=== PATIENT | female | born 2000 | race Two or more races ===

== ENCOUNTER 2025-01-04 09:44 | Outpatient (OUT) | payer BC, OTHER, SELFPAY ==
--- OUTSIDE RECORDS SUMMARY | 2023-12-31 10:00 | XMS_ITS | Continuity of Care Document ---
Author Organization [facility] Address [address] [place] [address] Phone Care Team Providers Care Weather Strip Installer Name Role Phone Edna Rodriguez Unavailable Unavailable [...] TOBACCO NON-USER [facility] [place] Dis Dec Resin Composite 1s; Posterior Prophylaxis Adult Moderate Risk [employer] [facility] [place] Dis Dec Oral Hygiene Instruction PSYTX PT&/FAMILY 60 MINUTES PSYTX PT&/FAMILY 60 MINUTES OFFICE/OUTPATIENT VISIT, EST HG A1C LEVEL < 7.0% TOBACCO NON-USER PSYTX PT&/FAMILY 60 MINUTES OFFICE/OUTPATIENT VISIT, EST MED LIST DOCD IN [facility] RVW MEDS BY RX/DR IN [facility] TOBACCO NON-USER PSYTX PT&/FAMILY 60 MINUTES Intraoral-complete Series (bw) Comp Oral Eval New/estab Patient 2023 Oral Hygiene Instruction PSYTX PT&/FAMILY 60 MINUTES OFFICE/OUTPATIENT VISIT, EST DIAST BP 80-89 MM HG SYST BP < 130 MM HG MED LIST DOCD IN [facility] RVW MEDS BY RX/DR IN [facility] TOBACCO NON-USER PSYTX PT&/FAMILY 60 MINUTES PSYTX PT&/FAMILY 60 MINUTES Advance Directives Directive Yes / No Effective Date File Name No Information Encounters Encounter Description Practice Location Reason(s) For Visit Diagnoses Date Provider Providers Copied on Encounter PSYTX PT&/FAMILY 60 MINUTES [facility], [address] [place] [address], [id number] , [place] [phone] [facility] Psychosis, unspecified psychosis typePTSD (post-traumatic stress disorder)Body mass index [BMI] 27.0-27.9, adultVitamin D deficiency, unspecified 4 Olman Bishop. [address] [place] [address], [id number], [place]. [phone] OFFICE/OUTPA TIENT VISIT, [facility], [address] [place] [address], [id number] , [place] tel:[phone] [facility] Telehealth (chief complaint) Psychosis, unspecified psychosis typePTSD (post-traumatic stress disorder)Body mass index [BMI] 27.0-27.9, adultVitamin D deficiency, unspecified 4 Bellstephen Martinodith. [address] [place], [address], [place]. tel: [phone] [facility], [address] [place] [address], [id number] , [place] tel: [phone] Dental Clinic fill (chief complaint) Encounter for screening for dental disorders 4 Jonh Parr. [address], [place], [id number] , [place]. tel: [phone] [facility], [address] [place] [address], [id number] , [place] tel: [phone] [facility] Dental Clinic [place] (chief complaint) Encounter for screening for dental disorders 4 Jonh Parr. [address], [place], [id number] , [place]. tel: [phone] PSYTX PT&/FAMILY 60 MINUTES [facility], [address] [place] [address], [id number] , [place] tel: [phone] [facility] Psychosis, unspecified psychosis typePTSD (post-traumatic stress disorder)Body mass index [BMI] 27.0-27.9, adultVitamin D deficiency, unspecified 4 Olman JENA Edna. [address] [place], [address], [place]. tel: [phone] PSYTX PT&/FAMILY 60 MINUTES [facility], [address] [place] [address], [id number] , [place] tel: [phone] [facility] Psychosis, unspecified psychosis typePTSD (post-traumatic stress disorder)Body mass index [BMI] 27.0-27.9, adultVitamin D deficiency, unspecified 4 Olman Snydercy. [address] [place] [address], [id number], [place]. tel: [phone] OFFICE/OUTPA TIENT VISIT, EST [facility], [address] [place] [address], [id number] , [place] tel: [phone] [facility] Telehealth (chief complaint) Psychosis, unspecified psychosis typePTSD (post-traumatic stress disorder)Body mass index [BMI] 27.0-27.9, adultVitamin D deficiency, unspecified 4 [facility][Note 2]. [address] [place] [address], [id number], . tel: [phone] PSYTX PT&/FAMILY 60 MINUTES [facility], [address] [place] [address], [id number] , [place] tel: [phone] [facility] Psychosis, unspecified psychosis typePTSD (post-traumatic stress disorder)Body mass index [BMI] 27.0-27.9, adult 4 Olman Bishop. [address] [place] [address], [id number], [place]. tel: [phone] OFFICE/OUTPA TIENT VISIT, [facility], [address] [place] [address], [id number] , [place] tel: [phone] [facility] Telehealth (chief complaint) Psychosis, unspecified psychosis typePTSD (post-traumatic stress disorder)Body mass index [BMI] 27.0-27.9, adult 4 [facility][Note 2]. [address] [place] [address], [id number], [place]. tel: [phone] PSYTX PT&/FAMILY 60 MINUTES [facility], [address] [place] [address], [id number] , [place] tel: [phone] [facility] Psychosis, unspecified psychosis typePTSD (post-traumatic stress disorder)Need for hepatitis C screening testScreening for diabetes mellitusScreening for endocrine disorderScreening for lipid disordersScreening for HIV (human immunodeficiency virus)Body mass index [BMI] 26.0-26.9, adultBody mass index [BMI] 27.0-27.9, adult 4 Olman Bishop. [address] [place] [address], [id number], [place]. tel: [phone] [facility], [address] [place] [address], [id number] , [place] tel: [phone] Dental Clinic DN (chief complaint) Body mass index [BMI] 27.0-27.9, adultEncounter for screening for dental disorders 4 Jonh Baumannal. [address], [place], [id number] , [place]. tel: [phone] [facility], [address] [place] [address], [id number] , [place] tel: [phone] [facility] Encounter for routine general gynecological examination without abnormal findingEncounter for gynecological examination (general) (routine) without abnormal findings 4 Ray Hurley. [address] [place] [address], [id number], [place]. tel: [phone] PSYTX PT&/FAMILY 60 MINUTES [facility], [address] [place] [address], [id number] , [place] tel: [phone] [facility] Psychosis, unspecified psychosis typePTSD (post-traumatic stress disorder)Need for hepatitis C screening testScreening for diabetes mellitusScreening for endocrine disorderScreening for lipid disordersScreening for HIV (human immunodeficiency virus)Body mass index [BMI] 26.0-26.9, adultBody mass index [BMI] 27.0-27.9, adult 4 Olman Bishop. [address] [place] [address], [id number], [place]. tel: [phone] OFFICE/OUTPA TIENT VISIT, EST [facility], [address] [place] [address], [id number] , [place] tel: [phone] [facility] Behavioral health (chief complaint) Need for hepatitis C screening testScreening for diabetes mellitusScreening for endocrine disorderScreening for lipid disordersScreening for HIV (human immunodeficiency virus)Body mass index [BMI] 26.0-26.9, adultPsychosis, unspecified psychosis typePTSD (post-traumatic stress disorder)Body mass index [BMI] 27.0-27.9, adult 4 Ray Hurley. [address] [place] [address], [address], [place]. tel: [phone] PSYTX PT&/FAMILY 60 MINUTES [facility], [address], [place], [id number] , [place] tel: [phone] [facility] Schizophrenia, unspecified 4 Olman Bishop. [address] [place], [address], [place]. tel: [phone] PSYTX PT&/FAMILY 60 MINUTES [facility], [address], [place], [id number] , [place] tel: [phone] [facility] Schizophrenia, unspecified 4 Olman Bishop. [address] [place], [address], [place]. tel: [phone] Family History Family Member Type Diagnosis Age [...] Order HIV 1/0/ 2 Ag/Ab with Reflex ([id number]), Ordered on: Ordered Future Order: Lab Order Hemoglob in A1c ([id number]), Ordered on: Ordered Future Order: Lab Order Lipid Pa jose alejandro ([id number]), Ordered on: Ordered Future Order: Lab Order TSH Rfx on Abnormal to Free T4 ([id number]), Ordered on: Ordered Future Order: Lab Order Vitamin D, 25-Hydroxy ([id number]), Ordered on: Ordered Future Order: Lab Order Vitamin B12 and Folate ([id number]), Ordered on: Ordered Future Order: Lab Order Ammonia, Plasma ([id number]), Ordered on: Ordered Future Order: Lab Order CBC With Differential/Platelet ([id number]), Ordered on: Ordered Future Order: Lab Order Comp. Me tabolic Panel (14) ([id number]), Ordered on: Ordered Future Order: Lab Order Abram gleason Drug Analysis, Ur ([id number]), Ordered on: Ordered Future Order: Lab Order HCV Anti body W/ Reflex To Quantitative Real Time Pcr ([id number]), Ordered on: Ordered History Of Present Illness [...] Edna Thurman. Pt sees Dr. Rodriguez at [facility] for PCP. Pt is UTD on Pap. [facility] in [place]. Pt denies homicidal thoughts. Admits to occasional [...]
--- OUTSIDE RECORDS SUMMARY | 2024-12-24 13:00 | XMS_ITS | Encounter Summary ---
Author Organization [facility] Address [address] [place] [address] Care Team Providers Care Back Tender Pulp Drier Name Role Phone Dru Rodriguez DO Primary Care Provider [phone] Dru Rodriguez DO Unavailable [phone] Encounter Details Date Type Department Care Team (Latest Contact Info) Description 12/24/2024 1:00 PM EDT Ancillary Procedure [facility] [place] [facility] [address] [place] [address] [place] [id number] Missed menses; Positive urine test ([facility]) Social History Tobacco Use Types Packs/Day Years Used Date Smoking Tobacco: Never Smokeless Tobacco: Never Alcohol Use Standard Drinks/Week Comments Not Currently 0 (1 standard drink = 0.6 oz pur e alcohol) Socially Humiliation, Afraid, Rape, and Kick questionnair e Answer Date Recorded Within the last year, have y ou been afraid of your partner or ex-partner? No 03/11/2023 Within the last year, have y ou been humiliated or emotionally abused in other ways by your partner or ex-partner? No Within the last year, have y ou been kicked, hit, slapped, or otherwise physically hurt by your partner or ex-partner? No 03/11/2023 Within the last year, have y ou been raped or forced to have any kind of sexual activity by your partner or ex-partner? No 03/11/2023 Social Connection and Isolat ion Panel [NHANES] Answer Date Recorded In a typical week, how many times do you talk on the phone with family, friends, or neighbors? More than three times a week 03/11/2023 How often do you get togethe r with friends or relatives? Twice a week 03/11/2023 How often do you attend chur or synagogue services? 1 to 4 times per year 03/11/2023 Do you belong to any clubs o r organizations such as scientology groups, unions, fraternal or athletic groups, or school groups? No 03/11/2023 How often do you attend meet ings of the clubs or organizations you belong to? Never 03/11/2023 Are you , , di vorced, , never , or living with a partner? 03/11/2023 AUDIT-C Answer Date Recorded Q1: How often do you have a drink containing alc ohol? Monthly or less 03/11/2023 Q2: How many drinks containi ng alcohol do you have on a typical day when you are drinking? 3 or 4 03/11/2023 Q3: How often do you have si x or more drinks on one occasion? Less than monthly 03/11/2023 Overall Financial Resource Strain (CARDIA) Answe r Date Recorded How hard is it for you to pa y for the very basics like food, housing, medical care, and heating? Somewhat hard 03/11/2023 PHQ-2 Answer Date Recorded Patient Health Questionnaire-2 Score 0 09/17/2024 [facility] - Occupational Stress Questionnaire Answer Date Recorded Do you feel stress - tense, restless, nervous, or anxious, or unable to sleep at night because your mind is troubled all the time - these days? Very much 03/11/2023 Exercise Vital Sign Answer Date Recorde d On average, how many days pe r week do you engage in moderate to strenuous exercise (like a brisk walk)? 4 days 03/11/2023 On average, how many minutes do you engage in exercise at this level? 80 min 03/11/2023 Hunger Vital Sign Answer Date Recorded Within the past 12 months, y ou worried that your food would run out before you got the money to buy more. Sometimes true Within the past 12 months, t he food you bought just didn't last and you didn't have money to get more. Never true 07/2022 PRAPARE - Transportation Answer Date Re corded In the past 12 months, has l ack of transportation kept you from medical appointments or from getting medications? No 07/2022 In the past 12 months, has l ack of transportation kept you from meetings, work, or from getting things needed for daily living? No 03/11/2023 Housing Stability Vital Sign Answer Jerome e Recorded In the last 12 months, was t here a time when you were not able to pay the mortgage or rent on time? No 03/11/2023 In the last 12 months, how many places have you lived? 1 03/11/2023 In the last 12 months, was t here a time when you did not have a steady place to sleep or slept in a jail (including now)? No 03/11/2023 Estimated Date of Delivery Comme nts Yes 08/06/2025 Based on last me nstrual period of 10/30/2024 Sex and Gender Information Value Date Recorded Sex Assigned at Female 11/08/2022 1:10 PM EDT Legal Sex Female 6:51 PM EDT Gender Identity Female 11/08/2022 1:10 PM EDT Sexual Orientation Bisexual 11/08/2022 1: 10 PM EDT documented as of this encounter Plan of Treatment Upcoming Encounters Date Type Department Care Team (Late st Contact Info) Description 01/25/2025 9:20 AM EDT Routine [facility] [address] [place] [id number] Kolton Cao DO [address] [place] [address] documented as of this encounter Procedures Procedure Name Priority Date/Time Associated Diagnosis Comments US OB TRANSVAGINAL Routine 12/24/2024 1: 17 PM EDT Missed menses Positive urine test ([facility]) documented in this encounter Results * US OB transvaginal (12/24/2024 1:17 PM EDT) Anatomical Region Laterality Modality Body Ultrasound 12/24/2024 1:25 PM EDT Impressions 12/24/2024 1:29 PM EDT Findings consistent with a live intrauterine gestation, current sonographic age of 7 weeks and days 3 resulting in an estimated date of delivery of August 09, 2025. TRANSCRIBED BY: ELECTRONICALLY SIGNED BY: Darius Adams MD Narrative 12/24/2024 1:29 PM EDT FINDINGS: A single intrauterine gestational sac is present. No subchorionic hemorrhage. A single pole is present. Normal heart rate at 153 beats per minute. Yolk sac also is seen. Current sonographic age is 7 weeks and 3 days based on the crown-rump length measurement of 1.3 cm. Based on this age, current estimated date of delivery is August 09, 2025. No pelvic fluid or adnexal mass present. Cervix closed 4.5 cm length. Procedure Note Darius Adams MD - 12/24/2024 FINDINGS: A single intrauterine gestational sac is present. No subchorionichemorrhage. A single pole is present. Normal heart rate at153 beats per minute. Yolk sac also is seen. Current sonographic age is7 weeks and 3 days based on the crown-rump length measurement of 1.3 cm.Based on this age, current estimated date of delivery is August 09, 2025.No pelvic fluid or adnexal mass present. Cervix closed 4.5 cm length. IMPRESSION: Findings consistent with a live intrauterine gestation, currentsonographic age of 7 weeks and days 3 resulting in an estimated date ofdelivery of August 09, 2025. TRANSCRIBED BY: ELECTRONICALLY SIGNED BY: Darius Adams MD us Kolton Cao DO IM OB US PROCEDURES Final Resul t documented in this encounter Visit Diagnoses Diagnosis Missed menses Positive urine test ([facility]) documented in this encounter Care Teams Back Tender Pulp Drier Relationship Specialty Start Date End Date Dru Rodriguez DO [address] [place] [address] PCP - General Family Medicine 10/22/22 Dru Rodriguez DO [address] [place] [address] PCP - Medical [place] [employer] 03/10/23 06/09/99 documented as of this encounter
--- OUTSIDE RECORDS SUMMARY | 2024-12-24 13:30 | XMS_ITS | Encounter Summary ---
Author Organization [facility] Address [address] [place] [address] Care Team Providers Care Cook Mess Name Role Phone Dru Rodriguez DO Primary Care Provider [phone] Dru Rodriguez DO Unavailable [phone] Reason for Visit * Reason Comments Amenorrhea Encounter Details Date Type Department Care Team (Late Contact Info) Description 12/24/2024 1:30 PM EDT Initial [facility] [address] [place] [address] [place] [address] [place]: [id number] Social History Tobacco Use Types Packs/Day Years [...] How often do you attend chur or religion services? 1 to 4 times per year 03/11/2023 Do you belong to any clubs o r organizations such as anglican groups, unions, fraternal or athletic groups, or [...] Recorded Patient Health Questionnaire-2 Score 0 09/17/2024 [facility]ational Stress Questionnaire Answer [...] place to sleep or slept in a senior living (including now)? No 03/11/2023 Estimated Date of Delivery Comme nts Yes 08/06/2025 Based on last me nstrual period of 10/30/2024 Sex and Gender Information Value Date Recorded Sex Assigned at Female 11/08/2022 1:10 PM EDT Legal Sex Female 6:51 PM EDT Gender Identity Female 11/08/2022 1:10 PM EDT Sexual Orientation Bisexual 11/08/2022 1: 10 PM EDT documented as of this encounter Last Filed Vital Signs Vital Sign Reading Time Taken Comments Blood Pressure 118/78 12/24/2024 1:59 PM EDT Pulse - - Temperature - - Respiratory Rate - - Oxygen Saturation - - Inhaled Oxygen Concentration - - Weight 63.2 kg (139 lb 4 oz) 12/24/2024 1:59 PM EDT Height - - Body Mass Index 29.1 09/17/2024 3:24 PM EDT documented in this encounter Progress Notes * Nicolasa Bailey MA - 12/24/2024 1:30 PM EDT Reason for Appointment: Patient ID: Dalia Shaw is a 24 y.o. female who presents for Amenorrhea Patient presents today for a Nurse OB Intake appointment. Patient is Unknown with a Estimated Date of Delivery: None noted. OB History Para Term AB Living 1 SAB IAB Ectopic Multiple Live Births # Outcome Date GA Lbr Gold/2nd Weight Sex Type Anes PTL Lv 1 Current Current Medications: has a current medication list which includes the following prescription(s): vit w/[id number], dexcom g6 transmitter, humalog, omnipod 5 [id number] pods gen 5, and lantus solostar. Medical History: Active Ambulatory Problems Diagnosis Date Noted Bulging lumbar disc 11/08/2022 Chronic fatigue 11/08/2022 Lumbago with sciatica, left side 11/08/2022 Sciatica 11/08/2022 Celiac disease in pediatric patient (HCC) 05/23/2016 Generalized anxiety disorder 01/01/2017 Mild intermittent asthma ([facility]) 05/23/2016 Panic disorder without agoraphobia 01/01/2017 Biliary dyskinesia 11/08/2022 Type 1 diabetes mellitus without complication ([facility]) 02/04/2023 Type 1 diabetes mellitus with hypoglycemia and without coma ([facility]) 02/04/2023 PTSD (post-traumatic stress disorder) 09/06/2023 Mixed obsessional thoughts and acts 09/13/2023 Diabetes type 1, controlled ([facility]) 01/25/2011 Resolved Ambulatory Problems Diagnosis Date Noted Blood blister 11/08/2022 Diabetic ketoacidosis associated with type 1 diabetes mellitus ([facility]) 02/22/2017 Hypoglycemia due to type 1 diabetes mellitus ([facility]) 11/08/2022 Other chronic pain 11/08/2022 Type 1 diabetes mellitus with ketoacidosis without coma ([facility]) 08/01/2016 Acute renal insufficiency 02/18/2017 Mechanical breakdown of insulin pump 02/18/2017 Right upper quadrant pain 11/08/2022 Chronic cholecystitis 11/29/2022 Past Medical History: Diagnosis Date Awareness under anesthesia 2015 covid and DKA 05/2021 Exercise-induced asthma (HCC) Lactose intolerance Postoperative wound infection Family History Problem Relation Name Age of Onset Drug abuse Mother Mary Melendez Asthma Father Bryan Melendez Arthritis Father Bryan Melendez Stroke Paternal Grandfather Cancer Other Stroke Other Stroke Maternal Grandmother Jackie Ashley Diabetes Sister Pj Meelndez Social History Tobacco Use Smoking status: Never Smokeless tobacco: Never Vaping Use Vaping status: Never Used Substance Use Topics Alcohol use: Not Currently Comment: Socially Drug use: Yes Frequency: 2.0 times per week Types: Marijuana Comment: Has not used any drugs other than those for medical reasons for the past 12 months Past Surgical History: Procedure Laterality Date CHOLECYSTECTOMY 11/2022 COLONOSCOPY 2015 normal EGD 2013 normal Allergies Allergen Reactions Amoxicillin Mouth irritation Vitals: Estimated body mass index is 29.1 kg/m?? as calculated from the following: Height as of 09/17/24: 4' 10 . Weight as of this encounter: 139 lb 4 oz. BP: 118/78 Patient's last menstrual period was 10/30/2024. Assessment/Plan Diagnoses and all orders for this visit: Missed menses - Type and screen; Future - ABO/Rh; Future - CBC and differential - Hemoglobin A1c - RPR - Rubella antibody, IgG - Hepatitis B surface antigen - Hepatitis C antibody - HIV-1 and HIV-2 antibodies - Urine culture - POCT , urine manually resulted - POCT urinalysis dipstick manually resulted , unspecified gestational age ([facility]HS-HCC) - Type and screen; Future - ABO/Rh; Future - CBC and differential - Hemoglobin A1c - RPR - Rubella antibody, IgG - Hepatitis B surface antigen - Hepatitis C antibody - HIV-1 and HIV-2 antibodies - Rapid drug screen, urine; Future Encounter for supervision of normal first in first trimester ([facility]) - Rapid drug screen, urine; Future OB Intake: Patient presents today for first OB visit. Patients history has been reviewed in great detail including any potential risks. Patient signed consent forms and patient desires testing in both trimesters. Patient currently has no complaints and has been advised to drink 6-8 glasses of water a day, eatno raw or undercooked meat, and stay away from [facility]. Patient has also been advised to not change litter boxes and eat 6 small meals a day. Patient has been consulted regarding the do's and don'ts ofpregnancy. Patient was given labs and all questions and concerns were answered. Follow Up: Patient is to have labs drawn at directed and return to office for initial OB appointment with provider. Patient may call office as needed with any concerns or questions. Nurse Visit Completed by: Nicolasa Bailey MA documented in this encounter Plan of Treatment Upcoming Encounters Date Type Department Care Team (Ariana st Contact Info) Description 01/25/2025 9:20 AM EDT Routine [facility] [address] [facility] [address] Kolton Cao DO [address] [place] [address] [place] [address] Scheduled Orders Name Type Priority Associated Diagnoses Orde r Schedule Type and screen Lab Routine Missed menses , unspecified gestational age ([facility]-HCC) Expected: 12/24/2024 (Approximate), Expires: 12/24/2025 ABO/Rh Lab Routine Missed menses , unspecified gestational age ([facility]HS-HCC) Expected: 12/24/2024 (Approximate), Expires: 12/24/2025 CBC and differential Lab Routine Missed menses , unspecified gestational age ([facility]HS-HCC) Ordered: 12/24/2024 Hemoglobin A1c Lab Routine Missed menses , unspecified gestational age (HHS-HCC) Ordered: 12/24/2024 RPR Lab Routine Missed menses , unspecified gestational age (HHS-HCC) Ordered: 12/24/2024 Rubella antibody, IgG Lab Routine Missed menses , unspecified gestational age (HHS-HCC) Ordered: 12/24/2024 Hepatitis B surface antigen Lab Routine Missed menses , unspecified gestational age (HHS-HCC) Ordered: 12/24/2024 Hepatitis C antibody Lab Routine Missed menses , unspecified gestational age (HHS-HCC) Ordered: 12/24/2024 HIV-1 and HIV-2 antibodies Lab Routine Missed menses , unspecified gestational age (HHS-HCC) Ordered: 12/24/2024 Urine culture Microbiology Routine Missed menses Ordered: 12/24/2024 Rapid drug screen, urine Lab Routine , unspecified gestational age (HHS-HCC) Encounter for supervision of normal first in first trimester ([facility]-HCC) Expected: 12/24/2024 (Approximate), Expires: 12/24/2025 documented as of this encounter Procedures Procedure Name Priority Date/Time Associated Diagnosis Comments POCT , URINE Routine 12/24/2024 2:02 PM EDT Missed menses POCT URINALYSIS DIPSTICK Routine 12/24/2024 2:01 PM EDT Missed menses documented in this encounter Results * (ABNORMAL) POCT , urine manually resulted (12/24/2024 2:02 PM EDT) Preg Test, Ur Positive Negative Urine 12/24/2024 2:02 PM EDT Kolton Kiley DO POINT OF CARE TEST ENTER/EDIT OR DERABLES Final Result * (ABNORMAL) POCT urinalysis dipstick manually resulted (12/24/2024 2:01 PM EDT) Color, UA Yellow Clarity, UA Clear Glucose, UA Negative Negative - 2000(110) ++++ mg/dL Bilirubin, UA Negative Negative - 4(70) +++ mg/dL Ketones, UA Negative Negative - 160(16) ++++ mg/dL Spec Grav, UA 1.010 1 - 1.03 Blood, UA Negative Negative - 50 Guy/mcL pH, UA 7.0 5 - 9 Protein, UA Negative Negative - 2000(20) ++++ mg/dL Urobilinogen, UA 0.2 0.2 - 12 mg/dL Leukocytes, UA Positive Negative - 500+++ Danny/mcL Comment:Small Nitrite, UA Negative Negative - Positive Urine 12/24/2024 2:01 PM EDT [facility] POINT OF CARE TEST ENTER/EDIT OR DERABLES Final Result documented in this encounter Visit Diagnoses Diagnosis Missed menses , unspecified gestational age ([facility]) Encounter for supervision of normal first in first trimester ([facility]) documented in this encounter Care Teams Cook Mess Relationship Specialty Start Date End Date Dru Rodriguez DO [address] [place] [address] PCP - General Family Medicine 10/22/22 Dru Rodriguez DO [address] [facility] [address] [place] [id number] PCP - Medical [employer] 03/10/23 06/09/99 documented as of this encounter
--- OUTSIDE RECORDS SUMMARY | 2025-01-04 09:53 | XMS_ITS | Encounter Summary ---
Author Organization [facility] Address [address] [place] [address] Care Team Providers Care Casting Molder Name Role Phone Dru Rodriguez DO Primary Care Provider [phone] Luisana Rodriguez DO Unavailable [phone] Dru Rodriguez DO Unavailable [phone] Encounter Details Date Type Department Care Team (Late Contact Info) Description 11/19/2022 Abstract [facility] [address] [id number] Jc Dacosta, DO [address] [address] Social History Tobacco Use Types Packs/Day Years Used Date Smoking Tobacco: Never Alcohol Use Standard Drinks/Week Comments Never 0 (1 standard drink = 0.6 oz pure alcohol) Drinks 1-2 cups of caffeine per day Comments Unknown Sex and Gender Information Value Date Recorded Sex Assigned at Female 11/08/2022 1:10 PM EDT Legal Sex Female 6:51 PM EDT Gender Identity Female 11/08/2022 1:10 PM EDT Sexual Orientation Bisexual 11/08/2022 1: 10 PM EDT COVID-19 Exposure Response Date Recorded In the last 10 days, have yo u been in contact with someone who was confirmed or suspected to have Coronavirus/COVID-19? No / Unsure 11/18/2022 11:08 PM EDT documented as of this encounter Plan of Treatment Upcoming Encounters Date Type Department Care Team (Late Contact Info) Description 01/25/2025 9:20 AM EDT Routine [facility] [address] [facility] [place] [id number] Kolton Cao DO [address] [facility] [place] [address] documented as of this encounter Visit Diagnoses Not on filedocumented in this encounter Care Teams Casting Molder Relationship Specialty Start Date End Date Dru Rodriguez DO [address] [place] [address] PCP - General Family Medicine 10/22/22 Luisana Rodriguez DO [address] [place] [address] PCP - [facility] 12/08/22 Dru Rodriguez, DO [address] [place] [address] PCP - Medical [employer] 03/10/23 06/09/99 documented as of this encounter
--- OUTSIDE RECORDS SUMMARY | 2025-01-04 09:54 | XMS_ITS | Encounter Summary ---
Author Organization [facility] Address [id number] [address] [place] [address] Care Team Providers Care Manager Respiratory Name Role Phone Dru Rodriguez Primary Care Provider [phone] Reason for Visit * Reason Comments Med Refill Encounter Details Date Type Department Care Team (Late st Contact Info) Description 05/28/2023 Refill [facility] [address] [place] [id number] Jenelle Lopez, LOGISTICS ANALYTICS MANAGER-[facility] [address] [place] [address] Encounter for initial prescription of contraceptive pills Social History Tobacco Use Types Packs/Day Years Used Date Smoking Tobacco: Never Smokeless Tobacco: Never Alcohol Use Standard Drinks/Week Comments Yes 0 (1 standard drink = 0.6 oz pur e alcohol) social Childcare Answer Date Recorded Childcare Unknown 11/19/2018 Employment Answer Date Recorded Employment Unknown 11/19/2018 Hunger Screening Answer Date Recorded Within the past 12 months we worried whether our food would run out before we got money to buy more. Never True 02/03/2023 Within the past 12 months th e food we bought just didn't last and we didn't have money to get more. Never True 02/03/2023 Purpose - Life Answer Date Recorded Purpose and direction in life Unknown Comments No Sex and Gender Information Value Date Recorded Sex Assigned at Not on file Legal Sex Female 11:58 AM EDT Gender Identity Not on file Sexual Orientation Not on file documented as of this encounter Plan of Treatment Not on file documented as of this encounter Visit Diagnoses Diagnosis Encounter for initial prescription of contraceptive pills documented in this encounter Additional Health Concerns Assessment Noted Time A Body Mass Index follow-up plan has been documented for the patient 04/02/2022 1:00 PM EDT documented as of this encounter Care Teams Manager Respiratory Relationship Specialty Start Date End Date Dru Rodriguez DO [address] [place] [address] PCP - General 01/01/17 documented as of this encounter
--- OUTSIDE RECORDS SUMMARY | 2025-01-04 09:54 | XMS_ITS | Clinical Summary ---
Author Organization [facility] Address [address] [place] [address] Care Team Providers Care Laboratory Coordinator Name Role Phone Dru Rodriguez DO Primary Care Provider [phone] Dru Rodriguez DO Unavailable [phone] Allergies Active Allergy Reactions Criticality Noted Date Comments Amoxicillin Low 05/23/2016 Mouth irritation Medications Continuous Blood Gluc Transmit (Dexcom G6 transmitter) miscIndications:T ype 1 diabetes mellitus without complication (HCC) Inject 1 each under the skin every 3 (three) months. Use as instructed 1 each 3 023 Active insulin glargine (Lantus SoloStar) 100 UNIT/ML penIndications:Ty pe 1 diabetes mellitus without complication (HCC) inject 22 units subcutaneously once daily 3 mL 1 024 Active Additional Information Patient taking differently: inject 22 units subcutaneously once daily- for pump failure, Reported on 09/17/2024 Insulin Disposable Pump (Omnipod 5 [id number] Pods Gen 5) miscIndications:T ype 1 diabetes mellitus without complication (HCC) Inject 1 each under the skin every 3 (three) days CHANGE POD EVERY 3 DAYS DIRECTED 30 each 3 025 Active HumaLOG 100 UNIT/ML solutionIndicatio ns:Type 1 diabetes mellitus without complication (HCC) USE PER INSULIN PUMP INSTRUCTION MAX OF 80 UNITS DAILY 30 mL 025 Active Vit w/Rn-Cdjtsjtns-OD (PNV PO) Take by mouth Active cholecalciferol (Vitamin D-3) 125 MCG (5000 UT) tablet Take 125 mcg by mouth Daily 024 2024 Discontinued ondansetron ODT (Zofran-ODT) 4 MG disintegrating tabletIndications :Nausea Take 1 tablet (4 mg) by mouth every 8 (eight) hours if needed for nausea or vomiting 30 tablet 1 2024 Discontinued clindamycin (Cleocin T) 1 % lotionIndications :Acne vulgaris Apply thin layer to affected areas on the body, once daily, 30 day supply 60 mL 2 024 2024 Discontinued tretinoin (Retin-A) 0.025 % creamIndications: Acne vulgaris Apply 1.5 g to face, once daily at evening/night time, 30 day supply 45 g 2 2024 Discontinued Active Problems Problem Noted Date Diagnosed Date Mixed obsessional thoughts and acts 09/13/2023 PTSD (post-traumatic stress disorder) 09/06/2023 Type 1 diabetes mellitus without complication Assessment & Plan (03/11/2024 7:46 PM EDT): During the appointment today all pertinent labs, imaging, health maintenance, and glucose readings were reviewed. Encouraged to check blood glucose throughout the day with some fasting and some PP readings. They are to bring their glucose meter/cgm in to all appointments. All of the patients questions, treatment options, and current care plan and goals were discussed. A copy of this along with pertinent instructions were given to the patient at the end of the appointment. The patient voices understanding of all of this and is to call in between appointments if they have any problems or questions. Dalia Tobar is doing very well and encouraged on this. , Will stay on current medications. , The patient is wearing their cgm on a daily basis and making decisions in regards to adjusting insulin daily as well for at least the last 60 days , Instructions given today include: Pump instructions and Dietary education Assessment & Plan (08/22/2023 12:07 PM EDT): During the appointment today all pertinent labs, imaging, health maintenance, and glucose readings were reviewed. Encouraged to check blood glucose throughout the day with some fasting and some PP readings. They are to bring their glucose meter/cgm in to all appointments. All of the patients questions, treatment options, and current care plan and goals were discussed. A copy of this along with pertinent instructions were given to the patient at the end of the appointment. The patient voices understanding of all of this and is to call in between appointments if they have any problems or questions. Dalia Tobar control is stable overall. , Will stay on current medications. , The patient is wearing their cgm on a daily basis and making decisions in regards to adjusting insulin daily as well for at least the last 60 days , Discussed dietary changes at length. Encouraged to limit simple carbs and focus more on healthy protein/fat with all meals and snacks. They should also avoid any sugary drinks. She has to avoid sugary drinks and get more protein in her diet. She is to work on bolusing before all meals and snacks. Assessment & Plan (05/19/2023 11:30 AM EST): During the appointment today all pertinent labs, imaging, health maintenance, and glucose readings were reviewed. Encouraged to check blood glucose throughout the day with some fasting and some PP readings. They are to bring their glucose meter/cgm in to all appointments. All of the patients questions, treatment options, and current care plan and goals were discussed. A copy of this along with pertinent instructions were given to the patient at the end of the appointment. The patient voices understanding of all of this and is to call in between appointments if they have any problems or questions. Dalia Shaw is doing very well and encouraged on this. , Will stay on current medications. Assessment & Plan (02/04/2023 11:29 AM EDT): During the appointment today all pertinent labs, imaging, health maintenance, and glucose readings were reviewed. Encouraged to check blood glucose throughout the day with some fasting and some PP readings. They are to bring their glucose meter/cgm in to all appointments. All of the patients questions, treatment options, and current care plan and goals were discussed. A copy of this along with pertinent instructions were given to the patient at the end of the appointment. The patient voices understanding of all of this and is to call in between appointments if they have any problems or questions. Dalia Elizabeth Liliannatalie is doing very well and encouraged on this. , Instructions given today include: Pump instructions and Dietary education. She is to keep working on counting carbs/portion sizes and will stay with current pump settings. Type 1 diabetes mellitus with hypoglycemia and w ithout coma 02/04/2023 Bulging lumbar disc 11/08/2022 Chronic fatigue 11/08/2022 Lumbago with sciatica, left side 11/08/2022 Sciatica 11/08/2022 Biliary dyskinesia 11/08/2022 Generalized anxiety disorder 01/01/2017 Panic disorder without agoraphobia 01/01/2017 Celiac disease in pediatric patient 05/23/2016 Mild intermittent asthma 05/23/2016 Diabetes type 1, controlled 01/25/2011 Estimated Date of Delivery Comme nts Yes 08/06/2025 Based on last me nstrual period of 10/30/2024 Resolved Problems Problem Noted Date Diagnosed Date Resolved Date Chronic cholecystitis 11/29/20222023 Blood blister 11/08/2022 08/05/2023 Hypoglycemia due to type 1 diabetes mellitus 3 02/04/2023 Other chronic pain 11/08/2022 Right upper quadrant pain 11/08/2022 Diabetic ketoacidosis associ ated with type 1 diabetes mellitus 02/22/2017 02/04/2023 Acute renal insufficiency 02/18/2017 Mechanical breakdown of insulin pump 02/18/2017 08/05/2023 Type 1 diabetes mellitus wit h ketoacidosis without coma 08/01/2016 02/04/2023 Encounters Date Type Department Care Team Description 12/24/2024 1:30 PM EDT Initial [facility] [address] [place] [phone] [place]: 7w6d 12/24/2024 1:00 PM EDT Ancillary Procedure [facility] [address] [facility] [place] [phone] Missed menses; Positive urine test ([facility]) 12/17/2024 Travel 12/16/2024 Abstract [facility] [address] [place] [address] Dru Rodriguez, DO 11/03/2024 Abstract [facility] [address] [place] [address] Dru Rodriguez, DO 11/03/2024 Orders Only [facility] [address] [place] [address] Dru Rodriguez, DO 11/03/2024 Abstract [facility] [address] [place] [address] Dru Rodriguez, DO 11/03/2024 Abstract [facility] [address] [place] [address] Dru Rodriguez, DO 11/03/2024 Abstract [facility] [address] [place] [address] Dru Rodriguez, DO 11/03/2024 Abstract [facility] [address] [place] [address] Dru Rodriguez, DO 11/03/2024 Abstract [facility] [address] [place] [address] Dru Rodriguez, DO 10/15/2024 Telephone [facility] [address] [place] [address] Rocío Lombardo LPN no show fee 10/08/2024 Refill [facility] [address] [place] [address] Luisana Rodriguez, Type 1 diabetes mellitus without complication (HCC) from Last 3 Months Immunizations Immunization Administration Dates Next Due DTP 03/18/2008 DTaP 03/02/2004 DTaP, Unspecified 12/20/2005, 3,2001,08/05 HPV, Quadrivalent 08/27/2013, 4,04/06/2013,03/02 Hep B, Adolescent or Pediatric 11/24/2002,2001,2001 HiB, unspecified 11/24/2002,2001, 2 Hib (PRP-T) 03/02/2004 IPV 03/18/2008,12/20/2005,2001 Influenza, injectable, quadrivalent 07/05/2020 Influenza, injectable, quadr ivalent, preservative free 06/12/2023,05/11/2022 MMR 03/18/2008,12/20/2005,11/24/2002 Meningococcal MCV4P 01/22/2018,03/02/2013 PPD Test 06/12/2023, 3,05/18/2022,05/11 Pneumococcal Conjugate PCV 7 2001 Polio, Unspecified 11/24/2002,2001 Tdap 05/30/2023,03/02/2013 Varicella 05/30/2023, 3,03/18/2008,12/20 Family History Medical History Relation Name Comments Arthritis Father rByan Melendez Asthma Father Bryan Melendez Stroke Maternal Grandmother Jackie Ramirez Drug abuse Mother Mary Melendez Cancer Other Stroke Other Stroke Paternal Grandfather Diabetes Sister 2 Malkavernon Melendez Relation Name Status Comments Brother x3 Father Bryan Melendez Alive Maternal Grandmother Jackie Ramirez Mother Mary Melendez Other Half Brother Paternal Grandfather Sister 1 x2 Sister 2 Sharonaldair Al Social History Tobacco Use Types Packs/Day Years Used Date Smoking Tobacco: Never Smokeless Tobacco: Never Tobacco Cessation:Counseling Given: No Alcohol Use Standard Drinks/Week Comments Not Currently [...] How often do you attend chur or congregational services? 1 to 4 times per year 03/11/2023 Do you belong to any clubs o r organizations such as anabaptist groups, unions, fraternal or athletic groups, or [...] Recorded Patient Health Questionnaire-2 Score 0 09/17/2024 [facility] [place] [facility] Occupat [facility] - Occupational Stress [...] place to sleep or slept in a snf (including now)? No 03/11/2023 Estimated Date of Delivery Comme nts Yes 08/06/2025 Based on last me nstrual period of 10/30/2024 Sex and Gender Information Value Date Recorded Sex Assigned at Female 11/08/2022 1:10 PM EDT Legal Sex Female 6:51 PM EDT Gender Identity Female 11/08/2022 1:10 PM EDT Sexual Orientation Bisexual 11/08/2022 1: 10 PM EDT Last Filed Vital Signs Vital Sign Reading Time Taken Comments Blood Pressure 118/78 12/24/2024 1:59 PM EDT Pulse 90 09/17/2024 3:24 PM EDT Temperature 36.7 C (98 F) 09/17/2024 3:24 PM EDT Respiratory Rate - - Oxygen Saturation 97% 09/17/2024 3:24 PM EDT Inhaled Oxygen Concentration - - Weight 63.2 kg (139 lb 4 oz) 12/24/2024 1:59 PM EDT Height 147.3 cm (4' 10 ) 09/17/2024 3:24 PM EDT Body Mass Index 29.1 09/17/2024 3:24 PM EDT Plan of Treatment Upcoming Encounters Date Type Department Care Team (Late st Contact Info) Description 01/25/2025 9:20 AM EDT Routine [facility] [address] [facility] [place] [address] Kolton Cao, [address] [place] [address] Health Maintenance Due Date Last Done Comments Diabetes: Retinopathy Screening 06/30/2021 0 Diabetes: Urine Protein Screening 11/10/2024 11/11/2023, 11/11/2023, 11/11/2023, Additional history exists Diabetes: Hemoglobin A1C 01/28/2025 025, 03/10/2024, 11/11/2023, Additional history exists Influenza Vaccine (#1) 2025 4, 06/12/2023, 05/11/2022, Additional history exists Goals Goal Patient Goal Type Associated Problems Recent Progress Patient-Stated? Author Reminders Care Plan OB Reminders No Open Scheduling, Background Procedures Procedure Name Priority Date/Time Associated Diagnosis Comments POCT , URINE Routine 12/24/2024 2:02 PM EDT Missed menses POCT URINALYSIS DIPSTICK Routine 12/24/2024 2:01 PM EDT Missed menses US OB TRANSVAGINAL Routine 12/24/2024 1: 17 PM EDT Missed menses Positive urine test [facility]) HEMOGLOBIN A1C Routine 10/28/2024 1:01 PM EDT MICROALBUMIN / CREATININE URINE RATIO Routine 11/11/2023 2:01 PM EDT COLOR FUNDUS PHOTOGRAPHY - OU - BOTH EYES Routine 06/30/2019 12:00 PM EST from Last 3 Months or Most Recently Relevant to Health Maintenance Results * (ABNORMAL) POCT , urine manually resulted (12/24/2024 2:02 PM EDT) Preg Test, Ur Positive Negative Urine 12/24/2024 2:02 PM EDT [facility] DO POINT OF CARE TEST ENTER/EDIT [...] - Positive Urine 12/24/2024 2:01 PM EDT [facility] POINT OF CARE TEST ENTER/EDIT OR DERABLES Final Result * US OB transvaginal (12/24/2024 1:17 PM [...] BY: ELECTRONICALLY SIGNED BY: Darius Adams MD Kolton Cao DO IMG OB US PROCEDURES Final Resul t * Hemoglobin A1c (10/28/2024 1:01 PM EDT) Blood Venous blood specimen / Unknown us Dru Rodriguez DO LAB BLOOD ORDERABLES Final Result * Microalbumin / creatinine urine ratio (11/11/2023 2:01 PM EDT) MICROALBUMIN, URINE 1.0 0.0 - 1.9 mg/dL [facility] URINE CREAT 183.98 mg/dL [facility] ALB/CREAT RATIO 5.4 0.0 - 30.0 mg/g creat [facility] Comment:PERFORMED AT [facility] [address],[place] [address] 11/11/2023 2:01 PM EDT 11/11/2023 2:03 PM EDT us Luisana Rodriguez DO LAB URINE ORDERABLES Final Result [facility] * Color Fundus Photography - OU - Both Eyes (06/30/2019 12:00 PM EST) Anatomical Region Laterality Modality Head Fundus Photograp hy 06/30/2019 12:0 0 PM EST Narrative 07/01/2019 12:00 PM EST PERFORMED AT [facility] LOCATION:[id number] Procedure Note CONVERSION, GENERIC - 10/24/2022 PERFORMED AT [facility] LOCATION:[id number] us Dru Rodriguez DO OPHTH PHOTOGRAPHY Final Re sult from Last 3 Months or Most Recently Relevant to Health Maintenance Additional Health Concerns Active Problems Noted Date Diagnosed Date OB Reminders 12/31/2024 Insurance [facility] Care Teams Laboratory Coordinator Relationship Specialty Start Date End Date Dru Rodriguez DO [address] [place] [address] PCP - General Family Medicine 10/22/22 Dru Rodriguez DO [address] [place] [address] PCP - Medical [place] [employer] 03/10/23 06/09/99
--- OUTSIDE RECORDS SUMMARY | 2025-01-04 09:54 | XMS_ITS | Encounter Summary ---
Author Organization [facility] Address [address] [place] [address] Care Team Providers Care Equipment Hire Manager Name Role Phone Dru Rodriguez DO Primary Care Provider [phone] Dru Rodriguez DO Unavailable [phone] Encounter Details Date Type Department Care Team (Late st Contact Info) Description 11/03/2024 [facility] [address] [facility] [address] [place] [phone] Dru Rodriguez, DO [address] [facility] [address] [place] [address] Social History Tobacco Use Types Packs/Day Years [...] 03/11/2023 How often do you attend chur ch or restorationism services? 1 to 4 times per year 03/11/2023 Do you belong to any clubs o r organizations such as jehovah's witness groups, unions, fraternal or athletic groups, or [...] Recorded Patient Health Questionnaire-2 Score 0 09/17/2024 [facility] - Occupational Stress Questionnaire Answer Date Recorded [...] place to sleep or slept in a halfway (including now)? No 03/11/2023 Comments Unknown Sex and Gender Information Value [...] 01/25/2025 9:20 AM EDT Routine [facility] [address] [facility] [address] Kolton Cao DO [address] [facility] [address] [place], [place] [address] documented as of this encounter Visit Diagnoses Not on filedocumented in this encounter Care Teams Equipment Hire Manager Relationship Specialty Start Date End Date Dru Rodriguez DO [address] [place] [address] PCP - General Family Medicine 10/22/22 Dru Rodriguez DO [address] [place] [address] PCP - Medical [place] [employer] 03/10/23 06/09/99 documented as of this encounter
--- OUTSIDE RECORDS SUMMARY | 2025-01-04 09:54 | XMS_ITS | Encounter Summary ---
Author Organization [facility] Address [address] [place] [address] Care Team Providers Care Solutions Executive Cloud Sales Name Role Phone Dru Rodriguez DO Primary Care Provider + [phone] Luisana Rodriguez DO Unavailable [phone] Dru Rodriguez DO Unavailable [phone] Encounter Details Date Type Department Care Team (Late st Contact Info) Description 09/25/2022 Abstract [facility] [address] [id number] Jc Dacosta DO [address] [address] Social History Tobacco Use Types Packs/Day Years Used Date Smoking Tobacco: Never Assessed Comments Unknown Sex and Gender Information Value [...] AM EDT Routine [facility] [address] [facility] [place] [phone] Kolton Cao DO [address] [facility] [address] [place], [place] [address] documented as of this encounter Visit Diagnoses Not on filedocumented in this encounter Care Teams Solutions Executive Cloud Sales Relationship Specialty Start Date End Date Dru Rodriguez DO [address] [place] [address] PCP - General Family Medicine 10/22/22 Luisana Rodriguez DO [address] [place] [address] PCP - [facility] 12/08/22 Dru Rodriguez DO [address] [place] [address] PCP - Medical [facility] 03/10/23 06/09/99 documented as of this encounter
--- OUTSIDE RECORDS SUMMARY | 2025-01-04 09:54 | XMS_ITS | Encounter Summary ---
Author Organization [facility] Address [address] [place] [address] Care Team Providers Care Metal Sander Name Role Phone Dru Rodriguez DO Primary Care Provider [phone] Dru Rodriguez DO Unavailable [phone] Encounter Details Date Type Department Care Team (Late st Contact Info) Description 11/03/2024 [facility] [address] [facility] [address] [place] [address] Dru Rodriguez, DO [address] [facility] [address] [place] [address] Social History Tobacco Use Types Packs/Day Years [...] often do you attend chur ch or adventist services? 1 to 4 times per year 03/11/2023 Do you belong to any clubs o r organizations such as hindu groups, unions, fraternal or athletic groups, or [...] Recorded Patient Health Questionnaire-2 Score 0 09/17/2024 [facility] - Occupational Stress Questionnaire Answer Date Recorded [...] place to sleep or slept in a custodial (including now)? No 03/11/2023 Comments Unknown Sex [...] AM EDT Routine [facility] [address] [facility] [address] Kolton Cao DO [address] [facility] [address] [place] [place], [place] [address] documented as of this encounter Visit Diagnoses Not on filedocumented in this encounter Care Teams Metal Sander Relationship Specialty Start Date End Date Dru Rodriguez DO [address] [place] [address] PCP - General Family Medicine 10/22/22 Dru Rodriguez DO [address] [place] [address] PCP - Medical [place] [employer] 03/10/23 06/09/99 documented as of this encounter
--- OUTSIDE RECORDS SUMMARY | 2025-01-04 09:54 | XMS_ITS | Encounter Summary ---
Author Organization [facility] Address [address] [place] [address] Care Team Providers Care Senior Research Project Manager Name Role Phone Dru Rodriguez DO Primary Care Provider [phone] Dru Rodriguez DO Unavailable [phone] Encounter Details Date Type Department Care Team (Late st Contact Info) Description 11/03/2024 [facility] [address] [facility] [address] [place] [address] Dru Rodriguez, DO [address] [facility] [address] [place] [address] Social History Tobacco Use Types Packs/Day Years [...] often do you attend chur ch or gnosticist services? 1 to 4 times per year 03/11/2023 Do you belong to any clubs o r organizations such as pentecostalism groups, unions, fraternal or athletic groups, or [...] Recorded Patient Health Questionnaire-2 Score 0 09/17/2024 [facility] - Occupational Stress Questionnaire Answer Date [...] place to sleep or slept in a half-way (including now)? No 03/11/2023 Comments Unknown Sex [...] AM EDT Routine [facility] [address] [facility] [place] [address] Kolton Cao DO [address] [facility] [address] [place] [place], [place] [address] documented as of this encounter Visit Diagnoses Not on filedocumented in this encounter Care Teams Senior Research Project Manager Relationship Specialty Start Date End Date Dru Rodriguez DO [address] [place] [address] PCP - General Family Medicine 10/22/22 Dru Rodriguez DO [address] [place] [address] PCP - Medical [place] [employer] 03/10/23 06/09/99 documented as of this encounter
--- OUTSIDE RECORDS SUMMARY | 2025-01-04 09:54 | XMS_ITS | Encounter Summary ---
Author Organization [facility] Address [address] [place] [address] Care Team Providers Care Workers Compensation Claims Assistant Name Role Phone Dru Rodriguez DO Primary Care Provider [phone] Dru Rodriguez DO Unavailable [phone] Encounter Details Date Type Department Care Team (Late st Contact Info) Description 12/16/2024 [facility] [address] [facility] [address] [place] [address] Dru Rodriguez, DO [address] [facility] [address] [place] [address] Social History Tobacco Use Types Packs/Day Years [...] often do you attend chur ch or mu-ism services? 1 to 4 times per year 03/11/2023 Do you belong to any clubs o r organizations such as faith groups, unions, fraternal or athletic groups, or [...] Recorded Patient Health Questionnaire-2 Score 0 09/17/2024 [facility] - Occupational Stress Questionnaire Answer Date [...] AM EDT Routine [facility] [address] [facility] [place] [address] Kolton Cao DO [address] [facility] [address] [place], [place] [address] documented as of this encounter Visit Diagnoses Not on filedocumented in this encounter Care Teams Workers Compensation Claims Assistant Relationship Specialty Start Date End Date Dru Rodriguez DO [address] [place] [address] PCP - General Family Medicine 10/22/22 Dru Rodriguez DO [address] [place] [address] PCP - Medical [place] [employer] 03/10/23 06/09/99 documented as of this encounter
--- OUTSIDE RECORDS SUMMARY | 2025-01-04 09:54 | XMS_ITS | Encounter Summary ---
Author Organization [facility] Address [address] [place] [address] Care Team Providers Care Attendant Arcade Name Role Phone Dru Rodriguez DO Primary Care Provider + [phone] Luisana Rodriguez DO Unavailable +[phone] Dru Rodriguez DO Unavailable [phone] Encounter Details Date Type Department Care Team (Late st Contact Info) Description 04/30/2023 [facility] [address] [facility] [address] [place] [address] Dru Rodriguez, DO [address] [facility] 230 [place] [address] Social History Tobacco Use Types Packs/Day Years [...] often do you attend chur ch or yarsanism services? 1 to 4 times per year 03/11/2023 Do you belong to any clubs o r organizations such as moravian groups, unions, fraternal or athletic groups, or [...] Date Recorded Patient Health Questionnaire-2 Score 0 03/11/2023 [facility]ational [facility] Questionnaire Answer Date [...] place to sleep or slept in a residential (including now)? No 03/11/2023 Comments Unknown Sex [...] AM EDT Routine [facility] [address] [facility] [place] [address] Kolton Cao DO [address] [facility] [place] [address] documented as of this encounter Visit Diagnoses Not on filedocumented in this encounter Care Teams Attendant Arcade Relationship Specialty Start Date End Date Dru Rodriguez DO [address] [place] [address] PCP - General Family Medicine 10/22/22 Luisana Rodriguez DO [address] [place] [address] PCP - [facility] 12/08/22 Dru Rodriguez DO [address] [place] [address] PCP - Medical [place] [employer] 03/10/23 06/09/99 documented as of this encounter
--- OUTSIDE RECORDS SUMMARY | 2025-01-04 09:54 | XMS_ITS | Encounter Summary ---
Author Organization [facility] Address [address] [place] [address] Care Team Providers Care Blast Furnace Auxiliaries Supervisor Name Role Phone Dru Rodriguez DO Primary Care Provider + [phone] Luisana Rodriguez DO Unavailable [phone] Dru Rodriguez DO Unavailable [phone] Encounter Details Date Type Department Care Team (Late st Contact Info) Description 03/11/2023 Abstract [facility] [address] [facility] [address] [place] [address] Dru Rodriguez, DO [address] [facility] 230 [place] [address] Social History Tobacco Use Types Packs/Day Years [...] often do you attend chur ch or hinduism services? 1 to 4 times per year 03/11/2023 Do you belong to any clubs o r organizations such as advent groups, unions, fraternal or athletic groups, or [...] Recorded Patient Health Questionnaire-2 Score 0 03/11/2023 [facility] Questionnaire Answer Date [...] suspected to have Coronavirus/COVID-19? No / Unsure 03/11/2023 12:57 AM EDT documented as of this encounter Functional Status * Audit-C Score Answer Date of Assessment Author 3 03/11/2023 12:56 AM EDT Virgilio, Generic * Q1: How often do you have a drink containing alcohol? Answer Date of Assessment Author Monthly or less 03/11/2023 12:56 AM EDT Virgilio Generic * Q2: How many drinks containing alcohol do you have on a typical day when you are drinking? Answer Date of Assessment Author 3 or 4 03/11/2023 12:56 AM EDT Virgilio, Generic * Q3: How often do you have six or more drinks on one occasion? Answer Date of Assessment Author Less than monthly 03/11/2023 12:56 AM EDT Mychar t, Generic * Over the past 2 weeks, how often have you been bothered by any of the following problems? Question Answer Date of Assessment Author Little interest or pleasure in doing things Not at all 03/11/2023 10:23 AM EDT Lesa Boss LPN Feeling down, depressed, or hopeless Not at all 03/11/2023 10:23 AM EDT Susana Boss LPN Patient Health Questionnaire-2 Score 0 03/11/2023 10:23 AM EDT Olya Boss LPN documented as of this encounter Plan of Treatment Upcoming Encounters Date Type Department Care Team (Late st Contact Info) Description 01/25/2025 9:20 AM EDT Routine [facility] [address] [facility] [place] [address] Kolton Cao DO [address] [facility] [address] [place], [place] [id number] documented as of this encounter Visit Diagnoses Not on filedocumented in this encounter Care Teams Blast Furnace Auxiliaries Supervisor Relationship Specialty Start Date End Date Dru Rodriguez DO [address] [place] [address] PCP - General Family Medicine 10/22/22 Luisana Rodriguez DO [address] [place] [address] PCP - [facility] 12/08/22 Dru Rodriguez DO [address] [place] [address] PCP - Medical [place] [employer] 03/10/23 06/09/99 documented as of this encounter
--- OUTSIDE RECORDS SUMMARY | 2025-01-04 09:54 | XMS_ITS | Encounter Summary ---
Author Organization [facility] Address [address] [place] [address] Care Team Providers Care Handy Worker Name Role Phone Dru Rodriguez DO Primary Care Provider +1- [phone] Dru Rodriguez DO Unavailable [phone] Encounter Details Date Type Department Care Team (Late st Contact Info) Description 11/03/2024 [facility] [address] [facility] [address] [place] [address] Dru Rodriguez, DO [address] [facility] [address] [place] [address] Social History Tobacco Use Types Packs/Day Years [...] often do you attend chur ch or gnosticism services? 1 to 4 times per year [...] Recorded Patient Health Questionnaire-2 Score 0 09/17/2024 [facility] - Occupational Stress Questionnaire Answer Date [...] a senior living (including now)? No 03/11/2023 Comments Unknown Sex [...] AM EDT Routine [facility] [address] [facility] [address] Kolton Cao DO [address] [facility] [address] [place], [place] [address] documented as of this encounter Visit Diagnoses Not on filedocumented in this encounter Care Teams Handy Worker Relationship Specialty Start Date End Date Dru Rodriguez DO [address] [place] [address] PCP - General Family Medicine 10/22/22 Dru Rodriguez DO [address] [place] [address] PCP - Medical [place] [employer] 03/10/23 06/09/99 documented as of this encounter
--- OUTSIDE RECORDS SUMMARY | 2025-01-04 09:54 | XMS_ITS | Encounter Summary ---
Author Organization [facility] Address [address] [place] [address] Care Team Providers Care Motor Mechanic Name Role Phone Dru Rodriguez DO Primary Care Provider +1- [phone] Dru Rodriguez DO Unavailable [phone] Encounter Details Date Type Department Care Team (Late st Contact Info) Description 11/03/2024 Abstract [facility] [address] [facility] [address] [place] [address] Dru Rodriguez, DO [address] [facility] [address] [place] [address] Social History Tobacco Use Types Packs/Day Years [...] often do you attend chur ch or jehovah's witness services? 1 to 4 times per year 03/11/2023 Do you belong to any clubs o r organizations such as presybeterian groups, unions, fraternal or athletic groups, or [...] Questionnaire-2 Score 0 09/17/2024 [facility] - Occupational Stress Questionnaire Answer Date Recorded [...] AM EDT Routine [facility] [address] [facility] [place] [address] Kolton Cao DO [address] [facility] [address] [place], [place] [address] documented as of this encounter Visit Diagnoses Not on filedocumented in this encounter Care Teams Motor Mechanic Relationship Specialty Start Date End Date Dru Rodriguez DO [address] [place] [address] PCP - General Family Medicine 10/22/22 Dru Rodriguez DO [address] [place] [address] PCP - Medical [place] [employer] 03/10/23 06/09/99 documented as of this encounter
--- OUTSIDE RECORDS SUMMARY | 2025-01-04 09:54 | XMS_ITS | Encounter Summary ---
Author Organization [facility] Address [address] [place] [address] Care Team Providers Care Voice Network Administrator Name Role Phone Dru Rodriguez DO Primary Care Provider + [phone] Luisana Rodriguez DO Unavailable [phone] Dru Rodriguez DO Unavailable [phone] Encounter Details Date Type Department Care Team (Late st Contact Info) Description 04/30/2023 Abstract [facility] [address] [facility] [address] [place] [address] Dru Rodriguez, DO [address] [facility] 230 [place] [address] Social History Tobacco Use Types Packs/Day Years [...] often do you attend chur ch or oriental orthodox services? 1 to 4 times per year 03/11/2023 Do you belong to any clubs o r organizations such as mormonism groups, unions, fraternal or athletic groups, or [...] Recorded Patient Health Questionnaire-2 Score 0 03/11/2023 [facility]ational [facility] Questionnaire Answer Date [...] place to sleep or slept in a nursing home (including now)? No 03/11/2023 Comments Unknown Sex [...] AM EDT Routine [facility] [address] [facility] [place] [address] Kolton Cao DO [address] [facility] [place] [address] documented as of this encounter Visit Diagnoses Not on filedocumented in this encounter Care Teams Voice Network Administrator Relationship Specialty Start Date End Date Dru Rodriguez DO [address] [place] [address] PCP - General Family Medicine 10/22/22 Luisana Rodriguez DO [address] [place] [address] PCP - [facility] 12/08/22 Dru Rodriguez DO [address] [place] [address] PCP - Medical [place] [employer] 03/10/23 06/09/99 documented as of this encounter
--- OUTSIDE RECORDS SUMMARY | 2025-01-04 09:54 | XMS_ITS | Encounter Summary ---
Author Organization [facility] Address [address] [place] [address] Care Team Providers Care Spindle Tester Name Role Phone Dru Rodriguez DO Primary Care Provider + [phone] Luisana Rodriguez DO Unavailable [phone] Dru Rodriguez DO Unavailable [phone] Encounter Details Date Type Department Care Team (Late st Contact Info) Description 02/04/2023 Abstract [facility] [address] [facility] 230 [place] [address] Luisana Rodriguez, DO [address] [facility] 230 [place] [address] Social History Tobacco Use Types Packs/Day Years Used Date Smoking Tobacco: Never Smokeless Tobacco: Never Alcohol Use Standard Drinks/Week Comments Yes 0 (1 standard drink = 0.6 oz pur e alcohol) Socially AUDIT-C Answer Date Recorded Q1: How often do you have a drink containing alcohol? Never 02/04/2023 Q2: How many drinks containi ng alcohol do you have on a typical day when you are drinking? Patient does not drink Q3: How often do you have si x or more drinks on one occasion? Never 02/04/2023 PHQ-2 Answer Date Recorded Patient Health Questionnaire-2 Score 0 02/04/2023 Comments Unknown Sex and Gender Information Value Date Recorded Sex Assigned at Female 11/08/2022 1:10 PM EDT Legal Sex Female 6:51 PM EDT Gender Identity Female 11/08/2022 1:10 PM EDT Sexual Orientation Bisexual 11/08/2022 1: 10 PM EDT documented as of this encounter Functional Status * Audit-C Score Answer Date of Assessment Author 0 02/04/2023 9:56 AM Albert Yin LPN * Question Answer Date of Assessment Author Q1: How often do you have a drink containing alcohol? Never 02/04/2023 9:56 AM Rocío Yin LPN Q2: How many drinks containing alcohol do you have on a typical day when you are drinking? Patient does not drink 02/04/2023 9:56 AM Rocío Yin LPN Q3: How often do you have six or more drinks on one occasion? Never 02/04/2023 9:56 AM Rocío Yin LPN * Over the past 2 weeks, how often have you been bothered by any of the following problems? Question Answer Date of Assessment Author Little interest or pleasure in doing things Not at all 02/04/2023 9:56 AM Rocío Yin LPN Feeling down, depressed, or hopeless Not at all 02/04/2023 9:56 AM Rocío Yin LPN Patient Health Questionnaire-2 Score 0 02/04/2023 9:56 AM Malik Yin LPN documented as of this encounter Plan of Treatment Upcoming Encounters Date Type Department Care Team (Late st Contact Info) Description 01/25/2025 9:20 AM EDT Routine [facility] [address] [facility] [place] [address] Kolton Cao DO [address] [place] [address] documented as of this encounter Visit Diagnoses Not on filedocumented in this encounter Care Teams Spindle Tester Relationship Specialty Start Date End Date Dru Rodriguez DO [address] [place] [address] PCP - General Family Medicine 10/22/22 Luisana Rodriguez DO [address] [place] [address] [facility] 12/08/22 Dru Rodriguez DO [address] [place] [address] PCP - Medical [place] [employer] 03/10/23 06/09/99 documented as of this encounter
--- OUTSIDE RECORDS SUMMARY | 2025-01-04 09:54 | XMS_ITS | Encounter Summary ---
Author Organization [facility] Address [address] [place] [address] Care Team Providers Care Physics Faculty Member Name Role Phone Dru Rodriguez DO Primary Care Provider + [phone] Luisana Rodriguez DO Unavailable [phone] Dru Rodriguez DO Unavailable [phone] Encounter Details Date Type Department Care Team (Late Contact Info) Description 11/02/2022 Abstract [facility] [address] [address] Jc Dacosta, DO [address] [address] Social History Tobacco Use Types Packs/Day Years Used Date Smoking Tobacco: Never Tobacco Cessation:Counseling Given: Not Answered Alcohol Use Standard Drinks/Week Comments Not Asked 0 (1 standard drink = 0.6 oz pure alcohol) Drinks 1-2 cups of caffeine per day. Hasn't drank alcohol in the past 12 months Comments Unknown Sex and Gender Information Value [...] AM EDT Routine [facility] [address] [place] [address] Kolton Cao DO [address] [place] [address] [place] [address] documented as of this encounter Visit Diagnoses Not on filedocumented in this encounter Care Teams Physics Faculty Member Relationship Specialty Start Date End Date Dru Rodriguez DO [address] [place] [address] PCP - General Family Medicine 10/22/22 Luisana Rodriguez DO [address] [place] [address] PCP - [facility] 12/08/22 Dru Rodriguez DO [address] [place] [address] PCP - Medical [place] [employer] 03/10/23 06/09/99 documented as of this encounter
--- OUTSIDE RECORDS SUMMARY | 2025-01-04 09:54 | XMS_ITS | Encounter Summary ---
Author Organization [employer] Address [id number] [address] [place] [address] Care Team Providers Care Restaurant Crew Member Name Role Phone Dru Rodriguez Primary Care Provider +1- [phone] Encounter Details Date Type Department Care Team (Late st Contact Info) Description 05/29/2023 Telephone [facility] [address] [place] [address] Nadja Lindsay Social History Tobacco Use Types Packs/Day Years [...] on file documented as of this encounter Miscellaneous Notes * Telephone Encounter - Nadja Lindsay - 05/29/2023 4:28 PM EST Debby received a refill request from the patient's pharmacy. Debby sent in 1 month supply but the patient needs to schedule her annual exam. Called & spoke to the patient. She stopped taking her control pills a few months ago. Patient scheduled her annual exam. documented in this encounter Plan of Treatment Not on file documented as of this encounter Visit Diagnoses Not on filedocumented in this encounter Additional Health Concerns Assessment Noted Time A Body Mass Index follow-up plan has been documented for the patient 04/02/2022 1:00 PM EDT documented as of this encounter Care Teams Restaurant Crew Member Relationship Specialty Start Date End Date Dru Rodriguez DO [address] [place] [address] PCP - General 01/01/17 documented as of this encounter
--- OUTSIDE RECORDS SUMMARY | 2025-01-04 09:54 | XMS_ITS | Encounter Summary ---
Author Organization [facility] Address [address] [place] [address] Care Team Providers Care Plating Inspector Name Role Phone Dru Rodriguez DO Primary Care Provider +1- [phone] Dru Rodriguez DO Unavailable [phone] Encounter Details Date Type Department Care Team (Late st Contact Info) Description 11/03/2024 Abstract [facility] [address] [facility] [address] [place] [address] Dru Rodriguez, DO [address] [facility] [address] [place] [address] Social History Tobacco Use Types Packs/Day Years [...] any clubs o r organizations such as yazidi groups, unions, fraternal or athletic groups, or [...] Recorded Patient Health Questionnaire-2 Score 0 09/17/2024 [facility] - Occupational Stress Questionnaire Answer [...] place to sleep or slept in a fpc (including now)? No 03/11/2023 Comments Unknown Sex [...] AM EDT Routine [facility] [address] [facility] [place] [address] Kolton Cao DO [address] [facility] [address] [place], [place] [address] documented as of this encounter Visit Diagnoses Not on filedocumented in this encounter Care Teams Plating Inspector Relationship Specialty Start Date End Date Dru Rodriguez DO [address] [place] [address] PCP - General Family Medicine 10/22/22 Dru Rodriguez DO [address] [place] [address] PCP - Medical [place] [employer] 03/10/23 06/09/99 documented as of this encounter
--- OUTSIDE RECORDS SUMMARY | 2025-01-04 09:54 | XMS_ITS | Encounter Summary ---
Author Organization [facility] Address [address] [place] [address] Care Team Providers Care Evening Sitter Name Role Phone Dru Rodriguez DO Primary Care Provider +1- [phone] Dru Rodriguez DO Unavailable [phone] Encounter Details Date Type Department Care Team (Late st Contact Info) Description 09/28/2024 Abstract [facility] [address] [facility] [address] [place] [address] Dru Rodriguez, DO [address] [facility] [address] [place] [address] Social History Tobacco Use Types Packs/Day Years [...] often do you attend chur ch or church services? 1 to 4 times per year 03/11/2023 Do you belong to any clubs o r organizations such as mandaeism groups, unions, fraternal or athletic groups, or [...] Recorded Patient Health Questionnaire-2 Score 0 09/17/2024 [facility] - Occupational Stress Questionnaire Answer [...] place to sleep or slept in a fci (including now)? No 03/11/2023 Comments Unknown Sex [...] AM EDT Routine [facility] [address] [facility] [place] [address] Kolton Cao DO [address] [facility] [address] [place], [place] [address] documented as of this encounter Visit Diagnoses Not on filedocumented in this encounter Care Teams Evening Sitter Relationship Specialty Start Date End Date Dru Rodriguez DO [address] [place] [address] PCP - General Family Medicine 10/22/22 Dru Rodriguez DO [address] [place] [address] PCP - Medical [place] [employer] 03/10/23 06/09/99 documented as of this encounter
--- OUTSIDE RECORDS SUMMARY | 2025-01-04 09:54 | XMS_ITS | Encounter Summary ---
Author Organization [facility] Address [address] [place] [address] Care Team Providers Care Chemical Research Worker Name Role Phone Dru Rodriguez DO Primary Care Provider +1- [phone] Dru Rodriguez DO Unavailable [phone] Encounter Details Date Type Department Care Team (Late st Contact Info) Description 11/03/2024 Orders Only [facility] [address] [facility] [address] [place] [address] Dru Rodriguez, DO [address] [place] [address] Social History Tobacco Use Types Packs/Day Years [...] any clubs o r organizations such as holiness groups, unions, fraternal or athletic groups, or [...] Recorded Patient Health Questionnaire-2 Score 0 09/17/2024 [facility] Occupational Stress Questionnaire Answer Date [...] place to sleep or slept in a longterm (including now)? No 03/11/2023 Comments Unknown Sex [...] AM EDT Routine [facility] [address] [facility] [place] [address] Kolton Cao DO [address] [facility] [place] [address] documented as of this encounter Procedures Procedure Name Priority Date/Time Associated Diagnosis Comments HEMOGLOBIN A1C Routine 10/28/2024 1:01 PM EDT documented in this encounter Results * Hemoglobin A1c (10/28/2024 1:01 PM EDT) Blood Venous blood specimen / Unknown Dru Rodriguez DO LAB BLOOD ORDERABLES Final Result documented in this encounter Visit Diagnoses Not on filedocumented in this encounter Care Teams Chemical Research Worker Relationship Specialty Start Date End Date Dru Rodriguez DO [address] [place] [address] PCP - General Family Medicine 10/22/22 Dru Rodriguez DO [address] [place] [address] PCP - Medical [place] [employer] 03/10/23 06/09/99 documented as of this encounter
--- OUTSIDE RECORDS SUMMARY | 2025-01-04 09:54 | XMS_ITS | Encounter Summary ---
Author Organization [facility] Address [address] [place] [address] Care Team Providers Care Bead Builder Name Role Phone Dru Rodriguez DO Primary Care Provider + [phone] Luisana Rodriguez DO Unavailable [phone] Dru Rodriguez DO Unavailable [phone] Encounter Details Date Type Department Care Team (Late Contact Info) Description 11/19/2022 Abstract [facility] [address] [phone] Jc Dacosta, DO [address] [address] Social History Tobacco Use Types Packs/Day Years [...] AM EDT Routine [facility] [address] [facility] [place] [address] Kolton Cao DO [address] [facility] [place] [address] documented as of this encounter Visit Diagnoses Not on filedocumented in this encounter Care Teams Bead Builder Relationship Specialty Start Date End Date Dru Rodriguez DO [address] [place] [address] PCP - General Family Medicine 10/22/22 Luisana Rodriguez DO [address] [place] [address] PCP - [facility] 12/08/22 Dru Rodriguez, DO [address] [place] [address] PCP - Medical [place] [employer] 03/10/23 06/09/99 documented as of this encounter
--- OUTSIDE RECORDS SUMMARY | 2025-01-04 09:54 | XMS_ITS | Clinical Summary ---
Author Organization [facility] Address [id number] [place] [address] Care Team Providers Care Oracle Security Consultant Name Role Phone Dru Rodriguez April MUNGUIA Primary Care Provider [phone] Allergies Active Allergy Reactions Criticality Noted Date Comments Amoxicillin 05/23/2016 Has since taken without reaction Medications * This document contains information received from the source organization and may not represent a complete record from that organization. insulin lispro SUBCUTANEOUS PUMP (HumaLOG) 100 unit/mL patient supplied pump Resume home settings 1 mL 0 7 Active albuterol (PROVENTIL HFA;VENTOLIN HFA) 90 mcg/actuation inhalerIndications: COVID Inhale 2 puffs every 4 (four) hours as needed for wheezing. 18 g 1 Active multivitamin-minera ls-lutein (MULTIVITAMIN 50 PLUS) tablet 1 tablet Active Lactobac no.41/Bifidobact no.7 (PROBIOTIC-10 ORAL) Take by mouth. Active lidocaine (LIDODERM) 5 % Place 1 patch on the skin daily. Remove & Discard patch within 12 hours or as directed by MD Hebert patch 2 Active ondansetron ODT (ZOFRAN ODT) 4 mg disintegrating tablet Dissolve 1 tablet (4 mg total) on tongue every 8 (eight) hours as needed for nausea for up to 10 doses. 10 tablet 2 Active OMNIPOD DASH PODS, GEN 4, cartridge 2 Active ibuprofen (MOTRIN) 600 mg tablet Take 1 tablet (600 mg total) by mouth every 6 (six) hours as needed for pain. 30 tablet 3 Active acetaminophen (TylenoL) 325 mg tablet Take 2 tablets (650 mg total) by mouth every 6 (six) hours as needed for pain. 30 tablet 3 Active Active Problems Problem Noted Date Diagnosed Date DKA, type 1, not at goal 01/06/2018 Diabetic ketoacidosis associ ated with type 1 diabetes mellitus 02/22/2017 Acute renal insufficiency 02/18/2017 Mechanical breakdown of insulin pump 02/18/2017 Generalized anxiety disorder 01/01/2017 Panic disorder without agoraphobia 01/01/2017 DKA, type 1 08/01/2016 Mild intermittent asthma 05/23/2016 Celiac disease in pediatric patient 05/23/2016 Immunizations Immunization Administration Dates Next Due COVID-19, mRNA, LNP-S, PF, 30mcg/0.3mL Dose 03/10,02/28/2021 Family History Medical History Relation Name Comments Asthma Father Diabetes Maternal Grandmother Drug abuse Mother Colon cancer Paternal Grandfather Diabetes Sister Heart murmur Sister Breast cancer Neg Hx Cancer Neg Hx Hypertension Neg Hx Ovarian cancer Neg Hx Pancreatic cancer Neg Hx Prostate cancer Neg Hx Stroke Neg Hx Uterine cancer Neg Hx Relation Name Status Comments Father Alive Maternal Grandmother Mother Paternal Grandfather Sister Social History Tobacco Use Types Packs/Day Years Used Date Smoking Tobacco: Never Smokeless Tobacco: Never Alcohol Use Standard Drinks/Week Comments Yes 0 (1 standard drink = 0.6 oz pur e alcohol) social AUDIT-C Answer Date Recorded Q1: How often do you have a drink containing alc ohol? Monthly or less 06/12/2023 Q2: How many drinks containi ng alcohol do you have on a typical day when you are drinking? 3 or 4 06/12/2023 Q3: How often do you have si x or more drinks on one occasion? Never 06/12/2023 PHQ-2 Answer Date Recorded Total Score 4 06/12/2023 Childcare Answer Date Recorded Childcare Unknown 11/19/2018 Employment Answer Date Recorded Employment Unknown 11/19/2018 Hunger Screening Answer Date Recorded Within the past 12 months we worried whether our food would run out before we got money to buy more. Never True 06/12/2023 Within the past 12 months th e food we bought just didn't last and we didn't have money to get more. Never True 06/12/2023 Purpose - Life Answer Date Recorded Purpose and direction in life Unknown Comments No Sex and Gender Information Value Date Recorded Sex Assigned at Not on file Legal Sex Female 11:58 AM EDT Gender Identity Not on file Sexual Orientation Not on file Last Filed Vital Signs Vital Sign Reading Time Taken Comments Blood Pressure 100/66 06/12/2023 8:37 AM EST Pulse 81 02/03/2023 3:15 PM EDT Temperature 36.9 C (98.4 F) 02/03/2023 12:04 PM EDT Respiratory Rate 16 02/03/2023 3:15 PM EDT Oxygen Saturation 98% 02/03/2023 3:15 PM EDT Inhaled Oxygen Concentration - - Weight 64.5 kg (142 lb 3.2 oz) 06/12/2023 8:37 A M EST Height 147.3 cm (4' 10 ) 02/03/2023 12:02 PM EDT Body Mass Index 29.72 02/03/2023 12:02 PM EDT Plan of Treatment Health Maintenance Due Date Last Done Comments Diabetic Ophthalmology Exam 2001 Diabetic Foot Exam 2019 Chlamydia Screening 04/02/2023 04/02/2022, COVID-19 Vaccine (2023-2 5 season) 2024 12/13/2021, 03/21/2021, 02/28/2021 Adult BMI Screening 06/12/2024 06/12/2023 Depression Screening 06/12/2024 06/12/2023 Tobacco Screening 06/12/2024 06/12/2023 Influenza Vaccine 02/08/2025 06/12/2023, , 07/05/2020, Additional history exists Pap Smear 04/02/2025 04/02/2022 DTaP,Tdap and Td Vaccines (8 - Td or Tdap) 05/30/2033 05/30/2023, 03/02/2013, 03/18/2008, Additional history exists Medical Devices Implanted Type Area Inkjet Operator Device Identifier Shelf Expiration Date Model / Serial / Lot Nexplanon Description: control im plant in right upper arm Procedures Procedure Name Priority Date/Time Associated Diagnosis Comments PAP SMEAR Routine 04/02/2022 10:35 AM EDT Cervical smear, as part of routine gynecological examination CHLAMYDIA/GC BY PCR OMAIRA SWAB Routine 03/20/2022 6:33 PM EDT Menorrhagia with irregular cycle Metrorrhagia DUB (dysfunctional uterine bleeding) from Last 3 Months or Most Recently Relevant to Health Maintenance Results * Pap Smear (04/02/2022 10:35 AM EDT) 04/02/2022 10:3 5 AM EDT 04/02/2022 10:37 AM EDT Narrative COPATH - 04/12/2022 12:17 PM EDT [facility] [address] [place] [address] Gynecologic Cytology Consultation Patient Name:KAELYN SHAW:2000 (Age: 22)Gender:FTaken:04/02/2022eported:04/12/2022hysician(s):PHILLIP Pink ([phone])Copy To: Rec. #:[id number]: #[id number] Final Cytologic Interpretation ThinPrep Pap Test (Cervical): Satisfactory for evaluation. A transformation zone component is present. NEGATIVE FOR INTRAEPITHELIAL LESION OR MALIGNANCY. j/04/12/2022 Interpretation performed at [facility], [address] [place] [address], License number: [id number]. Electronically Signed Out By JORGE Olson(ASCP) Date of Last Menstrual Period: 02/28/22 Other Clinical Conditions: Z01.419 Rn Operating Room exam wo/abn findings Source of Specimen ThinPrep Pap Test (Cervical) Thin Prep Pap (AIRCRAFT ORDNANCE SYSTEMS MECHANIC) Fee Code(s): G0145 us Cayla M Krotzer EXECUTIVE CYBER LEADER-INTERVENTIONAL RADIOLOGY RN PATHOLOGY/CYTOLOGY ORDER ALLAN Final Result COPATH * Chlamydia/GC by PCR Omaira Swab (03/20/2022 6:33 PM EDT) Specimen source CERVIX 9:54 PM EDT [facility] Comment:Corrected on 03/20 A T 2154: Previously reported as SWAB Chlamydia DNA PCR Negative Negative^N egative 03/21/2022 12:54 PM EDT [facility] Comment: Chlamydia trachomatis not detected by nucleic acid amplification. This does not exclude the possibility of infection because results are dependent on adequate specimen collection. Gonorrhea DNA PCR Negative Negative^N egative 03/21/2022 12:54 PM EDT [facility] Comment: Neisseria gonorrhoeae not detected by nucleic acid amplification. This does not exclude the possibility of infection because results are dependent on adequate specimen collection. GENS 03/20/2022 6:33 PM EDT 03/20/2022 9:50 PM EDT Flores Seaman MD MICROBIOLOGY - GENERAL ORDERAB LES Edited Result - Final SUNQUEST [facility] [address] [place] [address] from Last 3 Months or Most Recently Relevant to Health Maintenance Insurance [employer] Advance Directives * Full Code (Latest Code Status on File) Date Activated Date Inactivated Comments 06/05/2021 4:55 PM 06/08/2021 4:33 PM * Full Code Date Activated Date Inactivated Comments 01/07/2018 6:44 AM 01/07/2018 2:17 PM * Full Code Date Activated Date Inactivated Comments 10/23/2016 11:27 AM 10/24/2016 12:42 PM * Full Code Date Activated Date Inactivated Comments 08/01/2016 12:52 AM 08/01/2016 4:47 PM * Full Code Date Activated Date Inactivated Comments 05/23/2016 1:13 PM 05/24/2016 9:45 PM Care Teams Oracle Security Consultant Relationship Specialty Start Date End Date Dru Rodriguez DO [address] [facility] [place] [address] PCP - General 01/01/17
[2025-01-04 10:35] LABS: Hematocrit 35.7 % (36.0-48.0); Hemoglobin 12.3 g/dL (12.0-16.0); Immature Granulocytes Abs Auto 0.06 10^3/uL (0.00-0.03); Immature Granulocytes Pct Auto 0.5 % (0.0-0.5); Lymphocytes Absolute Auto 2.6 10^3/uL (1.2-3.8); Mean Corpuscular HGB Conc 34.5 g/dL (29.9-35.2); Mean Corpuscular Hemoglobin 30.1 pg (26.7-34.0); Mean Corpuscular Volume 87.3 fL (81.0-99.0); Platelet Count 280 10^3/uL (150-450); Red Blood Count 4.09 10^6/uL (4.20-5.40); White Blood Count 12.7 10^3/uL (4.0-11.0)
[2025-01-04 10:50] LABS: Cannabinoid Screen Urine NEGATIVE (NEGATIVE)
[2025-01-04 10:51] LABS: Methamphetamines Screen Urine NEGATIVE (NEGATIVE); Tricyclic Antidepressant Urine NEGATIVE (NEGATIVE)
[2025-01-05 04:11] LABS: Rubella Antibodies, IgG 1.29 index (Immune >0.99)
[2025-01-05 12:08] LABS: Rapid Plasma Reagin, Quant Non Reactive titer (NonRea<1:1)
== END 2025-01-04 09:45 | disposition home or self-care (01) ==
PROVIDERS: PCP Obstetrics & Gynecology; Visit Provider Obstetrics & Gynecology
DX: Z34.01 Encounter for supervision of normal first pregnancy, first trimester (principal); N92.6 Irregular menstruation, unspecified
CPT/HCPCS: 36415; 80307; 83036; 85025; 86592; 86762; 86803; 86850; 86900; 86901; 87086; 87340; 87389

== ENCOUNTER 2025-02-16 19:36 | Outpatient (REF) | payer OTHER, BC, SELFPAY ==
[2025-02-19 13:08] LABS: Age Gdln ACOG Testing Note (.); IGP, rfx Aptima HPV ASCU Note (.)
== END 2025-02-16 19:37 | disposition home or self-care (01) ==
LOC: LAB 19:36
PROVIDERS: PCP Obstetrics & Gynecology; Visit Provider Physician Assistant
DX: Z01.419 Encounter for gynecological examination (general) (routine) without abnormal findings (principal)
CPT/HCPCS: 88175

== ENCOUNTER 2025-03-20 06:49 | Observation (INO) | payer OTHER, BC, SELFPAY ==
[2025-03-20 07:13] VITALS: BP 113/59; PULSE 87; TEMP 36.9
[2025-03-20 07:41] LABS: Glucose Urine UA NEGATIVE (NEGATIVE)
[2025-03-20 07:54] LABS: Cast Seen? NONE SEEN #/LPF (NONE SEEN); Crystals Seen? None Seen #/HPF (None Seen)
[2025-03-20 07:55] LABS: Urine Culture Indicated YES-LC
[2025-03-20] MEDS: FLUCONAZOLE 150 MG TABLET PO (09:13)
== END 2025-03-20 09:25 | disposition home or self-care (01) ==
LOC: FBC 06:51
PROVIDERS: Admitting Provider Obstetrics & Gynecology; PCP Obstetrics & Gynecology; Visit Provider Obstetrics & Gynecology
DX: O26.892 Other specified pregnancy related conditions, second trimester (principal); R10.9 Unspecified abdominal pain; Z3A.20 20 weeks gestation of pregnancy
CPT/HCPCS: 59025; 81001; 84112; 87086; G0378; G0379

== ENCOUNTER 2025-04-06 07:37 | Emergency (ER) | payer OTHER, BC, SELFPAY ==
--- OUTSIDE RECORDS SUMMARY | 2023-12-31 10:00 | XMS_ITS | Continuity of Care Document ---
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 Name Role Phone Edna Rodriguez Unavailable Unavailable [...] TOBACCO NON-USER [employer] [place] Dis Dec Resin Composite 1s; Posterior Prophylaxis Adult Moderate Risk [employer] [facility] [employer] [facility] [place] Dis Dec Oral Hygiene Instruction PSYTX PT&/FAMILY 60 MINUTES PSYTX PT&/FAMILY 60 MINUTES OFFICE/OUTPATIENT VISIT, EST HG A1C LEVEL < 7.0% TOBACCO NON-USER PSYTX PT&/FAMILY 60 MINUTES OFFICE/OUTPATIENT VISIT, EST MED LIST DOCD IN [facility] RVW MEDS BY RX/DR IN [facility] TOBACCO NON-USER PSYTX PT&/FAMILY 60 MINUTES Intraoral-complete Series (bw) Comp Oral Eval New/estab Patient 2023 Oral Hygiene Instruction PSYTX PT&/FAMILY 60 MINUTES OFFICE/OUTPATIENT VISIT, EST DIAST BP 80-89 MM HG SYST BP < 130 MM HG MED LIST DOCD IN [facility] RVW MEDS BY RX/DR IN [facility] TOBACCO NON-USER PSYTX PT&/FAMILY 60 MINUTES PSYTX PT&/FAMILY 60 MINUTES Advance Directives Directive Yes / No Effective Date File Name No Information Encounters Encounter Description Practice Location Reason(s) For Visit Diagnoses Date Provider Providers Copied on Encounter PSYTX PT&/FAMILY 60 MINUTES [facility], [address] [place] [address], [id number] , [place] [phone] [facility] Psychosis, unspecified psychosis typePTSD (post-traumatic stress disorder)Body mass index [BMI] 27.0-27.9, adultVitamin D deficiency, unspecified 4 Olman Bishop. [address] [place] [address], [address], [place]. [phone] OFFICE/OUTPA TIENT VISIT, [facility], [address] [place] [address], [id number] , [place] tel:[phone] [facility] Telehealth (chief complaint) Psychosis, unspecified psychosis typePTSD (post-traumatic stress disorder)Body mass index [BMI] 27.0-27.9, adultVitamin D deficiency, unspecified 4 Bellstephen Martinodith. [address] [place], [address], [place]. tel: [phone] [facility], [address] [place] [address], [id number] , [place] tel: [phone] Dental Clinic fill (chief complaint) Encounter for screening for dental disorders 4 Jonh Parr. [address] [place], [place], [id number] , [place]. tel: [phone] [facility], [address] [place] [address], [id number] , [place] tel: [phone] [facility] [place] (chief complaint) Encounter for screening for dental disorders 4 Jonh Parr. [address] [place], [place], [id number] , [place]. tel: [phone] PSYTX PT&/FAMILY 60 MINUTES [facility], [address] [place] [address], [id number] , [place] tel: [phone] [facility] Psychosis, unspecified psychosis typePTSD (post-traumatic stress disorder)Body mass index [BMI] 27.0-27.9, adultVitamin D deficiency, unspecified 4 Olman JENA Edna. [address] [place], [address], [place]. tel: [phone] PSYTX PT&/FAMILY 60 MINUTES [facility], [address] [place] [address], [id number] , [place] tel: [phone] [facility] Psychosis, unspecified psychosis typePTSD (post-traumatic stress disorder)Body mass index [BMI] 27.0-27.9, adultVitamin D deficiency, unspecified 4 Olman Snydercy. [address] [place] [address], [address], [place]. tel: [phone] OFFICE/OUTPA TIENT VISIT, EST [facility], [address] [place] [address], [id number] , [place] tel: [phone] [facility] (chief complaint) Psychosis, unspecified psychosis typePTSD (post-traumatic stress disorder)Body mass index [BMI] 27.0-27.9, adultVitamin D deficiency, unspecified 4 [facility]. [address] [place] [address], [address], . tel: [phone] PSYTX PT&/FAMILY 60 MINUTES [facility], [address] [place] [address], [id number] , [place] tel: [phone] [facility] Psychosis, unspecified psychosis typePTSD (post-traumatic stress disorder)Body mass index [BMI] 27.0-27.9, adult 4 Olman Bishop. [address] [place] [address], [address], [place]. tel: [phone] OFFICE/OUTPA TIENT VISIT, [facility], [address] [place] [address], [id number] , [place] tel: [phone] [facility] Telehealth (chief complaint) Psychosis, unspecified psychosis typePTSD (post-traumatic stress disorder)Body mass index [BMI] 27.0-27.9, adult 4 [facility]. [address] [place] [address], [address], [place]. tel: [phone] PSYTX PT&/FAMILY 60 MINUTES [facility], [address] [place] [address], [id number] , [place] tel: [phone] [facility] Psychosis, unspecified psychosis typePTSD (post-traumatic stress disorder)Need for hepatitis C screening testScreening for diabetes mellitusScreening for endocrine disorderScreening for lipid disordersScreening for HIV (human immunodeficiency virus)Body mass index [BMI] 26.0-26.9, adultBody mass index [BMI] 27.0-27.9, adult 4 Olman Bishop. [address] [place] [address], [address], [place]. tel: [phone] [facility], [address] [place] [address], [id number] , [place] tel: [phone] Dental Clinic [facility] (chief complaint) Body mass index [BMI] 27.0-27.9, adultEncounter for screening for dental disorders 4 Jonh Baumannal. [address] [place], [place], [id number] , [place]. tel: [phone] [facility], [address] [place] [address], [id number] , [place] tel: [phone] [facility] Encounter for routine general gynecological examination without abnormal findingEncounter for gynecological examination (general) (routine) without abnormal findings 4 Ray Hurley. [address] [place] [address], [address], [place]. tel: [phone] PSYTX PT&/FAMILY 60 MINUTES [facility], [address] [place] [address], [id number] , [place] tel: [phone] [facility] Psychosis, unspecified psychosis typePTSD (post-traumatic stress disorder)Need for hepatitis C screening testScreening for diabetes mellitusScreening for endocrine disorderScreening for lipid disordersScreening for HIV (human immunodeficiency virus)Body mass index [BMI] 26.0-26.9, adultBody mass index [BMI] 27.0-27.9, adult 4 Olman Bishop. [address] [place] [address], [address], [place]. tel: [phone] OFFICE/OUTPA TIENT VISIT, EST [facility], [address] [place] [address], [id number] , [place] tel: [phone] [facility] Behavioral health (chief complaint) Need for hepatitis C screening testScreening for diabetes mellitusScreening for endocrine disorderScreening for lipid disordersScreening for HIV (human immunodeficiency virus)Body mass index [BMI] 26.0-26.9, adultPsychosis, unspecified psychosis typePTSD (post-traumatic stress disorder)Body mass index [BMI] 27.0-27.9, adult 4 Ray Hurley. [address] [place] [address], [address], [place]. tel: [phone] PSYTX PT&/FAMILY 60 MINUTES [facility], [address], [place], [id number] , [place] tel: [phone] [facility] Schizophrenia, unspecified 4 Olman Bishop. [address] [place], [address], [place]. tel: [phone] PSYTX PT&/FAMILY 60 MINUTES [facility], [address], [place], [id number] , [place] tel: [phone] [facility] Schizophrenia, unspecified 4 Olman Bishop. [address] [place], [address], [place]. tel: [phone] Family History Family Member Type Diagnosis Age [...] Of Treatment Date Type Action Status Goal PRAPARE ASSESSMENT. Due on due Goal [...] counseling completed Goal Hep A. Due on e Goal Influenza vaccine. Due on due [...] du e Goal Lipid panel. Due on 041 due [...] due Goal PAP. Due on due Goal Dietary manageme nt [...] Goal PRAPARE ASSESSMENT. Due on due Goal Dietary manageme nt [...] Order HIV 1/0/ 2 Ag/Ab with Reflex ([id number]), Ordered on: Ordered Future Order: Lab Order Hemoglob in A1c ([id number]), Ordered on: Ordered Future Order: Lab Order Lipid Pa jose alejandro ([id number]), Ordered on: Ordered Future Order: Lab Order TSH Rfx on Abnormal to Free T4 ([id number]), Ordered on: Ordered Future Order: Lab Order Vitamin D, 25-Hydroxy ([id number]), Ordered on: Ordered Future Order: Lab Order Vitamin B12 and Folate ([id number]), Ordered on: Ordered Future Order: Lab Order Ammonia, Plasma ([id number]), Ordered on: Ordered Future Order: Lab Order CBC With Differential/Platelet ([id number]), Ordered on: Ordered Future Order: Lab Order Comp. Me tabolic Panel (14) ([id number]), Ordered on: Ordered Future Order: Lab Order Abram gleason Drug Analysis, Ur ([id number]), Ordered on: Ordered Future Order: Lab Order HCV Anti body W/ Reflex To Quantitative Real Time Pcr ([id number]), Ordered on: Ordered History Of Present Illness [...] Thurman. Pt sees Dr. Rodriguez at [facility] for PCP. Pt is UTD on Pap. [facility] in [place]. Pt denies homicidal thoughts. Admits to occasional [...]
--- OUTSIDE RECORDS SUMMARY | 2025-03-23 08:50 | XMS_ITS | Encounter Summary ---
Author Organization [facility] Address [address] [place] [address] Care Team Providers Care Surgical Supervisor Name Role Phone Dru Rodriguez DO Primary Care Provider [phone] Dru Rodriguez DO Unavailable [phone] Reason for Visit * ReasonCommentsRoutine Visit Encounter Details DateTypeDepartmentCare Team (Latest Contact Info)Ldqwocaafsk62/14/2025 8:50 AM EDTRoutine [facility] [address] [address] Kolton Cao DO [address] Shayne Davenport, [facility]11 Second trimester ([facility]); 20 weeks gestation of ([facility]); Type 1 diabetes mellitus during , antepartum ([facility]) Social History Tobacco UseTypesPacks/DayYears UsedDateSmoking Tobacco: NeverSmokeless [...] relatives?Twice a week03/11/2023How often do you attend gnosticist or religion services?1 to 4 times per year03/11/2023o you belong to any clubs or organizations such as gnosticist groups, unions, Infectious or athletic laura ups, or school groups?No03/11/2023How often do you attend meetings of the clubs or organizations you belong to?Never03/11/2023re you , , , , never , or living with a partner?Mxwzuit4603/11/2023 AUDIT-CAnswerDate RecordedQ1: How often do you have a drink containing alcohol? Monthly or less03/11/2023Q2: How many drinks containing alcohol do you have on a typical day when you are drinking?3 or Q3: How often do you have six or more drinks on one occasion?Less than ccncswt9403/11/2023Overall Financial Resource Strain (CARDIA)AnswerDate RecordedHow hard is it for you to pay for the very basics like food, housing, medical care, and heating?Somewhat hard 03/11/2023HQ-2AnswerDate RecordedPatient Health Questionnaire-2 Score0 09/17/2024[facility] [place] of Occupational Health - Occupational Stress QuestionnaireAnswerDate [...] steady place to sleep or slept in [facility] (including now)?No03/11/2023Estimated Date of IoglnnvmIsyivohuHuf89/27/2026ased on last menstrual period of 10/30/2024Sex and Gender InformationValueDate RecordedSex Assigned at RmibyVijxsd07/01/2023 1:10 PM EDTLegal LxoNpccgv35/15/2023 6:51 PM EDTGender NortdbarBeugug99/01/2023 1:10 PM EDTSexual RkkalopwvolMdkdsacv42/01/2023 1:10 PM EDTdocumented as of this encounter Last Filed Vital Signs Vital SignReadingTime TakenCommentsBlood Zhpchird772/6203/23/2025 8:56 AM EDT Pulse--Temperature--Respiratory Rate--Oxygen Saturation--Inhaled Oxygen Concentration--Rzwymp33.3 kg (152 lb 12.8 oz)03/23/2025 8:56 AM EDTHeight--Body Mass Index31.9404 3:24 PM EDTdocumented in this encounter Progress Notes * Angela Meyer [...] UNITS DAILY Insulin Disposable Pump (Omnipod 5 [id number] Pods Gen 5) misc 1 each, Subcutaneous, Every 3 days, CHANGE POD EVERY 3 DAYS DIRECTED insulin glargine (Lantus SoloStar) 100 UNIT/ML pen inject 22 units subcutaneously once daily Vit w/Fh-Zvpjszeay-LY (PNV PO) Take by mouth ALLERGIES Allergies[1] PROBLEMS Active Ambulatory Problems Diagnosis Date Noted Bulging lumbar disc 11/08/2022 Chronic fatigue 11/08/2022 Lumbago with sciatica, left side 11/08/2022 Sciatica 11/08/2022 Celiac disease in pediatric patient (HCC) 05/23/2016 Generalized anxiety disorder 01/01/2017 Mild intermittent asthma (HCC) 05/23/2016 Panic disorder without agoraphobia 01/01/2017 Biliary dyskinesia 11/08/2022 Type 1 diabetes mellitus without complications (HCC) 02/04/2023 Type 1 diabetes mellitus with hypoglycemia and without coma (HCC) 02/04/2023 PTSD (post-traumatic stress disorder) 09/06/2023 Mixed obsessional thoughts and acts 09/13/2023 Diabetes type 1, controlled (HCC) 01/25/2011 Hypoglycemia associated with diabetes (HCC) 03/09/2025 Resolved Ambulatory Problems Diagnosis Date Noted Blood blister 11/08/2022 Diabetic ketoacidosis associated with type 1 diabetes mellitus (HCC) 02/22/2017 Hypoglycemia due to type 1 diabetes mellitus (HCC) 11/08/2022 Other chronic pain 11/08/2022 Type 1 diabetes mellitus with ketoacidosis without coma ([facility]) 08/01/2016 Acute renal insufficiency 02/18/2017 Mechanical breakdown [...] nursing note reviewed. Exam conducted with a slope runner present. Vitals: Estimated body mass index is 31.94 kg/m?? as calculated from the following: Height as of 09/17/24: 4' 10 . Weight as of this encounter: 152 lb 12.8 oz. BP: 118/62 Patient's last menstrual period was 10/30/2024. ASSESSMENT & PLAN ICD-10-CM 1. Second trimester ([facility]) Z34.92 2. 20 weeks gestation of ([facility]) Z3A.20 POCT urinalysis dipstick manually resulted 3. Type 1 diabetes mellitus during , antepartum ([facility]) O24.019 Patient presents today for [...] 11/2022 COLONOSCOPY 2015 normal EGD 2013 normal documented in this encounter Plan of Treatment DateTypeDepartmentCare Team (Latest Contact Info)Gqwnycdtesg13/28/2025 11:20 AM EDTRoutine [facility] [address] [phone] Katharine Cummins PA [address] [place] [address] documented as of this encounter Goals GoalPatient Goal TypeAssociated ProblemsRecent ProgressPatient-Stated?Author Reminders Care PlanOB RemindersNoOpen Scheduling, Backgrounddocumented as of this encounter Procedures Procedure NamePriorityDate/TimeAssociated DiagnosisCommentsPOCT URINALYSIS AKHETNLGKsgkvqz04/14/2025 9:03 AM EDT 20 weeks gestation of ([facility]) documented in this encounter Results * (ABNORMAL) POCT urinalysis dipstick manually resulted (03/23/2025 9:03 AM EDT) ComponentValueRef RangeTest MethodAnalysis TimePerformed AtPathologist SignatureColor, UAYellowClarity, UAClearGlucose, UANegativeNegative - 1999(110) ++++ mg/dLBilirubin, UANegativeNegative - 4(70) +++ mg/dLKetones, UA NegativeNegative - 160(16) ++++ mg/dLSpec Grav, UA1.0151 - 1.03Blood, UA NegativeNegative - 50 Guy/mcLpH, UA7.05 - 9Protein, UANegativeNegative - 2000(20) ++++ mg/dLUrobilinogen, UA2.00.2 - 12 mg/dLLeukocytes, UA3+Negative - 500+++ Danny/mcLNitrite, UANegativeNegative - PositiveSpecimen (Source) Anatomical Location / LateralityCollection Method / VolumeCollection Time Received CkptYgaxv93/14/2025 9:03 AM EDT Narrative Authorizing ProviderResult TypeResult StatusCorey Kiley DOPOINT OF CARE TEST ENTER/EDIT ORDERABLESFinal Result documented in this encounter Visit Diagnoses Diagnosis Second trimester ([facility]) state, incidental 20 weeks gestation of ([facility]) Type 1 diabetes mellitus during , antepartum ([facility]) documented in this encounter Additional Health Concerns Active ProblemsNoted DateDiagnosed DateOB Wkftbfsxd25/24/2025 documented as of this encounter Care Teams Team MemberRelationshipSpecialtyStart DateEnd Date Dru Rodriguez DO [address] [place] [address] PCP - GeneralFamily Medicine10/22/22 Dru Rodriguez DO [address] [place] [address] PCP - Medical [place] Demlbsdjvs23/1/2312documented as of this encounter
--- OUTSIDE RECORDS SUMMARY | 2025-03-25 08:45 | XMS_ITS | Encounter Summary ---
Author Organization [facility] Address [address] [place] [address] Care Team Providers Care Cloth Designer Name Role Phone Joaquín Rodriguez DO Primary Care Provider [phone] Joaquín Rodriguez DO Unavailable [phone] Reason for Visit * ReasonCommentsFMLA Encounter Details DateTypeDepartmentCare Team (Latest Contact Info)Rxmkdyxrkqp05/16/2025 8:45 AM EDTOffice Visit [facility] [address] [facility] [address] [place] [id number] Joaquín Rodriguez, DO [address] [facility] [address] [place] [address] Routine general medical examination at a health care facility (Primary Dx); Generalized anxiety disorder; Celiac disease in pediatric patient (HCC); Mild intermittent asthma, unspecified whether complicated ([facility]) Social History Tobacco UseTypesPacks/DayYears UsedDateSmoking Tobacco: NeverSmokeless [...] relatives?Twice a week03/11/2023How often do you attend rastafari or gnosticism services?1 to 4 times per year03/11/2023o you belong to any clubs or organizations such as rastafari groups, unions, [employer] or athletic laura ups, or school groups?No03/11/2023How often do you attend meetings of the clubs or organizations you belong to?Never03/11/2023re you , , , , never , or living with a partner?Vivqbbp3603/11/2023 AUDIT-CAnswerDate RecordedQ1: How often do you have a drink containing alcohol? Monthly or less03/11/2023Q2: How many drinks containing alcohol do you have on a typical day when you are drinking?3 or Q3: How often do you have six or more drinks on one occasion?Less than cafjeof5103/11/2023Overall Financial Resource Strain (CARDIA)AnswerDate RecordedHow hard is it for you to pay for the very basics like food, housing, medical care, and heating?Somewhat hard 03/11/2023HQ-2AnswerDate RecordedPatient Health Questionnaire-2 Score0 03/25/2025[facility] healthcare [place] [facility] - Occupational Stress QuestionnaireAnswerDate [...] steady place to sleep or slept in [facility] (including now)?No03/11/2023Estimated Date of HxgtjhodZtttjevvIjz91/27/2026ased on last menstrual period of 10/30/2024Sex and Gender InformationValueDate RecordedSex Assigned at PqtodMwwlrp33/01/2023 1:10 PM EDTLegal RntEyowst67/15/2023 6:51 PM EDTGender ZghxwmiyPwgoiz78/01/2023 1:10 PM EDTSexual CtpyvfioqfvApaqvjrv74/01/2023 1:10 PM EDTdocumented as of this encounter Last Filed Vital Signs Vital SignReadingTime TakenCommentsBlood Tklylirc342/7203/25/2025 8:46 AM EDT Swedo708703/25/2025 8:46 AM ESFOspjdelmhar63 ??C (96.8 ??F)03/25/2025 8:46 AM EDT Respiratory Rate--Oxygen Niwipiqmyj75%03/25/2025 8:46 AM EDTInhaled Oxygen Concentration--Rqgvga59.3 kg (155 lb)03/25/2025 8:46 AM AIWQxnadk227.3 cm (4' 10 )03/25/2025 8:46 AM EDTBody Mass Index32.410 8:46 AM EDTdocumented in this encounter Functional Status * Over the past 2 weeks, how often have you been bothered by any of the following problems?QuestionAnswerDate of AssessmentAuthorLittle interest or pleasure in doing thingsNot at all03/25/2025 8:57 AM Lesa Emanuel LPNFeeling down, depressed, or hopelessNot at all03/25/2025 8:57 AM EDT Lesa Boss LPNPatient Health Questionnaire-2 Cwfnt672 8:57 AM Lesa Emanuel LPN documented as of this encounter Progress Notes * Joaquín Chen Jennifer, DO - 03/25/2025 8:45 AM EDT Images from the original note were not included. Dalia Shaw is a 25 y.o. female presents with chief complaint of Chief Complaint Patient presents with FMLA ?Quick Links Last Note in Specialty Snapshot Edit RFV/CC Edit Screenings Current Meds ?Quick Links Full Problem List Allergy Asthma Back Pain Diabetes GI ?Quick Links Add Vitals Timeline (Adult) Labs Imaging Results Review Trend Vitals ?? Avoid pulling in long tables of results. Comment on relevant results to support your medical decision making. Diagnoses and all orders for this visit: Routine general medical examination at a health care facility Generalized anxiety disorder Celiac disease in pediatric patient (HCC) Mild intermittent asthma, unspecified whether complicated (HCC) At today's health maintanence appointment I reviewed the patients past medical history along with any laboratory and diagnostic testing preformed prior to the visit. During the visit, health care maintanence was reviewed and recommendations made specifically for the patient based on their risk factors. Finally the patient was instructed to call the office if any health issues arise until the nextwell check/appointment. At the conclusion of the visit all questions were answered which were brought forth. Assessment & Plan 1. Insulin-dependent diabetes mellitus: Her A1c level was recently recorded at 7.8. She reports experiencing both hypoglycemic and hyperglycemic episodes, with a recent hospitalization to prevent diabetic ketoacidosis (DKA). She is advisedto continue monitoring her blood sugar levels closely and to maintain regular follow-ups with her maternal medicine doctor and diabetic nurse practitioner. A FMLA form was completed on her behalf. 2. : She is currently and reports that her blood sugars have been running lower. She is experiencing significant lower back and hip pain, which worsens at night. She is advised to switch to a daytime work position to better manage her blood sugar levels and overall health during . She is using a heating pad and a pillow for relief. Follow-up: The patient will follow up as needed. JOAQUÍN RODRIGUEZ D.O. This note was entered using [employer]. Grammatical and dictation errors maybe present in translation *I have reviewed and reconciled the history and medication list with the patient today* HPI History of Present Illness The patient is a 25-year-old insulin-dependent diabetic who presents for a yearly physical. She is currently with a male fetus, which is smaller than expected. Her blood glucose levels have been relatively low. The first trimester was challenging, but her condition has improved. She has experienced frequent hypoglycemic episodes and a few hyperglycemic episodes. Her maternal medicine doctor considered admitting her due to the risk of diabetic ketoacidosis (DKA), but she managed to lower her blood sugar levels. She was hospitalized for five days, during which her ketoneswere flushed out with fluids over a period of three hours. Significant back pain, particularly at night, is attributed to her . The pain is less severe during the day when she is active. She has been using a heating pad and a pillow for relief. She is unable to take any medication or receive another steroid injection due to her . Currently, she is working two days a week due to her , down from her usual three days. Shehas requested intermittent FMLA leave in case of hospitalization or severe blood sugar fluctuations. She has also completed forms for her maternal medicine doctor due to her concurrent and diabetes. She plans to switch to a daytime work schedule to better manage her blood sugar levels. She had a consultation with a diabetic nurse practitioner in early March 2025. Occupation: Works at [employer] Sleep: Reports difficulty sleeping due to back pain Here for annual exam Due for labs Colonoscopy 02/20/2016 Pt is 20 weeks (Dr. Cao). Would like to discuss FMLA (intermittent leave for Diabetes)- No longer seeing Dr. Lieberman. 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 No other questions or concerns. Depression: Not at risk (03/25/2025) PHQ-2 PHQ-2 Score: 0 Discontinued Medications PSYLLIUM (METAMUCIL) 400 MG CAPSULE Daily SUBJECTIVE: Current Medications/Allergies: ROS Current Medications[1] Allergies[2] Review of Systems Constitutional: Negative for fatigue. HENT: Negative for rhinorrhea. Respiratory: Negative for cough and shortness of breath. Cardiovascular: Negative for chest pain. Gastrointestinal: Negative for abdominal distention. Musculoskeletal: Positive for arthralgias and back pain. Skin: Negative for rash. Neurological: Negative for dizziness. All other systems reviewed and are negative. Past Medical/Sx History: Social/FHx Medical History[3] Surgical History[4] Social History[5] Family History[6] OBJECTIVE: 03/25/2025 8:46 AM 03/23/2025 8:56 AM 02/16/2025 2:12 PM 01/25/2025 9:27 AM 12/24/2024 1:59 PM 09/17/2024 3:24 PM 03/10/2024 3:18 PM Vitals BMI 32.4 kg/m2 31.94 kg/m2 29.47 kg/m2 29.26 kg/m2 29.1 kg/m2 29.05 kg/m2 28.59 kg/m2 BSA (m2) 1.7 m2 1.68 m2 1.62 m2 1.61 m2 1.61 m2 1.61 m2 1.59 m2 Systolic 118 118 120 100 118 108 102 Diastolic 72 62 80 60 78 66 68 Heart Rate 99 90 76 SpO2 98 % 97 % 98 % Temp 96.8 ??F 98 ??F 97.5 ??F Height (in) 4' 10 4' 10 4' 10 Weight (lb) 155 152.8 141 140 139.25 139 136.8 Visit Report Report Report Report Physical Exam General Appearance: Alert and oriented. Pleasant affect. No acute distress. Well nourished. Head: Atraumatic normal cephalic. No masses or swelling. Eyes: EOMI, sclera white, conjunctiva clear, no injection. Pupils relatively equal size. Ears: External ears normal. No signs or trauma or infection. Nose: Nasal mucosal pink and moist, No discharge or congestion. Normal appearance of the soft tissue of the nose. Throat: Lips moist, Teeth and gums in good condition. Neck: Supple, no obvious range of motion deficits, no swelling or pain. Respiratory: Clear to auscultation bilaterally, no wheezes, rhonchi, crackles. Cardiovascular: Regular rate and rhythm, no murmurs. Normal S1, S2. Musculoskeletal/Extremities: No gross deformities or malalignment, normal ambulation, no swelling, no deformities. Skin: Warm and dry, no rashes. Neurological: Cranial nerves II-VII grossly intact, no gross neurologic abnormalities or focal defects. Psychiatric: Cooperative, pleasant, no signs of major mood disorder. [1] Current Outpatient Medications Medication Sig Dispense Refill Acetone, Urine, Test (Ketone Test) strip check urine FOR ketones with blood glucose greater THAN 250 mg/dL aspirin 81 MG EC tablet Take 81 mg by mouth in the morning. Baqsimi One Pack 3 MG/DOSE nasal powder Use to treat unresponsive hypoglycemia cholecalciferol (Vitamin D-3) 1.25 MG (06906 UT) capsule every week Continuous Blood Gluc Transmit (Dexcom G6 transmitter) misc Inject 1 each under the skin every 3 (three) months. Use as instructed 1 each 3 Continuous Glucose Sensor (Dexcom G7 Sensor) misc USE WITH OMNIPOD 5 TO MANAGE BLOOD SUGARS AND CHANGE EVERY 10 DAYS doxylamine (Unisom) 25 MG tablet Take 25 mg by mouth 4 (four) times a day as needed HumaLOG 100 UNIT/ML solution USE PER INSULIN PUMP INSTRUCTION MAX OF 80 UNITS DAILY 30 mL 0 Insulin Disposable Pump (Omnipod 5 ZkuD3W3 Pods Gen 5) misc Inject 1 each under the skin every 3 (three) days CHANGE POD EVERY 3 DAYS DIRECTED 30 each 3 insulin glargine (Lantus SoloStar) 100 UNIT/ML pen inject 22 units subcutaneously once daily 3 mL 1 ondansetron ODT (Zofran-ODT) 4 MG disintegrating tablet DISSOLVE 1 TABLET UNDER THE TONGUE EVERY 8 HOURS NEEDED FOR NAUSEA for up to 10 doses OneTouch Ultra Test test strip USE 1 STRIP TO CHECK GLUCOSE 4 TIMES DAILY Vit w/Zv-Xfbyutwsi-CN (PNV PO) Take by mouth promethazine (Phenergan) 25 MG tablet Take 25 mg by mouth every 6 (six) hours if needed pyridoxine (Vitamin B-6) 100 MG tablet Take 100 mg by mouth in the morning. No current facility-administered medications for this visit. [2] Allergies Allergen Reactions Amoxicillin Anaphylaxis Mouth irritation [3] Past Medical History: Diagnosis Date Awareness under anesthesia 2014 Woke up after administration on way to procedure Chronic cholecystitis 11/29/2022 covid and DKA 05/2021 Diabetic ketoacidosis associated with type 1 diabetes mellitus (HCC) 02/22/2017 Exercise-induced asthma (HCC) Lactose intolerance Postoperative wound infection Type 1 diabetes mellitus without complication (HCC) [4] Past Surgical History: Procedure Laterality Date CHOLECYSTECTOMY 11/2022 COLONOSCOPY 2015 normal EGD 2013 normal [5] Social History Tobacco Use Smoking status: Never Smokeless tobacco: Never Vaping Use Vaping status: Never Used Substance Use Topics Alcohol use: Not Currently Comment: Socially Drug use: Yes Frequency: 2.0 times per week Types: Marijuana Comment: Has not used any drugs other than those for medical reasons for the past 12 months [6] Family History Problem Relation Name Age of Onset Drug abuse Mother Mary Melendez Asthma Father Bryan Melendez Arthritis Father Bryan Melendez Stroke Paternal Grandfather Cancer Other Stroke Other Stroke Maternal Grandmother Jackie Ramirez Diabetes Sister Pj Melendez documented in this encounter Plan of Treatment DateTypeDepartmentCare Team (Latest Contact Info)Puauqstkdfm71/28/2025 11:20 AM EDTRoutine [facility] PORT[facility] [address] [place] [phone] Katharine Cummins PA [address] [place] [address] documented as of this encounter Goals GoalPatient Goal TypeAssociated ProblemsRecent ProgressPatient-Stated?Author Reminders Care PlanOB RemindersNoOpen Scheduling, Backgrounddocumented as of this encounter Visit Diagnoses Diagnosis Routine general medical examination at a health care facility- Primary Generalized anxiety disorder Celiac disease in pediatric patient (HCC) Mild intermittent asthma, unspecified whether complicated (HCC) documented in this encounter Additional Health Concerns Active ProblemsNoted DateDiagnosed DateOB Nabqbdscq39/24/2025 documented as of this encounter Care Teams Team MemberRelationshipSpecialtyStart DateEnd Date Joaquín Rodriguez DO [address] [place] [address] [facility] - [facility] Joaquín Rodriguez DO [address] [place] [address] PCP - Medical [place] Qxzyxfxmrr52/1/2312documented as of this encounter
--- OUTSIDE RECORDS SUMMARY | 2025-03-29 10:30 | XMS_ITS | Encounter Summary ---
Author Organization [facility] tem Address [id number] [address] 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) Social History Tobacco UseTypesPacks/DayYears UsedDateSmoking Tobacco: NeverSmokeless Tobacco: NeverAlcohol UseStandard Drinks/WeekCommentsYes0 (1 standard drink = 0.6 oz pure alcohol)socialHIGHLAND [facility] UtilitiesAnswerDate RecordedIn the past 12 months has the [employer], gas, oil, or water [employer] threatened to shut off services in your home?No02/17/2025UDIT-CAnswerDate RecordedQ1: How often do you have a drink containing alcohol?Never02/17/2025Q2: How many drinks containing alcohol do you have on a typical day when you are drinking?Patient does not drink02/17/2025Q3: How often do you have six or more drinks on one occasion?Never02/17/2025Overall Financial Resource Strain (CARDIA)AnswerDate RecordedHow hard is it for you to pay for the very basics like food, housing, medical care, and heating?Not hard at all02/17/2025PHQ-2AnswerDate RecordedTotal Ugodg449Finintermountain medical center [place] of Occupational Health - Occupational Stress QuestionnaireAnswerDate RecordedDo you feel stress - tense, restless, nervous, or anxious, or unable to sleep at night because yourmind is troubled all the time - these days?Not at all 02/17/2025PRAPARE - TransportationAnswerDate RecordedIn the past 12 months, has lack of transportation kept you from medical appointments or from getting medications?No02/17/2025In the past 12 months, has lack of transportation kept you from meetings, work, or from getting things needed for daily living?No 02/17/2025Housing InstabilityAnswerDate RecordedAre you worried or concerned that in the next two months you may not have stable housing that you own, rent or stay in as a part of a household?No02/17/2025hildcareAnswerDate RecordedDo problems getting child development teacher make it difficult for you to work or study?No 02/17/2025EmploymentAnswerDate RecordedDo you need help finding a local career center and/or a training program?No02/17/2025Hunger ScreeningAnswerDate Recorded Within the past 12 months we worried whether our food would run out before we got money to buy more.Never True02/17/2025Within the past 12 months the food we bought just didn't last and we didn't have money to get more.Never True 02/17/2025Purpose - LifeAnswerDate RecordedI have a purpose and direction in my life.Agree02/17/2025Estimated Date of XxrphknbAyhtbdzuCva54/27/2026Based on last menstrual period of 10/30/2024Sex and Gender InformationValueDate RecordedSex Assigned at CtncjCalfdh58/22/2025 1:51 AM EDTLegal SexFemale 01/13/2015 11:58 AM EDTGender PpzzzjmxWyfmvv21/22/2025 1:51 AM EDTSexual OrientationNot on filedocumented as of this encounter Progress Notes * Rosy Arredondo PA-C - 03/29/2025 10:30 AM EDT Maternal- Medicine Consultation VIRTUAL HISTORY OF PRESENT ILLNESS: Dalia Shaw is a 25 y.o. female at 21w3d due on Estimated Date of Delivery: 08/06/25 complicated by type 1 diabetes, BHAVNA. Does not have celiac 's Patient is feeling well today aside from increased back/hip pain. She denies contractions, vaginal bleeding, leaking fluid. She appreciates movement. Has been going high most often in early AM hrs and some mid day. On days she works, having a hard time eating at regular intervals. For when got high this morning, had fruit, veggies, pickles, and goldfish, no protein. On 03/25 when went very high, unsure of what she ate, or if there were issues with her pump. She has checked her urine for ketones and times she is high, and they have always been negative. She denies any abdominal pain, N/V, breathing changes, or overall feeling unwell. Works as [employer] WORK[employer], 3rd shift, 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, however has been trying to get moved to day shift. 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 Diagnosed with type 1 when she was 10 years old. Has been on omnipod pump for about 5 years, pump overall since 2014 Last had DKA in 2016 (uncontrolled) and again in 2020 (had covid) Exercise induced asthma- uses during only vigours exercse Denies cHTN, heart disease, or any other chronic medical problems. LMP 10/30/2024 PAST OBSTETRICAL HISTORY: OB History 1 Para 0 Term 0 0 AB 0 Living 0 SAB 0 IAB 0 Ectopic 0 Multiple 0 Live Births 0 Past Medical History: Diagnosis Date Diabetes mellitus type I ([facility] SURGICAL HISTORY: Past Surgical History: Procedure Laterality Date CHOLECYSTECTOMY 11/2022 COLONOSCOPY 2014 UPPER GASTROINTESTINAL ENDOSCOPY 2014 ALLERGIES: Allergies Allergen Reactions Amoxicillin Has since taken without reaction CURRENT MEDICATIONS: Current Outpatient Medications: acetaminophen (TylenoL) 325 mg tablet, Take 2 tablets (650 mg total) by mouth every 6 (six) hours as needed for pain., Disp: 30 tablet, Rfl: 0 acetone, urine, test (KETONE URINE TEST) strip, Check urine for ketones with blood glucose greater than 250mg/dl (Patient not taking: Reported on 02/17/2025), Disp: 100 strip, Rfl: 2 albuterol (PROVENTIL HFA;VENTOLIN HFA) 90 mcg/actuation inhaler, Inhale 2 puffs every 4 (four) hours as needed for wheezing., Disp: 18 g, Rfl: 0 aspirin 81 mg, Take 1 tablet (81 mg total) by mouth in the morning., Disp: 90 tablet, Rfl: 4 doxylamine (UNISOM) 25 mg tablet, Take 1 tablet (25 mg total) by mouth 4 (four) times a day as needed for nausea., Disp: 30 tablet, Rfl: 0 glucagon (BAQSIMI) 3 mg/actuation spray,non-aerosol, Use to treat unresponsive hypoglycemia (Patient not taking: Reported on 02/17/2025), Disp: 2 each, Rfl: 1 insulin lispro SUBCUTANEOUS PUMP (HumaLOG) 100 unit/mL patient supplied pump, Patient to self-manage pump according to the following the above parameters, Disp: , Rfl: insulin pump cart,auto,BT,G6/7 (OMNIPOD 5 G6-G7 PODS, GEN 5, SUBQ), Inject under the skin., Disp: ,Rfl: Lactobac no.41/Bifidobact no.7 (PROBIOTIC-10 ORAL), Take by mouth. (Patient not taking: Reported on02/17/2025), Disp: , Rfl: lidocaine (LIDODERM) 5 %, Place 1 patch on the skin daily. Remove & Discard patch within 12 hours or as directed by MD (Patient not taking: Reported on 02/17/2025), Disp: 30 patch, Rfl: 0 OMNIPOD DASH PODS, GEN 4, cartridge, , Disp: , Rfl: ondansetron ODT (ZOFRAN ODT) 4 mg disintegrating tablet, Dissolve 1 tablet (4 mg total) on tongue every 8 (eight) hours as needed for nausea for up to 10 doses., Disp: 10 tablet, Rfl: 0 promethazine (PHENERGAN) 25 mg tablet, Take 1 tablet (25 mg total) by mouth every 6 (six) hours as needed for nausea or vomiting., Disp: 15 tablet, Rfl: 0 pyridoxine, vitamin B6, (B-6) 100 mg tablet, Take 1 tablet (100 mg total) by mouth in the morning.,Disp: 30 tablet, Rfl: 0 LABS: Lab Results Component Value Date TSH 0.74 11/11/2023 No components found for: UPRC Lab Results Component Value Date CREATININE 0.63 02/17/2025 BUN 13 02/17/2025 K 3.5 02/17/2025 CL 103 02/17/2025 CO2 25 02/17/2025 Lab Results Component Value Date ALT 12 02/17/2025 AST 14 02/17/2025 ALKPHOS 52 02/17/2025 Lab Results Component Value Date HGBA1C 7.1 (A) 01/04/2025 HGBA1C 6.7 (H) 11/11/2023 HGBA1C 8.3 (H) 06/05/2021 No components found for: POCA1C REVIEW OF SYSTEMS: Head and Neck: Negative for any dizziness and headaches. Cardiovascular and Respiratory System: Denies any chest pain, shortness of breath, and coughing. Abdominal and System: Denies any abdominal pain, nausea, vomiting, vaginal bleeding, and vaginaldischarge PHYSICAL EXAMINATION: Gen: NAD DISCUSSION We previously reviewed the implications and risks of diabetes in . Diabetes in is associated with poorer outcomes if blood glucose levels are not well controlled. Potential effectsof uncontrolled diabetes , or hyperglycemia, include: macrosomia, hypoglycemia, shoulder dystocia, delivery by section, polyhydramnios, and demise. In addition, women with diabetes in are at increased risk of developing hypertension diseases in ,such as gestational hypertension, or preeclampsia. Patient was explained that the high risk of shoulder dystocia in fetuses with EFW 4500 gm or higher. Long-term risk to offspring from poor maternal glycemic control include: obesity, cardiovascular disease, impaired glucose tolerance and Type 2 diabetes. Hyperglycemia early in , at the time of conception, is associated with an increased risk of congenital anomalies. The most common anomalies seen are heart defects and neural tube defects. Increased risk for congenital anomalies increases with increasing A1c. Goal A1c is less than 6.0. Glucose goals in : Fasting 60 - 95: Mean fasting glucose values are important in managing diabetes in women because they provide overall glycemic estimate, and are predictive of increased fat mass in the women???s offspring. Increased fat mass has been shown to be associated with the development of childhood obesity, and diabetes. One hour postprandial 90 - 140: Postprandial measurements are important in management of diabetes in because they are associated with incidence of large for gestational age infants, and lower rates of delivery for cephalopelvic disproportion when well controlled. Discussed monitoring for hypogylcemia, signs/symptoms of hypoglycemia, and examples of treatment ofhypoglycemia ( rule). Discussed her current diet and her awareness of grams of carbohydrate per meal. Reviewed recommendations - 30g carbohydrate for breakfast, 45-60g carbohydrate for lunch and dinner, 15g carbohydrate for snacks, incorporating sufficient protein with each meal and ideally having half of plate be fruits and vegetables (with awareness of which fruits typically spike blood glucose). Encouraged her to be aware of carbohydrate intake and note which foods causing values above goal. Encouraged her on diet modifications. PLAN Diagnosis of type 1 diabetes: 2009 Endo outside of : [facility] ([facility]) - Current blood glucose control: suboptimal - Medication: - Omnipod 5 insulin pump Still having difficult control- going high most often in senior label specialist hours and mid day. Will adjust basal rates for these times Stressed she have protein with every meal and snack Stressed importance she not go more than 3hrs without having snack, encouraged healthy carb/proteinfor snack. May need to consider admission again if control does not improve Insulin Instructions Pump Settings- insulin lispro SUBCUTANEOUS PUMP 100 unit/mL patient supplied pump (HumaLOG) Last edited by Rosy Arredondo PA-C on 03/29/2025 at 10:48 AM Automode OFF as of 01/18. Active insulin time 3hrs Basal Rate Total Basal Dose: 25.75 units/day Time units/hr 12:00 AM 0.95 3:00 AM 0.9 6:00 AM 1.05 9:00 AM 1.15 1:00 PM 1.25 8:00 PM 0.9 10:00 PM 0.95 Blood Glucose Target Time mg/dL 12:00 AM 110 - 110 Sensitivity Factor Time mg/dL/unit 12:00 AM 40 Carb Ratio Time g/unit 12:00 AM 4 3:00 AM 4 6:00 AM 5 9:00 AM 5 4:00 PM 5 8:00 PM 5 10:00 PM 5 - Dexcom G7 CGM - continue use of - Continue aspirin 81mg once daily - Labs - A1c: 7.1 on 01/04/25 --> repeat ordered, plans to have done with other labs early Oct - Baseline preeclampsia labs: Plts nl, Cr, LFTs, 24hr urine protein normal. BNP not yet drawn - genetic screening low risk per patient - negative carrier screen per patient - Detailed anatomy survey and echocardiogram with MFM at 19-20 weeks - incomplete views - growth ultrasounds every 4 weeks after 28 weeks, which can be with primary OB - Recommend the following for testing, which can be done with primary OB: - Start NST and DVP once week at 28 weeks, then increase to NST twice weekly and DVP once weekly at32 weeks - Ophthalmology - due for eye exam, last 2018, plans to get referral through her endo - Delivery recommendations : - Timing of delivery most likely to be 37-38 weeks due to poorly controlled diabetes, however will need to continue to address at later gestation - Discuss delivery if estimated weight is >4500g - Upon arrival to hospital for delivery, change to temporary basal of 30% - Monitor patient's BG every 4hrs during latent labor, every 1 hr during active labor with goal BG to be less than 140mg/dl. Can use insulin sliding scale prn hyperglycemia. Once delivered, checked blood glucose fasting and 1hr post prandial, with goal of 100-130mg/dl for fasting and <180mg/dl for random or post prandial blood glucose levels - Assure patient has follow up with her PCP or director of housing within 2 weeks after delivery - MFM/Endocrinology referral placed for Dr Cerrato, however due to patient's insurance, she can only get her medication refilled through her current director of housing which is in network for her. Her plan does not allow her to see two endocrinologists, so she is unable to see Dr Cerrato at this time - patient has been trying to switch to day shift - I recommend this as well due to patient's difficult to control diabetes. Varying work hours can add additional significant challenges to managing her diabetes - EKG done - still needs echo to be performed Follow up in 1-2 weeks with Maternal- Medicine I request she keep sending values to us weekly by e-mail to: [email or web address] or by fax to: [phone] Rosy Arredondo PA-C Maternal- Medicine Office phone: [phone] Rosy Arredondo PA-C 03/29/25 1057 documented in this encounter Plan of Treatment DateTypeDepartmentCare Team (Latest Contact Info)Rmbxphasjpr05/04/2025 8:00 AM ESTTelemedicine Maternal- Medicine at [facility] [address] [place] [address] Poncho Jeffrey MD [address] [facility] [address] [place] [address] 04/14/2025 8:00 AM ESTAppointment [facility] [address] [place] [phone] NameTypePriorityAssociated DiagnosesOrder ScheduleB-type natriuretic peptideLab Routine Type 1 diabetes mellitus during in second trimester 1 Occurrences starting 03/29/2025 until 03/29/2026documented as of this encounter Visit Diagnoses Diagnosis Type 1 diabetes mellitus during in second trimester- Primary documented in this encounter Additional Health Concerns AssessmentNoted TimePHQ-9 Depression Total Score: 8:31 AM ESTA Body Mass Index follow-up plan has been documented for the lhkrmxu6106/12/2023 4:35 PM ESTdocumented as of this encounter Care Teams Team MemberRelationshipSpecialtyStart DateEnd Date Dru Rodriguez DO [address] [place] [address] PCP - General01/01/17documented as of this encounter
[2025-04-06 07:41] VITALS: BP 112/80; PULSE 92; O2SAT 97; BMI 30.3
--- OUTSIDE RECORDS SUMMARY | 2025-04-06 07:43 | XMS_ITS ---
Author Organization [facility] Source Produ ction (ClinicalSummary Clone) Address Unknown Care Team Providers Care Sustainability Executive Director Name Role Phone Unavailable Primary Care Physician Unavailab le Results * [UNITY] ANEUPLOIDY NIPT Performed by: eCircle Component Value Range Date Fraction 11.9% 01/12/2025 05:49 am UTCRh(D) NIPTRhD GFQQQSDM29/05/2025 05:49 am UTCSex Chromosome AneuploidyNOT YWBSBMSC63/05/2025 05:49 am UTCMonosomy XLOW RISK <1 in , 05:49 am UTCTrisomy 13LOW RISK <1 in , 05:49 am UTCTrisomy 18LOW RISK <1 in , 05:49 am UTCTrisomy 21LOW RISK <1 in , 05:49 am UTCFetal EwuAOYA4201/12/2025 05:49 am UTCPregnancy YbgycmhgzLDUAOEILH78/05/2025 05:49 am UTCFor detailed report, see PDFSee PDF 01/12/2025 05:49 am UTC01/12/2025 05:49 am UTC Social History Observation Value Start Date End Date
--- OUTSIDE RECORDS SUMMARY | 2025-04-06 07:43 | XMS_ITS | Encounter Summary ---
Author Organization [facility] Address [address] [place] [address] Care Team Providers Care Health And Safety Consultant Name Role Phone Dru Rodriguez DO Primary Care Provider [phone] Dru Rodriguez DO Unavailable [phone] Encounter Details DateTypeDepartmentCare Team (Latest Contact Info)Ertikdzvocl84/16/2025Travel Social History Tobacco UseTypesPacks/DayYears UsedDateSmoking Tobacco: NeverSmokeless [...] relatives?Twice a week03/11/2023How often do you attend latter day or oriental orthodox services?1 to 4 times per year03/11/2023o you belong to any clubs or organizations such as latter day groups, unions, fraternal or athletic laura ups, or school groups?No03/11/2023How often do you attend meetings of the clubs or organizations you belong to?Never03/11/2023re you , , , , never , or living with a partner?Xvhqjcq2703/11/2023 AUDIT-CAnswerDate RecordedQ1: How often do you have a drink containing alcohol? Monthly or less03/11/2023Q2: How many drinks containing alcohol do you have on a typical day when you are drinking?3 or Q3: How often do you have six or more drinks on one occasion?Less than njgjtbu5003/11/2023Overall Financial Resource Strain (CARDIA)AnswerDate RecordedHow hard is it for you to pay for the very basics like food, housing, medical care, and heating?Somewhat hard 03/11/2023HQ-2AnswerDate RecordedPatient Health Questionnaire-2 Score0 03/25/2025[facility] [place] of Occupational Health - Occupational Stress QuestionnaireAnswerDate [...] steady place to sleep or slept in ashelter (including now)?No3Estimated Date of ShyhwuxwCwkvgzcxEam57/27/2026Based on last menstrual period of 10/30/2024Sex and Gender InformationValueDate RecordedSex Assigned at YfxmjFzxgcx17/01/2023 1:10 PM EDTLegal GwdPdmvoi25/15/2023 6:51 PM EDTGender XacxhfvvEzmdsg47/01/2023 1:10 PM EDTSexual ZpyxnnagmocNfhcixmc34/01/2023 1:10 PM EDTdocumented as of this encounter Functional Status * Over the past 2 weeks, how often have you been bothered by any of the following problems?QuestionAnswerDate of AssessmentAuthorLittle interest or pleasure in doing thingsNot at all03/25/2025 8:57 AM Lesa Emanuel LPNFeeling down, depressed, or hopelessNot at all03/25/2025 8:57 AM Lesa Trevino LPNPatient Health Questionnaire-2 Rxhvo803 8:57 AM Lesa Emanuel LPN documented as of this encounter Plan of Treatment DateTypeDepartmentCare Team (Latest Contact Info)Xmmwxbevquc51/28/2025 11:20 AM EDTRoutine [facility] PORTILLO [address] [place] [phone] Katharine Cummins PA [address] [place], [place] [id number] documented as of this encounter Goals GoalPatient Goal TypeAssociated ProblemsRecent ProgressPatient-Stated?Author Reminders Care PlanOB RemindersNoOpen Scheduling, Backgrounddocumented as of this encounter Visit Diagnoses Not on filedocumented in this encounter Additional Health Concerns Active ProblemsNoted DateDiagnosed DateOB Iiryytxty02/24/2025 documented as of this encounter Care Teams Team MemberRelationshipSpecialtyStart DateEnd Date Dru Rodriguez DO [address] [place] [address] PCP - GeneralFamily Medicine10/22/22 Dru Rodriguez DO [address] [place] [address] PCP - Medical [place] Uqzefywbhm01/1/2312documented as of this encounter
--- OUTSIDE RECORDS SUMMARY | 2025-04-06 07:43 | XMS_ITS | Encounter Summary ---
Author Organization [facility] Address [address] [place] [address] Care Team Providers Care Windows Security Analyst Name Role Phone Dru Rodriguez DO Primary Care Provider [phone] Dru Rodriguez DO Unavailable [phone] Encounter Details DateTypeDepartmentCare Team (Latest Contact Info)Kitbsxhnjzi28/16/2025amboo flowsheet [facility] [address] [place] [phone] Dru Rodriguez, DO [address] [place] [address] Social History Tobacco UseTypesPacks/DayYears UsedDateSmoking Tobacco: NeverSmokeless [...] relatives?Twice a week03/11/2023How often do you attend religion or baptist services?1 to 4 times per year03/11/2023o you belong to any clubs or organizations such as religion groups, unions, fraternal or athletic laura ups, or school groups?No03/11/2023How often do you attend meetings of the clubs or organizations you belong to?Never03/11/2023re you , , , , never , or living with a partner?Lxktsfo3903/11/2023 AUDIT-CAnswerDate RecordedQ1: How often do you have a drink containing alcohol? Monthly or less03/11/2023Q2: How many drinks containing alcohol do you have on a typical day when you are drinking?3 or Q3: How often do you have six or more drinks on one occasion?Less than pgkzqgq8203/11/2023Overall Financial Resource Strain (CARDIA)AnswerDate RecordedHow hard is it for you to pay for the very basics like food, housing, medical care, and heating?Somewhat hard 03/11/2023HQ-2AnswerDate RecordedPatient Health Questionnaire-2 Score0 03/25/2025[facility] [place] of Occupational Health - Occupational Stress QuestionnaireAnswerDate [...] to sleep or slept in ashelter (including now)?No03/11/2023Estimated Date of EhxpwjkfMhlermqkHhs56/27/2026ased on last menstrual period of 10/30/2024Sex and Gender InformationValueDate RecordedSex Assigned at IxyedPsyxzo28/01/2023 1:10 PM EDTLegal IdjXgfrcy73/15/2023 6:51 PM EDTGender JbnqtxjjDhtwns20/01/2023 1:10 PM EDTSexual PcdopbodvxbDipmntrp95/01/2023 1:10 PM EDTdocumented as of this encounter Plan of Treatment DateTypeDepartmentCare Team (Latest Contact Info)Xqfqtwmuvvk91/28/2025 11:20 AM EDTRoutine [facility] Issac PORTILLO [address] [place] [phone] Katharine Cummins PA [address] [place] [address] documented as of this encounter Goals GoalPatient Goal TypeAssociated ProblemsRecent ProgressPatient-Stated?Author Reminders Care PlanOB RemindersNoOpen Scheduling, Backgrounddocumented as of this encounter Visit Diagnoses Not on filedocumented in this encounter Additional Health Concerns Active ProblemsNoted DateDiagnosed DateOB Drpgyrdyw83/24/2025 documented as of this encounter Care Teams Team MemberRelationshipSpecialtyStart DateEnd Date Dru Rodriguez DO [address] [place] [address] [facility] - [facility]10/22/22 Dru Rodriguez DO [address] [place] [address] PCP - Medical [facility]03/10/2312documented as of this encounter
--- OUTSIDE RECORDS SUMMARY | 2025-04-06 07:43 | XMS_ITS | Encounter Summary ---
Author Organization [facility] tem Address [id number] [place] [address] Care Team Providers Care Engineer Station Mainline Name Role Phone Dru Rodriguez Primary Care Provider [phone]- [phone] Encounter Details DateTypeDepartmentCare Team (Latest Contact Info)Obbhkxsvrvn84/20/2025Orders Only Maternal- Medicine at [facility] [address] [facility] [place] [phone] Lula Fernandez RN Social History Tobacco UseTypesPacks/DayYears UsedDateSmoking Tobacco: NeverSmokeless Tobacco: NeverAlcohol UseStandard Drinks/WeekCommentsYes0 (1 standard drink = 0.6 oz pure alcohol)[facility] UtilitiesAnswerDate RecordedIn the past 12 months has the mGenerator, gas, oil, or water [employer] threatened to shut off services in your [...] care, and heating?Not hard at all02/17/2025PHQ-2AnswerDate RecordedTotal Dqhnj28906/12/2023Finmount[facility] Occupational Health - Occupational Stress QuestionnaireAnswerDate [...] part of a household?No02/17/2025hildcareAnswerDate RecordedDo problems getting childcare administrator make it difficult for you to work [...] and direction in my life.Agree02/17/2025Estimated Date of ThcmwbqbGisgwbdyTmu00/27/2026Based on last menstrual period of 10/30/2024Sex and Gender InformationValueDate RecordedSex Assigned at SmjwmLlszwf56/22/2025 1:51 AM EDTLegal SexFemale 01/13/2015 11:58 AM EDTGender OeiximvzWzwvsq48/22/2025 1:51 AM EDTSexual OrientationNot on filedocumented as of this encounter Plan of Treatment DateTypeDepartmentCare Team (Latest Contact Info)Ejjjuwwrjdf26/04/2025 8:00 AM ESTTelemedicine Maternal- Medicine at [facility] [address] [facility] [place] [phone] Poncho Jeffrey MD [address] [place] [address] 04/14/2025 8:00 AM ESTAppointment [facility] [address] [facility] [place] [phone] documented as of this encounter Visit Diagnoses Not on filedocumented in this encounter Additional Health Concerns AssessmentNoted TimePHQ-9 Depression Total Score: 8:31 AM ESTA Body Mass Index follow-up plan has been documented for the xqfkyvy1306/12/2023 4:35 PM ESTdocumented as of this encounter Care Teams Team MemberRelationshipSpecialtyStart DateEnd Date Dru Rodriguez DO [address] [place] [address] PCP - General01/01/17documented as of this encounter
--- OUTSIDE RECORDS SUMMARY | 2025-04-06 07:43 | XMS_ITS | Clinical Summary ---
Author Organization [employer] [facility] tem Address [id number] [address] [place] [address] Care Team Providers Care Boat Fueler Name Role Phone Dru Rodriguez April DO Primary Care Provider [phone] Allergies Active AllergyReactionsCriticalityNoted CscoIyfllpdsOzpmjtqjyvu40/14/2016 Has since taken without reaction Medications * This document contains information received from the source organization and may not represent a complete record from that organization. MedicationSigDispense QuantityRefillsLast FilledStart DateEnd DateStatus albuterol (PROVENTIL HFA;VENTOLIN HFA) 90 mcg/actuation inhaler Indications:COVIDInhale 2 puffs every 4 (four) hours as needed for wheezing. 18 g 06/08/2021ctive Lactobac no.41/Bifidobact no.7 (PROBIOTIC-10 ORAL) Take by mouth.Active lidocaine (LIDODERM) 5 % Place 1 patch on the skin daily. Remove & Discard patch within 12 hours or as directed by 30 patch 04/15/2022ctive Additional Information Patient not taking.Reported on 02/17/2025 OMNIPOD DASH PODS, GEN 4, cartridge 04/12/2022ctive acetaminophen (TylenoL) 325 mg tablet Take 2 tablets (650 mg total) by mouth every 6 (six) hours as needed for pain. 30 tablet 09/12/2022ctive ondansetron ODT (ZOFRAN ODT) 4 mg disintegrating tablet Dissolve 1 tablet (4 mg total) on tongue every 8 (eight) hours as needed for nausea for up to 10 doses. 10 tablet 5Active promethazine (PHENERGAN) 25 mg tablet Take 1 tablet (25 mg total) by mouth every 6 (six) hours as needed for nausea or vomiting. 15 tablet 5Active pyridoxine, vitamin B6, (B-6) 100 mg tablet Take 1 tablet (100 mg total) by mouth in the morning. 30 tablet 5Active doxylamine (UNISOM) 25 mg tablet Take 1 tablet (25 mg total) by mouth 4 (four) times a day as needed for nausea. 30 tablet 5Active insulin pump cart,auto,BT,G6/7 (OMNIPOD 5 G6-G7 PODS, GEN 5, SUBQ) Inject under the skin.Active acetone, urine, test (KETONE URINE TEST) strip Indications:Type 1 diabetes mellitus during in first trimesterCheck urine for ketones with blood glucose greater than 250mg/dl 100 strip 5Active Additional Information Patient not taking.Reported on 02/17/2025 aspirin 81 mg Indications:Type 1 diabetes mellitus during in first trimesterTake 1 tablet (81 mg total) by mouth in the morning. 90 tablet 5Active glucagon (BAQSIMI) 3 mg/actuation spray,non-aerosol Use to treat unresponsive hypoglycemia 2 each 5Active Additional Information Patient not taking.Reported on 02/17/2025 insulin lispro SUBCUTANEOUS PUMP (HumaLOG) 100 unit/mL patient supplied pump Patient to self-manage pump according to the following the above parameters 5Active Active Problems ProblemNoted DateDiagnosed DateUncontrolled type 1 diabetes mellitus with hyperglycemia, with long-term current use of wetnbfd4902/17/2025Type 1 diabetes mellitus during in second nyzyqgonn37/11/2025DKA, type 1, not at goal 01/06/2018Diabetic ketoacidosis associated with type 1 diabetes mellitus 02/22/2017Acute renal kjwqgquxftdwd30/11/2017Mechanical breakdown of insulin pump02/18/2017Generalized anxiety yvfmluys37/25/2017Panic disorder without mejvqsmehfo68/25/2017DKA, type Mild intermittent ntgvco7105/23/2016 Estimated Date of UrtshxgyOarpyrkiFxa22/27/2026ased on last menstrual period of 10/30/2024 Resolved Problems ProblemNoted DateDiagnosed DateResolved DateCeliac disease in pediatric patient Encounters DateTypeDepartmentCare ImriFnskyjfnixf87/27/2025Orders Only Maternal- Medicine at [facility] [address] [facility] [place] [address] Clarita Mchugh CMA 03/29/2025 10:30 AM EDTTelemedicine Maternal- Medicine at [facility] [address] [place] [address] Rosy Arredondo, ANDRE Type 1 diabetes mellitus during in second trimester (Primary Dx) 03/29/20251578Hrhjlw83/20/2025Orders Only Maternal- Medicine at [facility] [address] [place] [address] Lula Fernandez, RN 03/29/2025Orders Only Maternal- Medicine at [facility] [address] [place] [address] Debby Garcia, RN 03/24/2025Telephone Maternal- Medicine at [facility] [address] [place] [address] Maritza Milian 03/17/2025Telephone Maternal- Medicine at [facility] [address] [place] [address] Maritza Milian 03/16/2025 7:57 AM EDT - 03/16/2025 11:59 PM EDTHospital Encounter [facility] - Ultrasound [address] [place] [address] Type 1 diabetes mellitus during in first trimester Discharge Disposition: Home03/15/2025 3:30 PM EDTTelemedicine Maternal- Medicine at [facility] [address] [place] [facility] [place] [address] Rosy Arredondo, ANDRE Type 1 diabetes mellitus during in second trimester (Primary Dx) 03/15/2025Telephone Maternal- Medicine at [facility] [address] [place] [address] Debby Garcia, BRANDT 03/15/20257142Hrqfmb58/06/2025Orders Only Maternal- Medicine at [facility] [address] [place] [address] Debby Garcia, BRANDT 03/09/2025Orders Only Maternal- Medicine at [facility] [address] [place] [address] Yahaira Miller MD 03/09/2025Orders Only Maternal- Medicine at [facility] [address] [place] [address] Yue Bullock RN 03/09/2025Remote Patient Monitoring Maternal- Medicine at [facility] [address] [place] [address] Yahaira Miller MD Pre-existing type 1 diabetes mellitus with hyperglycemia during in second trimester ([facility]) (Primary Dx)03/08/2025Orders Only Maternal- Medicine at [facility] [address] [place] [address] Clarita Mchugh, YARIEL 03/03/2025 10:30 AM EDTTelemedicine Maternal- Medicine at [facility] [address] [place] [facility] [place] [address] Carin Mathur, CLINICAL AUDITOR-COLLECTIONS OFFICER Uncontrolled type 1 diabetes mellitus with hyperglycemia, with long-term current use of insulin ([facility]) (Primary Dx)03/03/2025Telephone Maternal- Medicine at [facility] [address] [place] [address] Lula Fernandez, RN 03/03/20251060Fhdaek60/24/2025Orders Only Maternal- Medicine at [facility] [address] [place] [address] Lula Fernandez, RN 02/24/2025[facility] [address] [place] [address] Radha Bruno, BRANDT Outgoing Call02/22/2025Orders Only Maternal- Medicine at [facility] [address] [place] [address] Rosy Arredondo PA-C 02/22/2025Orders Only Maternal- Medicine at [facility] [address] [place] [address] Clarita Mchugh, [facility] 02/19/2025Orders Only Maternal- Medicine at [facility] [address] [place] [address] Clarita Mchugh, DIRECTOR EDUCATIONAL RADIO 02/17/2025 6:11 PM EDT - 02/22/2025 3:30 PM EDTHospital Encounter [facility] - GEN 3 Antepartum [address] [facility] [place] [address] Annamarie Dave MD Uncontrolled type 1 diabetes mellitus with hyperglycemia, with long-term current use of insulin ([facility]) Discharge Disposition: Home02/17/2025 2:30 PM EDTOffice Visit Maternal- Medicine at [facility] [address] [facility] [place] [address] Yahaira Miller MD Pre-existing type 1 diabetes mellitus with hyperglycemia during in second trimester ([facility]) (Primary Dx); Uncontrolled type 1 diabetes mellitus with hyperglycemia, with long-term current use of insulin ([facility]); 15 weeks gestation of ; History of diabetic spspmrdgptvi45/10/9680Scydej55/10/2025Telephone [facility] [address] [place] [address] Sharon Goins CMA 02/12/2025Telephone Maternal- Medicine at [facility] [address] [place] [address] Odilia Dumas, BRANDT 02/12/2025Orders Only Maternal- Medicine at [facility] [address] [place] [address] Odilia Dumas, RN 2025Telephone [facility] [address] [place] [address] Lara Sams RN 2025Orders Only Maternal- Medicine at [facility] [address] [place] [address] Carin Mathur, CLINICAL AUDITOR-COLLECTIONS OFFICER 2025Orders Only Maternal- Medicine at [facility] [address] [place] [address] Odilia Dumas, RN 02/03/2025Documentation Maternal- Medicine at [facility] [address] [place] [address] Yue Bullock, RN 02/02/2025Telephone Maternal- Medicine at [facility] [address] [place] [address] Yue Bullock, RN 02/01/2025Orders Only Maternal- Medicine at [facility] [address] [place] [address] Bhumi Duval MD 02/01/2025Orders Only Maternal- Medicine at [facility] [address] [facility] [place] [address] Kimberly Romero RN Type 1 diabetes mellitus during in first trimester (Primary Dx) 02/01/20257667Tktbhz65/21/2025Telephone Maternal- Medicine at [facility] [address] [place] [address] EduardoteriMaritza 01/26/2025Telephone Maternal- Medicine at [facility] [address] [place] [address] Maritza Milian 01/25/2025 3:30 PM EDTTelemedicine Maternal- Medicine at [facility] [address] [place] [address] Rosy Arredondo, LUIS ALFREDOC Type 1 diabetes mellitus during in first trimester (Primary Dx) 01/25/20251363Hqsxgt81/11/2025 1:00 PM EDTOffice Visit Maternal- Medicine at [facility] [address] [place] [address] Rosy Arredondo, ANDRE Type 1 diabetes mellitus during in first trimester (Primary Dx) 01/18/2025 11:30 AM EDTSupport Visit Maternal- Medicine at [facility] [address] [facility] [place] [address] Pre-existing type 1 diabetes mellitus in in first /11/2025 10:30 AM EDTSupport Visit Maternal- Medicine at [facility] [address] [place] [address] Katie Orozco LD Pre-existing type 1 diabetes mellitus in in first jhitghzkr22/11/2025 Drcayq0401/08/2025 1:47 PM EDT - 01/08/2025 3:55 PM EDTEmergency [facility] - Emergency [address] [place] [address] Bello Caal MD Nausea and vomiting during (Primary Dx) Discharge Disposition: Home01/08/20251634Onzpol27/31/2025Orders Only Maternal- Medicine at [facility] [address] [place] [address] Ref Prov, Not In System 01/07/2025bstract Maternal- Medicine at [facility] [address] [place] [address] Rosy Arredondo PA-C from Last 3 Months Immunizations ImmunizationAdministration DatesNext DueCOVID-19, mRNA, LNP-S, PF, 30mcg/0.3mL Dose03/21/2021,02/28/2021 Family History Medical HistoryRelationNameCommentsAsthmaFatherDiabetesMaternal GrandmotherDrug abuseMotherColon cancerPaternal GrandfatherDiabetesSisterHeart murmurSister Breast cancerNeg HxCancerNeg HxHypertensionNeg HxOvarian cancerNeg HxPancreatic cancerNeg HxProstate cancerNeg HxStrokeNeg HxUterine cancerNeg HxRelationName StatusCommentsFatherAliveMaternal GrandmotherMotherDeceasedPaternal Grandfather DeceasedSister Social History Tobacco UseTypesPacks/DayYears UsedDateSmoking Tobacco: NeverSmokeless Tobacco: Never Tobacco Cessation:Counseling Given: Not Answered Alcohol UseStandard Drinks/WeekCommentsYes0 (1 standard drink = 0.6 oz pure alcohol)nGAP UtilitiesAnswerDate RecordedIn the past 12 months has the [facility], [employer], or water [employer] threatened to shut off services in your [...] care, and heating?Not hard at all02/17/2025PHQ-2AnswerDate RecordedTotal Tegfz44206/12/2023[facility] Occup[facility] - Occupational Stress QuestionnaireAnswerDate [...] part of a household?No02/17/2025hildcareAnswerDate RecordedDo problems getting early childhood teacher make it difficult for you to [...] and direction in my life.Agree02/17/2025Estimated Date of KoypipwpUfiqejspOrb37/27/2026Based on last menstrual period of 10/30/2024Sex and Gender InformationValueDate RecordedSex Assigned at WlmpcRcsemz57/22/2025 1:51 AM EDTLegal SexFemale 01/13/2015 11:58 AM EDTGender BedpyfgiQpctqc58/22/2025 1:51 AM EDTSexual OrientationNot on file Last Filed Vital Signs Vital SignReadingTime TakenCommentsBlood Gvprkljq126/61002/22/2025 8:23 AM EDT Vrnnd249202/22/2025 8:23 AM MKETawbwrtnwyg49.8 ??C (98.2 ??F)02/22/2025 8:23 AM EDTRespiratory Dwtw973802/22/2025 8:23 AM EDTOxygen Tmflijziec039%01/08/2025 3:26 PM EDTInhaled Oxygen Concentration--Ggjdot05.1 kg (143 lb 9.6 oz)02/17/2025 6:00 PM QTZXlljni697.3 cm (4' 9.99 )02/17/2025 6:00 PM EDTBody Mass Index30.02 02/17/2025 6:00 PM EDT Plan of Treatment DateTypeDepartmentCare Team (Latest Contact Info)Ttenbahxreh01/04/2025 8:00 AM ESTTelemedicine Maternal- Medicine at [facility] [address] [place] [address] Poncho Jeffrey MD [address] [facility] [address] [place] [address] 04/14/2025 8:00 AM ESTAppointment [facility] Imaging [address] [place] [address] Health MaintenanceDue DateLast DoneCommentsDiabetic Ophthalmology Exam2001 Diabetic Foot Exam2019Chlamydia Eaihtbdwa55/dult BMI Follow Up Plan501/epression Atajsemcf32/OVID- 19 Vaccine ( season)/11/2021, 03/21/2021, 1Adult BMI Lxldrjntt44/03/2025Tobacco Vteesyxjz06/03/2025Pap Smear /02/2025, 10/24/2022DTaP,Tdap and Td Vaccines (8 - Td or Tdap) 3107/31/2022, 03/02/2013, 03/18/2008, Additional history existsInfluenza UhmmqumZndvvtdlw77/08/2025, 03/18/2024, 06/12/2023, Additional history exists Medical Devices ImplantedTypeAreaManufacturerDevice IdentifierShelf Expiration DateModel / Serial / LotNexplanonDescription: control implant in right upper arm Procedures Procedure NamePriorityDate/TimeAssociated DiagnosisCommentsUS [facility] COMPREHENSIVE ANATOMIC CYYGQUCxhoaki38/07/2025 9:52 AM EDT Type 1 diabetes mellitus during in first trimester BEDSIDE GODQGBOWhndgog98/15/2025 1:59 PM EDT BEDSIDE LYPUBMUGyajtzg88/15/2025 12:57 PM EDT BEDSIDE AZMHTEZMtdwvzb29/15/2025 11:44 AM EDT BEDSIDE UCZYPIGIonkuws61/15/2025 11:19 AM EDT BEDSIDE RLTHKSEYnfvjnd87/15/2025 10:59 AM EDT BEDSIDE MDAWBHWYdtifzr08/15/2025 9:11 AM EDT BEDSIDE XFXDNMKKgtlljq15/15/2025 5:47 AM EDT BEDSIDE DFWPHYHPnxdkrb73/15/2025 3:08 AM EDT BEDSIDE TUGJMRAHnblqsu79/15/2025 12:37 AM EDT BEDSIDE HVAVUTLUwekvhs37/15/2025 12:16 AM EDT BEDSIDE XKBZRTSRqyslkq02/14/2025 9:46 PM EDT BEDSIDE BIGSGSIImndozk61/14/2025 9:25 PM EDT BEDSIDE GNCHGKXXhvepkw71/14/2025 7:21 PM EDT BEDSIDE OMZGLTLYetlopk20/14/2025 6:15 PM EDT BEDSIDE FCXQSUJAwodpvk07/14/2025 5:42 PM EDT BEDSIDE CUICAWBDxkvflw94/14/2025 5:24 PM EDT BEDSIDE CPJDWVCJyajfvp21/14/2025 5:08 PM EDT BEDSIDE SCMJWFVQurslfr85/14/2025 3:19 PM EDT BEDSIDE ISTSECICblouvc44/14/2025 2:49 PM EDT BEDSIDE YLYAVTWKzgapuv33/14/2025 1:40 PM EDT BEDSIDE AWKMIQZWlsxldz20/14/2025 10:19 AM EDT BEDSIDE YXFHKTSWjedgek69/14/2025 9:08 AM EDT BEDSIDE TDIKXSBRsimdpg07/14/2025 6:15 AM EDT BEDSIDE IYJRXHQAqrjgfm59/14/2025 3:17 AM EDT BEDSIDE PWMEVAMCkzpxtv11/14/2025 12:03 AM EDT BEDSIDE EJYEIRLPbpirco53/13/2025 9:10 PM EDT BEDSIDE HLFWHMILlcajvg62/13/2025 7:46 PM EDT BEDSIDE EQMPFATMjobvdd73/13/2025 7:27 PM EDT BEDSIDE HYTUGMIMhldtvw30/13/2025 6:17 PM EDT BEDSIDE UCOPSTYIgltbkf77/13/2025 5:11 PM EDT BEDSIDE LATVTUCBgcpcqb54/13/2025 2:22 PM EDT BEDSIDE UWMSWBGTymfbqa20/13/2025 1:21 PM EDT BEDSIDE KEHEGXILrarlyz61/13/2025 10:24 AM EDT BEDSIDE VZOZXAOJyfkfzt03/13/2025 9:12 AM EDT BEDSIDE CPAFUAJDrmbjzj89/13/2025 8:22 AM EDT BEDSIDE TRQTDTIPfsoozv25/13/2025 7:40 AM EDT BEDSIDE JIIAMXQWzmmfdv53/13/2025 6:01 AM EDT BEDSIDE UVCYYMSVihjgvk71/13/2025 2:57 AM EDT BEDSIDE ZLKZKYHUqyhjro87/12/2025 11:57 PM EDT BEDSIDE JUKBGKHAcnlhpn96/12/2025 9:25 PM EDT BEDSIDE AKOQTFDLhoqezc37/12/2025 8:58 PM EDT BEDSIDE ZRLJEYTQlwghin19/12/2025 6:52 PM EDT BEDSIDE IBRPFICTjoaptd48/12/2025 5:51 PM EDT BEDSIDE CISVHVZGplziun17/12/2025 2:42 PM EDT BEDSIDE REAXIOAQsuloug10/12/2025 1:38 PM EDT BEDSIDE IXVFLOFVveyuzb48/12/2025 1:16 PM EDT BEDSIDE YVSGTDODhcfvkr60/12/2025 12:55 PM EDT BEDSIDE GZZESRGIakejou98/12/2025 12:34 PM EDT BEDSIDE RNLVZQIWgupgsr98/12/2025 9:55 AM EDT BEDSIDE WERPOGEKshdgzc64/12/2025 8:53 AM EDT PROTEIN, URINE, 24 ZUAZQrzemev53/12/2025 6:57 AM EDT BEDSIDE GPDYYSAIltlysh28/12/2025 5:27 AM EDT BEDSIDE VKDOIFZMgmqkdi39/12/2025 4:51 AM EDT BEDSIDE OVWEHFTErvkgew17/12/2025 3:14 AM EDT BEDSIDE AMZEXYIItktyzm48/12/2025 12:01 AM EDT BEDSIDE STJBOFCUkjkyzf79/11/2025 9:04 PM EDT BEDSIDE KNWVNYCEivgqmm99/11/2025 7:02 PM EDT BEDSIDE RGWVZCXDzdbbih22/11/2025 5:53 PM EDT BEDSIDE SUHYMXGUgyddoi34/11/2025 2:42 PM EDT ECG 12-CWCHDbghipr59/11/2025 10:54 AM EDT BEDSIDE HEETPZHMlxyylx79/11/2025 10:37 AM EDT BEDSIDE AMYDMTEBakbtne31/11/2025 10:11 AM EDT BEDSIDE YZTRRMLPlpdhas88/11/2025 9:34 AM EDT EXTRA TUBES LAVENDER USAUfpxpxl89/11/2025 8:20 AM EDT EXTRA MBRVDDkakhid08/11/2025 8:20 AM EDT URIC ACIDAdd-On02/18/2025 8:20 AM EDT LDHAdd-On02/18/2025 8:20 AM EDT BEDSIDE WUSMOFFVuntdzb77/11/2025 6:03 AM EDT BEDSIDE AEXGXTFRoliimu32/11/2025 2:47 AM EDT BEDSIDE BGBFTBMInbddre87/11/2025 2:26 AM EDT BEDSIDE JQQMAOEYeezpmt47/11/2025 2:06 AM EDT BEDSIDE OYUYSLNMwwbuzw15/10/2025 9:45 PM EDT NWHVBFSGEMBKKS78/10/2025 7:25 PM EDT URINE PVHZOLBTJWV85/10/2025 7:25 PM EDT EXTRA TUBES SST MCSOenzrny50/10/2025 7:17 PM EDT EXTRA YABCPXqflsdp76/10/2025 7:17 PM EDT CBC WITH AUTO NURJCKWPENOBBHSH74/10/2025 7:17 PM EDT ACETONE,(BETAHYDROXYBUTYRATE, KETONE) QUANTITATIVE EFYQYNgncmfi27/10/2025 7:16 PM EDT COMPREHENSIVE METABOLIC TLKQYGJOS42/10/2025 7:16 PM EDT BEDSIDE ZLAKOKLWaizkaq98/10/2025 7:15 PM EDT BLOOD GAS, PRLVSDAGJT73/01/2025 2:50 PM EDT MAGNESIUMSTAT Add-on01/08/2025 2:14 PM EDT ACETONE,(BETAHYDROXYBUTYRATE, KETONE) QUANTITATIVE SWZBEDBLG34/01/2025 2:14 PM EDT BASIC METABOLIC UIZJHROUF66/01/2025 2:14 PM EDT CBC WITH AUTO RARQBAUKLIPUWAUY24/01/2025 2:14 PM EDT EXTRA TUBES SST ZCYXnjaufa22/01/2025 2:13 PM EDT EXTRA TUBES BLUE QJKStilzul50/01/2025 2:13 PM EDT EXTRA MILZZXigdvoq15/01/2025 2:13 PM EDT US PREG LMTD 1 OR MORE XFGBJYiuytyh27/31/2025 9:22 AM EDTTYPE AND SCREENRoutine 01/04/2025 HIV 1&2 AB/AG SCREEN (P24 AG)Ispdmuy5301/04/2025 HEMOGLOBIN K6WWdgaxke26/28/2025 BASIC METABOLIC UPXFVYqfrphe60/28/2025 DRUG SCREEN, JRSOAPqzsikc43/28/2025 CBC (NO DIFF)Fozfhjj7901/04/2025 PAP KUMMPBlbwbqn51/24/2022 10:35 AM EDT Cervical smear, as part of routine gynecological examination CHLAMYDIA/GC BY PCR OMAIRA HTTWBrrxkvf32/11/2022 6:33 PM EDT Menorrhagia with irregular cycle Metrorrhagia DUB (dysfunctional uterine bleeding) from Last 3 Months or Most Recently Relevant to Health Maintenance Results * [facility] COMPREHENSIVE ANATOMIC SURVEY (03/16/2025 9:52 AM EDT)Anatomical RegionLateralityModalityOB-GYNUltrasoundSpecimen (Source)Anatomical Location / LateralityCollection Method / VolumeCollection TimeReceived Time03/16/2025 8:09 AM EDT Narrative 03/16/2025 2:47 PM EDT NAME: ??DARREN ART : 2000 SEX: F Accession Number: [id number] ORDERING PHYSICIAN: ROSY ARREDONDO REFERRING PHYSICIAN: BRYANT PULLIAM Coding Procedures ? 35109: Ultrasound, uterus, real time with image documentation, and maternal evaluation ? plus detailed anatomic examination, transabdominal approach;single or first gestation ? 96988: Ultrasound, uterus, real time with image documentation, transvaginal ? 77131: 3D rendering with interpretation and reporting of computed tomography, magnetic resonance imaging, ? ultrasound, or other tomographic modality with image postprocessing under concurrent supervision; not ? requiring image postprocessing on an independent workstation Indication Screening for Anatomic Survey, Screening for cervical length, Pre-existing Type 1 diabetes in , Screening for congenital cardiac abnormality. History OB History ? 1 Current Cell free DNA ?low risk analysis Maternal Assessment Physical Exam ??Height 147 cm, 4 ft 10 in. Initial weight 56 kg, 123 lb. Initial BMI 25.71 kg/m?? Method Transabdominal and transvaginal ultrasound examination. View: Suboptimal view: limited by position. Medical Saturation Diver Saturation Diver declined [place] . Number of fetuses: 1 Dating LMP on: ?10/30/2024 GA by LMP ?19 w + 4 d MANDO by LMP: ?08/06/2025 Previous Ultrasound on: ?12/24/2024 Type of prior assessment: ?GA GA at prior assessment date ?7 w + 3 d GA by previous U/S ? 19 w + 1 d MANDO by previous Ultrasound: ?08/09/2025 Ultrasound examination on: ? 03/16/2025 GA by U/S based upon: ??AC, BPD, Femur, HC GA by U/S ?19 w + 3 d MANDO by U/S: ?08/07/2025 Assigned: ?based on the LMP, selected on 03/16/2025 Assigned GA (weeks days) ? 19 w + 4 d Assigned MANDO: ??08/06/2025 General Evaluation Cardiac activity Present. FHR 132 bpm. Presentation: cephalic Placenta: Placental site: posterior, away from cervical os Umbilical cord: Cord vessels: 3 vessel cord. Insertion site: normal insertion Amniotic fluid: Amount of AF: normal amount. MVP 2.9 cm Biometry Standard BPD ?45.6 mm 19w 5d 60% Hadlock OFD ?58.9 mm 20w 3d 80% Randolph HC ? 168.8 mm ?19w 4d 40% Hadlock Cerebellum tr ??19.5 mm 18w 6d 35% Hill Nuchal fold ?3.3 mm AC ? 140.5 mm ?19w 3d 40% Hadlock Femur ??29.3 mm 19w 0d 24% Hadlock Humerus ?29.4 mm 19w 4d 54% Randolph HC / AC ?1.20 ? 71% Hadlock EFW ?284 g ?29% Hadlock EFW (lb) ? 0 lb EFW (oz) ? 10 oz EFW by: ?Hadlock (CFA-MT-PS-FL) Extended Tibia ??25.1 mm 18w 6d 33% Randolph Marker Maker ? 6.5 mm CM ? 3.4 mm ?? 9% Nicolaides Head / Face / Neck Cephalic index 0.77 ? 34% Nicolaides Nasal bone: ?not examined Extremities / Bony Struc FL / BPD ? 0.64 ? 12% Hadlock FL / HC ?0.17 ? 8% Hadlock FL / AC ?0.21 ? 30% Hadlock Other Structures FHR ?132 bpm Anatomy The following structures appear normal: Head/Neck: Cranium. Lateral ventricles. Choroid plexus. Midline falx. Cavum septi pellucidi. Cerebellum. Cisterna ? magna. Parenchyma. Vermis. ? Neck. Nuchal fold. Face: Lips. Nose. Heart/Thorax: Right lung. Left lung. Abdomen: Abdom. wall. Cord insertion. Stomach. Kidneys. Bladder. Small bowel. Large bowel. Right renal artery. ? Left renal artery. Genitals. Spine: Cervical spine. Thoracic spine. Lumbar spine. Sacral spine. Extremities/Skeleton: Right upper arm. Right forearm. Right hand. Left upper arm. Left forearm. Left hand. Right upper leg. ? Right lower leg. Right foot. Left upper leg. Left lower leg. Left foot. The following structures could not be adequately visualized: Heart / Thorax 4-chamber view. 1-ixhcnc-ylozlqo view. ? Diaphragm. The following structures could not be examined: Face ?? Profile. Nasal bone. Maxilla. Mandible. Orbits. Heart / Thorax RVOT view. LVOT view. 3-vessel view. Great vessels. Echocardiogram Situs ?situs solitus (normal) Cardiac position ? normal Cardiac axis ?? normal Cardiac size ?? normal (approx. 1/3 of thoracic area) Cardiac rhythm regular (normal) 4-chamber view suboptimal LVOT view ?not examined RVOT view ?not examined 3-vessel view ??not examined 0-spsqrb-ntbmyrd view ??suboptimal Aortic arch view ? not examined Ductal arch view ? not examined Bicaval view ?? normal Interventricular septum ?not examined Venous-atrial connections ?normal AV connections not examined VA connections not examined Pulmonary veins ?normal Right atrium ?? suboptimal Left atrium ? suboptimal Atrial septum ??suboptimal Foramen ovale ??suboptimal Right ventricle ?suboptimal Left ventricle suboptimal Ventricular septum ? suboptimal Cross-over gr. arteries ?not examined Main PA ?not examined Pulmonary arteries ? not examined Linear insertion of AV valves ??no Pericardial effusion ?? no Maternal Structures Uterus Visualized Cervix Visualized ? Cervical length 3.29 cm Right Ovary ?Visualized ? Size 2.8 cm x 2.1 cm x 1.0 cm. Vol 3.0 cm?? Left Ovary ? Visualized ? Size 3.1 cm x 3.1 cm x 2.1 cm. Vol 10.5 cm?? Cul de Sac ? Visualized Impression Single live intrauterine consistent with 19w 4d with an MANDO of 08/06/2025. Normal growth. EFW measures at the 29%, AC measures at the 40%. Transvaginal cervical length measures 3.29 cm. Amniotic fluid MVP measures 2.9 cm. Recommendations The patient is scheduled in four to weeks to complete anatomic survey and echocardiogram. Subsequent follow up or other follow up as clinically determined by primary OB provider unless otherwise specified by M. Results forwarded to ordering provider so they can follow up with the patient as necessary. Procedure Note Yahaira Miller MD - 03/16/2025 NAME: DARREN ART : 2000 SEX: F Accession Number: [id number] ORDERING PHYSICIAN: ROSY ARREDONDO REFERRING PHYSICIAN: BRYANT PULLIAM Coding Procedures 49424: Ultrasound, uterus, real time with image documentation, and maternal evaluation plus detailed anatomic examination, transabdominalapproach;single or first gestation 73747: Ultrasound, uterus, real time with imagedocumentation, transvaginal 44010: 3D rendering with interpretation and reporting of computedtomography, magnetic resonance imaging, ultrasound, or other tomographic modality with image postprocessingunder concurrent supervision; not requiring image postprocessing on an independent workstation Indication Screening for Anatomic Survey, Screening for cervical length, Pre-existingType 1 diabetes in , Screening for congenital cardiac abnormality. History OB History 1 Current Cell free DNA low risk analysis Maternal Assessment Physical Exam Height 147 cm, 4 ft 10 in. Initial weight 56 kg, 123 lb.Initial BMI 25.71 kg/m?? Method Transabdominal and transvaginal ultrasound examination. View: Suboptimalview: limited by position. Medical Saturation Diver Saturation Diver declined [place] . Number of fetuses: 1 Dating LMP on: 10/30/2024 GA by LMP 19 w + 4 d MANDO by LMP: 08/06/2025 Previous Ultrasound on: 12/24/2024 Type of prior assessment: GA GA at prior assessment date 7 w + 3 d GA by previous U/S 19 w + 1 d MANDO by previous Ultrasound: 08/09/2025 Ultrasound examination on: 03/16/2025 GA by U/S based upon: AC, BPD, Femur, HC GA by U/S 19 w + 3 d MANDO by U/S: 08/07/2025 Assigned: based on the LMP, selected on 03/16/2025 Assigned GA (weeks days) 19 w + 4 d Assigned MANDO: 08/06/2025 General Evaluation Cardiac activity Present. FHR 132 bpm. Presentation: cephalic Placenta: Placental site: posterior, away from cervical os Umbilical cord: Cord vessels: 3 vessel cord. Insertion site: normalinsertion Amniotic fluid: Amount of AF: normal amount. MVP 2.9 cm Biometry Standard BPD 45.6 mm 19w 5d 60% Hadlock OFD 58.9 mm 20w 3d 80% Randolph HC 168.8 mm 19w 4d 40% Hadlock Cerebellum tr 19.5 mm 18w 6d 35% Hill Nuchal fold 3.3 mm AC 140.5 mm 19w 3d 40% Hadlock Femur 29.3 mm 19w 0d 24% Hadlock Humerus 29.4 mm 19w 4d 54% Randolph HC / AC 1.20 71% Hadlock EFW 284 g 29% Hadlock EFW (lb) 0 lb EFW (oz) 10 oz EFW by: Hadlock ([facility]-TS-FL) Extended Tibia 25.1 mm 18w 6d 33% Randolph Marker Maker 6.5 mm CM 3.4 mm 9% Nicolaides Head / Face / Neck Cephalic index 0.77 34% Nicolaides Nasal bone: not examined Extremities / Bony Struc FL / BPD 0.64 12% Hadlock FL / HC 0.17 8% Hadlock FL / AC 0.21 30% Hadlock Other Structures FHR 132 bpm Anatomy The following structures appear normal: Head/Neck: Cranium. Lateral ventricles. Choroid plexus. Midline falx.Cavum septi pellucidi. Cerebellum. Cisterna magna. Parenchyma. Vermis. Neck. Nuchal fold. Face: Lips. Nose. Heart/Thorax: Right lung. Left lung. Abdomen: Abdom. wall. Cord insertion. Stomach. Kidneys. Bladder. Smallbowel. Large bowel. Right renal artery. Left renal artery. Genitals. Spine: Cervical spine. Thoracic spine. Lumbar spine. Sacral spine. Extremities/Skeleton: Right upper arm. Right forearm. Right hand. Leftupper arm. Left forearm. Left hand. Right upper leg. Right lower leg. Right foot. Left upper leg. Left lower leg. Leftfoot. The following structures could not be adequately visualized: Heart / Thorax 4-chamber view. 3-mtbhjx-fulszxr view. Diaphragm. The following structures could not be examined: Face Profile. Nasal bone. Maxilla. Mandible. Orbits. Heart / Thorax RVOT view. LVOT view. 3-vessel view. Great vessels. Echocardiogram Situs situs solitus (normal) Cardiac position normal Cardiac axis normal Cardiac size normal (approx. 1/3 of thoracic area) Cardiac rhythm regular (normal) 4-chamber view suboptimal LVOT view not examined RVOT view not examined 3-vessel view not examined 8-jwivgd-mnecppl view suboptimal Aortic arch view not examined Ductal arch view not examined Bicaval view normal Interventricular septum not examined Venous-atrial connections normal AV connections not examined VA connections not examined Pulmonary veins normal Right atrium suboptimal Left atrium suboptimal Atrial septum suboptimal Foramen ovale suboptimal Right ventricle suboptimal Left ventricle suboptimal Ventricular septum suboptimal Cross-over gr. arteries not examined Main PA not examined Pulmonary arteries not examined Linear insertion of AV valves no Pericardial effusion no Maternal Structures Uterus Visualized Cervix Visualized Cervical length 3.29 cm Right Ovary Visualized Size 2.8 cm x 2.1 cm x 1.0 cm. Vol 3.0 cm?? Left Ovary Visualized Size 3.1 cm x 3.1 cm x 2.1 cm. Vol 10.5 cm?? Cul de Sac Visualized Impression Single live intrauterine consistent with 19w 4d with an MANDO of 08/06/2025. Normal growth. EFW measures at the 29%, AC measures at the 40%. Transvaginal cervical length measures 3.29 cm. Amniotic fluid MVP measures 2.9 cm. Recommendations The patient is scheduled in four to weeks to complete anatomic survey andfetal echocardiogram. Subsequent follow up or other follow up as clinically determined byprimary OB provider unless otherwise specified by [facility]. Results forwarded to ordering provider so they can follow up with thepatient as necessary. Authorizing ProviderResult TypeResult StatusRosy COOK ORDERABLESFinal Result * Bedside Glucose *Place/Obtain serum glucose if >500 per glucometer. (02/22/2025 1:59 PM EDT) Only the most recent of67 resultswithin the time period is included. ComponentValueRef RangeTest MethodAnalysis TimePerformed AtPathologist Signature Bedside Glucose (POC)9265 - 99 mg/dL02/22/2025 2:04 PM [facility] LABORATORYSpecimen (Source)Anatomical Location / LateralityCollection Method / VolumeCollection TimeReceived Timearterial/lhmcjaahe11/15/2025 1:59 PM EDT 02/22/2025 2:04 PM EDT Narrative Authorizing ProviderResult TypeResult StatusAnnamarie Dave MDPOINT OF CARE TEST ORDERABLESFinal ResultPerforming OrganizationAddressCity/State/ZIP CodePhone Number [facility] [address] [place] [address], [place] * (ABNORMAL) Protein, urine, 24 hour (02/19/2025 6:57 AM EDT)ComponentValueRef RangeTest MethodAnalysis TimePerformed AtPathologist SignatureURINE TOTAL QHTYWVG418(H)0 - 150 mg/24h02/19/2025 8:29 AM [facility] LABORATORYLAB TOT VOLUME - 24H URINE2,8513202/19/2025 8:29 AM [facility] LABORATORYSpecimen (Source)Anatomical Location / LateralityCollection Method / VolumeCollection TimeReceived TqerYacao88/12/2025 6:57 AM EDT 02/19/2025 7:44 AM EDT Narrative Authorizing ProviderResult TypeResult StatusLaura Deshpande DOURINE ORDERABLES Final ResultPerforming OrganizationAddressCity/State/ZIP CodePhone Number [facility] [address] [place] [address], * ECG 12 lead (02/18/2025 10:54 AM EDT)Specimen (Source)Anatomical Location / LateralityCollection Method / VolumeCollection TimeReceived Time02/18/2025 10:54 AM EDT Narrative [facility] - 02/18/2025 11:28 AM EDT Authorizing ProviderResult TypeResult StatusLaura Deshpande DOECG ORDERABLES Final ResultPerforming OrganizationAddressty/State/ZIP CodePhone Number [facility] * Lavender Top (02/18/2025 8:20 AM EDT)ComponentValueRef RangeTest Method Analysis TimePerformed AtPathologist SignatureExtra TubeAuto Resulted 02/18/2025 10:01 AM [facility] LABORATORYSpecimen (Source) Anatomical Location / LateralityCollection Method / VolumeCollection Time Received TimeBloodVenous blood / Ijjyqbc0302/18/2025 8:20 AM EDT02/18/2025 8:32 AM EDT Narrative Authorizing ProviderResult TypeResult StatusAnnamarie Dave MDLAB BLOOD ORDERABLES Final ResultPerforming OrganizationAddressCity/State/ZIP CodePhone Number [facility] [address] [place] [address], [place] [phone] * LDH (02/18/2025 8:20 AM EDT)ComponentValueRef RangeTest MethodAnalysis Time Performed AtPathologist GktrjlwsoGZL529877 - 235 U/L02/18/2025 9:04 AM EDT [facility] LABORATORYSpecimen (Source)Anatomical Location / LateralityCollection Method / VolumeCollection TimeReceived TimeBloodVenous blood / UnknownVenipuncture / Gqojglc3602/18/2025 8:20 AM EDT02/18/2025 8:31 AM EDT Narrative Authorizing ProviderResult TypeResult StatusLaura Deshpande DOLAB BLOOD ORDERABLESFinal ResultPerforming OrganizationAddressCity/State/ZIP CodePhone Number [facility] [address] [place] [address], [place] [phone] * Uric acid (02/18/2025 8:20 AM EDT)ComponentValueRef RangeTest MethodAnalysis TimePerformed AtPathologist SignatureURIC ACID3.12.6 - 7.2 mg/dL02/18/2025 9:04 AM [facility] LABORATORYSpecimen (Source)Anatomical Location / LateralityCollection Method / VolumeCollection TimeReceived Time BloodVenous blood / UnknownVenipuncture / Riibpcu4302/18/2025 8:20 AM EDT 02/18/2025 8:31 AM EDT Narrative Authorizing ProviderResult TypeResult StatusLaura Deshpande DOLAB BLOOD ORDERABLESFinal ResultPerforming OrganizationAddressCity/State/ZIP CodePhone Number [facility] [address] [place] [address], [place] [phone] * (ABNORMAL) Urinalysis (02/17/2025 7:25 PM EDT)ComponentValueRef RangeTest MethodAnalysis TimePerformed AtPathologist SignatureCOLORYellowYellow 02/17/2025 8:09 PM [facility] LABORATORYTURBIDITYHazy(A)Clear 02/17/2025 8:09 PM [facility] LABORATORYSPECIFIC GRAVITY1.025 1.003 - 1.7066602/17/2025 8:09 PM [facility] LABORATORYNITRITE IsbpbsixUmbiozku06/10/2025 8:09 PM [facility] PH,URINE6.05.0 - 8. 8:09 PM [facility] LEUKOCYTE ESTERASELarge(A)Fqlbhxxa19/10/2025 8:09 PM [facility] FVFQWTXAVEZQLYTYQAkgkwhyvBchzuaev53/10/2025 8:09 PM [facility] LABORATORYKETONES (URINE)60 mg/dL(A)Hthryjrn27/10/2025 8:09 PM EDT [facility] LABORATORYUROBILINOGEN<1.1 eu/dL<1.1 eu/dL02/17/2025 8:09 PM [facility] LABORATORYBILIRUBIN (URINE)Negative Yzvfuyjx48/10/2025 8:09 PM [facility] LABORATORYBLOOD/HGB LyetcmnxRaqkcupm98/10/2025 8:09 PM [facility] MUCOUSPresent(A)None02/17/2025 8:09 PM [facility] R.B.CELLS00 - 8:09 PM [facility] SQUAMOUS CGFSAFWUWT51(H)0 - 8:09 PM [facility] LABORATORYW.B.CELLS57(H)0 - 8:09 PM [facility] LABORATORYGLUCOSE (URINE)XfwcojrzOexokwbs44/10/2025 8:09 PM [facility] LABORATORYSpecimen (Source)Anatomical Location / LateralityCollection Method / VolumeCollection TimeReceived TimeUrineUrine specimen collection, clean catch / Umyqedt1202/17/2025 7:25 PM EDT02/17/2025 7:54 PM EDT Narrative Authorizing ProviderResult TypeResult StatusJessnatalee [facility] ORDERABLESFinal ResultPerforming OrganizationAddressCity/State/ZIP CodePhone Number [facility] [address] [place] [address], * Urine Culture Urine, Clean Catch Midstream (02/17/2025 7:25 PM EDT)Component ValueRef RangeTest MethodAnalysis TimePerformed AtPathologist SignatureCULTURE LZDUXUN79-82,000 ORGANISMS/mL NORMAL UROGENITAL FLORA02/18/2025 4:53 PM EDT [facility] LABORATORYSpecimen (Source)Anatomical Location / LateralityCollection Method / VolumeCollection TimeReceived TimeUrineUrine specimen collection, clean catch / Jcxfrde9202/17/2025 7:25 PM EDT02/17/2025 7:54 PM EDT Narrative [facility] - 02/18/2025 4:53 PM EDT Urine received without preservative - delays in transport may affect results. Interpret with caution and clinical correlation is recommended. Authorizing ProviderResult TypeResult StatusCriselda Zaidi MDMICROBIOLOGY - GENERAL ORDERABLESFinal ResultPerforming OrganizationAddressCity/State/ZIP CodePhone Number [facility] [address] [place] [address], * SST TOP (02/17/2025 7:17 PM EDT) Only the most recent of2 resultswithin the time period is included. ComponentValueRef RangeTest MethodAnalysis TimePerformed AtPathologist Signature Extra TubeAuto Jswkkftc74/10/2025 9:01 PM [facility] Specimen (Source)Anatomical Location / LateralityCollection Method / Volume Collection TimeReceived TimeBloodVenous blood / Dnvucgr2202/17/2025 7:17 PM EDT 02/17/2025 7:28 PM EDT Narrative Authorizing ProviderResult TypeResult StatusAnnamarie Dave NMLAB BLOOD ORDERABLES Final ResultPerforming OrganizationAddressCity/State/ZIP CodePhone Number [facility] [address] [place] [address], * (ABNORMAL) CBC auto differential (02/17/2025 7:17 PM EDT) Only the most recent of2 resultswithin the time period is included. ComponentValueRef RangeTest MethodAnalysis TimePerformed AtPathologist Signature WBC14.0(H)4 - 11 x10E9/L02/17/2025 7:37 PM [facility] LABORATORYRBC Count4.303.8 - 5.2 X10E12/L02/17/2025 7:37 PM [facility] EEGHVJAVBLEshasvdoyf16.811.7 - 15.5 g/dL02/17/2025 7:37 PM [facility] DBZYPXFSUEBdkvhvrhwu21.535 - 47 %02/17/2025 7:37 PM [facility] ACCWIVXVQCCJN4653 - 100 fL02/17/2025 7:37 PM [facility] WHBFKIBJLTPGJ48.727 - 34 pg02/17/2025 7:37 PM [facility] IJMPAXIMOBSTGQ33.032 - 36 g/dL02/17/2025 7:37 PM [facility] RDICYRIGHWLYZ59.411.5 - 15 %02/17/2025 7:37 PM [facility] LABORATORYPlatelet Fegqx260966 - 450 X10E9/L02/17/2025 7:37 PM [facility] LABORATORYMPV8.37 - 12 fL02/17/2025 7:37 PM [facility] LABORATORYNeutrophils %74.7%02/17/2025 7:37 PM [facility] LABORATORYLymphocytes %19.9%02/17/2025 7:37 PM [facility] LABORATORYMonocytes %4.6%02/17/2025 7:37 PM [facility] LABORATORYEosinophils %0.6%02/17/2025 7:37 PM [facility] LABORATORYBasophils %0.2%02/17/2025 7:37 PM [facility] LABORATORYNeutrophils Absolute (A)10.5(H)1.5 - 6.6 10*3/uL02/17/2025 7:37 PM [facility] LABORATORYLymphocytes Absolute2.81.0 - 3.5 10*3/uL02/17/2025 7:37 PM [facility] LABORATORYMonocytes Absolute0.60.0 - 0.9 10*3/uL02/17/2025 7:37 PM [facility] LABORATORYEosinophils Absolute0.10.0 - 0.4 10*3/uL02/17/2025 7:37 PM [facility] LABORATORYBasophils Absolute0.00.0 - 0.2 10*3/uL02/17/2025 7:37 PM [facility] LABORATORYDifferential TypeAUTOMATED YJRGHNKRVQEV41/10/2025 7:37 PM [facility] LABORATORYSpecimen (Source)Anatomical Location / LateralityCollection Method / VolumeCollection TimeReceived TimeBloodVenous blood / UnknownVenipuncture / Zfpqjaf2202/17/2025 7:17 PM EDT02/17/2025 7:27 PM EDT Narrative Authorizing ProviderResult TypeResult StatusCriselda Zaidi [facility] BLOOD ORDERABLESFinal ResultPerforming OrganizationAddressCity/State/ZIP CodePhone Number [facility] [address] [place] [address], * Acetone, (BetaHydroxybutyrate, Ketone) quantitative, serum (02/17/2025 7:16 PM EDT) Only the most recent of2 resultswithin the time period is included. ComponentValueRef RangeTest MethodAnalysis TimePerformed AtPathologist Signature BETAHYDROXYBUTYRATE0.160.02 - 0.27 mmol/L02/17/2025 8:05 PM [facility] LABORATORYSpecimen (Source)Anatomical Location / LateralityCollection Method / VolumeCollection TimeReceived TimeBloodVenous blood / Unknown Venipuncture / Qlojtlx8702/17/2025 7:16 PM EDT02/17/2025 7:27 PM EDT Narrative Authorizing ProviderResult TypeResult StatusCriselda Zaidi [facility]DC[facility] BLOOD ORDERABLESFinal ResultPerforming OrganizationAddressCity/State/ZIP CodePhone Number [facility] [address] [place] [address], [place] [phone] * (ABNORMAL) Comprehensive metabolic panel (02/17/2025 7:16 PM EDT)Component ValueRef RangeTest MethodAnalysis TimePerformed AtPathologist SignatureSODIUM 538624 - 146 mmol/L02/17/2025 8:05 PM [facility] POTASSIUM3.53.5 - 5.0 mmol/L02/17/2025 8:05 PM [facility] CHOKVGMSPCKSCCAAEN48033 - 109 mmol/L02/17/2025 8:05 PM [facility] LABORATORYCARBON EOVLLSE7180 - 32 mmol/L02/17/2025 8:05 PM [facility] LABORATORYANION GAP85 - 15 mmol/L02/17/2025 8:05 PM [facility] LABORATORYBLOOD UREA EPIKELPW704 - 23 mg/dL02/17/2025 8:05 PM [facility] LABORATORYCREATININE0.630.40 - 1.00 mg/dL 02/17/2025 8:05 PM [facility] LABORATORYComment:METHOD TRACEABLE TO IDKS DWGFOQCHBZUKOIB129(H)65 - 99 mg/dL02/17/2025 8:05 PM [facility] LABORATORYCALCIUM8.58.5 - 10.5 mg/dL02/17/2025 8:05 [facility] LABORATORYTOTAL PROTEIN7.16.0 - 8.0 g/dL 02/17/2025 8:05 [facility] LABORATORYALBUMIN3.83.2 - 5.3 g/dL02/17/2025 8:05 PM [facility] LABORATORYALKALINE SAQEXYTBNLG5426 - 130 U/L02/17/2025 8:05 PM [facility] NQAOYCMLILXFA68<=41 U/L02/17/2025 8:05 PM [facility] CESVDRGSLPOAY88<=31 U/L02/17/2025 8:05 PM [facility] LABORATORYBILIRUBIN,TOTAL0.2(L)0.3 - 1.2 mg/dL02/17/2025 8:05 PM [facility] LABORATORYEGFR Non-Race Dependent>90>=60 ml/min/1.73sq.m 02/17/2025 8:05 PM [facility] LABORATORYComment: Reported eGFR is based on the CKD-EPI 2020 equation that does not use a race coefficient. Specimen (Source)Anatomical Location / LateralityCollection Method / Volume Collection TimeReceived TimeBloodVenous blood / UnknownVenipuncture / Unknown 02/17/2025 7:16 PM EDT02/17/2025 7:27 PM EDT Narrative Authorizing ProviderResult TypeResult StatusJessnatalee PAIGE BLOOD ORDERABLESFinal ResultPerforming OrganizationAddressCity/State/ZIP CodePhone Number [facility] [address] [place] [address], [place] [phone] * (ABNORMAL) Blood gas, venous (01/08/2025 2:50 PM EDT)ComponentValueRef Range Test MethodAnalysis TimePerformed AtPathologist SignatureSample typeVENOUS 01/08/2025 2:53 PM [facility]pH, Venous7.3867.320 - 7.2592101/08/2025 2:53 PM [facility]ITALpCO2, Venous 40.335.0 - 50.0 mmHg01/08/2025 2:53 PM [facility] pO2, Wtdjot6581 - 50 mmHg01/08/2025 2:53 PM [facility]ITALBase, Deficit-1.0(L)0.0 - 2.0 mmol/L01/08/2025 2:53 PM [facility]PITALHCO3, Mnvyjf28.2(H)20.0 - 24.0 mmol/L01/08/2025 2:53 PM [facility]%O2 Saturation, Isbshz26.0%01/08/2025 2:53 PM [facility]PITALAllen's testN/A001/08/2025 2:53 PM EDTPMEMORIAL HEALTH SYSTEM SELBY GENERAL HOSPITALample siteN/A001/08/2025 2:53 PM EDT [facility]ENTERource Of OxygenRoom Air01/08/2025 2:53 PM EDTPMEMORIAL HEALTH SYSTEM SELBY GENERAL HOSPITALpecimen (Source)Anatomical Location / LateralityCollection Method / VolumeCollection TimeReceived TimevenousVenous blood / Iclhzxs9501/08/2025 2:50 PM EDT01/08/2025 2:53 PM EDT Narrative Authorizing ProviderResult TypeResult StatusPatricwilliams Caal MDLAB BLOOD ORDERABLESFinal ResultPerforming OrganizationAddressCity/State/ZIP CodePhone Number [address] [place] [address], [place] * Magnesium (01/08/2025 2:14 PM EDT)ComponentValueRef RangeTest MethodAnalysis TimePerformed AtPathologist SignatureMAGNESIUM1.91.8 - 2.6 mg/dL01/08/2025 3:21 PM EDTPMEMORIAL HEALTH SYSTEM SELBY GENERAL HOSPITALpecimen (Source)Anatomical Location / LateralityCollection Method / VolumeCollection TimeReceived Time BloodVenous blood / UnknownVenipuncture / Lkmiqoq9001/08/2025 2:14 PM EDT 01/08/2025 2:17 PM EDT Narrative Authorizing ProviderResult TypeResult StatusBello Caal [facility]DCEN[facility] BLOOD ORDERABLESFinal ResultPerforming OrganizationAddressCity/State/ZIP CodePhone Number [address] [place] [address], [place] * (ABNORMAL) Basic Metabolic Panel (01/08/2025 2:14 PM EDT) Only the most recent of2 resultswithin the time period is included. ComponentValueRef RangeTest MethodAnalysis TimePerformed AtPathologist Signature VBVMKM868767 - 146 mmol/L01/08/2025 2:33 PM EDTPPREMIER HEALTHPOTASSIUM3.53.5 - 5.0 mmol/L01/08/2025 2:33 PM EDTPPREMIER HEALTHCHLORIDE10298 - 109 mmol/L01/08/2025 2:33 PM EDTPPREMIER HEALTHCARBON EBVSHVR2325 - 32 mmol/L01/08/2025 2:33 PM EDT [facility] HOSPITALANION GAP95 - 15 mmol/L01/08/2025 2:33 PM EDT [facility] HOSPITALBLOOD UREA TZTDSYRQ326 - 23 mg/dL01/08/2025 2:33 PM [facility]PITALCREATININE0.880.40 - 1.00 mg/dL 01/08/2025 2:33 PM [facility]PITALComment:METHOD TRACEABLE TO IDMS LQOLPBDLFAZDJZC474(H)65 - 99 mg/dL01/08/2025 2:33 PM EDT [facility] HOSPITALCALCIUM9.28.5 - 10.5 mg/dL01/08/2025 2:33 PM [facility] HOSPITALEGFR Non-Race Dependent>90>=60 ml/min/1.73sq.m001/08/2025 2:33 PM [facility]PITALComment: eGFR not reported due to non-numeric value for Creatinine. Reported eGFR is based on the CKD-EPI 2020 equation that does not use a race coefficient. Specimen (Source)Anatomical Location / LateralityCollection Method / Volume Collection TimeReceived TimeBloodVenous blood / UnknownVenipuncture / Unknown 01/08/2025 2:14 PM EDT01/08/2025 2:17 PM EDT Narrative Authorizing ProviderResult TypeResult StatusPatricwilliams PAIGE BLOOD ORDERABLESFinal ResultPerforming OrganizationAddressCity/State/ZIP CodePhone Number [address] [address], [place] * Light Blue Top (01/08/2025 2:13 PM EDT)ComponentValueRef RangeTest Method Analysis TimePerformed AtPathologist SignatureExtra TubeAuto Resulted 01/08/2025 4:01 PM [facility]pecimen (Source) Anatomical Location / LateralityCollection Method / VolumeCollection Time Received TimeBloodVenous blood / Vwyoihy4401/08/2025 2:13 PM EDT01/08/2025 2:17 PM EDT Narrative Authorizing ProviderResult TypeResult StatusPatricwilliams PAIGE BLOOD ORDERABLESFinal ResultPerforming OrganizationAddressCity/State/ZIP CodePhone Number [address] [address], [place] * Ultrasound limited 1 or more fetus (01/07/2025 9:22 AM EDT) Anatomical RegionLateralityModalityOB-GYNUltrasound Narrative Authorizing ProviderResult TypeResult StatusNot In System Ref ProvIMG US ORDERABLESFinal Result * HIV 1&2 AB/AG Screen (P24 AG) (01/04/2025)ComponentValueRef RangeTest Method Analysis TimePerformed AtPathologist SignatureHIV 1&2 AB/AGnon reactive MANUALLY TRANSCRIBED RESULTSSpecimen (Source)Anatomical Location / Laterality Collection Method / VolumeCollection TimeReceived TimeBloodVenous blood / Unknown Narrative Authorizing ProviderResult TypeResult StatusNot In System Ref ProvLAB BLOOD ORDERABLESFinal ResultPerforming OrganizationAddressCity/State/ZIP CodePhone Number MANUALLY TRANSCRIBED RESULTS * Drug Screen, Urine (01/04/2025)ComponentValueRef RangeTest MethodAnalysis Time Performed AtPathologist SignatureMethadonenegativeMANUALLY TRANSCRIBED RESULTS OpiatesnegativeMANUALLY TRANSCRIBED RESULTSAmphetamine/Methamphetaminenegative MANUALLY TRANSCRIBED RESULTSCocaine MetabolitenegativeMANUALLY TRANSCRIBED RESULTSPhencyclidinenegativeMANUALLY TRANSCRIBED RESULTSThc Marijuana, Urine negativeMANUALLY TRANSCRIBED RESULTSOxycodonenegativeMANUALLY TRANSCRIBED RESULTSBarbituratesnegativeMANUALLY TRANSCRIBED RESULTSBenzodiazepinesnegative MANUALLY TRANSCRIBED RESULTSSpecimen (Source)Anatomical Location / Laterality Collection Method / VolumeCollection TimeReceived TimeUrine Narrative Authorizing ProviderResult TypeResult StatusNot In System Ref ProvURINE ORDERABLESFinal ResultPerforming OrganizationAddressCity/State/ZIP CodePhone Number MANUALLY TRANSCRIBED RESULTS * CBC without diff (01/04/2025)ComponentValueRef RangeTest MethodAnalysis Time Performed AtPathologist SkrgfjcrpNrafxdmjxh13.36MANUALLY TRANSCRIBED RESULTS Vvlirjmtwl63.7MANUALLY TRANSCRIBED RESULTSRbc Mcv (Fl) By Automated Count87.3 MANUALLY TRANSCRIBED OXCGZKYRildztslm981NTAHEGYZ TRANSCRIBED RESULTSSpecimen (Source)Anatomical Location / LateralityCollection Method / VolumeCollection TimeReceived TimeBloodVenous blood / Unknown Narrative Authorizing ProviderResult TypeResult StatusNot In System Ref ProvLAB BLOOD ORDERABLESFinal ResultPerforming OrganizationAddressCity/State/ZIP CodePhone Number MANUALLY TRANSCRIBED RESULTS * Type and screen (01/04/2025)ComponentValueRef RangeTest MethodAnalysis Time Performed AtPathologist SignatureAbo/Rh(D)O NegativeMANUALLY TRANSCRIBED RESULTSAntibody ScreennegativeMANUALLY TRANSCRIBED RESULTSSpecimen (Source) Anatomical Location / LateralityCollection Method / VolumeCollection Time Received TimeBloodVenous blood / Unknown Narrative Authorizing ProviderResult TypeResult StatusNot In System Ref ProvBLOOD BANK TEST ORDERABLESFinal ResultPerforming OrganizationAddressty/State/ZIP Code Phone Number MANUALLY TRANSCRIBED RESULTS * (ABNORMAL) Hemoglobin A1c (01/04/2025)ComponentValueRef RangeTest Method Analysis TimePerformed AtPathologist SignatureHemoglobin A1C7.1(A)4.0 - 6.0 % MANUALLY TRANSCRIBED RESULTSSpecimen (Source)Anatomical Location / Laterality Collection Method / VolumeCollection TimeReceived TimeBloodVenous blood / Unknown Narrative Authorizing ProviderResult TypeResult StatusCorey R Kiley DOLAB BLOOD ORDERABLES Final ResultPerforming OrganizationAddressty/State/ZIP CodePhone Number MANUALLY TRANSCRIBED RESULTS * Pap Smear (04/02/2022 10:35 AM EDT)Specimen (Source)Anatomical Location / LateralityCollection Method / VolumeCollection TimeReceived Time04/02/2022 10:35 AM EDT1 10:37 AM EDT Narrative COPATH - 04/12/2022 12:17 PM EDT [facility] ? [facility] ? [address] [place] [address] ? [place] [address] ? Gynecologic Cytology Consultation ? Patient Name:DALIA BANKS:2000 (Age: 22)Gender:FTaken:04/02/2022eported:04/12/2022hysician(s):PHILLIP Pink ([phone])Copy To: Rec. #:[id number]: #[id number] Final Cytologic Interpretation ThinPrep Pap Test (Cervical): Satisfactory for evaluation. A transformation zone component is present. NEGATIVE FOR INTRAEPITHELIAL LESION OR MALIGNANCY. ?? jja/04/12/2022 Interpretation performed at [facility], [address] [place] [address], License number: [id number]. Electronically Signed Out By ?JORGE Olson(ASCP) Date of Last Menstrual Period: ? 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 Thin Prep Pap (CONCESSION MANAGER) Fee Code(s): ?? G0145 Authorizing ProviderResult TypeResult StatusCayla Olivas CLINICAL AUDITOR-COLLECTIONS OFFICER PATHOLOGY/CYTOLOGY ORDERABLESFinal ResultPerforming OrganizationAddress City/State/ZIP CodePhone Number COPATH * Chlamydia/GC by PCR Omaira Swab (03/20/2022 6:33 PM EDT)ComponentValueRef Range Test MethodAnalysis TimePerformed AtPathologist SignatureSpecimen sourceCERVIX 03/20/2022 9:54 PM [facility]:Corrected on 03/20 AT 2154: Previously reported as SWABChlamydia DNA PCRNegativeNegative^Negative 03/21/2022 12:54 PM [facility]Comment: ? Chlamydia trachomatis not detected by nucleic acid amplification. This does not exclude the possibility of infection because results are dependent on adequate specimen collection. ? Gonorrhea DNA PCRNegativeNegative^Qsokipbr10/12/2022 12:54 PM [facility]Comment: ? Neisseria gonorrhoeae not detected by nucleic acid amplification. This does not exclude the possibility of infection because results are dependent on adequate specimen collection. ? Specimen (Source)Anatomical Location / LateralityCollection Method / Volume Collection TimeReceived HsyaXCLA25/11/2022 6:33 PM EDT1 9:50 PM EDT Narrative Authorizing ProviderResult TypeResult StatusComelissa Seaman MDMICROBIOLOGY - GENERAL ORDERABLESEdited Result - FinalPerforming OrganizationAddress City/State/ZIP CodePhone Number [facility] [address], [address] [place] [address] from Last 3 Months or Most Recently Relevant to Health Maintenance Insurance Advance Directives * Full Code (Latest Code Status on File) Date ActivatedDate InactivatedComments02/17/2025 6:35 PM02/22/2025 6:48 PM * Full Code Date ActivatedDate XaekhqmagicDanfaavf38/27/2021 4:55 PM06/08/2021 4:33 PM * Full Code Date ActivatedDate InactivatedComments01/07/2018 6:44 AM01/07/2018 2:17 PM * Full Code Date ActivatedDate InactivatedComments10/23/2016 11:27 AM10/24/2016 12:42 PM * Full Code Date ActivatedDate InactivatedComments08/01/2016 12:52 AM08/01/2016 4:47 PM Care Teams Team MemberRelationshipSpecialtyStart DateEnd Date Dru Rodriguez DO [address] [place] [id number] [facility] - General01/01/17
--- OUTSIDE RECORDS SUMMARY | 2025-04-06 07:43 | XMS_ITS | Encounter Summary ---
Author Organization [facility] Address [address] [place] [address] Care Team Providers Care Retention Specialist Name Role Phone Dru Rodriguez DO Primary Care Provider [phone] Dru Rodriguez DO Unavailable [phone] Encounter Details DateTypeDepartmentCare Team (Latest Contact Info)Kvjxvmbspil73/16/2025Telephone [facility] [address] [place] [address] Lesa Boss LPN [address] [place] [address] Social History Tobacco UseTypesPacks/DayYears UsedDateSmoking Tobacco: NeverSmokeless [...] relatives?Twice a week03/11/2023How often do you attend taoism or nondenominational services?1 to 4 times per year03/11/2023o you belong to any clubs or organizations such as taoism groups, unions, fraternal or athletic laura ups, or school groups?No03/11/2023How often do you attend meetings of the clubs or organizations you belong to?Never03/11/2023re you , , , , never , or living with a partner?Wmiyaou3103/11/2023 AUDIT-CAnswerDate RecordedQ1: How often do you have a drink containing alcohol? Monthly or less03/11/2023Q2: How many drinks containing alcohol do you have on a typical day when you are drinking?3 or Q3: How often do you have six or more drinks on one occasion?Less than qbjazvl2703/11/2023Overall Financial Resource Strain (CARDIA)AnswerDate RecordedHow hard is it for you to pay for the very basics like food, housing, medical care, and heating?Somewhat hard 03/11/2023HQ-2AnswerDate RecordedPatient Health Questionnaire-2 Score0 03/25/2025Fin[facility] [place] of Occupational Health - Occupational Stress QuestionnaireAnswerDate [...] slept in ashelter (including now)?No03/11/2023Estimated Date of KdekcbbrDnasbxszZck07/27/2026ased on last menstrual period of 10/30/2024Sex and Gender InformationValueDate RecordedSex Assigned at QpdveBmoknp61/01/2023 1:10 PM EDTLegal EoiAxznra59/15/2023 6:51 PM EDTGender WrhzampvXqrocd95/01/2023 1:10 PM EDTSexual MrlaeytkxfqSosfssbr49/01/2023 1:10 PM EDTdocumented as of this encounter Functional Status * Over the past 2 weeks, how often have you been bothered by any of the following problems?QuestionAnswerDate of AssessmentAuthorLittle interest or pleasure in doing thingsNot at all03/25/2025 8:57 AM Lesa Emanuel LPNFeeling down, depressed, or hopelessNot at all03/25/2025 8:57 AM JETT Lesa Boss LPNPatient Health Questionnaire-2 Yurtt798 8:57 AM Lesa Emanuel LPN documented as of this encounter Miscellaneous Notes * Telephone Encounter - Marlee Enriquez MA - 03/25/2025 11:00 AM EDT The results have been enter in for the days that were given. * Telephone Encounter - Lesa Boss LPN - 03/25/2025 9:18 AM EDT Pt has A1c and Microalb/creat scanned into media (12/16/24). -Can you please add her A1c and Microalb to her chart? A1c: 7.8% (12/15/24) Microalb 10.2 mg/g (10/27/24) documented in this encounter Plan of Treatment DateTypeDepartmentCare Team (Latest Contact Info)Ywczhwlofir93/28/2025 11:20 AM EDTRoutine [facility] [address] [place] [address] Katharine Cummins PA [address] [place] [address] documented as of this encounter Goals GoalPatient Goal TypeAssociated ProblemsRecent ProgressPatient-Stated?Author Reminders Care PlanOB RemindersNoOpen Scheduling, Backgrounddocumented as of this encounter Procedures Procedure NamePriorityDate/TimeAssociated DiagnosisCommentsHEMOGLOBIN I5TUnhmqmf 12/15/2024 MICROALBUMIN / CREATININE URINE OKLFJVklarzh70/20/2025 documented in this encounter Results * (ABNORMAL) Hemoglobin A1c (12/15/2024)ComponentValueRef RangeTest Method Analysis TimePerformed AtPathologist SignatureHEMOGLOBIN A1C7.8Specimen (Source)Anatomical Location / LateralityCollection Method / VolumeCollection TimeReceived TimeBloodVenous blood specimen / Kvhmjva9512/15/2024 Narrative Authorizing ProviderResult TypeResult StatusFirelands Physician GroupLAB BLOOD ORDERABLESFinal Result * Microalbumin / creatinine urine ratio (10/27/2024)ComponentValueRef RangeTest MethodAnalysis TimePerformed AtPathologist SignatureMICROALBUMIN, URINE10.2 Specimen (Source)Anatomical Location / LateralityCollection Method / Volume Collection TimeReceived TimeUrineUrine specimen obtained by clean catch procedure / Znwyzak2310/27/2024 Narrative Authorizing ProviderResult TypeResult StatusFirelands Physician GroupLAB URINE ORDERABLESFinal Result documented in this encounter Visit Diagnoses Not on filedocumented in this encounter Additional Health Concerns Active ProblemsNoted DateDiagnosed DateOB Nglrgijbs81/24/2025 documented as of this encounter Care Teams Team MemberRelationshipSpecialtyStart DateEnd Date Dru Rodriguez, DO [address] [place] [address] PCP - GeneralFamily Medicine10/22/22 Dru Rodriguez DO [address] [place] [address] PCP - Medical [place] Wzkiahpclv00/1/2312documented as of this encounter
--- OUTSIDE RECORDS SUMMARY | 2025-04-06 07:43 | XMS_ITS | Encounter Summary ---
Author Organization [facility] Address [address] [place] [address] Care Team Providers Care Travel Coordinator Name Role Phone Dru Rodriguez DO Primary Care Provider [phone] Dru Rodriguez DO Unavailable [phone] Encounter Details DateTypeDepartmentCare Team (Latest Contact Info)Ctbugqhgtni41/14/2025amboo flowsheet LALITA [facility] [address] [place] [phone] Kotlon Cao DO [address] [place] [id number] Social History Tobacco UseTypesPacks/DayYears UsedDateSmoking Tobacco: NeverSmokeless [...] relatives?Twice a week03/11/2023How often do you attend yarsani or cheondoism services?1 to 4 times per year03/11/2023o you belong to any clubs or organizations such as yarsani groups, unions, fraternal or athletic laura ups, or school groups?No03/11/2023How often do you attend meetings of the clubs or organizations you belong to?Never03/11/2023re you , , , , never , or living with a partner?Deegpwr6603/11/2023 AUDIT-CAnswerDate RecordedQ1: How often do you have a drink containing alcohol? Monthly or less03/11/2023Q2: How many drinks containing alcohol do you have on a typical day when you are drinking?3 or Q3: How often do you have six or more drinks on one occasion?Less than uynsrkd5403/11/2023Overall Financial Resource Strain (CARDIA)AnswerDate RecordedHow hard is it for you to pay for the very basics like food, housing, medical care, and heating?Somewhat hard 03/11/2023HQ-2AnswerDate RecordedPatient Health Questionnaire-2 Score0 09/17/2024Fin[facility] [place] of Occupational Health - Occupational Stress QuestionnaireAnswerDate [...] slept in ashelter (including now)?No03/11/2023Estimated Date of VsgberwwLhueqalhBeu82/27/2026ased on last menstrual period of 10/30/2024Sex and Gender InformationValueDate RecordedSex Assigned at GtdmqTtkmel71/01/2023 1:10 PM EDTLegal VfaUjfznh48/15/2023 6:51 PM EDTGender ZjmcdttbQwtycy22/01/2023 1:10 PM EDTSexual AxqrsfdvapgUpzevfmh49/01/2023 1:10 PM EDTdocumented as of this encounter Plan of Treatment DateTypeDepartmentCare Team (Latest Contact Info)Gaqacrpkiub43/28/2025 11:20 AM EDTRoutine [facility] [address] [place] [address] Katharine Cummins PA [address] [place], [place] [phone] documented as of this encounter Goals GoalPatient Goal TypeAssociated ProblemsRecent ProgressPatient-Stated?Author Reminders Care PlanOB RemindersNoOpen Scheduling, Backgrounddocumented as of this encounter Visit Diagnoses Not on filedocumented in this encounter Additional Health Concerns Active ProblemsNoted DateDiagnosed DateOB Srnujfenz94/24/2025 documented as of this encounter Care Teams Team MemberRelationshipSpecialtyStart DateEnd Date Dru Rodriguez DO [address] [place] [address] [facility] - [facility]/22 Dru Rodriguez DO [address] [facility] [address] [place] [address] PCP - Medical [facility]03/10/2312documented as of this encounter
--- OUTSIDE RECORDS SUMMARY | 2025-04-06 07:43 | XMS_ITS | Encounter Summary ---
Author Organization [facility] Address [address] [place] [address] Care Team Providers Care Cream Tester Name Role Phone Dru Rodriguez DO Primary Care Provider [phone] Dru Rodriguez DO Unavailable Encounter Details DateTypeDepartmentCare Team (Latest Contact Info)Dxsaezzprzw53/14/2025bstract [facility] [address] [phone] Kolton Cao DO [address] [facility] [address] [place] [id number] Social History Tobacco UseTypesPacks/DayYears UsedDateSmoking Tobacco: NeverSmokeless [...] relatives?Twice a week03/11/2023How often do you attend advent or nondenominational services?1 to 4 times per year03/11/2023o you belong to any clubs or organizations such as advent groups, unions, fraternal or athletic laura ups, or school groups?No03/11/2023How often do you attend meetings of the clubs or organizations you belong to?Never03/11/2023re you , , , , never , or living with a partner?Knuvusf9203/11/2023 AUDIT-CAnswerDate RecordedQ1: How often do you have a drink containing alcohol? Monthly or less03/11/2023Q2: How many drinks containing alcohol do you have on a typical day when you are drinking?3 or Q3: How often do you have six or more drinks on one occasion?Less than eirrlzv8703/11/2023Overall Financial Resource Strain (CARDIA)AnswerDate RecordedHow hard is it for you to pay for the very basics like food, housing, medical care, and heating?Somewhat hard 03/11/2023HQ-2AnswerDate RecordedPatient Health Questionnaire-2 Score0 03/25/2025Fin[facility] [place] of Occupational Health - Occupational Stress QuestionnaireAnswerDate [...] slept in ashelter (including now)?No03/11/2023Estimated Date of NgnjweccOffbcxbxJfk60/27/2026ased on last menstrual period of 10/30/2024Sex and Gender InformationValueDate RecordedSex Assigned at DstviEcapla62/01/2023 1:10 PM EDTLegal JuySsuaac07/15/2023 6:51 PM EDTGender DexzsaunQeflji13/01/2023 1:10 PM EDTSexual ObdddhuyxinOibenkpx77/01/2023 1:10 PM EDTdocumented as of this encounter Functional Status * Over the past 2 weeks, how often have you been bothered by any of the following problems?QuestionAnswerDate of AssessmentAuthorLittle interest or pleasure in doing thingsNot at all03/25/2025 8:57 AM Lesa Emanuel LPNFeeling down, depressed, or hopelessNot at all03/25/2025 8:57 AM Lesa Trevino LPNPatient Health Questionnaire-2 Egyyu625 8:57 AM Lesa Emanuel LPN documented as of this encounter Plan of Treatment DateTypeDepartmentCare Team (Latest Contact Info)Jrenexourha97/28/2025 11:20 AM EDTRoutine [facility] [address] [place] [phone] Katharine Cummins PA [address] [facility] [address] [place] [address] documented as of this encounter Goals GoalPatient Goal TypeAssociated ProblemsRecent ProgressPatient-Stated?Author Reminders Care PlanOB RemindersNoOpen Scheduling, Backgrounddocumented as of this encounter Visit Diagnoses Not on filedocumented in this encounter Additional Health Concerns Active ProblemsNoted DateDiagnosed DateOB Zjbmcsxuo57/24/2025 documented as of this encounter Care Teams Team MemberRelationshipSpecialtyStart DateEnd Date Dru Rodriguez DO [address] [address] PCP - GeneralFamily Medicine10/22/22 Dru Rodriguez DO [address] [address] PCP - Medical [place] Qimrqbpxzy54/1/2312documented as of this encounter
--- OUTSIDE RECORDS SUMMARY | 2025-04-06 07:44 | XMS_ITS | Encounter Summary ---
Author Organization [facility] Address [address] [place] [address] Care Team Providers Care Manager Pulmonary Name Role Phone Dur Rodriguez DO Primary Care Provider [phone] Dru Rodriguez DO Unavailable [phone] Encounter Details DateTypeDepartmentCare Team (Latest Contact Info)Gtrobohotnm02/16/2025Orders Only [facility] [address] [place] [phone] Dru Rodriguez, DO [address] [place] [address] Social History Tobacco UseTypesPacks/DayYears UsedDateSmoking Tobacco: NeverSmokeless [...] relatives?Twice a week03/11/2023How often do you attend christian or gnosticist services?1 to 4 times per year03/11/2023o you belong to any clubs or organizations such as christian groups, unions, fraternal or athletic laura ups, or school groups?No03/11/2023How often do you attend meetings of the clubs or organizations you belong to?Never03/11/2023re you , , , , never , or living with a partner?Emgqucb1603/11/2023 AUDIT-CAnswerDate RecordedQ1: How often do you have a drink containing alcohol? Monthly or less03/11/2023Q2: How many drinks containing alcohol do you have on a typical day when you are drinking?3 or Q3: How often do you have six or more drinks on one occasion?Less than lujvsza2103/11/2023Overall Financial Resource Strain (CARDIA)AnswerDate RecordedHow hard is it for you to pay for the very basics like food, housing, medical care, and heating?Somewhat hard 03/11/2023HQ-2AnswerDate RecordedPatient Health Questionnaire-2 Score0 03/25/2025Finhigh[facility] [place] of Occupational Health - Occupational Stress QuestionnaireAnswerDate [...] slept in ashelter (including now)?No03/11/2023Estimated Date of BdplkuovJhgbjyocUmf24/27/2026ased on last menstrual period of 10/30/2024Sex and Gender InformationValueDate RecordedSex Assigned at ForvqQxzozr21/01/2023 1:10 PM EDTLegal ZvrLqntje50/15/2023 6:51 PM EDTGender RqnatynsXvdirl71/01/2023 1:10 PM EDTSexual BjyugkdmtceNbxnuqja17/01/2023 1:10 PM EDTdocumented as of this encounter Functional Status * Over the past 2 weeks, how often have you been bothered by any of the following problems?QuestionAnswerDate of AssessmentAuthorLittle interest or pleasure in doing thingsNot at all03/25/2025 8:57 AM Lesa Emanuel LPNFeeling down, depressed, or hopelessNot at all03/25/2025 8:57 AM Lesa Trevino LPNPatient Health Questionnaire-2 Rrald969 8:57 AM Lesa Emanuel LPN documented as of this encounter Plan of Treatment DateTypeDepartmentCare Team (Latest Contact Info)Fbegmlffiqb86/28/2025 11:20 AM EDTRoutine NOMS [place] [address] Katharine Cummins PA [address] [place] [address] documented as of this encounter Goals GoalPatient Goal TypeAssociated ProblemsRecent ProgressPatient-Stated?Author Reminders Care PlanOB RemindersNoOpen Scheduling, Backgrounddocumented as of this encounter Procedures Procedure NamePriorityDate/TimeAssociated DiagnosisCommentsHEMOGLOBIN A3PNkzsbkh 12/15/2024 10:24 AM EDTdocumented in this encounter Results * (ABNORMAL) Hemoglobin A1c (12/15/2024 10:24 AM EDT)Specimen (Source)Anatomical Location / LateralityCollection Method / VolumeCollection TimeReceived Time BloodVenous blood specimen / Unknown Narrative Authorizing ProviderResult TypeResult StatusMattheagnes Rodriguez DOLAB BLOOD ORDERABLESFinal Result documented in this encounter Visit Diagnoses Not on filedocumented in this encounter Additional Health Concerns Active ProblemsNoted DateDiagnosed DateOB Rheogcdgx16/24/2025 documented as of this encounter Care Teams Team MemberRelationshipSpecialtyStart DateEnd Date Dru Rodriguez DO [address] [facility] [address] [place] [address] PCP - GeneralFamily Medicine10/22/22 Dru Rodriguez DO [address] [place] [address] PCP - Medical [place] Lmdnvwiqhd46/1/2312documented as of this encounter
--- OUTSIDE RECORDS SUMMARY | 2025-04-06 07:44 | XMS_ITS | Encounter Summary ---
Author Organization [facility] Address [address] [place] [address] Care Team Providers Care Time Buyer Name Role Phone Dru Rodriguez DO Primary Care Provider [phone] Dru Rodriguez DO Unavailable [phone] Encounter Details DateTypeDepartmentCare Team (Latest Contact Info)Ttjhrgducci56/21/2025[facility]ders Only [facility] [address] [place] [address] Kristopher Calvo W, OD [address] [place] [address] Social History Tobacco UseTypesPacks/DayYears UsedDateSmoking Tobacco: NeverSmokeless [...] relatives?Twice a week03/11/2023How often do you attend amish or judaism services?1 to 4 times per year03/11/2023o you belong to any clubs or organizations such as amish groups, unions, fraternal or athletic laura ups, or school groups?No03/11/2023How often do you attend meetings of the clubs or organizations you belong to?Never03/11/2023re you , , , , never , or living with a partner?Jinhsfp1803/11/2023 AUDIT-CAnswerDate RecordedQ1: How often do you have a drink containing alcohol? Monthly or less03/11/2023Q2: How many drinks containing alcohol do you have on a typical day when you are drinking?3 or Q3: How often do you have six or more drinks on one occasion?Less than euubipk5303/11/2023Overall Financial Resource Strain (CARDIA)AnswerDate RecordedHow hard is it for you to pay for the very basics like food, housing, medical care, and heating?Somewhat hard 03/11/2023HQ-2AnswerDate RecordedPatient Health Questionnaire-2 Score0 03/25/2025[facility] [place] [facility] - Occupational Stress QuestionnaireAnswerDate [...] slept in ashelter (including now)?No03/11/2023Estimated Date of LtxhfcxfGfygxwbyJqb24/27/2026ased on last menstrual period of 10/30/2024Sex and Gender InformationValueDate RecordedSex Assigned at ChdgvWqkgtd41/01/2023 1:10 PM EDTLegal OtwGsbysx42/15/2023 6:51 PM EDTGender GiuoxyrpKvjfwg69/01/2023 1:10 PM EDTSexual JosfhyyzhnmGmnbewov35/01/2023 1:10 PM EDTdocumented as of this encounter Plan of Treatment DateTypeDepartmentCare Team (Latest Contact Info)Fkqngqpdmig80/28/2025 11:20 AM EDTRoutine [facility] PORTILLO [address] [place] [address] Katharine Cummins PA [address] [place] [address] documented as of this encounter Goals GoalPatient Goal TypeAssociated ProblemsRecent ProgressPatient-Stated?Author Reminders Care PlanOB RemindersNoOpen Scheduling, Backgrounddocumented as of this encounter Procedures Procedure NamePriorityDate/TimeAssociated DiagnosisCommentsDIABETIC RETINOPATHY SCREENING - OU - BOTH AEEZSpzjkps81/21/2025 12:15 PM EDTdocumented in this encounter Results * (ABNORMAL) Diabetic Retinopathy Screening - OU - Both Eyes (03/30/2025 12:15 PM EDT)Anatomical RegionLateralityModalityHeadOther Narrative Authorizing ProviderResult TypeResult StatusThomas W Umesh ODOPHTH PHOTOGRAPHY Final Result documented in this encounter Visit Diagnoses Not on filedocumented in this encounter Additional Health Concerns Active ProblemsNoted DateDiagnosed DateOB Dkddammzu74/24/2025 documented as of this encounter Care Teams Team MemberRelationshipSpecialtyStart DateEnd Date Dru Rodriguez, DO [address] [place] [address] PCP - GeneralFamily Medicine10/22/22 Dru Rodriguez, DO [address] [place] [address] PCP - Medical [place] Otpjqrnixj85/1/2312documented as of this encounter
--- OUTSIDE RECORDS SUMMARY | 2025-04-06 07:44 | XMS_ITS | Clinical Summary ---
Author Organization [facility] Address [address] [place] [address] Care Team Providers Care Culinary Director Name Role Phone Dru Rodriguez DO Primary Care Provider [phone] Dru Rodriguez DO Unavailable [phone] Allergies Active AllergyReactionsCriticalityNoted DateCommentsAmoxicillinAnaphylaxisHigh 05/23/2016 Mouth irritation Medications MedicationSigDispense QuantityRefillsLast FilledStart DateEnd DateStatus Continuous Blood Gluc Transmit (Dexcom G6 transmitter) misc Indications:Type 1 diabetes mellitus without complication (HCC)Inject 1 each under the skin every 3 (three) months. Use as instructed 1 each 3Active insulin glargine (Lantus SoloStar) 100 UNIT/ML pen Indications:Type 1 diabetes mellitus without complication (HCC)inject 22 units subcutaneously once daily 3 mL 4Active Insulin Disposable Pump (Omnipod 5 UbkG4K9 Pods Gen 5) misc Indications:Type 1 diabetes mellitus without complication (HCC)Inject 1 each under the skin every 3 (three) days CHANGE POD EVERY 3 DAYS DIRECTED 30 each 5Active HumaLOG 100 UNIT/ML solution Indications:Type 1 diabetes mellitus without complication (HCC)USE PER INSULIN PUMP INSTRUCTION MAX OF 80 UNITS DAILY 30 mL 5Active Vit w/Tv-Tdurarocv-KY (PNV PO) Take by mouthActive Acetone, Urine, Test (Ketone Test) strip check urine FOR ketones with blood glucose greater THAN 250 mg/dLActive aspirin 81 MG EC tablet Take 81 mg by mouth in the morning.5Active cholecalciferol (Vitamin D-3) 1.25 MG (11134 UT) capsule every week5Active Continuous Glucose Sensor (Dexcom G7 Sensor) misc USE WITH OMNIPOD 5 TO MANAGE BLOOD SUGARS AND CHANGE EVERY 10 DAYS01/21/2025 Active doxylamine (Unisom) 25 MG tablet Take 25 mg by mouth 4 (four) times a day as lmugje8301/08/2025tive Baqsimi One Pack 3 MG/DOSE nasal powder Use to treat unresponsive acklwpbbavnu93/11/2025Active OneTouch Ultra Test test strip USE 1 STRIP TO CHECK GLUCOSE 4 TIMES DAILY5Active ondansetron ODT (Zofran-ODT) 4 MG disintegrating tablet DISSOLVE 1 TABLET UNDER THE TONGUE EVERY 8 HOURS NEEDED FOR NAUSEA for up to 10 doses01/08/2025tive promethazine (Phenergan) 25 MG tablet Take 25 mg by mouth every 6 (six) hours if vcrnap7801/08/2025tive pyridoxine (Vitamin B-6) 100 MG tablet Take 100 mg by mouth in the morning.Active psyllium (Metamucil) 400 MG capsule DailyDiscontinued Active Problems ProblemNoted DateDiagnosed DateHypoglycemia associated with wfhkieqm45/30/2025 Mixed obsessional thoughts and acts4PTSD (post-traumatic stress disorder)09/06/2023Type 1 diabetes mellitus without nqkexxfdbooud56/28/2023 Assessment & Plan (03/11/2024 7:46 PM EDT): During the appointment today all pertinent labs, imaging, health maintenance, and glucose readings were reviewed. Encouraged to check blood glucose throughout the day with some fasting and some PP readings. They are to bring their glucose meter/cgm in to all appointments. All of the patients questions, treatment options, and current care plan and goals were discussed. Acopy of this along with pertinent instructions were [...] current care plan and goals were discussed. Acopy of this along with pertinent instructions were given to the patient at the end of the appointment. The patient voices understanding of all of this and is to call in between appointments if they have any problems or questions. Dalia Johnson Amadou control is stable overall. , Will stay [...] current care plan and goals were discussed. Acopy of this along with pertinent instructions were given to the patient at the end of the appointment. The patient voices understanding of all of this and is to call in between appointments if they have any problems or questions. Dalia Johnson Colin is doing very well and encouraged on [...] current care plan and goals were discussed. Acopy of this along with pertinent instructions were [...] is to keep working on counting carbs/portion sizesand will stay with current pump settings. Type 1 diabetes mellitus with hypoglycemia and without coma02/04/2023ulging lumbar disc11/08/2022hronic cbnwfne9111/08/2022Lumbago with sciatica, left side 11/08/20224503Hrwfsuxv00/01/2023iliary kkwlterusd47/01/2023eneralized anxiety evssmocd93/25/2017Panic disorder without bfelphlkotn59/25/2017Celiac disease in pediatric wtddmbn5305/23/2016Mild intermittent dneiyl0205/23/2016Diabetes type 1, vsqvikampi49/18/2011Estimated Date of InvoeypoGfcycrckJzp82/27/2026ased on last menstrual period of 10/30/2024 Resolved Problems ProblemNoted DateDiagnosed DateResolved DateChronic izxjodfcuyouh93/22/2023 08/05/2023lood riugexi24Hypoglycemia due to type 1 diabetes cvruayxg81Other chronic painRight upper quadrant painiabetic ketoacidosis associated with type 1 diabetes ssxkafap34cute renal lugeexdifunuv32/11/2017 08/05/2023Mechanical breakdown of insulin pumpType 1 diabetes mellitus with ketoacidosis without coma Encounters DateTypeDepartmentCare DkbaCeusejpqgtw72/21/2025Orders Only [facility] [address] [place] [address] Kristopher Calvo, OD 03/25/2025 8:45 AM EDTOffice Visit [facility] [address] [place] [phone] Dru Rodriguez, DO Routine general medical examination at a health care facility (Primary Dx); Generalized anxiety disorder; Celiac disease in pediatric patient (HCC); Mild intermittent asthma, unspecified whether complicated ([facility])03/25/2025Orders Only [facility] [address] [place] [phone] Dru Rodriguez, DO 03/25/2025Telephone [facility] [address] [place] [phone] Lesa Boss LPN 03/25/2025amboo flowsheet [facility] [address] [place] [address] Dru Rodriguez, DO 03/25/20251176Dlyzck09/14/2025 8:50 AM EDTRoutine [facility] [address] Kolton Cao, DO Second trimester ([facility]); 20 weeks gestation of ([facility]); Type 1 diabetes mellitus during , antepartum ([facility])03/23/2025 Abstract [facility] [place] [address] Kolton Cao, DO 03/23/2025amboo flowsheet [facility] [address] Kolton Cao, DO 03/20/2025linisync Result Encounter [facility] External Department Unsolicited Kolton Cao, DO 03/08/2025Patient Outreach [facility] [address] [place] [address] Aline Dudley RN 02/24/2025Patient Outreach [facility] [address] [place] [address] Patria Woods, BIBI 02/23/2025Telephone [facility] [address] [facility] [phone] Stella Webb MA 02/23/2025Telephone [facility] [address] [facility] [phone] [phone] Stella Webb MA Error (VOID this visit)02/23/2025Orders Only [facility] [address] [facility] [address] Aline Fernández REPORTER ANCHOR 02/17/2025Telephone [facility] [address] [facility] [address] Katja Swanson, REPORTER ANCHOR 02/16/2025 2:00 PM EDTRoutine [facility] [address] [place] [address] Katharine Cummins PA 15 weeks gestation of ([facility]); Second trimester ([facility]); Screening, , for anatomic survey ([facility]); Exposure to STD; Vaginal discharge; Well woman exam with routine gynecological exam02/16/2025linisync Result Encounter [facility] External Department Unsolicited Katharine Cummins PA 02/16/2025External Result Encounter [facility] External Department Unsolicited Katharine Cummins PA 02/16/2025amboo flowsheet [facility] [address] [facility] [address] Katharine Cummins PA 01/25/2025 9:20 AM EDTRoutine [facility] [address] [facility] [address] Kolton Cao, DO 12 weeks gestation of ([facility]); First trimester ([facility])5Bamboo flowsheet [facility] [address] [facility] [address] Kolton Cao, DO 01/18/2025bstract [facility] [address] [facility] [phone] Kolton Cao, DO 01/18/2025bstract [facility] [address] [facility] [address] Kolton Cao, DO 01/14/2025Telephone [facility] [address] [facility] [address] Nicolasa Bailey SD 01/14/2025bstract [facility] [address] [facility] [address] Nicolasa Bailey SD 01/12/2025Patient Outreach [facility] [address] [place] [address] Kanika Parish LSW 01/06/2025Telephone [facility] [address] [facility] [address] Kolton Cao, DO 01/05/2025bstract [facility] [address] [facility] [address] Kolton Cao, DO 01/04/2025bstract [facility] [address] [facility] [address] Kolton Cao, DO 5Clinisync Result Encounter [facility] External Department Unsolicited Kolton Cao DO from Last 3 Months Immunizations ImmunizationAdministration DatesNext PpfOJF698173LXoF57/23/2004DTaP, Blqtvjkopbr66/13/2006,11/24/2002,2001,2001HPV, Quadrivalent 08/27/2013,08/21/2013,04/06/2013,03/02/2013Hep B, Adolescent or Pediatric 11/24/2002,2001,2001HiB, omxhwtklrli79/17/2003,2001,2001 Hib (PRP-T)03/02/2004IPV1,12/20/2005,2001Influenza, injectable, ihuynpvzaflf03/26/2021Influenza, injectable, quadrivalent, preservative free 06/12/2023,05/11/2022Influenza, seasonal, injectable, preservative free 03/17/2025,03/18/2024MMR1,12/20/2005,11/24/2002Meningococcal MCV4P 01/22/2018,03/02/2013PPD Test06/12/2023,06/05/2023,05/18/2022,05/11/2022 Pneumococcal Conjugate PCV 7008/05/2001Polio, Ukzyiatgvgw97/17/2003,2001 Tdap107/31/2022,03/02/20137997Xifikujhh28/21/2023,03/02/2013,03/18/2008,12/20/2005 Family History Medical HistoryRelationNameCommentsArthritisFatherJohn SeamonAsthmaFatherJohn SeamonStrokeMaternal GrandmotherCynthia HicksDrug abuseMotherKristy SeamonCancer OtherStrokeOtherStrokePaternal GrandfatherDiabetesSister 2Jozlindsey MelendezRelation KwnoCgqezzBkqarqdfFqapytuh8WwcncqNxke SeamonAliveMaternal GrandmotherCynthia HicksMotherKristy SeamonDeceasedOtherHalf BrotherPaternal GrandfatherSister 1x2 Sister 2Jozlytimur Melendez Social History Tobacco UseTypesPacks/DayYears UsedDateSmoking Tobacco: NeverSmokeless Tobacco: Never Tobacco Cessation:Counseling Given: No Alcohol UseStandard Drinks/WeekCommentsNot Currently0 (1 standard drink = 0.6 oz pure alcohol)SociallyHumiliation, Afraid, Rape, and Kick questionnaireAnswerDate RecordedWithin the last year, have you been [...] relatives?Twice a week03/11/2023How often do you attend holiness or latter-day services?1 to 4 times per year03/11/2023o you belong to any clubs or organizations such as holiness groups, unions, fraternal or athletic laura ups, or school groups?No03/11/2023How often do you attend meetings of the clubs or organizations you belong to?Never03/11/2023re you , , , , never , or living with a partner?Idmkbex5503/11/2023 AUDIT-CAnswerDate RecordedQ1: How often do you have a drink containing alcohol? Monthly or less03/11/2023Q2: How many drinks containing alcohol do you have on a typical day when you are drinking?3 or Q3: How often do you have six or more drinks on one occasion?Less than tgllppe6303/11/2023Overall Financial Resource Strain (CARDIA)AnswerDate RecordedHow hard is it for you to pay for the very basics like food, housing, medical care, and heating?Somewhat hard 03/11/2023HQ-2AnswerDate RecordedPatient Health Questionnaire-2 Score0 03/25/2025[facility] [place] [facility] - Occupational Stress QuestionnaireAnswerDate [...] place to sleep or slept in [facility] (including now)?No03/11/2023Estimated Date of TivmhqysWulclcleTzv50/27/2026ased on last menstrual period of 10/30/2024Sex and Gender InformationValueDate RecordedSex Assigned at ZmxuaRqgxfs65/01/2023 1:10 PM EDTLegal SdfOisyzw43/15/2023 6:51 PM EDTGender NcecvwqfVimltc21/01/2023 1:10 PM EDTSexual EbupfitratyHusjeakz56/01/2023 1:10 PM EDT Last Filed Vital Signs Vital SignReadingTime TakenCommentsBlood Edvkvgws494/7203/25/2025 8:46 AM EDT Slyqv214203/25/2025 8:46 AM IPBKgveynkvssh05 ??C (96.8 ??F)03/25/2025 8:46 AM EDT Respiratory Rate--Oxygen Notyhypova42%03/25/2025 8:46 AM EDTInhaled Oxygen Concentration--Anyewz78.3 kg (155 lb)03/25/2025 8:46 AM DMVPhunmc251.3 cm (4' 10 )03/25/2025 8:46 AM EDTBody Mass Index32.410 8:46 AM EDT Plan of Treatment DateTypeDepartmentCare Team (Latest Contact Info)Htdfockicfn98/28/2025 11:20 AM EDTRoutine [facility] [address] [facility] [phone] Katharine Cummins PA [address] [place] [address] Health MaintenanceDue DateLast DoneCommentsDiabetes: Hemoglobin A1C03/17/2025 12/15/2024, 12/15/2024, 12/15/2024, Additional history existsDiabetes: Urine Protein Ezoqzstoz68/20/47227210/27/2024, 11/11/2023, 11/11/2023, Additional history existsDiabetes: Retinopathy Exkziiggo11/21/279728, 06/30/2019 Influenza YbkyzzwVwadbcysf71/08/2025, 03/18/2024, 06/12/2023, Additional history exists Goals GoalPatient Goal TypeAssociated ProblemsRecent ProgressPatient-Stated?Author Reminders Care PlanOB RemindersNoOpen Scheduling, Background Procedures Procedure NamePriorityDate/TimeAssociated DiagnosisCommentsDIABETIC RETINOPATHY SCREENING - OU - BOTH ZTXUVyicuis25/21/2025 12:15 PM EDTCULTURE, URINE, ROUTINE Jsuolqs6203/24/2025 8:04 AM EDT Missed menses POCT URINALYSIS SPZSVESIVnqqisy37/14/2025 9:03 AM EDT 20 weeks gestation of ([facility]) [facility] URINE MICROSCOPIC IWWMHtmtida72/11/2025 7:28 AM EDT KSTXHBETUuvzmsw13/11/2025 7:28 AM EDT TBH UA (CLEAN/CATCH) SAMPLE SHOE INSPECTOR AND REWORKER/MICRO IF IND.Fndpglk2303/20/2025 7:28 AM EDT RECURRENT VAGINITIS (HTRX)Cghyotx8802/16/2025 3:21 PM EDT POCT URINALYSIS VIJBKEORXxtnvjo28/09/2025 2:17 PM EDT 15 weeks gestation of ([facility]) Second trimester ([facility]) IGP,APTIMA HPV,AGE XUZQGgunvvl98/09/2025 2:01 PM EDT PAP ZTAEKCmoptrg62/09/2025 12:00 AM EDTPOCT URINALYSIS CYPUFDYACmjnnhk70/18/2025 9:33 AM EDT 12 weeks gestation of ([facility]) First trimester ([facility]) HBSAG CTFJEBYaetmgt56/28/2025 10:18 AM EDT RAPID PLASMA REAGIN, MYOOWAycrwqh15/28/2025 10:18 AM EDT HIV AB/P24 AG WITH GBBLHABunalmr43/28/2025 10:18 AM EDT HCV ANTIBODY RFX TO QUANT XQIVhikcnc52/28/2025 10:18 AM EDT ALL RUBELLA IGG UOPiyydij37/28/2025 10:18 AM EDT ALL TYPE AND SZQBCSMsktlgx39/ 10:18 AM EDT MLR HEMOGLOBIN O0DYcfkevh85/28/2025 10:18 AM EDT ALL CBC WITH AUTO GNDPOuofaeu28/28/2025 10:18 AM EDT BOX AIKZFmiizco48/28/2025 10:18 AM EDT TBH DRUG SCREEN RAPID (URINE)Vwmyvgp2501/04/2025 10:03 AM EDT HEMOGLOBIN U7RDzfmytr05/08/2025 10:24 AM EDTMICROALBUMIN / CREATININE URINE BXTNLRnnuehx60/20/2025 from Last 3 Months or Most Recently Relevant to Health Maintenance Results * (ABNORMAL) Diabetic Retinopathy Screening - OU - Both Eyes (03/30/2025 12:15 PM EDT)Anatomical RegionLateralityModalityHeadOther Narrative Authorizing ProviderResult TypeResult StatusThomas W Suwannee ODOPHTH PHOTOGRAPHY Final Result * Urine culture (03/24/2025 8:04 AM EDT)Specimen (Source)Anatomical Location / LateralityCollection Method / VolumeCollection TimeReceived TimeUrineUrine specimen obtained by clean catch procedure / Unknown Narrative Authorizing ProviderResult TypeResult StatusCorey Kiley SHIELDS MICROBIOLOGY - GENERAL ORDERABLESFinal ResultPerforming OrganizationAddressCity/State/ZIP Code Phone Number EXTERNAL LAB * (ABNORMAL) POCT urinalysis dipstick manually resulted (03/23/2025 9:03 AM EDT) Only the most recent of3 resultswithin the time period is included. ComponentValueRef RangeTest MethodAnalysis TimePerformed AtPathologist Signature Color, UAYellowClarity, UAClearGlucose, UANegativeNegative - 2000(110) ++++ mg/dLBilirubin, UANegativeNegative - 4(70) +++ mg/dLKetones, UANegativeNegative - 160(16) ++++ mg/dLSpec Grav, UA1.0151 - 1.03Blood, UANegativeNegative - 50 Gyu/mcLpH, UA7.05 - 9Protein, UANegativeNegative - 2000(20) ++++ mg/dL Urobilinogen, UA2.00.2 - 12 mg/dLLeukocytes, UA3+Negative - 500+++ Danny/mcL Nitrite, UANegativeNegative - PositiveSpecimen (Source)Anatomical Location / LateralityCollection Method / VolumeCollection TimeReceived FkmrIgkfu73/14/2025 9:03 AM EDT Narrative Authorizing ProviderResult TypeResult StatusCorey Kiley DOPOINT OF CARE TEST ENTER/EDIT ORDERABLESFinal Result * AMNISURE (03/20/2025 7:28 AM EDT)ComponentValueRef RangeTest MethodAnalysis TimePerformed AtPathologist SignatureTB AMNISURENEGATIVENEGATIVETBHSpecimen (Source)Anatomical Location / LateralityCollection Method / VolumeCollection TimeReceived Time03/20/2025 7:28 AM EDT1 7:35 AM EDT Narrative [facility] - 03/20/2025 7:48 AM EDT Authorizing ProviderResult TypeResult StatusCorey Kiley DOLAB BLOOD ORDERABLES Final ResultPerforming OrganizationAddressCity/State/ZIP CodePhone Number [facility] * (ABNORMAL) [facility] URINE MICROSCOPIC ONLY (03/20/2025 7:28 AM EDT)ComponentValue Ref RangeTest MethodAnalysis TimePerformed AtPathologist SignatureTBH WBC5-10 (A)NONE SEEN #/HPFTBHTBH RBC0-20 - 2 #/HPFTBHBACTERIA URINETRACE(A)NONE SEEN #/HPFTBHMUCUS URINENONE SEENNONE SEENTBHSQUAMOUS EPITHELIAL CELL URINEFEW(A) NONE/RARE #/LPFTBHCRYSTALS SEEN?None SeenNone Seen #/HPFTBHCAST SEEN?NONE SEEN NONE SEEN #/LPFTBHURINE CULTURE INDICATEDYES-LCTBHSpecimen (Source)Anatomical Location / LateralityCollection Method / VolumeCollection TimeReceived Time 03/20/2025 7:28 AM EDT1 7:35 AM EDT Narrative [facility] - 03/20/2025 7:55 AM EDT Authorizing ProviderResult TypeResult StatusCorey Kiley DOCLINISYNCFinal Result Performing OrganizationAddressCity/State/ZIP CodePhone Number [facility] * (ABNORMAL) TBH UA (CLEAN/CATCH) SAMPLE SHOE INSPECTOR AND REWORKER/MICRO IF IND. (03/20/2025 7:28 AM EDT) ComponentValueRef RangeTest MethodAnalysis TimePerformed AtPathologist SignatureCOLOR URINELT. YELLOWYELLOWTBHCLARITY URINECLEARCLEARTBHSPECIFIC GRAVITY URINE1.0251.005 - 1.025TBHPH URINE6.05.0 - 9.0TBHPROTEIN URINENEGATIVE NEG/TRACE mg/dLTBHGLUCOSE URINE UANEGATIVENEGATIVE mg/dLTBHBILIRUBIN URINE NEGATIVENEGATIVETBHKETONES URINENEGATIVENEGATIVE mg/dLTBHBLOOD URINENEGATIVE NEGATIVETBHNITRITE URINENEGATIVENEGATIVETBHUROBILINOGEN URINE1.00.2 - 1.0 EU/dLTBHLEUKOCYTE ESTERASE URINELARGE(A)NEGATIVETBHURINE MICROSCOPIC INDICATED YESTBHSpecimen (Source)Anatomical Location / LateralityCollection Method / VolumeCollection TimeReceived Time03/20/2025 7:28 AM EDT1 7:35 AM EDT [facility] - 03/20/2025 7:55 AM EDT Authorizing ProviderResult TypeResult StatusCorey Kiley DOCLINISYNCFinal Result Performing OrganizationAddressCity/State/ZIP CodePhone Number [facility] * (ABNORMAL) RECURRENT VAGINITIS (HTRX) (02/16/2025 3:21 PM EDT)ComponentValue Ref RangeTest MethodAnalysis TimePerformed AtPathologist SignatureATOPOBIUM YBEADFL70.792(A)19.961 - 24.689 ppm02/17/2025 6:29 AM EDTHealthTrackRx at LabPortATOPOBIUM VAGINAEDetected(A)19.961 - 24.689 ppm02/17/2025 6:29 AM EDT [facility] at LabPortBVAB 2,3 (BACTERIAL VAGINOSIS ASSOCIATED BACTERIA 2, 3); MOBILUNCUS SPP13.669(A)19.961 - 24.689 ppm02/17/2025 6:29 AM EDT [facility] at LabPortBVAB 2,3 (BACTERIAL VAGINOSIS ASSOCIATED BACTERIA 2, 3); MOBILUNCUS SPPDetected(A)19.961 - 24.689 ppm02/17/2025 6:29 AM EDT [facility] at LabPortCANDIDA ALBICANS, PARAPSILOSIS, YJEQAALTTO55.36(A) 23.000 - 30.347 ppm02/17/2025 6:29 AM EDTHealthTrackRx at LabPortCANDIDA ALBICANS, PARAPSILOSIS, TROPICALISDetected(A)23.000 - 30.347 ppm02/17/2025 6:29 AM EDTHealthTrackRx at LabPortCANDIDA OLVEETNV069.000 - 31.618 ppm 02/17/2025 6:29 AM EDTHealthTrackRx at LabPortCANDIDA GLABRATANot Detected 23.000 - 31.618 ppm02/17/2025 6:29 AM EDTHealthTrackRx at LabPortCANDIDA OUFFUR706.000 - 30.873 ppm02/17/2025 6:29 AM EDTHealthTrackRx at LabPort ESTEFANÍA KRUSEINot Ftmgipkw52.000 - 30.873 ppm02/17/2025 6:29 AM EDT [facility] at LabPortCHLAMYDIA QZBNNWWBNQV301.000 - 31.586 ppm02/17/2025 6:29 AM EDTHealthTrackRx at LabPortCHLAMYDIA TRACHOMATISNot Uuuggdld74.000 - 31.586 ppm02/17/2025 6:29 AM EDTHealthTrackRx at [facility] CenterPortGARDNERELLA VAGINALIS 29.985(A)19.961 - 24.689 ppm02/17/2025 6:29 AM EDTHealthTrackRx at LabPort GARDNERELLA VAGINALISDetected(A)19.961 - 24.689 ppm09 6:29 AM EDT [facility] CenterPortMEGASPHAERA (TYPES 1, 2)14.74(A)19.961 - 24.689 ppm 02/17/2025 6:29 AM EDTHealthTrackRx at LabSt. Vincent Pediatric Rehabilitation CenterMEGASPHAERA (TYPES 1, 2)Detected (A)19.961 - 24.689 ppm02/17/2025 6:[address] [facility] CenterNEISSERIA IYTNGYRTOXV751.000 - 32.587 ppm02/17/2025 6:[address] [facility] NEISSERIA GONORRHOEAENot Yrmxqfxl10.000 - 32.587 ppm02/17/2025 6:29 AM EDT [facility] CenterTRICHOMONAS THMMTKRWX022.000 - 31.995 ppm02/17/2025 6:[address] [facility] CenterTRICHOMONAS VAGINALISNot Ynqjscig17.000 - 31.995 ppm02/17/2025 6:[address] [facility] Medical CenterMYCOPLASMA GENITALIUM0 19.961 - 24.689 ppm02/17/2025 6:[address] [facility] Medical CenterMYCOPLASMA GENITALIUMNot Jvfmzzhu34.961 - 24.689 ppm02/17/2025 6:29 AM EDTHealthTrackRx at [facility], C; MEFA20.721(A)23.000 - 27.500 ppm02/17/2025 6:29 AM EDT [facility], C; MEFADetected(A)23.000 - 27.500 ppm02/17/2025 6:[address] [facility] CenterTET B, TET M18.259(A)23.000 - 27.500 ppm 02/17/2025 6:[address] [facility] CenterTET B, TET MDetected(A)23.000 - 27.500 ppm02/17/2025 6:[address] [facility] Medical CenterSpecimen (Source) Anatomical Location / LateralityCollection Method / VolumeCollection Time Received UboqEqwown74/09/2025 3:21 PM EDT02/17/2025 1:43 AM EDT Narrative Authorizing ProviderResult TypeResult StatusAmy Maria G JERNIGAN BLOOD ORDERABLES Final ResultPerforming OrganizationAddressCity/State/ZIP CodePhone Number [facility] [address] [address] * IGP,APTIMA HPV,AGE GDLN (02/16/2025 2:01 PM EDT)ComponentValueRef RangeTest MethodAnalysis TimePerformed AtPathologist SignatureAGE GDLN ACOG TESTINGNote. TBHComment: ?? TESTS ? RESULT ??FLAG ??UNITS ?REF RANGE ??LAB ?? Clinician Provided Cytology Information ?? Source.............Endocervix ?? No. of containers..01 ThinPrep Vial Age Algo ACOG Marita... ??21-29 ? 01 ?FLAG LEGEND: ?L-Low Normal,H-High Normal,LL-Alert Low,HH-Alert High <-Panic Low,>-Panic High,A-Abnormal,AA-Critical Abnormal Performed at: 01 =G ?[facility] ?? [address] [place] ??[id number] ?? Maryjane Up MD, IGP, RFX APTIMA HPV ASCUNote.TBHComment: ?? TESTS ? RESULT ??FLAG ??UNITS ?REF RANGE ??LAB DIAGNOSIS: ?02 ?? NEGATIVE FOR INTRAEPITHELIAL LESION OR MALIGNANCY. Specimen adequacy: ?02 ?? Satisfactory for evaluation. No endocervical component is identified. Performed by: ? 02 ?? Clarita Somers, Balance Staff Inspector ([facility]) . ? 02 Note: ? Note ?02 ?? The Pap smear is a screening test designed to aid in the ?? detection of premalignant and malignant conditions of the ?? uterine cervix. ??It is not a diagnostic procedure and ?? should not be used as the sole means of detecting cervical ?? cancer. ??Both false-positive and false-negative reports do ?? occur. Test Methodology: ? Note ?02 ?? This liquid based ThinPrep(R) pap test was screened with ?? the use of an image guided system. . ? 02 ?? The HPV DNA reflex criteria were not met with this specimen ?? result therefore, no HPV testing was performed. ?FLAG LEGEND: ?L-Low Normal,H-High Normal,LL-Alert Low,HH-Alert High <-Panic Low,>-Panic High,A-Abnormal,AA-Critical Abnormal Performed at: 02 WB ?[facility] ?? [address], [place] ??[phone] ?? Maryjane Up MD, Performed at: ??=G - [facility] [address], [place] ??[id number] Bread Supervisor: Maryjane Up MD, Phone: ??[phone] Performed at: ??WB - [facility] [address] ??[id number] Bread Supervisor: Maryjane Up MD, Phone: ??[phone] Specimen (Source)Anatomical Location / LateralityCollection Method / Volume Collection TimeReceived Time02/16/2025 2:01 PM EDT02/16/2025 7:54 PM EDT Narrative [facility] - 02/19/2025 1:08 PM EDT SPATULA-[facility]ONE [facility]OCERVIX Authorizing ProviderResult TypeResult StatusAmy Maria G PALAB BLOOD ORDERABLES Final ResultPerforming OrganizationAddSt. Christopher's Hospital for Childrenty/State/ZIP CodePhone Number [facility] * Pap Smear (02/16/2025 12:00 AM EDT)Specimen (Source)Anatomical Location / LateralityCollection Method / VolumeCollection TimeReceived TimeSwabCervical swab / Unknown Narrative Authorizing ProviderResult TypeResult StatusFazio Nurse Noms Bcp ObLAB CYTOLOGY ORDERABLESFinal ResultPerforming OrganizationAddressCity/State/ZIP CodePhone Number EXTERNAL LAB * BOX TEST (01/04/2025 10:18 AM EDT)ComponentValueRef RangeTest MethodAnalysis TimePerformed AtPathologist SignatureBOX TEST SENT EPUSSZLHGWFSHI4MUSLHAVLXLE3 01/04/2025TBHSpecimen (Source)Anatomical Location / LateralityCollection Method / VolumeCollection TimeReceived Time01/04/2025 10:18 AM EDT01/04/2025 10:24 AM EDT Narrative [facility] - 01/04/2025 10:32 AM EDT Authorizing ProviderResult TypeResult StatusCorey Kiley DOLAB BLOOD ORDERABLES Final ResultPerforming OrganizationAddSt. Christopher's Hospital for Childrenty/State/ZIP CodePhone Number [facility] * HBSAG SCREEN (01/04/2025 10:18 AM EDT)ComponentValueRef RangeTest Method Analysis TimePerformed AtPathologist SignatureHBSAG SCREENNegativeNegativeTBH Comment: Performed at: ??CB - [facility] [address] ??[id number] Bread Supervisor: Chaka Almanzar PhD, Phone: ??[phone] Specimen (Source)Anatomical Location / LateralityCollection Method / Volume Collection TimeReceived Time01/04/2025 10:18 AM EDT01/04/2025 10:24 AM EDT Narrative [facility] - 01/05/2025 12:08 PM EDT Authorizing ProviderResult TypeResult StatusCorey Kiley DOLAB BLOOD ORDERABLES Final ResultPerforming OrganizationAddressty/State/ZIP CodePhone Number [facility] * RAPID PLASMA REAGIN, QUANT (01/04/2025 10:18 AM EDT)ComponentValueRef Range Test MethodAnalysis TimePerformed AtPathologist SignatureRAPID PLASMA REAGIN, QUANTNon ReactiveNonRea<1:1 titerTBHComment: Please Note: This test does not meet current guidelines for screening and diagnosis of syphilis. This test is intended for following treatment response in patients being treated for syphilis infection. To screen for syphilis infection, a reflex cascade that includes both RPR and a treponema-specific assay should be utilized, such as Treponema pallidum (Syphilis) Screening [place]bs (085600) or Rapid Plasma Reagin (RPR) Test With Reflex to Quantitative RPR and Confirmatory Treponema pallidum Antibodies (073972). Performed at: ??[address] ??[id number] Bread Supervisor: Chaka Almanzar PhD, Phone: ??[phone] Specimen (Source)Anatomical Location / LateralityCollection Method / Volume Collection TimeReceived Time01/04/2025 10:18 AM EDT01/04/2025 10:24 AM EDT Narrative [facility] - 01/05/2025 12:08 PM EDT Authorizing ProviderResult TypeResult StatusCorey KileyEncino Hospital Medical [facility] BLOOD ORDERABLES Final ResultPerforming OrganizationAddressCity/State/ZIP CodePhone Number [facility] * HIV AB/P24 AG WITH REFLEX (01/04/2025 10:18 AM EDT)ComponentValueRef RangeTest MethodAnalysis TimePerformed AtPathologist SignatureHIV AB/P24 AG SCREENNon ReactiveNon ReactiveTBHComment: HIV-1/HIV-2 antibodies and HIV-1 p24 antigen were NOT detected. There is no laboratory evidence of HIV infection. HIV Negative Performed at: ??[facility] ??[id number] Bread Supervisor: Chaka Almanzar PhD, Phone: ??[phone] Specimen (Source)Anatomical Location / LateralityCollection Method / Volume Collection TimeReceived Time01/04/2025 10:18 AM EDT01/04/2025 10:24 AM EDT Narrative [facility] - 01/05/2025 5:11 AM EDT Authorizing ProviderResult TypeResult StatusCorey Kiley DOLAB BLOOD ORDERABLES Final ResultPerforming OrganizationAddressty/State/ZIP CodePhone Number [facility] * HCV ANTIBODY RFX TO QUANT PCR (01/04/2025 10:18 AM EDT)ComponentValueRef Range Test MethodAnalysis TimePerformed AtPathologist SignatureHCV ABNon ReactiveNon ReactiveTBHINTERPRETATION:Comment.TBHComment: Not infected with HCV unless early or acute infection is suspected (which may be delayed in an immunocompromised individual), or other evidence exists to indicate HCV infection. Performed at: ?? - [facility] [address] ??[id number] Bread Supervisor: Chaka Almanzar PhD, Phone: ??[phone] Specimen (Source)Anatomical Location / LateralityCollection Method / Volume Collection TimeReceived Time01/04/2025 10:18 AM EDT01/04/2025 10:24 AM EDT Narrative [facility] - 01/05/2025 5:11 AM EDT Authorizing ProviderResult TypeResult StatusCorey Kiley DOLAB BLOOD ORDERABLES Final ResultPerforming OrganizationAddressCity/State/ZIP CodePhone Number [facility] * (ABNORMAL) MLR HEMOGLOBIN A1C (01/04/2025 10:18 AM EDT)ComponentValueRef Range Test MethodAnalysis TimePerformed AtPathologist SignatureGLYCOHEMOGLOBIN A1C 7.1(H)4.5 - 6.2 %TBHComment: ADA RECOMMENDED LIMIT 4.0 - 6.0 ADA THERAPEUTIC TARGET < 7.0 ACTION SUGGESTED > 7.0 ESTIMATED AVERAGE UUZSBCI956kn/dLTBHSpecimen (Source)Anatomical Location / LateralityCollection Method / VolumeCollection TimeReceived Time01/04/2025 10:18 AM EDT01/04/2025 10:24 AM EDT Narrative [facility] - 01/04/2025 11:30 AM EDT Authorizing ProviderResult TypeResult StatusCorey Kiley DOCLINISYNCFinal Result Performing OrganizationAddressCity/State/ZIP CodePhone Number [facility] * ALL TYPE AND SCREEN (01/04/2025 10:18 AM EDT)ComponentValueRef RangeTest MethodAnalysis TimePerformed AtPathologist SignatureBLOOD TYPEO NegativeTBH ANTIBODY SCREENNEGATIVETBHSpecimen (Source)Anatomical Location / Laterality Collection Method / VolumeCollection TimeReceived Time01/04/2025 10:18 AM EDT 01/04/2025 10:24 AM EDT Narrative [facility] - 01/04/2025 1:11 PM EDT [facility] , ?? Authorizing ProviderResult TypeResult StatusCorey Kiley DOCLINISYNCFinal Result Performing OrganizationAddressCity/State/ZIP CodePhone Number [facility] * ALL RUBELLA IGG AB (01/04/2025 10:18 AM EDT)ComponentValueRef RangeTest Method Analysis TimePerformed AtPathologist SignatureRUBELLA ANTIBODIES, IGG1.29 Immune >0.99 indexTBHComment: Non-immune <0.90 ?Equivocal ??0.90 - 0.99 Immune >0.99 Performed at: ??CB - [facility] [address] ??[id number] Bread Supervisor: Chaka Almanzar PhD, Phone: ??[phone] Specimen (Source)Anatomical Location / LateralityCollection Method / Volume Collection TimeReceived Time01/04/2025 10:18 AM EDT01/04/2025 10:24 AM EDT Narrative [facility] - 01/05/2025 5:11 AM EDT Authorizing ProviderResult TypeResult StatusCorey Kiley DOCLINISYNCFinal Result Performing OrganizationAddressCity/State/ZIP CodePhone Number [facility] * (ABNORMAL) ALL CBC WITH AUTO DIFF (01/04/2025 10:18 AM EDT)ComponentValueRef RangeTest MethodAnalysis TimePerformed AtPathologist SignatureTBH WBC12.7(H) 4.0 - 11.0 10 3/uLTBHTBH RBC4.09(L)4.20 - 5.40 10 6/uLTBHTBH HGB12.312.0 - 16.0 g/dLTBHTBH HCT35.7(L)36.0 - 48.0 %TBHTBH MCV87.381.0 - 99.0 fLTBHTBH MCH 30.126.7 - 34.0 pgTBHTBH MCHC34.529.9 - 35.2 g/dLTBHTBH RDW12.711.0 - 15.0 % TBHTBH LPM115014 - 450 10 3/uLTBHTBH MPV10.59.5 - 13.5 fLTBHNEUTROPHILS PERCENT AUTO72.543.0 - 75.0 %TBHLYMPHOCYTES PERCENT AUTO20.4(L)20.5 - 60.0 % TBHMONOCYTES PERCENT AUTO5.51.7 - 12.0 %TBHTBH EO %0.8(L)0.9 - 7.0 %TBH BASOPHILS PERCENT AUTO0.30.2 - 2.0 %TBHIMMATURE GRANULOCYTES PCT AUTO0.50.0 - 0.5 %TBHNEUTROPHILS ABSOLUTE AUTO9.2(H)1.4 - 6.5 10 3/uLTBHLYMPHOCYTES ABSOLUTE AUTO2.61.2 - 3.8 10 3/uLTBHMONOCYTES ABSOLUTE AUTO0.70.3 - 0.8 10 3/uLTBHTBH EO #0.10.0 - 0.7 10 3/uLTBHBASOPHILS ABSOLUTE AUTO0.00.0 - 0.1 10 3/uLTBHIMMATURE GRANULOCYTES ABS AUTO0.06(H)0.00 - 0.03 10 3/uLTBHSpecimen (Source)Anatomical Location / LateralityCollection Method / VolumeCollection TimeReceived Time01/04/2025 10:18 AM EDT01/04/2025 10:24 AM EDT Narrative [facility] - 01/04/2025 10:42 AM EDT Authorizing ProviderResult TypeResult StatusCorey Kiley DOCLINISYNCFinal Result Performing OrganizationAddressCity/State/ZIP CodePhone Number [facility] * [facility] DRUG SCREEN RAPID (URINE) (01/04/2025 10:03 AM EDT)ComponentValueRef Range Test MethodAnalysis TimePerformed AtPathologist SignatureCANNABINOID SCREEN URINENEGATIVENEGATIVETBHPHENCYCLIDINE SCREEN URINENEGATIVENEGATIVETBHCOCAINE SCREEN URINENEGATIVENEGATIVETBHMETHAMPHETAMINES SCREEN URINENEGATIVENEGATIVE TBHOPIATE SCREEN URINENEGATIVENEGATIVETBHAMPHETAMINE SCREEN URINENEGATIVE NEGATIVETBHBENZODIAZEPINES SCREEN URINENEGATIVENEGATIVETBHTRICYCLIC ANTIDEPRESSANT URINENEGATIVENEGATIVETBHMETHADONE SCREEN URINENEGATIVENEGATIVE TBHBARBITURATES SCREEN URINENEGATIVENEGATIVETBHOXYCODONE SCREEN URINENEGATIVE NEGATIVETBHBUPRENORPHINE SCREEN URINENEGATIVENEGATIVETBHComment: DRUG CLASS TEST SYSTEM CUT-OFF CONCENTRATIONS ARE FOLLOWS: AMP (Amphetamine): 500 ng/mL BAR (Barbiturates): 200 ng/mL BZO (Benzodiazepines): 150 ng/mL BUP (Buprenorphine): 10 ng/mL GRECIA (Cocaine): 150 ng/mL mAMP (Methamphetamine): 500 ng/mL MTD (Methadone): 200 ng/mL OPI (Opiates): 100 ng/mL OXY (Oxycodone): 100 ng/mL PCP (Phencyclidine): 25 ng/mL THC (Cannabinoids): 50 ng/mL TCA (Trycyclic Antidepressants): 300 ng/mL Specimen (Source)Anatomical Location / LateralityCollection Method / Volume Collection TimeReceived Time01/04/2025 10:03 AM EDT01/04/2025 10:25 AM EDT Narrative [facility] - 01/04/2025 10:51 AM EDT Authorizing ProviderResult TypeResult StatusCorey Kiley DOCLINISYNCFinal Result Performing OrganizationAddressCity/State/ZIP CodePhone Number [facility] * (ABNORMAL) Hemoglobin A1c (12/15/2024 10:24 AM EDT)Specimen (Source)Anatomical Location / LateralityCollection Method / VolumeCollection TimeReceived Time BloodVenous blood specimen / Unknown Narrative Authorizing ProviderResult TypeResult StatusMattallan Rodriguez DOLAB BLOOD ORDERABLESFinal Result * Microalbumin / creatinine urine ratio (10/27/2024)ComponentValueRef RangeTest MethodAnalysis TimePerformed AtPathologist SignatureMICROALBUMIN, URINE10.2 Specimen (Source)Anatomical Location / LateralityCollection Method / Volume Collection TimeReceived TimeUrineUrine specimen obtained by clean catch procedure / Zekrfut5510/27/2024 Narrative Authorizing ProviderResult TypeResult StatusFirelands Physician GroupLAB URINE ORDERABLESFinal Result from Last 3 Months or Most Recently Relevant to Health Maintenance Additional Health Concerns Active ProblemsNoted DateDiagnosed DateOB Wdqejzfym25/24/2025 Insurance Care Teams Team MemberRelationshipSpecialtyStart DateEnd Date Dru Rodriguez DO [address] [place] [address] [facility] - [facility]22 Dru Rodriguez DO [address] [place] [address] PCP - Medical [place] Vqliouikcv27/1/
--- OUTSIDE RECORDS SUMMARY | 2025-04-06 07:44 | XMS_ITS | Encounter Summary ---
Author Organization [facility] tem Address [facility]-[id number] [address] [place] [address] Care Team Providers Care Independent Living Instructor Name Role Phone JenniferDru April MUNGUIA Primary Care Provider +1- [phone] Encounter Details DateTypeDepartmentCare Team (Latest Contact Info)Bhahntzmywc62/15/2025Telephone Maternal- Medicine at [facility] [address] [facility] [place] [phone] Maritza Milian Social History Tobacco UseTypesPacks/DayYears UsedDateSmoking Tobacco: NeverSmokeless Tobacco: NeverAlcohol UseStandard Drinks/WeekCommentsYes0 (1 standard drink = 0.6 oz pure alcohol)[facility] UtilitiesAnswerDate RecordedIn the past 12 months has the [employer], gas, oil, or water [employer] threatened to shut off services in your [...] care, and heating?Not hard at all02/17/2025PHQ-2AnswerDate RecordedTotal Jtaha047Finbeaver valley hospital [place] of Occupational Health - Occupational Stress QuestionnaireAnswerDate [...] part of a household?No02/17/2025hildcareAnswerDate RecordedDo problems getting children's entertainer make it 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 I was unable to schedule her in [place]. Though her apts w/ providers are mychart video visits,thank you documented in this encounter Plan of Treatment DateTypeDepartmentCare Team (Latest Contact Info)Tfqrcdotjlq11/04/2025 8:00 AM ESTTelemedicine Maternal- Medicine at [facility] [address] [place] [phone] Poncho Jeffrey MD [address] [facility] [address], [address] [place] [address] 04/14/2025 8:00 AM ESTAppointment [facility] US Imaging [address] [place] [phone] documented as of this encounter Visit Diagnoses Diagnosis Uncontrolled type 1 diabetes mellitus with hyperglycemia, with long-term current use of insulin ([facility]) documented in this encounter Additional Health Concerns AssessmentNoted TimePHQ-9 Depression Total Score: 8:31 AM ESTA Body Mass Index follow-up plan has been documented for the vvjvnxy8206/12/2023 4:35 PM ESTdocumented as of this encounter Care Teams Team MemberRelationshipSpecialtyStart DateEnd Date Dru Rodriguez DO [address] [place] [address] PCP - General01/01/17documented as of this encounter
--- OUTSIDE RECORDS SUMMARY | 2025-04-06 07:44 | XMS_ITS | Encounter Summary ---
Author Organization [facility] tem Address [facility][id number] [address] [place] [address] Care Team Providers Care Track Patrol Name Role Phone Dru Rodriguez April MUNGUIA Primary Care Provider +1- [phone] Encounter Details DateTypeDepartmentCare Team (Latest Contact Info)Sjoeuuhgwdl19/20/2025Orders Only Maternal- Medicine at [facility] [address] [facility] [place] [phone] Debby Garcia RN Social History Tobacco UseTypesPacks/DayYears UsedDateSmoking Tobacco: NeverSmokeless Tobacco: NeverAlcohol UseStandard Drinks/WeekCommentsYes0 (1 standard drink = 0.6 oz pure alcohol)[facility] UtilitiesAnswerDate RecordedIn the past 12 months has the [employer], oil, or water [employer] threatened to shut off services in your [...] care, and heating?Not hard at all02/17/2025PHQ-2AnswerDate RecordedTotal Lboon21306/12/2023Finmckay-[facility] hospital center [place] of Occupational Health - Occupational Stress QuestionnaireAnswerDate [...] part of a household?No02/17/2025hildcareAnswerDate RecordedDo problems getting home child care provider make it difficult for you to work [...] and direction in my life.Agree02/17/2025Estimated Date of KqatirriLwlpadaqZha14/27/2026Based on last menstrual period of 10/30/2024Sex and Gender InformationValueDate RecordedSex Assigned at TthglSpyfae57/22/2025 1:51 AM EDTLegal SexFemale 01/13/2015 11:58 AM EDTGender OnfyreihGnmuwn56/22/2025 1:51 AM EDTSexual OrientationNot on filedocumented as of this encounter Plan of Treatment DateTypeDepartmentCare Team (Latest Contact Info)Ydoxtjcmusb00/04/2025 8:00 AM ESTTelemedicine Maternal- Medicine at [facility] [address] [facility] [place] [phone] Poncho Jeffrey MD [address], [address] [place] [address] 04/14/2025 8:00 AM ESTAppointment [facility] US Imaging [address] [facility] [place] [phone] documented as of this encounter Visit Diagnoses Not on filedocumented in this encounter Additional Health Concerns AssessmentNoted TimePHQ-9 Depression Total Score: 8:31 AM ESTA Body Mass Index follow-up plan has been documented for the glkezzb3106/12/2023 4:35 PM ESTdocumented as of this encounter Care Teams Team MemberRelationshipSpecialtyStart DateEnd Date Dru Rodriguez DO [address] [place] [address] PCP - General01/01/17documented as of this encounter
--- OUTSIDE RECORDS SUMMARY | 2025-04-06 07:44 | XMS_ITS ---
Author Organization [facility] Source Produ ction (ClinicalSummary Clone) Address Unknown Care Team Providers Care Coating Technician Name Role Phone Unavailable Primary Care Physician Unavailab le Results * [UNITY] CARRIER SCREEN Performed by: Vahna Component Value Range Date Sickle Cell Disease/Beta-Thalassemia/Hemoglobino pathies carrier screen NEGATIVE 01/16/2025 06:21 am UTCAlpha-Thalassemia carrier iikflnPWFKFHSO11/09/2025 06:21 am UTCCystic Fibrosis carrier mjpmtnYARDKYKU20/09/2025 06:21 am UTCSpinal Muscular Atrophy carrier screenNEGATIVE 2 SMN1 copies, SNP not shzgpzb9001/16/2025 06:21 am UTCFor detailed report, see PDFSee PDF01/16/2025 06:21 am UTC 01/16/2025 06:21 am UTC Social History Observation Value Start Date End Date
--- OUTSIDE RECORDS SUMMARY | 2025-04-06 07:44 | XMS_ITS | Encounter Summary ---
Author Organization [facility] tem Address [facility][id number] [address] [place] [address] Care Team Providers Care Arrow Point Attacher Name Role Phone Dru Rodriguez Primary Care Provider +1- [phone] Encounter Details DateTypeDepartmentCare Team (Latest Contact Info)Qtnydfkofsh28/27/2025Orders Only Maternal- Medicine at [facility] [address] [facility] [place] [phone] Clarita Mchugh, [facility] Social History Tobacco UseTypesPacks/DayYears UsedDateSmoking Tobacco: NeverSmokeless Tobacco: NeverAlcohol UseStandard Drinks/WeekCommentsYes0 (1 standard drink = 0.6 oz pure alcohol)[facility] UtilitiesAnswerDate RecordedIn the past 12 months has the [employer], gas, oil, or water [employer] threatened to shut off services in your [...] care, and heating?Not hard at all02/17/2025PHQ-2AnswerDate RecordedTotal Lssus07506/12/2023Fin[facility] [place] of Occupational Health - Occupational Stress QuestionnaireAnswerDate [...] of a household?No02/17/2025hildcareAnswerDate RecordedDo problems getting child care associate teacher make it difficult for you to [...] and direction in my life.Agree02/17/2025Estimated Date of KtbwmcxrCauucwnxSta50/27/2026Based on last menstrual period of 10/30/2024Sex and Gender InformationValueDate RecordedSex Assigned at FsslyWizjkr44/22/2025 1:51 AM EDTLegal SexFemale 01/13/2015 11:58 AM EDTGender UlbgzzobAshdzz26/22/2025 1:51 AM EDTSexual OrientationNot on filedocumented as of this encounter Plan of Treatment DateTypeDepartmentCare Team (Latest Contact Info)Xxeyuwmchoo14/04/2025 8:00 AM ESTTelemedicine Maternal- Medicine at [facility] [address] [facility] [place] [phone] Poncho Jeffrey MD [address], [address] [place] [address] 04/14/2025 8:00 AM ESTAppointment [facility] Imaging [address] [facility] [place] [phone] documented as of this encounter Visit Diagnoses Not on filedocumented in this encounter Additional Health Concerns AssessmentNoted TimePHQ-9 Depression Total Score: 8:31 AM ESTA Body Mass Index follow-up plan has been documented for the uokkxif3406/12/2023 4:35 PM ESTdocumented as of this encounter Care Teams Team MemberRelationshipSpecialtyStart DateEnd Date Dru Rodriguez DO [address] [place] [address] PCP - General01/01/17documented as of this encounter
--- OUTSIDE RECORDS SUMMARY | 2025-04-06 07:44 | XMS_ITS | Encounter Summary ---
Author Organization [facility] tem Address [facility]-[id number] [address] [place] [address] Care Team Providers Care Calender Operator Name Role Phone JenniferDru April MUNGUIA Primary Care Provider +1- [phone] Encounter Details DateTypeDepartmentCare Team (Latest Contact Info)Quylwttgqzq73/20/2025Travel Social History Tobacco UseTypesPacks/DayYears UsedDateSmoking Tobacco: NeverSmokeless Tobacco: NeverAlcohol UseStandard Drinks/WeekCommentsYes0 (1 standard drink = 0.6 oz pure alcohol)socialMAN[facility]FIELD [facility] UtilitiesAnswerDate RecordedIn the past 12 months has the electric, gas, oil, or water company threatened to shut off services in your [...] care, and heating?Not hard at all02/17/2025PHQ-2AnswerDate RecordedTotal Myflb197Finst. mark's hospital [place] of Occupational Health - Occupational Stress QuestionnaireAnswerDate [...] part of a household?No02/17/2025hildcareAnswerDate RecordedDo problems getting children librarian make it difficult for you to work [...] and direction in my life.Agree02/17/2025Estimated Date of KntxyiubDyulprdjScw47/27/2026Based on last menstrual period of 10/30/2024Sex and Gender InformationValueDate RecordedSex Assigned at HjkaiYvszra96/22/2025 1:51 AM EDTLegal SexFemale 01/13/2015 11:58 AM EDTGender RqrvqhmgNbtgnn16/22/2025 1:51 AM EDTSexual OrientationNot on filedocumented as of this encounter Plan of Treatment DateTypeDepartmentCare Team (Latest Contact Info)Kolqjmffnyu01/04/2025 8:00 AM ESTTelemedicine Maternal- Medicine at [facility] [address] [place] [address] Poncho Jeffrey MD [address], [address] [place] [address] 04/14/2025 8:00 AM ESTAppointment [facility] US Imaging [address] [place] [phone] documented as of this encounter Visit Diagnoses Not on filedocumented in this encounter Additional Health Concerns AssessmentNoted TimePHQ-9 Depression Total Score: 8:31 AM ESTA Body Mass Index follow-up plan has been documented for the vilvcsk6406/12/2023 4:35 PM ESTdocumented as of this encounter Care Teams Team MemberRelationshipSpecialtyStart DateEnd Date Dru Rodriguez DO [address] [place] [address] PCP - General01/01/17documented as of this encounter
--- NOTE | 2025-04-06 07:50 | ECG_ITS ---
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
[2025-04-06 08:26] LABS: Hematocrit 32.5 % (36.0-48.0); Hemoglobin 11.3 g/dL (12.0-16.0); Immature Granulocytes Abs Auto 0.15 10^3/uL (0.00-0.03); Immature Granulocytes Pct Auto 1.2 % (0.0-0.5); Lymphocytes Absolute Auto 2.4 10^3/uL (1.2-3.8); Mean Corpuscular HGB Conc 34.8 g/dL (29.9-35.2); Mean Corpuscular Hemoglobin 31.0 pg (26.7-34.0); Mean Corpuscular Volume 89.0 fL (81.0-99.0); Platelet Count 262 10^3/uL (150-450); Red Blood Count 3.65 10^6/uL (4.20-5.40); White Blood Count 13.0 10^3/uL (4.0-11.0)
--- NOTE | 2025-04-06 08:33 | ED.GENADUL1 ---
HPI HPI - General Adult General Chief complaint: Recheck/Abnormal Lab/Rx Stated complaint: HIGH BLOOD SUGAR 22 WEEKS Time Seen by Provider: 04/06/25 07:46 Source: patient Mode of arrival: walk-in Limitations: no limitations History of Present Illness HPI narrative: And have history of type 1 diabetes on insulin pump is coming to the ER after she had been having blood sugar [id number] for the last few days she mentioned that yesterday she had reading of high multiple time including at 3 AM when she provided herself from 3 AM to 8 AM with 20 units of subcu lispro insulin The patient does not have the pump automated she will control it herself with the insulin sliding scale and counting her carbohydrates The patient does not have any significant pain she mentioned that she is feeling tired sometimes and she is feeling hungry a lot of the time but she is not sure if that because of her which is her first or because of the diabetes the patient 22 weeks and she was told by her OB doctor to come to the ER Related Data Home Medications ?Medication ?Instructions ?Recorded ?Confirmed aspirin 81 mg tablet,delayed mg 04/06/25 release insulin lispro 100 unit/mL 04/06/25 subcutaneous solution ondansetron 4 mg disintegrating mg 04/06/25 tablet Allergies Allergy/AdvReac Type Severity Reaction Status Date / Time amoxicillin Allergy Severe edema Verified 04/06/25 07:46 Opioid HPI Opioid Management Most Recent Opioid Data: Ur Phencyclidine Scrn, (NEGATIVE) Negative 01/04/25, 10:03 Review of Systems ROS Status of ROS 10 or more systems reviewed and unremarkable except as noted in history and below PFSH PFS Medical History (Updated 04/06/25 @ 14:18 by Estephania Manjarrez MD) Type 1 diabetes mellitus with complication, with custodial current use of insulin pump ?E10.8 - Type 1 diabetes mellitus with unspecified complications (ICD-10) ?Z96.41 - Presence of insulin pump (external) (internal) (ICD-10) Social History Little interest or pleasure in doing things: not at all Feeling down, depressed, or hopeless: not at all Exam Narrative Exam Narrative: Nurses notes and vital signs reviewed and patient is not hypoxic. General: Well-appearing and in no apparent distress. Skin: Warm, dry, no pallor noted. No rash. Head: Normocephalic, atraumatic. Neck: Supple, non-tender. Eye: Pupils are equal, round and EOMI. No scleral icterus. Ears, Nose, Mouth, and Throat: TM are clear, no nasal mucosal hypertrophy. Oral mucosa is moist, no posterior oropharynx erythema, uvula is mid-line Cardiovascular: Regular Rate and Rhythm without murmur, gallop or rub. Respiratory: No accessory muscle use or respiratory distress. Lungs are clear to auscultation, no wheezing, rales or rhonchi Chest Wall: no tenderness Back: No midline thoracic or lumbar vertebral tenderness. No CVA tenderness Musculoskeletal: normal ROM, no calf or popliteal tenderness, no lower extremity edema/swelling GI: Abdomen is soft, non-distended. Normal bowel sounds. No masses appreciated. No tenderness to palpation. No rebound, guarding, or rigidity noted. Neurological: A&O x4. No cranial nerve dysfunction observed. No truncal ataxia. Moves all extremities. Sensation intact. Psychiatric: Cooperative and interactive. Normal mood and affect. Constitutional Vital Signs, click to edit/add: Last Vital Signs Pulse 78 04/06/25 14:33 Resp 15 04/06/25 14:33 BP 112/75 04/06/25 14:33 Pulse Ox 97 04/06/25 14:33 O2 Del Method Room Air 04/06/25 14:33 Course Vital Signs Vital signs: Vital Signs Pulse Rate 92 H 04/06/25 07:41 Respiratory Rate 16 04/06/25 07:41 Blood Pressure 112/80 04/06/25 07:41 Pulse Oximetry 97 04/06/25 07:41 Oxygen Delivery Method Room Air 04/06/25 07:41 Pulse Rate 78 04/06/25 14:33 Respiratory Rate 15 04/06/25 14:33 Blood Pressure 112/75 04/06/25 14:33 Pulse Oximetry 97 04/06/25 14:33 Oxygen Delivery Method Room Air 04/06/25 14:33 Medical Decision Making MDM Narrative Medical decision making narrative: The patient EKG showing sinus rhythm with a heart rate of [address] elevation or depression Blood workup showed no DKA picture there was no anion gap and the patient blood sugar was 215 initially and is responded to the insulin that she already took at home to 160 2:05 hours Right now initially I did speak with the OB doctor Dr. Soni and he wanted the patient initially to be admitted but I did speak with the hospitalist the patient right now have no indication to be admitted as she just need outpatient management of her diabetes I did speak with from [facility] neck and as long as the patient right now is not showing any signs of DKA the patient can follow-up with them tomorrow morning They will make sure they contact her for further evaluation and right now the patient to continue hydration and calculating her carbohydrates and using her insulin sliding scale The patient also has some low magnesium on the blood workup with 1.6 magnesium provide with magnesium in the ER she is to increase her magnesium intake at home Lab Data Labs: Lab Results 04/06/25 04/06/25 04/06/25 Range/Units 07:49 08:15 10:07 WBC 13.0 H (4.0-11.0) 10^3/uL RBC 3.65 L (4.20-5.40) 10^6/uL Hgb 11.3 L (12.0-16.0) g/dL Hct 32.5 L (36.0-48.0) % MCV 89.0 (81.0-99.0) fL MCH 31.0 (26.7-34.0) pg MCHC 34.8 (29.9-35.2) g/dL RDW 12.8 (11.0-15.0) % Plt Count 262 (150-450) 10^3/uL MPV 10.5 (9.5-13.5) fL Neut % (Auto) 72.8 (43.0-75.0) % Lymph % (Auto) 18.3 L (20.5-60.0) % [place] % (Auto) 6.8 (1.7-12.0) % Eos % (Auto) 0.6 L (0.9-7.0) % Baso % (Auto) 0.3 (0.2-2.0) % Neut # (Auto) 9.4 H (1.4-6.5) 10^3/uL Lymph # (Auto) 2.4 (1.2-3.8) 10^3/uL [place] # (Auto) 0.9 H (0.3-0.8) 10^3/uL Eos # (Auto) 0.1 (0.0-0.7) 10^3/uL Baso # (Auto) 0.0 (0.0-0.1) 10^3/uL Abs Immat Gran (auto) 0.15 H (0.00-0.03) 10^3/uL Imm/Tot Granulo (auto) 1.2 H (0.0-0.5) % Sodium 137 (136-145) mmol/L Potassium 3.7 (3.5-5.1) mmol/L Chloride 104 (98-107) mmol/L Carbon Dioxide 25.7 (21.0-32.0) mmol/L Anion Gap 11.0 BUN 11.0 (7.0-18.0) mg/dL Creatinine 0.45 L (0.55-1.02) mg/dL Est GFR ( Amer) >60 (>=60 mL/min/1.73m^2) Est GFR (Non-Af Amer) >60 (>=60 mL/min/1.73m^2) BUN/Creatinine Ratio 24.4 Glucose 211 H (74-106) mg/dL Calcium 8.5 (8.5-10.1) mg/dL Phosphorus 3.5 (2.6-4.7) mg/dL Magnesium 1.6 L (1.8-2.4) mg/dL Total Bilirubin 0.1 L (0.2-1.0) mg/dL AST 20 (15-37) U/L ALT 34 (14-59) U/L Alkaline Phosphatase 73 (46-116) U/L Total Protein 6.3 L (6.4-8.2) g/dL Albumin 2.4 L (3.4-5.0) g/dL Globulin 3.9 g/dL Albumin/Globulin Ratio 0.6 POC Glucose 215 H 165 H (74-106) mg/dL 04/06/25 Range/Units 13:43 WBC (4.0-11.0) 10^3/uL RBC (4.20-5.40) 10^6/uL Hgb (12.0-16.0) g/dL Hct (36.0-48.0) % MCV (81.0-99.0) fL MCH (26.7-34.0) pg MCHC (29.9-35.2) g/dL RDW (11.0-15.0) % Plt Count (150-450) 10^3/uL MPV (9.5-13.5) fL Neut % (Auto) (43.0-75.0) % Lymph % (Auto) (20.5-60.0) % [place] % (Auto) (1.7-12.0) % Eos % (Auto) (0.9-7.0) % Baso % (Auto) (0.2-2.0) % Neut # (Auto) (1.4-6.5) 10^3/uL Lymph # (Auto) (1.2-3.8) 10^3/uL [place] # (Auto) (0.3-0.8) 10^3/uL Eos # (Auto) (0.0-0.7) 10^3/uL Baso # (Auto) (0.0-0.1) 10^3/uL Abs Immat Gran (auto) (0.00-0.03) 10^3/uL Imm/Tot Granulo (auto) (0.0-0.5) % Sodium (136-145) mmol/L Potassium (3.5-5.1) mmol/L Chloride (98-107) mmol/L Carbon Dioxide (21.0-32.0) mmol/L Anion Gap BUN (7.0-18.0) mg/dL Creatinine (0.55-1.02) mg/dL Est GFR ( Amer) (>=60 mL/min/1.73m^2) Est GFR (Non-Af Amer) (>=60 mL/min/1.73m^2) BUN/Creatinine Ratio Glucose (74-106) mg/dL Calcium (8.5-10.1) mg/dL Phosphorus (2.6-4.7) mg/dL Magnesium (1.8-2.4) mg/dL Total Bilirubin (0.2-1.0) mg/dL AST (15-37) U/L ALT (14-59) U/L Alkaline Phosphatase (46-116) U/L Total Protein (6.4-8.2) g/dL Albumin (3.4-5.0) g/dL Globulin g/dL Albumin/Globulin Ratio POC Glucose 206 H (74-106) mg/dL Discharge Plan Discharge Chief Complaint: Recheck/Abnormal Lab/Rx Clinical Impression: Hyperglycemia, Hypomagnesemia Patient Disposition: Home, Self-Care Time of Disposition Decision: 14:18 Condition: Good Prescriptions / Home Meds: No Action aspirin 81 mg tablet,delayed release (DR/EC) insulin lispro 100 unit/mL solution ondansetron 4 mg tablet,disintegrating Print Language: Setswana Instructions: Diabetic Hyperglycemia (ED) Referrals: JOAQUÍN DILLON [Primary Care Provider, Unknown] - 1 week Discharge Date/Time: 04/06/25 14:37
[2025-04-06 08:45] LABS: Alanine Aminotransferase 34 U/L (14-59); Albumin Globulin Ratio 0.6; Albumin Level 2.4 g/dL (3.4-5.0); Alkaline Phosphatase 73 U/L (46-116); Anion Gap 11.0; Aspartate Amino Transferase 20 U/L (15-37); Blood Urea Nitrogen 11.0 mg/dL (7.0-18.0); Calcium 8.5 mg/dL (8.5-10.1); Carbon Dioxide 25.7 mmol/L (21.0-32.0); Chloride 104 mmol/L (98-107); Estimated GFR (African America >60 (>=60 mL/min/1.73m^2); Estimated GFR (Non-African Ame >60 (>=60 mL/min/1.73m^2); Globulin 3.9 g/dL; Glucose 211 mg/dL (74-106); Magnesium 1.6 mg/dL (1.8-2.4); Potassium 3.7 mmol/L (3.5-5.1); Sodium 137 mmol/L (136-145); Total Protein 6.3 g/dL (6.4-8.2)
[2025-04-06 10:11] VITALS: BP 112/67; PULSE 86; O2SAT 97
[2025-04-06 13:25] VITALS: BP 101/63; PULSE 80; O2SAT 97
[2025-04-06] MEDS: MAGNESIUM OXIDE 400 MG TABLET PO (14:21)
[2025-04-06 14:33] VITALS: BP 112/75; PULSE 78; O2SAT 97
== END 2025-04-06 14:37 | disposition home or self-care (01) ==
PROVIDERS: Emergency Provider Emergency Medicine; PCP Family Medicine
DX: O99.282 Endocrine, nutritional and metabolic diseases complicating pregnancy, second trimester (principal); O24.012 Pre-existing type 1 diabetes mellitus, in pregnancy, second trimester; E10.65 Type 1 diabetes mellitus with hyperglycemia; Z3A.22 22 weeks gestation of pregnancy; Z96.41 Presence of insulin pump (external) (internal); Z79.4 Long term (current) use of insulin; E83.42 Hypomagnesemia
CPT/HCPCS: 36415; 80053; 82948; 83525; 83735; 84100; 85025; 93005; 99284

== ENCOUNTER 2025-04-13 18:25 | Observation (INO) | payer OTHER, BC, SELFPAY ==
--- OUTSIDE RECORDS SUMMARY | 2023-12-31 09:00 | XMS_ITS | Continuity of Care Document ---
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 Role Phone Edna Rodriguez Unavailable Unavailable [...] TOBACCO NON-USER [employer] [facility] [employer] [facility] [place] Dis Dec Resin Composite 1s; Posterior Prophylaxis Adult Moderate Risk [employer] [facility] [employer] [facility] [place] Dis Dec Oral Hygiene Instruction PSYTX PT&/FAMILY 60 MINUTES PSYTX PT&/FAMILY 60 MINUTES OFFICE/OUTPATIENT VISIT, EST HG A1C LEVEL < 7.0% TOBACCO NON-USER PSYTX PT&/FAMILY 60 MINUTES OFFICE/OUTPATIENT VISIT, EST MED LIST DOCD IN [facility] RVW MEDS BY RX/DR IN [facility] TOBACCO NON-USER PSYTX PT&/FAMILY 60 MINUTES Intraoral-complete Series (bw) Comp Oral Eval New/estab Patient 2023 Oral Hygiene Instruction PSYTX PT&/FAMILY 60 MINUTES OFFICE/OUTPATIENT VISIT, EST DIAST BP 80-89 MM HG SYST BP < 130 MM HG MED LIST DOCD IN [facility] RVW MEDS BY RX/DR IN [facility] TOBACCO NON-USER PSYTX PT&/FAMILY 60 MINUTES PSYTX PT&/FAMILY 60 MINUTES Advance Directives Directive Yes / No Effective Date File Name No Information Encounters Encounter Description Practice Location Reason(s) For Visit Diagnoses Date Provider Providers Copied on Encounter PSYTX PT&/FAMILY 60 MINUTES [facility], [address] [place] [address], [id number] , [place] [phone] [facility] Psychosis, unspecified psychosis typePTSD (post-traumatic stress disorder)Body mass index [BMI] 27.0-27.9, adultVitamin D deficiency, unspecified 4 Olman Bishop. [address] [place] [address], [address], [place]. [phone] OFFICE/OUTPA TIENT VISIT, [facility], [address] [place] [address], [id number] , [place] tel:[phone] [facility] Telehealth (chief complaint) Psychosis, unspecified psychosis typePTSD (post-traumatic stress disorder)Body mass index [BMI] 27.0-27.9, adultVitamin D deficiency, unspecified 4 Bellstephen Martinodith. [address] [place], [address], [place]. tel: [phone] [facility], [address] [place] [address], [id number] , [place] tel: [phone] Dental Clinic fill (chief complaint) Encounter for screening for dental disorders 4 Jonh Parr. [address] [place], [place], [id number] , [place]. tel: [phone] [facility], [address] [place] [address], [id number] , [place] tel: [phone] [facility] [place] (chief complaint) Encounter for screening for dental disorders 4 Jonh Parr. [address] [place], [place], [id number] , [place]. tel: [phone] PSYTX PT&/FAMILY 60 MINUTES [facility], [address] [place] [address], [id number] , [place] tel: [phone] [facility] Psychosis, unspecified psychosis typePTSD (post-traumatic stress disorder)Body mass index [BMI] 27.0-27.9, adultVitamin D deficiency, unspecified 4 Olman JENA Edna. [address] [place], [address], [place]. tel: [phone] PSYTX PT&/FAMILY 60 MINUTES [facility], [address] [place] [address], [id number] , [place] tel: [phone] [facility] Psychosis, unspecified psychosis typePTSD (post-traumatic stress disorder)Body mass index [BMI] 27.0-27.9, adultVitamin D deficiency, unspecified 4 Olman Snydercy. [address] [place] [address], [address], [place]. tel: [phone] OFFICE/OUTPA TIENT VISIT, EST [facility], [address] [place] [address], [id number] , [place] tel: [phone] [facility] (chief complaint) Psychosis, unspecified psychosis typePTSD (post-traumatic stress disorder)Body mass index [BMI] 27.0-27.9, adultVitamin D deficiency, unspecified 4 [facility]. [address] [place] [address], [address], . tel: [phone] PSYTX PT&/FAMILY 60 MINUTES [facility], [address] [place] [address], [id number] , [place] tel: [phone] [facility] Psychosis, unspecified psychosis typePTSD (post-traumatic stress disorder)Body mass index [BMI] 27.0-27.9, adult 4 Olman Bishop. [address] [place] [address], [address], [place]. tel: [phone] OFFICE/OUTPA TIENT VISIT, [facility], [address] [place] [address], [id number] , [place] tel: [phone] [facility] Telehealth (chief complaint) Psychosis, unspecified psychosis typePTSD (post-traumatic stress disorder)Body mass index [BMI] 27.0-27.9, adult 4 [facility]. [address] [place] [address], [address], [place]. tel: [phone] PSYTX PT&/FAMILY 60 MINUTES [facility], [address] [place] [address], [id number] , [place] tel: [phone] [facility] Psychosis, unspecified psychosis typePTSD (post-traumatic stress disorder)Need for hepatitis C screening testScreening for diabetes mellitusScreening for endocrine disorderScreening for lipid disordersScreening for HIV (human immunodeficiency virus)Body mass index [BMI] 26.0-26.9, adultBody mass index [BMI] 27.0-27.9, adult 4 Olman Bishop. [address] [place] [address], [address], [place]. tel: [phone] [facility], [address] [place] [address], [id number] , [place] tel: [phone] Dental Clinic DN (chief complaint) Body mass index [BMI] 27.0-27.9, adultEncounter for screening for dental disorders 4 Jonh Baumannal. [address] [place], [place], [id number] , [place]. tel: [phone] [facility], [address] [place] [address], [id number] , [place] tel: [phone] [facility] Encounter for routine general gynecological examination without abnormal findingEncounter for gynecological examination (general) (routine) without abnormal findings 4 Ray Hurley. [address] [place] [address], [address], [place]. tel: [phone] PSYTX PT&/FAMILY 60 MINUTES [facility], [address] [place] [address], [id number] , [place] tel: [phone] [facility] Psychosis, unspecified psychosis typePTSD (post-traumatic stress disorder)Need for hepatitis C screening testScreening for diabetes mellitusScreening for endocrine disorderScreening for lipid disordersScreening for HIV (human immunodeficiency virus)Body mass index [BMI] 26.0-26.9, adultBody mass index [BMI] 27.0-27.9, adult 4 Olman Bishop. [address] [place] [address], [address], [place]. tel: [phone] OFFICE/OUTPA TIENT VISIT, EST [facility], [address] [place] [address], [id number] , [place] tel: [phone] [facility] Behavioral health (chief complaint) Need for hepatitis C screening testScreening for diabetes mellitusScreening for endocrine disorderScreening for lipid disordersScreening for HIV (human immunodeficiency virus)Body mass index [BMI] 26.0-26.9, adultPsychosis, unspecified psychosis typePTSD (post-traumatic stress disorder)Body mass index [BMI] 27.0-27.9, adult 4 Ray Hurley. [address] [place] [address], [id number], [place]. tel: [phone] PSYTX PT&/FAMILY 60 MINUTES [facility], [address] [place], [place], [id number] , [place] tel: [phone] [facility] Schizophrenia, unspecified 4 Olman Bishop. [address] [place], [address], [place]. tel: [phone] PSYTX PT&/FAMILY 60 MINUTES [facility], [address] [place], [place], [id number] , [place] tel: [phone] [facility] Schizophrenia, unspecified 4 Olman Bishop. [address] [place], [address], [place]. tel: [phone] Family History Family Member Type Diagnosis Age [...] Of Treatment Date Type Action Status Goal Tdap Vaccine. Due on 2023 due [...] Goal Lipid panel. Due on due Goal Hepatitis C scre [...] due Goal RLP. Due on due Goal Lipid panel. Due [...] Goal Influenza vaccine. Due on due Goal Hep A. Due [...] Depression scree seth. Due on due Goal Depression scree seth. [...] Lifestyle education regardin g diet completed Goal Hepatitis C scre ening. Due [...] due Goal PRAPARE ASSESSMENT. Due on due Future Order: Lab Order HIV 1/0/ 2 Ag/Ab with Reflex ([id number]), Ordered on: Ordered Future Order: Lab Order Hemoglob in A1c ([id number]), Ordered on: Ordered Future Order: Lab Order Lipid Pa jose alejandro ([id number]), Ordered on: Ordered Future Order: Lab Order TSH Rfx on Abnormal to Free T4 ([id number]), Ordered on: Ordered Future Order: Lab Order Vitamin D, 25-Hydroxy ([id number]), Ordered on: Ordered Future Order: Lab Order Vitamin B12 and Folate ([id number]), Ordered on: Ordered Future Order: Lab Order Ammonia, Plasma ([id number]), Ordered on: Ordered Future Order: Lab Order CBC With Differential/Platelet ([id number]), Ordered on: Ordered Future Order: Lab Order Comp. Me tabolic Panel (14) ([id number]), Ordered on: Ordered Future Order: Lab Order Abram gleason Drug Analysis, Ur ([id number]), Ordered on: Ordered Future Order: Lab Order HCV Anti body W/ Reflex To Quantitative Real Time Pcr ([id number]), Ordered on: Ordered History Of Present Illness [...] on Pap. [facility] in [place]. Pt denies homicidal thoughts. Admits to occasional suicidal thoughts but denies a plan. Pt has not taken any medications in the past for mental health. BRANDT Agrawal Functional Status Date Functional Assessmen t No Information Instructions Date Instruction Additional Infor wili Dietary management e ducation, guidance, and counseling [...]
--- OUTSIDE RECORDS SUMMARY | 2025-03-23 07:50 | XMS_ITS | Encounter Summary ---
Author Organization [facility] Address [address] [place] [address] Care Team Providers Care Windows Server Support Technician Name Role Phone Dru Rodriguez DO Primary Care Provider [phone] Dru Rodriguez DO Unavailable [phone] Reason for Visit * ReasonCommentsRoutine Visit Encounter Details DateTypeDepartmentCare Team (Latest Contact Info)Qvuiaudswcy57/14/2025 8:50 AM EDTRoutine [facility] [address] [place] [address] Kolotn Cao DO [address] [facility] Shayne [place], [facility] Second trimester ([facility]); 20 weeks gestation of ([facility]); Type 1 diabetes mellitus during , antepartum ([facility]) Social History Tobacco UseTypesPacks/DayYears UsedDateSmoking Tobacco: NeverSmokeless Tobacco: NeverAlcohol UseStandard Drinks/WeekCommentsNot Currently0 (1 standard drink = 0.6 oz pure alcohol)SociallyHumiliation, Afraid, Rape, and Kick questionnaire AnswerDate RecordedWithin the last year, have you been afraid of your partner or ex-partner?No03/11/2023Within the last year, have you been humiliated or emotionally abused in other ways by your partner or ex-partner?No03/11/2023 Within the last year, have you been kicked, hit, slapped, or otherwise physically hurt by your partner or ex-partner?No03/11/2023Within the last year, have you been raped or forced to have any kind of sexual activity by your part ner or ex-partner?No03/11/2023Social Connection and Isolation PanelAnswerDate RecordedIn a typical week, how many times do you talk on the phone with family, friends, or neighbors?More than three times a week03/11/2023How often do you get together with friends or relatives?Twice a week03/11/2023How often do you attend methodist or jainism services?1 to 4 times per year03/11/2023o you belong to any clubs or organizations such as methodist groups, unions, [employer] or athletic laura ups, or school groups?No03/11/2023How often do you attend meetings of the clubs or organizations you belong to?Never03/11/2023re you , , , , never , or living with a partner?Hbyngap1103/11/2023 AUDIT-CAnswerDate RecordedQ1: How often do you have a drink containing alcohol? Monthly or less03/11/2023Q2: How many drinks containing alcohol do you have on a typical day when you are drinking?3 or Q3: How often do you have six or more drinks on one occasion?Less than bwdqgnr7403/11/2023Overall Financial Resource Strain (CARDIA)AnswerDate RecordedHow hard is it for you to pay for the very basics like food, housing, medical care, and heating?Somewhat hard 03/11/2023HQ-2AnswerDate RecordedPatient Health Questionnaire-2 Score0 03/25/2025[facility] [place] [facility] Occup[facility] Health - Occupational Stress QuestionnaireAnswerDate RecordedDo you feel stress - tense, restless, nervous, or anxious, or unable to sleep at night because yourmind is troubled all the time - these days?Very much03/11/2023Exercise Vital SignAnswerDate RecordedOn average, how many days per week do you engage in moderate to strenuous exercise (like a brisk walk)?4 days03/11/2023On average, how many minutes do you engage in exercise at this level?80 min03/11/2023Hunger Vital SignAnswerDate Recorded Within the past 12 months, you worried that your food would run out before you got the money to buymore.Sometimes true03/11/2023Within the past 12 months, the food you bought just didn't last and you didn't have money to get more.Never true03/11/2023RAPARE - TransportationAnswerDate RecordedIn the past 12 months, has lack of transportation kept you from medical appointments or from getting medications?No03/11/2023In the past 12 months, has lack of transportation kept you from meetings, work, or from getting things needed for daily living?No 03/11/2023Housing Stability Vital SignAnswerDate RecordedIn the last 12 months, was there a time when you were not able to pay the mortgage or rent on time?No 03/11/2023In the last 12 months, how many places have you lived?In the last 12 months, was there a time when you did not have a steady place to sleep or slept in [facility] (including now)?No03/11/2023Estimated Date of WmwswagcKoavlhxmWmx59/27/2026ased on last menstrual period of 10/30/2024Sex and Gender InformationValueDate RecordedSex Assigned at JngajUvoztn09/01/2023 1:10 PM EDTLegal GtiKxhbwa60/15/2023 6:51 PM EDTGender TynzepwoTomkcs49/01/2023 1:10 PM EDTSexual TesfvbmgrrgPofzefzm36/01/2023 1:10 PM EDTdocumented as of this encounter Last Filed Vital Signs Vital SignReadingTime TakenCommentsBlood Lmysuigt244/6203/23/2025 8:56 AM EDT Pulse--Temperature--Respiratory Rate--Oxygen Saturation--Inhaled Oxygen Concentration--Rzhllu41.3 kg (152 lb 12.8 oz)03/23/2025 8:56 AM EDTHeight--Body Mass Index31.9404 3:24 PM EDTdocumented in this encounter Functional Status * Over the past 2 weeks, how often have you been bothered by any of the following problems?QuestionAnswerDate of AssessmentAuthorLittle interest or pleasure in doing thingsNot at all03/25/2025 8:57 AM Lesa Emanuel LPNFeeling down, depressed, or hopelessNot at all03/25/2025 8:57 AM Lesa Trevino LPNPatient Health Questionnaire-2 Oxtgw973 8:57 AM Lesa Emanuel LPN documented as of this encounter Progress Notes * Angela Meyer LPN - 03/23/2025 8:50 AM EDT Reason for Appointment: Patient ID: Barron Shaw is a 25 y.o. female who presents for Routine Visit Patient presents today for Return OB appointment. MEDICATIONS Current Outpatient Medications Medication Instructions Continuous Blood Gluc Transmit (Dexcom G6 transmitter) misc 1 each, Subcutaneous, Every 3 months, Use as instructed HumaLOG 100 UNIT/ML solution USE PER INSULIN PUMP INSTRUCTION MAX OF 80 UNITS DAILY Insulin Disposable Pump (Omnipod 5 [id number] Pods Gen 5) misc 1 each, Subcutaneous, Every 3 days, CHANGE POD EVERY 3 DAYS DIRECTED insulin glargine (Lantus SoloStar) 100 UNIT/ML pen inject 22 units subcutaneously once daily Vit w/Ov-Aadouujoi-GF (PNV PO) Take by mouth ALLERGIES Allergies[1] PROBLEMS Active Ambulatory Problems Diagnosis Date Noted Bulging lumbar disc 11/08/2022 Chronic fatigue 11/08/2022 Lumbago with sciatica, left side 11/08/2022 Sciatica 11/08/2022 Celiac disease in pediatric patient (HCC) 05/23/2016 Generalized anxiety disorder 01/01/2017 Mild intermittent asthma ([facility]) 05/23/2016 Panic disorder without agoraphobia 01/01/2017 Biliary dyskinesia 11/08/2022 Type 1 diabetes mellitus without complications ([facility]) 02/04/2023 Type 1 diabetes mellitus with hypoglycemia and without coma ([facility]) 02/04/2023 PTSD (post-traumatic stress disorder) 09/06/2023 Mixed obsessional thoughts and acts 09/13/2023 Diabetes type 1, controlled ([facility]) 01/25/2011 Hypoglycemia associated with diabetes (HCC) 03/09/2025 Resolved Ambulatory Problems Diagnosis Date Noted Blood blister 11/08/2022 Diabetic ketoacidosis associated with type 1 diabetes mellitus (HCC) 02/22/2017 Hypoglycemia due to type 1 diabetes mellitus (HCC) 11/08/2022 Other chronic pain 11/08/2022 Type 1 diabetes mellitus with ketoacidosis without coma (HCC) 08/01/2016 Acute renal insufficiency 02/18/2017 Mechanical breakdown of insulin pump 02/18/2017 Right upper quadrant pain 11/08/2022 Chronic cholecystitis 11/29/2022 Past Medical History: Diagnosis Date Awareness under anesthesia 2014 covid and DKA 05/2021 Exercise-induced asthma (HCC) Lactose intolerance Postoperative wound infection Type 1 diabetes mellitus without complication (HCC) HISTORY PAST MEDICAL HISTORY SOCIAL HISTORY Medical History[2] Social History Tobacco Use Smoking status: Never Smokeless tobacco: Never Vaping Use Vaping status: Never Used Substance Use Topics Alcohol use: Not Currently Comment: Socially Drug use: Yes Frequency: 2.0 times per week Types: Marijuana Comment: Has not used any drugs other than those for medical reasons for the past 12 months FAMILY HISTORY Family History[3] SURGICAL HISTORY Surgical History[4] REVIEW OF SYSTEMS Review of Systems: Review of Systems Constitutional: Negative. HENT: Negative. Eyes: Negative. Respiratory: Negative. Cardiovascular: Negative. Gastrointestinal: Negative. Genitourinary: Negative. Musculoskeletal: Negative. Skin: Negative. Neurological: Negative. All other systems reviewed and are negative. Hematological: Negative. Endocrine: Negative. Allergic/Immunologic: Negative. OBJECTIVE Objective: Physical Exam Constitutional: Appearance: Normal appearance. She is well-developed. Cardiovascular: Rate and Rhythm: Normal rate and regular rhythm. Pulmonary: Effort: Pulmonary effort is normal. Breath sounds: Normal breath sounds. Abdominal: General: Bowel sounds are normal. There is no distension. Palpations: Abdomen is soft. Tenderness: There is no abdominal tenderness. There is no guarding or rebound. Musculoskeletal: General: No swelling. Normal range of motion. Right lower leg: No edema. Left lower leg: No edema. Neurological: Mental Status: She is alert and oriented to person, place, and time. Skin: General: Skin is warm and dry. Psychiatric: Mood and Affect: Mood normal. Behavior: Behavior normal. Vitals and nursing note reviewed. Exam conducted with a property specialist present. Vitals: Estimated body mass index is 31.94 kg/m?? as calculated from the following: Height as of 09/17/24: 4' 10 . Weight as of this encounter: 152 lb 12.8 oz. BP: 118/62 Patient's last menstrual period was 10/30/2024. ASSESSMENT & PLAN ICD-10-CM 1. Second trimester ([facility]) Z34.92 2. 20 weeks gestation of ([facility]) Z3A.20 POCT urinalysis dipstick manually resulted 3. Type 1 diabetes mellitus during , antepartum ([facility]) O24.019 Patient presents today for a routine obstetrics appointment. Patient is currently 20w4d with a Estimated Date of Delivery: 08/06/25. Discussed type I diabetes with pt in . Given dental note. Pt to return in 2 weeks for scheduled OB appt. Documented by Angela Meyer LPN on behalf of: Kolton Cao DO [1] Allergies Allergen Reactions Amoxicillin Anaphylaxis Mouth irritation [2] Past Medical History: Diagnosis Date Awareness under anesthesia 2014 Woke up after administration on way to procedure Chronic cholecystitis 11/29/2022 covid and DKA 05/2021 Diabetic ketoacidosis associated with type 1 diabetes mellitus (HCC) 02/22/2017 Exercise-induced asthma (HCC) Lactose intolerance Postoperative wound infection Type 1 diabetes mellitus without complication (HCC) [3] Family History Problem Relation Name Age of Onset Drug abuse Mother Mary Melendez Asthma Father Bryan Melendez Arthritis Father Bryan Melendez Stroke Paternal Grandfather Cancer Other Stroke Other Stroke Maternal Grandmother Jackie Ramirez Diabetes Sister Pj Melendez [4] Past Surgical History: Procedure Laterality Date CHOLECYSTECTOMY 11/2022 COLONOSCOPY 2016 normal EGD 2013 normal documented in this encounter Plan of Treatment DateTypeDepartmentCare Team (Latest Contact Info)Ahxcihftkku03/12/2025 10:50 AM ESTRoutine [facility] [address] [place] [address] Katharine Cummins PA [address] [address] documented as of this encounter Goals GoalPatient Goal TypeAssociated ProblemsRecent ProgressPatient-Stated?Author Reminders Care PlanOB RemindersNoOpen Scheduling, Backgrounddocumented as of this encounter Procedures Procedure NamePriorityDate/TimeAssociated DiagnosisCommentsPOCT URINALYSIS SYHFYUMHWeiztmv41/14/2025 9:03 AM EDT 20 weeks gestation of ([facility]) documented in this encounter Results * (ABNORMAL) POCT urinalysis dipstick manually resulted (03/23/2025 9:03 AM EDT) ComponentValueRef RangeTest MethodAnalysis TimePerformed AtPathologist SignatureColor, UAYellowClarity, UAClearGlucose, UANegativeNegative - 2000(110) ++++ mg/dLBilirubin, UANegativeNegative - 4(70) +++ mg/dLKetones, UA NegativeNegative - 160(16) ++++ mg/dLSpec Grav, UA1.0151 - 1.03Blood, UA NegativeNegative - 50 Guy/mcLpH, UA7.05 - 9Protein, UANegativeNegative - 2000(20) ++++ mg/dLUrobilinogen, UA2.00.2 - 12 mg/dLLeukocytes, UA3+Negative - 500+++ Danny/mcLNitrite, UANegativeNegative - PositiveSpecimen (Source) Anatomical Location / LateralityCollection Method / VolumeCollection Time Received PaohYxnrq19/14/2025 9:03 AM EDT Narrative Authorizing ProviderResult TypeResult StatusCorey Kiley DOPOINT OF CARE TEST ENTER/EDIT ORDERABLESFinal Result documented in this encounter Visit Diagnoses Diagnosis Second trimester ([facility]) state, incidental 20 weeks gestation of ([facility]) Type 1 diabetes mellitus during , antepartum ([facility]) documented in this encounter Additional Health Concerns Active ProblemsNoted DateDiagnosed DateOB Sdosmzxok26/24/2025 documented as of this encounter Care Teams Team MemberRelationshipSpecialtyStart DateEnd Date Dru Rodriguez DO [address] [place] [address] PCP - GeneralFandly Medicine10/22/22 Dru Rodriguez DO [address] [facility] [address] [address] PCP - [facility]03/10/2312documented as of this encounter
--- OUTSIDE RECORDS SUMMARY | 2025-04-08 07:22 | XMS_ITS | Continuity of Care Document ---
Author Organization [facility] Address [address] [place] [address] Phone Care Team Providers Care Slp Teacher Name Role Phone Dru Rodriguez DO Primary Care Provider Carissa Queen APRN Attending Provider Care Teams Patient Care Team Team Status: Active Member Role/Relationship Status Dates Dru Rodriguez DO Primary Care Provider Active Visit Care Team Team Status: Inactive Member Role/Relationship Status Dates Dru Rodriguez DO Primary Care Provider Active Start: March 09, 2025 End: March 09, 2025Sofi Oneill ProviderActiveStart: March 09, 2025 End: March 09, 2025 Chief Complaint and Reason for Visit Chief Complaint Admit Date 12 week March 09, 2025 8:08am Reason for Visit Admit Date Dietary counseling and surveillance Sept emb2024 8:08am Hyperlipidemia, unspecified March 092024 8:08am Insulin pump in place March 09 8:08am USP (current) use of insulin Sept2024 8:08am March 09, 2025 8:08am Type 1 diabetes mellitus with hyperglyce kenna March 09, 2025 8:08am Vitamin D deficiency, unspecified Septem 2024 8:08am Allergies, Adverse Reactions, Alerts Allergen Type Severity Reaction Last Updated Verified Status amoxicillin Allergy Unknown Anaphylaxis, swelling of the mouth March 09, 2025 7:17am Yes Active Social History Smoking Status Status Start Date End Date Date of Observa tion Never smoked tobacco (finding) March 06, 2025 9:19pm Observation Status Observation Response Date of Response Legal Sex Female (finding) Sex Assigned At BirthFemaleSeptember 1999Pregnancy StatusYSeptember 2024 Family History Relationship Condition Age at Onset Recorded Date/T lion father Asthma Unknown sisterDiabetes mellitusUnknownpaternal grandfatherMalignant neoplasmUnknown Problems Active Problems Problem Diagnosis/Recorded Date Onset Date Status 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 December 16, 2024 11:03am Unknown Active Insulin pump in placeJuly 2024 11:03amUnknownActiveType 1 diabetes mellitus with hyperglycemiaApril 2024 1:34pmUnknownActiveDietary counseling and surveillanceApril 2024 2:31pmUnknownActiveHyperlipidemia, unspecifiedApril 2024 11:55amUnknownActivePregnancyJuly 2024 11:02amUnknownActive Vitamin D deficiency, unspecifiedApril 2024 11:55amUnknownActiveInsulin pump mechanical complicationJuly 2024 3:31pmUnknownActiveInactive/Resolved Problems Problem Diagnosis/Recorded Date Onset Date Status C omments UTI (urinary tract infection) September 23, 2021 11:23pm Unknown Resolved Problem List clean-up per request of Phys. EHR Cmte DKA (diabetic ketoacidosis) September 23, 2021 11:23pm Unknown Resolved Problem List clean-up per request of Phys. EHR Cmte Acute hyperglycemia June 11, 2021 12:08am Unknown R esolved Problem List clean-up per request of Phys. EHR Cmte Cholecystitis November 19, 2022 8:15am Unknown Resolved Problem List clean-up per request of Phys. EHR Cmte Nausea and vomiting September 23, 2021 11:23pm Unknown Re solved Problem List clean-up per request of Phys. EHR Cmte Hypoglycemia associated with diabetes March 06, 2025 10:04pm Unknown Resolved Medications Medication Status Dose Units Route Directions Qty Days Refills S tart Date Stop Date End Date Reason(s) Instructions Adherence Cholecalciferol (Vitamin D3) 1,250 mcg (50,000 unit) capsule Discontinued 1250 MCG PO every week 8 56 0 October 27, 2024 11:00pm March 09, 2025 7:18amVitamin D deficiency Vitamin D deficiency, unspecifiedFollow with heyf-enp-dmfxyvb dosing 2000 units once dailyBlood-Glucose Sensor (Dexcom G6 Sensor) deviceActive0.Jagqb89Nuv2024 11:00pmType 1 diabetes mellitus with hyperglycemia Type 1 diabetes mellitus with hyperglycemiaAs directed Change every 10 days Blood-Glucose Transmitter (Dexcom G6 Transmitter) deviceActive0.Pdqaq38Imh2024 11:00pmType 1 diabetes mellitus with hyperglycemia Type 1 diabetes mellitus with hyperglycemiaAs directed Change every 90 days Insulin Lispro 100 unit/mL vwnvbtkuDbdxtyiixyjg1RFKGEWNnj as Ynlryftw305Zpzi 2024 7:44amSeptember 2024 8:06amType 1 diabetes mellitus with hyperglycemia Type 1 diabetes mellitus with hyperglycemiasubcutaneously use as directed; INJECT INSULIN SUBCUTANEOUSLY PER PUMP (MAX DAILY DOSE 80 UNITS)Insulin Pump Cart,Auto,Bt,G6/7 (Omnipod 5 G6-G7 Pods (Gen 5)) cartridgeDiscontinued0.Ikplu326 January 21, 2025 3:31pmSeptember 2024 8:06amType 1 diabetes mellitus with hyperglycemia Type 1 diabetes mellitus with hyperglycemiaUse to deliver insulin change every 3 daysBlood-Glucose Sensor (Dexcom G7 Sensor) deviceActive0.Ybmoi78Xhqeqg 2024 3:31pmType 1 diabetes mellitus with hyperglycemia Type 1 diabetes mellitus with hyperglycemiaUse with Omnipod 5 to manage BG change every 10 daysPromethazine 25 mg XxxykpPskwyazrjgki31SZNCQ9C as needed for Htjkzt091Fwdoolx 2021 12:00amApril 2021 8:03pmInsulin Lispro 100 unit/mL solutionDiscontinuedApril 2021 11:00pmApril 2024 1:33pm adjusted via pumpMultivitamin OjxbfjuOgmnaqjdkpcn5LNMFTEgpkhVrvfa 2021 11:00pmSeptember 2024 7:19amZinc Tablet,KzfxfyxpZuhzxyeutdiw3XKXXRDnwrb September 23, 2021 11:00pmApril 2024 1:33pmMecobalamin (Vitamin B12) (B12 Active) 1,000 mcg Tablet,ChewableDiscontinuedMCGPODailyApril 2021 11:00pm August 15, 2022 10:34amLevofloxacin 750 mg mxeiyzWqqncbipxpij006OWNRRxjqh87Fcvwt 2021 11:00pmMarch 2022 10:35amInsulin Lispro 100 unit/mL solution Jkttsdddpyzc1rojfkvj scale doseCNTSUBQINFUse as DirectedApr2024 1:32pm October 14, 2024 9:59amadjusted via pumpGabapentin 100 mg jkuzyvcBpbtufvegini978YB PODaily at 0730, 1530, 2330[facility] 2022 12:00amJune 2022 10:37amFerrous Sulfate (Ferosul) 325 mg (65 mg iron) sgfirzBgqsnogixtad712TWCZVldqoRbziy 8th, 2023 12:00amApril 2024 1:31pmTramadol 50 mg jdevgdPmtgpipxxzsv57MSMSZ3F as needed for tnet6500Vmye 2022 11:00pmJune 2022 10:38amCholecystitis Cholecystitis, unspecifiedTramadol 50 mg hnuoouZxsturunhfao37FLIRQ6A as needed for hdyt4247Adjr 2022 11:00pmApril 2024 1:33pmCholecystitis Cholecystitis, unspecifiedBlood-Glucose Meter (True Metrix Air Glucose Meter) miscDiscontinued0.RouteSeptember 15, 2024 11:00pmApril 2024 2:03pmAs directed Blood Sugar Diagnostic (True Metrix Glucose Test Strip) stripDiscontinued0.Route September 15, 2024 11:00pmApril 2024 2:03pmAs directedLancets miscDiscontinued 0.RouteApr2024 11:00pmApril 2024 2:03pmAs directedBlood Sugar Diagnostic (True Metrix Glucose Test Strip) stripDiscontinued0.Cncvr5569Aqmbh 2024 1:58pmMay 2024 9:59amDx E10.9 defer to insurance preferredAs directed test blood sugar four times dailyBlood-Glucose Meter (True Metrix Air Glucose Meter) miscActive0.Iqhth16Dmfaq 2024 2:00pmDx E10.9 defer to insurance preferredAs directed test blood sugar four times dailyLancets misc Active0.Zjuei2105Lwspk 2024 2:00pmDx E10.9 defer to insurance preferredAs directed test blood sugar four times dailyBlood Sugar Diagnostic (True Metrix Glucose Test Strip) stripActive0.Bjumy8525Cyw2024 9:53amType 1 diabetes mellitus with hyperglycemia Type 1 diabetes mellitus with hyperglycemia Dx E10.9 defer to insurance preferredAs directed test blood sugar four times dailyInsulin Lispro 100 unit/mL ovhxskwoJsikhiikphge2WRSRRYXHQRUie as Directed October 14, 2024 9:56amSeptember 2024 7:18amType 1 diabetes mellitus with hyperglycemia Type 1 diabetes mellitus with hyperglycemiavia continuous subcutaneous infusion use as directed; adjusted via pumpInsulin Lispro 100 unit/mL solution Peyxidsqndst4EJRZKEZcd as Gmzsvfkn179Ped2024 11:00pmJune 2024 7:44am Type 1 diabetes mellitus with hyperglycemia Type 1 diabetes mellitus with hyperglycemiasubcutaneously use as directed; INJECT INSULIN SUBCUTANEOUSLY PER PUMP (MAX DAILY DOSE 80 UNITS)Blood-Glucose Sensor (Dexcom G7 Sensor) deviceDiscontinued0.Jpeii19Ytc2024 11:00pm January 21, 2025 3:31pmType 1 diabetes mellitus with hyperglycemia Type 1 diabetes mellitus with hyperglycemiaUse with Omnipod 5 to manage BG change every 10 daysInsulin Pump Cart,Auto,Bt,G6/7 (Omnipod 5 G6-G7 Pods (Gen 5)) cartridgeDiscontinued0.Svwst112Cqg2024 11:00pmAugust 2024 3:31pmType 1 diabetes mellitus with hyperglycemia Type 1 diabetes mellitus with hyperglycemiaUse to deliver insulin change every 3 daysPrenatal 69-Rzvx-Aythps 9-Dha 31 mg iron- 1 mg-200 mg czwbthpFrdxdw7TAQJO DailyJuly 2024 11:00pmComplies with drug therapyPsyllium Husk (Fiber (Psyllium Husk)) 0.4 gram capsuleActive0.4GMPODailyJuly 2024 11:00pm Complies with drug therapyBlood-Glucose Sensor (Dexcom G7 Sensor) deviceActive0 .ROUTESept2024 11:00pmAs directedInsulin Lispro 100 unit/mL solution Iluyvphtqpkk5KYLKEKEmh as Wdnioijf455Oogrsegun2024 8:03amSept2024 8:07amType 1 diabetes mellitus with hyperglycemia Type 1 diabetes mellitus with hyperglycemiasubcutaneously use as directed; INJECT INSULIN SUBCUTANEOUSLY PER PUMP (MAX DAILY DOSE 100 UNITS)Insulin Pump Cart,Auto,Bt,G6/7 (Omnipod 5 G6-G7 Pods (Gen 5)) cartridgeActive0.Onuyt328 March 09, 2025 8:06amType 1 diabetes mellitus with hyperglycemia Type 1 diabetes mellitus with hyperglycemiaUse to deliver insulin change every 3 daysInsulin Lispro 100 unit/mL dzjiittjIrbkji4DGQCGIPpa as Snwlqqnm530Xpnkxrlhx2024 8:06amType 1 diabetes mellitus with hyperglycemia Type 1 diabetes mellitus with hyperglycemiasubcutaneously use as directed; INJECT INSULIN SUBCUTANEOUSLY PER PUMP (MAX DAILY DOSE 100 UNITS)Complies with drug therapy Relevant Diagnostic Tests and/or Laboratory Data Laboratory Results Test Collection Date/Time Result Date/Time Result Interpretation Reference Range Result Comment Performing Site Bedside Glucose March 09, 2025 7:16am February 7:48am 163 Vital Signs Vital Reading Result Reference Range Collection Date/Time Height 59 [in_i] March 09, 2025 7:93wkLoppna19.40 kgSept2024 7:13amHeart Rate95 /czf55-570Qyulzrvaf 30th, 2025 7:13amRespiratory rate18 /zaq89-93Peabbdwid 30th, 2025 7:13amOxygen saturation by Pulse pecndzpl45 %95-100Sept2024 7:13amBP Aknzefee219 mm[Hg]100-140Sept2024 7:13amBP Dgoegqfcb43 mm[Hg]60-100Sept2024 7:13amBMI (Body Mass Index)29.9 kg/t4Ksvaybwqe 2024 7:13am Advance Directives Advance Directive Response Recorded Date/ Time Advance Directives No August 28 025 8:42am Insurance Providers Guarantor Elizabeth Parker Address [address] [facility] [address]Ybvthpk Info.Home Phone: Coverage Status Update:2025 Payer Group Member ID Coverage Type Subscriber Relationship to Subscriber Effective Date Expiration Date [facility] Employees [id number] Druckenmiller , P M Id: [id number] [address] [facility] [address] Home Phone: Email: [email or web address], InclLouis FRANCA/HARI Id: [id number] Seamon , P Id: [id number] [address] [facility] [address] Home Phone: Email: none Encounters Encounter Location(s) Arrival/Admit Date Discharge/Departure Date Discharge/Departure Disposition Provider(s) Departed Physician/ Provider Office Visit -[facility] March 09, 2025 8:08am March 09, 2025 8:49am Discharged to home care or self care (routine discharge) Carissa Queen APRN Recent Diagnosis Onset Date Admit Date Dietary counseling and surveillance Unknown March 09, 2025 8:08am Hyperlipidemia, unspecified Unknown Feb 8:08am Insulin pump in place Unknown March 09, 2025 8:08am USP (current) use of insulin Unknown March 09, 2025 8:08am Unknown March 09, 2025 8:08am Type 1 diabetes mellitus with hyperglycemia Unkn own March 09, 2025 8:08am Vitamin D deficiency, unspecified Unknown March 09, 2025 8:08am Assessments Diagnosis Onset Date Resolution Status Admit Date Dietary counseling and surveillance acuteSept2024 8:08amHyperlipidemia, unspecifiedacuteSept2024 8:08amInsulin pump in placeacuteSept2024 8:08amLong term (current) use of insulinacuteSept2024 8:08amPregnancyacuteSept2024 8:08amType 1 diabetes mellitus with hyperglycemiaacuteSept2024 8:08amVitamin D deficiency, unspecifiedacuteSept2024 8:08am Plan of Treatment Author Carissa Queen [facility]ored[facility]ofl [facility] 20[facility] 3:47pm Now being managed by maternal- medicine. OmniPod reviewed as onsite and for overt safety. She has appointment with them tomorrow. Report 24 February through 09 March 2025 OmniPod active with CGM 94.3%, GMI 6.4%, average glucose 129. Ranges: Greater than 253%, 141- 250 34%, 60-140 is 56%, 54-59 3% and below 54 is 4%. Tight control based on maternal- medicine goals. She is being titrated almost every other week. She has not had any severe lows requiring assistance. Total insulin per day is 49.3 units, 42% of this is basal and 53% is bolus. 5.6 boluses per day. Approximately 115.3 carbs per day. OmniPod 5 pump report 02 December through 15 December 2024 she is wearing Dexcom G7. CGM active 94.4%, GMI 8.0%, average glucose 197. Ranges: Greater than 250 is 24%, 181-250 is 28%, 70- 180 is 47%, 54-69 is 1%. Total daily insulin is 36.1 unit, currently 59% or 21.2 units and basal per day and 41% or 14.9 units bolus per day. She has approximately 4 boluses per day. She is in manual mode through December 08 due to PDM not working and phone amy beginning December 08. She does average 122.7 carbs per day manual entries is 2.3 entries per day. Hx Meter: No meter or glucometer, has been off Dexcom G6 for months. Uses OmniPod Dash, no CGM or glucometer at this time. Uses [employer]'s glucometer or checks blood glucose at work. She uses Humalog and her OmniPod Dash. Pump report 03 September through 16 September 2024 see scanned infrequent blood glucose checks report reflects 8.3 units/day bolus average of 93.8 carbohydrates per day, 1.7 entries. Basal rate unit noted 21.4 units/day, 3 intervals input 12 AM to 3 is 1 unit/h, 3 AM to 4 PM 0.8 units/h 4 PM to midnight 1 unit/h. Sensitivity factor is 1 unit for every 75 mg/dL above goal and correction factor is 1 unit for every 12 carbohydrates. Target mg/dL threshold correction 125 mg/dL. 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 Notes reviewed Any recent hospitalizations: [facility] for 5 days early February, managed and seen post hospitalization by maternal- medicine Prescriptions needed: Passed through prescriptions due to employee diabetes program ASSESSMENT: 1. Controlled , a Type 1 diabetes with A1c of 7.8%,6.9%,7.4%, GMI today 6.4 % with lows, being managed by maternal- medicine. Current diabetes regime: Humalog and OmniPod 5 now with phone all titrations by maternal- medicine Hx no CGM, infrequent blood glucose checks or correction, unclear low blood sugars. [facility], new to diabetes program. Previously seen by[]. Rip Rodriguez PCP, sister is also type I diabetic. History of hyperammonemia, mistaken as psych historically. History of cholecystectomy 2. Blood glucose levels tightened controlled by maternal- medicine continue Omnipod 5 with Dexcom G7 titrations all by maternal- medicine for all glycemia, will take over she is due around 3rd-4th week of July.. Will maintain engagement for RXs insulin and supplies d/t employee diabetes program at [facility]. wear CGM at all times. Lipids UMIC up to date. BP reasonable control today, weight currently stable Prescription requests: none return to clinic PUMP SETTINGS: Date: 03/09/2025-- Previous settings/ Changes in Bold-- none Actual TDI: 49.3 units actual TDBasal: 22.55 Basal Setting: see scan Bolus Setting: mn-mn: see scan ISS: see scan Target BG 110 3. Patient is alert, oriented and receptive to making changes or counseling. Notes: Seen for an assessment of current glucose pattern, changes in treatment plan, counseling and coordination of care related to diabetes, risks, and benefits of treatment, medications, side effects. Given handouts to reinforce concepts reviewed during counseling, see scanned notes. TOPICS REVIEWED: 1. Time was spent reviewing: a. Basic concepts of diabetes, progressive beta cell , concepts of basal/bolus/corrective insulin requirements. Basal: The goal is fasting blood glucose of 90-130mg. IF fasting blood glucose starts to run under 100mg 3x's/ week, decrease dose by 10%. Bolus: The goal is to hold the blood glucose level steady meal to meal. If pt. is going to have increased physical activity after a meal, decrease the schedule meal dose prior to the activity by 30-50%. If pt. skips a meal do not take this dose. Correction: The goal is to correct an elevated glucose back into the 100-150mg range b. Nutrition: Concepts of healthy diet, encouraged to decrease saturated fat in diet and increase non-starchy vegetables and fruits in diet. BMI: Pt. needs to select one small change to decrease caloric intake or increase physical activity to help decrease weight. c. Correct treatment of hypoglycemia, carry a glucose source at all times on your person, in vehicles, and at bedside. Can use glucose tablets/4, four ounces of pop or juice equal to 15 G of carbohydrate. Blood glucose should be 100 mg/dl or higher when driving. d. ADA glucose goals for age and medical complexity reviewed e. Patient questions addressed 2. Activity/exercise: Encouraged to start any form of physical activity. Start low level and increase slowly to a minimal goal of 150 minutes/week. Limit activity to what is allowed by other issues such as cardiac, pulmonary or orthopedic restrictions. 3. Standards of care: Reminded to have an annual dilated eye exam, A1C every 3 months, urine testing for microalbumin once/year, check feet daily and report any cuts or sores that do not appear to be healing. 4. Meter: Plan to check blood glucose: Please check blood glucose levels 4 times/day. Back to back meals reveal effectiveness of bolus dosing. The blood glucose data is used to determine insulin doses and confirm symptoms for hypoglycemia and hyperglycemia. 5. [facility]. Contact office if any issues or concerns with patterns of hypoglycemia, hyperglycemia, or diabetes medication issues. Future Tests Future scheduled test information is unavailable Pending Tests Pending diagnostic test information is unavailable Future Visits Future appointment information is unavailable Future Procedures Future procedure information is unavailable Future Medications Future medication information is unavailable Patient Instructions Instruction Admit Date Checking your blood sugar at home Low blood sugar in adults - ED discharge instructionsSept2024 7:50pm
--- OUTSIDE RECORDS SUMMARY | 2025-04-08 12:00 | XMS_ITS | Encounter Summary ---
Author Organization [facility] tem Address [id number] [address] [place] [address] Care Team Providers Care Warp Dresser Name Role Phone Dru Rodriguez DO Primary Care Provider [phone] Reason for Referral * Cardiology (Routine) - AuthorizedSpecialtyDiagnoses / ProceduresReferred By ContactReferred To Contact Diagnoses Type 1 diabetes mellitus complicating in second trimester, antepartum Procedures Echo complete W/O contrast Georgiana Esteban MD [address] [place] [address] Phone: tel: fax: Referral IDStatusReasonStart DateExpiration DateVisits RequestedVisits [id number]/[id number]/30/[id number] Encounter Details DateTypeDepartmentCare Team (Latest Contact Info)Ugqcpxmsndd11/30/2025 1:00 PM EDTTelemedicine Maternal- Medicine at [facility] [address] [place] [id number] Georgiana Esteban MD [address], [place] [id number] 22 weeks gestation of (Primary Dx); Type 1 diabetes mellitus complicating in second trimester, antepartum; Asthma complicating in second trimester Social History Tobacco UseTypesPacks/DayYears UsedDateSmoking Tobacco: NeverSmokeless Tobacco: NeverAlcohol UseStandard Drinks/WeekCommentsYes0 (1 standard drink = 0.6 oz pure alcohol)socialK[facility]N [facility] UtilitiesAnswerDate RecordedIn the past 12 months has the [employer], [employer], oil, or water [employer] threatened to shut off services in your [...] care, and heating?Not hard at all02/17/2025PHQ-2AnswerDate RecordedTotal Uajuz75406/12/2023[facility] [place] [facility] - Occupational Stress QuestionnaireAnswerDate [...] a household?No02/17/2025hildcareAnswerDate RecordedDo problems getting 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 * Preeclampsia (Spanish) documented in this encounter Progress Notes * Georgiana Esteban MD - 04/08/2025 1:00 PM EDT Video Visit via Real-time Synchronous Audiovisual Provider Location: [facility] AT [address] [id number] Patient Location: Patient's home Patient Location Commissions Manager: None Video Visit Consent Statement: I discussed risks, benefits, and alternatives of a real-time synchronous audiovisual consultation with the patient (and any accompanying persons) including the risks that the patient's personal health details and medical records will be discussed over real-time, synchronous, interactive video/audio/telecommunication technology, the visit will not be recorded withoutthe express consent of both the provider and the patient, and that there are some limitations compared to [id number] evaluations. We elected to proceed. [facility] Maternal- Medicine Follow up Note Reason For Consult: Follow-up secondary to type 1 diabetes, suboptimally controlled, on insulin pump. I received phone call earlier this week from [facility] where patient was evaluated and noted to have poorly controlled diabetes while . She was not in DKA and was sent home. I set up her close follow-up with MFM team to review her blood sugars and up titrate as needed. HPI: Dalia Shaw is a 25 y.o. at 22w6d with Estimated Date of Delivery: 08/06/25 based on LMP=US at 7w3d who presented for consultation from Bryant Kelley DO regarding type 1 diabetes I have reviewed the pertinent available patient records including but not limited to notes, labs and images She reports that she is doing well. She reports normal movements and she denies leakage of fluid, contractions or vaginal bleeding. She denies fever, chills, nausea, vomiting, shortness of breath, chest pain, headache, blurry vision, right upper quadrant pain or edema. Additionally patient reported that she has been seen by ophthalmology who diagnosed mild retinopathy. She also has been seen by dentist who diagnosed her with gingivitis - will require additional deep cleaning later after delivery Patient already has a scheduled appointment for follow-up anatomy ultrasound and echo with MFM next Saturday04/14/2025. She also has follow-up appointment with M provider Rosy on 04/13/2025. complicated by: 1. Type 1 diabetes, on insulin pump, suboptimally controlled at this time. Need close followups 2. Asthma, controlled 3. Obesity with BMI 30 Complications: Problem List Items Addressed This Visit None Visit Diagnoses 22 weeks gestation of - Primary Type 1 diabetes mellitus complicating in second trimester, antepartum Asthma complicating in second trimester Denies family history of: learning difficulties, congenital anomalies, DVT/VTE, early-onset cancer,early-onset cardiac disease or other inherited conditions Denies tobacco or marijuana smoking, alcohol or other substance use in Denies exposure to cat litter, farming animals, toxic exposure to chemical at work/environment Recent hospitalization (past 30 days): denies Review of systems: Review of systems was noncontributory OB Hx: OB History Para Term AB Living 1 0 0 0 0 0 SAB IAB Ectopic Multiple Live Births 0 0 0 0 0 # Outcome Date GA Lbr Gold/2nd Weight Sex Type Anes PTL Lv 1 Current PREECLAMPSIA SCREEN ([place] Preventive Services Task Force) Patient is at high risk if 1 or more factors present. Incidence of preeclampsia is >= 8%: []Prior preeclampsia []Multiple gestation []Chronic hypertension [x]Type 1 or 2 diabetes []Renal disease []Autoimmune disease (Lupus, APLS) Patient is at moderate risk is several risk factors are present: [x]Nulliparity [x]Obesity (BMI >= 30) []Family history of preeclampsia (mother, sister) []Sociodemographic characteristics (AA, low socioeconomic status) []Age >= 35 []Personal history factor (Previous SGA, adverse outcome, > 10 years from last ) PMH: Past Medical History: Diagnosis Date Diabetes mellitus type I ([facility] PSHIST: Past Surgical History: Procedure Laterality Date CHOLECYSTECTOMY 11/2022 COLONOSCOPY 2014 UPPER GASTROINTESTINAL ENDOSCOPY 2014 Allergies: Allergies Allergen Reactions Amoxicillin Has since taken without reaction Meds: Current Outpatient Medications: acetaminophen (TylenoL) 325 mg [...] in the morning.,Disp: 30 tablet, Rfl: 0 SH: Social History Socioeconomic History Marital status: Single Spouse name: Not on file Number of children: Not on file Years of education: Not on file Highest education level: Not on file Occupational History Not on file Tobacco Use Smoking status: Never Smokeless tobacco: Never Vaping Use Vaping status: Never Used Substance and Sexual Activity Alcohol use: Yes Comment: social Drug use: No Sexual activity: Yes Partners: Male control/protection: Condom Other Topics Concern Not on file Social History Narrative Not on file Social Drivers of Health Financial Resource Strain: Low Risk (02/17/2025) Overall Financial Resource Strain (CARDIA) Difficulty of Paying Living Expenses: Not hard at all Food Insecurity: No Food Insecurity (02/17/2025) Hunger Screening Food Insecurity - Worry: Never True Food Insecurity - Inability: Never True Transportation Needs: No Transportation Needs (02/17/2025) PRAPARE - Transportation Lack of Transportation (Medical): No Lack of Transportation (Non-Medical): No Physical Activity: Sufficiently Active (03/11/2023) Received from [facility] Exercise Vital Sign On average, how many days per week do you engage in moderate to strenuous exercise (like a brisk walk)?: 4 days On average, how many minutes do you engage in exercise at this level?: 80 min Stress: No Stress Concern Present (02/17/2025) [place] [employer] - Occupational Stress Questionnaire Feeling of Stress : Not at all Social Connections: Unknown (10/22/2023) Received from [facility] Short Social Needs Screening - Social Connection Would you like help with any of the following needs: food, medicine/medical supplies, transportation, loneliness, housing or utilities?: Not on file Interpersonal Safety: Not At Risk (02/17/2025) Humiliation, Afraid, Rape, and Kick questionnaire Fear of Current or Ex-Partner: No Emotionally Abused: No Physically Abused: No Sexually Abused: No Housing Instability: Low Risk (02/17/2025) Housing Instability Housing Instability: No Physical Exam: Vital Signs - not obtained due to nature of encounter - telemedicine visit There were no vitals filed for this visit. Physical Exam: Not performed due to nature of encounter telemedicine visit Patient appears not in acute distress, alert and oriented. Recent notes, laboratory evaluation and images reviewed labs reviewed: Recent Results (from the past 40 weeks) Type and screen Collection Time: 01/04/25 12:00 AM Result Value Ref Range Abo/Rh(D) O Negative Antibody Screen negative CBC without diff Collection Time: 01/04/25 12:00 AM Result Value Ref Range Hemoglobin 12.36 Hematocrit 35.7 Rbc Mcv (Fl) By Automated Count 87.3 Platelets 280 Drug Screen, Urine Collection Time: 01/04/25 12:00 AM Specimen: Urine Result Value Ref Range Methadone negative Opiates negative Amphetamine/Methamphetamine negative Cocaine Metabolite negative Phencyclidine negative Thc Marijuana, Urine negative Oxycodone negative Barbiturates negative Benzodiazepines negative Basic Metabolic Panel Collection Time: 01/04/25 12:00 AM Result Value Ref Range Glucose 157 mg/dL Hemoglobin A1c Collection Time: 01/04/25 12:00 AM Result Value Ref Range Hemoglobin A1C 7.1 (A) 4.0 - 6.0 % HIV 1&2 AB/AG Screen (P24 AG) Collection Time: 01/04/25 12:00 AM Result Value Ref Range HIV 1&2 AB/AG non reactive Light Blue Top Collection Time: 01/08/25 2:13 PM Result Value Ref Range Extra Tube Auto Resulted SST TOP Collection Time: 01/08/25 2:13 PM Result Value Ref Range Extra Tube Auto Resulted CBC auto differential Collection Time: 01/08/25 2:14 PM Result Value Ref Range WBC 11.0 4 - 11 x10E9/L RBC Count 4.55 3.8 - 5.2 X10E12/L Hemoglobin 13.4 11.7 - 15.5 g/dL Hematocrit 39.1 35 - 47 % MCV 86 80 - 100 fL MCH 29.5 27 - 34 pg MCHC 34.3 32 - 36 g/dL RDW 13.7 11.5 - 15 % Platelet Count 323 150 - 450 X10E9/L MPV 8.5 7 - 12 fL Neutrophils % 71.5 % Lymphocytes % 21.6 % Monocytes % 5.8 % Eosinophils % 0.8 % Basophils % 0.3 % Neutrophils Absolute (A) 7.8 (H) 1.5 - 6.6 10*3/uL Lymphocytes Absolute 2.4 1.0 - 3.5 10*3/uL Monocytes Absolute 0.6 0.0 - 0.9 10*3/uL Eosinophils Absolute 0.1 0.0 - 0.4 10*3/uL Basophils Absolute 0.0 0.0 - 0.2 10*3/uL Differential Type AUTOMATED DIFFERENTIAL Basic Metabolic Panel Collection Time: 01/08/25 2:14 PM Result Value Ref Range SODIUM 134 134 - 146 mmol/L POTASSIUM 3.5 3.5 - 5.0 mmol/L CHLORIDE 102 98 - 109 mmol/L CARBON DIOXIDE 23 22 - 32 mmol/L ANION GAP 9 5 - 15 mmol/L BLOOD UREA NITROGEN 12 5 - 23 mg/dL CREATININE 0.88 0.40 - 1.00 mg/dL GLUCOSE 130 (H) 65 - 99 mg/dL CALCIUM 9.2 8.5 - 10.5 mg/dL EGFR Non-Race Dependent >90 >=60 ml/min/1.73sq.m Acetone, (BetaHydroxybutyrate, Ketone) quantitative, serum Collection Time: 01/08/25 2:14 PM Result Value Ref Range BETAHYDROXYBUTYRATE 0.19 0.02 - 0.27 mmol/L Magnesium Collection Time: 01/08/25 2:14 PM Result Value Ref Range MAGNESIUM 1.9 1.8 - 2.6 mg/dL Blood gas, venous Collection Time: 01/08/25 2:50 PM Result Value Ref Range Sample type VENOUS pH, Venous 7.386 7.320 - 7.420 pCO2, Venous 40.3 35.0 - 50.0 mmHg pO2, Venous 40 30 - 50 mmHg Base, Deficit -1.0 (L) 0.0 - 2.0 mmol/L HCO3, Venous 24.2 (H) 20.0 - 24.0 mmol/L %O2 Saturation, Venous 75.0 % Jelani's test N/A Sample site N/A Source Of Oxygen Room Air Bedside Glucose *Place/Obtain serum glucose if >500 per glucometer. Collection Time: 02/17/25 7:15 PM Result Value Ref Range Bedside Glucose (POC) 146 (H) 65 - 99 mg/dL Comprehensive metabolic panel Collection Time: 02/17/25 7:16 PM Result Value Ref Range SODIUM 136 134 - 146 mmol/L POTASSIUM 3.5 3.5 - 5.0 mmol/L CHLORIDE 103 98 - 109 mmol/L CARBON DIOXIDE 25 22 - 32 mmol/L ANION GAP 8 5 - 15 mmol/L BLOOD UREA NITROGEN 13 5 - 23 mg/dL CREATININE 0.63 0.40 - 1.00 mg/dL GLUCOSE 123 (H) 65 - 99 mg/dL CALCIUM 8.5 8.5 - 10.5 mg/dL TOTAL PROTEIN 7.1 6.0 - 8.0 g/dL ALBUMIN 3.8 3.2 - 5.3 g/dL ALKALINE PHOSPHATASE 52 39 - 130 U/L AST 14 <=41 U/L ALT 12 <=31 U/L BILIRUBIN,TOTAL 0.2 (L) 0.3 - 1.2 mg/dL EGFR Non-Race Dependent >90 >=60 ml/min/1.73sq.m Acetone, (BetaHydroxybutyrate, Ketone) quantitative, serum Collection Time: 02/17/25 7:16 PM Result Value Ref Range BETAHYDROXYBUTYRATE 0.16 0.02 - 0.27 mmol/L CBC auto differential Collection Time: 02/17/25 7:17 PM Result Value Ref Range WBC 14.0 (H) 4 - 11 x10E9/L RBC Count 4.30 3.8 - 5.2 X10E12/L Hemoglobin 12.8 11.7 - 15.5 g/dL Hematocrit 37.5 35 - 47 % MCV 87 80 - 100 fL MCH 29.7 27 - 34 pg MCHC 34.0 32 - 36 g/dL RDW 13.4 11.5 - 15 % Platelet Count 269 150 - 450 X10E9/L MPV 8.3 7 - 12 fL Neutrophils % 74.7 % Lymphocytes % 19.9 % Monocytes % 4.6 % Eosinophils % 0.6 % Basophils % 0.2 % Neutrophils Absolute (A) 10.5 (H) 1.5 - 6.6 10*3/uL Lymphocytes Absolute 2.8 1.0 - 3.5 10*3/uL Monocytes Absolute 0.6 0.0 - 0.9 10*3/uL Eosinophils Absolute 0.1 0.0 - 0.4 10*3/uL Basophils Absolute 0.0 0.0 - 0.2 10*3/uL Differential Type AUTOMATED DIFFERENTIAL SST TOP Collection Time: 02/17/25 7:17 PM Result Value Ref Range Extra Tube Auto Resulted Urinalysis Collection Time: 02/17/25 7:25 PM Specimen: Urine, Clean Catch Midstream Result Value Ref Range COLOR Yellow Yellow TURBIDITY Hazy (A) Clear SPECIFIC GRAVITY 1.025 1.003 - 1.035 NITRITE Negative Negative PH,URINE 6.0 5.0 - 8.5 LEUKOCYTE ESTERASE Large (A) Negative PROTEIN Negative Negative KETONES (URINE) 60 mg/dL (A) Negative UROBILINOGEN <1.1 eu/dL <1.1 eu/dL BILIRUBIN (URINE) Negative Negative BLOOD/HGB Negative Negative MUCOUS Present (A) None R.B.CELLS 0 0 - 5 SQUAMOUS EPITHELIUM 11 (H) 0 - 5 W.B.CELLS 57 (H) 0 - 5 GLUCOSE (URINE) Negative Negative Urine Culture Urine, Clean Catch Midstream Collection Time: 02/17/25 7:25 PM Specimen: Urine, Clean Catch Midstream Result Value Ref Range CULTURE RESULTS 10-50,000 ORGANISMS/mL NORMAL UROGENITAL SERJIO Bedside Glucose *Place/Obtain serum glucose if >500 per glucometer. Collection Time: 02/17/25 9:45 PM Result Value Ref Range Bedside Glucose (POC) 94 65 - 99 mg/dL Bedside Glucose *Place/Obtain serum glucose if >500 per glucometer. Collection Time: 02/18/25 2:06 AM Result Value Ref Range Bedside Glucose (POC) 46 (LL) 65 - 99 mg/dL Bedside Glucose *Place/Obtain serum glucose if >500 per glucometer. Collection Time: 02/18/25 2:26 AM Result Value Ref Range Bedside Glucose (POC) 44 (LL) 65 - 99 mg/dL Bedside Glucose *Place/Obtain serum glucose if >500 per glucometer. Collection Time: 02/18/25 2:47 AM Result Value Ref Range Bedside Glucose (POC) 83 65 - 99 mg/dL Bedside Glucose *Place/Obtain serum glucose if >500 per glucometer. Collection Time: 02/18/25 6:03 AM Result Value Ref Range Bedside Glucose (POC) 158 (H) 65 - 99 mg/dL LDH Collection Time: 02/18/25 8:20 AM Result Value Ref Range LDH 176 100 - 235 U/L Uric acid Collection Time: 02/18/25 8:20 AM Result Value Ref Range URIC ACID 3.1 2.6 - 7.2 mg/dL Lavender Top Collection Time: 02/18/25 8:20 AM Result Value Ref Range Extra Tube Auto Resulted Bedside Glucose *Place/Obtain serum glucose if >500 per glucometer. Collection Time: 02/18/25 9:34 AM Result Value Ref Range Bedside Glucose (POC) 53 (LL) 65 - 99 mg/dL Bedside Glucose *Place/Obtain serum glucose if >500 per glucometer. Collection Time: 02/18/25 10:11 AM Result Value Ref Range Bedside Glucose (POC) 88 65 - 99 mg/dL Bedside Glucose *Place/Obtain serum glucose if >500 per glucometer. Collection Time: 02/18/25 10:37 AM Result Value Ref Range Bedside Glucose (POC) 115 (H) 65 - 99 mg/dL Bedside Glucose *Place/Obtain serum glucose if >500 per glucometer. Collection Time: 02/18/25 2:42 PM Result Value Ref Range Bedside Glucose (POC) 225 (H) 65 - 99 mg/dL Bedside Glucose *Place/Obtain serum glucose if >500 per glucometer. Collection Time: 02/18/25 5:53 PM Result Value Ref Range Bedside Glucose (POC) 194 (H) 65 - 99 mg/dL Bedside Glucose *Place/Obtain serum glucose if >500 per glucometer. Collection Time: 02/18/25 7:02 PM Result Value Ref Range Bedside Glucose (POC) 197 (H) 65 - 99 mg/dL Bedside Glucose *Place/Obtain serum glucose if >500 per glucometer. Collection Time: 02/18/25 9:04 PM Result Value Ref Range Bedside Glucose (POC) 78 65 - 99 mg/dL Bedside Glucose *Place/Obtain serum glucose if >500 per glucometer. Collection Time: 02/19/25 12:01 AM Result Value Ref Range Bedside Glucose (POC) 109 (H) 65 - 99 mg/dL Bedside Glucose *Place/Obtain serum glucose if >500 per glucometer. Collection Time: 02/19/25 3:14 AM Result Value Ref Range Bedside Glucose (POC) 75 65 - 99 mg/dL Bedside Glucose *Place/Obtain serum glucose if >500 per glucometer. Collection Time: 02/19/25 4:51 AM Result Value Ref Range Bedside Glucose (POC) 67 65 - 99 mg/dL Bedside Glucose *Place/Obtain serum glucose if >500 per glucometer. Collection Time: 02/19/25 5:27 AM Result Value Ref Range Bedside Glucose (POC) 142 (H) 65 - 99 mg/dL Protein, urine, 24 hour Collection Time: 02/19/25 6:57 AM Specimen: Urine Result Value Ref Range URINE TOTAL PROTEIN 168 (H) 0 - 150 mg/24h LAB TOT VOLUME - 24H URINE 2,400 Bedside Glucose *Place/Obtain serum glucose if >500 per glucometer. Collection Time: 02/19/25 8:53 AM Result Value Ref Range Bedside Glucose (POC) 126 (H) 65 - 99 mg/dL Bedside Glucose *Place/Obtain serum glucose if >500 per glucometer. Collection Time: 02/19/25 9:55 AM Result Value Ref Range Bedside Glucose (POC) 169 (H) 65 - 99 mg/dL Bedside Glucose *Place/Obtain serum glucose if >500 per glucometer. Collection Time: 02/19/25 12:34 PM Result Value Ref Range Bedside Glucose (POC) 47 (LL) 65 - 99 mg/dL Bedside Glucose *Place/Obtain serum glucose if >500 per glucometer. Collection Time: 02/19/25 12:55 PM Result Value Ref Range Bedside Glucose (POC) 48 (LL) 65 - 99 mg/dL Bedside Glucose *Place/Obtain serum glucose if >500 per glucometer. Collection Time: 02/19/25 1:16 PM Result Value Ref Range Bedside Glucose (POC) 52 (LL) 65 - 99 mg/dL Bedside Glucose *Place/Obtain serum glucose if >500 per glucometer. Collection Time: 02/19/25 1:38 PM Result Value Ref Range Bedside Glucose (POC) 95 65 - 99 mg/dL Bedside Glucose *Place/Obtain serum glucose if >500 per glucometer. Collection Time: 02/19/25 2:42 PM Result Value Ref Range Bedside Glucose (POC) 169 (H) 65 - 99 mg/dL Bedside Glucose *Place/Obtain serum glucose if >500 per glucometer. Collection Time: 02/19/25 5:51 PM Result Value Ref Range Bedside Glucose (POC) 106 (H) 65 - 99 mg/dL Bedside Glucose *Place/Obtain serum glucose if >500 per glucometer. Collection Time: 02/19/25 6:52 PM Result Value Ref Range Bedside Glucose (POC) 147 (H) 65 - 99 mg/dL Bedside Glucose *Place/Obtain serum glucose if >500 per glucometer. Collection Time: 02/19/25 8:58 PM Result Value Ref Range Bedside Glucose (POC) 45 (LL) 65 - 99 mg/dL Bedside Glucose *Place/Obtain serum glucose if >500 per glucometer. Collection Time: 02/19/25 9:25 PM Result Value Ref Range Bedside Glucose (POC) 104 (H) 65 - 99 mg/dL Bedside Glucose *Place/Obtain serum glucose if >500 per glucometer. Collection Time: 02/19/25 11:57 PM Result Value Ref Range Bedside Glucose (POC) 199 (H) 65 - 99 mg/dL Bedside Glucose *Place/Obtain serum glucose if >500 per glucometer. Collection Time: 02/20/25 2:57 AM Result Value Ref Range Bedside Glucose (POC) 237 (H) 65 - 99 mg/dL Bedside Glucose *Place/Obtain serum glucose if >500 per glucometer. Collection Time: 02/20/25 6:01 AM Result Value Ref Range Bedside Glucose (POC) 86 65 - 99 mg/dL Bedside Glucose *Place/Obtain serum glucose if >500 per glucometer. Collection Time: 02/20/25 7:40 AM Result Value Ref Range Bedside Glucose (POC) 63 (L) 65 - 99 mg/dL Bedside Glucose *Place/Obtain serum glucose if >500 per glucometer. Collection Time: 02/20/25 8:22 AM Result Value Ref Range Bedside Glucose (POC) 165 (H) 65 - 99 mg/dL Bedside Glucose *Place/Obtain serum glucose if >500 per glucometer. Collection Time: 02/20/25 9:12 AM Result Value Ref Range Bedside Glucose (POC) 167 (H) 65 - 99 mg/dL Bedside Glucose *Place/Obtain serum glucose if >500 per glucometer. Collection Time: 02/20/25 10:24 AM Result Value Ref Range Bedside Glucose (POC) 179 (H) 65 - 99 mg/dL Bedside Glucose *Place/Obtain serum glucose if >500 per glucometer. Collection Time: 02/20/25 1:21 PM Result Value Ref Range Bedside Glucose (POC) 88 65 - 99 mg/dL Bedside Glucose *Place/Obtain serum glucose if >500 per glucometer. Collection Time: 02/20/25 2:22 PM Result Value Ref Range Bedside Glucose (POC) 153 (H) 65 - 99 mg/dL Bedside Glucose *Place/Obtain serum glucose if >500 per glucometer. Collection Time: 02/20/25 5:11 PM Result Value Ref Range Bedside Glucose (POC) 88 65 - 99 mg/dL Bedside Glucose *Place/Obtain serum glucose if >500 per glucometer. Collection Time: 02/20/25 6:17 PM Result Value Ref Range Bedside Glucose (POC) 118 (H) 65 - 99 mg/dL Bedside Glucose *Place/Obtain serum glucose if >500 per glucometer. Collection Time: 02/20/25 7:27 PM Result Value Ref Range Bedside Glucose (POC) 53 (LL) 65 - 99 mg/dL Bedside Glucose *Place/Obtain serum glucose if >500 per glucometer. Collection Time: 02/20/25 7:46 PM Result Value Ref Range Bedside Glucose (POC) 76 65 - 99 mg/dL Bedside Glucose *Place/Obtain serum glucose if >500 per glucometer. Collection Time: 02/20/25 9:10 PM Result Value Ref Range Bedside Glucose (POC) 81 65 - 99 mg/dL Bedside Glucose *Place/Obtain serum glucose if >500 per glucometer. Collection Time: 02/21/25 12:03 AM Result Value Ref Range Bedside Glucose (POC) 85 65 - 99 mg/dL Bedside Glucose *Place/Obtain serum glucose if >500 per glucometer. Collection Time: 02/21/25 3:17 AM Result Value Ref Range Bedside Glucose (POC) 84 65 - 99 mg/dL Bedside Glucose *Place/Obtain serum glucose if >500 per glucometer. Collection Time: 02/21/25 6:15 AM Result Value Ref Range Bedside Glucose (POC) 90 65 - 99 mg/dL Bedside Glucose *Place/Obtain serum glucose if >500 per glucometer. Collection Time: 02/21/25 9:08 AM Result Value Ref Range Bedside Glucose (POC) 72 65 - 99 mg/dL Bedside Glucose *Place/Obtain serum glucose if >500 per glucometer. Collection Time: 02/21/25 10:19 AM Result Value Ref Range Bedside Glucose (POC) 165 (H) 65 - 99 mg/dL Bedside Glucose *Place/Obtain serum glucose if >500 per glucometer. Collection Time: 02/21/25 1:40 PM Result Value Ref Range Bedside Glucose (POC) 147 (H) 65 - 99 mg/dL Bedside Glucose *Place/Obtain serum glucose if >500 per glucometer. Collection Time: 02/21/25 2:49 PM Result Value Ref Range Bedside Glucose (POC) 252 (H) 65 - 99 mg/dL Bedside Glucose *Place/Obtain serum glucose if >500 per glucometer. Collection Time: 02/21/25 3:19 PM Result Value Ref Range Bedside Glucose (POC) 132 (H) 65 - 99 mg/dL Bedside Glucose *Place/Obtain serum glucose if >500 per glucometer. Collection Time: 02/21/25 5:08 PM Result Value Ref Range Bedside Glucose (POC) 86 65 - 99 mg/dL Bedside Glucose *Place/Obtain serum glucose if >500 per glucometer. Collection Time: 02/21/25 5:24 PM Result Value Ref Range Bedside Glucose (POC) 68 65 - 99 mg/dL Bedside Glucose *Place/Obtain serum glucose if >500 per glucometer. Collection Time: 02/21/25 5:42 PM Result Value Ref Range Bedside Glucose (POC) 73 65 - 99 mg/dL Bedside Glucose *Place/Obtain serum glucose if >500 per glucometer. Collection Time: 02/21/25 6:15 PM Result Value Ref Range Bedside Glucose (POC) 88 65 - 99 mg/dL Bedside Glucose *Place/Obtain serum glucose if >500 per glucometer. Collection Time: 02/21/25 7:21 PM Result Value Ref Range Bedside Glucose (POC) 126 (H) 65 - 99 mg/dL Bedside Glucose *Place/Obtain serum glucose if >500 per glucometer. Collection Time: 02/21/25 9:25 PM Result Value Ref Range Bedside Glucose (POC) 35 (LL) 65 - 99 mg/dL Bedside Glucose *Place/Obtain serum glucose if >500 per glucometer. Collection Time: 02/21/25 9:46 PM Result Value Ref Range Bedside Glucose (POC) 77 65 - 99 mg/dL Bedside Glucose *Place/Obtain serum glucose if >500 per glucometer. Collection Time: 02/22/25 12:16 AM Result Value Ref Range Bedside Glucose (POC) 66 65 - 99 mg/dL Bedside Glucose *Place/Obtain serum glucose if >500 per glucometer. Collection Time: 02/22/25 12:37 AM Result Value Ref Range Bedside Glucose (POC) 87 65 - 99 mg/dL Bedside Glucose *Place/Obtain serum glucose if >500 per glucometer. Collection Time: 02/22/25 3:08 AM Result Value Ref Range Bedside Glucose (POC) 85 65 - 99 mg/dL Bedside Glucose *Place/Obtain serum glucose if >500 per glucometer. Collection Time: 02/22/25 5:47 AM Result Value Ref Range Bedside Glucose (POC) 80 65 - 99 mg/dL Bedside Glucose *Place/Obtain serum glucose if >500 per glucometer. Collection Time: 02/22/25 9:11 AM Result Value Ref Range Bedside Glucose (POC) 80 65 - 99 mg/dL Bedside Glucose *Place/Obtain serum glucose if >500 per glucometer. Collection Time: 02/22/25 10:59 AM Result Value Ref Range Bedside Glucose (POC) 61 (L) 65 - 99 mg/dL Bedside Glucose *Place/Obtain serum glucose if >500 per glucometer. Collection Time: 02/22/25 11:19 AM Result Value Ref Range Bedside Glucose (POC) 68 65 - 99 mg/dL Bedside Glucose *Place/Obtain serum glucose if >500 per glucometer. Collection Time: 02/22/25 11:44 AM Result Value Ref Range Bedside Glucose (POC) 81 65 - 99 mg/dL Bedside Glucose *Place/Obtain serum glucose if >500 per glucometer. Collection Time: 02/22/25 12:57 PM Result Value Ref Range Bedside Glucose (POC) 109 (H) 65 - 99 mg/dL Bedside Glucose *Place/Obtain serum glucose if >500 per glucometer. Collection Time: 02/22/25 1:59 PM Result Value Ref Range Bedside Glucose (POC) 92 65 - 99 mg/dL Previous Ultrasound findings US MFM with or without consult Result Date: 03/16/2025 Narrative: NAME: DARREN ART : 2000 SEX: F Accession Number: [id number] ORDERING PHYSICIAN: ROSY ARREDONDO REFERRING PHYSICIAN: BRYANT PULLIAM Coding Procedures 05288: Ultrasound, uterus, real time with image documentation, and maternal evaluation plus detailed anatomic examination, transabdominal approach;single or first gestation 17232: Ultrasound, uterus, real time with image documentation, transvaginal 04269: 3D rendering with interpretation and reporting of computed tomography, magnetic resonance imaging, ultrasound, or other tomographic modality with image postprocessing under concurrent supervision; not requiring image postprocessing on an independent workstation I ndication Screening for Anatomic Survey, Screening for cervical length, Pre-existing Type 1 diabetes in , Screening for congenital cardiac abnormality. History OB History 1 Current -- Cell free DNA low risk analysis Maternal Assessment Physical Exam Height 147 cm, 4 ft 10 in. Initial weight 56 kg, 123 lb. Initial BMI 25.71 kg/m?? Method Transabdominal and transvaginal ultrasound examination.View: Suboptimal view: limited by position. Medical Surveillance Agent Surveillance Agent declined -------- ------ De La Rosa . Number of fetuses: 1 Dating LMP on: 10/30/2024 GA by LMP 19 w + 4 d MANDO by LMP: 08/06/2025 Previous Ultrasound on: 12/24/2024 Type of prior assessment: GA GA at prior assessment date 7 w + 3 d GA by previous U/S 19 w + 1 d MANDO by previous Ultrasound: 08/09/2025 Ultrasound examination on: 03/16/2025 Quiana U/S based upon: AC, BPD, Femur, HC GA by U/S 19 w + 3 d MANDO by U/S: 08/07/2025 Assigned: based onthe LMP, selected on 03/16/2025 Assigned GA (weeks [...] 40% Hadlock Cerebellum tr 19.5 mm 18w 6d35% Hill Nuchal fold 3.3 mm AC 140.5 mm 19w 3d 40% Hadlock Femur 29.3 mm 19w 0d 24% Hadlock Phstslf74.4 mm 19w 4d 54% Randolph HC / AC 1.20 71% Hadlock EFW 284 g 29% Hadlock EFW (lb) 0 lb EFW (oz) 10 oz EFW by: Hadlock (DFD-XZ-EL-FL) Extended Tibia 25.1 mm 18w 6d 33% Randolph Pipeline Systems Operator 6.5 mm CM 3.4 mm 9% Nicolaides [...] Midline falx. Cavum septi pellucidi. Cerebellum. Cisterna magna. Parenchyma. Vermis. Neck. Nuchal fold. Face: Lips. Nose. Heart/Thorax: Right lung. Left lung. Abdomen: Abdom. wall. Cord insertion. Stomach. Kidneys. Bladder. Small bowel. Large bowel. Right renal artery. Left renal artery. Genitals. Spine: Cervical spine. Thoracic spine. Lumbar spine. Sacral spine. Extremities/Skeleton: Right upper arm. Right forearm. Right hand. Left upper arm. Left forearm. Left hand. Rightupper leg. Right lower leg. Right foot. Left upper leg. Left lower leg. Left foot. The following structures could not be adequately visualized: Heart / Thorax 4- chamber view. 3-irubbm-dnwdkvi view. Diaphragm. The following structures could not be examined: Face Profile. Nasal bone. Maxilla. Mandible. Orbits. Heart / Thorax RVOT view. LVOT view. 3-vessel view. Great vessels. Echocardiogram -- Situs situs solitus (normal) Cardiac position normal Cardiac axis normal Cardiac size normal (approx. 1/3 of thoracic area) Cardiac rhythm regular (normal) 4-chamber view suboptimal LVOT view not examined RVOT view not examined 3-vessel view not examined 5-clrhco-jtfvrjm view suboptimal Aortic arch view not examined [...] examined Pulmonary arteries not examined Linear insertion ofAV valves no Pericardial effusion no Maternal Structures [...] of 08/06/2025. Normal growth. EFW measures at the29%, AC measures at the 40%. Transvaginal cervical length measures 3.29 cm. Amniotic fluid MVP measures 2.9 cm. Recommendations The patient is scheduled in four to weeks to complete anatomic survey and echocardiogram. Subsequent follow up or other follow up as clinically determined by primary OB provider unless otherwise specified by [facility]. Results forwarded to ordering provider so they can followup with the patient as necessary. SSMENT and PLAN 25 y.o. @ at 22w6d with Estimated Date of Delivery: 08/06/25 here for consultation regardin. Type 1 diabetes mellitus complicating in second trimester, antepartum Previously patient was extensively consult regarding type 1 diabetes in - please see prior consult note documentation. Maternal Medicine managed patient's insulin titration. Patient is not able to set up her appointment with Dr. Cerrato due to insurance coverage. She has her primary lay ups assembler Mily Queen ([facility]) and we will follow up with her post delivery however she desired to be manage with MFM during . Patient has longstanding history of type 1 diabetes - 10-year-old diagnosed. She has been on Omnipod pump for about 5 years now. She had twice been in DKA in 2017 diabetes, and 2020 due to COVID. Per patient report recently had ophthalmology evaluation with mild retinopathy Dental evaluation: gingivitis I did recommend patient to obtain maternal echo. Last echo was in 2020. Component Latest Ref Rng 06/05/2021 11/11/2023 01/04/2025 04/08/2025 Hemoglobin A1C Confirmation 4.4 - 5.6 % 8.3 (H) 6.7 (H) 7.1 ! (E) 5.1 Average glucose mg/dL 192 146 100 I review her CGM reading: She was only 37% in target range from 60-140, she was outside of target range with elevated blood sugars 59% of the time, Los only 1%. We discussed goal with type 1 diabetes being at target range at least 70% of the time She has baseline elevated glycemia and postprandial hyperglycemia in morning and dinnertime. We discussed to go up on insulin across the board. We reviewed her insulin pump setting. We adjusted her pump setting as documented below. Insulin Instructions Pump Settings- insulin lispro SUBCUTANEOUS PUMP 100 unit/mL patient supplied pump (HumaLOG) Last edited by Rosy Arredondo PA-C on 03/29/2025 at 10:48 AM Automode OFF as of 01/18. Active insulin time 3hrs Basal Rate Total Basal Dose: 25.75 units/day Time units/hr 12:00 AM 0.95>1.1 3:00 AM 0.9 >1.1 6:00 AM 1.05>1.2 9:00 AM 1.15> 1.35 1:00 PM 1.25> 1.45 8:00 PM 0.9 >1.1 10:00 PM 0.95> 1.0 Blood Glucose Target Time mg/dL 12:00 AM 60 - 140 Sensitivity Factor Time mg/dL/unit 12:00 AM 40 Carb Ratio Time g/unit 12:00 AM 4 3:00 AM 4 6:00 AM 5 9:00 AM 5 4:00 PM 5 8:00 PM 5 10:00 PM 5 Patient agreed with the plan. To continue aggressively titrate her insulin due to advanced gestation. RECOMMENDATIONS [x] continue low dose aspirin 81 mg q.day for preeclampsia prevention [x] Detailed anatomic evaluation with cervical length at 20-22 weeks. [facility] [x] Has follow-up visit with [facility] provider on 04/13/2025. Patient is preferably to see ANDRE Gallgeos. [x] Serial growth assessments Q 3-4 weeks after the anatomy scan [x] testing to be initiated weekly at 28 weeks with NST / DVP and twice weekly at 32 with NST and weekly DVP [x] Mode of delivery [x] Anticipated spontaneous vaginal delivery [x] TBD - depending on glycemic control and associated complications of . Delivery time itcould be as early as 36 weeks with complications of diabetes or poorly controlled diabetes with impairment. This has to be review each time closer to the time of delivery. [x] I would recommend this patient to be seen on 1-2 weekly basis due to suboptimally controlled diabetes at this time as she will require more aggressive titration in her 2nd and 3rd trimester. Plan reviewed with patient. She vocalized understanding all questions answered. The patient is to continue with routine care in your office Thank you for allowing me to participate in her care. Please contact me if you have any concerns. Georgiana Esteban MD, PhD, FACOG (she/hers) Maternal- Medicine [facility] [address]st [place] [address] This document was created with [employer] technology. Though I make every effort to review the dictation as it is transcribed, on occasion the spoken word can be misinterpreted by the technology leading to inappropriate words, phrases, or sentences. This note is addressed to the requesting provider as a consultation for clinical guidance. Specificmedical abbreviations are occasionally used and those are generally approved by the [place]?Board of?Obstetrics and?Gynecology?as well as?[place]???s abbreviations. The above plan of care was based solely on the diagnoses for which a consultation was requested. ?More frequent testing may be indicated based on her other medical/obstetrical conditions. The management of other or medical conditions is beyond the scope of requested consultation and will c guillermo to be followed by the primary osteologist or primary care provider. Note to patient: The Century Cures Act makes medical notes like these available to patients inthe interest of transparency. However, be advised this is a medical document. It is intended as peer to peer communication. It is written in medical language and may contain abbreviations or verbiagethat are unfamiliar. It may appear blunt or direct. Medical documents are intended to carry relevant information, facts as evident, and the clinical opinion of the practitioner. documented in this encounter Plan of Treatment DateTypeDepartmentCare Team (Latest Contact Info)Asgcgffpcbs88/05/2025 8:00 AM ESTAppointment [facility] - [facility] US Imaging [address] [place] [address] 04/16/2025 2:00 PM ESTAppointment [facility] - Cardiovascular [address] [place] [address] 04/20/2025 10:30 AM ESTTelemedicine Maternal- Medicine at [facility] [address] [place] [address] Rosy Arredondo PA-C [address] [address] NameTypePriorityAssociated DiagnosesOrder ScheduleEcho complete W/O contrast EchocardiographyRoutine Type 1 diabetes mellitus complicating in second trimester, antepartum 1 Occurrences starting 04/08/2025 until 04/08/2026documented as of this encounter Visit Diagnoses Diagnosis 22 weeks gestation of - Primary Type 1 diabetes mellitus complicating in second trimester, antepartum Asthma complicating in second trimester documented in this encounter Additional Health Concerns AssessmentNoted TimePHQ-9 Depression Total Score: 8:31 AM ESTA Body Mass Index follow-up plan has been documented for the ntygprj9006/12/2023 4:35 PM ESTdocumented as of this encounter Care Teams Team MemberRelationshipSpecialtyStart DateEnd Date Petznick, Dru C, DO [address] [place] [phone] [facility]01/01/17documented as of this encounter
--- OUTSIDE RECORDS SUMMARY | 2025-04-08 12:50 | XMS_ITS | Encounter Summary ---
Author Organization [facility] Address [address] [place] [address] Care Team Providers Care Hog Cutter Name Role Phone Jennifer Dru Chen DO Primary Care Provider [phone] Dru Rodriguez DO Unavailable [phone] Reason for Visit * ReasonCommentsRoutine Visit Encounter Details DateTypeDepartmentCare Team (Latest Contact Info)Nhotzwngulq11/30/2025 1:50 PM EDTRoutine [facility] OBGYLarisa [address] [place] [phone] Katharine Cummins PA [address] [place], [facility] Second trimester ([facility]); 22 weeks gestation of ([facility]); Yeast infection Social History Tobacco UseTypesPacks/DayYears UsedDateSmoking Tobacco: NeverSmokeless [...] relatives?Twice a week03/11/2023How often do you attend anabaptist or confucianist services?1 to 4 times per year03/11/2023o you belong to any clubs or organizations such as anabaptist groups, unions, fraVentureBeat or athletic laura ups, or school groups?No03/11/2023How often do you attend meetings of the clubs or organizations you belong to?Never03/11/2023re you , , , , never , or living with a partner?Nsryfpo7503/11/2023 AUDIT-CAnswerDate RecordedQ1: How often do you have a drink containing alcohol? Monthly or less03/11/2023Q2: How many drinks containing alcohol do you have on a typical day when you are drinking?3 or Q3: How often do you have six or more drinks on one occasion?Less than nbccsun5903/11/2023Overall Financial Resource Strain (CARDIA)AnswerDate RecordedHow hard is it for you to pay for the very basics like food, housing, medical care, and heating?Somewhat hard 03/11/2023HQ-2AnswerDate RecordedPatient Health Questionnaire-2 Score0 03/25/2025[facility] [place] of Occupational Health - Occupational Stress QuestionnaireAnswerDate [...] steady place to sleep or slept in [facility] (including now)?No03/11/2023Estimated Date of WwipqjfgWscqnkcmFvf78/27/2026ased on last menstrual period of 10/30/2024Sex and Gender InformationValueDate RecordedSex Assigned at GdvlmFeqjvv06/01/2023 1:10 PM EDTLegal HfvUmbsvu41/15/2023 6:51 PM EDTGender QjxsylyiGfycuf15/01/2023 1:10 PM EDTSexual YadurtnzkvlGrzrinlv03/01/2023 1:10 PM EDTdocumented as of this encounter Last Filed Vital Signs Vital SignReadingTime TakenCommentsBlood Hgzqsfkp336/7204/08/2025 1:59 PM EDT Pulse--Temperature--Respiratory Rate--Oxygen Saturation--Inhaled Oxygen Concentration--Nltkei97.5 kg (159 lb 12 oz)04/08/2025 1:59 PM EDTHeight--Body Mass Index33.391 8:46 AM EDTdocumented in this encounter Progress Notes * Dixie Gan NP - 04/08/2025 1:50 PM EDT Reason for Appointment: Patient ID: Dalia Shaw is a 25 y.o. female who presents for Routine Visit Patient presents today for Return OB appointment. MEDICATIONS Current Outpatient Medications Medication Instructions Acetone, Urine, Test (Ketone Test) strip check urine FOR ketones with blood glucose greater THAN 250 mg/dL aspirin 81 mg, Daily RT Baqsimi One Pack 3 MG/DOSE nasal powder Use to treat unresponsive hypoglycemia cholecalciferol (Vitamin D-3) 1.25 MG (05463 UT) capsule every week Continuous Blood Gluc Transmit (Dexcom G6 transmitter) misc 1 each, Subcutaneous, Every 3 months, Use as instructed Continuous Glucose Sensor (Dexcom G7 Sensor) misc USE WITH OMNIPOD 5 TO MANAGE BLOOD SUGARS AND CHANGE EVERY 10 DAYS doxylamine (UNISOM) 25 mg, 4 times daily PRN fluconazole (DIFLUCAN) 150 mg, Oral, Once, This is a 1 time dose, take single tablet by mouth. HumaLOG 100 UNIT/ML solution USE PER INSULIN PUMP INSTRUCTION MAX OF 80 UNITS DAILY Insulin Disposable Pump (Omnipod 5 [id number] Pods Gen 5) misc 1 each, Subcutaneous, Every 3 days, CHANGE POD EVERY 3 DAYS DIRECTED insulin glargine (Lantus SoloStar) 100 UNIT/ML pen inject 22 units subcutaneously once daily ondansetron ODT (Zofran-ODT) 4 MG disintegrating tablet DISSOLVE 1 TABLET UNDER THE TONGUE EVERY 8 HOURS NEEDED FOR NAUSEA for up to 10 doses OneTouch Ultra Test test strip USE 1 STRIP TO CHECK GLUCOSE 4 TIMES DAILY Vit w/Lc-Avfrkmzue-EM (PNV PO) Take by mouth promethazine (PHENERGAN) 25 mg, Every 6 hours PRN pyridoxine (VITAMIN B-6) 100 mg, Every morning ALLERGIES Allergies Allergen Reactions Amoxicillin Anaphylaxis Mouth irritation PROBLEMS Active Ambulatory Problems Diagnosis Date Noted Bulging lumbar disc 11/08/2022 Chronic fatigue 11/08/2022 Lumbago with sciatica, left side 11/08/2022 Sciatica 11/08/2022 Celiac disease in pediatric patient ([facility]) 05/23/2016 Generalized anxiety disorder 01/01/2017 Mild intermittent asthma ([facility]) 05/23/2016 Panic disorder without agoraphobia 01/01/2017 Biliary dyskinesia 11/08/2022 Type 1 diabetes mellitus without complications ([facility]) 02/04/2023 Type 1 diabetes mellitus with hypoglycemia [...] (HCC) HISTORY PAST MEDICAL HISTORY SOCIAL HISTORY Past Medical History: Diagnosis Date Awareness under anesthesia 2014 Woke up after administration on way to procedure Chronic cholecystitis 11/29/2022 covid and DKA 05/2021 Diabetic ketoacidosis associated with type 1 diabetes mellitus (HCC) 02/22/2017 Exercise-induced asthma (HCC) Lactose intolerance Postoperative wound infection Type 1 diabetes mellitus without complication (HCC) Social History Tobacco Use Smoking status: Never Smokeless tobacco: Never Vaping Use Vaping status: Never Used Substance Use Topics Alcohol use: Not Currently Comment: Socially Drug use: Yes Frequency: 2.0 times per week Types: Marijuana Comment: Has not used any drugs other than those for medical reasons for the past 12 months FAMILY HISTORY Family History Problem Relation Name Age of Onset Drug abuse Mother Mary Melendez Asthma Father Bryan Melendez Arthritis Father Bryan Melendez Stroke Paternal Grandfather Cancer Other Stroke Other Stroke Maternal Grandmother Jackie Ashley Diabetes Sister Pj Melendez SURGICAL HISTORY Past Surgical History: Procedure Laterality Date CHOLECYSTECTOMY 11/2022 COLONOSCOPY 2016 normal EGD 2013 normal REVIEW OF SYSTEMS Review of Systems: Review [...] nursing note reviewed. Exam conducted with a entry rep present. Vitals: Estimated body mass index is 33.39 kg/m?? as calculated from the following: Height as of 03/25/25: 4' 10 . Weight as of this encounter: 159 lb 12 oz. BP: 126/72 Patient's last menstrual period was 10/30/2024. Assessment/Plan ICD-10-CM 1. Second trimester ([facility]) Z34.92 POCT urinalysis dipstick manually resulted 2. 22 weeks gestation of ([facility]) Z3A.22 3. Yeast infection B37.9 fluconazole (Diflucan) 150 MG tablet Return OB: Patient presents today for a routine obstetrics appointment. Patient is currently 22w6d . Patient states she is doing well but has complaints of being tired due to current . Patient has verbalizes frequent movement. labor precautions was discussed/given and patient was instructed to perform kick counts three times a day. Patient continues to follow closely with MFM and continues to monitor glucose per Dexacom. Orders Placed This Encounter Procedures CBC and differential POCT urinalysis dipstick manually resulted Follow Up: Patient is to return to office in 2 week for routine OB appointment. Documented by Dixie Gan NP on behalf of: Dixie Gan NP documented in this encounter Plan of Treatment DateTypeDepartmentCare Team (Latest Contact Info)Yceysfctniu12/12/2025 10:50 AM ESTRoutine [facility] [address] [place] [address] Katharine Cummins PA [address] [place] [address] NameTypePriorityAssociated DiagnosesOrder ScheduleCBC and differentialLabRoutine Second trimester ([facility]) 22 weeks gestation of ([facility]) Ordered: 04/08/2025documented as of this encounter Goals GoalPatient Goal TypeAssociated ProblemsRecent ProgressPatient-Stated?Author Reminders Care PlanOB RemindersNoOpen Scheduling, Backgrounddocumented as of this encounter Procedures Procedure NamePriorityDate/TimeAssociated DiagnosisCommentsPOCT URINALYSIS XMFHMOUPNzeeggv79/30/2025 2:07 PM EDT Second trimester ([facility]) documented in this encounter Results * (ABNORMAL) POCT urinalysis dipstick manually resulted (04/08/2025 2:07 PM EDT) ComponentValueRef RangeTest MethodAnalysis TimePerformed AtPathologist SignatureColor, UAYellowClarity, UAClearGlucose, UANegativeNegative - 2000(110) ++++ mg/dLBilirubin, UANegativeNegative - 4(70) +++ mg/dLKetones, UA NegativeNegative - 160(16) ++++ mg/dLSpec Grav, UA1.0201 - 1.03Blood, UA NegativeNegative - 50 Guy/mcLpH, UA6.05 - 9Protein, UAPositiveNegative - 2000(20) ++++ mg/dLComment:1+Urobilinogen, UA0.20.2 - 12 mg/dLLeukocytes, UA PositiveNegative - 500+++ Danny/mcLComment:3+Nitrite, UANegativeNegative - PositiveSpecimen (Source)Anatomical Location / LateralityCollection Method / VolumeCollection TimeReceived DdrpPearv92/30/2025 2:07 PM EDT Narrative Authorizing ProviderResult TypeResult StatusDixie Gan NPPOINT OF CARE TEST ENTER/EDIT ORDERABLESFinal Result documented in this encounter Visit Diagnoses Diagnosis Second trimester ([facility]) state, incidental 22 weeks gestation of ([facility]) Yeast infection documented in this encounter Additional Health Concerns Active ProblemsNoted DateDiagnosed DateOB Khxmbnwan74/24/2025 documented as of this encounter Care Teams Team MemberRelationshipSpecialtyStart DateEnd Date Dru Rodriguez DO [address] [place] [address] PCP - GeneralFamily Medicine10/22/22 Dru Rodriguez DO [address] [place] [address] PCP - Medical [place] Ryumxajete68/1/2312documented as of this encounter
--- OUTSIDE RECORDS SUMMARY | 2025-04-12 10:00 | XMS_ITS | Encounter Summary ---
Author Organization [facility] tem Address [facility] [place] [address] [place] [address] Care Team Providers Care Strategic Planning Consultant Name Role Phone JenniferDru April MUNGUIA Primary Care Provider [phone] Encounter Details DateTypeDepartmentCare Team (Latest Contact Info)Pwwlsuwldpt99/03/2025 10:00 AM ESTTelemedicine Maternal- Medicine at [facility] [address] [place] [phone] Poncho Peña MD [address] [facility], [address] [place] [address] Type 1 diabetes mellitus during in second trimester (Primary Dx); Type 1 diabetes mellitus during in first trimester Social History Tobacco UseTypesPacks/DayYears UsedDateSmoking Tobacco: NeverSmokeless Tobacco: NeverAlcohol UseStandard Drinks/WeekCommentsYes0 (1 standard drink = 0.6 oz pure alcohol)socialAH UtilitiesAnswerDate RecordedIn the past 12 months has the electric, gas, oil, or water [employer] threatened to shut off services in your [...] care, and heating?Not hard at all02/17/2025PHQ-2AnswerDate RecordedTotal Tshoc84406/12/2023[facility] [place] of Occupational Health - Occupational Stress QuestionnaireAnswerDate [...] household?No02/17/2025hildcareAnswerDate RecordedDo problems getting child care associate make it difficult for you to work [...] and direction in my life.Agree02/17/2025Estimated Date of NmnntzbcPgzjhzkwNwz91/27/2026Based on last menstrual period of 10/30/2024Sex and Gender InformationValueDate RecordedSex Assigned at AuwtsMrecwj87/22/2025 1:51 AM EDTLegal SexFemale 01/13/2015 11:58 AM EDTGender QfbdfndcYjxcdx95/22/2025 1:51 AM EDTSexual OrientationNot on filedocumented as of this encounter Progress Notes * Poncho Peña MD - 04/12/2025 10:00 AM EST REASON FOR TELEMEDICINE VIDEO OFFICE VISIT: Pre gestational type 1 diabetes on insulin pump. HISTORY OF PRESENT ILLNESS: Dalia Shaw is a pleasant 25 y.o. G 1 P0 at 23w3d due on Estimated Date of Delivery: 08/06/25 . has been complicated with Pre gestational type 1 diabetes on insulin pump. Patient uses omnipod pump for about 5 years and iscomfortable using the insulin pump. 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 Patient had multiple DKA in her life. Most recent hemoglobin A1c of 5.7 which has improved form 7.1. Patient had a recent admission to the hospital due to poor glycemic control. Insulin pump settings were changed. Most recent blood glucose within normal limits. Occasional hypoglycemic episodes. No change in insulin made today. Patient currently on low-dose aspirin therapy. Currently the patient has no complaints. The patient denies nausea, vomiting, abdominal pain, vaginal bleeding, SOB or chest pain. Patient Active Problem List Diagnosis Mild intermittent asthma DKA, type 1 ([facility]) Generalized anxiety disorder Panic disorder without agoraphobia Acute renal insufficiency Mechanical breakdown of insulin pump DKA, type 1, not at goal ([facility]) Diabetic ketoacidosis associated with type 1 diabetes mellitus ([facility]) Type 1 diabetes mellitus during in second trimester Uncontrolled type 1 diabetes mellitus with hyperglycemia, with long-term current use of insulin ([facility]) ALLERGIES: Allergies Allergen Reactions Amoxicillin Has since [...] in the morning.,Disp: 30 tablet, Rfl: 0 Past Medical History: Diagnosis Date Diabetes mellitus type I ([facility]) REVIEW OF SYSTEMS: Head and Neck: Negative for any dizziness and headaches. Cardiovascular and Respiratory System: Denies any chest pain, shortness of breath, and coughing. Abdominal and System: Denies any abdominal pain, nausea, vomiting, vaginal bleeding, and vaginal discharge RECOMMENDATION: 1. Patient with good glycemic control. 2. No change in insulin pump today. 3. Normal targeted anatomy along with echocardiography. 4. Normal maternal echocardiography. 5. Follow-up in 1 week telemedicine visit 6. Will continue follow patient. Thank you for allowing me to participate in [facility]. If there are any questions, please do not hesitate to call me. Sincerely, PONCHO PEÑA MD Video Visit via Real-time Synchronous Audiovisual Provider Location: [facility] MATERNAL- MEDICINE AT [address] [address] Patient Location: Patient's home Patient Location Auto Crane Driver: None Video Visit Consent Statement: I discussed [...] that there are some limitations compared to eykc-lc-svnw evaluations. We elected to proceed. documented in this encounter Plan of Treatment DateTypeDepartmentCare Team (Latest Contact Info)Jjqltouxvej57/05/2025 8:00 AM ESTAppointment [facility] - [facility] Imaging [address] [place] [address] 04/16/2025 2:00 PM ESTAppointment [facility] - [facility] [address] [place] [address] 04/20/2025 10:30 AM ESTTelemedicine Maternal- Medicine at [place] [address] [place] [address] Rosy Arredondo, PA-C [address] [address] documented as of this encounter Visit Diagnoses Diagnosis Type 1 diabetes mellitus during in second trimester- Primary Type 1 diabetes mellitus during in first trimester documented in this encounter Additional Health Concerns AssessmentNoted TimePHQ-9 Depression Total Score: 8:31 AM ESTA Body Mass Index follow-up plan has been documented for the ojwoefw0906/12/2023 4:35 PM ESTdocumented as of this encounter Care Teams Team MemberRelationshipSpecialtyStart DateEnd Date Dru Rodriguez DO [address] [place] [address] PCP - General01/01/17documented as of this encounter
--- OUTSIDE RECORDS SUMMARY | 2025-04-13 18:30 | XMS_ITS | Clinical Summary ---
Author Organization [facility] tem Address [facility] [address] [place] [address] Care Team Providers Care B2B Sales Manager Name Role Phone Dru Rodriguez April DO Primary Care Provider [phone] Allergies Active AllergyReactionsCriticalityNoted PymmIsigffivFmrlobejmes32/14/2016 Has since taken without reaction Medications * [...] with hyperglycemia, with long-term current use of ttypptz1602/17/2025Type 1 diabetes mellitus during in second /11/2025DKA, type 1, not at goal 01/06/2018Diabetic ketoacidosis associated with type 1 diabetes mellitus 02/22/2017Acute renal chruuqzoijxur65/11/2017Mechanical breakdown of insulin pump02/18/2017Generalized anxiety klnledrx39/25/2017Panic disorder without osfkkmglezv43/25/2017DKA, type Mild intermittent ztkshd1005/23/2016 Estimated Date of KjlzkcbrVjhpwxtjHis02/27/2026ased on last menstrual period of 10/30/2024 Resolved Problems ProblemNoted DateDiagnosed DateResolved DateCeliac disease in pediatric patient Encounters DateTypeDepartmentCare YrytDusemgozzcw03/03/2025 10:00 AM ESTTelemedicine Maternal- Medicine at [facility] [address] [place] [address] Poncho Jeffrey MD Type 1 diabetes mellitus during in second trimester (Primary Dx); Type 1 diabetes mellitus during in first tratwjhfd00/03/2025Travel 04/08/2025 1:00 PM EDTTelemedicine Maternal- Medicine at [facility] [address] [place] [address] Georgiana Esteban MD 22 weeks gestation of (Primary Dx); Type 1 diabetes mellitus complicating in second trimester, antepartum; Asthma complicating in second dwcpopfkx12/30/1125Axycao48/29/2025 Telephone Maternal- Medicine at [facility] [address] [place] [address] Carolann Urbina RN 04/06/2025Telephone Maternal- Medicine at [facility] [address] [place] [address] Carolann Urbina, BRANDT 04/05/2025Orders Only Maternal- Medicine at [facility] [address] [place] [address] Clarita Mchugh CMA 03/29/2025 10:30 AM EDTTelemedicine Maternal- Medicine at [facility] [address] [place] [address] Rosy Arredondo, LUIS ALFREDOC Type 1 diabetes mellitus during in second trimester (Primary Dx) 03/29/20254824Imxhtg66/20/2025Orders Only Maternal- Medicine at [facility] [address] [place] [address] Lula Fernandez, BRANDT 03/29/2025Orders Only Maternal- Medicine at [facility] [address] [facility] [address] Debby Garcia, BRANDT 03/24/2025Telephone Maternal- Medicine at [facility] [address] [place] [address] Maritza Milian 03/17/2025Telephone Maternal- Medicine at [facility] [address] [place] [address] Maritza Milian 03/16/2025 7:57 AM EDT - 03/16/2025 11:59 PM EDTHospital Encounter [facility] [address] [place] [address] Type 1 diabetes mellitus during in first trimester Discharge Disposition: Home03/15/2025 3:30 PM EDTTelemedicine Maternal- Medicine at [facility] [address] [facility] [place] [address] Rosy Arredondo, PASocoC Type 1 diabetes mellitus during in second trimester (Primary Dx) 03/15/2025Telephone Maternal- Medicine at [facility] [address] [facility] [place] [address] Debby Garcia, BRANDT 03/15/20255270Pgvrcb24/06/2025Orders Only Maternal- Medicine at [place] [address] [facility] [place] [address] Debby Garcia, BRANDT 03/09/2025Orders Only Maternal- Medicine at [place] [address] [place] [address] Yahaira Miller MD 03/09/2025Orders Only Maternal- Medicine at [facility] [address] [facility] [place] [address] Yue Bullock RN 03/09/2025Remote Patient Monitoring Maternal- Medicine at [facility] [address] [facility] [place] [address] Yahaira Miller MD Pre-existing type 1 diabetes mellitus with hyperglycemia during in second trimester ([facility] (Primary Dx)03/08/2025Orders Only Maternal- Medicine at [facility] [address] [place] [address] Clarita Mchugh CMA 03/03/2025 10:30 AM EDTTelemedicine Maternal- Medicine at [facility] [address] [facility] [place] [address] Carin Mathur, REGISTERED HEALTH NURSE-BRYN Uncontrolled type 1 diabetes mellitus with hyperglycemia, with long-term current use of insulin ([facility]) (Primary Dx)03/03/2025Telephone Maternal- Medicine at [facility] [address] [place] [address] Lula Fernandez, BRANDT 03/03/20251868Gopejk60/24/2025Orders Only Maternal- Medicine at [facility] [address] [place] [address] Lula Fernandez, BRANDT 02/24/2025Telephone [facility] [address] [place] [address] Radha Bruno, BRANDT Outgoing Call02/22/2025Orders Only Maternal- Medicine at [facility] [address] [facility] [place] [address] Rosy Arredondo PA-C 02/22/2025Orders Only Maternal- Medicine at [facility] [address] [place] [address] Clarita Mchugh, [facility] 02/19/2025Orders Only Maternal- Medicine at [place] [address] [place] [address] Clarita Mchugh, [facility] 02/17/2025 6:11 PM EDT - 02/22/2025 3:30 PM EDTHospital Encounter [facility] - GEN 3 Antepartum [address] [place] [address] Annamarie Dave MD Uncontrolled type 1 diabetes mellitus with hyperglycemia, with long-term current use of insulin ([facility]) Discharge Disposition: Home02/17/2025 2:30 PM EDTOffice Visit Maternal- Medicine at [place] [address] [place] [address] Yahaira Miller MD Pre-existing type 1 diabetes mellitus with hyperglycemia during in second trimester ([facility]) (Primary Dx); Uncontrolled type 1 diabetes mellitus with hyperglycemia, with long-term current use of insulin ([facility]); 15 weeks gestation of ; History of diabetic fclluofwjgmr58/10/7965Uhqlzs90/10/2025Telephone [facility] [address] [place] [address] Sharon Goins, [facility] 02/12/2025Telephone Maternal- Medicine at [place] [address] [place] [address] Odilia Dumas, RN 02/12/2025Orders Only Maternal- Medicine at [address] [address] Odilia Dumas, RN 2025Telephone [facility] [address] [place] [address] Lara Sams, BRANDT 2025Orders Only Maternal- Medicine at [facility] [address] [place] [address] Carin Mathur, REGISTERED HEALTH NURSE-LOCAL DRIVER 2025Orders Only Maternal- Medicine at [facility] [address] [place] [address] Odilia Dumas RN 02/03/2025Documentation Maternal- Medicine at [facility] [address] [place] [address] Yue Bullock, BRANDT 02/02/2025Telephone Maternal- Medicine at [facility] [address] [facility] [address] Yue Bullock, BRANDT 02/01/2025Orders Only Maternal- Medicine at [facility] [address] [place] [address] Bhumi Duval MD 02/01/2025Orders Only Maternal- Medicine at [facility] [address] [place] [address] Kimberly Romero RN Type 1 diabetes mellitus during in first trimester (Primary Dx) 02/01/20255058Nxqisd64/21/2025Telephone Maternal- Medicine at [facility] [address] [facility] [place] [address] Maritza Milian 01/26/2025Telephone Maternal- Medicine at [facility] [address] [facility] [place] [address] Maritza Milian 01/25/2025 3:30 PM EDTTelemedicine Maternal- Medicine at [facility] [address] [facility] [address] Rosy Arredondo PA-C Type 1 diabetes mellitus during in first trimester (Primary Dx) 01/25/20251676Ulkvwp37/11/2025 1:00 PM EDTOffice Visit Maternal- Medicine at [address] [address] Rosy Arredondo PA-C Type 1 diabetes mellitus during in first trimester (Primary Dx) 01/18/2025 11:30 AM EDTSupport Visit Maternal- Medicine at [address] [address] Pre-existing type 1 diabetes mellitus in in first /11/2025 10:30 AM EDTSupport Visit Maternal- Medicine at [address] [address] Katie Orozco LD Pre-existing type 1 diabetes mellitus in in first rjeuotpqr76/11/2025 Travelfrom Last 3 Months Immunizations ImmunizationAdministration DatesNext DueCOVID-19, mRNA, LNP-S, PF, 30mcg/0.3mL Dose03/21/2021,02/28/2021 Family History Medical HistoryRelationNameCommentsAsthmaFatherDiabetesMaternal GrandmotherDrug abuseMotherColon cancerPaternal GrandfatherDiabetesSisterHeart murmurSister Breast cancerNeg HxCancerNeg HxHypertensionNeg HxOvarian cancerNeg HxPancreatic cancerNeg HxProstate cancerNeg HxStrokeNeg HxUterine cancerNeg HxRelationName StatusCommentsFatherAliveMaternal GrandmotherMotherDeceasedPaternal Grandfather DeceasedSister Social History Tobacco UseTypesPacks/DayYears UsedDateSmoking Tobacco: NeverSmokeless Tobacco: Never Tobacco Cessation:Counseling Given: Not Answered Alcohol UseStandard Drinks/WeekCommentsYes0 (1 standard drink = 0.6 oz pure alcohol)socialUNIVERSITY H[facility]ITALS [facility] UtilitiesAnswerDate RecordedIn the past 12 months has the [employer], gas, oil, or water riskmethods threatened to shut off services in your [...] care, and heating?Not hard at all02/17/2025PHQ-2AnswerDate RecordedTotal Zqkmo684Finintermountain healthcare [place] of Occupational Health - Occupational Stress QuestionnaireAnswerDate [...] and direction in my life.Agree02/17/2025Estimated Date of BhwkbgtxLshnukroQvf17/27/2026Based on last menstrual period of 10/30/2024Sex and Gender InformationValueDate RecordedSex Assigned at JwyfiLblwht49/22/2025 1:51 AM EDTLegal SexFemale 01/13/2015 11:58 AM EDTGender PeaimbkeYsegif36/22/2025 1:51 AM EDTSexual OrientationNot on file Last Filed Vital Signs Vital SignReadingTime TakenCommentsBlood Jhautrmu713/61002/22/2025 8:23 AM EDT Tzjft368202/22/2025 8:23 AM HNPEjbybolmnak44.8 ??C (98.2 ??F)02/22/2025 8:23 AM EDTRespiratory Eabq087702/22/2025 8:23 AM EDTOxygen Qjnychjusm523%01/08/2025 3:26 PM EDTInhaled Oxygen Concentration--Zkwgen97.1 kg (143 lb 9.6 oz)02/17/2025 6:00 PM HECQvtpky139.3 cm (4' 9.99 )02/17/2025 6:00 PM EDTBody Mass Index30.02 02/17/2025 6:00 PM EDT Plan of Treatment DateTypeDepartmentCare Team (Latest Contact Info)Tjjzcmxljjp69/05/2025 8:00 AM ESTAppointment [facility] [address] [place] [address] 04/16/2025 2:00 PM ESTAppointment [facility] [address] [place] [address] 04/20/2025 10:30 AM ESTTelemedicine Maternal- Medicine at [facility] [address] [place] [address] Rosy Arredondo, PASocoC [address] [address] Health MaintenanceDue DateLast DoneCommentsDiabetic Ophthalmology Exam2001 Diabetic Foot Exam2019Chlamydia Twtxglztw682Adult BMI Follow Up Plan501/epression Lugdxtcbl464COVID- 19 Vaccine ( season)/11/2021, 03/21/2021, 02/28/2021SV ( or age 60+ yrs) (1 - Risk 1-dose series)6Adult BMI Eiyljpotr56/03/2025Tobacco Siecnlswe92Pap Smear /02/2025, 04/02/2022TaP,Tdap and Td Vaccines (8 - Td or Tdap) , 03/02/2013, 03/18/2008, Additional history existsInfluenza BqqodnnAauumguxo68/08/2025, 03/18/2024, 06/12/2023, Additional history exists Medical Devices ImplantedTypeAreaManufacturerDevice IdentifierShelf Expiration DateModel / Serial / LotNexplanonDescription: control implant in right upper arm Procedures Procedure NamePriorityDate/TimeAssociated DiagnosisCommentsALPHA FETOPROTEIN Hbpszeh7704/08/2025 10:01 AM EDT Encounter for supervision of normal , unspecified, second trimester B-TYPE NATRIURETIC LHAIAZBRxkiylw45/30/2025 10:01 AM EDT Type 1 diabetes mellitus during in second trimester EXTRA TUBES LAVENDER FZKJemtbns07/30/2025 9:56 AM EDT Encounter for supervision of normal , unspecified, second trimester Uncontrolled type 1 diabetes mellitus with hyperglycemia, with long-term current use of insulin ([facility]) Type 1 diabetes mellitus during in second trimester EXTRA LEMAJXhiqlyc69/30/2025 9:56 AM EDT Encounter for supervision of normal , unspecified, second trimester Uncontrolled type 1 diabetes mellitus with hyperglycemia, with long-term current use of insulin ([facility]) Type 1 diabetes mellitus during in second trimester HEMOGLOBIN E2DLxklrwt22/30/2025 9:56 AM EDT Uncontrolled type 1 diabetes mellitus with hyperglycemia, with long-term current use of insulin ([facility]) [facility] COMPREHENSIVE ANATOMIC WXAOVVScylbkv75/07/2025 9:52 AM EDT Type 1 diabetes mellitus during in first trimester BEDSIDE BLAUYSTIdosnff92/15/2025 1:59 PM EDT BEDSIDE HGAJNXVIzouilo16/15/2025 12:57 PM EDT BEDSIDE ZJSHAIIXananvr01/15/2025 11:44 AM EDT BEDSIDE QBWUNTEOdvjojh93/15/2025 11:19 AM EDT BEDSIDE KOJKHMUPwdckyj95/15/2025 10:59 AM EDT BEDSIDE PPQNDOMCyoxjav66/15/2025 9:11 AM EDT BEDSIDE XRHLIBSRsohypg59/15/2025 5:47 AM EDT BEDSIDE FTRYPDJZmerigx30/15/2025 3:08 AM EDT BEDSIDE ZHXDDHJYagoadm56/15/2025 12:37 AM EDT BEDSIDE PJKSACNUvvbcrz25/15/2025 12:16 AM EDT BEDSIDE JSLQYNIAowjzop16/14/2025 9:46 PM EDT BEDSIDE YTLGQWEWnmaeet01/14/2025 9:25 PM EDT BEDSIDE BFORWIBHyrhhby21/14/2025 7:21 PM EDT BEDSIDE OYREAWGGlbpkct83/14/2025 6:15 PM EDT BEDSIDE GOEEMFZIkjuhsh26/14/2025 5:42 PM EDT BEDSIDE YMAUMSDUjrarpo04/14/2025 5:24 PM EDT BEDSIDE ZNZSHKNZvguqga06/14/2025 5:08 PM EDT BEDSIDE NGXUDCJEsgobxn22/14/2025 3:19 PM EDT BEDSIDE FHWSUAZYuooxcl00/14/2025 2:49 PM EDT BEDSIDE VMRLRSIYuzqsua57/14/2025 1:40 PM EDT BEDSIDE YJCBNXKOaolngs90/14/2025 10:19 AM EDT BEDSIDE LDQAZGFBegicwp87/14/2025 9:08 AM EDT BEDSIDE PKPVDCLMklwhmt69/14/2025 6:15 AM EDT BEDSIDE IEGWRMEPkigccr54/14/2025 3:17 AM EDT BEDSIDE TLVWSXDFblevst53/14/2025 12:03 AM EDT BEDSIDE PNKFKXSArtoqtr19/13/2025 9:10 PM EDT BEDSIDE OHJULZXRlwasma81/13/2025 7:46 PM EDT BEDSIDE VKCUAZPVnjvhgy38/13/2025 7:27 PM EDT BEDSIDE RBKPYBVTyybqmy56/13/2025 6:17 PM EDT BEDSIDE ILINOFJCaodacl33/13/2025 5:11 PM EDT BEDSIDE MKWCYNDBrdbztp89/13/2025 2:22 PM EDT BEDSIDE LLJAFMOUrbfgsf22/13/2025 1:21 PM EDT BEDSIDE NIBTDHUEnzffhk24/13/2025 10:24 AM EDT BEDSIDE SMIRCRQHahhidh58/13/2025 9:12 AM EDT BEDSIDE GCMHLEPExxeydt04/13/2025 8:22 AM EDT BEDSIDE SYKAOHZMttusnx89/13/2025 7:40 AM EDT BEDSIDE KGEBVCHGarqtlj92/13/2025 6:01 AM EDT BEDSIDE EAOGPDIImietbt79/13/2025 2:57 AM EDT BEDSIDE FWZHYMRGmfyldl65/12/2025 11:57 PM EDT BEDSIDE NMABUAASqoctxa85/12/2025 9:25 PM EDT BEDSIDE IKROSKEXxzojtk80/12/2025 8:58 PM EDT BEDSIDE JGPYUPSGcknlhi87/12/2025 6:52 PM EDT BEDSIDE CTOKUMWFosqegu52/12/2025 5:51 PM EDT BEDSIDE NECDKTWIuhdyhp83/12/2025 2:42 PM EDT BEDSIDE RGIQOIZVdrykzu72/12/2025 1:38 PM EDT BEDSIDE WMOCNRPFdtlyxg48/12/2025 1:16 PM EDT BEDSIDE IAXCTTJCtiqwlq96/12/2025 12:55 PM EDT BEDSIDE CQXCQKHPrvhsdl93/12/2025 12:34 PM EDT BEDSIDE RAAQZJKKotneci39/12/2025 9:55 AM EDT BEDSIDE JKOMZSTJkpnlvf23/12/2025 8:53 AM EDT PROTEIN, URINE, 24 VDXAKjxcvrk40/12/2025 6:57 AM EDT BEDSIDE DGUTWELSoirxyr92/12/2025 5:27 AM EDT BEDSIDE IRBJEJTNpfkynx30/12/2025 4:51 AM EDT BEDSIDE BTKMDKNQcdxykk68/12/2025 3:14 AM EDT BEDSIDE CJRTIPSFgdymse31/12/2025 12:01 AM EDT BEDSIDE JNMMPBVLbymveb27/11/2025 9:04 PM EDT BEDSIDE ESKZAWTPbbwgzc77/11/2025 7:02 PM EDT BEDSIDE GJGKJYOWwxdnqi98/11/2025 5:53 PM EDT BEDSIDE MXZHZUSLhwtese59/11/2025 2:42 PM EDT ECG 12-AKTLXjlmslm64/11/2025 10:54 AM EDT BEDSIDE VXRDYNGQbfxmud46/11/2025 10:37 AM EDT BEDSIDE JNAGZLDJhbyeqh81/11/2025 10:11 AM EDT BEDSIDE TOHXNZTHfbndtb35/11/2025 9:34 AM EDT EXTRA TUBES LAVENDER WELVcllcwu96/11/2025 8:20 AM EDT EXTRA EBLWBCfwhsjf69/11/2025 8:20 AM EDT URIC ACIDAdd-On02/18/2025 8:20 AM EDT LDHAdd-On02/18/2025 8:20 AM EDT BEDSIDE YRFNEBBJvxtwgf09/11/2025 6:03 AM EDT BEDSIDE ZIMONQMHutkiwn52/11/2025 2:47 AM EDT BEDSIDE RHPABRCLgclwae62/11/2025 2:26 AM EDT BEDSIDE ZNNEBYOWzdkvwp42/11/2025 2:06 AM EDT BEDSIDE THEFOIQLxmlrxr41/10/2025 9:45 PM EDT JJVFIGZRXAXCIX80/10/2025 7:25 PM EDT URINE HYLQIYAZVAI50/10/2025 7:25 PM EDT EXTRA TUBES SST DXVHywsuty30/10/2025 7:17 PM EDT EXTRA MKIZJLsospfu27/10/2025 7:17 PM EDT CBC WITH AUTO AQCCRREDUZIKTXSG65/10/2025 7:17 PM EDT ACETONE,(BETAHYDROXYBUTYRATE, KETONE) QUANTITATIVE HTHTGTtazcwj91/10/2025 7:16 PM EDT COMPREHENSIVE METABOLIC NMAGABARZ47/10/2025 7:16 PM EDT BEDSIDE SYDBPOGXwyjthg66/10/2025 7:15 PM EDT PAP GBCLVEkusuyf54/24/2022 10:35 AM EDT Cervical smear, as part of routine gynecological examination CHLAMYDIA/GC BY PCR OMAIRA XRTSWjzzhpa51/11/2022 6:33 PM EDT Menorrhagia with irregular cycle Metrorrhagia DUB (dysfunctional uterine bleeding) from Last 3 Months or Most Recently Relevant to Health Maintenance Results * (ABNORMAL) Alpha fetoprotein (04/08/2025 10:01 AM EDT)ComponentValueRef Range Test MethodAnalysis TimePerformed AtPathologist SignatureALPHA OGHJYBTQFYP41.3 (H)<=9.9 ng/mL04/08/2025 1:25 PM [facility] Specimen (Source)Anatomical Location / LateralityCollection Method / Volume Collection TimeReceived TimeBloodVenous blood / UnknownVenipuncture / Unknown 04/08/2025 10:01 AM EDT1 10:01 AM EDT Narrative Authorizing ProviderResult TypeResult StatusAmy L Maria G PALAB BLOOD ORDERABLES Final ResultPerforming OrganizationAddressCity/State/ZIP CodePhone Number [facility] [address] [place] [address], * B-type natriuretic peptide (04/08/2025 10:01 AM EDT)ComponentValueRef Range Test MethodAnalysis TimePerformed AtPathologist KbtbphtjbHYD02<=100 pg/mL 04/08/2025 11:24 AM [facility] Anatomical Location / LateralityCollection Method / VolumeCollection Time Received TimeBloodVenous blood / UnknownVenipuncture / Xmkstod6904/08/2025 10:01 AM EDT1 10:01 AM EDT Narrative Authorizing ProviderResult TypeResult StatusColleen E Lavoy PA-CLAB BLOOD ORDERABLESFinal ResultPerforming OrganizationAddressty/State/ZIP CodePhone Number [facility] [address] [place] [address], * Lavender Top (04/08/2025 9:56 AM EDT) Only the most recent of2 resultswithin the time period is included. ComponentValueRef RangeTest MethodAnalysis TimePerformed AtPathologist Signature Extra TubeAuto Ugtzmvzo27/30/2025 11:01 AM [facility] (Source)Anatomical Location / LateralityCollection Method / VolumeCollection TimeReceived TimeBloodVenous blood / Gwyxppj4104/08/2025 9:56 AM EDT1 10:14 AM EDT Narrative Authorizing ProviderResult TypeResult StatusColleen E Lavoy PA-NICHOLAS BLOOD ORDERABLESFinal ResultPerforming OrganizationAddressCity/State/ZIP CodePhone Number [facility] [address] [place] [address], [place] * Hemoglobin A1c (04/08/2025 9:56 AM EDT)ComponentValueRef RangeTest Method Analysis TimePerformed AtPathologist SignatureHEMOGLOBIN A1C5.14.4 - 5.6 % 04/08/2025 1:25 PM [facility] LABORATORYComment: ?ADA Guidelines ?Result ?HgbA1c ? Normal : ? less than 5.7 % ? Prediabetes : ?5.7 % ??to 6.4 % Diabetes : > 6.4 % ?Use with caution in patients with abnormal hemoglobin variants as ??the half-life of red blood cells and in vivo glycation rates are ??affected. EST. AVERAGE PUQNWNB861fc/dL04/08/2025 1:25 PM [facility]ATORYSpecimen (Source)Anatomical Location / LateralityCollection Method / VolumeCollection TimeReceived TimeBloodVenous blood / Nvifdba1704/08/2025 9:56 AM EDT1 10:14 AM EDT Narrative Authorizing ProviderResult TypeResult StatusCarin Mathur APRN-CNPLAB BLOOD ORDERABLESFinal ResultPerforming OrganizationAddressCity/State/ZIP CodePhone Number [facility] [address] [place] [address], [place] [phone] * [facility] COMPREHENSIVE ANATOMIC SURVEY (03/16/2025 9:52 AM EDT)Anatomical RegionLateralityModalityOB-GYNUltrasoundSpecimen (Source)Anatomical Location / LateralityCollection Method / VolumeCollection TimeReceived Time03/16/2025 8:09 AM EDT Narrative 03/16/2025 2:47 PM EDT NAME: ??DARREN ART : 2000 SEX: F Accession Number: [id number] ORDERING PHYSICIAN: ROSY ARREDONDO REFERRING PHYSICIAN: BRYANT PULLIAM Coding Procedures ? 03685: Ultrasound, uterus, real time with image documentation, and maternal evaluation ? plus detailed anatomic examination, transabdominal approach;single or first gestation ? 91736: Ultrasound, uterus, real time with image documentation, transvaginal ? 97362: 3D rendering with interpretation and reporting of [...] View: Suboptimal view: limited by position. Medical Railroad Track Repair Supervisor Railroad Track Repair Supervisor declined De [place] . Number of [...] (oz) ? 10 oz EFW by: ?Hadlock (JUI-JL-TF-FL) Extended Tibia ??25.1 mm 18w 6d 33% Randolph Pipe Line Walker ? 6.5 mm CM ? 3.4 mm [...] adequately visualized: Heart / Thorax 4-chamber view. 5-qvdirl-zfhfmtx view. ? Diaphragm. The following structures could [...] view ?not examined 3-vessel view ??not examined 5-zsptxk-sigplwb view ??suboptimal Aortic arch view ? not [...] primary OB provider unless otherwise specified by [facility]. Results forwarded to ordering provider so they can follow up with the patient as necessary. Procedure Note Yahaira Miller MD - 03/16/2025 NAME: DARREN ART : 2000 SEX: F Accession Number: [id number] ORDERING PHYSICIAN: ROSY ARREDONDO REFERRING PHYSICIAN: BRYANT PULLIAM Coding Procedures 94989: Ultrasound, uterus, real time with image documentation, and maternal evaluation plus detailed anatomic examination, transabdominalapproach;single or first gestation 91465: Ultrasound, uterus, real time with imagedocumentation, transvaginal 63545: 3D rendering with interpretation and reporting of [...] examination. View: Suboptimalview: limited by position. Medical Railroad Track Repair Supervisor Railroad Track Repair Supervisor declined De La Rosa . Number of [...] EFW (oz) 10 oz EFW by: Hadlock (KKH-YS-PU-FL) Extended Tibia 25.1 mm 18w 6d 33% Randolph Pipe Line Walker 6.5 mm CM 3.4 mm 9% Nicolaides [...] adequately visualized: Heart / Thorax 4-chamber view. 5-vzstqt-jjoyhzs view. Diaphragm. The following structures could not [...] view not examined 3-vessel view not examined 4-hsuleq-hyogwpt view suboptimal Aortic arch view not examined [...] byprimary OB provider unless otherwise specified by M. [...] Glucose (POC)9265 - 99 mg/dL02/22/2025 2:04 PM [facility] LABORATORYSpecimen (Source)Anatomical Location / LateralityCollection Method / VolumeCollection TimeReceived Timearterial/alkfmettg01/15/2025 1:59 PM EDT 02/22/2025 2:04 PM EDT Narrative Authorizing ProviderResult TypeResult Jennifer Dave MDPOINT OF CARE TEST ORDERABLESFinal ResultPerforming OrganizationAddressCity/State/ZIP CodePhone Number [facility] [address] [place] [address], [place] * (ABNORMAL) Protein, urine, 24 hour (02/19/2025 6:57 AM EDT)ComponentValueRef RangeTest MethodAnalysis TimePerformed AtPathologist SignatureURINE TOTAL [id number](H)0 - 150 mg/24h02/19/2025 8:29 AM [facility] TOT VOLUME - 24H URINE2,2976602/19/2025 8:29 AM [facility] LABORATORYSpecimen (Source)Anatomical Location / LateralityCollection Method / VolumeCollection TimeReceived GotfCwknv43/12/2025 6:57 AM EDT 02/19/2025 7:44 AM EDT Narrative Authorizing ProviderResult TypeResult StatusLaura Deshpande DOURINE ORDERABLES Final ResultPerforming OrganizationAddressCity/State/ZIP CodePhone Number [facility] [address] [place] [address], [place] [phone] * ECG 12 lead (02/18/2025 10:54 AM EDT)Specimen (Source)Anatomical Location / LateralityCollection Method / VolumeCollection TimeReceived Time02/18/2025 10:54 AM EDT Narrative TRACEMASTERVUE - 02/18/2025 11:28 AM EDT Authorizing ProviderResult TypeResult StatusLaura Deshpande DOECG ORDERABLES Final ResultPerforming OrganizationAddressty/State/ZIP CodePhone Number TRACEMASTERVUE * LDH (02/18/2025 8:20 AM EDT)ComponentValueRef RangeTest MethodAnalysis Time Performed AtPathologist IzqlgppkuWMC577461 - 235 U/L02/18/2025 9:04 AM EDT [facility]ATORYSpecimen (Source)Anatomical Location / LateralityCollection Method / VolumeCollection TimeReceived TimeBloodVenous blood / UnknownVenipuncture / Orfkjnh7902/18/2025 8:20 AM EDT02/18/2025 8:31 AM EDT Narrative Authorizing ProviderResult TypeResult StatusLaura Deshpande DOLAB BLOOD ORDERABLESFinal ResultPerforming OrganizationAddressCity/State/ZIP CodePhone Number [facility] [address] [place] [id number], * Uric acid (02/18/2025 8:20 AM EDT)ComponentValueRef RangeTest MethodAnalysis TimePerformed AtPathologist SignatureURIC ACID3.12.6 - 7.2 mg/dL02/18/2025 9:04 AM [facility] LABORATORYSpecimen (Source)Anatomical Location / LateralityCollection Method / VolumeCollection TimeReceived Time BloodVenous blood / UnknownVenipuncture / Hlnaimd2202/18/2025 8:20 AM EDT 02/18/2025 8:31 AM EDT Narrative Authorizing ProviderResult TypeResult StatusLaura Deshpande DOLAB BLOOD ORDERABLESFinal ResultPerforming OrganizationAddressty/State/ZIP CodePhone Number [facility] [address] [place] [address], * (ABNORMAL) Urinalysis (02/17/2025 7:25 PM EDT)ComponentValueRef RangeTest MethodAnalysis TimePerformed AtPathologist SignatureCOLORYellowYellow 02/17/2025 8:09 PM [facility] LABORATORYTURBIDITYHazy(A)Clear 02/17/2025 8:09 PM [facility] LABORATORYSPECIFIC GRAVITY1.025 1.003 - 1.2003502/17/2025 8:09 PM [facility] LABORATORYNITRITE XgujludfHlsmlxxi12/10/2025 8:09 PM [facility] PH,URINE6.05.0 - 8.509 8:09 PM [facility] LEUKOCYTE ESTERASELarge(A)Fqrivtca07/10/2025 8:09 PM [facility] KEYQCOBVVMYMILBWRTwmzseihLgsrdqno50/10/2025 8:09 PM [facility] LABORATORYKETONES (URINE)60 mg/dL(A)Rmzxkovf86/10/2025 8:09 PM EDT [facility] LABORATORYUROBILINOGEN<1.1 eu/dL<1.1 eu/dL02/17/2025 8:09 PM [facility] LABORATORYBILIRUBIN (URINE)Negative Eydmdtxn92/10/2025 8:09 PM [facility] LABORATORYBLOOD/HGB UovjrgdwJhshudyf57/10/2025 8:09 PM [facility] MUCOUSPresent(A)None02/17/2025 8:09 PM [facility] R.B.CELLS00 - 8:09 PM [facility] SQUAMOUS NJBNUXVQZM03(H)0 - 8:09 PM [facility] LABORATORYW.B.CELLS57(H)0 - 8:09 PM [facility] LABORATORYGLUCOSE (URINE)VjdzztqrFkexqhoy49/10/2025 8:09 PM [facility] LABORATORYSpecimen (Source)Anatomical Location / Laterality Collection Method / VolumeCollection TimeReceived TimeUrineUrine specimen collection, clean catch / Fhhtkfi8902/17/2025 7:25 PM EDT02/17/2025 7:54 PM EDT Narrative Authorizing ProviderResult TypeResult StatusJessnatalee CALLAWAY ORDERABLESFinal ResultPerforming OrganizationAddressCity/State/ZIP CodePhone Number [facility] [address] [place] [address], * Urine Culture Urine, Clean Catch Midstream (02/17/2025 7:25 PM EDT)Component ValueRef RangeTest MethodAnalysis TimePerformed AtPathologist SignatureCULTURE GZLUPDF68-08,000 ORGANISMS/mL NORMAL UROGENITAL FLORA02/18/2025 4:53 PM EDT [facility] LABORATORYSpecimen (Source)Anatomical Location / LateralityCollection Method / VolumeCollection TimeReceived TimeUrineUrine specimen collection, clean catch / Ygabczl6902/17/2025 7:25 PM EDT02/17/2025 7:54 PM EDT Narrative [facility] - 02/18/2025 4:53 PM EDT Urine received without preservative - delays in transport may affect results. Interpret with caution and clinical correlation is recommended. Authorizing ProviderResult TypeResult StatusJejac Zaidi MDMICROBIOLOGY - GENERAL ORDERABLESFinal ResultPerforming OrganizationAddressCity/State/ZIP CodePhone Number [facility] [address] [place] [address], [place] [phone] * SST TOP (02/17/2025 7:17 PM EDT)ComponentValueRef RangeTest MethodAnalysis TimePerformed AtPathologist SignatureExtra TubeAuto Bpjritzf99/10/2025 9:01 PM [facility] LABORATORYSpecimen (Source)Anatomical Location / LateralityCollection Method / VolumeCollection TimeReceived TimeBloodVenous blood / Cosnixv4202/17/2025 7:17 PM EDT02/17/2025 7:28 PM EDT Narrative Authorizing ProviderResult TypeResult StatusAnnamarie Dave MDLAB BLOOD ORDERABLES Final ResultPerforming OrganizationAddressCity/State/ZIP CodePhone Number [facility] [address] [place] [address], * (ABNORMAL) CBC auto differential (02/17/2025 7:17 PM EDT)ComponentValueRef RangeTest MethodAnalysis TimePerformed AtPathologist TeqbudmtrEZN41.0(H)4 - 11 x10E9/L02/17/2025 7:37 PM [facility] LABORATORYRBC Count4.30 3.8 - 5.2 X10E12/L02/17/2025 7:37 PM [facility] Mfudaknxwz21.811.7 - 15.5 g/dL02/17/2025 7:37 PM [facility] NVRXYGXLUKGhfyxxvxov25.535 - 47 %02/17/2025 7:37 PM [facility] JGUPESGQPKILV3023 - 100 fL02/17/2025 7:37 PM [facility] YEOLBGFKWMRQU98.727 - 34 pg02/17/2025 7:37 PM [facility] PZRDVGJTIHASUW36.032 - 36 g/dL02/17/2025 7:37 PM [facility] WLYMEXRTQNQNB92.411.5 - 15 %02/17/2025 7:37 PM [facility] LABORATORYPlatelet Jikxd321818 - 450 X10E9/L02/17/2025 7:37 PM [facility] LABORATORYMPV8.37 - 12 fL02/17/2025 7:37 PM [facility] LABORATORYNeutrophils %74.7%02/17/2025 7:37 PM [facility] LABORATORYLymphocytes %19.9%02/17/2025 7:37 PM [facility] LABORATORYMonocytes %4.6%02/17/2025 7:37 PM [facility] LABORATORYEosinophils %0.6%02/17/2025 7:37 PM [facility] LABORATORYBasophils %0.2%02/17/2025 7:37 PM [facility] LABORATORYNeutrophils Absolute (A)10.5(H)1.5 - 6.6 10*3/uL 02/17/2025 7:37 PM [facility] LABORATORYLymphocytes Absolute 2.81.0 - 3.5 10*3/uL02/17/2025 7:37 PM [facility] Monocytes Absolute0.60.0 - 0.9 10*3/uL02/17/2025 7:37 PM [facility] LABORATORYEosinophils Absolute0.10.0 - 0.4 10*3/uL02/17/2025 7:37 PM [facility] LABORATORYBasophils Absolute0.00.0 - 0.2 10*3/uL 02/17/2025 7:37 PM [facility] LABORATORYDifferential Type AUTOMATED DACYDLIWXMVH78/10/2025 7:37 PM [facility] LABORATORYSpecimen (Source)Anatomical Location / LateralityCollection Method / VolumeCollection TimeReceived TimeBloodVenous blood / UnknownVenipuncture / Bgnwmvp6202/17/2025 7:17 PM EDT09/03/2025 7:27 PM EDT Narrative Authorizing ProviderResult TypeResult StatusCriselda Zaidi [facility] BLOOD ORDERABLESFinal ResultPerforming OrganizationAddressCity/State/ZIP CodePhone Number [facility] [address] [place] [address], * Acetone, (BetaHydroxybutyrate, Ketone) quantitative, serum (02/17/2025 7:16 PM EDT)ComponentValueRef RangeTest MethodAnalysis TimePerformed AtPathologist SignatureBETAHYDROXYBUTYRATE0.160.02 - 0.27 mmol/L02/17/2025 8:05 PM [facility] LABORATORYSpecimen (Source)Anatomical Location / Laterality Collection Method / VolumeCollection TimeReceived TimeBloodVenous blood / UnknownVenipuncture / Lbtmdfo4602/17/2025 7:16 PM EDT02/17/2025 7:27 PM EDT Narrative Authorizing ProviderResult TypeResult StatusCriselda Zaidi [facility] BLOOD ORDERABLESFinal ResultPerforming OrganizationAddressCity/State/ZIP CodePhone Number [facility] [address] [place] [address], * (ABNORMAL) Comprehensive metabolic panel (02/17/2025 7:16 PM EDT)Component ValueRef RangeTest MethodAnalysis TimePerformed AtPathologist SignatureSODIUM 839370 - 146 mmol/L02/17/2025 8:05 PM [facility] POTASSIUM3.53.5 - 5.0 mmol/L02/17/2025 8:05 PM [facility] QZVLRXUXRSEKFHNPHF43776 - 109 mmol/L02/17/2025 8:05 PM [facility] LABORATORYCARBON RVSNJAW4621 - 32 mmol/L02/17/2025 8:05 PM [facility] LABORATORYANION GAP85 - 15 mmol/L02/17/2025 8:05 PM EDT [facility] LABORATORYBLOOD UREA GIZCFHHK452 - 23 mg/dL02/17/2025 8:05 PM [facility] LABORATORYCREATININE0.630.40 - 1.00 mg/dL 02/17/2025 8:05 PM [facility] LABORATORYComment:METHOD TRACEABLE TO IDMS NXSZBPMKUPQTVHG626(H)65 - 99 mg/dL02/17/2025 8:05 PM EDT [facility] LABORATORYCALCIUM8.58.5 - 10.5 mg/dL02/17/2025 8:05 PM [facility] LABORATORYTOTAL PROTEIN7.16.0 - 8.0 g/dL 02/17/2025 8:05 PM [facility] LABORATORYALBUMIN3.83.2 - 5.3 g/dL02/17/2025 8:05 PM [facility] LABORATORYALKALINE OEBWUVNRCSC9796 - 130 U/L02/17/2025 8:05 PM [facility] DTRIJKCAGJPAZ96<=41 U/L02/17/2025 8:05 PM [facility] LDKUUTBSDSLPV64<=31 U/L02/17/2025 8:05 PM [facility] LABORATORYBILIRUBIN,TOTAL0.2(L)0.3 - 1.2 mg/dL02/17/2025 8:05 PM [facility] LABORATORYEGFR Non-Race Dependent>90>=60 ml/min/1.73sq.m 02/17/2025 8:05 PM [facility] LABORATORYComment: Reported eGFR is based on the CKD-EPI 2020 equation that does not use a race coefficient. Specimen (Source)Anatomical Location / LateralityCollection Method / Volume Collection TimeReceived TimeBloodVenous blood / UnknownVenipuncture / Unknown 02/17/2025 7:16 PM EDT02/17/2025 7:27 PM EDT Narrative Authorizing ProviderResult TypeResult StatusJessnatalee Zaidi MDLAB BLOOD ORDERABLESFinal ResultPerforming OrganizationAddressCity/State/ZIP CodePhone Number [facility] [address] [place] [address], * Pap Smear (04/02/2022 10:35 AM EDT)Specimen (Source)Anatomical Location / LateralityCollection Method / VolumeCollection TimeReceived Time10/ 10:35 AM EDT1 10:37 AM EDT Narrative COPATH - 04/12/2022 12:17 PM EDT [facility] ? [address] [place] [address] ? [place] [address] ? Gynecologic Cytology Consultation ? Patient Name:KAELYN BANKS:2000 (Age: 22)Gender:FTaken:04/02/2022eported:04/12/2022hysician(s):PHILLIP Pink ([phone])Copy To: Rec. #:[id number]: #[id number] Final Cytologic Interpretation ThinPrep Pap Test (Cervical): Satisfactory for evaluation. A transformation zone component is present. NEGATIVE FOR INTRAEPITHELIAL LESION OR MALIGNANCY. ?? jja/04/12/2022 Interpretation performed at [facility], [address] [place] [address], License number: [id number]. Electronically Signed Out By ?JORGE Olson(ASCP) Date of Last Menstrual Period: ? 02/28/22 Other Clinical Conditions: Z01.419 Investor Relations Coordinator exam wo/abn findings Source of Specimen ??ThinPrep Pap Test (Cervical) ? Thin Prep Pap ([employer]) Fee Code(s): ?? G0145 Authorizing ProviderResult TypeResult Elsa CASTELLANOLOCAL DRIVER PATHOLOGY/CYTOLOGY ORDERABLESFinal ResultPerforming OrganizationAddress City/State/ZIP CodePhone Number [facility] * Chlamydia/GC by PCR Omaira Swab (03/20/2022 6:33 PM EDT)ComponentValueRef Range Test MethodAnalysis TimePerformed AtPathologist SignatureSpecimen sourceCERVIX 03/20/2022 9:54 PM [facility] LABComment:Corrected on 03/20 AT 2154: Previously reported as SWABChlamydia DNA PCRNegativeNegative^Negative 03/21/2022 12:54 PM [facility] LABComment: ? Chlamydia trachomatis not detected by nucleic acid amplification. This does not exclude the possibility of infection because results are dependent on adequate specimen collection. ? Gonorrhea DNA PCRNegativeNegative^Gvyhivgl03/12/2022 12:54 PM [facility] LABComment: ? Neisseria gonorrhoeae not detected by nucleic acid amplification. This does not exclude the possibility of infection because results are dependent on adequate specimen collection. ? Specimen (Source)Anatomical Location / LateralityCollection Method / Volume Collection TimeReceived JflaMSFT57/11/2022 6:33 PM EDT1 9:50 PM EDT Narrative Authorizing ProviderResult TypeResult StatusCorie Travis Seaman MDMICROBIOLOGY - GENERAL ORDERABLESEdited Result - FinalPerforming OrganizationAddress City/State/ZIP CodePhone Number [facility] [address] [place] [address] from Last 3 Months or Most Recently Relevant to Health Maintenance Insurance MemberSubscriberPlan / Payer (Effective 2024-Present)Name:Kaelyn Banks Relation to Subscriber:SelfName:Kaelyn Banks Payer ID:Not on file Type:Not on file Address: [facility] [address] [place] [id number] Advance Directives * Full Code (Latest Code Status on File) Date ActivatedDate InactivatedComments02/17/2025 6:35 PM02/22/2025 6:48 PM * Full Code Date ActivatedDate NrlikgyfuwjGttczjoj47/27/2021 4:55 PM06/08/2021 4:33 PM * Full Code Date ActivatedDate InactivatedComments01/07/2018 6:44 AM01/07/2018 2:17 PM * Full Code Date ActivatedDate InactivatedComments10/23/2016 11:27 AM10/24/2016 12:42 PM * Full Code Date ActivatedDate InactivatedComments08/01/2016 12:52 AM08/01/2016 4:47 PM Care Teams Team MemberRelationshipSpecialtyStart DateEnd Date Dru Rodriguez DO [address] [place] [address] [facility]01/01/17
--- OUTSIDE RECORDS SUMMARY | 2025-04-13 18:31 | XMS_ITS ---
Author Organization [facility] Address [address] [place] [address] Care Team Providers Care Vacuum Pan Operator Name Role Phone Dru Rodriguez DO Primary Care Provider [phone] Dru Rodriguez DO Unavailable [phone] Emergency Department Transitional Care Management (TCM) Status:Closed (Closed) Start date:04/06/2025 Enrollment date:04/08/2025 Enrollment reason:Identified using hospital discharge data End date:04/08/2025 Close reason:Assistance not needed Overview Discharged from [facility] ER on 04/06. Please contact within 2 days of discharge for ERTOC and schedule a follow-up appointment if needed. <April 08, 2025, 11:00 - Aline Dudley RN> er monty done, assistance not needed Continued Care and Services Coordination
--- OUTSIDE RECORDS SUMMARY | 2025-04-13 18:31 | XMS_ITS | Clinical Summary ---
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 Use as instructed 1 each 3Active insulin glargine (Lantus SoloStar) 100 UNIT/ML pen Indications:Type 1 diabetes mellitus without complication (HCC)inject 22 units subcutaneously once daily 3 mL 4Active Insulin Disposable Pump (Omnipod 5 GgsZ7E8 Pods Gen 5) misc Indications:Type 1 diabetes mellitus without complication (HCC)Inject 1 each under the skin every 3 (three) days CHANGE POD EVERY 3 DAYS DIRECTED 30 each 5Active HumaLOG 100 UNIT/ML solution Indications:Type 1 diabetes mellitus without complication (HCC)USE PER INSULIN PUMP INSTRUCTION MAX OF 80 UNITS DAILY 30 mL 5Active Vit w/Br-Krbsrtosl-AC (PNV PO) Take by mouthActive Acetone, Urine, Test (Ketone Test) strip check urine FOR ketones with blood glucose greater THAN 250 mg/dLActive aspirin 81 MG EC tablet Take 81 mg by mouth in the morning.5Active cholecalciferol (Vitamin D-3) 1.25 MG (54326 UT) capsule every week5Active Continuous Glucose Sensor (Dexcom G7 Sensor) misc USE WITH OMNIPOD 5 TO MANAGE BLOOD SUGARS AND CHANGE EVERY 10 DAYS01/21/2025 Active doxylamine (Unisom) 25 MG tablet Take 25 mg by mouth 4 (four) times a day as htsptt9701/08/2025tive Baqsimi One Pack 3 MG/DOSE nasal powder Use to treat unresponsive kjjvhsmdemyh61/11/2025tive OneTouch Ultra Test test strip USE 1 STRIP TO CHECK GLUCOSE 4 TIMES DAILY10/14/2024tive ondansetron ODT (Zofran-ODT) 4 MG disintegrating tablet DISSOLVE 1 TABLET UNDER THE TONGUE EVERY 8 HOURS NEEDED FOR NAUSEA for up to 10 doses01/08/2025tive promethazine (Phenergan) 25 MG tablet Take 25 mg by mouth every 6 (six) hours if dsrjly9301/08/2025tive pyridoxine (Vitamin B-6) 100 MG tablet Take 100 mg by mouth in the morning.Active psyllium (Metamucil) 400 MG capsule DailyDiscontinued fluconazole (Diflucan) 150 MG tablet Indications:Yeast infectionTake 1 tablet (150 mg) by mouth 1 (one) time for 1 dose This is a 1 time dose, take single tablet by mouth. 1 tablet Expired Active Problems ProblemNoted DateDiagnosed DateHypoglycemia associated with rinvvnfc52/30/2025 Mixed obsessional thoughts and acts4PTSD (post-traumatic stress disorder)09/06/2023Type 1 diabetes mellitus without htcpyfkwifked30/28/2023 Assessment & Plan (03/11/2024 7:46 PM EDT): [...] with hypoglycemia and without coma02/04/2023ulging lumbar disc11/08/2022hronic vhmpwyd5111/08/2022Lumbago with sciatica, left side 11/08/20228491Wkvoxjed41/01/2023iliary jphsbcokln98/01/2023eneralized anxiety kxnspfly22/25/2017Panic disorder without jezznnedzhw04/25/2017Celiac disease in pediatric yyqducp8405/23/2016Mild intermittent rniuzh7405/23/2016Diabetes type 1, yldhrffwem13/18/2011Estimated Date of UuqxmvftBizzrexoYie77/27/2026ased on last menstrual period of 10/30/2024 Resolved Problems ProblemNoted DateDiagnosed DateResolved DateChronic wdyqcithxhyvw43/22/2023 08/05/2023lood adflede97Hypoglycemia due to type 1 diabetes gzyqxhvx50Other chronic painRight upper quadrant painiabetic ketoacidosis associated with type 1 diabetes kpdhavhs62cute renal admwajtjtglzb96/11/2017 08/05/2023Mechanical breakdown of insulin pumpType 1 diabetes mellitus with ketoacidosis without coma Encounters DateTypeDepartmentCare RqtlLwqsbkxgypd04/30/2025 1:50 PM EDTRoutine [facility] [address] [place] [address] Katharine Cummins PA Second trimester ([facility]); 22 weeks gestation of ([facility]); Yeast apsykjzux01/30/2025[facility] [address] [place] [address] Aline Dudley RN 03/30/2025Orders Only [facility] [address] [place] [address] Kristopher Calvo, OD 03/25/2025 8:45 AM EDTOffice Visit [facility] [address] [place] [address] Dru Rodriguez, Routine general medical examination at a health care facility (Primary Dx); Generalized anxiety disorder; Celiac disease in pediatric patient ([facility]); Mild intermittent asthma, unspecified whether complicated ([facility])03/25/2025Orders Only [facility] [address] [place] [address] Dru Rodriguez, DO 03/25/2025Telephone [facility] [address] [place] [address] Lesa Boss LPN 03/25/2025amboo flowsheet [facility] [address] [place] [address] Dru Rodriguez, DO 03/25/20257084Laacol90/14/2025 8:50 AM EDTRoutine [facility] [address] [facility] [place] [address] Kolton Cao, DO Second trimester ([facility]); 20 weeks gestation of ([facility]); Type 1 diabetes mellitus during , antepartum ([facility])03/23/2025 Abstract [facility] [address] [facility] [place] [phone] Kolton Cao, DO 5Bamboo flowsheet [facility] [address] [facility] [place] [phone] Kolton Cao, DO 03/20/2025linisync Result Encounter [facility] External Department Unsolicited Kolton Cao, DO 03/08/2025Patient Outreach [facility] [address] [place] [address] Aline Dudley RN 02/24/2025Patient Outreach [facility] [address] [place] [address] Patria Woods, BIBI 02/23/2025Telephone [facility] [address] [facility] [place] [address] Stella Webb MA 02/23/2025Telephone [facility] [address] [facility] [address] [place] [phone] Stella Webb MA Error (VOID this visit)02/23/2025Orders Only [facility] [address] [place] [address] Aline Fernández LPN 02/17/2025Telephone [facility] [address] [facility] [place] [phone] Katja Swanson, TUBER MACHINE CUTTER 02/16/2025 2:00 PM EDTRoutine [facility] [address] [facility] [address] [place] [phone] Katharine Cummins PA 15 weeks gestation of ([facility]); Second trimester ([facility]); Screening, , for anatomic survey ([facility]); Exposure to STD; Vaginal discharge; Well woman exam with routine gynecological exam02/16/2025linisync Result Encounter [facility] External Department Unsolicited Katharine Cummins PA 02/16/2025External Result Encounter [facility] External Department Unsolicited Katharine Cummins PA 02/16/2025amboo flowsheet [facility] [address] [facility] [place] [address] Katharine Cummins PA 01/25/2025 9:20 AM EDTRoutine [facility] [address] [facility] [address] [place] [address] Kolton Cao, 12 weeks gestation of ([facility]); First trimester ([facility])01/25/2025amboo flowsheet [facility] [address] [place] [address] [place] [address] Kolton Cao, DO 01/18/2025bstract [facility] [address] [place] [address] [place] [address] Kolton Cao, DO 01/18/2025bstract [facility] [address] [place] [address] [place] [address] Kolton Cao, 01/14/2025Telephone [facility] [address] [place] [address] [place] [address] Nicolasa Bailey MA 01/14/2025bstract [facility] [address] [place] [address] [place] [address] Nicolasa Bailey MA 01/12/2025Patient Outreach [facility] [address] [place], [place] [address] [phone] Kanika Parish, MILKA from Last 3 Months Immunizations ImmunizationAdministration DatesNext OqyASA906988KPnF83/23/2004DTaP, Rnvfokoufwd78/13/2006,11/24/2002,2001,2001HPV, Quadrivalent 08/27/2013,08/21/2013,04/06/2013,03/02/2013Hep B, Adolescent or Pediatric 11/24/2002,2001,2001HiB, cajvjeigovo92/17/2003,2001,2001 Hib (PRP-T)03/02/2004IPV1,12/20/2005,2001Influenza, injectable, xjvfnfwsmloa13/26/2021Influenza, injectable, quadrivalent, preservative free 06/12/2023,05/11/2022Influenza, seasonal, injectable, preservative free 03/17/2025,03/18/2024MMR1,12/20/2005,11/24/2002Meningococcal MCV4P 01/22/2018,03/02/2013PPD Test06/12/2023,06/05/2023,05/18/2022,05/11/2022 Pneumococcal Conjugate PCV 7008/05/2001Polio, Pdzdjccowen37/17/2003,2001 Tdap107/31/2022,03/02/20133585Bqxalwltv51/21/2023,03/02/2013,03/18/2008,12/20/2005 Family History Medical HistoryRelationNameCommentsArthritisFatherJohn SeamonAsthmaFatherJohn SeamonStrokeMaternal GrandmotherCynthia HicksDrug abuseMotherKristy SeamonCancer OtherStrokeOtherStrokePaternal GrandfatherDiabetesSister 2Jkarina MelendezRelation DcovIzwtmbMimciwvvGqpaowrx6RrmcloGbcq SeamonAliveMaternal GrandmotherCynthia HicksMotherKristy SeamonDeceasedOtherHalf BrotherPaternal GrandfatherSister 1x2 Sister 2Jozlindsey Melendez Social History Tobacco UseTypesPacks/DayYears UsedDateSmoking Tobacco: [...] relatives?Twice a week03/11/2023How often do you attend jewish or adventism services?1 to 4 times per year03/11/2023o you belong to any clubs or organizations such as jewish groups, unions, fraternal or athletic laura ups, or school groups?No03/11/2023How often do you attend meetings of the clubs or organizations you belong to?Never03/11/2023re you , , , , never , or living with a partner?Ycgrzsy2703/11/2023 AUDIT-CAnswerDate RecordedQ1: How often do you have a drink containing alcohol? Monthly or less03/11/2023Q2: How many drinks containing alcohol do you have on a typical day when you are drinking?3 or Q3: How often do you have six or more drinks on one occasion?Less than xzlbsag3703/11/2023Overall Financial Resource Strain (CARDIA)AnswerDate RecordedHow hard is it for you to pay for the very basics like food, housing, medical care, and heating?Somewhat hard 03/11/2023HQ-2AnswerDate RecordedPatient Health Questionnaire-2 Score0 03/25/2025[facility] [place] [facility] Occup[facility] Health - Occupational Stress QuestionnaireAnswerDate [...] steady place to sleep or slept in [place] (including now)?No03/11/2023Estimated Date of XoefzxtoGpellkavJgz06/27/2026Based on last menstrual period of 10/30/2024Sex and Gender InformationValueDate RecordedSex Assigned at YeubeQuthjx38/01/2023 1:10 PM EDTLegal NxgAmzstj34/15/2023 6:51 PM EDTGender ZprhxtryAkjqgr20/01/2023 1:10 PM EDTSexual TzirneekswzZduphntv16/01/2023 1:10 PM EDT Last Filed Vital Signs Vital SignReadingTime TakenCommentsBlood Okbaestx470/7204/08/2025 1:59 PM EDT Wwgvb426003/25/2025 8:46 AM VBXUxzwnstwqsk41 ??C (96.8 ??F)03/25/2025 8:46 AM EDT Respiratory Rate--Oxygen Gjqxcdbkxn32%03/25/2025 8:46 AM EDTInhaled Oxygen Concentration--Yxxrfn26.5 kg (159 lb 12 oz)04/08/2025 1:59 PM JLARipafn174.3 cm (4' 10 )03/25/2025 8:46 AM EDTBody Mass Index33.391 8:46 AM EDT Plan of Treatment DateTypeDepartmentCare Team (Latest Contact Info)Vmpuaqvrdli75/12/2025 10:50 AM ESTRoutine [facility] OBCHANTELL [address] [place] [address] Katharine Cummins PA [address] [place] [address] Health MaintenanceDue DateLast DoneCommentsPneumococcal Vaccine: Pediatrics (0 to 5 Years) and At-Risk Patients (6 to 64 Years) (1 of 2 - PCV)02/12/2020 2001COVID-19 Vaccine ( season), 03/21/2021, 1Diabetes: Hemoglobin A1C61, 12/15/2024, 12/15/2024, Additional history existsDiabetes: Urine Protein Psvfndiib00/20/73898010/27/2024, 11/11/2023, 11/11/2023, Additional history existsDiabetes: Retinopathy Screening 710, 06/30/2019Influenza VejicmiPwqlvxfvt94/08/2025, 03/18/2024, 06/12/2023, Additional history exists Goals GoalPatient Goal TypeAssociated ProblemsRecent ProgressPatient-Stated?Author Reminders Care PlanOB RemindersNoOpen Scheduling, Background Procedures Procedure NamePriorityDate/TimeAssociated DiagnosisCommentsPOCT URINALYSIS HGNGISJNIjcnswp82/30/2025 2:07 PM EDT Second trimester ([facility]) ALPHA FETOPROTEIN, TUMOR PWYKCSSpspqfa57/30/2025 10:01 AM EDT DIABETIC RETINOPATHY SCREENING - OU - BOTH PDAYFkcjzrz57/21/2025 12:15 PM EDT CULTURE, URINE, YNUNWENNdodmbb74/15/2025 8:04 AM EDT Missed menses POCT URINALYSIS VTMZWHXSQvelvij54/14/2025 9:03 AM EDT 20 weeks gestation of ([facility]) TBH URINE MICROSCOPIC CICRMyybyjw91/11/2025 7:28 AM EDT ECJFNBOHQmivkuc24/11/2025 7:28 AM EDT TBH UA (CLEAN/CATCH) GRAVEL ROOFER/MICRO IF IND.Fvgbtwv9403/20/2025 7:28 AM EDT RECURRENT VAGINITIS (HTRX)Gzxwint7402/16/2025 3:21 PM EDT POCT URINALYSIS LOWGNXWMTqjuswt14/09/2025 2:17 PM EDT 15 weeks gestation of ([facility]) Second trimester ([facility]) IGP,APTIMA HPV,AGE LAOQUdgyrfx21/09/2025 2:01 PM EDT PAP AEYSSPajpwil33/09/2025 12:00 AM EDTPOCT URINALYSIS UCGAYWLBEyqepyz51/18/2025 9:33 AM EDT 12 weeks gestation of ([facility]) First trimester ([facility]) HEMOGLOBIN W6XXhmwffv27/08/2025 10:24 AM EDTMICROALBUMIN / CREATININE URINE LDZZYQeyxnya23/20/2025 from Last 3 Months or Most Recently Relevant to Health Maintenance Results * (ABNORMAL) POCT urinalysis dipstick manually resulted (04/08/2025 2:07 PM EDT) Only the most recent of4 resultswithin the time period is included. ComponentValueRef RangeTest MethodAnalysis TimePerformed AtPathologist Signature Color, UAYellowClarity, UAClearGlucose, UANegativeNegative - 2000(110) ++++ mg/dLBilirubin, UANegativeNegative - 4(70) +++ mg/dLKetones, UANegativeNegative - 160(16) ++++ mg/dLSpec Grav, UA1.0201 - 1.03Blood, UANegativeNegative - 50 Guy/mcLpH, UA6.05 - 9Protein, UAPositiveNegative - 2000(20) ++++ mg/dLComment:1+ Urobilinogen, UA0.20.2 - 12 mg/dLLeukocytes, UAPositiveNegative - 500+++ Danny/mcL Comment:3+Nitrite, UANegativeNegative - PositiveSpecimen (Source)Anatomical Location / LateralityCollection Method / VolumeCollection TimeReceived TimeUrine 04/08/2025 2:07 PM EDT Narrative Authorizing ProviderResult TypeResult StatusDixie Gan NPPOINT OF CARE TEST ENTER/EDIT ORDERABLESFinal Result * (ABNORMAL) AFP tumor marker (04/08/2025 10:01 AM EDT)ComponentValueRef Range Test MethodAnalysis TimePerformed AtPathologist SignatureALPHA XJWMWSWYAJV91.3 (H)<=9.9 ng/mLPROMEDICAComment: ?? PERFORMED AT [facility] [address],[place] [address] Specimen (Source)Anatomical Location / LateralityCollection Method / Volume Collection TimeReceived Time04/08/2025 10:01 AM EDT1 12:35 PM EDT Narrative Authorizing ProviderResult TypeResult StatusAmy Maria G PALAB BLOOD ORDERABLES Final ResultPerforming OrganizationAddressCity/State/ZIP CodePhone Number [place] * (ABNORMAL) Diabetic Retinopathy Screening - OU - Both Eyes (03/30/2025 12:15 PM EDT)Anatomical RegionLateralityModalityHeadOther Narrative Authorizing ProviderResult TypeResult StatusThomas W Ochiltree ODOPHTH PHOTOGRAPHY Final Result * Urine culture (03/24/2025 8:04 AM EDT)Specimen (Source)Anatomical Location / LateralityCollection Method / VolumeCollection TimeReceived TimeUrineUrine specimen obtained by clean catch procedure / Unknown Narrative Authorizing ProviderResult TypeResult StatusCorey Kiley DOLAB MICROBIOLOGY - GENERAL ORDERABLESFinal ResultPerforming OrganizationAddressCity/State/ZIP Code Phone Number EXTERNAL LAB * AMNISURE (03/20/2025 7:28 AM EDT)ComponentValueRef RangeTest MethodAnalysis TimePerformed AtPathologist SignatureTBH AMNISURENEGATIVENEGATIVETBHSpecimen (Source)Anatomical Location / LateralityCollection Method / [...] 7:28 AM EDT1 7:35 AM EDT Narrative [facility] - 03/20/2025 7:55 AM EDT Authorizing ProviderResult TypeResult StatusCorey Kiley DOCLINISYNCFinal Result Performing OrganizationAddressCity/State/ZIP CodePhone Number [facility] * (ABNORMAL) TBH UA (CLEAN/CATCH) GRAVEL ROOFER/MICRO IF IND. (03/20/2025 7:28 AM EDT) ComponentValueRef RangeTest MethodAnalysis TimePerformed AtPathologist SignatureCOLOR URINELT. YELLOWYELLOWTBHCLARITY URINECLEARCLEARTBHSPECIFIC GRAVITY URINE1.0251.005 - 1.025TBHPH URINE6.05.0 - 9.0TBHPROTEIN URINENEGATIVE NEG/TRACE mg/dLTBHGLUCOSE URINE UANEGATIVENEGATIVE mg/dLTBHBILIRUBIN URINE NEGATIVENEGATIVETBHKETONES URINENEGATIVENEGATIVE mg/dLTBHBLOOD URINENEGATIVE NEGATIVETBHNITRITE URINENEGATIVENEGATIVETBHUROBILINOGEN URINE1.00.2 - 1.0 EU/dLTBHLEUKOCYTE ESTERASE URINELARGE(A)NEGATIVETBHURINE MICROSCOPIC INDICATED YESTBHSpecimen (Source)Anatomical Location / LateralityCollection Method / VolumeCollection TimeReceived Time03/20/2025 7:28 AM EDT1 7:35 AM EDT Narrative [facility] - 03/20/2025 7:55 AM EDT Authorizing ProviderResult TypeResult StatusCorey Kiley DOCLINISYNCFinal Result Performing OrganizationAddressCity/State/ZIP CodePhone Number [facility] * (ABNORMAL) RECURRENT VAGINITIS (HTRX) (02/16/2025 3:21 PM EDT)ComponentValue Ref RangeTest MethodAnalysis TimePerformed AtPathologist SignatureATOPOBIUM QZANGHO72.792(A)19.961 - 24.689 ppm02/17/2025 6:29 AM EDTHealthTrackRx at LabPortATOPOBIUM VAGINAEDetected(A)19.961 - 24.689 ppm02/17/2025 6:29 AM EDT [facility] at LabPortBVAB 2,3 (BACTERIAL VAGINOSIS ASSOCIATED BACTERIA 2, 3); MOBILUNCUS SPP13.669(A)19.961 - 24.689 ppm02/17/2025 6:29 AM EDT [facility] at LabPortBVAB 2,3 (BACTERIAL VAGINOSIS ASSOCIATED BACTERIA 2, 3); MOBILUNCUS SPPDetected(A)19.961 - 24.689 ppm02/17/2025 6:29 AM EDT [facility] at LabPortCANDIDA ALBICANS, PARAPSILOSIS, NEVJHMSZMP43.36(A) 23.000 - 30.347 ppm02/17/2025 6:29 AM EDTHealthTrackRx at LabPortCANDIDA ALBICANS, PARAPSILOSIS, TROPICALISDetected(A)23.000 - 30.347 ppm02/17/2025 6:29 AM EDTHealthTrackRx at LabPortCANDIDA SQLLGZNE029.000 - 31.618 ppm 02/17/2025 6:29 AM EDTHealthTrackRx at LabPortCANDIDA GLABRATANot Detected 23.000 - 31.618 ppm02/17/2025 6:29 AM EDTHealthTrackRx at LabPortCANDIDA OSGAEL828.000 - 30.873 ppm02/17/2025 6:29 AM EDTHealthTrackRx at LabPort ESTEFANÍA KRUSEINot Noehqgdu68.000 - 30.873 ppm02/17/2025 6:29 AM EDT [facility] at LabPortCHLAMYDIA KCEFKVULQHW112.000 - 31.586 ppm02/17/2025 6:29 AM EDTHealthTrackRx at LabPortCHLAMYDIA TRACHOMATISNot Hsvygtyc69.000 - 31.586 ppm02/17/2025 6:29 AM EDTHealthTrackRx at LabPortGARDNERELLA VAGINALIS 29.985(A)19.961 - 24.689 ppm02/17/2025 6:29 AM EDTHealthTrackRx at [facility] GARDNERELLA VAGINALISDetected(A)19.961 - 24.689 ppm02/17/2025 6:29 AM EDT [facility] CenterMENYSPBARROW NEUROLOGICAL INSTITUTERA (TYPES 1, 2)14.74(A)19.961 - 24.689 ppm 02/17/2025 6:29 AM EDTHealthTrackRx at [facility]RA (TYPES 1, 2)Detected (A)19.961 - 24.689 ppm02/17/2025 6:29 AM EDTHealthTrackRx at [facility] Medical CenterNEISSERIA FEKJSBBVZYA071.000 - 32.587 ppm02/17/2025 6:29 AM EDTHealthTrackRx at [facility] NEISSERIA GONORRHOEAENot Ieighggb33.000 - 32.587 ppm02/17/2025 6:29 AM EDT [facility] CenterTRICHOMONAS YZISANBUG675.000 - 31.995 ppm02/17/2025 6:29 AM EDTHealthTrackRx at [facility] Medical CenterTRICHOMONAS VAGINALISNot Stkkbvmx57.000 - 31.995 ppm02/17/2025 6:29 AM EDTHealthTrackRx at [facility] CenterMYCOPLASMA GENITALIUM0 19.961 - 24.689 ppm02/17/2025 6:29 AM EDTHealthTrackRx at [facility] Medical CenterMYCOPLASMA GENITALIUMNot Pepnkbun92.961 - 24.689 ppm02/17/2025 6:29 AM EDTHealthTrackRx at [facility]University [facility], C; MEFA20.721(A)23.000 - 27.500 ppm02/17/2025 6:29 AM EDT [facility], C; MEFADetected(A)23.000 - 27.500 ppm02/17/2025 6:29 AM EDTHealthTrackRx at [facility] Medical CenterTET B, TET M18.259(A)23.000 - 27.500 ppm 02/17/2025 6:29 AM EDTHealthTrackRx at [facility] Medical CenterTET B, TET MDetected(A)23.000 - 27.500 ppm02/17/2025 6:29 AM EDTHealthTrackRx at [facility] Medical CenterSpecfrye regional medical centern (Source) Anatomical Location / LateralityCollection Method / VolumeCollection Time Received MxkqQuyepp40/09/2025 3:21 PM EDT02/17/2025 1:43 AM EDT Narrative Authorizing ProviderResult TypeResult StatusAmy Maria G JERNIGAN BLOOD ORDERABLES Final ResultPerforming OrganizationAddressCity/State/ZIP CodePhone Number [facility] [address] [address] * IGP,APTIMA HPV,AGE GDLN (02/16/2025 2:01 PM [...] at: 01 =G ?[facility] [address] ?? [address], [place] ??[phone] ?? Maryjane Up MD, IGP, RFX APTIMA HPV ASCUNote.TBHComment: ?? TESTS ? RESULT ??FLAG ??UNITS ?REF RANGE ??LAB DIAGNOSIS: ?02 ?? NEGATIVE FOR INTRAEPITHELIAL LESION OR MALIGNANCY. Specimen adequacy: ?02 ?? Satisfactory for evaluation. No endocervical component is identified. Performed by: ? 02 ?? Clarita Somers Custody Assistant (ASCP) . ? 02 Note: ? Note ?02 [...] High,A-Abnormal,AA-Critical Abnormal Performed at: 02 WB ?[facility] ?? [address] [place], [place] ??[phone] ?? Maryjane Up MD, Performed at: ??=G - [facility] [address], [place] ??[phone] Retrieval Specialist: Maryjane Up MD, Phone: ??[phone] Performed at: ??WB - [facility] [address], [place] ??[phone] Retrieval Specialist: Maryjane Up MD, Phone: ??[phone] Specimen (Source)Anatomical Location / LateralityCollection Method / Volume Collection TimeReceived Time02/16/2025 2:01 PM EDT02/16/2025 7:54 PM EDT Narrative [facility] - 02/19/2025 1:08 PM EDT SPATULA-ALONE ENDOCERVIX Authorizing ProviderResult TypeResult StatusAmy Maria G PALAB BLOOD ORDERABLES Final ResultPerforming OrganizationAddressCity/State/ZIP CodePhone Number [facility] * Pap Smear (02/16/2025 12:00 AM EDT)Specimen (Source)Anatomical Location / LateralityCollection Method / VolumeCollection TimeReceived TimeSwabCervical swab / Unknown Narrative Authorizing ProviderResult TypeResult StatusFazio Nurse [facility] Bcp ObLAB CYTOLOGY ORDERABLESFinal ResultPerforming OrganizationAddressCity/State/ZIP CodePhone Number EXTERNAL LAB * Microalbumin / creatinine urine ratio (10/27/2024)ComponentValueRef RangeTest MethodAnalysis TimePerformed AtPathologist SignatureMICROALBUMIN, URINE10.2 Specimen (Source)Anatomical Location / LateralityCollection Method / Volume Collection TimeReceived TimeUrineUrine specimen obtained by clean catch procedure / Izbvbrw4010/27/2024 Narrative Authorizing ProviderResult TypeResult StatusFirelands Physician GroupLAB URINE ORDERABLESFinal Result from Last 3 Months or Most Recently Relevant to Health Maintenance Additional Health Concerns Active ProblemsNoted DateDiagnosed DateOB Taxzoepik68/24/2025 Insurance Care Teams Team MemberRelationshipSpecialtyStart DateEnd Date Dru Rodriguez DO [address] [facility] [address] [place] [address] [facility] - [facility]22 Dru Rodriguez DO [address] [facility] [address] [place] [address] PCP - Medical [place] Oqrktselkt81/1/
--- OUTSIDE RECORDS SUMMARY | 2025-04-13 18:31 | XMS_ITS | Encounter Summary ---
Author Organization [facility] Address [address] [place] [address] Care Team Providers Care Meat Press Operator Name Role Phone JenniferSimongregorio Chen DO Primary Care Provider [phone]- [phone] Dru Rodriguez DO Unavailable [phone] Encounter Details DateTypeDepartmentCare Team (Latest Contact Info)Ldhrchvxmnr76/30/2025Patient Outreach [facility] [address] [place] [phone] Aline Dudley, BRANDT [address] [place] [address] Social History Tobacco UseTypesPacks/DayYears UsedDateSmoking Tobacco: NeverSmokeless [...] week03/11/2023How often do you attend taoism or scientology services?1 to 4 times per year03/11/2023o you belong to any clubs or organizations such as taoism groups, unions, fraternal or athletic laura ups, or school groups?No03/11/2023How often do you attend meetings of the clubs or organizations you belong to?Never03/11/2023re you , , , , never , or living with a partner?Ferckzy7603/11/2023 AUDIT-CAnswerDate RecordedQ1: How often do you have a drink containing alcohol? Monthly or less03/11/2023Q2: How many drinks containing alcohol do you have on a typical day when you are drinking?3 or Q3: How often do you have six or more drinks on one occasion?Less than dzugsui5003/11/2023Overall Financial Resource Strain (CARDIA)AnswerDate RecordedHow hard is it for you to pay for the very basics like food, housing, medical care, and heating?Somewhat hard 03/11/2023HQ-2AnswerDate RecordedPatient Health Questionnaire-2 Score0 03/25/2025[facility] [place] of Occupational Health - Occupational Stress QuestionnaireAnswerDate [...] slept in ashelter (including now)?No03/11/2023Estimated Date of MmclqifcAvxatxayNwl01/27/2026ased on last menstrual period of 10/30/2024Sex and Gender InformationValueDate RecordedSex Assigned at CpmrgJksqqn40/01/2023 1:10 PM EDTLegal KbdYmpiil01/15/2023 6:51 PM EDTGender LpbwufoxXmpjwf51/01/2023 1:10 PM EDTSexual QdcjoxuelcnMmbgeauf73/01/2023 1:10 PM EDTdocumented as of this encounter Progress Notes * Aline Dudley RN - 04/08/2025 10:51 AM EDT Images from the original note were not included. Flowsheet Row Patient Outreach from 04/08/2025 in [facility] with Aline Dudley RN Hospital Information ED, Hospital or Fci Facility Discharge? ED Patient has been contacted within 2 days of being seen in the ED Yes Diagnosis Hyperglycemia, Hypomagnesemia Discharge Date 04/06/25 Discharged To: Home Setting Discharge Hospital [facility] Engagement Call Start Time 1051 Admission Date 04/06/25 Medications Discharge medications reviewed and reconciled from hospital? Not applicable Does the patient have all medications ordered at discharge? Not applicable Is the patient taking all medications as directed (includes completed medication regime)? Yes Appointments Does the patient have a primary care provider? Yes Nursing Interventions Patient declined follow up appointment w/ PCP Does the patient have any upcoming specialty appointments? Yes [following up with [facility] HEALTH CARE MANAGER] Nursing Interventions Advised patient to keep appointment Self Management Does patient have home health? no Patient Teaching Does the patient have access to their discharge instructions? Yes Nursing Interventions Reviewed instructions with patient What is the patient's perception of their health status since discharge? Improving Is the patient/caregiver able to teach back the hierarchy of who to call/visit for symptoms/problems? PCP, Specialist, Home Health nurse, Urgent Care, ED, 911 Yes Wrap Up Wrap Up Additional Comments Pt presented to ER due to a few days of high blood sugars. Tests: labs,EKG. Pt had no signs of DKA, pt has appt to follow up with [facility] .net developer. Pt's first (22 weeks). Call End Time 1058 documented in this encounter Plan of Treatment DateTypeDepartmentCare Team (Latest Contact Info)Vpafipsxvmp55/12/2025 10:50 AM ESTRoutine [facility] [address] [place] [address] Katharine Cummins PA [address] [address] documented as of this encounter Goals GoalPatient Goal TypeAssociated ProblemsRecent ProgressPatient-Stated?Author Reminders Care PlanOB RemindersNoOpen Scheduling, Backgrounddocumented as of this encounter Visit Diagnoses Diagnosis Hyperglycemia- Primary Other abnormal glucose Hypomagnesemia Disorders of magnesium metabolism Type 1 diabetes mellitus without complications (HCC) documented in this encounter Additional Health Concerns Active ProblemsNoted DateDiagnosed DateOB Tfddlgjzf91/24/2025 documented as of this encounter Care Teams Team MemberRelationshipSpecialtyStart DateEnd Date Dru Rodriguez DO [address] [place] [address] PCP - GeneralFamily Medicine10/22/22 Dru Rodriguez DO [address] [place] [address] PCP - Medical Evart Cougnyisop73/1/2312documented as of this encounter
--- OUTSIDE RECORDS SUMMARY | 2025-04-13 18:31 | XMS_ITS | Encounter Summary ---
Author Organization [employer] tem Address [id number] [address] [place] [address] Care Team Providers Care Support Service Tech Name Role Phone JenniferDru April MUNGUIA Primary Care Provider [phone] Encounter Details DateTypeDepartmentCare Team (Latest Contact Info)Uurcystpvqg97/30/2025Travel Social History Tobacco UseTypesPacks/DayYears UsedDateSmoking Tobacco: NeverSmokeless Tobacco: NeverAlcohol UseStandard Drinks/WeekCommentsYes0 (1 standard drink = 0.6 oz pure alcohol)socialBARBERTON CITIZENS [facility] UtilitiesAnswerDate RecordedIn the past 12 months [...] care, and heating?Not hard at all02/17/2025PHQ-2AnswerDate RecordedTotal Mcocq647Finprimary children's hospital [place] of Occupational Health - Occupational Stress QuestionnaireAnswerDate [...] of a household?No02/17/2025hildcareAnswerDate RecordedDo problems getting child welfare consultant make it difficult for you to work [...] and direction in my life.Agree02/17/2025Estimated Date of QyqbxtgqFrphlzbhYii39/27/2026Based on last menstrual period of 10/30/2024Sex and Gender InformationValueDate RecordedSex Assigned at ZehhhKrbylx37/22/2025 1:51 AM EDTLegal SexFemale 01/13/2015 11:58 AM EDTGender ZkigzufeMqlnas94/22/2025 1:51 AM EDTSexual OrientationNot on filedocumented as of this encounter Plan of Treatment DateTypeDepartmentCare Team (Latest Contact Info)Tfcgwjbaiim13/05/2025 8:00 AM ESTAppointment [facility] US Imaging [address] [place] [address] 04/16/2025 2:00 PM ESTAppointment [facility] - Cardiovascular [address] [place] [address] 04/20/2025 10:30 AM ESTTelemedicine Maternal- Medicine at [facility] [address] [place] [address] Rosy Arredondo, PASocoC [address] [address] documented as of this encounter Visit Diagnoses Not on filedocumented in this encounter Additional Health Concerns AssessmentNoted TimePHQ-9 Depression Total Score: 8:31 AM ESTA Body Mass Index follow-up plan has been documented for the ayerbjw6606/12/2023 4:35 PM ESTdocumented as of this encounter Care Teams Team MemberRelationshipSpecialtyStart DateEnd Date Dru Rodriguez DO [address] [place] [address] PCP - General01/01/17documented as of this encounter
--- OUTSIDE RECORDS SUMMARY | 2025-04-13 18:31 | XMS_ITS | Encounter Summary ---
Author Organization [facility] tem Address [id number] [address] [place] [address] Care Team Providers Care Supervisor Data Processing Name Role Phone Dru Rodriguez Primary Care Provider [phone]- [phone] Encounter Details DateTypeDepartmentCare Team (Latest Contact Info)Deluhzltfxu85/27/2025Orders Only Maternal- Medicine at [facility] [address] [facility] [place] [address] Clarita Mchugh, [facility] Social History Tobacco UseTypesPacks/DayYears UsedDateSmoking Tobacco: NeverSmokeless Tobacco: NeverAlcohol UseStandard Drinks/WeekCommentsYes0 (1 standard drink = 0.6 oz pure alcohol)[facility] UtilitiesAnswerDate RecordedIn the past 12 months has the [employer], gas, oil, or water [employer] threatened to shut off services in your [...] care, and heating?Not hard at all02/17/2025PHQ-2AnswerDate RecordedTotal Nbnor01706/12/2023[place] [facility] [place] of Occupational Health - Occupational Stress QuestionnaireAnswerDate [...] a household?No02/17/2025hildcareAnswerDate RecordedDo problems getting child care giver make it difficult for you to work [...] and direction in my life.Agree02/17/2025Estimated Date of LtgcienwRwbbtbexJdn77/27/2026Based on last menstrual period of 10/30/2024Sex and Gender InformationValueDate RecordedSex Assigned at VnwqcQmkdtx12/22/2025 1:51 AM EDTLegal SexFemale 01/13/2015 11:58 AM EDTGender MuicztnvTqdzjo08/22/2025 1:51 AM EDTSexual OrientationNot on filedocumented as of this encounter Plan of Treatment DateTypeDepartmentCare Team (Latest Contact Info)Aoeqgcvtvep50/05/2025 8:00 AM ESTAppointment [facility] - MF US Imaging [address] [facility] [place] [address] 04/16/2025 2:00 PM ESTAppointment [facility] - Cardiovascular [address] [place] [address] 04/20/2025 10:30 AM ESTTelemedicine Maternal- Medicine at [facility] [address] [facility] [place] [address] Rosy Arredondo, PASocoC [address] [address] documented as of this encounter Visit Diagnoses Not on filedocumented in this encounter Additional Health Concerns AssessmentNoted TimePHQ-9 Depression Total Score: 8:31 AM ESTA Body Mass Index follow-up plan has been documented for the sbmmprt7206/12/2023 4:35 PM ESTdocumented as of this encounter Care Teams Team MemberRelationshipSpecialtyStart DateEnd Date Dru Rodriguez DO [address] [place] [address] PCP - General01/01/17documented as of this encounter
--- OUTSIDE RECORDS SUMMARY | 2025-04-13 18:31 | XMS_ITS | Encounter Summary ---
Author Organization [facility] tem Address [id number] [address] [place] [address] Care Team Providers Care Protection Mgr Name Role Phone JenniferDru April MUNGUIA Primary Care Provider +1- [phone] Encounter Details DateTypeDepartmentCare Team (Latest Contact Info)Gfriumcfulu34/28/2025Telephone Maternal- Medicine at [facility] [address] [facility] [place] [phone] Carolann Urbina RN Social History Tobacco UseTypesPacks/DayYears UsedDateSmoking Tobacco: NeverSmokeless Tobacco: NeverAlcohol UseStandard Drinks/WeekCommentsYes0 (1 standard drink = 0.6 oz pure alcohol)[facility] UtilitiesAnswerDate RecordedIn the past [address] [employer], gas, oil, or water [employer] threatened to shut off services in your [...] care, and heating?Not hard at all02/17/2025PHQ-2AnswerDate RecordedTotal Bkmpv12306/12/2023[facility] [place] of Occupational Health - Occupational Stress QuestionnaireAnswerDate [...] of a household?No02/17/2025hildcareAnswerDate RecordedDo problems getting child abuse worker make it difficult for you to work [...] and direction in my life.Agree02/17/2025Estimated Date of CovrlodsJpnmtfziTac44/27/2026Based on last menstrual period of 10/30/2024Sex and Gender InformationValueDate RecordedSex Assigned at UhoenCcyuay39/22/2025 1:51 AM EDTLegal SexFemale 01/13/2015 11:58 AM EDTGender WwueszepNtipbx05/22/2025 1:51 AM EDTSexual OrientationNot on filedocumented as of this encounter Miscellaneous Notes * Telephone Encounter - Carolann Urbina RN - 04/06/2025 3:36 PM EDT LMOM requesting return call to schedule video visit this week per Dr Esteban. (T1DM) documented in this encounter Plan of Treatment DateTypeDepartmentCare Team (Latest Contact Info)Dbfcagzknti27/05/2025 8:00 AM ESTAppointment [facility] - MF US Imaging [address] [place] [address] 04/16/2025 2:00 PM ESTAppointment [facility] - Cardiovascular [address] [place] [address] 04/20/2025 10:30 AM ESTTelemedicine Maternal- Medicine at [facility] [address] [place] [address] Rosy Arredondo, PA-C [address] [address] documented as of this encounter Visit Diagnoses Diagnosis Uncontrolled type 1 diabetes mellitus with hyperglycemia, with long-term current use of insulin ([facility]) documented in this encounter Additional Health Concerns AssessmentNoted TimePHQ-9 Depression Total Score: 8:31 AM ESTA Body Mass Index follow-up plan has been documented for the yhaviev9506/12/2023 4:35 PM ESTdocumented as of this encounter Care Teams Team MemberRelationshipSpecialtyStart DateEnd Date Dru Rodriguez DO [address] [place] [address] PCP - General01/01/17documented as of this encounter
--- OUTSIDE RECORDS SUMMARY | 2025-04-13 18:31 | XMS_ITS | Encounter Summary ---
Author Organization [facility] tem Address [id number] [address] [place] [address] Care Team Providers Care Low Pressure Firer Name Role Phone JenniferDru April MUNGUIA Primary Care Provider [phone]- [phone] Encounter Details DateTypeDepartmentCare Team (Latest Contact Info)Eklojysomsy04/29/2025Telephone Maternal- Medicine at [facility] [address] [facility] [place] [address] Carolann Urbina RN Social History Tobacco UseTypesPacks/DayYears UsedDateSmoking Tobacco: NeverSmokeless Tobacco: NeverAlcohol UseStandard Drinks/WeekCommentsYes0 (1 standard drink = 0.6 oz pure alcohol)[facility] UtilitiesAnswerDate RecordedIn the past 12 months has the [employer], gas, oil, or water [employer] threatened to shut off services in your [...] care, and heating?Not hard at all02/17/2025PHQ-2AnswerDate RecordedTotal Lsvba94306/12/2023Finmountain view hospital [place] of Occupational Health - Occupational Stress QuestionnaireAnswerDate [...] a household?No02/17/2025hildcareAnswerDate RecordedDo problems getting child care specialist make it difficult for you to work [...] and direction in my life.Agree02/17/2025Estimated Date of UwpevefyEfzmxhmgDin86/27/2026Based on last menstrual period of 10/30/2024Sex and Gender InformationValueDate RecordedSex Assigned at XgnjtOwtyni91/22/2025 1:51 AM EDTLegal SexFemale 01/13/2015 11:58 AM EDTGender UmbmzwqsGdngpe73/22/2025 1:51 AM EDTSexual OrientationNot on filedocumented as of this encounter Miscellaneous Notes * Telephone Encounter - Carolann Urbina RN - 04/07/2025 10:36 AM EDT LMOM x2 requesting return call to schedule video visit this week per Dr Esteban. (T1DM) documented in this encounter Plan of Treatment DateTypeDepartmentCare Team (Latest Contact Info)Nxuoivyawoq78/05/2025 8:00 AM ESTAppointment [facility] - MF US Imaging [address] [place] [address] 04/16/2025 2:00 PM ESTAppointment [facility] - Cardiovascular [address] [place] [address] 04/20/2025 10:30 AM ESTTelemedicine Maternal- Medicine at [facility] [address] [place] [address] Rosy Arredondo, PA-C [address] [address] documented as of this encounter Visit Diagnoses Diagnosis Uncontrolled type 1 diabetes mellitus with hyperglycemia, with long-term current use of insulin ([facility]) documented in this encounter Additional Health Concerns AssessmentNoted TimePHQ-9 Depression Total Score: 8:31 AM ESTA Body Mass Index follow-up plan has been documented for the qisoxph8806/12/2023 4:35 PM ESTdocumented as of this encounter Care Teams Team MemberRelationshipSpecialtyStart DateEnd Date Dru Rodriguez DO [address] [place] [address] PCP - General01/01/17documented as of this encounter
--- OUTSIDE RECORDS SUMMARY | 2025-04-13 18:31 | XMS_ITS | Encounter Summary ---
Author Organization [employer] tem Address [id number] [address] [place] [address] Care Team Providers Care Network Security Consultant Name Role Phone JenniferDru April MUNGUIA Primary Care Provider [phone]- [phone] Encounter Details DateTypeDepartmentCare Team (Latest Contact Info)Whfjzggyfbc79/03/2025Travel Social History Tobacco UseTypesPacks/DayYears UsedDateSmoking Tobacco: NeverSmokeless Tobacco: NeverAlcohol UseStandard Drinks/WeekCommentsYes0 (1 standard drink = 0.6 oz pure alcohol)socialPREMIER HEALTH [facility] UtilitiesAnswerDate RecordedIn the past 12 months has [...] care, and heating?Not hard at all02/17/2025PHQ-2AnswerDate RecordedTotal Mxrjz21006/12/2023[facility] [place] of Occupational Health - Occupational Stress QuestionnaireAnswerDate [...] of a household?No02/17/2025hildcareAnswerDate RecordedDo problems getting children's librarian make it difficult for you to [...] and direction in my life.Agree02/17/2025Estimated Date of AresndalOfmzxcsxFkw89/27/2026Based on last menstrual period of 10/30/2024Sex and Gender InformationValueDate RecordedSex Assigned at WzhooGulrhm46/22/2025 1:51 AM EDTLegal SexFemale 01/13/2015 11:58 AM EDTGender CcyujrksQvlctp23/22/2025 1:51 AM EDTSexual OrientationNot on filedocumented as of this encounter Plan of Treatment DateTypeDepartmentCare Team (Latest Contact Info)Aogadmudafk09/05/2025 8:00 AM ESTAppointment [facility] US Imaging [address] [place] [address] 04/16/2025 2:00 PM ESTAppointment [facility] - Cardiovascular [address] [place] [address] 04/20/2025 10:30 AM ESTTelemedicine Maternal- Medicine at [facility] [address] [place] [address] Rosy Arredondo, PASocoC [address] [address] documented as of this encounter Visit Diagnoses Not on filedocumented in this encounter Additional Health Concerns AssessmentNoted TimePHQ-9 Depression Total Score: 8:31 AM ESTA Body Mass Index follow-up plan has been documented for the rxmuozh3006/12/2023 4:35 PM ESTdocumented as of this encounter Care Teams Team MemberRelationshipSpecialtyStart DateEnd Date Dru Rodriguez DO [address] [place] [address] PCP - General01/01/17documented as of this encounter
--- OUTSIDE RECORDS SUMMARY | 2025-04-13 18:31 | XMS_ITS | Encounter Summary ---
Author Organization [facility] Address [address] [place] [address] Care Team Providers Care Assistant Auditor Name Role Phone Dru Rodriguez DO Primary Care Provider [phone]- [phone] Dru Rodriguez DO Unavailable [phone] Encounter Details DateTypeDepartmentCare Team (Latest Contact Info)Azbkfjhhmrj47/21/2025[facility] [address] [place] [address] Kristopher Calvo W, OD [address] [place] [address] Social History Tobacco UseTypesPacks/DayYears UsedDateSmoking Tobacco: NeverSmokeless [...] relatives?Twice a week03/11/2023How often do you attend tenriism or yazdanism services?1 to 4 times per year03/11/2023o you belong to any clubs or organizations such as tenriism groups, unions, fraternal or athletic laura ups, or school groups?No03/11/2023How often do you attend meetings of the clubs or organizations you belong to?Never03/11/2023re you , , , , never , or living with a partner?Cdgbgae6903/11/2023 AUDIT-CAnswerDate RecordedQ1: How often do you have a drink containing alcohol? Monthly or less03/11/2023Q2: How many drinks containing alcohol do you have on a typical day when you are drinking?3 or Q3: How often do you have six or more drinks on one occasion?Less than yztnwur0303/11/2023Overall Financial Resource Strain (CARDIA)AnswerDate RecordedHow hard is it for you to pay for the very basics like food, housing, medical care, and heating?Somewhat hard 03/11/2023HQ-2AnswerDate RecordedPatient Health Questionnaire-2 Score0 03/25/2025[facility] [place] of Occupational Health - Occupational Stress QuestionnaireAnswerDate [...] slept in ashelter (including now)?No03/11/2023Estimated Date of BhlnafjfHtuadcbpTvr89/27/2026ased on last menstrual period of 10/30/2024Sex and Gender InformationValueDate RecordedSex Assigned at SsaltZqyxlz71/01/2023 1:10 PM EDTLegal BebUttvzc11/15/2023 6:51 PM EDTGender VpporwduZtrmwl21/01/2023 1:10 PM EDTSexual NmvtayrpnglNtkmvfxi30/01/2023 1:10 PM EDTdocumented as of this encounter Plan of Treatment DateTypeDepartmentCare Team (Latest Contact Info)Xepvwbxascv79/12/2025 10:50 AM ESTRoutine [facility] OBCHANTELL [address] [place] [address] Katharine Cummins PA [address] [place] [address] documented as of this encounter Goals GoalPatient Goal TypeAssociated ProblemsRecent ProgressPatient-Stated?Author Reminders Care PlanOB RemindersNoOpen Scheduling, Backgrounddocumented as of this encounter Procedures Procedure NamePriorityDate/TimeAssociated DiagnosisCommentsDIABETIC RETINOPATHY SCREENING - OU - BOTH IOHHTjnpvra34/ 12:15 PM EDTdocumented in this encounter Results * (ABNORMAL) Diabetic Retinopathy Screening - OU - Both Eyes (03/30/2025 12:15 PM EDT)Anatomical RegionLateralityModalityHeadOther Narrative Authorizing ProviderResult TypeResult StatusThomas W Umesh ODOPHTH PHOTOGRAPHY Final Result documented in this encounter Visit Diagnoses Not on filedocumented in this encounter Additional Health Concerns Active ProblemsNoted DateDiagnosed DateOB Islregevh51/24/2025 documented as of this encounter Care Teams Team MemberRelationshipSpecialtyStart DateEnd Date Dru Rodriguez, DO [address] [place] [address] PCP - GeneralFamily Medicine10/22/22 Dru Rodriguez DO [address] [place] [address] PCP - Medical [place] Pnjdlwlqgd01/1/2312documented as of this encounter
[2025-04-13 18:41] VITALS: BP 105/63; PULSE 98
== END 2025-04-13 19:02 | disposition home or self-care (01) ==
PROVIDERS: Admitting Provider Obstetrics & Gynecology; PCP Family Medicine; Visit Provider Obstetrics & Gynecology
DX: O36.8120 Decreased fetal movements, second trimester, not applicable or unspecified (principal); Z3A.23 23 weeks gestation of pregnancy
CPT/HCPCS: 59025; G0378; G0379

== ENCOUNTER 2025-04-14 12:22 | Observation (INO) | payer OTHER, BC, SELFPAY ==
--- OUTSIDE RECORDS SUMMARY | 2023-12-31 09:00 | XMS_ITS | Continuity of Care Document ---
Author Organization [facility] Address [address] [place] [address] Phone Care Team Providers Care Lion Tamer Name Role Phone Edna Rodriguez Unavailable Unavailable [...] TOBACCO NON-USER [employer] [facility] [place] Dis Dec Resin Composite 1s; Posterior Prophylaxis Adult Moderate Risk [employer] [place] Dis Dec Oral Hygiene Instruction PSYTX PT&/FAMILY 60 MINUTES PSYTX PT&/FAMILY 60 MINUTES OFFICE/OUTPATIENT VISIT, EST HG A1C LEVEL < 7.0% TOBACCO NON-USER PSYTX PT&/FAMILY 60 MINUTES OFFICE/OUTPATIENT VISIT, EST MED LIST DOCD IN [facility] RVW MEDS BY RX/DR IN [facility] TOBACCO NON-USER PSYTX PT&/FAMILY 60 MINUTES Intraoral-complete Series (bw) Comp Oral Eval New/estab Patient 2023 Oral Hygiene Instruction PSYTX PT&/FAMILY 60 MINUTES OFFICE/OUTPATIENT VISIT, EST DIAST BP 80-89 MM HG SYST BP < 130 MM HG MED LIST DOCD IN [facility] RVW MEDS BY RX/DR IN [facility] TOBACCO NON-USER PSYTX PT&/FAMILY 60 MINUTES PSYTX PT&/FAMILY 60 MINUTES Advance Directives Directive Yes / No Effective Date File Name No Information Encounters Encounter Description Practice Location Reason(s) For Visit Diagnoses Date Provider Providers Copied on Encounter PSYTX PT&/FAMILY 60 MINUTES [facility], [address] [place] [address], [id number] , [place] [phone] [facility] Psychosis, unspecified psychosis typePTSD (post-traumatic stress disorder)Body mass index [BMI] 27.0-27.9, adultVitamin D deficiency, unspecified 4 Olman Bishop. [address] [place] [address], [id number], [place]. [phone] OFFICE/OUTPA TIENT VISIT, [facility], [address] [place] [address], [id number] , [place] tel:[phone] [facility] Telehealth (chief complaint) Psychosis, unspecified psychosis typePTSD (post-traumatic stress disorder)Body mass index [BMI] 27.0-27.9, adultVitamin D deficiency, unspecified 4 Bellstephen Martinodith. [address] [place], [address], [place]. tel: [phone] [facility], [address] [place] [address], [id number] , [place] tel: [phone] Dental Clinic fill (chief complaint) Encounter for screening for dental disorders 4 Jonh Parr. [address] [place], [place], [id number] , [place]. tel: [phone] [facility], [address] [place] [address], [id number] , [place] tel: [phone] [facility] Dental [facility] [place] (chief complaint) Encounter for screening for dental disorders 4 Jonh Parr. [address] [place], [place], [id number] , [place]. tel: [phone] PSYTX PT&/FAMILY 60 MINUTES [facility], [address] [place] [address], [id number] , [place] tel: [phone] [facility] Psychosis, unspecified psychosis typePTSD (post-traumatic stress disorder)Body mass index [BMI] 27.0-27.9, adultVitamin D deficiency, unspecified 4 Olman JENA Edna. [address] [place], [address], [place]. tel: [phone] PSYTX PT&/FAMILY 60 MINUTES [facility], [address] [place] [address], [id number] , [place] tel: [phone] [facility] Psychosis, unspecified psychosis typePTSD (post-traumatic stress disorder)Body mass index [BMI] 27.0-27.9, adultVitamin D deficiency, unspecified 4 Olman Snydercy. [address] [place] [address], [address], [place]. tel: [phone] OFFICE/OUTPA TIENT VISIT, EST [facility], [address] [place] [address], [id number] , [place] tel: [phone] [facility] (chief complaint) Psychosis, unspecified psychosis typePTSD (post-traumatic stress disorder)Body mass index [BMI] 27.0-27.9, adultVitamin D deficiency, unspecified 4 [facility]. [address] [place] [address], [address], . tel: [phone] PSYTX PT&/FAMILY 60 MINUTES [facility], [address] [place] [address], [id number] , [place] tel: [phone] [facility] Psychosis, unspecified psychosis typePTSD (post-traumatic stress disorder)Body mass index [BMI] 27.0-27.9, adult 4 Olman Bishop. [address] [place] [address], [address], [place]. tel: [phone] OFFICE/OUTPA TIENT VISIT, [facility], [address] [place] [address], [id number] , [place] tel: [phone] [facility] Telehealth (chief complaint) Psychosis, unspecified psychosis typePTSD (post-traumatic stress disorder)Body mass index [BMI] 27.0-27.9, adult 4 [facility]. [address] [place] [address], [address], [place]. tel: [phone] PSYTX PT&/FAMILY 60 MINUTES [facility], [address] [place] [address], [id number] , [place] tel: [phone] [facility] Psychosis, unspecified psychosis typePTSD (post-traumatic stress disorder)Need for hepatitis C screening testScreening for diabetes mellitusScreening for endocrine disorderScreening for lipid disordersScreening for HIV (human immunodeficiency virus)Body mass index [BMI] 26.0-26.9, adultBody mass index [BMI] 27.0-27.9, adult 4 Olman Bishop. [address] [place] [address], [address], [place]. tel: [phone] [facility], [address] [place] [address], [id number] , [place] tel: [phone] Dental Clinic DN (chief complaint) Body mass index [BMI] 27.0-27.9, adultEncounter for screening for dental disorders 4 Jonh Baumannal. [address] [place], [place], [id number] , [place]. tel: [phone] [facility], [address] [place] [address], [id number] , [place] tel: [phone] [facility] Encounter for routine general gynecological examination without abnormal findingEncounter for gynecological examination (general) (routine) without abnormal findings 4 Ray Hurley. [address] [place] [address], [address], [place]. tel: [phone] PSYTX PT&/FAMILY 60 MINUTES [facility], [address] [place] [address], [id number] , [place] tel: [phone] [facility] Psychosis, unspecified psychosis typePTSD (post-traumatic stress disorder)Need for hepatitis C screening testScreening for diabetes mellitusScreening for endocrine disorderScreening for lipid disordersScreening for HIV (human immunodeficiency virus)Body mass index [BMI] 26.0-26.9, adultBody mass index [BMI] 27.0-27.9, adult 4 Olman Bishop. [address] [place] [address], [address], [place]. tel: [phone] OFFICE/OUTPA TIENT VISIT, EST [facility], [address] [place] [address], [id number] , [place] tel: [phone] [facility] Behavioral health (chief complaint) Need for hepatitis C screening testScreening for diabetes mellitusScreening for endocrine disorderScreening for lipid disordersScreening for HIV (human immunodeficiency virus)Body mass index [BMI] 26.0-26.9, adultPsychosis, unspecified psychosis typePTSD (post-traumatic stress disorder)Body mass index [BMI] 27.0-27.9, adult 4 Ray Hurley. [address] [place] [address], [address], [place]. tel: [phone] PSYTX PT&/FAMILY 60 MINUTES [facility], [address] [place], [place], [id number] , [place] tel: [phone] [facility] Schizophrenia, unspecified 4 Olman Bishop. [address] [place], [address], [place]. tel: [phone] PSYTX PT&/FAMILY 60 MINUTES [facility], [address] [place], [place], [id number] , [place] tel: [phone] [facility] Schizophrenia, unspecified 4 Olman Bishop. [address] [place], [address], [place]. tel: [phone] Family History Family Member Type Diagnosis Age At Onset No Information Payers Payer name Insurance type Covered alliance party ID Authoriza tion(s) No Information Social History [...] Order HIV 1/0/ 2 Ag/Ab with Reflex ([id number]), Ordered on: Ordered Future Order: Lab Order Hemoglob in A1c ([id number]), Ordered on: Ordered Future Order: Lab Order Lipid Pa jose alejandro ([id number]), Ordered on: Ordered Future Order: Lab Order TSH Rfx on Abnormal to Free T4 ([id number]), Ordered on: Ordered Future Order: Lab Order Vitamin D, 25-Hydroxy ([id number]), Ordered on: Ordered Future Order: Lab Order Vitamin B12 and Folate ([id number]), Ordered on: Ordered Future Order: Lab Order Ammonia, Plasma ([id number]), Ordered on: Ordered Future Order: Lab Order CBC With Differential/Platelet ([id number]), Ordered on: Ordered Future Order: Lab Order Comp. Me tabolic Panel (14) ([id number]), Ordered on: Ordered Future Order: Lab Order Abram gleason Drug Analysis, Ur ([id number]), Ordered on: Ordered Future Order: Lab Order HCV Anti body W/ Reflex To Quantitative Real Time Pcr ([id number]), Ordered on: Ordered History Of Present Illness [...] Edna Thurman. Pt sees Dr. Rodriguez at [facility] for PCP. Pt is UTD on Pap. [facility] [place]. Pt denies homicidal thoughts. Admits to occasional [...]
--- OUTSIDE RECORDS SUMMARY | 2025-03-23 07:50 | XMS_ITS | Encounter Summary ---
Author Organization [facility] Address [address] [place] [address] Care Team Providers Care Counselor Camp Name Role Phone Dru Rodriguez DO Primary Care Provider [phone] Dru Rodriguez DO Unavailable Reason for Visit * ReasonCommentsRoutine Visit Encounter Details DateTypeDepartmentCare Team (Latest Contact Info)Wrgqfudtvmf76/14/2025 8:50 AM EDTRoutine [facility] [address] [place] [address] Kolton Cao DO [address] Shayne Davenport, [facility]11 Second trimester ([facility]); 20 weeks gestation of ([facility]); Type 1 diabetes mellitus during , antepartum ([facility]) Social History Tobacco UseTypesPacks/DayYears UsedDateSmoking [...] relatives?Twice a week03/11/2023How often do you attend mosque or sikh services?1 to 4 times per year03/11/2023o you belong to any clubs or organizations such as mosque groups, unions, Leikr or athletic laura ups, or school groups?No03/11/2023How often do you attend meetings of the clubs or organizations you belong to?Never03/11/2023re you , , , , never , or living with a partner?Qwgjbpq5803/11/2023 AUDIT-CAnswerDate RecordedQ1: How often do you have a drink containing alcohol? Monthly or less03/11/2023Q2: How many drinks containing alcohol do you have on a typical day when you are drinking?3 or Q3: How often do you have six or more drinks on one occasion?Less than uqwbwmg5103/11/2023Overall Financial Resource Strain (CARDIA)AnswerDate RecordedHow hard is it for you to pay for the very basics like food, housing, medical care, and heating?Somewhat hard 03/11/2023HQ-2AnswerDate RecordedPatient Health Questionnaire-2 Score0 03/25/2025[facility] [place] [facility] - Occupational Stress QuestionnaireAnswerDate [...] steady place to sleep or slept in [facility] (including now)?No03/11/2023Estimated Date of WgdoipwqFgmwleteGwv07/27/2026ased on last menstrual period of 10/30/2024Sex and Gender InformationValueDate RecordedSex Assigned at JjcgnFubadq66/01/2023 1:10 PM EDTLegal WryLxjtyt97/15/2023 6:51 PM EDTGender DdivrdubYfpdud09/01/2023 1:10 PM EDTSexual EnrjkmvnkkwVcvexbil79/01/2023 1:10 PM EDTdocumented as of this encounter Last Filed Vital Signs Vital SignReadingTime TakenCommentsBlood Jiocchcy578/6203/23/2025 8:56 AM EDT Pulse--Temperature--Respiratory Rate--Oxygen Saturation--Inhaled Oxygen Concentration--Mvsdlo55.3 kg (152 lb 12.8 oz)03/23/2025 8:56 AM [...] 8:57 AM Lesa Trevino LPNPatient Health Questionnaire-2 Lishd333 8:57 AM Lesa Emanuel LPN documented as [...] UNITS DAILY Insulin Disposable Pump (Omnipod 5 [id number] Pods Gen 5) misc 1 each, Subcutaneous, Every 3 days, CHANGE POD EVERY 3 DAYS DIRECTED insulin glargine (Lantus SoloStar) 100 UNIT/ML pen inject 22 units subcutaneously once daily Vit w/Dj-Tmitpuajw-OR (PNV PO) Take by mouth ALLERGIES Allergies[1] PROBLEMS Active Ambulatory Problems Diagnosis Date Noted Bulging lumbar disc 11/08/2022 Chronic fatigue 11/08/2022 Lumbago with sciatica, left side 11/08/2022 Sciatica 11/08/2022 Celiac disease in pediatric patient (HCC) 05/23/2016 Generalized anxiety disorder 01/01/2017 Mild intermittent asthma ([facility]) 05/23/2016 Panic disorder without agoraphobia 01/01/2017 Biliary dyskinesia 11/08/2022 Type 1 diabetes mellitus without complications ([facility]) 02/04/2023 Type 1 diabetes mellitus with hypoglycemia and without coma ([facility]) 02/04/2023 PTSD (post-traumatic stress disorder) 09/06/2023 Mixed obsessional thoughts and acts 09/13/2023 Diabetes type 1, controlled ([facility]) 01/25/2011 Hypoglycemia associated with diabetes (HCC) 03/09/2025 [...] nursing note reviewed. Exam conducted with a mental health aides teacher present. Vitals: Estimated body mass index is 31.94 kg/m?? as calculated from the following: Height as of 09/17/24: 4' 10 . Weight as of this encounter: 152 lb 12.8 oz. BP: 118/62 Patient's last menstrual period was 10/30/2024. ASSESSMENT & PLAN ICD-10-CM 1. Second trimester ([facility]) Z34.92 2. 20 weeks gestation of ([facility]) Z3A.20 POCT urinalysis dipstick manually resulted 3. Type 1 diabetes mellitus during , antepartum ([facility]) O24.019 Patient presents today for a routine [...] Plan of Treatment DateTypeDepartmentCare Team (Latest Contact Info)Afisqqtwskj99/12/2025 10:50 AM ESTRoutine [facility]YLarisa [address] [place] [phone] Katharine Cummins PA [address] [place] [address] documented as of this encounter Goals GoalPatient Goal TypeAssociated ProblemsRecent ProgressPatient-Stated?Author Reminders Care PlanOB RemindersNoOpen Scheduling, Backgrounddocumented as of this encounter Procedures Procedure NamePriorityDate/TimeAssociated DiagnosisCommentsPOCT URINALYSIS HCFVXJZHDsvapba29/14/2025 9:03 AM EDT 20 weeks gestation of ([facility]) documented in this encounter Results * (ABNORMAL) [...] / LateralityCollection Method / VolumeCollection Time Received IcutBunhj66/14/2025 9:03 AM EDT Narrative Authorizing ProviderResult TypeResult StatusCorey Kiley DOPOINT OF CARE TEST ENTER/EDIT ORDERABLESFinal Result documented in this encounter Visit Diagnoses Diagnosis Second trimester ([facility]) state, incidental 20 weeks gestation of ([facility]) Type 1 diabetes mellitus during , antepartum ([facility]) documented in this encounter Additional Health Concerns Active ProblemsNoted DateDiagnosed DateOB Anjdiawvv80/24/2025 documented as of this encounter Care Teams Team MemberRelationshipSpecialtyStart DateEnd Date Dru Rodriguez DO [address] [place] [address] PCP - GeneralFaohly Medicine10/22/22 Dru Rodriguez DO [address] [facility] [address] [address] PCP - Medical [facility]03/10/2312documented as of this encounter
--- OUTSIDE RECORDS SUMMARY | 2025-04-08 12:00 | XMS_ITS | Encounter Summary ---
Author Organization [facility] [employer] [facility] tem Address [id number] [address] [place] [address] Care Team Providers Care Tie Hacker Name Role Phone Dru Rodriguez DO Primary Care Provider [phone] Reason for Referral * Cardiology (Routine) - AuthorizedSpecialtyDiagnoses / ProceduresReferred By ContactReferred To Contact Diagnoses Type 1 diabetes mellitus complicating in second trimester, antepartum Procedures Echo complete W/O contrast Georgiana Esteban MD [address] [place] [address] Phone: tel: fax: Referral IDStatusReasonStart DateExpiration DateVisits RequestedVisits [id number]/30/202510/30/202611 Encounter Details DateTypeDepartmentCare Team (Latest Contact Info)Qlxltskiamm09/30/2025 1:00 PM EDTTelemedicine Maternal- Medicine at [facility] [address] [place] [phone] Georgiana Esteban MD [address] [place], [place] [id number] 22 weeks gestation of (Primary Dx); Type 1 diabetes mellitus complicating in second trimester, antepartum; Asthma complicating in second trimester Social History Tobacco UseTypesPacks/DayYears UsedDateSmoking Tobacco: NeverSmokeless Tobacco: NeverAlcohol UseStandard Drinks/WeekCommentsYes0 (1 standard drink = 0.6 oz pure alcohol)socialPI[facility] UtilitiesAnswerDate RecordedIn the past 12 months has the [employer], [employer], oil, or water [employer] threatened to shut off services in your [...] care, and heating?Not hard at all02/17/2025PHQ-2AnswerDate RecordedTotal Fhrad16206/12/2023[facility] [place] of Occupational Health - Occupational Stress QuestionnaireAnswerDate [...] part of a household?No02/17/2025hildcareAnswerDate RecordedDo problems getting attendant children's institution make it difficult for you to work [...] and direction in my life.Agree02/17/2025Estimated Date of MluxpibnSrnpheaiJee08/27/2026ased on last menstrual period of 10/30/2024Sex and Gender InformationValueDate RecordedSex Assigned at VpkwcSypzdj11/22/2025 1:51 AM EDTLegal SexFemale 01/13/2015 11:58 AM EDTGender SfbdampxBulprd35/22/2025 1:51 AM EDTSexual OrientationNot on filedocumented as of this encounter Patient Instructions * Attachments The following attachments cannot be sent through Care Everywhere. * Preeclampsia (Citizen Of [place]) documented in this encounter Progress Notes * Georgiana Esteban MD - 04/08/2025 1:00 PM EDT Video Visit via Real-time Synchronous Audiovisual Provider Location: [facility]- MEDICINE AT [address] [phone] Patient Location: Patient's home Patient Location Tour Production Supervisor: None Video Visit Consent Statement: I discussed [...] that there are some limitations compared to iipl-su-sdfh evaluations. We elected to proceed. [facility] Maternal- Medicine Follow up Note Reason For Consult: Follow-up secondary to type 1 diabetes, suboptimally controlled, on insulin pump. I received phone call earlier this week from [facility] where patient was evaluated and noted [...] History: Diagnosis Date Diabetes mellitus type I ([facility] PSHIST: Past Surgical History: Procedure Laterality [...] Physical Activity: Sufficiently Active (03/11/2023) Received from [facility] Exercise Vital Sign On average, how many days per week do you engage in moderate to strenuous exercise (like a brisk walk)?: 4 days On average, how many minutes do you engage in exercise at this level?: 80 min Stress: No Stress Concern Present (02/17/2025) [place] of Occupational Health - Occupational Stress Questionnaire Feeling of Stress : Not at all Social Connections: Unknown (10/22/2023) Received from [facility] Short Social Needs Screening - Social Connection [...] ART : 2000 SEX: F Accession Number: [id number] ORDERING PHYSICIAN: ROSY ARREDONDO REFERRING PHYSICIAN: BRYANT PULLIAM Coding Procedures 21724: Ultrasound, uterus, real time with image documentation, and maternal evaluation plus detailed anatomic examination, transabdominal approach;single or first gestation 10224: Ultrasound, uterus, real time with image documentation, transvaginal 71275: 3D rendering with interpretation and reporting of [...] examination.View: Suboptimal view: limited by position. Medical Medical Laboratory Assistant Medical Laboratory Assistant declined -------- ------ De La Rosa . [...] Femur 29.3 mm 19w 0d 24% Hadlock Heeofye45.4 mm 19w 4d 54% Randolph HC / AC 1.20 71% Hadlock EFW 284 g 29% Hadlock EFW (lb) 0 lb EFW (oz) 10 oz EFW by: Hadlock ([facility]-KO-LS-FL) Extended Tibia 25.1 mm 18w 6d 33% Randolph Driller Hand 6.5 mm CM 3.4 mm 9% Nicolaides [...] visualized: Heart / Thorax 4- chamber view. 7-fjryil-vhydxrd view. Diaphragm. The following structures could not [...] view not examined 3-vessel view not examined 3-vrhull-oknsstv view suboptimal Aortic arch view not examined [...] primary OB provider unless otherwise specified by [facility]. Results forwarded to ordering provider so [...] to insurance coverage. She has her primary rn perinatal Mily Queen ([facility]) and we will follow up with her [...] length at 20-22 weeks. [facility] [x] Has follow-up visit with [facility] provider on 04/13/2025. Patient is preferably to see ANDRE Gallegos. [x] Serial growth assessments Q 3-4 weeks [...] Esteban MD, PhD, FACOG (she/hers) Maternal- Medicine [facility] [address] [facility] [facility] [address]st [place] [address] This document was created with [employer] technology. Though I make every effort to review the dictation as it is transcribed, on occasion the spoken word can be misinterpreted by the technology leading to inappropriate words, phrases, or sentences. This note is addressed to the requesting provider as a consultation for clinical guidance. Specificmedical abbreviations are occasionally used and those are generally approved by the [place]?Board of?Obstetrics and?Gynecology?as well as?[place]???s abbreviations. The above plan of care was based solely on the diagnoses for which a consultation was requested. ?More frequent testing may be indicated based on her other medical/obstetrical conditions. The management of other or medical conditions is beyond the scope of requested consultation and will c guillermo to be followed by the primary community development technician or primary care provider. Note to patient: [...] Plan of Treatment DateTypeDepartmentCare Team (Latest Contact Info)Vmezrlausuc85/07/2025 2:00 PM ESTAppointment [facility] - Cardiovascular [address] [place] [address] 04/20/2025 10:30 AM ESTTelemedicine Maternal- Medicine at [facility] [address] [place] [phone] Rosy Arredondo PA-C [address] [address] 05/13/2025 8:45 AM ESTAppointment [facility] - [facility] US Imaging [address] [place] [phone] NameTypePriorityAssociated DiagnosesOrder ScheduleEcho complete W/O contrast EchocardiographyRoutine [...] follow-up plan has been documented for the fhbyqnv2706/12/2023 4:35 PM ESTdocumented as of this encounter Care Teams Team MemberRelationshipSpecialtyStart DateEnd Date Petznick, Dru C, DO [address] [place] [phone] [facility] - [facility]01/01/17documented as of this encounter
--- OUTSIDE RECORDS SUMMARY | 2025-04-08 12:50 | XMS_ITS | Encounter Summary ---
Author Organization [facility] Address [address] [place] [address] Care Team Providers Care Welder Manufacture Name Role Phone JenniferDru April DO Primary Care Provider [phone] Dru Rodriguez DO Unavailable [phone] Reason for Visit * ReasonCommentsRoutine Visit Encounter Details DateTypeDepartmentCare Team (Latest Contact Info)Awrbtxlbjpd23/30/2025 1:50 PM EDTRoutine [facility] Iss[facility] OBGYLarisa [address] [place] [phone] Katharine Cummins PA [address] [place], [facility] Second trimester ([facility] 22 weeks [facility]); Yeast infection Social History Tobacco UseTypesPacks/DayYears UsedDateSmoking [...] relatives?Twice a week03/11/2023How often do you attend alevism or alevism services?1 to 4 times per year03/11/2023o you belong to any clubs or organizations such as alevism groups, unions, fraEndoLumix Technology or athletic laura ups, or school groups?No03/11/2023How often do you attend meetings of the clubs or organizations you belong to?Never03/11/2023re you , , , , never , or living with a partner?Rmnupum2003/11/2023 AUDIT-CAnswerDate RecordedQ1: How often do you have a drink containing alcohol? Monthly or less03/11/2023Q2: How many drinks containing alcohol do you have on a typical day when you are drinking?3 or Q3: How often do you have six or more drinks on one occasion?Less than dfydivo9503/11/2023Overall Financial Resource Strain (CARDIA)AnswerDate RecordedHow hard is it for you to pay for the very basics like food, housing, medical care, and heating?Somewhat hard 03/11/2023HQ-2AnswerDate RecordedPatient Health Questionnaire-2 Score0 03/25/2025[facility] [place] of Occupational Health - Occupational Stress QuestionnaireAnswerDate [...] steady place to sleep or slept in [facility] (including now)?No03/11/2023Estimated Date of LaxopaorOprsubviCcf20/27/2026ased on last menstrual period of 10/30/2024Sex and Gender InformationValueDate RecordedSex Assigned at GpzurWhssns77/01/2023 1:10 PM EDTLegal UigPushhh61/15/2023 6:51 PM EDTGender RtmgwauqDezehq12/01/2023 1:10 PM EDTSexual ChtncwfvoehMgvzktdv28/01/2023 1:10 PM EDTdocumented as of this encounter Last Filed Vital Signs Vital SignReadingTime TakenCommentsBlood Tlhteiwq485/7204/08/2025 1:59 PM EDT Pulse--Temperature--Respiratory Rate--Oxygen Saturation--Inhaled Oxygen Concentration--Nppxtg77.5 kg (159 lb 12 oz)04/08/2025 1:59 PM [...] unresponsive hypoglycemia cholecalciferol (Vitamin D-3) 1.25 MG (73243 UT) capsule every week Continuous Blood Gluc [...] UNITS DAILY Insulin Disposable Pump (Omnipod 5 PtnE1V4 Pods Gen 5) misc 1 each, Subcutaneous, [...] TO CHECK GLUCOSE 4 TIMES DAILY Vit w/Rz-Pxmfdkcie-AH (PNV PO) Take by mouth promethazine (PHENERGAN) 25 mg, Every 6 hours PRN pyridoxine (VITAMIN B-6) 100 mg, Every morning ALLERGIES Allergies Allergen Reactions Amoxicillin Anaphylaxis Mouth irritation PROBLEMS Active Ambulatory Problems Diagnosis Date Noted Bulging lumbar disc 11/08/2022 Chronic fatigue 11/08/2022 Lumbago with sciatica, left side 11/08/2022 Sciatica 11/08/2022 Celiac disease in pediatric patient ([facility]) 05/23/2016 Generalized anxiety disorder 01/01/2017 Mild intermittent asthma ([facility]) 05/23/2016 Panic disorder without agoraphobia 01/01/2017 Biliary dyskinesia 11/08/2022 Type 1 diabetes mellitus without complications ([facility]) 02/04/2023 Type 1 diabetes mellitus with [...] nursing note reviewed. Exam conducted with a tare weigher present. Vitals: Estimated body mass index is 33.39 kg/m?? as calculated from the following: Height as of 03/25/25: 4' 10 . Weight as of this encounter: 159 lb 12 oz. BP: 126/72 Patient's last menstrual period was 10/30/2024. Assessment/Plan ICD-10-CM 1. Second trimester ([facility]) Z34.92 POCT urinalysis dipstick manually resulted 2. 22 weeks gestation of ([facility]) Z3A.22 3. Yeast infection B37.9 fluconazole (Diflucan) [...] Plan of Treatment DateTypeDepartmentCare Team (Latest Contact Info)Bnfgljwejli15/12/2025 10:50 AM ESTRoutine [facility] [address] [place] [address] Katharine Cummins PA [address] [place] [address] NameTypePriorityAssociated DiagnosesOrder ScheduleCBC and differentialLabRoutine Second trimester ([facility]) 22 weeks gestation of ([facility]) Ordered: 04/08/2025documented as of this encounter Goals GoalPatient Goal TypeAssociated ProblemsRecent ProgressPatient-Stated?Author Reminders Care PlanOB RemindersNoOpen Scheduling, Backgrounddocumented as of this encounter Procedures Procedure NamePriorityDate/TimeAssociated DiagnosisCommentsPOCT URINALYSIS QYPNNZQFYkslhdh59/30/2025 2:07 PM EDT Second trimester ([facility]) documented in this encounter Results * [...] Location / LateralityCollection Method / VolumeCollection TimeReceived MvryFmgkj31/30/2025 2:07 PM EDT Narrative Authorizing ProviderResult TypeResult StatusDixie Gan NPPOINT OF CARE TEST ENTER/EDIT ORDERABLESFinal Result documented in this encounter Visit Diagnoses Diagnosis Second trimester ([facility]) state, incidental 22 weeks gestation of ([facility]) Yeast infection documented in this encounter Additional Health Concerns Active ProblemsNoted DateDiagnosed DateOB Rnpwbmxyo25/24/2025 documented as of this encounter Care Teams Team MemberRelationshipSpecialtyStart DateEnd Date Dru Rodriguez DO [address] [place] [address] PCP - GeneralFamily Medicine10/22/22 Dru Rodriguez DO [address] [place] [address] PCP - Medical [place] Ikcjvosoab00/1/2312documented as of this encounter
--- OUTSIDE RECORDS SUMMARY | 2025-04-12 10:00 | XMS_ITS | Encounter Summary ---
Author Organization [facility] tem Address [id number] [address] [place] [address] Care Team Providers Care Copying Machine Mechanic Name Role Phone JenniferDru April MUNGUIA Primary Care Provider [phone] Encounter Details DateTypeDepartmentCare Team (Latest Contact Info)Zipalgormdl49/03/2025 10:00 AM ESTTelemedicine Maternal- [facility] at [facility] [address] [place] [phone] Poncho Peña MD [address] [facility] [place] [address] Type 1 diabetes mellitus during in second trimester (Primary Dx); Type 1 diabetes mellitus during in first trimester Social History Tobacco UseTypesPacks/DayYears UsedDateSmoking Tobacco: NeverSmokeless Tobacco: NeverAlcohol UseStandard Drinks/WeekCommentsYes0 (1 standard drink = 0.6 oz pure alcohol)socialAH UtilitiesAnswerDate RecordedIn the past 12 months has the electric, gas, oil, or water [employer] threatened to shut off services in your [...] care, and heating?Not hard at all02/17/2025PHQ-2AnswerDate RecordedTotal Icavz49506/12/2023[facility] [place] [facility] - Occupational Stress QuestionnaireAnswerDate [...] a household?No02/17/2025hildcareAnswerDate RecordedDo problems getting child development director make it difficult for you to work [...] and direction in my life.Agree02/17/2025Estimated Date of PfneweczGjhwhqthBkj82/27/2026Based on last menstrual period of 10/30/2024Sex and Gender InformationValueDate RecordedSex Assigned at CrxlkQvwqvl50/22/2025 1:51 AM EDTLegal SexFemale 01/13/2015 11:58 AM EDTGender PqjkmzybYgozdf75/22/2025 1:51 AM EDTSexual OrientationNot on filedocumented as [...] Diagnosis Mild intermittent asthma DKA, type 1 ([facility] Generalized anxiety disorder Panic disorder without agoraphobia Acute renal insufficiency Mechanical breakdown of insulin pump DKA, type 1, not at goal ([facility]) Diabetic ketoacidosis associated with type 1 diabetes mellitus ([facility]) Type 1 diabetes mellitus during in second trimester Uncontrolled type 1 diabetes mellitus with hyperglycemia, with long-term current use of insulin ([facility]) ALLERGIES: Allergies Allergen Reactions Amoxicillin Has since [...] History: Diagnosis Date Diabetes mellitus type I ([facility] REVIEW OF SYSTEMS: Head and Neck: Negative [...] you for allowing me to participate in [facility]. If there are any questions, please do not hesitate to call me. Sincerely, PONCHO PEÑA MD Video Visit via Real-time Synchronous Audiovisual Provider Location: [facility]ER[facility]- MEDICINE AT [facility] [address] [facility] [phone] Patient Location: Patient's home Patient Location Secretarial Stenographer: None Video Visit Consent Statement: I discussed [...] that there are some limitations compared to mrek-ez-bqkb evaluations. We elected to proceed. documented in this encounter Plan of Treatment DateTypeDepartmentCare Team (Latest Contact Info)Dslklffdznj73/07/2025 2:00 PM ESTAppointment [facility] [address] [place] [address] 04/20/2025 10:30 AM ESTTelemedicine Maternal- Medicine at [facility] [address] [place] [phone] Rosy Arredondo, PA-C [address] [address] 05/13/2025 8:45 AM ESTAppointment [facility] [address] [place] [address] documented as of this encounter Visit Diagnoses Diagnosis Type 1 diabetes mellitus during in second trimester- Primary Type 1 diabetes mellitus during in first trimester documented in this encounter Additional Health Concerns AssessmentNoted TimePHQ-9 Depression Total Score: 8:31 AM ESTA Body Mass Index follow-up plan has been documented for the daudehv3606/12/2023 4:35 PM ESTdocumented as of this encounter Care Teams Team MemberRelationshipSpecialtyStart DateEnd Date Dru Rodriguez DO [address] [place] [address] PCP - General01/01/17documented as of this encounter
--- OUTSIDE RECORDS SUMMARY | 2025-04-14 08:00 | XMS_ITS | Encounter Summary ---
Author Organization [facility] tem Address [id number] [address] [place] [address] Care Team Providers Care Employment Specialist Name Role Phone Dru Rodriguez DO Primary Care Provider [phone]- [phone] Reason for Referral * Diagnostic Imaging (Routine) - Pending ReviewSpecialtyDiagnoses / Procedures Referred By ContactReferred To ContactMaternal and Medicine Diagnoses Encounter for other screening follow-up Procedures US [facility] with or without consult Franci Miller MD [address] [place] [address] Phone: tel: fax: Maternal- Medicine at [facility] [address] [place] [address] Phone: tel: fax: Referral IDStatusReasonStart DateExpiration DateVisits RequestedVisits [id number] Reason for Visit * Diagnostic Imaging (Routine) - Pending ReviewSpecialtyDiagnoses / Procedures Referred By ContactReferred To ContactMaternal and Medicine Diagnoses Encounter for other screening follow-up Procedures US [facility] with or without consult Franci Miller MD [address] [place] [address] Phone: tel: fax: Maternal- Medicine at [facility] [address] [place] [address] Phone: tel: fax: Referral IDStatusReasonStart DateExpiration DateVisits RequestedVisits [id number] Encounter Details DateTypeDepartmentCare Team (Latest Contact Info)Hsqcwxxifdq31/05/2025 8:00 AM ESTHospital Encounter [facility] - [facility] US Imaging [address] [facility] [place] [address] Encounter for other screening follow-up Social History Tobacco UseTypesPacks/DayYears UsedDateSmoking Tobacco: NeverSmokeless Tobacco: NeverAlcohol UseStandard Drinks/WeekCommentsYes0 (1 standard drink = 0.6 oz pure alcohol)[facility] UtilitiesAnswerDate RecordedIn the past 12 months [...] care, and heating?Not hard at all02/17/2025PHQ-2AnswerDate RecordedTotal Bdlgf40506/12/2023Finmountain west medical center Reform of Occupational Health - Occupational Stress QuestionnaireAnswerDate [...] a household?No02/17/2025hildcareAnswerDate RecordedDo problems getting child development associate teacher make it difficult for you [...] and direction in my life.Agree02/17/2025Estimated Date of KyabcxgiVyksoirpKxf18/27/2026ased on last menstrual period of 10/30/2024Sex and Gender InformationValueDate RecordedSex Assigned at AvwzwBhjkcj67/22/2025 1:51 AM EDTLegal SexFemale 01/13/2015 11:58 AM EDTGender MqijbgqnXlbnxf18/22/2025 1:51 AM EDTSexual OrientationNot on filedocumented as of this encounter Plan of Treatment DateTypeDepartmentCare Team (Latest Contact Info)Qevqraycqou96/07/2025 2:00 PM ESTAppointment [facility] [address] [place] [phone] 04/20/2025 10:30 AM ESTTelemedicine Maternal- Medicine at [facility] [address] [place] [address] Rosy Arredondo PA-C [address] [place] [address] [place] [id number] 05/13/2025 8:45 AM ESTAppointment [facility] - [facility] US Imaging [address] [place] [address] documented as of this encounter Procedures Procedure NamePriorityDate/TimeAssociated DiagnosisCommentsUS [facility] OB FOLLOW-UP, 1 AMOYEOtbjiqr82/05/2025 9:34 AM EST Encounter for other screening follow-up documented in this encounter Results * US [facility] OB FOLLOW-UP, 1 FETUS (04/14/2025 9:34 AM EST)Anatomical Region LateralityModalityOB-GYNUltrasoundSpecimen (Source)Anatomical Location / LateralityCollection Method / VolumeCollection TimeReceived Time04/14/2025 8:12 AM EST Narrative 04/14/2025 10:18 AM EST NAME: ??DARREN ART : 2000 SEX: F Accession Number: [id number] ORDERING PHYSICIAN: FRANCI MILLER REFERRING PHYSICIAN: BRYANT PULLIAM Coding Procedures ? 38520: Ultrasound, uterus, real time with image documentation, follow up,transabdominal ? approach per fetus ? 22935: Echocardiography, , cardiovascular system, real time with image documentation (2D), with or ? without M-mode recording Indication Screening for follow-up survey, Pre-existing Type 1 diabetes in , Screening for congenitalcardiac abnormality. History OB History ? 1 Current Cell free DNA ?low risk analysis Maternal Assessment Physical Exam ??Height 147 cm, 4 ft 10 in. Weight 65 kg, 143 lb. Initial weight 56 kg, 123 lb. BMI 29.89 kg/m??. Initial ? BMI 25.71 kg/m??. Weight gain 9 kg, 20 lb Method Transabdominal ultrasound examination. De La Rosa . Number of fetuses: 1 Dating LMP on: ?10/30/2024 GA by LMP ?23 w + 5 d MANDO by LMP: ?08/06/2025 Previous Ultrasound on: ?12/24/2024 Type of prior assessment: ?GA GA at prior assessment date ?7 w + 3 d GA by previous U/S ? 23 w + 2 d MANDO by previous Ultrasound: ?08/09/2025 Ultrasound examination on: ? 04/14/2025 GA by U/S based upon: ??AC, BPD, Femur, HC GA by U/S ?23 w + 4 d MANDO by U/S: ?08/07/2025 Assigned: ?based on the LMP, selected on 03/16/2025 Assigned GA (weeks days) ? 23 w + 5 d Assigned MANDO: ??08/06/2025 General Evaluation Cardiac activity Present. FHR 141 bpm. Presentation: sonido breech Placenta: Placental site: posterior, previously documented away from cervical os Umbilical cord: Cord vessels: 3 vessel cord. Insertion site: documented previously Amniotic fluid: Amount of AF: normal amount. MVP 5.9 cm Biometry Standard BPD ?57.0 mm 23w 3d 33% Hadlock OFD ?79.4 mm 25w 6d 97% Randolph HC ? 219.4 mm ?24w 0d 43% Hadlock AC ? 196.6 mm ?24w 2d 62% Hadlock Femur ??39.4 mm 22w 5d 11% Hadlock Humerus ?37.7 mm 23w 2d 25% Randolph HC / AC ?1.12 EFW ?614 g ?38% Hadlock EFW (lb) ? 1 lb EFW (oz) ? 6 oz EFW by: ?Hadlock (DAN-EC-AN-FL) Extended Tibia ??36.2 mm 23w 4d 46% Randolph Freight Caller ? 6.2 mm Inner IOD ?13.8 mm Outer IOD ?35.1 mm Head / Face / Neck Cephalic index 0.72 ? 2% Nicolaides Nasal bone: ?present Extremities / Bony Struc FL / BPD ? 0.69 FL / HC ?0.18 FL / AC ?0.20 Other Structures FHR ?141 bpm Anatomy The following structures appear normal: Head/Neck: Cranium. Lateral ventricles. Cavum septi pellucidi. Parenchyma. ? Neck. Face: Profile. Nasal bone. Maxilla. Mandible. Orbits. Heart/Thorax: 4-chamber view. RVOT view. LVOT view. 3-vessel view. 4-kkylzu-uvokccc view. Great vessels. ? Diaphragm. Abdomen: Stomach. Kidneys. Bladder. Small bowel. Large bowel. The following structures were documented previously: Head / Neck ?Choroid plexus. Midline falx. Cerebellum. Cisterna magna. Vermis. ? Nuchal fold. Face ?? Lips. Nose. Heart / Thorax Right lung. Left lung. Abdomen ?Abdom. wall. Cord insertion. Right renal artery. Left renal artery. Genitals. Spine: Cervical spine. Thoracic spine. Lumbar spine. Sacral spine. Extremities/Skeleton: Right upper arm. Right forearm. Right hand. Left upper arm. Left forearm. Left hand. Right upper leg. ? Right lower leg. Right foot. Left upper leg. Left lower leg. Left foot. Echocardiogram Situs ?documented previously Cardiac position ? normal Cardiac axis ?? normal Cardiac size ?? normal (approx. 1/3 of thoracic area) Cardiac rhythm regular (normal) 4-chamber view normal LVOT view ?normal RVOT view ?normal 3-vessel view ??normal 5-vzrmsg-rxzipkd view ??normal Aortic arch view ? normal Ductal arch view ? normal Bicaval view ?? documented previously Interventricular septum ?normal Venous-atrial connections ?documented previously AV connections normal VA connections normal Pulmonary veins ?documented previously Right atrium ?? normal Left atrium ? normal Atrial septum ??normal Foramen ovale ??normal Right ventricle ?normal Left ventricle normal Ventricular septum ? normal Cross-over gr. arteries ?anterior great artery (confirmed to be the pulmonary artery by its branching) which ? crosses the course of the proximal aorta, indicative of normal relationship ofthe ? great arteries Main PA ?the main pulmonary artery can be seen bifurcating into the ductus arteriosus and the ? right pulmonary artery Pulmonary arteries ? normal Linear insertion of AV valves ??no Pericardial effusion ?? no Maternal Structures Uterus Visualized Cervix Suboptimal ? Approach - Transabdominal Right Ovary ?Not visualized Left Ovary ? Not visualized Cul de Sac ? Suboptimal Impression Single live intrauterine consistent with 23w 5d with an MANDO of 08/06/2025. Normal growth. EFW measures at the 38%, AC measures at the 62%. anatomic survey and echocardiogram did not reveal sonographic evidence of any gross structural abnormalities. Amniotic fluid MVP measures 5.9 cm. Recommendations Please see [facility] recommendations from prior clinical and/or ultrasound report documentation. The patient is scheduled in four weeks for follow up growth ultrasound. Subsequent follow up or other follow up as clinically determined by primary OB provider unless otherwise specified by [facility]. Results forwarded to ordering provider so they can follow up with the patient as necessary. Procedure Note Bhumi Duval MD - 04/14/2025 NAME: DARREN ART : 2000 SEX: F Accession Number: [id number] ORDERING PHYSICIAN: FRANCI MILLER REFERRING PHYSICIAN: BRYANT PULLIAM Coding Procedures 75000: Ultrasound, uterus, real time with image documentation, follow up, transabdominal approach per fetus 36663: Echocardiography, , cardiovascular system, real timewith image documentation (2D), with or without M-mode recording Indication Screening for follow-up survey, Pre-existing Type 1 diabetes in , Screening for congenital cardiac abnormality. History OB History 1 Current Cell free DNA low risk analysis Maternal Assessment Physical Exam Height 147 cm, 4 ft 10 in. Weight 65 kg, 143 lb. Initialweight 56 kg, 123 lb. BMI 29.89 kg/m??. Initial BMI 25.71 kg/m??. Weight gain 9 kg, 20 lb Method Transabdominal ultrasound examination. De La Rosa . Number of fetuses: 1 Dating LMP on: 10/30/2024 GA by LMP 23 w + 5 d MANDO by LMP: 08/06/2025 Previous Ultrasound on: 12/24/2024 Type of prior assessment: GA GA at prior assessment date 7 w + 3 d GA by previous U/S 23 w + 2 d MANDO by previous Ultrasound: 08/09/2025 Ultrasound examination on: 04/14/2025 GA by U/S based upon: AC, BPD, Femur, HC GA by U/S 23 w + 4 d MANDO by U/S: 08/07/2025 Assigned: based on the LMP, selected on 03/16/2025 Assigned GA (weeks days) 23 w + 5 d Assigned MANDO: 08/06/2025 General Evaluation Cardiac activity Present. FHR 141 bpm. Presentation: sonido breech Placenta: Placental site: posterior, previously documented away fromcervical os Umbilical cord: Cord vessels: 3 vessel cord. Insertion site: documented previously Amniotic fluid: Amount of AF: normal amount. MVP 5.9 cm Biometry Standard BPD 57.0 mm 23w 3d 33% Hadlock OFD 79.4 mm 25w 6d 97% Randolph HC 219.4 mm 24w 0d 43% Hadlock AC 196.6 mm 24w 2d 62% Hadlock Femur 39.4 mm 22w 5d 11% Hadlock Humerus 37.7 mm 23w 2d 25% Randolph HC / AC 1.12 EFW 614 g 38% Hadlock EFW (lb) 1 lb EFW (oz) 6 oz EFW by: Hadlock (EML-NN-BB-FL) Extended Tibia 36.2 mm 23w 4d 46% Randolph Freight Caller 6.2 mm Inner IOD 13.8 mm Outer IOD 35.1 mm Head / Face / Neck Cephalic index 0.72 2% Nicolaides Nasal bone: present Extremities / Bony Struc FL / BPD 0.69 FL / HC 0.18 FL / AC 0.20 Other Structures FHR 141 bpm Anatomy The following structures appear normal: Head/Neck: Cranium. Lateral ventricles. Cavum septi pellucidi.Parenchyma. Neck. Face: Profile. Nasal bone. Maxilla. Mandible. Orbits. Heart/Thorax: 4-chamber view. RVOT view. LVOT view. 3-vessel view. 5-bygamv-vjnqmfk view. Great vessels. Diaphragm. Abdomen: Stomach. Kidneys. Bladder. Small bowel. Large bowel. The following structures were documented previously: Head / Neck Choroid plexus. Midline falx. Cerebellum. Cisterna magna.Vermis. Nuchal fold. Face Lips. Nose. Heart / Thorax Right lung. Left lung. Abdomen Abdom. wall. Cord insertion. Right renal artery. Left renalartery. Genitals. Spine: Cervical spine. Thoracic spine. Lumbar spine. Sacral spine. Extremities/Skeleton: Right upper arm. Right forearm. Right hand. Leftupper arm. Left forearm. Left hand. Right upper leg. Right lower leg. Right foot. Left upper leg. Left lower leg. Leftfoot. Echocardiogram Situs documented previously Cardiac position normal Cardiac axis normal Cardiac size normal (approx. 1/3 of thoracic area) Cardiac rhythm regular (normal) 4-chamber view normal LVOT view normal RVOT view normal 3-vessel view normal 9-agtziz-qzbqqsd view normal Aortic arch view normal Ductal arch view normal Bicaval view documented previously Interventricular septum normal Venous-atrial connections documented previously AV connections normal VA connections normal Pulmonary veins documented previously Right atrium normal Left atrium normal Atrial septum normal Foramen ovale normal Right ventricle normal Left ventricle normal Ventricular septum normal Cross-over gr. arteries anterior great artery (confirmed to be thepulmonary artery by its branching) which crosses the course of the proximal aorta, indicative ofnormal relationship of the great arteries Main PA the main pulmonary artery can be seen bifurcatinginto the ductus arteriosus and the right pulmonary artery Pulmonary arteries normal Linear insertion of AV valves no Pericardial effusion no Maternal Structures Uterus Visualized Cervix Suboptimal Approach - Transabdominal Right Ovary Not visualized Left Ovary Not visualized Cul de Sac Suboptimal Impression Single live intrauterine consistent with 23w 5d with an MANDO of 08/06/2025. Normal growth. EFW measures at the 38%, AC measures at the 62%. anatomic survey and echocardiogram did not reveal sonographic evidence of any gross structural abnormalities. Amniotic fluid MVP measures 5.9 cm. Recommendations Please see M recommendations from prior clinical and/or ultrasoundreport documentation. The patient is scheduled in four weeks for follow up growth ultrasound. Subsequent follow up or other follow up as clinically determined byprimary OB provider unless otherwise specified by M. Results forwarded to ordering provider so they can follow up with thepatient as necessary. Authorizing ProviderResult TypeResult StatusFranci AMES US ORDERABLES Final Result documented in this encounter Visit Diagnoses Diagnosis Encounter for other screening follow-up documented in this encounter Additional Health Concerns AssessmentNoted TimePHQ-9 Depression Total Score: 8:31 AM ESTA Body Mass Index follow-up plan has been documented for the oyiateb6106/12/2023 4:35 PM ESTdocumented as of this encounter Care Teams Team MemberRelationshipSpecialtyStart DateEnd Date Dru Rodriguez DO [address] [place] [address] PCP - General01/01/17documented as of this encounter
--- OUTSIDE RECORDS SUMMARY | 2025-04-14 12:26 | XMS_ITS | Encounter Summary ---
Author Organization [facility] Address [address] [place] [address] Care Team Providers Care Substation Operator Conversion Name Role Phone JenniferDru April DO Primary Care Provider [phone]- [phone] Dru Rodriguez DO Unavailable [phone] Encounter Details DateTypeDepartmentCare Team (Latest Contact Info)Yfulbzkwpky21/30/2025Patient Outreach [facility] [address] [place] [id number] Aline Dudley, BRANDT [address] [place] [address] Social History Tobacco UseTypesPacks/DayYears UsedDateSmoking Tobacco: NeverSmokeless [...] relatives?Twice a week03/11/2023How often do you attend spiritism or pentecostal services?1 to 4 times per year03/11/2023o you belong to any clubs or organizations such as spiritism groups, unions, fraternal or athletic laura ups, or school groups?No03/11/2023How often do you attend meetings of the clubs or organizations you belong to?Never03/11/2023re you , , , , never , or living with a partner?Mmpopkg0903/11/2023 AUDIT-CAnswerDate RecordedQ1: How often do you have a drink containing alcohol? Monthly or less03/11/2023Q2: How many drinks containing alcohol do you have on a typical day when you are drinking?3 or Q3: How often do you have six or more drinks on one occasion?Less than dlvnutm9103/11/2023Overall Financial Resource Strain (CARDIA)AnswerDate RecordedHow hard is it for you to pay for the very basics like food, housing, medical care, and heating?Somewhat hard 03/11/2023HQ-2AnswerDate RecordedPatient Health Questionnaire-2 Score0 03/25/2025[facility] [place] of Occupational Health - Occupational Stress QuestionnaireAnswerDate [...] slept in ashelter (including now)?No03/11/2023Estimated Date of QvwfzpdzBtrmqhetQjl53/27/2026ased on last menstrual period of 10/30/2024Sex and Gender InformationValueDate RecordedSex Assigned at FwuegXmqcaj93/01/2023 1:10 PM EDTLegal YoaYjfggc13/15/2023 6:51 PM EDTGender DnwxiscpYdkonq94/01/2023 1:10 PM EDTSexual TtuthqrpqwkPlzqpnph94/01/2023 1:10 PM EDTdocumented as of this encounter Progress Notes * Aline Dudley RN - 04/08/2025 10:51 AM EDT Images from the original note were not included. Flowsheet Row Patient Outreach from 04/08/2025 in [facility] with Aline Dudley RN Hospital Information ED, Hospital or Long Term Facility Discharge? ED Patient has been contacted within 2 days of being seen in the ED Yes Diagnosis Hyperglycemia, Hypomagnesemia Discharge Date 04/06/25 Discharged To: Home Setting Discharge Hospital [facility] Engagement Call Start Time 1051 [...] upcoming specialty appointments? Yes [following up with [facility] CABLE [facility]ER] Nursing Interventions Advised patient to keep appointment [...] pt has appt to follow up with [facility] apprenticeship consultant. Pt's first (22 weeks). Call End Time 1058 documented in this encounter Plan of Treatment DateTypeDepartmentCare Team (Latest Contact Info)Ebidkcvhwlg72/12/2025 10:50 AM ESTRoutine [facility] [address] [address] Katharine Cummins PA [address] [place] [address] documented as of this encounter Goals GoalPatient Goal TypeAssociated ProblemsRecent ProgressPatient-Stated?Author Reminders Care PlanOB RemindersNoOpen Scheduling, Backgrounddocumented as of this encounter Visit Diagnoses Diagnosis Hyperglycemia- Primary Other abnormal glucose Hypomagnesemia Disorders of magnesium metabolism Type 1 diabetes mellitus without complications (HCC) documented in this encounter Additional Health Concerns Active ProblemsNoted DateDiagnosed DateOB Zhxswxcyk48/24/2025 documented as of this encounter Care Teams Team MemberRelationshipSpecialtyStart DateEnd Date Dru Rodriguez DO [address] [place] [address] PCP - GeneralFamily Medicine10/22/22 Dru Rodriguez DO [address] [place] [address] PCP - Medical [place] Kwfwzeotdt66/1/2312documented as of this encounter
--- OUTSIDE RECORDS SUMMARY | 2025-04-14 12:26 | XMS_ITS | Encounter Summary ---
Author Organization [facility] tem Address [id number] [address] [place] [address] Care Team Providers Care Senior Investigator Name Role Phone Dru Rodriguez Primary Care Provider [phone]- [phone] Encounter Details DateTypeDepartmentCare Team (Latest Contact Info)Rynizmlijyz57/27/2025Orders Only Maternal- Medicine at [facility] [address] [facility] [place] [phone] Clarita Mchugh, [facility] Social History Tobacco UseTypesPacks/DayYears UsedDateSmoking Tobacco: NeverSmokeless Tobacco: NeverAlcohol UseStandard Drinks/WeekCommentsYes0 (1 standard drink = 0.6 oz pure alcohol)[facility] UtilitiesAnswerDate RecordedIn the past 12 months has the [employer], gas, oil, or water [address] threatened to shut off services in your [...] care, and heating?Not hard at all02/17/2025PHQ-2AnswerDate RecordedTotal Wiwxp41106/12/2023[facility] [place] of Occupational Health - Occupational Stress QuestionnaireAnswerDate [...] of a household?No02/17/2025hildcareAnswerDate RecordedDo problems getting child monitor make it difficult for you to work [...] and direction in my life.Agree02/17/2025Estimated Date of CgtlbaogWnmxitduFlv76/27/2026Based on last menstrual period of 10/30/2024Sex and Gender InformationValueDate RecordedSex Assigned at SxcgcWlfrkl48/22/2025 1:51 AM EDTLegal SexFemale 01/13/2015 11:58 AM EDTGender AtvltlaiGzscga07/22/2025 1:51 AM EDTSexual OrientationNot on filedocumented as of this encounter Plan of Treatment DateTypeDepartmentCare Team (Latest Contact Info)Ctkgthizisz05/07/2025 2:00 PM ESTAppointment [facility] [address] [place] [address] 04/20/2025 10:30 AM ESTTelemedicine Maternal- Medicine at [facility] [address] [place] [phone] Rosy Arredondo, PASocoC [address] [address] 05/13/2025 8:45 AM ESTAppointment [facility] - MF US Imaging [address] [place] [phone] documented as of this encounter Visit Diagnoses Not on filedocumented in this encounter Additional Health Concerns AssessmentNoted TimePHQ-9 Depression Total Score: 8:31 AM ESTA Body Mass Index follow-up plan has been documented for the ydftzwh1606/12/2023 4:35 PM ESTdocumented as of this encounter Care Teams Team MemberRelationshipSpecialtyStart DateEnd Date Dru Rodriguez DO [address] [place] [address] PCP - General01/01/17documented as of this encounter
--- OUTSIDE RECORDS SUMMARY | 2025-04-14 12:26 | XMS_ITS | Encounter Summary ---
Author Organization [place] [facility] [employer] Address [id number] [address] [place] [address] Care Team Providers Care Rotor Casting Machine Operator Name Role Phone JenniferDru April MUNGUIA Primary Care Provider [phone]- [phone] Encounter Details DateTypeDepartmentCare Team (Latest Contact Info)Tfdaxwrgsna79/30/2025Travel Social History Tobacco UseTypesPacks/DayYears UsedDateSmoking Tobacco: NeverSmokeless Tobacco: NeverAlcohol UseStandard Drinks/WeekCommentsYes0 (1 standard drink = 0.6 oz pure alcohol)socialTHE [facility]GICAL [facility] UtilitiesAnswerDate RecordedIn the past 12 months has [...] care, and heating?Not hard at all02/17/2025PHQ-2AnswerDate RecordedTotal [id number] mountain hospital [place] of Occupational Health - Occupational Stress QuestionnaireAnswerDate [...] a household?No02/17/2025hildcareAnswerDate RecordedDo problems getting early childhood coordinator make it difficult for you to work [...] and direction in my life.Agree02/17/2025Estimated Date of KrzeqngwJjyeoiabWzh74/27/2026Based on last menstrual period of 10/30/2024Sex and Gender InformationValueDate RecordedSex Assigned at HdofxEixzvj12/22/2025 1:51 AM EDTLegal SexFemale 01/13/2015 11:58 AM EDTGender QvnolntbXbqcyl31/22/2025 1:51 AM EDTSexual OrientationNot on filedocumented as of this encounter Plan of Treatment DateTypeDepartmentCare Team (Latest Contact Info)Ntfkbjqhhbd51/07/2025 2:00 PM ESTAppointment [facility] [address] [place] [phone] 04/20/2025 10:30 AM ESTTelemedicine Maternal- Medicine at [facility] [address] [place] [phone] Rosy Arredondo PA-C [address] [address] 05/13/2025 8:45 AM ESTAppointment [facility] Imaging [address] [place] [phone] documented as of this encounter Visit Diagnoses Not on filedocumented in this encounter Additional Health Concerns AssessmentNoted TimePHQ-9 Depression Total Score: 8:31 AM ESTA Body Mass Index follow-up plan has been documented for the pmyjotw0706/12/2023 4:35 PM ESTdocumented as of this encounter Care Teams Team MemberRelationshipSpecialtyStart DateEnd Date Dru Rodriguez DO [address] [place] [address] PCP - General01/01/17documented as of this encounter
--- OUTSIDE RECORDS SUMMARY | 2025-04-14 12:26 | XMS_ITS | Encounter Summary ---
Author Organization [place] [facility] [employer] Address [id number] [address] [place] [address] Care Team Providers Care Polysomnography Tech Name Role Phone JenniferDru April MUNGUIA Primary Care Provider [phone]- [phone] Encounter Details DateTypeDepartmentCare Team (Latest Contact Info)Nblwewrajms24/03/2025Travel Social History Tobacco UseTypesPacks/DayYears UsedDateSmoking Tobacco: NeverSmokeless Tobacco: NeverAlcohol UseStandard Drinks/WeekCommentsYes0 (1 standard drink = 0.6 oz pure alcohol)socialAC[facility] UtilitiesAnswerDate RecordedIn the past 12 months has [...] care, and heating?Not hard at all02/17/2025PHQ-2AnswerDate RecordedTotal Ukhve86706/12/2023Finuintah basin medical center [place] of Occupational Health - Occupational Stress QuestionnaireAnswerDate [...] of a household?No02/17/2025hildcareAnswerDate RecordedDo problems getting 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 work [...] and direction in my life.Agree02/17/2025Estimated Date of FaktlgsmDmetetaqRuh95/27/2026Based on last menstrual period of 10/30/2024Sex and Gender InformationValueDate RecordedSex Assigned at GswlsZjirqr63/22/2025 1:51 AM EDTLegal SexFemale 01/13/2015 11:58 AM EDTGender AoxghnvzMcouhz31/22/2025 1:51 AM EDTSexual OrientationNot on filedocumented as of this encounter Plan of Treatment DateTypeDepartmentCare Team (Latest Contact Info)Nprdmdiufvl68/07/2025 2:00 PM ESTAppointment [facility] - [facility] [address] [place] [phone] 04/20/2025 10:30 AM ESTTelemedicine Maternal- Medicine at [facility] [address] [place] [phone] Rosy Arredondo PA-C [address] [address] 05/13/2025 8:45 AM ESTAppointment [facility] Imaging [address] [place] [phone] documented as of this encounter Visit Diagnoses Not on filedocumented in this encounter Additional Health Concerns AssessmentNoted TimePHQ-9 Depression Total Score: 8:31 AM ESTA Body Mass Index follow-up plan has been documented for the veougbz8806/12/2023 4:35 PM ESTdocumented as of this encounter Care Teams Team MemberRelationshipSpecialtyStart DateEnd Date Dru Rodriguez DO [address] [place] [address] PCP - General01/01/17documented as of this encounter
--- OUTSIDE RECORDS SUMMARY | 2025-04-14 12:26 | XMS_ITS | Clinical Summary ---
Author Organization [place] [facility] tem Address [id number] [address] [place] [address] Care Team Providers Care Hop Worker Name Role Phone Dru Rodriguez April DO Primary Care Provider [phone] Allergies Active AllergyReactionsCriticalityNoted YuhgAksnylcdRereiqcekom58/14/2016 Has since taken without reaction Medications * [...] with hyperglycemia, with long-term current use of ducwgyh4102/17/2025Type 1 diabetes mellitus during in second gxawwaixg76/11/2025DKA, type 1, not at goal 01/06/2018Diabetic ketoacidosis associated with type 1 diabetes mellitus 02/22/2017Acute renal wfcsjdeiycttv80/11/2017Mechanical breakdown of insulin pump02/18/2017Generalized anxiety /25/2017Panic disorder without pzundzrxirp35/25/2017DKA, type Mild intermittent thmzzq8805/23/2016 Estimated Date of KshiiruvPcqruhigFnu56/27/2026ased on last menstrual period of 10/30/2024 Resolved Problems ProblemNoted DateDiagnosed DateResolved DateCeliac disease in pediatric patient Encounters DateTypeDepartmentCare QpupUozspgalizs32/05/2025 8:00 AM ESTHospital Encounter [facility] - [facility] US Imaging [address] [place] [address] Encounter for other screening follow-up04/12/2025 10:00 AM EST Telemedicine Maternal- Medicine at [facility] [address] [place] [address] Poncho Jeffrey MD Type 1 diabetes mellitus during in second trimester (Primary Dx); Type 1 diabetes mellitus during in first cjiqmxuhv57/03/2025Travel 04/08/2025 1:00 PM EDTTelemedicine Maternal- Medicine at [facility] [address] [place] [address] Georgiana Esteban MD 22 weeks gestation of (Primary Dx); Type 1 diabetes mellitus complicating in second trimester, antepartum; Asthma complicating in second uopxhrrxb70/30/5559Swyngu79/29/2025 Telephone Maternal- Medicine at [facility] [address] [place] [address] Carolann Urbina, BRANDT 04/06/2025Telephone Maternal- Medicine at [facility] [address] [place] [address] Carolann Urbina, BRANDT 04/05/2025Orders Only Maternal- Medicine at [facility] [address] [place] [address] Clarita Mchugh CMA 03/29/2025 10:30 AM EDTTelemedicine Maternal- Medicine at [facility] [address] [place] [address] Rosy Arredondo PA-C Type 1 diabetes mellitus during in second trimester (Primary Dx) 03/29/20257484Oxiniv84/20/2025Orders Only Maternal- Medicine at [facility] [address] [place] [address] Lula Fernandez RN 03/29/2025Orders Only Maternal- Medicine at [facility] [address] [place] [address] Debby Garcia, BRANDT 03/24/2025Telephone Maternal- Medicine at [facility] [address] [place] [address] Maritza Milian 03/17/2025Telephone Maternal- Medicine at [facility] [address] [place] [address] Maritza Milian 03/16/2025 7:57 AM EDT - 03/16/2025 11:59 PM EDTHospital Encounter [facility] - Ultrasound [address] [place] [address] Type 1 diabetes mellitus during in first trimester Discharge Disposition: Home03/15/2025 3:30 PM EDTTelemedicine Maternal- Medicine at [facility] [address] [place] [address] Rosy Arredondo PA-C Type 1 diabetes mellitus during in second trimester (Primary Dx) 03/15/2025Telephone Maternal- Medicine at [facility] [address] [place] [address] Debby Garcia, BRANDT 03/15/20259501Fabdif74/06/2025Orders Only Maternal- Medicine at [facility] [address] [place] [address] Debby Garcia RN 03/09/2025Orders Only Maternal- Medicine at [facility] [address] [place] [address] Franci Matson MD 03/09/2025Orders Only Maternal- Medicine at [facility] [address] [place] [address] Yue Bullock RN 03/09/2025Remote Patient Monitoring Maternal- Medicine at [facility] [address] [place] [address] Franci Matson MD Pre-existing type 1 diabetes mellitus with hyperglycemia during in second trimester ([facility]) (Primary Dx)03/08/2025Orders Only Maternal- Medicine at [facility] [address] [place] [address] Clarita Mchugh, [facility] 03/03/2025 10:30 AM EDTTelemedicine Maternal- Medicine at [facility] [address] [place] [address] Carin Mathur APRN-FNP Uncontrolled type 1 diabetes mellitus with hyperglycemia, with long-term current use of insulin ([facility] (Primary Dx)03/03/2025Telephone Maternal- Medicine at [facility] [address] [facility] [place] [address] Lula Fernandez, BRANDT 03/03/20256890Pqecuv34/24/2025Orders Only Maternal- Medicine at [facility] [address] [place] [address] Lula Fernandez, BRANDT 02/24/2025Telephone [facility] - Women's Services [address] [place] [address] Radha Bruno, BRANDT Outgoing Call02/22/2025Orders Only Maternal- Medicine at [facility] [address] [place] [address] Rosy Arredondo PA-C 02/22/2025Orders Only Maternal- Medicine at [facility] [address] [place] [address] Clarita Mchugh, [facility] 02/19/2025Orders Only Maternal- Medicine at [facility] [address] [place] [address] Clarita Mchugh, [facility] 02/17/2025 6:11 PM EDT - 02/22/2025 3:30 PM EDTHospital Encounter [facility] - GEN 3 Antepartum [address] [place] [address] Annamarie Dave MD Uncontrolled type 1 diabetes mellitus with hyperglycemia, with long-term current use of insulin ([facility] Discharge Disposition: Home02/17/2025 2:30 PM EDTOffice Visit Maternal- Medicine at [facility] [address] [place] [address] Franci Matson MD Pre-existing type 1 diabetes mellitus with hyperglycemia during in second trimester ([facility] (Primary Dx); Uncontrolled type 1 diabetes mellitus with hyperglycemia, with long-term current use of insulin ([facility] 15 weeks gestation of ; History of diabetic mqqqdfpeyhol49/10/0373Moaruq67/10/2025Telephone [facility] [place] [facility] [address] [place] [address] Sharon Goins, [facility] 02/12/2025Telephone Maternal- Medicine at [facility] [address] [place] [address] Odilia Dumas RN 02/12/2025Orders Only Maternal- Medicine at [facility] [address] [place] [address] Odilia Dumas, RN 2025Telephone [facility] [place] [facility] [address] [place] [address] Lara Sams RN 2025Orders Only Maternal- Medicine at [facility] [address] [facility] [place] [address] Carin Mathur, WALLPAPERER-FNP 2025Orders Only Maternal- Medicine at [facility] [address] [facility] [place] [address] Odilia Dumas RN 02/03/2025Documentation Maternal- Medicine at [facility] [address] [place] [address] Yue Bullock, BRANDT 02/02/2025Telephone Maternal- Medicine at [place] [address] [facility] [place] [address] Yue Bullock, BRANDT 02/01/2025Orders Only Maternal- Medicine at [facility] [address] [place] [address] Bhumi Duval MD 02/01/2025Orders Only Maternal- Medicine at [facility] [address] [place] [address] Kimberly Romero RN Type 1 diabetes mellitus during in first trimester (Primary Dx) 02/01/20250385Uhsxci42/21/2025Telephone Maternal- Medicine at [facility] [address] [place] [facility] [place] [address] Maritza Milian 01/26/2025Telephone Maternal- Medicine at [facility] [address] [facility] [address] Maritza Milian 01/25/2025 3:30 PM EDTTelemedicine Maternal- Medicine at [place] [address] [place] [address] Rosy Arredondo PA-C Type 1 diabetes mellitus during in first trimester (Primary Dx) 01/25/20252206Bohivr62/11/2025 1:00 PM EDTOffice Visit Maternal- Medicine at [address] [address] Rosy Arredondo PA-C Type 1 diabetes mellitus during in first trimester (Primary Dx) 01/18/2025 11:30 AM EDTSupport Visit Maternal- Medicine at [address] [address] Pre-existing type 1 diabetes mellitus in in first jpfgeyyrd37/11/2025 10:30 AM EDTSupport Visit Maternal- Medicine at [address] [address] Katie Orozco LD Pre-existing type 1 diabetes mellitus in in first kqwmamhwk13/11/2025 Travelfrom Last 3 Months Immunizations ImmunizationAdministration DatesNext [...] (1 standard drink = 0.6 oz pure alcohol)[facility] UtilitiesAnswerDate RecordedIn the past 12 months [...] care, and heating?Not hard at all02/17/2025PHQ-2AnswerDate RecordedTotal Wftle613Finshriners [facility] [place] of Occupational Health - Occupational Stress QuestionnaireAnswerDate [...] a household?No02/17/2025hildcareAnswerDate RecordedDo problems getting child care worker make it difficult for you to [...] and direction in my life.Agree02/17/2025Estimated Date of SxuatlygAangibyaIfr90/27/2026ased on last menstrual period of 10/30/2024Sex and Gender InformationValueDate RecordedSex Assigned at IntqpMoikce77/22/2025 1:51 AM EDTLegal SexFemale 01/13/2015 11:58 AM EDTGender KujoydfeIkugtb36/22/2025 1:51 AM EDTSexual OrientationNot on file Last Filed Vital Signs Vital SignReadingTime TakenCommentsBlood Hehcqitr524/6109 8:23 AM EDT Jolue930802/22/2025 8:23 AM HRHBscxhxrsoho24.8 ??C (98.2 ??F)02/22/2025 8:23 AM EDTRespiratory Vkmb129602/22/2025 8:23 AM EDTOxygen Uibpzwlslc820%01/08/2025 3:26 PM EDTInhaled Oxygen Concentration--Tmapwq28.1 kg (143 lb 9.6 oz)02/17/2025 6:00 PM TEZRrppck956.3 cm (4' 9.99 )02/17/2025 6:00 PM EDTBody Mass Index30.02 02/17/2025 6:00 PM EDT Plan of Treatment DateTypeDepartmentCare Team (Latest Contact Info)Yvbvqzylctd54/07/2025 2:00 PM ESTAppointment [facility] - [facility]ovascular [address] [place] [address] 04/20/2025 10:30 AM ESTTelemedicine Maternal- Medicine at [facility] [address] [place] [address] Rosy Arredondo PA-C [address] [address] 05/13/2025 8:45 AM ESTAppointment [facility] US Imaging [address] [place] [address] Health MaintenanceDue DateLast DoneCommentsDiabetic Ophthalmology Exam2001 Diabetic Foot Exam2019Chlamydia Xijwlskcg432Adult BMI Follow Up Plan/4Depression Yexdmwbqj994COVID- 19 Vaccine ( season)/11/2021, 03/21/2021, 1RSV ( or age 60+ yrs) (1 - Risk 1-dose series)06/11/2025dult BMI Tctnmufmz98/03/2025Tobacco Rtpyzhspx56Pap Smear /02/2025, 2DTaP,Tdap and Td Vaccines (8 - Td or Tdap) , 03/02/2013, 03/18/2008, Additional history existsInfluenza WfeirlfRxltvaqan63/08/2025, 03/18/2024, 06/12/2023, Additional history exists Medical Devices ImplantedTypeAreaManufacturerDevice IdentifierShelf Expiration DateModel / Serial / LotNexplanonDescription: control implant in right upper arm Procedures Procedure NamePriorityDate/TimeAssociated DiagnosisCommentsUS [facility] OB FOLLOW-UP, 1 FCPPVIbptfzk45/05/2025 9:34 AM EST Encounter for other screening follow-up ALPHA VFIOTINIBZRIaozquc70/30/2025 10:01 AM EDT Encounter for supervision of normal , unspecified, second trimester B-TYPE NATRIURETIC DYXAQTZVtoydlo43/30/2025 10:01 AM EDT Type 1 diabetes mellitus during in second trimester EXTRA TUBES LAVENDER CAWActlnyz33/30/2025 9:56 AM EDT Encounter for supervision of normal , unspecified, second trimester Uncontrolled type 1 diabetes mellitus with hyperglycemia, with long-term current use of insulin ([facility] Type 1 diabetes mellitus during in second trimester EXTRA FFYJEAmmdiqm23/30/2025 9:56 AM EDT Encounter for supervision of normal , unspecified, second trimester Uncontrolled type 1 diabetes mellitus with hyperglycemia, with long-term current use of insulin ([facility] Type 1 diabetes mellitus during in second trimester HEMOGLOBIN V0VHkkegha44/30/2025 9:56 AM EDT Uncontrolled type 1 diabetes mellitus with hyperglycemia, with long-term current use of insulin ([facility] [facility] COMPREHENSIVE ANATOMIC NPFWJTRmhwism53/07/2025 9:52 AM EDT Type 1 diabetes mellitus during in first trimester BEDSIDE LRQPKBJEsnslkf91/15/2025 1:59 PM EDT BEDSIDE OXRJWTJSlxklsj90/15/2025 12:57 PM EDT BEDSIDE GBFPNTTBrudvrb33/15/2025 11:44 AM EDT BEDSIDE HUQWHPHVdbtqlv76/15/2025 11:19 AM EDT BEDSIDE MAIWOOQTaibnxz01/15/2025 10:59 AM EDT BEDSIDE YXZKICXOoxrmqy97/15/2025 9:11 AM EDT BEDSIDE BBILTKKZedbrdu96/15/2025 5:47 AM EDT BEDSIDE XQSIGTQHhhtfyf74/15/2025 3:08 AM EDT BEDSIDE SXQGLAIAztiujl94/15/2025 12:37 AM EDT BEDSIDE CAFFBZJPhrrusx81/15/2025 12:16 AM EDT BEDSIDE EPKITGACxmautz51/14/2025 9:46 PM EDT BEDSIDE NBIPSMKBdhgpcs46/14/2025 9:25 PM EDT BEDSIDE TTQAMQZRxlxxek08/14/2025 7:21 PM EDT BEDSIDE OLGTGQMPniqyxp10/14/2025 6:15 PM EDT BEDSIDE ACXFMTTYublizz17/14/2025 5:42 PM EDT BEDSIDE HUVAHKOInjaonx43/14/2025 5:24 PM EDT BEDSIDE MVFEIRLFrdxued01/14/2025 5:08 PM EDT BEDSIDE WTINNIWNqlxwsl50/14/2025 3:19 PM EDT BEDSIDE QTJVAXTItseepq72/14/2025 2:49 PM EDT BEDSIDE JYRGFLKZigunil93/14/2025 1:40 PM EDT BEDSIDE YTKSIJYJgtfelk98/14/2025 10:19 AM EDT BEDSIDE PMCQXHNUgqfynn37/14/2025 9:08 AM EDT BEDSIDE HRDONRHNqpzlox33/14/2025 6:15 AM EDT BEDSIDE BOBFCCBOlyelva68/14/2025 3:17 AM EDT BEDSIDE YZMSPDIBmdqgjr18/14/2025 12:03 AM EDT BEDSIDE OXBBMLWVhchfhc81/13/2025 9:10 PM EDT BEDSIDE PXQDWKVCtuonts33/13/2025 7:46 PM EDT BEDSIDE YSPFSRIMpiepco36/13/2025 7:27 PM EDT BEDSIDE IUGEUZUPwugssm13/13/2025 6:17 PM EDT BEDSIDE FONCHHMIodgvgn68/13/2025 5:11 PM EDT BEDSIDE GWQTRZXRreuave43/13/2025 2:22 PM EDT BEDSIDE CTDMILPHbowlcl37/13/2025 1:21 PM EDT BEDSIDE LBAMDMHUcucwfc69/13/2025 10:24 AM EDT BEDSIDE EEEWRQQBboxzkx03/13/2025 9:12 AM EDT BEDSIDE AOOBCTSEmsuzzq87/13/2025 8:22 AM EDT BEDSIDE WDHNCALXiwxexi54/13/2025 7:40 AM EDT BEDSIDE ILPLIMEPzfnwfi12/13/2025 6:01 AM EDT BEDSIDE OOBUPQKSnprhft06/13/2025 2:57 AM EDT BEDSIDE ZVODLGFJxmcmzv33/12/2025 11:57 PM EDT BEDSIDE HKDBZNXEqugiur84/12/2025 9:25 PM EDT BEDSIDE XKULQIDXrhlcay41/12/2025 8:58 PM EDT BEDSIDE BESSWTTVsenhdw91/12/2025 6:52 PM EDT BEDSIDE NOPAYJEIilwtzc40/12/2025 5:51 PM EDT BEDSIDE NCHQEPNHjmlndz23/12/2025 2:42 PM EDT BEDSIDE LSNMOLNKdnmkfb31/12/2025 1:38 PM EDT BEDSIDE EWTYXGELzocxvj30/12/2025 1:16 PM EDT BEDSIDE RGEMTSQUoicwnp70/12/2025 12:55 PM EDT BEDSIDE XGFLPOQGomdmvv27/12/2025 12:34 PM EDT BEDSIDE CYVRAXPFzxmfgk58/12/2025 9:55 AM EDT BEDSIDE YRYFCSJPexbnyv01/12/2025 8:53 AM EDT PROTEIN, URINE, 24 TUOFAyjcgie58/12/2025 6:57 AM EDT BEDSIDE RQVYGFMNovhmdj58/12/2025 5:27 AM EDT BEDSIDE PFCAZLHSabrdtt15/12/2025 4:51 AM EDT BEDSIDE HHDNWRCCzjdnsy12/12/2025 3:14 AM EDT BEDSIDE ARFUHCNYnuscls35/12/2025 12:01 AM EDT BEDSIDE COPXGUDXykgdtz26/11/2025 9:04 PM EDT BEDSIDE FUNSLONCjmjtfp57/11/2025 7:02 PM EDT BEDSIDE MMQYKJNKrfnqgx55/11/2025 5:53 PM EDT BEDSIDE GFAYGNQOisqykf87/11/2025 2:42 PM EDT ECG 12-CZLYKjrmpqz04/11/2025 10:54 AM EDT BEDSIDE RTXOGVUIofkdzn17/11/2025 10:37 AM EDT BEDSIDE BQLAUMNFyjbaeo75/11/2025 10:11 AM EDT BEDSIDE LEAMGEFDppatif17/11/2025 9:34 AM EDT EXTRA TUBES LAVENDER TJCXtntncu24/11/2025 8:20 AM EDT EXTRA BBWVLJgjcvmi28/11/2025 8:20 AM EDT URIC ACIDAdd-On02/18/2025 8:20 AM EDT LDHAdd-On02/18/2025 8:20 AM EDT BEDSIDE WZHBSFZWbbgmkt54/11/2025 6:03 AM EDT BEDSIDE RJBGIGOFzwyauz93/11/2025 2:47 AM EDT BEDSIDE VNUQHNJLxxgdtw04/11/2025 2:26 AM EDT BEDSIDE MFPPGZIZtmudyn94/11/2025 2:06 AM EDT BEDSIDE WEXALBRZeqjenk13/10/2025 9:45 PM EDT CPLARIDGXZKKUH29/10/2025 7:25 PM EDT URINE MPTOPEMRYGL95/10/2025 7:25 PM EDT EXTRA TUBES SST JIGYhfzzfr77/10/2025 7:17 PM EDT EXTRA JZKIVIkcckix34/10/2025 7:17 PM EDT CBC WITH AUTO UPMZHJZYJCWEFJCS64/10/2025 7:17 PM EDT ACETONE,(BETAHYDROXYBUTYRATE, KETONE) QUANTITATIVE CSZOIQyhgfgq48/10/2025 7:16 PM EDT COMPREHENSIVE METABOLIC DDKJHLWCP84/10/2025 7:16 PM EDT BEDSIDE YTMGHKMMwkgcvk95/10/2025 7:15 PM EDT PAP FUBLMQvjluhn90/24/2022 10:35 AM EDT Cervical smear, as part of routine gynecological examination CHLAMYDIA/GC BY PCR OMAIRA MRKNVwqbxde54/11/2022 6:33 PM EDT Menorrhagia with irregular cycle Metrorrhagia DUB (dysfunctional uterine bleeding) from Last 3 Months or Most Recently Relevant to Health Maintenance Results * US MFM OB FOLLOW-UP, 1 FETUS (04/14/2025 9:34 AM EST) Only the most recent of2 resultswithin the time period is included. Anatomical RegionLateralityModalityOB-GYNUltrasoundSpecimen (Source)Anatomical Location / LateralityCollection Method / VolumeCollection TimeReceived Time 04/14/2025 8:12 AM EST Narrative 04/14/2025 10:18 AM EST NAME: ??DARREN ART : 2000 SEX: F Accession Number: [id number] ORDERING PHYSICIAN: FRANCI MATSON REFERRING PHYSICIAN: BRYANT PULLIAM Coding Procedures ? 54849: Ultrasound, uterus, real time with image documentation, follow up,transabdominal ? approach per fetus ? 34547: Echocardiography, , cardiovascular system, real time with [...] (oz) ? 6 oz EFW by: ?Hadlock (KTJ-AF-RE-FL) Extended Tibia ??36.2 mm 23w 4d 46% Randolph User Experience Developer ? 6.2 mm Inner IOD ?13.8 mm [...] view. RVOT view. LVOT view. 3-vessel view. 8-yundxo-hmjyyiv view. Great vessels. ? Diaphragm. Abdomen: Stomach. [...] ?normal RVOT view ?normal 3-vessel view ??normal 2-ixflpw-cioiawg view ??normal Aortic arch view ? normal [...] MVP measures 5.9 cm. Recommendations Please see [facility] recommendations from prior clinical and/or ultrasound report documentation. The patient is scheduled in four weeks for follow up growth ultrasound. Subsequent follow up or other follow up as clinically determined by primary OB provider unless otherwise specified by MFM. Results forwarded to ordering provider so they can follow up with the patient as necessary. Procedure Note Bhumi Duval MD - 04/14/2025 NAME: DARREN ART : 2000 SEX: F Accession Number: [id number] ORDERING PHYSICIAN: FRANCI MATSON REFERRING PHYSICIAN: BRYANT PULLIAM Coding Procedures 27218: Ultrasound, uterus, real time with image documentation, follow up, transabdominal approach per fetus 43875: Echocardiography, , cardiovascular system, real timewith image [...] EFW (oz) 6 oz EFW by: Hadlock (QHT-DH-PQ-FL) Extended Tibia 36.2 mm 23w 4d 46% Randolph User Experience Developer 6.2 mm Inner IOD 13.8 mm Outer [...] view. RVOT view. LVOT view. 3-vessel view. 1-movkgw-hgclrmj view. Great vessels. Diaphragm. Abdomen: Stomach. Kidneys. [...] normal RVOT view normal 3-vessel view normal 5-cpyhle-edmbbcf view normal Aortic arch view normal Ductal [...] MVP measures 5.9 cm. Recommendations Please see MFM recommendations from prior clinical and/or ultrasoundreport documentation. The patient is scheduled in four weeks for follow up growth ultrasound. Subsequent follow up or other follow up as clinically determined byprimary OB provider unless otherwise specified by MFM. Results forwarded to ordering provider so they can follow up with thepatient as necessary. Authorizing ProviderResult TypeResult StatusFranci AMES US ORDERABLES Final Result * (ABNORMAL) Alpha fetoprotein (04/08/2025 10:01 AM EDT)ComponentValueRef Range Test MethodAnalysis TimePerformed AtPathologist SignatureALPHA PNOXBGBNXAK80.3 (H)<=9.9 ng/mL04/08/2025 1:25 PM [facility] Specimen (Source)Anatomical Location / LateralityCollection Method / Volume Collection TimeReceived TimeBloodVenous blood / UnknownVenipuncture / Unknown 04/08/2025 10:01 AM EDT1 10:01 AM EDT Narrative Authorizing ProviderResult TypeResult StatusAmy Travis Maria G PAL BLOOD ORDERABLES Final ResultPerforming OrganizationAddressCity/State/ZIP CodePhone Number [facility] [address] [place] [address], [place] [phone] * B-type natriuretic peptide (04/08/2025 10:01 AM EDT)ComponentValueRef Range Test MethodAnalysis TimePerformed AtPathologist ZnfqqpvvcMDZ11<=100 pg/mL 04/08/2025 11:[address] [facility]ITALpecimen (Source) Anatomical Location / LateralityCollection Method / VolumeCollection Time Received TimeBloodVenous blood / UnknownVenipuncture / Wckmoet6304/08/2025 10:01 AM EDT1 10:01 AM EDT Narrative Authorizing ProviderResult TypeResult StatusColleen E Fidenciooy PA-CLAB BLOOD ORDERABLESFinal ResultPerforming OrganizationAddressCity/State/ZIP CodePhone Number [facility] [address] [place] [address], * Sherly Top (04/08/2025 9:56 AM EDT) Only the most recent of2 resultswithin the time period is included. ComponentValueRef RangeTest MethodAnalysis TimePerformed AtPathologist Signature Extra TubeAuto Tpnimppz02/30/2025 11:01 AM EDTPROMEDICA [facility]PITALpecimen (Source)Anatomical Location / LateralityCollection Method / VolumeCollection TimeReceived TimeBloodVenous blood / Znvbabf8304/08/2025 9:56 AM EDT1 10:14 AM EDT Narrative Authorizing ProviderResult TypeResult StatusColleen E Arnulfo PA-CLAB BLOOD ORDERABLESFinal ResultPerforming OrganizationAddressCity/State/ZIP CodePhone Number [facility] [address] [facility] [place] [address], * Hemoglobin A1c (04/08/2025 9:56 AM EDT)ComponentValueRef RangeTest Method Analysis TimePerformed AtPathologist SignatureHEMOGLOBIN A1C5.14.4 - 5.6 % 04/08/2025 1:25 PM [facility] LAB[facility]ATORYComment: ?ADA Guidelines ?Result ?HgbA1c ? Normal : ? less than 5.7 % ? Prediabetes : ?5.7 % ??to 6.4 % Diabetes : > 6.4 % ?Use with caution in patients with abnormal hemoglobin variants as ??the half-life of red blood cells and in vivo glycation rates are ??affected. EST. AVERAGE ZGMAHPS596qa/dL04/08/2025 1:25 PM [facility] LAB[facility]ATORYSpecimen (Source)Anatomical Location / LateralityCollection Method / VolumeCollection TimeReceived TimeBloodVenous blood / Ngquyvr3904/08/2025 9:56 AM EDT1 10:14 AM EDT Narrative Authorizing ProviderResult TypeResult StatusCarin Mathur WALLPAPERER-CNPLAB BLOOD ORDERABLESFinal ResultPerforming OrganizationAddressCity/State/ZIP CodePhone Number [facility] [address] [place] [address], [place] [phone] * Bedside Glucose *Place/Obtain serum glucose if >500 per glucometer. (02/22/2025 1:59 PM EDT) Only the most recent of67 resultswithin the time period is included. ComponentValueRef RangeTest MethodAnalysis TimePerformed AtPathologist Signature Bedside Glucose (POC)9265 - 99 mg/dL02/22/2025 2:04 PM [facility] LABORATORYSpecimen (Source)Anatomical Location / LateralityCollection Method / VolumeCollection TimeReceived Timearterial/giebtrfoq70/15/2025 1:59 PM EDT 02/22/2025 2:04 PM EDT Narrative Authorizing ProviderResult TypeResult StatusAnnamarie Dave MDPOINT OF CARE TEST ORDERABLESFinal ResultPerforming OrganizationAddressCity/State/ZIP CodePhone Number [facility] [address] [place] [address], [place] * (ABNORMAL) Protein, urine, 24 hour (02/19/2025 6:57 AM EDT)ComponentValueRef RangeTest MethodAnalysis TimePerformed AtPathologist SignatureURINE TOTAL ONELSTP216(H)0 - 150 mg/24h02/19/2025 8:29 AM [facility] TOT VOLUME - 24H URINE2,5481402/19/2025 8:29 AM [facility] LABORATORYSpecimen (Source)Anatomical Location / LateralityCollection Method / VolumeCollection TimeReceived SetmFnaty85/12/2025 6:57 AM EDT 02/19/2025 7:44 AM EDT Narrative Authorizing ProviderResult TypeResult StatusLaura Deshpande DOURINE ORDERABLES Final ResultPerforming OrganizationAddressCity/State/ZIP CodePhone Number [facility] [address] [place] [address], * ECG 12 lead (02/18/2025 10:54 AM EDT)Specimen (Source)Anatomical Location / LateralityCollection Method / VolumeCollection TimeReceived Time02/18/2025 10:54 AM EDT Narrative TRACEMASTERVUE - 02/18/2025 11:28 AM EDT Authorizing ProviderResult TypeResult StatusLaura Deshpande DOECG ORDERABLES Final ResultPerforming OrganizationAddressCity/State/ZIP CodePhone Number [facility] * L[facility] (02/18/2025 8:20 AM EDT)ComponentValueRef RangeTest MethodAnalysis Time Performed AtPathologist HwfdzzuxcXCX343881 - 235 U/L02/18/2025 9:[address] [facility] LABORATORYSpecimen (Source)Anatomical Location / LateralityCollection Method / VolumeCollection TimeReceived TimeBloodVenous blood / UnknownVenipuncture / Ltlnafk8102/18/2025 8:20 AM EDT02/18/2025 8:31 AM EDT Narrative Authorizing ProviderResult TypeResult StatusLaura Deshpande DOLAB BLOOD ORDERABLESFinal ResultPerforming OrganizationAddressCity/State/ZIP CodePhone Number [facility] [address] [place] [address], * Uric acid (02/18/2025 8:20 AM EDT)ComponentValueRef RangeTest MethodAnalysis TimePerformed AtPathologist SignatureURIC ACID3.12.6 - 7.2 mg/dL02/18/2025 9:[address] [facility]YSpecimen (Source)Anatomical Location / LateralityCollection Method / VolumeCollection TimeReceived Time BloodVenous blood / UnknownVenipuncture / Yiljgfx8702/18/2025 8:20 AM EDT 02/18/2025 8:31 AM EDT Narrative Authorizing ProviderResult TypeResult StatusLaura Deshpande DOLAB BLOOD ORDERABLESFinal ResultPerforming OrganizationAddressCity/State/ZIP CodePhone Number [facility] [address] [place] [id number], * (ABNORMAL) Urinalysis (02/17/2025 7:25 PM EDT)ComponentValueRef RangeTest MethodAnalysis TimePerformed AtPathologist SignatureCOLORYellowYellow 02/17/2025 8:09 PM [facility]ORATORYTURBIDITYHazy(A)Clear 02/17/2025 8:09 PM [facility] LABORATORYSPECIFIC GRAVITY1.025 1.003 - 1.8927802/17/2025 8:09 PM [facility] LABORATORYNITRITE ZpchkjlyCzxbixew81/10/2025 8:09 PM [facility] PH,URINE6.05.0 - 8. 8:09 PM [facility] LEUKOCYTE ESTERASELarge(A)Mlexebfv98/10/2025 8:09 PM [facility] TMBFTTOCQMXBHHTGWMyksofxuUkubellb53/10/2025 8:09 PM [facility] LABORATORYKETONES (URINE)60 mg/dL(A)Piyxrrer38/10/2025 8:[address] LABORATORYUROBILINOGEN<1.1 eu/dL<1.1 eu/dL02/17/2025 8:09 PM [facility] LABORATORYBILIRUBIN (URINE)Negative Sbrptvuy31/10/2025 8:09 PM [facility] LABORATORYBLOOD/HGB SvrgeckkHpczgxnw14/10/2025 8:09 PM [facility] MUCOUSPresent(A)None02/17/2025 8:09 PM [facility] R.B.CELLS00 - 8:09 PM [facility] SQUAMOUS IJELNQJBDI18(H)0 - 8:09 PM [facility] LABORATORYW.B.CELLS57(H)0 - 8:09 PM [facility] LABORATORYGLUCOSE (URINE)NwmnjtqbRogqxcsd89/10/2025 8:09 [facility] LAB[facility]ATORYSpecimen (Source)Anatomical Location / LateralityCollection Method / VolumeCollection TimeReceived TimeUrineUrine specimen collection, clean catch / Mwhkfqq5902/17/2025 7:25 PM EDT02/17/2025 7:54 PM EDT Narrative Authorizing ProviderResult TypeResult StatusCriselda Zaidi MDURINE ORDERABLESFinal ResultPerforming OrganizationAddressCity/State/ZIP CodePhone Number [facility] [address] [place] [address], * Urine Culture Urine, Clean Catch Midstream (02/17/2025 7:25 PM EDT)Component ValueRef RangeTest MethodAnalysis TimePerformed AtPathologist SignatureCULTURE LCOYOOT12-98,000 ORGANISMS/mL NORMAL UROGENITAL FLORA02/18/2025 4:[address] [facility] LABORATORYSpecimen (Source)Anatomical Location / LateralityCollection Method / VolumeCollection TimeReceived TimeUrineUrine specimen collection, clean catch / Rjpfmdh1602/17/2025 7:25 PM EDT02/17/2025 7:[address] [facility] - 02/18/2025 4:53 PM EDT Urine received without preservative - delays in transport may affect results. Interpret with caution and clinical correlation is recommended. Authorizing ProviderResult TypeResult StatusCriselda Zaidi MDMICROBIOLOGY - GENERAL ORDERABLESFinal ResultPerforming OrganizationAddressCity/State/ZIP CodePhone Number [facility] [address] [place] [address], * SST TOP (02/17/2025 7:17 PM EDT)ComponentValueRef RangeTest MethodAnalysis TimePerformed AtPathologist SignatureExtra TubeAuto Qasqmkfl45/10/2025 9:01 PM [facility] LABORATORYSpecimen (Source)Anatomical Location / LateralityCollection Method / VolumeCollection TimeReceived TimeBloodVenous blood / Ldrpalx3802/17/2025 7:17 PM EDT02/17/2025 7:28 PM EDT Narrative Authorizing ProviderResult TypeResult StatusAnnamarie PAIGE BLOOD ORDERABLES Final ResultPerforming OrganizationAddressCity/State/ZIP CodePhone Number [facility] [address] [place] [id number], * (ABNORMAL) CBC auto differential (02/17/2025 7:17 PM EDT)ComponentValueRef RangeTest MethodAnalysis TimePerformed AtPathologist RbptpbzghAJM59.0(H)4 - 11 x10E9/L02/17/2025 7:37 PM [facility] LABORATORYRBC Count4.30 3.8 - 5.2 X10E12/L02/17/2025 7:37 PM [facility] Lbjxamliqp29.811.7 - 15.5 g/dL02/17/2025 7:37 PM [facility] GNGZOYYHPGVqckaftets80.535 - 47 %02/17/2025 7:37 PM [facility] LSNDJGEBUZAKK6765 - 100 fL02/17/2025 7:37 PM [facility] TYMDEQMFAHYEL87.727 - 34 pg02/17/2025 7:37 PM [facility] MAQBHMJWZUYOJP25.032 - 36 g/dL02/17/2025 7:37 PM [facility] HREZPRYTFRDKA20.411.5 - 15 %02/17/2025 7:37 PM [facility] LABORATORYPlatelet Wkovf977793 - 450 X10E9/L02/17/2025 7:[address] [facility] LABORATORYMPV8.37 - 12 fL02/17/2025 7:37 PM [facility] LABORATORYNeutrophils %74.7%02/17/2025 7:37 PM [facility] LABORATORYLymphocytes %19.9%02/17/2025 7:37 PM [facility] LABORATORYMonocytes %4.6%02/17/2025 7:37 PM [facility] LABORATORYEosinophils %0.6%02/17/2025 7:37 PM [facility] LABORATORYBasophils %0.2%02/17/2025 7:37 PM [facility] LABORATORYNeutrophils Absolute (A)10.5(H)1.5 - 6.6 10*3/uL 02/17/2025 7:37 PM [facility] LABORATORYLymphocytes Absolute 2.81.0 - 3.5 10*3/uL02/17/2025 7:37 PM [facility] Monocytes Absolute0.60.0 - 0.9 10*3/uL02/17/2025 7:37 PM [facility] LABORATORYEosinophils Absolute0.10.0 - 0.4 10*3/uL02/17/2025 7:37 PM [facility] LABORATORYBasophils Absolute0.00.0 - 0.2 10*3/uL 02/17/2025 7:37 PM [facility] LABORATORYDifferential Type AUTOMATED NXJHQQQTIDXA84/10/2025 7:37 PM [facility] LABORATORYSpecimen (Source)Anatomical Location / LateralityCollection Method / VolumeCollection TimeReceived TimeBloodVenous blood / UnknownVenipuncture / Vdjdhnl3602/17/2025 7:17 PM EDT02/17/2025 7:27 PM EDT Narrative Authorizing ProviderResult TypeResult StatusJessnatalee Zaidi [facility] BLOOD ORDERABLESFinal ResultPerforming OrganizationAddressCity/State/ZIP CodePhone Number [facility] [address] [place] [address], * Acetone, (BetaHydroxybutyrate, Ketone) quantitative, serum (02/17/2025 7:16 PM EDT)ComponentValueRef RangeTest MethodAnalysis TimePerformed AtPathologist SignatureBETAHYDROXYBUTYRATE0.160.02 - 0.27 mmol/L02/17/2025 8:05 PM [facility] LABORATORYSpecimen (Source)Anatomical Location / Laterality Collection Method / VolumeCollection TimeReceived TimeBloodVenous blood / UnknownVenipuncture / Vknokcd9602/17/2025 7:16 PM EDT02/17/2025 7:27 PM EDT Narrative Authorizing ProviderResult TypeResult StatusJessnatalee Terence PAIGE BLOOD ORDERABLESFinal ResultPerforming OrganizationAddressCity/State/ZIP CodePhone Number [facility] [address] [place] [address], * (ABNORMAL) Comprehensive metabolic panel (02/17/2025 7:16 PM EDT)Component ValueRef RangeTest MethodAnalysis TimePerformed AtPathologist SignatureSODIUM 398886 - 146 mmol/L02/17/2025 8:05 PM [facility] POTASSIUM3.53.5 - 5.0 mmol/L02/17/2025 8:05 PM [facility] DNWSFSCIGCKQXNKDTS31991 - 109 mmol/L02/17/2025 8:05 PM [facility] LABORATORYCARBON HSRTRVT9619 - 32 mmol/L02/17/2025 8:05 PM [facility] LABORATORYANION GAP85 - 15 mmol/L02/17/2025 8:[address] LABORATORYBLOOD UREA QEHRBKJT959 - 23 mg/dL02/17/2025 8:05 PM [facility] LABORATORYCREATININE0.630.40 - 1.00 mg/dL 02/17/2025 8:05 PM [facility] LABORATORYComment:METHOD TRACEABLE TO IDMS IMROMDWVBWIHEAB922(H)65 - 99 mg/dL02/17/2025 8:[address] LABORATORYCALCIUM8.58.5 - 10.5 mg/dL02/17/2025 8:05 PM [facility] LABORATORYTOTAL PROTEIN7.16.0 - 8.0 g/dL 02/17/2025 8:05 PM [facility] LABORATORYALBUMIN3.83.2 - 5.3 g/dL02/17/2025 8:05 PM [facility] LABORATORYALKALINE BDONSAXUFYS3869 - 130 U/L02/17/2025 8:05 PM [facility] WEQTUPVTJYVOM73<=41 U/L02/17/2025 8:05 PM [facility] AJAKIHOPEZIBK20<=31 U/L02/17/2025 8:05 PM [facility] LABORATORYBILIRUBIN,TOTAL0.2(L)0.3 - 1.2 mg/dL02/17/2025 8:05 PM [facility] LABORATORYEGFR Non-Race Dependent>90>=60 ml/min/1.73sq.m 02/17/2025 8:05 PM [facility] LABORATORYComment: Reported eGFR is based on the CKD-EPI 2020 equation that does not use a race coefficient. Specimen (Source)Anatomical Location / LateralityCollection Method / Volume Collection TimeReceived TimeBloodVenous blood / UnknownVenipuncture / Unknown 02/17/2025 7:16 PM EDT02/17/2025 7:27 PM EDT Narrative Authorizing ProviderResult TypeResult StatusJessnatalee PAIGE BLOOD ORDERABLESFinal ResultPerforming OrganizationAddressCity/State/ZIP CodePhone Number [facility] [address] [place] [id number], * Pap Smear (04/02/2022 10:35 AM EDT)Specimen (Source)Anatomical Location / LateralityCollection Method / VolumeCollection TimeReceived Time04/02/2022 10:35 AM EDT1 10:37 AM EDT Narrative [facility] - 04/12/2022 12:17 PM EDT [facility] ? [address] ? [place] [address] ? Gynecologic Cytology Consultation ? Patient Name:KAELYN BANKS:2000 (Age: 22)Gender:FTaken:2Reported:2Physician(s):PHILLIP Pink ([phone])Copy To: Rec. #:[id number]: #[id number] Final Cytologic Interpretation ThinPrep Pap Test (Cervical): Satisfactory for evaluation. A transformation zone component is present. NEGATIVE FOR INTRAEPITHELIAL LESION OR MALIGNANCY. ?? j/04/12/2022 Interpretation performed at [facility], [address] [place] [id number], License number: [id number]. Electronically Signed Out By ?JORGE Olson(ASCP) Date of Last Menstrual Period: ? 02/28/22 Other Clinical Conditions: Z01.419 Storage Wharfage Clerk exam wo/abn findings Source of Specimen ??ThinPrep Pap Test (Cervical) ? Thin Prep Pap (ONLINE MARKETING STRATEGIST) Fee Code(s): ?? G0145 Authorizing ProviderResult TypeResult StatusCayla Olivas WALLPAPERER-FNP PATHOLOGY/CYTOLOGY ORDERABLESFinal ResultPerforming OrganizationAddress City/State/ZIP CodePhone Number [facility] * Chlamydia/GC by PCR Omaira Swab (03/20/2022 6:33 PM EDT)ComponentValueRef Range Test MethodAnalysis TimePerformed AtPathologist SignatureSpecimen sourceCERVIX 03/20/2022 9:54 PM [facility] LABComment:Corrected on 03/20 AT 2154: Previously reported as SWABChlamydia DNA PCRNegativeNegative^Negative 03/21/2022 12:54 PM [facility] LABComment: ? Chlamydia trachomatis not detected by nucleic acid amplification. This does not exclude the possibility of infection because results are dependent on adequate specimen collection. ? Gonorrhea DNA PCRNegativeNegative^Cpcvuwys76/12/2022 12:54 PM [facility] LABComment: ? Neisseria gonorrhoeae not detected by nucleic acid amplification. This does not exclude the possibility of infection because results are dependent on adequate specimen collection. ? Specimen (Source)Anatomical Location / LateralityCollection Method / Volume Collection TimeReceived EqvbBKOO28/11/2022 6:33 PM EDT1 9:50 PM EDT Narrative Authorizing ProviderResult TypeResult StatusComelissa Seaman MDMICROBIOLOGY - GENERAL ORDERABLESEdited Result - FinalPerforming OrganizationAddress City/State/ZIP CodePhone Number [facility] [address] [place] [address] from Last 3 Months or Most Recently Relevant to Health Maintenance Insurance Advance Directives * Full Code (Latest Code Status on File) Date ActivatedDate InactivatedComments02/17/2025 6:35 PM02/22/2025 6:48 PM * Full Code Date ActivatedDate HdzmvxmtlumUfibdtcj92/27/2021 4:55 PM06/08/2021 4:33 PM * Full Code Date ActivatedDate InactivatedComments01/07/2018 6:44 AM01/07/2018 2:17 PM * Full Code Date ActivatedDate InactivatedComments10/23/2016 11:27 AM10/24/2016 12:42 PM * Full Code Date ActivatedDate InactivatedComments08/01/2016 12:52 AM08/01/2016 4:47 PM Care Teams Team MemberRelationshipSpecialtyStart DateEnd Date Dru Rodriguez DO [address] [place] [address] [facility]01/01/17
--- OUTSIDE RECORDS SUMMARY | 2025-04-14 12:26 | XMS_ITS ---
Author Organization [facility] Address [address] [place] [address] Care Team Providers Care Pastry Assistant Name Role Phone Dru Rodriguez DO Primary Care Provider [phone] Dru Rodriguez DO Unavailable [phone] Emergency Department Transitional Care Management (TCM) Status:Closed (Closed) Start date:04/06/2025 Enrollment date:04/08/2025 Enrollment reason:Identified using hospital discharge data End date:04/08/2025 Close reason:Assistance not needed Overview Discharged from [facility] ER on 04/06. Please contact within 2 days of discharge for ERTOC and schedule a follow-up appointment if needed. <April 08, 2025, 11:00 - Aline Dudley RN> er monty done, assistance not needed Continued Care and Services Coordination
--- OUTSIDE RECORDS SUMMARY | 2025-04-14 12:26 | XMS_ITS | Clinical Summary ---
Author Organization [facility] Address [address] [place] [address] Care Team Providers Care Boat Outfitter Name Role Phone Dru Rodriguez DO Primary Care Provider [phone] Dru Rodriguez DO Unavailable [phone] Allergies Active AllergyReactionsCriticalityNoted DateCommentsAmoxicillinAnaphylaxisHigh 05/23/2016 Mouth irritation Medications MedicationSigDispense QuantityRefillsLast FilledStart DateEnd DateStatus Continuous Blood Gluc Transmit (Dexcom G6 transmitter) [facility] Indications:Type 1 diabetes mellitus without complication (HCC)Inject 1 each under the skin every 3 (three) months. Use as instructed 1 each 3Active insulin glargine (Lantus SoloStar) 100 UNIT/ML pen Indications:Type 1 diabetes mellitus without complication (HCC)inject 22 units subcutaneously once daily 3 mL 4Active Insulin Disposable Pump (Omnipod 5 JytU9Z9 Pods Gen 5) misc Indications:Type 1 diabetes mellitus without complication (HCC)Inject 1 each under the skin every 3 (three) days CHANGE POD EVERY 3 DAYS DIRECTED 30 each 5Active HumaLOG 100 UNIT/ML solution Indications:Type 1 diabetes mellitus without complication (HCC)USE PER INSULIN PUMP INSTRUCTION MAX OF 80 UNITS DAILY 30 mL 5Active Vit w/Hg-Njinbtggk-GZ (PNV PO) Take by mouthActive Acetone, Urine, Test (Ketone Test) strip check urine FOR ketones with blood glucose greater THAN 250 mg/dLActive aspirin 81 MG EC tablet Take 81 mg by mouth in the morning.5Active cholecalciferol (Vitamin D-3) 1.25 MG (92946 UT) capsule every week5Active Continuous Glucose Sensor (Dexcom G7 Sensor) misc USE WITH OMNIPOD 5 TO MANAGE BLOOD SUGARS AND CHANGE EVERY 10 DAYS01/21/2025 Active doxylamine (Unisom) 25 MG tablet Take 25 mg by mouth 4 (four) times a day as wcuojc5001/08/2025tive Baqsimi One Pack 3 MG/DOSE nasal powder Use to treat unresponsive wqbsnxdklaei94/11/2025tive OneTouch Ultra Test test strip USE 1 STRIP TO CHECK GLUCOSE 4 TIMES DAILY10/14/2024tive ondansetron ODT (Zofran-ODT) 4 MG disintegrating tablet DISSOLVE 1 TABLET UNDER THE TONGUE EVERY 8 HOURS NEEDED FOR NAUSEA for up to 10 doses01/08/2025tive promethazine (Phenergan) 25 MG tablet Take 25 mg by mouth every 6 (six) hours if eomqfr7401/08/2025tive pyridoxine (Vitamin B-6) 100 MG tablet Take 100 mg by mouth in the morning.Active psyllium (Metamucil) 400 MG capsule DailyDiscontinued fluconazole (Diflucan) 150 MG tablet Indications:Yeast infectionTake 1 tablet (150 mg) by mouth 1 (one) time for 1 dose This is a 1 time dose, take single tablet by mouth. 1 tablet Expired Active Problems ProblemNoted DateDiagnosed DateHypoglycemia associated with byxowqqp86/30/2025 Mixed obsessional thoughts and acts4PTSD (post-traumatic stress disorder)09/06/2023Type 1 diabetes mellitus without owkkhxjlvdknf39/28/2023 Assessment & Plan (03/11/2024 7:46 PM EDT): [...] with hypoglycemia and without coma02/04/2023ulging lumbar disc11/08/2022hronic urajqgl9511/08/2022Lumbago with sciatica, left side 11/08/20229047Pynhdvrd43/01/2023iliary xipnkjivic52/01/2023eneralized anxiety jqljizic29/25/2017Panic disorder without ectycamwuog99/25/2017Celiac disease in pediatric tyrewrq9505/23/2016Mild intermittent srloug0705/23/2016Diabetes type 1, jhgzkonuje65/18/2011Estimated Date of SzvywmypGjfgferjNlp92/27/2026ased on last menstrual period of 10/30/2024 Resolved Problems ProblemNoted DateDiagnosed DateResolved DateChronic tucyfunckouza28/22/2023 08/05/2023lood hcvevdo18Hypoglycemia due to type 1 diabetes adfydgdb33Other chronic painRight upper quadrant painiabetic ketoacidosis associated with type 1 diabetes ksfjdboo02cute renal rugvsoioyzoxs22/11/2017 08/05/2023Mechanical breakdown of insulin pumpType 1 diabetes mellitus with ketoacidosis without coma Encounters DateTypeDepartmentCare BbwzVcrcuoxidjs00/05/2025bstract [facility] [address] [place] [address] Kolton Cao DO 04/08/2025 1:50 PM EDTRoutine [facility] [address] [phone] Katharine Cummins PA Second trimester ([facility]); 22 weeks gestation of ([facility]); Yeast qjeyieegy08/30/2025Patient Outreach [facility] [address] [place] [address] Aline Dudley, BRANDT 03/30/2025Orders Only [facility] [address] [place] [address] Kristopher Calvo, OD 03/25/2025 8:45 AM EDTOffice Visit [facility] [address] [place] [address] Dru Rodriguez, Routine general medical examination at a health care facility (Primary Dx); Generalized anxiety disorder; Celiac disease in pediatric patient ([facility]); Mild intermittent asthma, unspecified whether complicated ([facility])03/25/2025Orders Only [facility] [address] [place] [address] Dru Rodriguez DO 03/25/2025Telephone [facility] [address] [place] [address] Lesa Boss LPN 03/25/2025amboo flowsheet [facility] [address] [place] [address] Dru Rodriguez, DO 03/25/20257341Rruxsy70/14/2025 8:50 AM EDTRoutine [facility] [address] [place] [address] Kolton Cao, DO Second trimester ([facility]); 20 weeks gestation of ([facility]); Type 1 diabetes mellitus during , antepartum ([facility])03/23/2025 Abstract [facility] [address] [address] Kolton Cao, DO 5Bamboo flowsheet [facility] [address] [address] Kolton Cao, DO 5Clinisync Result Encounter [facility] External Department Unsolicited Kolton Cao, DO 03/08/2025Patient Outreach [facility] [address] [place] [address] Aline Dudley RN 02/24/2025Patient Outreach [facility] [address] [place] [address] Patria Woods LPN 02/23/2025Telephone [facility] [address] [address] Stella Webb MA 02/23/2025Telephone [facility] [address] [address] Stella Webb MA Error (VOID this visit)02/23/2025Orders Only [facility] [address] [address] Aline Fernández LPN 02/17/2025Telephone [facility] [address] [address] Katja Swanson PARTS ADVISOR 02/16/2025 2:00 PM EDTRoutine [facility] [address] [address] Katharine Cummins PA 15 weeks gestation of ([facility]); Second trimester ([facility]); Screening, , for anatomic survey ([facility]); Exposure to STD; Vaginal discharge; Well woman exam with routine gynecological exam02/16/2025linisync Result Encounter [facility] External Department Unsolicited Katharine Cummins PA 02/16/2025External Result Encounter [facility] External Department Unsolicited Katharine Cummins PA 02/16/2025amboo flowsheet [facility] [address] [address] Katharine Cummins PA 01/25/2025 9:20 AM EDTRoutine [facility] [address] [address] Kolton Cao, 12 weeks gestation of ([facility]); First trimester ([facility])01/25/2025amboo flowsheet [facility] [address] [address] Kolton Cao, 01/18/2025bstract [facility] [address] [address] Kolton Cao, 01/18/2025bstract [facility] [address] [address] Kolton Cao, 01/14/2025Telephone [facility] [address] [phone] Nicolasa Bailey MA 01/14/2025bstract [facility] [address] [place] [address] Nicolasa Bailey MA 01/12/2025Patient Outreach [facility] [address] [place] [address] Kanika Parish, MILKA from Last 3 Months Immunizations ImmunizationAdministration DatesNext SepZQE153089GSrV12/23/2004DTaP, Jrkknddvkwa20/13/2006,11/24/2002,2001,2001HPV, Quadrivalent 08/27/2013,08/21/2013,04/06/2013,03/02/2013Hep B, Adolescent or Pediatric 11/24/2002,2001,2001HiB, ulthcnhsnty91/17/2003,2001,2001 Hib (PRP-T)03/02/2004IPV1,12/20/2005,2001Influenza, injectable, bcftemrmbhiu22/26/2021Influenza, injectable, quadrivalent, preservative free 06/12/2023,05/11/2022Influenza, seasonal, injectable, preservative free 03/17/2025,03/18/2024MMR1,12/20/2005,11/24/2002Meningococcal MCV4P 01/22/2018,03/02/2013PPD Test06/12/2023,06/05/2023,05/18/2022,05/11/2022 Pneumococcal Conjugate PCV 7008/05/2001Polio, Brlncadreci62/17/2003,2001 Tdap107/31/2022,03/02/20136109Bhdahpgpe89/21/2023,03/02/2013,03/18/2008,12/20/2005 Family History Medical HistoryRelationNameCommentsArthritisFatherJohn SeamonAsthmaFatherJohn SeamonStrokeMaternal GrandmotherCynthia HicksDrug abuseMotherKristy SeamonCancer OtherStrokeOtherStrokePaternal GrandfatherDiabetesSister 2Jozlynn SeamonRelation UbqfPezzseNoymltonOpwfwayx2UsafpePjtb SeamonAliveMaternal GrandmotherCynthia HicksMotherKristy SeamonDeceasedOtherHalf BrotherPaternal GrandfatherSister 1x2 [...] relatives?Twice a week03/11/2023How often do you attend orthodoxy or yarsani services?1 to 4 times per year03/11/2023o you belong to any clubs or organizations such as orthodoxy groups, unions, fraternal or athletic laura ups, or school groups?No03/11/2023How often do you attend meetings of the clubs or organizations you belong to?Never03/11/2023re you , , , , never , or living with a partner?Czdryjr8903/11/2023 AUDIT-CAnswerDate RecordedQ1: How often do you have a drink containing alcohol? Monthly or less03/11/2023Q2: How many drinks containing alcohol do you have on a typical day when you are drinking?3 or Q3: How often do you have six or more drinks on one occasion?Less than fkblxmr1003/11/2023Overall Financial Resource Strain (CARDIA)AnswerDate RecordedHow hard is it for you to pay for the very basics like food, housing, medical care, and heating?Somewhat hard 03/11/2023HQ-2AnswerDate RecordedPatient Health Questionnaire-2 Score0 03/25/2025[facility] [place] of Occupational Health - Occupational Stress QuestionnaireAnswerDate [...] slept in ashelter (including now)?No03/11/2023Estimated Date of DixkokwjEusbmxpeZzd57/27/2026ased on last menstrual period of 10/30/2024Sex and Gender InformationValueDate RecordedSex Assigned at ZcxadTudjfi64/01/2023 1:10 PM EDTLegal LdpKoabjl44/15/2023 6:51 PM EDTGender OdarxbvlOluytl19/01/2023 1:10 PM EDTSexual XhvsnxxhnmnRdczzkvz58/01/2023 1:10 PM EDT Last Filed Vital Signs Vital SignReadingTime TakenCommentsBlood Rmufkezm424/7204/08/2025 1:59 PM EDT Mwfxn620203/25/2025 8:46 AM JHNZtzvrjvmviz19 ??C (96.8 ??F)03/25/2025 8:46 AM EDT Respiratory Rate--Oxygen Ptvfswatll21%03/25/2025 8:46 AM EDTInhaled Oxygen Concentration--Pznexw29.5 kg (159 lb 12 oz)04/08/2025 1:59 PM UYFKrifav385.3 cm (4' 10 )03/25/2025 8:46 AM EDTBody Mass Index33.391 8:46 AM EDT Plan of Treatment DateTypeDepartmentCare Team (Latest Contact Info)Jnthydrprqk20/12/2025 10:50 AM ESTRoutine [facility] [address] [address] Katharine Cummins PA [address] [place], [place] [phone] Health MaintenanceDue DateLast DoneCommentsPneumococcal Vaccine: Pediatrics (0 to 5 Years) and At-Risk Patients (6 to 64 Years) (1 of 2 - PCV)02/12/2020 2001COVID-19 Vaccine ( season)/11/2021, 03/21/2021, 1Diabetes: Hemoglobin A1C, 12/15/2024, 12/15/2024, Additional history existsDiabetes: Urine Protein Fdyspzogx85, 11/11/2023, 11/11/2023, Additional history existsDiabetes: Retinopathy Screening 71, 06/30/2019Influenza MskkavkFvdvcfgia57/08/2025, 03/18/2024, 06/12/2023, Additional history exists Goals GoalPatient Goal TypeAssociated ProblemsRecent ProgressPatient-Stated?Author Reminders Care PlanOB RemindersNoOpen Scheduling, Background Procedures Procedure NamePriorityDate/TimeAssociated DiagnosisCommentsPOCT URINALYSIS WWDFHIUSLtoewvt98/30/2025 2:07 PM EDT Second trimester ([facility]) ALPHA FETOPROTEIN, TUMOR AVNSZATojcsfc11/30/2025 10:01 AM EDT DIABETIC RETINOPATHY SCREENING - OU - BOTH IJOTEqdngev33/21/2025 12:15 PM EDT CULTURE, URINE, HBHAMYYFpdjscv58/15/2025 8:04 AM EDT Missed menses POCT URINALYSIS RLUDIBFPSpnlfvj36/14/2025 9:03 AM EDT 20 weeks gestation of ([facility]) [facility] URINE MICROSCOPIC FSYBDuwllez72/11/2025 7:28 AM EDT EMAPWZIDAkwpcyd80/11/2025 7:28 AM EDT TB[facility] UA (CLEAN/CATCH) PIPE CAULKER/MICRO IF IND.Hmbidji3303/20/2025 7:28 AM EDT RECURRENT VAGINITIS (HTRX)Txoftgv4102/16/2025 3:21 PM EDT POCT URINALYSIS HRQRIYXHNomlrte34/09/2025 2:17 PM EDT 15 weeks gestation of ([facility]) Second trimester ([facility]) IGP,APTIMA HPV,AGE MAZSFgvyiwe51/09/2025 2:01 PM EDT PAP MLETCIrsdyti53/09/2025 12:00 AM EDTPOCT URINALYSIS RPZRGWUEPatqlnj87/18/2025 9:33 AM EDT 12 weeks gestation of ([facility]) First trimester ([facility]) HEMOGLOBIN F6BYdqfamh72/08/2025 10:24 AM EDTMICROALBUMIN / CREATININE URINE JZPAMGqgycxa94/20/2025 from Last 3 Months or Most Recently [...] EDT)ComponentValueRef Range Test MethodAnalysis TimePerformed AtPathologist SignatureALPHA BHONOHPYKJS21.3 (H)<=9.9 ng/mLPROMEDICAComment: ?? PERFORMED AT [facility] [address],[place] [address] Specimen (Source)Anatomical Location / LateralityCollection Method / Volume Collection TimeReceived Time04/08/2025 10:01 AM EDT1 12:35 PM EDT Narrative Authorizing ProviderResult TypeResult StatusAmy Maria G PALAB BLOOD ORDERABLES Final ResultPerforming OrganizationAddressCity/State/ZIP CodePhone Number [place] * (ABNORMAL) Diabetic Retinopathy Screening - OU - Both Eyes (03/30/2025 12:15 PM EDT)Anatomical RegionLateralityModalityHeadOther Narrative Authorizing ProviderResult TypeResult StatusThomas W Umesh ODOPHTH PHOTOGRAPHY Final Result * Urine culture [...] 7:28 AM EDT1 7:35 AM EDT Narrative [facility] - 03/20/2025 7:55 AM EDT Authorizing ProviderResult TypeResult StatusCorey Kiley DOCLINISYNCFinal Result Performing OrganizationAddressCity/State/ZIP CodePhone Number [facility] * (ABNORMAL) [facility] UA (CLEAN/CATCH) PIPE CAULKER/MICRO IF IND. (03/20/2025 7:28 AM EDT) ComponentValueRef RangeTest MethodAnalysis TimePerformed AtPathologist SignatureCOLOR URINELT. YELLOWYELLOWTBHCLARITY URINECLEARCLEARTBHSPECIFIC GRAVITY URINE1.0251.005 - 1.025TBHPH URINE6.05.0 - 9.0TBHPROTEIN URINENEGATIVE NEG/TRACE mg/dLTBHGLUCOSE URINE UANEGATIVENEGATIVE mg/dLTBHBILIRUBIN URINE NEGATIVENEGATIVETBHKETONES URINENEGATIVENEGATIVE mg/dLTBHBLOOD URINENEGATIVE NEGATIVETBHNITRITE URINENEGATIVENEGATIVETBHUROBILINOGEN URINE1.00.2 - 1.0 EU/dLTBHLEUKOCYTE ESTERASE URINELARGE(A)NEGATIVETBHURINE MICROSCOPIC INDICATED YESTBHSpecimen (Source)Anatomical Location / LateralityCollection Method / VolumeCollection TimeReceived Time03/20/2025 7:28 AM EDT1 7:35 AM EDT Narrative [facility] - 03/20/2025 7:55 AM EDT Authorizing ProviderResult TypeResult StatusCorey Kiley DOCLINISYNCFinal Result Performing OrganizationAddressCity/State/ZIP CodePhone Number [facility] * (ABNORMAL) RECURRENT VAGINITIS (HTRX) (02/16/2025 3:21 PM EDT)ComponentValue Ref RangeTest MethodAnalysis TimePerformed AtPathologist SignatureATOPOBIUM RTLDLJL33.792(A)19.961 - 24.689 ppm02/17/2025 6:29 AM EDTHealthTrackRx at LabPortATOPOBIUM VAGINAEDetected(A)19.961 - 24.689 ppm02/17/2025 6:29 AM EDT [facility] at LabPortBVAB 2,3 (BACTERIAL VAGINOSIS ASSOCIATED BACTERIA 2, 3); MOBILUNCUS SPP13.669(A)19.961 - 24.689 ppm02/17/2025 6:29 AM EDT [facility] at LabPortBVAB 2,3 (BACTERIAL VAGINOSIS ASSOCIATED BACTERIA 2, 3); MOBILUNCUS SPPDetected(A)19.961 - 24.689 ppm02/17/2025 6:29 AM EDT [facility] at LabPortCANDIDA ALBICANS, PARAPSILOSIS, XWNWDVGTZH15.36(A) 23.000 - 30.347 ppm02/17/2025 6:29 AM EDTHealthTrackRx at LabPortCANDIDA ALBICANS, PARAPSILOSIS, TROPICALISDetected(A)23.000 - 30.347 ppm02/17/2025 6:29 AM EDTHealthTrackRx at LabPortCANDIDA XDKUAENE472.000 - 31.618 ppm 02/17/2025 6:29 AM EDTHealthTrackRx at LabPortCANDIDA GLABRATANot Detected 23.000 - 31.618 ppm02/17/2025 6:29 AM EDTHealthTrackRx at LabPortCANDIDA BFYRSN319.000 - 30.873 ppm02/17/2025 6:29 AM EDTHealthTrackRx at LabPort ESTEFANÍA KRUSEINot Tjujmtxb92.000 - 30.873 ppm02/17/2025 6:29 AM EDT [facility] at LabPortCHLAMYDIA NYRHECAIZXZ894.000 - 31.586 ppm02/17/2025 6:29 AM EDTHealthTrackRx at LabPortCHLAMYDIA TRACHOMATISNot Avpircwn06.000 - 31.586 ppm02/17/2025 6:29 AM EDTHealthTrackRx at LabPortGARDNERELLA VAGINALIS 29.985(A)19.961 - 24.689 ppm/03/2025 6:[address] [facility] GARDNERELLA VAGINALISDetected(A)19.961 - 24.689 ppm02/17/2025 6:29 AM EDT [facility] HospitalMEIASPHONORHEALTH SCOTTSDALE SHEA MEDICAL CENTERRA (TYPES 1, 2)14.74(A)19.961 - 24.689 ppm 02/17/2025 6:[address] [facility]RA (TYPES 1, 2)Detected (A)19.961 - 24.689 ppm02/17/2025 6:[address] [facility] HospitalNEISSERIA JJEZIIQBPQB526.000 - 32.587 ppm02/17/2025 6:[address] [facility] NEISSERIA GONORRHOEAENot Vshruulh67.000 - 32.587 ppm02/17/2025 6:29 AM EDT [facility] HospitalTRICHOMONAS EIZCBNOHE040.000 - 31.995 ppm02/17/2025 6:[address] Clare HospitalTRICHOMONAS VAGINALISNot Tlmriini78.000 - 31.995 ppm02/17/2025 6:[address] [facility] HospitalMYCOPLASMA GENITALIUM0 19.961 - 24.689 ppm02/17/2025 6:[address] [facility] HospitalMYCOPLASMA GENITALIUMNot Egtjonhh05.961 - 24.689 ppm02/17/2025 6:29 AM EDTHealthTrackRx at [facility], C; MEFA20.721(A)23.000 - 27.500 ppm/03/2025 6:29 AM EDT [facility], C; MEFADetected(A)23.000 - 27.500 ppm02/17/2025 6:[address] [facility] HospitalTET B, TET M18.259(A)23.000 - 27.500 ppm 02/17/2025 6:[address] [facility] HospitalTET B, TET MDetected(A)23.000 - 27.500 ppm02/17/2025 6:[address] Clare HospitalSpecimen (Source) Anatomical Location / LateralityCollection Method / VolumeCollection Time Received LunnButgvh96/09/2025 3:21 PM EDT02/17/2025 1:43 AM EDT Narrative Authorizing ProviderResult TypeResult StatusAmy Rolla DELON BLOOD ORDERABLES Final ResultPerforming OrganizationAddressCity/State/ZIP CodePhone Number [facility] [address] [address] * IGP,APTIMA HPV,AGE GDLN (02/16/2025 2:01 PM [...] at: 01 =G ?[facility] [place] ?? [address] [place] ??[phone] ?? Maryjane Up MD, IGP, RFX APTIMA HPV ASCUNote.TBHComment: ?? TESTS ? RESULT ??FLAG ??UNITS ?REF RANGE ??LAB DIAGNOSIS: ?02 ?? NEGATIVE FOR INTRAEPITHELIAL LESION OR MALIGNANCY. Specimen adequacy: ?02 ?? Satisfactory for evaluation. No endocervical component is identified. Performed by: ? 02 ?? Clarita Somers [employer] Ship (ASCP) . ? 02 Note: ? Note [...] High,A-Abnormal,AA-Critical Abnormal Performed at: 02 WB ?[facility] [place] ?? [address] [place] ??[phone] ?? Maryjane Up MD, Performed at: ??=G - [facility] [place] [address] [place], [place] ??[phone] [employer] Consultant: Maryjane Up MD, Phone: ??[phone] Performed at: ??WB - [facility] [place], [place] ??[phone] [employer] Consultant: Maryjane Up MD, Phone: ??[phone] Specimen (Source)Anatomical Location / LateralityCollection Method / [...] specimen obtained by clean catch procedure / Cmxqcmi7310/27/2024 Narrative Authorizing ProviderResult TypeResult StatusFirelands Physician GroupLAB URINE ORDERABLESFinal Result from Last 3 Months or Most Recently Relevant to Health Maintenance Additional Health Concerns Active ProblemsNoted DateDiagnosed DateOB Obrhtjjur12/24/2025 Insurance Care Teams Team MemberRelationshipSpecialtyStart DateEnd Dru Rodriguez DO [address] [place] [address] [facility] - [facility]22/22 Dru Rodriguez DO [address] [place] [address] PCP - Medical [facility]03/10/2312
--- OUTSIDE RECORDS SUMMARY | 2025-04-14 12:26 | XMS_ITS | Encounter Summary ---
Author Organization [facility] tem Address [id number] [address] [place] [address] Care Team Providers Care Gas Desulfurizer Name Role Phone JenniferDru April MUNGUIA Primary Care Provider [phone] Encounter Details DateTypeDepartmentCare Team (Latest Contact Info)Kvkxxqkpkcj90/29/2025Telephone Maternal- Medicine at [facility] [address] [facility] [place] [phone] Carolann Urbina RN Social History Tobacco UseTypesPacks/DayYears UsedDateSmoking Tobacco: NeverSmokeless Tobacco: NeverAlcohol UseStandard Drinks/WeekCommentsYes0 (1 standard drink = 0.6 oz pure alcohol)[facility] UtilitiesAnswerDate RecordedIn the past 12 months has the [employer], gas, oil, or water [employer] threatened to shut off services in your [...] care, and heating?Not hard at all02/17/2025PHQ-2AnswerDate RecordedTotal Bnhsi23806/12/2023Fin[facility] [place] of Occupational Health - Occupational Stress QuestionnaireAnswerDate [...] a household?No02/17/2025hildcareAnswerDate RecordedDo problems getting child development consultant make it difficult for you to [...] and direction in my life.Agree02/17/2025Estimated Date of EjqxogbpAamosihuDuc03/27/2026Based on last menstrual period of 10/30/2024Sex and Gender InformationValueDate RecordedSex Assigned at CjebsHqqqgf22/22/2025 1:51 AM EDTLegal SexFemale 01/13/2015 11:58 AM EDTGender VbdjcanqRdfvda23/22/2025 1:51 AM EDTSexual OrientationNot on filedocumented as of this encounter Miscellaneous Notes * Telephone Encounter - Carolann Urbina RN - 04/07/2025 10:36 AM EDT LMOM x2 requesting return call to schedule video visit this week per Dr Esteban. (T1DM) documented in this encounter Plan of Treatment DateTypeDepartmentCare Team (Latest Contact Info)Kyxtvzhitar43/07/2025 2:00 PM ESTAppointment [facility] [address] [place] [address] 04/20/2025 10:30 AM ESTTelemedicine Maternal- Medicine at [facility] [address] [place] [phone] Rosy rAredondo PA-C [address] [id number] 05/13/2025 8:45 AM ESTAppointment [facility] [address] [place] [phone] documented as of this encounter Visit Diagnoses Diagnosis Uncontrolled type 1 diabetes mellitus with hyperglycemia, with long-term current use of insulin ([facility]) documented in this encounter Additional Health Concerns AssessmentNoted TimePHQ-9 Depression Total Score: 8:31 AM ESTA Body Mass Index follow-up plan has been documented for the dhplmus0106/12/2023 4:35 PM ESTdocumented as of this encounter Care Teams Team MemberRelationshipSpecialtyStart DateEnd Date Dru Rodriguez DO [address] [place] [address] PCP - General01/01/17documented as of this encounter
--- OUTSIDE RECORDS SUMMARY | 2025-04-14 12:26 | XMS_ITS | Encounter Summary ---
Author Organization [facility] tem Address [id number] [address] [place] [address] Care Team Providers Care Lockstitch Lining Setter Name Role Phone JenniferDru April MUNGUIA Primary Care Provider [phone] Encounter Details DateTypeDepartmentCare Team (Latest Contact Info)Uzxgyidlefh28/28/2025Telephone Maternal- Medicine at [facility] [address] [facility] [place] [place] [phone] Carolann Urbina RN Social History Tobacco UseTypesPacks/DayYears UsedDateSmoking Tobacco: NeverSmokeless Tobacco: NeverAlcohol UseStandard Drinks/WeekCommentsYes0 (1 standard drink = 0.6 oz pure alcohol)[facility] UtilitiesAnswerDate RecordedIn the past 12 months has the [employer], gas, oil, or water [employer] threatened to shut off services in [...] care, and heating?Not hard at all02/17/2025PHQ-2AnswerDate RecordedTotal Coxbn63806/12/2023[facility] [place] of Occupational Health - Occupational Stress QuestionnaireAnswerDate [...] and direction in my life.Agree02/17/2025Estimated Date of PsuteoefAfftnbwaGsh05/27/2026Based on last menstrual period of 10/30/2024Sex and Gender InformationValueDate RecordedSex Assigned at LgjagLfccdr14/22/2025 1:51 AM EDTLegal SexFemale 01/13/2015 11:58 AM EDTGender AjovxctaIrokbp94/22/2025 1:51 AM EDTSexual OrientationNot on filedocumented as of this encounter Miscellaneous Notes * Telephone Encounter - Carolann Urbina RN - 04/06/2025 3:36 PM EDT LMOM requesting return call to schedule video visit this week per Dr Esteban. (T1DM) documented in this encounter Plan of Treatment DateTypeDepartmentCare Team (Latest Contact Info)Tbnxtcqsqag15/07/2025 2:00 PM ESTAppointment [facility] [address] [place] [address] 04/20/2025 10:30 AM ESTTelemedicine Maternal- Medicine at [facility] [address] [place] [phone] Rosy Arredondo PA-C [address] [id number] 05/13/2025 8:45 AM ESTAppointment [facility] US Imaging [address] [place] [phone] documented as of this encounter Visit Diagnoses Diagnosis Uncontrolled type 1 diabetes mellitus with hyperglycemia, with long-term current use of insulin ([facility]) documented in this encounter Additional Health Concerns AssessmentNoted TimePHQ-9 Depression Total Score: 8:31 AM ESTA Body Mass Index follow-up plan has been documented for the sgetoha6306/12/2023 4:35 PM ESTdocumented as of this encounter Care Teams Team MemberRelationshipSpecialtyStart DateEnd Date Dru Rodriguez DO [address] [place] [address] PCP - General01/01/17documented as of this encounter
--- OUTSIDE RECORDS SUMMARY | 2025-04-14 12:26 | XMS_ITS | Encounter Summary ---
Author Organization [facility] Address [address] [place] [address] Care Team Providers Care Print Finisher Name Role Phone Dru Rordiguez DO Primary Care Provider [phone]- [phone] Dru Rodriguez DO Unavailable [phone] Encounter Details DateTypeDepartmentCare Team (Latest Contact Info)Vpvwltdpwhd09/05/2025Abstract LALITA [facility] [address] [place] [phone] Kolton Cao DO [address] [place] [id number] Social History Tobacco UseTypesPacks/DayYears UsedDateSmoking Tobacco: NeverSmokeless [...] relatives?Twice a week03/11/2023How often do you attend muslim or evangelical services?1 to 4 times per year03/11/2023o you belong to any clubs or organizations such as muslim groups, unions, fraternal or athletic laura ups, or school groups?No03/11/2023How often do you attend meetings of the clubs or organizations you belong to?Never03/11/2023re you , , , , never , or living with a partner?Qutljgk2403/11/2023 AUDIT-CAnswerDate RecordedQ1: How often do you have a drink containing alcohol? Monthly or less03/11/2023Q2: How many drinks containing alcohol do you have on a typical day when you are drinking?3 or Q3: How often do you have six or more drinks on one occasion?Less than apspbia8803/11/2023Overall Financial Resource Strain (CARDIA)AnswerDate RecordedHow hard is it for you to pay for the very basics like food, housing, medical care, and heating?Somewhat hard 03/11/2023HQ-2AnswerDate RecordedPatient Health Questionnaire-2 Score0 03/25/2025[facility] [place] of Occupational Health - Occupational Stress QuestionnaireAnswerDate [...] slept in ashelter (including now)?No03/11/2023Estimated Date of GmhegdglIzmkeojvSdp22/27/2026ased on last menstrual period of 10/30/2024Sex and Gender InformationValueDate RecordedSex Assigned at WtbbnMbuyvf11/01/2023 1:10 PM EDTLegal HtgExwttp73/15/2023 6:51 PM EDTGender SjreuzydAcngyc07/01/2023 1:10 PM EDTSexual KybbfspyjkfSchwgzcn15/01/2023 1:10 PM EDTdocumented as of this encounter Plan of Treatment DateTypeDepartmentCare Team (Latest Contact Info)Vfhqlmhwopd63/12/2025 10:50 AM ESTRoutine [facility]ac PORTILLO [address] [place] [phone] Katharine Cummins PA [address] [place] [address] documented as of this encounter Goals GoalPatient Goal TypeAssociated ProblemsRecent ProgressPatient-Stated?Author Reminders Care PlanOB RemindersNoOpen Scheduling, Backgrounddocumented as of this encounter Visit Diagnoses Not on filedocumented in this encounter Additional Health Concerns Active ProblemsNoted DateDiagnosed DateOB Cdrnixzki01/24/2025 documented as of this encounter Care Teams Team MemberRelationshipSpecialtyStart DateEnd Date Dru Rodriguez DO [address] [place] [address] [facility] - [facility]10/22/22 rDu Rodriguez DO [address] [place] [address] PCP - Medical [facility]03/10/2312documented as of this encounter
[2025-04-14 12:33] VITALS: BP 114/71; PULSE 86
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
== END 2025-04-14 14:15 | disposition home or self-care (01) ==
LOC: FBC 12:24
PROVIDERS: Admitting Provider Obstetrics & Gynecology; PCP Family Medicine; Visit Provider Obstetrics & Gynecology
DX: O99.891 Other specified diseases and conditions complicating pregnancy (principal); Z3A.23 23 weeks gestation of pregnancy; M54.9 Dorsalgia, unspecified
CPT/HCPCS: 59025; 76815; G0378; G0379

== ENCOUNTER 2025-05-14 18:39 | Outpatient (OUT) | payer OTHER, BC, SELFPAY ==
--- OUTSIDE RECORDS SUMMARY | 2023-12-31 09:00 | XMS_ITS | Continuity of Care Document ---
Author Organization [facility] Address [address] [place] [address] Phone Care Team Providers Care Maintenance Tech Name Role Phone Edna Rodriguez Unavailable Unavailable [...] TOBACCO NON-USER [employer] [facility] [place] Dis Dec Resin Composite 1s; Posterior Prophylaxis Adult Moderate Risk [employer] [facility] [place] Dis Dec Oral Hygiene Instruction PSYTX PT&/FAMILY 60 MINUTES PSYTX PT&/FAMILY 60 MINUTES OFFICE/OUTPATIENT VISIT, EST HG A1C LEVEL < 7.0% TOBACCO NON-USER PSYTX PT&/FAMILY 60 MINUTES OFFICE/OUTPATIENT VISIT, EST MED LIST DOCD IN [facility] RVW MEDS BY RX/DR IN [facility] TOBACCO NON-USER PSYTX PT&/FAMILY 60 MINUTES Intraoral-complete Series (bw) Comp Oral Eval New/estab Patient 2023 Oral Hygiene Instruction PSYTX PT&/FAMILY 60 MINUTES OFFICE/OUTPATIENT VISIT, EST DIAST BP 80-89 MM HG SYST BP < 130 MM HG MED LIST DOCD IN [facility] RVW MEDS BY RX/DR IN [facility] TOBACCO NON-USER PSYTX PT&/FAMILY 60 MINUTES PSYTX PT&/FAMILY 60 MINUTES Advance Directives Directive Yes / No Effective Date File Name No Information Encounters Encounter Description Practice Location Reason(s) For Visit Diagnoses Date Provider Providers Copied on Encounter PSYTX PT&/FAMILY 60 MINUTES [facility], [address] [place] [address], [id number] , [place] [phone] [facility] Psychosis, unspecified psychosis typePTSD (post-traumatic stress disorder)Body mass index [BMI] 27.0-27.9, adultVitamin D deficiency, unspecified 4 Olman Bishop. [address] [place] [address], [id number], [place]. [phone] OFFICE/OUTPA TIENT VISIT, [facility], [address] [place] [address], [id number] , [place] tel:[phone] [facility] Telehealth (chief complaint) Psychosis, unspecified psychosis typePTSD (post-traumatic stress disorder)Body mass index [BMI] 27.0-27.9, adultVitamin D deficiency, unspecified 4 Bellstephen Martinodith. [address] [place], [address], [place]. tel: [phone] [facility], [address] [place] [address], [id number] , [place] tel: [phone] Dental Clinic fill (chief complaint) Encounter for screening for dental disorders 4 Jonh Parr. [address] [place], [place], [id number] , [place]. tel: [phone] [facility], [address] [place] [address], [id number] , [place] tel: [phone] [facility] Dental Clinic [place] (chief complaint) Encounter for screening for dental disorders 4 Jonh Parr. [address] [place], [place], [id number] , [place]. tel: [phone] PSYTX PT&/FAMILY 60 MINUTES [facility], [address] [place] [address], [id number] , [place] tel: [phone] [facility] Psychosis, unspecified psychosis typePTSD (post-traumatic stress disorder)Body mass index [BMI] 27.0-27.9, adultVitamin D deficiency, unspecified 4 Olman JENA Edna. [address] [place], [address], [place]. tel: [phone] PSYTX PT&/FAMILY 60 MINUTES [facility], [address] [place] [address], [id number] , [place] tel: [phone] [facility] Psychosis, unspecified psychosis typePTSD (post-traumatic stress disorder)Body mass index [BMI] 27.0-27.9, adultVitamin D deficiency, unspecified 4 Olman Snydercy. [address] [place] [address], [id number], [place]. tel: [phone] OFFICE/OUTPA TIENT VISIT, EST [facility], [address] [place] [address], [id number] , [place] tel: [phone] [facility] Tele[facility] (chief complaint) Psychosis, unspecified psychosis typePTSD (post-traumatic stress disorder)Body mass index [BMI] 27.0-27.9, adultVitamin D deficiency, unspecified 4 [facility]. [address] [place] [address], [id number], . tel: [phone] PSYTX PT&/FAMILY 60 MINUTES [facility], [address] [place] [address], [id number] , [place] tel: [phone] [facility] Psychosis, unspecified psychosis typePTSD (post-traumatic stress disorder)Body mass index [BMI] 27.0-27.9, adult 4 Olman Bishop. [address] [place] [address], [id number], [place]. tel: [phone] OFFICE/OUTPA TIENT VISIT, [facility], [address] [place] [address], [id number] , [place] tel: [phone] [facility] Telehealth (chief complaint) Psychosis, unspecified psychosis typePTSD (post-traumatic stress disorder)Body mass index [BMI] 27.0-27.9, adult 4 [facility]. [address] [place] [address], [address], [place]. tel: [phone] PSYTX PT&/FAMILY 60 MINUTES [facility], [address] [place] [address], [id number] , [place] tel: [phone] [facility] Psychosis, unspecified psychosis typePTSD (post-traumatic stress disorder)Need for hepatitis C screening testScreening for diabetes mellitusScreening for endocrine disorderScreening for lipid disordersScreening for HIV (human immunodeficiency virus)Body mass index [BMI] 26.0-26.9, adultBody mass index [BMI] 27.0-27.9, adult 4 Olman Bishop. [address] [place] [address], [address], [place]. tel: [phone] [facility], [address] [place] [address], [id number] , [place] tel: [phone] Dental Clinic [place] (chief complaint) Body mass index [BMI] 27.0-27.9, adultEncounter for screening for dental disorders 4 Jonh Baumannal. [address] [place], [place], [id number] , [place]. tel: [phone] [facility], [address] [place] [address], [id number] , [place] tel: [phone] [facility] Encounter for routine general gynecological examination without abnormal findingEncounter for gynecological examination (general) (routine) without abnormal findings 4 Ray Hurley. [address] [place] [address], [id number], [place]. tel: [phone] PSYTX PT&/FAMILY 60 MINUTES [facility], [address] [place] [address], [id number] , [place] tel: [phone] [facility] Psychosis, unspecified psychosis typePTSD (post-traumatic stress disorder)Need for hepatitis C screening testScreening for diabetes mellitusScreening for endocrine disorderScreening for lipid disordersScreening for HIV (human immunodeficiency virus)Body mass index [BMI] 26.0-26.9, adultBody mass index [BMI] 27.0-27.9, adult 4 Olman Bishop. [address] [place] [address], [address], [place]. tel: [phone] OFFICE/OUTPA TIENT VISIT, EST [facility], [address] [place] [address], [id number] , [place] tel: [phone] [facility] Behavioral health (chief complaint) Need for hepatitis C screening testScreening for diabetes mellitusScreening for endocrine disorderScreening for lipid disordersScreening for HIV (human immunodeficiency virus)Body mass index [BMI] 26.0-26.9, adultPsychosis, unspecified psychosis typePTSD (post-traumatic stress disorder)Body mass index [BMI] 27.0-27.9, adult 4 Ray Hurley. [address] [place] [address], [address], [place]. tel: [phone] PSYTX PT&/FAMILY 60 MINUTES [facility], [address], [place], [id number] , [place] tel: [phone] [facility] Schizophrenia, unspecified 4 Olman Bishop. [address] [place], [address], [place]. tel: [phone] PSYTX PT&/FAMILY 60 MINUTES [facility], [address], [place], [id number] , [place] tel: [phone] [facility] Schizophrenia, unspecified 4 Olman Bishop. [address] [place], [address], [place]. tel: [phone] Family History Family Member Type Diagnosis Age At Onset No Information Payers Payer name Insurance type Covered republican ID Authoriza tion(s) No Information Social History [...] Of Treatment Date Type Action Status Goal Hepatitis C scre ening. Due on due Goal Hep A. Due on du e Goal PRAPARE ASSESSMENT. Due on due Goal Influenza vaccine. Due on due Goal Depression scree seth. Due on due Goal Lipid panel. Due on 041 due Goal Tdap. Due on due Goal PAP. Due on due Goal Unhealthy drug u se screening. Due on due Goal Tdap Vaccine. Due on 2023 due Goal RLP. Due on due Goal Tdap Vaccine. Due on 2023 due Goal Hep A. Due on du e Goal Tdap. Due on due Goal PRAPARE ASSESSMENT. Due on due Goal PAP. Due on due Goal Unhealthy drug u se screening. Due on due Goal Influenza vaccine. Due on due Goal Hepatitis C scre ening. Due on due Goal Lipid panel. Due on due Goal RLP. Due on due Goal Depression scree seth. Due on due Goal Dietary manageme nt education, guidance, and counseling completed Goal Hep A. Due on du e Goal Influenza vaccine. Due on due Goal Lipid panel. Due on due Goal Tdap Vaccine. Due on 2023 due Goal PRAPARE ASSESSMENT. Due on due Goal Unhealthy drug u [...] u se screening. Due on due Goal Hep A. Due [...] Depression scree seth. Due on due Goal Dietary manageme nt education, guidance, and counseling completed Goal RLP. Due on due Goal PAP. [...] C scre ening. Due on due Goal Dietary manageme nt [...] Hep A. Due on du e Goal Unhealthy drug u se screening. Due on due Goal Depression scree seth. Due on due Goal Influenza vaccine. Due on due Goal PRAPARE ASSESSMENT. Due on due Goal RLP. Due on due Goal Hepatitis C scre ening. Due on due Goal PAP. Due on due Goal Tdap Vaccine. Due on 2023 due Goal Tdap. Due on due Goal [...] Order HIV 1/0/ 2 Ag/Ab with Reflex ([id number]), Ordered on: Ordered Future Order: Lab Order Hemoglob in A1c ([id number]), Ordered on: Ordered Future Order: Lab Order Lipid Pa jose alejandro ([id number]), Ordered on: Ordered Future Order: Lab Order TSH Rfx on Abnormal to Free T4 ([id number]), Ordered on: Ordered Future Order: Lab Order Vitamin D, 25-Hydroxy ([id number]), Ordered on: Ordered Future Order: Lab Order Vitamin B12 and Folate ([id number]), Ordered on: Ordered Future Order: Lab Order Ammonia, Plasma ([id number]), Ordered on: Ordered Future Order: Lab Order CBC With Differential/Platelet ([id number]), Ordered on: Ordered Future Order: Lab Order Comp. Me tabolic Panel (14) ([id number]), Ordered on: Ordered Future Order: Lab Order Abram gleason Drug Analysis, Ur ([id number]), Ordered on: Ordered Future Order: Lab Order HCV Anti body W/ Reflex To Quantitative Real Time Pcr ([id number]), Ordered on: Ordered History Of Present Illness [...] Edna Thurman. Pt sees Dr. Rodriguez at [facility] for PCP. Pt is UTD on Pap. [facility] in [place]. Pt denies homicidal thoughts. Admits to occasional [...]
--- OUTSIDE RECORDS SUMMARY | 2025-05-13 08:33 | XMS_ITS | Encounter Summary ---
Author Organization [employer] [facility] tem Address [id number] [address] [place] [address] Care Team Providers Care Factory Worker Name Role Phone Dru Rodriguez DO Primary Care Provider +1- [phone] Reason for Referral * Diagnostic Imaging (Routine) - Pending ReviewSpecialtyDiagnoses / Procedures Referred By ContactReferred To ContactMaternal and Medicine Diagnoses Type 1 diabetes mellitus during in second trimester Procedures US [facility] with or without consult Ivory Quinones MD [address] [address] Phone: tel: fax: Maternal- Medicine at [address] [address] Phone: tel: fax: Referral IDStatusReasonStart DateExpiration DateVisits RequestedVisits [id number] Reason for Visit * Diagnostic Imaging (Routine) - Pending ReviewSpecialtyDiagnoses / Procedures Referred By ContactReferred To ContactMaternal and Medicine Diagnoses Type 1 diabetes mellitus during in second trimester Procedures US MFM with or without consult Ivory Quinones MD [address] [facility], [facility] [place] [address] Phone: tel: fax: Maternal- Medicine at [facility] [address] [place] [address] Phone: tel: fax: Referral IDStatusReasonStart DateExpiration DateVisits RequestedVisits [id number] Eorfin71/6/[id number]/ Encounter Details DateTypeDepartmentCare Team (Latest Contact Info)Gybftdvvkzu51/04/2025 8:33 AM EST - 05/13/2025 11:59 PM ESTHospital Encounter [facility] - MFM US Imaging [address] [place] [address] Type 1 diabetes mellitus during in second trimester Discharge Disposition: Home Social History Tobacco UseTypesPacks/DayYears UsedDateSmoking Tobacco: NeverSmokeless Tobacco: NeverAlcohol UseStandard Drinks/WeekCommentsYes0 (1 standard drink = 0.6 oz pure alcohol)socialCLEVELAND CLINIC [facility] UtilitiesAnswerDate RecordedIn the past 12 months [...] care, and heating?Not hard at all02/17/2025PHQ-2AnswerDate RecordedTotal Qphyg46706/12/2023Finbrigham city community hospital [place] of Occupational Health - Occupational Stress QuestionnaireAnswerDate [...] of a household?No02/17/2025hildcareAnswerDate RecordedDo problems getting child support case officer make it difficult for you to work [...] and direction in my life.Agree02/17/2025Estimated Date of XbphcytmSkellensDmr62/27/2026ased on last menstrual period of 10/30/2024Sex and Gender InformationValueDate RecordedSex Assigned at JzbfnPcvapk07/22/2025 1:51 AM EDTLegal SexFemale 01/13/2015 11:58 AM EDTGender KotnmlnsDnskms73/22/2025 1:51 AM EDTSexual OrientationNot on filedocumented as [...] Plan of Treatment DateTypeDepartmentCare Team (Latest Contact Info)Dgyqkbggxzn12/08/2025 1:00 PM ESTTelemedicine Maternal- Medicine at [facility] [address] [place] [id number] Rosy Arredondo PA-C [address] [address] 06/11/2025 3:30 PM ESTAppointment [facility] - [facility] US Imaging [address] [place] [phone] documented as of this encounter Procedures Procedure NamePriorityDate/TimeAssociated DiagnosisCommentsUS MF OB FOLLOW-UP, 1 YKKJRIzgiikx60/04/2025 9:12 AM EST Type 1 diabetes mellitus during in second trimester documented in this encounter Results * US [facility] OB FOLLOW-UP, 1 FETUS (05/13/2025 9:12 AM EST)Anatomical Region LateralityModalityOB-GYNUltrasoundSpecimen (Source)Anatomical Location / LateralityCollection Method / VolumeCollection TimeReceived Time05/13/2025 8:44 AM EST Narrative 05/13/2025 10:52 AM EST NAME: ??COLIN ART : 2000 SEX: F Accession Number: [id number] ORDERING PHYSICIAN: IVORY QUINONES REFERRING PHYSICIAN: BRYANT PULLIAM Coding Procedures ? 94854: Ultrasound, uterus, real time with image documentation, [...] by U/S ?29 w + 3 d MANOD by U/S: ?08/02/2025 Assigned: ?based on the [...] (oz) ? 10 oz EFW by: ?Hadlock (TWY-BJ-ZA-FL) Extended Tibia ??45.1 mm 27w 4d 40% [facility] [employer] Social Worker ? 2.4 mm CM ? 6.4 mm [...] MVP measures 4.6 cm. Recommendations Please see [facility] recommendations from prior clinical and/or ultrasound report documentation. The patient is scheduled in four weeks for follow up growth ultrasound. Subsequent follow up or other follow up as clinically determined by primary OB provider unless otherwise specified by M. Results forwarded to ordering provider so they can follow up with the patient as necessary. Procedure Note Yahaira Miller MD - 05/13/2025 NAME: COLIN ART : 2000 SEX: F Accession Number: [id number] ORDERING PHYSICIAN: IVORY QUINONES REFERRING PHYSICIAN: BRYANT PULLIAM Coding Procedures 75537: Ultrasound, uterus, real time with image documentation, [...] Hadlock Humerus 45.7 mm 27w 0d 20% Arndolph HC / AC 1.08 EFW 1,185 g 49% Hadlock EFW (lb) 2 lb EFW (oz) 10 oz EFW by: Hadlock (LXR-AB-TJ-FL) Extended Tibia 45.1 mm 27w 4d 40% [facility] [employer] Social Worker 2.4 mm CM 6.4 mm 42% Nicolaides [...] MVP measures 4.6 cm. Recommendations Please see [facility] recommendations from prior clinical and/or ultrasoundreport [...] follow-up plan has been documented for the lupkmda5606/12/2023 4:35 PM ESTdocumented as of this encounter Care Teams Team MemberRelationshipSpecialtyStart DateEnd Date Dru Rodriguez DO [address] [place] [address] PCP - General01/01/17documented as of this encounter
--- OUTSIDE RECORDS SUMMARY | 2025-05-14 18:43 | XMS_ITS | Clinical Summary ---
Author Organization [employer] [facility] tem Address [id number] [address] [place] [address] Care Team Providers Care Matlab Developer Name Role Phone JenniferDru April MUNGUIA Primary Care Provider [phone] Allergies Active AllergyReactionsCriticalityNoted TybgKuoakoifRrmsdofiljb16/14/2016 Has since taken without reaction Medications * This document contains information received from the source organization and may not represent a complete record from that organization. MedicationSigDispense QuantityRefillsLast FilledStart DateEnd DateStatus albuterol (PROVENTIL HFA;VENTOLIN HFA) 90 mcg/actuation inhaler Indications:COVIDInhale 2 puffs every 4 (four) hours as needed for wheezing. 18 g 06/08/2021ctive Additional Information Patient not taking.Reported on 04/20/2025 lidocaine (LIDODERM) 5 % Place 1 patch on the skin daily. Remove & Discard patch within 12 hours or as directed by MD 30 patch 04/15/2022ctive Additional Information Patient not taking.Reported on 02/17/2025 OMNIPOD DASH PODS, GEN 4, cartridge 04/12/2022ctive acetaminophen (TylenoL) 325 mg tablet Take 2 tablets (650 mg total) by mouth every 6 (six) hours as needed for pain. 30 tablet 09/12/2022ctive insulin pump cart,auto,BT,G6/7 (OMNIPOD 5 G6-G7 PODS, GEN 5, SUBQ) Inject under the skin.Active acetone, urine, test (KETONE URINE TEST) strip Indications:Type 1 diabetes mellitus during in first trimesterCheck urine for ketones with blood glucose greater than 250mg/dl 100 strip tive Additional Information Patient not taking.Reported on 02/17/2025 aspirin 81 mg Indications:Type 1 diabetes mellitus during in first trimesterTake 1 tablet (81 mg total) by mouth in the morning. 90 tablet 5Active insulin lispro SUBCUTANEOUS PUMP (HumaLOG) 100 unit/mL patient supplied pump Patient to self-manage pump according to the following the above parameters 02/22/2025tive Lactobac no.41/Bifidobact no.7 (PROBIOTIC-10 ORAL) Take by mouth.04/22/2025Discontinued(Stop Taking at Discharge) ondansetron ODT (ZOFRAN ODT) 4 mg disintegrating tablet Dissolve 1 tablet (4 mg total) on tongue every 8 (eight) hours as needed for nausea for up to 10 doses. 10 tablet Discontinued(Stop Taking at Discharge) promethazine (PHENERGAN) 25 mg tablet Take 1 tablet (25 mg total) by mouth every 6 (six) hours as needed for nausea or vomiting. 15 tablet Discontinued(Stop Taking at Discharge) pyridoxine, vitamin B6, (B-6) 100 mg tablet Take 1 tablet (100 mg total) by mouth in the morning. 30 tablet Discontinued(Stop Taking at Discharge) doxylamine (UNISOM) 25 mg tablet Take 1 tablet (25 mg total) by mouth 4 (four) times a day as needed for nausea. 30 tablet Discontinued(Stop Taking at Discharge) glucagon (BAQSIMI) 3 mg/actuation spray,non-aerosol Use to treat unresponsive hypoglycemia 2 each Discontinued(Stop Taking at Discharge) Active Problems Patient Care Coordination No te Formatting of this note is d ifferent from the original. Insulin Instructions Pump Settings- insulin lispro SUBCUTANEOUS PUMP 100 unit/mL patient supplied pump (HumaLOG) Last edited by Ivory Quinones MD on 04/26/2025 at 1:31 PM Automode OFF as of 01/18 --> THEN AUTO MODE BACK ON on 04/20/25. Active insulin time 3hrs Basal Rate Total Basal Dose: 31.95 units/day Time units/hr 12:00 AM 1.4 3:00 AM 1.2 6:00 AM 1.2 9:00 AM 1.45 1:00 PM 1.45 8:00 PM 1.1 10:00 PM 1.2 Blood Glucose Target Time mg/dL 12:00 AM 110 - 110 Sensitivity Factor Time mg/dL/unit 12:00 AM 40 Carb Ratio Time g/unit 12:00 AM 4 3:00 AM 3 6:00 AM 3 9:00 AM 3 4:00 PM 3 8:00 PM 3 10:00 PM 3.5 ProblemNoted DateDiagnosed DateUncontrolled type 1 diabetes mellitus with hyperglycemia, with long-term current use of lhrgamy7702/17/2025Type 1 diabetes mellitus during in second zwbugtmlh09/11/2025DKA, type 1, not at goal 01/06/2018Diabetic ketoacidosis associated with type 1 diabetes mellitus 02/22/2017Acute renal awqseicyaawuu43/11/2017Mechanical breakdown of insulin pump02/18/2017Generalized anxiety fpdxjdsa90/25/2017Panic disorder without yobnptvnrqc60/25/2017DKA, type Mild intermittent wofoog1005/23/2016 Estimated Date of UdrtbxmiNkfhegeiEzu61/27/2026ased on last menstrual period of 10/30/2024 Resolved Problems ProblemNoted DateDiagnosed DateResolved DateCeliac disease in pediatric patient Encounters DateTypeDepartmentCare MdkhTnsrfisooxd11/05/2025Telephone Maternal- Medicine at [facility] [address] [place] [address] Katie Orozco LD 05/13/2025 8:33 AM EST - 05/13/2025 11:59 PM ESTHospital Encounter [facility] US Imaging [address] [place] [address] Type 1 diabetes mellitus during in second trimester Discharge Disposition: Home05/13/2025Orders Only Maternal- Medicine at [facility] [address] [place] [address] Becca Natarajan, BRANDT Type 1 diabetes mellitus during in second trimester (Primary Dx) 05/13/20257166Pkcqhc61/02/2025Orders Only Maternal- Medicine at [facility] [address] [place] [address] Ivory Quinones MD 05/10/2025Orders Only Maternal- Medicine at [facility] [address] [place] [address] Clarita Mchugh, [facility] 05/07/2025Telephone Maternal- Medicine at [facility] [address] [place] [address] Clarita Mchugh, [facility] 05/05/2025Telephone Maternal- Medicine at [facility] [address] [place] [address] Yue Bullock RN 05/04/2025Telephone Maternal- Medicine at [facility] [address] [place] [address] Daniel Walker 05/04/2025Orders Only Maternal- Medicine at [facility] [address] [place] [address] Rosy Arredondo PA-C 05/04/2025Orders Only [facility] - Labor [address] [place] [address] Rosy Arredondo PA-C 05/03/2025Orders Only Maternal- Medicine at [facility] [address] [place] [address] Debby Garcia RN 04/27/2025Documentation Maternal- Medicine at [facility] [address] [place] [address] Yue Bullock, BRANDT 04/26/2025Telephone Maternal- Medicine at [facility] [address] [place] [address] Yue Bullock RN 04/26/2025Remote Patient Monitoring Maternal- Medicine at [address] [place] [address] Ivory Quinones MD Type 1 diabetes mellitus during in second trimester [O24.012] (Primary Dx)04/20/2025 12:29 PM EST - 04/22/2025 2:20 PM ESTHospital Encounter [facility] - GEN 3 Antepartum [address] [place] [address] rCiselda Green, Uncontrolled type 1 diabetes mellitus with hyperglycemia, with long-term current use of insulin ([facility]) Discharge Disposition: Left Against Medical Advice or Discontinued Care 04/20/2025 10:30 AM ESTTelemedicine Maternal- Medicine at [address] [place] [address] Rosy Arredondo, PA-C Type 1 diabetes mellitus during in second trimester (Primary Dx) 04/20/2025Orders Only Maternal- Medicine at [address] [place] [address] Clarita Mchugh CMA 04/20/20253128Rnynlz39/07/2025 1:53 PM EST - 04/16/2025 11:59 PM ESTHospital Encounter [facility] - Cardiovascular [address] [place] [address] Type 1 diabetes mellitus complicating in second trimester, antepartum Discharge Disposition: Home04/16/2025Results Follow-Up Maternal- Medicine at [facility] [address] [place] [address] Georgiana Esteban MD Echo complete W/O ppwiryoz90/06/1273Gmivfb71/06/2025Orders Only Maternal- Medicine at [facility] [address] [place] [address] Katharine Howard, ROD HANGER Type 1 diabetes mellitus during in second trimester (Primary Dx) 04/14/2025 8:00 AM EST - 04/14/2025 11:59 PM ESTHospital Encounter [facility] US Imaging [address] [place] [address] Encounter for other screening follow-up Discharge Disposition: Home04/12/2025 10:00 AM ESTTelemedicine Maternal- Medicine at [facility] [address] [place] [address] Poncho Jeffrey MD Type 1 diabetes mellitus during in second trimester (Primary Dx); Type 1 diabetes mellitus during in first ajwngpujs40/03/2025Travel 04/08/2025 1:00 PM EDTTelemedicine Maternal- Medicine at [facility] [address] [place] [address] Georgiana Esteban MD 22 weeks gestation of (Primary Dx); Type 1 diabetes mellitus complicating in second trimester, antepartum; Asthma complicating in second pqdicxdyr08/30/7977Qddble54/29/2025 Telephone Maternal- Medicine at [facility] [address] [place] [address] Carolann Urbina RN 04/06/2025Telephone Maternal- Medicine at [facility] [address] [place] [address] Carolann Urbina RN 04/05/2025Orders Only Maternal- Medicine at [facility] [address] [place] [address] Clarita Mchugh CMA 03/29/2025 10:30 AM EDTTelemedicine Maternal- Medicine at [facility] [address] [place] [address] Rosy Arredondo PA-C Type 1 diabetes mellitus during in second trimester (Primary Dx) 03/29/20259746Gbezar67/20/2025Orders Only Maternal- Medicine at [facility] [address] [facility] [place] [place] [address] Lula Fernandez, RN 03/29/2025Orders Only Maternal- Medicine at [facility] [address] [place] [address] Debby Garcia, BRANDT 03/24/2025Telephone Maternal- Medicine at [address] [place] [address] Maritza Milian 03/17/2025Telephone Maternal- Medicine at [facility] [address] [place] [address] Maritza Milian 03/16/2025 7:57 AM EDT - 03/16/2025 11:59 PM EDTHospital Encounter [facility] - Ultrasound [address] [place] [address] Type 1 diabetes mellitus during in first trimester Discharge Disposition: Home03/15/2025 3:30 PM EDTTelemedicine Maternal- Medicine at [facility] [address] [place] [address] Rosy Arredondo, TOYA-C Type 1 diabetes mellitus during in second trimester (Primary Dx) 03/15/2025Telephone Maternal- Medicine at [facility] [address] [place] [address] Debby Garcia, BRANDT 03/15/20256444Rbikre91/06/2025Orders Only Maternal- Medicine at [facility] [address] [place] [place] [address] Debby Garcia, BRANDT 03/09/2025Orders Only Maternal- Medicine at [facility] [address] [facility] [place] [place] [address] Yahaira Miller MD 03/09/2025Orders Only Maternal- Medicine at [facility] [address] [facility] [place] [address] Yue Bullock RN 03/09/2025Remote Patient Monitoring Maternal- Medicine at [facility] [address] [facility] [place] [address] Yahaira Miller MD Pre-existing type 1 diabetes mellitus with hyperglycemia during in second trimester ([facility]) (Primary Dx)03/08/2025Orders Only Maternal- Medicine at [facility] [address] [facility] [place] [address] Clarita Mchugh CMA 03/03/2025 10:30 AM EDTTelemedicine Maternal- Medicine at [facility] [address] [facility] [place] [place] [address] Carin Mathur, NUTRITION SERVICES MANAGER-OCEAN EXPORT AGENT Uncontrolled type 1 diabetes mellitus with hyperglycemia, with long-term current use of insulin ([facility]) (Primary Dx)03/03/2025Telephone Maternal- Medicine at [facility] [address] [facility] [place] [address] Lula Fernandez RN 03/03/20257085Ctpoyf12/24/2025Orders Only Maternal- Medicine at [facility] [address] [facility] [place] [address] Lula Fernandez RN 02/24/2025Telephone [facility] - Women's Services [address] [place] [address] Radha Bruno RN Outgoing Call02/22/2025Orders Only Maternal- Medicine at [facility] [address] [place] [address] Rosy Arredondo PA-C 02/22/2025Orders Only Maternal- Medicine at [facility] [address] [place] [address] Clarita Mchugh, [facility] 02/19/2025Orders Only Maternal- Medicine at [address] [place] [address] Clarita Mchugh, [facility] 02/17/2025 6:11 PM EDT - 02/22/2025 3:30 PM EDTHospital Encounter [facility] - GEN 3 Antepartum [address] [place] [address] Annamarie Dave MD Uncontrolled type 1 diabetes mellitus with hyperglycemia, with long-term current use of insulin ([facility]) Discharge Disposition: Home02/17/2025 2:30 PM EDTOffice Visit Maternal- Medicine at [facility] [address] [place] [address] Yahaira Miller MD Pre-existing type 1 diabetes mellitus with hyperglycemia during in second trimester ([facility]) (Primary Dx); Uncontrolled type 1 diabetes mellitus with hyperglycemia, with long-term current use of insulin ([facility]); 15 weeks gestation of ; History of diabetic kyarhsaogjqm94/10/7486Iabgep80/10/2025Telephone [facility] [address] [place] [address] Sharon Goins, YARIEL 02/12/2025Telephone Maternal- Medicine at [address] [place] [address] Odilia Dumas, RN 02/12/2025Orders Only Maternal- Medicine at [facility] [address] [place] [address] Odilia Dumas, RN from Last 3 Months Immunizations ImmunizationAdministration DatesNext [...] drink = 0.6 oz pure alcohol)[facility] UtilitiesAnswerDate RecordedIn the past 12 months has the [employer], gas, oil, or water [employer] threatened to shut off services in your [...] care, and heating?Not hard at all02/17/2025PHQ-2AnswerDate RecordedTotal Fwars63106/12/2023Fin[facility] [place] of Occupational Health - Occupational Stress QuestionnaireAnswerDate [...] a household?No02/17/2025hildcareAnswerDate RecordedDo problems getting child adolescent care make it difficult for you to work [...] and direction in my life.Agree02/17/2025Estimated Date of FfzfgqrxKvpezglkVil41/27/2026ased on last menstrual period of 10/30/2024Sex and Gender InformationValueDate RecordedSex Assigned at QkfsjFaoipm88/22/2025 1:51 AM EDTLegal SexFemale 01/13/2015 11:58 AM EDTGender CqhwuphpXqfbhn24/22/2025 1:51 AM EDTSexual OrientationNot on file Last Filed Vital Signs Vital SignReadingTime TakenCommentsBlood Swzghblo025/6004/22/2025 8:44 AM EST Jpovl958704/22/2025 8:44 AM ENDPajfvfgvksy85.7 ??C (98.1 ??F)04/22/2025 8:44 AM ESTRespiratory Fjaf656606/22/2024 8:44 AM ESTOxygen Anwwcpolmj71%04/21/2025 7:24 PM ESTInhaled Oxygen Concentration--Hjzfvt30.1 kg (161 lb 2.5 oz)04/20/2025 12:30 PM YQJHsrbda717.3 cm (4' 9.99 )02/17/2025 6:00 PM EDTBody Mass Index33.69 02/17/2025 6:00 PM EDT Plan of Treatment DateTypeDepartmentCare Team (Latest Contact Info)Keexlytlcnn51/08/2025 1:00 PM ESTTelemedicine Maternal- Medicine at [facility] [address] [place] [address] Rosy Arredondo, ANDRE [address] [address] 06/11/2025 3:30 PM ESTAppointment [facility] US Imaging [address] [place] [address] Health MaintenanceDue DateLast DoneCommentsDiabetic Ophthalmology Exam2001 Diabetic Foot Exam2019Chlamydia Jpfxqjxoi472Adult BMI Follow Up Plan/4Depression Orwbioruq774COVID- 19 Vaccine ( season)/11/2021, 03/21/2021, 02/28/2021SV ( or age 60+ yrs) (1 - Risk 1-dose series)6Adult BMI Mcmuimqlu66Tobacco Xdwryujym29/Pap Smear /02/2025, 2DTaP,Tdap and Td Vaccines (8 - Td or Tdap) /, 03/02/2013, 03/18/2008, Additional history existsInfluenza VlxfdakXakecmrvs56/08/2025, 03/18/2024, 06/12/2023, Additional history exists Medical Devices ImplantedTypeAreaManufacturerDevice IdentifierShelf Expiration DateModel / Serial / LotNexplanonDescription: control implant in right upper arm Procedures Procedure NamePriorityDate/TimeAssociated DiagnosisCommentsUS MFM OB FOLLOW-UP, 1 MAUIXHkrzfor40/04/2025 9:12 AM EST Type 1 diabetes mellitus during in second trimester EXTRA TUBES SST DMQGyscxkf97/13/2025 9:13 AM EST EXTRA TUBES LAVENDER NRUInqhdzn44/13/2025 9:13 AM EST EXTRA TUBES PST YIDXqpcbzr51/13/2025 9:13 AM EST EXTRA SVEDUEfoovos16/13/2025 9:13 AM EST BEDSIDE QJRUXMEGagdnqj32/12/2025 7:17 PM EST BEDSIDE ZDYAPSEIgudwlc67/12/2025 3:56 PM EST BEDSIDE YKBCQEIOhdgtcn45/12/2025 3:41 PM EST BEDSIDE NAKILSREbkjbff97/12/2025 6:13 AM EST BEDSIDE UWWWYVMPzyziyf50/11/2025 7:37 PM EST BEDSIDE FNMDRSHHnwnltk54/11/2025 7:18 PM EST REPEATED IJXPXLpfufil94/11/2025 1:14 PM EST T4, FREEAdd-On04/20/2025 1:14 PM EST TSHAdd-On04/20/2025 1:14 PM EST ACETONE,(BETAHYDROXYBUTYRATE, KETONE) QUANTITATIVE EJCVPCtxgvbx60/11/2025 1:14 PM EST CBC WITH AUTO UFNWZFMWNKBXDboqyfz66/11/2025 1:14 PM EST COMPREHENSIVE METABOLIC RKHQNOaxqmzp53/11/2025 1:14 PM EST ECHO COMPLETE WO CCWNZNRQDulayvb47/07/2025 2:29 PM EST Type 1 diabetes mellitus complicating in second trimester, antepartum [facility] OB FOLLOW-UP, 1 EGBWCGgymevt21/05/2025 9:34 AM EST Encounter for other screening follow-up ALPHA OGTJKEAEMVZLxuzkxo56/30/2025 10:01 AM EDT Encounter for supervision of normal , unspecified, second trimester B-TYPE NATRIURETIC VZEJQOYWtbpdgz53/30/2025 10:01 AM EDT Type 1 diabetes mellitus during in second trimester EXTRA TUBES LAVENDER XMILmktbgf60/30/2025 9:56 AM EDT Encounter for supervision of normal , unspecified, second trimester Uncontrolled type 1 diabetes mellitus with hyperglycemia, with long-term current use of insulin ([facility]) Type 1 diabetes mellitus during in second trimester EXTRA UEZOTGngvsyp44/30/2025 9:56 AM EDT Encounter for supervision of normal , unspecified, second trimester Uncontrolled type 1 diabetes mellitus with hyperglycemia, with long-term current use of insulin ([facility]) Type 1 diabetes mellitus during in second trimester HEMOGLOBIN R7RNaselxr74/30/2025 9:56 AM EDT Uncontrolled type 1 diabetes mellitus with hyperglycemia, with long-term current use of insulin ([facility]) [facility] COMPREHENSIVE ANATOMIC MGKFKFZccljqi91/07/2025 9:52 AM EDT Type 1 diabetes mellitus during in first trimester BEDSIDE RQCNGPYPvbgqtz76/15/2025 1:59 PM EDT BEDSIDE SUKTUFQSzurmuc80/15/2025 12:57 PM EDT BEDSIDE BFZSJZFJmbhmzt74/15/2025 11:44 AM EDT BEDSIDE XHGEXXCWdtoaup14/15/2025 11:19 AM EDT BEDSIDE ZUHTYFONvanqaa38/15/2025 10:59 AM EDT BEDSIDE VDNNCZBLhcfczn24/15/2025 9:11 AM EDT BEDSIDE GXWWOWHOnmbavm48/15/2025 5:47 AM EDT BEDSIDE IYACBWKFopcywe13/15/2025 3:08 AM EDT BEDSIDE FIYJMJOWfvruxj33/15/2025 12:37 AM EDT BEDSIDE TQAQWQYHkxuhyn75/15/2025 12:16 AM EDT BEDSIDE DVNUWFUGzihpyi64/14/2025 9:46 PM EDT BEDSIDE SJVASJBCeszxwk12/14/2025 9:25 PM EDT BEDSIDE PQSEEBLPfjgeso59/14/2025 7:21 PM EDT BEDSIDE JPDWILLJdgirba46/14/2025 6:15 PM EDT BEDSIDE ZLNYIIALslyqkx00/14/2025 5:42 PM EDT BEDSIDE KKUIKTKNwcmond62/14/2025 5:24 PM EDT BEDSIDE BMJZHVFMgtfrsc09/14/2025 5:08 PM EDT BEDSIDE YGELHBTBdmpsid19/14/2025 3:19 PM EDT BEDSIDE EVSHTXAGabpoqo57/ 2:49 PM EDT BEDSIDE ISRCDAKSxmdzxc11/14/2025 1:40 PM EDT BEDSIDE BCHBFVMWuqsswt88/14/2025 10:19 AM EDT BEDSIDE UXDJEBQLrxdcqv35/14/2025 9:08 AM EDT BEDSIDE HOZDTZHHchtbgg00/14/2025 6:15 AM EDT BEDSIDE ORKKLXEQgvvnle21/14/2025 3:17 AM EDT BEDSIDE LVOCHZQGosplcn82/14/2025 12:03 AM EDT BEDSIDE PXWMVQFLdbqidr02/13/2025 9:10 PM EDT BEDSIDE HFYHBJMIddypdk26/13/2025 7:46 PM EDT BEDSIDE SHZOFKCKqremxv59/13/2025 7:27 PM EDT BEDSIDE YAXWECHSacletk35/13/2025 6:17 PM EDT BEDSIDE XGARSKYNkmflls40/13/2025 5:11 PM EDT BEDSIDE ZCCLNMBZiunins63/13/2025 2:22 PM EDT BEDSIDE AMZMYIQVttymmq56/13/2025 1:21 PM EDT BEDSIDE NVIZNOUJbkqzwc93/13/2025 10:24 AM EDT BEDSIDE CIGDEPGIxgijim66/13/2025 9:12 AM EDT BEDSIDE EBMSOMORiigbcn47/13/2025 8:22 AM EDT BEDSIDE QZRURSTHwtykdm45/13/2025 7:40 AM EDT BEDSIDE LUYGPWOQkmeysb01/13/2025 6:01 AM EDT BEDSIDE IWGVHVVMgsvmmq78/13/2025 2:57 AM EDT BEDSIDE YDQOCWUSpuowma72/12/2025 11:57 PM EDT BEDSIDE WOOKHFQMwkjybq39/12/2025 9:25 PM EDT BEDSIDE EXYZFNXNinhjgc13/12/2025 8:58 PM EDT BEDSIDE ASBPLGZQiclzlq60/12/2025 6:52 PM EDT BEDSIDE CZEXLSMQslybww28/12/2025 5:51 PM EDT BEDSIDE KOQVMUUDkvnrje66/12/2025 2:42 PM EDT BEDSIDE GYFBMVBWiqgayt65/12/2025 1:38 PM EDT BEDSIDE EBGQMLRCepxpzu47/12/2025 1:16 PM EDT BEDSIDE HIFJGOFOwopacg14/12/2025 12:55 PM EDT BEDSIDE DHNHZGZDcnezvn21/12/2025 12:34 PM EDT BEDSIDE QKZAEZHMadiixh46/12/2025 9:55 AM EDT BEDSIDE DXIQJAMGgfzdqz42/12/2025 8:53 AM EDT PROTEIN, URINE, 24 ZNNRPzipamo62/12/2025 6:57 AM EDT BEDSIDE WXGYEWYZnsjvfx33/12/2025 5:27 AM EDT BEDSIDE JBAMDIOYjialpo50/12/2025 4:51 AM EDT BEDSIDE NOEEKBWLjldsms51/12/2025 3:14 AM EDT BEDSIDE PCCKYWUFudhgps81/12/2025 12:01 AM EDT BEDSIDE MIEEZGUMhpghqe85/11/2025 9:04 PM EDT BEDSIDE JRVTYEHQjmbarj2025 7:02 PM EDT BEDSIDE NZUVHDMYffyoqc2025 5:53 PM EDT BEDSIDE TTJIIJAOsqfijw48/11/2025 2:42 PM EDT ECG 12-ALXNAiavjct66/11/2025 10:54 AM EDT BEDSIDE TOMTOLKLryumnj11/11/2025 10:37 AM EDT BEDSIDE ZWYGGSMHjgirgc07/11/2025 10:11 AM EDT BEDSIDE SMCZXAISbbcnlw94/11/2025 9:34 AM EDT EXTRA TUBES LAVENDER TEFIhmqaqt74/11/2025 8:20 AM EDT EXTRA UEVXVDwmpiqo05/11/2025 8:20 AM EDT URIC ACIDAdd-On02/18/2025 8:20 AM EDT LDHAdd-On02/18/2025 8:20 AM EDT BEDSIDE SZONACQAfkrxil23/11/2025 6:03 AM EDT BEDSIDE YGDCRHBKevmtna05/11/2025 2:47 AM EDT BEDSIDE GFCMADUAfqgtiy80/11/2025 2:26 AM EDT BEDSIDE QDCKFMABzxyfdi00/11/2025 2:06 AM EDT BEDSIDE FHQCHSVJglytte95/10/2025 9:45 PM EDT QMDKWIJVBQVLOK24/10/2025 7:25 PM EDT URINE XCGHSPWRUFE10/10/2025 7:25 PM EDT EXTRA TUBES SST SLXGytonqt83/10/2025 7:17 PM EDT EXTRA IETSTOhaiijk33/10/2025 7:17 PM EDT CBC WITH AUTO GNJKLRAEHSYPTUYS52/10/2025 7:17 PM EDT ACETONE,(BETAHYDROXYBUTYRATE, KETONE) QUANTITATIVE RWKCCSppkkix02/10/2025 7:16 PM EDT COMPREHENSIVE METABOLIC AIABJXQLU46/10/2025 7:16 PM EDT BEDSIDE ZYRNMUDVdwiqxk38/10/2025 7:15 PM EDT PAP VMRTFCjnilyc40/24/2022 10:35 AM EDT Cervical smear, as part of routine gynecological examination CHLAMYDIA/GC BY PCR OMAIRA TMGRSjlgscs97/11/2022 6:33 PM EDT Menorrhagia with irregular cycle Metrorrhagia DUB (dysfunctional uterine bleeding) from Last 3 Months or Most Recently Relevant to Health Maintenance Results * [facility] OB FOLLOW-UP, 1 FETUS (05/13/2025 9:12 AM EST) Only the most recent of3 resultswithin the time period is included. Anatomical RegionLateralityModalityOB-GYNUltrasoundSpecimen (Source)Anatomical Location / LateralityCollection Method / VolumeCollection TimeReceived Time 05/13/2025 8:44 AM EST Narrative 05/13/2025 10:52 AM EST NAME: ??DARREN ART : 2000 SEX: F Accession Number: [id number] ORDERING PHYSICIAN: IVORY QUINONES REFERRING PHYSICIAN: BRYANT PULLIAM Coding Procedures ? 56391: Ultrasound, uterus, real time with image documentation, [...] (oz) ? 10 oz EFW by: ?Hadlock ([id number]) Extended Tibia ??45.1 mm 27w 4d 40% [employer] ? 2.4 mm CM ? 6.4 mm [...] MVP measures 4.6 cm. Recommendations Please see [facility] recommendations from prior clinical and/or ultrasound report documentation. The patient is scheduled in four weeks for follow up growth ultrasound. Subsequent follow up or other follow up as clinically determined by primary OB provider unless otherwise specified by [facility]. Results forwarded to ordering provider so they can follow up with the patient as necessary. Procedure Note Yahaira Miller MD - 05/13/2025 NAME: DARREN ART : 2000 SEX: F Accession Number: [id number] ORDERING PHYSICIAN: IVORY QUINONES REFERRING PHYSICIAN: BRYANT PULLIAM Coding Procedures 99687: Ultrasound, uterus, real time with image documentation, [...] EFW (oz) 10 oz EFW by: Hadlock ([id number]-FL) Extended Tibia 45.1 mm 27w 4d 40% [employer] 2.4 mm CM 6.4 mm 42% Nicolaides [...] MVP measures 4.6 cm. Recommendations Please see [facility] recommendations from prior clinical and/or ultrasoundreport documentation. The patient is scheduled in four weeks for follow up growth ultrasound. Subsequent follow up or other follow up as clinically determined byprimary OB provider unless otherwise specified by [facility]. Results forwarded to ordering provider so they can follow up with thepatient as necessary. Authorizing ProviderResult TypeResult StatusIvory AMES US ORDERABLESFinal Result * SST TOP (04/22/2025 9:13 AM EST) Only the most recent of2 resultswithin the time period is included. ComponentValueRef RangeTest MethodAnalysis TimePerformed AtPathologist Signature Extra TubeAuto Dswvsyxu56/13/2025 11:01 AM [facility] LABORATORYSpecimen (Source)Anatomical Location / LateralityCollection Method / VolumeCollection TimeReceived TimeBloodVenous blood / Zfjkwej3604/22/2025 9:13 AM EST04/22/2025 10:09 AM EST Narrative Authorizing ProviderResult TypeResult StatusCriselda Green [facility] BLOOD ORDERABLESFinal ResultPerforming OrganizationAddressCity/State/ZIP CodePhone Number [facility] [address] [place] [address], [place] [phone] * Lavender Top (04/22/2025 9:13 AM EST) Only the most recent of3 resultswithin the time period is included. ComponentValueRef RangeTest MethodAnalysis TimePerformed AtPathologist Signature Extra TubeAuto Vhitdclc96/13/2025 11:01 AM [facility] LABORATORYSpecimen (Source)Anatomical Location / LateralityCollection Method / VolumeCollection TimeReceived TimeBloodVenous blood / Pudawlx8504/22/2025 9:13 AM EST04/22/2025 10:09 AM EST Narrative Authorizing ProviderResult TypeResult StatusCriselda Green DOLAB BLOOD ORDERABLESFinal ResultPerforming OrganizationAddressCity/State/ZIP CodePhone Number [facility] [address] [place] [address], [place] [phone] * PST TOP (04/22/2025 9:13 AM EST)ComponentValueRef RangeTest MethodAnalysis TimePerformed AtPathologist SignatureExtra TubeAuto Qpqjsken72/13/2025 11:01 AM [facility] LABORATORYSpecimen (Source)Anatomical Location / LateralityCollection Method / VolumeCollection TimeReceived TimeBloodVenous blood / Tvekjkt7304/22/2025 9:13 AM EST04/22/2025 10:09 AM EST Narrative Authorizing ProviderResult TypeResult StatusCriselda Green DOLAB BLOOD ORDERABLESFinal ResultPerforming OrganizationAddressCity/State/ZIP CodePhone Number [facility] [address] [place] [address], [place] [phone] * (ABNORMAL) Bedside Glucose *Place/Obtain serum glucose if >500 per glucometer. (04/21/2025 7:17 PM EST) Only the most recent of73 resultswithin the time period is included. ComponentValueRef RangeTest MethodAnalysis TimePerformed AtPathologist Signature Bedside Glucose (POC)152(H)65 - 99 mg/dL04/21/2025 7:22 PM [facility] LABORATORYSpecimen (Source)Anatomical Location / LateralityCollection Method / VolumeCollection TimeReceived Timearterial/mmraitzvk82/12/2025 7:17 PM EST 04/21/2025 7:22 PM EST Narrative Authorizing ProviderResult TypeResult StatusCriselda Jeison Freddieteena DOPOINT OF CARE TEST ORDERABLESFinal ResultPerforming OrganizationAddressCity/State/ZIP CodePhone Number [facility] [address] [place] [address], [place] * ABO Rh Repeat (04/20/2025 1:14 PM EST)ComponentValueRef RangeTest Method Analysis TimePerformed AtPathologist QyowahthvRCUD57/13/2025 10:32 AM ESTTTH BB - KDQJCWXKCMtvizjqp07/13/2025 10:32 AM ESTTT JENNY - BRESpecimen (Source) Anatomical Location / LateralityCollection Method / VolumeCollection Time Received TimeBloodVenous blood / UnknownVenipuncture / Sgsnrpv3604/20/2025 1:14 PM EST04/20/2025 1:33 PM EST Narrative Authorizing ProviderResult TypeResult StatusIsaac Sapphire GARIBAYBLOOD BANK TEST ORDERABLESFinal ResultPerforming OrganizationAddressCity/State/ZIP CodePhone Number [facility] JENNY DÍAZ [address] [place] [address], * (ABNORMAL) CBC auto differential (04/20/2025 1:14 PM EST) Only the most recent of2 resultswithin the time period is included. ComponentValueRef RangeTest MethodAnalysis TimePerformed AtPathologist Signature WBC12.7(H)4 - 11 X10^9/L106/20/2024 1:50 PM [facility] LABORATORYRBC Count3.72(L)3.8 - 5.2 X10^12/L106/20/2024 1:50 PM [facility] TXDAEANPUIBgvuikupkw16.3(L)11.7 - 15.5 g/dL04/20/2025 1:50 PM [facility] NMDRRPUMACItpvqmrjey76.7(L)35 - 47 %04/20/2025 1:50 PM [facility] VSBWLHYCKQHGF5844 - 100 fL04/20/2025 1:50 PM [facility] FHHEUWVCPGVUW17.327 - 34 pg04/20/2025 1:50 PM [facility] IHXPISWOBRRKAS58.532 - 36 g/dL04/20/2025 1:50 PM [facility] QSRIOKOFZDMCH09.511.5 - 15 %04/20/2025 1:50 PM [facility] LABORATORYPlatelet Fhbzm178186 - 450 X10^9/L106/20/2024 1:50 PM [facility] LABORATORYMPV8.97 - 12 fL04/20/2025 1:50 PM EST [facility] LABORATORYNeutrophils %80.6%04/20/2025 1:50 PM [facility] LABORATORYLymphocytes %12.7%04/20/2025 1:50 PM [facility] LABORATORYMonocytes %5.6%04/20/2025 1:50 PM [facility] LABORATORYEosinophils %0.7%04/20/2025 1:50 PM [facility] LABORATORYBasophils %0.4%04/20/2025 1:50 PM [facility] LABORATORYNeutrophils Absolute (A)10.2(H)1.5 - 6.6 X10^9/L106/20/2024 1:50 PM [facility] LABORATORYLymphocytes Absolute1.61.0 - 3.5 X10^9/L106/20/2024 1:50 PM [facility] LABORATORYMonocytes Absolute0.70.0 - 0.9 X10^9/L106/20/2024 1:50 PM [facility] LABORATORYEosinophils Absolute0.10.0 - 0.4 X10^9/L106/20/2024 1:50 PM [facility] LABORATORYBasophils Absolute0.10.0 - 0.2 X10^9/L106/20/2024 1:50 PM [facility] LABORATORYDifferential TypeAUTOMATED IOOEUFUPADUO33/11/2025 1:50 PM [facility] LABORATORYSpecimen (Source)Anatomical Location / LateralityCollection Method / VolumeCollection TimeReceived TimeBloodVenous blood / UnknownVenipuncture / Ospxtdj5404/20/2025 1:14 PM EST04/20/2025 1:33 PM EST Narrative Authorizing ProviderResult TypeResult StatusIsaac Sapphire PAIGE BLOOD ORDERABLESFinal ResultPerforming OrganizationAddressCity/State/ZIP CodePhone Number [facility] [address] [place] [id number], * Acetone, (BetaHydroxybutyrate, Ketone) quantitative, serum (04/20/2025 1:14 PM EST) Only the most recent of2 resultswithin the time period is included. ComponentValueRef RangeTest MethodAnalysis TimePerformed AtPathologist Signature BETAHYDROXYBUTYRATE0.100.02 - 0.27 mmol/L106/20/2024 2:15 PM [facility] LABORATORYSpecimen (Source)Anatomical Location / LateralityCollection Method / VolumeCollection TimeReceived TimeBloodVenous blood / Unknown Venipuncture / Rtdmdwa6904/20/2025 1:14 PM EST04/20/2025 1:32 PM EST Narrative Authorizing ProviderResult TypeResult StatusCristofer Leary MDLAB BLOOD ORDERABLESFinal ResultPerforming OrganizationAddressCity/State/ZIP CodePhone Number [facility] [address] [place] [address], * TSH (04/20/2025 1:14 PM EST)ComponentValueRef RangeTest MethodAnalysis Time Performed AtPathologist SignatureTSH0.750.49 - 4.67 uIU/mL04/21/2025 9:43 AM [facility] LABORATORYSpecimen (Source)Anatomical Location / LateralityCollection Method / VolumeCollection TimeReceived TimeBloodVenous blood / UnknownVenipuncture / Nhwslwq9704/20/2025 1:14 PM EST04/20/2025 1:32 PM EST Narrative Authorizing ProviderResult TypeResult StatusCristofer Leary MDLAB BLOOD ORDERABLESFinal ResultPerforming OrganizationAddressCity/State/ZIP CodePhone Number [facility] [address] [place] [address], * T4, free (04/20/2025 1:14 PM EST)ComponentValueRef RangeTest MethodAnalysis TimePerformed AtPathologist SignatureFREE T40.640.61 - 1.60 ng/dL04/21/2025 9:48 AM [facility] LABORATORYSpecimen (Source)Anatomical Location / LateralityCollection Method / VolumeCollection TimeReceived Time BloodVenous blood / UnknownVenipuncture / Xbbhymn7104/20/2025 1:14 PM EST 04/20/2025 1:32 PM EST Narrative Authorizing ProviderResult TypeResult StatusCristofer PAIGE BLOOD ORDERABLESFinal ResultPerforming OrganizationAddressCity/State/ZIP CodePhone Number [facility] [address] [place] [address], * (ABNORMAL) Comprehensive metabolic panel (04/20/2025 1:14 PM EST) Only the most recent of2 resultswithin the time period is included. ComponentValueRef RangeTest MethodAnalysis TimePerformed AtPathologist Signature ITQLAS546966 - 146 mmol/L106/20/2024 2:15 PM [facility] LABORATORYPOTASSIUM3.93.5 - 5.0 mmol/L106/20/2024 2:15 PM [facility] USNBYSJGSDGCJWOZPE64028 - 109 mmol/L106/20/2024 2:15 PM [facility] LABORATORYCARBON USESUGW7642 - 32 mmol/L106/20/2024 2:15 PM [facility] LABORATORYANION GAP75 - 15 mmol/L106/20/2024 2:15 PM [facility] LABORATORYBLOOD UREA ZXCMQQWQ04 - 23 mg/dL04/20/2025 2:15 PM [facility] LABORATORYCREATININE0.620.40 - 1.00 mg/dL04/20/2025 2:15 PM [facility] LABORATORYComment:METHOD TRACEABLE TO IDAK ASFMPDIFTCUWTWL124(H)65 - 99 mg/dL04/20/2025 2:15 PM [facility] LABORATORYCALCIUM8.58.5 - 10.5 mg/dL04/20/2025 2:15 PM [facility] LABORATORYTOTAL PROTEIN6.16.0 - 8.0 g/dL04/20/2025 2:15 PM [facility] LABORATORYALBUMIN3.1(L)3.2 - 5.3 g/dL04/20/2025 2:15 PM [facility] LABORATORYALKALINE DRMAIGNZOYX6334 - 130 U/L106/20/2024 2:15 PM [facility] RHJHPEJJYBCZI24<=41 U/L106/20/2024 2:15 PM [facility] DXTCOOJFLDRNH00(H)<=31 U/L106/20/2024 2:15 PM EST [facility] LABORATORYBILIRUBIN,TOTAL0.2(L)0.3 - 1.2 mg/dL 04/20/2025 2:15 PM [facility] LABORATORYEGFR Non-Race Dependent >90>=60 ml/min/1.73sq.m106/20/2024 2:15 PM [facility] Comment: Reported eGFR is based on the CKD-EPI 2020 equation that does not use a race coefficient. Specimen (Source)Anatomical Location / LateralityCollection Method / Volume Collection TimeReceived TimeBloodVenous blood / UnknownVenipuncture / Unknown 04/20/2025 1:14 PM EST04/20/2025 1:32 PM EST Narrative Authorizing ProviderResult TypeResult StatusIsaac Sapphire PAIGE BLOOD ORDERABLESFinal ResultPerforming OrganizationAddressCity/State/ZIP CodePhone Number [facility] [address] [place] [address], * Echo complete W/O contrast (04/16/2025 2:29 PM EST)ComponentValueRef RangeTest MethodAnalysis TimePerformed AtPathologist SignatureLVOT stroke mepcml24.88ml NGIPJYNIY7010 - 44 %XCELERALVIDd4.70pmHBIHHTUFHFOd9.35lcDQXIQUFCLP4.900.6 - 1.1 cmXCELERAPW0.900.6 - 1.1 cmXCELERALVOT diameter1.19bqIPVCNAPQVE45.20cm/s XCELERAMV TDI E' (medial)8.27cm/sXCELERALA Volume Index13.7mL/a6WMXONVJM/A ratio1.32XCELERAE wave deceleration gcju012.00msecXCELERAMV Peak E Cap727.00 cm/sXCELERAMV Peak A Vel78.60cm/sXCELERALA size3.20cmXCELERAAortic root2.50cm XCELERALA enzanw99.76ch2VNHNSMQYL diastolic dimension (basal)27.0mmXCELERARVID d2.7jmVMIUEQZBHZFE4.38cmXCELERAAV peak xgl781.00cm/sXCELERALVOT peak vel1.16 m/sXCELERAAV VTI39.00cmXCELERALVOT peak VTI26.30cmXCELERAAV mean gradient8.00 mmHgXCELERAAV peak xoriaxwt32.75mmHgXCELERAAV valve area1.36XCELERAValve area - Index0.8XCELERAMV pressure 1/2 time53.00msXCELERAMV valve area p 1/2 method 4.11pw1BDSIRHKBS mean gradient3.00mmHgXCELERAPV peak gradient4.84mmHgXCELERALV ESV A2C20.70mLXCELERALV ESV A4C22.20mLXCELERALV RWT 2D45.00XCELERAAV Velocity Ratio0.67XCELERALeft Ventricle Xytr743.759301896038748pXBXXFFS Interventricular Septum Diastolic Thickness by 9J4ddEQTPFBQCcg. RA pressure3 mmHgXCELERARA area9.8be5BIMLRBNNvkzpjnexm RegionLateralityModalityChestN/A UltrasoundSpecimen (Source)Anatomical Location / LateralityCollection Method / VolumeCollection TimeReceived Time Narrative 04/16/2025 3:13 PM EST Left Ventricle: Left ventricle appears normal in size. Systolic function is normal with an ejection fraction of 60-65%. Normal diastolic function is present. ?Right??Ventricle: Right ventricular size appears normal. ??Systolic function is normal. ?There is no significant valvular stenosis or regurgitation. Left Ventricle Left ventricle appears normal in size. Wall thickness is normal. Systolic function is normal with an ejection fraction of 60-65%. Unable to assess wall motion due to poor endocardial definition. Normal diastolic function is present. Lateral E' is 12.20 cm/s. Medial E' is 8.27 cm/s. Right Ventricle Right ventricular size appears normal. The right ventricular basal diameter is 27.0 mm. Systolic function is normal. Normal tricuspid annular plane systolic excursion. Normal systolic excursion velocity by TDI (>9.5 cm/s). Left Atrium Left atrium volume index is normal. The left atrial volume index is 13.7 mL/m2. Right Atrium Right atrium is normal in size. The right atrial area is 9.0 cm2. IVC/SVC The right atrial pressure is estimated at 3 mmHg. There is normal collapse with deep inspiration. Mitral Valve Mitral valve structure is normal. There is trace regurgitation. There is no evidence of mitral valve stenosis. Tricuspid Valve Tricuspid valve appears to be normal. There is trace regurgitation. There is no evidence of tricuspid valve stenosis. Insufficient regurgitant jet to assess right ventricular systolic pressure. RVSP is based on RA pressure of 3 mmHg. RVSP estimated at <30 mmHg. Aortic Valve Probable trileaflet aortic valve. There is no regurgitation or stenosis. Pulmonic Valve The pulmonic valve was not well visualized. Pulmonic valve structure is grossly normal. There is noregurgitation or stenosis. The peak gradient is 4.84 mmHg. The mean gradient is 3.00 mmHg. Ascending Aorta The aortic root is normal in size. Pericardium The pericardium appears normal. Study Details A complete echo was performed using complete 2D, color flow Doppler and spectral Doppler. Overall the study quality was adequate. The study had technical difficulties. Patient is 24 weeks . Unable to use Definity. BP 122/61 Wall Scoring Baseline Score Index: 1.00 The left ventricular wall motion is normal. Authorizing ProviderResult TypeResult StatusGeorgiana Esteban [facility] ECHO ORDERABLESFinal Result * (ABNORMAL) Alpha fetoprotein (04/08/2025 10:01 AM EDT)ComponentValueRef Range Test MethodAnalysis TimePerformed AtPathologist SignatureALPHA XXKXVXGZAVD05.3 (H)<=9.9 ng/mL04/08/2025 1:25 PM [facility] Specimen (Source)Anatomical Location / LateralityCollection Method / Volume Collection TimeReceived TimeBloodVenous blood / UnknownVenipuncture / Unknown 04/08/2025 10:01 AM EDT1 10:01 AM EDT Narrative Authorizing ProviderResult TypeResult StatusKatharine JERNIGAN BLOOD ORDERABLES Final ResultPerforming OrganizationAddressCity/State/ZIP CodePhone Number [facility] [address] [place] [address], * B-type natriuretic peptide (04/08/2025 10:01 AM EDT)ComponentValueRef Range Test MethodAnalysis TimePerformed AtPathologist TogvulqgeDEK69<=100 pg/mL 04/08/2025 11:24 AM EDTPROM[facility]ELASTAR COMM[facility]PITALpecimen (Source) Anatomical Location / LateralityCollection Method / VolumeCollection Time Received TimeBloodVenous blood / UnknownVenipuncture / Hhqjfck8604/08/2025 10:01 AM EDT1 10:01 AM EDT Narrative Authorizing ProviderResult TypeResult StatusColleen E Arnulfo PA-WAYNEB BLOOD ORDERABLESFinal ResultPerforming OrganizationAddressCity/State/ZIP CodePhone Number [facility] [address] [place] [address], * Hemoglobin A1c (04/08/2025 9:56 AM EDT)ComponentValueRef RangeTest Method Analysis TimePerformed AtPathologist SignatureHEMOGLOBIN A1C5.14.4 - 5.6 % 04/08/2025 1:25 PM [facility] LABORATORYComment: ?ADA Guidelines ?Result ?HgbA1c ? Normal : ? less than 5.7 % ? Prediabetes : ?5.7 % ??to 6.4 % Diabetes : > 6.4 % ?Use with caution in patients with abnormal hemoglobin variants as ??the half-life of red blood cells and in vivo glycation rates are ??affected. EST. AVERAGE DDYRDKA510jt/dL04/08/2025 1:25 PM [facility] LABORATORYSpecimen (Source)Anatomical Location / LateralityCollection Method / VolumeCollection TimeReceived TimeBloodVenous blood / Gykeqks4804/08/2025 9:56 AM EDT1 10:14 AM EDT Narrative Authorizing ProviderResult TypeResult StatusCarin Mathur NUTRITION SERVICES MANAGER-CNPLAB BLOOD ORDERABLESFinal ResultPerforming OrganizationAddressCity/State/ZIP CodePhone Number [facility] [address] [place] [address], * (ABNORMAL) Protein, urine, 24 hour (02/19/2025 6:57 AM EDT)ComponentValueRef RangeTest MethodAnalysis TimePerformed AtPathologist SignatureURINE TOTAL LVGRDOF659(H)0 - 150 mg/24h02/19/2025 8:29 AM [facility]ORATORYLAB TOT VOLUME - 24H URINE2, 8:29 AM [facility] LABORATORYSpecimen (Source)Anatomical Location / Laterality Collection Method / VolumeCollection TimeReceived SvrjBigfk24/12/2025 6:57 AM EDT02/19/2025 7:44 AM EDT Narrative Authorizing ProviderResult TypeResult StatusLaura Deshpande DOURINE ORDERABLES Final ResultPerforming OrganizationAddressCity/State/ZIP CodePhone Number [facility] [address] [place] [address], * ECG 12 lead (02/18/2025 10:54 AM EDT)Specimen (Source)Anatomical Location / LateralityCollection Method / VolumeCollection TimeReceived Time02/18/2025 10:54 AM EDT Narrative [facility] - 02/18/2025 11:28 AM EDT Authorizing ProviderResult TypeResult StatusLaura Deshpande DOECG ORDERABLES Final ResultPerforming OrganizationAddressCity/State/ZIP CodePhone Number [facility] * LDH (02/18/2025 8:20 AM EDT)ComponentValueRef RangeTest MethodAnalysis Time Performed AtPathologist FoqtijtwnWBC896986 - 235 U/L02/18/2025 9:04 AM EDT [facility] LABORATORYSpecimen (Source)Anatomical Location / LateralityCollection Method / VolumeCollection TimeReceived TimeBloodVenous blood / UnknownVenipuncture / Bedopmo6902/18/2025 8:20 AM EDT02/18/2025 8:31 AM EDT Narrative Authorizing ProviderResult TypeResult StatusLaura Deshpande DOLAB BLOOD ORDERABLESFinal ResultPerforming OrganizationAddressCity/State/ZIP CodePhone Number [facility] [address] [place] [address], * Uric acid (02/18/2025 8:20 AM EDT)ComponentValueRef RangeTest MethodAnalysis TimePerformed AtPathologist SignatureURIC ACID3.12.6 - 7.2 mg/dL02/18/2025 9:04 AM [facility] LABORATORYSpecimen (Source)Anatomical Location / LateralityCollection Method / VolumeCollection TimeReceived Time BloodVenous blood / UnknownVenipuncture / Kvtlnpw8202/18/2025 8:20 AM EDT 02/18/2025 8:31 AM EDT Narrative Authorizing ProviderResult TypeResult StatusLaura Deshpande DOLAB BLOOD ORDERABLESFinal ResultPerforming OrganizationAddressCity/State/ZIP CodePhone Number [facility] [address] [place] [address], * (ABNORMAL) Urinalysis (02/17/2025 7:25 PM EDT)ComponentValueRef RangeTest MethodAnalysis TimePerformed AtPathologist SignatureCOLORYellowYellow 02/17/2025 8:09 PM [facility] LABORATORYTURBIDITYHazy(A)Clear 02/17/2025 8:09 PM [facility] LABORATORYSPECIFIC GRAVITY1.025 1.003 - 1.7423102/17/2025 8:09 PM [facility] LABORATORYNITRITE LfmmiyllEtukghhc71/10/2025 8:09 PM [facility] PH,URINE6.05.0 - 8. 8:09 PM [facility] LEUKOCYTE ESTERASELarge(A)Pijegzwe01/10/2025 8:09 PM [facility] FSTAXUKDCLHZBMRMXRvwojjdnAkruxdzt70/10/2025 8:09 PM [facility] LABORATORYKETONES (URINE)60 mg/dL(A)Dmiwgtyg94/10/2025 8:09 PM EDT [facility] LABORATORYUROBILINOGEN<1.1 eu/dL<1.1 eu/dL02/17/2025 8:09 PM [facility] LABORATORYBILIRUBIN (URINE)Negative Xfhtovqy60/10/2025 8:09 PM [facility] LABORATORYBLOOD/HGB IipysvdnJwomngyo21/10/2025 8:09 PM [facility] MUCOUSPresent(A)None02/17/2025 8:09 PM [facility] R.B.CELLS00 - 8:09 PM [facility] SQUAMOUS VSMXANLCBB06(H)0 - 8:09 PM [facility] LABORATORYW.B.CELLS57(H)0 - 8:09 PM [facility] LABORATORYGLUCOSE (URINE)WwwiousxVmehyufk13/10/2025 8:09 PM [facility] LABORATORYSpecimen (Source)Anatomical Location / Laterality Collection Method / VolumeCollection TimeReceived TimeUrineUrine specimen collection, clean catch / Xhggxpt9302/17/2025 7:25 PM EDT02/17/2025 7:54 PM EDT Narrative Authorizing ProviderResult TypeResult StatusJessnatalee [facility] ORDERABLESFinal ResultPerforming OrganizationAddressCity/State/ZIP CodePhone Number [facility] [address] [place] [address], * Urine Culture Urine, Clean Catch Midstream (02/17/2025 7:25 PM EDT)Component ValueRef RangeTest MethodAnalysis TimePerformed AtPathologist SignatureCULTURE ONSJRAN68-27,000 ORGANISMS/mL NORMAL UROGENITAL FLORA02/18/2025 4:53 PM EDT [facility] LABORATORYSpecimen (Source)Anatomical Location / LateralityCollection Method / VolumeCollection TimeReceived TimeUrineUrine specimen collection, clean catch / Blsajcx5102/17/2025 7:25 PM EDT02/17/2025 7:54 PM EDT Narrative [facility] - 02/18/2025 4:53 PM EDT Urine received without preservative - delays in transport may affect results. Interpret with caution and clinical correlation is recommended. Authorizing ProviderResult TypeResult StatusJejac Zaidi [facility] CENTERICROBIOLOGY - GENERAL ORDERABLESFinal ResultPerforming OrganizationAddressCity/State/ZIP CodePhone Number [facility] [address] [place] [address], * Pap Smear (04/02/2022 10:35 AM EDT)Specimen (Source)Anatomical Location / LateralityCollection Method / VolumeCollection TimeReceived Time04/02/2022 10:35 AM EDT1 10:37 AM EDT Narrative COPATH - 04/12/2022 12:17 PM EDT [facility] ? [address] [place] [address] ? [place] [address] ? Gynecologic Cytology Consultation ? Patient Name:DALIA BANKS:2000 (Age: 22)Gender:FTaken:04/02/2022eported:04/12/2022hysician(s):PHILLIP Pink ([phone])Copy To: Rec. #:[id number]: #[id number] Final Cytologic Interpretation ThinPrep Pap Test (Cervical): Satisfactory for evaluation. A transformation zone component is present. NEGATIVE FOR INTRAEPITHELIAL LESION OR MALIGNANCY. ?? jja/04/12/2022 Interpretation performed at [facility], [address] [place] [address], License number: [id number]. Electronically Signed Out By ?JORGE Olson(ASCP) Date of Last Menstrual Period: ? 02/28/22 Other Clinical Conditions: Z01.419 Diving Fisher exam wo/abn findings Source of Specimen ??ThinPrep Pap Test (Cervical) ? Thin Prep Pap (RISK CONTROL FIELD REPRESENTATIVE) Fee Code(s): ?? G0145 Authorizing ProviderResult TypeResult StatusCayla Olivas NUTRITION SERVICES MANAGER-[employer] EXPORT AGENT PATHOLOGY/CYTOLOGY ORDERABLESFinal ResultPerforming OrganizationAddress City/State/ZIP CodePhone Number [...] on adequate specimen collection. ? Gonorrhea DNA PCRNegativeNegative^Nehctjft06/12/2022 12:54 PM [facility] LABComment: ? Neisseria gonorrhoeae not detected by nucleic acid amplification. This does not exclude the possibility of infection because results are dependent on adequate specimen collection. ? Specimen (Source)Anatomical Location / LateralityCollection Method / Volume Collection TimeReceived XhlmTETX25/11/2022 6:33 PM EDT1 9:50 PM EDT Narrative Authorizing ProviderResult TypeResult StatusFlores Seaman MDMICROBIOLOGY - GENERAL ORDERABLESEdited Result - FinalPerforming OrganizationAddress City/State/ZIP CodePhone Number [facility] [address], [address] [place] [address] from Last 3 Months or Most Recently Relevant to Health Maintenance Insurance Advance Directives * Full Code (Latest Code Status on File) Date ActivatedDate InactivatedComments02/17/2025 6:35 PM02/22/2025 6:48 PM * Full Code Date ActivatedDate LikakmskxqpEfdkzgdj12/27/2021 4:55 PM06/08/2021 4:33 PM * Full Code Date ActivatedDate InactivatedComments01/07/2018 6:44 AM01/07/2018 2:17 PM * Full Code Date ActivatedDate InactivatedComments10/23/2016 11:27 AM10/24/2016 12:42 PM * Full Code Date ActivatedDate InactivatedComments08/01/2016 12:52 AM08/01/2016 4:47 PM Care Teams Team MemberRelationshipSpecialtyStart DateEnd Date Dru Rodriguez DO [address] [facility] [place] [address] [facility]01/01/17
--- OUTSIDE RECORDS SUMMARY | 2025-05-14 18:43 | XMS_ITS | Encounter Summary ---
Author Organization [facility] Address [address] [place] [address] Care Team Providers Care Stamp Collector Name Role Phone Dru Rodriguez DO Primary Care Provider [phone] Dru Rodriguez DO Unavailable [phone] Encounter Details DateTypeDepartmentCare Team (Latest Contact Info)Haegorqtscz92/03/2025Telephone [facility] [address] [place] [address] [place] [phone] Nicolasa Bailey, [place] Social History Tobacco UseTypesPacks/DayYears UsedDateSmoking Tobacco: NeverSmokeless [...] relatives?Twice a week03/11/2023How often do you attend sabianist or orthodoxy services?1 to 4 times per year03/11/2023o you belong to any clubs or organizations such as sabianist groups, unions, fraternal or athletic laura ups, or school groups?No03/11/2023How often do you attend meetings of the clubs or organizations you belong to?Never03/11/2023re you , , , , never , or living with a partner?Eikbbky8703/11/2023 AUDIT-CAnswerDate RecordedQ1: How often do you have a drink containing alcohol? Monthly or less03/11/2023Q2: How many drinks containing alcohol do you have on a typical day when you are drinking?3 or Q3: How often do you have six or more drinks on one occasion?Less than ljfmexb1103/11/2023Overall Financial Resource Strain (CARDIA)AnswerDate RecordedHow hard is it for you to pay for the very basics like food, housing, medical care, and heating?Somewhat hard 03/11/2023HQ-2AnswerDate RecordedPatient Health Questionnaire-2 Score0 03/25/2025[facility] [place] [facility] - Occupational Stress QuestionnaireAnswerDate [...] slept in ashelter (including now)?No03/11/2023Estimated Date of BjhfqileEnjwftuxQnu20/27/2026ased on last menstrual period of 10/30/2024Sex and Gender InformationValueDate RecordedSex Assigned at KgocfEejdab67/01/2023 1:10 PM EDTLegal HcqCbijci81/15/2023 6:51 PM EDTGender RmifluvbEccqdr59/01/2023 1:10 PM EDTSexual ZtbqcstahlfBrpgorzb21/01/2023 1:10 PM EDTdocumented as of this encounter Miscellaneous Notes * Telephone Encounter - Nicolasa Bailey MA - 05/12/2025 11:12 AM EST Pt called in stating she needs order for her NST/BPP that she is supposed to start at 28 weeks. Pt also stated she has not been called yet to schedule rhogam injection and she's going to be 28 weeks soon. Rhogam ANGELA resent and advised pt to call [facility] and orders faxed over to [facility] for NST and BPP. PVU documented in this encounter Plan of Treatment DateTypeDepartmentCare Team (Latest Contact Info)Rsgfbrvffij49/09/2025 8:50 AM ESTRoutine [facility] [address] [place] [address] [place] [phone] Katharine Cummins PA [address] [place] [address] [place] [address] NameTypePriorityAssociated DiagnosesOrder ScheduleUS biophysical profile w non stress testImagingRoutine Type 1 diabetes mellitus during , antepartum ([facility]) Expected: 05/12/2025 (Approximate), Expires: 11/10/2025documented as of this encounter Goals GoalPatient Goal TypeAssociated ProblemsRecent ProgressPatient-Stated?Author Reminders Care PlanOB RemindersNoOpen Scheduling, Backgrounddocumented as of this encounter Visit Diagnoses Diagnosis Type 1 diabetes mellitus during , antepartum ([facility]) documented in this encounter Additional Health Concerns Active ProblemsNoted DateDiagnosed DateOB Zazmgfbph62/24/2025 documented as of this encounter Care Teams Team MemberRelationshipSpecialtyStart DateEnd Date Dru Rodriguez DO [address] [address] PCP - GeneralFamily Medicine10/22/22 Dru Rodriguez DO [address] [address] PCP - Medical [place] Jsylqfxcxk50/1/2312documented as of this encounter
--- OUTSIDE RECORDS SUMMARY | 2025-05-14 18:43 | XMS_ITS | Clinical Summary ---
Author Organization [facility] Healthcare Address [address] [place] [address] Care Team Providers Care Glove Wrapper Name Role Phone Joaquín Dillon DO Primary Care Provider [phone] Joaquín Dillon DO Unavailable [phone] Allergies Active AllergyReactionsCriticalityNoted DateCommentsAmoxicillinAnaphylaxisHigh 05/23/2016 Mouth irritation UwtipfwfvadSmuiuxcfmjxTswx99/14/2016 Has since taken without reaction Medications MedicationSigDispense QuantityRefillsLast FilledStart DateEnd DateStatus Continuous Blood Gluc Transmit (Dexcom G6 transmitter) [facility] [place] Indications:Type 1 diabetes mellitus without complication (HCC)Inject 1 each under the skin every 3 (three) months. Use as instructed 1 each 3Active insulin glargine (Lantus SoloStar) 100 UNIT/ML pen Indications:Type 1 diabetes mellitus without complication (HCC)inject 22 units subcutaneously once daily 3 mL 4Active Insulin Disposable Pump (Omnipod 5 ZevH6M4 Pods Gen 5) misc Indications:Type 1 diabetes mellitus without complication (HCC)Inject 1 each under the skin every 3 (three) days CHANGE POD EVERY 3 DAYS DIRECTED 30 each 5Active HumaLOG 100 UNIT/ML solution Indications:Type 1 diabetes mellitus without complication (HCC)USE PER INSULIN PUMP INSTRUCTION MAX OF 80 UNITS DAILY 30 mL 5Active Vit w/Eq-Msdspagaj-IX (PNV PO) Take by mouthActive Acetone, Urine, Test (Ketone Test) strip check urine FOR ketones with blood glucose greater THAN 250 mg/dLActive aspirin 81 MG EC tablet Take 81 mg by mouth in the morning.5Active cholecalciferol (Vitamin D-3) 1.25 MG (36383 UT) capsule every week5Active Continuous Glucose Sensor (Dexcom G7 Sensor) misc USE WITH OMNIPOD 5 TO MANAGE BLOOD SUGARS AND CHANGE EVERY 10 DAYS01/21/2025 Active doxylamine (Unisom) 25 MG tablet Take 25 mg by mouth 4 (four) times a day as ixcmum0601/08/2025tive Baqsimi One Pack 3 MG/DOSE nasal powder Use to treat unresponsive mrwbzvcrvpus97/11/2025tive OneTouch Ultra Test test strip USE 1 STRIP TO CHECK GLUCOSE 4 TIMES DAILY10/14/2024tive ondansetron ODT (Zofran-ODT) 4 MG disintegrating tablet DISSOLVE 1 TABLET UNDER THE TONGUE EVERY 8 HOURS NEEDED FOR NAUSEA for up to 10 doses01/08/2025tive promethazine (Phenergan) 25 MG tablet Take 25 mg by mouth every 6 (six) hours if hfuujq1501/08/2025tive pyridoxine (Vitamin B-6) 100 MG tablet Take 100 mg by mouth in the morning.Active Active Problems ProblemNoted DateDiagnosed DateHypoglycemia associated with nbevlxlz34/30/2025 Mixed obsessional thoughts and acts4PTSD (post-traumatic stress disorder)09/06/2023Type 1 diabetes mellitus without pgwgnuzynrbkp12/28/2023 Assessment & Plan (03/11/2024 7:46 PM EDT): [...] if they have any problems or questions. Kaelyn Tobar is doing very well and encouraged [...] if they have any problems or questions. Kaelyn Tobar control is stable overall. , Will [...] if they have any problems or questions. Kaelyn Banks is doing very well and encouraged on [...] if they have any problems or questions. Kaelyn Banks is doing very well and encouraged on this. , Instructions given today include: Pump instructions and Dietary education. She is to keep working on counting carbs/portion sizesand will stay with current pump settings. Type 1 diabetes mellitus with hypoglycemia and without coma02/04/2023ulging lumbar disc11/08/2022hronic wmhxnmo4711/08/2022Lumbago with sciatica, left side 11/08/20221597Lpnstxnk91/01/2023iliary /01/2023eneralized anxiety nqcrvwyk33/25/2017Panic disorder without lvhvzetedut39/25/2017Celiac disease in pediatric pvqknvn2905/23/2016Mild intermittent nrseck4205/23/2016Diabetes type 1, mahxuotyaw26/18/2011Estimated Date of UfqsifegRtitzwejNuh25/27/2026ased on last menstrual period of 10/30/2024 Resolved Problems ProblemNoted DateDiagnosed DateResolved DateChronic ehqjesclkevzy39/22/2023 08/05/2023lood esesnlw42Hypoglycemia due to type 1 diabetes tllfqath27Other chronic painRight upper quadrant painiabetic ketoacidosis associated with type 1 diabetes iukgopvm80cute renal asktalwpxkzum32/11/2017 08/05/2023Mechanical breakdown of insulin pumpType 1 diabetes mellitus with ketoacidosis without coma Encounters DateTypeDepartmentCare TjdaKlnjmriyhlf34/03/2025Telephone [facility] [address] [address] Nicolasa Bailey MA 04/27/2025 9:40 AM ESTRoutine [facility] [address] [address] Bryant Cao, DO Hospital discharge follow-up; Second trimester ([facility]); 25 weeks gestation of ([facility]); UTI graakywr91/18/2025amboo flowsheet [facility] [address] [address] Bryant Cao, 04/26/2025Patient Outreach [facility] [address] [place] [address] Patria Woods LPN 04/26/2025Telephone [facility] [address] [address] Stella Webb MA 04/23/2025Telephone [facility] [address] [address] Cindi Jacinto, [facility] 04/15/2025linisync Result Encounter [facility] External Department Unsolicited Bryant Cao, 04/14/2025bstract [facility] [address] [address] Bryant Cao, 04/08/2025 1:50 PM EDTRoutine [facility] [address] [place] [address] Katharine Cummins PA Second trimester ([facility]); 22 weeks gestation of ([facility]); Yeast dtxhtapvr40/30/2025Patient Outreach [facility] [address] [place] [phone] Aline Dudley, RN 03/30/2025[facility] [address] [place] [phone] Kristopher Calvo, OD 03/25/2025 8:45 AM EDTOffice Visit [facility] [address] [place] [phone] Joaquín Dillon, DO Routine general medical examination at a health care facility (Primary Dx); Generalized anxiety disorder; Celiac disease in pediatric patient ([facility]); Mild intermittent asthma, unspecified whether complicated ([facility])03/25/2025Orders Only [facility] [address] [place] [phone] Joaquín Dillon, DO 03/25/2025Telephone [facility] [address] [place] [phone] Lesa Boss LPN 03/25/2025amboo flowsheet [facility] [address] [place] [address] Joaquín Dillon, DO 03/25/20254997Qfiiak07/14/2025 8:50 AM EDTRoutine [facility] [place] [facility] [place] [address] Bryant Cao, DO Second trimester ([facility]); 20 weeks gestation of ([facility]); Type 1 diabetes mellitus during , antepartum ([facility])03/23/2025 Abstract [facility] [place] [facility] [place] [address] Bryant Cao, DO 03/23/2025ambioana flowsheet [facility] [place] [facility] [facility] [address] [address] Bryant Cao, DO 03/20/2025linisync Result Encounter NOMS External Department Unsolicited Bryant Cao, DO 03/08/2025Patient Outreach [facility] [address] [place] [address] Aline Dudley RN 02/24/2025Patient Outreach [facility] [address] [place] [address] Patria Woods, [employer] 02/23/2025Telephone [facility] [address] [address] Stella Webb MA 02/23/2025Telephone [facility] [address] [address] Stella Webb MA Error (VOID this visit)02/23/2025Orders Only [facility] [address] [address] Aline Fernández, [employer]LE[employer] COACH 02/17/2025Telephone [facility] [address] [address] Katja Swanson, [facility] 02/16/2025 2:00 PM EDTRoutine [facility] [address] [place] [address] Katharine Cummins PA 15 weeks gestation of ([facility]); Second trimester ([facility]); Screening, , for anatomic survey ([facility]); Exposure to STD; Vaginal discharge; Well woman exam with routine gynecological exam02/16/2025linisync Result Encounter NOM[facility] External Department Unsolicited Katharine Cummins PA 02/16/2025External Result Encounter [facility] External Department Unsolicited Katharine Cummins PA 02/16/2025amboo flowsheet [facility] [address] [address] Katharine Cummins PA from Last 3 Months Immunizations ImmunizationAdministration DatesNext RrjQQT191762VNeB37/23/2004DTaP, Sqlyxuaupyt19/13/2006,11/24/2002,2001,2001HPV, Quadrivalent 08/27/2013,08/21/2013,04/06/2013,03/02/2013Hep B, Adolescent or Pediatric 11/24/2002,2001,2001HiB, fjqukonslsc16/17/2003,2001,2001 Hib (PRP-T)03/02/2004IPV1,12/20/2005,2001Influenza, injectable, flzhnuhyqutz98/26/2021Influenza, injectable, quadrivalent, preservative free 06/12/2023,05/11/2022Influenza, seasonal, injectable, preservative free 03/17/2025,03/18/2024MMR1,12/20/2005,11/24/2002Meningococcal MCV4P 01/22/2018,03/02/2013PPD Test06/12/2023,06/05/2023,05/18/2022,05/11/2022 Pneumococcal Conjugate PCV 7008/05/2001Polio, Yahoadlefhd01/17/2003,2001 Tdap107/31/2022,03/02/20135385Ggjsiwgxw83/21/2023,03/02/2013,03/18/2008,12/20/2005 Family History Medical HistoryRelationNameCommentsArthritisFatherJohn SeamonAsthmaFatherJohn SeamonStrokeMaternal GrandmotherCynthia HicksDrug abuseMotherKristy SeamonCancer OtherStrokeOtherStrokePaternal GrandfatherDiabetesSister 2Jozlynn SeamonRelation HnaeHoputmRqrdqmyjGyiruoge3MgsdduAtmr SeamonAliveMaternal GrandmotherCynthia HicksMotherKristy SeamonDeceasedOtherHalf BrotherPaternal GrandfatherSister 1x2 Sister 2Jozlynn Seamon Social History Tobacco UseTypesPacks/DayYears UsedDateSmoking Tobacco: NeverSmokeless [...] relatives?Twice a week03/11/2023How often do you attend latter-day or adventist services?1 to 4 times per year03/11/2023o you belong to any clubs or organizations such as latter-day groups, unions, fraternal or athletic laura ups, or school groups?No03/11/2023How often do you attend meetings of the clubs or organizations you belong to?Never03/11/2023re you , , , , never , or living with a partner?Qlzcehm2903/11/2023 AUDIT-CAnswerDate RecordedQ1: How often do you have a drink containing alcohol? Monthly or less03/11/2023Q2: How many drinks containing alcohol do you have on a typical day when you are drinking?3 or Q3: How often do you have six or more drinks on one occasion?Less than bqlvwab8703/11/2023Overall Financial Resource Strain (CARDIA)AnswerDate RecordedHow hard is it for you to pay for the very basics like food, housing, medical care, and heating?Somewhat hard 03/11/2023HQ-2AnswerDate RecordedPatient Health Questionnaire-2 Score0 03/25/2025[facility] [place] [facility] - Occupational Stress QuestionnaireAnswerDate [...] steady place to sleep or slept in [facility] (including now)?No03/11/2023Estimated Date of YranpuucViwqttvoGkx13/27/2026ased on last menstrual period of 10/30/2024Sex and Gender InformationValueDate RecordedSex Assigned at SjslfFvoktw94/01/2023 1:10 PM EDTLegal JjtXrocuk98/15/2023 6:51 PM EDTGender DivwglbjLmvpdx41/01/2023 1:10 PM EDTSexual EuotidxyxwcAxmybfut80/01/2023 1:10 PM EDT Last Filed Vital Signs Vital SignReadingTime TakenCommentsBlood Qdnholvz289/5811 9:55 AM EST Uneln707303/25/2025 8:46 AM OTVCgvtzbkoznr09 ??C (96.8 ??F)03/25/2025 8:46 AM EDT Respiratory Rate--Oxygen Bxfhekddro55%03/25/2025 8:46 AM EDTInhaled Oxygen Concentration--Euvabq01.5 kg (162 lb)04/27/2025 9:55 AM UWINzbalp785.3 cm (4' 10 )03/25/2025 8:46 AM EDTBody Mass Index33.8603/25/2025 8:46 AM EDT Plan of Treatment DateTypeDepartmentCare Team (Latest Contact Info)Kkwsxwlanmd12/09/2025 8:50 AM ESTRoutine [facility] [address] [address] Katharine Cummins PA [address] [place] [address] Health MaintenanceDue DateLast DoneCommentsPneumococcal Vaccine: Pediatrics (0 to 5 Years) and At-Risk Patients (6 to 64 Years) (1 of 2 - PCV)02/12/2020 2001COVID-19 Vaccine ( season)507/11/2021, 03/21/2021, 1Diabetes: Hemoglobin A1C61, 12/15/2024, 12/15/2024, Additional history existsDiabetes: Urine Protein Dopwdkebp54/20/45730610/27/2024, 11/11/2023, 11/11/2023, Additional history existsDiabetes: Retinopathy Screening 71, 06/30/2019Influenza NnlxalrGvhxoxduj78/08/2025, 03/18/2024, 06/12/2023, Additional history exists Goals GoalPatient Goal TypeAssociated ProblemsRecent ProgressPatient-Stated?Author Reminders Care PlanOB RemindersNoOpen Scheduling, Background Procedures Procedure NamePriorityDate/TimeAssociated DiagnosisCommentsURINARY TRACT INFECTION (HTRX)Ujhqkkd5704/27/2025 12:15 PM EST POCT URINALYSIS PVPVVNEGFkjnphw90/18/2025 9:55 AM EST 25 weeks gestation of ([facility]) US OB EEVGSHPS75/06/2025 8:24 AM EST POCT URINALYSIS MQARUFQZMbdqnum30/30/2025 2:07 PM EDT Second trimester ([facility]) ALPHA FETOPROTEIN, TUMOR RRHZJZUlirrlf71/30/2025 10:01 AM EDT DIABETIC RETINOPATHY SCREENING - OU - BOTH ZDTYQynsyth70/21/2025 12:15 PM EDT CULTURE, URINE, AIXSCYTRqqegbh04/15/2025 8:04 AM EDT Missed menses POCT URINALYSIS NXQSKGWOAyudrpi66/14/2025 9:03 AM EDT 20 weeks gestation of ([facility]) URINE CULTURE, WSEWNVMCgwvmzw74/11/2025 7:28 AM EDT [facility] URINE MICROSCOPIC DWNEBymjkjf35/11/2025 7:28 AM EDT FZYVRKIUNqvbubd91/11/2025 7:28 AM EDT [facility] UA (CLEAN/CATCH) CLERK SPECIALIST/MICRO IF IND.Wpauhum0503/20/2025 7:28 AM EDT RECURRENT VAGINITIS (HTRX)Cnbpprk9702/16/2025 3:21 PM EDT POCT URINALYSIS XFTIMWPQAtbqgzj20/09/2025 2:17 PM EDT 15 weeks gestation of ([facility]) Second trimester ([facility]) IGP,APTIMA HPV,AGE CVVQXglltnk85/09/2025 2:01 PM EDT PAP DJGGMMxqjgjp85/09/2025 12:00 AM EDTHEMOGLOBIN P4XDxuopri53/08/2025 10:24 AM EDTMICROALBUMIN / CREATININE URINE GYQNEFcnonuv51/20/2025 from Last 3 Months or Most Recently Relevant to Health Maintenance Results * URINARY TRACT INFECTION (HTRX) (04/27/2025 12:15 PM EST)ComponentValueRef RangeTest MethodAnalysis TimePerformed AtPathologist SignatureACINETOBACTER BDMUZJXR690.961 - 24.689 ppm04/28/2025 6:33 AM ESTHealthTrackRx at [facility] ACINETOBACTER BAUMANIINot Iwsyuope13.961 - 24.689 ppm04/28/2025 6:33 AM EST [facility] at LabPortCITROBACTER RCRHRRBN547.000 - 32.015 ppm04/28/2025 6:33 AM ESTHealthTrackRx at LabPortCITROBACTER FREUNDIINot Slarscfx42.000 - 32.015 ppm04/28/2025 6:33 AM ESTHealthTrackRx at LabPortENTEROBACTER AEROGENES, SCEEKDJ724.000 - 32.290 ppm04/28/2025 6:33 AM ESTHealthTrackRx at LabPortENTEROBACTER AEROGENES, CLOACAENot Stnmwurs71.000 - 32.290 ppm 04/28/2025 6:33 AM ESTHealthTrackRx at LabPortENTEROCOCCUS FAECALIS, FAECIUM0 26.000 - 33.043 ppm04/28/2025 6:33 AM ESTHealthTrackRx at LabPortENTEROCOCCUS FAECALIS, FAECIUMNot Ybcpcwqr34.000 - 33.043 ppm04/28/2025 6:33 AM EST [facility] at LabPortESCHERICHIA YTUI168.000 - 28.500 ppm04/28/2025 6:33 AM ESTHealthTrackRx at LabPortESCHERICHIA COLINot Vbfhtfea26.000 - 28.500 ppm 04/28/2025 6:33 AM ESTHealthTrackRx at LabPortKLEBSIELLA PNEUMONIAE, OXYTOCA0 23.000 - 31.865 ppm04/28/2025 6:33 AM ESTHealthTrackRx at LabPortKLEBSIELLA PNEUMONIAE, OXYTOCANot Mzhhtkue74.000 - 31.865 ppm04/28/2025 6:33 AM EST [facility] at LabPortMORGANELLA OMAMFHIM823.961 - 24.689 ppm04/28/2025 6:33 AM ESTHealthTrackRx at LabPortMORGANELLA MORGANIINot Ucbxhopa40.961 - 24.689 ppm04/28/2025 6:33 AM ESTHealthTrackRx at LabPortPROTEUS MIRABILIS, VULGARIS0 23.000 - 28.500 ppm04/28/2025 6:33 AM ESTHealthTrackRx at LabPortPROTEUS MIRABILIS, VULGARISNot Zkvnnmne27.000 - 28.500 ppm04/28/2025 6:33 AM EST [facility] at LabPortPSEUDOMONAS CSFVPLSEKB111.000 - 31.801 ppm04/28/2025 6:33 AM ESTHealthTrackRx at LabPortPSEUDOMONAS AERUGINOSANot Xtjfkukt65.000 - 31.801 ppm04/28/2025 6:33 AM ESTHealthTrackRx at LabPortSTAPHYLOCOCCUS AUREUS0 26.000 - 31.595 ppm04/28/2025 6:33 AM ESTHealthTrackRx at [facility] STAPHYLOCOCCUS AUREUSNot Vvsryaik33.000 - 31.595 ppm04/28/2025 6:33 AM EST [facility] at LabPortSTREPTOCOCCUS AGALACTIAE (GROUP B STREP)026.000 - 32.435 ppm04/28/2025 6:33 AM ESTHealthTrackRx at LabPortSTREPTOCOCCUS AGALACTIAE (GROUP B STREP)Not Wnzyfpfs77.000 - 32.435 ppm04/28/2025 6:33 AM ESTHealthTrackRx at LabPortCANDIDA ALBICANS, PARAPSILOSIS, NOKWNFJMDK538.000 - 30.347 ppm04/28/2025 6:33 AM ESTHealthTrackRx at LabPortCANDIDA ALBICANS, PARAPSILOSIS, TROPICALISNot Cvpbdpqh26.000 - 30.347 ppm04/28/2025 6:33 AM EST [facility]PortCANDIDA MRUCCJGR138.000 - 31.618 ppm04/28/2025 6:33 AM ESTHealthTrackRx at LabPortCANDIDA GLABRATANot Axttufml15.000 - 31.618 ppm 04/28/2025 6:33 AM ESTHealthTrackRx at LabPortCANDIDA HNLBQB044.000 - 30.873 ppm04/28/2025 6:33 AM ESTHealthTrackRx at LabPortCANDIDA KRUSEINot Detected 23.000 - 30.873 ppm04/28/2025 6:33 AM ESTHealthTrackRx at LabPortSERRATIA RCAOMRWFGV127.000 - 31.581 ppm04/28/2025 6:33 AM ESTHealth[facility] SERRATIA MARCESCENSNot Iiicefbf02.000 - 31.581 ppm04/28/2025 6:33 AM EST [facility] at LabPortSTREPTOCOCCUS PYOGENES (GROUP A STREP)019.961 - 24.689 ppm04/28/2025 6:33 AM ESTHealthTrackRx at LabPortSTREPTOCOCCUS PYOGENES (GROUP A STREP)Not Ggxdexbn22.961 - 24.689 ppm04/28/2025 6:33 AM ESTHealthTrackRx at LabPortSTAPHYLOCOCCUS EPIDERMIDIS, HAEMOLYTICUS, LUGDUNENSIS, SAPROPHYTICUS (BAUSL370.961 - 24.689 ppm04/28/2025 6:33 AM ESTHealth[facility] STAPHYLOCOCCUS EPIDERMIDIS, HAEMOLYTICUS, LUGDUNENSIS, SAPROPHYTICUS (URINANot Ohphijwe86.961 - 24.689 ppm04/28/2025 6:33 AM ESTHealth[facility] at [facility] STAPHYLOCOCCUS EPIDERMIDIS, HAEMOLYTICUS, LUGDUNENSIS, SAPROPHYTICUS (URINA0 19.961 - 24.689 ppm04/28/2025 6:33 AM EST[facility] STAPHYLOCOCCUS EPIDERMIDIS, HAEMOLYTICUS, LUGDUNENSIS, SAPROPHYTICUS (URINANot Jprtmotn96.961 - 24.689 ppm04/28/2025 6:33 AM ESTHealth[facility]Rx [facility] Specimen (Source)Anatomical Location / LateralityCollection Method / Volume Collection TimeReceived InglIykux63/18/2025 12:15 PM EST04/28/2025 1:31 AM EST Narrative Authorizing ProviderResult TypeResult StatusCoresathish Cao DOLAB BLOOD ORDERABLES Final ResultPerforming OrganizationAddressCity/State/ZIP CodePhone Number [facility] [address] [place] [address] * (ABNORMAL) POCT urinalysis dipstick manually resulted (04/27/2025 9:55 AM EST) Only the most recent of4 resultswithin the time period is included. ComponentValueRef RangeTest MethodAnalysis TimePerformed AtPathologist Signature Color, UAYellowClarity, UAClearGlucose, UA3+Negative - 2000(110) ++++ mg/dL Bilirubin, UANegativeNegative - 4(70) +++ mg/dLKetones, UANegativeNegative - 160(16) ++++ mg/dLSpec Grav, UA1.0101 - 1.03Blood, UAPositiveNegative - 50 Guy/mcLpH, UA6.55 - 9Protein, UATraceNegative - 2000(20) ++++ mg/dLUrobilinogen, UA1.00.2 - 12 mg/dLLeukocytes, UA2+Negative - 500+++ Danny/mcLNitrite, UANegative Negative - PositiveSpecimen (Source)Anatomical Location / LateralityCollection Method / VolumeCollection TimeReceived CzmkVkxqn39/18/2025 9:55 AM EST Narrative Authorizing ProviderResult TypeResult StatusBryant Cao DOPOINT OF CARE TEST ENTER/EDIT ORDERABLESFinal Result * US OB PLACENTA (04/15/2025 8:24 AM EST)Anatomical RegionLateralityModality OtherSpecimen (Source)Anatomical Location / LateralityCollection Method / VolumeCollection TimeReceived Time04/15/2025 8:24 AM EST Narrative 04/15/2025 8:27 AM EST [facility] ?[address] ? [place] [address] ? Ultrasound Report ? Signed ? Patient: DARREN,KIERSTAN P M ?MR#: [id number] ?? : 2000 ?Acct:[id number] ?? Age/Sex: 25 / F ?ADM Date: ?? Loc: [facility] ??250-1 ? Attending Dr: Bryant Cao D.O. ? Ordering Physician: Bryant Cao D.O. ?? Date of Service: 04/14/25 ?? Procedure(s): US OB placenta ?? Accession Number(s): [id number] ? cc: Bryant Cao D.O.; JOAQUÍN DILLON ? [facility] ? [address] ? [place] [address] ? Patient Name: ?? KAELYN Singh DARREN ? MRN: [facility]:[id number] ? date: 2000 ?Sex: F ?? Assigned Patient Location: [facility] ?? Current Patient Location: ? Accession/Order Number: [id number] ?? Exam Date: 04/14/2025 ??13:27 ?Report Date: 04/15/2025 ??08:24 ? At the request of: ?? BRYANT ??KILEY ??DO ? Procedure: ??US OB placenta ? ULTRASOUND OB PLACENTA ? CLINICAL DATA: patient in [facility] ? COMPARISON: None ? There is a single live intrauterine gestation in cephalic presentation. ??The ?? reported gestational age is 23 weeks 5 days. ??There is cardiac and ?? somatic activity with heart rate of 136 bpm. ??Amniotic fluid volume is ?? subjectively normal. ??There is a posterior placenta which is normal in ?? appearance. ??There is no evidence of abruption or previa. ??The placental cord ?? insertion is seen and it is approximately 2.9 cm from the edge of the ?? placenta. ? US/US OB placenta ?? IMPRESSION: ? POSTERIOR PLACENTA WITH NO EVIDENCE OF ABRUPTION. ? Impression dictated by: Angela Lo M.D. ??04/15/2025 8:24 AM ? Dictation Location: RADIO-PC-02 ? Electronically authenticated by: [id number] ??Y ?? Date: 04/15/2025 ??08:24 ? Dictated By: ?Angela Lo M.D. ? Signed By: ?04/15/25 08 ? DD/ 0824 ? TD/TT: ? Vice President Industrial Relations: Procedure Note Radiology, Radiologist, MD - 04/15/[address] [address] Ultrasound Report Signed Patient: KAELYN BANKS MMR#: [id number] : 2000Acct:[id number] Age/Sex: 25 / FADM Date: Loc: [facility] 250-[address]: Bryant Cao D.O. Ordering Physician: Bryant Cao D.O. Date of Service: 04/14/25 Procedure(s): US OB placenta Accession Number(s): [id number] cc: Bryant Cao D.O.; JOAQUÍN DILLON [place] [address] Patient Name: KAELYN BANKS MRN: [id number] date: 2000 Sex: F Assigned Patient Location: [facility] Current Patient Location: Accession/Order Number: [id number] Exam Date: 04/14/2025 13:27 Report Date: 04/15/2025 08:24 At the request of: BRYANT CAO DO Procedure: US OB placenta ULTRASOUND OB PLACENTA CLINICAL DATA: patient in [facility] COMPARISON: None There is a single live intrauterine gestation in cephalic presentation.The reported gestational age is 23 weeks 5 days. There is cardiac and somatic activity with heart rate of 136 bpm. Amniotic fluid volume is subjectively normal. There is a posterior placenta which is normal in appearance. There is no evidence of abruption or previa. The placentalcord insertion is seen and it is approximately 2.9 cm from the edge of the placenta. US/US OB placenta IMPRESSION: POSTERIOR PLACENTA WITH NO EVIDENCE OF ABRUPTION. Impression dictated by: Angela Lo M.D. 04/15/2025 8:24 AM Dictation Location: [place] [address] Electronically authenticated by: [id number] Y Date: 508:24 Dictated By: Angela Lo M.D. Signed By:04/15/25826 DD/ 3 TD/TT: Vice President Industrial Relations: Authorizing ProviderResult TypeResult StatusCorey Kiley DOCLINISYNC IMAGINGFinal Result * (ABNORMAL) AFP tumor marker (04/08/2025 10:01 AM EDT)ComponentValueRef Range Test MethodAnalysis TimePerformed AtPathologist SignatureALPHA [id number] (H)<=9.9 ng/mLPROMEDICAComment: ?? PERFORMED AT [facility] [address],[place] [address] Specimen (Source)Anatomical Location / LateralityCollection Method / Volume Collection TimeReceived Time04/08/2025 10:01 AM EDT1 12:35 PM EDT Narrative Authorizing ProviderResult TypeResult StatusAmy Maria G PALAB BLOOD ORDERABLES Final ResultPerforming OrganizationAddressCity/State/ZIP CodePhone Number [place] * (ABNORMAL) Diabetic Retinopathy Screening - OU - Both Eyes (03/30/2025 12:15 PM EDT)Anatomical RegionLateralityModalityHeadOther Narrative Authorizing ProviderResult TypeResult StatusThomas W Saguache ODOPHTH PHOTOGRAPHY Final Result * Urine culture (03/24/2025 8:04 AM EDT)Specimen (Source)Anatomical Location / LateralityCollection Method / VolumeCollection TimeReceived TimeUrineUrine specimen obtained by clean catch procedure / Unknown Narrative Authorizing ProviderResult TypeResult StatusCorey [facility] MICROBIOLOGY - GENERAL ORDERABLESFinal ResultPerforming OrganizationAddressCity/State/ZIP Code Phone Number EXTERNAL LAB * URINE CULTURE, ROUTINE (03/20/2025 7:28 AM EDT)ComponentValueRef RangeTest MethodAnalysis TimePerformed AtPathologist SignatureURINE CULTURE, ROUTINE ??Urine Culture, Routine TBHURINE CULTURE, ROUTINEMixed urogenital floraTBHURINE CULTURE, ROUTINELess than 10,000 colonies/mLTBHURINE CULTURE, ROUTINEPerformed at: [facility] [place] LabFormerly Oakwood Southshore HospitalTBHURINE CULTURE, [id number] [place], [place] [id number] CULTURE, ROUTINELab Director: Chaka Almanzar PhD, Phone: [phone] Specimen (Source)Anatomical Location / LateralityCollection Method / Volume Collection TimeReceived Time03/20/2025 7:28 AM EDT10/04/2025 7:35 AM EDT Narrative [facility] - 03/22/2025 12:10 AM EDT Authorizing ProviderResult TypeResult StatusCorey Kiley DOLAB BLOOD ORDERABLES Final ResultPerforming OrganizationAddressCity/State/ZIP CodePhone Number [facility] * AMNISURE (03/20/2025 7:28 AM EDT)ComponentValueRef RangeTest MethodAnalysis TimePerformed AtPathologist SignatureTBH AMNISURENEGATIVENEGATIVETBHSpecimen (Source)Anatomical Location / LateralityCollection Method / VolumeCollection TimeReceived Time03/20/2025 7:28 AM EDT1 7:35 AM EDT [facility]ative [facility] 03/20[facility] 7:48 AM EDT Authorizing ProviderResult [...] 7:28 AM EDT1 7:35 AM EDT Narrative [facility] - 03/20/2025 7:55 AM EDT Authorizing ProviderResult TypeResult StatusCorey Kiley DOCLINISYNCFinal Result Performing OrganizationAddressCity/State/ZIP CodePhone Number [facility] * (ABNORMAL) [facility] UA (CLEAN/CATCH) CLERK SPECIALIST/MICRO IF IND. (03/20/2025 7:28 AM EDT) ComponentValueRef RangeTest MethodAnalysis TimePerformed AtPathologist SignatureCOLOR URINELT. YELLOWYELLOWTBHCLARITY URINECLEARCLEARTBHSPECIFIC GRAVITY URINE1.0251.005 - 1.025TBHPH URINE6.05.0 - 9.0TBHPROTEIN URINENEGATIVE NEG/TRACE mg/dLTBHGLUCOSE URINE UANEGATIVENEGATIVE mg/dLTBHBILIRUBIN URINE NEGATIVENEGATIVETBHKETONES URINENEGATIVENEGATIVE mg/dLTBHBLOOD URINENEGATIVE NEGATIVETBHNITRITE URINENEGATIVENEGATIVETBHUROBILINOGEN URINE1.00.2 - 1.0 EU/dLTBHLEUKOCYTE ESTERASE URINELARGE(A)NEGATIVETBHURINE MICROSCOPIC INDICATED YESTBHSpecimen (Source)Anatomical Location / LateralityCollection Method / VolumeCollection TimeReceived Time03/20/2025 7:28 AM EDT1 7:35 AM EDT Narrative [facility] - 03/20/2025 7:55 AM EDT Authorizing ProviderResult TypeResult StatusCorey Kiley DOCLINISYNCFinal Result Performing OrganizationAddressCity/State/ZIP CodePhone Number [facility] * (ABNORMAL) RECURRENT VAGINITIS (HTRX) (02/16/2025 3:21 PM EDT)ComponentValue Ref RangeTest MethodAnalysis TimePerformed AtPathologist SignatureATOPOBIUM HXIFTQC58.792(A).961 - 24.689 ppm02/17/2025 6:29 AM EDTHealthTrackRx at LabPortATOPOBIUM VAGINAEDetected(A)19.961 - 24.689 ppm02/17/2025 6:29 AM EDT [facility] at LabPortBVAB 2,3 (BACTERIAL VAGINOSIS ASSOCIATED BACTERIA 2, 3); MOBILUNCUS SPP13.669(A)19.961 - 24.689 ppm02/17/2025 6:29 AM EDT [facility] at LabPortBVAB 2,3 (BACTERIAL VAGINOSIS ASSOCIATED BACTERIA 2, 3); MOBILUNCUS SPPDetected(A)19.961 - 24.689 ppm02/17/2025 6:29 AM EDT [facility] at LabPortCANDIDA ALBICANS, PARAPSILOSIS, ZDWQIOWCHE17.36(A) 23.000 - 30.347 ppm02/17/2025 6:29 AM EDTHealthTrackRx at LabPortCANDIDA ALBICANS, PARAPSILOSIS, TROPICALISDetected(A)23.000 - 30.347 ppm02/17/2025 6:29 AM EDTHealthTrackRx at LabPortCANDIDA YJGDQBBB621.000 - 31.618 ppm 02/17/2025 6:29 AM EDTHealthTrackRx at LabPortCANDIDA GLABRATANot Detected 23.000 - 31.618 ppm02/17/2025 6:29 AM EDTHealthTrackRx at LabPortCANDIDA PGAYMO167.000 - 30.873 ppm02/17/2025 6:29 AM EDTHealthTrackRx at LabPort ESTEFANÍA KRUSEINot Xukzaoku85.000 - 30.873 ppm02/17/2025 6:29 AM EDT [facility] at LabPortCHLAMYDIA FXOMXRYJRCN360.000 - 31.586 ppm02/17/2025 6:29 AM EDTHealthTrackRx at LabPortCHLAMYDIA TRACHOMATISNot Xxmbojyk28.000 - 31.586 ppm02/17/2025 6:29 AM EDTHealthTrackRx at LabPortGARDNERELLA VAGINALIS 29.985(A)19.961 - 24.689 ppm02/17/2025 6:29 AM EDTHealthTrackRx at LabPort GARDNERELLA VAGINALISDetected(A)19.961 - 24.689 ppm02/17/2025 6:29 AM EDT [facility] at LabPortMEGASPHAERA (TYPES 1, 2)14.74(A)19.961 - 24.689 ppm 02/17/2025 6:29 AM EDTHealthTrackRx at LabPortMEGASPHAERA (TYPES 1, 2)Detected (A)19.961 - 24.689 ppm02/17/2025 6:29 AM EDTHealthTrackRx at [facility] HealthcareNEISSERIA LAXZQAAPSOZ972.000 - 32.587 ppm09/03/2025 6:29 AM EDTHealthTrackRx at [facility] NEISSERIA GONORRHOEAENot Bskdlvtg16.000 - 32.587 ppm02/17/2025 6:29 AM EDT [facility] HealthcareTRICHOMONAS CAQXKRCCT510.000 - 31.995 ppm02/17/2025 6:29 AM EDTHealthTrackRx at [facility] HealthcareTRICHOMONAS VAGINALISNot Letdpjgt16.000 - 31.995 ppm02/17/2025 6:29 AM EDTHealthTrackRx at [facility] HealthcareMYCOPLASMA GENITALIUM0 19.961 - 24.689 ppm02/17/2025 6:29 AM EDTHealthTrackRx at [facility] HealthcareMYCOPLASMA GENITALIUMNot Lypaqlbk20.961 - 24.689 ppm02/17/2025 6:29 AM EDTHealthTrackRx at [facility], ; MEFA20.721(A)23.000 - 27.500 ppm02/17/2025 6:29 AM EDT [facility], C; MEFADetected(A)23.000 - 27.500 ppm02/17/2025 6:29 AM EDTHealthTrackRx at [facility] B, TET M18.259(A)23.000 - 27.500 ppm 02/17/2025 6:29 AM EDTHealthTrackRx at [facility] B, TET MDetected(A)23.000 - 27.500 ppm02/17/2025 6:29 AM EDTHealthTrackRx at [facility] HealthcareSpecunc health appalachiann (Source) Anatomical Location / LateralityCollection Method / VolumeCollection Time Received DjcsGgcytb47/09/2025 3:21 PM EDT02/17/2025 1:43 AM EDT Narrative Authorizing ProviderResult TypeResult StatusAmy Maria G JERNIGAN BLOOD ORDERABLES Final ResultPerforming OrganizationAddressCity/State/ZIP CodePhone Number [facility] at [facility] [address] [address] * IGP,APTIMA HPV,AGE GDLN (02/16/2025 2:01 PM EDT)ComponentValueRef RangeTest MethodAnalysis TimePerformed AtPathologist SignatureAGE GDLN ACOG TESTINGNote. TBHComment: ?? TESTS ? RESULT ??FLAG ??UNITS ?REF RANGE ??LAB ?? Clinician Provided Cytology Information ?? Source.............Endocervix ?? No. of containers..01 ThinPrep Vial Age Algo ACOG Marita... ??- ? 01 ?FLAG LEGEND: ?L-Low Normal,H-High Normal,LL-Alert Low,HH-Alert High <-Panic Low,>-Panic High,A-Abnormal,AA-Critical Abnormal Performed at: 01 =G ?[facility] ?? [address] [place], [place] ??[phone] ?? Maryjane Up MD, IGP, RFX APTIMA HPV ASCUNote.TBHComment: ?? TESTS ? RESULT ??FLAG ??UNITS ?REF RANGE ??LAB DIAGNOSIS: ?02 ?? NEGATIVE FOR INTRAEPITHELIAL LESION OR MALIGNANCY. Specimen adequacy: ?02 ?? Satisfactory for evaluation. No endocervical component is identified. Performed by: ? 02 ?? Clarita Somers, Industrial Maintenance Repairer Helper (ASCP) . ? 02 Note: ? Note [...] High,A-Abnormal,AA-Critical Abnormal Performed at: 02 WB ?[facility] ?? [address] [place], [place] ??[phone] ?? Maryjane Up MD, Performed at: ??=G - [facility] [address], [place] ??[id number] Technical Sales Representative: Maryjane Up MD, Phone: ??[phone] Performed at: ??WB - [facility] [address], [place] ??[id number] Technical Sales Representative: Maryjane Up MD, Phone: ??[phone] Specimen (Source)Anatomical Location / LateralityCollection Method / Volume Collection TimeReceived Time02/16/2025 2:01 PM EDT02/16/2025 7:54 PM EDT Narrative [facility] - 02/19/2025 1:08 PM EDT [facility] Authorizing ProviderResult TypeResult StatusAmy Maria G JERNIGAN BLOOD ORDERABLES Final ResultPerforming OrganizationAddressCity/State/ZIP CodePhone Number CLINFILIBERTO [facility] * Pap Smear (02/16/2025 12:00 AM [...] specimen obtained by clean catch procedure / Wwsexmq2110/27/2024 Narrative Authorizing ProviderResult TypeResult StatusFirelands Physician GroupLAB URINE ORDERABLESFinal Result from Last 3 Months or Most Recently Relevant to Health Maintenance Additional Health Concerns Active ProblemsNoted DateDiagnosed DateOB Jmfbemhyw03/24/2025 Insurance Care Teams Team MemberRelationshipSpecialtyStart DateEnd Date Joaquín Dillon, DO [address] [facility] [address] [place] [address] [facility] - [facility]22/22 Joaquín Dillon DO [address] [facility] [address] [place] [address] PCP - Medical [facility]03/10/2312
--- NOTE | 2025-05-14 18:44 | US_ITS ---
[place] [id number] Patient Name: KAELYN BANKS MRN: [id number] date: 2000 Sex: F Assigned Patient Location: US Current Patient Location: [place] Accession/Order Number: [id number] Exam Date: 05/14/2025 18:49 Report Date: 05/14/2025 19:38 At the request of: BRYANT PULLIAM DO Procedure: US OB BPP w non-stress Ultrasound biophysical profile INDICATION: BPP COMPARISON: None FINDINGS IMPRESSION: SINGLE LIVE INTRAUTERINE IN CEPHALIC POSITION. HEART RATE 145 BPM. AMNIOTIC FLUID INDEX 13.3 CM. BIOPHYSICAL PROFILE SCORE 8/8 Impression dictated by: Kaveh Romeo M.D. 05/14/2025 7:38 PM Dictation Location: [place] [address] Electronically authenticated by: [id number] Y Date: 05/14/2025 19:38
--- OUTSIDE RECORDS SUMMARY | 2025-05-14 18:45 | XMS_ITS | Encounter Summary ---
Author Organization [facility] tem Address [id number] [place] [address] Care Team Providers Care Chief Nursing Executive Name Role Phone Dru Rodriguez April MUNGUIA Primary Care Provider +1- [phone] Encounter Details DateTypeDepartmentCare Team (Latest Contact Info)Eqekkidyjsy96/28/2025Telephone Maternal- Medicine at [facility] [address] [facility] [place] [phone] Clarita Mchugh, [facility] Social History Tobacco UseTypesPacks/DayYears UsedDateSmoking Tobacco: NeverSmokeless Tobacco: NeverAlcohol UseStandard Drinks/WeekCommentsYes0 (1 standard drink = 0.6 oz pure alcohol)[facility] UtilitiesAnswerDate RecordedIn the past 12 months has the [place], gas, oil, or water [employer] threatened to shut off services in your [...] care, and heating?Not hard at all02/17/2025PHQ-2AnswerDate RecordedTotal Nnyfj767Finuniversity of [facility] hospital [place] of Occupational Health - Occupational Stress QuestionnaireAnswerDate [...] a household?No02/17/2025hildcareAnswerDate RecordedDo problems getting early childhood aide classroom make it difficult for you to work [...] and direction in my life.Agree02/17/2025Estimated Date of QdzqcmemIsevgfuiXyw00/27/2026Based on last menstrual period of 10/30/2024Sex and Gender InformationValueDate RecordedSex Assigned at HowduVeouhk77/22/2025 1:51 AM EDTLegal SexFemale 01/13/2015 11:58 AM EDTGender PqqyaeaeGqxtiy14/22/2025 1:51 AM EDTSexual OrientationNot on filedocumented as of this encounter Miscellaneous Notes * Telephone Encounter - Clarita Mchugh CMA - 05/07/2025 9:53 AM EST Beverage Steward attempted to call patient. Needs rescheduled for missed appointment. Can see TARGET WORKER/PA via [employer] Networks[employer] next available. Number left to call and schedule. documented in this encounter Plan of Treatment DateTypeDepartmentCare Team (Latest Contact Info)Jjrdduglcpo58/08/2025 1:00 PM ESTTelemedicine Maternal- Medicine at [facility] [address] [place] [phone] Rosy Arredondo PA-C [address] [phone] 06/11/2025 3:30 PM ESTAppointment [facility] - [facility] US Imaging [address] [place] [phone] documented as of this encounter Visit Diagnoses Diagnosis Uncontrolled type 1 diabetes mellitus with hyperglycemia, with long-term current use of insulin ([facility]) documented in this encounter Additional Health Concerns AssessmentNoted TimePHQ-9 Depression Total Score: 8:31 AM ESTA Body Mass Index follow-up plan has been documented for the irktnwh1106/12/2023 4:35 PM ESTdocumented as of this encounter Care Teams Team MemberRelationshipSpecialtyStart DateEnd Date Dru Rodriguez DO [address] [place] [address] PCP - General01/01/17documented as of this encounter
--- OUTSIDE RECORDS SUMMARY | 2025-05-14 18:45 | XMS_ITS | Encounter Summary ---
Author Organization [facility] tem Address [id number] [address] [place] [address] Care Team Providers Care Road Machinery Inspector Name Role Phone Dru Rodriguez Primary Care Provider +1- [phone] Encounter Details DateTypeDepartmentCare Team (Latest Contact Info)Mvocqdgeyat79/01/2025Orders Only Maternal- Medicine at [facility] [address] [facility] [place] [phone] Clarita Mchugh, [facility] Social History Tobacco UseTypesPacks/DayYears UsedDateSmoking Tobacco: NeverSmokeless Tobacco: NeverAlcohol UseStandard Drinks/WeekCommentsYes0 (1 standard drink = 0.6 oz pure alcohol)[facility] UtilitiesAnswerDate RecordedIn the past 12 months has the [place], gas, oil, or water [employer] threatened to shut off services in your [...] care, and heating?Not hard at all02/17/2025PHQ-2AnswerDate RecordedTotal Imfzk69106/12/2023[facility] [place] of Occupational Health - Occupational Stress QuestionnaireAnswerDate [...] part of a household?No02/17/2025hildcareAnswerDate RecordedDo problems getting residential child care counselor make it difficult for you to work [...] and direction in my life.Agree02/17/2025Estimated Date of DjztazpeXgifwvrwFcn91/27/2026Based on last menstrual period of 10/30/2024Sex and Gender InformationValueDate RecordedSex Assigned at RfdqoFleack19/22/2025 1:51 AM EDTLegal SexFemale 01/13/2015 11:58 AM EDTGender JtdizdniYhdtyk09/22/2025 1:51 AM EDTSexual OrientationNot on filedocumented as of this encounter Plan of Treatment DateTypeDepartmentCare Team (Latest Contact Info)Svohrixbglj65/08/2025 1:00 PM ESTTelemedicine Maternal- Medicine at [facility] [address] [place] [phone] Rosy Arredondo PA-C [address] [address] 06/11/2025 3:30 PM ESTAppointment [facility] - [facility] US Imaging [address] [place] [phone] documented as of this encounter Visit Diagnoses Not on filedocumented in this encounter Additional Health Concerns AssessmentNoted TimePHQ-9 Depression Total Score: 8:31 AM ESTA Body Mass Index follow-up plan has been documented for the qngjlxh5606/12/2023 4:35 PM ESTdocumented as of this encounter Care Teams Team MemberRelationshipSpecialtyStart DateEnd Date Dru Rodriguez DO [address] [facility] [address] [place] [address] PCP - General01/01/17documented as of this encounter
--- OUTSIDE RECORDS SUMMARY | 2025-05-14 18:45 | XMS_ITS | Encounter Summary ---
Author Organization [facility] tem Address [id number] [place] [address] Care Team Providers Care No Experience Name Role Phone JenniferDru April MUNGUIA Primary Care Provider +1- [phone] Encounter Details DateTypeDepartmentCare Team (Latest Contact Info)Zduopoeczhi91/02/2025Orders Only Maternal- Medicine at [facility] [address] [place] [phone] Bhumi Duval MD [address] [facility], [address] [place] [address] Social History Tobacco UseTypesPacks/DayYears UsedDateSmoking Tobacco: NeverSmokeless Tobacco: NeverAlcohol UseStandard Drinks/WeekCommentsYes0 (1 standard drink = 0.6 oz pure alcohol)[facility] UtilitiesAnswerDate RecordedIn the past 12 months has [...] care, and heating?Not hard at all02/17/2025PHQ-2AnswerDate RecordedTotal Qptsu336Finkane county human resource ssd [place] of Occupational Health - Occupational Stress QuestionnaireAnswerDate [...] and direction in my life.Agree02/17/2025Estimated Date of EysgljfhSdczzxwvRch96/27/2026ased on last menstrual period of 10/30/2024Sex and Gender InformationValueDate RecordedSex Assigned at CnnlzPsgnpp20/22/2025 1:51 AM EDTLegal SexFemale 01/13/2015 11:58 AM EDTGender IlqveuhuZtdwwm60/22/2025 1:51 AM EDTSexual OrientationNot on filedocumented as of this encounter Plan of Treatment DateTypeDepartmentCare Team (Latest Contact Info)Zaclttmggqc75/08/2025 1:00 PM ESTTelemedicine Maternal- Medicine at [facility] [address] [place] [phone] Rosy Arredondo PA-C [address] [address] 06/11/2025 3:30 PM ESTAppointment [facility] - [facility] US Imaging [address] [place] [phone] documented as of this encounter Visit Diagnoses Not on filedocumented in this encounter Additional Health Concerns AssessmentNoted TimePHQ-9 Depression Total Score: 8:31 AM ESTA Body Mass Index follow-up plan has been documented for the mkgltzt7306/12/2023 4:35 PM ESTdocumented as of this encounter Care Teams Team MemberRelationshipSpecialtyStart DateEnd Date Dru Rodriguez DO [address] [place] [address] PCP - General01/01/17documented as of this encounter
--- OUTSIDE RECORDS SUMMARY | 2025-05-14 18:45 | XMS_ITS | Encounter Summary ---
Author Organization [facility] tem Address [id number] [address] [place] [address] Care Team Providers Care Insulation Board Back Tender Name Role Phone RonyDru lozada April MUNGUIA Primary Care Provider +1- [phone] Encounter Details DateTypeDepartmentCare Team (Latest Contact Info)Syvuooqbchl40/26/2025Telephone Maternal- Medicine at [facility] [address] [facility] [place] [facility] [place] [phone] Yue Bullock RN Social History Tobacco UseTypesPacks/DayYears UsedDateSmoking Tobacco: NeverSmokeless Tobacco: NeverAlcohol UseStandard Drinks/WeekCommentsYes0 (1 standard drink = 0.6 oz pure alcohol)[facility] UtilitiesAnswerDate RecordedIn the past 12 months has the [employer], gas, oil, or water [employer] threatened to shut off services in your [...] care, and heating?Not hard at all02/17/2025PHQ-2AnswerDate RecordedTotal Ssogp512Finmountain west medical center [place] of Occupational Health - Occupational Stress QuestionnaireAnswerDate [...] a household?No02/17/2025hildcareAnswerDate RecordedDo problems getting child care team lead make it difficult for you to work [...] and direction in my life.Agree02/17/2025Estimated Date of KwqznyjxUqyokqpqPol97/27/2026Based on last menstrual period of 10/30/2024Sex and Gender InformationValueDate RecordedSex Assigned at VjydvByxulo78/22/2025 1:51 AM EDTLegal SexFemale 01/13/2015 11:58 AM EDTGender AjythsscKxcwha95/22/2025 1:51 AM EDTSexual OrientationNot on filedocumented as of this encounter Miscellaneous Notes * Telephone Encounter - Yue Bullock RN - 05/05/2025 4:23 PM EST Called pt to see if she changed her auto to manual mode and if she has received new insulin changesin the last few days. Left her a message yesterday and she has not read it yet so called and received voicemail. Left her a message that Rosy did have changes for her and would like her to go backto auto mode. Read her the changes to her voicemail see her orders for details on her new pump setting changes. Will send her another my chart message as well. We will pull her pump report again nextweek. documented in this encounter Plan of Treatment DateTypeDepartmentCare Team (Latest Contact Info)Aoqxphamkms90/08/2025 1:00 PM ESTTelemedicine Maternal- Medicine at [facility] [address] [place] [phone] Rosy Arredondo, PA-C [address] [address] 06/11/2025 3:30 PM ESTAppointment [facility] - [facility] US Imaging [address] [place] [phone] documented as of this encounter Visit Diagnoses Diagnosis Uncontrolled type 1 diabetes mellitus with hyperglycemia, with long-term current use of insulin ([facility]) documented in this encounter Additional Health Concerns AssessmentNoted TimePHQ-9 Depression Total Score: 8:31 AM ESTA Body Mass Index follow-up plan has been documented for the znujyfz5506/12/2023 4:35 PM ESTdocumented as of this encounter Care Teams Team MemberRelationshipSpecialtyStart DateEnd Date Dru Rodriguez DO [address] [place] [address] PCP - General01/01/17documented as of this encounter
--- OUTSIDE RECORDS SUMMARY | 2025-05-14 18:46 | XMS_ITS | Encounter Summary ---
Author Organization [facility] tem Address [facility]-[id number] [address] [place] [address] Care Team Providers Care French Weaver Name Role Phone Dru Rodriguez DO Primary Care Provider +1- [phone] Reason for Referral * Diagnostic Imaging (Routine) - Pending ReviewSpecialtyDiagnoses / Procedures Referred By ContactReferred To ContactMaternal and Medicine Diagnoses Type 1 diabetes mellitus during in second trimester Procedures US MFM with or without consult Yahaira Miller MD [address] [address] Phone: tel: fax: Maternal- Medicine at [facility] [address] [place] [address] Phone: tel: fax: Referral IDStatusReasonStart DateExpiration DateVisits RequestedVisits [id number] [id number] Encounter Details DateTypeDepartmentCare Team (Latest Contact Info)Dloqqmypked00/04/2025Orders Only Maternal- Medicine at [facility] [address] [place] [address] Becca Natarajan RN Type 1 diabetes mellitus during in second trimester (Primary Dx) Social History Tobacco UseTypesPacks/DayYears UsedDateSmoking Tobacco: NeverSmokeless Tobacco: NeverAlcohol UseStandard Drinks/WeekCommentsYes0 (1 standard drink = 0.6 oz pure alcohol)socialAVITA HEALTH SYSTEM [facility] UtilitiesAnswerDate RecordedIn the past 12 months [...] care, and heating?Not hard at all02/17/2025PHQ-2AnswerDate RecordedTotal Ewivm040Finintermountain medical center Temple of Occupational Health - Occupational Stress QuestionnaireAnswerDate [...] part of a household?No02/17/2025hildcareAnswerDate RecordedDo problems getting maternal child nurse make it difficult for you to work [...] and direction in my life.Agree02/17/2025Estimated Date of RziwjwvjCkhugftqYah94/27/2026ased on last menstrual period of 10/30/2024Sex and Gender InformationValueDate RecordedSex Assigned at OvaweTrxrgr90/22/2025 1:51 AM EDTLegal SexFemale 01/13/2015 11:58 AM EDTGender UjdyxuuzNefwem51/22/2025 1:51 AM EDTSexual OrientationNot on filedocumented as of this encounter Plan of Treatment DateTypeDepartmentCare Team (Latest Contact Info)Aqnlmzikfcs72/08/2025 1:00 PM ESTTelemedicine Maternal- Medicine at [facility] [address] [place] [address] Rosy Arredondo, PAOksana [address] [address] 06/11/2025 3:30 PM ESTAppointment [facility] - [facility] US Imaging [address] [place] [phone] NameTypePriorityAssociated DiagnosesOrder ScheduleUS [facility] with or without consult ImagingRoutine Type 1 diabetes mellitus during in second trimester Expected: 05/13/2026 (Approximate), Expires: 08/11/2026documented as of this encounter Visit Diagnoses Diagnosis Type 1 diabetes mellitus during in second trimester- Primary documented in this encounter Additional Health Concerns AssessmentNoted TimePHQ-9 Depression Total Score: 8:31 AM ESTA Body Mass Index follow-up plan has been documented for the oolpvka9906/12/2023 4:35 PM ESTdocumented as of this encounter Care Teams Team MemberRelationshipSpecialtyStart DateEnd Date Dru Rodriguez DO [address] [place] [address] PCP - General01/01/17documented as of this encounter
--- OUTSIDE RECORDS SUMMARY | 2025-05-14 18:46 | XMS_ITS | Encounter Summary ---
Author Organization [facility] tem Address [facility]-[id number] [address] [place] [address] Care Team Providers Care Packaging Clerk Name Role Phone Dru Rodriguez April MUNGUIA Primary Care Provider +1- [phone] Encounter Details DateTypeDepartmentCare Team (Latest Contact Info)Lwdlrvokpun56/25/2025Orders Only [facility] - Labor [address] [place] [phone] Rosy Arredondo PA-C [address] [address] Social History Tobacco UseTypesPacks/DayYears UsedDateSmoking Tobacco: NeverSmokeless Tobacco: NeverAlcohol UseStandard Drinks/WeekCommentsYes0 (1 standard drink = 0.6 oz pure alcohol)[facility] UtilitiesAnswerDate RecordedIn the past 12 months [...] care, and heating?Not hard at all02/17/2025PHQ-2AnswerDate RecordedTotal Ykurp651Fincastleview hospital [place] of Occupational Health - Occupational Stress QuestionnaireAnswerDate [...] a household?No02/17/2025hildcareAnswerDate RecordedDo problems getting early childhood assistant make it difficult for you to work [...] and direction in my life.Agree02/17/2025Estimated Date of EskowyqlFnybrxasVyg96/27/2026ased on last menstrual period of 10/30/2024Sex and Gender InformationValueDate RecordedSex Assigned at FmwjwBaheyf64/22/2025 1:51 AM EDTLegal SexFemale 01/13/2015 11:58 AM EDTGender BveiczijDbezyl08/22/2025 1:51 AM EDTSexual OrientationNot on filedocumented as of this encounter Plan of Treatment DateTypeDepartmentCare Team (Latest Contact Info)Cylgjoyslgh53/08/2025 1:00 PM ESTTelemedicine Maternal- Medicine at [facility] [address] [place] [phone] Rosy Arredondo PA-C [address] [facility] [address] [place] [address] 06/11/2025 3:30 PM ESTAppointment [facility] US Imaging [address] [place] [address] documented as of this encounter Visit Diagnoses Not on filedocumented in this encounter Additional Health Concerns AssessmentNoted TimePHQ-9 Depression Total Score: 8:31 AM ESTA Body Mass Index follow-up plan has been documented for the qifdwuf7006/12/2023 4:35 PM ESTdocumented as of this encounter Care Teams Team MemberRelationshipSpecialtyStart DateEnd Date Dru Rodriguez DO [address] [place] [address] PCP - General01/01/17documented as of this encounter
--- OUTSIDE RECORDS SUMMARY | 2025-05-14 18:46 | XMS_ITS | Encounter Summary ---
Author Organization [facility] tem Address [facility]-[id number] [address] [place] [address] Care Team Providers Care Manual Training Teacher Name Role Phone Simon Rodriguezew April MUNGUIA Primary Care Provider +1- [phone] Encounter Details DateTypeDepartmentCare Team (Latest Contact Info)Jztrtivhfpp34/05/2025Telephone Maternal- Medicine at [facility] [address] [place] [phone] Katie Orozco, [address] [facility] [address] [place] [address] Social History Tobacco UseTypesPacks/DayYears UsedDateSmoking Tobacco: NeverSmokeless Tobacco: NeverAlcohol UseStandard Drinks/WeekCommentsYes0 (1 standard drink = 0.6 oz pure alcohol)[facility] UtilitiesAnswerDate RecordedIn the past 12 months [...] care, and heating?Not hard at all02/17/2025PHQ-2AnswerDate RecordedTotal Bupfl263Finspanish fork hospital [place] of Occupational Health - Occupational Stress QuestionnaireAnswerDate [...] and direction in my life.Agree02/17/2025Estimated Date of HhdbdvqlZsiqzybzDma91/27/2026ased on last menstrual period of 10/30/2024Sex and Gender InformationValueDate RecordedSex Assigned at BzkybClprlf28/22/2025 1:51 AM EDTLegal SexFemale 01/13/2015 11:58 AM EDTGender ReqfkccmTcjpsx55/22/2025 1:51 AM EDTSexual OrientationNot on filedocumented as of this encounter Miscellaneous Notes * Telephone Encounter - JOSE Henry - 05/14/2025 4:15 PM EST Called patient to confirm that she received the insulin pump changes for this week that Yue sent on MyChart (message shows as not read ). I had to leave a voicemail. Instructed patient to take a look at the MyChart and make the changes. Asked her to send a message or call to confirm that the changes were made. documented in this encounter Plan of Treatment DateTypeDepartmentCare Team (Latest Contact Info)Cxrsekhjvsx77/08/2025 1:00 PM ESTTelemedicine Maternal- Medicine at [facility] [address] [place] [phone] Rosy Arredondo, PASocoC [address] [address] 06/11/2025 3:[address] [facility] US Imaging [address] [place] [phone] documented as of this encounter Visit Diagnoses Diagnosis Uncontrolled type 1 diabetes mellitus with hyperglycemia, with long-term current use of insulin ([facility]) documented in this encounter Additional Health Concerns AssessmentNoted TimePHQ-9 Depression Total Score: 8:31 AM ESTA Body Mass Index follow-up plan has been documented for the duvulpj1506/12/2023 4:35 PM ESTdocumented as of this encounter Care Teams Team MemberRelationshipSpecialtyStart DateEnd Date Dru Rodriguez DO [address] [place] [address] PCP - General01/01/17documented as of this encounter
--- OUTSIDE RECORDS SUMMARY | 2025-05-14 18:46 | XMS_ITS | Encounter Summary ---
Author Organization [facility] tem Address [facility][id number] [address] [place] [address] Care Team Providers Care Black Off Worker Name Role Phone Dru Rodriguez April MUNGUIA Primary Care Provider +1- [phone] Encounter Details DateTypeDepartmentCare Team (Latest Contact Info)Moncvpaogqs61/24/2025Orders Only Maternal- Medicine at [facility] [address] [facility] [place] [phone] Debby Garcia RN Social History Tobacco UseTypesPacks/DayYears UsedDateSmoking Tobacco: NeverSmokeless Tobacco: NeverAlcohol UseStandard Drinks/WeekCommentsYes0 (1 standard drink = 0.6 oz pure alcohol)[facility] UtilitiesAnswerDate RecordedIn the past 12 months has the [employer], oil, or water [employer] threatened to shut off services in your [...] care, and heating?Not hard at all02/17/2025PHQ-2AnswerDate RecordedTotal Aausy78106/12/2023Finuniversity of utah hospital [place] of Occupational Health - Occupational Stress QuestionnaireAnswerDate [...] of a household?No02/17/2025hildcareAnswerDate RecordedDo problems getting child psychometrist make it difficult for you to work [...] and direction in my life.Agree02/17/2025Estimated Date of UmwlbcvhRifjgsnsGzg02/27/2026Based on last menstrual period of 10/30/2024Sex and Gender InformationValueDate RecordedSex Assigned at AklhnRtcpsd01/22/2025 1:51 AM EDTLegal SexFemale 01/13/2015 11:58 AM EDTGender OxgfzgrfCnkaaq10/22/2025 1:51 AM EDTSexual OrientationNot on filedocumented as of this encounter Plan of Treatment DateTypeDepartmentCare Team (Latest Contact Info)Dbwdaozzytt80/08/2025 1:00 PM ESTTelemedicine Maternal- Medicine at [facility] [address] [place] [address] Rosy Arredondo PA-C [address] [address] 06/11/2025 3:30 PM ESTAppointment [facility] US Imaging [address] [place] [address] documented as of this encounter Visit Diagnoses Not on filedocumented in this encounter Additional Health Concerns AssessmentNoted TimePHQ-9 Depression Total Score: 8:31 AM ESTA Body Mass Index follow-up plan has been documented for the uzfrpcg3206/12/2023 4:35 PM ESTdocumented as of this encounter Care Teams Team MemberRelationshipSpecialtyStart DateEnd Date Dru Rodriguez DO [address] [place] [address] PCP - General01/01/17documented as of this encounter
--- OUTSIDE RECORDS SUMMARY | 2025-05-14 18:46 | XMS_ITS | Encounter Summary ---
Author Organization [facility] tem Address [facility]-[id number] [address] [place] [address] Care Team Providers Care Board Handler Name Role Phone JenniferDru April MUNGUIA Primary Care Provider +1- [phone] Encounter Details DateTypeDepartmentCare Team (Latest Contact Info)Tielvnsnkhj18/25/2025Orders Only Maternal- Medicine at [facility] [address] [place] [phone] Rosy Arredondo PA-C [address] [address] Social History Tobacco UseTypesPacks/DayYears UsedDateSmoking Tobacco: NeverSmokeless Tobacco: NeverAlcohol UseStandard Drinks/WeekCommentsYes0 (1 standard drink = 0.6 oz pure alcohol)[facility] UtilitiesAnswerDate RecordedIn the past 12 months has [...] care, and heating?Not hard at all02/17/2025PHQ-2AnswerDate RecordedTotal Mcwqt298Finmountain point medical center [place] of Occupational Health - Occupational Stress QuestionnaireAnswerDate [...] part of a household?No02/17/2025hildcareAnswerDate RecordedDo problems getting assistant child care teacher make it difficult for you to [...] and direction in my life.Agree02/17/2025Estimated Date of OdhnuklxTqzefsubGwb35/27/2026ased on last menstrual period of 10/30/2024Sex and Gender InformationValueDate RecordedSex Assigned at DmwexZdgdzq10/22/2025 1:51 AM EDTLegal SexFemale 01/13/2015 11:58 AM EDTGender NgantscxDfytys34/22/2025 1:51 AM EDTSexual OrientationNot on filedocumented as of this encounter Plan of Treatment DateTypeDepartmentCare Team (Latest Contact Info)Ucpbfeqiaag56/08/2025 1:00 PM ESTTelemedicine Maternal- Medicine at [facility] [address] [place] [phone] Rosy Arredondo PA-C [address] [address] 06/11/2025 3:30 PM ESTAppointment [facility] US Imaging [address] [place] [address] documented as of this encounter Visit Diagnoses Not on filedocumented in this encounter Additional Health Concerns AssessmentNoted TimePHQ-9 Depression Total Score: 8:31 AM ESTA Body Mass Index follow-up plan has been documented for the sdftwqv7806/12/2023 4:35 PM ESTdocumented as of this encounter Care Teams Team MemberRelationshipSpecialtyStart DateEnd Date Dru Rodriguez DO [address] [place] [address] PCP - General01/01/17documented as of this encounter
--- OUTSIDE RECORDS SUMMARY | 2025-05-14 18:46 | XMS_ITS | Encounter Summary ---
Author Organization [facility] tem Address [facility]-[id number] [address] [place] [address] Care Team Providers Care Antique Furniture Reproducer Name Role Phone JenniferDru April MUNGUIA Primary Care Provider +1- [phone] Encounter Details DateTypeDepartmentCare Team (Latest Contact Info)Uvrchckxaah86/25/2025Telephone Maternal- Medicine at [facility] [address] [facility] [place] [address] Daniel Walker Social History Tobacco UseTypesPacks/DayYears UsedDateSmoking Tobacco: NeverSmokeless Tobacco: NeverAlcohol UseStandard Drinks/WeekCommentsYes0 (1 standard drink = 0.6 oz pure alcohol)[facility] UtilitiesAnswerDate RecordedIn the past 12 months has the [employer], [employer], oil, or water [employer] threatened to shut off services in your [...] care, and heating?Not hard at all02/17/2025PHQ-2AnswerDate RecordedTotal Iwwho68206/12/2023Finblue mountain hospital [place] of Occupational Health - Occupational Stress QuestionnaireAnswerDate [...] of a household?No02/17/2025hildcareAnswerDate RecordedDo problems getting childcare teacher make it difficult for you to [...] and direction in my life.Agree02/17/2025Estimated Date of QefzmuwjGqtalctbXvw85/27/2026Based on last menstrual period of 10/30/2024Sex and Gender InformationValueDate RecordedSex Assigned at JzbvlAyhkog40/22/2025 1:51 AM EDTLegal SexFemale 01/13/2015 11:58 AM EDTGender YuzahtiuRcuags13/22/2025 1:51 AM EDTSexual OrientationNot on filedocumented as of this encounter Miscellaneous Notes * Telephone Encounter - Daniel Walker - 05/04/2025 4:01 PM EST Called pt and lmom in regards to missed follow up diabetes appt with cindi. Told pt to call schedulers back when able to do so. jk documented in this encounter Plan of Treatment DateTypeDepartmentCare Team (Latest Contact Info)Axgvzlxlupb13/08/2025 1:00 PM ESTTelemedicine Maternal- Medicine at [facility] [address] [place] [phone] Cindi Arredondo, PA-C [address] [phone] 06/11/2025 3:30 PM ESTAppointment [facility] US Imaging [address] [place] [phone] documented as of this encounter Visit Diagnoses Diagnosis Uncontrolled type 1 diabetes mellitus with hyperglycemia, with long-term current use of insulin ([facility]) documented in this encounter Additional Health Concerns AssessmentNoted TimePHQ-9 Depression Total Score: 8:31 AM ESTA Body Mass Index follow-up plan has been documented for the lthxbwm7006/12/2023 4:35 PM ESTdocumented as of this encounter Care Teams Team MemberRelationshipSpecialtyStart DateEnd Date Dru Rodriguez DO [address] [place] [address] PCP - General01/01/17documented as of this encounter
--- OUTSIDE RECORDS SUMMARY | 2025-05-14 18:46 | XMS_ITS | Encounter Summary ---
Author Organization [employer] tem Address [facility]-[id number] [address] [place] [address] Care Team Providers Care Airport Representative Name Role Phone JenniferDru April MUNGUIA Primary Care Provider +1- [phone] Encounter Details DateTypeDepartmentCare Team (Latest Contact Info)Qobodaymbsw53/04/2025Travel Social History Tobacco UseTypesPacks/DayYears UsedDateSmoking Tobacco: NeverSmokeless Tobacco: NeverAlcohol UseStandard Drinks/WeekCommentsYes0 (1 standard drink = 0.6 oz pure alcohol)socialFLOWER [facility]ITAL UtilitiesAnswerDate RecordedIn the past 12 months [...] care, and heating?Not hard at all02/17/2025PHQ-2AnswerDate RecordedTotal Oveue971Finsteward health care system [place] of Occupational Health - Occupational Stress QuestionnaireAnswerDate [...] a household?No02/17/2025hildcareAnswerDate RecordedDo problems getting child care center assistant director make it difficult for you to [...] and direction in my life.Agree02/17/2025Estimated Date of AjonxwcpDbrkgplwJdc59/27/2026Based on last menstrual period of 10/30/2024Sex and Gender InformationValueDate RecordedSex Assigned at HezikIsjjid08/22/2025 1:51 AM EDTLegal SexFemale 01/13/2015 11:58 AM EDTGender CsfhzlxlVrulnd50/22/2025 1:51 AM EDTSexual OrientationNot on filedocumented as of this encounter Plan of Treatment DateTypeDepartmentCare Team (Latest Contact Info)Etjtkvrqmpe84/08/2025 1:00 PM ESTTelemedicine Maternal- Medicine at [facility] [address] [place] [address] Rosy Arredondo PA-C [address] [facility] [address] [place] [address] 06/11/2025 3:30 PM ESTAppointment [facility] US Imaging [address] [place] [address] documented as of this encounter Visit Diagnoses Not on filedocumented in this encounter Additional Health Concerns AssessmentNoted TimePHQ-9 Depression Total Score: 8:31 AM ESTA Body Mass Index follow-up plan has been documented for the xpgdhpk7806/12/2023 4:35 PM ESTdocumented as of this encounter Care Teams Team MemberRelationshipSpecialtyStart DateEnd Date Dru Rodriguez DO [address] [place] [address] PCP - General01/01/17documented as of this encounter
[2025-05-14 19:12] VITALS: BP 124/76; PULSE 92
== END 2025-05-14 19:40 | disposition home or self-care (01) ==
LOC: US 18:39 → FBC 18:46
PROVIDERS: PCP Family Medicine; Visit Provider Obstetrics & Gynecology
DX: O24.313 Unspecified pre-existing diabetes mellitus in pregnancy, third trimester (principal); O24.019 Pre-existing type 1 diabetes mellitus, in pregnancy, unspecified trimester; Z3A.28 28 weeks gestation of pregnancy
CPT/HCPCS: 76818

== ENCOUNTER 2025-05-18 18:27 | Outpatient (OUT) | payer OTHER, BC, SELFPAY ==
[2025-05-18 18:45] VITALS: BP 117/74; PULSE 90
== END 2025-05-18 19:10 | disposition home or self-care (01) ==
LOC: FBCO 18:28 → FBC 18:33
PROVIDERS: PCP Family Medicine; Visit Provider Obstetrics & Gynecology
DX: O99.283 Endocrine, nutritional and metabolic diseases complicating pregnancy, third trimester (principal); Z3A.28 28 weeks gestation of pregnancy
CPT/HCPCS: 59025

== ENCOUNTER 2025-05-21 18:40 | Outpatient (OUT) | payer OTHER, BC, SELFPAY ==
--- OUTSIDE RECORDS SUMMARY | 2023-12-31 09:00 | XMS_ITS | Continuity of Care Document ---
Author Organization [facility] Address [address] [place] [address] Phone Care Team Providers Care Cartography/Mapping Technician Name Role Phone Edna Rodriguez Unavailable Unavailable [...] TOBACCO NON-USER [employer] [place] Dis Dec Resin Composite 1s; Posterior Prophylaxis Adult Moderate Risk [employer] [place] Dis Dec Oral Hygiene Instruction PSYTX PT&/FAMILY 60 MINUTES PSYTX PT&/FAMILY 60 MINUTES OFFICE/OUTPATIENT VISIT, EST HG A1C LEVEL < 7.0% TOBACCO NON-USER PSYTX PT&/FAMILY 60 MINUTES OFFICE/OUTPATIENT VISIT, EST MED LIST DOCD IN [facility] RVW MEDS BY RX/DR IN [facility] TOBACCO NON-USER PSYTX PT&/FAMILY 60 MINUTES Intraoral-complete Series (bw) Comp Oral Eval New/estab Patient 2023 Oral Hygiene Instruction PSYTX PT&/FAMILY 60 MINUTES OFFICE/OUTPATIENT VISIT, EST DIAST BP 80-89 MM HG SYST BP < 130 MM HG MED LIST DOCD IN [facility] RVW MEDS BY RX/DR IN [facility] TOBACCO NON-USER PSYTX PT&/FAMILY 60 MINUTES PSYTX PT&/FAMILY 60 MINUTES Advance Directives Directive Yes / No Effective Date File Name No Information Encounters Encounter Description Practice Location Reason(s) For Visit Diagnoses Date Provider Providers Copied on Encounter PSYTX PT&/FAMILY 60 MINUTES [facility], [address] [place] [address], [id number] , [place] [phone] [facility] Psychosis, unspecified psychosis typePTSD (post-traumatic stress disorder)Body mass index [BMI] 27.0-27.9, adultVitamin D deficiency, unspecified 4 Olman Bishop. [address] [place] [address], [id number], [place]. [phone] OFFICE/OUTPA TIENT VISIT, [facility], [address] [place] [address], [id number] , [place] tel:[phone] [facility] Telehealth (chief complaint) Psychosis, unspecified psychosis typePTSD (post-traumatic stress disorder)Body mass index [BMI] 27.0-27.9, adultVitamin D deficiency, unspecified 4 Bellstephen Martinodith. [address] [place], [address], [place]. tel: [phone] [facility], [address] [place] [address], [id number] , [place] tel: [phone] Dental Clinic fill (chief complaint) Encounter for screening for dental disorders 4 Jonh Parr. [address] [place], [place], [id number] , [place]. tel: [phone] [facility], [address] [place] [address], [id number] , [place] tel: [phone] [facility] Dental Clinic [place] (chief complaint) Encounter for screening for dental disorders 4 Jonh Parr. [address], [place], [id number] , [place]. tel: [phone] PSYTX PT&/FAMILY 60 MINUTES [facility], [address] [place] [address], [id number] , [place] tel: [phone] [facility] Psychosis, unspecified psychosis typePTSD (post-traumatic stress disorder)Body mass index [BMI] 27.0-27.9, adultVitamin D deficiency, unspecified 4 Olman JENA Edna. [address] [place], [address], [place]. tel: [phone] PSYTX PT&/FAMILY 60 MINUTES [facility], [address] [place] [address], [id number] , [place] tel: [phone] [facility] Psychosis, unspecified psychosis typePTSD (post-traumatic stress disorder)Body mass index [BMI] 27.0-27.9, adultVitamin D deficiency, unspecified 4 Olman Snydercy. [address] [place] [address], [address], [place]. tel: [phone] OFFICE/OUTPA TIENT VISIT, EST [facility], [address] [place] [address], [id number] , [place] tel: [phone] [facility] (chief complaint) Psychosis, unspecified psychosis typePTSD (post-traumatic stress disorder)Body mass index [BMI] 27.0-27.9, adultVitamin D deficiency, unspecified 4 [facility]. [address] [place] [address], [address], . tel: [phone] PSYTX PT&/FAMILY 60 MINUTES [facility], [address] [place] [address], [id number] , [place] tel: [phone] [facility] Psychosis, unspecified psychosis typePTSD (post-traumatic stress disorder)Body mass index [BMI] 27.0-27.9, adult 4 Olman Bishop. [address] [place] [address], [address], [place]. tel: [phone] OFFICE/OUTPA TIENT VISIT, [facility], [address] [place] [address], [id number] , [place] tel: [phone] [facility] Telehealth (chief complaint) Psychosis, unspecified psychosis typePTSD (post-traumatic stress disorder)Body mass index [BMI] 27.0-27.9, adult 4 [facility]. [address] [place] [address], [address], [place]. tel: [phone] PSYTX PT&/FAMILY 60 MINUTES [facility], [address] [place] [address], [id number] , [place] tel: [phone] [facility] Psychosis, unspecified psychosis typePTSD (post-traumatic stress disorder)Need for hepatitis C screening testScreening for diabetes mellitusScreening for endocrine disorderScreening for lipid disordersScreening for HIV (human immunodeficiency virus)Body mass index [BMI] 26.0-26.9, adultBody mass index [BMI] 27.0-27.9, adult 4 Olman Bishop. [address] [place] [address], [address], [place]. tel: [phone] [facility], [address] [place] [address], [id number] , [place] tel: [phone] Dental Clinic DN (chief complaint) Body mass index [BMI] 27.0-27.9, adultEncounter for screening for dental disorders 4 Jonh Baumannal. [address], [place], [id number] , [place]. tel: [phone] [facility], [address] [place] [address], [id number] , [place] tel: [phone] [facility] Encounter for routine general gynecological examination without abnormal findingEncounter for gynecological examination (general) (routine) without abnormal findings 4 Ray Hurley. [address] [place] [address], [address], [place]. tel: [phone] PSYTX PT&/FAMILY 60 MINUTES [facility], [address] [place] [address], [id number] , [place] tel: [phone] [facility] Psychosis, unspecified psychosis typePTSD (post-traumatic stress disorder)Need for hepatitis C screening testScreening for diabetes mellitusScreening for endocrine disorderScreening for lipid disordersScreening for HIV (human immunodeficiency virus)Body mass index [BMI] 26.0-26.9, adultBody mass index [BMI] 27.0-27.9, adult 4 Olman Bishop. [address] [place] [address], [address], [place]. tel: [phone] OFFICE/OUTPA TIENT VISIT, EST [facility], [address] [place] [address], [id number] , [place] tel: [phone] [facility] Behavioral health (chief complaint) Need for hepatitis C screening testScreening for diabetes mellitusScreening for endocrine disorderScreening for lipid disordersScreening for HIV (human immunodeficiency virus)Body mass index [BMI] 26.0-26.9, adultPsychosis, unspecified psychosis typePTSD (post-traumatic stress disorder)Body mass index [BMI] 27.0-27.9, adult 4 Ray Hurley. [address] [place] [address], [address], [place]. tel: [phone] PSYTX PT&/FAMILY 60 MINUTES [facility], [address] [place], [place], [id number] , [place] tel: [phone] [facility] Schizophrenia, unspecified 4 Olman Bishop. [address] [place], [address], [place]. tel: [phone] PSYTX PT&/FAMILY 60 MINUTES [facility], [address] [place], [place], [id number] , [place] tel: [phone] [facility] Schizophrenia, unspecified 4 Olman Bishop. [address] [place], [address], [place]. tel: [phone] Family History Family Member Type Diagnosis Age At Onset No Information Payers Payer name Insurance type Covered green party ID Authoriza tion(s) No Information Social [...] Of Treatment Date Type Action Status Goal Unhealthy drug u se screening. Due [...] due Goal Tdap. Due on due Goal Depression scree seth. Due on due Goal RLP. Due on due Goal Tdap. Due on due Goal PRAPARE ASSESSMENT. Due on due Goal PAP. Due on due Goal Unhealthy drug u se screening. Due on due Goal Influenza vaccine. Due on due Goal Hepatitis C scre ening. Due on due Goal Lipid panel. Due on due Goal Hep A. Due [...] Goal Lipid panel. Due on due Goal Lipid panel. Due [...] Hep A. Due on du e Goal Depression scree seth. Due on due [...] Goal Influenza vaccine. Due on due Goal Unhealthy drug u se screening. Due on due Goal PRAPARE ASSESSMENT. Due on due Goal PAP. Due on due Goal Lipid panel. Due on due Goal Dietary manageme nt education, guidance, and counseling completed Goal Hepatitis C scre ening. Due on due Goal Unhealthy drug u se screening. Due on due Goal Depression scree seth. Due on due Goal Lipid panel. Due on due Goal PAP. Due on due Goal Tdap. Due on due Goal Influenza vaccine. Due on due Goal PRAPARE ASSESSMENT. Due on due Goal Tdap Vaccine. Due on 2023 due Goal RLP. Due on due Goal Tdap Vaccine. Due on 2023 due Goal Hepatitis C scre ening. Due on due Goal PRAPARE ASSESSMENT. Due on due Goal Depression scree seth. Due on due Goal PAP. Due on due Goal Influenza vaccine. Due on due Goal Lipid panel. Due on due Goal Unhealthy drug u se screening. Due on due Goal Tdap. Due on due Goal RLP. Due on due Goal PAP. Due on due Goal Tdap [...] e Goal Tdap. Due on due Goal Dietary manageme nt education, guidance, and counseling completed Goal Unhealthy drug u se screening. Due on due Goal PAP. Due on due Goal Influenza vaccine. Due on due Goal PRAPARE ASSESSMENT. Due on due Goal Hep A. Due on du e Goal RLP. Due on due Goal Hepatitis C scre ening. Due on due Goal Tdap. Due on due Goal Depression scree seth. [...] Lifestyle education regardin g diet completed Goal Influenza vaccine. Due on due Goal PRAPARE ASSESSMENT. Due on due Goal PAP. Due on due Goal Tdap. Due on due Goal Tdap Vaccine. Due on 2023 due Goal Unhealthy drug u se screening. Due on due Goal Depression scree seth. Due on due Goal Hepatitis C scre ening. Due on due Goal RLP. Due on due Goal Tdap Vaccine. Due on 2023 due Goal PRAPARE ASSESSMENT. Due on M due Goal Depression scree seth. Due on due Goal Hepatitis C scre ening. Due on due Goal Influenza vaccine. Due on Ma due Goal Unhealthy drug u se screening. Due on due Goal PAP. Due on due Goal Tdap. Due on due Goal RLP. Due on due Future Order: Lab Order HIV 1/0/ 2 Ag/Ab with Reflex ([id number]), Ordered on: Ordered Future Order: Lab Order Hemoglob in A1c ([id number]), Ordered on: Ordered Future Order: Lab Order Lipid Pa jose alejandro ([id number]), Ordered on: Ordered Future Order: Lab Order TSH Rfx on Abnormal to Free T4 ([id number]), Ordered on: Ordered Future Order: Lab Order Vitamin D, 25-Hydroxy ([id number]), Ordered on: Ordered Future Order: Lab Order Vitamin B12 and Folate ([id number]), Ordered on: Ordered Future Order: Lab Order Ammonia, Plasma ([id number]), Ordered on: Ordered Future Order: Lab Order CBC With Differential/Platelet ([id number]), Ordered on: Ordered Future Order: Lab Order Comp. Me tabolic Panel (14) ([id number]), Ordered on: Ordered Future Order: Lab Order Abram gleason Drug Analysis, Ur ([id number]), Ordered on: Ordered Future Order: Lab Order HCV Anti body W/ Reflex To Quantitative Real Time Pcr ([id number]), Ordered on: Ordered History Of Present Illness [...] Edna Thurman. Pt sees Dr. Rodriguez at [facility] for PCP. Pt is UTD on Pap. [facility] [place]. Pt denies homicidal thoughts. Admits to occasional [...] to Body mass index [BMI] 26.0-26.9, adult Lifestyle education regarding di et Related [...]
--- OUTSIDE RECORDS SUMMARY | 2025-05-13 08:33 | XMS_ITS | Encounter Summary ---
Author Organization [employer] [facility] tem Address [id number] [address] [place] [address] Care Team Providers Care Shellfish Checker Name Role Phone Dru Rodriguez DO Primary Care Provider +1- [phone] Reason for Referral * Diagnostic Imaging (Routine) - Pending ReviewSpecialtyDiagnoses / Procedures Referred By ContactReferred To ContactMaternal and Medicine Diagnoses Type 1 diabetes mellitus during in second trimester Procedures US [facility] with or without consult Ivory Duval MD [address] [address] Phone: tel: fax: Maternal- Medicine at [address] [address] Phone: tel: fax: Referral IDStatusReasonStart DateExpiration DateVisits RequestedVisits [id number] Reason for Visit * Diagnostic Imaging (Routine) - Pending ReviewSpecialtyDiagnoses / Procedures Referred By ContactReferred To ContactMaternal and Medicine Diagnoses Type 1 diabetes mellitus during in second trimester Procedures US MFM with or without consult Ivory Duval MD [address] [facility], [facility] [place] [address] Phone: tel: fax: Maternal- Medicine at [facility] [address] [place] [address] Phone: tel: fax: Referral IDStatusReasonStart DateExpiration DateVisits RequestedVisits [id number] Adukwk88/6/699386/ Encounter Details DateTypeDepartmentCare Team (Latest Contact Info)Aflimtdjajk14/04/2025 8:33 AM EST - 05/13/2025 11:59 PM ESTHospital Encounter [facility] - MFM US Imaging [address] [place] [address] Type 1 diabetes mellitus during in second trimester Discharge Disposition: Home Social History Tobacco UseTypesPacks/DayYears UsedDateSmoking Tobacco: NeverSmokeless Tobacco: NeverAlcohol UseStandard Drinks/WeekCommentsYes0 (1 standard drink = 0.6 oz pure alcohol)socialCLERMONT COUNTY HOSPITAL UtilitiesAnswerDate RecordedIn the past 12 months [...] care, and heating?Not hard at all02/17/2025PHQ-2AnswerDate RecordedTotal Lrfyq61006/12/2023[facility] [place] of Occupational Health - Occupational Stress QuestionnaireAnswerDate [...] of a household?No02/17/2025hildcareAnswerDate RecordedDo problems getting child adolescent psychiatrist make it difficult for you to work [...] and direction in my life.Agree02/17/2025Estimated Date of WjynakwpZublsdihNun18/27/2026ased on last menstrual period of 10/30/2024Sex and Gender InformationValueDate RecordedSex Assigned at LeqxlPtmadb27/22/2025 1:51 AM EDTLegal SexFemale 01/13/2015 11:58 AM EDTGender IicsfcfsLiwvlq56/22/2025 1:51 AM EDTSexual OrientationNot on filedocumented as [...] Plan of Treatment DateTypeDepartmentCare Team (Latest Contact Info)Rpcppowjvpf69/02/2026 3:30 PM ESTAppointment [facility] - [facility] US Imaging [address] [place] [address] documented as of this encounter Procedures Procedure NamePriorityDate/TimeAssociated DiagnosisCommentsUS [facility] OB FOLLOW-UP, 1 SLHLOFkbphqi53/04/2025 9:12 AM EST Type 1 diabetes mellitus during in second trimester documented in this encounter Results * US [facility] OB FOLLOW-UP, 1 FETUS (05/13/2025 9:12 AM EST)Anatomical Region LateralityModalityOB-GYNUltrasoundSpecimen (Source)Anatomical Location / LateralityCollection Method / VolumeCollection TimeReceived Time05/13/2025 8:44 AM EST Narrative 05/13/2025 10:52 AM EST NAME: ??THOMASJYOTI JIMENEZFRANSISCA ARROYO : 2000 SEX: F Accession Number: [id number] ORDERING PHYSICIAN: IVORY DUVAL REFERRING PHYSICIAN: BRYANT PULLIAM Coding Procedures ? 17825: Ultrasound, uterus, real time with image documentation, [...] (oz) ? 10 oz EFW by: ?Hadlock (TYR-XA-YM-FL) Extended Tibia ??45.1 mm 27w 4d 40% Randolph Roving Hauler ? 2.4 mm CM ? 6.4 mm [...] MVP measures 4.6 cm. Recommendations Please see [facility] recommendations from prior clinical and/or ultrasound report documentation. The patient is scheduled in four weeks for follow up growth ultrasound. Subsequent follow up or other follow up as clinically determined by primary OB provider unless otherwise specified by [facility]. Results forwarded to ordering provider so they can follow up with the patient as necessary. Procedure Note Yahaira Miller MD - 05/13/2025 NAME: DARREN ART : 2000 SEX: F Accession Number: [id number] ORDERING PHYSICIAN: IVORY DUVAL REFERRING PHYSICIAN: BRYANT PULLIAM Coding Procedures 60867: Ultrasound, uterus, real time with image documentation, [...] EFW (oz) 10 oz EFW by: Hadlock (TOY-FW-OU-FL) Extended Tibia 45.1 mm 27w 4d 40% Randolph Roving Hauler 2.4 mm CM 6.4 mm 42% Nicolaides [...] MVP measures 4.6 cm. Recommendations Please see [facility] recommendations from prior clinical and/or ultrasoundreport documentation. The patient is scheduled in four weeks for follow up growth ultrasound. Subsequent follow up or other follow up as clinically determined byprimary OB provider unless otherwise specified by [facility]. Results forwarded to ordering provider so they can follow up with thepatient as necessary. Authorizing ProviderResult TypeResult StatusIvory Duval MDIMG ORDERABLESFinal Result documented in this encounter Visit Diagnoses Diagnosis Type 1 diabetes mellitus during in second trimester documented in this encounter Additional Health Concerns AssessmentNoted TimePHQ-9 Depression Total Score: 8:31 AM ESTA Body Mass Index follow-up plan has been documented for the vjnydyd8506/12/2023 4:35 PM ESTdocumented as of this encounter Care Teams Team MemberRelationshipSpecialtyStart DateEnd Date Dru Rodriguez DO [address] [facility] [place] [address] PCP - General01/01/17documented as of this encounter
--- OUTSIDE RECORDS SUMMARY | 2025-05-17 13:00 | XMS_ITS | Encounter Summary ---
Author Organization [facility] tem Address [id number] [address] [place] [address] Care Team Providers Care Continuous Mining Machine Company Miner Name Role Phone JenniferDru pAril MUNGUIA Primary Care Provider +1- [phone] Encounter Details DateTypeDepartmentCare Team (Latest Contact Info)Iiweiqrwpvf41/08/2025 1:00 PM ESTTelemedicine Maternal- Medicine at [facility] [address] [place] [phone] Rosy Arredondo PA-C [address] [address] Type 1 diabetes mellitus during in third trimester (Primary Dx) Social History Tobacco UseTypesPacks/DayYears UsedDateSmoking Tobacco: NeverSmokeless Tobacco: NeverAlcohol UseStandard Drinks/WeekCommentsYes0 (1 standard drink = 0.6 oz pure alcohol)socialPARMA COMMUNITY [facility] UtilitiesAnswerDate RecordedIn the past 12 months has the [employer], gas, oil, or water [employer] threatened to shut off services in your [...] care, and heating?Not hard at all02/17/2025PHQ-2AnswerDate RecordedTotal Cyypv890Finlakeview hospital [place] of Occupational Health - Occupational Stress QuestionnaireAnswerDate [...] a household?No02/17/2025hildcareAnswerDate RecordedDo problems getting child support investigator make it difficult for you to work [...] and direction in my life.Agree02/17/2025Estimated Date of YvdkbwlnJjjgxafbLkq75/27/2026Based on last menstrual period of 10/30/2024Sex and Gender InformationValueDate RecordedSex Assigned at VxjelWwcjvs61/22/2025 1:51 AM EDTLegal SexFemale 01/13/2015 11:58 AM EDTGender WsndjnavOycusy50/22/2025 1:51 AM EDTSexual OrientationNot on filedocumented as [...] has been negative 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, 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, 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, [...] Date Anxiety Depression Diabetes mellitus type I ([facility]) SURGICAL HISTORY: Past Surgical History: Procedure Laterality [...] TSH 0.75 04/20/2025 No components found for: [facility] Lab Results Component Value Date CREATININE [...] 2009 Endo outside of : Mily Queen ([facility]) - Current blood glucose control: poor [...] has follow up with her PCP or journeyman wireman within 2 weeks after delivery - MFM/Endocrinology referral placed for Dr Cerrato, however due to patient's insurance, she can only get her medication refilled through her current journeyman wireman which is in network for her. Her [...] by e-mail to: or by fax to: [phone] Rosy Arredondo PA-C Maternal- Medicine Office phone: [phone] Rosy Arredondo PA-C 05/17/25 1325 documented in this encounter Plan of Treatment DateTypeDepartmentCare Team (Latest Contact Info)Pqsmxzkofjq66/02/2026 3:30 PM ESTAppointment [facility] [address] [place] [phone] documented as of this encounter Visit Diagnoses Diagnosis Type 1 diabetes mellitus during in third trimester- Primary documented in this encounter Additional Health Concerns AssessmentNoted TimePHQ-9 Depression Total Score: 8:31 AM ESTA Body Mass Index follow-up plan has been documented for the rgezygb1706/12/2023 4:35 PM ESTdocumented as of this encounter Care Teams Team MemberRelationshipSpecialtyStart DateEnd Date Dru Rodriguez DO [address] [place] [address] PCP - General01/01/17documented as of this encounter
--- OUTSIDE RECORDS SUMMARY | 2025-05-18 14:40 | XMS_ITS | Encounter Summary ---
Author Organization [facility] Address [address] [place] [address] Care Team Providers Care Manager Data Center Name Role Phone RonyDru lozada April DO Primary Care Provider [phone]- [phone] Dru Rodriguez DO Unavailable Reason for Visit * ReasonCommentsRoutine Visit Encounter Details DateTypeDepartmentCare Team (Latest Contact Info)Ygmjqqidcmd22/09/2025 2:40 PM ESTRoutine [facility] [address] [place] [address] Katharine Cummins PA [address] [place], [facility] 28 weeks gestation of ([facility]); Type 1 diabetes mellitus during , antepartum ([facility]); Third trimester ([facility]) Social History Tobacco UseTypesPacks/DayYears UsedDateSmoking Tobacco: [...] relatives?Twice a week03/11/2023How often do you attend jainism or muslim services?1 to 4 times per year03/11/2023o you belong to any clubs or organizations such as jainism groups, unions, fraThe 517 travel or athletic laura ups, or school groups?No03/11/2023How often do you attend meetings of the clubs or organizations you belong to?Never03/11/2023re you , , , , never , or living with a partner?Mieqxys4203/11/2023 AUDIT-CAnswerDate RecordedQ1: How often do you have a drink containing alcohol? Monthly or less03/11/2023Q2: How many drinks containing alcohol do you have on a typical day when you are drinking?3 or Q3: How often do you have six or more drinks on one occasion?Less than tjgdmrm6803/11/2023Overall Financial Resource Strain (CARDIA)AnswerDate RecordedHow hard is it for you to pay for the very basics like food, housing, medical care, and heating?Somewhat hard 03/11/2023HQ-2AnswerDate RecordedPatient Health Questionnaire-2 Score0 03/25/2025Fin[facility] [place] of Occupational Health - Occupational Stress QuestionnaireAnswerDate [...] steady place to sleep or slept in [facility] (including now)?No03/11/2023Estimated Date of GrgfrwicAypcpuxuAam82/27/2026ased on last menstrual period of 10/30/2024Sex and Gender InformationValueDate RecordedSex Assigned at UibepAwdpwk15/01/2023 1:10 PM EDTLegal LplDlpdpt98/15/2023 6:51 PM EDTGender WabbxvuyPzjhdh36/01/2023 1:10 PM EDTSexual OjgsqnrwzgqIxyfyaxf02/01/2023 1:10 PM EDTdocumented as of this encounter Last Filed Vital Signs Vital SignReadingTime TakenCommentsBlood Jlwescjg080/8012 2:46 PM EST 134/84- recheckPulse--Temperature--Respiratory Rate--Oxygen Saturation--Inhaled Oxygen Concentration--Zliahp75.7 kg (171 lb 6.4 oz)05/18/2025 2:46 PM [...] unresponsive hypoglycemia cholecalciferol (Vitamin D-3) 1.25 MG (98508 UT) capsule every week Continuous Blood Gluc [...] UNITS DAILY Insulin Disposable Pump (Omnipod 5 LrnW5W2 Pods Gen 5) misc 1 each, Subcutaneous, [...] TO CHECK GLUCOSE 4 TIMES DAILY Vit w/Ro-Wbljsxitb-KO (PNV PO) Take by mouth promethazine (PHENERGAN) [...] Celiac disease in pediatric patient ([facility]) 05/23/2016 Generalized anxiety disorder 01/01/2017 Mild intermittent asthma ([facility]) 05/23/2016 Panic disorder without agoraphobia 01/01/2017 Biliary dyskinesia 11/08/2022 Type 1 diabetes mellitus without complications ([facility]) 02/04/2023 Type 1 diabetes mellitus with [...] nursing note reviewed. Exam conducted with a assurance engineer present. Vitals: Estimated body mass index is 35.82 kg/m?? as calculated from the following: Height as of 03/25/25: 4' 10 . Weight as of this encounter: 171 lb 6.4 oz. BP: Patient's last menstrual period was 10/30/2024. Assessment/Plan ICD-10-CM 1. 28 weeks gestation of ([facility]) Z3A.28 POCT urinalysis dipstick manually resulted 2. Type 1 diabetes mellitus during , antepartum ([facility]) O24.019 3. Third trimester ([facility]) Z34.93 POCT urinalysis dipstick manually resulted Assessment/Plan [...] Plan of Treatment DateTypeDepartmentCare Team (Latest Contact Info)Ylubkveuvqt28/22/2025 3:30 PM ESTRoutine [facility] [address] [place] [address] Kolton Cao DO [address] [place] [address] 06/16/2025 4:00 PM ESTRoutine [facility] [address] [place] [address] Dixie Gan, INDUSTRIAL PRODUCTION MANAGER [address] [place] [address] documented as of this encounter Goals GoalPatient Goal TypeAssociated ProblemsRecent ProgressPatient-Stated?Author Reminders Care PlanOB RemindersNoOpen Scheduling, Backgrounddocumented as of this encounter Procedures Procedure NamePriorityDate/TimeAssociated DiagnosisCommentsPOCT URINALYSIS GXMOPCQOXwtfdui79/09/2025 2:51 PM EST 28 weeks gestation of ([facility]) Third trimester ([facility]) documented in this encounter Results * [...] / LateralityCollection Method / VolumeCollection Time Received UiygWusze15/09/2025 2:51 PM EST Narrative Authorizing ProviderResult TypeResult StatusBon [facility] TEST ENTER/EDIT ORDERABLESFinal Result documented in this encounter Visit Diagnoses Diagnosis 28 weeks gestation of ([facility]) Type 1 diabetes mellitus during , antepartum ([facility]) Third trimester ([facility]) state, incidental documented in this encounter Additional Health Concerns Active ProblemsNoted DateDiagnosed DateOB Oxckkzufo55/24/2025 documented as of this encounter Care Teams Team MemberRelationshipSpecialtyStart DateEnd Date Dru Rodriguez DO [address] [place] [address] PCP - GeneralFamily Medicine10/22/22 Dru Rodriguez DO [address] [place] [address] PCP - Medical [place] Spdaselsdr16/1/2312documented as of this encounter
--- NOTE | 2025-05-21 | US_ITS ---
[place] [id number] Patient Name: KAELYN BANKS MRN: [id number] date: 2000 Sex: F Assigned Patient Location: Current Patient Location: Accession/Order Number: [id number] Exam Date: 05/21/2025 19:56 Report Date: 05/21/2025 20:39 At the request of: BRYANT PULLIAM DO Procedure: US OB BPP w non-stress Ultrasound biophysical profile INDICATION: Type 1 diabetes during COMPARISON: 05/14/2025 FINDINGS IMPRESSION: SINGLE LIVE INTRAUTERINE IN CEPHALIC POSITION. HEART RATE 138 BPM. AMNIOTIC FLUID INDEX 12.9 CM. BIOPHYSICAL PROFILE SCORE 8/8 Impression dictated by: Kaveh Romeo M.D. 05/21/2025 8:39 PM Dictation Location: [place] [address] Electronically authenticated by: [id number] Y Date: 05/21/2025 20:39
--- OUTSIDE RECORDS SUMMARY | 2025-05-21 18:43 | XMS_ITS | Encounter Summary ---
Author Organization [facility] Address [address] [place] [address] Care Team Providers Care Farmworker Chicken Farm Name Role Phone Joaquín Rodriguez DO Primary Care Provider [phone] Joaquín Rodriguez DO Unavailable [phone] Encounter Details DateTypeDepartmentCare Team (Latest Contact Info)Zuqumpfvohl70/05/2025Clinisync Result Encounter [facility] External Department Unsolicited Bryant Cao DO [address] [place] [address] Social History Tobacco UseTypesPacks/DayYears UsedDateSmoking Tobacco: NeverSmokeless [...] relatives?Twice a week03/11/2023How often do you attend pentecostalism or faith services?1 to 4 times per year03/11/2023o you belong to any clubs or organizations such as pentecostalism groups, unions, fraternal or athletic laura ups, or school groups?No03/11/2023How often do you attend meetings of the clubs or organizations you belong to?Never03/11/2023re you , , , , never , or living with a partner?Roblqfh1603/11/2023 AUDIT-CAnswerDate RecordedQ1: How often do you have a drink containing alcohol? Monthly or less03/11/2023Q2: How many drinks containing alcohol do you have on a typical day when you are drinking?3 or Q3: How often do you have six or more drinks on one occasion?Less than jjjtjzm2403/11/2023Overall Financial Resource Strain (CARDIA)AnswerDate RecordedHow hard is it for you to pay for the very basics like food, housing, medical care, and heating?Somewhat hard 03/11/2023HQ-2AnswerDate RecordedPatient Health Questionnaire-2 Score0 03/25/2025Fin[facility] [place] of Occupational Health - Occupational Stress QuestionnaireAnswerDate [...] slept in ashelter (including now)?No03/11/2023Estimated Date of ZqeouxdoKzpmzezmKqr53/27/2026ased on last menstrual period of 10/30/2024Sex and Gender InformationValueDate RecordedSex Assigned at AelcnTyfkwf63/01/2023 1:10 PM EDTLegal OdlCmmfzb88/15/2023 6:51 PM EDTGender UgeglqjwCqpmhk33/01/2023 1:10 PM EDTSexual AwlsisesnsoMcuivfja88/01/2023 1:10 PM EDTdocumented as of this encounter Plan of Treatment DateTypeDepartmentCare Team (Latest Contact Info)Xuokremhpfg63/22/2025 3:30 PM ESTRoutine [facility] PORT[facility]O [address] [place] [address] Bryant Cao, [address] [place], [place] [address] 06/16/2025 4:00 PM ESTRoutine NOMAislinn PORTILLO [address] [place] [address] Dixie Gan, RETAIL PRICING COORDINATOR [address] [place] [address] documented as of this encounter Goals GoalPatient Goal TypeAssociated ProblemsRecent ProgressPatient-Stated?Author Reminders Care PlanOB RemindersNoOpen Scheduling, Backgrounddocumented as of this encounter Procedures Procedure NamePriorityDate/TimeAssociated DiagnosisCommentsUS OB BPP W NON-FULSYI0305/14/2025 7:38 PM EST documented in this encounter Results * US OB BPP W NON-STRESS (05/14/2025 7:38 PM EST)Anatomical Region LateralityModalityOtherSpecimen (Source)Anatomical Location / Laterality Collection Method / VolumeCollection TimeReceived Time05/14/2025 7:38 PM EST Narrative 05/14/2025 7:40 PM EST [facility] ?[address] ? [place] [address] ? Ultrasound Report ? Signed ? Patient: KAELYN SHAW ?MR#: [id number] ?? : 2000 ?Acct:[id number] ?? Age/Sex: 25 / F ?ADM Date: 05/14/25 ?? Loc: [facility] ??250-1 ? Attending Dr: Bryant Cao D.O. ? Ordering Physician: Bryant Cao D.O. ?? Date of Service: 05/14/25 ?? Procedure(s): US OB BPP w non-stress ?? Accession Number(s): [id number] ? cc: Bryant Cao D.O.; JOAQUÍN RODRIGUEZ ? [facility] ? [address] ? [place] [address] ? Patient Name: ?? THOMASJYOTI SHAW ? MRN: [facility]:[id number] ? date: 2000 ?Sex: F ?? Assigned Patient Location: ?? Current Patient Location: ?? Accession/Order Number: [id number] ?? Exam Date: 05/14/2025 ??18:49 ?Report Date: 05/14/2025 ??19:38 ? At the request of: ?? BRYANT ??KILEY ??DO ? Procedure: ??US OB BPP w non-stress ? Ultrasound biophysical profile ? INDICATION: BPP ? COMPARISON: None ? FINDINGS IMPRESSION: SINGLE LIVE INTRAUTERINE IN CEPHALIC POSITION. ? HEART RATE 145 BPM. ??AMNIOTIC FLUID INDEX 13.3 CM. ??BIOPHYSICAL PROFILE ?? SCORE 8/8 ? Impression dictated by: Kaveh Romeo M.D. ??05/14/2025 7:38 PM ? Dictation Location: RADIO-PC-29 ? Electronically authenticated by: [id number] ??Y ?? Date: 05/14/2025 ??19:38 ? Dictated By: ?Kaveh Romeo M.D. ? Signed By: ?05/14/25 1940 ? DD/ 1938 ? TD/TT: ? Project Manager [employer]: Procedure Note Radiology, Radiologist, - 05/14/2025 [place] [address] Ultrasound Report Signed Patient: KAELYN SHAW#: [id number] : 2000Acct:[id number] Age/Sex: 25 / FADM Date: 05/14/25 Loc: [facility] 250-[address]: Bryant Cao D.O. Ordering Physician: Bryant Cao D.O. Date of Service: 05/14/25 Procedure(s): US OB BPP w non-stress Accession Number(s): [id number] cc: Bryant Cao D.O.; JOAQUÍN RODRIGUEZ [place] [id number] Patient Name: KAELYN SHAW MRN: [id number] date: 2000 Sex: F Assigned Patient Location: US Current Patient Location: US Accession/Order Number: [id number] Exam Date: 05/14/2025 18:49 Report Date: 05/14/2025 19:38 At the request of: BRYANT CAO DO Procedure: US OB BPP w non-stress Ultrasound biophysical profile INDICATION: BPP COMPARISON: None FINDINGS IMPRESSION: SINGLE LIVE INTRAUTERINE IN CEPHALICPOSITION. HEART RATE 145 BPM. AMNIOTIC FLUID INDEX 13.3 CM. BIOPHYSICALPROFILE SCORE 8/8 Impression dictated by: Kaveh Romeo M.D. 05/14/2025 7:38 PM Dictation Location: [place] [address] Electronically authenticated by: [id number] Y Date: 9:38 Dictated By: Kaveh Romeo M.D. Signed By:05/14/251939 DD/ 37 TD/TT: Project Manager [employer]: Authorizing ProviderResult TypeResult StatusCorey Kiley DOCLINISYNC IMAGINGFinal Result documented in this encounter Visit Diagnoses Not on filedocumented in this encounter Additional Health Concerns Active ProblemsNoted DateDiagnosed DateOB Ihddfyhpv83/24/2025 documented as of this encounter Care Teams Team MemberRelationshipSpecialtyStart DateEnd Date Joaquín Rodriguez DO [address] [place] [address] PCP - GeneralFamily Medicine10/22/22 Joaquín Rodriguez DO [address] [place] [address] PCP - Medical [place]amm[place] Caqmfbbxth13/1/2312documented as of this encounter
--- OUTSIDE RECORDS SUMMARY | 2025-05-21 18:43 | XMS_ITS | Encounter Summary ---
Author Organization [facility] Address [address] [place] [address] Care Team Providers Care Teaching Associate Name Role Phone LizzDru lam DO Primary Care Provider [phone] RonySimon lozadaew April DO Unavailable [phone] Encounter Details DateTypeDepartmentCare Team (Latest Contact Info)Cxiqgzbcict62/09/2025amboo flowsheet LALITA [place] OBGYLarisa [address] [place] [address] Katharine Cummins PA [address] [place], [facility]11 Social History Tobacco UseTypesPacks/DayYears UsedDateSmoking Tobacco: NeverSmokeless [...] week03/11/2023How often do you attend sabianist or holiness services?1 to 4 times per year03/11/2023o you belong to any clubs or organizations such as sabianist groups, unions, fraternal or athletic laura ups, or school groups?No03/11/2023How often do you attend meetings of the clubs or organizations you belong to?Never03/11/2023re you , , , , never , or living with a partner?Leraces6203/11/2023 AUDIT-CAnswerDate RecordedQ1: How often do you have a drink containing alcohol? Monthly or less03/11/2023Q2: How many drinks containing alcohol do you have on a typical day when you are drinking?3 or Q3: How often do you have six or more drinks on one occasion?Less than jgxests2903/11/2023Overall Financial Resource Strain (CARDIA)AnswerDate RecordedHow hard is it for you to pay for the very basics like food, housing, medical care, and heating?Somewhat hard 03/11/2023HQ-2AnswerDate RecordedPatient Health Questionnaire-2 Score0 03/25/2025[facility] [place] of Occupational Health - Occupational Stress QuestionnaireAnswerDate [...] slept in ashelter (including now)?No03/11/2023Estimated Date of UqonafvaUbcvqertAax60/27/2026ased on last menstrual period of 10/30/2024Sex and Gender InformationValueDate RecordedSex Assigned at XjeqpNfnurn25/01/2023 1:10 PM EDTLegal DraJeljjd82/15/2023 6:51 PM EDTGender BjrtsosbNqrrdl26/01/2023 1:10 PM EDTSexual ZddknsfqrsoDtenrjwz82/01/2023 1:10 PM EDTdocumented as of this encounter Plan of Treatment DateTypeDepartmentCare Team (Latest Contact Info)Rjqhsurdnly54/22/2025 3:30 PM ESTRoutine [facility] PORTILLO [address] [place] [address] Kolton Cao DO [address] [place] [address] 06/16/2025 4:00 PM ESTRoutine NOMAislinn PORTILLO [address] [place] [address] Dixie Gan, FRIT COATER [address] [place] [address] documented as of this encounter Goals GoalPatient Goal TypeAssociated ProblemsRecent ProgressPatient-Stated?Author Reminders Care PlanOB RemindersNoOpen Scheduling, Backgrounddocumented as of this encounter Visit Diagnoses Not on filedocumented in this encounter Additional Health Concerns Active ProblemsNoted DateDiagnosed DateOB Pmswqjdbd03/24/2025 documented as of this encounter Care Teams Team MemberRelationshipSpecialtyStart DateEnd Date Dru Rodriguez DO [address] [place] [address] PCP - GeneralFamily Medicine10/22/22 Dru Rodriguez DO [address] [place] [address] PCP - Medical [place] Byjyyijwzq45/1/2312documented as of this encounter
--- OUTSIDE RECORDS SUMMARY | 2025-05-21 18:43 | XMS_ITS | Clinical Summary ---
Author Organization [facility] tem Address [id number] [address] [place] [address] Care Team Providers Care Peg Driver Name Role Phone JenniferDru April MUNGUIA Primary Care Provider [phone] Allergies Active AllergyReactionsCriticalityNoted YdosAuquxtoiFejubhiyfml94/14/2016 Has since taken without reaction Medications * [...] by mouth in the morning. 90 tablet tive insulin lispro SUBCUTANEOUS PUMP (HumaLOG) 100 unit/mL patient supplied pump Patient to self-manage pump according to the following the above parameters 02/22/2025tive pen needle, diabetic (BD ULTRA-FINE AMINA PEN NEEDLE) 32 gauge x 5/32 needle Use to inject insulin 5 times daily 100 each tive insulin lispro (HumaLOG) 100 unit/mL insulin pen Inject prior to meals, as calculated by pump setting doses. Up to 50 units daily 15 mL tive Lactobac no.41/Bifidobact no.7 (PROBIOTIC-10 ORAL) Take by [...] Use to treat unresponsive hypoglycemia 2 each 108/11/20384906/22/2024Discontinued(Stop Taking at Discharge) Active Problems Patient Care [...] with hyperglycemia, with long-term current use of tbeqyrj8402/17/2025Type 1 diabetes mellitus during in third /11/2025DKA, type 1, not at goal 01/06/2018Diabetic ketoacidosis associated with type 1 diabetes mellitus 02/22/2017Acute renal laotsjtsnpjcg99/11/2017Mechanical breakdown of insulin pump02/18/2017Generalized anxiety ejjiasjl76/25/2017Panic disorder without /25/2017DKA, type Mild intermittent nhcrgu6005/23/2016 Estimated Date of JegyuldeHsyqfyhyRsi64/27/2026Based on last menstrual period of 10/30/2024 Resolved Problems ProblemNoted DateDiagnosed DateResolved DateCeliac disease in pediatric patient Encounters DateTypeDepartmentCare XxpxEjmkroiascb37/08/2025 1:00 PM ESTTelemedicine Maternal- Medicine at [facility] [address] [place] [address] Rosy Arredondo, ANDRE Type 1 diabetes mellitus during in third trimester (Primary Dx) 05/17/2025Telephone Maternal- Medicine at [facility] [address] [place] [address] Debby Garcia, BRANDT 05/17/20252957Hlhvjd58/05/2025Telephone Maternal- Medicine at [facility] [address] [place] [address] Katie Orozco LD 05/13/2025 8:33 AM EST - 05/13/2025 11:59 PM ESTHospital Encounter [facility] US Imaging [address] [place] [address] Type 1 diabetes mellitus during in second trimester Discharge Disposition: Home05/13/2025Orders Only Maternal- Medicine at [facility] [address] [place] [address] Becca Natarajan, BRANDT Type 1 diabetes mellitus during in second trimester (Primary Dx) 05/13/20257446Lgpezi22/02/2025Orders Only Maternal- Medicine at [address] [place] [place] [address] Ivory Quinones MD 05/10/2025Orders Only Maternal- Medicine at [facility] [address] [place] [address] Clarita Mchugh, DIGITAL PRODUCER 05/07/2025Telephone Maternal- Medicine at [facility] [address] [place] [address] Clarita Mchugh, DIGITAL PRODUCER 05/05/2025Telephone Maternal- Medicine at [facility] [address] [facility] [place] [address] Yue Bullock, BRANDT 05/04/2025Telephone Maternal- Medicine at [facility] [address] [facility] [place] [address] Daniel Walker 05/04/2025Orders Only Maternal- Medicine at [facility] [address] [facility] [place] [address] Rosy Arredondo PA-C 05/04/2025Orders Only [facility] - Labor [address] [facility] [place] [address] Rosy Arredondo PA-C 05/03/2025Orders Only Maternal- Medicine at [facility] [address] [facility] [place] [address] Debby Garcia RN 04/27/2025Documentation Maternal- Medicine at [facility] [address] [facility] [place] [address] Yue Bullock RN 04/26/2025Telephone Maternal- Medicine at [facility] [address] [facility] [place] [address] Yue Bullock, BRANDT 04/26/2025Remote Patient Monitoring Maternal- Medicine at [facility] [address] [place] [address] Ivory Quinones MD Type 1 diabetes mellitus during in second trimester [O24.012] (Primary Dx)04/20/2025 12:29 PM EST - 04/22/2025 2:20 PM ESTHospital Encounter [facility] - GEN 3 Antepartum [address] [place] [address] Criselda Green DO Uncontrolled type 1 diabetes mellitus with hyperglycemia, with long-term current use of insulin ([facility]) Discharge Disposition: Left Against Medical Advice or Discontinued Care 04/20/2025 10:30 AM ESTTelemedicine Maternal- Medicine at [facility] [address] [place] [address] Rosy Arredondo, ANDRE Type 1 diabetes mellitus during in second trimester (Primary Dx) 04/20/2025Orders Only Maternal- Medicine at [facility] [address] [place] [address] Clarita Mchugh [facility] 04/20/20254941Xtcyoc89/07/2025 1:53 PM EST - 04/16/2025 11:59 PM ESTHospital Encounter [facility] - Cardiovascular [address] [place] [address] Type 1 diabetes mellitus complicating in second trimester, antepartum Discharge Disposition: Home04/16/2025Results Follow-Up Maternal- Medicine at [facility] [address] [place] [address] Georgiana Esteban MD Echo complete W/O cbspmorx61/06/2399Qtvuts52/06/2025Orders Only Maternal- Medicine at [facility] [address] [place] [address] Katharine Howard LPN Type 1 diabetes mellitus during in second trimester (Primary Dx) 04/14/2025 8:00 AM EST - 04/14/2025 11:59 PM ESTHospital Encounter [facility] - MFM US Imaging [address] [place] [address] Encounter for other screening follow-up Discharge Disposition: Home04/12/2025 10:00 AM ESTTelemedicine Maternal- Medicine at [facility] [address] [place] [address] Poncho Jeffrey MD Type 1 diabetes mellitus during in second trimester (Primary Dx); Type 1 diabetes mellitus during in first hqnehfcqd44/03/2025Travel 04/08/2025 1:00 PM EDTTelemedicine Maternal- Medicine at [facility] [address] [facility] [place] [address] Georgiana Esteban MD 22 weeks gestation of (Primary Dx); Type 1 diabetes mellitus complicating in second trimester, antepartum; Asthma complicating in second vvecfgsfn93/30/3419Booszk73/29/2025 Telephone Maternal- Medicine at [facility] [address] [facility] [place] [address] Carolann Urbina, BRANDT 04/06/2025Telephone Maternal- Medicine at [facility] [address] [facility] [place] [address] Carolann Urbina, BRANDT 04/05/2025Orders Only Maternal- Medicine at [facility] [address] [place] [address] Clarita Mchugh CMA 03/29/2025 10:30 AM EDTTelemedicine Maternal- Medicine at [facility] [address] [facility] [place] [address] Rosy Arredondo, ANDRE Type 1 diabetes mellitus during in second trimester (Primary Dx) 03/29/20259961Xofydt35/20/2025Orders Only Maternal- Medicine at [facility] [address] [facility] [place] [address] Lula Fernandez, BRANDT 03/29/2025Orders Only Maternal- Medicine at [facility] [address] [facility] [place] [address] Debby Garcia, BRANDT 03/24/2025Telephone Maternal- Medicine at [facility] [address] [facility] [place] [address] Maritza Milian 03/17/2025Telephone Maternal- Medicine at [facility] [address] [place] [address] EduardoMaritza williamson 03/16/2025 7:57 AM EDT - 03/16/2025 11:59 PM EDTHospital Encounter [facility] - Ultrasound [address] [place] [address] Type 1 diabetes mellitus during in first trimester Discharge Disposition: Home03/15/2025 3:30 PM EDTTelemedicine Maternal- Medicine at [place] [address] [place] [address] Rosy Arredondo PA-C Type 1 diabetes mellitus during in second trimester (Primary Dx) 03/15/2025Telephone Maternal- Medicine at [address] [address] Debby Garcia RN 03/15/20252756Knbcuk91/06/2025Orders Only Maternal- Medicine at [address] [place] [address] Debby Garcia RN 03/09/2025Orders Only Maternal- Medicine at [address] [address] Yahaira Miller MD 03/09/2025Orders Only Maternal- Medicine at [address] [place] [address] Yue Bullock RN 03/09/2025Remote Patient Monitoring Maternal- Medicine at [address] [address] Yahaira Miller MD Pre-existing type 1 diabetes mellitus with hyperglycemia during in second trimester ([facility]) (Primary Dx)03/08/2025Orders Only Maternal- Medicine at [address] [place] [address] Clarita Mchugh, DIGITAL PRODUCER 03/03/2025 10:30 AM EDTTelemedicine Maternal- Medicine at [facility] [address] [facility] [place] [address] Carin Mathur, ANTHONY-SIGNAL ENGINEER Uncontrolled type 1 diabetes mellitus with hyperglycemia, with long-term current use of insulin ([facility] (Primary Dx)03/03/2025Telephone Maternal- Medicine at [facility] [address] [place] [address] Lula Fernandez, RN 03/03/20254313Jicuwz82/24/2025Orders Only Maternal- Medicine at [facility] [address] [place] [address] Lula Fernandez, RN 02/24/2025Telephone [facility] [address] [place] [address] Radha Bruno, BRANDT Outgoing Call02/22/2025Orders Only Maternal- Medicine at [facility] [address] [place] [address] Rosy Arredondo PA-C 02/22/2025Orders Only Maternal- Medicine at [facility] [address] [place] [address] Clarita Mchugh, DIGITAL PRODUCER 02/19/2025Orders Only Maternal- Medicine at [facility] [address] [place] [address] Clarita Mchugh, DIGITAL PRODUCER 02/17/2025 6:11 PM EDT - 02/22/2025 3:30 PM EDTHospital Encounter [facility] - GEN [address] [facility] [place] [address] Annamarie Dave MD Uncontrolled type 1 diabetes mellitus with hyperglycemia, with long-term current use of insulin (CMS-HCC) Discharge Disposition: Homefrom Last 3 Months Immunizations ImmunizationAdministration DatesNext DueCOVID-19, mRNA, LNP-S, PF, 30mcg/0.3mL Dose03/21/2021,02/28/2021 Family History Medical HistoryRelationNameCommentsAsthmaFatherDiabetesMaternal GrandmotherDrug abuseMotherColon cancerPaternal GrandfatherDiabetesSisterHeart murmurSister Breast cancerNeg HxCancerNeg HxHypertensionNeg HxOvarian cancerNeg HxPancreatic cancerNeg HxProstate cancerNeg HxStrokeNeg HxUterine cancerNeg HxRelationName StatusCommentsFatherAliveMaternal GrandmotherMotherDeceasedPaternal Grandfather DeceasedSister Social History Tobacco UseTypesPacks/DayYears UsedDateSmoking Tobacco: NeverSmokeless Tobacco: Never Tobacco Cessation:Counseling Given: Not Answered Alcohol UseStandard Drinks/WeekCommentsYes0 (1 standard drink = 0.6 oz pure alcohol)[facility] UtilitiesAnswerDate RecordedIn the past 12 months has the GMG33, gas, oil, or water Utility [employer] threatened to shut off services in your [...] care, and heating?Not hard at all02/17/2025PHQ-2AnswerDate RecordedTotal Dwvqm27106/12/2023[facility] [place] [facility] Occupational Health - Occupational Stress [...] a household?No02/17/2025hildcareAnswerDate RecordedDo problems getting child care centre director make it difficult for you to [...] and direction in my life.Agree02/17/2025Estimated Date of VbspbbjiXyaxljlhFei23/27/2026ased on last menstrual period of 10/30/2024Sex and Gender InformationValueDate RecordedSex Assigned at BbpruKmbisx16/22/2025 1:51 AM EDTLegal SexFemale 01/13/2015 11:58 AM EDTGender GuwfcsglKratuy05/22/2025 1:51 AM EDTSexual OrientationNot on file Last Filed Vital Signs Vital SignReadingTime TakenCommentsBlood Jbefhxnp880/6004/22/2025 8:44 AM EST Uzklf689804/22/2025 8:44 AM IIVMvnuqentflh73.7 ??C (98.1 ??F)04/22/2025 8:44 AM ESTRespiratory Jgtj664306/22/2024 8:44 AM ESTOxygen Mvbdsutefi91%04/21/2025 7:24 PM ESTInhaled Oxygen Concentration--Znlwor29.1 kg (161 lb 2.5 oz)04/20/2025 12:30 PM FZLEhasbs463.3 cm (4' 9.99 )02/17/2025 6:00 PM EDTBody Mass Index33.69 02/17/2025 6:00 PM EDT Plan of Treatment DateTypeDepartmentCare Team (Latest Contact Info)Pxhrjphkmwp14/02/2026 3:30 PM ESTAppointment [facility] US Imaging [address] [place] [address] Health MaintenanceDue DateLast DoneCommentsDiabetic Ophthalmology Exam2001 Diabetic Foot Exam2019Chlamydia Rlmlondbw562Adult BMI Follow Up Planepression Mpzbgdgtd904COVID- 19 Vaccine ( season)/11/2021, 03/21/2021, 1RSV ( or age 60+ yrs) (1 - Risk 1-dose series)6Adult BMI Nnvwvtpus91/04/2025Tobacco Lhdilqtws86/Pap Smear /02/2025, 2DTaP,Tdap and Td Vaccines (8 - Td or Tdap) , 03/02/2013, 03/18/2008, Additional history existsInfluenza WhnoxdqZzuhirxwg18/08/2025, 03/18/2024, 06/12/2023, Additional history exists Medical Devices ImplantedTypeAreaManufacturerDevice IdentifierShelf Expiration DateModel / Serial / LotNexplanonDescription: control implant in right upper arm Procedures Procedure NamePriorityDate/TimeAssociated DiagnosisCommentsUS [facility] OB FOLLOW-UP, 1 SQDFOSpxspea78/04/2025 9:12 AM EST Type 1 diabetes mellitus during in second trimester EXTRA TUBES SST SLYJlcszsv72/13/2025 9:13 AM EST EXTRA TUBES LAVENDER WVIQdkrtqf11/13/2025 9:13 AM EST EXTRA TUBES PST MMEYpgzxxr73/13/2025 9:13 AM EST EXTRA NBEEPFvwloth14/13/2025 9:13 AM EST BEDSIDE WEGBKFAVsairgc28/12/2025 7:17 PM EST BEDSIDE XQNBTZJOsskonz04/12/2025 3:56 PM EST BEDSIDE GBQPXFSRzchmsf84/12/2025 3:41 PM EST BEDSIDE TVIMBTKTshxhfk42/12/2025 6:13 AM EST BEDSIDE KOKLVCKJshuoqs39/11/2025 7:37 PM EST BEDSIDE KNJGQPEYgvjjkw56/11/2025 7:18 PM EST REPEATED LKZBWVwifpen59/11/2025 1:14 PM EST T4, FREEAdd-On04/20/2025 1:14 PM EST TSHAdd-On04/20/2025 1:14 PM EST ACETONE,(BETAHYDROXYBUTYRATE, KETONE) QUANTITATIVE CXUMZZqmtpmp80/11/2025 1:14 PM EST CBC WITH AUTO DGHMDFWRCQLXKamqemx61/11/2025 1:14 PM EST COMPREHENSIVE METABOLIC RIDSGImghwxk2025 1:14 PM EST ECHO COMPLETE WO AWOEHCKARypsizu57/07/2025 2:29 PM EST Type 1 diabetes mellitus complicating in second trimester, antepartum US MFM OB FOLLOW-UP, 1 ITCFWDqpirno76/05/2025 9:34 AM EST Encounter for other screening follow-up ALPHA YFAXFJEFLJFKjpvgob36/30/2025 10:01 AM EDT Encounter for supervision of normal , unspecified, second trimester B-TYPE NATRIURETIC BMOTRGZLquoweg90/30/2025 10:01 AM EDT Type 1 diabetes mellitus during in second trimester EXTRA TUBES LAVENDER NXGCctgpmz45/30/2025 9:56 AM EDT Encounter for supervision of normal , unspecified, second trimester Uncontrolled type 1 diabetes mellitus with hyperglycemia, with long-term current use of insulin ([facility] Type 1 diabetes mellitus during in second trimester EXTRA BENKDSprdgts54/30/2025 9:56 AM EDT Encounter for supervision of normal , unspecified, second trimester Uncontrolled type 1 diabetes mellitus with hyperglycemia, with long-term current use of insulin ([facility] Type 1 diabetes mellitus during in second trimester HEMOGLOBIN H8HMhlkngx35/30/2025 9:56 AM EDT Uncontrolled type 1 diabetes mellitus with hyperglycemia, with long-term current use of insulin ([facility]) MFM COMPREHENSIVE ANATOMIC CVKHIYXieemci71/07/2025 9:52 AM EDT Type 1 diabetes mellitus during in first trimester BEDSIDE VLJTUUJUjpihmi32/15/2025 1:59 PM EDT BEDSIDE ZDYXUDVSuvqrdn01/15/2025 12:57 PM EDT BEDSIDE BYDOFMNFljivgg06/15/2025 11:44 AM EDT BEDSIDE YLZVLXJLzanpdg08/15/2025 11:19 AM EDT BEDSIDE ESHAPDRInsdvgs18/15/2025 10:59 AM EDT BEDSIDE BHAJHWIGgwhzdz82/15/2025 9:11 AM EDT BEDSIDE CWBZESUVaiquqe74/15/2025 5:47 AM EDT BEDSIDE SZIOMNKKjqxiah73/15/2025 3:08 AM EDT BEDSIDE ZVPVEKQWkxcgcs43/15/2025 12:37 AM EDT BEDSIDE GJOVWCJSjxdday17/15/2025 12:16 AM EDT BEDSIDE JPFKWVBDtnprnd18/14/2025 9:46 PM EDT BEDSIDE UIISQAHUqcpjba05/14/2025 9:25 PM EDT BEDSIDE DEZJVJYJkkgbiu24/14/2025 7:21 PM EDT BEDSIDE JDDPCSLOykwupo91/14/2025 6:15 PM EDT BEDSIDE GISHTCCRjoghnw30/14/2025 5:42 PM EDT BEDSIDE HTGHNLFAhpmrdb93/14/2025 5:24 PM EDT BEDSIDE QBXCYZHClocuwx28/14/2025 5:08 PM EDT BEDSIDE VZMNURARsotwva47/14/2025 3:19 PM EDT BEDSIDE TYBZGJHKajrkvu02/14/2025 2:49 PM EDT BEDSIDE NHHRZJYOfruvtf83/14/2025 1:40 PM EDT BEDSIDE HXEHTMAAcxnkbl85/14/2025 10:19 AM EDT BEDSIDE MVZCTSABgeotvh40/14/2025 9:08 AM EDT BEDSIDE FLSCZLBCisakyi15/14/2025 6:15 AM EDT BEDSIDE NFNRBNLUcyskrv91/14/2025 3:17 AM EDT BEDSIDE FCVCRQTKzxogbs48/14/2025 12:03 AM EDT BEDSIDE IPTWHXZDqvdrii91/13/2025 9:10 PM EDT BEDSIDE DHLRMMQZmfvgak96/13/2025 7:46 PM EDT BEDSIDE CDSRELLUilhanz74/13/2025 7:27 PM EDT BEDSIDE FZDKRLTHwbbqiz10/13/2025 6:17 PM EDT BEDSIDE AVFTXFUGpdbgdr29/13/2025 5:11 PM EDT BEDSIDE VOGTAEZOftfflq02/13/2025 2:22 PM EDT BEDSIDE CJMPZERNqgvgio40/13/2025 1:21 PM EDT BEDSIDE VLZVXGFTtpdzzf94/13/2025 10:24 AM EDT BEDSIDE LKXHVNCPdspets65/13/2025 9:12 AM EDT BEDSIDE PRBXRHDYcnsnkq54/13/2025 8:22 AM EDT BEDSIDE TKNWCWUYbolykf78/13/2025 7:40 AM EDT BEDSIDE IERLPSRDpobwzu85/13/2025 6:01 AM EDT BEDSIDE KHRMNIZCqcyvzx79/13/2025 2:57 AM EDT BEDSIDE WLMOSNGNsywvsa34/12/2025 11:57 PM EDT BEDSIDE VVDNPVWTgxogqe87/12/2025 9:25 PM EDT BEDSIDE DZWTLYZDobtqem31/12/2025 8:58 PM EDT BEDSIDE EHQSRBZEeciggv29/12/2025 6:52 PM EDT BEDSIDE RIKOYSZRvgrdsw37/12/2025 5:51 PM EDT BEDSIDE AEDBSGKSohlcqc28/12/2025 2:42 PM EDT BEDSIDE MSTGJUTScpredm10/12/2025 1:38 PM EDT BEDSIDE HYPYNKIFemuvlo00/12/2025 1:16 PM EDT BEDSIDE ROXBFBVRgalaio03/12/2025 12:55 PM EDT BEDSIDE QMWMAPCDweewst92/12/2025 12:34 PM EDT BEDSIDE FRJNUWEZuemdfj58/12/2025 9:55 AM EDT BEDSIDE XJBRFJAQcmwyox94/12/2025 8:53 AM EDT PROTEIN, URINE, 24 LGFJAfhitpr76/12/2025 6:57 AM EDT BEDSIDE QLGCEFHYoqctmd34/12/2025 5:27 AM EDT BEDSIDE BTNFIHKEsechvc32/12/2025 4:51 AM EDT BEDSIDE HVTRBDHAjnhahu61/12/2025 3:14 AM EDT BEDSIDE LGPEEPIEafrujy02/12/2025 12:01 AM EDT PAP XDBCTOkmdoeq43/24/2022 10:35 AM EDT Cervical smear, as part of routine gynecological examination CHLAMYDIA/GC BY PCR OMAIRA UABBClcdjgb75/11/2022 6:33 PM EDT Menorrhagia with irregular cycle Metrorrhagia DUB (dysfunctional uterine bleeding) from Last 3 Months or Most Recently Relevant to Health Maintenance Results * US MFM OB FOLLOW-UP, 1 FETUS (05/13/2025 9:12 AM EST) Only the most recent of3 resultswithin the time period is included. Anatomical RegionLateralityModalityOB-GYNUltrasoundSpecimen (Source)Anatomical Location / LateralityCollection Method / VolumeCollection TimeReceived Time 05/13/2025 8:44 AM EST Narrative 05/13/2025 10:52 AM EST NAME: ??DARREN ART : 2000 SEX: F Accession Number: [id number] ORDERING PHYSICIAN: IVORY QUINONES REFERRING PHYSICIAN: BRYANT PULLIAM Coding Procedures ? 79835: Ultrasound, uterus, real time with image documentation, [...] (oz) ? 10 oz EFW by: ?Hadlock (FRD-WY-DG-FL) Extended Tibia ??45.1 mm 27w 4d 40% Randolph Dowel Machine Operator ? 2.4 mm CM ? 6.4 mm [...] MVP measures 4.6 cm. Recommendations Please see [facility] recommendations from prior clinical and/or [...] ART : 2000 SEX: F Accession Number: [id number] ORDERING PHYSICIAN: IVORY QUINONES REFERRING PHYSICIAN: BRYANT PULLIAM Coding Procedures 31239: Ultrasound, uterus, real time with image documentation, [...] EFW (oz) 10 oz EFW by: Hadlock (ESG-IE-TV-FL) Extended Tibia 45.1 mm 27w 4d 40% Randolph Dowel Machine Operator 2.4 mm CM 6.4 mm 42% Nicolaides [...] MVP measures 4.6 cm. Recommendations Please see [facility] recommendations from prior clinical and/or ultrasoundreport documentation. The patient is scheduled in four weeks for follow up growth ultrasound. Subsequent follow up or other follow up as clinically determined byprimary OB provider unless otherwise specified by [facility]. Results forwarded to ordering provider so they can follow up with thepatient as necessary. Authorizing ProviderResult TypeResult StatusIvory Quinones MDIMG ORDERABLESFinal Result * SST TOP (04/22/2025 9:13 AM EST)ComponentValueRef RangeTest MethodAnalysis TimePerformed AtPathologist SignatureExtra TubeAuto Epvajhsi99/13/2025 11:01 AM ESTPARKVIEW HEALTH LABORATORYSpecimen (Source)Anatomical Location / LateralityCollection Method / VolumeCollection TimeReceived TimeBloodVenous blood / Onozrdl1304/22/2025 9:13 AM EST04/22/2025 10:09 AM EST Narrative Authorizing ProviderResult TypeResult StatusCriselda SHAH BLOOD ORDERABLESFinal ResultPerforming OrganizationAddressCity/State/ZIP CodePhone Number [facility] [address] [place] [address], [place] [phone] * Lavender Top (04/22/2025 9:13 AM EST) Only the most recent of2 resultswithin the time period is included. ComponentValueRef RangeTest MethodAnalysis TimePerformed AtPathologist Signature Extra TubeAuto Tjjszzru62/13/2025 11:01 AM [facility] LAB[facility]ATORYSpecimen (Source)Anatomical Location / LateralityCollection Method / VolumeCollection TimeReceived TimeBloodVenous blood / Qctfppm8004/22/2025 9:13 AM EST04/22/2025 10:09 AM EST Narrative Authorizing ProviderResult TypeResult StatusJenatalee Mchugh [facility] BLOOD ORDERABLESFinal ResultPerforming OrganizationAddressCity/State/ZIP CodePhone Number [facility] [address] [place] [address], * PST TOP (04/22/2025 9:13 AM EST)ComponentValueRef RangeTest MethodAnalysis TimePerformed AtPathologist SignatureExtra TubeAut Zjnukrpn60/13/2025 11:01 AM [facility] LAB[facility]ATORYSpecimen (Source)Anatomical Location / LateralityCollection Method / VolumeCollection TimeReceived TimeBloodVenous blood / Dnqgddq8504/22/2025 9:13 AM EST04/22/2025 10:09 AM EST Narrative Authorizing ProviderResult TypeResult StatusWest [facility] BLOOD ORDERABLESFinal ResultPerforming OrganizationAddressCity/State/ZIP CodePhone Number [facility] [address] [place] [address], * (ABNORMAL) Bedside Glucose *Place/Obtain serum glucose if >500 per glucometer. (04/21/2025 7:17 PM EST) Only the most recent of60 resultswithin the time period is included. ComponentValueRef RangeTest MethodAnalysis TimePerformed AtPathologist Signature Bedside Glucose (POC)152(H)65 - 99 mg/dL04/21/2025 7:22 PM [facility] LABORATORYSpecimen (Source)Anatomical Location / LateralityCollection Method / VolumeCollection TimeReceived Timearterial/djuptnohf81/12/2025 7:17 PM EST 04/21/2025 7:22 PM EST Narrative Authorizing ProviderResult TypeResult StatusCriselda Green DOPOINT OF CARE TEST ORDERABLESFinal ResultPerforming OrganizationAddressty/State/ZIP CodePhone Number [facility] [address] [place] [address], [place] * ABO Rh Repeat (04/20/2025 1:14 PM EST)ComponentValueRef RangeTest Method Analysis TimePerformed AtPathologist DuhbkedbuPMPZ49/13/2025 10:32 AM ESTTTH BB - WPRQDLNIMHlxiasyb51/13/2025 10:32 AM ESTTTH BB - BRESpecimen (Source) Anatomical Location / LateralityCollection Method / VolumeCollection Time Received TimeBloodVenous blood / UnknownVenipuncture / Cspnazx5104/20/2025 1:14 PM EST04/20/2025 1:33 PM EST Narrative Authorizing ProviderResult TypeResult StatusCristofer Leary MDBLOOD BANK TEST ORDERABLESFinal ResultPerforming OrganizationAddressCity/State/ZIP CodePhone Number [facility] [address] [place] [address], [place] * (ABNORMAL) CBC auto differential (04/20/2025 1:14 PM EST)ComponentValueRef RangeTest MethodAnalysis TimePerformed AtPathologist KpfyjjpvzEWC20.7(H)4 - 11 X10^9/L106/20/2024 1:50 PM [facility] LABORATORYRBC Count3.72 (L)3.8 - 5.2 X10^12/L106/20/2024 1:50 PM [facility] Sjfjwkayyl69.3(L)11.7 - 15.5 g/dL04/20/2025 1:50 PM [facility] JEHEBFTVICHwbececcbr60.7(L)35 - 47 %04/20/2025 1:50 PM [facility] RGEKAKYUZNPKT2686 - 100 fL04/20/2025 1:50 PM [facility] PGTMXZTAJOKZK64.327 - 34 pg04/20/2025 1:50 PM [facility] SSRQOHOQFUOTPS34.532 - 36 g/dL04/20/2025 1:50 PM [facility] BMEMNKTXHGTVV38.511.5 - 15 %04/20/2025 1:50 PM [facility] LABORATORYPlatelet Ollyx590777 - 450 X10^9/L106/20/2024 1:50 PM [facility] LABORATORYMPV8.97 - 12 fL04/20/2025 1:50 PM [facility] LABORATORYNeutrophils %80.6%04/20/2025 1:50 PM [facility] LABORATORYLymphocytes %12.7%04/20/2025 1:50 PM [facility] LABORATORYMonocytes %5.6%04/20/2025 1:50 PM [facility] LABORATORYEosinophils %0.7%04/20/2025 1:50 PM [facility] LABORATORYBasophils %0.4%04/20/2025 1:50 PM [facility] LABORATORYNeutrophils Absolute (A)10.2(H)1.5 - 6.6 X10^9/L 04/20/2025 1:50 PM [facility] LABORATORYLymphocytes Absolute 1.61.0 - 3.5 X10^9/L106/20/2024 1:50 PM [facility] Monocytes Absolute0.70.0 - 0.9 X10^9/L106/20/2024 1:50 PM [facility] LABORATORYEosinophils Absolute0.10.0 - 0.4 X10^9/L106/20/2024 1:50 PM [facility] LABORATORYBasophils Absolute0.10.0 - 0.2 X10^9/L 04/20/2025 1:50 PM [facility] LABORATORYDifferential Type AUTOMATED FUGMWKSYYFHE34/11/2025 1:50 PM [facility] LABORATORYSpecimen (Source)Anatomical Location / LateralityCollection Method / VolumeCollection TimeReceived TimeBloodVenous blood / UnknownVenipuncture / Xvuzjvs8704/20/2025 1:14 PM EST04/20/2025 1:33 PM EST Narrative Authorizing ProviderResult TypeResult StatusCristofer PAIGE BLOOD ORDERABLESFinal ResultPerforming OrganizationAddressCity/State/ZIP CodePhone Number [facility] [address] [place] [address], * Acetone, (BetaHydroxybutyrate, Ketone) quantitative, serum (04/20/2025 1:14 PM EST)ComponentValueRef RangeTest MethodAnalysis TimePerformed AtPathologist SignatureBETAHYDROXYBUTYRATE0.100.02 - 0.27 mmol/L106/20/2024 2:15 PM [facility] LABORATORYSpecimen (Source)Anatomical Location / Laterality Collection Method / VolumeCollection TimeReceived TimeBloodVenous blood / UnknownVenipuncture / Itdtuup2204/20/2025 1:14 PM EST04/20/2025 1:32 PM EST Narrative Authorizing ProviderResult TypeResult StatusCristofer PAIGE BLOOD ORDERABLESFinal ResultPerforming OrganizationAddressCity/State/ZIP CodePhone Number [facility] [address] [place] [address], [place] [phone] * TSH (04/20/2025 1:14 PM EST)ComponentValueRef RangeTest MethodAnalysis Time Performed AtPathologist SignatureTSH0.750.49 - 4.67 uIU/mL04/21/2025 9:43 AM [facility] LABORATORYSpecimen (Source)Anatomical Location / LateralityCollection Method / VolumeCollection TimeReceived TimeBloodVenous blood / UnknownVenipuncture / Utlacih9204/20/2025 1:14 PM EST04/20/2025 1:32 PM EST Narrative Authorizing ProviderResult TypeResult StatusCristofer PAIGE BLOOD ORDERABLESFinal ResultPerforming OrganizationAddressCity/State/ZIP CodePhone Number [facility] [address] [place] [address], [place] [phone] * T4, free (04/20/2025 1:14 PM EST)ComponentValueRef RangeTest MethodAnalysis TimePerformed AtPathologist SignatureFREE T40.640.61 - 1.60 ng/dL04/21/2025 9:48 AM [facility] LABORATORYSpecimen (Source)Anatomical Location / LateralityCollection Method / VolumeCollection TimeReceived Time BloodVenous blood / UnknownVenipuncture / Izkxtll2804/20/2025 1:14 PM EST 04/20/2025 1:32 PM EST Narrative Authorizing ProviderResult TypeResult StatusIsaac Sapphire PAIGE BLOOD ORDERABLESFinal ResultPerforming OrganizationAddressCity/State/ZIP CodePhone Number [facility] [address] [place] [address], * (ABNORMAL) Comprehensive metabolic panel (04/20/2025 1:14 PM EST)Component ValueRef RangeTest MethodAnalysis TimePerformed AtPathologist SignatureSODIUM 518216 - 146 mmol/L106/20/2024 2:15 PM [facility] POTASSIUM3.93.5 - 5.0 mmol/L106/20/2024 2:15 PM [facility] QPSHAJTDJJJMFPFWHT13475 - 109 mmol/L106/20/2024 2:15 PM [facility] LABORATORYCARBON ATKUCQT0983 - 32 mmol/L106/20/2024 2:15 PM [facility] LABORATORYANION GAP75 - 15 mmol/L106/20/2024 2:15 PM [facility] LABORATORYBLOOD UREA GDDSMYYG95 - 23 mg/dL04/20/2025 2:15 PM [facility] LABORATORYCREATININE0.620.40 - 1.00 mg/dL 04/20/2025 2:15 PM [facility] LABORATORYComment:METHOD TRACEABLE TO IDMS ZKFRODKAWIEXUPS779(H)65 - 99 mg/dL04/20/2025 2:15 PM [facility] LABORATORYCALCIUM8.58.5 - 10.5 mg/dL04/20/2025 2:15 PM [facility] LABORATORYTOTAL PROTEIN6.16.0 - 8.0 g/dL 04/20/2025 2:15 PM [facility] LABORATORYALBUMIN3.1(L)3.2 - 5.3 g/dL04/20/2025 2:15 PM [facility] LABORATORYALKALINE LUHASRQNRDV6904 - 130 U/L106/20/2024 2:15 PM [facility] AJWVUSTCDHOOZ82<=41 U/L106/20/2024 2:15 PM [facility] XNEWSNANCZUFC82(H)<=31 U/L106/20/2024 2:15 PM [facility] LABORATORYBILIRUBIN,TOTAL0.2(L)0.3 - 1.2 mg/dL04/20/2025 2:15 PM [facility] LABORATORYEGFR Non-Race Dependent>90>=60 ml/min/1.73sq.m 04/20/2025 2:15 PM [facility] LABORATORYComment: Reported eGFR is based on the CKD-EPI 2020 equation that does not use a race coefficient. Specimen (Source)Anatomical Location / LateralityCollection Method / Volume Collection TimeReceived TimeBloodVenous blood / UnknownVenipuncture / Unknown 04/20/2025 1:14 PM EST04/20/2025 1:32 PM EST Narrative Authorizing ProviderResult TypeResult StatusIsaac Sapphire PAIGE BLOOD ORDERABLESFinal ResultPerforming OrganizationAddressCity/State/ZIP CodePhone Number [facility] [address] [place] [address], * Echo complete W/O contrast (04/16/2025 2:29 PM EST)ComponentValueRef RangeTest MethodAnalysis TimePerformed AtPathologist SignatureLVOT stroke mauapl79.88ml NAWKJEBOD4239 - 44 %XCELERALVIDd4.88fqGYVBFIQTEJRu4.85ifFQNXIWISZS1.900.6 - 1.1 cmXCELERAPW0.900.6 - 1.1 cmXCELERALVOT diameter1.85jfILZXEDKZMI39.20cm/s XCELERAMV TDI E' (medial)8.27cm/sXCELERALA Volume Index13.7mL/y3GKKPQYTC/A ratio1.32XCELERAE wave deceleration fmvq391.00msecXCELERAMV Peak E Luu622.00 cm/sXCELERAMV Peak A Vel78.60cm/sXCELERALA size3.20cmXCELERAAortic root2.50cm XCELERALA emdssj58.98ob2NBLRXVSSG diastolic dimension (basal)27.0mmXCELERARVID d2.9wrRRPCKDJGAKLB7.38cmXCELERAAV peak ibd338.00cm/sXCELERALVOT peak vel1.16 m/sXCELERAAV VTI39.00cmXCELERALVOT peak VTI26.30cmXCELERAAV mean gradient8.00 mmHgXCELERAAV peak marbckzp83.75mmHgXCELERAAV valve area1.36XCELERAValve area - Index0.8XCELERAMV pressure 1/2 time53.00msXCELERAMV valve area p 1/2 method 4.48le8JBVIKQMBK mean gradient3.00mmHgXCELERAPV peak gradient4.84mmHgXCELERALV ESV A2C20.70mLXCELERALV ESV A4C22.20mLXCELERALV RWT 2D45.00XCELERAAV Velocity Ratio0.67XCELERALeft Ventricle Opns237.434675630200324sWFVMICA Interventricular Septum Diastolic Thickness by 8N2eyZJSWLSXAdv. RA pressure3 mmHgXCELERARA area9.4hd8JEUUXUNUwxpnygxoh RegionLateralityModalityChestN/A UltrasoundSpecimen (Source)Anatomical Location / LateralityCollection Method [...] wall motion is normal. Authorizing ProviderResult TypeResult StatusOxanrosanna Esteban [facility] ECHO ORDERABLESFinal Result * (ABNORMAL) Alpha fetoprotein (04/08/2025 10:01 AM EDT)ComponentValueRef Range Test MethodAnalysis TimePerformed AtPathologist SignatureALPHA QZVUOAPLKKN62.3 (H)<=9.9 ng/mL04/08/2025 1:25 PM [facility] Specimen (Source)Anatomical Location / LateralityCollection Method / Volume Collection TimeReceived TimeBloodVenous blood / UnknownVenipuncture / Unknown 04/08/2025 10:01 AM EDT10/ 10:01 AM EDT Narrative Authorizing ProviderResult TypeResult StatusAmy L Maria G PALAB BLOOD ORDERABLES Final ResultPerforming OrganizationAddressCity/State/ZIP CodePhone Number [facility] [address] [place] [address], * B-type natriuretic peptide (04/08/2025 10:01 AM EDT)ComponentValueRef Range Test MethodAnalysis TimePerformed AtPathologist BzodclefoUPB30<=100 pg/mL 04/08/2025 11:24 AM EDTPROMEDMEMORIAL HOSPITAL OF GARDENApecimen (Source) Anatomical Location / LateralityCollection Method / VolumeCollection Time Received TimeBloodVenous blood / UnknownVenipuncture / Efyjowy6204/08/2025 10:01 AM EDT1 10:01 AM EDT Narrative Authorizing ProviderResult TypeResult StatusColleen E Arnulfo PA-CLAB BLOOD ORDERABLESFinal ResultPerforming OrganizationAddressCity/State/ZIP CodePhone Number [facility] [address] [place] [address], * Hemoglobin A1c (04/08/2025 9:56 AM EDT)ComponentValueRef RangeTest Method Analysis TimePerformed AtPathologist SignatureHEMOGLOBIN A1C5.14.4 - 5.6 % 04/08/2025 1:25 PM [facility] LABORATORYComment: ?ADA Guidelines ?Result ?HgbA1c ? Normal : ? less than 5.7 % ? Prediabetes : ?5.7 % ??to 6.4 % Diabetes : > 6.4 % ?Use with caution in patients with abnormal hemoglobin variants as ??the half-life of red blood cells and in vivo glycation rates are ??affected. EST. AVERAGE HBZCYEI176ga/dL04/08/2025 1:25 PM [facility] LABORATORYSpecimen (Source)Anatomical Location / LateralityCollection Method / VolumeCollection TimeReceived TimeBloodVenous blood / Mixrmgk3604/08/2025 9:56 AM EDT1 10:14 AM EDT Narrative Authorizing ProviderResult TypeResult StatusCarin Mathur PERSONAL CAREGIVER-CNPLAB BLOOD ORDERABLESFinal ResultPerforming OrganizationAddressCity/State/ZIP CodePhone Number [facility] [address] [place] [address], * (ABNORMAL) Protein, urine, 24 hour (02/19/2025 6:57 AM EDT)ComponentValueRef RangeTest MethodAnalysis TimePerformed AtPathologist SignatureURINE TOTAL TDZMDDK803(H)0 - 150 mg/24h02/19/2025 8:29 AM [facility] LABORATORYLAB TOT VOLUME - 24H URINE2,8785802/19/2025 8:29 AM [facility] LABORATORYSpecimen (Source)Anatomical Location / Laterality Collection Method / VolumeCollection TimeReceived DbqkDqbpa04/12/2025 6:57 AM EDT02/19/2025 7:44 AM EDT Narrative Authorizing ProviderResult TypeResult StatusLaura Jeramy DOURINE ORDERABLES Final ResultPerforming OrganizationAddressCity/State/ZIP CodePhone Number [facility] [address] [place] [address], * Pap Smear (04/02/2022 10:35 AM EDT)Specimen (Source)Anatomical Location / LateralityCollection Method / VolumeCollection TimeReceived Time04/02/2022 10:35 AM EDT1 10:37 AM EDT Narrative COPATH - 04/12/2022 12:17 PM EDT [facility] ? [address] ? [place], [place] [address] ? Gynecologic Cytology Consultation ? Patient Name:ADLIA BANKS:2000 (Age: 22)Gender:FTaken:2Reported:04/12/2022hysician(s):[facility] ([phone])Copy To: Rec. #:[id number]: #[id number] Final Cytologic Interpretation ThinPrep Pap Test (Cervical): Satisfactory for evaluation. A transformation zone component is present. NEGATIVE FOR INTRAEPITHELIAL LESION OR MALIGNANCY. ?? jja/04/12/2022 Interpretation performed at [facility], [address] [place] [address], License number: [id number]. Electronically Signed Out By ?JORGE Olson(ASCP) Date of Last Menstrual Period: ? 02/28/22 Other Clinical Conditions: Z01.419 Hairpiece Stylist exam wo/abn findings Source of Specimen ??ThinPrep Pap Test (Cervical) ? Thin Prep Pap ([employer]AY [employer]ER) Fee Code(s): ?? G0145 Authorizing ProviderResult TypeResult StatusCayla Olivas [facility] PATHOLOGY/CYTOLOGY ORDERABLESFinal ResultPerforming OrganizationAddress City/State/ZIP CodePhone Number [facility] * Chlamydia/GC by PCR Omaira Swab (03/20/2022 6:33 PM EDT)ComponentValueRef Range Test MethodAnalysis TimePerformed AtPathologist SignatureSpecimen sourceCERVIX 03/20/2022 9:54 PM [facility] LABComment:Corrected on 03/20 AT 2154: Previously reported as SWABChlamydia DNA PCRNegativeNegative^Negative 03/21/2022 12:54 PM [facility] LABComment: ? Chlamydia trachomatis not detected by nucleic acid amplification. This does not exclude the possibility of infection because results are dependent on adequate specimen collection. ? Gonorrhea DNA PCRNegativeNegative^Ulsseqie73/12/2022 12:54 PM [facility] LABComment: ? Neisseria gonorrhoeae not detected by nucleic acid amplification. This does not exclude the possibility of infection because results are dependent on adequate specimen collection. ? Specimen (Source)Anatomical Location / LateralityCollection Method / Volume Collection TimeReceived JvevVFXR23/11/2022 6:33 PM EDT1 9:50 PM EDT Narrative Authorizing ProviderResult TypeResult StatusCorie Travis Seaman MDMICROBIOLOGY - GENERAL ORDERABLESEdited Result - FinalPerforming OrganizationAddress City/State/ZIP CodePhone Number [facility] [address], [address] [place] [address] from Last 3 Months or Most Recently Relevant to Health Maintenance Insurance Advance Directives * Full Code (Latest Code Status on File) Date ActivatedDate InactivatedComments02/17/2025 6:35 PM02/22/2025 6:48 PM * Full Code Date ActivatedDate KjyqfbvooquBhuvlxyo86/27/2021 4:55 PM06/08/2021 4:33 PM * Full Code Date ActivatedDate InactivatedComments01/07/2018 6:44 AM01/07/2018 2:17 PM * Full Code Date ActivatedDate InactivatedComments10/23/2016 11:27 AM10/24/2016 12:42 PM * Full Code Date ActivatedDate InactivatedComments08/01/2016 12:52 AM08/01/2016 4:47 PM Care Teams Team MemberRelationshipSpecialtyStart DateEnd Date Dru Rodriguez DO [address] [place] [address] [facility]01/01/17
--- OUTSIDE RECORDS SUMMARY | 2025-05-21 18:43 | XMS_ITS | Encounter Summary ---
Author Organization [facility] Address [address] [place] [address] Care Team Providers Care Lunch Wagon Operator Name Role Phone Dru Rodriguez DO Primary Care Provider [phone] Dru Rodriguez DO Unavailable [phone] Encounter Details DateTypeDepartmentCare Team (Latest Contact Info)Rlcrmaaewtk60/03/2025Telephone [facility] [address] [place] [address] [place] [phone] Nicolasa BaileyFORT [place], [place] Social History Tobacco UseTypesPacks/DayYears UsedDateSmoking Tobacco: NeverSmokeless [...] relatives?Twice a week03/11/2023How often do you attend congregation or taoist services?1 to 4 times per year03/11/2023o you belong to any clubs or organizations such as congregation groups, unions, fraternal or athletic laura ups, or school groups?No03/11/2023How often do you attend meetings of the clubs or organizations you belong to?Never03/11/2023re you , , , , never , or living with a partner?Caopmii1003/11/2023 AUDIT-CAnswerDate RecordedQ1: How often do you have a drink containing alcohol? Monthly or less03/11/2023Q2: How many drinks containing alcohol do you have on a typical day when you are drinking?3 or Q3: How often do you have six or more drinks on one occasion?Less than sfbszvo5303/11/2023Overall Financial Resource Strain (CARDIA)AnswerDate RecordedHow hard is it for you to pay for the very basics like food, housing, medical care, and heating?Somewhat hard 03/11/2023HQ-2AnswerDate RecordedPatient Health Questionnaire-2 Score0 03/25/2025[facility] [place] of Occupational Health - Occupational Stress QuestionnaireAnswerDate [...] slept in ashelter (including now)?No03/11/2023Estimated Date of RlsjwscwCnsfirzuMlq91/27/2026ased on last menstrual period of 10/30/2024Sex and Gender InformationValueDate RecordedSex Assigned at JtxqzHjqevo45/01/2023 1:10 PM EDTLegal TdgQnipas61/15/2023 6:51 PM EDTGender QahmbhxzSzqjxg09/01/2023 1:10 PM EDTSexual YbmtpqfgtlaBspipkmb86/01/2023 1:10 PM EDTdocumented as of this encounter [...] Plan of Treatment DateTypeDepartmentCare Team (Latest Contact Info)Kfbpmhxspum92/22/2025 3:30 PM ESTRoutine [facility] [address] [place] [address] [place] [address] Kolton Cao, DO [address] [place] [address] 06/16/2025 4:00 PM ESTRoutine [facility] [address] [place] [address] Dixie Gan, HOUSING MANAGEMENT REPRESENTATIVE [address] [place] [address] NameTypePriorityAssociated DiagnosesOrder ScheduleUS biophysical profile w non stress testImagingRoutine Type 1 diabetes mellitus during , antepartum ([facility]) Expected: 05/12/2025 (Approximate), Expires: 11/10/2025documented as of this encounter Goals GoalPatient Goal TypeAssociated ProblemsRecent ProgressPatient-Stated?Author Reminders Care PlanOB RemindersNoOpen Scheduling, Backgrounddocumented as of this encounter Visit Diagnoses Diagnosis Type 1 diabetes mellitus during , antepartum ([facility]) documented in this encounter Additional Health Concerns Active ProblemsNoted DateDiagnosed DateOB Iywnlgbsb89/24/2025 documented as of this encounter Care Teams Team MemberRelationshipSpecialtyStart DateEnd Date Dru Rodriguez DO [address] [place] [address] PCP - GeneralFamily Medicine10/22/22 Dru Rodriguez DO [address] [place] [address] PCP - [place] Lfamcuqabe74/1/2312documented as of this encounter
--- OUTSIDE RECORDS SUMMARY | 2025-05-21 18:43 | XMS_ITS | Encounter Summary ---
Author Organization [facility] tem Address [id number] [address] [place] [address] Care Team Providers Care Alumni Secretary Name Role Phone RonyDru lozada Arpil MUNGUIA Primary Care Provider [phone] Encounter Details DateTypeDepartmentCare Team (Latest Contact Info)Kqtagmvdngr25/08/2025Telephone Maternal- Medicine at [facility] [address] [facility] [facility] [place] [place] [phone] Debby Garcia RN Social History Tobacco UseTypesPacks/DayYears UsedDateSmoking Tobacco: NeverSmokeless Tobacco: NeverAlcohol UseStandard Drinks/WeekCommentsYes0 (1 standard drink = 0.6 oz pure alcohol)[facility] UtilitiesAnswerDate RecordedIn the past 12 months has the [employer], gas, oil, or water [employer] threatened to shut off services in your [...] care, and heating?Not hard at all02/17/2025PHQ-2AnswerDate RecordedTotal Kynxv23906/12/2023[facility] [place] of Occupational Health - Occupational Stress QuestionnaireAnswerDate [...] part of a household?No02/17/2025hildcareAnswerDate RecordedDo problems getting exceptional children teacher make it difficult for you to [...] and direction in my life.Agree02/17/2025Estimated Date of WsluedtvApqgcpjgDmi98/27/2026Based on last menstrual period of 10/30/2024Sex and Gender InformationValueDate RecordedSex Assigned at AgqmbXtlzen85/22/2025 1:51 AM EDTLegal SexFemale 01/13/2015 11:58 AM EDTGender IpdwgzheKuqotp77/22/2025 1:51 AM EDTSexual OrientationNot on filedocumented as of this encounter Miscellaneous Notes * Telephone Encounter - Debby Garcia RN - 05/17/2025 2:41 PM EST Left message for patient to call [facility] to schedule a 1-2 week video visit with Rosy PITTMAN and a [facility] MD visit in person in 4 weeks. Call back number given. documented in this encounter Plan of Treatment DateTypeDepartmentCare Team (Latest Contact Info)Hbfgsovvzwv16/02/2026 3:30 PM ESTAppointment [facility] [address] [place] [address] documented as of this encounter Visit Diagnoses Diagnosis Uncontrolled type 1 diabetes mellitus with hyperglycemia, with long-term current use of insulin ([facility]) documented in this encounter Additional Health Concerns AssessmentNoted TimePHQ-9 Depression Total Score: 8:31 AM ESTA Body Mass Index follow-up plan has been documented for the nggjwrn4406/12/2023 4:35 PM ESTdocumented as of this encounter Care Teams Team MemberRelationshipSpecialtyStart DateEnd Date Dru Rodriguez DO [address] [place] [address] PCP - General01/01/17documented as of this encounter
--- OUTSIDE RECORDS SUMMARY | 2025-05-21 18:43 | XMS_ITS | Clinical Summary ---
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 ORDERABLES Final ResultPerforming OrganizationAddressCity/State/ZIP CodePhone Number [facility]IN[facility] TB * AMNISURE (03/20/2025 7:28 AM EDT)ComponentValueRef RangeTest MethodAnalysis TimePerformed AtPathologist SignatureTBH AMNISURENEGATIVENEGATIVETBHSpecimen (Source)Anatomical Location / LateralityCollection Method / VolumeCollection TimeReceived Time03/20/2025 7:28 AM EDT1 7:35 AM EDT Narrative [facility] 03/20/2025 7:48 AM EDT Authorizing ProviderResult TypeResult StatusCorey Kiley DOLAB BLOOD ORDERABLES Final ResultPerforming OrganizationAddressCity/State/ZIP CodePhone Number ZAYNABNC [facility] * (ABNORMAL) TBH URINE MICROSCOPIC ONLY [...] 7:28 AM EDT1 7:35 AM EDT Narrative [facility] - 03/20/2025 7:55 AM EDT Authorizing ProviderResult TypeResult StatusCorey Kiley DOCLINISYNCFinal Result Performing OrganizationAddressCity/State/ZIP CodePhone Number KENN [facility] * (ABNORMAL) [facility] UA (CLEAN/CATCH) DRAWING IN MACHINE TENDER/MICRO IF IND. (03/20/2025 7:28 AM EDT) ComponentValueRef [...] Performing OrganizationAddressCity/State/ZIP CodePhone Number CLINIS[facility]NC [facility] * Microalbumin / creatinine urine ratio (10/27/2024)ComponentValueRef RangeTest MethodAnalysis TimePerformed AtPathologist SignatureMICROALBUMIN, URINE10.2 Specimen (Source)Anatomical Location / LateralityCollection Method / Volume Collection TimeReceived TimeUrineUrine specimen obtained by clean catch procedure / Kqedtue6010/27/2024 Narrative Authorizing ProviderResult TypeResult StatusFirelands Physician GroupLAB URINE ORDERABLESFinal Result from Last 3 Months or Most Recently Relevant to Health Maintenance Additional Health Concerns Active ProblemsNoted DateDiagnosed DateOB Xycnnavkr50/24/2025 Insurance Care Teams Team MemberRelationshipSpecialtyStart DateEnd Joaquín Dillon DO [address] [facility] [address] [place] [address] PCP - GeneralFamoly Medicine10/22/22 Joaquín Dillon DO [address] [facility] [address] [place] [address] PCP - Medical Hondo Bduvmkelon02/1/
--- OUTSIDE RECORDS SUMMARY | 2025-05-21 18:43 | XMS_ITS | Encounter Summary ---
Author Organization [employer] [facility] tem Address [facility] [place]-[id number] [address] [place] [address] Care Team Providers Care Motor Block Mechanic Name Role Phone JenniferDru April MUNGUIA Primary Care Provider +1- [phone] Encounter Details DateTypeDepartmentCare Team (Latest Contact Info)Kxykljftktv49/08/2025Travel Social History Tobacco UseTypesPacks/DayYears UsedDateSmoking Tobacco: NeverSmokeless Tobacco: NeverAlcohol UseStandard Drinks/WeekCommentsYes0 (1 standard drink = 0.6 oz pure alcohol)socialKINDRED HEALTHCARE UtilitiesAnswerDate RecordedIn the past 12 months has [...] care, and heating?Not hard at all02/17/2025PHQ-2AnswerDate RecordedTotal Tabpo722Finlone peak hospital [place] of Occupational Health - Occupational Stress QuestionnaireAnswerDate [...] of a household?No02/17/2025hildcareAnswerDate RecordedDo problems getting child caregiver make it difficult for you to work [...] and direction in my life.Agree02/17/2025Estimated Date of DssixazkCvzatwapWzr76/27/2026Based on last menstrual period of 10/30/2024Sex and Gender InformationValueDate RecordedSex Assigned at LasujPslsaz69/22/2025 1:51 AM EDTLegal SexFemale 01/13/2015 11:58 AM EDTGender DbnpolcpDkvgwx46/22/2025 1:51 AM EDTSexual OrientationNot on filedocumented as of this encounter Plan of Treatment DateTypeDepartmentCare Team (Latest Contact Info)Acxhlbapwfk96/02/2026 3:30 PM ESTAppointment [facility] US Imaging [address] [place] [address] documented as of this encounter Visit Diagnoses Not on filedocumented in this encounter Additional Health Concerns AssessmentNoted TimePHQ-9 Depression Total Score: 8:31 AM ESTA Body Mass Index follow-up plan has been documented for the xhccvlo9406/12/2023 4:35 PM ESTdocumented as of this encounter Care Teams Team MemberRelationshipSpecialtyStart DateEnd Date Dru Rodriguez DO [address] [facility] [place] [address] PCP - General01/01/17documented as of this encounter
--- OUTSIDE RECORDS SUMMARY | 2025-05-21 18:44 | XMS_ITS | Encounter Summary ---
Author Organization [facility] tem Address [facility] [id number] [address] [place] [address] Care Team Providers Care Stereo Equipment Repairer Name Role Phone Dru Rodriguez Primary Care Provider +1- [phone] Encounter Details DateTypeDepartmentCare Team (Latest Contact Info)Rqpslnpzbne33/01/2025Orders Only Maternal- Medicine at [facility] [address] [facility] [place] [phone] Clarita Mchugh, [facility] Social History Tobacco UseTypesPacks/DayYears UsedDateSmoking Tobacco: NeverSmokeless Tobacco: NeverAlcohol UseStandard Drinks/WeekCommentsYes0 (1 standard drink = 0.6 oz pure alcohol)[facility] UtilitiesAnswerDate RecordedIn the past 12 months has the [employer], gas, oil, or water [employer] threatened to shut off services in your [...] care, and heating?Not hard at all02/17/2025PHQ-2AnswerDate RecordedTotal Ixmaa41706/12/2023Finmoab regional hospital [place] of Occupational Health - Occupational Stress QuestionnaireAnswerDate [...] a household?No02/17/2025hildcareAnswerDate RecordedDo problems getting child welfare manager make it difficult for you to work [...] and direction in my life.Agree02/17/2025Estimated Date of VlhrwhugAcacwlnvTkh58/27/2026Based on last menstrual period of 10/30/2024Sex and Gender InformationValueDate RecordedSex Assigned at XwnsyVuqoce56/22/2025 1:51 AM EDTLegal SexFemale 01/13/2015 11:58 AM EDTGender MnewnbsyFztsuj61/22/2025 1:51 AM EDTSexual OrientationNot on filedocumented as of this encounter Plan of Treatment DateTypeDepartmentCare Team (Latest Contact Info)Nrvtalkaabh14/02/2026 3:30 PM ESTAppointment [facility] Imaging [address] [place] [phone] documented as of this encounter Visit Diagnoses Not on filedocumented in this encounter Additional Health Concerns AssessmentNoted TimePHQ-9 Depression Total Score: 8:31 AM ESTA Body Mass Index follow-up plan has been documented for the uxcmids4706/12/2023 4:35 PM ESTdocumented as of this encounter Care Teams Team MemberRelationshipSpecialtyStart DateEnd Date Dru Rodriguez DO [address] [place] [address] PCP - General01/01/17documented as of this encounter
--- OUTSIDE RECORDS SUMMARY | 2025-05-21 18:44 | XMS_ITS | Encounter Summary ---
Author Organization [facility] tem Address [facility]-[id number] [address] [place] [address] Care Team Providers Care Site Controller Name Role Phone Dru Rodriguez DO Primary Care Provider +1- [phone] Reason for Referral * Diagnostic Imaging (Routine) - Pending ReviewSpecialtyDiagnoses / Procedures Referred By ContactReferred To ContactMaternal and Medicine Diagnoses Type 1 diabetes mellitus during in second trimester Procedures US MFM with or without consult Yahaira Miller MD [address] [address] Phone: tel: fax: Maternal- Medicine at [facility] [address] [place] [address] Phone: tel: fax: Referral IDStatusReasonStart DateExpiration DateVisits RequestedVisits [id number] Encounter Details DateTypeDepartmentCare Team (Latest Contact Info)Igeykzzxsle51/04/2025Orders Only Maternal- Medicine at [facility] [address] [place] [address] Becca Natarajan RN Type 1 diabetes mellitus during in second trimester (Primary Dx) Social History Tobacco UseTypesPacks/DayYears UsedDateSmoking Tobacco: NeverSmokeless Tobacco: NeverAlcohol UseStandard Drinks/WeekCommentsYes0 (1 standard drink = 0.6 oz pure alcohol)socialSCCI HOSPITAL LIMA UtilitiesAnswerDate RecordedIn the past 12 months has [...] care, and heating?Not hard at all02/17/2025PHQ-2AnswerDate RecordedTotal Efmfz535Find[facility] [place] of Occupational Health - Occupational Stress QuestionnaireAnswerDate [...] and direction in my life.Agree02/17/2025Estimated Date of IspcjftdUenzchytPqz71/27/2026ased on last menstrual period of 10/30/2024Sex and Gender InformationValueDate RecordedSex Assigned at EcptqFoiyil39/22/2025 1:51 AM EDTLegal SexFemale 01/13/2015 11:58 AM EDTGender MocppzaiQoehmm50/22/2025 1:51 AM EDTSexual OrientationNot on filedocumented as of this encounter Plan of Treatment DateTypeDepartmentCare Team (Latest Contact Info)Fdcxctbgjkv90/02/2026 3:30 PM ESTAppointment [facility] US Imaging [address] [place] [phone] NameTypePriorityAssociated DiagnosesOrder ScheduleUS [facility] with or without consult ImagingRoutine Type 1 diabetes mellitus during in second trimester Expected: 05/13/2026 (Approximate), Expires: 08/11/2026documented as of this encounter Visit Diagnoses Diagnosis Type 1 diabetes mellitus during in second trimester- Primary documented in this encounter Additional Health Concerns AssessmentNoted TimePHQ-9 Depression Total Score: 401 8:31 AM ESTA Body Mass Index follow-up plan has been documented for the cersktm8906/12/2023 4:35 PM ESTdocumented as of this encounter Care Teams Team MemberRelationshipSpecialtyStart DateEnd Date Dru Rodriguez DO [address] [place] [address] PCP - General01/01/17documented as of this encounter
--- OUTSIDE RECORDS SUMMARY | 2025-05-21 18:44 | XMS_ITS | Encounter Summary ---
Author Organization [facility] tem Address [id number] [address] [place] [address] Care Team Providers Care Wireless Store Manager Name Role Phone JenniferDru April MUNGUIA Primary Care Provider +1- [phone] Encounter Details DateTypeDepartmentCare Team (Latest Contact Info)Lgfeurropbv12/25/2025Orders Only Maternal- Medicine at [facility] [address] [place] [phone] Rosy Arredondo PA-C [address] [address] Social History Tobacco UseTypesPacks/DayYears UsedDateSmoking Tobacco: NeverSmokeless Tobacco: NeverAlcohol UseStandard Drinks/WeekCommentsYes0 (1 standard drink = 0.6 oz pure alcohol)[facility] UtilitiesAnswerDate RecordedIn the past 12 months [...] care, and heating?Not hard at all02/17/2025PHQ-2AnswerDate RecordedTotal Cutuj159Finmckay-dee hospital center [place] of Occupational Health - Occupational Stress QuestionnaireAnswerDate [...] of a household?No02/17/2025hildcareAnswerDate RecordedDo problems getting child life assistant make it difficult for you to [...] and direction in my life.Agree02/17/2025Estimated Date of ItqbbkzpRrmcczgdImj94/27/2026ased on last menstrual period of 10/30/2024Sex and Gender InformationValueDate RecordedSex Assigned at PckcoHoezia12/22/2025 1:51 AM EDTLegal SexFemale 01/13/2015 11:58 AM EDTGender QaaagsriKpkbya62/22/2025 1:51 AM EDTSexual OrientationNot on filedocumented as of this encounter Progress Notes * Rosy Arredondo PA-C - 05/04/2025 2:58 PM EST Patient did not show for video appt on 05/04. In pump download see that pump switched from auto mode to manual mode yesterday. Unsure if setting were adjusted at that time, or why mode changed. Reviewed pump download and put in recommended changes. However will have RN confirm that patient did not make settings changes yesterday, because if she did , would recommend we re evaluate in 1 weekgiven recency of changes. Rosy Arredondo PA-C 05/18/25 1236 documented in this encounter Plan of Treatment DateTypeDepartmentCare Team (Latest Contact Info)Npngtqqlgrh68/02/2026 3:30 PM ESTAppointment [facility] US Imaging [address] [place] [address] documented as of this encounter Visit Diagnoses Not on filedocumented in this encounter Additional Health Concerns AssessmentNoted TimePHQ-9 Depression Total Score: 8:31 AM ESTA Body Mass Index follow-up plan has been documented for the oqcormm3206/12/2023 4:35 PM ESTdocumented as of this encounter Care Teams Team MemberRelationshipSpecialtyStart DateEnd Date Dru Rodriguez DO [address] [place] [address] PCP - General01/01/17documented as of this encounter
--- OUTSIDE RECORDS SUMMARY | 2025-05-21 18:44 | XMS_ITS | Encounter Summary ---
Author Organization [facility] tem Address [id number] [address] [place] [address] Care Team Providers Care Qual Research Manager Name Role Phone JenniferDru April MUNGUIA Primary Care Provider +1- [phone] Encounter Details DateTypeDepartmentCare Team (Latest Contact Info)Lnznmlghrwa85/02/2025Orders Only Maternal- Medicine at [facility] [address] [place] [phone] Bhumi Duval MD [address] [facility], [address] [place] [address] Social History Tobacco UseTypesPacks/DayYears UsedDateSmoking Tobacco: NeverSmokeless Tobacco: NeverAlcohol UseStandard Drinks/WeekCommentsYes0 (1 standard drink = 0.6 oz pure alcohol)[facility] UtilitiesAnswerDate RecordedIn the past 12 months [...] care, and heating?Not hard at all02/17/2025PHQ-2AnswerDate RecordedTotal Oqyob302Finsalt lake behavioral health hospital [place] of Occupational Health - Occupational Stress QuestionnaireAnswerDate [...] of a household?No02/17/2025hildcareAnswerDate RecordedDo problems getting children's ministry director make it difficult for you to [...] and direction in my life.Agree02/17/2025Estimated Date of XiwwalhmWzyjvrywMxb63/27/2026ased on last menstrual period of 10/30/2024Sex and Gender InformationValueDate RecordedSex Assigned at WhatgJycmby31/22/2025 1:51 AM EDTLegal SexFemale 01/13/2015 11:58 AM EDTGender YjpqjgndFpmpuo07/22/2025 1:51 AM EDTSexual OrientationNot on filedocumented as of this encounter Plan of Treatment DateTypeDepartmentCare Team (Latest Contact Info)Jvrkuwrjfio42/02/2026 3:30 PM ESTAppointment [facility] US Imaging [address] [place] [address] documented as of this encounter Visit Diagnoses Not on filedocumented in this encounter Additional Health Concerns AssessmentNoted TimePHQ-9 Depression Total Score: 8:31 AM ESTA Body Mass Index follow-up plan has been documented for the nxtfvyp3406/12/2023 4:35 PM ESTdocumented as of this encounter Care Teams Team MemberRelationshipSpecialtyStart DateEnd Date Dru Rodriguez DO [address] [place] [address] PCP - General01/01/17documented as of this encounter
--- OUTSIDE RECORDS SUMMARY | 2025-05-21 18:44 | XMS_ITS | Encounter Summary ---
Author Organization [address] tem Address [facility]-[id number] [address] [place] [address] Care Team Providers Care Field Operations Farm Manager Name Role Phone JenniferDru April MUNGUIA Primary Care Provider +1- [phone] Encounter Details DateTypeDepartmentCare Team (Latest Contact Info)Cbbtaynqawi89/04/2025Travel Social History Tobacco UseTypesPacks/DayYears UsedDateSmoking Tobacco: NeverSmokeless Tobacco: NeverAlcohol UseStandard Drinks/WeekCommentsYes0 (1 standard drink = 0.6 oz pure alcohol)socialTRINITY HEALTH SYSTEM EAST CAMPUS UtilitiesAnswerDate RecordedIn the past 12 months has [...] care, and heating?Not hard at all02/17/2025PHQ-2AnswerDate RecordedTotal Ahonq873Finintermountain medical center [place] of Occupational Health - Occupational Stress [...] a household?No02/17/2025hildcareAnswerDate RecordedDo problems getting child caregiver private home make it difficult for you to work [...] and direction in my life.Agree02/17/2025Estimated Date of LwpkjacqSlhmwaylJmg10/27/2026Based on last menstrual period of 10/30/2024Sex and Gender InformationValueDate RecordedSex Assigned at DqitcPfnses10/22/2025 1:51 AM EDTLegal SexFemale 01/13/2015 11:58 AM EDTGender QyrysmukBrjcdo61/22/2025 1:51 AM EDTSexual OrientationNot on filedocumented as of this encounter Plan of Treatment DateTypeDepartmentCare Team (Latest Contact Info)Crinktfjwsm50/02/2026 3:30 PM ESTAppointment [facility] US Imaging [address] [place] [address] documented as of this encounter Visit Diagnoses Not on filedocumented in this encounter Additional Health Concerns AssessmentNoted TimePHQ-9 Depression Total Score: 8:31 AM ESTA Body Mass Index follow-up plan has been documented for the fcnmzeu3106/12/2023 4:35 PM ESTdocumented as of this encounter Care Teams Team MemberRelationshipSpecialtyStart DateEnd Date Dru Rodriguez DO [address] [place] [address] PCP - General01/01/17documented as of this encounter
--- OUTSIDE RECORDS SUMMARY | 2025-05-21 18:44 | XMS_ITS | Encounter Summary ---
Author Organization [facility] tem Address [facility]-S62693 [address] [place] [address] Care Team Providers Care Respiratory Therapy Assistant Name Role Phone Dru Rodriguez April MUNGUIA Primary Care Provider +1- [phone] Encounter Details DateTypeDepartmentCare Team (Latest Contact Info)Cqurvagkanz37/28/2025Telephone Maternal- Medicine at [facility] [address] [facility] [place] [phone] Clarita Mchugh, [facility] Social History Tobacco UseTypesPacks/DayYears UsedDateSmoking Tobacco: NeverSmokeless Tobacco: NeverAlcohol UseStandard Drinks/WeekCommentsYes0 (1 standard drink = 0.6 oz pure alcohol)[facility] UtilitiesAnswerDate RecordedIn the past 12 months has the [employer], gas, oil, or water [employer] threatened to shut off services in your [...] care, and heating?Not hard at all02/17/2025PHQ-2AnswerDate RecordedTotal Hvqpa696Fincastleview hospital [place] of Occupational Health - Occupational Stress QuestionnaireAnswerDate [...] a household?No02/17/2025hildcareAnswerDate RecordedDo problems getting child care leader make it difficult for you to work [...] and direction in my life.Agree02/17/2025Estimated Date of AakomouiHmucxmaxOpa11/27/2026Based on last menstrual period of 10/30/2024Sex and Gender InformationValueDate RecordedSex Assigned at XckuwNybcqu45/22/2025 1:51 AM EDTLegal SexFemale 01/13/2015 11:58 AM EDTGender ZnnqgekfLapaeg55/22/2025 1:51 AM EDTSexual OrientationNot on filedocumented as of this encounter Miscellaneous Notes * Telephone Encounter - Clarita Mchugh CMA - 05/07/2025 9:53 AM EST Social Services Coordinator attempted to call patient. Needs rescheduled for missed appointment. Can see SOIL CONSERVATION AIDE/PA via Mambo[employer]hart next available. Number left to call and schedule. documented in this encounter Plan of Treatment DateTypeDepartmentCare Team (Latest Contact Info)Qvfdxyfmtki48/02/2026 3:30 PM ESTAppointment [facility] US Imaging [address] [place] [address] documented as of this encounter Visit Diagnoses Diagnosis Uncontrolled type 1 diabetes mellitus with hyperglycemia, with long-term current use of insulin ([facility]) documented in this encounter Additional Health Concerns AssessmentNoted TimePHQ-9 Depression Total Score: 8:31 AM ESTA Body Mass Index follow-up plan has been documented for the ktapmns7506/12/2023 4:35 PM ESTdocumented as of this encounter Care Teams Team MemberRelationshipSpecialtyStart DateEnd Date Dru Rodriguez DO [address] [place] [address] PCP - General01/01/17documented as of this encounter
--- OUTSIDE RECORDS SUMMARY | 2025-05-21 18:44 | XMS_ITS | Encounter Summary ---
Author Organization [facility] tem Address [facility][id number] [address] [place] [address] Care Team Providers Care Emergency Room Registered Nurse Name Role Phone Simon Rodriguezew April MUNGUIA Primary Care Provider +1- [phone] Encounter Details DateTypeDepartmentCare Team (Latest Contact Info)Spkpfqqiywp23/05/2025Telephone Maternal- Medicine at [facility] [address] [place] [phone] Katie Orozco, [address] [facility] [address] [place] [address] Social History Tobacco UseTypesPacks/DayYears UsedDateSmoking Tobacco: NeverSmokeless Tobacco: NeverAlcohol UseStandard Drinks/WeekCommentsYes0 (1 standard drink = 0.6 oz pure alcohol)[facility] UtilitiesAnswerDate RecordedIn the past 12 months has [...] care, and heating?Not hard at all02/17/2025PHQ-2AnswerDate RecordedTotal Ymfyd807Fincastleview hospital [place] of Occupational Health - Occupational Stress QuestionnaireAnswerDate [...] and direction in my life.Agree02/17/2025Estimated Date of GnxhqscfLlgzcuimNyh05/27/2026ased on last menstrual period of 10/30/2024Sex and Gender InformationValueDate RecordedSex Assigned at LoaduHevnbb68/22/2025 1:51 AM EDTLegal SexFemale 01/13/2015 11:58 AM EDTGender NrinpcxhGsosld41/22/2025 1:51 AM EDTSexual OrientationNot on filedocumented as [...] Plan of Treatment DateTypeDepartmentCare Team (Latest Contact Info)Tbyhikvxdhi39/02/2026 3:30 PM ESTAppointment [facility] US Imaging [address] [place] [address] documented as of this encounter Visit Diagnoses Diagnosis Uncontrolled type 1 diabetes mellitus with hyperglycemia, with long-term current use of insulin ([facility]) documented in this encounter Additional Health Concerns AssessmentNoted TimePHQ-9 Depression Total Score: 8:31 AM ESTA Body Mass Index follow-up plan has been documented for the mfoqrgx5606/12/2023 4:35 PM ESTdocumented as of this encounter Care Teams Team MemberRelationshipSpecialtyStart DateEnd Date Dru Rodriguez DO [address] [place] [address] PCP - General01/01/17documented as of this encounter
[2025-05-21 18:55] VITALS: BP 111/58; PULSE 98
== END 2025-05-21 19:47 | disposition home or self-care (01) ==
LOC: US 18:40 → FBC 18:43
PROVIDERS: PCP Family Medicine; Visit Provider Obstetrics & Gynecology
DX: O24.313 Unspecified pre-existing diabetes mellitus in pregnancy, third trimester (principal)
CPT/HCPCS: 76818

== ENCOUNTER 2025-05-25 18:44 | Outpatient (OUT) | payer OTHER, BC, SELFPAY ==
--- OUTSIDE RECORDS SUMMARY | 2023-12-31 09:00 | XMS_ITS | Continuity of Care Document ---
Author Organization [facility] Address [address] [place] [address] Phone Care Team Providers Care Silo Filler Name Role Phone Edna Rodriguez Unavailable Unavailable [...] TOBACCO NON-USER [employer] [facility] [employer] [facility] [place] Dis Dec Resin Composite 1s; Posterior Prophylaxis Adult Moderate Risk [employer] [facility] [employer] [facility] [place] Dis Dec Oral Hygiene Instruction PSYTX PT&/FAMILY 60 MINUTES PSYTX PT&/FAMILY 60 MINUTES OFFICE/OUTPATIENT VISIT, EST HG A1C LEVEL < 7.0% TOBACCO NON-USER PSYTX PT&/FAMILY 60 MINUTES OFFICE/OUTPATIENT VISIT, EST MED LIST DOCD IN [facility] RVW MEDS BY RX/DR IN [facility] TOBACCO NON-USER PSYTX PT&/FAMILY 60 MINUTES Intraoral-complete Series (bw) Comp Oral Eval New/estab Patient 2023 Oral Hygiene Instruction PSYTX PT&/FAMILY 60 MINUTES OFFICE/OUTPATIENT VISIT, EST DIAST BP 80-89 MM HG SYST BP < 130 MM HG MED LIST DOCD IN [facility] RVW MEDS BY RX/DR IN [facility] TOBACCO NON-USER PSYTX PT&/FAMILY 60 MINUTES PSYTX PT&/FAMILY 60 MINUTES Advance Directives Directive Yes / No Effective Date File Name No Information Encounters Encounter Description Practice Location Reason(s) For Visit Diagnoses Date Provider Providers Copied on Encounter PSYTX PT&/FAMILY 60 MINUTES [facility], [address] [place] [address], [id number] , [place] tel: [phone] [facility] Psychosis, unspecified psychosis typePTSD (post-traumatic stress disorder)Body mass index [BMI] 27.0-27.9, adultVitamin D deficiency, unspecified 4 Olman Bishop. [address] [place] [address], [id number], [place]. tel:[phone] OFFICE/OUTPA TIENT VISIT, [facility], [address] [place] [address], [id number] , [place] tel:+ [phone] [facility] Telehealth (chief complaint) Psychosis, unspecified psychosis typePTSD (post-traumatic stress disorder)Body mass index [BMI] 27.0-27.9, adultVitamin D deficiency, unspecified 4 Ray Hurley. [address] [place], [address], [place]. tel: [phone] [facility], [address] [place] [address], [id number] , [place] tel: [phone] Dental Clinic fill (chief complaint) Encounter for screening for dental disorders 4 Jonh Parr. [address] [place], [place], [id number] , [place]. tel: [phone] [facility], [address] [place] [address], [id number] , [place] tel: [phone] [facility] Dental Clinic [place] (chief complaint) Encounter for screening for dental disorders 4 Jonh Parr. [address] [place], [place], [id number] , [place]. tel: [phone] PSYTX PT&/FAMILY 60 MINUTES [facility], [address] [place] [address], [id number] , [place] tel: [phone] [facility] Psychosis, unspecified psychosis typePTSD (post-traumatic stress disorder)Body mass index [BMI] 27.0-27.9, adultVitamin D deficiency, unspecified 4 Olman Bishop. [address] [place], [address], [place]. tel: [phone] PSYTX PT&/FAMILY 60 MINUTES [facility], [address] [place] [address], [id number] , [place] tel: [phone] [facility] Psychosis, unspecified psychosis typePTSD (post-traumatic stress disorder)Body mass index [BMI] 27.0-27.9, adultVitamin D deficiency, unspecified 4 Olman Bishop. [address] [place] [address], [address], [place]. tel: [phone] OFFICE/OUTPA TIENT VISIT, EST [facility], [address] [place] [address], [id number] , [place] tel: [phone] [facility] Tele[facility] (chief complaint) Psychosis, unspecified psychosis typePTSD (post-traumatic stress disorder)Body mass index [BMI] 27.0-27.9, adultVitamin D deficiency, unspecified 4 [facility]. [address] [place] [address], [id number], . tel: [phone] PSYTX PT&/FAMILY 60 MINUTES [facility], [address] [place] [address], [id number] , [place] tel: [phone] [facility] Psychosis, unspecified psychosis typePTSD (post-traumatic stress disorder)Body mass index [BMI] 27.0-27.9, adult 4 Olman Snydercy. [address] [place] [address], [address], [place]. tel: [phone] OFFICE/OUTPA TIENT VISIT, [facility], [address] [place] [address], [id number] , [place] tel: [phone] [facility] Tele[facility] (chief complaint) Psychosis, unspecified psychosis typePTSD (post-traumatic stress disorder)Body mass index [BMI] 27.0-27.9, adult 4 [facility]. [address] [place] [address], [address], [place]. tel: [phone] PSYTX PT&/FAMILY 60 MINUTES [facility], [address] [place] [address], [id number] , [place] tel: [phone] [facility] Psychosis, unspecified psychosis typePTSD (post-traumatic stress disorder)Need for hepatitis C screening testScreening for diabetes mellitusScreening for endocrine disorderScreening for lipid disordersScreening for HIV (human immunodeficiency virus)Body mass index [BMI] 26.0-26.9, adultBody mass index [BMI] 27.0-27.9, adult 4 Olman Bishop. [address] [place] [address], [address], [place]. tel: [phone] [facility], [address] [place] [address], [id number] , [place] tel: [phone] Dental Clinic DN (chief complaint) Body mass index [BMI] 27.0-27.9, adultEncounter for screening for dental disorders 4 Jonh Baumannal. [address] [place], [place], [id number] , [place]. tel: [phone] [facility], [address] [place] [address], [id number] , [place] tel: [phone] [facility] Encounter for routine general gynecological examination without abnormal findingEncounter for gynecological examination (general) (routine) without abnormal findings 4 Ray Hurley. [address] [place] [address], [address], [place]. tel: [phone] PSYTX PT&/FAMILY 60 MINUTES [facility], [address] [place] [address], [id number] , [place] tel: [phone] [facility] Psychosis, unspecified psychosis typePTSD (post-traumatic stress disorder)Need for hepatitis C screening testScreening for diabetes mellitusScreening for endocrine disorderScreening for lipid disordersScreening for HIV (human immunodeficiency virus)Body mass index [BMI] 26.0-26.9, adultBody mass index [BMI] 27.0-27.9, adult 4 Olman Bishop. [address] [place] [address], [address], [place]. tel: [phone] OFFICE/OUTPA TIENT VISIT, EST [facility], [address] [place] [address], [id number] , [place] tel: [phone] [facility] Behavioral health (chief complaint) Need for hepatitis C screening testScreening for diabetes mellitusScreening for endocrine disorderScreening for lipid disordersScreening for HIV (human immunodeficiency virus)Body mass index [BMI] 26.0-26.9, adultPsychosis, unspecified psychosis typePTSD (post-traumatic stress disorder)Body mass index [BMI] 27.0-27.9, adult 4 Ray Hurley. [address] [place] [address], [address], [place]. tel: [phone] PSYTX PT&/FAMILY 60 MINUTES [facility], [address] [place], [place], [id number] , [place] tel: [phone] [facility] Schizophrenia, unspecified 4 Olman Bishop. [address] [place], [address], [place]. tel: [phone] PSYTX PT&/FAMILY 60 MINUTES [facility], [address] [place], [place], [id number] , [place] tel: [phone] [facility] Schizophrenia, unspecified 4 Olman Bishop. [address] [place], [address], [place]. tel: [phone] Family History Family Member Type Diagnosis Age [...] Of Treatment Date Type Action Status Goal Lipid panel. Due on 041 due [...] Goal Influenza vaccine. Due on due Goal PAP. Due on due Goal Lipid panel. Due on 041 due Goal Unhealthy drug u se screening. Due on due Goal PRAPARE ASSESSMENT. Due on due Goal Hepatitis C scre ening. Due on due Goal RLP. Due on due Goal Tdap. Due on due Goal Tdap Vaccine. Due on 2023 due Goal Depression scree seth. Due on due Goal Dietary manageme nt education, guidance, and counseling completed Goal RLP. Due on due Goal Tdap [...] due Goal PAP. Due on due Goal Hep A. Due on du e Goal Tdap. Due on due Goal Dietary manageme nt education, guidance, and counseling completed Goal RLP. Due on due Goal Hepatitis [...] due Goal Tdap. Due on due Goal Lifestyle education regardin g diet completed Goal Tdap. Due on due Goal Tdap Vaccine. Due on 2023 due Goal Influenza vaccine. Due on [place] due Goal PRAPARE ASSESSMENT. Due on due [...] Order HIV 1/0/ 2 Ag/Ab with Reflex ([id number]), Ordered on: Ordered Future Order: Lab Order Hemoglob in A1c ([id number]), Ordered on: Ordered Future Order: Lab Order Lipid Pa jose alejandro ([id number]), Ordered on: Ordered Future Order: Lab Order TSH Rfx on Abnormal to Free T4 ([id number]), Ordered on: Ordered Future Order: Lab Order Vitamin D, 25-Hydroxy ([id number]), Ordered on: Ordered Future Order: Lab Order Vitamin B12 and Folate ([id number]), Ordered on: Ordered Future Order: Lab Order Ammonia, Plasma ([id number]), Ordered on: Ordered Future Order: Lab Order CBC With Differential/Platelet ([id number]), Ordered on: Ordered Future Order: Lab Order Comp. Me tabolic Panel (14) ([id number]), Ordered on: Ordered Future Order: Lab Order Abram gleason Drug Analysis, Ur ([id number]), Ordered on: Ordered Future Order: Lab Order HCV Anti body W/ Reflex To Quantitative Real Time Pcr ([id number]), Ordered on: Ordered History Of Present Illness [...] Thurman. Pt sees Dr. Rodriguez at [facility] for PCP. Pt is UTD on Pap. [facility]es through [facility] in [place]. Pt denies homicidal thoughts. Admits to occasional [...]
--- OUTSIDE RECORDS SUMMARY | 2025-05-13 08:33 | XMS_ITS | Encounter Summary ---
Author Organization [facility] tem Address [id number] [address] [place] [address] Care Team Providers Care Carburetor Expert Name Role Phone Dru Rodriguez DO Primary Care Provider +1- [phone] Reason for Referral * Diagnostic Imaging (Routine) - Pending ReviewSpecialtyDiagnoses / Procedures Referred By ContactReferred To ContactMaternal and Medicine Diagnoses Type 1 diabetes mellitus during in second trimester Procedures US [facility] with or without consult Ivory Quinones MD [address] [address] Phone: tel: fax: Maternal- Medicine at [address] [address] Phone: tel: fax: Referral IDStatusReasonStart DateExpiration DateVisits RequestedVisits [id number] Reason for Visit * Diagnostic Imaging (Routine) - Pending ReviewSpecialtyDiagnoses / Procedures Referred By ContactReferred To ContactMaternal and Medicine Diagnoses Type 1 diabetes mellitus during in second trimester Procedures US MFM with or without consult Ivory Quinones MD [address] [facility], [facility] [place] [address] Phone: tel: fax: Maternal- Medicine at [facility] [address] [place] [address] Phone: tel: fax: Referral IDStatusReasonStart DateExpiration DateVisits RequestedVisits [id number] Fcaweb39/6/[id number]/ Encounter Details DateTypeDepartmentCare Team (Latest Contact Info)Hwlyhserwmy51/04/2025 8:33 AM EST - 05/13/2025 11:59 PM ESTHospital Encounter [facility] - MFM US Imaging [address] [place] [address] Type 1 diabetes mellitus during in second trimester Discharge Disposition: Home Social History Tobacco UseTypesPacks/DayYears UsedDateSmoking Tobacco: NeverSmokeless Tobacco: NeverAlcohol UseStandard Drinks/WeekCommentsYes0 (1 standard drink = 0.6 oz pure alcohol)socialMER[facility] UtilitiesAnswerDate RecordedIn the past 12 months [...] care, and heating?Not hard at all02/17/2025PHQ-2AnswerDate RecordedTotal Nrhyx50806/12/2023Finlog[facility] [place] of Occupational Health - Occupational Stress QuestionnaireAnswerDate [...] and direction in my life.Agree02/17/2025Estimated Date of OkuaprsyRnrehcfmPpt89/27/2026ased on last menstrual period of 10/30/2024Sex and Gender InformationValueDate RecordedSex Assigned at GnxdkTstmfo73/22/2025 1:51 AM EDTLegal SexFemale 01/13/2015 11:58 AM EDTGender MsidbizrNcbgik12/22/2025 1:51 AM EDTSexual OrientationNot on filedocumented as [...] Plan of Treatment DateTypeDepartmentCare Team (Latest Contact Info)Cexsehwdexo82/02/2026 3:30 PM ESTAppointment [facility] - [facility] US Imaging [address] [place] [address] documented as of this encounter Procedures Procedure NamePriorityDate/TimeAssociated DiagnosisCommentsUS [facility] OB FOLLOW-UP, 1 RKZVRUnrsxur88/04/2025 9:12 AM EST Type 1 diabetes mellitus during in second trimester documented in this encounter Results * US [facility] OB FOLLOW-UP, 1 FETUS (05/13/2025 9:12 AM EST)Anatomical Region LateralityModalityOB-GYNUltrasoundSpecimen (Source)Anatomical Location / LateralityCollection Method / VolumeCollection TimeReceived Time05/13/2025 8:44 AM EST Narrative 05/13/2025 10:52 AM EST NAME: ??THOMASMARILYN JIMENEZFRANSISCA SCHMIDT : 2000 SEX: F Accession Number: [id number] ORDERING PHYSICIAN: IVORY QUINONES REFERRING PHYSICIAN: BRYANT PULLIAM Coding Procedures ? 41000: Ultrasound, uterus, real time with image documentation, [...] (oz) ? 10 oz EFW by: ?Hadlock (JEM-TL-IU-FL) Extended Tibia ??45.1 mm 27w 4d 40% Randolph Terrazzo Layer ? 2.4 mm CM ? 6.4 mm [...] MVP measures 4.6 cm. Recommendations Please see [facility] recommendations from prior clinical and/or ultrasound report documentation. The patient is scheduled in four weeks for follow up growth ultrasound. Subsequent follow up or other follow up as clinically determined by primary OB provider unless otherwise specified by [facility]. Results forwarded to ordering provider so they can follow up with the patient as necessary. Procedure Note Yahaira Miller MD - 05/13/2025 NAME: DARREN ART : 2000 SEX: F Accession Number: [id number] ORDERING PHYSICIAN: IVORY QUINONES REFERRING PHYSICIAN: BRYANT PULLIAM Coding Procedures 33390: Ultrasound, uterus, real time with image documentation, [...] EFW (oz) 10 oz EFW by: Hadlock (YLK-AK-RZ-FL) Extended Tibia 45.1 mm 27w 4d 40% Randolph Terrazzo Layer 2.4 mm CM 6.4 mm 42% Nicolaides [...] MVP measures 4.6 cm. Recommendations Please see [facility] recommendations from prior clinical and/or ultrasoundreport documentation. The patient is scheduled in four weeks for follow up growth ultrasound. Subsequent follow up or other follow up as clinically determined byprimary OB provider unless otherwise specified by [facility]. Results forwarded to ordering provider so they can follow up with thepatient as necessary. Authorizing ProviderResult TypeResult StatusIvory Quinones MDIMG ORDERABLESFinal Result documented in this encounter Visit Diagnoses Diagnosis Type 1 diabetes mellitus during in second trimester documented in this encounter Additional Health Concerns AssessmentNoted TimePHQ-9 Depression Total Score: 8:31 AM ESTA Body Mass Index follow-up plan has been documented for the kvucjqt6006/12/2023 4:35 PM ESTdocumented as of this encounter Care Teams Team MemberRelationshipSpecialtyStart DateEnd Date Dru Rodriguez DO [address] [facility] [place] [address] PCP - General01/01/17documented as of this encounter
--- OUTSIDE RECORDS SUMMARY | 2025-05-17 13:00 | XMS_ITS | Encounter Summary ---
Author Organization [facility] tem Address [id number] [address] 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] part of a household?No02/17/2025hildcareAnswerDate RecordedDo problems getting director of early childhood education make it difficult for you to work [...] and direction in my life.Agree02/17/2025Estimated Date of NupmfnbqJgtcgntaFkv48/27/2026Based on last menstrual period of 10/30/2024Sex and Gender InformationValueDate RecordedSex Assigned at OkhcsOqgcih61/22/2025 1:51 AM EDTLegal SexFemale 01/13/2015 11:58 AM EDTGender AknqtfmdSapikw99/22/2025 1:51 AM EDTSexual OrientationNot on filedocumented as [...] has been negative 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, 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, 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, [...] Date Anxiety Depression Diabetes mellitus type I ([facility]) SURGICAL HISTORY: Past Surgical History: Procedure Laterality [...] TSH 0.75 04/20/2025 No components found for: [facility] Lab Results Component Value Date CREATININE [...] 2009 Endo outside of : Mily Queen ([facility]) - Current blood glucose control: poor [...] has follow up with her PCP or therapy site coordinator within 2 weeks after delivery - MFM/Endocrinology referral placed for Dr Cerrato, however due to patient's insurance, she can only get her medication refilled through her current therapy site coordinator which is in network for her. Her [...] by e-mail to: or by fax to: [phone] Rosy Arredondo PA-C Maternal- Medicine Office phone: [phone] Rosy Arredondo PA-C 05/17/25 1325 documented in this encounter Plan of Treatment DateTypeDepartmentCare Team (Latest Contact Info)Euolirmmxlg93/02/2026 3:30 PM ESTAppointment [facility] [address] [place] [phone] documented as of this encounter Visit Diagnoses Diagnosis Type 1 diabetes mellitus during in third trimester- Primary documented in this encounter Additional Health Concerns AssessmentNoted TimePHQ-9 Depression Total Score: 8:31 AM ESTA Body Mass Index follow-up plan has been documented for the ydgkoxi2506/12/2023 4:35 PM ESTdocumented as of this encounter Care Teams Team MemberRelationshipSpecialtyStart DateEnd Date Dru Rodriguez DO [address] [place] [address] PCP - General01/01/17documented as of this encounter
--- OUTSIDE RECORDS SUMMARY | 2025-05-18 14:40 | XMS_ITS | Encounter Summary ---
Author Organization [facility] Address [address] [place] [address] Care Team Providers Care Sawmill Manager Name Role Phone RonyDru lozada April DO Primary Care Provider [phone]- [phone] Dru Rodriguez DO Unavailable [phone] Reason for Visit * ReasonCommentsRoutine Visit Encounter Details DateTypeDepartmentCare Team (Latest Contact Info)Ymohzdzmaxk43/09/2025 2:40 PM ESTRoutine [facility] [address] [place] [address] Katharine Cummins PA [address] [place], [facility] 28 weeks gestation of ([facility]); Type 1 diabetes mellitus during , antepartum ([facility]); Third trimester ([facility]) Social History Tobacco UseTypesPacks/DayYears UsedDateSmoking Tobacco: [...] relatives?Twice a week03/11/2023How often do you attend jew or uatsdin services?1 to 4 times per year03/11/2023o you belong to any clubs or organizations such as jew groups, unions, fraDomino Street or athletic laura ups, or school groups?No03/11/2023How often do you attend meetings of the clubs or organizations you belong to?Never03/11/2023re you , , , , never , or living with a partner?Xxztpui3203/11/2023 AUDIT-CAnswerDate RecordedQ1: How often do you have a drink containing alcohol? Monthly or less03/11/2023Q2: How many drinks containing alcohol do you have on a typical day when you are drinking?3 or Q3: How often do you have six or more drinks on one occasion?Less than lkihicg5303/11/2023Overall Financial Resource Strain (CARDIA)AnswerDate RecordedHow hard is it for you to pay for the very basics like food, housing, medical care, and heating?Somewhat hard 03/11/2023HQ-2AnswerDate RecordedPatient Health Questionnaire-2 Score0 03/25/2025[facility] [place] of Occupational Health - Occupational [...] steady place to sleep or slept in [facility] (including now)?No03/11/2023Estimated Date of NysvdvijCpvmhtvnKgx93/27/2026ased on last menstrual period of 10/30/2024Sex and Gender InformationValueDate RecordedSex Assigned at GjmlnZejdcf45/01/2023 1:10 PM EDTLegal BjrVyhxig47/15/2023 6:51 PM EDTGender QosnbnyrUuxalk45/01/2023 1:10 PM EDTSexual LenmlavktreGtxtdcjj94/01/2023 1:10 PM EDTdocumented as of this encounter Last Filed Vital Signs Vital SignReadingTime TakenCommentsBlood Fwyrtnsz476/8012 2:46 PM EST 134/84- recheckPulse--Temperature--Respiratory Rate--Oxygen Saturation--Inhaled Oxygen Concentration--Jfkeuu74.7 kg (171 lb 6.4 oz)05/18/2025 2:46 PM [...] unresponsive hypoglycemia cholecalciferol (Vitamin D-3) 1.25 MG (00572 UT) capsule every week Continuous Blood Gluc [...] UNITS DAILY Insulin Disposable Pump (Omnipod 5 AoxW7J9 Pods Gen 5) misc 1 each, Subcutaneous, [...] TO CHECK GLUCOSE 4 TIMES DAILY Vit w/Do-Ecvlcvehx-NE (PNV PO) Take by mouth promethazine (PHENERGAN) 25 mg, Every 6 hours PRN pyridoxine (VITAMIN B-6) 100 mg, Every morning ALLERGIES Allergies Allergen Reactions Amoxicillin Anaphylaxis Mouth irritation Penicillins Anaphylaxis Has since taken without reaction PROBLEMS Active Ambulatory Problems Diagnosis Date Noted Bulging lumbar disc 11/08/2022 Chronic fatigue 11/08/2022 Lumbago with sciatica, left side 11/08/2022 Sciatica 11/08/2022 Celiac disease in pediatric patient ([facility]) 05/23/2016 Generalized anxiety disorder 01/01/2017 Mild intermittent asthma ([facility]) 05/23/2016 Panic disorder without agoraphobia 01/01/2017 Biliary dyskinesia 11/08/2022 Type 1 diabetes mellitus without complications ([facility]) 02/04/2023 Type 1 diabetes mellitus with hypoglycemia [...] nursing note reviewed. Exam conducted with a management development specialist present. Vitals: Estimated body mass index is 35.82 kg/m?? as calculated from the following: Height as of 03/25/25: 4' 10 . Weight as of this encounter: 171 lb 6.4 oz. BP: Patient's last menstrual period was 10/30/2024. Assessment/Plan ICD-10-CM 1. 28 weeks gestation of ([facility]) Z3A.28 POCT urinalysis dipstick manually resulted 2. Type 1 diabetes mellitus during , antepartum ([facility]) O24.019 3. Third trimester ([facility]) Z34.93 POCT urinalysis dipstick manually resulted [...] Plan of Treatment DateTypeDepartmentCare Team (Latest Contact Info)Edplqenaucx02/22/2025 3:30 PM ESTRoutine [facility] [address] [place] [address] Kolton Cao DO [address] [place] [address] 06/16/2025 4:00 PM ESTRoutine [facility] [address] [place] [address] Dixie Gan, CIVIL ESTIMATOR [address] [place] [address] documented as of this encounter Goals GoalPatient Goal TypeAssociated ProblemsRecent ProgressPatient-Stated?Author Reminders Care PlanOB RemindersNoOpen Scheduling, Backgrounddocumented as of this encounter Procedures Procedure NamePriorityDate/TimeAssociated DiagnosisCommentsPOCT URINALYSIS NXKTIBREFwlhgwy21/09/2025 2:51 PM EST 28 weeks gestation of ([facility]) Third trimester ([facility]) documented in this encounter Results * [...] / LateralityCollection Method / VolumeCollection Time Received OfavLdgay01/09/2025 2:51 PM EST Narrative Authorizing ProviderResult TypeResult StatusJohn[facility] TEST ENTER/EDIT ORDERABLESFinal Result documented in this encounter Visit Diagnoses Diagnosis 28 weeks gestation of ([facility]) Type 1 diabetes mellitus during , antepartum ([facility]) Third trimester ([facility]) state, incidental documented in this encounter Additional Health Concerns Active ProblemsNoted DateDiagnosed DateOB Dhngnwxvq04/24/2025 documented as of this encounter Care Teams Team MemberRelationshipSpecialtyStart DateEnd Date Dru Rodriguez DO [address] [place] [address] PCP - GeneralFamily Medicine10/22/22 Dru Rodriguez DO [address] [place] [address] PCP - Medical [place] Inbttmumnb35/1/2312documented as of this encounter
--- OUTSIDE RECORDS SUMMARY | 2025-05-25 18:47 | XMS_ITS | Encounter Summary ---
Author Organization [facility] Address [address] [place] [address] Care Team Providers Care Monitoring Engineer Name Role Phone Joaquín Rodriguez DO Primary Care Provider [phone]- [phone] Joaquín Rodriguez DO Unavailable [phone] Encounter Details DateTypeDepartmentCare Team (Latest Contact Info)Henotiaxnge39/05/2025Clinisync Result Encounter [facility] External Department Unsolicited Bryant Cao DO [address] [place] [address] Social History Tobacco UseTypesPacks/DayYears UsedDateSmoking Tobacco: NeverSmokeless [...] week03/11/2023How often do you attend gnosticism or congregational services?1 to 4 times per year03/11/2023o you belong to any clubs or organizations such as gnosticism groups, unions, fraternal or athletic laura ups, or school groups?No03/11/2023How often do you attend meetings of the clubs or organizations you belong to?Never03/11/2023re you , , , , never , or living with a partner?Jhqveqv8003/11/2023 AUDIT-CAnswerDate RecordedQ1: How often do you have a drink containing alcohol? Monthly or less03/11/2023Q2: How many drinks containing alcohol do you have on a typical day when you are drinking?3 or Q3: How often do you have six or more drinks on one occasion?Less than fwdcgad6903/11/2023Overall Financial Resource Strain (CARDIA)AnswerDate RecordedHow hard is it for you to pay for the very basics like food, housing, medical care, and heating?Somewhat hard 03/11/2023HQ-2AnswerDate RecordedPatient Health Questionnaire-2 Score0 03/25/2025[facility] [place] [facility] - Occupational Stress QuestionnaireAnswerDate [...] slept in ashelter (including now)?No03/11/2023Estimated Date of IubggwhtYmeuudyqWxb50/27/2026ased on last menstrual period of 10/30/2024Sex and Gender InformationValueDate RecordedSex Assigned at CigfnQbzxtq80/01/2023 1:10 PM EDTLegal OspLjsdtn57/15/2023 6:51 PM EDTGender SmicbcffAzjqjg49/01/2023 1:10 PM EDTSexual MkhgjlorwlhWozopiik97/01/2023 1:10 PM EDTdocumented as of this encounter Plan of Treatment DateTypeDepartmentCare Team (Latest Contact Info)Vsuxxtjmjhh77/22/2025 3:30 PM ESTRoutine [facility] Issac PORTILLO [address] [place] [address] Bryant Cao, [address] [place], [place] [id number] 06/16/2025 4:00 PM ESTRoutine NOMAislinn PORTILLO [address] [place] [address] Dixie Gan, [place] [address] [place] [address] documented as of this encounter Goals GoalPatient Goal TypeAssociated ProblemsRecent ProgressPatient-Stated?Author Reminders Care PlanOB RemindersNoOpen Scheduling, Backgrounddocumented as of this encounter Procedures Procedure NamePriorityDate/TimeAssociated DiagnosisCommentsUS OB BPP W NON-QJRPRN4705/14/2025 7:38 PM EST documented in this encounter Results * US OB BPP W NON-STRESS (05/14/2025 7:38 PM EST)Anatomical Region LateralityModalityOtherSpecimen (Source)Anatomical Location / Laterality Collection Method / VolumeCollection TimeReceived Time05/14/2025 7:38 PM EST Narrative 05/14/2025 7:40 PM EST [facility] ?[address] ? [place] [address] ? Ultrasound Report ? Signed ? Patient: KAELYN SHAW ?MR#: [id number] ?? : 2000 ?Acct:[id number] ?? Age/Sex: 25 / F ?ADM Date: 05/14/25 ?? Loc: [facility] ??250-1 ? Attending Dr: Bryant Cao D.O. ? Ordering Physician: Bryant Cao D.O. ?? Date of Service: 05/14/25 ?? Procedure(s): US OB BPP w non-stress ?? Accession Number(s): [id number] ? cc: Bryant Cao D.O.; JOAQUÍN RODRIGUEZ ? [facility] ? [address] ? [place] [address] ? Patient Name: ?? THOMASJYOTI SHAW ? MRN: [facility]:[id number] ? date: 2000 ?Sex: F ?? Assigned Patient Location: ?? Current Patient Location: ?? Accession/Order Number: [id number] ?? Exam Date: 05/14/2025 ??18:49 ?Report Date: [...] Dictation Location: RADIO-PC-29 ? Electronically authenticated by: [id number] ??Y ?? Date: 05/14/2025 ??19:38 ? Dictated By: ?Kaveh Romeo M.D. ? Signed By: ?05/14/25 1940 ? DD/ 1938 ? TD/TT: ? Wood Heel Cementer: Procedure Note Radiology, Radiologist, - 05/14/2025 [place] [address] Ultrasound Report Signed Patient: KAELYN SHAW#: [id number] : 2000Acct:[id number] Age/Sex: 25 / FADM Date: 05/14/25 Loc: [facility] 250-[address]: Bryant Cao D.O. Ordering Physician: Bryant Cao D.O. Date of Service: 05/14/25 Procedure(s): US OB BPP w non-stress Accession Number(s): [id number] cc: Bryant Cao D.O.; JOAQUÍN RODRIGUEZ [place] [id number] Patient Name: KAELYN SHAW MRN: [id number] date: 2000 Sex: F Assigned Patient Location: US Current Patient Location: US Accession/Order Number: [id number] Exam Date: 05/14/2025 18:49 Report Date: 05/14/2025 19:38 At the request of: BRYANT CAO DO Procedure: US OB BPP w non-stress Ultrasound biophysical profile INDICATION: BPP COMPARISON: None FINDINGS IMPRESSION: SINGLE LIVE INTRAUTERINE IN CEPHALICPOSITION. HEART RATE 145 BPM. AMNIOTIC FLUID INDEX 13.3 CM. BIOPHYSICALPROFILE SCORE 8/8 Impression dictated by: Kaveh Romeo M.D. 05/14/2025 7:38 PM Dictation Location: [place] [address] Electronically authenticated by: [id number] Y Date: 9:38 Dictated By: Kaveh Romeo M.D. Signed By:05/14/251939 DD/ 37 TD/TT: Wood Heel Cementer: Authorizing ProviderResult TypeResult StatusCorey Kiley DOCLINISYNC IMAGINGFinal Result documented in this encounter Visit Diagnoses Not on filedocumented in this encounter Additional Health Concerns Active ProblemsNoted DateDiagnosed DateOB Vdlnuefpm40/24/2025 documented as of this encounter Care Teams Team MemberRelationshipSpecialtyStart DateEnd Date Joaquín Rodriguez DO [address] [place] [address] PCP - GeneralFamily Medicine10/22/22 Joaquín Rodriguez DO [address] [place] [address] PCP - Medical [place] Rzkbrqxkci39/1/2312documented as of this encounter
--- OUTSIDE RECORDS SUMMARY | 2025-05-25 18:47 | XMS_ITS | Encounter Summary ---
Author Organization [facility] Address [address] [place] [address] Care Team Providers Care Panel Gluer Name Role Phone LizzDru lam DO Primary Care Provider [phone] RonyDru lozada DO Unavailable [phone] Encounter Details DateTypeDepartmentCare Team (Latest Contact Info)Hbbikegswmf09/09/2025amboo flowsheet LALITA [place] OBGYLarisa [address] [place] [phone] Katharine Cummins PA [address] [place], [facility] Social History Tobacco UseTypesPacks/DayYears UsedDateSmoking Tobacco: NeverSmokeless [...] relatives?Twice a week03/11/2023How often do you attend cheondoism or worship services?1 to 4 times per year03/11/2023o you belong to any clubs or organizations such as cheondoism groups, unions, fraternal or athletic laura ups, or school groups?No03/11/2023How often do you attend meetings of the clubs or organizations you belong to?Never03/11/2023re you , , , , never , or living with a partner?Smnjehb2303/11/2023 AUDIT-CAnswerDate RecordedQ1: How often do you have a drink containing alcohol? Monthly or less03/11/2023Q2: How many drinks containing alcohol do you have on a typical day when you are drinking?3 or Q3: How often do you have six or more drinks on one occasion?Less than pbktbpu4903/11/2023Overall Financial Resource Strain (CARDIA)AnswerDate RecordedHow hard is it for you to pay for the very basics like food, housing, medical care, and heating?Somewhat hard 03/11/2023HQ-2AnswerDate RecordedPatient Health Questionnaire-2 Score0 03/25/2025[facility] [place] of Occupational Health - Occupational Stress QuestionnaireAnswerDate [...] slept in ashelter (including now)?No03/11/2023Estimated Date of MmkxezxgCwvsgaarNjy76/27/2026ased on last menstrual period of 10/30/2024Sex and Gender InformationValueDate RecordedSex Assigned at ZdchwAdacge43/01/2023 1:10 PM EDTLegal WlbDvtffj30/15/2023 6:51 PM EDTGender PbopzijuTaeyxw83/01/2023 1:10 PM EDTSexual KmrbxzgeyizUpdhbpla04/01/2023 1:10 PM EDTdocumented as of this encounter Plan of Treatment DateTypeDepartmentCare Team (Latest Contact Info)Wpfwssirdyu95/22/2025 3:30 PM ESTRoutine [facility] Issac PORTILLO [address] [place] [address] Kolton Cao DO [address] [place] [address] 06/16/2025 4:00 PM ESTRoutine NOMAislinn PORTILLO [address] [place] [address] Dixie Gan, PERSONAL CARE WORKER [address] [place] [address] documented as of this encounter Goals GoalPatient Goal TypeAssociated ProblemsRecent ProgressPatient-Stated?Author Reminders Care PlanOB RemindersNoOpen Scheduling, Backgrounddocumented as of this encounter Visit Diagnoses Not on filedocumented in this encounter Additional Health Concerns Active ProblemsNoted DateDiagnosed DateOB Jydxqasdm94/24/2025 documented as of this encounter Care Teams Team MemberRelationshipSpecialtyStart DateEnd Date Dru Rodriguez DO [address] [place] [address] PCP - GeneralFamily Medicine10/22/22 Dru Rodriguez DO [address] [place] [address] PCP - Medical [place] Mfjsznjvkz34/1/2312documented as of this encounter
--- OUTSIDE RECORDS SUMMARY | 2025-05-25 18:47 | XMS_ITS | Encounter Summary ---
Author Organization [facility] tem Address [facility] [place] [address] [place] [address] Care Team Providers Care Subcontract Manager Name Role Phone RonyDru lozada April MUNGUIA Primary Care Provider [phone] Encounter Details DateTypeDepartmentCare Team (Latest Contact Info)Ayecelgjmgo81/08/2025Telephone Maternal- Medicine at [facility] [address] [facility] [place] [place] [phone] Debby Garcia RN Social History Tobacco UseTypesPacks/DayYears UsedDateSmoking Tobacco: NeverSmokeless Tobacco: NeverAlcohol UseStandard Drinks/WeekCommentsYes0 (1 standard drink = 0.6 oz pure alcohol)[facility] UtilitiesAnswerDate RecordedIn the past 12 months has the [employer], gas, oil, or water [employer] threatened to shut off services in your [...] care, and heating?Not hard at all02/17/2025PHQ-2AnswerDate RecordedTotal Fvews91706/12/2023[facility] [place] of Occupational Health - Occupational Stress QuestionnaireAnswerDate [...] of a household?No02/17/2025hildcareAnswerDate RecordedDo problems getting child nurse make it difficult for you [...] and direction in my life.Agree02/17/2025Estimated Date of QvataamnFarmqbeoXnv18/27/2026Based on last menstrual period of 10/30/2024Sex and Gender InformationValueDate RecordedSex Assigned at TyckzLypxix10/22/2025 1:51 AM EDTLegal SexFemale 01/13/2015 11:58 AM EDTGender UphbqnvvCpvvjm08/22/2025 1:51 AM EDTSexual OrientationNot on filedocumented as of this encounter Miscellaneous Notes * Telephone Encounter - Debby Garcia RN - 05/17/2025 2:41 PM EST Left message for patient to call [facility] to schedule a 1-2 week video visit with Rosy PITTMAN and a [facility] MD visit in person in 4 weeks. Call back number given. documented in this encounter Plan of Treatment DateTypeDepartmentCare Team (Latest Contact Info)Oxocievxnow83/02/2026 3:30 PM ESTAppointment [facility] - [facility] [address] [place] [address] documented as of this encounter Visit Diagnoses Diagnosis Uncontrolled type 1 diabetes mellitus with hyperglycemia, with long-term current use of insulin ([facility]) documented in this encounter Additional Health Concerns AssessmentNoted TimePHQ-9 Depression Total Score: 8:31 AM ESTA Body Mass Index follow-up plan has been documented for the wlvbttp9306/12/2023 4:35 PM ESTdocumented as of this encounter Care Teams Team MemberRelationshipSpecialtyStart DateEnd Date Dru Rodriguez DO [address] [place] [address] PCP - General01/01/17documented as of this encounter
--- OUTSIDE RECORDS SUMMARY | 2025-05-25 18:47 | XMS_ITS | Encounter Summary ---
Author Organization [facility] tem Address [facility] [address] [place] [address] Care Team Providers Care Breaker Mechanic Name Role Phone JenniferDru April MUNGUIA Primary Care Provider [phone]- [phone] Encounter Details DateTypeDepartmentCare Team (Latest Contact Info)Nlcrloqheoj84/08/2025Travel Social History Tobacco UseTypesPacks/DayYears UsedDateSmoking Tobacco: NeverSmokeless Tobacco: NeverAlcohol UseStandard Drinks/WeekCommentsYes0 (1 standard drink = 0.6 oz pure alcohol)socialAD[facility] UtilitiesAnswerDate RecordedIn the past 12 [...] care, and heating?Not hard at all02/17/2025PHQ-2AnswerDate RecordedTotal Xruwh477Finheber valley medical center [place] of Occupational Health - Occupational Stress QuestionnaireAnswerDate [...] a household?No02/17/2025hildcareAnswerDate RecordedDo problems getting early childhood services coordinator make it difficult for you to [...] and direction in my life.Agree02/17/2025Estimated Date of YppxexxgJbwjvzmoHfj66/27/2026Based on last menstrual period of 10/30/2024Sex and Gender InformationValueDate RecordedSex Assigned at PtrbvVveegr29/22/2025 1:51 AM EDTLegal SexFemale 01/13/2015 11:58 AM EDTGender BdrnvsovNjubuu99/22/2025 1:51 AM EDTSexual OrientationNot on filedocumented as of this encounter Plan of Treatment DateTypeDepartmentCare Team (Latest Contact Info)Flkrviczoht63/02/2026 3:30 PM ESTAppointment [facility] [address] [place] [address] documented as of this encounter Visit Diagnoses Not on filedocumented in this encounter Additional Health Concerns AssessmentNoted TimePHQ-9 Depression Total Score: 8:31 AM ESTA Body Mass Index follow-up plan has been documented for the ypvbmdy5306/12/2023 4:35 PM ESTdocumented as of this encounter Care Teams Team MemberRelationshipSpecialtyStart DateEnd Date Dru Rodriguez DO [address] [facility] [place] [address] PCP - General01/01/17documented as of this encounter
--- OUTSIDE RECORDS SUMMARY | 2025-05-25 18:47 | XMS_ITS | Clinical Summary ---
Author Organization [employer] [facility] tem Address [id number] [address] [place] [address] Care Team Providers Care Calender Runner Name Role Phone JenniferDru April MUNGUIA Primary Care Provider [phone] Allergies Active AllergyReactionsCriticalityNoted JgazLtjrhhfuJewgsljrbhy12/14/2016 Has since taken without reaction Medications * [...] Up to 50 units daily 15 mL 5Active Active Problems Patient Care Coordination No te [...] with hyperglycemia, with long-term current use of pxdrbmy4602/17/2025Type 1 diabetes mellitus during in third kydgkhxgk93/11/2025DKA, type 1, not at goal 07/30/2018Diabetic ketoacidosis associated with type 1 diabetes mellitus 02/22/2017Acute renal qluyakkxtogpc87/11/2017Mechanical breakdown of insulin pump02/18/2017Generalized anxiety cthhlrwa69/25/2017Panic disorder without frgvmrtzquf51/25/2017DKA, type Mild intermittent pqwgaf7405/23/2016 Estimated Date of NvfuwsehZqrspussNnq58/27/2026ased on last menstrual period of 10/30/2024 Resolved Problems ProblemNoted DateDiagnosed DateResolved DateCeliac disease in pediatric patient Encounters DateTypeDepartmentCare OitzCwjeyhrhwus15/08/2025 1:00 PM ESTTelemedicine Maternal- Medicine at [facility] [address] [facility] [place] [address] Rosy Arredondo, ANDRE Type 1 diabetes mellitus during in third trimester (Primary Dx) 05/17/2025Telephone Maternal- Medicine at [facility] [address] [place] [address] Debby Garcia RN 05/17/20252764Mviimp45/05/2025Telephone Maternal- Medicine at [facility] [address] [place] [address] Katie Orozco LD 05/13/2025 8:33 AM EST - 05/13/2025 11:59 PM ESTHospital Encounter [facility] - [facility] US Imaging [address] [facility] [place] [address] Type 1 diabetes mellitus during in second trimester Discharge Disposition: Home05/13/2025Orders Only Maternal- Medicine at [facility] [address] [facility] [place] [address] Becca Natarajan, BRANDT Type 1 diabetes mellitus during in second trimester (Primary Dx) 05/13/20251243Eaqqtu02/02/2025Orders Only Maternal- Medicine at [facility] [address] [place] [address] Ivory Quinones MD 05/10/2025Orders Only Maternal- Medicine at [facility] [address] [place] [address] Clarita Mchugh, DYE TUB TENDER 05/07/2025Telephone Maternal- Medicine at [facility] [address] [place] [address] Clarita Mchugh, DYE TUB TENDER 05/05/2025Telephone Maternal- Medicine at [facility] [address] [place] [address] Yue Bullock, BRANDT 05/04/2025Telephone Maternal- Medicine at [facility] [address] [place] [address] Daniel Walker 05/04/2025Orders Only Maternal- Medicine at [facility] [address] [place] [address] Rosy Arredondo PA-C 05/04/2025Orders Only [facility] - Labor [address] [place] [address] Rosy Arredondo PA-C 05/03/2025Orders Only Maternal- Medicine at [facility] [address] [place] [address] Debby Garcia RN 04/27/2025Documentation Maternal- Medicine at [facility] [address] [place] [address] Yue Bullock, BRANDT 04/26/2025Telephone Maternal- Medicine at [facility] [address] [place] [address] Yue Bullock, BRANDT 04/26/2025Remote Patient Monitoring Maternal- Medicine at [facility] [address] [place] [address] Ivory Quinones MD Type 1 diabetes mellitus during in second trimester [O24.012] (Primary Dx)04/20/2025 12:29 PM EST - 04/22/2025 2:20 PM ESTHospital Encounter [facility] - GEN 3 Antepartum [address] [place] [address] Criselda Green DO Uncontrolled type 1 diabetes mellitus with hyperglycemia, with long-term current use of insulin ([facility]) Discharge Disposition: Left Against Medical Advice or Discontinued Care 04/20/2025 10:30 AM ESTTelemedicine Maternal- Medicine at [facility] [address] [place] [address] Rosy Arredondo, PA-C Type 1 diabetes mellitus during in second trimester (Primary Dx) 04/20/2025Orders Only Maternal- Medicine at [facility] [address] [place] [address] Clarita Mchugh [facility] 04/20/20253090Qbbbnv24/07/2025 1:53 PM EST - 04/16/2025 11:59 PM ESTHospital Encounter [facility] - Cardiovascular [address] [place] [address] Type 1 diabetes mellitus complicating in second trimester, antepartum Discharge Disposition: Home04/16/2025Results Follow-Up Maternal- Medicine at [facility] [address] [place] [address] Georgiana Esteban MD Echo complete W/O llccombb44/06/8300Qheccf27/06/2025Orders Only Maternal- Medicine at [facility] [address] [place] [address] Katharine Howard LPN Type 1 diabetes mellitus during in second trimester (Primary Dx) 04/14/2025 8:00 AM EST - 04/14/2025 11:59 PM ESTHospital Encounter [facility] - [facility] US Imaging [address] [place] [address] Encounter for other screening follow-up Discharge Disposition: Home04/12/2025 10:00 AM ESTTelemedicine Maternal- Medicine at [facility] [address] [place] [address] Poncho Jeffrey MD Type 1 diabetes mellitus during in second trimester (Primary Dx); Type 1 diabetes mellitus during in first xigiwmbea54/03/2025Travel 04/08/2025 1:00 PM EDTTelemedicine Maternal- Medicine at [facility] [address] [place] [address] Georgiana Esteban MD 22 weeks gestation of (Primary Dx); Type 1 diabetes mellitus complicating in second trimester, antepartum; Asthma complicating in second rawjtjhca20/30/1252Ylcezz75/29/2025 Telephone Maternal- Medicine at [facility] [address] [place] [address] Carolann Urbnia, BRANDT 04/06/2025Telephone Maternal- Medicine at [facility] [address] [place] [address] Carolann Urbina, BRANDT 04/05/2025Orders Only Maternal- Medicine at [facility] [address] [place] [address] Clarita Mchugh CMA 03/29/2025 10:30 AM EDTTelemedicine Maternal- Medicine at [facility] [address] [place] [address] Rosy Arredondo, LUIS ALFREDOC Type 1 diabetes mellitus during in second trimester (Primary Dx) 03/29/20255526Cbsipq25/20/2025Orders Only Maternal- Medicine at [facility] [address] [facility] [place] [address] Lula Fernandez, BRANDT 03/29/2025Orders Only Maternal- Medicine at [facility] [address] [facility] [place] [address] Debby Garcia, BRANDT 03/24/2025Telephone Maternal- Medicine at [facility] [address] [facility] [place] [address] Maritza Milian 03/17/2025Telephone Maternal- Medicine at [facility] [address] [facility] [place] [address] Maritza Milian 03/16/2025 7:57 AM EDT - 03/16/2025 11:59 PM EDTHospital Encounter [facility] - Ultrasound [address] [place] [address] Type 1 diabetes mellitus during in first trimester Discharge Disposition: Home03/15/2025 3:30 PM EDTTelemedicine Maternal- Medicine at [facility] [address] [facility] [place] [address] Rosy Arredondo, PASocoC Type 1 diabetes mellitus during in second trimester (Primary Dx) 03/15/2025Telephone Maternal- Medicine at [facility] [address] [facility] [place] [address] Debby Garcia, BRANDT 03/15/20255065Yzcyzh63/06/2025Orders Only Maternal- Medicine at [facility] [address] [facility] [place] [address] Debby Garcia, BRANDT 03/09/2025Orders Only Maternal- Medicine at [facility] [address] [facility] [place] [address] Yahaira Miller MD 03/09/2025Orders Only Maternal- Medicine at [facility] [address] [place] [address] Yue Bullock RN 03/09/2025Remote Patient Monitoring Maternal- Medicine at [facility] [address] [place] [address] Yahaira Miller MD Pre-existing type 1 diabetes mellitus with hyperglycemia during in second trimester ([facility]) (Primary Dx)03/08/2025Orders Only Maternal- Medicine at [facility] [address] [place] [address] Clarita Mchugh CMA 03/03/2025 10:30 AM EDTTelemedicine Maternal- Medicine at [facility] [address] [place] [address] Carin Mathur, BEATER WORKER HELPER-STEAK TENDERIZER MACHINE Uncontrolled type 1 diabetes mellitus with hyperglycemia, with long-term current use of insulin ([facility]) (Primary Dx)03/03/2025Telephone Maternal- Medicine at [facility] [address] [place] [address] Lula Fernandez RN 03/03/20258738Hfmmyy06/24/2025Orders Only Maternal- Medicine at [facility] [address] [place] [address] Lula Fernandez RN 02/24/2025Telephone [facility] - Women's Services [address] [place] [address] Radha Bruno, BRANDT Outgoing Callfrom Last 3 Months Immunizations ImmunizationAdministration DatesNext DueCOVID-19, mRNA, LNP-S, PF, 30mcg/0.3mL Dose03/21/2021,02/28/2021 Family History Medical HistoryRelationNameCommentsAsthmaFatherDiabetesMaternal GrandmotherDrug abuseMotherColon cancerPaternal GrandfatherDiabetesSisterHeart murmurSister Breast cancerNeg HxCancerNeg HxHypertensionNeg HxOvarian cancerNeg HxPancreatic cancerNeg HxProstate cancerNeg HxStrokeNeg HxUterine cancerNeg HxRelationName StatusCommentsFatherAliveMaternal GrandmotherMotherDeceasedPaternal Grandfather DeceasedSister Social History Tobacco UseTypesPacks/DayYears UsedDateSmoking Tobacco: NeverSmokeless Tobacco: Never Tobacco Cessation:Counseling Given: Not Answered Alcohol UseStandard Drinks/WeekCommentsYes0 (1 standard drink = 0.6 oz pure alcohol)[facility] UtilitiesAnswerDate RecordedIn the past 12 [...] care, and heating?Not hard at all02/17/2025PHQ-2AnswerDate RecordedTotal Ldoxj604[facility] [place] [facility] - Occupational Stress QuestionnaireAnswerDate [...] of a household?No02/17/2025hildcareAnswerDate RecordedDo problems getting children's nursery assistant make it difficult for you to [...] and direction in my life.Agree02/17/2025Estimated Date of AesmubkqYqcnamsjDgk78/27/2026ased on last menstrual period of 10/30/2024Sex and Gender InformationValueDate RecordedSex Assigned at LojenFxxdug97/22/2025 1:51 AM EDTLegal SexFemale 01/13/2015 11:58 AM EDTGender DfshsmvhGnwbxm00/22/2025 1:51 AM EDTSexual OrientationNot on file Last Filed Vital Signs Vital SignReadingTime TakenCommentsBlood Gzxcwuou427/6004/22/2025 8:44 AM EST Lfkej966704/22/2025 8:44 AM BVYCculrzvpjss02.7 ??C (98.1 ??F)04/22/2025 8:44 AM ESTRespiratory Hyec934906/22/2024 8:44 AM ESTOxygen Wcmwwjcdcg35%04/21/2025 7:24 PM ESTInhaled Oxygen Concentration--Scjxny88.1 kg (161 lb 2.5 oz)04/20/2025 12:30 PM SGTLokqld920.3 cm (4' 9.99 )02/17/2025 6:00 PM EDTBody Mass Index33.69 02/17/2025 6:00 PM EDT Plan of Treatment DateTypeDepartmentCare Team (Latest Contact Info)Yuwwmnfnnws56/02/2026 3:30 PM ESTAppointment [facility] [address] [place] [address] Health MaintenanceDue DateLast DoneCommentsDiabetic Ophthalmology Exam2001 Diabetic Foot Exam2019Chlamydia Kzskptwow92dult BMI Follow Up Plan501/epression Iuzbzkzmb664COVID- 19 Vaccine ( season)/11/2021, 03/21/2021, 02/28/2021SV ( or age 60+ yrs) (1 - Risk 1-dose series)06/11/2025dult BMI Yrbsqlilm06/04/2025Tobacco Jksqnzouy17/Pap Smear /02/2025, 04/02/2022TaP,Tdap and Td Vaccines (8 - Td or Tdap) , 03/02/2013, 03/18/2008, Additional history existsInfluenza AgyydicNofrmmorv54/08/2025, 03/18/2024, 06/12/2023, Additional history exists Medical Devices ImplantedTypeAreaManufacturerDevice IdentifierShelf Expiration DateModel / Serial / LotNexplanonDescription: control implant in right upper arm Procedures Procedure NamePriorityDate/TimeAssociated DiagnosisCommentsUS [facility], 1 CRQZOOvbljtk82/04/2025 9:12 AM EST Type 1 diabetes mellitus during in second trimester EXTRA TUBES SST NOALzwthav92/13/2025 9:13 AM EST EXTRA TUBES LAVENDER NGJKbwmqvp19/13/2025 9:13 AM EST EXTRA TUBES PST OTKGdugkwv34/13/2025 9:13 AM EST EXTRA TTZCHJkpuprb41/13/2025 9:13 AM EST BEDSIDE VRXVWKGAgesctc37/12/2025 7:17 PM EST BEDSIDE GREDUIFRepcjwl82/12/2025 3:56 PM EST BEDSIDE CKKEDGEUhnyhlm53/12/2025 3:41 PM EST BEDSIDE TPXLFVHBekbalc53/12/2025 6:13 AM EST BEDSIDE WQKTICRWejhsdi46/11/2025 7:37 PM EST BEDSIDE WABRUIFNvioojh78/11/2025 7:18 PM EST REPEATED VLRUORmzlafb91/11/2025 1:14 PM EST T4, FREEAdd-On04/20/2025 1:14 PM EST TSHAdd-On04/20/2025 1:14 PM EST ACETONE,(BETAHYDROXYBUTYRATE, KETONE) QUANTITATIVE UFZOIVzpjijv20/11/2025 1:14 PM EST CBC WITH AUTO HTTLVIJNYODMOhtkqzq57/11/2025 1:14 PM EST COMPREHENSIVE METABOLIC ILBTYAnowzbl11/11/2025 1:14 PM EST ECHO COMPLETE WO VOZFVUAEVktbath99/07/2025 2:29 PM EST Type 1 diabetes mellitus complicating in second trimester, antepartum US MFM OB FOLLOW-UP, 1 SAROCPcbhtmy90/05/2025 9:34 AM EST Encounter for other screening follow-up ALPHA QUSVCXZGMADQjrnkdz03/30/2025 10:01 AM EDT Encounter for supervision of normal , unspecified, second trimester B-TYPE NATRIURETIC WTATONPHrpwsus93/30/2025 10:01 AM EDT Type 1 diabetes mellitus during in second trimester EXTRA TUBES LAVENDER ETGAhbjdxv25/30/2025 9:56 AM EDT Encounter for supervision of normal , unspecified, second trimester Uncontrolled type 1 diabetes mellitus with hyperglycemia, with long-term current use of insulin ([facility]) Type 1 diabetes mellitus during in second trimester EXTRA HFMVPXdxwupp79/30/2025 9:56 AM EDT Encounter for supervision of normal , unspecified, second trimester Uncontrolled type 1 diabetes mellitus with hyperglycemia, with long-term current use of insulin ([facility]) Type 1 diabetes mellitus during in second trimester HEMOGLOBIN A2HUleqenq32/30/2025 9:56 AM EDT Uncontrolled type 1 diabetes mellitus with hyperglycemia, with long-term current use of insulin ([facility]) [facility] COMPREHENSIVE ANATOMIC KUYUBGLqnsmpx70/07/2025 9:52 AM EDT Type 1 diabetes mellitus during in first trimester PAP HAKCOMlzppox78/24/2022 10:35 AM EDT Cervical smear, as part of routine gynecological examination CHLAMYDIA/GC BY PCR OMAIRA VZSODpowcrh15/11/2022 6:33 PM EDT Menorrhagia with irregular cycle Metrorrhagia DUB (dysfunctional uterine bleeding) from Last 3 Months or Most Recently Relevant to Health Maintenance Results * [facility] OB FOLLOW-UP, 1 FETUS (05/13/2025 9:12 AM EST) Only the most recent of3 resultswithin the time period is included. Anatomical RegionLateralityModalityOB-GYNUltrasoundSpecimen (Source)Anatomical Location / LateralityCollection Method / VolumeCollection TimeReceived Time 05/13/2025 8:44 AM EST Narrative 05/13/2025 10:52 AM EST NAME: ??DR KAELYNMURRAYLIZBETH ARROYO : 2000 SEX: F Accession Number: [id number] ORDERING PHYSICIAN: IVORY QUINONES REFERRING PHYSICIAN: BRYANT PULLIAM Coding Procedures ? 00983: Ultrasound, uterus, real time with image documentation, [...] (oz) ? 10 oz EFW by: ?Hadlock ([id number]-FL) Extended Tibia ??45.1 mm 27w 4d 40% Randolph Cork Insulator ? 2.4 mm CM ? 6.4 mm [...] measures 4.6 cm. Recommendations Please see [facility] recommendations from prior clinical and/or ultrasound report documentation. The patient is scheduled in four weeks for follow up growth ultrasound. Subsequent follow up or other follow up as clinically determined by primary OB provider unless otherwise specified by [facility]. Results forwarded to ordering provider so they can follow up with the patient as necessary. Procedure Note Yahaira Miller MD - 05/13/2025 NAME: DARREN ART : 2000 SEX: F Accession Number: [id number] ORDERING PHYSICIAN: IVORY QUINONES REFERRING PHYSICIAN: BRYANT PULLIAM Coding Procedures 03620: Ultrasound, uterus, real time with image documentation, [...] EFW (oz) 10 oz EFW by: Hadlock ([id number]-FL) Extended Tibia 45.1 mm 27w 4d 40% Randolph Cork Insulator 2.4 mm CM 6.4 mm 42% Nicolaides [...] MVP measures 4.6 cm. Recommendations Please see M recommendations from [...] EST)ComponentValueRef RangeTest MethodAnalysis TimePerformed AtPathologist SignatureExtra TubeAuto Uguqfjcd59/13/2025 11:01 AM [facility] LABORATORYSpecimen (Source)Anatomical Location / LateralityCollection Method / VolumeCollection TimeReceived TimeBloodVenous blood / Fkeevvn5204/22/2025 9:13 AM EST04/22/2025 10:09 AM EST Narrative Authorizing ProviderResult TypeResult StatusCriselda Green [facility] BLOOD ORDERABLESFinal ResultPerforming OrganizationAddressCity/State/ZIP CodePhone Number [facility] [address] [place] [address], [place] [phone] * Lavender Top (04/22/2025 9:13 AM EST) Only the most recent of2 resultswithin the time period is included. ComponentValueRef RangeTest MethodAnalysis TimePerformed AtPathologist Signature Extra TubeAuto Plfkxxyj62/13/2025 11:01 AM [facility] LABORATORYSpecimen (Source)Anatomical Location / LateralityCollection Method / VolumeCollection TimeReceived TimeBloodVenous blood / Svtjguz2004/22/2025 9:13 AM EST04/22/2025 10:09 AM EST Narrative Authorizing ProviderResult TypeResult StatusCriselda Green DOLAB BLOOD ORDERABLESFinal ResultPerforming OrganizationAddressCity/State/ZIP CodePhone Number [facility] [address] [place] [address], * PST TOP (04/22/2025 9:13 AM EST)ComponentValueRef RangeTest MethodAnalysis TimePerformed AtPathologist SignatureExtra TubeAuto Vhxctawx01/13/2025 11:01 AM [facility] LABORATORYSpecimen (Source)Anatomical Location / LateralityCollection Method / VolumeCollection TimeReceived TimeBloodVenous blood / Jyebiws2604/22/2025 9:13 AM EST04/22/2025 10:09 AM EST Narrative Authorizing ProviderResult TypeResult StatusCriselda Green DOLAB BLOOD ORDERABLESFinal ResultPerforming OrganizationAddressCity/State/ZIP CodePhone Number [facility] [address] [place] [address], * (ABNORMAL) Bedside Glucose *Place/Obtain serum glucose if >500 per glucometer. (04/21/2025 7:17 PM EST) Only the most recent of6 resultswithin the time period is included. ComponentValueRef RangeTest MethodAnalysis TimePerformed AtPathologist Signature Bedside Glucose (POC)152(H)65 - 99 mg/dL04/21/2025 7:22 PM [facility] LABORATORYSpecimen (Source)Anatomical Location / LateralityCollection Method / VolumeCollection TimeReceived Timearterial/rfgtzvfaf00/12/2025 7:17 PM EST 04/21/2025 7:22 PM EST Narrative Authorizing ProviderResult TypeResult StatusCrisleda Green DOPOINT OF CARE TEST ORDERABLESFinal ResultPerforming OrganizationAddressCity/State/ZIP CodePhone Number [facility] [address] [place] [address], [place] * ABO Rh Repeat (04/20/2025 1:14 PM EST)ComponentValueRef RangeTest Method Analysis TimePerformed AtPathologist KvusrgnazNXXV42/13/2025 10:32 AM ESTTTH BB - NXWJIVJENXmauncfv57/13/2025 10:32 AM [facility] BB - BRESpecimen (Source) Anatomical Location / LateralityCollection Method / VolumeCollection Time Received TimeBloodVenous blood / UnknownVenipuncture / Kumrpmv0104/20/2025 1:14 PM EST04/20/2025 1:33 PM EST Narrative Authorizing ProviderResult TypeResult StatusIsaac Sapphire GARIBAYBLOOD BANK TEST ORDERABLESFinal ResultPerforming OrganizationAddressCity/State/ZIP CodePhone Number [facility] JENNY DÍAZ [address] [place] [address], * (ABNORMAL) CBC auto differential (04/20/2025 1:14 PM EST)ComponentValueRef RangeTest MethodAnalysis TimePerformed AtPathologist UtefynumpHHR20.7(H)4 - 11 X10^9/L106/20/2024 1:50 PM [facility] LABORATORYRBC Count3.72 (L)3.8 - 5.2 X10^12/L106/20/2024 1:50 PM [facility] Kjgmwoqwjr98.3(L)11.7 - 15.5 g/dL04/20/2025 1:50 PM [facility] VWQERWARPZMlubuurirw26.7(L)35 - 47 %04/20/2025 1:50 PM [facility] SQXXKNWSBZYYN8977 - 100 fL04/20/2025 1:50 PM [facility] RPIFYIMWWLOYK97.327 - 34 pg04/20/2025 1:50 PM [facility] MOJKKJARMXDETZ23.532 - 36 g/dL04/20/2025 1:50 PM [facility] HIXVFHDYMUFIY02.511.5 - 15 %04/20/2025 1:50 PM [facility] LABORATORYPlatelet Ctaai857546 - 450 X10^9/L106/20/2024 1:50 PM [facility] LABORATORYMPV8.97 - 12 fL04/20/2025 1:50 PM [facility] LABORATORYNeutrophils %80.6%04/20/2025 1:50 PM EST [facility] LABORATORYLymphocytes %12.7%04/20/2025 1:50 PM EST [facility] LABORATORYMonocytes %5.6%04/20/2025 1:50 PM [facility] LABORATORYEosinophils %0.7%04/20/2025 1:50 PM [facility] LABORATORYBasophils %0.4%04/20/2025 1:50 PM [facility] LABORATORYNeutrophils Absolute (A)10.2(H)1.5 - 6.6 X10^9/L 04/20/2025 1:50 PM [facility] LABORATORYLymphocytes Absolute 1.61.0 - 3.5 X10^9/L106/20/2024 1:50 PM [facility] Monocytes Absolute0.70.0 - 0.9 X10^9/L106/20/2024 1:50 PM [facility] LABORATORYEosinophils Absolute0.10.0 - 0.4 X10^9/L106/20/2024 1:50 PM [facility] LABORATORYBasophils Absolute0.10.0 - 0.2 X10^9/L 04/20/2025 1:50 PM [facility] LABORATORYDifferential Type AUTOMATED TEGGDTOBGQSM53/11/2025 1:50 PM [facility] LABORATORYSpecimen (Source)Anatomical Location / LateralityCollection Method / VolumeCollection TimeReceived TimeBloodVenous blood / UnknownVenipuncture / Rigvnew8904/20/2025 1:14 PM EST04/20/2025 1:33 PM EST Narrative Authorizing ProviderResult TypeResult StatusIsaac Sapphire PAIGE BLOOD ORDERABLESFinal ResultPerforming OrganizationAddressCity/State/ZIP CodePhone Number [facility] [address] [place] [address], * Acetone, (BetaHydroxybutyrate, Ketone) quantitative, serum (04/20/2025 1:14 PM EST)ComponentValueRef RangeTest MethodAnalysis TimePerformed AtPathologist SignatureBETAHYDROXYBUTYRATE0.100.02 - 0.27 mmol/L106/20/2024 2:15 PM [facility] LABORATORYSpecimen (Source)Anatomical Location / Laterality Collection Method / VolumeCollection TimeReceived TimeBloodVenous blood / UnknownVenipuncture / Wutcfko5904/20/2025 1:14 PM EST04/20/2025 1:32 PM EST Narrative Authorizing ProviderResult TypeResult StatusCristofer PAIGE BLOOD ORDERABLESFinal ResultPerforming OrganizationAddressCity/State/ZIP CodePhone Number [facility] [place] [address], * TSH (04/20/2025 1:14 PM EST)ComponentValueRef RangeTest MethodAnalysis Time Performed AtPathologist SignatureTSH0.750.49 - 4.67 uIU/mL04/21/2025 9:43 AM [facility] LABORATORYSpecimen (Source)Anatomical Location / LateralityCollection Method / VolumeCollection TimeReceived TimeBloodVenous blood / UnknownVenipuncture / Sskhifh0704/20/2025 1:14 PM EST04/20/2025 1:32 PM EST Narrative Authorizing ProviderResult TypeResult StatusCristofer PAIGE BLOOD ORDERABLESFinal ResultPerforming OrganizationAddressCity/State/ZIP CodePhone Number [facility] [place] [address], * T4, free (04/20/2025 1:14 PM EST)ComponentValueRef RangeTest MethodAnalysis TimePerformed AtPathologist SignatureFREE T40.640.61 - 1.60 ng/dL04/21/2025 9:48 AM [facility] LABORATORYSpecimen (Source)Anatomical Location / LateralityCollection Method / VolumeCollection TimeReceived Time BloodVenous blood / UnknownVenipuncture / Stbkgmp1504/20/2025 1:14 PM EST 04/20/2025 1:32 PM EST Narrative Authorizing ProviderResult TypeResult StatusCristofer PAIGE BLOOD ORDERABLESFinal ResultPerforming OrganizationAddressCity/State/ZIP CodePhone Number [facility] [address] [place] [phone], * (ABNORMAL) Comprehensive metabolic panel (04/20/2025 1:14 PM EST)Component ValueRef RangeTest MethodAnalysis TimePerformed AtPathologist SignatureSODIUM 041699 - 146 mmol/L106/20/2024 2:15 PM [facility] POTASSIUM3.93.5 - 5.0 mmol/L106/20/2024 2:15 PM [facility] DDKKRGAYOHOJWALXLM88200 - 109 mmol/L106/20/2024 2:15 PM [facility] LABORATORYCARBON URNJTAB3715 - 32 mmol/L106/20/2024 2:15 PM [facility] LABORATORYANION GAP75 - 15 mmol/L106/20/2024 2:15 PM EST [facility]ORATORYBLOOD UREA ROAWYLQO02 - 23 mg/dL04/20/2025 2:15 PM [facility] LABORATORYCREATININE0.620.40 - 1.00 mg/dL 04/20/2025 2:15 PM [facility] LABORATORYComment:METHOD TRACEABLE TO IDME OHUDHETWJUCFUFH403(H)65 - 99 mg/dL04/20/2025 2:15 PM EST [facility]ORYCALCIUM8.58.5 - 10.5 mg/dL04/20/2025 2:15 PM [facility] LABORATORYTOTAL PROTEIN6.16.0 - 8.0 g/dL 04/20/2025 2:15 PM [facility] LABORATORYALBUMIN3.1(L)3.2 - 5.3 g/dL04/20/2025 2:15 PM [facility] LABORATORYALKALINE ZYPOCVGZJAJ2418 - 130 U/L106/20/2024 2:15 PM [facility] NIUEJPFBSODRX11<=41 U/L106/20/2024 2:15 PM [facility] RXWHDOTWPTXDK44(H)<=31 U/L106/20/2024 2:15 PM [facility] LABORATORYBILIRUBIN,TOTAL0.2(L)0.3 - 1.2 mg/dL04/20/2025 2:15 PM [facility] LABOR[facility]ORYEGFR Non-Race Dependent>90>=60 ml/min/1.73sq.m 04/20/2025 2:15 PM [facility] LABORATORYComment: Reported eGFR is based on the CKD-EPI 2020 equation that does not use a race coefficient. Specimen (Source)Anatomical Location / LateralityCollection Method / Volume Collection TimeReceived TimeBloodVenous blood / UnknownVenipuncture / Unknown 04/20/2025 1:14 PM EST04/20/2025 1:32 PM EST Narrative Authorizing ProviderResult TypeResult StatusIsaac Sapphire PAIGE BLOOD ORDERABLESFinal ResultPerforming OrganizationAddressCity/State/ZIP CodePhone Number [facility] [address] [place] [address], * Echo complete W/O contrast (04/16/2025 2:29 PM EST)ComponentValueRef RangeTest MethodAnalysis TimePerformed AtPathologist SignatureLVOT stroke .88ml ENCSWROLH7373 - 44 %XCELERALVIDd4.25mfZUOFJCKSGFWh0.25gaJSQPCCZAMH0.900.6 - 1.1 cmXCELERAPW0.900.6 - 1.1 cmXCELERALVOT diameter1.42amRNYALEDKEJ02.20cm/s XCELERAMV TDI E' (medial)8.27cm/sXCELERALA Volume Index13.7mL/q1TXXUPYUY/A ratio1.32XCELERAE wave deceleration ysog787.00msecXCELERAMV Peak E Jhq884.00 cm/sXCELERAMV Peak A Vel78.60cm/sXCELERALA size3.20cmXCELERAAortic root2.50cm XCELERALA swupau29.90go3LZTMLHDBD diastolic dimension (basal)27.0mmXCELERARVID d2.7xbUNONRZEXEPGX3.38cmXCELERAAV peak dzp436.00cm/sXCELERALVOT peak vel1.16 m/sXCELERAAV VTI39.00cmXCELERALVOT peak VTI26.30cmXCELERAAV mean gradient8.00 mmHgXCELERAAV peak eliwztqd83.75mmHgXCELERAAV valve area1.36XCELERAValve area - Index0.8XCELERAMV pressure 1/2 time53.00msXCELERAMV valve area p 1/2 method 4.38xt5QLVPTPEHL mean gradient3.00mmHgXCELERAPV peak gradient4.84mmHgXCELERALV ESV A2C20.70mLXCELERALV ESV A4C22.20mLXCELERALV RWT 2D45.00XCELERAAV Velocity Ratio0.67XCELERALeft Ventricle Wqar259.621040663991959iRONFNYX Interventricular Septum Diastolic Thickness by 9N5eeJSYNIZCZjj. RA pressure3 mmHgXCELERARA area9.9op5IUNVMZZQhkizdswgx RegionLateralityModalityChestN/A UltrasoundSpecimen (Source)Anatomical Location / LateralityCollection Method [...] is normal. Authorizing ProviderResult TypeResult StatusGeorgiana Esteban [facility] ECHO ORDERABLESFinal Result * (ABNORMAL) Alpha fetoprotein (04/08/2025 10:01 AM EDT)ComponentValueRef Range Test MethodAnalysis TimePerformed AtPathologist SignatureALPHA NWSNJHWXVVJ17.3 (H)<=9.9 ng/mL04/08/2025 1:25 PM [facility] Specimen (Source)Anatomical Location / LateralityCollection Method / Volume Collection TimeReceived TimeBloodVenous blood / UnknownVenipuncture / Unknown 04/08/2025 10:01 AM EDT1 10:01 AM EDT Narrative Authorizing ProviderResult TypeResult StatusKatharine JERNIGAN BLOOD ORDERABLES Final ResultPerforming OrganizationAddressCity/State/ZIP CodePhone Number [facility] [address] [place] [address], [place] [phone] * B-type natriuretic peptide (04/08/2025 10:01 AM EDT)ComponentValueRef Range Test MethodAnalysis TimePerformed AtPathologist PvppargjoASD65<=100 pg/mL 04/08/2025 11:24 AM EDTPROMEDICA CANYON RIDGE HOSPITALpecimen (Source) Anatomical Location / LateralityCollection Method / VolumeCollection Time Received TimeBloodVenous blood / UnknownVenipuncture / Cbcnwfj4804/08/2025 10:01 AM EDT1 10:01 AM EDT Narrative Authorizing ProviderResult TypeResult StatusColleen E Arnulfo PA-CLAB BLOOD ORDERABLESFinal ResultPerforming OrganizationAddressCity/State/ZIP CodePhone Number [facility] [address] [place] [address], * Hemoglobin A1c (04/08/2025 9:56 AM EDT)ComponentValueRef RangeTest Method Analysis TimePerformed AtPathologist SignatureHEMOGLOBIN A1C5.14.4 - 5.6 % 04/08/2025 1:25 PM [facility]ORATORYComment: ?ADA Guidelines ?Result ?HgbA1c ? Normal : ? less than 5.7 % ? Prediabetes : ?5.7 % ??to 6.4 % Diabetes : > 6.4 % ?Use with caution in patients with abnormal hemoglobin variants as ??the half-life of red blood cells and in vivo glycation rates are ??affected. EST. AVERAGE LYRFXEX911cz/dL04/08/2025 1:25 PM [facility] LABORATORYSpecimen (Source)Anatomical Location / LateralityCollection Method / VolumeCollection TimeReceived TimeBloodVenous blood / Opuwpif3704/08/2025 9:56 AM EDT1 10:14 AM EDT Narrative Authorizing ProviderResult TypeResult StatusCarin Mathur [facility] BLOOD ORDERABLESFinal ResultPerforming OrganizationAddressCity/State/ZIP CodePhone Number [facility] [address] [place] [address], * Pap Smear (04/02/2022 10:35 AM EDT)Specimen (Source)Anatomical Location / LateralityCollection Method / VolumeCollection TimeReceived Time04/02/2022 10:35 AM EDT1 10:37 AM EDT Narrative COPATH - 04/12/2022 12:17 PM EDT [facility] ? [address] [place] [address] ? [place] [address] ? Gynecologic Cytology Consultation ? Patient Name:KAELYN BANKS:2000 (Age: 22)Gender:FTaken:04/02/2022eported:04/12/2022hysician(s):PHILLIP Pink ([phone])Copy To: Rec. #:[id number]: #[id number] Final Cytologic Interpretation ThinPrep Pap Test (Cervical): Satisfactory for evaluation. A transformation zone component is present. NEGATIVE FOR INTRAEPITHELIAL LESION OR MALIGNANCY. ?? jja/04/12/2022 Interpretation performed at [facility], [address] [place] [address], License number: [id number]. Electronically Signed Out By ?JORGE Olson(ASCP) Date of Last Menstrual Period: ? 02/28/22 Other Clinical Conditions: Z01.419 Pick Up exam wo/abn findings Source of Specimen ??ThinPrep Pap Test (Cervical) ? Thin Prep Pap ([employer]) Fee Code(s): ?? G0145 Authorizing ProviderResult TypeResult StatusCayla Singhotzer BEATER WORKER HELPER-STEAK TENDERIZER MACHINE PATHOLOGY/CYTOLOGY ORDERABLESFinal ResultPerforming OrganizationAddress City/State/ZIP CodePhone Number [facility] * Chlamydia/GC by PCR Omaira Swab (03/20/2022 6:33 PM EDT)ComponentValueRef Range Test MethodAnalysis TimePerformed AtPathologist SignatureSpecimen sourceCERVIX 03/20/2022 9:54 PM [facility]Comment:Corrected on 03/20 AT 2154: Previously reported as SWABChlamydia DNA PCRNegativeNegative^Negative 03/21/2022 12:54 PM [facility] LABComment: ? Chlamydia trachomatis not detected by nucleic acid amplification. This does not exclude the possibility of infection because results are dependent on adequate specimen collection. ? Gonorrhea DNA PCRNegativeNegative^Foiohfan46/12/2022 12:54 PM [facility] LABComment: ? Neisseria gonorrhoeae not detected by nucleic acid amplification. This does not exclude the possibility of infection because results are dependent on adequate specimen collection. ? Specimen (Source)Anatomical Location / LateralityCollection Method / Volume Collection TimeReceived ByqpFNSK92/11/2022 6:33 PM EDT1 9:50 PM EDT Narrative Authorizing ProviderResult TypeResult StatusCorilatoya Seaman MDMICROBIOLOGY - GENERAL ORDERABLESEdited Result - FinalPerforming OrganizationAddress City/State/ZIP CodePhone Number [facility] [address] [place] [address] from Last 3 Months or Most Recently Relevant to Health Maintenance Insurance Advance Directives * Full Code (Latest Code Status on File) Date ActivatedDate InactivatedComments02/17/2025 6:35 PM02/22/2025 6:48 PM * Full Code Date ActivatedDate IdcnonkqzqoEdvrkpma62/27/2021 4:55 PM06/08/2021 4:33 PM * Full Code Date ActivatedDate InactivatedComments01/07/2018 6:44 AM01/07/2018 2:17 PM * Full Code Date ActivatedDate InactivatedComments10/23/2016 11:27 AM10/24/2016 12:42 PM * Full Code Date ActivatedDate InactivatedComments08/01/2016 12:52 AM08/01/2016 4:47 PM Care Teams Team MemberRelationshipSpecialtyStart DateEnd Date Dru Rodriguez DO [address] [place] [phone] [facility] - [facility]01/01/17
--- OUTSIDE RECORDS SUMMARY | 2025-05-25 18:48 | XMS_ITS | Encounter Summary ---
Author Organization [facility] tem Address [facility] [address] [place] [address] Care Team Providers Care Cupola Liner Helper Name Role Phone JenniferDru April MUNGUIA Primary Care Provider [phone] Encounter Details DateTypeDepartmentCare Team (Latest Contact Info)Cunzpopadpc86/25/2025Orders Only Maternal- Medicine at [facility] [address] [place] [phone] Rosy Arredondo PA-C [address] [address] Social History Tobacco UseTypesPacks/DayYears UsedDateSmoking Tobacco: NeverSmokeless Tobacco: NeverAlcohol UseStandard Drinks/WeekCommentsYes0 (1 standard drink = 0.6 oz pure alcohol)[facility] UtilitiesAnswerDate RecordedIn the past 12 [...] care, and heating?Not hard at all02/17/2025PHQ-2AnswerDate RecordedTotal Mqghd264Fincedar city hospital [place] of Occupational Health - Occupational Stress QuestionnaireAnswerDate [...] and direction in my life.Agree02/17/2025Estimated Date of LkdjlrfzDyxkuemhFlg60/27/2026ased on last menstrual period of 10/30/2024Sex and Gender InformationValueDate RecordedSex Assigned at LdpyaZdwlro86/22/2025 1:51 AM EDTLegal SexFemale 01/13/2015 11:58 AM EDTGender LyyulqllCpahoo41/22/2025 1:51 AM EDTSexual OrientationNot on filedocumented as [...] Plan of Treatment DateTypeDepartmentCare Team (Latest Contact Info)Peffjksjqjl02/02/2026 3:30 PM ESTAppointment [facility] Imaging [address] [place] [address] documented as of this encounter Visit Diagnoses Not on filedocumented in this encounter Additional Health Concerns AssessmentNoted TimePHQ-9 Depression Total Score: 8:31 AM ESTA Body Mass Index follow-up plan has been documented for the vrrqtjt4606/12/2023 4:35 PM ESTdocumented as of this encounter Care Teams Team MemberRelationshipSpecialtyStart DateEnd Date Dru Rodriguez DO [address] [place] [address] PCP - General01/01/17documented as of this encounter
--- OUTSIDE RECORDS SUMMARY | 2025-05-25 18:48 | XMS_ITS | Encounter Summary ---
Author Organization [facility] Address [address] [place] [address] Care Team Providers Care Cosmetics Presser Name Role Phone Joaquín Rodriguez DO Primary Care Provider [phone]- [phone] Joaquín Rodriguez DO Unavailable [phone] Encounter Details DateTypeDepartmentCare Team (Latest Contact Info)Hnusmejgexj11/12/2025Clinisync Result Encounter [facility] Department Unsolicited Bryant Cao DO [address] [place] [address] Social History Tobacco UseTypesPacks/DayYears UsedDateSmoking Tobacco: NeverSmokeless [...] relatives?Twice a week03/11/2023How often do you attend buddhism or cheondoism services?1 to 4 times per year03/11/2023o you belong to any clubs or organizations such as buddhism groups, unions, fraternal or athletic laura ups, or school groups?No03/11/2023How often do you attend meetings of the clubs or organizations you belong to?Never03/11/2023re you , , , , never , or living with a partner?Suxwfcm6303/11/2023 AUDIT-CAnswerDate RecordedQ1: How often do you have a drink containing alcohol? Monthly or less03/11/2023Q2: How many drinks containing alcohol do you have on a typical day when you are drinking?3 or Q3: How often do you have six or more drinks on one occasion?Less than ixgghlt0603/11/2023Overall Financial Resource Strain (CARDIA)AnswerDate RecordedHow hard is it for you to pay for the very basics like food, housing, medical care, and heating?Somewhat hard 03/11/2023HQ-2AnswerDate RecordedPatient Health Questionnaire-2 Score0 03/25/2025Finjordan valley medical center [place] of Occupational Health - Occupational Stress QuestionnaireAnswerDate [...] slept in ashelter (including now)?No03/11/2023Estimated Date of FdfyexknXqbmzfmsKqv07/27/2026ased on last menstrual period of 10/30/2024Sex and Gender InformationValueDate RecordedSex Assigned at OkhdpZzvqwc43/01/2023 1:10 PM EDTLegal FjjLylgkj19/15/2023 6:51 PM EDTGender SzzpaefwNrdlgk81/01/2023 1:10 PM EDTSexual NdzvbqcsiooLebfovre61/01/2023 1:10 PM EDTdocumented as of this encounter Plan of Treatment DateTypeDepartmentCare Team (Latest Contact Info)Zucrveadclw20/22/2025 3:30 PM ESTRoutine [facility] Issac PORTILLO [address] [place] [address] Bryant Cao, [address] [place], [place] [address] 06/16/2025 4:00 PM ESTRoutine NOMAislinn PORTILLO [address] [place] [address] Dixie Gan, RN EMERGENCY [address] [place] [address] documented as of this encounter Goals GoalPatient Goal TypeAssociated ProblemsRecent ProgressPatient-Stated?Author Reminders Care PlanOB RemindersNoOpen Scheduling, Backgrounddocumented as of this encounter Procedures Procedure NamePriorityDate/TimeAssociated DiagnosisCommentsUS OB BPP W NON-OFDOTA7405/21/2025 8:39 PM EST documented in this encounter Results * US OB BPP W NON-STRESS (05/21/2025 8:39 PM EST)Anatomical Region LateralityModalityOtherSpecimen (Source)Anatomical Location / Laterality Collection Method / VolumeCollection TimeReceived Time05/21/2025 8:39 PM EST Narrative 05/21/2025 8:43 PM EST [facility] ?[address] ? [place] [address] ? Ultrasound Report ? Signed ? Patient: KAELYN SHAW ?MR#: [id number] ?? : 2000 ?Acct:[id number] ?? Age/Sex: 25 / F ?ADM Date: 05/21/25 ?? Loc: US ? Attending Dr: Bryant Cao D.O. ? Ordering Physician: Bryant Cao D.O. ?? Date of Service: 05/21/25 ?? Procedure(s): US OB BPP w non-stress ?? Accession Number(s): [id number] ? cc: Bryant Cao D.O.; JOAQUÍN RODRIGUEZ ? [facility] ? [facility] [address] ? [place] [address] ? Patient Name: ?? KAELYN SHAW ? [facility]:[id number] ? date: 2000 ?Sex: F ?? Assigned Patient Location: ?? Current Patient Location: ? Accession/Order Number: [id number] ?? Exam Date: 05/21/2025 ??19:56 ?Report Date: 05/21/2025 ??20:39 ? At the request of: ?? BRYANT ??KILEY ??DO ? Procedure: ??US OB BPP w non-stress ? Ultrasound biophysical profile ? INDICATION: Type 1 diabetes during ? COMPARISON: 05/14/2025 ? FINDINGS IMPRESSION: SINGLE LIVE INTRAUTERINE IN CEPHALIC POSITION. ? HEART RATE 138 BPM. ??AMNIOTIC FLUID INDEX 12.9 CM. ??BIOPHYSICAL PROFILE ?? SCORE 8/8 ? Impression dictated by: Kaveh Romeo M.D. ??05/21/2025 8:39 PM ? Dictation Location: RADIO-PC-29 ? Electronically authenticated by: [id number] ??Y ?? Date: 05/21/2025 ??20:39 ? Dictated By: ?Kaveh Romeo M.D. ? Signed By: ?05/21/252042 ? DD/ 38 ? TD/TT: ? Manager Six Sigma: Procedure Note Radiology, Radiologist, MD - 05/21/2025 [place] [address] Ultrasound Report Signed Patient: KAELYN SHAW MMR#: [id number] : 2000Acct:[id number] Age/Sex: 25 / FADM Date: 05/21/25 Loc: US Attending Dr: Bryant Cao D.O. Ordering Physician: Bryant Cao D.O. Date of Service: 05/21/25 Procedure(s): US OB BPP w non-stress Accession Number(s): [id number] cc: Bryant Cao D.O.; JOAQUÍN RODRIGUEZ [place] [id number] Patient Name: KAELYN SHAW MRN: [facility]:[id number] date: 2000 Sex: F Assigned Patient Location: US Current Patient Location: Accession/Order Number: [id number] Exam Date: 05/21/2025 19:56 Report Date: 05/21/2025 20:39 At the request of: BRYANT CAO DO Procedure: US OB BPP w non-stress Ultrasound biophysical profile INDICATION: Type 1 diabetes during COMPARISON: 05/14/2025 FINDINGS IMPRESSION: SINGLE LIVE INTRAUTERINE IN CEPHALICPOSITION. HEART RATE 138 BPM. AMNIOTIC FLUID INDEX 12.9 CM. BIOPHYSICALPROFILE SCORE 8/8 Impression dictated by: Kaveh Romeo M.D. 05/21/2025 8:39 PM Dictation Location: [place] [address] Electronically authenticated by: [id number] Y Date: 520:39 Dictated By: Kaveh Romeo M.D. Signed By:05/21/252042 DD/ 38 TD/TT: Manager Six Sigma: Authorizing ProviderResult TypeResult StatusCorey Kiley DOCLINISYNC IMAGINGFinal Result documented in this encounter Visit Diagnoses Not on filedocumented in this encounter Additional Health Concerns Active ProblemsNoted DateDiagnosed DateOB Qtubndykh11/24/2025 documented as of this encounter Care Teams Team MemberRelationshipSpecialtyStart DateEnd Date Joaquín Rodriguez DO [address] [place] [address] [facility]22 Joaquín Rodriguez DO [address] [place] [address] PCP - Medical Luck Jmtldbinfq37/1/2312documented as of this encounter
--- OUTSIDE RECORDS SUMMARY | 2025-05-25 18:48 | XMS_ITS | Encounter Summary ---
Author Organization [facility] tem Address [facility] [address] [place] [address] Care Team Providers Care Hybrid Car Mechanic Name Role Phone Dru Rodriguez DO Primary Care Provider [phone] Reason for Referral * Diagnostic Imaging (Routine) - Pending ReviewSpecialtyDiagnoses / Procedures Referred By ContactReferred To ContactMaternal and Medicine Diagnoses Type 1 diabetes mellitus during in second trimester Procedures US MFM with or without consult Yahaira Miller MD [address] [address] Phone: tel: fax: Maternal- Medicine at [facility] [address] [place] [address] Phone: tel: fax: Referral IDStatusReasonStart DateExpiration DateVisits RequestedVisits [id number] Encounter Details DateTypeDepartmentCare Team (Latest Contact Info)Drlgycpylcr23/04/2025Orders Only Maternal- Medicine at [facility] [address] [place] [address] Becca Natarajan RN Type 1 diabetes mellitus during in second trimester (Primary Dx) Social History Tobacco UseTypesPacks/DayYears UsedDateSmoking Tobacco: NeverSmokeless Tobacco: NeverAlcohol UseStandard Drinks/WeekCommentsYes0 (1 standard drink = 0.6 oz pure alcohol)socialSELECT MEDICAL [facility] UtilitiesAnswerDate RecordedIn the past 12 months has [...] care, and heating?Not hard at all02/17/2025PHQ-2AnswerDate RecordedTotal Vilmo361Finriverton hospital [place] of Occupational Health - Occupational Stress QuestionnaireAnswerDate [...] a household?No02/17/2025hildcareAnswerDate RecordedDo problems getting early childhood worker make it difficult for you to [...] and direction in my life.Agree02/17/2025Estimated Date of KsqyxvdeZqqmznbaRdb37/27/2026ased on last menstrual period of 10/30/2024Sex and Gender InformationValueDate RecordedSex Assigned at UscjkMmbjjv66/22/2025 1:51 AM EDTLegal SexFemale 01/13/2015 11:58 AM EDTGender IagtquyqXwwjhv79/22/2025 1:51 AM EDTSexual OrientationNot on filedocumented as of this encounter Plan of Treatment DateTypeDepartmentCare Team (Latest Contact Info)Mmchypvnggo63/02/2026 3:30 PM ESTAppointment [facility] US Imaging [address] [place] [id number] NameTypePriorityAssociated DiagnosesOrder ScheduleUS [facility] with or without consult ImagingRoutine Type 1 diabetes mellitus during in second trimester Expected: 05/13/2026 (Approximate), Expires: 08/11/2026documented as of this encounter Visit Diagnoses Diagnosis Type 1 diabetes mellitus during in second trimester- Primary documented in this encounter Additional Health Concerns AssessmentNoted TimePHQ-9 Depression Total Score: 401 8:31 AM ESTA Body Mass Index follow-up plan has been documented for the flqhtcg4006/12/2023 4:35 PM ESTdocumented as of this encounter Care Teams Team MemberRelationshipSpecialtyStart DateEnd Date Dru Rodriguez DO [address] [place] [address] PCP - General01/01/17documented as of this encounter
--- OUTSIDE RECORDS SUMMARY | 2025-05-25 18:48 | XMS_ITS | Clinical Summary ---
Author Organization [facility] Healthcare Address [address] [place] [address] Care Team Providers Care Densitometrist Name Role Phone Joaquín Dillon DO Primary Care Provider [phone] Joaquín Dillon DO Unavailable [phone] Allergies Active AllergyReactionsCriticalityNoted DateCommentsAmoxicillinAnaphylaxisHigh 05/23/2016 Mouth irritation XdocwiaxnniBsxwcxfzambQfcl64/14/2016 Has since taken without reaction Medications MedicationSigDispense QuantityRefillsLast FilledStart DateEnd DateStatus Continuous Blood Gluc Transmit (Dexcom G6 transmitter) [facility] Indications:Type 1 diabetes mellitus without complication (HCC)Inject 1 each under the skin every 3 (three) months. Use as instructed 1 each 3Active insulin glargine (Lantus SoloStar) 100 UNIT/ML pen Indications:Type 1 diabetes mellitus without complication (HCC)inject 22 units subcutaneously once daily 3 mL 4Active Insulin Disposable Pump (Omnipod 5 GfeQ3X7 Pods Gen 5) misc Indications:Type 1 diabetes mellitus without complication (HCC)Inject 1 each under the skin every 3 (three) days CHANGE POD EVERY 3 DAYS DIRECTED 30 each 5Active HumaLOG 100 UNIT/ML solution Indications:Type 1 diabetes mellitus without complication (HCC)USE PER INSULIN PUMP INSTRUCTION MAX OF 80 UNITS DAILY 30 mL 5Active Vit w/Nm-Sungfrvjj-KP (PNV PO) Take by mouthActive Acetone, Urine, Test (Ketone Test) strip check urine FOR ketones with blood glucose greater THAN 250 mg/dLActive aspirin 81 MG EC tablet Take 81 mg by mouth in the morning.5Active cholecalciferol (Vitamin D-3) 1.25 MG (26476 UT) capsule every week5Active Continuous Glucose Sensor (Dexcom G7 Sensor) misc USE WITH OMNIPOD 5 TO MANAGE BLOOD SUGARS AND CHANGE EVERY 10 DAYS01/21/2025 Active doxylamine (Unisom) 25 MG tablet Take 25 mg by mouth 4 (four) times a day as dtskxe7201/08/2025tive Baqsimi One Pack 3 MG/DOSE nasal powder Use to treat unresponsive omahweykdzbq87/11/2025tive OneTouch Ultra Test test strip USE 1 STRIP TO CHECK GLUCOSE 4 TIMES DAILY10/14/2024tive ondansetron ODT (Zofran-ODT) 4 MG disintegrating tablet DISSOLVE 1 TABLET UNDER THE TONGUE EVERY 8 HOURS NEEDED FOR NAUSEA for up to 10 doses01/08/2025tive promethazine (Phenergan) 25 MG tablet Take 25 mg by mouth every 6 (six) hours if eesdnl2901/08/2025tive pyridoxine (Vitamin B-6) 100 MG tablet Take 100 mg by mouth in the morning.Active Active Problems ProblemNoted DateDiagnosed DateHypoglycemia associated with rarczbxy08/30/2025 Mixed obsessional thoughts and acts4PTSD (post-traumatic stress disorder)09/06/2023Type 1 diabetes mellitus without ipjxdmjlczryw40/28/2023 Assessment & Plan (03/11/2024 7:46 PM EDT): [...] with hypoglycemia and without coma02/04/2023ulging lumbar disc11/08/2022hronic qjyuzht9311/08/2022Lumbago with sciatica, left side 11/08/20226707Egwtouim40/01/2023iliary jzsuboqnim07/01/2023eneralized anxiety gambueef71/25/2017Panic disorder without ukxhzuuhwyd89/25/2017Celiac disease in pediatric euhdatm3905/23/2016Mild intermittent ykidhe2105/23/2016Diabetes type 1, puxyxwnmtp50/18/2011Estimated Date of ExdgxwbaBmukpongOhm33/27/2026ased on last menstrual period of 10/30/2024 Resolved Problems ProblemNoted DateDiagnosed DateResolved DateChronic fywsyabyolxji82/22/2023 08/05/2023lood chtwgzu95Hypoglycemia due to type 1 diabetes izqrhrxj55Other chronic painRight upper quadrant painiabetic ketoacidosis associated with type 1 diabetes ihyxswpo43cute renal jklrhwiadjvor76/11/2017 08/05/2023Mechanical breakdown of insulin pumpType 1 diabetes mellitus with ketoacidosis without coma Encounters DateTypeDepartmentCare ShvqUkafwfrusvk70/12/2025linisync Result Encounter [facility] External Department Unsolicited Kiley, Bryant, 05/18/2025 2:40 PM ESTRoutine [facility] [place] [phone] Katharine Cummins PA 28 weeks gestation of ([facility]); Type 1 diabetes mellitus during , antepartum ([facility]); Third trimester ([facility])05/18/2025amboo flowsheet [facility] [place] [facility] [place] [phone] Katharine Cummins PA 05/14/2025linisync Result Encounter NOMS External Department Unsolicited Bryant Cao, DO 05/12/2025Telephone [facility] [place] [facility] [address] [facility] [place] [address] Nicolasa Bailey MA 04/27/2025 9:40 AM ESTRoutine [facility] [place] [phone] Bryant Cao DO Hospital discharge follow-up; Second trimester ([facility]); 25 weeks gestation of ([facility]); UTI vafxjsul76/18/2025amb flowsheet [facility] [place] [facility] [address] [facility] [place] [address] Bryant Cao DO 04/26/2025Patient Outreach [facility] [address] [place] [address] Patria Woods LPN 04/26/2025Telephone [facility] [address] [facility] [place] [address] Stella Webb MA 04/23/2025Telephone [facility] [place] [facility] [address] [facility] [place] [address] Cindi Jacinto LPN 04/15/2025linisync Result Encounter NOM[facility] External Department Unsolicited Bryant Cao, DO 04/14/2025bstract [facility] [address] [place] [address] KileyBryant diaz, DO 04/08/2025 1:50 PM EDTRoutine [facility] [address] [facility] [place] [address] Katharine Cummins PA Second trimester ([facility]); 22 weeks gestation of ([facility]); Yeast fuhobtoqx90/30/2025Patient Outreach N[facility] [address] [place] [phone] Aline Dudley RN 03/30/2025[facility] [address] [place] [address] Kristopher Calvo, OD 03/25/2025 8:45 AM EDTOffice Visit [facility] [address] [place] [address] Joaquín Dillon, DO Routine general medical examination at a health care facility (Primary Dx); Generalized anxiety disorder; Celiac disease in pediatric patient (HCC); Mild intermittent asthma, unspecified whether complicated ([facility])03/25/2025Orders Only [facility] [address] [place] [address] Joaquín Dillon, DO 03/25/2025Telephone [facility] [address] [place] [address] Lesa Boss LPN 03/25/2025amboo flowsheet [facility] [address] [place] [address] Joaquín Dillon, DO 03/25/20256038Eqpfjp67/14/2025 8:50 AM EDTRoutine [facility] [address] [facility] [place] [address] Bryant Cao, DO Second trimester ([facility]); 20 weeks gestation of ([facility]); Type 1 diabetes mellitus during , antepartum ([facility])03/23/2025 Abstract [facility] [address] [facility] [place] [address] Bryant Cao, DO 5Bamboo flowsheet [facility] [place] [facility] [address] [facility] [place] [address] Bryant Cao, 5Clinisync Result Encounter NOMS External Department Unsolicited Bryant Cao, DO 03/08/2025Patient Outreach [facility] [address] [place] [place] [address] Aline Dudley RN 02/24/2025Patient Outreach [facility] [address] [place] [place] [address] Patria Woods LPN 02/23/2025Telephone [facility] [place] [facility] [address] [facility] [place] [address] Stella Webb MA 02/23/2025Telephone [facility] [place] [facility] [address] [facility] [place] [address] Stella Webb MA Error (VOID this visit)02/23/2025Orders Only [facility] [place] [facility] [address] [facility] [place] [address] Aline Fernández LPN from Last 3 Months Immunizations ImmunizationAdministration DatesNext CppFDU348199SBcI88/23/2004DTaP, Wqlyslfhlfw45/13/2006,11/24/2002,2001,2001HPV, Quadrivalent 08/27/2013,08/21/2013,04/06/2013,03/02/2013Hep B, Adolescent or Pediatric 11/24/2002,2001,2001HiB, /17/2003,2001,2001 Hib (PRP-T)03/02/2004IPV1,12/20/2005,2001Influenza, injectable, nqlwkvckjxza79/26/2021Influenza, injectable, quadrivalent, preservative free 06/12/2023,05/11/2022Influenza, seasonal, injectable, preservative free 03/17/2025,03/18/2024MMR1,12/20/2005,11/24/2002Meningococcal MCV4P 01/22/2018,03/02/2013PPD Test06/12/2023,06/05/2023,05/18/2022,05/11/2022 Pneumococcal Conjugate PCV 7008/05/2001Polio, Eiqlgkyduae16/17/2003,2001 Tdap107/31/2022,03/02/20133220Xsuvrskho46/21/2023,03/02/2013,03/18/2008,12/20/2005 Family History Medical HistoryRelationNameCommentsArthritisFatherJohn SeamonAsthmaFatherJohn SeamonStrokeMaternal GrandmotherCynthia HicksDrug abuseMotherKristy SeamonCancer OtherStrokeOtherStrokePaternal GrandfatherDiabetesSister 2Jkarina MelendezRelation TfosGlrywxHkevqzabSugkldfv9XtkornIikb SeamonAliveMaternal GrandmotherCynthia HicksMotherKristy SeamonDeceasedOtherHalf BrotherPaternal GrandfatherSister 1x2 [...] week03/11/2023How often do you attend methodist or anabaptism services?1 to 4 times per year03/11/2023o you belong to any clubs or organizations such as methodist groups, unions, fraIdea Village or athletic laura ups, or school groups?No03/11/2023How often do you attend meetings of the clubs or organizations you belong to?Never03/11/2023re you , , , , never , or living with a partner?Tjfydct4103/11/2023 AUDIT-CAnswerDate RecordedQ1: How often do you have a drink containing alcohol? Monthly or less03/11/2023Q2: How many drinks containing alcohol do you have on a typical day when you are drinking?3 or Q3: How often do you have six or more drinks on one occasion?Less than gkkrbrv5803/11/2023Overall Financial Resource Strain (CARDIA)AnswerDate RecordedHow hard is it for you to pay for the very basics like food, housing, medical care, and heating?Somewhat hard 03/11/2023HQ-2AnswerDate RecordedPatient Health Questionnaire-2 Score0 03/25/2025Final[facility] [place] [facility] Occup[facility] Health - Occupational Stress QuestionnaireAnswerDate [...] place to sleep or slept in [facility] (including now)?No03/11/2023Estimated Date of XjoecpfvOtzxhoyqLng72/27/2026ased on last menstrual period of 10/30/2024Sex and Gender InformationValueDate RecordedSex Assigned at JwlttBjemui12/01/2023 1:10 PM EDTLegal WyhQnfxjf13/15/2023 6:51 PM EDTGender LzwybvclQjrhrc20/01/2023 1:10 PM EDTSexual FpajaqxokvgLencpjkp89/01/2023 1:10 PM EDT Last Filed Vital Signs Vital SignReadingTime TakenCommentsBlood Wfdexjns997/8012 2:46 PM EST 134/84- juawqnkChytz2847/16/2025 8:46 AM GKSAhepcmagzmx95 ??C (96.8 ??F) 03/25/2025 8:46 AM EDTRespiratory Rate--Oxygen Efbwuvbetz63%03/25/2025 8:46 AM EDTInhaled Oxygen Concentration--Viwrgm04.7 kg (171 lb 6.4 oz)05/18/2025 2:46 PM QHXTniltp278.3 cm (4' 10 )03/25/2025 8:46 AM EDTBody Mass Index35.8203/25/2025 8:46 AM EDT Plan of Treatment DateTypeDepartmentCare Team (Latest Contact Info)Ngpsczwawnn58/22/2025 3:30 PM ESTRoutine [facility] [address] [facility] [place] [address] Bryant Cao DO [address] [facility] [address] [place], [place] [address] 06/16/2025 4:00 PM ESTRoutine NOMAislinn [facility] [address] [facility] [place] [address] Dixie Gan, SCRAP BALLER [address] [facility] [address] [place] [address] Health MaintenanceDue DateLast DoneCommentsPneumococcal Vaccine: Pediatrics (0 to 5 Years) and At-Risk Patients (6 to 64 Years) (1 of 2 - PCV)02/12/2020 2001COVID-19 Vaccine ( season)/11/2021, 03/21/2021, 1Diabetes: Hemoglobin A1C61, 12/15/2024, 12/15/2024, Additional history existsDiabetes: Urine Protein Znzqvsahx03/20/91349510/27/2024, 11/11/2023, 11/11/2023, Additional history existsDiabetes: Retinopathy Screening 71, 06/30/2019Influenza EzqxkpjVsipspwdd22/08/2025, 03/18/2024, 06/12/2023, Additional history exists Goals GoalPatient Goal TypeAssociated ProblemsRecent ProgressPatient-Stated?Author Reminders Care PlanOB RemindersNoOpen Scheduling, Background Procedures Procedure NamePriorityDate/TimeAssociated DiagnosisCommentsUS OB BPP W NON-TTSSAR7705/21/2025 8:39 PM EST POCT URINALYSIS ZJIRXHMOWvachoa68/09/2025 2:51 PM EST 28 weeks gestation of ([facility]) Third trimester ([facility]) US OB BPP W NON-LQIAAS0205/14/2025 7:38 PM EST URINARY TRACT INFECTION (HTRX)Feonkjy0704/27/2025 12:15 PM EST POCT URINALYSIS UBCYLFOBPggbgnk00/18/2025 9:55 AM EST 25 weeks gestation of ([facility]) US OB PIJOFITU72/06/2025 8:24 AM EST POCT URINALYSIS NVBBXFCPYcamuvc92/30/2025 2:07 PM EDT Second trimester ([facility]) ALPHA FETOPROTEIN, TUMOR NNXWLPMlengeg60/30/2025 10:01 AM EDT DIABETIC RETINOPATHY SCREENING - OU - BOTH RCUOWkznhgk88/21/2025 12:15 PM EDT CULTURE, URINE, ODMFNJWFsygscd88/15/2025 8:04 AM EDT Missed menses POCT URINALYSIS FHQLXYYEYwfhabu13/14/2025 9:03 AM EDT 20 weeks gestation of ([facility]) URINE CULTURE, GDYAWPMUzzxixx42/11/2025 7:28 AM EDT [facility] URINE MICROSCOPIC DSWCPliltnm58/11/2025 7:28 AM EDT NEKEMBOBKmyslcb79/11/2025 7:28 AM EDT [facility] UA (CLEAN/CATCH) JEWELRY MANAGER/MICRO IF IND.Qnopvgx9503/20/2025 7:28 AM EDT HEMOGLOBIN D7OOhizlxr87/08/2025 10:24 AM EDTMICROALBUMIN / CREATININE URINE CBVYSEdebsxr33/20/2025 from Last 3 Months or Most Recently Relevant to Health Maintenance Results * US OB BPP W NON-STRESS (05/21/2025 8:39 PM EST) Only the most recent of2 resultswithin the time period is included. Anatomical RegionLateralityModalityOtherSpecimen (Source)Anatomical Location / LateralityCollection Method / VolumeCollection TimeReceived Time05/21/2025 8:39 PM EST Narrative 05/21/2025 8:43 PM EST [facility] ?[address] ? [place] [address] ? Ultrasound Report ? Signed ? Patient: KAELYN BANKS ?MR#: [id number] ?? : 2000 ?Acct:[id number] ?? Age/Sex: 25 / F ?ADM Date: 05/21/25 ?? Loc: US ? Attending Dr: Braynt Cao D.O. ? Ordering Physician: Bryant Cao D.O. ?? Date of Service: 05/21/25 ?? Procedure(s): US OB BPP w non-stress ?? Accession Number(s): [id number] ? cc: Bryant Cao D.O.; JOAQUÍN DILLON ? [facility] ? [address] ? [place] [address] ? Patient Name: ?? KAELYN BANKS ? MRN: TBH:[id number] ? date: 2000 ?Sex: F ?? Assigned Patient Location: ?? Current Patient Location: ? Accession/Order Number: [id number] ?? Exam Date: 05/21/2025 ??19:56 ?Report Date: [...] Dictation Location: RADIO-PC-29 ? Electronically authenticated by: [id number] ??Y ?? Date: 05/21/2025 ??20:39 ? Dictated By: ?Kaveh Romeo M.D. ? Signed By: ?05/21/252042 ? DD/ 38 ? TD/TT: ? Site Worker: Procedure Note Radiology, Radiologist, MD - 05/21/2025 [place] [address] Ultrasound Report Signed Patient: KAELYN BANKS#: [id number] : 2000Acct:[id number] Age/Sex: 25 / FADM Date: 05/21/25 Loc: US Attending Dr: Bryant Cao D.O. Ordering Physician: Bryant Cao D.O. Date of Service: 05/21/25 Procedure(s): US OB BPP w non-stress Accession Number(s): [id number] cc: Bryant Cao D.O.; JOAQUÍN DILLON [place] [id number] Patient Name: KAELYN BANKS MRN: [id number] date: 2000 Sex: F Assigned Patient Location: US Current Patient Location: Accession/Order Number: [id number] Exam Date: 05/21/2025 19:56 Report Date: 05/21/2025 20:39 At the request of: BRYANT CAO DO Procedure: US OB BPP w non-stress Ultrasound biophysical profile INDICATION: Type 1 diabetes during COMPARISON: 05/14/2025 FINDINGS IMPRESSION: SINGLE LIVE INTRAUTERINE IN CEPHALICPOSITION. HEART RATE 138 BPM. AMNIOTIC FLUID INDEX 12.9 CM. BIOPHYSICALPROFILE SCORE 8/8 Impression dictated by: Kaveh Romeo M.D. 05/21/2025 8:39 PM Dictation Location: [place] [address] Electronically authenticated by: [id number] Y Date: 0:39 Dictated By: Kaveh Romeo M.D. Signed By:05/21/252042 DD/ 38 TD/TT: Site Worker: Authorizing ProviderResult TypeResult StatusCorey Kiley DOCLINISYNC IMAGINGFinal Result * (ABNORMAL) POCT urinalysis dipstick manually [...] Location / LateralityCollection Method / VolumeCollection TimeReceived UszxDvsgv79/09/2025 2:51 PM EST Narrative Authorizing ProviderResult TypeResult StatusAmy South County HospitalOINT OF CARE TEST ENTER/EDIT ORDERABLESFinal Result * URINARY TRACT INFECTION (HTRX) (04/27/2025 12:15 PM EST)ComponentValueRef RangeTest MethodAnalysis TimePerformed AtPathologist SignatureACINETOBACTER EDXLBAVY691.961 - 24.689 ppm04/28/2025 6:33 AM ESTHealthTrackRx at [facility] ACINETOBACTER BAUMANIINot Hfxyzqhn62.961 - 24.689 ppm04/28/2025 6:33 AM EST [facility] at LabPortCITROBACTER CGVGPNYB025.000 - 32.015 ppm04/28/2025 6:33 AM ESTHealthTrackRx at LabPortCITROBACTER FREUNDIINot Nlfbkrbw98.000 - 32.015 ppm04/28/2025 6:33 AM ESTHealthTrackRx at LabPortENTEROBACTER AEROGENES, PAQSRQP797.000 - 32.290 ppm04/28/2025 6:33 AM ESTHealthTrackRx at LabPortENTEROBACTER AEROGENES, CLOACAENot Pijerkgj30.000 - 32.290 ppm 04/28/2025 6:33 AM ESTHealthTrackRx at LabPortENTEROCOCCUS FAECALIS, FAECIUM0 26.000 - 33.043 ppm04/28/2025 6:33 AM ESTHealthTrackRx at LabPortENTEROCOCCUS FAECALIS, FAECIUMNot Thmufmdv01.000 - 33.043 ppm04/28/2025 6:33 AM EST [facility] at LabPortESCHERICHIA PMEA190.000 - 28.500 ppm04/28/2025 6:33 AM ESTHealthTrackRx at LabPortESCHERICHIA COLINot Bgnhpees27.000 - 28.500 ppm 04/28/2025 6:33 AM ESTHealthTrackRx at LabPortKLEBSIELLA PNEUMONIAE, OXYTOCA0 23.000 - 31.865 ppm04/28/2025 6:33 AM ESTHealthTrackRx at LabPortKLEBSIELLA PNEUMONIAE, OXYTOCANot Iejhwdfu92.000 - 31.865 ppm04/28/2025 6:33 AM EST [facility] at LabPortMORGANELLA XANWMMQK928.961 - 24.689 ppm04/28/2025 6:33 AM ESTHealthTrackRx at LabPortMORGANELLA MORGANIINot Wlwpuvdt26.961 - 24.689 ppm04/28/2025 6:33 AM ESTHealthTrackRx at LabPortPROTEUS MIRABILIS, VULGARIS0 23.000 - 28.500 ppm04/28/2025 6:33 AM ESTHealthTrackRx at LabPortPROTEUS MIRABILIS, VULGARISNot Suzbqvox83.000 - 28.500 ppm11 6:33 AM EST [facility] at LabPortPSEUDOMONAS FMWMYVMDOE903.000 - 31.801 ppm04/28/2025 6:33 AM ESTHealthTrackRx at LabPortPSEUDOMONAS AERUGINOSANot Khxnthfi48.000 - 31.801 ppm04/28/2025 6:33 AM ESTHealthTrackRx at LabPortSTAPHYLOCOCCUS AUREUS0 26.000 - 31.595 ppm04/28/2025 6:33 AM ESTHealthTrackRx at [facility] STAPHYLOCOCCUS AUREUSNot Gtrqaenl96.000 - 31.595 ppm04/28/2025 6:33 AM EST [facility] at LabPortSTREPTOCOCCUS AGALACTIAE (GROUP B STREP)026.000 - 32.435 ppm04/28/2025 6:33 AM ESTHealthTrackRx at LabPortSTREPTOCOCCUS AGALACTIAE (GROUP B STREP)Not Fwgdvwur73.000 - 32.435 ppm04/28/2025 6:33 AM ESTHealthTrackRx at LabPortCANDIDA ALBICANS, PARAPSILOSIS, TEJQCCGFWT595.000 - 30.347 ppm04/28/2025 6:33 AM ESTHealthTrackRx at LabPortCANDIDA ALBICANS, PARAPSILOSIS, TROPICALISNot Flmzpwzh29.000 - 30.347 ppm04/28/2025 6:33 AM EST [facility] LabPortCANDIDA ZJJVSWWH487.000 - 31.618 ppm04/28/2025 6:33 AM ESTHealthTrackRx at LabPortCANDIDA GLABRATANot Amhhefll52.000 - 31.618 ppm 04/28/2025 6:33 AM ESTHealthTrackRx at LabPortCANDIDA QAOXLO602.000 - 30.873 ppm04/28/2025 6:33 AM ESTHealthTrackRx at LabPortCANDIDA KRUSEINot Detected 23.000 - 30.873 ppm04/28/2025 6:33 AM ESTHealthTrackRx at LabPortSERRATIA SMIWPPJPGD487.000 - 31.581 ppm04/28/2025 6:33 AM ESTHealth[facility]Rx [facility] SERRATIA MARCESCENSNot Dvxwbtya88.000 - 31.581 ppm11/ 6:33 AM EST [facility] at LabPortSTREPTOCOCCUS PYOGENES (GROUP A STREP)019.961 - 24.689 ppm04/28/2025 6:33 AM ESTHealthTrackRx at LabPortSTREPTOCOCCUS PYOGENES (GROUP A STREP)Not Oyoujjal71.961 - 24.689 ppm04/28/2025 6:33 AM ESTHealthTrackRx at LabMajor HospitalSTAPHYLOCOCCUS EPIDERMIDIS, HAEMOLYTICUS, LUGDUNENSIS, SAPROPHYTICUS (FSBDW897.961 - 24.689 ppm04/28/2025 6:33 AM ESTHealth[facility] STAPHYLOCOCCUS EPIDERMIDIS, HAEMOLYTICUS, LUGDUNENSIS, SAPROPHYTICUS (URINANot Pbxiqbgt30.961 - 24.689 ppm04/28/2025 6:33 AM ESTHealth[facility] STAPHYLOCOCCUS EPIDERMIDIS, HAEMOLYTICUS, LUGDUNENSIS, SAPROPHYTICUS (URINA0 19.961 - 24.689 ppm04/28/2025 6:33 AM EST[facility] STAPHYLOCOCCUS EPIDERMIDIS, HAEMOLYTICUS, LUGDUNENSIS, SAPROPHYTICUS (URINANot Zkqovkxd06.961 - 24.689 ppm04/28/2025 6:33 AM ESTHealth[facility] Specimen (Source)Anatomical Location / LateralityCollection Method / Volume Collection TimeReceived OmmnSdmtx60/18/2025 12:15 PM EST04/28/2025 1:31 AM EST Narrative Authorizing ProviderResult TypeResult StatusCorey Kiley DOLAB BLOOD ORDERABLES Final ResultPerforming OrganizationAddressCity/State/ZIP CodePhone Number [facility] [address] [facility] [address] [place] [address] * US OB PLACENTA (04/15/2025 8:24 AM EST)Anatomical RegionLateralityModality OtherSpecimen (Source)Anatomical Location / LateralityCollection Method / VolumeCollection TimeReceived Time04/15/2025 8:24 AM EST Narrative 04/15/2025 8:27 AM EST [facility] ?[address] ? [place] [address] ? Ultrasound Report ? Signed ? Patient: DARREN,KIERSTAN P M ?MR#: [id number] ?? : 2000 ?Acct:[id number] ?? Age/Sex: 25 / F ?ADM Date: ?? Loc: [facility] ??250-1 ? Attending Dr: Bryant Cao D.O. ? Ordering Physician: Bryant Cao D.O. ?? Date of Service: 04/14/25 ?? Procedure(s): US OB placenta ?? Accession Number(s): [id number] ? cc: Bryant Cao D.O.; JOAQUÍN DILLON ? [facility] ? [address] ? [place] [address] ? Patient Name: ?? KAELYN BANKS ? MRN: [facility]:[id number] ? date: 2000 ?Sex: F ?? Assigned Patient Location: [facility] ?? Current Patient Location: ? Accession/Order Number: [id number] ?? Exam Date: 04/14/2025 ??13:27 ?Report Date: 04/15/2025 ??08:24 ? At the request of: ?? BRYANT ??KILEY ??DO ? Procedure: ??US OB placenta ? ULTRASOUND OB PLACENTA ? CLINICAL DATA: patient in [facility] ? COMPARISON: None ? There is a [...] M.D. ??04/15/2025 8:24 AM ? Dictation Location: [facility]02 ? Electronically authenticated by: [id number] ??Y ?? Date: 04/15/2025 ??08:24 ? Dictated By: ?Angela Lo M.D. ? Signed By: ?04/15/25 0827 ? DD/ 0824 ? TD/TT: ? Site Worker: Procedure Note Radiology, Radiologist, MD - 04/15/2025 [place] [address] Ultrasound Report Signed Patient: KAELYN BANKS MMR#: [id number] : 2000Acct:[id number] Age/Sex: 25 / FADM Date: Loc: [facility] 250-[address]: Bryant Cao D.O. Ordering Physician: Bryant Cao D.O. Date of Service: 04/14/25 Procedure(s): US OB placenta Accession Number(s): [id number] cc: Bryant Cao D.O.; JOAQUÍN DILLON [place] [address] Patient Name: KAELYN BANKS MRN: [facility]:[id number] date: 2000 Sex: F Assigned Patient Location: [facility] Current Patient Location: Accession/Order Number: [id number] Exam Date: 04/14/2025 13:27 Report Date: 04/15/2025 [...] Lo M.D. 04/15/2025 8:24 AM Dictation Location: [place] [address] Electronically authenticated by: [id number] Y Date: 508:24 Dictated By: Angela Lo M.D. Signed By:04/15/25826 DD/ 0824 TD/TT: Site Worker: Authorizing ProviderResult TypeResult StatusCorey Kiley DOCLINISYNC IMAGINGFinal Result * (ABNORMAL) AFP tumor marker (04/08/2025 10:01 AM EDT)ComponentValueRef Range Test MethodAnalysis TimePerformed AtPathologist SignatureALPHA [id number] (H)<=9.9 ng/mLPROMEDICAComment: ?? PERFORMED AT [facility] [address],[place] [address] Specimen (Source)Anatomical Location / LateralityCollection Method / Volume Collection TimeReceived Time04/08/2025 10:01 AM EDT1 12:35 PM EDT Narrative Authorizing ProviderResult TypeResult StatusAmy Bangor PALAB BLOOD ORDERABLES Final ResultPerforming OrganizationAddressCity/State/ZIP CodePhone Number [place] * (ABNORMAL) Diabetic Retinopathy Screening - OU - Both Eyes (03/30/2025 12:15 PM EDT)Anatomical RegionLateralityModalityHeadOther Narrative Authorizing ProviderResult TypeResult StatusThomas W [place] ODOPHTH PHOTOGRAPHY Final Result * Urine culture (03/24/2025 8:04 AM EDT)Specimen (Source)Anatomical Location / LateralityCollection Method / VolumeCollection TimeReceived TimeUrineUrine specimen obtained by clean catch procedure / Unknown Narrative Authorizing ProviderResult TypeResult StatusCoresathish SHIELDS MICROBIOLOGY - GENERAL ORDERABLESFinal ResultPerforming OrganizationAddressCity/State/ZIP Code Phone Number EXTERNAL LAB * URINE CULTURE, ROUTINE (03/20/2025 7:28 AM EDT)ComponentValueRef RangeTest MethodAnalysis TimePerformed AtPathologist SignatureURINE CULTURE, ROUTINE ??Urine Culture, Routine TBHURINE CULTURE, ROUTINEMixed urogenital floraTBHURINE CULTURE, ROUTINELess than 10,000 colonies/mLTBHURINE CULTURE, ROUTINEPerformed at: [facility] LabcoVirtua BerlinTBHURINE CULTURE, [id number] [place], [place] [id number] CULTURE, ROUTINELab Director: Chaka Almanzar PhD, Phone: [phone] Specimen (Source)Anatomical Location / LateralityCollection Method / Volume Collection TimeReceived Time03/20/2025 7:28 AM EDT1 7:35 AM EDT Narrative [facility] - 03/22/2025 12:10 AM EDT Authorizing ProviderResult TypeResult StatusCorey Kiley DOLAB BLOOD ORDERABLES Final ResultPerforming OrganizationAddressCity/State/ZIP CodePhone Number [facility] * AMNISURE (03/20/2025 7:28 AM EDT)ComponentValueRef RangeTest MethodAnalysis TimePerformed AtPathologist SignatureTBH AMNISURENEGATIVENEGATIVETBHSpecimen (Source)Anatomical Location / LateralityCollection Method / VolumeCollection TimeReceived Time03/20/2025 7:28 AM EDT1 7:35 AM EDT Narrative [facility] - 03/20/2025 7:48 AM EDT Authorizing ProviderResult [...] 7:28 AM EDT1 7:35 AM EDT Narrative [facility] - 03/20/2025 7:55 AM EDT Authorizing ProviderResult TypeResult StatusCorey Kiley DOCLINISYNCFinal Result Performing OrganizationAddressCity/State/ZIP CodePhone Number [facility] * (ABNORMAL) [facility] UA (CLEAN/CATCH) JEWELRY MANAGER/MICRO IF IND. (03/20/2025 7:28 AM EDT) ComponentValueRef [...] DOCLINISYNCFinal Result Performing OrganizationAddressCity/State/ZIP CodePhone Number [facility] * Microalbumin / creatinine urine ratio (10/27/2024)ComponentValueRef RangeTest MethodAnalysis TimePerformed AtPathologist SignatureMICROALBUMIN, URINE10.2 Specimen (Source)Anatomical Location / LateralityCollection Method / Volume Collection TimeReceived TimeUrineUrine specimen obtained by clean catch procedure / Bslmlfy6810/27/2024 Narrative Authorizing ProviderResult TypeResult StatusFirelands Physician GroupLAB URINE ORDERABLESFinal Result from Last 3 Months or Most Recently Relevant to Health Maintenance Additional Health Concerns Active ProblemsNoted DateDiagnosed DateOB Uokgczwud43/24/2025 Insurance MemberSubscriberPlan / Payer (Effective 2024-Present)Name:Rechandabraydenjudie Kaelyn Johnson Relation to Subscriber:SelfName:florianmirtha Kaelyn Johnson Payer ID:Not on file Type:Not on file Address: [place] [id number] Care Teams Team MemberRelationshipSpecialtyStart DateEnd Date Joaquín Dillon DO [address] [place] [address] [facility] - [facility]10/22/22 Joaquín Dillon DO [address] [place] [address] PCP - Medical [facility]03/10/2312
--- OUTSIDE RECORDS SUMMARY | 2025-05-25 18:48 | XMS_ITS | Encounter Summary ---
Author Organization [facility] tem Address [id number] [address] [place] [address] Care Team Providers Care Db2 Dba Name Role Phone JenniferDru April MUNGUIA Primary Care Provider [phone]- [phone] Encounter Details DateTypeDepartmentCare Team (Latest Contact Info)Wulrbmnxdaz16/02/2025Orders Only Maternal- Medicine at [facility] [address] [place] [phone] Bhumi Duval MD [address] [facility], [address] [place] [address] Social History Tobacco UseTypesPacks/DayYears UsedDateSmoking Tobacco: NeverSmokeless Tobacco: NeverAlcohol UseStandard Drinks/WeekCommentsYes0 (1 standard drink = 0.6 oz pure alcohol)[facility] UtilitiesAnswerDate RecordedIn the past [...] care, and heating?Not hard at all02/17/2025PHQ-2AnswerDate RecordedTotal Widag229Finst. [facility] [place] of Occupational Health - Occupational Stress QuestionnaireAnswerDate [...] of a household?No02/17/2025hildcareAnswerDate RecordedDo problems getting child and family services specialist make it difficult for you to [...] and direction in my life.Agree02/17/2025Estimated Date of KelwqgwgBtywpgnjDwj68/27/2026ased on last menstrual period of 10/30/2024Sex and Gender InformationValueDate RecordedSex Assigned at CsbykTyhrhr74/22/2025 1:51 AM EDTLegal SexFemale 01/13/2015 11:58 AM EDTGender MkrtfleuOyxlcd53/22/2025 1:51 AM EDTSexual OrientationNot on filedocumented as of this encounter Plan of Treatment DateTypeDepartmentCare Team (Latest Contact Info)Sqjobycunwr30/02/2026 3:30 PM ESTAppointment [facility] [address] [place] [phone] documented as of this encounter Visit Diagnoses Not on filedocumented in this encounter Additional Health Concerns AssessmentNoted TimePHQ-9 Depression Total Score: 8:31 AM ESTA Body Mass Index follow-up plan has been documented for the yrcsbul6806/12/2023 4:35 PM ESTdocumented as of this encounter Care Teams Team MemberRelationshipSpecialtyStart DateEnd Date Dru Rodriguez DO [address] [place] [address] PCP - General01/01/17documented as of this encounter
--- OUTSIDE RECORDS SUMMARY | 2025-05-25 18:48 | XMS_ITS | Encounter Summary ---
Author Organization [facility] Address [address] [place] [address] Care Team Providers Care Junk Dealer Name Role Phone Dru Rodriguez DO Primary Care Provider [phone]- [phone] Dru Rodriguez DO Unavailable [phone] Encounter Details DateTypeDepartmentCare Team (Latest Contact Info)Mbpcnotywfj70/03/2025Telephone [facility] [address] [place] [address] [place] [phone] [place] Social History Tobacco UseTypesPacks/DayYears UsedDateSmoking Tobacco: [...] week03/11/2023How often do you attend amish or methodist services?1 to 4 times per year03/11/2023o you belong to any clubs or organizations such as amish groups, unions, fraternal or athletic laura ups, or school groups?No03/11/2023How often do you attend meetings of the clubs or organizations you belong to?Never03/11/2023re you , , , , never , or living with a partner?Fjefdgh1103/11/2023 AUDIT-CAnswerDate RecordedQ1: How often do you have a drink containing alcohol? Monthly or less03/11/2023Q2: How many drinks containing alcohol do you have on a typical day when you are drinking?3 or Q3: How often do you have six or more drinks on one occasion?Less than zimtblu0103/11/2023Overall Financial Resource Strain (CARDIA)AnswerDate RecordedHow hard is it for you to pay for the very basics like food, housing, medical care, and heating?Somewhat hard 03/11/2023HQ-2AnswerDate RecordedPatient Health Questionnaire-2 Score0 03/25/2025Finshriners hospitals for [facility] [place] of Occupational Health - Occupational Stress QuestionnaireAnswerDate [...] slept in ashelter (including now)?No03/11/2023Estimated Date of WvlnpzlrKwtvkjcdUvr13/27/2026ased on last menstrual period of 10/30/2024Sex and Gender InformationValueDate RecordedSex Assigned at XblmbZjbbmb02/01/2023 1:10 PM EDTLegal RizRrinfa47/15/2023 6:51 PM EDTGender DxlgbktlVodrby13/01/2023 1:10 PM EDTSexual EknqsjoahjpBvxbstkg58/01/2023 1:10 PM EDTdocumented as of this encounter [...] Plan of Treatment DateTypeDepartmentCare Team (Latest Contact Info)Guoecjajpre46/22/2025 3:30 PM ESTRoutine [facility] [address] [place] [address] [place] [address] Kolton Cao, DO [address] [place] [address] 06/16/2025 4:00 PM ESTRoutine [facility] [address] [facility] [address] [place] [address] Dixie Gan, TUBE REBUILDER [address] [place] [address] NameTypePriorityAssociated DiagnosesOrder ScheduleUS biophysical profile w non stress testImagingRoutine Type 1 diabetes mellitus during , antepartum ([facility]) Expected: 05/12/2025 (Approximate), Expires: 11/10/2025documented as of this encounter Goals GoalPatient Goal TypeAssociated ProblemsRecent ProgressPatient-Stated?Author Reminders Care PlanOB RemindersNoOpen Scheduling, Backgrounddocumented as of this encounter Visit Diagnoses Diagnosis Type 1 diabetes mellitus during , antepartum ([facility]) documented in this encounter Additional Health Concerns Active ProblemsNoted DateDiagnosed DateOB Vrthljrwl53/24/2025 documented as of this encounter Care Teams Team MemberRelationshipSpecialtyStart DateEnd Date Dru Rodriguez DO [address] [place] [address] PCP - GeneralFamily Medicine10/22/22 Dru Rodriguez DO [address] [place] [address] PCP - Medical [place] Orxpegvuuf93/1/2312documented as of this encounter
--- OUTSIDE RECORDS SUMMARY | 2025-05-25 18:48 | XMS_ITS | Encounter Summary ---
Author Organization [facility] tem Address [id number] [address] [place] [address] Care Team Providers Care Rate Clerk Name Role Phone JenniferDru April MUNGUIA Primary Care Provider [phone]- [phone] Encounter Details DateTypeDepartmentCare Team (Latest Contact Info)Ukxrkmiyadm62/04/2025Travel Social History Tobacco UseTypesPacks/DayYears UsedDateSmoking Tobacco: NeverSmokeless Tobacco: NeverAlcohol UseStandard Drinks/WeekCommentsYes0 (1 standard drink = 0.6 oz pure alcohol)socialMERCY HEALTH ST[facility] UtilitiesAnswerDate RecordedIn the past 12 months [...] care, and heating?Not hard at all02/17/2025PHQ-2AnswerDate RecordedTotal Nbduu678Finmoab regional hospital [place] of Occupational Health - Occupational Stress QuestionnaireAnswerDate [...] of a household?No02/17/2025hildcareAnswerDate RecordedDo problems getting childcare worker make it difficult for you to [...] and direction in my life.Agree02/17/2025Estimated Date of LbbothahNdaisjmjRjs86/27/2026Based on last menstrual period of 10/30/2024Sex and Gender InformationValueDate RecordedSex Assigned at RkhwmFajlqi96/22/2025 1:51 AM EDTLegal SexFemale 01/13/2015 11:58 AM EDTGender UfagnynbWyjjjc96/22/2025 1:51 AM EDTSexual OrientationNot on filedocumented as of this encounter Plan of Treatment DateTypeDepartmentCare Team (Latest Contact Info)Almgcodyxvc40/02/2026 3:30 PM ESTAppointment [facility] [address] [place] [address] documented as of this encounter Visit Diagnoses Not on filedocumented in this encounter Additional Health Concerns AssessmentNoted TimePHQ-9 Depression Total Score: 8:31 AM ESTA Body Mass Index follow-up plan has been documented for the ufbxtig1806/12/2023 4:35 PM ESTdocumented as of this encounter Care Teams Team MemberRelationshipSpecialtyStart DateEnd Date Dru Rodriguez DO [address] [facility] [place] [address] PCP - General01/01/17documented as of this encounter
--- OUTSIDE RECORDS SUMMARY | 2025-05-25 18:48 | XMS_ITS | Encounter Summary ---
Author Organization [facility] tem Address [id number] [address] [place] [address] Care Team Providers Care Telephone Sex Worker Name Role Phone Simon Rodriguezew April MUNGUIA Primary Care Provider [phone]- [phone] Encounter Details DateTypeDepartmentCare Team (Latest Contact Info)Wgnewzdsfyc73/05/2025Telephone Maternal- Medicine at [facility] [address] [place] [phone] Katie Orozco, [address] [facility] [address] [place] [address] Social History Tobacco UseTypesPacks/DayYears UsedDateSmoking Tobacco: NeverSmokeless Tobacco: NeverAlcohol UseStandard Drinks/WeekCommentsYes0 (1 standard drink = 0.6 oz pure alcohol)[facility] UtilitiesAnswerDate RecordedIn the past 12 months [...] care, and heating?Not hard at all02/17/2025PHQ-2AnswerDate RecordedTotal Wvpki970Fingunnison valley hospital [place] of Occupational Health - Occupational Stress QuestionnaireAnswerDate [...] part of a household?No02/17/2025hildcareAnswerDate RecordedDo problems getting teacher early childhood development make it difficult for you to work [...] and direction in my life.Agree02/17/2025Estimated Date of JxriawyyEjspcvdmDxs71/27/2026ased on last menstrual period of 10/30/2024Sex and Gender InformationValueDate RecordedSex Assigned at NmdjrLibapp98/22/2025 1:51 AM EDTLegal SexFemale 01/13/2015 11:58 AM EDTGender DzrnsagjEietxa30/22/2025 1:51 AM EDTSexual OrientationNot on filedocumented as [...] Plan of Treatment DateTypeDepartmentCare Team (Latest Contact Info)Pitciwcecmt95/02/2026 3:30 PM ESTAppointment [facility] [address] [place] [address] documented as of this encounter Visit Diagnoses Diagnosis Uncontrolled type 1 diabetes mellitus with hyperglycemia, with long-term current use of insulin ([facility]) documented in this encounter Additional Health Concerns AssessmentNoted TimePHQ-9 Depression Total Score: 8:31 AM ESTA Body Mass Index follow-up plan has been documented for the evkxtew9206/12/2023 4:35 PM ESTdocumented as of this encounter Care Teams Team MemberRelationshipSpecialtyStart DateEnd Date Dru Rodriguez DO [address] [place] [address] PCP - General01/01/17documented as of this encounter
[2025-05-25 18:49] VITALS: BP 118/80; PULSE 94
== END 2025-05-25 19:17 | disposition home or self-care (01) ==
LOC: FBCO 18:44 → FBC 18:46
PROVIDERS: PCP Family Medicine; Visit Provider Obstetrics & Gynecology
DX: O99.283 Endocrine, nutritional and metabolic diseases complicating pregnancy, third trimester (principal)
CPT/HCPCS: 59025

== ENCOUNTER 2025-05-28 12:42 | Outpatient (RCR) | payer OTHER, BC, SELFPAY ==
[2025-05-28 14:18] VITALS: BP 152/92; PULSE 99; TEMP 37.1; O2SAT 98
[2025-05-28] MEDS: RHO(D) IMMUNE GLOBULIN 1,500 UNIT SYRINGE 1500 UNIT IM (14:21)
--- NOTE | 2025-05-28 14:28 | PC.NURSE ---
1421: Pt. medicated with Rhogam IM as directed. Trace bleeding to site. Pt. tolerated with min. c/o discomfort. Remains in dept. for brief observation. Education provided on purpose of Rhogam administration. Pt. denies questions or concerns.
== END 2025-06-09 23:59 | disposition home or self-care (01) ==
LOC: INF 12:42
PROVIDERS: PCP Family Medicine; Visit Provider Obstetrics & Gynecology
DX: O26.893 Other specified pregnancy related conditions, third trimester (principal); Z67.91 Unspecified blood type, Rh negative; Z3A.00 Weeks of gestation of pregnancy not specified
CPT/HCPCS: 36415; 86850; 86900; 86901; 87086; 96372; J2791

== ENCOUNTER 2025-05-28 14:38 | Outpatient (OUT) | payer OTHER, BC, SELFPAY ==
--- OUTSIDE RECORDS SUMMARY | 2025-05-13 08:33 | XMS_ITS | Encounter Summary ---
Author Organization [facility] tem Address [id number] [address] [place] [address] Care Team Providers Care Floor Sanding Machine Operator Name Role Phone Dru Rodriguez DO Primary Care Provider [phone] Reason for Referral * Diagnostic Imaging (Routine) - Pending ReviewSpecialtyDiagnoses / Procedures Referred By ContactReferred To ContactMaternal and Medicine Diagnoses Type 1 diabetes mellitus during in second trimester Procedures US [facility] with or without consult Ivory Quinones MD [address] [address] Phone: tel: fax: Maternal- Medicine at [address] [address] Phone: tel: fax: Referral IDStatusReasonStart DateExpiration DateVisits RequestedVisits [id number] Reason for Visit * Diagnostic Imaging (Routine) - Pending ReviewSpecialtyDiagnoses / Procedures Referred By ContactReferred To ContactMaternal and Medicine Diagnoses Type 1 diabetes mellitus during in second trimester Procedures US MFM with or without consult Ivory Quinones MD [address] [facility] [place] [address] Phone: tel: fax: Maternal- Medicine at [facility] [address] [place] [address] Phone: tel: fax: Referral IDStatusReasonStart DateExpiration DateVisits RequestedVisits [id number] [id number]/6/980286/ Encounter Details DateTypeDepartmentCare Team (Latest Contact Info)Rkrdfjknjwh50/04/2025 8:33 AM EST - 05/13/2025 11:59 PM ESTHospital Encounter [facility] - MFM US Imaging [address] [place] [address] Type 1 diabetes mellitus during in second trimester Discharge Disposition: Home Social History Tobacco UseTypesPacks/DayYears UsedDateSmoking Tobacco: NeverSmokeless Tobacco: NeverAlcohol UseStandard Drinks/WeekCommentsYes0 (1 standard drink = 0.6 oz pure alcohol)socialSUM[facility] UtilitiesAnswerDate RecordedIn the past 12 [...] care, and heating?Not hard at all02/17/2025PHQ-2AnswerDate RecordedTotal Dzzyt20806/12/2023[facility] [place] of Occupational Health - Occupational Stress QuestionnaireAnswerDate [...] part of a household?No02/17/2025hildcareAnswerDate RecordedDo problems getting childbirth educator make it difficult for you to work [...] and direction in my life.Agree02/17/2025Estimated Date of KstiubloNwbwleceTyn70/27/2026ased on last menstrual period of 10/30/2024Sex and Gender InformationValueDate RecordedSex Assigned at UhldmPmamsf71/22/2025 1:51 AM EDTLegal SexFemale 01/13/2015 11:58 AM EDTGender WsxmbfyfCjgyel12/22/2025 1:51 AM EDTSexual OrientationNot on filedocumented as of this encounter Medications at Time of Discharge MedicationSigDispense QuantityRefillsLast FilledStart DateEnd Date acetaminophen (TylenoL) 325 mg tablet Take 2 tablets (650 mg total) by mouth every 6 (six) hours as needed for pain. 30 tablet 09/12/2022 acetone, urine, test (KETONE URINE TEST) strip Indications:Type 1 diabetes mellitus during in first trimesterCheck urine for ketones with blood glucose greater than 250mg/dl 100 strip albuterol (PROVENTIL HFA;VENTOLIN HFA) 90 mcg/actuation inhaler Indications:COVIDInhale 2 puffs every 4 (four) hours as needed for wheezing. 18 g 06/08/2021 aspirin 81 mg Indications:Type 1 diabetes mellitus during in first trimesterTake 1 tablet (81 mg total) by mouth in the morning. 90 tablet insulin lispro SUBCUTANEOUS PUMP (HumaLOG) 100 unit/mL patient supplied pump Patient to self-manage pump according to the following the above parameters 02/22/2025 insulin pump cart,auto,BT,G6/7 (OMNIPOD 5 G6-G7 PODS, GEN 5, SUBQ) Inject under the skin. lidocaine (LIDODERM) 5 % Place 1 patch on the skin daily. Remove & Discard patch within 12 hours or as directed by 30 patch 04/15/2022 OMNIPOD DASH PODS, GEN 4, cartridge 2documented as of this encounter Plan of Treatment DateTypeDepartmentCare Team (Latest Contact Info)Sueweqxvlzy98/02/2026 3:30 PM ESTAppointment [facility] US Imaging [address] [place] [address] documented as of this encounter Procedures Procedure NamePriorityDate/TimeAssociated DiagnosisCommentsUS [facility] OB FOLLOW-UP, 1 SVWDPWmlwzzy55/04/2025 9:12 AM EST Type 1 diabetes mellitus during in second trimester documented in this encounter Results * US [facility] OB FOLLOW-UP, 1 FETUS (05/13/2025 9:12 AM EST)Anatomical Region LateralityModalityOB-GYNUltrasoundSpecimen (Source)Anatomical Location / LateralityCollection Method / VolumeCollection TimeReceived Time05/13/2025 8:44 AM EST Narrative 05/13/2025 10:52 AM EST NAME: ??THOMASMARILYN JIMENEZFRANSISCA SCHMIDT : 2000 SEX: F Accession Number: [id number] ORDERING PHYSICIAN: IVORY QUINONES REFERRING PHYSICIAN: BRYANT PULLIAM Coding Procedures ? 39711: Ultrasound, uterus, real time with image documentation, follow up,transabdominal ? approach per fetus Indication Pre-existing Type 1 diabetes in , Obesity in . History OB History ? 1 Current Cell free DNA ?low risk analysis Maternal Assessment Physical Exam ??Height 147 cm, 4 ft 10 in. Weight 73 kg, 161 lb. Initial weight 56 kg, 123 lb. BMI 33.65 kg/m??. Initial ? BMI 25.71 kg/m??. Weight gain 17 kg, 38 lb Method Transabdominal ultrasound examination. De La Rosa . Number of fetuses: 1 Dating LMP on: ?10/30/2024 GA by LMP ?27 w + 6 d MANDO by LMP: ?08/06/2025 Previous Ultrasound on: ?12/24/2024 Type of prior assessment: ?GA GA at prior assessment date ?7 w + 3 d GA by previous U/S ? 27 w + 3 d MANDO by previous Ultrasound: ?08/09/2025 Ultrasound examination on: ? 05/13/2025 GA by U/S based upon: ??AC, BPD, Femur, HC GA by U/S ?28 w + 3 d MANDO by U/S: ?08/02/2025 Assigned: ?based on the LMP, selected on 03/16/2025 Assigned GA (weeks days) ? 27 w + 6 d Assigned MANDO: ??08/06/2025 General Evaluation Cardiac activity Present. FHR 148 bpm. Presentation: cephalic Placenta: Placental site: posterior, previously documented away from cervical os Umbilical cord: Cord vessels: 3 vessel cord. Insertion site: documented previously Amniotic fluid: Amount of AF: normal amount. MVP 4.6 cm Biometry Standard BPD ?72.9 mm 29w 2d 81% Hadlock OFD ?92.9 mm 30w 0d 94% Randolph HC ? 265.2 mm ?28w 6d 52% Hadlock Cerebellum tr ??32.6 mm 27w 5d 51% Hill AC ? 245.7 mm ?28w 6d 72% Hadlock Femur ??49.7 mm 26w 5d 10% Hadlock Humerus ?45.7 mm 27w 0d 20% Randolph HC / AC ?1.08 EFW ?1,185 g ??49% Hadlock EFW (lb) ? 2 lb EFW (oz) ? 10 oz EFW by: ?Hadlock ([id number]-FL) Extended Tibia ??45.1 mm 27w 4d 40% Randolph Double Bass Player ? 2.4 mm CM ? 6.4 mm ?? 42% Nicolaides Head / Face / Neck Cephalic index 0.78 ? 46% Nicolaides Extremities / Bony Struc FL / BPD ? 0.68 FL / HC ?0.19 FL / AC ?0.20 Other Structures FHR ?148 bpm Anatomy The following structures appear normal: Head/Neck: Cranium. Lateral ventricles. Cavum septi pellucidi. Cerebellum. Cisterna magna. Heart/Thorax: 4-chamber view. Cardiac position. Cardiac axis. Cardiac size. Cardiac rhythm. ? Diaphragm. Abdomen: Stomach. Kidneys. Bladder. Maternal Structures Uterus Visualized Cervix Suboptimal ? Approach - Transabdominal Right Ovary ?Not visualized Left Ovary ? Not visualized Cul de Sac ? Suboptimal Impression Single live intrauterine consistent with 27w 6d with an MANDO of 08/06/2025. Normal growth. EFW measures at the 49%, AC measures at the 72%. Amniotic fluid MVP measures 4.6 cm. Recommendations Please see [facility] recommendations from prior clinical and/or ultrasound report documentation. The patient is scheduled in four weeks for follow up growth ultrasound. Subsequent follow up or other follow up as clinically determined by primary OB provider unless otherwise specified by [facility]. Results forwarded to ordering provider so they can follow up with the patient as necessary. Procedure Note Yahaira Miller MD - 05/13/2025 NAME: DARREN ART : 2000 SEX: F Accession Number: [id number] ORDERING PHYSICIAN: IVORY QUINONES REFERRING PHYSICIAN: BRYANT PULLIAM Coding Procedures 35573: Ultrasound, uterus, real time with image documentation, follow up, transabdominal approach per fetus Indication Pre-existing Type 1 diabetes in , Obesity in . History OB History 1 Current Cell free DNA low risk analysis Maternal Assessment Physical Exam Height 147 cm, 4 ft 10 in. Weight 73 kg, 161 lb. Initialweight 56 kg, 123 lb. BMI 33.65 kg/m??. Initial BMI 25.71 kg/m??. Weight gain 17 kg, 38 lb Method Transabdominal ultrasound examination. De La Rosa . Number of fetuses: 1 Dating LMP on: 10/30/2024 GA by LMP 27 w + 6 d MANDO by LMP: 08/06/2025 Previous Ultrasound on: 12/24/2024 Type of prior assessment: GA GA at prior assessment date 7 w + 3 d GA by previous U/S 27 w + 3 d MANDO by previous Ultrasound: 08/09/2025 Ultrasound examination on: 05/13/2025 GA by U/S based upon: AC, BPD, Femur, HC GA by U/S 28 w + 3 d MANDO by U/S: 08/02/2025 Assigned: based on the LMP, selected on 03/16/2025 Assigned GA (weeks days) 27 w + 6 d Assigned MANDO: 08/06/2025 General Evaluation Cardiac activity Present. FHR 148 bpm. Presentation: cephalic Placenta: Placental site: posterior, previously documented away fromcervical os Umbilical cord: Cord vessels: 3 vessel cord. Insertion site: documented previously Amniotic fluid: Amount of AF: normal amount. MVP 4.6 cm Biometry Standard BPD 72.9 mm 29w 2d 81% Hadlock OFD 92.9 mm 30w 0d 94% Randolph HC 265.2 mm 28w 6d 52% Hadlock Cerebellum tr 32.6 mm 27w 5d 51% Hill AC 245.7 mm 28w 6d 72% Hadlock Femur 49.7 mm 26w 5d 10% Hadlock Humerus 45.7 mm 27w 0d 20% Randolph HC / AC 1.08 EFW 1,185 g 49% Hadlock EFW (lb) 2 lb EFW (oz) 10 oz EFW by: Hadlock (QLI-QG-JD-FL) Extended Tibia 45.1 mm 27w 4d 40% Randolph Double Bass Player 2.4 mm CM 6.4 mm 42% Nicolaides Head / Face / Neck Cephalic index 0.78 46% Nicolaides Extremities / Bony Struc FL / BPD 0.68 FL / HC 0.19 FL / AC 0.20 Other Structures FHR 148 bpm Anatomy The following structures appear normal: Head/Neck: Cranium. Lateral ventricles. Cavum septi pellucidi. Cerebellum. Cisterna magna. Heart/Thorax: 4-chamber view. Cardiac position. Cardiac axis. Cardiacsize. Cardiac rhythm. Diaphragm. Abdomen: Stomach. Kidneys. Bladder. Maternal Structures Uterus Visualized Cervix Suboptimal Approach - Transabdominal Right Ovary Not visualized Left Ovary Not visualized Cul de Sac Suboptimal Impression Single live intrauterine consistent with 27w 6d with an MANDO of 08/06/2025. Normal growth. EFW measures at the 49%, AC measures at the 72%. Amniotic fluid MVP measures 4.6 cm. Recommendations Please see [facility] recommendations from prior clinical and/or ultrasoundreport documentation. The patient is scheduled in four weeks for follow up growth ultrasound. Subsequent follow up or other follow up as clinically determined byprimary OB provider unless otherwise specified by [facility]. Results forwarded to ordering provider so they can follow up with thepatient as necessary. Authorizing ProviderResult TypeResult StatusIvory Quinones MDIMG ORDERABLESFinal Result documented in this encounter Visit Diagnoses Diagnosis Type 1 diabetes mellitus during in second trimester documented in this encounter Additional Health Concerns AssessmentNoted TimePHQ-9 Depression Total Score: 8:31 AM ESTA Body Mass Index follow-up plan has been documented for the zfdxdsf3506/12/2023 4:35 PM ESTdocumented as of this encounter Care Teams Team MemberRelationshipSpecialtyStart DateEnd Date Dru Rodriguez DO [address] [place] [address] PCP - General01/01/17documented as of this encounter
--- OUTSIDE RECORDS SUMMARY | 2025-05-17 13:00 | XMS_ITS | Encounter Summary ---
Author Organization [facility] tem Address [facility] [place] [place]-[id number] [address] [place] [address] Care Team Providers Care Senior Stock Plan Administrator Name Role Phone JenniferDru April MUNGUIA Primary Care Provider +1- [phone] Encounter Details DateTypeDepartmentCare Team (Latest Contact Info)Jxmajxkqeta40/08/2025 1:00 PM ESTTelemedicine Maternal- Medicine at [facility] [address] [place] [phone] Rosy Arredondo PA-C [address] [address] Type 1 diabetes mellitus during in third trimester (Primary Dx) Social History Tobacco UseTypesPacks/DayYears UsedDateSmoking Tobacco: NeverSmokeless Tobacco: NeverAlcohol UseStandard Drinks/WeekCommentsYes0 (1 standard drink = 0.6 oz pure alcohol)socialKETTERING [facility] UtilitiesAnswerDate RecordedIn the past 12 months has the [employer], gas, oil, or water [employer] threatened to shut off services in your [...] care, and heating?Not hard at all02/17/2025PHQ-2AnswerDate RecordedTotal Ofskv484Fincache valley hospital [place] of Occupational Health - Occupational Stress QuestionnaireAnswerDate [...] a household?No02/17/2025hildcareAnswerDate RecordedDo problems getting child care aide make it difficult for you to [...] and direction in my life.Agree02/17/2025Estimated Date of MrzhqgmwGuupwljlMah37/27/2026Based on last menstrual period of 10/30/2024Sex and Gender InformationValueDate RecordedSex Assigned at NptayAsjkpb73/22/2025 1:51 AM EDTLegal SexFemale 01/13/2015 11:58 AM EDTGender LddjigitIebbzn08/22/2025 1:51 AM EDTSexual OrientationNot on filedocumented as of this encounter Progress Notes * Rosy Arredondo PA-C - 05/17/2025 1:00 PM EST Maternal- Medicine Consultation VIRTUAL HISTORY OF PRESENT ILLNESS: Dalia Shaw is a 25 y.o. female at 28w3d due on Estimated Date of Delivery: 08/06/25 complicated by type 1 diabetes, BHAVNA. Does not have celiac 's Patient is feeling well today aside from continued back/hip pain. She denies contractions, vaginal bleeding, leaking fluid. She appreciates movement. Pump download for the past week, which does not include changes made as week as she just made the recommended changes around 10am this morning Fastings vary. Having high post prandial spikes Starting to go through omnipods more quickly, so feels she may need to start doing injections for boluses and she will not have coverage for more frequent omnipods. She denies feeling sick, having UTI or URI symptoms. Denies SOB, abdominal pain, urination or thirst changes. 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 Is planning to start day shift soon. 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 Diagnosed with type 1 when she was 10 years old. Has been on omnipod pump for about 5 years, pump overall since 2014 Last had DKA in 2017 (uncontrolled) and again in 2020 (had covid) Exercise induced asthma- uses during only vigours exercse Denies cHTN, heart disease, or any other chronic medical problems. LMP 10/30/2024 PAST OBSTETRICAL HISTORY: OB History 1 Para 0 Term 0 0 AB 0 Living 0 SAB 0 IAB 0 Ectopic 0 Multiple 0 Live Births 0 Past Medical History: Diagnosis Date Anxiety Depression Diabetes mellitus type I ([facility]) SURGICAL HISTORY: Past Surgical History: Procedure Laterality [...] 4 (four) hours as needed for wheezing. (Patient not taking: Reported on 04/20/2025), Disp: 18 g, Rfl: 0 aspirin 81 mg, Take 1 tablet (81 mg total) by mouth in the morning., Disp: 90 tablet, Rfl: 4 insulin lispro (HumaLOG) 100 unit/mL insulin pen, Inject prior to meals, as calculated by pump setting doses. Up to 50 units daily, Disp: 15 mL, Rfl: 3 insulin lispro SUBCUTANEOUS PUMP (HumaLOG) 100 unit/mL patient supplied pump, Patient to self-manage pump according to the following the above parameters, Disp: , Rfl: insulin pump cart,auto,BT,G6/7 (OMNIPOD 5 G6-G7 PODS, GEN 5, SUBQ), Inject under the skin., Disp: ,Rfl: lidocaine (LIDODERM) 5 %, Place 1 patch on the skin daily. Remove & Discard patch within 12 hours or as directed by MD (Patient not taking: Reported on 02/17/2025), Disp: 30 patch, Rfl: 0 OMNIPOD DASH PODS, GEN 4, cartridge, , Disp: , Rfl: pen needle, diabetic (BD ULTRA-FINE AMINA PEN NEEDLE) 32 gauge x 5/32 needle, Use to inject insulin5 times daily, Disp: 100 each, Rfl: 2 LABS: Lab Results Component Value Date TSH 0.75 04/20/2025 No components found for: [facility] Lab Results Component Value Date CREATININE 0.62 04/20/2025 BUN 9 04/20/2025 K 3.9 04/20/2025 CL 106 04/20/2025 CO2 24 04/20/2025 Lab Results Component Value Date ALT 32 (H) 04/20/2025 AST 23 04/20/2025 ALKPHOS 76 04/20/2025 Lab Results Component Value Date HGBA1C 5.1 04/08/2025 HGBA1C 7.1 (A) 01/04/2025 HGBA1C 6.7 (H) 11/11/2023 No components found for: POCA1C REVIEW OF [...] diabetes: 2009 Endo outside of : Mily Quene ([facility]) - Current blood glucose control: poor control - Medication: - Omnipod 5 insulin pump Changes just implemented this morning that provider made last week. I made an additional few changes Given start of difficulty for coverage of omnipods due to increasing bolus doses, will start using injections for bolus doses. Use pump to calculate dose. Continue use of pump for basal insulin Insulin Instructions Pump Settings- insulin lispro SUBCUTANEOUS PUMP 100 unit/mL patient supplied pump (HumaLOG) Last edited by Rosy Arredondo PA-C on 05/17/2025 at 1:24 PM Automode OFF as of 01/18 --> THEN AUTO MODE BACK ON on 04/20/25. Active insulin time 3hrs Basal Rate Total Basal Dose: 30.85 units/day Time units/hr 12:00 AM 1.3 3:00 AM 1.25 6:00 AM 1.1 9:00 AM 1.45 1:00 PM 1.4 8:00 PM 1.1 10:00 PM 1.05 Blood Glucose Target Time mg/dL 12:00 AM 110 - 110 Sensitivity Factor Time mg/dL/unit 12:00 AM 35 Carb Ratio Time g/unit 12:00 AM 3.5 3:00 AM 2.5 6:00 AM 2.5 9:00 AM 2.5 4:00 PM 3 8:00 PM 3 10:00 PM 3.5 - Dexcom G7 CGM - continue use of - Continue aspirin 81mg once daily - Labs - A1c: 7.1 on 01/04/25 --> 5.1 on 04/08/25 - Baseline preeclampsia labs: Plts nl, Cr, LFTs, 24hr urine protein normal. BNP normal - genetic screening low risk per patient - negative carrier screen per patient - Detailed anatomy survey and echocardiogram with MFM at 19-20 weeks - incomplete views - growth ultrasounds every 4 weeks after 28 weeks, which can be with primary OB - 12/4: EFW measures at the 49%, AC measures at the 72%. Amniotic fluid MVP measures 4.6 cm - Recommend the following for testing, which [...] continue to address at later gestation - will schedule with ELISE GARIBAY at 32-34w to discuss timing recommendations - Discuss delivery if estimated weight is >4500g - Upon arrival to hospital for delivery, change to temporary basal of 30% - Monitor patient's BG every 4hrs during latent labor, every 1 hr during active labor with goal BG to be less than 140mg/dl. Can use insulin sliding scale prn hyperglycemia. If difficult to keep BG between 60 and 140 during labor, may need to transition to insulin drip. Once delivered, checked blood glucose fasting and 1hr post prandial, with goal of 100-130mg/dl for fasting and <180mg/dl for random or post prandial blood glucose levels - Assure patient has follow up with her PCP or ambulatory technologist within 2 weeks after delivery - MFM/Endocrinology referral placed for Dr Cerrato, however due to patient's insurance, she can only get her medication refilled through her current ambulatory technologist which is in network for her. Her [...] managing her diabetes - EKG done - Maternal echo done Follow up in 1-2 weeks with Maternal- Medicine outpatient, in 4-5 weeks with ELISE GARIBAY I request she keep sending values to us weekly by e-mail to: or by fax to: [phone] Rosy Arredondo PA-C Maternal- Medicine Office phone: [phone] Rosy Arredondo PA-C 05/17/25 1325 documented in this encounter Plan of Treatment DateTypeDepartmentCare Team (Latest Contact Info)Escqzlnrwjf31/02/2026 3:30 PM ESTAppointment [facility] [address] [place] [phone] documented as of this encounter Visit Diagnoses Diagnosis Type 1 diabetes mellitus during in third trimester- Primary documented in this encounter Additional Health Concerns AssessmentNoted TimePHQ-9 Depression Total Score: 8:31 AM ESTA Body Mass Index follow-up plan has been documented for the xgcwiyg6906/12/2023 4:35 PM ESTdocumented as of this encounter Care Teams Team MemberRelationshipSpecialtyStart DateEnd Date Dru Rodriguez DO [address] [place] [address] PCP - General01/01/17documented as of this encounter
--- OUTSIDE RECORDS SUMMARY | 2025-05-18 14:40 | XMS_ITS | Encounter Summary ---
Author Organization [facility] Address [address] [place] [address] Care Team Providers Care Warehouse Driver Name Role Phone RonyDru lozada April DO Primary Care Provider [phone]- [phone] Dru Rodriguez DO Unavailable [phone] Reason for Visit * ReasonCommentsRoutine Visit Encounter Details DateTypeDepartmentCare Team (Latest Contact Info)Vrjomchvvrk86/09/2025 2:40 PM ESTRoutine [facility] [address] [address] Katharine Cummins PA [address] [place], [facility] 28 weeks gestation of ([facility]); Type 1 diabetes mellitus during , antepartum ([facility]); Third trimester ([facility]) Social History Tobacco UseTypesPacks/DayYears UsedDateSmoking Tobacco: NeverSmokeless [...] relatives?Twice a week03/11/2023How often do you attend gnosticism or anabaptist services?1 to 4 times per year03/11/2023o you belong to any clubs or organizations such as gnosticism groups, unions, fraPer[employer] Corp or athletic laura ups, or school groups?No03/11/2023How often do you attend meetings of the clubs or organizations you belong to?Never03/11/2023re you , , , , never , or living with a partner?Dvfbtax9703/11/2023 AUDIT-CAnswerDate RecordedQ1: How often do you have a drink containing alcohol? Monthly or less03/11/2023Q2: How many drinks containing alcohol do you have on a typical day when you are drinking?3 or Q3: How often do you have six or more drinks on one occasion?Less than yktamed2103/11/2023Overall Financial Resource Strain (CARDIA)AnswerDate RecordedHow hard is it for you to pay for the very basics like food, housing, medical care, and heating?Somewhat hard 03/11/2023HQ-2AnswerDate RecordedPatient Health Questionnaire-2 Score0 03/25/2025[facility] [place] of Occupational Health - Occupational Stress QuestionnaireAnswerDate [...] steady place to sleep [facility])?No03/11/2023Estimated Date of HihtolqrDfhwqpejAti38/27/2026ased on last menstrual period of 10/30/2024Sex and Gender InformationValueDate RecordedSex Assigned at MfcppPxnkww71/01/2023 1:10 PM EDTLegal XizFdsvib62/15/2023 6:51 PM EDTGender EzaggyenDjzwqs83/01/2023 1:10 PM EDTSexual IakmikyzbxbNtrwhbro50/01/2023 1:10 PM EDTdocumented as of this encounter Last Filed Vital Signs Vital SignReadingTime TakenCommentsBlood Hwtzucxq929/8012 2:46 PM EST 134/84- recheckPulse--Temperature--Respiratory Rate--Oxygen Saturation--Inhaled Oxygen Concentration--Hismvo15.7 kg (171 lb 6.4 oz)05/18/2025 2:46 PM [...] unresponsive hypoglycemia cholecalciferol (Vitamin D-3) 1.25 MG (99809 UT) capsule every week Continuous Blood Gluc [...] UNITS DAILY Insulin Disposable Pump (Omnipod 5 KyyH0U3 Pods Gen 5) misc 1 each, Subcutaneous, [...] TO CHECK GLUCOSE 4 TIMES DAILY Vit w/Hc-Whegbanwj-OB (PNV PO) Take by mouth promethazine (PHENERGAN) 25 mg, Every 6 hours PRN pyridoxine (VITAMIN B-6) 100 mg, Every morning ALLERGIES Allergies Allergen Reactions Amoxicillin Anaphylaxis Mouth irritation Penicillins Anaphylaxis Has since taken without reaction PROBLEMS Active Ambulatory Problems Diagnosis Date Noted Bulging lumbar disc 11/08/2022 Chronic fatigue 11/08/2022 Lumbago with sciatica, left side 11/08/2022 Sciatica 11/08/2022 Celiac disease in pediatric patient ([facility]) 05/23/2016 Generalized anxiety disorder 01/01/2017 Mild intermittent asthma ([facility]) 05/23/2016 Panic disorder without agoraphobia 01/01/2017 Biliary dyskinesia 11/08/2022 Type 1 diabetes mellitus without complications ([facility]) 02/04/2023 Type 1 diabetes mellitus with hypoglycemia [...] nursing note reviewed. Exam conducted with a wildlife removal specialist present. Vitals: Estimated body mass index is 35.82 kg/m?? as calculated from the following: Height as of 03/25/25: 4' 10 . Weight as of this encounter: 171 lb 6.4 oz. BP: Patient's last menstrual period was 10/30/2024. Assessment/Plan ICD-10-CM 1. 28 weeks gestation of ([facility]) Z3A.28 POCT urinalysis dipstick manually resulted 2. Type 1 diabetes mellitus during , antepartum ([facility]) O24.019 3. Third trimester ([facility]) Z34.93 POCT urinalysis dipstick manually resulted Assessment/Plan [...] Plan of Treatment DateTypeDepartmentCare Team (Latest Contact Info)Rwwrilmjkan85/22/2025 3:30 PM ESTRoutine [facility] [address] [place] [address] Kolton Cao DO [address] [place] [address] 06/16/2025 4:00 PM ESTRoutine [facility] [address] [place] [address] Dixie Gan, SUPERINTENDENT SYSTEM OPERATION [address] [place] [address] documented as of this encounter Goals GoalPatient Goal TypeAssociated ProblemsRecent ProgressPatient-Stated?Author Reminders Care PlanOB RemindersNoOpen Scheduling, Backgrounddocumented as of this encounter Procedures Procedure NamePriorityDate/TimeAssociated DiagnosisCommentsPOCT URINALYSIS QHVRYANIGrmtkce09/09/2025 2:51 PM EST 28 weeks gestation of ([facility]) Third trimester ([facility]) documented in this encounter Results * (ABNORMAL) [...] / LateralityCollection Method / VolumeCollection Time Received LfwhYrvha55/09/2025 2:51 PM EST Narrative Authorizing ProviderResult TypeResult StatusBon [facility] St[facility] TEST ENTER/EDIT ORDERABLESFinal Result documented in this encounter Visit Diagnoses Diagnosis 28 weeks gestation of ([facility]) Type 1 diabetes mellitus during , antepartum ([facility]) Third trimester ([facility]) state, incidental documented in this encounter Additional Health Concerns Active ProblemsNoted DateDiagnosed DateOB Umypiiyly96/24/2025 documented as of this encounter Care Teams Team MemberRelationshipSpecialtyStart DateEnd Date Dru Rodriguez DO [address] [place] [address] PCP - GeneralFamily Medicine10/22/22 Dru Rodriguez DO [address] [place] [address] PCP - Medical [place] Mghbfwmytl09/1/2312documented as of this encounter
--- OUTSIDE RECORDS SUMMARY | 2025-05-28 14:40 | XMS_ITS | Continuity of Care Document ---
Author Organization [facility] Address [address] [place] [address] Phone Care Team Providers Care Community Engagement Coordinator Name Role Phone Dru Rodriguez DO Primary Care Provider [phone] Greg White MD Emergency Provider Carissa Queen APRN Attending Provider Care Teams Patient Care Team Team Status: Active Member Role/Relationship Status Dates Dru Rodriguez DO Primary Care Provider Active Visit Care Team Team Status: Inactive Member Role/Relationship Status Dates Dru Rodriguez DO Primary Care Provider Active Start: March 06, 2025 End: March 06, 2025De Bean ProviderActiveStart: March 06, 2025 End: March 06, 2025 Visit Care Team Team Status: Inactive Member Role/Relationship Status Dates Dru Rodriguez DO Primary Care Provider Active Start: March 09, 2025 End: March 09, 2025Sofi Oneill ProviderActiveStart: March 09, 2025 End: March 09, 2025 Chief Complaint and Reason for Visit Chief Complaint Admit Date 18wks iup blood sugar issues February 092024 7:50pm 12 week March 09, 2025 8:08am Reason for Visit Admit Date Dietary counseling and surveillance Feb 8:08am Hyperlipidemia, unspecified March 092024 8:08am Insulin pump in place March 09 8:08am FDC (current) use of insulin 2024 8:08am March 09, 2025 8:08am Type 1 diabetes mellitus with hyperglyce kenna March 09, 2025 8:08am Vitamin D deficiency, unspecified Septem rafiq 2024 8:08am Allergies, Adverse Reactions, Alerts Allergen Type Severity Reaction Last Updated Verified Status amoxicillin Allergy Unknown Anaphylaxis, swelling of the mouth March 09, 2025 7:17am Yes Active Social History Smoking Status Status Start Date End Date Date of Observa tion Never smoked tobacco (finding) March 06, 2025 10:19pm Observation Status Observation Response Date of Response Legal Sex Female (finding) Sex Assigned At BirthFemaleSept2000Pregnancy StatusYSeptember 2024 Family History Relationship Condition Age at Onset Recorded Date/T lion father Asthma Unknown sisterDiabetes mellitusUnknownpaternal grandfatherMalignant neoplasmUnknown Problems Active Problems Problem Diagnosis/Recorded Date Onset Date Status 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 16, 2024 [...] D deficiency Vitamin D deficiency, unspecifiedFollow with utnq-zhl-nnbbeyw dosing 2000 units once dailyBlood-Glucose Sensor (Dexcom G6 Sensor) deviceActive0.Tqltt55QojOctober 29, 2024 11:00pmType 1 diabetes mellitus with hyperglycemia Type 1 diabetes mellitus with hyperglycemiaAs directed Change every 10 days Blood-Glucose Transmitter (Dexcom G6 Transmitter) deviceActive0.Fgqqr33Xly2024 11:00pmType 1 diabetes mellitus with hyperglycemia Type 1 diabetes mellitus with hyperglycemiaAs directed Change every 90 days Insulin Lispro 100 unit/mL syulxvtpGovgminnlwks5ENWUUOUtt as Xgcnbcqg039Axgj 2024 7:44amSeptember 2024 8:06amType 1 diabetes mellitus with hyperglycemia Type 1 diabetes mellitus with hyperglycemiasubcutaneously use as directed; INJECT INSULIN SUBCUTANEOUSLY PER PUMP (MAX DAILY DOSE 80 UNITS)Insulin Pump Cart,Auto,Bt,G6/7 (Omnipod 5 G6-G7 Pods (Gen 5)) cartridgeDiscontinued0.Evuam584 January 21, 2025 3:31pmSeptember 2024 8:06amType 1 diabetes mellitus with hyperglycemia Type 1 diabetes mellitus with hyperglycemiaUse to deliver insulin change every 3 daysBlood-Glucose Sensor (Dexcom G7 Sensor) deviceActive0.Xirxt37Czxnxe 2024 3:31pmType 1 diabetes mellitus with hyperglycemia Type 1 diabetes mellitus with hyperglycemiaUse with Omnipod 5 to manage BG change every 10 daysPromethazine 25 mg CeruiwAzrliyrodrhd40ACRGC5V as needed for Vvmhwo225Xrpnuvl 2nd, 2022 12:00amApril 2021 8:03pmInsulin Lispro 100 unit/mL solutionDiscontinuedApril 2021 11:00pmApril 2024 1:33pm adjusted via pumpMultivitamin OtyxzdqVxgfzmbpieve0LGJIXGzcyaAbygi 2021 11:00pmSeptember 2024 7:19amZinc Tablet,LgmkegkbJbtshwfyykop6LPNEKSuyya September 23, 2021 11:00pmApril 2024 1:33pmMecobalamin (Vitamin B12) (B12 Active) 1,000 mcg Tablet,ChewableDiscontinuedMCGPODailyApril 2021 11:00pm August 15, 2022 10:34amLevofloxacin 750 mg ppknpyVhnjadmrxzqc345YMJIDgxrv83Jabte 2021 11:00pmG[facility] 2022 10:35amInsulin Lispro 100 unit/mL solution Uchdvibnoyfh2ivpmqwx scale doseCNTSUBQINFUse as DirectedApril 2024 1:32pm October 14, 2024 9:59amadjusted via pumpGabapentin 100 mg khgqtdaUjlsgllbrcaf716IQ PODaily at 0730, 1530, 2330[facility] 2022 12:00amJune 2022 10:37amFerrous Sulfate (Ferosul) 325 mg (65 mg iron) vgufqcWmegbmkzmubc141TOPLIpdtsXdehq 2022 12:00amApril 2024 1:31pmTramadol 50 mg igzmwnPmmyiiompbrr11ZFXQA9G as needed for gcfz2609Nngr 2022 11:00pmJune 2022 10:38amCholecystitis Cholecystitis, unspecifiedTramadol 50 mg phrmlaSxzvtiiujkpc82HGAJB2S as needed for ueza4925Aejv 2022 11:00pmApril 2024 1:33pmCholecystitis Cholecystitis, unspecifiedBlood-Glucose Meter (True Metrix Air Glucose Meter) miscDiscontinued0.RouteApr2024 11:00pmApril 2024 2:03pmAs directed Blood Sugar Diagnostic (True Metrix Glucose Test Strip) stripDiscontinued0.Route September 15, 2024 11:00pmApril 2024 2:03pmAs directedLancets miscDiscontinued 0.RouteApr2024 11:00pmApril 2024 2:03pmAs directedBlood Sugar Diagnostic (True Metrix Glucose Test Strip) stripDiscontinued0.Qwogi1368Prayq 9th, 2025 1:58pmMay 2024 9:59amDx E10.9 defer to insurance preferredAs directed test blood sugar four times dailyBlood-Glucose Meter (True Metrix Air Glucose Meter) miscActive0.Pmfxq74Oipce 9th, 2025 2:00pmDx E10.9 defer to insurance preferredAs directed test blood sugar four times dailyLancets misc Active0.Chted6797Dnzhw 9th, 2025 2:00pmDx E10.9 defer to insurance preferredAs directed test blood sugar four times dailyBlood Sugar Diagnostic (True Metrix Glucose Test Strip) stripActive0.Jbkxi2515Rmw2024 9:53amType 1 diabetes mellitus with hyperglycemia Type 1 diabetes mellitus with hyperglycemia Dx E10.9 defer to insurance preferredAs directed test blood sugar four times dailyInsulin Lispro 100 unit/mL kolbjbtdElkmveisyrry3ZKMLLIPLMFEro as Directed October 14, 2024 9:56amSeptember 2024 7:18amType 1 diabetes mellitus with hyperglycemia Type 1 diabetes mellitus with hyperglycemiavia continuous subcutaneous infusion use as directed; adjusted via pumpInsulin Lispro 100 unit/mL solution Kuopcihzndhs2BECVSCQvr as Ehbokrca035Too 6th, 2025 11:00pmJune 2024 7:44am Type 1 diabetes mellitus with hyperglycemia Type 1 diabetes mellitus with hyperglycemiasubcutaneously use as directed; INJECT INSULIN SUBCUTANEOUSLY PER PUMP (MAX DAILY DOSE 80 UNITS)Blood-Glucose Sensor (Dexcom G7 Sensor) deviceDiscontinued0.Abyzq71DogOctober 27, 2024 11:00pm January 21, 2025 3:31pmType 1 diabetes mellitus with hyperglycemia Type 1 diabetes mellitus with hyperglycemiaUse with Omnipod 5 to manage BG change every 10 daysInsulin Pump Cart,Auto,Bt,G6/7 (Omnipod 5 G6-G7 Pods (Gen 5)) cartridgeDiscontinued0.Aemtk046Kpw 2024 11:00pmAugust 2024 3:31pmType 1 diabetes mellitus with hyperglycemia Type 1 diabetes mellitus with hyperglycemiaUse to deliver insulin change every 3 daysPrenatal 21-Ufii-Hmuyaa 9-Dha 31 mg iron- 1 mg-200 mg wyhgxfhJyhqsh1QCPOX DailyJuly 2024 11:00pmComplies with drug therapyPsyllium Husk (Fiber (Psyllium Husk)) 0.4 gram capsuleActive0.4GMPODailyJuly 2024 11:00pm Complies with drug therapyBlood-Glucose Sensor (Dexcom G7 Sensor) deviceActive0 .ROUTESept2024 11:00pmAs directedInsulin Lispro 100 unit/mL solution Lyydiluqheka3WPCTBSNay as Upzmlbzt482Ayguhgbli 30th, 2025 8:03amSept2024 8:07amType 1 diabetes mellitus with hyperglycemia Type 1 diabetes mellitus with hyperglycemiasubcutaneously use as directed; INJECT INSULIN SUBCUTANEOUSLY PER PUMP (MAX DAILY DOSE 100 UNITS)Insulin Pump Cart,Auto,Bt,G6/7 (Omnipod 5 G6-G7 Pods (Gen 5)) cartridgeActive0.Xpedj711 March 09, 2025 8:06amType 1 diabetes mellitus with hyperglycemia Type 1 diabetes mellitus with hyperglycemiaUse to deliver insulin change every 3 daysInsulin Lispro 100 unit/mL hfjpktwgLucics6NJHUSGKhq as Ukkiflvg795Bgbdmfwww 30th, 2025 8:06amType 1 diabetes mellitus with hyperglycemia Type 1 diabetes mellitus with hyperglycemiasubcutaneously use as directed; INJECT INSULIN SUBCUTANEOUSLY PER PUMP (MAX DAILY DOSE 100 UNITS)Complies with drug therapy Procedures Procedure Date Performed Status Urine Culture March 06, 2025 completed Relevant Diagnostic Tests and/or Laboratory Data Laboratory Results Test Collection Date/Time Result Date/Time Result Interpretation Reference Range Result Comment Performing Site Bedside Glucose March 09, 2025 7:16am February 7:48am 163 Corrected White Blood CountSeptember 2024 8:54pmSeptember 2024 9:12pm11.4 10*3/uL3.8-11.6[facility] [id number] [address] [facility] [address]Ficouzyoxrr WBC CountSeptember 2024 8:54pmSeptember 2024 9:12pm11.4 10*3/uL3.8-11.6FA[facility] [id number] [address] [facility] [address]Ffz Blood CountSeptember 2024 8:54pmSeptember 2024 9:12pm4.36 10*6/uL3.60-5.00[facility] [id number] [address] [facility] [address]ZemslwyecuFcxjvmxuh 2024 8:54pmSeptember 2024 9:12pm13.1 g/dL11.8-15.4FA[facility] [id number] [address] [facility] [address]CdlcsumnlzQqsondmbv 2024 8:54pmSeptember 2024 9:12pm38.5 %34.0-46.4FA[facility] [id number] [address] [facility] 734[address]Klvi Corpuscular VolumeSeptember 2024 8:54pmSeptember 2024 9:12pm88.3 xZ71-226RukgwihnrThe [facility] [id number] [address] [facility] [address]Jmqu Corpuscular HemoglobinSeptember 2024 8:54pmSeptember 2024 9:12pm30.1 pg24.7-34.3FA[facility] [id number] [address] [facility] 95476Zndw Corpuscular Hemoglobin ConcentSeptember 2024 8:54pm Lacy 2024 9:12pm34.0 g/dL32.0-35.0[facility] [id number] [address] [facility] 844[address]Rxt Cell Distribution WidthSeptember 2024 8:54pmSeptember 2024 9:12pm13.5 %11.9-15.3FA[facility] [id number] [address] [facility] [address]Pkeydmgl CountSeptember 2024 8:54pmSeptember 2024 9:87qt379 10*3/mU386-903FuorrigtfThe [facility] [id number] [address] [facility] 218[address]Tbwu Platelet VolumeSeptember 2024 8:54pmSept2024 9:12pm8.6 fL6.3-10.7FA[facility] [id number] [address] [facility] 733[address]Onkuvjfx Distribution WidthSeptember 2024 8:54pmSept2024 9:12pm16.87 %0.00-20.00[facility] [id number] [address] [facility] [address]Gydlprretsc (%) (Auto)March 06, 2025 8:54pmSept2024 9:12pm80.3 %.[facility] [id number] [address] [facility] 196[address]Pifodlgvynw (%) (Auto)March 06, 2025 8:54pmSept2024 9:12pm13.2 %.[facility] [id number] [address] [facility] 384[address]Gdhxikvbh (%) (Auto)March 06, 2025 8:54pmSept2024 9:12pm5.4 %.[facility] [id number] [address] [facility] [address]Sypkzikpdwv (%) (Auto)March 06, 2025 8:54pmSept2024 9:12pm0.5 %.[facility] [id number] [address] [facility] 05293Wzxvntpyr (%) (Auto)March 06, 2025 8:54pmSept2024 9:12pm0.6 %.[facility] [id number] [address] [facility] 72528Udvgnmbkb RBC Relative Count (auto)March 06, 2025 8:54pm March 06, 2025 9:12pm0.1 /100{WBC}0-0.5FA[facility] [id number] [address] [facility] 49896Zfpgooqnuxj # (Auto)March 06, 2025 8:54pmSeptember 2024 9:12pm9.2 10*3/uLAbove high normal1.8-7.7FA[facility] [id number] [address] [facility] [address]24[address]Csjfbepplce # (Auto)March 06, 2025 8:54pmSeptember 2024 9:12pm1.5 10*3/uL1.00-4.8[facility] [id number] [address] [facility] 571[address]Ddmegbcsh # (Auto)March 06, 2025 8:54pmSeptember 2024 9:12pm0.6 10*3/uL0.0-0.8[facility] [id number] [address] [facility] 34328Pczggktnmlx # (Auto)March 06, 2025 8:54pmSeptember 2024 9:12pm0.1 10*3/uL0.0-0.45[facility] [id number] [address] [facility] 495[address]Ipnojdrjt # (Auto)March 06, 2025 8:54pmSeptember 2024 9:12pm0.1 10*3/uL0.0-0.2FA[facility] [id number] [address] [facility] [address]Yidnt ColorSeptember 2024 9:04pmSeptember 2024 9:12pmLight-yellowYellowThe [facility] [id number] [address] [facility] [address]Vydjo AppearanceSeptember 2024 9:04pmSeptember 2024 9:12pmCloudyAbnormal (applies to non-numeric results)ClearThe [facility] [id number] [address] [facility] [address]Onglf Specific GravitySept2024 9:04pmSeptember 2024 9:12pm1.0071.001-1.030[facility] [id number] [address] [facility] 17772Uzsbu pHSeptember 2024 9:04pmSeptember 2024 9:12pm 7.05.0-9.0[facility] [id number] [address] [facility] 06974Yabdf Leukocyte EsteraseSeptember 2024 9:04pmSeptember 2024 9:12pm4+Above high normalNegativeThe [facility] [id number] [address] [facility] 96646Enpsn NitriteSeptember 2024 9:04pmSeptember 2024 9:12pmNegativeNegativeThe [facility] [id number] [address] [facility] 13841Kdoez ProteinSeptember 2024 9:04pmSeptember 2024 9:12pmNegative mg/dLNegativeThe [facility] [id number] [address] [facility] 25338Bxzjr Glucose (UA)March 06, 2025 9:04pmSeptember 2024 9:12pmNormal mg/dLNormalThe [facility] [id number] [address] [facility] 060[address]Clbtn KetonesSeptember 2024 9:04pmSeptember 2024 9:12pmNegativeNegativeThe [facility] [id number] [address] [facility] 61739Ioxvf UrobilinogenSeptember 2024 9:04pmSeptember 2024 9:12pmNormal mg/dLNormalThe [facility] [id number] [address] [facility] 97534Wahxj BilirubinSeptember 2024 9:04pmSeptember 2024 9:12pmNegativeNegativeThe [facility] [id number] [address] [facility] 415[address]Mwfof Occult BloodSeptember 2024 9:04pmSeptember 2024 9:12pmNegativeNegativeThe [facility] [id number] [address] [facility] 30262Ngzwa RBCSeptember 2024 9:04pmSeptember 2024 9:18pm 10-19 [HPF]Above high normal0-4FA[facility] [id number] [address] [facility] 01261Utbyi WBCSeptember 2024 9:04pmSeptember 2024 9:18pm 20-49 [HPF]Above high normal0-4FA[facility] [id number] [address] [facility] 79124Eryhn WBC ClumpsSeptember 2024 9:04pmSeptember 2024 9:18pmFew [LPF]Above [facility] normalNone [facility] [id number] [address] [facility] 82018Aalkb Squamous Epithelial CellsSeptember 2024 9:04pm March 06, 2025 9:23cw93-053 [HPF]Above high normal0-2FA[facility] [id number] [address] [facility] 18837Zvhvd Calcium Oxalate CrystalsSeptember 2024 9:04pm March 06, 2025 9:18pm1+ [HPF][facility] [id number] [address] [facility] 43290Ttelz BacteriaSeptember 2024 9:04pmSeptember 2024 9:18pm2+ [HPF]Above high normalNone [facility] [id number] [address] [facility] 46794Bjaii Hyaline CastsSeptember 2024 9:04pmSeptember 2024 9:20aa7-3 [LPF]0-8[facility] [id number] [address] [facility] 927[address]Oqrqi MucusSeptember 2024 9:04pmSeptember 2024 9:18pmRare [LPF][facility] [id number] [address] [facility] 26338Mkjug Yeast (Budding)March 06, 2025 9:04pmSeptember 2024 9:18pm2+ [HPF]Above high normalNone SeenThe [facility] [id number] [address] [facility] 40842Tkcgdpm LevelSeptember 2024 8:54pmSeptember 2024 9:31pm84 mg/vY27-728MJO recommended reference rangeRandom Glucose Reference Range is dependent on time and content of last meal. Glucose of more than 200 mg/dL in a nonstressed, ambulatory subject supports the diagnosisof Diabetes Mellitus.[facility] [id number] [address] [facility] 6[address]Nasuo Urea NitrogenSeptember 2024 8:54pmSeptember 2024 9:31pm8 mg/dL7-25[facility] [id number] [address] [facility] 88309CppcofaxzsCnqbauost 2024 8:54pmSeptember 2024 9:31pm0.54 mg/dLBelow low normal0.60-1.20[facility] [id number] [address] [facility] 39167Azjczfdwz GFR (CKD-EPI)March 06, 2025 8:54pmSeptember 2024 9:31pm> 60.0 mL/MinThe [facility] [id number] [address] [place] [address]Sodium LevelSeptember 2024 8:54pmSeptember 2024 9:71eg677 mmol/J176-166NdvbxjcjoThe [facility] [id number] [address] [facility] 33595Fdhsynciu LevelSeptember 2024 8:54pmSeptember 2024 9:31pm4.1 mmol/L3.5-5.1FA[facility] [id number] [address] [facility] 98135Cigfmcss LevelSeptember 2024 8:54pmSeptember 2024 9:06ra659 mmol/Q56-555AnqnzvdgiThe [facility] [id number] [address] [place] [address]70Carbon Dioxide LevelSeptember 2024 8:54pmSeptember 2024 9:31pm28.0 mmol/L21.0-31.0[facility] [id number] [address] [facility] 91280Qptvv GapSeptember 2024 8:54pmSeptember 2024 9:31pm 8.1 mEq/L6.0-15.0[facility] [id number] [address] [facility] 189[address]Ifzoaxz LevelSeptember 2024 8:54pmSeptember 2024 9:31pm9.3 mg/dL8.6-10.3FA[facility] [id number] [address] [facility] 81758Pifxw ProteinSeptember 2024 8:54pmSeptember 2024 9:31pm7.3 g/dL6.4-8.9[facility] [id number] [address] [facility] 93870PgpbljfFvovwpalm 2024 8:54pmSeptember 2024 9:31pm 3.9 g/dL3.5-5.7FA[facility] [id number] [address] [facility] 506[address]OhcqhazsSrdgefdfk 2024 8:54pmSeptember 2024 9:31pm 3.4 g/dLThe [facility] [id number] [address] [facility] 42198Feydyov/Globulin RatioSeptember 2024 8:54pmSeptember 2024 9:31pm1.1FA[facility] [id number] [address] [facility] 92176Uypzn BilirubinSeptember 2024 8:54pmSeptember 2024 9:31pm0.3 mg/dL0.3-1.0[facility] [id number] [address] [facility] 55356Ndczfagsn Amino Transf (AST/SGOT)March 06, 2025 8:54pm March 06, 2025 9:31pm48 U/LAbove high fliuov45-89UkhzzenesThe Jewish Hospital Ctr [id number] [address] [facility] 94961Xukvgyy Aminotransferase (ALT/SGPT)March 06, 2025 8:54pm March 06, 2025 9:31pm74 U/LAbove high normal7-52[facility] [id number] [address] [facility] 25134Eeyfixoo PhosphataseSeptember 2024 8:54pmSeptember 2024 9:31pm58 U/O50-771IydaoqqymThe [facility] [id number] [address] [facility] 745[address]Gtrml Creatine KinaseSeptember 2024 8:54pmSeptember 2024 9:31pm35 U/M11-014VumvdqijzThe [facility] [id number] [address] [facility] 89869Hqouxtqe I High SensitivitySeptember 2024 8:54pmSeptember 2024 9:39pm5 ng/L0-15The Troponin units of report have been changed to meet the Chest Pain Accreditation requirement, element EC5.M1l2. Troponin units are changed from pg/ml to ng/L. Also, the decimal is removed and results are in whole numbers.[facility] [id number] [address] [facility] 78359Muaxvfzj Creatinine Clearance (ChemSeptember 2024 8:54pm March 06, 2025 9:79wu176.33[facility] [id number] [address] [facility] [address]Gjksimx GlucoseSeptember 2024 10:41pmSeptember 2024 10:42pm62 mg/dLRandom Glucose Reference Range is dependent on time and content of last meal. Glucose of more than 200 mg/dL in a nonstressed, ambulatory subject supports the diagnosis of Diabetes Mellitus.Point of Care testingBedside Glucose CommentSeptember 2024 7:07pmSeptember 2024 7:05xdNzk3: cleaned meterPoint of Care testing Microbiology Results Procedure Source Result Collection Date/Time Result Date/Time Result Comment Performing Site Urine Culture Urine, Clean-Voided Midstream Strep agalactiae - (group b) March 06, 2025 10:04pm March 09, 2025 7:19am [facility] [id number] [address] [place] [address] Vital Signs Vital Reading Result Reference Range Collection Date/Time Height 59 [in_i] March 06, 2025 7:39tbPyhafh63.13 kgSeptember 2024 7:08pmBody Gwklswntirc84.1 [degF]97.6-99.0September 2024 7:08pmHeart Rate87 /min 60-100Sept2024 9:47pmRespiratory rate18 /lfw21-03Qamxertgk 27th, 2025 9:45pmOxygen saturation by Pulse zfrasulk83 %95-100Sept2024 9:47pmBP Wijycvwe630 mm[Hg]100-140Sept2024 9:45pmBP Phnyurpff19 mm[Hg]60-100September 2024 9:16cqCukagw08 [in_i]March 09, 2025 7:07nqImosyf40.40 kgSept2024 7:13amHeart Rate95 /jyn95-581Mkpyygigs 30th, 2025 7:13amRespiratory rate18 /xzt56-81Yncnqlqfg 30th, 2025 7:13amOxygen saturation by Pulse rxooribz63 %95-100Sept2024 7:13amBP Wijmayji889 mm[Hg]100-140Sept2024 7:13amBP Vdtabhvwb61 mm[Hg]60-100September 2024 7:13amBMI (Body Mass Index)29.9 kg/b1Ufhzcsubg2024 7:13am Advance Directives Advance Directive Response Recorded Date/ Time Advance Directives No August 28 8:42am Insurance Providers Guarantor Elizabeth Parker Address [address] [place] [id number] Info.Home Phone: Coverage Status Update:2025 Payer Group Member ID Coverage Type Subscriber Relationship to Subscriber Effective Date Expiration Date [facility] [place] [id number] Druckenmiller , P M Id: [id number] [address] [place] [id number] Home Phone: Email: [email or web address] Id: [id number] Seamon , P Id: [id number] [address] [facility] [address] Home Phone: Email: none Encounters Encounter Location(s) Arrival/Admit Date Discharge/Departure Date Discharge/Departure Disposition Provider(s) Departed Emergency -Emergency Room March 06, 2025 7:50pm March 06, 2025 11:50pm Discharged to home care or self care (routine discharge) Departed Physician/Provider Office Visit[facility]20[facility] 8:08am March 09, 2025 8:49amDischarged to home care or self care (routine discharge)Carissa Queen , DIAL MOUNTER Recent Diagnosis Onset Date Admit Date Dietary counseling and surveillance Unknown March 09, 2025 8:08am Hyperlipidemia, unspecified Unknown Feb 8:08am Insulin pump in place Unknown March 09, 2025 8:08am 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 Unknown March 09, 2025 8:08am Unknown March 09, 2025 8:08am Type 1 diabetes mellitus with hyperglycemia Unkn own March 09, 2025 8:08am Vitamin D deficiency, unspecified Unknown March 09, 2025 8:08am Assessments Diagnosis Onset Date Resolution Status Admit Date Dietary counseling and surveillance acuteSeptember 2024 8:08amHyperlipidemia, unspecifiedacuteSeptember 2024 8:08amInsulin pump in placeacuteSept2024 8:08amLong term (current) use of insulinacuteSept2024 8:08amPregnancyacuteSept2024 8:08amType 1 diabetes mellitus with hyperglycemiaacuteSept2024 8:08amVitamin D deficiency, unspecifiedacuteSept2024 8:08am Plan of Treatment [facility] 3:47pm Now being managed by maternal- [...] CGM or glucometer at this time. Uses [employer] glucometer or checks blood glucose at work. [...] 1 unit for every 12 carbohydrates. Target eydyr312 mg/dL threshold correction 125 mg/dL. 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 New to [facility], new to diabetes program. Previously seen by[]. [...] and supplies d/t employee diabetes program at [facility]. wear CGM at all times. Lipids UMIC [...]
--- OUTSIDE RECORDS SUMMARY | 2025-05-28 14:40 | XMS_ITS | Encounter Summary ---
Author Organization [facility] Address [address] [place] [address] Care Team Providers Care Hose Tubing Backer Name Role Phone Joaquín Rodriguez DO Primary Care Provider [phone]- [phone] Joaquín Rodriguez DO Unavailable [phone] Encounter Details DateTypeDepartmentCare Team (Latest Contact Info)Eeksuhbteiu97/05/2025Clinisync Result Encounter [facility] External Department Unsolicited Bryant Cao DO [address] [place] [address] Social History Tobacco UseTypesPacks/DayYears UsedDateSmoking Tobacco: NeverSmokeless [...] relatives?Twice a week03/11/2023How often do you attend yazidi or yazidi services?1 to 4 times per year03/11/2023o you belong to any clubs or organizations such as yazidi groups, unions, fraternal or athletic laura ups, or school groups?No03/11/2023How often do you attend meetings of the clubs or organizations you belong to?Never03/11/2023re you , , , , never , or living with a partner?Epsbfgh3003/11/2023 AUDIT-CAnswerDate RecordedQ1: How often do you have a drink containing alcohol? Monthly or less03/11/2023Q2: How many drinks containing alcohol do you have on a typical day when you are drinking?3 or Q3: How often do you have six or more drinks on one occasion?Less than qnoibhd6703/11/2023Overall Financial Resource Strain (CARDIA)AnswerDate RecordedHow hard is it for you to pay for the very basics like food, housing, medical care, and heating?Somewhat hard 03/11/2023HQ-2AnswerDate RecordedPatient Health Questionnaire-2 Score0 03/25/2025[facility] [place] of Occupational Health - Occupational Stress QuestionnaireAnswerDate [...] slept in ashelter (including now)?No03/11/2023Estimated Date of IhzyfcynXtgvavncYup86/27/2026ased on last menstrual period of 10/30/2024Sex and Gender InformationValueDate RecordedSex Assigned at HschkHbjrub24/01/2023 1:10 PM EDTLegal CgcZtexgb22/15/2023 6:51 PM EDTGender IjabnbhzNoctnh18/01/2023 1:10 PM EDTSexual HidehmlqgsyYrzienks66/01/2023 1:10 PM EDTdocumented as of this encounter Plan of Treatment DateTypeDepartmentCare Team (Latest Contact Info)Mawcewuwwja60/22/2025 3:30 PM ESTRoutine [facility] Issac PORTILLO [address] [place] [address] Bryant Cao, [address] [place], [place] [address] 06/16/2025 4:00 PM ESTRoutine NOMAislinn PORTILLO [address] [place] [address] Dixie Gan, AUTOMOTIVE SALES MANAGER [address] [place] [address] documented as of this encounter Goals GoalPatient Goal TypeAssociated ProblemsRecent ProgressPatient-Stated?Author Reminders Care PlanOB RemindersNoOpen Scheduling, Backgrounddocumented as of this encounter Procedures Procedure NamePriorityDate/TimeAssociated DiagnosisCommentsUS OB BPP W NON-UIFRLR3005/14/2025 7:38 PM EST documented in this encounter Results * US OB BPP W NON-STRESS (05/14/2025 7:38 PM EST)Anatomical Region LateralityModalityOtherSpecimen (Source)Anatomical Location / Laterality Collection Method / VolumeCollection TimeReceived Time05/14/2025 7:38 PM EST Narrative 05/14/2025 7:[address] [facility] ?[address] ? [place] [address] ? Ultrasound Report ? Signed ? Patient: KAELYN SHAW ?MR#: [id number] ?? : 2000 ?Acct:[id number] ?? Age/Sex: 25 / F ?ADM Date: 05/14/25 ?? Loc: [facility] ??250-1 ? Attending Dr: Bryant Cao D.O. ? Ordering Physician: Bryant Cao D.O. ?? Date of Service: 05/14/25 ?? Procedure(s): US OB BPP w non-stress ?? Accession Number(s): [id number] ? cc: Bryant Cao D.O.; JOAQUÍN RODRIGUEZ ? [facility] ? [address] ? [place] [address] ? Patient Name: ?? THOMASJYOTI SHAW ? MRN: [facility]:[id number] ? date: 2000 ?Sex: F ?? Assigned Patient Location: ?? Current Patient Location: ?? Accession/Order Number: [id number] ?? Exam Date: 05/14/2025 ??18:49 ?Report Date: [...] Dictation Location: RADIO-PC-29 ? Electronically authenticated by: [id number] ??Y ?? Date: 05/14/2025 ??19:38 ? Dictated By: ?Kaveh Romeo M.D. ? Signed By: ?05/14/25 1940 ? DD/ 1938 ? TD/TT: ? Supervisor Denture Department: Procedure Note Radiology, Radiologist, - 05/14/2025 [place] [address] Ultrasound Report Signed Patient: KAELYN SHAW#: [id number] : 2000Acct:[id number] Age/Sex: 25 / FADM Date: 05/14/25 Loc: [facility] 250-[address]: Bryant Cao D.O. Ordering Physician: Bryant Cao D.O. Date of Service: 05/14/25 Procedure(s): US OB BPP w non-stress Accession Number(s): [id number] cc: Bryant Cao D.O.; JOAQUÍN RODRIGUEZ [place] [id number] Patient Name: KAELYN SHAW MRN: [id number] date: 2000 Sex: F Assigned Patient Location: US Current Patient Location: US Accession/Order Number: [id number] Exam Date: 05/14/2025 18:49 Report Date: 05/14/2025 19:38 At the request of: BRYANT CAO DO Procedure: US OB BPP w non-stress Ultrasound biophysical profile INDICATION: BPP COMPARISON: None FINDINGS IMPRESSION: SINGLE LIVE INTRAUTERINE IN CEPHALICPOSITION. HEART RATE 145 BPM. AMNIOTIC FLUID INDEX 13.3 CM. BIOPHYSICALPROFILE SCORE 8/8 Impression dictated by: Kaveh Romeo M.D. 05/14/2025 7:38 PM Dictation Location: [place] [address] Electronically authenticated by: [id number] Y Date: 9:38 Dictated By: Kaveh Romeo M.D. Signed By:05/14/251939 DD/ 37 TD/TT: Supervisor Denture Department: Authorizing ProviderResult TypeResult StatusCorey Kiley DOCLINISYNC IMAGINGFinal Result documented in this encounter Visit Diagnoses Not on filedocumented in this encounter Additional Health Concerns Active ProblemsNoted DateDiagnosed DateOB Kcgghcxzy98/24/2025 documented as of this encounter Care Teams Team MemberRelationshipSpecialtyStart DateEnd Date Joaquín Rodriguez DO [address] [place] [address] PCP - GeneralFamily Medicine10/22/22 Joaquín Rodriguez DO [address] [place] [address] PCP - Medical Cassel Spwhrclrpf68/1/2312documented as of this encounter
--- OUTSIDE RECORDS SUMMARY | 2025-05-28 14:41 | XMS_ITS | Encounter Summary ---
Author Organization [facility] tem Address [id number] [address] [place] [address] Care Team Providers Care Associate Veterinarian Name Role Phone JenniferDru April MUNGUIA Primary Care Provider [phone]- [phone] Encounter Details DateTypeDepartmentCare Team (Latest Contact Info)Efektnicirs76/25/2025Orders Only Maternal- Medicine at [facility] [address] [place] [phone] Rosy Arredondo PA-C [address] [address] Social History Tobacco UseTypesPacks/DayYears UsedDateSmoking Tobacco: NeverSmokeless [...] care, and heating?Not hard at all02/17/2025PHQ-2AnswerDate RecordedTotal Shsxn514[facility] [place] of Occupational Health - Occupational Stress QuestionnaireAnswerDate [...] of a household?No02/17/2025hildcareAnswerDate RecordedDo problems getting child advocate make it difficult for you to work [...] and direction in my life.Agree02/17/2025Estimated Date of WmnjucxmWoovhjthOmy68/27/2026ased on last menstrual period of 10/30/2024Sex and Gender InformationValueDate RecordedSex Assigned at OizleRuxamr15/22/2025 1:51 AM EDTLegal SexFemale 01/13/2015 11:58 AM EDTGender ScpizgbuQzwlyb10/22/2025 1:51 AM EDTSexual OrientationNot on filedocumented as [...] Plan of Treatment DateTypeDepartmentCare Team (Latest Contact Info)Rchqiatsucj88/02/2026 3:30 PM ESTAppointment [facility] [address] [place] [address] documented as of this encounter Visit Diagnoses Not on filedocumented in this encounter Additional Health Concerns AssessmentNoted TimePHQ-9 Depression Total Score: 8:31 AM ESTA Body Mass Index follow-up plan has been documented for the gdykmrf2206/12/2023 4:35 PM ESTdocumented as of this encounter Care Teams Team MemberRelationshipSpecialtyStart DateEnd Date Dru Rodriguez DO [address] [place] [address] PCP - General01/01/17documented as of this encounter
--- OUTSIDE RECORDS SUMMARY | 2025-05-28 14:41 | XMS_ITS | Encounter Summary ---
Author Organization [facility] tem Address [id number] [address] [place] [address] Care Team Providers Care Manager Intern Name Role Phone JenniferDru April MUNGUIA Primary Care Provider [phone]- [phone] Encounter Details DateTypeDepartmentCare Team (Latest Contact Info)Vgxlprrztim96/19/2025Orders Only Maternal- Medicine at [facility] [address] [place] [address] Odilia Dumas RN [address] [address] Social History Tobacco UseTypesPacks/DayYears UsedDateSmoking Tobacco: NeverSmokeless [...] care, and heating?Not hard at all02/17/2025PHQ-2AnswerDate RecordedTotal Eeqsl59206/12/2023[facility] [place] of Occupational Health - Occupational Stress QuestionnaireAnswerDate [...] part of a household?No02/17/2025hildcareAnswerDate RecordedDo problems getting childrens club attendant make it difficult for you to work [...] and direction in my life.Agree02/17/2025Estimated Date of DodgooedEffoohgrRyd59/27/2026Based on last menstrual period of 10/30/2024Sex and Gender InformationValueDate RecordedSex Assigned at UohlwKaevgn70/22/2025 1:51 AM EDTLegal SexFemale 01/13/2015 11:58 AM EDTGender VtjjrqhnGpnnao81/22/2025 1:51 AM EDTSexual OrientationNot on filedocumented as of this encounter Plan of Treatment DateTypeDepartmentCare Team (Latest Contact Info)Xadzidjkvhb28/02/2026 3:30 PM ESTAppointment [facility] [address] [place] [address] documented as of this encounter Visit Diagnoses Not on filedocumented in this encounter Additional Health Concerns AssessmentNoted TimePHQ-9 Depression Total Score: 8:31 AM ESTA Body Mass Index follow-up plan has been documented for the tgmazvb8206/12/2023 4:35 PM ESTdocumented as of this encounter Care Teams Team MemberRelationshipSpecialtyStart DateEnd Date Dru Rodriguez DO [address] [place] [address] PCP - General01/01/17documented as of this encounter
--- OUTSIDE RECORDS SUMMARY | 2025-05-28 14:41 | XMS_ITS | Encounter Summary ---
Author Organization [facility] tem Address [id number] [address] [place] [address] Care Team Providers Care Advertising Display Rotator Name Role Phone Simon Rodriguezew April MUNGUIA Primary Care Provider [phone]- [phone] Encounter Details DateTypeDepartmentCare Team (Latest Contact Info)Ziseisebeln40/05/2025Telephone Maternal- Medicine at [facility] [address] [place] [phone] Katie Orozco, [address] [facility] [address] [place] [address] Social History Tobacco UseTypesPacks/DayYears UsedDateSmoking Tobacco: NeverSmokeless Tobacco: NeverAlcohol UseStandard Drinks/WeekCommentsYes0 (1 standard drink = 0.6 oz pure alcohol)[facility] UtilitiesAnswerDate RecordedIn the past 12 months [...] care, and heating?Not hard at all02/17/2025PHQ-2AnswerDate RecordedTotal Smkrt592Finspanish fork hospital [place] of Occupational Health - Occupational Stress QuestionnaireAnswerDate [...] and direction in my life.Agree02/17/2025Estimated Date of HceirhkpNlmmfnmyCml25/27/2026ased on last menstrual period of 10/30/2024Sex and Gender InformationValueDate RecordedSex Assigned at WjrlmUknbfa49/22/2025 1:51 AM EDTLegal SexFemale 01/13/2015 11:58 AM EDTGender TmccuxgrWkpghe06/22/2025 1:51 AM EDTSexual OrientationNot on filedocumented as [...] Plan of Treatment DateTypeDepartmentCare Team (Latest Contact Info)Vkndccmmzmw65/02/2026 3:30 PM ESTAppointment [facility] [address] [place] [address] documented as of this encounter Visit Diagnoses Diagnosis Uncontrolled type 1 diabetes mellitus with hyperglycemia, with long-term current use of insulin ([facility]) documented in this encounter Additional Health Concerns AssessmentNoted TimePHQ-9 Depression Total Score: 8:31 AM ESTA Body Mass Index follow-up plan has been documented for the avgvhum9506/12/2023 4:35 PM ESTdocumented as of this encounter Care Teams Team MemberRelationshipSpecialtyStart DateEnd Date Dru Rodriguez DO [address] [place] [address] PCP - General01/01/17documented as of this encounter
--- OUTSIDE RECORDS SUMMARY | 2025-05-28 14:41 | XMS_ITS | Encounter Summary ---
Author Organization [facility] Address [address] [place] [address] Care Team Providers Care Review Rn Name Role Phone Dru Rodriguez DO Primary Care Provider [phone]- [phone] Dru Rodriguez DO Unavailable [phone] Encounter Details DateTypeDepartmentCare Team (Latest Contact Info)Ubenuyghcrh44/19/2025Telephone [facility] [place] [facility] [address] [phone] Kolton Cao DO [address] [place] [phone] Social History Tobacco UseTypesPacks/DayYears UsedDateSmoking Tobacco: NeverSmokeless [...] relatives?Twice a week03/11/2023How often do you attend evangelical or anabaptism services?1 to 4 times per year03/11/2023o you belong to any clubs or organizations such as evangelical groups, unions, fraternal or athletic laura ups, or school groups?No03/11/2023How often do you attend meetings of the clubs or organizations you belong to?Never03/11/2023re you , , , , never , or living with a partner?Egkgrpt6003/11/2023 AUDIT-CAnswerDate RecordedQ1: How often do you have a drink containing alcohol? Monthly or less03/11/2023Q2: How many drinks containing alcohol do you have on a typical day when you are drinking?3 or Q3: How often do you have six or more drinks on one occasion?Less than hwjozrk5203/11/2023Overall Financial Resource Strain (CARDIA)AnswerDate RecordedHow hard is it for you to pay for the very basics like food, housing, medical care, and heating?Somewhat hard 03/11/2023HQ-2AnswerDate RecordedPatient Health Questionnaire-2 Score0 03/25/2025Finlifepoint hospitals [place] of Occupational Health - Occupational Stress [...] slept in ashelter (including now)?No03/11/2023Estimated Date of EkjnnwohWvuznrzbDnl32/27/2026ased on last menstrual period of 10/30/2024Sex and Gender InformationValueDate RecordedSex Assigned at DvnsoJfhscc35/01/2023 1:10 PM EDTLegal OajQhkmie75/15/2023 6:51 PM EDTGender DfobyucjVujmix15/01/2023 1:10 PM EDTSexual FumgxxagxrbChepnmkk58/01/2023 1:10 PM EDTdocumented as of this encounter Miscellaneous Notes * Telephone Encounter - Aline Fernández LPN - 05/28/2025 9:23 AM EST The reason I am calling is because I am getting my Rhogam shot today over at the [facility] and have to get blood work done before then. And I just wanted to see if Dr. Cao wanted to do any other blood work. I am 30 weeks now and my kidneys have been hurting. I know that is kind of normal at this point just because of how big I am and kind of where the baby sits. But I was also like having dark urine. My blood sugars have been fine. I have been drinking enough water. So I just did not know if he would want to order any other tests for that. So I just wanted to call and see before I went and got that done, I am going around 100 p m today. You can either give me a call back or if he decides to put orders in, you can send me a Message through my portal and I will see it. You can call me back at [phone]. Thank you. Patient call was returned and advised we will send orders over for Urine Culture for her to have completed. PVU orders sent at this time. documented in this encounter Plan of Treatment DateTypeDepartmentCare Team (Latest Contact Info)Ssusqprogkc50/22/2025 3:30 PM ESTRoutine [facility] Issac PORTILLO [address] [place] [address] [place] [phone] Kolton Cao DO [address] [place] [place], [place] [address] 06/16/2025 4:00 PM ESTRoutine NOMAislinn PORTILLO [address] [place] [phone] Dixie Gan, CAR BODY INSPECTOR [address] [place] [phone] NameTypePriorityAssociated DiagnosesOrder ScheduleUrine cultureMicrobiology Routine Kidney pain Expected: 05/28/2025 (Approximate), Expires: 05/28/2026documented as of this encounter Goals GoalPatient Goal TypeAssociated ProblemsRecent ProgressPatient-Stated?Author Reminders Care PlanOB RemindersNoOpen Scheduling, Backgrounddocumented as of this encounter Visit Diagnoses Diagnosis Kidney pain Renal colic documented in this encounter Additional Health Concerns Active ProblemsNoted DateDiagnosed DateOB Vrnjenqsv88/24/2025 documented as of this encounter Care Teams Team MemberRelationshipSpecialtyStart DateEnd Date Dru Rodriguez DO [address] [place] [address] PCP - GeneralFamily Medicine10/22/22 Dru Rodriguez DO [address] [facility] [place] [address] PCP - Medical [facility]03/10/2312documented as of this encounter
--- OUTSIDE RECORDS SUMMARY | 2025-05-28 14:41 | XMS_ITS | Encounter Summary ---
Author Organization [facility] tem Address [id number] [address] [place] [address] Care Team Providers Care Irrigation System Operator Name Role Phone JenniferDru April MUNGUIA Primary Care Provider [phone] Encounter Details DateTypeDepartmentCare Team (Latest Contact Info)Iygwjotjniy77/19/2025Telephone Maternal- Medicine at [facility] [address] [place] [phone] Odilia Dumas RN [address] [address] Social History Tobacco UseTypesPacks/DayYears UsedDateSmoking Tobacco: NeverSmokeless Tobacco: NeverAlcohol UseStandard Drinks/WeekCommentsYes0 (1 standard drink = 0.6 oz pure alcohol)[facility] UtilitiesAnswerDate RecordedIn the past 12 [...] care, and heating?Not hard at all02/17/2025PHQ-2AnswerDate RecordedTotal Wvrek668Finlifepoint hospitals [place] of Occupational Health - Occupational Stress QuestionnaireAnswerDate [...] and direction in my life.Agree02/17/2025Estimated Date of QljemmbfElcjcecyGdh93/27/2026ased on last menstrual period of 10/30/2024Sex and Gender InformationValueDate RecordedSex Assigned at TqcneVerirm47/22/2025 1:51 AM EDTLegal SexFemale 01/13/2015 11:58 AM EDTGender WrnpfmclNcwtmg64/22/2025 1:51 AM EDTSexual OrientationNot on filedocumented as of this encounter Miscellaneous Notes * Telephone Encounter - Odilia Dumas RN - 05/28/2025 10:34 AM ESTSummary: [facility] [facility] [employer] Reports Called. No answer. Message left that Dr. Jeffrey reviewed insulin pump and CGM reports and made nochanges; however, was wondering if knows why experiencing lows. Questioned whether missing snacks. Noted automated mode remains on with insulin pump. Requested return call or message with thoughts onwhy blood sugar/glucose dropping low. MyChart Message sent. documented in this encounter Plan of Treatment DateTypeDepartmentCare Team (Latest Contact Info)Xkuvpksjwxk96/02/2026 3:30 PM ESTAppointment [facility] Imaging [address] [place] [phone] documented as of this encounter Visit Diagnoses Diagnosis Uncontrolled type 1 diabetes mellitus with hyperglycemia, with long-term current use of insulin ([facility]) documented in this encounter Additional Health Concerns AssessmentNoted TimePHQ-9 Depression Total Score: 8:31 AM ESTA Body Mass Index follow-up plan has been documented for the sbhscjz9606/12/2023 4:35 PM ESTdocumented as of this encounter Care Teams Team MemberRelationshipSpecialtyStart DateEnd Date Dru Rodriguez DO [address] [place] [address] PCP - General01/01/17documented as of this encounter
--- OUTSIDE RECORDS SUMMARY | 2025-05-28 14:41 | XMS_ITS | Clinical Summary ---
Author Organization [facility] tem Address [id number] [address] [place] [address] Care Team Providers Care Process Development Chemist Name Role Phone JenniferDru April MUNGUIA Primary Care Provider [phone] Allergies Active AllergyReactionsCriticalityNoted PximWpezosfcLahrpisnjdl85/14/2016 Has since taken without reaction Medications * [...] with hyperglycemia, with long-term current use of jgqhxxu8502/17/2025Type 1 diabetes mellitus during in third wdiidarpr69/11/2025DKA, type 1, not at goal 07/30/2018Diabetic ketoacidosis associated with type 1 diabetes mellitus 02/22/2017Acute renal dybvgwkxmavhw19/11/2017Mechanical breakdown of insulin pump02/18/2017Generalized anxiety jrzotgli59/25/2017Panic disorder without zogdhggrphx02/25/2017DKA, type Mild intermittent jzivvg9605/23/2016 Estimated Date of DierxrhdFspymtxcUpu35/27/2026ased on last menstrual period of 10/30/2024 Resolved Problems ProblemNoted DateDiagnosed DateResolved DateCeliac disease in pediatric patient Encounters DateTypeDepartmentCare AehhNuluagzddaa55/19/2025Telephone Maternal- Medicine at [facility] [address] [facility] [place] [address] Odilia Dumas RN 05/28/2025Orders Only Maternal- Medicine at [facility] [address] [facility] [place] [place] [address] Odilia Dumas RN 05/26/2025Telephone Maternal- Medicine at [facility] [address] [facility] [place] [address] Yue Bullock, BRANDT 05/17/2025 1:00 PM ESTTelemedicine Maternal- Medicine at [facility] [address] [place] [address] Rosy Arredondo, PAOksana Type 1 diabetes mellitus during in third trimester (Primary Dx) 05/17/2025Telephone Maternal- Medicine at [facility] [address] [facility] [place] [address] Debby Garcia, BRADNT 05/17/20251979Ainbem31/05/2025Telephone Maternal- Medicine at [facility] [address] [place] [address] Katie Orozco LD 05/13/2025 8:33 AM EST - 05/13/2025 11:59 PM ESTHospital Encounter [facility] US Imaging [address] [place] [address] Type 1 diabetes mellitus during in second trimester Discharge Disposition: Home05/13/2025Orders Only Maternal- Medicine at [facility] [address] [place] [address] Becca Natarajan, BRANDT Type 1 diabetes mellitus during in second trimester (Primary Dx) 05/13/20252763Pxkmcm38/02/2025Orders Only Maternal- Medicine at [facility] [address] [facility] [place] [address] Ivory Quinones MD 05/10/2025Orders Only Maternal- Medicine at [facility] [address] [place] [address] Clarita Mchugh, DIDACTIC PROGRAM IN DIETETICS DIRECTOR 05/07/2025Telephone Maternal- Medicine at [facility] [address] [facility] [place] [address] Clarita Mchugh, DIDACTIC PROGRAM IN DIETETICS DIRECTOR 05/05/2025Telephone Maternal- Medicine at [facility] [address] [place] [address] Yue Bullock RN 05/04/2025Telephone Maternal- Medicine at [facility] [address] [facility] [place] [address] Daniel Walker 05/04/2025Orders Only Maternal- Medicine at [facility] [address] [facility] [place] [address] Rosy Arredondo PA-C 05/04/2025Orders Only [facility] - Labor [address] [place] [address] Rosy Arredondo PA-C 05/03/2025Orders Only Maternal- Medicine at [facility] [address] [place] [address] Debby Garcia, BRANDT 04/27/2025Documentation Maternal- Medicine at [facility] [address] [place] [address] Yue Bullock, BRANDT 04/26/2025Telephone Maternal- Medicine at [facility] [address] [place] [address] Yue Bullock, BRANDT 04/26/2025Remote Patient Monitoring Maternal- Medicine at [facility] [address] [place] [address] Ivory Quinones MD Type 1 diabetes mellitus during in second trimester [O24.012] (Primary Dx)04/20/2025 12:29 PM EST - 04/22/2025 2:20 PM ESTHospital Encounter [facility] - GEN 3 Antepartum [address] [place] [address] Criselda Green, Uncontrolled type 1 diabetes mellitus with hyperglycemia, with long-term current use of insulin [place] Discharge Disposition: Left Against Medical Advice or Discontinued Care 04/20/2025 10:30 AM ESTTelemedicine Maternal- Medicine at [facility] [address] [place] [address] Rosy Arredondo, PASocoC Type 1 diabetes mellitus during in second trimester (Primary Dx) 04/20/2025Orders Only Maternal- Medicine at [facility] [address] [place] [address] Clarita Mchugh CMA 04/20/20259174Abpftf27/07/2025 1:53 PM EST - 04/16/2025 11:59 PM ESTHospital Encounter [facility] - Cardiovascular [address] [place] [address] Type 1 diabetes mellitus complicating in second trimester, antepartum Discharge Disposition: Home04/16/2025Results Follow-Up Maternal- Medicine at [facility] [address] [place] [address] Georgiana Esteban MD Echo complete W/O /06/3563Efdmcl55/06/2025Orders Only Maternal- Medicine at [facility] [address] [place] [address] Katharine Howard, RESEARCH ADMINISTRATOR Type 1 diabetes mellitus during in second trimester (Primary Dx) 04/14/2025 8:00 AM EST - 04/14/2025 11:59 PM ESTHospital Encounter [facility] US Imaging [address] [place] [address] Encounter for other screening follow-up Discharge Disposition: Home04/12/2025 10:00 AM ESTTelemedicine Maternal- Medicine at [facility] [address] [place] [address] Poncho Jeffrey MD Type 1 diabetes mellitus during in second trimester (Primary Dx); Type 1 diabetes mellitus during in first agnbqclbg75/03/2025Travel 04/08/2025 1:00 PM EDTTelemedicine Maternal- Medicine at [facility] [address] [place] [address] Georgiana Esteban MD 22 weeks gestation of (Primary Dx); Type 1 diabetes mellitus complicating in second trimester, antepartum; Asthma complicating in second /30/3364Mjnzsk56/29/2025 Telephone Maternal- Medicine at [facility] [address] [place] [address] Carolann Urbina RN 04/06/2025Telephone Maternal- Medicine at [facility] [address] [place] [address] Carolann Urbina, RN 04/05/2025Orders Only Maternal- Medicine at [facility] [address] [place] [address] Clarita Mchugh CMA 03/29/2025 10:30 AM EDTTelemedicine Maternal- Medicine at [facility] [address] [place] [address] Rosy Arredondo PA-C Type 1 diabetes mellitus during in second trimester (Primary Dx) 03/29/20251576Ipbasx46/20/2025Orders Only Maternal- Medicine at [facility] [address] [facility] [place] [address] Lula Fernandez, RN 03/29/2025Orders Only Maternal- Medicine at [facility] [address] [facility] [place] [address] Debby Garcia, BRANDT 03/24/2025Telephone Maternal- Medicine at [facility] [address] [facility] [place] [address] Maritza Milian 03/17/2025Telephone Maternal- Medicine at [facility] [address] [place] [address] Maritza Milian 03/16/2025 7:57 AM EDT - 03/16/2025 11:59 PM EDTHospital Encounter [facility] - Ultrasound [address] [place] [address] Type 1 diabetes mellitus during in first trimester Discharge Disposition: Home03/15/2025 3:30 PM EDTTelemedicine Maternal- Medicine at [facility] [address] [place] [address] Rosy Arerdondo PA-C Type 1 diabetes mellitus during in second trimester (Primary Dx) 03/15/2025Telephone Maternal- Medicine at [facility] [address] [facility] [place] [address] Debby Garcia, BRANDT 03/15/20253386Wszrtz34/06/2025Orders Only Maternal- Medicine at [facility] [address] [facility] [place] [address] Debby Garcia, BRANDT 03/09/2025Orders Only Maternal- Medicine at [facility] [address] [facility] [place] [address] Yahaira Miller MD 03/09/2025Orders Only Maternal- Medicine at [facility] [address] [facility] [place] [address] Yue Bullock RN 03/09/2025Remote Patient Monitoring Maternal- Medicine at [facility] [address] [place] [address] Yahaira Miller MD Pre-existing type 1 diabetes mellitus with hyperglycemia during in second trimester ([facility] (Primary Dx)03/08/2025Orders Only Maternal- Medicine at [facility] [address] [facility] [address] Clarita Mchugh, YARIEL 03/03/2025 10:30 AM EDTTelemedicine Maternal- Medicine at [facility] [address] [facility] [place] [address] Carin Mathur, GLASS POLISHER-METALLURGICAL ENGINEER Uncontrolled type 1 diabetes mellitus with hyperglycemia, with long-term current use of insulin ([facility]) (Primary Dx)03/03/2025Telephone Maternal- Medicine at [facility] [address] [facility] [place] [address] Lula Fernandez RN 03/03/20251000Iksiia00/24/2025Orders Only Maternal- Medicine at [facility] [address] [place] [address] Lula Fernandez RN from Last 3 Months Immunizations ImmunizationAdministration [...] (1 standard drink = 0.6 oz pure alcohol)Giraffe FriendGamerDNA UtilitiesAnswerDate RecordedIn the past 12 months has the General Specific, gas, oil, or water [employer] threatened to shut off services in your [...] care, and heating?Not hard at all02/17/2025PHQ-2AnswerDate RecordedTotal Chbim59506/12/2023[facility] [place] [facility] - Occupational Stress QuestionnaireAnswerDate [...] and direction in my life.Agree02/17/2025Estimated Date of DjtmmuesEneupwquTnv34/27/2026ased on last menstrual period of 10/30/2024Sex and Gender InformationValueDate RecordedSex Assigned at RgtfzKtzbcu66/22/2025 1:51 AM EDTLegal SexFemale 01/13/2015 11:58 AM EDTGender ZsebjhdoWdkumm75/22/2025 1:51 AM EDTSexual OrientationNot on file Last Filed Vital Signs Vital SignReadingTime TakenCommentsBlood Yyafkocf457/6004/22/2025 8:44 AM EST Mbcss505104/22/2025 8:44 AM KDOCbdsvhyxdcm70.7 ??C (98.1 ??F)04/22/2025 8:44 AM ESTRespiratory Zikm128506/22/2024 8:44 AM ESTOxygen Iveuteoorf71%04/21/2025 7:24 PM ESTInhaled Oxygen Concentration--Gutbmz16.1 kg (161 lb 2.5 oz)04/20/2025 12:30 PM WAAHapavk604.3 cm (4' 9.99 )02/17/2025 6:00 PM EDTBody Mass Index33.69 02/17/2025 6:00 PM EDT Plan of Treatment DateTypeDepartmentCare Team (Latest Contact Info)Oytjyalxxhu21/02/2026 3:30 PM ESTAppointment [facility] US Imaging [address] [place] [address] Health MaintenanceDue DateLast DoneCommentsDiabetic Ophthalmology Exam2001 Diabetic Foot Exam2019Chlamydia Cpifvrpeh892Adult BMI Follow Up Plan/epression Jhctximco53/4COVID- 19 Vaccine ( season)/11/2021, 03/21/2021, 1RSV ( or age 60+ yrs) (1 - Risk 1-dose series)6Adult BMI Blwdjvdph08/04/2025Tobacco Cusronkts49/Pap Smear 809/02/2025, 2DTaP,Tdap and Td Vaccines (8 - Td or Tdap) /, 03/02/2013, 03/18/2008, Additional history existsInfluenza KlnffqhAngfxsfuk69/08/2025, 03/18/2024, 06/12/2023, Additional history exists Medical Devices ImplantedTypeAreaManufacturerDevice IdentifierShelf Expiration DateModel / Serial / LotNexplanonDescription: control implant in right upper arm Procedures Procedure NamePriorityDate/TimeAssociated DiagnosisCommentsUS [facility] OB FOLLOW-UP, 1 VBKBAAsnumuo35/04/2025 9:12 AM EST Type 1 diabetes mellitus during in second trimester EXTRA TUBES SST HVRQhlopud13/13/2025 9:13 AM EST EXTRA TUBES LAVENDER SYFIpktmbe42/13/2025 9:13 AM EST EXTRA TUBES PST ONPBelhxqg52/13/2025 9:13 AM EST EXTRA OKFUTNsqqtjf28/13/2025 9:13 AM EST BEDSIDE HVRQUOOLywzrgp58/12/2025 7:17 PM EST BEDSIDE XKLDLJTGaudgrh83/12/2025 3:56 PM EST BEDSIDE QVCCIMZZqriirm99/12/2025 3:41 PM EST BEDSIDE ALGXNEQIehfmol90/12/2025 6:13 AM EST BEDSIDE BAENHIMLadtwxn26/11/2025 7:37 PM EST BEDSIDE EZQASVEGcuhwum70/11/2025 7:18 PM EST REPEATED LEPJTDovxtul40/11/2025 1:14 PM EST T4, FREEAdd-On04/20/2025 1:14 PM EST TSHAdd-On04/20/2025 1:14 PM EST ACETONE,(BETAHYDROXYBUTYRATE, KETONE) QUANTITATIVE BFYGPCmoohvm70/11/2025 1:14 PM EST CBC WITH AUTO KKZWESLCLKHFZeifubd03/11/2025 1:14 PM EST COMPREHENSIVE METABOLIC RNKYTDcpkzve33/11/2025 1:14 PM EST ECHO COMPLETE WO IUEZKEPXPqbvofk73/07/2025 2:29 PM EST Type 1 diabetes mellitus complicating in second trimester, antepartum US [facility] OB FOLLOW-UP, 1 DUPDTZejsjdf94/05/2025 9:34 AM EST Encounter for other screening follow-up ALPHA BNRVKOXTALWYhfrgee94/30/2025 10:01 AM EDT Encounter for supervision of normal , unspecified, second trimester B-TYPE NATRIURETIC VNSKDUKRihuclq71/30/2025 10:01 AM EDT Type 1 diabetes mellitus during in second trimester EXTRA TUBES LAVENDER IFKPqlvqii65/30/2025 9:56 AM EDT Encounter for supervision of normal , unspecified, second trimester Uncontrolled type 1 diabetes mellitus with hyperglycemia, with long-term current use of insulin [place] Type 1 diabetes mellitus during in second trimester EXTRA TIISTAjsgmyb18/30/2025 9:56 AM EDT Encounter for supervision of normal , unspecified, second trimester Uncontrolled type 1 diabetes mellitus with hyperglycemia, with long-term current use of insulin ([facility] Type 1 diabetes mellitus during in second trimester HEMOGLOBIN M6AZqadsum25/30/2025 9:56 AM EDT Uncontrolled type 1 diabetes mellitus with hyperglycemia, with long-term current use of insulin ([facility] [facility] COMPREHENSIVE ANATOMIC XDFIUBMfmvegt17/07/2025 9:52 AM EDT Type 1 diabetes mellitus during in first trimester PAP BRAFLJvvotsz26/24/2022 10:35 AM EDT Cervical smear, as part of routine gynecological examination CHLAMYDIA/GC BY PCR OMAIRA LYXBVqapqgi23/11/2022 6:33 PM EDT Menorrhagia with irregular cycle Metrorrhagia DUB (dysfunctional uterine bleeding) from Last 3 Months or Most Recently Relevant to Health Maintenance Results * [facility] OB FOLLOW-UP, 1 FETUS (05/13/2025 9:12 AM EST) Only the most recent of3 resultswithin the time period is included. Anatomical RegionLateralityModalityOB-GYNUltrasoundSpecimen (Source)Anatomical Location / LateralityCollection Method / VolumeCollection TimeReceived Time 05/13/2025 8:44 AM EST Narrative 05/13/2025 10:52 AM EST NAME: ??DARREN ART : 2000 SEX: F Accession Number: [id number] ORDERING PHYSICIAN: IVORY QUINONES REFERRING PHYSICIAN: BRYANT PULLIAM Coding Procedures ? 37648: Ultrasound, uterus, real time with image documentation, [...] (oz) ? 10 oz EFW by: ?Hadlock (HPH-TM-RY-FL) Extended Tibia ??45.1 mm 27w 4d 40% Randolph Cleaner Wall ? 2.4 mm CM ? 6.4 mm [...] MVP measures 4.6 cm. Recommendations Please see [facility] recommendations from prior clinical and/or ultrasound [...] ART : 2000 SEX: F Accession Number: [id number] ORDERING PHYSICIAN: IVORY QUINONES REFERRING PHYSICIAN: BRYANT PULLIAM Coding Procedures 99113: Ultrasound, uterus, real time with image documentation, [...] EFW (oz) 10 oz EFW by: Hadlock (NMN-KM-KH-FL) Extended Tibia 45.1 mm 27w 4d 40% Randolph Cleaner Wall 2.4 mm CM 6.4 mm 42% Nicolaides [...] MVP measures 4.6 cm. Recommendations Please see [facility] recommendations from prior clinical and/or ultrasoundreport documentation. The patient is scheduled in four weeks for follow up growth ultrasound. Subsequent follow up or other follow up as clinically determined byprimary OB provider unless otherwise specified by M. Results forwarded to ordering provider so they can follow up with thepatient as necessary. Authorizing ProviderResult TypeResult StatusIvory AMES ORDERABLESFinal Result * SST TOP (04/22/2025 9:13 AM EST)ComponentValueRef RangeTest MethodAnalysis TimePerformed AtPathologist SignatureExtra TubeAuto Uvyyecnw23/13/2025 11:01 AM [facility] LABORATORYSpecimen (Source)Anatomical Location / LateralityCollection Method / VolumeCollection TimeReceived TimeBloodVenous blood / Mtdvlnk8004/22/2025 9:13 AM EST04/22/2025 10:09 AM EST Narrative Authorizing ProviderResult TypeResult StatusCriselda SHAH BLOOD ORDERABLESFinal ResultPerforming OrganizationAddressCity/State/ZIP CodePhone Number [facility] [address] [place] [address], [place] [phone] * Lavender Top (04/22/2025 9:13 AM EST) Only the most recent of2 resultswithin the time period is included. ComponentValueRef RangeTest MethodAnalysis TimePerformed AtPathologist Signature Extra TubeAuto Kopkjfoh65/13/2025 11:01 AM [facility] LABORATORYSpecimen (Source)Anatomical Location / LateralityCollection Method / VolumeCollection TimeReceived TimeBloodVenous blood / Jmioroa6504/22/2025 9:13 AM EST04/22/2025 10:09 AM EST Narrative Authorizing ProviderResult TypeResult StatusCriselda Green [facility] BLOOD ORDERABLESFinal ResultPerforming OrganizationAddressCity/State/ZIP CodePhone Number [facility] [address] [place] [address], * [facility] TOP (04/22/2025 9:13 AM EST)ComponentValueRef RangeTest MethodAnalysis TimePerformed AtPathologist SignatureExtra TubeAut Wcvaozyz74/13/2025 11:01 AM [facility] LABORATORYSpecimen (Source)Anatomical Location / LateralityCollection Method / VolumeCollection TimeReceived TimeBloodVenous blood / Xhhgqyk6704/22/2025 9:13 AM EST04/22/2025 10:09 AM EST Narrative Authorizing ProviderResult TypeResult StatusCriselda Green [facility] BLOOD ORDERABLESFinal ResultPerforming OrganizationAddressCity/State/ZIP CodePhone Number [facility] [address] [place] [address], * (ABNORMAL) Bedside Glucose *Place/Obtain serum glucose if >500 per glucometer. (04/21/2025 7:17 PM EST) Only the most recent of6 resultswithin the time period is included. ComponentValueRef RangeTest MethodAnalysis TimePerformed AtPathologist Signature Bedside Glucose (POC)152(H)65 - 99 mg/dL04/21/2025 7:22 PM [facility] LABORATORYSpecimen (Source)Anatomical Location / LateralityCollection Method / VolumeCollection TimeReceived Timearterial/qqbirwoay46/12/2025 7:17 PM EST 04/21/2025 7:22 PM EST Narrative Authorizing ProviderResult TypeResult StatusJessica Jeison Lafyatis DOPOINT OF CARE TEST ORDERABLESFinal ResultPerforming OrganizationAddressCity/State/ZIP CodePhone Number [facility] [address] [place] [address], * ABO Rh Repeat (04/20/2025 1:14 PM EST)ComponentValueRef RangeTest Method Analysis TimePerformed AtPathologist GhrkqiydsEFQW31/13/2025 10:32 AM ESTTTH BB - DSFICVUGYSjuscbkb97/13/2025 10:32 AM ESTTTH BB - GOPALCHARLOTTESpecimen (Source) Anatomical Location / LateralityCollection Method / VolumeCollection Time Received TimeBloodVenous blood / UnknownVenipuncture / Pekglag7804/20/2025 1:14 PM EST04/20/2025 1:33 PM EST Narrative Authorizing ProviderResult TypeResult StatusIsajulian Leary MDBLOOD BANK TEST ORDERABLESFinal ResultPerforming OrganizationAddressCity/State/ZIP CodePhone Number [facility] [address] [place] [address], [place] * (ABNORMAL) CBC auto differential (04/20/2025 1:14 PM EST)ComponentValueRef RangeTest MethodAnalysis TimePerformed AtPathologist MieboymrqHBR45.7(H)4 - 11 X10^9/L106/20/2024 1:50 PM [facility] LABORATORYRBC Count3.72 (L)3.8 - 5.2 X10^12/L106/20/2024 1:50 PM [facility] Kculvelapi08.3(L)11.7 - 15.5 g/dL04/20/2025 1:50 PM [facility] CGIRADXKSODsvesdxwtt92.7(L)35 - 47 %04/20/2025 1:50 PM [facility] IIAHUHJDCRCBX2768 - 100 fL04/20/2025 1:50 PM [facility] HPCOGTFPUKJGL29.327 - 34 pg04/20/2025 1:50 PM [facility] CNYQRPIDPDXPYG06.532 - 36 g/dL04/20/2025 1:50 PM [facility] WDOGKXIUQBPXU39.511.5 - 15 %04/20/2025 1:50 PM [facility] LABORATORYPlatelet Dfynm620073 - 450 X10^9/L106/20/2024 1:50 PM [facility] LABORATORYMPV8.97 - 12 fL04/20/2025 1:50 PM [facility] LABORATORYNeutrophils %80.6%04/20/2025 1:50 PM [facility] LABORATORYLymphocytes %12.7%04/20/2025 1:50 PM [facility] LABORATORYMonocytes %5.6%04/20/2025 1:50 PM [facility] LABORATORYEosinophils %0.7%04/20/2025 1:50 PM [facility] LABORATORYBasophils %0.4%04/20/2025 1:50 PM [facility] LABORATORYNeutrophils Absolute (A)10.2(H)1.5 - 6.6 X10^9/L 04/20/2025 1:50 PM [facility] LABORATORYLymphocytes Absolute 1.61.0 - 3.5 X10^9/L106/20/2024 1:50 PM [facility] Monocytes Absolute0.70.0 - 0.9 X10^9/L106/20/2024 1:50 PM [facility] LABORATORYEosinophils Absolute0.10.0 - 0.4 X10^9/L106/20/2024 1:50 PM [facility] LABORATORYBasophils Absolute0.10.0 - 0.2 X10^9/L 04/20/2025 1:50 PM [facility] LABORATORYDifferential Type AUTOMATED LIYJYARYUUCQ71/11/2025 1:50 PM [facility] LABORATORYSpecimen (Source)Anatomical Location / LateralityCollection Method / VolumeCollection TimeReceived TimeBloodVenous blood / UnknownVenipuncture / Ohnauef3404/20/2025 1:14 PM EST04/20/2025 1:33 PM EST Narrative Authorizing ProviderResult TypeResult StatusCristofer Leary MDLAB BLOOD ORDERABLESFinal ResultPerforming OrganizationAddressCity/State/ZIP CodePhone Number [facility] [address] [place] [address], * Acetone, (BetaHydroxybutyrate, Ketone) quantitative, serum (04/20/2025 1:14 PM EST)ComponentValueRef RangeTest MethodAnalysis TimePerformed AtPathologist SignatureBETAHYDROXYBUTYRATE0.100.02 - 0.27 mmol/L106/20/2024 2:15 PM [facility] LABORATORYSpecimen (Source)Anatomical Location / Laterality Collection Method / VolumeCollection TimeReceived TimeBloodVenous blood / UnknownVenipuncture / Vpsccld6004/20/2025 1:14 PM EST04/20/2025 1:32 PM EST Narrative Authorizing ProviderResult TypeResult StatusCristofer Leary MDLAB BLOOD ORDERABLESFinal ResultPerforming OrganizationAddressCity/State/ZIP CodePhone Number [facility] [address] [place] [address], * TSH (04/20/2025 1:14 PM EST)ComponentValueRef RangeTest MethodAnalysis Time Performed AtPathologist SignatureTSH0.750.49 - 4.67 uIU/mL04/21/2025 9:43 AM [facility] LABORATORYSpecimen (Source)Anatomical Location / LateralityCollection Method / VolumeCollection TimeReceived TimeBloodVenous blood / UnknownVenipuncture / Vjevgmw3804/20/2025 1:14 PM EST04/20/2025 1:32 PM EST Narrative Authorizing ProviderResult TypeResult StatusCristofer Leary MDLAB BLOOD ORDERABLESFinal ResultPerforming OrganizationAddressCity/State/ZIP CodePhone Number [facility] [address] [place] [address], * T4, free (04/20/2025 1:14 PM EST)ComponentValueRef RangeTest MethodAnalysis TimePerformed AtPathologist SignatureFREE T40.640.61 - 1.60 ng/dL04/21/2025 9:48 AM [facility] LABORATORYSpecimen (Source)Anatomical Location / LateralityCollection Method / VolumeCollection TimeReceived Time BloodVenous blood / UnknownVenipuncture / Vbyhwer3404/20/2025 1:14 PM EST 04/20/2025 1:32 PM EST Narrative Authorizing ProviderResult TypeResult StatusIsaac Sapphire PAIGE BLOOD ORDERABLESFinal ResultPerforming OrganizationAddressCity/State/ZIP CodePhone Number [facility] [address] [place] [address], * (ABNORMAL) Comprehensive metabolic panel (04/20/2025 1:14 PM EST)Component ValueRef RangeTest MethodAnalysis TimePerformed AtPathologist SignatureSODIUM 675733 - 146 mmol/L106/20/2024 2:15 PM [facility] POTASSIUM3.93.5 - 5.0 mmol/L106/20/2024 2:15 PM [facility] JQZWKUQREFRBRKRHBB42286 - 109 mmol/L106/20/2024 2:15 PM [facility] LABORATORYCARBON QKHCDFO1426 - 32 mmol/L106/20/2024 2:15 PM [facility] LABORATORYANION GAP75 - 15 mmol/L106/20/2024 2:15 PM [facility] LABORATORYBLOOD UREA MBGVYMOE35 - 23 mg/dL04/20/2025 2:15 PM [facility] LABORATORYCREATININE0.620.40 - 1.00 mg/dL 04/20/2025 2:15 PM [facility] LABORATORYComment:METHOD TRACEABLE TO IDMS IENVAEAYQEZQGLG366(H)65 - 99 mg/dL04/20/2025 2:15 PM EST [facility] LABORATORYCALCIUM8.58.5 - 10.5 mg/dL04/20/2025 2:15 PM [facility] LABORATORYTOTAL PROTEIN6.16.0 - 8.0 g/dL 04/20/2025 2:15 PM [facility] LABORATORYALBUMIN3.1(L)3.2 - 5.3 g/dL04/20/2025 2:15 PM [facility] LABORATORYALKALINE ZAOUFHMHLXG5936 - 130 U/L106/20/2024 2:15 PM [facility] KJKNZHCIJJTDS87<=41 U/L106/20/2024 2:15 PM [facility] FMVKJXOUZPQSE47(H)<=31 U/L106/20/2024 2:15 PM [facility] LABORATORYBILIRUBIN,TOTAL0.2(L)0.3 - 1.2 mg/dL04/20/2025 2:15 PM [facility] LABORATORYEGFR Non-Race Dependent>90>=60 ml/min/1.73sq.m 04/20/2025 2:15 PM [facility] LABORATORYComment: Reported eGFR is based on the CKD-EPI 2020 equation that does not use a race coefficient. Specimen (Source)Anatomical Location / LateralityCollection Method / Volume Collection TimeReceived TimeBloodVenous blood / UnknownVenipuncture / Unknown 04/20/2025 1:14 PM EST04/20/2025 1:32 PM EST Narrative Authorizing ProviderResult TypeResult StatusIsaac Sapphire PAIGE BLOOD ORDERABLESFinal ResultPerforming OrganizationAddressCity/State/ZIP CodePhone Number [facility] [address] [place] [address], * Echo complete W/O contrast (04/16/2025 2:29 PM EST)ComponentValueRef RangeTest MethodAnalysis TimePerformed AtPathologist SignatureLVOT stroke sywsqa48.88ml CEGHSFYPN9048 - 44 %XCELERALVIDd4.91obNZBKSNKHJLIw5.58wjWPUQYYWEGU9.900.6 - 1.1 cmXCELERAPW0.900.6 - 1.1 cmXCELERALVOT diameter1.83puZSPMHIGRBF74.20cm/s XCELERAMV TDI E' (medial)8.27cm/sXCELERALA Volume Index13.7mL/s2QJBSFPHF/A ratio1.32XCELERAE wave deceleration lohd226.00msecXCELERAMV Peak E Vss280.00 cm/sXCELERAMV Peak A Vel78.60cm/sXCELERALA size3.20cmXCELERAAortic root2.50cm XCELERALA hjaxyp61.13ho1FHJZJEDGQ diastolic dimension (basal)27.0mmXCELERARVID d2.1wsICTHLZWHAOQK3.38cmXCELERAAV peak awd208.00cm/sXCELERALVOT peak vel1.16 m/sXCELERAAV VTI39.00cmXCELERALVOT peak VTI26.30cmXCELERAAV mean gradient8.00 mmHgXCELERAAV peak qkwxgoxv31.75mmHgXCELERAAV valve area1.36XCELERAValve area - Index0.8XCELERAMV pressure 1/2 time53.00msXCELERAMV valve area p 1/2 method 4.77gx4XORNBLPKX mean gradient3.00mmHgXCELERAPV peak gradient4.84mmHgXCELERALV ESV A2C20.70mLXCELERALV ESV A4C22.20mLXCELERALV RWT 2D45.00XCELERAAV Velocity Ratio0.67XCELERALeft Ventricle Oeuo062.948068710807165aSZLQWMK Interventricular Septum Diastolic Thickness by 3M4ldRYOJLCVHlj. RA pressure3 mmHgXCELERARA area9.4nz3SXLMOQUDbjbftqmgl RegionLateralityModalityChestN/A UltrasoundSpecimen (Source)Anatomical Location / LateralityCollection Method [...] is normal. Authorizing ProviderResult TypeResult StatusGeorgiana Esteban [facility] [place]CHO ORDERABLESFinal Result * (ABNORMAL) Alpha fetoprotein (04/08/2025 10:01 AM EDT)ComponentValueRef Range Test MethodAnalysis TimePerformed AtPathologist SignatureALPHA DSATPXTTNEA32.3 (H)<=9.9 ng/mL04/08/2025 1:25 PM [facility] Specimen (Source)Anatomical Location / LateralityCollection Method / Volume Collection TimeReceived TimeBloodVenous blood / UnknownVenipuncture / Unknown 04/08/2025 10:01 AM EDT1 10:01 AM EDT Narrative Authorizing ProviderResult TypeResult StatusAmy L Maria G PAL[place] BLOOD ORDERABLES Final ResultPerforming OrganizationAddressCity/State/ZIP CodePhone Number [facility] [address] [place] [address], * B-type natriuretic peptide (04/08/2025 10:01 AM EDT)ComponentValueRef Range Test MethodAnalysis TimePerformed AtPathologist PujusraxlQSC99<=100 pg/mL 04/08/2025 11:24 AM EDTPROMEDUNIVERSITY HOSPITALpecimen (Source) Anatomical Location / LateralityCollection Method / VolumeCollection Time Received TimeBloodVenous blood / UnknownVenipuncture / Jfcnyse3004/08/2025 10:01 AM EDT1 10:01 AM EDT Narrative Authorizing ProviderResult TypeResult StatusColleen E Fidenciogretchen PA-CLAB BLOOD ORDERABLESFinal ResultPerforming OrganizationAddressCity/State/ZIP CodePhone Number [facility] [address] [place] [address], * Hemoglobin A1c (04/08/2025 9:56 AM EDT)ComponentValueRef RangeTest Method Analysis TimePerformed AtPathologist SignatureHEMOGLOBIN A1C5.14.4 - 5.6 % 04/08/2025 1:25 PM [facility] LABORATORYComment: ?ADA Guidelines ?Result ?HgbA1c ? Normal : ? less than 5.7 % ? Prediabetes : ?5.7 % ??to 6.4 % Diabetes : > 6.4 % ?Use with caution in patients with abnormal hemoglobin variants as ??the half-life of red blood cells and in vivo glycation rates are ??affected. EST. AVERAGE DMQUZEM499rt/dL04/08/2025 1:25 PM [facility] LABORATORYSpecimen (Source)Anatomical Location / LateralityCollection Method / VolumeCollection TimeReceived TimeBloodVenous blood / Hkwgmyz4404/08/2025 9:56 AM EDT1 10:14 AM EDT Narrative Authorizing ProviderResult TypeResult StatusCarin Mathur [facility] BLOOD ORDERABLESFinal ResultPerforming OrganizationAddressCity/State/ZIP CodePhone Number [facility] [address] [place] [address], * Pap Smear (04/02/2022 10:35 AM EDT)Specimen (Source)Anatomical Location / LateralityCollection Method / VolumeCollection TimeReceived Time04/02/2022 10:35 AM EDT1 10:37 AM EDT Narrative COPATH - 04/12/2022 12:17 PM EDT [facility] ? [address] [place] [address] ? [place] [address] ? Gynecologic Cytology Consultation ? Patient Name:DALIA BANKS:2000 (Age: 22)Gender:FTaken:04/02/2022eported:04/12/2022hysician(s):PHILLIP Pink ([phone])Copy To: Rec. #:[id number]: #[id number] Final Cytologic Interpretation ThinPrep Pap Test (Cervical): Satisfactory for evaluation. A transformation zone component is present. NEGATIVE FOR INTRAEPITHELIAL LESION OR MALIGNANCY. ?? jja/04/12/2022 Interpretation performed at [facility], [address] [place] [address] Ave, [place] [address], License number: [id number]. Electronically Signed Out By ?JORGE Olson(ASCP) Date of Last Menstrual Period: ? 02/28/22 Other Clinical Conditions: Z01.419 Carrot Buncher exam wo/abn findings Source of Specimen ??ThinPrep Pap Test (Cervical) ? Thin Prep Pap (TRANSLITERATOR) Fee Code(s): ?? G0145 Authorizing ProviderResult TypeResult StatusCayla Olivas GLASS POLISHER-METALLURGICAL ENGINEER PATHOLOGY/CYTOLOGY ORDERABLESFinal ResultPerforming OrganizationAddress City/State/ZIP CodePhone Number [facility] * Chlamydia/GC by PCR Omaira Swab (03/20/2022 6:33 PM EDT)ComponentValueRef Range Test MethodAnalysis TimePerformed AtPathologist SignatureSpecimen sourceCERVIX 03/20/2022 9:54 PM [facility] LABComment:Corrected on 03/20 AT 2154: Previously reported as SWABChlamydia DNA PCRNegativeNegative^Negative 03/21/2022 12:54 PM [facility] LABComment: ? Chlamydia trachomatis not detected by nucleic acid amplification. This does not exclude the possibility of infection because results are dependent on adequate specimen collection. ? Gonorrhea DNA PCRNegativeNegative^Vjzvmikf26/12/2022 12:54 PM [facility] LABComment: ? Neisseria gonorrhoeae not detected by nucleic acid amplification. This does not exclude the possibility of infection because results are dependent on adequate specimen collection. ? Specimen (Source)Anatomical Location / LateralityCollection Method / Volume Collection TimeReceived BkwrANFY06/11/2022 6:33 PM EDT1 9:50 PM EDT Narrative Authorizing ProviderResult TypeResult StatusComelissa Seaman MDMICROBIOLOGY - GENERAL ORDERABLESEdited Result - FinalPerforming OrganizationAddress City/State/ZIP CodePhone Number [facility] [address], [address] [place] [address] from Last 3 Months or Most Recently Relevant to Health Maintenance Insurance Advance Directives * Full Code (Latest Code Status on File) Date ActivatedDate InactivatedComments02/17/2025 6:35 PM02/22/2025 6:48 PM * Full Code Date ActivatedDate BdajcsezqilGelwidcr68/27/2021 4:55 PM06/08/2021 4:33 PM * Full Code Date ActivatedDate InactivatedComments01/07/2018 6:44 AM01/07/2018 2:17 PM * Full Code Date ActivatedDate InactivatedComments10/23/2016 11:27 AM10/24/2016 12:42 PM * Full Code Date ActivatedDate InactivatedComments08/01/2016 12:52 AM08/01/2016 4:47 PM Care Teams Team MemberRelationshipSpecialtyStart DateEnd Date Dru Rodriguez DO [address] [place] [address] [facility]01/01/17
--- OUTSIDE RECORDS SUMMARY | 2025-05-28 14:41 | XMS_ITS | Clinical Summary ---
Author Organization [facility] Healthcare Address [address] [place] [address] Care Team Providers Care Rate Setter Name Role Phone Joaquín Dillon DO Primary Care Provider [phone] Joaquín Dillon DO Unavailable [phone] Allergies Active AllergyReactionsCriticalityNoted DateCommentsAmoxicillinAnaphylaxisHigh 05/23/2016 Mouth irritation GhewmnhgxeyHjrltdbnfgfStrm90/14/2016 Has since taken without reaction Medications MedicationSigDispense QuantityRefillsLast FilledStart DateEnd DateStatus Continuous Blood Gluc Transmit (Dexcom G6 transmitter) [facility] [place] Indications:Type 1 diabetes mellitus without complication (HCC)Inject 1 each under the skin every 3 (three) months. Use as instructed 1 each 3Active insulin glargine (Lantus SoloStar) 100 UNIT/ML pen Indications:Type 1 diabetes mellitus without complication (HCC)inject 22 units subcutaneously once daily 3 mL 4Active Insulin Disposable Pump (Omnipod 5 OalP8O9 Pods Gen 5) misc Indications:Type 1 diabetes mellitus without complication (HCC)Inject 1 each under the skin every 3 (three) days CHANGE POD EVERY 3 DAYS DIRECTED 30 each 5Active HumaLOG 100 UNIT/ML solution Indications:Type 1 diabetes mellitus without complication (HCC)USE PER INSULIN PUMP INSTRUCTION MAX OF 80 UNITS DAILY 30 mL 5Active Vit w/Qd-Saazytita-NW (PNV PO) Take by mouthActive Acetone, Urine, Test (Ketone Test) strip check urine FOR ketones with blood glucose greater THAN 250 mg/dLActive aspirin 81 MG EC tablet Take 81 mg by mouth in the morning.5Active cholecalciferol (Vitamin D-3) 1.25 MG (05274 UT) capsule every week5Active Continuous Glucose Sensor (Dexcom G7 Sensor) misc USE WITH OMNIPOD 5 TO MANAGE BLOOD SUGARS AND CHANGE EVERY 10 DAYS01/21/2025 Active doxylamine (Unisom) 25 MG tablet Take 25 mg by mouth 4 (four) times a day as egrsue7401/08/2025tive Baqsimi One Pack 3 MG/DOSE nasal powder Use to treat unresponsive wjzencfwwswj10/11/2025tive OneTouch Ultra Test test strip USE 1 STRIP TO CHECK GLUCOSE 4 TIMES DAILY10/14/2024tive ondansetron ODT (Zofran-ODT) 4 MG disintegrating tablet DISSOLVE 1 TABLET UNDER THE TONGUE EVERY 8 HOURS NEEDED FOR NAUSEA for up to 10 doses01/08/2025tive promethazine (Phenergan) 25 MG tablet Take 25 mg by mouth every 6 (six) hours if tbehlt7301/08/2025tive pyridoxine (Vitamin B-6) 100 MG tablet Take 100 mg by mouth in the morning.Active Active Problems ProblemNoted DateDiagnosed DateHypoglycemia associated with ajeylren23/30/2025 Mixed obsessional thoughts and acts4PTSD (post-traumatic stress disorder)09/06/2023Type 1 diabetes mellitus without hizszwhaitlnb82/28/2023 Assessment & Plan (03/11/2024 7:46 PM EDT): [...] they have any problems or questions. Dalia Banks is doing very well and encouraged [...] they have any problems or questions. Dalia Banks is doing very well and encouraged on this. , Instructions given today include: Pump instructions and Dietary education. She is to keep working on counting carbs/portion sizesand will stay with current pump settings. Type 1 diabetes mellitus with hypoglycemia and without coma02/04/2023ulging lumbar disc11/08/2022hronic sqbqtka7411/08/2022Lumbago with sciatica, left side 11/08/20224992Nrhkbjlw18/01/2023iliary ruvakimujl87/01/2023eneralized anxiety /25/2017Panic disorder without eogcqoowqbb22/25/2017Celiac disease in pediatric flijsxp5505/23/2016Mild intermittent pazcpa8905/23/2016Diabetes type 1, xchovamcpm80/18/2011Estimated Date of KdzqssiwXyhofdyuNla00/27/2026ased on last menstrual period of 10/30/2024 Resolved Problems ProblemNoted DateDiagnosed DateResolved DateChronic wkojzulvdniof58/22/2023 08/05/2023lood alohqxt00Hypoglycemia due to type 1 diabetes oarwbffg40Other chronic painRight upper quadrant painiabetic ketoacidosis associated with type 1 diabetes nabkskmp86cute renal egrdxpppgzivp05/11/2017 08/05/2023Mechanical breakdown of insulin pumpType 1 diabetes mellitus with ketoacidosis without coma Encounters DateTypeDepartmentCare NnehGmcgelazquu52/19/2025Telephone [facility] [place] [facility] [address] [place] [address] Bryant Cao, 5Clinisync Result Encounter NOMS External Department Unsolicited Bryant Cao, DO 05/18/2025 2:40 PM ESTRoutine [facility] [place] [phone] Katharine Cummins PA 28 weeks gestation of ([facility]); Type 1 diabetes mellitus during , antepartum ([facility]); Third trimester ([facility])05/18/2025amboo flowsheet [facility] [place] [phone] Katharine Cummins PA 05/14/2025linisync Result Encounter NOMS External Department Unsolicited Bryant Cao, DO 05/12/2025Telephone [facility] [place] [facility] [address] [place] [phone] Nicolasa Bailey MA 04/27/2025 9:40 AM ESTRoutine [facility] [place] [phone] Bryant Cao, Hospital discharge follow-up; Second trimester ([facility]); 25 weeks gestation of ([facility]); UTI breonprc57/18/2025amboo flowsheet [facility] [place] [facility] [address] [place] [phone] Bryant Cao, 04/26/2025Patient Outreach [facility] [place] [address] Patria Woods LPN 04/26/2025Telephone [facility] [place] [facility] [address] [place] [address] Stella Webb MA 04/23/2025Telephone [facility] [place] [facility] [address] [place] [address] Cindi Jacinto LPN 5Clinisync Result Encounter NOMS External Department Unsolicited Bryant Cao, DO 04/14/2025bstract [facility] [place] OBD[facility] [address] [place] [address] Bryant Cao, DO 04/08/2025 1:50 PM EDTRoutine [facility] [place] PORTILLO [address] [place] [address] Katharine Cummins PA Second trimester ([facility]); 22 weeks gestation of ([facility]); Yeast amqxgugfn14/30/2025Patient Outreach [facility] [place] [address] [facility] [place] [address] Aline Dudley, BRANDT 03/30/2025[facility] [address] [place] [phone] Kristopher Calvo, OD 03/25/2025 8:45 AM EDTOffice Visit [facility] [address] [place] [address] Joaquín [place], Routine general medical examination at a health care facility (Primary Dx); Generalized anxiety disorder; Celiac disease in pediatric patient ([facility]); Mild intermittent asthma, unspecified whether complicated ([facility])03/25/2025Orders Only [facility] [address] [place] [phone] Joaquín [place], 03/25/2025Telephone [facility] [address] [place] [address] Lesa Boss LPN 5Bamboo flowsheet [facility] [address] [place] [address] Joaquín [place], DO 03/25/20257321Nupjri34/14/2025 8:50 AM [place]out[place] [address] Bryant Cao, DO Second trimester ([facility]); 20 weeks gestation of ([facility]); Type 1 diabetes mellitus during , antepartum ([facility])03/23/2025 Abstract [facility] [place] [address] Bryant Cao, DO 5Bamboo flowsheet [facility] [place] [address] Bryant Cao, DO 5Clinisync Result Encounter NOMS External Department Unsolicited Bryant Cao, DO 03/08/2025Patient Outreach [facility] [place] [address] [facility] [place] [address] Aline Dudley RN from Last 3 Months Immunizations ImmunizationAdministration DatesNext QdgHWY463978HMyK48/23/2004DTaP, Srieaexwwai65/13/2006,11/24/2002,2001,2001HPV, Quadrivalent 08/27/2013,08/21/2013,04/06/2013,03/02/2013Hep B, Adolescent or Pediatric 11/24/2002,2001,2001HiB, vommsttjqhk46/17/2003,2001,2001 Hib (PRP-T)03/02/2004IPV1,12/20/2005,2001Influenza, injectable, gsxcjkryimaj98/26/2021Influenza, injectable, quadrivalent, preservative free 06/12/2023,05/11/2022Influenza, seasonal, injectable, preservative free 03/17/2025,03/18/2024MMR1,12/20/2005,11/24/2002Meningococcal MCV4P 01/22/2018,03/02/2013PPD Test06/12/2023,06/05/2023,05/18/2022,05/11/2022 Pneumococcal Conjugate PCV 7008/05/2001Polio, Cbhddmcloma46/17/2003,2001 Tdap107/31/2022,03/02/20130353Xtwlwtuap15/21/2023,03/02/2013,03/18/2008,12/20/2005 Family History Medical HistoryRelationNameCommentsArthritisFatherJohn SeamonAsthmaFatherJohn SeamonStrokeMaternal GrandmotherCynthia HicksDrug abuseMotherKristy SeamonCancer OtherStrokeOtherStrokePaternal GrandfatherDiabetesSister 2Jozlynn SeamonRelation JygiQzquznOabtyzsnHgftxzul2QnmxjkEkef SeamonAliveMaternal GrandmotherCynthia HicksMotherKristy SeamonDeceasedOtherHalf BrotherPaternal GrandfatherSister 1x2 [...] week03/11/2023How often do you attend jew or caodaism services?1 to 4 times per year03/11/2023o you belong to any clubs or organizations such as jew groups, unions, fraternal or athletic laura ups, or school groups?No03/11/2023How often do you attend meetings of the clubs or organizations you belong to?Never03/11/2023re you , , , , never , or living with a partner?Wwkozet8203/11/2023 AUDIT-CAnswerDate RecordedQ1: How often do you have a drink containing alcohol? Monthly or less03/11/2023Q2: How many drinks containing alcohol do you have on a typical day when you are drinking?3 or Q3: How often do you have six or more drinks on one occasion?Less than wtuiloq2503/11/2023Overall Financial Resource Strain (CARDIA)AnswerDate RecordedHow hard is it for you to pay for the very basics like food, housing, medical care, and heating?Somewhat hard 03/11/2023HQ-2AnswerDate RecordedPatient Health Questionnaire-2 Score0 03/25/2025[facility] [place] [facility] Occupational Health - Occupational Stress QuestionnaireAnswerDate [...] steady place to sleep or slept in [place] (including now)?No03/11/2023Estimated Date of YufchfspLeopjztlYlh60/27/2026ased on last menstrual period of 10/30/2024Sex and Gender InformationValueDate RecordedSex Assigned at YsplgUjlqvg04/01/2023 1:10 PM EDTLegal ClaRtoztv86/15/2023 6:51 PM EDTGender QflnsersKdhodg37/01/2023 1:10 PM EDTSexual BzqsiuzimdqLmouctpz44/01/2023 1:10 PM EDT Last Filed Vital Signs Vital SignReadingTime TakenCommentsBlood Nhzmxpqf222/80107/19/2024 2:46 PM EST 134/84- blbijxqNprwz7865/16/2025 8:46 AM OBHEmljdyqqceh12 ??C (96.8 ??F) 03/25/2025 8:46 AM EDTRespiratory Rate--Oxygen Dynwpybsfp01%03/25/2025 8:46 AM EDTInhaled Oxygen Concentration--Wustmh57.7 kg (171 lb 6.4 oz)05/18/2025 2:46 PM ZSUOfiwpi831.3 cm (4' 10 )03/25/2025 8:46 AM EDTBody Mass Index35.8203/25/2025 8:46 AM EDT Plan of Treatment DateTypeDepartmentCare Team (Latest Contact Info)Vvlxtotutpp24/22/2025 3:30 PM ESTRoutine [facility] [address] [place] [address] [place] [phone] Bryant Cao DO [address] [facility] [address] [place], [place] [phone] 06/16/2025 4:00 PM ESTRoutine [facility] [address] [place] [address] Dixie Gan, JEWELRY INSPECTOR [address] [place] [phone] Health MaintenanceDue DateLast DoneCommentsPneumococcal Vaccine: Pediatrics (0 to 5 Years) and At-Risk Patients (6 to 64 Years) (1 of 2 - PCV)02/12/2020 2001COVID-19 Vaccine ( season)/11/2021, 03/21/2021, 1Diabetes: Hemoglobin A1C61, 12/15/2024, 12/15/2024, Additional history existsDiabetes: Urine Protein Nolkzbqxb13/20/23355610/27/2024, 11/11/2023, 11/11/2023, Additional history existsDiabetes: Retinopathy Screening 71, 06/30/2019Influenza ZlsmdxmMzzodvmma23/08/2025, 03/18/2024, 06/12/2023, Additional history exists Goals GoalPatient Goal TypeAssociated ProblemsRecent ProgressPatient-Stated?Author Reminders Care PlanOB RemindersNoOpen Scheduling, Background Procedures Procedure NamePriorityDate/TimeAssociated DiagnosisCommentsUS OB BPP W NON-QATNOI5205/21/2025 8:39 PM EST POCT URINALYSIS IJNRBZHAJgmbeku14/09/2025 2:51 PM EST 28 weeks gestation of ([facility]) Third trimester ([facility]) US OB BPP W NON-MHCAJN4505/14/2025 7:38 PM EST URINARY TRACT INFECTION (HTRX)Urkmcxd6804/27/2025 12:15 PM EST POCT URINALYSIS INKROAVSWmeirwn80/18/2025 9:55 AM EST 25 weeks gestation of ([facility]) US OB LOCOAEIU90/06/2025 8:24 AM EST POCT URINALYSIS CAVMLPXAHudluai66/30/2025 2:07 PM EDT Second trimester ([facility]) ALPHA FETOPROTEIN, TUMOR PLRPYENtwnfsn55/30/2025 10:01 AM EDT DIABETIC RETINOPATHY SCREENING - OU - BOTH YSPASlrufvp26/21/2025 12:15 PM EDT CULTURE, URINE, PREEPYSJiscxjz21/15/2025 8:04 AM EDT Missed menses POCT URINALYSIS RNTIAODGZrnrvay47/14/2025 9:03 AM EDT 20 weeks gestation of ([facility]) URINE CULTURE, JKCJMEDOflofcm94/11/2025 7:28 AM EDT [facility] URINE MICROSCOPIC EKUAGgphcmk85/11/2025 7:28 AM EDT UNCETGZGVuwabbe96/11/2025 7:28 AM EDT [facility] UA (CLEAN/CATCH) SOIL SCIENTIST/MICRO IF IND.Xvegeao9003/20/2025 7:28 AM EDT HEMOGLOBIN P2JCdduoqr40/08/2025 10:24 AM EDTMICROALBUMIN / CREATININE URINE WKVANXurzweb29/20/2025 from Last 3 Months or Most Recently Relevant to Health Maintenance Results * US OB BPP W NON-STRESS (05/21/2025 8:39 PM EST) Only the most recent of2 resultswithin the time period is included. Anatomical RegionLateralityModalityOtherSpecimen (Source)Anatomical Location / LateralityCollection Method / VolumeCollection TimeReceived Time05/21/2025 8:39 PM EST Narrative 05/21/2025 8:43 PM EST [facility] ?[address] ? [place], [facility] ? Ultrasound Report ? Signed ? Patient: DALIA BANKS P M ?MR#: [id number] ?? : 2000 ?Acct:[id number] ?? Age/Sex: 25 / F ?ADM Date: 05/21/25 ?? Loc: US ? Attending Dr: Bryant Cao D.O. ? Ordering Physician: Bryant Cao D.O. ?? Date of Service: 05/21/25 ?? Procedure(s): US OB BPP w non-stress ?? Accession Number(s): [id number] ? cc: Bryant Cao D.O.; JOAQUÍN DILLON ? [facility] ? [address] ? [place] [address] ? Patient Name: ?? DALIA Singh DRRAYLUCIAMILADISFRANSISCA ? MRN: [facility]:[id number] ? date: 2000 ?Sex: F ?? Assigned Patient Location: ?? Current Patient Location: ? Accession/Order Number: [id number] ?? Exam Date: 05/21/2025 ??19:56 ?Report Date: [...] Dictation Location: RADIO-PC-29 ? Electronically authenticated by: [id number] ??Y ?? Date: 05/21/2025 ??20:39 ? Dictated By: ?Kaveh Romeo M.D. ? Signed By: ?12/12/3 ? DD/ 38 ? TD/TT: ? Motorcycle Builder: Procedure Note Radiology, Radiologist, MD - 05/21/2025 [place] [address] Ultrasound Report Signed Patient: DALIA BANKS#: [id number] : 2000Acct:[id number] Age/Sex: 25 / FADM Date: 05/21/25 Loc: US Attending Dr: Bryant Cao D.O. Ordering Physician: Bryant Cao D.O. Date of Service: 05/21/25 Procedure(s): US OB BPP w non-stress Accession Number(s): [id number] cc: Bryant Cao D.O.; JOAQUÍN DILLON The [place] [address] Patient Name: DALIA BANKS MRN: [facility]:[id number] date: 2000 Sex: F Assigned Patient Location: US Current Patient Location: Accession/Order Number: [id number] Exam Date: 05/21/2025 19:56 Report Date: 05/21/2025 20:39 At the request of: BRYANT CAO DO Procedure: US OB BPP w non-stress Ultrasound biophysical profile INDICATION: Type 1 diabetes during COMPARISON: 05/14/2025 FINDINGS IMPRESSION: SINGLE LIVE INTRAUTERINE IN CEPHALICPOSITION. HEART RATE 138 BPM. AMNIOTIC FLUID INDEX 12.9 CM. BIOPHYSICALPROFILE SCORE 8/8 Impression dictated by: Kaveh Romeo M.D. 05/21/2025 8:39 PM Dictation Location: [place] [address] Electronically authenticated by: [id number] Y Date: 0:39 Dictated By: Kaveh Romeo M.D. Signed By:05/21/252042 DD/ 38 TD/TT: Motorcycle Builder: Authorizing ProviderResult TypeResult StatusCorey Kiley DOCLINISYNC IMAGINGFinal [...] Location / LateralityCollection Method / VolumeCollection TimeReceived IdaiOswyb66/09/2025 2:51 PM EST Narrative Authorizing ProviderResult TypeResult StatusAugusta Health TEST ENTER/EDIT ORDERABLESFinal Result * URINARY TRACT INFECTION (HTRX) (04/27/2025 12:15 PM EST)ComponentValueRef RangeTest MethodAnalysis TimePerformed AtPathologist SignatureACINETOBACTER VJMIJRWC883.961 - 24.689 ppm04/28/2025 6:33 AM ESTHealthTrackRx at [facility] ACINETOBACTER BAUMANIINot Dzuklkpl31.961 - 24.689 ppm04/28/2025 6:33 AM EST [facility] at LabPortCITROBACTER IYQGMDLL555.000 - 32.015 ppm04/28/2025 6:33 AM ESTHealthTrackRx at LabPortCITROBACTER FREUNDIINot Lcfayaul20.000 - 32.015 ppm04/28/2025 6:33 AM ESTHealthTrackRx at LabPortENTEROBACTER AEROGENES, YFQEJQO399.000 - 32.290 ppm04/28/2025 6:33 AM ESTHealthTrackRx at LabPortENTEROBACTER AEROGENES, CLOACAENot Cblehycq09.000 - 32.290 ppm 04/28/2025 6:33 AM ESTHealthTrackRx at LabPortENTEROCOCCUS FAECALIS, FAECIUM0 26.000 - 33.043 ppm04/28/2025 6:33 AM ESTHealthTrackRx at LabPortENTEROCOCCUS FAECALIS, FAECIUMNot Rwythvwd10.000 - 33.043 ppm04/28/2025 6:33 AM EST [facility] at LabPortESCHERICHIA LQKA803.000 - 28.500 ppm04/28/2025 6:33 AM ESTHealthTrackRx at LabPortESCHERICHIA COLINot Wgkbzesj45.000 - 28.500 ppm 04/28/2025 6:33 AM ESTHealthTrackRx at LabPortKLEBSIELLA PNEUMONIAE, OXYTOCA0 23.000 - 31.865 ppm04/28/2025 6:33 AM ESTHealthTrackRx at LabPortKLEBSIELLA PNEUMONIAE, OXYTOCANot Jhaicrgo25.000 - 31.865 ppm04/28/2025 6:33 AM EST [facility] at LabPortMORGANELLA IVNDBMFH267.961 - 24.689 ppm04/28/2025 6:33 AM ESTHealthTrackRx at LabPortMORGANELLA MORGANIINot Ytkovqha68.961 - 24.689 ppm04/28/2025 6:33 AM ESTHealthTrackRx at LabPortPROTEUS MIRABILIS, VULGARIS0 23.000 - 28.500 ppm04/28/2025 6:33 AM ESTHealthTrackRx at LabPortPROTEUS MIRABILIS, VULGARISNot Ffsljlwx44.000 - 28.500 ppm04/28/2025 6:33 AM EST [facility] at LabPortPSEUDOMONAS YHSQLOIIMK653.000 - 31.801 ppm04/28/2025 6:33 AM ESTHealthTrackRx at LabPortPSEUDOMONAS AERUGINOSANot Jszxjxqu45.000 - 31.801 ppm04/28/2025 6:33 AM ESTHealthTrackRx at LabPortSTAPHYLOCOCCUS AUREUS0 26.000 - 31.595 ppm04/28/2025 6:33 AM ESTHealthTrackRx at [facility] STAPHYLOCOCCUS AUREUSNot Hqjijzmp38.000 - 31.595 ppm04/28/2025 6:33 AM EST [facility] at LabPortSTREPTOCOCCUS AGALACTIAE (GROUP B STREP)026.000 - 32.435 ppm04/28/2025 6:33 AM ESTHealthTrackRx at LabPortSTREPTOCOCCUS AGALACTIAE (GROUP B STREP)Not Byasozek00.000 - 32.435 ppm04/28/2025 6:33 AM ESTHealthTrackRx at LabPortCANDIDA ALBICANS, PARAPSILOSIS, ADOQNHFWDY020.000 - 30.347 ppm04/28/2025 6:33 AM ESTHealthTrackRx at LabPortCANDIDA ALBICANS, PARAPSILOSIS, TROPICALISNot Ydkgwpkv81.000 - 30.347 ppm04/28/2025 6:33 AM EST [facility] LabPortCANDIDA MDJTRXYU457.000 - 31.618 ppm04/28/2025 6:33 AM ESTHealthTrackRx at LabPortCANDIDA GLABRATANot Qqykuyss81.000 - 31.618 ppm 04/28/2025 6:33 AM ESTHealthTrackRx at LabPortCANDIDA GTZUWE659.000 - 30.873 ppm04/28/2025 6:33 AM ESTHealthTrackRx at LabPortCANDIDA KRUSEINot Detected 23.000 - 30.873 ppm04/28/2025 6:33 AM ESTHealthTrackRx at LabPortSERRATIA FLICICOTAO393.000 - 31.581 ppm04/28/2025 6:33 AM ESTHealth[facility]Rx at [facility] SERRATIA MARCESCENSNot Tmyvaasv63.000 - 31.581 ppm04/28/2025 6:33 AM EST [facility] at LabPortSTREPTOCOCCUS PYOGENES (GROUP A STREP)019.961 - 24.689 ppm04/28/2025 6:33 AM ESTHealthTrackRx at LabPortSTREPTOCOCCUS PYOGENES (GROUP A STREP)Not Ggnjhvzu72.961 - 24.689 ppm04/28/2025 6:33 AM ESTHealthTrackRx at LabPortSTAPHYLOCOCCUS EPIDERMIDIS, HAEMOLYTICUS, LUGDUNENSIS, SAPROPHYTICUS (RYMYG925.961 - 24.689 ppm04/28/2025 6:33 AM ESTHealthTrackRx at [facility] STAPHYLOCOCCUS EPIDERMIDIS, HAEMOLYTICUS, LUGDUNENSIS, SAPROPHYTICUS (URINANot Xydyxffa26.961 - 24.689 ppm04/28/2025 6:33 AM ESTHealthTrackRx at [facility] STAPHYLOCOCCUS EPIDERMIDIS, HAEMOLYTICUS, LUGDUNENSIS, SAPROPHYTICUS (URINA0 19.961 - 24.689 ppm04/28/2025 6:33 AM ESTHealth[facility]Rx at [facility] STAPHYLOCOCCUS EPIDERMIDIS, HAEMOLYTICUS, LUGDUNENSIS, SAPROPHYTICUS (URINANot Iyvlznio74.961 - 24.689 ppm04/28/2025 6:33 AM ESTHealthTrackRx at [facility] Specimen (Source)Anatomical Location / LateralityCollection Method / Volume Collection TimeReceived MbkpQkxxe68/18/2025 12:15 PM EST04/28/2025 1:31 AM EST Narrative Authorizing ProviderResult TypeResult StatusCorey Kiley DOLAB BLOOD ORDERABLES Final ResultPerforming OrganizationAddressCity/State/ZIP CodePhone Number [facility] [address] [place] [address] * US OB PLACENTA (04/15/2025 8:24 AM EST)Anatomical RegionLateralityModality OtherSpecimen (Source)Anatomical Location / LateralityCollection Method / VolumeCollection TimeReceived Time04/15/2025 8:24 AM EST Narrative 04/15/2025 8:27 AM EST [facility] ?[address] ? [place] [address] ? Ultrasound Report ? Signed ? Patient: DALIA BANKS P M ?MR#: [id number] ?? : 2000 ?Acct:[id number] ?? Age/Sex: 25 / F ?ADM Date: ?? Loc: [facility] ??250-1 ? Attending Dr: Bryant Cao D.O. ? Ordering Physician: Bryant Cao D.O. ?? Date of Service: 04/14/25 ?? Procedure(s): US OB placenta ?? Accession Number(s): [id number] ? cc: Bryant Cao D.O.; JOAQUÍN DILLON ? [facility] ? [address] ? [place] [address] ? Patient Name: ?? DALIA BANKS ? MRN: [facility]:[id number] ? date: 2000 ?Sex: F ?? Assigned Patient Location: [facility] ?? Current Patient Location: ? Accession/Order Number: [id number] ?? Exam Date: 04/14/2025 ??13:27 ?Report Date: 04/15/2025 ??08:24 ? At the request of: ?? BRYANT ??KILEY ??DO ? Procedure: ??US OB placenta ? ULTRASOUND OB PLACENTA ? CLINICAL DATA: patient in [facility] ? COMPARISON: None ? There is a [...] M.D. ??04/15/2025 8:24 AM ? Dictation Location: [place] [address] ? Electronically authenticated by: [id number] ??Y ?? Date: 04/15/2025 ??08:24 ? Dictated By: ?Angela Lo M.D. ? Signed By: ?04/15/25 0827 ? DD/ 0824 ? TD/TT: ? Motorcycle Builder: Procedure Note Radiology, Radiologist, MD - 04/15/2025 [place] [address] Ultrasound Report Signed Patient: DALIA BANKS [facility]#: [id number] : 2000Acct:[id number] Age/Sex: Date: Loc: [facility] 250-[address]: Bryant Cao D.O. Ordering Physician: Bryant Cao D.O. Date of Service: 04/14/25 Procedure(s): US OB placenta Accession Number(s): [id number] cc: Bryant Cao D.O.; JOAQUÍN DILLON [place] [address] Patient Name: DALIA BANKS MRN: [facility]:[id number] date: 2000 Sex: F Assigned Patient Location: [facility] Current Patient Location: Accession/Order Number: [id number] Exam Date: 04/14/2025 13:27 Report Date: 04/15/2025 [...] Lo M.D. 04/15/2025 8:24 AM Dictation Location: [place] [address] Electronically authenticated by: [id number] Y Date: 508:24 Dictated By: Angela Lo M.D. Signed By:04/15/25826 DD/ 3 TD/TT: Motorcycle Builder: Authorizing ProviderResult TypeResult StatusCorey Kiley DOCLINISYNC IMAGINGFinal Result * (ABNORMAL) AFP tumor marker (04/08/2025 10:01 AM EDT)ComponentValueRef Range Test MethodAnalysis TimePerformed AtPathologist SignatureALPHA [id number] (H)<=9.9 ng/mLPROMEDICAComment: ?? PERFORMED AT [facility] [address],[place] [address] Specimen (Source)Anatomical Location / LateralityCollection Method / Volume Collection TimeReceived Time04/08/2025 10:01 AM EDT1 12:35 PM EDT Narrative Authorizing ProviderResult TypeResult StatusAmy [place] PALAB BLOOD ORDERABLES Final ResultPerforming OrganizationAddressCity/State/ZIP CodePhone Number [place] * (ABNORMAL) Diabetic Retinopathy Screening - OU - Both Eyes (03/30/2025 12:15 PM EDT)Anatomical RegionLateralityModalityHeadOther Narrative Authorizing ProviderResult TypeResult StatusThomas W Sanford ODOPHTH PHOTOGRAPHY Final Result * Urine culture [...] ROUTINELess than 10,000 colonies/mLTBHURINE CULTURE, ROUTINEPerformed at: [facility] LabSouthwest Regional Rehabilitation CenterTBHURINE CULTURE, SOPUAKD[address] [place], [place] [id number] CULTURE, ROUTINELab Director: Chaka Almanzar PhD, Phone: [phone] Specimen (Source)Anatomical Location / LateralityCollection Method / [...] AM EDT1 7:35 AM EDT Narrative [facility] - 03/20/2025 7:48 AM EDT Authorizing ProviderResult [...] AM EDT1 7:35 AM EDT Narrative [facility] - 03/20/2025 7:55 AM EDT Authorizing ProviderResult TypeResult StatusCorey Kiley DOCLINISYNCFinal Result Performing OrganizationAddressCity/State/ZIP CodePhone Number CLINISYNC [facility] * (ABNORMAL) [facility] UA (CLEAN/CATCH) SOIL SCIENTIST/MICRO IF IND. (03/20/2025 7:28 AM EDT) ComponentValueRef [...] DOCLINISYNCFinal Result Performing OrganizationAddressCity/State/ZIP CodePhone Number CLINISYNC TB * Microalbumin / creatinine urine ratio (10/27/2024)ComponentValueRef RangeTest MethodAnalysis TimePerformed AtPathologist SignatureMICROALBUMIN, URINE10.2 Specimen (Source)Anatomical Location / LateralityCollection Method / Volume Collection TimeReceived TimeUrineUrine specimen obtained by clean catch procedure / Dezdxqa3510/27/2024 Narrative Authorizing ProviderResult TypeResult StatusFirelands Physician GroupLAB URINE ORDERABLESFinal Result from Last 3 Months or Most Recently Relevant to Health Maintenance Additional Health Concerns Active ProblemsNoted DateDiagnosed DateOB Zwqmemrbh03/24/2025 Insurance Care Teams Team MemberRelationshipSpecialtyStart DateEnd Date Joaquín Dillon DO [address] [place] [address] [facility] - [facility]22 Joaquín Dillon DO [address] [place] [address] PCP - Medical [place] Dgvasnrhjn27/1/
--- OUTSIDE RECORDS SUMMARY | 2025-05-28 14:41 | XMS_ITS | Encounter Summary ---
Author Organization [email or web address] s tem Address [facility]-[facility] [place] [address] Care Team Providers Care Drop Wire Builder Name Role Phone JenniferDru April MUNGUIA Primary Care Provider +1- [phone] Encounter Details DateTypeDepartmentCare Team (Latest Contact Info)Iadlrdrkoxe10/08/2025Travel Social History Tobacco UseTypesPacks/DayYears UsedDateSmoking Tobacco: NeverSmokeless Tobacco: NeverAlcohol UseStandard Drinks/WeekCommentsYes0 (1 standard drink = 0.6 oz pure alcohol)socialOH[facility] UtilitiesAnswerDate RecordedIn the past 12 months [...] care, and heating?Not hard at all02/17/2025PHQ-2AnswerDate RecordedTotal Snhug235F[facility] [place] of Occupational Health - Occupational Stress QuestionnaireAnswerDate [...] a household?No02/17/2025hildcareAnswerDate RecordedDo problems getting child support agent make it difficult for you to work [...] and direction in my life.Agree02/17/2025Estimated Date of UjnxlggoIarrguomYno50/27/2026Based on last menstrual period of 10/30/2024Sex and Gender InformationValueDate RecordedSex Assigned at SaarqZemeam00/22/2025 1:51 AM EDTLegal SexFemale 01/13/2015 11:58 AM EDTGender UflzxmsvCpbjpr38/22/2025 1:51 AM EDTSexual OrientationNot on filedocumented as of this encounter Plan of Treatment DateTypeDepartmentCare Team (Latest Contact Info)Uqvokssucuh08/02/2026 3:30 PM ESTAppointment [facility] US Imaging [address] [place] [address] documented as of this encounter Visit Diagnoses Not on filedocumented in this encounter Additional Health Concerns AssessmentNoted TimePHQ-9 Depression Total Score: 8:31 AM ESTA Body Mass Index follow-up plan has been documented for the hqxlvui5806/12/2023 4:35 PM ESTdocumented as of this encounter Care Teams Team MemberRelationshipSpecialtyStart DateEnd Date Dru Rodriguez DO [address] [place] [address] PCP - General01/01/17documented as of this encounter
--- OUTSIDE RECORDS SUMMARY | 2025-05-28 14:41 | XMS_ITS | Encounter Summary ---
Author Organization [facility] tem Address [id number] [place] [address] Care Team Providers Care Motor Vehicle Light Assembler Name Role Phone RonyDru lozada April MUNGUIA Primary Care Provider [phone]- [phone] Encounter Details DateTypeDepartmentCare Team (Latest Contact Info)Jubxbhurhug09/08/2025Telephone Maternal- Medicine at [facility] [address] [facility] [place] [phone] Debby Garcia RN Social History Tobacco UseTypesPacks/DayYears UsedDateSmoking Tobacco: NeverSmokeless Tobacco: NeverAlcohol UseStandard Drinks/WeekCommentsYes0 (1 standard drink = 0.6 oz pure alcohol)[facility] UtilitiesAnswerDate RecordedIn the past 12 months has the [employer], gas, oil, or water [employer] threatened to shut off services in your [...] care, and heating?Not hard at all02/17/2025PHQ-2AnswerDate RecordedTotal Jkjua00306/12/2023Finlogan regional hospital [place] of Occupational Health - Occupational Stress QuestionnaireAnswerDate [...] of a household?No02/17/2025hildcareAnswerDate RecordedDo problems getting child guidance counselor make it difficult for you to [...] and direction in my life.Agree02/17/2025Estimated Date of QnacvqsnEewbosdrVre36/27/2026Based on last menstrual period of 10/30/2024Sex and Gender InformationValueDate RecordedSex Assigned at GxduiZanyiq43/22/2025 1:51 AM EDTLegal SexFemale 01/13/2015 11:58 AM EDTGender UhvtgnypAxywis18/22/2025 1:51 AM EDTSexual OrientationNot on filedocumented as of this encounter Miscellaneous Notes * Telephone Encounter - Debby Garcia RN - 05/17/2025 2:41 PM EST Left message for patient to call [facility] to schedule a 1-2 week video visit with Rosy PITTMAN and a [facility] MD visit in person in 4 weeks. Call back number given. documented in this encounter Plan of Treatment DateTypeDepartmentCare Team (Latest Contact Info)Gchecyubefh03/02/2026 3:30 PM ESTAppointment [facility] US Imaging [address] [place] [address] documented as of this encounter Visit Diagnoses Diagnosis Uncontrolled type 1 diabetes mellitus with hyperglycemia, with long-term current use of insulin ([facility] documented in this encounter Additional Health Concerns AssessmentNoted TimePHQ-9 Depression Total Score: 8:31 AM ESTA Body Mass Index follow-up plan has been documented for the gpydgew8706/12/2023 4:35 PM ESTdocumented as of this encounter Care Teams Team MemberRelationshipSpecialtyStart DateEnd Date Dru Rodriguez DO [address] [place] [address] PCP - General01/01/17documented as of this encounter
--- OUTSIDE RECORDS SUMMARY | 2025-05-28 14:41 | XMS_ITS | Encounter Summary ---
Author Organization [facility] tem Address [facility] [address] [place] [address] Care Team Providers Care Poker Supervisor Name Role Phone JenniferDru April MUNGUIA Primary Care Provider [phone]- [phone] Encounter Details DateTypeDepartmentCare Team (Latest Contact Info)Sbrjwjsrqve25/17/2025Telephone Maternal- Medicine at [facility] [address] [facility] [place] [phone] Yue Bullock RN Social History Tobacco UseTypesPacks/DayYears UsedDateSmoking Tobacco: NeverSmokeless Tobacco: NeverAlcohol UseStandard Drinks/WeekCommentsYes0 (1 standard drink = 0.6 oz pure alcohol)[facility] UtilitiesAnswerDate RecordedIn the past 12 months has the [employer], gas, oil, or water [employer] threatened to shut off services in your [...] care, and heating?Not hard at all02/17/2025PHQ-2AnswerDate RecordedTotal Jqtzm934Finsteward health care system [place] of Occupational Health - Occupational Stress QuestionnaireAnswerDate [...] and direction in my life.Agree02/17/2025Estimated Date of OsajewisKazhurhqSnc71/27/2026Based on last menstrual period of 10/30/2024Sex and Gender InformationValueDate RecordedSex Assigned at HdzalFxasoc55/22/2025 1:51 AM EDTLegal SexFemale 01/13/2015 11:58 AM EDTGender DxgjgzmaHoytow41/22/2025 1:51 AM EDTSexual OrientationNot on filedocumented as of this encounter Miscellaneous Notes * Telephone Encounter - Yue Bullock RN - 05/26/2025 5:18 PM EST Called pt to let her know that Dr Jeffrey reviewed her pump download and did not want to make any change fort his week. She appears to be having lows at times but not sure if related to no snack or what the relationship is. So encouraged her to call back if she feels she needs to be adjusted do tolows from medication and we will get her adjusted. But if lows due to missing snacks then she needsto do her snacks in between her meals. Will send her a my chart as well. documented in this encounter Plan of Treatment DateTypeDepartmentCare Team (Latest Contact Info)Uqlfutcnjrd78/02/2026 3:30 PM ESTAppointment [facility] US Imaging [address] [place] [address] documented as of this encounter Visit Diagnoses Diagnosis Uncontrolled type 1 diabetes mellitus with hyperglycemia, with long-term current use of insulin ([facility] documented in this encounter Additional Health Concerns AssessmentNoted TimePHQ-9 Depression Total Score: 8:31 AM ESTA Body Mass Index follow-up plan has been documented for the ktatwhz6906/12/2023 4:35 PM ESTdocumented as of this encounter Care Teams Team MemberRelationshipSpecialtyStart DateEnd Date Dru Rodriguez DO [address] [place] [address] PCP - General01/01/17documented as of this encounter
--- OUTSIDE RECORDS SUMMARY | 2025-05-28 14:41 | XMS_ITS | Encounter Summary ---
Author Organization [facility] Address [address] [place] [address] Care Team Providers Care Shellfish Weigher Name Role Phone Joaquín Rodriguez DO Primary Care Provider [phone]- [phone] Joaquín Rodriguez DO Unavailable [phone] Encounter Details DateTypeDepartmentCare Team (Latest Contact Info)Nwqxkprpynw66/12/2025Clinisync Result Encounter [facility] External Department Unsolicited Bryant Cao DO [address] [place] [address] Social History Tobacco UseTypesPacks/DayYears UsedDateSmoking Tobacco: NeverSmokeless [...] relatives?Twice a week03/11/2023How often do you attend sabianism or scientology services?1 to 4 times per year03/11/2023o you belong to any clubs or organizations such as sabianism groups, unions, fraternal or athletic laura ups, or school groups?No03/11/2023How often do you attend meetings of the clubs or organizations you belong to?Never03/11/2023re you , , , , never , or living with a partner?Qekkrcy4703/11/2023 AUDIT-CAnswerDate RecordedQ1: How often do you have a drink containing alcohol? Monthly or less03/11/2023Q2: How many drinks containing alcohol do you have on a typical day when you are drinking?3 or Q3: How often do you have six or more drinks on one occasion?Less than hlxzlhz9103/11/2023Overall Financial Resource Strain (CARDIA)AnswerDate RecordedHow hard is it for you to pay for the very basics like food, housing, medical care, and heating?Somewhat hard 03/11/2023HQ-2AnswerDate RecordedPatient Health Questionnaire-2 Score0 03/25/2025Finhighland ridge hospital [place] of Occupational Health - Occupational Stress QuestionnaireAnswerDate [...] slept in ashelter (including now)?No03/11/2023Estimated Date of IcnlasyeIiuwjlhrDqj99/27/2026ased on last menstrual period of 10/30/2024Sex and Gender InformationValueDate RecordedSex Assigned at NajttDchauy66/01/2023 1:10 PM EDTLegal UzpTmjdos19/15/2023 6:51 PM EDTGender UnswqwzhIeeunr26/01/2023 1:10 PM EDTSexual BaouoarfaagIphgnrjc73/01/2023 1:10 PM EDTdocumented as of this encounter Plan of Treatment DateTypeDepartmentCare Team (Latest Contact Info)Breghnejrra59/22/2025 3:30 PM ESTRoutine [facility] Issac [address] [place] [address] Bryant Cao, [address] [place], [place] [id number] 06/16/2025 4:00 PM ESTRoutine NOMAislinn [address]ILL[address] [place] [address] Dixie Gan, IT SERVICE TECHNICIAN [address] [place] [address] documented as of this encounter Goals GoalPatient Goal TypeAssociated ProblemsRecent ProgressPatient-Stated?Author Reminders Care PlanOB RemindersNoOpen Scheduling, Backgrounddocumented as of this encounter Procedures Procedure NamePriorityDate/TimeAssociated DiagnosisCommentsUS OB BPP W NON-PPDXKZ7205/21/2025 8:39 PM EST documented in this encounter Results * US OB BPP W NON-STRESS (05/21/2025 8:39 PM EST)Anatomical Region LateralityModalityOtherSpecimen (Source)Anatomical Location / Laterality Collection Method / VolumeCollection TimeReceived Time05/21/2025 8:39 PM EST Narrative 05/21/2025 8:43 PM EST [facility] ?[address] ? [place] [address] ? Ultrasound Report ? Signed ? Patient: KAELYN SHAW ?MR#: [id number] ?? : 2000 ?Acct:[id number] ?? Age/Sex: 25 / F ?ADM Date: 05/21/25 ?? Loc: US ? Attending Dr: Bryant Cao D.O. ? Ordering Physician: Bryant Coa D.O. ?? Date of Service: 05/21/25 ?? Procedure(s): US OB BPP w non-stress ?? Accession Number(s): [id number] ? cc: Bryant Cao D.O.; JOAQUÍN RODRIGUEZ ? [facility] ? [facility] [address] ? [place] [address] ? Patient Name: ?? KAELYN SHAW ? MRN: [facility]:[id number] ? date: 2000 ?Sex: F ?? Assigned Patient Location: ?? Current Patient Location: ? Accession/Order Number: [id number] ?? Exam Date: 05/21/2025 ??19:56 ?Report Date: [...] Dictation Location: RADIO-PC-29 ? Electronically authenticated by: [id number] ??Y ?? Date: 05/21/2025 ??20:39 ? Dictated By: ?Kaveh Romeo M.D. ? Signed By: ?05/21/252042 ? DD/ 38 ? TD/TT: ? Flame Cutting Machine Operator: Procedure Note Radiology, Radiologist, MD - 05/21/2025 [place] [address] Ultrasound Report Signed Patient: KAELYN SHAW MMR#: [id number] : 2000Acct:[id number] Age/Sex: 25 / FADM Date: 05/21/25 Loc: US Attending Dr: Bryant Cao D.O. Ordering Physician: Bryant Cao D.O. Date of Service: 05/21/25 Procedure(s): US OB BPP w non-stress Accession Number(s): [id number] cc: Bryant Cao D.O.; JOAQUÍN RODRIGUEZ The [place] [id number] Patient Name: KAELYN SHAW MRN: [id number] date: 2000 Sex: F Assigned Patient Location: US Current Patient Location: Accession/Order Number: [id number] Exam Date: 05/21/2025 19:56 Report Date: 05/21/2025 20:39 At the request of: BRYANT CAO DO Procedure: US OB BPP w non-stress Ultrasound biophysical profile INDICATION: Type 1 diabetes during COMPARISON: 05/14/2025 FINDINGS IMPRESSION: SINGLE LIVE INTRAUTERINE IN CEPHALICPOSITION. HEART RATE 138 BPM. AMNIOTIC FLUID INDEX 12.9 CM. BIOPHYSICALPROFILE SCORE 8/8 Impression dictated by: Kaveh Romeo M.D. 05/21/2025 8:39 PM Dictation Location: [place] [address] Electronically authenticated by: [id number] Y Date: 520:39 Dictated By: Kaveh Romeo M.D. Signed By:05/21/252042 DD/ 38 TD/TT: Flame Cutting Machine Operator: Authorizing ProviderResult TypeResult StatusCorey Kiley DOCLINISYNC IMAGINGFinal Result documented in this encounter Visit Diagnoses Not on filedocumented in this encounter Additional Health Concerns Active ProblemsNoted DateDiagnosed DateOB Aatlowoht97/24/2025 documented as of this encounter Care Teams Team MemberRelationshipSpecialtyStart DateEnd Date Joaquín Rodriguez DO [address] [place] [address] [facility] - [facility]10/22/22 Joaquín Rodriguez DO [address] [place] [address] PCP - Medical [place] Uqojncatfz19/1/2312documented as of this encounter
--- OUTSIDE RECORDS SUMMARY | 2025-05-28 14:41 | XMS_ITS | Encounter Summary ---
Author Organization [facility] Address [address] [place] [address] Care Team Providers Care Concrete Bucket Unloader Name Role Phone LizzDru lam DO Primary Care Provider [phone]- [phone] RonySimon lozadaew April DO Unavailable [phone] Encounter Details DateTypeDepartmentCare Team (Latest Contact Info)Ljvfzdmjuzu56/09/2025amboo flowsheet LALITA [place] OBGYLarisa [address] [place] [phone] Katharine Cummins PA [address] [place], [facility] Social History Tobacco UseTypesPacks/DayYears UsedDateSmoking Tobacco: NeverSmokeless [...] relatives?Twice a week03/11/2023How often do you attend yazidism or yazidi services?1 to 4 times per year03/11/2023o you belong to any clubs or organizations such as yazidism groups, unions, fraternal or athletic laura ups, or school groups?No03/11/2023How often do you attend meetings of the clubs or organizations you belong to?Never03/11/2023re you , , , , never , or living with a partner?Zhvfpty0203/11/2023 AUDIT-CAnswerDate RecordedQ1: How often do you have a drink containing alcohol? Monthly or less03/11/2023Q2: How many drinks containing alcohol do you have on a typical day when you are drinking?3 or Q3: How often do you have six or more drinks on one occasion?Less than qrtswuh3803/11/2023Overall Financial Resource Strain (CARDIA)AnswerDate RecordedHow hard is it for you to pay for the very basics like food, housing, medical care, and heating?Somewhat hard 03/11/2023HQ-2AnswerDate RecordedPatient Health Questionnaire-2 Score0 03/25/2025[facility] [place] of Occupational Health - Occupational Stress QuestionnaireAnswerDate [...] slept in ashelter (including now)?No03/11/2023Estimated Date of UuhiooszYigqkzmwPos73/27/2026ased on last menstrual period of 10/30/2024Sex and Gender InformationValueDate RecordedSex Assigned at XdjrrVbsmuc57/01/2023 1:10 PM EDTLegal VraEndgvd73/15/2023 6:51 PM EDTGender NoquuzisZvhrau39/01/2023 1:10 PM EDTSexual HkbpkikireyLqvboxwb85/01/2023 1:10 PM EDTdocumented as of this encounter Plan of Treatment DateTypeDepartmentCare Team (Latest Contact Info)Socultvesgy45/22/2025 3:30 PM ESTRoutine [facility] Issac PORTILLO [address] [place] [address] Kolton Cao DO [address] [place] [address] 06/16/2025 4:00 PM ESTRoutine NOMAislinn PORTILLO [address] [place] [address] Dixie Gan, STUDENT ADMISSIONS CLERK [address] [place] [address] documented as of this encounter Goals GoalPatient Goal TypeAssociated ProblemsRecent ProgressPatient-Stated?Author Reminders Care PlanOB RemindersNoOpen Scheduling, Backgrounddocumented as of this encounter Visit Diagnoses Not on filedocumented in this encounter Additional Health Concerns Active ProblemsNoted DateDiagnosed DateOB Sixtdytjp86/24/2025 documented as of this encounter Care Teams Team MemberRelationshipSpecialtyStart DateEnd Date Dru Rodriguez DO [address] [place] [address] PCP - GeneralFamily Medicine10/22/22 Dru Rodriguez DO [address] [place] [address] PCP - Medical [place] Tdlnryzmlw26/1/2312documented as of this encounter
[2025-05-28 14:47] VITALS: BP 115/74; PULSE 98
--- NOTE | 2025-05-28 16:16 | US_ITS ---
[place] [address] Patient Name: KAELYN BANKS MRN: [id number] date: 2000 Sex: F Assigned Patient Location: US Current Patient Location: US Accession/Order Number: [id number] Exam Date: 05/28/2025 16:19 Report Date: 05/28/2025 23:24 At the request of: BRYANT PULLIAM DO Procedure: US OB BPP w non-stress US OB BPP w non-stress 05/28/2025 5:31 PM SIGNS AND SYMPTOMS: ^08/06/2025 ^TYPE 1 DIABETES MELLITUS O24.019 PROTOCOL: Transabdominal sonographic imaging of the gravid uterus COMPARISON: None FINDINGS: Estimated gestational age: 30 weeks 0 days heart rate: 144 bpm Amniotic fluid index: 17.93 cm. The deepest vertical pocket measures 6.08 cm. Biophysical profile: breathing movements: 2/2 Gross body movements: 2/2 tone: 2/2 Amniotic fluid volume: 2/2 US/US OB BPP w non-stress IMPRESSION: Biophysical profile score: 8/8 Impression dictated by: Prashanth Orta M.D. 05/28/2025 11:24 PM Dictation Location: [facility] VALLEYTranscarga.pe Electronically authenticated by: [id number] Y Date: 05/28/2025 23:24
== END 2025-05-28 16:33 | disposition home or self-care (01) ==
LOC: US 14:38 → FBC 14:40
PROVIDERS: PCP Family Medicine; Visit Provider Obstetrics & Gynecology
DX: O24.313 Unspecified pre-existing diabetes mellitus in pregnancy, third trimester (principal); O26.899 Other specified pregnancy related conditions, unspecified trimester; Z67.91 Unspecified blood type, Rh negative
CPT/HCPCS: 36415; 76818; 86850; 86900; 86901; 87086; J2791

== ENCOUNTER 2025-05-30 22:17 | Outpatient (OUT) | payer OTHER, BC, SELFPAY ==
--- OUTSIDE RECORDS SUMMARY | 2025-05-17 13:00 | XMS_ITS | Encounter Summary ---
Author Organization [facility] tem Address [id number] [address] [place] [address] Care Team Providers Care Administrative Tech Name Role Phone JenniferDru April MUNGUIA Primary Care Provider +1- [phone] Encounter Details DateTypeDepartmentCare Team (Latest Contact Info)Phqcazfecwb86/08/2025 1:00 PM ESTTelemedicine Maternal- [facility] at [facility] [address] [place] [phone] Rosy Arredondo PA-C [address] [address] Type 1 diabetes mellitus during in third trimester (Primary Dx) Social History Tobacco UseTypesPacks/DayYears UsedDateSmoking Tobacco: NeverSmokeless Tobacco: NeverAlcohol UseStandard Drinks/WeekCommentsYes0 (1 standard drink = 0.6 oz pure alcohol)socialMERCY HEALTH ST[facility] UtilitiesAnswerDate RecordedIn the past 12 months has the [employer], gas, oil, or water [employer] threatened to shut off services in your [...] care, and heating?Not hard at all02/17/2025PHQ-2AnswerDate RecordedTotal Lzfmx590Finblue mountain hospital, inc. 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, 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, 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, [...] Date Anxiety Depression Diabetes mellitus type I ([facility]) SURGICAL HISTORY: Past Surgical History: Procedure Laterality [...] TSH 0.75 04/20/2025 No components found for: [facility] Lab Results Component Value Date CREATININE 0.62 [...] 2009 Endo outside of : Mily Queen ([facility]) - Current blood glucose control: [...] has follow up with her PCP or powerhouse operator within 2 weeks after delivery - MFM/Endocrinology referral placed for Dr Cerrato, however due to patient's insurance, she can only get her medication refilled through her current powerhouse operator which is in network for her. Her [...] by e-mail to: or by fax to: [phone] Rosy Arredondo PA-C Maternal- Medicine Office phone: [phone] Rosy Arredondo PA-C 05/17/25 1325 documented in this encounter Plan of Treatment DateTypeDepartmentCare Team (Latest Contact Info)Saflgjcxamq53/02/2026 3:30 PM ESTAppointment [facility] [address] [place] [phone] documented as of this encounter Visit Diagnoses Diagnosis Type 1 diabetes mellitus during in third trimester- Primary documented in this encounter Additional Health Concerns AssessmentNoted TimePHQ-9 Depression Total Score: 8:31 AM ESTA Body Mass Index follow-up plan has been documented for the bembkkr6406/12/2023 4:35 PM ESTdocumented as of this encounter Care Teams Team MemberRelationshipSpecialtyStart DateEnd Date Dru Rodriguez DO [address] [place] [address] PCP - General01/01/17documented as of this encounter
--- OUTSIDE RECORDS SUMMARY | 2025-05-18 14:40 | XMS_ITS | Encounter Summary ---
Author Organization [facility] Address [address] [place] [address] Care Team Providers Care Capacitor Pack Press Operator Name Role Phone RonyDru lozada April DO Primary Care Provider [phone]- [phone] Dru Rodriguez DO Unavailable [phone] Reason for Visit * ReasonCommentsRoutine Visit Encounter Details DateTypeDepartmentCare Team (Latest Contact Info)Iysdzwxgxft93/09/2025 2:40 PM ESTRoutine [facility] [address] [place] [address] Katharine Cummins PA [address] [place], [facility]11 28 weeks gestation of ([facility]); Type 1 diabetes mellitus during , antepartum ([facility]); Third trimester ([facility]) Social History Tobacco UseTypesPacks/DayYears UsedDateSmoking Tobacco: [...] week03/11/2023How often do you attend holiness or faith services?1 to 4 times per year03/11/2023o you belong to any clubs or organizations such as holiness groups, unions, fraDaily Aisle or athletic laura ups, or school groups?No03/11/2023How often do you attend meetings of the clubs or organizations you belong to?Never03/11/2023re you , , , , never , or living with a partner?Rduubna2703/11/2023 AUDIT-CAnswerDate RecordedQ1: How often do you have a drink containing alcohol? Monthly or less03/11/2023Q2: How many drinks containing alcohol do you have on a typical day when you are drinking?3 or Q3: How often do you have six or more drinks on one occasion?Less than pmabclb6903/11/2023Overall Financial Resource Strain (CARDIA)AnswerDate RecordedHow hard is it for you to pay for the very basics like food, housing, medical care, and heating?Somewhat hard 03/11/2023HQ-2AnswerDate RecordedPatient Health Questionnaire-2 Score0 03/25/2025[facility] [place] of Occupational Health - Occupational Stress QuestionnaireAnswerDate [...] to sleep or slept in [facility] (including now)?No03/11/2023Estimated Date of SnuayujgEjjbktwbRlo97/27/2026ased on last menstrual period of 10/30/2024Sex and Gender InformationValueDate RecordedSex Assigned at XtanyBtopxi73/01/2023 1:10 PM EDTLegal NqfUfzszt04/15/2023 6:51 PM EDTGender XgnummytEfsewi92/01/2023 1:10 PM EDTSexual OohdkqlumyuBubeaceg81/01/2023 1:10 PM EDTdocumented as of this encounter Last Filed Vital Signs Vital SignReadingTime TakenCommentsBlood Qjmysgld949/8012 2:46 PM EST 134/84- recheckPulse--Temperature--Respiratory Rate--Oxygen Saturation--Inhaled Oxygen Concentration--Jdwjjv60.7 kg (171 lb 6.4 oz)05/18/2025 2:46 PM [...] unresponsive hypoglycemia cholecalciferol (Vitamin D-3) 1.25 MG (60943 UT) capsule every week Continuous Blood Gluc [...] UNITS DAILY Insulin Disposable Pump (Omnipod 5 DmqL5U5 Pods Gen 5) misc 1 each, Subcutaneous, [...] TO CHECK GLUCOSE 4 TIMES DAILY Vit w/Xg-Spsfurxwd-WC (PNV PO) Take by mouth promethazine (PHENERGAN) 25 mg, Every 6 hours PRN pyridoxine (VITAMIN B-6) 100 mg, Every morning ALLERGIES Allergies Allergen Reactions Amoxicillin Anaphylaxis Mouth irritation Penicillins Anaphylaxis Has since taken without reaction PROBLEMS Active Ambulatory Problems Diagnosis Date Noted Bulging lumbar disc 11/08/2022 Chronic fatigue 11/08/2022 Lumbago with sciatica, left side 11/08/2022 Sciatica 11/08/2022 Celiac disease in pediatric patient ([facility]) 05/23/2016 Generalized anxiety disorder 01/01/2017 Mild intermittent asthma ([facility]) 05/23/2016 Panic disorder without agoraphobia 01/01/2017 Biliary dyskinesia 11/08/2022 Type 1 diabetes mellitus without complications ([facility]) 02/04/2023 Type 1 diabetes mellitus with [...] nursing note reviewed. Exam conducted with a etiologist present. Vitals: Estimated body mass index is 35.82 kg/m?? as calculated from the following: Height as of 03/25/25: 4' 10 . Weight as of this encounter: 171 lb 6.4 oz. BP: Patient's last menstrual period was 10/30/2024. Assessment/Plan ICD-10-CM 1. 28 weeks gestation of ([facility]) Z3A.28 POCT urinalysis dipstick manually resulted 2. Type 1 diabetes mellitus during , antepartum ([facility]) O24.019 3. Third trimester ([facility]) Z34.93 POCT urinalysis dipstick manually resulted [...] Plan of Treatment DateTypeDepartmentCare Team (Latest Contact Info)Ywtuquxhcua22/22/2025 3:30 PM ESTRoutine [facility] [address] [place] [address] Kolton Cao DO [address] [place] [address] 06/16/2025 4:00 PM ESTRoutine [facility] [address] [place] [address] Dixie Gan, RESTAURANT OPERATIONS MANAGER [address] [place] [address] documented as of this encounter Goals GoalPatient Goal TypeAssociated ProblemsRecent ProgressPatient-Stated?Author Reminders Care PlanOB RemindersNoOpen Scheduling, Backgrounddocumented as of this encounter Procedures Procedure NamePriorityDate/TimeAssociated DiagnosisCommentsPOCT URINALYSIS RMIAFJVONvlhulw14/09/2025 2:51 PM EST 28 weeks gestation of ([facility]) Third trimester ([facility]) documented in this encounter Results * [...] / LateralityCollection Method / VolumeCollection Time Received YbziDsbju98/09/2025 2:51 PM EST Narrative Authorizing ProviderResult TypeResult StatusWell[facility] TEST ENTER/EDIT ORDERABLESFinal Result documented in this encounter Visit Diagnoses Diagnosis 28 weeks gestation of ([facility]) Type 1 diabetes mellitus during , antepartum ([facility]) Third trimester ([facility]) state, incidental documented in this encounter Additional Health Concerns Active ProblemsNoted DateDiagnosed DateOB Fzaafroaz13/24/2025 documented as of this encounter Care Teams Team MemberRelationshipSpecialtyStart DateEnd Date Dru Rodriguez DO [address] [place] [address] PCP - GeneralFamily Medicine10/22/22 Dru Rodriguez DO [address] [place] [address] PCP - Medical Cashiers Ciouegjtbu08/1/2312documented as of this encounter
--- OUTSIDE RECORDS SUMMARY | 2025-05-28 19:25 | XMS_ITS | Continuity of Care Document ---
Author Organization [facility] Address [address] [place] [address] Phone Care Team Providers Care Mosaic Technician Name Role Phone Dru Rodriguez DO Primary Care Provider Greg White MD Emergency Provider [phone] Carissa Queen APRN Attending Provider Kolton Cao DO Attending Provider [phone] Care Teams Patient Care Team Team Status: [...] March 09, 2025 End: March 09, 2025 Visit Care Team Team Status: Inactive Member Role/Relationship Status Dates Kolton Cao DO Attending Provider Active Start : May 28, 2025 End: May 28, 2025 Chief Complaint and Reason for Visit Chief Complaint Admit Date 18wks iup blood sugar issues February 092024 7:50pm 12 week March 09, 2025 8:08am Reason for Visit Admit Date Dietary counseling and surveillance Sept emb2024 8:08am Hyperlipidemia, unspecified March 092024 8:08am Insulin pump in place March 09 8:08am 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 Sept mb2024 8:08am March 09, 2025 8:08am Type 1 [...] Diagnosis/Recorded Date Onset Date Status C omments 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 December 16, 2024 [...] D deficiency Vitamin D deficiency, unspecifiedFollow with wqke-dyc-hrtyndy dosing 2000 units once dailyBlood-Glucose Sensor (Dexcom G6 Sensor) deviceActive0.Ydxru26JrlOctober 29, 2024 11:00pmType 1 diabetes mellitus with hyperglycemia Type 1 diabetes mellitus with hyperglycemiaAs directed Change every 10 days Blood-Glucose Transmitter (Dexcom G6 Transmitter) deviceActive0.Yomxk25Dhg2024 11:00pmType 1 diabetes mellitus with hyperglycemia Type 1 diabetes mellitus with hyperglycemiaAs directed Change every 90 days Insulin Lispro 100 unit/mL ogpgsfviSrmwuhokflmb7YITPMATph as Oreghuba814Lpsj 2024 7:44amSeptember 2024 8:06amType 1 diabetes mellitus with hyperglycemia Type 1 diabetes mellitus with hyperglycemiasubcutaneously use as directed; INJECT INSULIN SUBCUTANEOUSLY PER PUMP (MAX DAILY DOSE 80 UNITS)Insulin Pump Cart,Auto,Bt,G6/7 (Omnipod 5 G6-G7 Pods (Gen 5)) cartridgeDiscontinued0.Kpjrv734 January 21, 2025 3:31pmSeptember 2024 8:06amType 1 diabetes mellitus with hyperglycemia Type 1 diabetes mellitus with hyperglycemiaUse to deliver insulin change every 3 daysBlood-Glucose Sensor (Dexcom G7 Sensor) deviceActive0.Wfubo64Oqhilw 2024 3:31pmType 1 diabetes mellitus with hyperglycemia Type 1 diabetes mellitus with hyperglycemiaUse with Omnipod 5 to manage BG change every 10 daysBlood-Glucose Sensor (Dexcom G7 Sensor) deviceActive0.Route9 3November 2024 8:50amType 1 diabetes mellitus with hyperglycemia Type 1 diabetes mellitus with hyperglycemiaAs directed change every 10 daysBlood Sugar Diagnostic (True Metrix Glucose Test Strip) stripActive0.Rpogo8476Rdlhigzf 2024 8:49amType 1 diabetes mellitus with hyperglycemia Type 1 diabetes mellitus with hyperglycemia Dx E10.9 defer to insurance preferredAs directed test blood sugar four times dailyInsulin Pump Cart,Auto,Bt,G6/7 (Omnipod 5 G6-G7 Pods (Gen 5)) cartridge Active0.Eblme839Ixhnmjpy 2024 8:40amType 1 diabetes mellitus with hyperglycemia Type 1 diabetes mellitus with hyperglycemiaUse to deliver insulin change every 1.5 daysInsulin Lispro 100 unit/mL wkapjpccJeropx9XONJMSOpl as Fhrvhskv3894 May 25, 2025 8:41amType 1 diabetes mellitus with hyperglycemia Type 1 diabetes mellitus with hyperglycemiasubcutaneously use as directed; INJECT INSULIN SUBCUTANEOUSLY PER PUMP (MAX DAILY DOSE 125 UNITS)Unknown Promethazine 25 mg DwktnzXmeshauwbgpx92RQXQU7E as needed for Spaokz321Mlkqspd 2021 12:00amApril 2021 8:03pmInsulin Lispro 100 unit/mL solution DiscontinuedApril 2021 11:00pmApril 2024 1:33pmadjusted via pump Multivitamin ZepzvtsLfehgitedekc7SPFICYvdgyXuald 2021 11:00pmSeptember 2024 7:19amZinc Tablet,DsjvzeyaPwpfmkkldgqk1LZGISBlwbjPdqez 2021 11:00pmApril 2024 1:33pmMecobalamin (Vitamin B12) (B12 Active) 1,000 mcg Tablet,ChewableDiscontinuedMCGPODailyApril 2021 11:00pmMarch 2022 10:34amLevofloxacin 750 mg psclegYdmfkrtejvyk707ANJOLngcz61Shvpi 2021 11:00pmMarch 2022 10:35amInsulin Lispro 100 unit/mL solutionDiscontinued1 sliding scale doseCNTSUBQINFUse as DirectedApril 2024 1:32pmMay 2024 9:59amadjusted via pumpGabapentin 100 mg qgbjcxkPamxcsmnxazn327ICPTMcome at 0730, 1530, 2330March 2022 12:00amJune 2022 10:37amFerrous Sulfate (Ferosul) 325 mg (65 mg iron) avnvmzVngyjmcdustb853BCEOZfzhkLqhyc 2022 12:00amApril 2024 1:31pmTramadol 50 mg xkifdvDqbfxziqgylj16LGYTF2O as needed for kglq8622Orhr 2022 11:00pmJune 2022 10:38amCholecystitis Cholecystitis, unspecifiedTramadol 50 mg pyplaeQxkjwxkcajzz61VJQWU6A as needed for vybd9222Fulp 2022 11:00pmApril 2024 1:33pmCholecystitis Cholecystitis, unspecifiedBlood-Glucose Meter (True Metrix Air Glucose Meter) miscDiscontinued0.RouteApr2024 11:00pmApril 2024 2:03pmAs directed Blood Sugar Diagnostic (True Metrix Glucose Test Strip) stripDiscontinued0.Route September 15, 2024 11:00pmApril 2024 2:03pmAs directedLancets miscDiscontinued 0.RouteSeptember 15, 2024 11:00pmApril 2024 2:03pmAs directedBlood Sugar Diagnostic (True Metrix Glucose Test Strip) stripDiscontinued0.Jgwja3089Cbmmz 2024 1:58pmMay 2024 9:59amDx E10.9 defer to insurance preferredAs directed test blood sugar four times dailyBlood-Glucose Meter (True Metrix Air Glucose Meter) miscActive0.Uzvyt35Pmhvw 2024 2:00pmDx E10.9 defer to insurance preferredAs directed test blood sugar four times dailyLancets misc Active0.Eebvs3463Dcaml 2024 2:00pmDx E10.9 defer to insurance preferredAs directed test blood sugar four times dailyBlood Sugar Diagnostic (True Metrix Glucose Test Strip) stripDiscontinued0.Sfhhd7507Cah 7th, 2025 9:53amDecember 2024 8:50amType 1 diabetes mellitus with hyperglycemia Type 1 diabetes mellitus with hyperglycemia Dx E10.9 defer to insurance preferredAs directed test blood sugar four times dailyInsulin Lispro 100 unit/mL ewvmhcouXlgfqfnebcsu2CZSPBPBVIQHey as Directed October 14, 2024 9:56amSeptember 2024 7:18amType 1 diabetes mellitus with hyperglycemia Type 1 diabetes mellitus with hyperglycemiavia continuous subcutaneous infusion use as directed; adjusted via pumpInsulin Lispro 100 unit/mL solution Lnzxhhmrkkgn5BWXUQFSki as Sbyedlgn406Nmj 2024 11:00pmJune 2024 7:44am Type 1 diabetes mellitus with hyperglycemia Type 1 diabetes mellitus with hyperglycemiasubcutaneously use as directed; INJECT INSULIN SUBCUTANEOUSLY PER PUMP (MAX DAILY DOSE 80 UNITS)Blood-Glucose Sensor (Dexcom G7 Sensor) deviceDiscontinued0.Yifjr82HzlOctober 27, 2024 11:00pm January 21, 2025 3:31pmType 1 diabetes mellitus with hyperglycemia Type 1 diabetes mellitus with hyperglycemiaUse with Omnipod 5 to manage BG change every 10 daysInsulin Pump Cart,Auto,Bt,G6/7 (Omnipod 5 G6-G7 Pods (Gen 5)) cartridgeDiscontinued0.Izjsw375PlqOctober 27, 2024 11:00pmAugust 2024 3:31pmType 1 diabetes mellitus with hyperglycemia Type 1 diabetes mellitus with hyperglycemiaUse to deliver insulin change every 3 daysPrenatal 22-Vaqn-Dvfuku 9-Dha 31 mg iron- 1 mg-200 mg bfwkshoZmdayn1OTBEG DailyJuly 2024 11:00pmUnknownPsyllium Husk (Fiber (Psyllium Husk)) 0.4 gram capsuleActive0.4GMPODailyJuly 2024 11:00pmUnknownBlood-Glucose Sensor (Dexcom G7 Sensor) deviceDiscontinued0.RouteSeptember 2025 11:00pmNovember 2024 8:50amAs directedInsulin Lispro 100 unit/mL solutionDiscontinued0 SUBCUTUse as Uotoccsc504Qnqaaxqqr 30th, 2025 8:03amSeptember 2024 8:07am Type 1 diabetes mellitus with hyperglycemia Type 1 diabetes mellitus with hyperglycemiasubcutaneously use as directed; INJECT INSULIN SUBCUTANEOUSLY PER PUMP (MAX DAILY DOSE 100 UNITS)Insulin Pump Cart,Auto,Bt,G6/7 (Omnipod 5 G6-G7 Pods (Gen 5)) cartridgeDiscontinued0.Hdiga659 March 09, 2025 8:06amDecember 2024 8:42amType 1 diabetes mellitus with hyperglycemia Type 1 diabetes mellitus with hyperglycemiaUse to deliver insulin change every 3 daysInsulin Lispro 100 unit/mL fydiewzyIvmripbtlpsb4DFIVDYIrx as Jiwqaqih361 March 09, 2025 8:06amDecember 2024 8:42amType 1 diabetes mellitus with hyperglycemia Type 1 diabetes mellitus with hyperglycemiasubcutaneously use as directed; INJECT INSULIN SUBCUTANEOUSLY PER PUMP (MAX DAILY DOSE 100 UNITS) Procedures Procedure Date Performed Status Urine Culture May 28, 2025 active Urine Culture March 06, 2025 completed Relevant Diagnostic Tests and/or Laboratory Data Laboratory Results Test Collection Date/Time Result Date/Time Result Interpretation Reference Range Result Comment Performing Site Bedside Glucose March 09, 2025 7:16am February 7:48am 163 Corrected White Blood CountSeptember 2024 8:54pmSeptember 2024 9:12pm11.4 10*3/uL3.8-11.6FMercy [facility] [id number] [address] [facility] [address]Bldnkpbcdkr WBC CountSeptember 2024 8:54pmSeptember 2024 9:12pm11.4 10*3/uL3.8-11.6FMercy Health [facility] [id number] [address] [facility] [address]Kew Blood CountSeptember 2024 8:54pmSeptember 2024 9:12pm4.36 10*6/uL3.60-5.00[facility] [id number] [address] [facility] 485[address]KbctrjdnwrCttsilgdy 2024 8:54pmSeptember 2024 9:12pm13.1 g/dL11.8-15.4FMercy Health St[facility] [id number] [address] [place] [address] 53077WrlfbkipcxKnlmvbzjm 2024 8:54pmSeptember 2024 9:12pm38.5 %34.0-46.4FMercy Health [facility] [id number] [address] [facility] 79854Pkbe Corpuscular VolumeSeptember 2024 8:54pmSeptember 2024 9:12pm88.3 mN66-836FpoctxqucSt. [facility] [id number] [address] [facility] 529[address]Fjau Corpuscular HemoglobinSeptember 2024 8:54pmSeptember 2024 9:12pm30.1 pg24.7-34.3FMercy [facility] [address] [id number] [address] [place] [address] 23280Bcsf Corpuscular Hemoglobin ConcentSeptember 2024 8:54pm March 06, 2025 9:12pm34.0 g/dL32.0-35.0[facility] [id number] [address] [place] [address]69[address]Ead Cell Distribution WidthSeptember 2024 8:54pmSeptember 2024 9:12pm13.5 %11.9-15.3FMercy Health St[facility] [id number] [address] [place] [address] 290[address]Ckeshkhi CountSeptember 2024 8:54pmSeptember 2024 9:23iz579 10*3/uY479-717AuovsagfjSt. [facility] [id number] [address] [place] [address] 94604Slju Platelet VolumeSeptember 2024 8:54pmSeptember 2024 9:12pm8.6 fL6.3-10.7FMercy Health [address] [id number] [address] [place] [address] 77628Kecqkokq Distribution WidthSeptember 27th, 2025 8:54pmSept2024 9:12pm16.87 %0.00-20.00[facility] [id number] [address] [facility] [address]Xzicydjdhtd (%) (Auto)March 06, 2025 8:54pmSept2024 9:12pm80.3 %.[facility] [id number] [address] [facility] 233[address]Cjtffxfspvp (%) (Auto)March 06, 2025 8:54pmSept2024 9:12pm13.2 %.[facility] [id number] [address] [facility] 20593Bpxnslufq (%) (Auto)March 06, 2025 8:54pmSept2024 9:12pm5.4 %.[facility] [id number] [address] [facility] 85772Avehxsebepd (%) (Auto)March 06, 2025 8:54pmSept2024 9:12pm0.5 %.[facility] [id number] [address] [facility] 99727Kuksooqgi (%) (Auto)March 06, 2025 8:54pmSept2024 9:12pm0.6 %.[facility] [id number] [address] [facility] 59039Htyrvmivo RBC Relative Count (auto)March 06, 2025 8:54pm March 06, 2025 9:12pm0.1 /100{WBC}0-0.5FMercy Health St[facility] [id number] [address] [facility] 40[address]Copbpojkdkw # (Auto)March 06, 2025 8:54pmSept2024 9:12pm9.2 10*3/uLAbove high normal1.8-7.7FMercy Health St[facility] [id number] [address] [facility] 516[address]Jyldpzxfnee # (Auto)March 06, 2025 8:54pmSept2024 9:12pm1.5 10*3/uL1.00-4.8[facility] [id number] [address] [facility] 069[address]Pcqljrruf # (Auto)March 06, 2025 8:54pmSeptember 2024 9:12pm0.6 10*3/uL0.0-0.8[facility] [id number] [address] [facility] 80971Fdvkwuqbhbe # (Auto)March 06, 2025 8:54pmSeptember 2024 9:12pm0.1 10*3/uL0.0-0.45[facility] [id number] [address] [facility] 40305Vljkfvrrg # (Auto)March 06, 2025 8:54pmSeptember 2024 9:12pm0.1 10*3/uL0.0-0.2FMercy Health St[facility] [id number] [address] [facility] 30980Tmmtu ColorSeptember 2024 9:04pmSeptember 2024 9:12pmLight-yellowYellowSt. Vincent Hospital [facility]tr [id number] [address] [facility] [address]96[address]Netiz AppearanceSeptember 2024 9:04pmSeptember 2024 9:12pmCloudyAbnormal (applies to non-numeric results)ClearSt. Vincent Hospital Ctr [id number] [address] [facility] 05526Xcdbj Specific GravitySeptember 2024 9:04pmSeptember 2024 9:12pm1.0071.001-1.030[facility] [id number] [address] [facility] 66659Avpqc pHSeptember 2024 9:04pmSeptember 2024 9:12pm 7.05.0-9.0[facility] [id number] [address] [facility] 48631Lyizq Leukocyte EsteraseSeptember 2024 9:04pmSeptember 2024 9:12pm4+Above high normalNegativeSt. [facility] Hospital [facility] [id number] [address] [facility] 48880Qliks NitriteSeptember 2024 9:04pmSeptember 2024 9:12pmNegativeNegativeSt. [facility] Hospital [facility] [id number] [address] [facility] 328[address]Tkexx ProteinSeptember 2024 9:04pmSeptember 2024 9:12pmNegative mg/dLNegativeSt. Vincent Hospital [facility]tr [id number] [address] [facility] 489[address]Osino Glucose (UA)March 06, 2025 9:04pmSeptember 2024 9:12pmNormal mg/dLNormalSt. Vincent Hospital [facility]tr [id number] [address] [facility] 29384Yngao KetonesSeptember 2024 9:04pmSeptember 2024 9:12pmNegativeNegativeSt. [facility] Hospital [facility] [id number] [address] [facility] 565[address]Nvael UrobilinogenSeptember 2024 9:04pmSeptember 2024 9:12pmNormal mg/dLNormalSt. Vincent Hospital [facility]tr [id number] [address] [facility] 61078Vuhmk BilirubinSeptember 2024 9:04pmSeptember 2024 9:12pmNegativeNegativeSt. [facility] Hospital [facility] [id number] [address] [facility] 15594Fnlkr Occult BloodSeptember 2024 9:04pmSeptember 2024 9:12pmNegativeNegativeSt. [facility] Hospital [facility] [id number] [address] [facility] 28159Tpafg RBCSeptember 2024 9:04pmSeptember 2024 9:18pm 10-19 [HPF]Above high normal0-4FMercy Health St. [facility] [id number] [address] [facility] 71117Rmakj WBCSeptember 2024 9:04pmSeptember 2024 9:18pm 20-49 [HPF]Above high normal0-4FMercy Health St. [facility] [id number] [address] [facility] 28362Rilff WBC ClumpsSeptember 2024 9:04pmSeptember 2024 9:18pmFew [LPF]Above high normalNone [facility] [id number] [address] [facility] 93144Tiwtl Squamous Epithelial CellsSeptember 2024 9:04pm March 06, 2025 9:64ev78-868 [HPF]Above high normal0-2FMercy Health St. [facility] [id number] [address] [facility] 40153Ugifc Calcium Oxalate CrystalsSeptember 2024 9:04pm March 06, 2025 9:18pm1+ [HPF][facility] [id number] [address] [facility] 08635Qrpgg BacteriaSeptember 2024 9:04pmSeptember 2024 9:18pm2+ [HPF]Above high normalNone [facility] [id number] [address] [facility] 35128Geovg Hyaline CastsSeptember 2024 9:04pmSeptember 2024 9:90el6-6 [LPF]0-8[facility] [id number] [address] [facility] 61265Jamho MucusSeptember 2024 9:04pmSeptember 2024 9:18pmRare [LPF][facility] [id number] [address] [facility] 75742Umwug Yeast (Budding)March 06, 2025 9:04pmSeptember 2024 9:18pm2+ [HPF]Above high normalNone [facility] [id number] [address] [facility] 51404Wwynsyu LevelSeptember 2024 8:54pmSeptember 2024 9:31pm84 mg/cR77-991PXT recommended reference rangeRandom Glucose Reference Range is dependent on time and content of last meal. Glucose of more than 200 mg/dL in a nonstressed, ambulatory subject supports the diagnosisof Diabetes Mellitus.[facility] [id number] [address] [facility] 68976Zatcz Urea NitrogenSeptember 2024 8:54pmSeptember 2024 9:31pm8 mg/dL7-25[facility] [id number] [address] [facility] 97667RzvqrcsttlRzrlwxxfr 2024 8:54pmSeptember 2024 9:31pm0.54 mg/dLBelow low normal0.60-1.20[facility] [id number] [address] [facility] 14731Owlsohetw GFR (CKD-EPI)March 06, 2025 8:54pmSeptember 2024 9:31pm> 60.0 mL/MinSt. Vincent Hospital Ctr [id number] [address] [facility] 09796Zyoqrq LevelSeptember 2024 8:54pmSeptember 2024 9:59lk845 mmol/N673-793RahweaooaSt. Vincent Hospital [facility]tr [id number] [address] [facility] 483[address]Ybbqyhwdn LevelSeptember 2024 8:54pmSeptember 2024 9:31pm4.1 mmol/L3.5-5.1FMercy Health St. [facility] [id number] [address] [facility] 12033Bkewmwmp LevelSeptember 2024 8:54pmSeptember 2024 9:70qo434 mmol/B70-347TkauxpowqSt. [facility] Hospital [facility] [id number] [address] [facility] 47602Mlzequ Dioxide LevelSeptember 2024 8:54pmSeptember 2024 9:31pm28.0 mmol/L21.0-31.0[facility] [id number] [address] [facility] 23258Qsnno GapSeptember 2024 8:54pmSeptember 2024 9:31pm 8.1 mEq/L6.0-15.0[facility] [id number] [address] [facility] 01854Ghngina LevelSeptember 2024 8:54pmSeptember 2024 9:31pm9.3 mg/dL8.6-10.3FMercy Health St. [facility] [id number] [address] [facility] 39171Wamlu ProteinSeptember 2024 8:54pmSeptember 2024 9:31pm7.3 g/dL6.4-8.9[facility] [id number] [address] [facility] 13630QkglvvyLdjfyjxns 2024 8:54pmSeptember 2024 9:31pm 3.9 g/dL3.5-5.7FMercy Health St. [facility] [id number] [address] [facility] 23502PurvigltJiefuoejx 2024 8:54pmSeptember 2024 9:31pm 3.4 g/dLSt. Vincent Hospital [facility] [id number] [address] [facility] 61340Nqfsxmi/Globulin RatioSeptember 2024 8:54pmSeptember 2024 9:31pm1.1FMercy Health [address] [id number] [address] [facility] 56141Oomcb BilirubinSeptember 2024 8:54pmSeptember 2024 9:31pm0.3 mg/dL0.3-1.0[facility] [id number] [address] [facility] 66457Begvucqam Amino Transf (AST/SGOT)March 06, 2025 8:54pm March 06, 2025 9:31pm48 U/LAbove high fytcmi14-66OnqauebuzSt. Vincent Hospital Ctr [id number] [address] [facility] 72890Zllotny Aminotransferase (ALT/SGPT)March 06, 2025 8:54pm March 06, 2025 9:31pm74 U/LAbove high normal7-52[facility] [id number] [address] [facility] 27704Kgrhnumk PhosphataseSeptember 2024 8:54pmSeptember 2024 9:31pm58 U/I42-839FjkztdjkeSt. Vincent Hospital [facility] [id number] [address] [facility] 33043Shtdz Creatine KinaseSeptember 2024 8:54pmSeptember 2024 9:31pm35 U/E06-451CtumaxbqzSt. [facility] Hospital [facility] [id number] [address] [facility] 23584Cosjxkjx I High SensitivitySeptember 2024 8:54pmSept2024 9:39pm5 ng/L0-15The Troponin units of report have been changed to meet the Chest Pain Accreditation requirement, element EC5.M1l2. Troponin units are changed from pg/ml to ng/L. Also, the decimal is removed and results are in whole numbers.[facility] [id number] [address] [facility] 73820Yjvyceeb Creatinine Clearance (ChemSeptember 2024 8:54pm March 06, 2025 9:52iw449.33[facility] [id number] [address] [facility] 84802Fccqotx GlucoseSeptember 2024 10:41pmSept2024 10:42pm62 mg/dLRandom Glucose Reference Range is dependent on time and content of last meal. Glucose of more than 200 mg/dL in a nonstressed, ambulatory subject supports the diagnosis of Diabetes Mellitus.Point of Care testingBedside Glucose CommentSeptember 2024 7:07pmSept2024 7:23gyGta0: cleaned meterPoint of Care testing Microbiology Results Procedure Source Result Collection Date/Time Result Date/Time Result Comment Performing Site Urine Culture Urine, Clean-Voided Midstream Strep agalactiae - (group b) March 06, 2025 10:04pm March 09, 2025 7:19am [facility] [id number] [address] [facility] [address] Vital Signs Vital Reading Result Reference Range Collection Date/Time Height 59 [in_i] March 06, 2025 7:25vdKrvbme95.13 kgSept2024 7:08pmBody Frbdtfjqyqh73.1 [degF]97.6-99.0Sept2024 7:08pmHeart Rate87 /min 60-100Sept2024 9:47pmRespiratory rate18 /ttj21-79Amewaiwkf 27th, 2025 9:45pmOxygen saturation by Pulse ddufxbrn94 %95-100pt2024 9:47pmBP Zmghqzdu558 mm[Hg]100-140September 2024 9:45pmBP Xblenkxkr63 mm[Hg]60-100September 2024 9:02hqFpiutq56 [in_i]March 09, 2025 7:03fyEgqpsf45.40 kgSept2024 7:13amHeart Rate95 /zcr56-406Obqamvkey 30th, 2025 7:13amRespiratory rate18 /obp47-23Lliengayn 30th, 2025 7:13amOxygen saturation by Pulse ybmsdimy14 %95-100Sept2024 7:13amBP Wezaqujh819 mm[Hg]100-140Sept2024 7:13amBP Ghlunnnak29 mm[Hg]60-100Sept2024 7:13amBMI (Body Mass Index)29.9 kg/a4Zjcfkcxts2024 7:13am Advance Directives Advance Directive Response Recorded Date/ Time Advance Directives No August 28 8:42am Insurance Providers Guarantor Elizabeth Parker Address [address] [place] [phone] Info.Home Phone: Coverage Status Update:2025 Payer Group Member ID Coverage Type Subscriber Relationship to Subscriber Effective Date Expiration Date [facility] Employees [id number] Druckenmiller , P M Id: [id number] [address] [place] [phone] Home Phone: Email: [email or web address] FRANCA/HARI Id: [id number] Seamon , P Id: [id number] [address] [place] [phone] Home Phone: Email: none Encounters Encounter Location(s) Arrival/Admit Date Discharge/Departure Date Discharge/Departure Disposition Provider(s) Departed Emergency -Emergency Room March 06, 2025 7:50pm March 06, 2025 11:50pm Discharged to home care or self care (routine discharge) Departed Physician/Provider Office Visit-FCCCSept2024 8:08am March 09, 2025 8:49amDischarged to home care or self care (routine discharge)Carissa Queen , APRNDeparted Referred-[facility] May 28, 2025 12:44pmDecember 2024 12:45pmDischarged to home care or self care (routine discharge)Kolton Cao Recent Diagnosis Onset Date Admit Date Dietary counseling and surveillance Unknown March 09, 2025 8:08am Hyperlipidemia, unspecified Unknown Feb 8:08am Insulin pump in place Unknown March 09, 2025 8:08am 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 Uses [employer]'s glucometer or checks blood glucose at work. [...] 1 unit for every 12 carbohydrates. Target tgynt120 mg/dL threshold correction 125 mg/dL. 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 New to [facility], new to diabetes program. Previously [...] and supplies d/t employee diabetes program at [facility] [place]. wear CGM at all times. Lipids UMIC [...] scheduled test information is unavailable Pending Tests Test Name Ordered Date Scheduled Date Urine Culture May 28, 2025 12:44pm Future Visits Future appointment information is unavailable Future Procedures Procedure Name Ordered Date Scheduled Date Urine Culture May 28, 2025 1:03pm Decem rafiq 2024 12:44pm Future Medications Future medication information is unavailable Patient Instructions Instruction Admit Date Checking your blood sugar at home Low blood sugar in adults - ED discharge instructionsSeptember 2024 7:50pm
--- OUTSIDE RECORDS SUMMARY | 2025-05-30 22:21 | XMS_ITS | Encounter Summary ---
Author Organization [facility] s tem Address [id number] [address] [place] [address] Care Team Providers Care Intake Counselor Name Role Phone JenniferDru April MUNGUIA Primary Care Provider [phone] Encounter Details DateTypeDepartmentCare Team (Latest Contact Info)Eutnmtjhtgx25/08/2025Travel Social History Tobacco UseTypesPacks/DayYears UsedDateSmoking Tobacco: NeverSmokeless Tobacco: NeverAlcohol UseStandard Drinks/WeekCommentsYes0 (1 standard drink = 0.6 oz pure alcohol)socialOHIOHEALTH [facility] UtilitiesAnswerDate RecordedIn the past 12 months [...] care, and heating?Not hard at all02/17/2025PHQ-2AnswerDate RecordedTotal Esuko500[facility]inen[facility] [place] of Occupational Health - Occupational Stress QuestionnaireAnswerDate [...] and direction in my life.Agree02/17/2025Estimated Date of HyqsxkxmMfhklsksIzq96/27/2026Based on last menstrual period of 10/30/2024Sex and Gender InformationValueDate RecordedSex Assigned at FcchtSejcqu00/22/2025 1:51 AM EDTLegal SexFemale 01/13/2015 11:58 AM EDTGender IiducqghVfxonr31/22/2025 1:51 AM EDTSexual OrientationNot on filedocumented as of this encounter Plan of Treatment DateTypeDepartmentCare Team (Latest Contact Info)Wljhzdnhbpc65/02/2026 3:30 PM ESTAppointment [facility] [address] [place] [address] documented as of this encounter Visit Diagnoses Not on filedocumented in this encounter Additional Health Concerns AssessmentNoted TimePHQ-9 Depression Total Score: 8:31 AM ESTA Body Mass Index follow-up plan has been documented for the ncwgveh4506/12/2023 4:35 PM ESTdocumented as of this encounter Care Teams Team MemberRelationshipSpecialtyStart DateEnd Date Dru Rodriguez DO [address] [place] [address] PCP - General01/01/17documented as of this encounter
--- OUTSIDE RECORDS SUMMARY | 2025-05-30 22:21 | XMS_ITS | Encounter Summary ---
Author Organization [facility] Address [address] [place] [address] Care Team Providers Care Machine Filler Name Role Phone Dru Rodriguez DO Primary Care Provider [phone] Dru Rodriguez DO Unavailable [phone] Encounter Details DateTypeDepartmentCare Team (Latest Contact Info)Tffumjflorn49/19/2025External Result Encounter [facility] External Department Unsolicited Kolton Cao DO [address] [place] [address] Social History Tobacco UseTypesPacks/DayYears UsedDateSmoking Tobacco: NeverSmokeless [...] week03/11/2023How often do you attend sabianism or spiritism services?1 to 4 times per year03/11/2023o you belong to any clubs or organizations such as sabianism groups, unions, fraternal or athletic laura ups, or school groups?No03/11/2023How often do you attend meetings of the clubs or organizations you belong to?Never03/11/2023re you , , , , never , or living with a partner?Ygczhaw6203/11/2023 AUDIT-CAnswerDate RecordedQ1: How often do you have a drink containing alcohol? Monthly or less03/11/2023Q2: How many drinks containing alcohol do you have on a typical day when you are drinking?3 or Q3: How often do you have six or more drinks on one occasion?Less than qyprjus8103/11/2023Overall Financial Resource Strain (CARDIA)AnswerDate RecordedHow hard is it for you to pay for the very basics like food, housing, medical care, and heating?Somewhat hard 03/11/2023HQ-2AnswerDate RecordedPatient Health Questionnaire-2 Score0 03/25/2025[facility] [place] of Occupational Health - Occupational Stress QuestionnaireAnswerDate [...] slept in ashelter (including now)?No03/11/2023Estimated Date of GyesffmcMkuqxsvyRuy04/27/2026ased on last menstrual period of 10/30/2024Sex and Gender InformationValueDate RecordedSex Assigned at ExycfXtfzkt89/01/2023 1:10 PM EDTLegal WxzYesxme12/15/2023 6:51 PM EDTGender EibstqalHmwouz20/01/2023 1:10 PM EDTSexual UlrdaihflcxIwrmtyiv96/01/2023 1:10 PM EDTdocumented as of this encounter Plan of Treatment DateTypeDepartmentCare Team (Latest Contact Info)Ysdxwipglsh96/22/2025 3:30 PM ESTRoutine [facility] Issac PORTILLO [address] [place] [address] Kolton Cao, [address] [place] [address] 06/16/2025 4:00 PM ESTRoutine [facility] PORTILLO [address] [place] [address] Dixie Gan, FLIGHT ENGINEER INSTRUCTOR [address] [place] [address] NameTypePriorityAssociated DiagnosesDate/TimeUrine cultureMicrobiologyRoutine 05/28/2025 12:44 PM ESTdocumented as of this encounter Goals GoalPatient Goal TypeAssociated ProblemsRecent ProgressPatient-Stated?Author Reminders Care PlanOB RemindersNoOpen Scheduling, Backgrounddocumented as of this encounter Procedures Procedure NamePriorityDate/TimeAssociated DiagnosisCommentsCULTURE, URINE, URDUDOWZbfxqpb27/19/2025 12:44 PM ESTdocumented in this encounter Visit Diagnoses Not on filedocumented in this encounter Additional Health Concerns Active ProblemsNoted DateDiagnosed DateOB Vxdmurhty47/24/2025 documented as of this encounter Care Teams Team MemberRelationshipSpecialtyStart DateEnd Date Dru Rodriguez DO [address] [place] [address] PCP - GeneralFamily Medicine10/22/22 Dru Rodriguez DO [address] [place] [address] PCP - Medical [place] Qwrjlncwzm59/1/2312documented as of this encounter
--- OUTSIDE RECORDS SUMMARY | 2025-05-30 22:21 | XMS_ITS | Encounter Summary ---
Author Organization [facility] Address [address] [place] [address] Care Team Providers Care [employer] English Teacher Name Role Phone Joaquín Rodriguez DO Primary Care Provider [phone]- [phone] Joaquín Rodriguez DO Unavailable [phone] Encounter Details DateTypeDepartmentCare Team (Latest Contact Info)Dtwiunzzbgk31/12/2025Clinisync Result Encounter [facility] External Department Unsolicited Bryant Cao DO [address] [place] [address] Social History Tobacco UseTypesPacks/DayYears UsedDateSmoking Tobacco: NeverSmokeless [...] week03/11/2023How often do you attend gnosticist or yarsani services?1 to 4 times per year03/11/2023o you belong to any clubs or organizations such as gnosticist groups, unions, fraternal or athletic laura ups, or school groups?No03/11/2023How often do you attend meetings of the clubs or organizations you belong to?Never03/11/2023re you , , , , never , or living with a partner?Hdxtqgu5803/11/2023 AUDIT-CAnswerDate RecordedQ1: How often do you have a drink containing alcohol? Monthly or less03/11/2023Q2: How many drinks containing alcohol do you have on a typical day when you are drinking?3 or Q3: How often do you have six or more drinks on one occasion?Less than wputvpl4103/11/2023Overall Financial Resource Strain (CARDIA)AnswerDate RecordedHow hard is it for you to pay for the very basics like food, housing, medical care, and heating?Somewhat hard 03/11/2023HQ-2AnswerDate RecordedPatient Health Questionnaire-2 Score0 03/25/2025[facility] [place] of Occupational Health - Occupational Stress QuestionnaireAnswerDate [...] slept in ashelter (including now)?No03/11/2023Estimated Date of TtsvepsiDcwpsxvbUna82/27/2026ased on last menstrual period of 10/30/2024Sex and Gender InformationValueDate RecordedSex Assigned at OlqpdQwjalo04/01/2023 1:10 PM EDTLegal ViyTghzim72/15/2023 6:51 PM EDTGender YoolghlcNeqlnl90/01/2023 1:10 PM EDTSexual PwmsfvniuzkUqfbtbvm35/01/2023 1:10 PM EDTdocumented as of this encounter Plan of Treatment DateTypeDepartmentCare Team (Latest Contact Info)Sajtleyxdxw53/22/2025 3:30 PM ESTRoutine [facility] Issac PORTILLO [address] [place] [address] Bryant Cao, [address] [place], [place] [address] 06/16/2025 4:00 PM ESTRoutine NOMAislinn PORTILLO [address] [place] [address] Dixie Gan, LIBRARY ASSOCIATE [address] [place] [address] documented as of this encounter Goals GoalPatient Goal TypeAssociated ProblemsRecent ProgressPatient-Stated?Author Reminders Care PlanOB RemindersNoOpen Scheduling, Backgrounddocumented as of this encounter Procedures Procedure NamePriorityDate/TimeAssociated DiagnosisCommentsUS OB BPP W NON-JWWRMV9805/21/2025 8:39 PM EST documented in this encounter Results * US OB BPP W NON-STRESS (05/21/2025 8:39 PM EST)Anatomical Region LateralityModalityOtherSpecimen (Source)Anatomical Location / Laterality Collection Method / VolumeCollection TimeReceived Time05/21/2025 8:39 PM EST Narrative 05/21/2025 8:43 PM EST [facility] ?[address] ? [place] [address] ? Ultrasound Report ? Signed ? Patient: KAELYN SAHW ?MR#: [id number] ?? : 2000 ?Acct:[id number] ?? Age/Sex: 25 / F ?ADM Date: 05/21/25 ?? Loc: US ? Attending Dr: Bryant Cao D.O. ? Ordering Physician: Bryant Cao D.O. ?? Date of Service: 05/21/25 ?? Procedure(s): US OB BPP w non-stress ?? Accession Number(s): [id number] ? cc: Bryant Cao D.O.; JOAQUÍN RODRIGUEZ ? [facility] ? [facility] [address] ? [place] [address] ? Patient Name: ?? KAELYN SHAW ? MRN: [facility]:[id number] ? date: 2000 ?Sex: F ?? Assigned Patient Location: ?? Current Patient Location: ? Accession/Order Number: [id number] ?? Exam Date: 05/21/2025 ??19:56 ?Report Date: [...] Dictation Location: RADIO-PC-29 ? Electronically authenticated by: [id number] ??Y ?? Date: 05/21/2025 ??20:39 ? Dictated By: ?Kaveh Romeo M.D. ? Signed By: ?05/21/252042 ? DD/ 38 ? TD/TT: ? Inbound Call Center Agent: Procedure Note Radiology, Radiologist, MD - 05/21/2025 [place] [address] Ultrasound Report Signed Patient: KAELYN SHAW MMR#: [id number] : 2000Acct:[id number] Age/Sex: 25 / FADM Date: 05/21/25 Loc: US Attending Dr: Bryant Cao D.O. Ordering Physician: Bryant Cao D.O. Date of Service: 05/21/25 Procedure(s): US OB BPP w non-stress Accession Number(s): [id number] cc: Bryant Cao D.O.; JOAQUÍN RODRIGUEZ The [place] [id number] Patient Name: KAELYN SHAW MRN: [id number] date: 2000 Sex: F Assigned Patient Location: US Current Patient Location: Accession/Order Number: [id number] Exam Date: 05/21/2025 19:56 Report Date: 05/21/2025 20:39 At the request of: BRYANT CAO DO Procedure: US OB BPP w non-stress Ultrasound biophysical profile INDICATION: Type 1 diabetes during COMPARISON: 05/14/2025 FINDINGS IMPRESSION: SINGLE LIVE INTRAUTERINE IN CEPHALICPOSITION. HEART RATE 138 BPM. AMNIOTIC FLUID INDEX 12.9 CM. BIOPHYSICALPROFILE SCORE 8/8 Impression dictated by: Kaveh Romeo M.D. 05/21/2025 8:39 PM Dictation Location: [place] [address] Electronically authenticated by: [id number] Y Date: 520:39 Dictated By: Kaveh Romeo M.D. Signed By:05/21/252042 DD/ 38 TD/TT: Inbound Call Center Agent: Authorizing ProviderResult TypeResult StatusCorey Kiley DOCLINISYNC IMAGINGFinal Result documented in this encounter Visit Diagnoses Not on filedocumented in this encounter Additional Health Concerns Active ProblemsNoted DateDiagnosed DateOB Almrirfyi04/24/2025 documented as of this encounter Care Teams Team MemberRelationshipSpecialtyStart DateEnd Date Joaquín Rodriguez DO [address] [place] [address] [facility]/22 Joaquín Rodriguez DO [address] [place] [address] PCP - Medical [place] Mfsmsbexpu30/1/2312documented as of this encounter
--- OUTSIDE RECORDS SUMMARY | 2025-05-30 22:21 | XMS_ITS | Clinical Summary ---
Author Organization [facility] Healthcare Address [address] [place] [address] Care Team Providers Care Claims Technician Name Role Phone Joaquín Dillon DO Primary Care Provider [phone] Joaquín Dillon DO Unavailable [phone] Allergies Active AllergyReactionsCriticalityNoted DateCommentsAmoxicillinAnaphylaxisHigh 05/23/2016 Mouth irritation CompcqebussYrehszmmmmoQzuz50/14/2016 Has since taken without reaction Medications MedicationSigDispense QuantityRefillsLast FilledStart DateEnd DateStatus Continuous Blood Gluc Transmit (Dexcom G6 transmitter) [facility] [place]ications:Type 1 diabetes mellitus without complication (HCC)Inject 1 each under the skin every 3 (three) months. Use as instructed 1 each 3Active insulin glargine (Lantus SoloStar) 100 UNIT/ML pen Indications:Type 1 diabetes mellitus without complication (HCC)inject 22 units subcutaneously once daily 3 mL 4Active Insulin Disposable Pump (Omnipod 5 QmwJ3W8 Pods Gen 5) misc Indications:Type 1 diabetes mellitus without complication (HCC)Inject 1 each under the skin every 3 (three) days CHANGE POD EVERY 3 DAYS DIRECTED 30 each 5Active HumaLOG 100 UNIT/ML solution Indications:Type 1 diabetes mellitus without complication (HCC)USE PER INSULIN PUMP INSTRUCTION MAX OF 80 UNITS DAILY 30 mL 5Active Vit w/Pu-Igsqmyale-MQ (PNV PO) Take by mouthActive Acetone, Urine, Test (Ketone Test) strip check urine FOR ketones with blood glucose greater THAN 250 mg/dLActive aspirin 81 MG EC tablet Take 81 mg by mouth in the morning.5Active cholecalciferol (Vitamin D-3) 1.25 MG (54287 UT) capsule every week5Active Continuous Glucose Sensor (Dexcom G7 Sensor) misc USE WITH OMNIPOD 5 TO MANAGE BLOOD SUGARS AND CHANGE EVERY 10 DAYS01/21/2025 Active doxylamine (Unisom) 25 MG tablet Take 25 mg by mouth 4 (four) times a day as iepgri9301/08/2025tive Baqsimi One Pack 3 MG/DOSE nasal powder Use to treat unresponsive smkqbmqlpvko50/11/2025tive OneTouch Ultra Test test strip USE 1 STRIP TO CHECK GLUCOSE 4 TIMES DAILY10/14/2024tive ondansetron ODT (Zofran-ODT) 4 MG disintegrating tablet DISSOLVE 1 TABLET UNDER THE TONGUE EVERY 8 HOURS NEEDED FOR NAUSEA for up to 10 doses01/08/2025tive promethazine (Phenergan) 25 MG tablet Take 25 mg by mouth every 6 (six) hours if ulspjd8601/08/2025tive pyridoxine (Vitamin B-6) 100 MG tablet Take 100 mg by mouth in the morning.Active Active Problems ProblemNoted DateDiagnosed DateHypoglycemia associated with firmxexx67/30/2025 Mixed obsessional thoughts and acts4PTSD (post-traumatic stress disorder)09/06/2023Type 1 diabetes mellitus without yokshvgcmmtnj99/28/2023 Assessment & Plan (03/11/2024 7:46 PM EDT): [...] with hypoglycemia and without coma02/04/2023ulging lumbar disc11/08/2022hronic iwdlayd9911/08/2022Lumbago with sciatica, left side 11/08/20221301Wkdepucs99/01/2023iliary /01/2023eneralized anxiety mnhtdxab37/25/2017Panic disorder without hvyddanhlsh43/25/2017Celiac disease in pediatric ojgezls5405/23/2016Mild intermittent wkoboh6805/23/2016Diabetes type 1, wgkojoqlit89/18/2011Estimated Date of XxcceevrIxyzawgkXvg87/27/2026ased on last menstrual period of 10/30/2024 Resolved Problems ProblemNoted DateDiagnosed DateResolved DateChronic bamgykcrzubbc31/22/2023 08/05/2023lood wjtlpfy06Hypoglycemia due to type 1 diabetes kpsvoejl57Other chronic painRight upper quadrant painiabetic ketoacidosis associated with type 1 diabetes eizzgqkw39cute renal zjyfsdjhwzpmm99/11/2017 08/05/2023Mechanical breakdown of insulin pumpType 1 diabetes mellitus with ketoacidosis without coma Encounters DateTypeDepartmentCare NtneYtjriznqtwk00/19/2025External Result Encounter [facility] External Department Unsolicited Kiley, Bryant, DO 05/28/2025linisync Result Encounter NOMS External Department Unsolicited Bryant aCo, DO 05/28/2025Telephone [facility] [place] [address] Bryant Cao, DO 05/21/2025linisync Result Encounter NOMS External Department Unsolicited Bryant Cao, DO 05/18/2025 2:40 PM ESTRoutine [facility] [place] [address] Katharine Cummins PA 28 weeks gestation of ([facility]); Type 1 diabetes mellitus during , antepartum ([facility]); Third trimester ([facility])05/18/2025amboo [place] [address] Katharine Cummins PA 05/14/2025linisync Result Encounter NOMS External Department Unsolicited Bryant Cao, DO 05/12/2025Telephone [facility] [place] [address] Nicolasa Bailey MA 04/27/2025 9:40 AM [place]out[place] [address] Bryant Cao, DO Hospital discharge follow-up; Second trimester ([facility]); 25 weeks gestation of ([facility]); UTI drvasamw53/18/2025amboo [place] [address] Bryant Coa, DO 04/26/2025Patient Outreach [facility] [address] [place] [phone] Patria Woods LPN 04/26/2025Telephone [facility] [place] [facility] [address] [place] [address] Stella Webb MA 04/23/2025Telephone [facility] [place] [facility] [address] [place] [address] Cindi Jacinto LPN 5Clinisync Result Encounter NOMS External Department Unsolicited Bryant Cao, DO 04/14/2025bstract [facility] [address] [place] [address] Bryant Cao, DO 04/08/2025 1:50 PM EDTRoutine NOMS [facility]BDIAN [address] [place] [address] Katharine Cummins PA Second trimester ([facility]); 22 weeks gestation of ([facility]); Yeast /30/2025Patient Outreach [facility] [address] [place] [address] Aline Dudley, BRANDT 03/30/2025Orders Only [facility] [address] [place] [phone] Kristopher Calvo, OD 03/25/2025 8:45 AM EDTOffice Visit [facility] [address] [place] [address] Joaquín Dillon, Routine general medical examination at a health care facility (Primary Dx); Generalized anxiety disorder; Celiac disease in pediatric patient (HCC); Mild intermittent asthma, unspecified whether complicated (HCC)03/25/2025Orders Only [facility] [address] [place] [address] Joaquín Dillon, 03/25/2025[facility] [address] [place] [address] TeresaLesa linaresBIBI 5Bamboo flowsheet [facility] [place] [facility] [address] [place] [address] RonyJoaquín lozada April, DO 03/25/20255872Zxxsuu88/14/2025 8:50 AM EDTRoutine NOMS [facility] [address] [place] [address] Bryant Cao, Second trimester ([facility]); 20 weeks gestation of ([facility]); Type 1 diabetes mellitus during , antepartum ([facility])03/23/2025 Abstract [facility] [address] [place] [address] Bryant Cao, 5Bamboo flowsheet [facility] [address] [place] [address] [place] [phone] Bryant Cao, 03/20/2025linisync Result Encounter NOMS External Department Unsolicited Bryant Cao, 03/08/2025Patient Outreach [facility] [address] [place] [address] Aline Dudley RN from Last 3 Months Immunizations ImmunizationAdministration DatesNext SraFBR572774RRrE07/23/2004DTaP, Ckivcyinsnr02/13/2006,11/24/2002,2001,2001HPV, Quadrivalent 08/27/2013,08/21/2013,04/06/2013,03/02/2013Hep B, Adolescent or Pediatric 11/24/2002,2001,2001HiB, jtyuwermafl44/17/2003,2001,2001 Hib (PRP-T)03/02/2004IPV1,12/20/2005,2001Influenza, injectable, upoaexyrowgh77/26/2021Influenza, injectable, quadrivalent, preservative free 06/12/2023,05/11/2022Influenza, seasonal, injectable, preservative free 03/17/2025,03/18/2024MMR1,12/20/2005,11/24/2002Meningococcal MCV4P 01/22/2018,03/02/2013PPD Test06/12/2023,06/05/2023,05/18/2022,05/11/2022 Pneumococcal Conjugate PCV 7008/05/2001Polio, Yeshzmzoous63/17/2003,2001 Tdap107/31/2022,03/02/20130613Tgcetbzbf17/21/2023,03/02/2013,03/18/2008,12/20/2005 Family History Medical HistoryRelationNameCommentsArthritisFatherJohn SeamonAsthmaFatherJohn SeamonStrokeMaternal GrandmotherCynthia HicksDrug abuseMotherKristy SeamonCancer OtherStrokeOtherStrokePaternal GrandfatherDiabetesSister 2Jozlynn SeamonRelation HeyfFowafoMtrkkqmtAmrycjgm9CrdcliTjky SeamonAliveMaternal GrandmotherCynthia HicksMotherKristy SeamonDeceasedOtherHalf BrotherPaternal GrandfatherSister 1x2 [...] week03/11/2023How often do you attend jew or scientology services?1 to 4 times per year03/11/2023o you belong to any clubs or organizations such as jew groups, unions, fraOnset Technology or athletic laura ups, or school groups?No03/11/2023How often do you attend meetings of the clubs or organizations you belong to?Never03/11/2023re you , , , , never , or living with a partner?Nkopubs6503/11/2023 AUDIT-CAnswerDate RecordedQ1: How often do you have a drink containing alcohol? Monthly or less03/11/2023Q2: How many drinks containing alcohol do you have on a typical day when you are drinking?3 or Q3: How often do you have six or more drinks on one occasion?Less than detqnlr7603/11/2023Overall Financial Resource Strain (CARDIA)AnswerDate RecordedHow hard is it for you to pay for the very basics like food, housing, medical care, and heating?Somewhat hard 03/11/2023HQ-2AnswerDate RecordedPatient Health Questionnaire-2 Score0 03/25/2025Finblue mountain hospital, inc. [place] of Occupational Health - Occupational Stress [...] steady place to sleep or slept in [facility] (including now)?No03/11/2023Estimated Date of WtnzgaqrPaiwgughRua90/27/2026ased on last menstrual period of 10/30/2024Sex and Gender InformationValueDate RecordedSex Assigned at JrzwgBflqda90/01/2023 1:10 PM EDTLegal LfqDpgicf18/15/2023 6:51 PM EDTGender ZawxilfgOkfjxi53/01/2023 1:10 PM EDTSexual SuvgqoxfxbfFsjxlpkd97/01/2023 1:10 PM EDT Last Filed Vital Signs Vital SignReadingTime TakenCommentsBlood Fbbhofay651/80107/19/2024 2:46 PM EST 134/84- dxydnlpDfoxd0808/16/2025 8:46 AM LYXIxbywhqxnvy65 ??C (96.8 ??F) 03/25/2025 8:46 AM EDTRespiratory Rate--Oxygen Aorsykzlnu76%03/25/2025 8:46 AM EDTInhaled Oxygen Concentration--Cujcwu10.7 kg (171 lb 6.4 oz)05/18/2025 2:46 PM HAISxwlsh063.3 cm (4' 10 )03/25/2025 8:46 AM EDTBody Mass Index35.8203/25/2025 8:46 AM EDT Plan of Treatment DateTypeDepartmentCare Team (Latest Contact Info)Emcyyfwaxmj68/22/2025 3:30 PM ESTRoutine [facility] [address] [place] [address] Bryant Cao DO [address] [place] [address] 06/16/2025 4:00 PM ESTRoutine [facility] [address] [place] [address] Dixie Gan, EVICTION SPECIALIST [address] [place] [address] Health MaintenanceDue DateLast DoneCommentsPneumococcal Vaccine: Pediatrics (0 to 5 Years) and At-Risk Patients (6 to 64 Years) (1 of 2 - PCV)02/12/2020 2001COVID-19 Vaccine ( season)2021, 03/21/2021, 1Diabetes: Hemoglobin A1C61, 12/15/2024, 12/15/2024, Additional history existsDiabetes: Urine Protein Zcyxkkyiq25/20/08366010/27/2024, 11/11/2023, 11/11/2023, Additional history existsDiabetes: Retinopathy Screening 71, 06/30/2019Influenza RjdyqzmImcengjsx48/08/2025, 03/18/2024, 06/12/2023, Additional history exists Goals GoalPatient Goal TypeAssociated ProblemsRecent ProgressPatient-Stated?Author Reminders Care PlanOB RemindersNoOpen Scheduling, Background Procedures Procedure NamePriorityDate/TimeAssociated DiagnosisCommentsUS OB BPP W NON-VYKILF9805/28/2025 11:24 PM EST CULTURE, URINE, WNBEVCRXmqenkt79/19/2025 12:44 PM ESTUS OB BPP W NON-DYNKCT4705/21/2025 8:39 PM EST POCT URINALYSIS PGDDKGPNSzqener79/09/2025 2:51 PM EST 28 weeks gestation of ([facility]) Third trimester ([facility]) US OB BPP W NON-CISZRX5305/14/2025 7:38 PM EST URINARY TRACT INFECTION (HTRX)Xbirjkt0304/27/2025 12:15 PM EST POCT URINALYSIS OBKNRHZUCgrfvmp08/18/2025 9:55 AM EST 25 weeks gestation of ([facility]) US OB XYFLYWHW25/06/2025 8:24 AM EST POCT URINALYSIS FWMVVKQXNdrcffh21/30/2025 2:07 PM EDT Second trimester ([facility]) ALPHA FETOPROTEIN, TUMOR QKRCHWWytdmud77/30/2025 10:01 AM EDT DIABETIC RETINOPATHY SCREENING - OU - BOTH CBUNBxnnuwl27/21/2025 12:15 PM EDT CULTURE, URINE, LDVCUDKScixkot69/15/2025 8:04 AM EDT Missed menses POCT URINALYSIS UZERZCILMqkiers32/14/2025 9:03 AM EDT 20 weeks gestation of ([facility]) URINE CULTURE, UYQOPXIVrvocso01/11/2025 7:28 AM EDT [facility] URINE MICROSCOPIC VRDIOaofmud53/11/2025 7:28 AM EDT ESLVSCMEJryzosq90/11/2025 7:28 AM EDT [facility] UA (CLEAN/CATCH) FOREIGN FOOD COOK SPECIALTY/MICRO IF IND.Trgtetw51/04/2025 7:28 AM EDT HEMOGLOBIN T1NMukgjdq50/08/2025 10:24 AM EDTMICROALBUMIN / CREATININE URINE NDVPJExzqrbm43/20/2025 from Last 3 Months or Most Recently Relevant to Health Maintenance Results * US OB BPP W NON-STRESS (05/28/2025 11:24 PM EST) Only the most recent of3 resultswithin the time period is included. Anatomical RegionLateralityModalityOtherSpecimen (Source)Anatomical Location / LateralityCollection Method / VolumeCollection TimeReceived Time05/28/2025 11:24 PM EST Narrative 05/28/2025 11:27 PM EST [facility] ?[address] ? [place] [id number] ? Ultrasound Report ? Signed ? Patient: KAELYN BANKS ?MR#: [id number] ?? : 2000 ?Acct:[id number] ?? Age/Sex: 25 / F ?ADM Date: 05/28/25 ?? Loc: US ? Attending Dr: Bryant Cao D.O. ? Ordering Physician: Bryant Cao D.O. ?? Date of Service: 05/28/25 ?? Procedure(s): US OB BPP w non-stress ?? Accession Number(s): [id number] ? cc: Bryant Cao D.O.; JOAQUÍN DILLON ? [facility] ? [address] ? [place] [address] ? Patient Name: ?? KAELYN Elizabeth Francisco DARREN ? MRN: [facility]:[id number] ? date: 2000 ?Sex: F ?? Assigned Patient Location: US ?? Current Patient Location: US ?? Accession/Order Number: [id number] ?? Exam Date: 05/28/2025 ??16:19 ?Report Date: 05/28/2025 ??23:24 ? At the request of: ?? BRYANT ??KILEY ??DO ? Procedure: ??US OB BPP w non-stress ? US OB BPP w non-stress ??05/28/2025 5:31 PM ? SIGNS AND SYMPTOMS: ?? 08/06/2025 ?? TYPE 1 DIABETES MELLITUS O24.019 ? PROTOCOL: Transabdominal sonographic imaging of the gravid uterus ? COMPARISON: None ? FINDINGS: ? Estimated gestational age: 30 weeks 0 days ? heart rate: 144 bpm ? Amniotic fluid index: 17.93 cm. ??The deepest vertical pocket measures 6.08 cm. ? Biophysical profile: ? breathing movements: 2/2 ? Gross body movements: 2/2 ? tone: 2/2 ? Amniotic fluid volume: 2/2 ? US/US OB BPP w non-stress ?? IMPRESSION: ? Biophysical profile score: 8/8 ? Impression dictated by: Prashanth Orta M.D. ??05/28/2025 11:24 PM ? Dictation Location: RADIO-PC-17 ? Electronically authenticated by: [id number] ??Y ?? Date: 05/28/2025 ??23:24 ? Dictated By: ?Prashanth Orta M.D. ? Signed By: ?05/28/252326 ? DD/ 2324 ? TD/TT: ? Direct Sales Professional: Procedure Note Radiology, Radiologist, - 05/28/2025 [place] [address] Ultrasound Report Signed Patient: KAELYN BANKS#: [id number] : 2000Acct:[id number] Age/Sex: 25 / FADM Date: 05/28/25 Loc: US Attending Dr: Bryant Cao D.O. Ordering Physician: Bryant Cao D.O. Date of Service: 05/28/25 Procedure(s): US OB BPP w non-stress Accession Number(s): [id number] cc: Bryant Cao D.O.; JOAQUÍN DILLON The [address] [address] Patient Name: KAELYN BANKS MRN: [facility]:[id number] date: 2000 Sex: F Assigned Patient Location: US Current Patient Location: US Accession/Order Number: [id number] Exam Date: 05/28/2025 16:19 Report Date: 05/28/2025 23:24 At the request of: BRYANT CAO DO Procedure: US OB BPP w non-stress US OB BPP w non-stress 05/28/2025 5:31 PM SIGNS AND SYMPTOMS: 08/06/2025 TYPE 1 DIABETES MELLITUS O24.019 PROTOCOL: Transabdominal sonographic imaging of the gravid uterus COMPARISON: None FINDINGS: Estimated gestational age: 30 weeks 0 days heart rate: 144 bpm Amniotic fluid index: 17.93 cm. The deepest vertical pocket measures 6.08cm. Biophysical profile: breathing movements: 2/2 Gross body movements: 2/2 tone: 2/2 Amniotic fluid volume: 2/2 US/US OB BPP w non-stress IMPRESSION: Biophysical profile score: 8/8 Impression dictated by: Prashanth Orta M.D. 05/28/2025 11:24 PM Dictation Location: [place] [address] Electronically authenticated by: [id number] Y Date: 3:24 Dictated By: Prashanth Orta M.D. Signed By:05/28/252326 DD/ 23 TD/TT: Direct Sales Professional: Authorizing ProviderResult TypeResult StatusCorey Kiley DOCLINISYNC IMAGINGFinal [...] Location / LateralityCollection Method / VolumeCollection TimeReceived XmzoAlqdq42/09/2025 2:51 PM EST Narrative Authorizing ProviderResult TypeResult StatusWarren Memorial Hospital TEST ENTER/EDIT ORDERABLESFinal Result * URINARY TRACT INFECTION (HTRX) (04/27/2025 12:15 PM EST)ComponentValueRef RangeTest MethodAnalysis TimePerformed AtPathologist SignatureACINETOBACTER UHBHNOGO972.961 - 24.689 ppm04/28/2025 6:33 AM ESTHealthTrackRx at [facility] ACINETOBACTER BAUMANIINot Zngqlngx01.961 - 24.689 ppm04/28/2025 6:33 AM EST [facility] at LabPortCITROBACTER DEHSTNQE886.000 - 32.015 ppm04/28/2025 6:33 AM ESTHealthTrackRx at LabPortCITROBACTER FREUNDIINot Ecufxbnz02.000 - 32.015 ppm04/28/2025 6:33 AM ESTHealthTrackRx at LabPortENTEROBACTER AEROGENES, DRUJJWY997.000 - 32.290 ppm04/28/2025 6:33 AM ESTHealthTrackRx at LabPortENTEROBACTER AEROGENES, CLOACAENot Jezbasat26.000 - 32.290 ppm 04/28/2025 6:33 AM ESTHealthTrackRx at LabPortENTEROCOCCUS FAECALIS, FAECIUM0 26.000 - 33.043 ppm04/28/2025 6:33 AM ESTHealthTrackRx at LabPortENTEROCOCCUS FAECALIS, FAECIUMNot Pjtmtfuc15.000 - 33.043 ppm04/28/2025 6:33 AM EST [facility] at LabPortESCHERICHIA KXXY813.000 - 28.500 ppm04/28/2025 6:33 AM ESTHealthTrackRx at LabPortESCHERICHIA COLINot Yzmscwge63.000 - 28.500 ppm 04/28/2025 6:33 AM ESTHealthTrackRx at LabPortKLEBSIELLA PNEUMONIAE, OXYTOCA0 23.000 - 31.865 ppm04/28/2025 6:33 AM ESTHealthTrackRx at LabPortKLEBSIELLA PNEUMONIAE, OXYTOCANot Girmzmsj00.000 - 31.865 ppm04/28/2025 6:33 AM EST [facility] at LabPortMORGANELLA NCISLHSH866.961 - 24.689 ppm04/28/2025 6:33 AM ESTHealthTrackRx at LabPortMORGANELLA MORGANIINot Bxopquyn73.961 - 24.689 ppm04/28/2025 6:33 AM ESTHealthTrackRx at LabPortPROTEUS MIRABILIS, VULGARIS0 23.000 - 28.500 ppm04/28/2025 6:33 AM ESTHealthTrackRx at LabPortPROTEUS MIRABILIS, VULGARISNot Ypzispby24.000 - 28.500 ppm04/28/2025 6:33 AM EST [facility] at LabPortPSEUDOMONAS HLLDCNPDYN806.000 - 31.801 ppm04/28/2025 6:33 AM ESTHealthTrackRx at LabPortPSEUDOMONAS AERUGINOSANot Hfpdmacv94.000 - 31.801 ppm04/28/2025 6:33 AM ESTHealthTrackRx at LabPortSTAPHYLOCOCCUS AUREUS0 26.000 - 31.595 ppm04/28/2025 6:33 AM ESTHealthTrackRx at [facility] STAPHYLOCOCCUS AUREUSNot Hgifybpq23.000 - 31.595 ppm04/28/2025 6:33 AM EST [facility] at LabPortSTREPTOCOCCUS AGALACTIAE (GROUP B STREP)026.000 - 32.435 ppm04/28/2025 6:33 AM ESTHealthTrackRx at LabPortSTREPTOCOCCUS AGALACTIAE (GROUP B STREP)Not Ycmavfgo59.000 - 32.435 ppm04/28/2025 6:33 AM ESTHealthTrackRx at LabPortCANDIDA ALBICANS, PARAPSILOSIS, OBOKTCANBG978.000 - 30.347 ppm04/28/2025 6:33 AM ESTHealthTrackRx at LabPortCANDIDA ALBICANS, PARAPSILOSIS, TROPICALISNot Jcpqwejl02.000 - 30.347 ppm04/28/2025 6:33 AM EST [facility] at LabPortCANDIDA AGOASJTU863.000 - 31.618 ppm04/28/2025 6:33 AM ESTHealthTrackRx at LabPortCANDIDA GLABRATANot Mqwlioxx56.000 - 31.618 ppm 04/28/2025 6:33 AM ESTHealthTrackRx at LabPortCANDIDA DLOWDX036.000 - 30.873 ppm04/28/2025 6:33 AM ESTHealthTrackRx at LabPortCANDIDA KRUSEINot Detected 23.000 - 30.873 ppm04/28/2025 6:33 AM ESTHealthTrackRx at LabPortSERRATIA HUSIHIWYIU397.000 - 31.581 ppm04/28/2025 6:33 AM ESTHealth[facility] SERRATIA MARCESCENSNot Vshbouwy08.000 - 31.581 ppm04/28/2025 6:33 AM EST [facility] at LabPortSTREPTOCOCCUS PYOGENES (GROUP A STREP)019.961 - 24.689 ppm04/28/2025 6:33 AM ESTHealthTrackRx at LabPortSTREPTOCOCCUS PYOGENES (GROUP A STREP)Not Ohjaubzu00.961 - 24.689 ppm04/28/2025 6:33 AM ESTHealthTrackRx at LabPortSTAPHYLOCOCCUS EPIDERMIDIS, HAEMOLYTICUS, LUGDUNENSIS, SAPROPHYTICUS (OPEFP428.961 - 24.689 ppm04/28/2025 6:33 AM ESTHealth[facility] STAPHYLOCOCCUS EPIDERMIDIS, HAEMOLYTICUS, LUGDUNENSIS, SAPROPHYTICUS (URINANot Wgkbeftk59.961 - 24.689 ppm04/28/2025 6:33 AM ESTHealth[facility] STAPHYLOCOCCUS EPIDERMIDIS, HAEMOLYTICUS, LUGDUNENSIS, SAPROPHYTICUS (URINA0 19.961 - 24.689 ppm04/28/2025 6:33 AM EST[facility] STAPHYLOCOCCUS EPIDERMIDIS, HAEMOLYTICUS, LUGDUNENSIS, SAPROPHYTICUS (URINANot Jhhofalr58.961 - 24.689 ppm04/28/2025 6:33 AM ESTHealth[facility]Rx [facility] Specimen (Source)Anatomical Location / LateralityCollection Method / Volume Collection TimeReceived StvxJokfp42/18/2025 12:15 PM EST04/28/2025 1:31 AM EST Narrative Authorizing ProviderResult TypeResult StatusCorey Kiley DOLAB BLOOD ORDERABLES Final ResultPerforming OrganizationAddressCity/State/ZIP CodePhone Number [facility] [address] [place] [address] * US OB PLACENTA (04/15/2025 8:24 AM EST)Anatomical RegionLateralityModality OtherSpecimen (Source)Anatomical Location / LateralityCollection Method / VolumeCollection TimeReceived Time04/15/2025 8:24 AM EST Narrative 04/15/2025 8:27 AM EST [facility] ?[address] ? [place], [facility] ? Ultrasound Report ? Signed ? Patient: KAELYN BANKS ?MR#: [id number] ?? : 2000 ?Acct:[id number] ?? Age/Sex: 25 / F ?ADM Date: ?? Loc: [facility] ??250-1 ? Attending Dr: Bryant Cao D.O. ? Ordering Physician: Bryant Cao D.O. ?? Date of Service: 04/14/25 ?? Procedure(s): US OB placenta ?? Accession Number(s): [id number] ? cc: Bryant Cao D.O.; JOAQUÍN DILLON ? [facility] ? [facility] ? [place] [address] ? Patient Name: ?? THOMASJYOTI BANKS ? MRN: [facility]:[id number] ? date: 2000 ?Sex: F ?? Assigned Patient Location: [facility] ?? Current Patient Location: ? Accession/Order Number: [id number] ?? Exam Date: 04/14/2025 ??13:27 ?Report Date: 04/15/2025 ??08:24 ? At the request of: ?? BRYANT ??KILEY ??DO ? Procedure: ??US OB placenta ? ULTRASOUND OB PLACENTA ? CLINICAL DATA: patient in [facility] ? COMPARISON: None ? There is [...] M.D. ??04/15/2025 8:24 AM ? Dictation Location: [place] [address] ? Electronically authenticated by: [id number] ??Y ?? Date: 04/15/2025 ??08:24 ? Dictated By: ?Angela Lo M.D. ? Signed By: ?04/15/25826 ? DD/ 0824 ? TD/TT: ? Direct Sales Professional: Procedure Note Radiology, Radiologist, - 04/15/2025 [place] [address] Ultrasound Report Signed Patient: KAELYN BANKS MMR#: [id number] : 2000Acct:[id number] Age/Sex: Date: Loc: [facility] 250-[address]: Bryant Cao D.O. Ordering Physician: Bryant Cao D.O. Date of Service: 04/14/25 Procedure(s): US OB placenta Accession Number(s): [id number] cc: Bryant Cao D.O.; JOAQUÍN DILLON [place] [id number] Patient Name: KAELYN BANKS MRN: [id number] date: 2000 Sex: F Assigned Patient Location: [facility] Current Patient Location: Accession/Order Number: [id number] Exam Date: 04/14/2025 13:27 Report Date: 04/15/2025 [...] Lo M.D. 04/15/2025 8:24 AM Dictation Location: [place] [address] Electronically authenticated by: [id number] Y Date: 508:24 Dictated By: Angela Lo M.D. Signed By:04/15/25826 DD/ 3 TD/TT: Direct Sales Professional: Authorizing ProviderResult TypeResult StatusCorey Kiley DOCLINISYNC IMAGINGFinal Result * (ABNORMAL) AFP tumor marker (04/08/2025 10:01 AM EDT)ComponentValueRef Range Test MethodAnalysis TimePerformed AtPathologist SignatureALPHA ECSOEIDCZAD25.3 (H)<=9.9 ng/mLPROMEDICAComment: ?? [facility]FOR[facility] AT [facility] [facility] [address],[place] [address] Specimen (Source)Anatomical Location / LateralityCollection Method / Volume Collection TimeReceived Time04/08/2025 10:01 AM EDT1 12:35 PM EDT Narrative Authorizing ProviderResult TypeResult StatusAmy Rehabilitation Hospital [facility] Rhode IslandAB BLOOD ORDERABLES Final ResultPerforming OrganizationAddressCity/State/ZIP CodePhone Number [place] * (ABNORMAL) Diabetic Retinopathy Screening - OU - Both Eyes (03/30/2025 12:15 PM EDT)Anatomical RegionLateralityModalityHeadOther Narrative Authorizing ProviderResult TypeResult StatusThomas W Milford ODOPHTH PHOTOGRAPHY Final Result * Urine culture [...] than 10,000 colonies/mLTBHURINE CULTURE, ROUTINEPerformed at: - [facility] at MonmouthTBHURINE CULTURE, EUDSCUL[address] [place], [place] [id number] CULTURE, ROUTINELab Director: Chaka Almanzar PhD, Phone: [phone] Specimen (Source)Anatomical Location / LateralityCollection Method / Volume Collection TimeReceived Time03/20/2025 7:28 AM EDT1 7:35 AM EDT Narrative [facility] - 03/22/2025 12:10 AM EDT Authorizing ProviderResult TypeResult StatusCorey Kiley DOLAB BLOOD ORDERABLES Final ResultPerforming OrganizationAddressCity/State/ZIP CodePhone Number [facility] * AMNISURE (03/20/2025 7:28 AM EDT)ComponentValueRef RangeTest MethodAnalysis TimePerformed AtPathologist SignatureTBH AMNISURENEGATIVENEGATIVETBHSpecimen (Source)Anatomical Location / LateralityCollection Method / VolumeCollection TimeReceived Time03/20/2025 7:28 AM EDT1 7:35 AM EDT Narrative [facility] - 03/20/2025 7:48 AM EDT Authorizing ProviderResult [...] 7:28 AM EDT1 7:35 AM EDT Narrative [facility] - 03/20/2025 7:55 AM EDT Authorizing ProviderResult TypeResult StatusCorey Kiley DOCLINISYNCFinal Result Performing OrganizationAddressCity/State/ZIP CodePhone Number [facility] * (ABNORMAL) [facility] UA (CLEAN/CATCH) FOREIGN FOOD COOK SPECIALTY/MICRO IF IND. (03/20/2025 7:28 AM EDT) ComponentValueRef RangeTest MethodAnalysis TimePerformed AtPathologist SignatureCOLOR URINELT. YELLOWYELLOWTBHCLARITY URINECLEARCLEARTBHSPECIFIC GRAVITY URINE1.0251.005 - 1.025TBHPH URINE6.05.0 - 9.0TBHPROTEIN URINENEGATIVE NEG/TRACE mg/dLTBHGLUCOSE URINE UANEGATIVENEGATIVE mg/dLTBHBILIRUBIN URINE NEGATIVENEGATIVETBHKETONES URINENEGATIVENEGATIVE mg/dLTBHBLOOD URINENEGATIVE NEGATIVETBHNITRITE URINENEGATIVENEGATIVETBHUROBILINOGEN URINE1.00.2 - 1.0 EU/dLTBHLEUKOCYTE ESTERASE URINELARGE(A)NEGATIVETBHURINE MICROSCOPIC INDICATED YESTBHSpecimen (Source)Anatomical Location / LateralityCollection Method / VolumeCollection TimeReceived Time03/20/2025 7:28 AM EDT1 7:35 AM EDT Narrative [facility] - 03/20/2025 7:55 AM EDT Authorizing ProviderResult TypeResult StatusCorey Kiley DOCLINISYNCFinal Result Performing OrganizationAddressCity/State/ZIP CodePhone Number [facility] * Microalbumin / creatinine urine ratio (10/27/2024)ComponentValueRef RangeTest MethodAnalysis TimePerformed AtPathologist SignatureMICROALBUMIN, URINE10.2 Specimen (Source)Anatomical Location / LateralityCollection Method / Volume Collection TimeReceived TimeUrineUrine specimen obtained by clean catch procedure / Ltgqufn6610/27/2024 Narrative Authorizing ProviderResult TypeResult StatusFirelands Physician GroupLAB URINE ORDERABLESFinal Result from Last 3 Months or Most Recently Relevant to Health Maintenance Additional Health Concerns Active ProblemsNoted DateDiagnosed DateOB Bcltkwfww02/24/2025 Insurance Care Teams Team MemberRelationshipSpecialtyStart DateEnd Date Joaquín Dillon DO [address] [place] [address] PCP - GeneralFamily Medicine10/22/22 Joaquín Dillon DO [address] [place] [address] PCP - Medical [facility]03/10/2312
--- OUTSIDE RECORDS SUMMARY | 2025-05-30 22:21 | XMS_ITS | Encounter Summary ---
Author Organization [facility] Address [address] [place] [address] Care Team Providers Care Wet Pan Operator Name Role Phone Dru Rodriguez DO Primary Care Provider [phone] Dru Rodriguez DO Unavailable [phone] Encounter Details DateTypeDepartmentCare Team (Latest Contact Info)Hdndrcqcphs21/19/2025Telephone [facility] [place] [facility] [address] [place] [address] Kolton Cao DO [address] [place] [id number] Social History Tobacco UseTypesPacks/DayYears UsedDateSmoking Tobacco: NeverSmokeless [...] relatives?Twice a week03/11/2023How often do you attend mormon or uatsdin services?1 to 4 times per year03/11/2023o you belong to any clubs or organizations such as mormon groups, unions, fraternal or athletic laura ups, or school groups?No03/11/2023How often do you attend meetings of the clubs or organizations you belong to?Never03/11/2023re you , , , , never , or living with a partner?Vhkhezg1003/11/2023 AUDIT-CAnswerDate RecordedQ1: How often do you have a drink containing alcohol? Monthly or less03/11/2023Q2: How many drinks containing alcohol do you have on a typical day when you are drinking?3 or Q3: How often do you have six or more drinks on one occasion?Less than eolnkky9403/11/2023Overall Financial Resource Strain (CARDIA)AnswerDate RecordedHow hard is it for you to pay for the very basics like food, housing, medical care, and heating?Somewhat hard 03/11/2023HQ-2AnswerDate RecordedPatient Health Questionnaire-2 Score0 03/25/2025[facility] [place] of Occupational Health - Occupational Stress QuestionnaireAnswerDate [...] slept in ashelter (including now)?No03/11/2023Estimated Date of OsfnkvuhWkclhvwxHvv33/27/2026ased on last menstrual period of 10/30/2024Sex and Gender InformationValueDate RecordedSex Assigned at VvgocXrhlvg84/01/2023 1:10 PM EDTLegal IfiAkalik81/15/2023 6:51 PM EDTGender FnhtuuyyUwiaww72/01/2023 1:10 PM EDTSexual NqhfrlhvkylUcokjstb71/01/2023 1:10 PM EDTdocumented as of this encounter Miscellaneous Notes * Telephone Encounter - Aline Fernández LPN - 05/28/2025 9:23 AM EST The reason I am calling is because I am getting my Rhogam shot today over at the [facility] and have to get blood [...] it. You can call me back at [phone]. Thank you. Patient call was returned and advised we will send orders over for Urine Culture for her to have completed. PVU orders sent at this time. documented in this encounter Plan of Treatment DateTypeDepartmentCare Team (Latest Contact Info)Uvhmynajxyw91/22/2025 3:30 PM ESTRoutine [facility] Issac PORTILLO [address] [place] [address] [place] [phone] Kolton Cao DO [address] [place], [place] [address] 06/16/2025 4:00 PM ESTRoutine NOMAislinn PORTILOL [address] [place] [place] [phone] Dixie Gan, TEST AUTOMATION ARCHITECT [address] [place] [phone] NameTypePriorityAssociated DiagnosesOrder ScheduleUrine cultureMicrobiology Routine Kidney pain Expected: 05/28/2025 (Approximate), Expires: 05/28/2026documented as of this encounter Goals GoalPatient Goal TypeAssociated ProblemsRecent ProgressPatient-Stated?Author Reminders Care PlanOB RemindersNoOpen Scheduling, Backgrounddocumented as of this encounter Visit Diagnoses Diagnosis Kidney pain Renal colic documented in this encounter Additional Health Concerns Active ProblemsNoted DateDiagnosed DateOB Wtpkvybue62/24/2025 documented as of this encounter Care Teams Team MemberRelationshipSpecialtyStart DateEnd Date Dru Rodriguez DO [address] [place] [address] PCP - GeneralFamily Medicine10/22/22 Dru Rodriguez DO [address] [place] [address] PCP - Medical [facility]03/10/2312documented as of this encounter
--- OUTSIDE RECORDS SUMMARY | 2025-05-30 22:21 | XMS_ITS | Encounter Summary ---
Author Organization [facility] Address [address] [place] [address] Care Team Providers Care Atmospheric Physicist Name Role Phone Joaquín Rodriguez DO Primary Care Provider [phone]- [phone] Joaquín Rodriguez DO Unavailable [phone] Encounter Details DateTypeDepartmentCare Team (Latest Contact Info)Ewqizfchvya64/19/2025Clinisync Result Encounter [facility] External Department Unsolicited Bryant Cao DO [address] [place] [address] Social History Tobacco UseTypesPacks/DayYears UsedDateSmoking Tobacco: NeverSmokeless [...] week03/11/2023How often do you attend latter-day or amish services?1 to 4 times per year03/11/2023o you belong to any clubs or organizations such as latter-day groups, unions, fraternal or athletic luara ups, or school groups?No03/11/2023How often do you attend meetings of the clubs or organizations you belong to?Never03/11/2023re you , , , , never , or living with a partner?Fofqqsd5003/11/2023 AUDIT-CAnswerDate RecordedQ1: How often do you have a drink containing alcohol? Monthly or less03/11/2023Q2: How many drinks containing alcohol do you have on a typical day when you are drinking?3 or Q3: How often do you have six or more drinks on one occasion?Less than ksyjnpr5103/11/2023Overall Financial Resource Strain (CARDIA)AnswerDate RecordedHow hard is it for you to pay for the very basics like food, housing, medical care, and heating?Somewhat hard 03/11/2023HQ-2AnswerDate RecordedPatient Health Questionnaire-2 Score0 03/25/2025[facility] [place] of Occupational Health - Occupational Stress QuestionnaireAnswerDate [...] slept in ashelter (including now)?No03/11/2023Estimated Date of AcxmceglExvoqewhDja57/27/2026ased on last menstrual period of 10/30/2024Sex and Gender InformationValueDate RecordedSex Assigned at ZgvodTilyhy13/01/2023 1:10 PM EDTLegal RrjPkyczw96/15/2023 6:51 PM EDTGender PcvklsrgIwbyiy08/01/2023 1:10 PM EDTSexual WodmshnsufsWgrzzpoi50/01/2023 1:10 PM EDTdocumented as of this encounter Plan of Treatment DateTypeDepartmentCare Team (Latest Contact Info)Exnjfpzidkr55/22/2025 3:30 PM ESTRoutine [facility] Issac PORTILLO [address] [place] [address] Bryant Cao, [address] [place], [place] [address] 06/16/2025 4:00 PM ESTRoutine NOMAislinn PORTILLO [address] [place] [address] Dixie Gan, MIDDLE SCHOOL COACH [address] [place] [address] documented as of this encounter Goals GoalPatient Goal TypeAssociated ProblemsRecent ProgressPatient-Stated?Author Reminders Care PlanOB RemindersNoOpen Scheduling, Backgrounddocumented as of this encounter Procedures Procedure NamePriorityDate/TimeAssociated DiagnosisCommentsUS OB BPP W NON-CGFUFI1705/28/2025 11:24 PM EST documented in this encounter Results * US OB BPP W NON-STRESS (05/28/2025 11:24 PM EST)Anatomical Region LateralityModalityOtherSpecimen (Source)Anatomical Location / Laterality Collection Method / VolumeCollection TimeReceived Time05/28/2025 11:24 PM EST Narrative 05/28/2025 11:27 PM EST [facility] ?[address] ? [place] [address] ? Ultrasound Report ? Signed ? Patient: KAELYN SHAW ?MR#: [id number] ?? : 2000 ?Acct:[id number] ?? Age/Sex: 25 / F ?ADM Date: 05/28/25 ?? Loc: US ? Attending Dr: Bryant Cao D.O. ? Ordering Physician: Bryant Cao D.O. ?? Date of Service: 05/28/25 ?? Procedure(s): US OB BPP w non-stress ?? Accession Number(s): [id number] ? cc: Bryant Cao D.O.; JOAQUÍN RODRIGUEZ ? [facility] ? [facility] [address] ? [place] [address] ? Patient Name: ?? KAELYN SHAW ? MRN: [facility]:[id number] ? date: 2000 ?Sex: F ?? Assigned Patient Location: ?? Current Patient Location: US ?? Accession/Order Number: [id number] ?? Exam Date: 05/28/2025 ??16:19 ?Report Date: [...] Dictation Location: RADIO-PC-17 ? Electronically authenticated by: [id number] ??Y ?? Date: 05/28/2025 ??23:24 ? Dictated By: ?Prashanth Orta M.D. ? Signed By: ?05/28/252326 ? DD/ 2324 ? TD/TT: ? Spiritual Advisor: Procedure Note Radiology, Radiologist, - 05/28/2025 [place] [address] Ultrasound Report Signed Patient: KAELYN SHAW MMR#: [id number] : 2000Acct:[id number] Age/Sex: 25 / FADM Date: 05/28/25 Loc: US Attending Dr: Bryant Cao D.O. Ordering Physician: Bryant Cao D.O. Date of Service: 05/28/25 Procedure(s): US OB BPP w non-stress Accession Number(s): [id number] cc: Bryant Cao D.O.; JOAQUÍN RODRIGUEZ The [address] [address] Patient Name: KAELYN SHAW MRN: [id number] date: 2000 Sex: F Assigned Patient Location: US Current Patient Location: US Accession/Order Number: [id number] Exam Date: 05/28/2025 16:19 Report Date: 05/28/2025 [...] Orta M.D. 05/28/2025 11:24 PM Dictation Location: [place] [address] Electronically authenticated by: [id number] Y Date: 3:24 Dictated By: Prashanth Orta M.D. Signed By:05/28/252326 DD/ 23 TD/TT: Spiritual Advisor: Authorizing ProviderResult TypeResult StatusCorey Kiley DOCLINISYNC IMAGINGFinal Result documented in this encounter Visit Diagnoses Not on filedocumented in this encounter Additional Health Concerns Active ProblemsNoted DateDiagnosed DateOB Lryehobkt05/24/2025 documented as of this encounter Care Teams Team MemberRelationshipSpecialtyStart DateEnd Date Joaquín Rodriguez DO [address] [place] [address] PCP - GeneralFamily Medicine10/22/22 Joaquín Rodriguez DO [address] [place] [address] PCP - Medical [place] Lftvjigpqy91/1/2312documented as of this encounter
--- OUTSIDE RECORDS SUMMARY | 2025-05-30 22:21 | XMS_ITS | Encounter Summary ---
Author Organization [facility] tem Address [facility] [address] [place] [address] Care Team Providers Care Wire Lather Name Role Phone JenniferDru April MUNGUIA Primary Care Provider [phone]- [phone] Encounter Details DateTypeDepartmentCare Team (Latest Contact Info)Nezmbjgrhid88/17/2025Telephone Maternal- Medicine at [facility] [address] [facility] [place] [phone] Yue Bullock RN Social History Tobacco UseTypesPacks/DayYears UsedDateSmoking Tobacco: NeverSmokeless Tobacco: NeverAlcohol UseStandard Drinks/WeekCommentsYes0 (1 standard drink = 0.6 oz pure alcohol)[facility] UtilitiesAnswerDate RecordedIn the past 12 months has the [place], gas, oil, or water [employer] threatened to shut off services in [...] care, and heating?Not hard at all02/17/2025PHQ-2AnswerDate RecordedTotal Yjxtq509Fintimpanogos [facility] hospital [place] of Occupational Health - Occupational Stress QuestionnaireAnswerDate [...] household?No02/17/2025hildcareAnswerDate RecordedDo problems getting child care center administrator make it difficult for you to [...] and direction in my life.Agree02/17/2025Estimated Date of QudnvlyoGhljqlouFxw16/27/2026Based on last menstrual period of 10/30/2024Sex and Gender InformationValueDate RecordedSex Assigned at RwkldScjkpk20/22/2025 1:51 AM EDTLegal SexFemale 01/13/2015 11:58 AM EDTGender SpmkcczrMkksdw82/22/2025 1:51 AM EDTSexual OrientationNot on filedocumented as [...] Plan of Treatment DateTypeDepartmentCare Team (Latest Contact Info)Nofvmaguggv71/02/2026 3:30 PM ESTAppointment [facility] [address] [place] [address] documented as of this encounter Visit Diagnoses Diagnosis Uncontrolled type 1 diabetes mellitus with hyperglycemia, with long-term current use of insulin ([facility] documented in this encounter Additional Health Concerns AssessmentNoted TimePHQ-9 Depression Total Score: 8:31 AM ESTA Body Mass Index follow-up plan has been documented for the unlboer1406/12/2023 4:35 PM ESTdocumented as of this encounter Care Teams Team MemberRelationshipSpecialtyStart DateEnd Date Dru Rodriguez DO [address] [place] [address] PCP - General01/01/17documented as of this encounter
--- OUTSIDE RECORDS SUMMARY | 2025-05-30 22:21 | XMS_ITS | Encounter Summary ---
Author Organization [facility] tem Address [id number] [address] [place] [address] Care Team Providers Care Customer Experience Strategist Name Role Phone JenniferDru April MUNGUIA Primary Care Provider [phone]- [phone] Encounter Details DateTypeDepartmentCare Team (Latest Contact Info)Zfznxtdyuxy36/19/2025Orders Only Maternal- Medicine at [facility] [address] [place] [address] Odilia Dumas RN [address] [address] Social History Tobacco UseTypesPacks/DayYears UsedDateSmoking Tobacco: NeverSmokeless [...] care, and heating?Not hard at all02/17/2025PHQ-2AnswerDate RecordedTotal Uxsru74606/12/2023Finhuntsman mental [facility] institute [place] of Occupational Health - Occupational Stress QuestionnaireAnswerDate [...] and direction in my life.Agree02/17/2025Estimated Date of HpxwlxjfGrzavlivTzz35/27/2026Based on last menstrual period of 10/30/2024Sex and Gender InformationValueDate RecordedSex Assigned at DbohcFqnawk19/22/2025 1:51 AM EDTLegal SexFemale 01/13/2015 11:58 AM EDTGender CledhrigGqgsxq08/22/2025 1:51 AM EDTSexual OrientationNot on filedocumented as of this encounter Plan of Treatment DateTypeDepartmentCare Team (Latest Contact Info)Obuibfytvmr49/02/2026 3:30 PM ESTAppointment [facility] [address] [place] [address] documented as of this encounter Visit Diagnoses Not on filedocumented in this encounter Additional Health Concerns AssessmentNoted TimePHQ-9 Depression Total Score: 8:31 AM ESTA Body Mass Index follow-up plan has been documented for the kqxcpnr9906/12/2023 4:35 PM ESTdocumented as of this encounter Care Teams Team MemberRelationshipSpecialtyStart DateEnd Date Dru Rodriguez DO [address] [place] [address] PCP - General01/01/17documented as of this encounter
--- OUTSIDE RECORDS SUMMARY | 2025-05-30 22:21 | XMS_ITS | Encounter Summary ---
Author Organization [facility] Address [address] [place] [address] Care Team Providers Care Hardwood Floor Installation Helper Name Role Phone LizzDru lam DO Primary Care Provider [phone]- [phone] RonySimon lozadaew April DO Unavailable [phone] Encounter Details DateTypeDepartmentCare Team (Latest Contact Info)Xiwinmmftvj10/09/2025amboo flowsheet LALITA [place] OBGYLarisa [address] [place] [phone] Katharine Cummins PA [address] [place], [facility] Social History Tobacco UseTypesPacks/DayYears UsedDateSmoking Tobacco: NeverSmokeless [...] relatives?Twice a week03/11/2023How often do you attend mandaeism or caodaism services?1 to 4 times per year03/11/2023o you belong to any clubs or organizations such as mandaeism groups, unions, fraternal or athletic laura ups, or school groups?No03/11/2023How often do you attend meetings of the clubs or organizations you belong to?Never03/11/2023re you , , , , never , or living with a partner?Pbnnipu0703/11/2023 AUDIT-CAnswerDate RecordedQ1: How often do you have a drink containing alcohol? Monthly or less03/11/2023Q2: How many drinks containing alcohol do you have on a typical day when you are drinking?3 or Q3: How often do you have six or more drinks on one occasion?Less than sxbixfg8203/11/2023Overall Financial Resource Strain (CARDIA)AnswerDate RecordedHow hard is it for you to pay for the very basics like food, housing, medical care, and heating?Somewhat hard 03/11/2023HQ-2AnswerDate RecordedPatient Health Questionnaire-2 Score0 03/25/2025Finintermountain medical center [place] of Occupational Health - Occupational Stress QuestionnaireAnswerDate [...] slept in ashelter (including now)?No03/11/2023Estimated Date of DcxhbskqIvugvcqkTnw20/27/2026ased on last menstrual period of 10/30/2024Sex and Gender InformationValueDate RecordedSex Assigned at BhtdxDrvcua93/01/2023 1:10 PM EDTLegal CmyLvtvwn99/15/2023 6:51 PM EDTGender VdnqryliQhfgjg45/01/2023 1:10 PM EDTSexual BkepjcramaqGpjsccih56/01/2023 1:10 PM EDTdocumented as of this encounter Plan of Treatment DateTypeDepartmentCare Team (Latest Contact Info)Wfaxwbmaqyy91/22/2025 3:30 PM ESTRoutine [facility] Issac PORTILLO [address] [place] [address] Kolton Cao DO [address] [place] [address] 06/16/2025 4:00 PM ESTRoutine NOMAislinn PORTILLO [address] [place] [address] Dixie Gan, TRANSITIONS MANAGER RN [address] [place] [address] documented as of this encounter Goals GoalPatient Goal TypeAssociated ProblemsRecent ProgressPatient-Stated?Author Reminders Care PlanOB RemindersNoOpen Scheduling, Backgrounddocumented as of this encounter Visit Diagnoses Not on filedocumented in this encounter Additional Health Concerns Active ProblemsNoted DateDiagnosed DateOB Klddjzmsr22/24/2025 documented as of this encounter Care Teams Team MemberRelationshipSpecialtyStart DateEnd Date Dru Rodriguez DO [address] [place] [address] PCP - GeneralFamily Medicine10/22/22 Dru Rodriguez DO [address] [place] [address] PCP - Medical [place] Iqydkzluwu08/1/2312documented as of this encounter
--- OUTSIDE RECORDS SUMMARY | 2025-05-30 22:21 | XMS_ITS | Encounter Summary ---
Author Organization [facility] tem Address [id number] [address] [place] [address] Care Team Providers Care Filter Pulp Washer Name Role Phone JenniferDru April MUNGUIA Primary Care Provider [phone] Encounter Details DateTypeDepartmentCare Team (Latest Contact Info)Lpmvhojwwxc26/25/2025Orders Only Maternal- Medicine at [facility] [address] [place] [phone] Rosy Arredondo PA-C [address] [address] Social History Tobacco UseTypesPacks/DayYears UsedDateSmoking Tobacco: NeverSmokeless Tobacco: NeverAlcohol UseStandard Drinks/WeekCommentsYes0 (1 standard drink = 0.6 oz pure alcohol)[facility] UtilitiesAnswerDate RecordedIn the past 12 months [...] care, and heating?Not hard at all02/17/2025PHQ-2AnswerDate RecordedTotal Olyum619Finsteward health care system [place] of Occupational Health - Occupational Stress QuestionnaireAnswerDate [...] of a household?No02/17/2025hildcareAnswerDate RecordedDo problems getting child health associate make it difficult for you to [...] and direction in my life.Agree02/17/2025Estimated Date of YyicfwykHvzfwogcEre97/27/2026ased on last menstrual period of 10/30/2024Sex and Gender InformationValueDate RecordedSex Assigned at DfotlYwslue07/22/2025 1:51 AM EDTLegal SexFemale 01/13/2015 11:58 AM EDTGender RqibgdzpAdxzbl63/22/2025 1:51 AM EDTSexual OrientationNot on filedocumented as [...] Plan of Treatment DateTypeDepartmentCare Team (Latest Contact Info)Givrjgfcsag91/02/2026 3:30 PM ESTAppointment [facility] [address] [place] [address] documented as of this encounter Visit Diagnoses Not on filedocumented in this encounter Additional Health Concerns AssessmentNoted TimePHQ-9 Depression Total Score: 8:31 AM ESTA Body Mass Index follow-up plan has been documented for the mhemykc8906/12/2023 4:35 PM ESTdocumented as of this encounter Care Teams Team MemberRelationshipSpecialtyStart DateEnd Date Dru Rodriguez DO [address] [place] [address] PCP - General01/01/17documented as of this encounter
--- OUTSIDE RECORDS SUMMARY | 2025-05-30 22:21 | XMS_ITS | Encounter Summary ---
Author Organization [facility] tem Address [id number] [place] [address] Care Team Providers Care Sponge Diver Name Role Phone RonyDru lozada April MUNGUIA Primary Care Provider [phone]- [phone] Encounter Details DateTypeDepartmentCare Team (Latest Contact Info)Peuqzmffwfh83/08/2025Telephone Maternal- Medicine at [facility] [address] [facility] [place] [phone] Debby Garcia RN Social History Tobacco UseTypesPacks/DayYears UsedDateSmoking Tobacco: NeverSmokeless Tobacco: NeverAlcohol UseStandard Drinks/WeekCommentsYes0 (1 standard drink = 0.6 oz pure alcohol)[facility] UtilitiesAnswerDate RecordedIn the past 12 months has the [employer], gas, oil, or water [employer] threatened to shut off services in your [...] care, and heating?Not hard at all02/17/2025PHQ-2AnswerDate RecordedTotal Ewmoz87406/12/2023[facility] [place] [facility] - Occupational Stress QuestionnaireAnswerDate [...] and direction in my life.Agree02/17/2025Estimated Date of GytyzfmfLvgkqxqyLfb92/27/2026Based on last menstrual period of 10/30/2024Sex and Gender InformationValueDate RecordedSex Assigned at LlmimPbcmmc31/22/2025 1:51 AM EDTLegal SexFemale 01/13/2015 11:58 AM EDTGender YqcewphjRrsflx37/22/2025 1:51 AM EDTSexual OrientationNot on filedocumented as of this encounter Miscellaneous Notes * Telephone Encounter - Debby Garcia RN - 05/17/2025 2:41 PM EST Left message for patient to call [facility] to schedule a 1-2 week video visit with Rosy PITTMAN and a [facility] MD visit in person in 4 weeks. Call back number given. documented in this encounter Plan of Treatment DateTypeDepartmentCare Team (Latest Contact Info)Eqynlzgmels44/02/2026 3:30 PM ESTAppointment [facility] [address] [place] [id number] documented as of this encounter Visit Diagnoses Diagnosis Uncontrolled type 1 diabetes mellitus with hyperglycemia, with long-term current use of insulin ([facility]) documented in this encounter Additional Health Concerns AssessmentNoted TimePHQ-9 Depression Total Score: 8:31 AM ESTA Body Mass Index follow-up plan has been documented for the yzdalyf2206/12/2023 4:35 PM ESTdocumented as of this encounter Care Teams Team MemberRelationshipSpecialtyStart DateEnd Date Dru Rodriguez DO [address] [place] [address] PCP - General01/01/17documented as of this encounter
--- OUTSIDE RECORDS SUMMARY | 2025-05-30 22:21 | XMS_ITS | Clinical Summary ---
Author Organization [facility] tem Address [id number] [address] [place] [address] Care Team Providers Care Skate Hop Name Role Phone JenniferDru April MUNGUIA Primary Care Provider [phone] Allergies Active AllergyReactionsCriticalityNoted BbcuOgnfirzvRtayskibcwe78/14/2016 Has since taken without reaction Medications * [...] with hyperglycemia, with long-term current use of occqryd0502/17/2025Type 1 diabetes mellitus during in third ohjtwbczf76/11/2025DKA, type 1, not at goal 07/30/2018Diabetic ketoacidosis associated with type 1 diabetes mellitus 02/22/2017Acute renal /11/2017Mechanical breakdown of insulin pump02/18/2017Generalized anxiety vbpesoow78/25/2017Panic disorder without xrltoukfxvc71/25/2017DKA, type Mild intermittent nzybem9805/23/2016 Estimated Date of DstsanyqCuzcbzalOht50/27/2026ased on last menstrual period of 10/30/2024 Resolved Problems ProblemNoted DateDiagnosed DateResolved DateCeliac disease in pediatric patient Encounters DateTypeDepartmentCare BgkdPrsumqfgvco37/19/2025Telephone Maternal- Medicine at [facility] [address] [facility] [place] [address] Odilia Dumas RN 05/28/2025Orders Only Maternal- Medicine at [facility] [address] [facility] [place] [address] Odilia Dumas RN 05/26/2025Telephone Maternal- Medicine at [facility] [address] [facility] [place] [address] Yue Bullock, BRANDT 05/17/2025 1:00 PM ESTTelemedicine Maternal- Medicine at [facility] [address] [place] [address] Rosy Arredondo, PAOksana Type 1 diabetes mellitus during in third trimester (Primary Dx) 05/17/2025Telephone Maternal- Medicine at [facility] [address] [facility] [place] [address] Debby Garcia, BRANDT 05/17/20255568Shbmnq14/05/2025Telephone Maternal- Medicine at [facility] [address] [place] [address] Katie Orozco LD 05/13/2025 8:33 AM EST - 05/13/2025 11:59 PM ESTHospital Encounter [facility] US Imaging [address] [place] [address] Type 1 diabetes mellitus during in second trimester Discharge Disposition: Home05/13/2025Orders Only Maternal- Medicine at [facility] [address] [place] [address] Becca Natarajan, BRANDT Type 1 diabetes mellitus during in second trimester (Primary Dx) 05/13/20259174Ggzezq52/02/2025Orders Only Maternal- Medicine at [facility] [address] [facility] [place] [address] Ivory Quinones MD 05/10/2025Orders Only Maternal- Medicine at [facility] [address] [place] [address] Clarita Mchugh, KNOCKOUT MAN 05/07/2025Telephone Maternal- Medicine at [facility] [address] [facility] [place] [address] Clarita Mchugh, KNOCKOUT MAN 05/05/2025Telephone Maternal- Medicine at [facility] [address] [place] [address] Yue Bullock RN 05/04/2025Telephone Maternal- Medicine at [facility] [address] [facility] [place] [address] Daniel Walker 05/04/2025Orders Only Maternal- Medicine at [facility] [address] [place] [address] Rosy Arredondo PA-C 05/04/2025Orders Only [facility] - Labor [address] [place] [address] Rosy Arredondo PA-C 05/03/2025Orders Only Maternal- Medicine at [facility] [address] [place] [address] Debby Garcia, BRANDT 04/27/2025Documentation Maternal- Medicine at [facility] [address] [place] [address] Yue Bullock, BRANDT 04/26/2025Telephone Maternal- Medicine at [facility] [address] [place] [address] Yue Bullock, BRANDT 04/26/2025Remote Patient Monitoring Maternal- Medicine at [facility] [address] [place] [address] Ivory Quinones MD Type 1 diabetes mellitus during in second trimester [O24.012] (Primary Dx)04/20/2025 12:29 PM EST - 04/22/2025 2:20 PM ESTHospital Encounter [facility] - GEN 3 Antepartum [address] [place] [address] Criselda Green, Uncontrolled type 1 diabetes mellitus with hyperglycemia, with long-term current use of insulin ([facility]) Discharge Disposition: Left Against Medical Advice or Discontinued Care 04/20/2025 10:30 AM ESTTelemedicine Maternal- Medicine at [facility] [address] [place] [address] Rosy Arredondo, PASocoC Type 1 diabetes mellitus during in second trimester (Primary Dx) 04/20/2025Orders Only Maternal- Medicine at [facility] [address] [place] [address] Clarita Mchugh CMA 04/20/20259582Wpngnv56/07/2025 1:53 PM EST - 04/16/2025 11:59 PM ESTHospital Encounter [facility] - Cardiovascular [address] [place] [address] Type 1 diabetes mellitus complicating in second trimester, antepartum Discharge Disposition: Home04/16/2025Results Follow-Up Maternal- Medicine at [facility] [address] [place] [address] Georgiana Esteban MD Echo complete W/O ybirksda44/06/9367Aqidgp82/06/2025Orders Only Maternal- Medicine at [facility] [address] [place] [address] Katharine Howard, MIDDLE STITCHER Type 1 diabetes mellitus during in second trimester (Primary Dx) 04/14/2025 8:00 AM EST - 04/14/2025 11:59 PM ESTHospital Encounter [facility] US Imaging [address] [place] [address] Encounter for other screening follow-up Discharge Disposition: Home04/12/2025 10:00 AM ESTTelemedicine Maternal- Medicine at [facility] [address] [place] [address] Poncho Jeffrey MD Type 1 diabetes mellitus during in second trimester (Primary Dx); Type 1 diabetes mellitus during in first jagtpfrae98/03/2025Travel 04/08/2025 1:00 PM EDTTelemedicine Maternal- Medicine at [facility] [address] [place] [address] Georgiana Esteban MD 22 weeks gestation of (Primary Dx); Type 1 diabetes mellitus complicating in second trimester, antepartum; Asthma complicating in second hbdusmrtx09/30/1867Hrymzu41/29/2025 Telephone Maternal- Medicine at [facility] [address] [place] [address] Carolann Urbina RN 04/06/2025Telephone Maternal- Medicine at [facility] [address] [place] [address] Carolann Urbina, RN 04/05/2025Orders Only Maternal- Medicine at [facility] [address] [place] [address] Clarita Mchugh CMA 03/29/2025 10:30 AM EDTTelemedicine Maternal- Medicine at [facility] [address] [place] [address] Rosy Arredondo PA-C Type 1 diabetes mellitus during in second trimester (Primary Dx) 03/29/20256225Iqnhjj40/20/2025Orders Only Maternal- Medicine at [facility] [address] [facility] [place] [address] Lula Fernandez, RN 03/29/2025Orders Only Maternal- Medicine at [facility] [address] [facility] [place] [address] Debby Garcia, BRANDT 03/24/2025Telephone Maternal- Medicine at [facility] [address] [facility] [place] [address] Maritza Milian 03/17/2025Telephone Maternal- Medicine at [facility] [address] [place] [address] Maritza Milian 03/16/2025 7:57 AM EDT - 03/16/2025 11:59 PM EDTHospital Encounter [facility] - Ultrasound [address] [place] [address] Type 1 diabetes mellitus during in first trimester Discharge Disposition: Home03/15/2025 3:30 PM EDTTelemedicine Maternal- Medicine at [facility] [address] [place] [address] Rosy Arredondo PA-C Type 1 diabetes mellitus during in second trimester (Primary Dx) 03/15/2025Telephone Maternal- Medicine at [facility] [address] [facility] [place] [address] Debby Garcia, BRANDT 03/15/20257286Xdfnvo69/06/2025Orders Only Maternal- Medicine at [facility] [address] [place] [address] Debby Garcia, BRANDT 03/09/2025Orders Only Maternal- Medicine at [facility] [address] [facility] [place] [address] Yahaira Miller MD 03/09/2025Orders Only Maternal- Medicine at [facility] [address] [facility] [place] [address] Yue Bullock RN 03/09/2025Remote Patient Monitoring Maternal- Medicine at [facility] [address] [place] [address] Yahaira Miller MD Pre-existing type 1 diabetes mellitus with hyperglycemia during in second trimester ([facility]) (Primary Dx)03/08/2025Orders Only Maternal- Medicine at [facility] [address] [facility] [place] [address] Clarita Mchugh, YARIEL 03/03/2025 10:30 AM EDTTelemedicine Maternal- Medicine at [facility] [address] [facility] [place] [address] Carin Mathur, FUNERAL DIRECTOR/EMBALMER/OWNER-SOLUTION ANALYST Uncontrolled type 1 diabetes mellitus with hyperglycemia, with long-term current use of insulin ([facility]) (Primary Dx)03/03/2025Telephone Maternal- Medicine at [facility] [address] [facility] [place] [address] Lula Fernandez RN 03/03/20258100Fzhtjb53/24/2025Orders Only Maternal- Medicine at [facility] [address] [place] [address] Lula Fernandez RN from Last [...] (1 standard drink = 0.6 oz pure alcohol)DataRosem-Care Technology UtilitiesAnswerDate RecordedIn the past 12 months has the [employer], gas, oil, or water [employer] threatened to shut off services in your [...] care, and heating?Not hard at all02/17/2025PHQ-2AnswerDate RecordedTotal Puieu54806/12/2023Finuniversity of [facility] [place] [facility] Occup[facility] - Occupational Stress QuestionnaireAnswerDate [...] and direction in my life.Agree02/17/2025Estimated Date of VgvqtrkaXrovmfktZeg09/27/2026ased on last menstrual period of 10/30/2024Sex and Gender InformationValueDate RecordedSex Assigned at AldogOfgcfn02/22/2025 1:51 AM EDTLegal SexFemale 01/13/2015 11:58 AM EDTGender DydktbugVfauek89/22/2025 1:51 AM EDTSexual OrientationNot on file Last Filed Vital Signs Vital SignReadingTime TakenCommentsBlood Tgwfdtiq024/6004/22/2025 8:44 AM EST Lmrti289504/22/2025 8:44 AM KGTUtjhistckvr62.7 ??C (98.1 ??F)04/22/2025 8:44 AM ESTRespiratory Hbrz326906/22/2024 8:44 AM ESTOxygen Zoywvktdim79%04/21/2025 7:24 PM ESTInhaled Oxygen Concentration--Kpnuej93.1 kg (161 lb 2.5 oz)04/20/2025 12:30 PM YRWDwuskh073.3 cm (4' 9.99 )02/17/2025 6:00 PM EDTBody Mass Index33.69 02/17/2025 6:00 PM EDT Plan of Treatment DateTypeDepartmentCare Team (Latest Contact Info)Hkuqvpplsri73/02/2026 3:30 PM ESTAppointment [facility] US Imaging [address] [place] [address] Health MaintenanceDue DateLast DoneCommentsDiabetic Ophthalmology Exam2001 Diabetic Foot Exam2019Chlamydia Njfxxgexq022Adult BMI Follow Up Plan/epression Crooakgvt26/4COVID- 19 Vaccine ( season)/11/2021, 03/21/2021, 1RSV ( or age 60+ yrs) (1 - Risk 1-dose series)6Adult BMI Iewwtqyom98/04/2025Tobacco Beqpvbshz27/Pap Smear 809/02/2025, 2DTaP,Tdap and Td Vaccines (8 - Td or Tdap) /, 03/02/2013, 03/18/2008, Additional history existsInfluenza BdspdwuJgtoyxblg23/08/2025, 03/18/2024, 06/12/2023, Additional history exists Medical Devices ImplantedTypeAreaManufacturerDevice IdentifierShelf Expiration DateModel / Serial / LotNexplanonDescription: control implant in right upper arm Procedures Procedure NamePriorityDate/TimeAssociated DiagnosisCommentsUS [facility] OB FOLLOW-[facility], 1 CKMJGSttxtnb60/04/2025 9:12 AM EST Type 1 diabetes mellitus during in second trimester EXTRA TUBES SST HFSLvoatod74/13/2025 9:13 AM EST EXTRA TUBES LAVENDER RCMOhwvyhp19/13/2025 9:13 AM EST EXTRA TUBES PST UGFEbtjkkq14/13/2025 9:13 AM EST EXTRA FADFXQreyccp18/13/2025 9:13 AM EST BEDSIDE NHTDLULRsxfvit70/12/2025 7:17 PM EST BEDSIDE FTLVSEUOlvuoqu53/12/2025 3:56 PM EST BEDSIDE PWPTFTMFqvawqo87/12/2025 3:41 PM EST BEDSIDE ENUFAEXDkouzwn64/12/2025 6:13 AM EST BEDSIDE VTNENDRWhxxkaz07/11/2025 7:37 PM EST BEDSIDE NVBIGJLWavigyr90/11/2025 7:18 PM EST REPEATED JTFELBsnpdmm60/11/2025 1:14 PM EST T4, FREEAdd-On04/20/2025 1:14 PM EST TSHAdd-On04/20/2025 1:14 PM EST ACETONE,(BETAHYDROXYBUTYRATE, KETONE) QUANTITATIVE YPCSGOewtipb32/11/2025 1:14 PM EST CBC WITH AUTO PVFYBWPDFAPRUlxtode63/11/2025 1:14 PM EST COMPREHENSIVE METABOLIC ATXMVFhxwkeh89/11/2025 1:14 PM EST ECHO COMPLETE WO HFIVRRUAAnbhlrz12/07/2025 2:29 PM EST Type 1 diabetes mellitus complicating in second trimester, antepartum US MFM OB FOLLOW-UP, 1 QTNLTYwkiwpi54/05/2025 9:34 AM EST Encounter for other screening follow-up ALPHA OHNICFOHVRRUajgbqu96/30/2025 10:01 AM EDT Encounter for supervision of normal , unspecified, second trimester B-TYPE NATRIURETIC POBAJGKXgvjnut68/30/2025 10:01 AM EDT Type 1 diabetes mellitus during in second trimester EXTRA TUBES LAVENDER DYFDqsewjz94/30/2025 9:56 AM EDT Encounter for supervision of normal , unspecified, second trimester Uncontrolled type 1 diabetes mellitus with hyperglycemia, with long-term current use of insulin ([facility]) Type 1 diabetes mellitus during in second trimester EXTRA VBKCKJkcanku29/30/2025 9:56 AM EDT Encounter for supervision of normal , unspecified, second trimester Uncontrolled type 1 diabetes mellitus with hyperglycemia, with long-term current use of insulin ([facility]) Type 1 diabetes mellitus during in second trimester HEMOGLOBIN S1HQzffwrp08/30/2025 9:56 AM EDT Uncontrolled type 1 diabetes mellitus with hyperglycemia, with long-term current use of insulin ([facility]) US [facility] COMPREHENSIVE ANATOMIC IAWOQNVmppllo65/07/2025 9:52 AM EDT Type 1 diabetes mellitus during in first trimester PAP VXAOFWvniqht81/24/2022 10:35 AM EDT Cervical smear, as part of routine gynecological examination CHLAMYDIA/GC BY PCR OMAIRA KSJDDpveicq19/11/2022 6:33 PM EDT Menorrhagia with irregular cycle Metrorrhagia DUB (dysfunctional uterine bleeding) from Last 3 Months or Most Recently Relevant to Health Maintenance Results * US [facility] OB FOLLOW-UP, 1 FETUS (05/13/2025 9:12 AM EST) Only the most recent of3 resultswithin the time period is included. Anatomical RegionLateralityModalityOB-GYNUltrasoundSpecimen (Source)Anatomical Location / LateralityCollection Method / VolumeCollection TimeReceived Time 05/13/2025 8:44 AM EST Narrative 05/13/2025 10:52 AM EST NAME: ??DARREN ART : 2000 SEX: F Accession Number: [id number] ORDERING PHYSICIAN: IVORY QUINONES REFERRING PHYSICIAN: BRYANT PULLIAM Coding Procedures ? 97097: Ultrasound, uterus, real time with image documentation, [...] (oz) ? 10 oz EFW by: ?Hadlock (DPQ-KG-XS-FL) Extended Tibia ??45.1 mm 27w 4d 40% Randolph Putty Worker ? 2.4 mm CM ? 6.4 [...] MVP measures 4.6 cm. Recommendations Please see [facility] recommendations from prior clinical and/or [...] ART : 2000 SEX: F Accession Number: [id number] ORDERING PHYSICIAN: IVORY QUINONES REFERRING PHYSICIAN: BRYANT PULLIAM Coding Procedures 60926: Ultrasound, uterus, real time with image documentation, [...] EFW (oz) 10 oz EFW by: Hadlock (KRT-GV-WV-FL) Extended Tibia 45.1 mm 27w 4d 40% Randolph Putty Worker 2.4 mm CM 6.4 mm 42% [...] MVP measures 4.6 cm. Recommendations Please see [facility] recommendations from prior clinical and/or [...] EST)ComponentValueRef RangeTest MethodAnalysis TimePerformed AtPathologist SignatureExtra TubeAuto Hquefuai59/13/2025 11:01 AM [facility] LABORATORYSpecimen (Source)Anatomical Location / LateralityCollection Method / VolumeCollection TimeReceived TimeBloodVenous blood / Slzlaml6904/22/2025 9:13 AM EST04/22/2025 10:09 AM EST Narrative Authorizing ProviderResult TypeResult StatusCriselda SHAH BLOOD ORDERABLESFinal ResultPerforming OrganizationAddressCity/State/ZIP CodePhone Number [facility] [address] [place] [address], [place] [phone] * Lavender Top (04/22/2025 9:13 AM EST) Only the most recent of2 resultswithin the time period is included. ComponentValueRef RangeTest MethodAnalysis TimePerformed AtPathologist Signature Extra TubeAuto Vflsbypb66/13/2025 11:01 AM [facility] LABORATORYSpecimen (Source)Anatomical Location / LateralityCollection Method / VolumeCollection TimeReceived TimeBloodVenous blood / Qgrauvo9204/22/2025 9:13 AM EST04/22/2025 10:09 AM EST Narrative Authorizing ProviderResult TypeResult StatusCriselda Green [facility] BLOOD ORDERABLESFinal ResultPerforming OrganizationAddressCity/State/ZIP CodePhone Number [facility] [address] [place] [address], * [facility] TOP (04/22/2025 9:13 AM EST)ComponentValueRef RangeTest MethodAnalysis TimePerformed AtPathologist SignatureExtra TubeAut Hywwdosf78/13/2025 11:01 AM [facility] LABORATORYSpecimen (Source)Anatomical Location / LateralityCollection Method / VolumeCollection TimeReceived TimeBloodVenous blood / Zprexew1504/22/2025 9:13 AM EST04/22/2025 10:09 AM EST Narrative Authorizing ProviderResult TypeResult StatusCriselda Green [facility] BLOOD ORDERABLESFinal ResultPerforming OrganizationAddressCity/State/ZIP CodePhone Number [facility] [address] [place] [address], * (ABNORMAL) Bedside Glucose *Place/Obtain serum glucose if >500 per glucometer. (04/21/2025 7:17 PM EST) Only the most recent of6 resultswithin the time period is included. ComponentValueRef RangeTest MethodAnalysis TimePerformed AtPathologist Signature Bedside Glucose (POC)152(H)65 - 99 mg/dL04/21/2025 7:22 PM [facility] LABORATORYSpecimen (Source)Anatomical Location / LateralityCollection Method / VolumeCollection TimeReceived Timearterial/occfvxdjh38/12/2025 7:17 PM EST 04/21/2025 7:22 PM EST Narrative Authorizing ProviderResult TypeResult StatusJessica Jeison Lafyatis DOPOINT OF CARE TEST ORDERABLESFinal ResultPerforming OrganizationAddressCity/State/ZIP CodePhone Number [facility] [address] [place] [address], * ABO Rh Repeat (04/20/2025 1:14 PM EST)ComponentValueRef RangeTest Method Analysis TimePerformed AtPathologist PrmvdrhwgCKHZ80/13/2025 10:32 AM ESTTTH BB - YNIUNEVFJCejmukzo04/13/2025 10:32 AM ESTTTH BB - GOPALCHARLOTTESpecimen (Source) Anatomical Location / LateralityCollection Method / VolumeCollection Time Received TimeBloodVenous blood / UnknownVenipuncture / Mqgsdof8004/20/2025 1:14 PM EST04/20/2025 1:33 PM EST Narrative Authorizing ProviderResult TypeResult StatusIsajulian Leary MDBLOOD BANK TEST ORDERABLESFinal ResultPerforming OrganizationAddressCity/State/ZIP CodePhone Number [facility] [address] [place] [address], [place] * (ABNORMAL) CBC auto differential (04/20/2025 1:14 PM EST)ComponentValueRef RangeTest MethodAnalysis TimePerformed AtPathologist QcjjqeidaZON12.7(H)4 - 11 X10^9/L106/20/2024 1:50 PM [facility] LABORATORYRBC Count3.72 (L)3.8 - 5.2 X10^12/L106/20/2024 1:50 PM [facility] Durjorhqiy39.3(L)11.7 - 15.5 g/dL04/20/2025 1:50 PM [facility] TWQREZTJNMVlpcjnyxpf65.7(L)35 - 47 %04/20/2025 1:50 PM [facility] SNKWYSPZZNPVG2449 - 100 fL04/20/2025 1:50 PM [facility] CFVQXORNNPHTF10.327 - 34 pg04/20/2025 1:50 PM [facility] ZAYRIGYPBMPOFI44.532 - 36 g/dL04/20/2025 1:50 PM [facility] IKYCHMOPSMCMR13.511.5 - 15 %04/20/2025 1:50 PM [facility] LABORATORYPlatelet Ovigu200809 - 450 X10^9/L106/20/2024 1:50 PM [facility] LABORATORYMPV8.97 - 12 fL04/20/2025 1:50 PM [facility] LABORATORYNeutrophils %80.6%04/20/2025 1:50 PM [facility] LABORATORYLymphocytes %12.7%04/20/2025 1:50 PM [facility] LABORATORYMonocytes %5.6%04/20/2025 1:50 PM [facility] LABORATORYEosinophils %0.7%04/20/2025 1:50 PM [facility] LABORATORYBasophils %0.4%04/20/2025 1:50 PM [facility] LABORATORYNeutrophils Absolute (A)10.2(H)1.5 - 6.6 X10^9/L 04/20/2025 1:50 PM [facility] LABORATORYLymphocytes Absolute 1.61.0 - 3.5 X10^9/L106/20/2024 1:50 PM [facility] Monocytes Absolute0.70.0 - 0.9 X10^9/L106/20/2024 1:50 PM [facility] LABORATORYEosinophils Absolute0.10.0 - 0.4 X10^9/L106/20/2024 1:50 PM [facility] LABORATORYBasophils Absolute0.10.0 - 0.2 X10^9/L 04/20/2025 1:50 PM [facility] LABORATORYDifferential Type AUTOMATED JOOQMTRFUKAV98/11/2025 1:50 PM [facility] LABORATORYSpecimen (Source)Anatomical Location / LateralityCollection Method / VolumeCollection TimeReceived TimeBloodVenous blood / UnknownVenipuncture / Wmpqwyu4004/20/2025 1:14 PM EST04/20/2025 1:33 PM EST Narrative Authorizing ProviderResult TypeResult StatusCristofer Leary MDLAB BLOOD ORDERABLESFinal ResultPerforming OrganizationAddressCity/State/ZIP CodePhone Number [facility] [address] [place] [address], * Acetone, (BetaHydroxybutyrate, Ketone) quantitative, serum (04/20/2025 1:14 PM EST)ComponentValueRef RangeTest MethodAnalysis TimePerformed AtPathologist SignatureBETAHYDROXYBUTYRATE0.100.02 - 0.27 mmol/L106/20/2024 2:15 PM [facility] LABORATORYSpecimen (Source)Anatomical Location / Laterality Collection Method / VolumeCollection TimeReceived TimeBloodVenous blood / UnknownVenipuncture / Vygbqbi6004/20/2025 1:14 PM EST04/20/2025 1:32 PM EST Narrative Authorizing ProviderResult TypeResult StatusCristofer Leary MDLAB BLOOD ORDERABLESFinal ResultPerforming OrganizationAddressCity/State/ZIP CodePhone Number [facility] [address] [place] [address], * TSH (04/20/2025 1:14 PM EST)ComponentValueRef RangeTest MethodAnalysis Time Performed AtPathologist SignatureTSH0.750.49 - 4.67 uIU/mL04/21/2025 9:43 AM [facility] LABORATORYSpecimen (Source)Anatomical Location / LateralityCollection Method / VolumeCollection TimeReceived TimeBloodVenous blood / UnknownVenipuncture / Gfdwsfl2204/20/2025 1:14 PM EST04/20/2025 1:32 PM EST Narrative Authorizing ProviderResult TypeResult StatusCristofer Leary MDLAB BLOOD ORDERABLESFinal ResultPerforming OrganizationAddressCity/State/ZIP CodePhone Number [facility] [address] [place] [address], * T4, free (04/20/2025 1:14 PM EST)ComponentValueRef RangeTest MethodAnalysis TimePerformed AtPathologist SignatureFREE T40.640.61 - 1.60 ng/dL04/21/2025 9:48 AM [facility] LABORATORYSpecimen (Source)Anatomical Location / LateralityCollection Method / VolumeCollection TimeReceived Time BloodVenous blood / UnknownVenipuncture / Ssjbeqo8104/20/2025 1:14 PM EST 04/20/2025 1:32 PM EST Narrative Authorizing ProviderResult TypeResult StatusIsaac Sapphire PAIGE BLOOD ORDERABLESFinal ResultPerforming OrganizationAddressCity/State/ZIP CodePhone Number [facility] [address] [place] [address], * (ABNORMAL) Comprehensive metabolic panel (04/20/2025 1:14 PM EST)Component ValueRef RangeTest MethodAnalysis TimePerformed AtPathologist SignatureSODIUM 720022 - 146 mmol/L106/20/2024 2:15 PM [facility] POTASSIUM3.93.5 - 5.0 mmol/L106/20/2024 2:15 PM [facility] VGTDVHXUDANVVEKECI78942 - 109 mmol/L106/20/2024 2:15 PM [facility] LABORATORYCARBON SCGBPDT3330 - 32 mmol/L106/20/2024 2:15 PM [facility] LABORATORYANION GAP75 - 15 mmol/L106/20/2024 2:15 PM [facility] LABORATORYBLOOD UREA WLIHLOTT87 - 23 mg/dL04/20/2025 2:15 PM [facility] LABORATORYCREATININE0.620.40 - 1.00 mg/dL 04/20/2025 2:15 PM [facility] LABORATORYComment:METHOD TRACEABLE TO IDMS PKYJNPNLJOUCRKX445(H)65 - 99 mg/dL04/20/2025 2:15 PM EST [facility] LABORATORYCALCIUM8.58.5 - 10.5 mg/dL04/20/2025 2:15 PM GENERAL [facility] LABORATORYTOTAL PROTEIN6.16.0 - 8.0 g/dL 04/20/2025 2:15 PM [facility] LABORATORYALBUMIN3.1(L)3.2 - 5.3 g/dL04/20/2025 2:15 PM [facility] LABORATORYALKALINE OHTXLDAPBIP6920 - 130 U/L106/20/2024 2:15 PM [facility] RMXHCZUIPRRDN24<=41 U/L106/20/2024 2:15 PM [facility] OUOAICPHMRQPL52(H)<=31 U/L106/20/2024 2:15 PM [facility] LABORATORYBILIRUBIN,TOTAL0.2(L)0.3 - 1.2 mg/dL04/20/2025 2:15 PM [facility] LABORATORYEGFR Non-Race Dependent>90>=60 ml/min/1.73sq.m 04/20/2025 2:15 PM [facility] LABORATORYComment: Reported eGFR is based on the CKD-EPI 2020 equation that does not use a race coefficient. Specimen (Source)Anatomical Location / LateralityCollection Method / Volume Collection TimeReceived TimeBloodVenous blood / UnknownVenipuncture / Unknown 04/20/2025 1:14 PM EST04/20/2025 1:32 PM EST Narrative Authorizing ProviderResult TypeResult StatusIsaac Sapphire PAIGE BLOOD ORDERABLESFinal ResultPerforming OrganizationAddressCity/State/ZIP CodePhone Number [facility] [address] [place] [address], * Echo complete W/O contrast (04/16/2025 2:29 PM EST)ComponentValueRef RangeTest MethodAnalysis TimePerformed AtPathologist SignatureLVOT stroke .88ml TLKOORYKH7937 - 44 %XCELERALVIDd4.72hxFAJCLCVLROGx0.39fsVRUJRSOGUZ0.900.6 - 1.1 cmXCELERAPW0.900.6 - 1.1 cmXCELERALVOT diameter1.53rxUKWHDWCMTD97.20cm/s XCELERAMV TDI E' (medial)8.27cm/sXCELERALA Volume Index13.7mL/x6YWEOZPPN/A ratio1.32XCELERAE wave deceleration jfll751.00msecXCELERAMV Peak E Txb075.00 cm/sXCELERAMV Peak A Vel78.60cm/sXCELERALA size3.20cmXCELERAAortic root2.50cm XCELERALA aprgkl62.39xi5QSPYUQOMM diastolic dimension (basal)27.0mmXCELERARVID d2.0zfBFWUUBLYYHYE7.38cmXCELERAAV peak fhf088.00cm/sXCELERALVOT peak vel1.16 m/sXCELERAAV VTI39.00cmXCELERALVOT peak VTI26.30cmXCELERAAV mean gradient8.00 mmHgXCELERAAV peak qruxfjfm35.75mmHgXCELERAAV valve area1.36XCELERAValve area - Index0.8XCELERAMV pressure 1/2 time53.00msXCELERAMV valve area p 1/2 method 4.79qm7SSFIIIHVZ mean gradient3.00mmHgXCELERAPV peak gradient4.84mmHgXCELERALV ESV A2C20.70mLXCELERALV ESV A4C22.20mLXCELERALV RWT 2D45.00XCELERAAV Velocity Ratio0.67XCELERALeft Ventricle Pxof409.153510585242595gEULEOJF Interventricular Septum Diastolic Thickness by 7V0rfIULORUZZvi. RA pressure3 mmHgXCELERARA area9.4dq6CXPJPCNDjpqltllmu RegionLateralityModalityChestN/A UltrasoundSpecimen (Source)Anatomical Location / LateralityCollection Method [...] EDT)ComponentValueRef Range Test MethodAnalysis TimePerformed AtPathologist SignatureALPHA YLLNJCUUKQH55.3 (H)<=9.9 ng/mL04/08/2025 1:[address] [facility] Specimen (Source)Anatomical Location / LateralityCollection Method / Volume Collection TimeReceived TimeBloodVenous blood / UnknownVenipuncture / Unknown 04/08/2025 10:01 AM EDT1 10:01 AM EDT Narrative Authorizing ProviderResult TypeResult StatusAmy L Maria G PALAB BLOOD ORDERABLES Final ResultPerforming OrganizationAddressCity/State/ZIP CodePhone Number [facility] [address] [place] [address], * B-type natriuretic peptide (04/08/2025 10:01 AM EDT)ComponentValueRef Range Test MethodAnalysis TimePerformed AtPathologist OqjvmijjeJZL41<=100 pg/mL 04/08/2025 11:24 AM EDTPROMEDST. MARY REGIONAL MEDICAL CENTERpecimen (Source) Anatomical Location / LateralityCollection Method / VolumeCollection Time Received TimeBloodVenous blood / UnknownVenipuncture / Icoqiyq0104/08/2025 10:01 AM EDT1 10:01 AM EDT Narrative Authorizing ProviderResult TypeResult StatusColleen E Fidenciogretchen PA-CLAB BLOOD ORDERABLESFinal ResultPerforming OrganizationAddressCity/State/ZIP CodePhone Number [facility] [address] [place] [address], * Hemoglobin A1c (04/08/2025 9:56 AM EDT)ComponentValueRef RangeTest Method Analysis TimePerformed AtPathologist SignatureHEMOGLOBIN A1C5.14.4 - 5.6 % 04/08/2025 1:[address]ATORYComment: ?ADA Guidelines ?Result ?HgbA1c ? Normal : ? less than 5.7 % ? Prediabetes : ?5.7 % ??to 6.4 % Diabetes : > 6.4 % ?Use with caution in patients with abnormal hemoglobin variants as ??the half-life of red blood cells and in vivo glycation rates are ??affected. EST. AVERAGE EOOJOWS874qd/dL04/08/2025 1:25 PM EDOHIOHE[facility] LABORATORYSpecimen (Source)Anatomical Location / LateralityCollection Method / VolumeCollection TimeReceived TimeBloodVenous blood / Zmvgmyd4704/08/2025 9:56 AM EDT1 10:14 AM EDT Narrative Authorizing ProviderResult TypeResult StatusCarin Mathur [facility] BLOOD ORDERABLESFinal ResultPerforming OrganizationAddressCity/State/ZIP CodePhone Number [facility] [address] [place] [address], * Pap Smear (04/02/2022 10:35 AM EDT)Specimen (Source)Anatomical Location / LateralityCollection Method / VolumeCollection TimeReceived Time04/02/2022 10:35 AM EDT1 10:37 AM EDT Narrative COPATH - 04/12/2022 12:17 PM EDT [email or web address] ? [address] [place] [address] ? [place] [address] ? Gynecologic Cytology Consultation ? Patient Name:DALIA BANKS:2000 (Age: 22)Gender:FTaken:04/02/2022eported:04/12/2022hysician(s):PHILLIP Pink ([phone])Copy To: Rec. #:[id number]: #[id number] Final Cytologic Interpretation ThinPrep Pap Test (Cervical): Satisfactory for evaluation. A transformation zone component is present. NEGATIVE FOR INTRAEPITHELIAL LESION OR MALIGNANCY. ?? jja/04/12/2022 Interpretation performed at [email or web address], [address] [place] [address] Ave, [place] [address], License number: [id number]. Electronically Signed Out By ?JORGE Olson(ASCP) Date of Last Menstrual Period: ? 02/28/22 Other Clinical Conditions: Z01.419 Curator Herbarium exam wo/abn findings Source of Specimen ??ThinPrep Pap Test (Cervical) ? Thin Prep Pap (ROOM CLEANER) Fee Code(s): ?? G0145 Authorizing ProviderResult TypeResult StatusCayla Olivas FUNERAL DIRECTOR/EMBALMER/OWNER-SOLUTION ANALYST PATHOLOGY/CYTOLOGY ORDERABLESFinal ResultPerforming OrganizationAddress City/State/ZIP CodePhone Number [facility] * Chlamydia/GC by PCR Omaira Swab (03/20/2022 6:33 PM EDT)ComponentValueRef Range Test MethodAnalysis TimePerformed AtPathologist SignatureSpecimen sourceCERVIX 03/20/2022 9:[address] [facility]:Corrected on 03/20 AT 2154: Previously reported as SWABChlamydia DNA PCRNegativeNegative^Negative 03/21/2022 12:[address] [facility]: ? Chlamydia trachomatis not detected by nucleic acid amplification. This does not exclude the possibility of infection because results are dependent on adequate specimen collection. ? Gonorrhea DNA PCRNegativeNegative^Zwkaeiko21/12/2022 12:[address] [facility]: ? Neisseria gonorrhoeae not detected by nucleic acid amplification. This does not exclude the possibility of infection because results are dependent on adequate specimen collection. ? Specimen (Source)Anatomical Location / LateralityCollection Method / Volume Collection TimeReceived IavxSHQD68/11/2022 6:33 PM EDT1 9:50 PM EDT Narrative Authorizing ProviderResult TypeResult StatusComelissa Seaman MDMICROBIOLOGY - GENERAL ORDERABLESEdited Result - FinalPerforming OrganizationAddress City/State/ZIP CodePhone Number [facility] [address] [place] [address] from Last 3 Months or Most Recently Relevant to Health Maintenance Insurance Advance Directives * Full Code (Latest Code Status on File) Date ActivatedDate InactivatedComments02/17/2025 6:35 PM02/22/2025 6:48 PM * Full Code Date ActivatedDate JkrihsigkwfNcvksxuo41/27/2021 4:55 PM06/08/2021 4:33 PM * Full Code Date ActivatedDate InactivatedComments01/07/2018 6:44 AM01/07/2018 2:17 PM * Full Code Date ActivatedDate InactivatedComments10/23/2016 11:27 AM10/24/2016 12:42 PM * Full Code Date ActivatedDate InactivatedComments08/01/2016 12:52 AM08/01/2016 4:47 PM Care Teams Team MemberRelationshipSpecialtyStart DateEnd Date Dru Rodriguez DO [address] [place] [address] [facility]01/01/17
--- OUTSIDE RECORDS SUMMARY | 2025-05-30 22:21 | XMS_ITS | Encounter Summary ---
Author Organization [facility] tem Address [facility] [place]-[id number] [address] [place] [address] Care Team Providers Care Change Control Coordinator Name Role Phone JenniferDru April MUNGUIA Primary Care Provider [phone] Encounter Details DateTypeDepartmentCare Team (Latest Contact Info)Zxtfmpfzsve84/19/2025Telephone Maternal- Medicine at [facility] [address] [place] [phone] Odilia Dumas RN [address] [address] Social History Tobacco UseTypesPacks/DayYears UsedDateSmoking Tobacco: NeverSmokeless Tobacco: NeverAlcohol UseStandard Drinks/WeekCommentsYes0 (1 standard drink = 0.6 oz pure alcohol)[facility] UtilitiesAnswerDate RecordedIn the past 12 months has [...] care, and heating?Not hard at all02/17/2025PHQ-2AnswerDate RecordedTotal Ibsof912Finuniversity of [facility] [place] of Occupational Health - Occupational Stress QuestionnaireAnswerDate [...] part of a household?No02/17/2025hildcareAnswerDate RecordedDo problems getting child's nurse make it difficult for you to [...] and direction in my life.Agree02/17/2025Estimated Date of PsadoikjDidsmjiyNhs93/27/2026ased on last menstrual period of 10/30/2024Sex and Gender InformationValueDate RecordedSex Assigned at FlzakHilbkc30/22/2025 1:51 AM EDTLegal SexFemale 01/13/2015 11:58 AM EDTGender IsnbsmakFslgkh26/22/2025 1:51 AM EDTSexual OrientationNot on filedocumented as of this encounter Miscellaneous Notes * Telephone Encounter - Odilia Dumas RN - 05/28/2025 10:34 AM ESTSummary: [facility] Reports Called. No [...] Plan of Treatment DateTypeDepartmentCare Team (Latest Contact Info)Seovakeqwjz60/02/2026 3:30 PM ESTAppointment [facility] - [facility] [address] [place] [phone] documented as of this encounter Visit Diagnoses Diagnosis Uncontrolled type 1 diabetes mellitus with hyperglycemia, with long-term current use of insulin ([facility]) documented in this encounter Additional Health Concerns AssessmentNoted TimePHQ-9 Depression Total Score: 8:31 AM ESTA Body Mass Index follow-up plan has been documented for the jhzpeec4706/12/2023 4:35 PM ESTdocumented as of this encounter Care Teams Team MemberRelationshipSpecialtyStart DateEnd Date Dru Rodriguez DO [address] [place] [address] PCP - General01/01/17documented as of this encounter
[2025-05-30 22:48] VITALS: BP 125/72; PULSE 88
[2025-05-30 23:12] LABS: Glucose Urine UA 250 mg/dL (NEGATIVE)
[2025-05-30 23:24] LABS: Cast Seen? SEEN #/LPF (NONE SEEN); Crystals Seen? None Seen #/HPF (None Seen); Urine Culture Indicated YES-FRMC
== END 2025-05-30 23:30 | disposition home or self-care (01) ==
LOC: FBCO 22:18 → FBC 22:20
PROVIDERS: PCP Family Medicine; Visit Provider Obstetrics & Gynecology
DX: O26.893 Other specified pregnancy related conditions, third trimester (principal); Z3A.30 30 weeks gestation of pregnancy
CPT/HCPCS: 59025; 81001; 84112; 87086

== ENCOUNTER 2025-06-01 18:54 | Outpatient (OUT) | payer OTHER, BC, SELFPAY ==
--- OUTSIDE RECORDS SUMMARY | 2025-05-18 14:40 | XMS_ITS | Encounter Summary ---
Author Organization [facility] Address [address] [place] [address] Care Team Providers Care Geotechnical Field Technician Name Role Phone RonyDru lozada April DO Primary Care Provider [phone]- [phone] Dru Rodriguez DO Unavailable [phone] Reason for Visit * ReasonCommentsRoutine Visit Encounter Details DateTypeDepartmentCare Team (Latest Contact Info)Teryakbcmzt32/09/2025 2:40 PM ESTRoutine [facility] [address] [place] [address] Katharine Cummins PA [address] [place], [facility] 28 weeks gestation of ([facility]); Type 1 diabetes mellitus during , antepartum ([facility]); Third trimester ([facility]) Social History Tobacco UseTypesPacks/DayYears UsedDateSmoking Tobacco: NeverSmokeless [...] relatives?Twice a week03/11/2023How often do you attend denominational or alevism services?1 to 4 times per year03/11/2023o you belong to any clubs or organizations such as denominational groups, unions, [email or web address] or athletic laura ups, or school groups?No03/11/2023How often do you attend meetings of the clubs or organizations you belong to?Never03/11/2023re you , , , , never , or living with a partner?Iwyowdf7303/11/2023 AUDIT-CAnswerDate RecordedQ1: How often do you have a drink containing alcohol? Monthly or less03/11/2023Q2: How many drinks containing alcohol do you have on a typical day when you are drinking?3 or Q3: How often do you have six or more drinks on one occasion?Less than qkxpmzs5803/11/2023Overall Financial Resource Strain (CARDIA)AnswerDate RecordedHow hard is it for you to pay for the very basics like food, housing, medical care, and heating?Somewhat hard 03/11/2023HQ-2AnswerDate RecordedPatient Health Questionnaire-2 Score0 03/25/2025Fin[facility] [place] of Occupational Health - Occupational Stress QuestionnaireAnswerDate [...] steady place to sleep or slept in [facility] (including now)?No03/11/2023Estimated Date of KycgleskYjghnxfxSpt26/27/2026ased on last menstrual period of 10/30/2024Sex and Gender InformationValueDate RecordedSex Assigned at EcklvEpjmor46/01/2023 1:10 PM EDTLegal YrdIxskdc04/15/2023 6:51 PM EDTGender KoqcrrnuFarglc69/01/2023 1:10 PM EDTSexual IdpyprjyvorUsbslxan61/01/2023 1:10 PM EDTdocumented as of this encounter Last Filed Vital Signs Vital SignReadingTime TakenCommentsBlood Fztvdere023/8012 2:46 PM EST 134/84- recheckPulse--Temperature--Respiratory Rate--Oxygen Saturation--Inhaled Oxygen Concentration--Hqrndh76.7 kg (171 lb 6.4 oz)05/18/2025 2:46 PM ESTHeight- -Body Mass Index35.8203/25/2025 8:46 AM EDTdocumented in this encounter Progress Notes * TOYA Carr - 05/18/2025 2:40 PM EST Reason for Appointment: Patient ID: Dalia Shaw [...] unresponsive hypoglycemia cholecalciferol (Vitamin D-3) 1.25 MG (43230 UT) capsule every week Continuous Blood Gluc Transmit (Dexcom G6 transmitter) misc 1 each, Subcutaneous, Every 3 months, Use as instructed Continuous Glucose Sensor (Dexcom G7 Sensor) misc USE WITH OMNIPOD 5 TO MANAGE BLOOD SUGARS AND CHANGE EVERY 10 DAYS doxylamine (UNISOM) 25 mg, 4 times daily PRN HumaLOG 100 UNIT/ML solution USE PER INSULIN PUMP INSTRUCTION MAX OF 80 UNITS DAILY Insulin Disposable Pump (Omnipod 5 PbdN7K7 Pods Gen 5) misc 1 each, Subcutaneous, [...] TO CHECK GLUCOSE 4 TIMES DAILY Vit w/Oc-Qswqtobrv-UD (PNV PO) Take by mouth promethazine (PHENERGAN) 25 mg, Every 6 hours PRN pyridoxine (VITAMIN B-6) 100 mg, Every morning ALLERGIES Allergies Allergen Reactions Amoxicillin Anaphylaxis Mouth irritation Penicillins Anaphylaxis Has since taken without reaction PROBLEMS Active Ambulatory Problems Diagnosis Date Noted Bulging lumbar disc 11/08/2022 Chronic fatigue 11/08/2022 Lumbago with sciatica, left side 11/08/2022 Sciatica 11/08/2022 Celiac disease in pediatric patient ([facility]) 05/23/2016 Generalized anxiety disorder 01/01/2017 Mild intermittent asthma ([facility]) 05/23/2016 Panic disorder without agoraphobia 01/01/2017 Biliary dyskinesia 11/08/2022 Type 1 diabetes mellitus without complications ([facility]) 02/04/2023 Type 1 diabetes mellitus with hypoglycemia [...] nursing note reviewed. Exam conducted with a owner operator present. Vitals: Estimated body mass index is 35.82 kg/m?? as calculated from the following: Height as of 03/25/25: 4' 10 . Weight as of this encounter: 171 lb 6.4 oz. BP: Patient's last menstrual period was 10/30/2024. Assessment/Plan ICD-10-CM 1. 28 weeks gestation of ([facility]) Z3A.28 POCT urinalysis dipstick manually resulted 2. Type 1 diabetes mellitus during , antepartum ([facility]) O24.019 3. Third trimester ([facility]) Z34.93 POCT urinalysis dipstick manually resulted Assessment/Plan Return OB: Patient presents today for a routine obstetrics appointment. Patient is currently 28w4d . Patient states she is doing well but has complaints of being tired due to current . Patient has verbalizes frequent movement. labor precautions was discussed/given and patient was instructed to perform kick counts three times a day. Orders Placed This Encounter Procedures POCT urinalysis dipstick manually resulted Patient had appointment yesterday with [facility] and they adjusted insulin, she had elevated pressure here today but came down as she was here, she will continue to check at home and work and let us know if any issues arise. She is also doing nst and bpp biweekly and weekly Follow Up: Patient is to return to office in 2 week for routine OB appointment. Documented by Aline Fernández LPN on behalf of: TOYA Carr documented in this encounter Plan of Treatment DateTypeDepartmentCare Team (Latest Contact Info)Ebwpxkqnlce71/07/2026 4:00 PM ESTRoutine [facility] [address] [place] [address] Dixie Gan, COMPRESSOR OPERATOR [address] [place] [phone] 06/30/2025 3:50 PM ESTRoutine [facility] [address] [place] [address] Kolton Cao DO [address] [place] [address] documented as of this encounter Goals GoalPatient Goal TypeAssociated ProblemsRecent ProgressPatient-Stated?Author Reminders Care PlanOB RemindersNoOpen Scheduling, Backgrounddocumented as of this encounter Procedures Procedure NamePriorityDate/TimeAssociated DiagnosisCommentsPOCT URINALYSIS EGRMWNOLDfzvley64/09/2025 2:51 PM EST 28 weeks gestation of ([facility]) Third trimester ([facility]) documented in this encounter Results * (ABNORMAL) POCT urinalysis dipstick manually resulted (05/18/2025 2:51 PM EST) ComponentValueRef RangeTest MethodAnalysis TimePerformed AtPathologist SignatureColor, UAYellowClarity, UAClearGlucose, UANegativeNegative - 2000(110) ++++ mg/dLBilirubin, UANegativeNegative - 4(70) +++ mg/dLKetones, UA NegativeNegative - 160(16) ++++ mg/dLSpec Grav, UA1.0251 - 1.03Blood, UA NegativeNegative - 50 Guy/mcLpH, UA6.05 - 9Protein, UAPositiveNegative - 1999(20) ++++ mg/dLUrobilinogen, UA1.00.2 - 12 mg/dLLeukocytes, UA3+Negative - 500+++ Danny/mcLNitrite, UANegativeNegative - PositiveSpecimen (Source) Anatomical Location / LateralityCollection Method / VolumeCollection Time Received TvlxFfrpw92/09/2025 2:51 PM EST Narrative Authorizing ProviderResult TypeResult StatusBuchanan [facility] TEST ENTER/EDIT ORDERABLESFinal Result documented in this encounter Visit Diagnoses Diagnosis 28 weeks gestation of ([facility]) Type 1 diabetes mellitus during , antepartum ([facility]) Third trimester ([facility]) state, incidental documented in this encounter Additional Health Concerns Active ProblemsNoted DateDiagnosed DateOB Anmfmjhmh87/24/2025 documented as of this encounter Care Teams Team MemberRelationshipSpecialtyStart DateEnd Date Dru Rodriguez DO [address] [place] [address] PCP - GeneralFamily Medicine10/22/22 Dru Rodriguez DO [address] [place] [address] PCP - Medical [place] Fmcjaoprpn37/1/2312documented as of this encounter
--- OUTSIDE RECORDS SUMMARY | 2025-05-31 15:30 | XMS_ITS | Encounter Summary ---
Author Organization [facility] Address [address] [place] [address] Care Team Providers Care Control Officer Manager Name Role Phone Dru Rodriguez DO Primary Care Provider [phone] Dru Rodriguez DO Unavailable [phone] Reason for Visit * ReasonCommentsRoutine Visit Encounter Details DateTypeDepartmentCare Team (Latest Contact Info)Bxbtmqkwojp18/22/2025 3:30 PM ESTRoutine [facility] [address] [place] [phone] Kolton Cao DO [address] [place], [facility] Third trimester ([facility]); 30 weeks gestation of ([facility]) Social History Tobacco UseTypesPacks/DayYears UsedDateSmoking Tobacco: [...] week03/11/2023How often do you attend denominational or synagogue services?1 to 4 times per year03/11/2023o you belong to any clubs or organizations such as denominational groups, unions, fraPulse or athletic laura ups, or school groups?No03/11/2023How often do you attend meetings of the clubs or organizations you belong to?Never03/11/2023re you , , , , never , or living with a partner?Sbplonm6203/11/2023 AUDIT-CAnswerDate RecordedQ1: How often do you have a drink containing alcohol? Monthly or less03/11/2023Q2: How many drinks containing alcohol do you have on a typical day when you are drinking?3 or Q3: How often do you have six or more drinks on one occasion?Less than cjcgoox9103/11/2023Overall Financial Resource Strain (CARDIA)AnswerDate RecordedHow hard is it for you to pay for the very basics like food, housing, medical care, and heating?Somewhat hard 03/11/2023HQ-2AnswerDate RecordedPatient Health Questionnaire-2 Score0 03/25/2025[facility] [place] of Occupational Health - Occupational Stress QuestionnaireAnswerDate [...] steady place to sleep or slept in [facility] (including now)?No03/11/2023Estimated Date of WemdcdxrDnhcrytpTft73/27/2026Based on last menstrual period of 10/30/2024Sex and Gender InformationValueDate RecordedSex Assigned at RflsgNpamiv74/01/2023 1:10 PM EDTLegal YiyKwrstp11/15/2023 6:51 PM EDTGender ZktucvfdZcparx45/01/2023 1:10 PM EDTSexual GnyzmtzwzdzZsanbmvz92/01/2023 1:10 PM EDTdocumented as of this encounter Last Filed Vital Signs Vital SignReadingTime TakenCommentsBlood Eewdjxgy836/7405/31/2025 3:50 PM EST Pulse--Temperature--Respiratory Rate--Oxygen Saturation--Inhaled Oxygen Concentration--Ohylru61.2 kg (172 lb 6.4 oz)05/31/2025 3:50 PM [...] dexcom g7 sensor, doxylamine, humalog, omnipod 5 rjlc8c8 pods gen 5, lantus solostar, ondansetron odt, onetouch ultra test, vit w/yg-rpxndtfoe-hb, promethazine, and pyridoxine. Medical History: Active Ambulatory [...] diabetes mellitus with hypoglycemia and without coma ([facility]) 02/04/2023 PTSD (post-traumatic stress disorder) 09/06/2023 Mixed obsessional thoughts and acts 09/13/2023 Diabetes type 1, controlled ([facility]) 01/25/2011 Hypoglycemia associated with diabetes ([facility]) 03/09/2025 Resolved Ambulatory Problems Diagnosis Date Noted Blood blister 11/08/2022 Diabetic ketoacidosis associated with type 1 diabetes mellitus ([facility]) 02/22/2017 Hypoglycemia due to type 1 diabetes mellitus (HCC) 11/08/2022 Other chronic pain 11/08/2022 Type 1 diabetes mellitus with ketoacidosis without coma ([facility]) 08/01/2016 Acute renal insufficiency 02/18/2017 Mechanical breakdown of insulin pump 02/18/2017 Right upper quadrant pain 11/08/2022 Chronic cholecystitis 11/29/2022 Past Medical History: Diagnosis Date Awareness under anesthesia 2014 covid and DKA 05/2021 Exercise-induced asthma (HCC) Lactose intolerance Postoperative wound infection Type 1 diabetes mellitus without complication ([facility]) Family History[1] Social History Tobacco Use Smoking [...] nursing note reviewed. Exam conducted with a marketing engineer present. Vitals: Estimated body mass index is 36.03 kg/m?? as calculated from the following: Height as of 03/25/25: 4' 10 . Weight as of this encounter: 172 lb 6.4 oz. BP: 124/74 Patient's last menstrual period was 10/30/2024. Assessment/Plan Encounter Diagnosis: ICD-10-CM 1. Third trimester ([facility]) Z34.93 POCT urinalysis dipstick manually resulted 2. 30 weeks gestation of ([facility]) Z3A.30 POCT urinalysis dipstick manually resulted [...] Plan of Treatment DateTypeDepartmentCare Team (Latest Contact Info)Phfqzmapwbr14/07/2026 4:00 PM ESTRoutine [facility] [address] [place] [phone] iDxie Gan, CREDIT COLLECTIONS SPECIALIST [address] [place] [phone] 06/30/2025 3:50 PM ESTRoutine [facility] OBD[facility] [address] [place] [phone] Kolton Cao DO [address] [place], [place] [phone] documented as of this encounter Goals GoalPatient Goal TypeAssociated ProblemsRecent ProgressPatient-Stated?Author Reminders Care PlanOB RemindersNoOpen Scheduling, Backgrounddocumented as of this encounter Procedures Procedure NamePriorityDate/TimeAssociated DiagnosisCommentsPOCT URINALYSIS QKXYVEPLWecmguz73/22/2025 4:00 PM EST Third trimester ([facility]) 30 weeks gestation of ([facility]) documented in this encounter Results * [...] Location / LateralityCollection Method / VolumeCollection TimeReceived MkirZtxpw01/22/2025 4:00 PM EST Narrative Authorizing ProviderResult TypeResult StatusCorey Kiley DOPOINT OF CARE TEST ENTER/EDIT ORDERABLESFinal Result documented in this encounter Visit Diagnoses Diagnosis Third trimester ([facility]) state, incidental 30 weeks gestation of ([facility]) documented in this encounter Additional Health Concerns Active ProblemsNoted DateDiagnosed DateOB Grjkgjfzr08/24/2025 documented as of this encounter Care Teams Team MemberRelationshipSpecialtyStart DateEnd Date Dru Rodriguez DO [address] [place] [address] PCP - GeneralFamily Medicine10/22/22 Dru Rodriguez DO [address] [place] [address] PCP - Medical [place] Zhiyifxyqt21/1/2312documented as of this encounter
--- OUTSIDE RECORDS SUMMARY | 2025-05-31 19:38 | XMS_ITS | Continuity of Care Document ---
Author Organization [facility] Address [address] [place] [address] Phone Care Team Providers Care Speed Runner Name Role Phone Dru Rodriguez DO Primary Care Provider [phone] Greg White MD Emergency Provider Carissa Queen APRN Attending Provider [phone] Kolton Cao DO Attending Provider Care Teams Patient Care Team [...] May 28, 2025 End: May 28, 2025 Visit Care Team Team Status: Inactive Member Role/Relationship Status Dates Kolton Cao DO Attending Provider Active Start : May 30, 2025 End: May 30, 2025 Chief Complaint and Reason for Visit Chief Complaint Admit Date 18wks iup blood sugar issues February 092024 7:50pm 12 week March 09, 2025 8:08am Reason for Visit Admit Date Dietary counseling and surveillance Sept emb2024 8:08am Hyperlipidemia, unspecified March 092024 8:08am Insulin pump in place March 09 8:08am correction (current) use of insulin Septe mb2024 8:08am March 09, 2025 8:08am Type [...] Date Onset Date 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, 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 [...] D deficiency Vitamin D deficiency, unspecifiedFollow with wrrp-vtc-sdypseb dosing 2000 units once dailyBlood-Glucose Sensor (Dexcom G6 Sensor) deviceActive0.Scxqy36MxvOctober 29, 2024 11:00pmType 1 diabetes mellitus with hyperglycemia Type 1 diabetes mellitus with hyperglycemiaAs directed Change every 10 days Blood-Glucose Transmitter (Dexcom G6 Transmitter) deviceActive0.Wvxsp94CgoOctober 29, 2024 11:00pmType 1 diabetes mellitus with hyperglycemia Type 1 diabetes mellitus with hyperglycemiaAs directed Change every 90 days Insulin Lispro 100 unit/mL cimtdjvfHuaptvylbuqt1LMOAGVXie as Heislviy392Bqrc 2024 7:44amSeptember 2024 8:06amType 1 diabetes mellitus with hyperglycemia Type 1 diabetes mellitus with hyperglycemiasubcutaneously use as directed; INJECT INSULIN SUBCUTANEOUSLY PER PUMP (MAX DAILY DOSE 80 UNITS)Insulin Pump Cart,Auto,Bt,G6/7 (Omnipod 5 G6-G7 Pods (Gen 5)) cartridgeDiscontinued0.Uodqn176 January 21, 2025 3:31pmSeptember 2024 8:06amType 1 diabetes mellitus with hyperglycemia Type 1 diabetes mellitus with hyperglycemiaUse to deliver insulin change every 3 daysBlood-Glucose Sensor (Dexcom G7 Sensor) deviceActive0.Kjsao81Zkuhgh 2024 3:31pmType 1 diabetes mellitus with hyperglycemia Type 1 diabetes mellitus with hyperglycemiaUse with Omnipod 5 to manage BG change every 10 daysBlood-Glucose Sensor (Dexcom G7 Sensor) deviceActive0.Route9 Nov2024 8:50amType 1 diabetes mellitus with hyperglycemia Type 1 diabetes mellitus with hyperglycemiaAs directed change every 10 daysBlood Sugar Diagnostic (True Metrix Glucose Test Strip) stripActive0.Rvngn0133Kshttcny 2024 8:49amType 1 diabetes mellitus with hyperglycemia Type 1 diabetes mellitus with hyperglycemia Dx E10.9 defer to insurance preferredAs directed test blood sugar four times dailyInsulin Pump Cart,Auto,Bt,G6/7 (Omnipod 5 G6-G7 Pods (Gen 5)) cartridge Active0.Agseo320Jcjfpmbh 2024 8:40amType 1 diabetes mellitus with hyperglycemia Type 1 diabetes mellitus with hyperglycemiaUse to deliver insulin change every 1.5 daysInsulin Lispro 100 unit/mL wsmmowwjFlreur9FWGREPGpw as Drsftslu6034 May 25, 2025 8:41amType 1 diabetes mellitus with hyperglycemia Type 1 diabetes mellitus with hyperglycemiasubcutaneously use as directed; INJECT INSULIN SUBCUTANEOUSLY PER PUMP (MAX DAILY DOSE 125 UNITS)Unknown Promethazine 25 mg GloypzCcfjjhkiqkeb62TRFFU6T as needed for Sqyyxw004Fqunhan 2021 12:00amApril 2021 8:03pmInsulin Lispro 100 unit/mL solution DiscontinuedApril 2021 11:00pmApril 2024 1:33pmadjusted via pump Multivitamin KjageddUnipzefyrdsc3TNLGKZkpuiKbtdj 2021 11:00pmSeptember 2024 7:19amZinc Tablet,RocttmmeRnllroecdnbd4KVMNIXzmrnRsiol 2021 11:00pmApril 2024 1:33pmMecobalamin (Vitamin B12) (B12 Active) 1,000 mcg Tablet,ChewableDiscontinuedMCGPODailyApril 2021 11:00pmMarch 2022 10:34amLevofloxacin 750 mg hjoiodOemthrfurlqh289OCIHYrymj89Goeir 2021 11:00pmMarch 2022 10:35amInsulin Lispro 100 unit/mL solutionDiscontinued1 sliding scale doseCNTSUBQINFUse as DirectedApr2024 1:32pmMay 2024 9:59amadjusted via pumpGabapentin 100 mg ubjfpgzWapwecjqnqdw919SPHYOiwwu at 0730, 1530, 2330March 2022 12:00amJune 2022 10:37amFerrous Sulfate (Ferosul) 325 mg (65 mg iron) axocnlDtlzmphdurgb257RLZTYmwkpXdjlh 2022 12:00amApril 2024 1:31pmTramadol 50 mg opdnfxRoycfwxdfjiq74ZNTDP1P as needed for vpmp1993Ffir 2022 11:00pmJune 2022 10:38amCholecystitis Cholecystitis, unspecifiedTramadol 50 mg faywxzPzhapbhmvsvh08FXAZY1P as needed for iddu8245Evuf 2022 11:00pmApril 2024 1:33pmCholecystitis Cholecystitis, unspecifiedBlood-Glucose Meter (True Metrix Air Glucose Meter) miscDiscontinued0.RouteSeptember 15, 2024 11:00pmApril 2024 2:03pmAs directed Blood Sugar Diagnostic (True Metrix Glucose Test Strip) stripDiscontinued0.Route September 15, 2024 11:00pmApril 2024 2:03pmAs directedLancets miscDiscontinued 0.RouteSeptember 15, 2024 11:00pmApril 2024 2:03pmAs directedBlood Sugar Diagnostic (True Metrix Glucose Test Strip) stripDiscontinued0.Btgzq0030Crtwk 2024 1:58pmMay 2024 9:59amDx E10.9 defer to insurance preferredAs directed test blood sugar four times dailyBlood-Glucose Meter (True Metrix Air Glucose Meter) miscActive0.Dsvom98Duful 2024 2:00pmDx E10.9 defer to insurance preferredAs directed test blood sugar four times dailyLancets misc Active0.Agiqi8043Nkujj 2024 2:00pmDx E10.9 defer to insurance preferredAs directed test blood sugar four times dailyBlood Sugar Diagnostic (True Metrix Glucose Test Strip) stripDiscontinued0.Zaemu7917YueOctober 14, 2024 9:53amDecember 2024 8:50amType 1 diabetes mellitus with hyperglycemia Type 1 diabetes mellitus with hyperglycemia Dx E10.9 defer to insurance preferredAs directed test blood sugar four times dailyInsulin Lispro 100 unit/mL eotpjitbUoxacdnwvuwy1MGWZGWVRDVAfu as Directed October 14, 2024 9:56amSeptember 2024 7:18amType 1 diabetes mellitus with hyperglycemia Type 1 diabetes mellitus with hyperglycemiavia continuous subcutaneous infusion use as directed; adjusted via pumpInsulin Lispro 100 unit/mL solution Yiiiyxwdfzju4FFPAVXLhd as Pjapsqdd013Qkw 6th, 2025 11:00pmJune 2024 7:44am Type 1 diabetes mellitus with hyperglycemia Type 1 diabetes mellitus with hyperglycemiasubcutaneously use as directed; INJECT INSULIN SUBCUTANEOUSLY PER PUMP (MAX DAILY DOSE 80 UNITS)Blood-Glucose Sensor (Dexcom G7 Sensor) deviceDiscontinued0.Uwoxn79HvzOctober 27, 2024 11:00pm January 21, 2025 3:31pmType 1 diabetes mellitus with hyperglycemia Type 1 diabetes mellitus with hyperglycemiaUse with Omnipod 5 to manage BG change every 10 daysInsulin Pump Cart,Auto,Bt,G6/7 (Omnipod 5 G6-G7 Pods (Gen 5)) cartridgeDiscontinued0.Qddui387Roz2024 11:00pmAugust 2024 3:31pmType 1 diabetes mellitus with hyperglycemia Type 1 diabetes mellitus with hyperglycemiaUse to deliver insulin change every 3 daysPrenatal 81-Qzdk-Guqbcu 9-Dha 31 mg iron- 1 mg-200 mg lnwrhwwYjaqgo8TCAYW DailyJuly 2024 11:00pmUnknownPsyllium Husk (Fiber (Psyllium Husk)) 0.4 gram capsuleActive0.4GMPODailyJuly 2024 11:00pmUnknownBlood-Glucose Sensor (Dexcom G7 Sensor) deviceDiscontinued0.RouteSeptember 2024 11:00pmNovember 2024 8:50amAs directedInsulin Lispro 100 unit/mL solutionDiscontinued0 SUBCUTUse as Nypttsfh719Kkdtkhtho 30th, 2025 8:03amSeptember 2024 8:07am Type 1 diabetes mellitus with hyperglycemia Type 1 diabetes mellitus with hyperglycemiasubcutaneously use as directed; INJECT INSULIN SUBCUTANEOUSLY PER PUMP (MAX DAILY DOSE 100 UNITS)Insulin Pump Cart,Auto,Bt,G6/7 (Omnipod 5 G6-G7 Pods (Gen 5)) cartridgeDiscontinued0.Xpmlg387 March 09, 2025 8:06amDecember 2024 8:42amType 1 diabetes mellitus with hyperglycemia Type 1 diabetes mellitus with hyperglycemiaUse to deliver insulin change every 3 daysInsulin Lispro 100 unit/mL keuywjrpFnrovtcjphxg5XFGRQXEvl as Jpjacich588 March 09, 2025 8:06amDecember 2024 8:42amType 1 diabetes mellitus with hyperglycemia Type 1 diabetes mellitus with hyperglycemiasubcutaneously use as directed; INJECT INSULIN SUBCUTANEOUSLY PER PUMP (MAX DAILY DOSE 100 UNITS) Procedures Procedure Date Performed Status Urine Culture May 28, 2025 completed Urine Culture March 06, 2025 completed Urine Culture May 30, 2025 active Relevant Diagnostic Tests and/or Laboratory Data Laboratory Results Test Collection Date/Time Result Date/Time Result Interpretation Reference Range Result Comment Performing Site Bedside Glucose March 09, 2025 7:16am February 7:48am 163 Corrected White Blood CountSeptember 2024 8:54pmSeptember 2024 9:12pm11.4 10*3/uL3.8-11.6FS[facility] [id number] [address] [facility] 11584Hgszddaxtwq WBC CountSeptember 2024 8:54pmSeptember 2024 9:12pm11.4 10*3/uL3.8-11.6FSalem [facility] [id number] [address] [facility] 38810Sxg Blood CountSeptember 2024 8:54pmSeptember 2024 9:12pm4.36 10*6/uL3.60-5.00[facility] [id number] [address] [facility] 59124EupqdiovyhRmzfxlqaj 2024 8:54pmSeptember 2024 9:12pm13.1 g/dL11.8-15.4F[facility] [id number] [address] [facility] 81279CuvxwyickfNsjhotsye 2024 8:54pmSeptember 2024 9:12pm38.5 %34.0-46.4F[facility] [id number] [address] [place] [address] 89707Zbof Corpuscular VolumeSeptember 2024 8:54pmSeptember 2024 9:12pm88.3 sJ60-138YqfeovcfzCorey Hospital [facility] [id number] [address] [facility] 00058Rsmg Corpuscular HemoglobinSeptember 2024 8:54pmSeptember 2024 9:12pm30.1 pg24.7-34.3FMed[facility] [id number] [address] [place] [address] 88514Lbss Corpuscular Hemoglobin ConcentSeptember 2024 8:54pm March 06, 2025 9:12pm34.0 g/dL32.0-35.0[facility] [id number] [address] [facility] 56960Dkl Cell Distribution WidthSeptember 2024 8:54pmSeptember 2024 9:12pm13.5 %11.9-15.3F[facility] [id number] [address] [facility] 19370Cpoqnqeq CountSeptember 2024 8:54pmSeptember 2024 9:39oa406 10*3/dM441-168YuabtwhijCorey [facility] [id number] [address] [place] [address] 30797Cudz Platelet VolumeSeptember 2024 8:54pmSeptember 2024 9:12pm8.6 fL6.3-10.7F[facility] [id number] [address] [facility] 41894Uvxkwniv Distribution WidthSept2024 8:54pmSept2024 9:12pm16.87 %0.00-20.00[facility] [id number] [address] [facility] 26621Ufwakgmjftd (%) (Auto)March 06, 2025 8:54pmSept2024 9:12pm80.3 %.[facility] [id number] [address] [facility] 44242Kqlnkbddksg (%) (Auto)March 06, 2025 8:54pmSept2024 9:12pm13.2 %.[facility] [id number] [address] [facility] 29703Hydcilzke (%) (Auto)March 06, 2025 8:54pmSept2024 9:12pm5.4 %.[facility] [id number] [address] [facility] 92431Bidwrndwnzx (%) (Auto)March 06, 2025 8:54pmSept2024 9:12pm0.5 %.[facility] [id number] [address] [facility] 80806Qogapfnje (%) (Auto)March 06, 2025 8:54pmSept2024 9:12pm0.6 %.[facility] [id number] [address] [facility] 71132Tzvgmddfu RBC Relative Count (auto)March 06, 2025 8:54pm March 06, 2025 9:12pm0.1 /100{WBC}0-0.5F[facility] [id number] [address] [facility] 77264Qaslvkqtcjc # (Auto)March 06, 2025 8:54pmSept2024 9:12pm9.2 10*3/uLAbove high normal1.8-7.7F[facility] [id number] [address] [facility] 02871Uqhurmxqwah # (Auto)March 06, 2025 8:54pmSeptember 2024 9:12pm1.5 10*3/uL1.00-4.8[facility] [id number] [address] [facility] 97666Zimqykglz # (Auto)March 06, 2025 8:54pmSeptember 2024 9:12pm0.6 10*3/uL0.0-0.8[facility] [id number] [address] [facility] 38169Nwsghbpnvva # (Auto)March 06, 2025 8:54pmSeptember 2024 9:12pm0.1 10*3/uL0.0-0.45[facility] [id number] [address] [facility] 82504Qhzlwmvvd # (Auto)March 06, 2025 8:54pmSeptember 2024 9:12pm0.1 10*3/uL0.0-0.2F[facility] [id number] [address] [facility] 97499Opdbd ColorSeptember 2024 9:04pmSeptember 2024 9:12pmLight-yellowYellowCorey Hospital [facility]tr [id number] [address] [facility] 49981Ebfqg AppearanceSeptember 2024 9:04pmSeptember 2024 9:12pmCloudyAbnormal (applies to non-numeric results)ClearCore[facility] [id number] [address] [facility] 68032Dowca Specific GravitySeptember 2024 9:04pmSeptember 2024 9:12pm1.0071.001-1.030[facility] [id number] [address] [facility] 55799Rjfhg pHSeptember 2024 9:04pmSeptember 2024 9:12pm 7.05.0-9.0[facility] [id number] [address] [facility] 27418Hkhdv Leukocyte EsteraseSeptember 2024 9:04pmSeptember 2024 9:12pm4+Above high normalNegativeCorey Hospital [facility] [id number] [address] [facility] 93133Edofn NitriteSeptember 2024 9:04pmSeptember 2024 9:12pmNegativeNegativeCore[facility] [id number] [address] [facility] 45571Jqovi ProteinSeptember 2024 9:04pmSeptember 2024 9:12pmNegative mg/dLNegativeCore[facility] [id number] [address] [facility] 03459Kgugx Glucose (UA)March 06, 2025 9:04pmSeptember 2024 9:12pmNormal mg/dLNormalCorey Hospital [facility] [id number] [address] [facility] 62664Dppbd KetonesSeptember 2024 9:04pmSeptember 2024 9:12pmNegativeNegativeCore[facility] [id number] [address] [facility] 10482Tzwvy UrobilinogenSeptember 2024 9:04pmSeptember 2024 9:12pmNormal mg/dLNormalCorey Hospital [facility] [id number] [address] [facility] 65272Pcksz BilirubinSeptember 2024 9:04pmSeptember 2024 9:12pmNegativeNegativeCore[facility] [id number] [address] [facility] 98524Cgqlq Occult BloodSeptember 2024 9:04pmSeptember 2024 9:12pmNegativeNegativeCore[facility] [id number] [address] [facility] 06258Lcfpr RBCSeptember 2024 9:04pmSeptember 2024 9:18pm 10-19 [HPF]Above high normal0-4F[facility] [id number] [address] [facility] 34753Knliu WBCSeptember 2024 9:04pmSeptember 2024 9:18pm 20-49 [HPF]Above high normal0-4F[facility] [id number] [address] [facility] 09264Blpyv WBC ClumpsSeptember 2024 9:04pmSeptember 2024 9:18pmFew [LPF]Above high normalNone [facility] [id number] [address] [facility] 38289Tsyem Squamous Epithelial CellsSeptember 2024 9:04pm March 06, 2025 9:37bh04-154 [HPF]Above high normal0-2F[facility] [id number] [address] [facility] 80950Ygxad Calcium Oxalate CrystalsSeptember 2024 9:04pm March 06, 2025 9:18pm1+ [HPF][facility] [id number] [address] [facility] 11828Dhnys BacteriaSeptember 2024 9:04pmSeptember 2024 9:18pm2+ [HPF]Above high normalNone [facility] [id number] [address] [facility] 06383Qvqbh Hyaline CastsSeptember 2024 9:04pmSeptember 2024 9:79nr6-1 [LPF]0-8[facility] [id number] [address] [facility] 82632Zkfov MucusSeptember 2024 9:04pmSeptember 2024 9:18pmRare [LPF][facility] [id number] [address] [facility] 90737Fflvj Yeast (Budding)March 06, 2025 9:04pmSeptember 2024 9:18pm2+ [HPF]Above high normalNone [facility] [id number] [address] [facility] 94058Fiupcid LevelSeptember 2024 8:54pmSeptember 2024 9:31pm84 mg/sF60-008ZEG recommended reference rangeRandom Glucose Reference Range is dependent on time and content of last meal. Glucose of more than 200 mg/dL in a nonstressed, ambulatory subject supports the diagnosisof Diabetes Mellitus.[facility] [id number] [address] [facility] 75684Llgbz Urea NitrogenSeptember 2024 8:54pmSeptember 2024 9:31pm8 mg/dL7-25[facility] [id number] [address] [facility] 85679FcozkbvhbcSnzturgdk 2024 8:54pmSeptember 2024 9:31pm0.54 mg/dLBelow low normal0.60-1.20[facility] [id number] [address] [facility] 30845Svkbkvlbd GFR (CKD-EPI)March 06, 2025 8:54pmSeptember 2024 9:31pm> 60.0 mL/MinCorey Hospital [facility] [id number] [address] [facility] 34941Fxhzsa LevelSeptember 2024 8:54pmSeptember 2024 9:13jr431 mmol/E706-929HduhhusweCorey Hospital Ctr [id number] [address] [place] 0266970Potassium LevelSeptember 2024 8:54pmSeptember 2024 9:31pm4.1 mmol/L3.5-5.1F[facility] [id number] [address] [facility] 24750Rxumydwy LevelSeptember 2024 8:54pmSeptember 2024 9:05gy121 mmol/N42-347OqozlcaxhCorey Hospital Ctr [id number] [address] [facility] 78753Tpfuvs Dioxide LevelSeptember 2024 8:54pmSeptember 2024 9:31pm28.0 mmol/L21.0-31.0[facility] [id number] [address] [facility] 23446Wuyjv GapSeptember 2024 8:54pmSeptember 2024 9:31pm 8.1 mEq/L6.0-15.0[facility] [id number] [address] [place] 0266970Calcium LevelSeptember 2024 8:54pmSeptember 2024 9:31pm9.3 mg/dL8.6-10.3F[facility] [id number] [address] [facility] 72029Oxxzm ProteinSeptember 2024 8:54pmSeptember 2024 9:31pm7.3 g/dL6.4-8.9[facility] [id number] [address] [facility] 27153EobktsmPntcbcoku 2024 8:54pmSeptember 2024 9:31pm 3.9 g/dL3.5-5.7F[facility] [id number] [address] [facility] 23489KqhvrcbkYwxobvryw 2024 8:54pmSeptember 2024 9:31pm 3.4 g/dLCorey Hospital Ctr [id number] [address] [facility] 50286Vtxqoxp/Globulin RatioSeptember 2024 8:54pmSeptember 2024 9:31pm1.1F[facility] [id number] [address] [facility] 16449Pyqbk BilirubinSeptember 2024 8:54pmSeptember 2024 9:31pm0.3 mg/dL0.3-1.0[facility] [id number] [address] [facility] 71614Fwfgwlght Amino Transf (AST/SGOT)March 06, 2025 8:54pm March 06, 2025 9:31pm48 U/LAbove high midljw24-64OkvzpdjwsCorey Hospital Ctr [id number] [address] [facility] 84774Khxhwmt Aminotransferase (ALT/SGPT)March 06, 2025 8:54pm March 06, 2025 9:31pm74 U/LAbove high normal7-52[facility] [id number] [address] [facility] 97755Dgrvzjwi PhosphataseSeptember 2024 8:54pmSeptember 2024 9:31pm58 U/L76-504IoyilokbsCorey Hospital Ctr [id number] [address] [facility] 85303Pbpwa Creatine KinaseSeptember 2024 8:54pmSeptember 2024 9:31pm35 U/V24-564VlzeghbxqCorey Hospital [facility]tr [id number] [address] [facility] 75498Uyekzeda I High SensitivitySeptember 2024 8:54pmSept2024 9:39pm5 ng/L0-15The Troponin units of report have been changed to meet the Chest Pain Accreditation requirement, element EC5.M1l2. Troponin units are changed from pg/ml to ng/L. Also, the decimal is removed and results are in whole numbers.[facility] [id number] [address] [facility] 36086Ykyzssxy Creatinine Clearance (ChemSeptember 2024 8:54pm March 06, 2025 9:27cs832.33[facility] [id number] [address] [facility] 77140Jyvgycj GlucoseSeptember 2024 10:41pmSept2024 10:42pm62 mg/dLRandom Glucose Reference Range is dependent on time and content of last meal. Glucose of more than 200 mg/dL in a nonstressed, ambulatory subject supports the diagnosis of Diabetes Mellitus.Point of Care testingBedside Glucose CommentSeptember 2024 7:07pmSept2024 7:14wuFii0: cleaned meterPoint of Care testing Microbiology Results Procedure Source Result Collection Date/Time Result Date/Time Result Comment Performing Site Urine Culture Urine, Clean-Voided Midstream Strep agalactiae - (group b) March 06, 2025 10:04pm March 09, 2025 7:19am [facility] [id number] [address] [facility] 94962Ivtih CultureClean Void Midstream2 DaysDe2024 12:44pmDecember 2024 11:21am[facility] [id number] [address] [facility] [address] Vital Signs Vital Reading Result Reference Range Collection Date/Time Height 59 [in_i] March 06, 2025 7:91sjZnxehc47.13 kgSept2024 7:08pmBody Huuryoviinw13.1 [degF]97.6-99.0Sept2024 7:08pmHeart Rate87 /min 60-100Sept2024 9:47pmRespiratory rate18 /fff40-16Upaiygnxw 27th, 2025 9:45pmOxygen saturation by Pulse tvunmttt49 %95-100Sept2024 9:47pmBP Poqtrlzf647 mm[Hg]100-140Sept2024 9:45pmBP Jppixaafn14 mm[Hg]60-100September 2024 9:65xuQvlrmk68 [in_i]March 09, 2025 7:43xpLehojm35.40 kgSept2024 7:13amHeart Rate95 /vku39-524VrtrfjwthMarch 09, 2025 7:13amRespiratory rate18 /nut01-30Wfuhinizj 30th, 2025 7:13amOxygen saturation by Pulse %95-100March 09, 2025 7:13amBP Feijymmb374 mm[Hg]100-140Sept2024 7:13amBP Qjuzxfuia06 mm[Hg]60-100Sept2024 7:13amBMI (Body Mass Index)29.9 kg/s2Tfbptmihj2024 7:13am Advance Directives Advance Directive Response Recorded Date/ Time Advance Directives No August 28 025 8:42am Insurance Providers Guarantor Elizabeth Parker Address [address] [place] [id number] Info.Home Phone: Coverage Status Update:2025 Payer Group Member ID Coverage Type Subscriber Relationship to Subscriber Effective Date Expiration Date [facility] Employees [id number] Druckenmiller , P M Id: [id number] [address] [place] [id number] Home Phone: Email: [email or web address] BERUM[employer] Id: [id number] Seamon , P Id: [id number] [address] [facility] [address] Home Phone: Email: none Encounters Encounter Location(s) Arrival/Admit Date Discharge/Departure Date Discharge/Departure Disposition Provider(s) Departed Emergency -Emergency Room March 06, 2025 7:50pm March 06, 2025 11:50pm Discharged to home care or self care (routine discharge) Departed [facility] March 09, 2025 8:49amDischarged to home care or self care (routine discharge)Carissa Queen , APRNDeparted Referred-[facility] May 28, 2025 12:44pmDecember 2024 12:45pmDischarged to home care or self care (routine discharge)Kolton Brewerparted Referred-[facility]Dece2024 10:45pmDece2024 10:46pmDischarged to home care or self care (routine discharge)Kolton Cao Recent Diagnosis Onset Date Admit Date Dietary counseling and surveillance Unknown March 09, 2025 8:08am Hyperlipidemia, unspecified Unknown Feb 8:08am Insulin pump in place Unknown March 09, 2025 8:08am 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 Unknown March 09, 2025 8:08am Unknown March 09, 2025 8:08am Type 1 diabetes mellitus with hyperglycemia Unkn own March 09, 2025 8:08am Vitamin D deficiency, unspecified Unknown March 09, 2025 8:08am Assessments Diagnosis Onset Date Resolution Status Admit Date Dietary counseling and surveillance acuteSept2024 8:08amHyperlipidemia, unspecifiedacuteSept2024 8:08amInsulin pump in placeacuteSept2024 8:08amLong term (current) use of insulinacuteSept2024 8:08amPregnancyacuteSeptember 30th, 2025 8:08amType 1 diabetes mellitus with hyperglycemiaacuteSeptember 2024 8:08amVitamin D deficiency, unspecifiedacuteSeptember 2024 8:08am Plan of Treatment Author [facility]issa Queen [facility]Authored[facility] 2024 3:47pm Now being managed [...] CGM or glucometer at this time. Uses [employer]'s glucometer or checks blood glucose at work. 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 New to [facility], new to diabetes program. Previously [...] and supplies d/t employee diabetes program at [facility] [place]. wear CGM at all times. Lipids UMIC [...] Ordered Date Scheduled Date Urine Culture May 30, 2025 10:45pm Future Visits Future appointment information is unavailable Future Procedures Procedure Name Ordered Date Scheduled Date Urine Culture May 31, 2025 12:59pm Dece mber 2024 10:45pm Future Medications Future medication information is unavailable Patient Instructions Instruction Admit Date Checking your blood sugar at home Low blood sugar in adults - ED ([place])March 06, 2025 7:50pm
--- OUTSIDE RECORDS SUMMARY | 2025-06-01 18:57 | XMS_ITS | Continuity of Care Document ---
Author Organization [facility] Address [address] [place] [address] Phone Care Team Providers Care Finishing Supervisor Name Role Phone Dru Rodriguez DO Primary Care Provider Greg White MD Emergency Provider [phone] Carissa Queen APRN Attending Provider Kolton Cao DO Attending Provider [phone] Care Teams Patient Care Team Team [...] Insulin pump in place March 09 8:08am care home (current) use of insulin Sept mb2024 8:08am March 09, 2025 8:08am Type 1 diabetes mellitus with hyperglyce eknna March 09, 2025 8:08am Vitamin D deficiency, [...] Diagnosis/Recorded Date Onset Date Status C omments care home (current) use of insulin December 16, 2024 [...] D deficiency Vitamin D deficiency, unspecifiedFollow with ktgi-sgr-trtwrot dosing 2000 units once dailyBlood-Glucose Sensor (Dexcom G6 Sensor) deviceActive0.Leije97UurOctober 29, 2024 11:00pmType 1 diabetes mellitus with hyperglycemia Type 1 diabetes mellitus with hyperglycemiaAs directed Change every 10 days Blood-Glucose Transmitter (Dexcom G6 Transmitter) deviceActive0.Cbkpd67Fmg2024 11:00pmType 1 diabetes mellitus with hyperglycemia Type 1 diabetes mellitus with hyperglycemiaAs directed Change every 90 days Insulin Lispro 100 unit/mL psbgkkaeSmbijgdmivbo1JZDHEPAqi as Jwqranrk391Qlsc 2024 7:44amSeptember 2024 8:06amType 1 diabetes mellitus with hyperglycemia Type 1 diabetes mellitus with hyperglycemiasubcutaneously use as directed; INJECT INSULIN SUBCUTANEOUSLY PER PUMP (MAX DAILY DOSE 80 UNITS)Insulin Pump Cart,Auto,Bt,G6/7 (Omnipod 5 G6-G7 Pods (Gen 5)) cartridgeDiscontinued0.Pvhpd916 January 21, 2025 3:31pmSeptember 2024 8:06amType 1 diabetes mellitus with hyperglycemia Type 1 diabetes mellitus with hyperglycemiaUse to deliver insulin change every 3 daysBlood-Glucose Sensor (Dexcom G7 Sensor) deviceActive0.Mdfbf95Elvfzl 2024 3:31pmType 1 diabetes mellitus with hyperglycemia Type 1 diabetes mellitus with hyperglycemiaUse with Omnipod 5 to manage BG change every 10 daysBlood-Glucose Sensor (Dexcom G7 Sensor) deviceActive0.Route9 Nov2024 8:50amType 1 diabetes mellitus with hyperglycemia Type 1 diabetes mellitus with hyperglycemiaAs directed change every 10 daysBlood Sugar Diagnostic (True Metrix Glucose Test Strip) stripActive0.Ujrzo4176Zdstoedq 2024 8:49amType 1 diabetes mellitus with hyperglycemia Type 1 diabetes mellitus with hyperglycemia Dx E10.9 defer to insurance preferredAs directed test blood sugar four times dailyInsulin Pump Cart,Auto,Bt,G6/7 (Omnipod 5 G6-G7 Pods (Gen 5)) cartridge Active0.Asirg652Ixzpgspk 2024 8:40amType 1 diabetes mellitus with hyperglycemia Type 1 diabetes mellitus with hyperglycemiaUse to deliver insulin change every 1.5 daysInsulin Lispro 100 unit/mL sxsxlqbeVqsfpb3RDOUZULtm as Hevxzsgz8224 May 25, 2025 8:41amType 1 diabetes mellitus with hyperglycemia Type 1 diabetes mellitus with hyperglycemiasubcutaneously use as directed; INJECT INSULIN SUBCUTANEOUSLY PER PUMP (MAX DAILY DOSE 125 UNITS)Unknown Promethazine 25 mg AkdomsTvofmrbolrem65PSZHQ3V as needed for Vwextf162Gihobcw 2021 12:00amApril 2021 8:03pmInsulin Lispro 100 unit/mL solution DiscontinuedApril 2021 11:00pmApril 2024 1:33pmadjusted via pump Multivitamin GazsjeePfqbejfnkhxl1KEKUMSbtwgJduct 2021 11:00pmSeptember 2024 7:19amZinc Tablet,TwrpapvaWyyteghcqbgh3JFTGBOqvjfSsvaa 2021 11:00pmApril 2024 1:33pmMecobalamin (Vitamin B12) (B12 Active) 1,000 mcg Tablet,ChewableDiscontinuedMCGPODailyApril 2021 11:00pmMarch 2022 10:34amLevofloxacin 750 mg gvcdhpWqzuxtacpmxq467YHUETcdpb96Zcvgj 2021 11:00pmMarch 2022 10:35amInsulin Lispro 100 unit/mL solutionDiscontinued1 sliding scale doseCNTSUBQINFUse as DirectedApr2024 1:32pmMay 2024 9:59amadjusted via pumpGabapentin 100 mg ompbladXtoxjzsbfcfa617XRMUYmhmg at 0730, 1530, 2330March 2022 12:00amJune 2022 10:37amFerrous Sulfate (Ferosul) 325 mg (65 mg iron) rgxjzzCcuauxbbjuhh806UXYMCiqoiIdfvn 2022 12:00amApril 2024 1:31pmTramadol 50 mg oxbvsnMbcwpedmckfw41ISQNR4Q as needed for cpfo6609Ariw 2022 11:00pmJune 2022 10:38amCholecystitis Cholecystitis, unspecifiedTramadol 50 mg mahjtjJhnmkmdmrqkc87BOTMU7Q as needed for dopg6255Dplu 2022 11:00pmApril 2024 1:33pmCholecystitis Cholecystitis, unspecifiedBlood-Glucose Meter (True Metrix Air Glucose Meter) miscDiscontinued0.RouteSeptember 15, 2024 11:00pmApril 2024 2:03pmAs directed Blood Sugar Diagnostic (True Metrix Glucose Test Strip) stripDiscontinued0.Route September 15, 2024 11:00pmApril 2024 2:03pmAs directedLancets miscDiscontinued 0.RouteSeptember 15, 2024 11:00pmApril 2024 2:03pmAs directedBlood Sugar Diagnostic (True Metrix Glucose Test Strip) stripDiscontinued0.Evkrw8858Ikbop 2024 1:58pmMay 2024 9:59amDx E10.9 defer to insurance preferredAs directed test blood sugar four times dailyBlood-Glucose Meter (True Metrix Air Glucose Meter) miscActive0.Xolun72Ocpwd 2024 2:00pmDx E10.9 defer to insurance preferredAs directed test blood sugar four times dailyLancets misc Active0.Noqsu3688Hjwbx 2024 2:00pmDx E10.9 defer to insurance preferredAs directed test blood sugar four times dailyBlood Sugar Diagnostic (True Metrix Glucose Test Strip) stripDiscontinued0.Dwots2759AdeOctober 14, 2024 9:53amDecember 2024 8:50amType 1 diabetes mellitus with hyperglycemia Type 1 diabetes mellitus with hyperglycemia Dx E10.9 defer to insurance preferredAs directed test blood sugar four times dailyInsulin Lispro 100 unit/mL ophnjusnLxtbhdjkpeat0CQQUXTOTPDTww as Directed October 14, 2024 9:56amSeptember 2024 7:18amType 1 diabetes mellitus with hyperglycemia Type 1 diabetes mellitus with hyperglycemiavia continuous subcutaneous infusion use as directed; adjusted via pumpInsulin Lispro 100 unit/mL solution Ttqmkrswbcqc7BWVQGSTzv as Wdjwljel457Wqs 6th, 2025 11:00pmJune 2024 7:44am Type 1 diabetes mellitus with hyperglycemia Type 1 diabetes mellitus with hyperglycemiasubcutaneously use as directed; INJECT INSULIN SUBCUTANEOUSLY PER PUMP (MAX DAILY DOSE 80 UNITS)Blood-Glucose Sensor (Dexcom G7 Sensor) deviceDiscontinued0.Cxcoa32WzuOctober 27, 2024 11:00pm January 21, 2025 3:31pmType 1 diabetes mellitus with hyperglycemia Type 1 diabetes mellitus with hyperglycemiaUse with Omnipod 5 to manage BG change every 10 daysInsulin Pump Cart,Auto,Bt,G6/7 (Omnipod 5 G6-G7 Pods (Gen 5)) cartridgeDiscontinued0.Mbftg719Fdv2024 11:00pmAugust 2024 3:31pmType 1 diabetes mellitus with hyperglycemia Type 1 diabetes mellitus with hyperglycemiaUse to deliver insulin change every 3 daysPrenatal 04-Bwpr-Qiilqv 9-Dha 31 mg iron- 1 mg-200 mg fqfqbifXefsgl8VSZSE DailyJuly 2024 11:00pmUnknownPsyllium Husk (Fiber (Psyllium Husk)) 0.4 gram capsuleActive0.4GMPODailyJuly 2024 11:00pmUnknownBlood-Glucose Sensor (Dexcom G7 Sensor) deviceDiscontinued0.RouteSeptember 2024 11:00pmNovember 2024 8:50amAs directedInsulin Lispro 100 unit/mL solutionDiscontinued0 SUBCUTUse as Nxqhqlps714Tdqgujjiv 30th, 2025 8:03amSeptember 2024 8:07am Type 1 diabetes mellitus with hyperglycemia Type 1 diabetes mellitus with hyperglycemiasubcutaneously use as directed; INJECT INSULIN SUBCUTANEOUSLY PER PUMP (MAX DAILY DOSE 100 UNITS)Insulin Pump Cart,Auto,Bt,G6/7 (Omnipod 5 G6-G7 Pods (Gen 5)) cartridgeDiscontinued0.Lpvyu050 March 09, 2025 8:06amDecember 2024 8:42amType 1 diabetes mellitus with hyperglycemia Type 1 diabetes mellitus with hyperglycemiaUse to deliver insulin change every 3 daysInsulin Lispro 100 unit/mL nnlgaaqeTuzmagjuvkqe5VCZIRXWqr as Eoealdzv704 March 09, 2025 8:06amDecember 2024 8:42amType 1 [...] White Blood CountSeptember 2024 8:54pmSeptember 2024 9:12pm11.4 10*3/uL3.8-11.6FOhioHealth [facility] [id number] [address] [facility] 77197Xprfwvcduam WBC CountSeptember 2024 8:54pmSeptember 2024 9:12pm11.4 10*3/uL3.8-11.6FOhioHealth Shelby Hospital [id number] [address] [facility] 24945Ytd Blood CountSeptember 2024 8:54pmSeptember 2024 9:12pm4.36 10*6/uL3.60-5.00[facility] [id number] [address] [facility] 32133GwfxjrrzrtSgkzdlpfn 2024 8:54pmSeptember 2024 9:12pm13.1 g/dL11.8-15.4FSt. [facility] [id number] [address] [facility] 41305KsyzqhznglDqroseejg 2024 8:54pmSeptember 2024 9:12pm38.5 %34.0-46.4FSt. [facility] [id number] [address] [facility] 61214Djzq Corpuscular VolumeSeptember 2024 8:54pmSeptember 2024 9:12pm88.3 hL11-503MievswrdkOhiohealth [facility]in [facility] [id number] [address] [facility] 50670Cgsx Corpuscular HemoglobinSeptember 2024 8:54pmSeptember 2024 9:12pm30.1 pg24.7-34.3FSt. [facility] [id number] [address] [place] [address] 88045Igba Corpuscular Hemoglobin ConcentSeptember 2024 8:54pm March 06, 2025 9:12pm34.0 g/dL32.0-35.0[facility] [id number] [address] [facility] 79691Hro Cell Distribution WidthSeptember 2024 8:54pmSeptember 2024 9:12pm13.5 %11.9-15.3FSt. [facility] [id number] [address] [facility] 06238Rakmmjop CountSeptember 2024 8:54pmSeptember 2024 9:99nm115 10*3/sP328-669FslxaoggxOhiohealth Hardin [facility] [id number] [address] [place] [address] 65691Zbmt Platelet VolumeSeptember 2024 8:54pmSeptember 2024 9:12pm8.6 fL6.3-10.7FSt. [facility] [id number] [address] [facility] 98520Ugjtafxp Distribution WidthSept2024 8:54pmSept2024 9:12pm16.87 %0.00-20.00[facility] [id number] [address] [facility] 46918Bwlogeispyl (%) (Auto)March 06, 2025 8:54pmSept2024 9:12pm80.3 %.[facility] [id number] [address] [facility] 90091Lkapkzslamj (%) (Auto)March 06, 2025 8:54pmSept2024 9:12pm13.2 %.[facility] [id number] [address] [facility] 59413Twskmjehm (%) (Auto)March 06, 2025 8:54pmSept2024 9:12pm5.4 %.[facility] [id number] [address] [facility] 98405Gxywdfvihbf (%) (Auto)March 06, 2025 8:54pmSept2024 9:12pm0.5 %.[facility] [id number] [address] [facility] 13244Xmyplddml (%) (Auto)March 06, 2025 8:54pmSept2024 9:12pm0.6 %.[facility] [id number] [address] [facility] 76425Qtlqgbvrz RBC Relative Count (auto)March 06, 2025 8:54pm March 06, 2025 9:12pm0.1 /100{WBC}0-0.5FSt. [facility] [id number] [address] [facility] 78551Ishnkwusuum # (Auto)March 06, 2025 8:54pmSept2024 9:12pm9.2 10*3/uLAbove high normal1.8-7.7FSt. [facility] [id number] [address] [facility] 29211Ujerytrvyec # (Auto)March 06, 2025 8:54pmSeptember 2024 9:12pm1.5 10*3/uL1.00-4.8[facility] [id number] [address] [facility] 84505Zclfveifh # (Auto)March 06, 2025 8:54pmSeptember 2024 9:12pm0.6 10*3/uL0.0-0.8[facility] [id number] [address] [facility] 01194Dxwevttwqga # (Auto)March 06, 2025 8:54pmSeptember 2024 9:12pm0.1 10*3/uL0.0-0.45[facility] [id number] [address] [place] [id number] # (Auto)March 06, 2025 8:54pmSeptember 2024 9:12pm0.1 10*3/uL0.0-0.2FSt. [facility] [id number] [address] [facility] 10549Vtipn ColorSeptember 2024 9:04pmSeptember 2024 9:12pmLight-yellowYellowOhiohealth Hardin Memorial Hospital [facility] [id number] [address] [facility] 23489Fcozx AppearanceSeptember 2024 9:04pmSeptember 2024 9:12pmCloudyAbnormal (applies to non-numeric results)ClearOhiohealth Hardin Memorial Hospital [facility]tr [id number] [address] [facility] 65285Bhhiu Specific GravitySeptember 2024 9:04pmSeptember 2024 9:12pm1.0071.001-1.030[facility] [id number] [address] [facility] 68696Eiwyn pHSeptember 2024 9:04pmSeptember 2024 9:12pm 7.05.0-9.0[facility] [id number] [address] [facility] 79471Scqsd Leukocyte EsteraseSeptember 2024 9:04pmSeptember 2024 9:12pm4+Above high normalNegativeOhiohealth [facility]in [facility] [id number] [address] [facility] 54776Zziov NitriteSeptember 2024 9:04pmSeptember 2024 9:12pmNegativeNegativeOhiohealth [facility]in [facility] [id number] [address] [facility] 62123Jkyjg ProteinSeptember 2024 9:04pmSeptember 2024 9:12pmNegative mg/dLNegativeOhiohealth Hardin [facility] [id number] [address] [facility] 84644Tubta Glucose (UA)March 06, 2025 9:04pmSeptember 2024 9:12pmNormal mg/dLNormalOhiohealth Hardin [facility] [id number] [address] [facility] 16852Kdshl KetonesSeptember 2024 9:04pmSeptember 2024 9:12pmNegativeNegativeOhiohealth [facility]in [facility] [id number] [address] [facility] 41679Cptwd UrobilinogenSeptember 2024 9:04pmSeptember 2024 9:12pmNormal mg/dLNormalOhiohealth [facility]in [facility] [id number] [address] [facility] 10508Avaki BilirubinSeptember 2024 9:04pmSeptember 2024 9:12pmNegativeNegativeOhiohealth [facility]in [facility] [id number] [address] [facility] 72822Bcvkk Occult BloodSeptember 2024 9:04pmSeptember 2024 9:12pmNegativeNegativeOhiohealth Hardin [facility] [id number] [address] [facility] 76818Zptlv RBCSeptember 2024 9:04pmSeptember 2024 9:18pm 10-19 [HPF]Above high normal0-4FSt. [facility] [id number] [address] [facility] 98690Bodro WBCSeptember 2024 9:04pmSeptember 2024 9:18pm 20-49 [HPF]Above high normal0-4FSt. [facility] Hospital [facility] [id number] [address] [facility] 35374Ufrro WBC ClumpsSeptember 2024 9:04pmSeptember 2024 9:18pmFew [LPF]Above high normalNone [facility] [id number] [address] [facility] 43125Ikose Squamous Epithelial CellsSeptember 2024 9:04pm March 06, 2025 9:14as78-127 [HPF]Above high normal0-2FSt. [facility] Hospital [facility] [id number] [address] [facility] 88104Tulna Calcium Oxalate CrystalsSeptember 2024 9:04pm March 06, 2025 9:18pm1+ [HPF][facility] [id number] [address] [facility] 46098Ydect BacteriaSeptember 2024 9:04pmSeptember 2024 9:18pm2+ [HPF]Above high normalNone [facility] [id number] [address] [facility] 13023Hgdje Hyaline CastsSeptember 2024 9:04pmSeptember 2024 9:45gh6-9 [LPF]0-8[facility] [id number] [address] [facility] 26836Huybh MucusSeptember 2024 9:04pmSeptember 2024 9:18pmRare [LPF][facility] [id number] [address] [facility] 38930Gixtu Yeast (Budding)March 06, 2025 9:04pmSeptember 2024 9:18pm2+ [HPF]Above high normalNone [facility] [id number] [address] [facility] 84717Ahvreqf LevelSeptember 2024 8:54pmSeptember 2024 9:31pm84 mg/pC78-581KVD recommended reference rangeRandom Glucose Reference Range is dependent on time and content of last meal. Glucose of more than 200 mg/dL in a nonstressed, ambulatory subject supports the diagnosisof Diabetes Mellitus.[facility] [id number] [address] [facility] 79445Kqdqe Urea NitrogenSeptember 2024 8:54pmSeptember 2024 9:31pm8 mg/dL7-25[facility] [id number] [address] [facility] 51983RkdxbytcyfEpnamzsgz 2024 8:54pmSeptember 2024 9:31pm0.54 mg/dLBelow low normal0.60-1.20[facility] [id number] [address] [facility] 36868Lqciquxfb GFR (CKD-EPI)March 06, 2025 8:54pmSeptember 2024 9:31pm> 60.0 mL/MinOhiohealth Hardin Memorial Hospital [facility]tr [id number] [address] [place] 0604370Sodium LevelSeptember 2024 8:54pmSeptember 2024 9:35ss596 mmol/O094-689DfcvomcuyOhiohealth Hardin Memorial Hospital [facility] [id number] [address] [place] 0604370Potassium LevelSeptember 2024 8:54pmSeptember 2024 9:31pm4.1 mmol/L3.5-5.1FSt. [facility] Hospital [facility] [id number] [address] [facility] 46481Gulflyjl LevelSeptember 2024 8:54pmSeptember 2024 9:14xi529 mmol/V50-503QdwcsnswmOhiohealth Hardin [facility] [id number] [address] [facility] 41109Ocrqvd Dioxide LevelSeptember 2024 8:54pmSeptember 2024 9:31pm28.0 mmol/L21.0-31.0[facility] [id number] [address] [facility] 01725Edjau GapSeptember 2024 8:54pmSeptember 2024 9:31pm 8.1 mEq/L6.0-15.0[facility] [id number] [address] [place] [address]604370Calcium LevelSeptember 2024 8:54pmSeptember 2024 9:31pm9.3 mg/dL8.6-10.3FSt. [facility] Hospital [facility] [id number] [address] [facility] 76885Mhxdt ProteinSeptember 2024 8:54pmSeptember 2024 9:31pm7.3 g/dL6.4-8.9[facility] [id number] [address] [facility] 98369WbvepecPnoryhfxb 2024 8:54pmSeptember 2024 9:31pm 3.9 g/dL3.5-5.7FSt. [facility] Hospital [facility] [id number] [address] [facility] 02447WurdciauWwtegiywl 2024 8:54pmSeptember 2024 9:31pm 3.4 g/dLOhiohealth Hardin [facility] [id number] [address] [facility] 36370Ujnpqma/Globulin RatioSeptember 2024 8:54pmSeptember 2024 9:31pm1.1FSt. [facility] Hospital [facility] [id number] [address] [facility] 36305Jbryg BilirubinSeptember 2024 8:54pmSeptember 2024 9:31pm0.3 mg/dL0.3-1.0[facility] [id number] [address] [facility] 17331Ixamnwzmd Amino Transf (AST/SGOT)March 06, 2025 8:54pm March 06, 2025 9:31pm48 U/LAbove high dqkoss23-03RptfbbakvOhiohealth Hardin Memorial Hospital [facility] [id number] [address] [facility] 14791Jhjnejn Aminotransferase (ALT/SGPT)March 06, 2025 8:54pm March 06, 2025 9:31pm74 U/LAbove high normal7-52[facility] [id number] [address] [facility] 10650Thaylyjn PhosphataseSeptember 2024 8:54pmSeptember 2024 9:31pm58 U/H83-666CuxkkbbvuOhiohealth Hardin Memorial [facility] [id number] [address] [facility] 08878Mnkxa Creatine KinaseSeptember 2024 8:54pmSeptember 2024 9:31pm35 U/L88-448QihqzikqhOhiohealth Hardin Memorial Hospital [facility] [id number] [address] [facility] 73664Oyzuzdkx I High SensitivitySeptember 2024 8:54pmSeptember 2024 9:39pm5 ng/L0-15The Troponin units of report have been changed to meet the Chest Pain Accreditation requirement, element EC5.M1l2. Troponin units are changed from pg/ml to ng/L. Also, the decimal is removed and results are in whole numbers.[facility] [id number] [address] [facility] 69750Ewonynvo Creatinine Clearance (ChemSept2024 8:54pm March 06, 2025 9:17pq355.33[facility] [id number] [address] [facility] 31140Mzkgjxh GlucoseSeptember 2024 10:41pmSept2024 10:42pm62 mg/dLRandom Glucose Reference Range is dependent on time and content of last meal. Glucose of more than 200 mg/dL in a nonstressed, ambulatory subject supports the diagnosis of Diabetes Mellitus.Point of Care testingBedside Glucose CommentSept2024 7:07pmSept2024 7:94caMqz6: cleaned meterPoint of Care testing Microbiology Results Procedure Source Result Collection Date/Time Result Date/Time Result Comment Performing Site Urine Culture Urine, Clean-Voided Midstream Strep agalactiae - (group b) March 06, 2025 10:04pm March 09, 2025 7:19am [facility] [id number] [address] [facility] 77023Kxvxs CultureClean Void Midstream2 DaysDe2024 12:44pmDecember 2024 11:21amOhiohealth [facility]in [facility] [id number] [address] [facility] [address] Vital Signs Vital Reading Result Reference Range Collection Date/Time Height 59 [in_i] March 06, 2025 7:61btZnbqyz42.13 kgSept2024 7:08pmBody Sjwbbkvdohz52.1 [degF]97.6-99.0September 2024 7:08pmHeart Rate87 /min 60-100September 2024 9:47pmRespiratory rate18 /jfe89-80Fbqsuwgqr 2024 9:45pmOxygen saturation by Pulse idgnhpmh73 %95-100September 2024 9:47pmBP Nndciqag634 mm[Hg]100-140September 2024 9:45pmBP Mdbsrqzrl90 mm[Hg]60-100September 2024 9:28giDjtwkv57 [in_i]March 09, 2025 7:03gyZtsmvt74.40 kgSept2024 7:13amHeart Rate95 /xnm67-219Fkmunmhyc 30th, 2025 7:13amRespiratory rate18 /dvb78-06Gclfohshb 30th, 2025 7:13amOxygen saturation by Pulse gjoncehl27 %95-100pt2024 7:13amBP Wuxeavvv205 mm[Hg]100-140September 2024 7:13amBP Rwzgwyrry66 mm[Hg]60-100September 2024 7:13amBMI (Body Mass Index)29.9 kg/a4Cwiyyqwie2024 7:13am Advance Directives Advance Directive Response Recorded Date/ Time Advance Directives No August 28 025 8:42am Insurance Providers Guarantor Elizabeth Parker Address [address] [place] [phone] Info.Home Phone: Coverage Status Update:2025 Payer Group Member ID Coverage Type Subscriber Relationship to Subscriber Effective Date Expiration Date [facility] [id number] Druckenmiller , P M Id: [id number] [address] [place] [phone] Home Phone: Email: [email or web address] BERUMEN Id: [id number] Seamon , P Id: [id number] [address] [facility] [address] Home Phone: Email: none Encounters Encounter Location(s) Arrival/Admit Date Discharge/Departure Date Discharge/Departure Disposition Provider(s) Departed Emergency -Emergency Room March 06, 2025 7:50pm March 06, 2025 11:50pm Discharged to home care or self care (routine discharge) Departed Physician/Provider Office Visit-[facility]2024 8:08am March 09, 2025 8:49amDischarged to home care or self care (routine discharge)Carissa Queen , APRNDeparted Referred-[facility] May 28, 2025 12:44pmDecember 2024 12:45pmDischarged to home care or self care (routine discharge)Kolton Brewerparted Referred-[facility] 10:45pmDehen[facility]2024 10:46pmDischarged to home care or self care (routine discharge)Kolton Cao Recent Diagnosis Onset Date Admit Date Dietary counseling and surveillance Unknown March 09, 2025 8:08am Hyperlipidemia, unspecified Unknown Feb 8:08am Insulin pump in place Unknown March 09, 2025 8:08am 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 Uses [employer] glucometer or checks blood glucose at work. [...] 1 unit for every 12 carbohydrates. Target kjcam205 mg/dL threshold correction 125 mg/dL. 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 [facility] to [facility], new to diabetes program. Previously [...] and supplies d/t employee diabetes program at [facility]. wear CGM at all times. Lipids UMIC [...] Low blood sugar in adults - [place] ([place])March 06, 2025 7:50pm
--- OUTSIDE RECORDS SUMMARY | 2025-06-01 18:58 | XMS_ITS | Encounter Summary ---
Author Organization [facility] Address [address] [place] [address] Care Team Providers Care Sales And Service Officer Name Role Phone Dru Rodriguez DO Primary Care Provider [phone]- [phone] Dru Rodriguez DO Unavailable [phone] Encounter Details DateTypeDepartmentCare Team (Latest Contact Info)Xfmjeevrged42/19/2025Telephone [facility] [place] [facility] [address] [place] [phone] Kolton Cao DO [address] [place] [phone] Social History Tobacco UseTypesPacks/DayYears UsedDateSmoking Tobacco: NeverSmokeless [...] relatives?Twice a week03/11/2023How often do you attend jehovah's witness or christianity services?1 to 4 times per year03/11/2023o you belong to any clubs or organizations such as jehovah's witness groups, unions, fraternal or athletic laura ups, or school groups?No03/11/2023How often do you attend meetings of the clubs or organizations you belong to?Never03/11/2023re you , , , , never , or living with a partner?Ushvnzp1103/11/2023 AUDIT-CAnswerDate RecordedQ1: How often do you have a drink containing alcohol? Monthly or less03/11/2023Q2: How many drinks containing alcohol do you have on a typical day when you are drinking?3 or Q3: How often do you have six or more drinks on one occasion?Less than jtpnsjd3203/11/2023Overall Financial Resource Strain (CARDIA)AnswerDate RecordedHow hard is it for you to pay for the very basics like food, housing, medical care, and heating?Somewhat hard 03/11/2023HQ-2AnswerDate RecordedPatient Health Questionnaire-2 Score0 03/25/2025[facility] [place] of Occupational Health - Occupational Stress QuestionnaireAnswerDate [...] slept in ashelter (including now)?No03/11/2023Estimated Date of EljtnaweFhkpjdvaDkk91/27/2026ased on last menstrual period of 10/30/2024Sex and Gender InformationValueDate RecordedSex Assigned at MwhbeBqwhfr61/01/2023 1:10 PM EDTLegal IrhWiqaxv63/15/2023 6:51 PM EDTGender ImjlppftMyafqt66/01/2023 1:10 PM EDTSexual MzbzvusytgkSgywycht80/01/2023 1:10 PM EDTdocumented as of this encounter Miscellaneous Notes * Telephone Encounter - Aline Fernández LPN - 05/28/2025 9:23 AM EST The reason I am calling is because I am getting my Rhogam shot today over at the [facility] and have to get blood work done [...] it. You can call me back at [phone]. Thank you. Patient call was returned and advised we will send orders over for Urine Culture for her to have completed. PVU orders sent at this time. documented in this encounter Plan of Treatment DateTypeDepartmentCare Team (Latest Contact Info)Ekmitvsriwy84/07/2026 4:00 PM ESTRoutine [facility] PORTILLO [address] [place] [phone] Dixie Gan, SOX ANALYST [address] [place] [phone] 06/30/2025 3:50 PM ESTRoutine [facility] [address] [place] [phone] Kolton Cao, DO [address] [place] [place], [place] [phone] NameTypePriorityAssociated DiagnosesOrder ScheduleUrine cultureMicrobiology Routine Kidney pain Expected: 05/28/2025 (Approximate), Expires: 05/28/2026documented as of this encounter Goals GoalPatient Goal TypeAssociated ProblemsRecent ProgressPatient-Stated?Author Reminders Care PlanOB RemindersNoOpen Scheduling, Backgrounddocumented as of this encounter Visit Diagnoses Diagnosis Kidney pain Renal colic documented in this encounter Additional Health Concerns Active ProblemsNoted DateDiagnosed DateOB Wogowaxgt97/24/2025 documented as of this encounter Care Teams Team MemberRelationshipSpecialtyStart DateEnd Date Dru Rodriguez DO [address] [place] [address] PCP - GeneralFamily Medicine10/22/22 Dru Rodriguez DO [address] [facility] [place] [address] PCP - Medical [facility]03/10/2312documented as of this encounter
--- OUTSIDE RECORDS SUMMARY | 2025-06-01 18:58 | XMS_ITS | Encounter Summary ---
Author Organization [facility] tem Address [id number] [address] [place] [address] Care Team Providers Care Food And Beverage Assistant Name Role Phone JenniferDru April MUNGUIA Primary Care Provider [phone] Encounter Details DateTypeDepartmentCare Team (Latest Contact Info)Texwfvnjbii13/23/2025Telephone Maternal- Medicine at [facility] [address] [place] [phone] Odilia Dumas RN [address] [address] Social History Tobacco UseTypesPacks/DayYears UsedDateSmoking Tobacco: NeverSmokeless Tobacco: NeverAlcohol UseStandard Drinks/WeekCommentsYes0 (1 standard drink = 0.6 oz pure alcohol)[facility] UtilitiesAnswerDate RecordedIn the past 12 [...] care, and heating?Not hard at all02/17/2025PHQ-2AnswerDate RecordedTotal Vbnhs061[facility] [place] of Occupational Health - Occupational Stress [...] of a household?No02/17/2025hildcareAnswerDate RecordedDo problems getting child day care teacher make it difficult for you [...] and direction in my life.Agree02/17/2025Estimated Date of XsblobpzNxckwltzZop97/27/2026ased on last menstrual period of 10/30/2024Sex and Gender InformationValueDate RecordedSex Assigned at WyjlyZuziev22/22/2025 1:51 AM EDTLegal SexFemale 01/13/2015 11:58 AM EDTGender UbiybxtpJqtqzf28/22/2025 1:51 AM EDTSexual OrientationNot on filedocumented as of this encounter Miscellaneous Notes * Telephone Encounter - Odilia Dumas RN - 06/01/2025 2:38 PM ESTSummary: [facility] [employer] Dexcom Reports & Insulin Pump Setting Changes Called. No answer. Message left that Dr. Duval reviewed [employer]ook[employer] Dexcom Reports and made insulin pump changes. Basal Rates (Units/hour) 12 am 1.3 (same) 3 am 1.25 (same) 6 am 1.1 (same) 9 am 1.45 (same) 1 pm 1.4 (same) 8 pm 1.1 (same) 10 pm 1.1 (increased) Insulin:Carb Ratios (grams/Unit) 12 am 3.0 (changed) 3 am 2.5 (same) 6 am 2.5 (same) 9 am 2.5 (same) 4 pm 2.5 (changed) 8 pm 3.0 (same) 10 pm 3.0 (changed) All other pump settings remain the same. Dr. Duval noted glucose numbers were inconsistent at night and would like you to do the same as what you are doing on your good nights. Dr. Duval's questions are: What is that? Do you think Manual Mode would be better? What are you eating/Are you eating on the nights glucose goes to greater than 250? Requested return call or message to verify received t hese insulin pump changes. Requested to call office to schedule an appointment with an [facility] provider. [employer] message also sent. documented in this encounter Plan of Treatment DateTypeDepartmentCare Team (Latest Contact Info)Zcgwhkhvunb82/02/2026 3:30 PM ESTAppointment [facility] [address] [place] [address] documented as of this encounter Visit Diagnoses Diagnosis Uncontrolled type 1 diabetes mellitus with hyperglycemia, with long-term current use of insulin ([facility]) documented in this encounter Additional Health Concerns AssessmentNoted TimePHQ-9 Depression Total Score: 8:31 AM ESTA Body Mass Index follow-up plan has been documented for the snacsfv6806/12/2023 4:35 PM ESTdocumented as of this encounter Care Teams Team MemberRelationshipSpecialtyStart DateEnd Date Dru Rodriguez DO [address] [place] [phone] PCP - General01/01/17documented as of this encounter
--- OUTSIDE RECORDS SUMMARY | 2025-06-01 18:58 | XMS_ITS | Encounter Summary ---
Author Organization [facility] Address [address] [place] [address] Care Team Providers Care Distance Learning Administrator Name Role Phone Joaquín Rodriguez DO Primary Care Provider [phone] Joaquín Rodriguez DO Unavailable [phone] Encounter Details DateTypeDepartmentCare Team (Latest Contact Info)Mriahwrkpgq76/12/2025Clinisync Result Encounter [facility] External Department Unsolicited Bryant Cao DO [address] [place] [address] Social History Tobacco UseTypesPacks/DayYears UsedDateSmoking Tobacco: NeverSmokeless [...] relatives?Twice a week03/11/2023How often do you attend restoration or sikh services?1 to 4 times per year03/11/2023o you belong to any clubs or organizations such as restoration groups, unions, fraternal or athletic laura ups, or school groups?No03/11/2023How often do you attend meetings of the clubs or organizations you belong to?Never03/11/2023re you , , , , never , or living with a partner?Btyyqwj8403/11/2023 AUDIT-CAnswerDate RecordedQ1: How often do you have a drink containing alcohol? Monthly or less03/11/2023Q2: How many drinks containing alcohol do you have on a typical day when you are drinking?3 or Q3: How often do you have six or more drinks on one occasion?Less than omuzbsi2003/11/2023Overall Financial Resource Strain (CARDIA)AnswerDate RecordedHow hard is it for you to pay for the very basics like food, housing, medical care, and heating?Somewhat hard 03/11/2023HQ-2AnswerDate RecordedPatient Health Questionnaire-2 Score0 03/25/2025[facility] [place] of Occupational Health - Occupational Stress QuestionnaireAnswerDate [...] slept in ashelter (including now)?No03/11/2023Estimated Date of ImdjzdiyMzvkreacFzh34/27/2026ased on last menstrual period of 10/30/2024Sex and Gender InformationValueDate RecordedSex Assigned at XflnqHcdwdj56/01/2023 1:10 PM EDTLegal KspCnbdce51/15/2023 6:51 PM EDTGender GsbovuhwXtzwqm74/01/2023 1:10 PM EDTSexual EereeyjfqcpQkxrjydi23/01/2023 1:10 PM EDTdocumented as of this encounter Plan of Treatment DateTypeDepartmentCare Team (Latest Contact Info)Qunvwsceotm54/07/2026 4:00 PM ESTRoutine [facility] PORTILLO [address] [place] [address] Dixie Gan, MACHINE FARMWORKER [address] [place] [address] 06/30/2025 3:50 PM ESTRoutine NOMAislinn PORTILLO [address] [address] Bryant Cao DO [address] [place] [address] documented as of this encounter Goals GoalPatient Goal TypeAssociated ProblemsRecent ProgressPatient-Stated?Author Reminders Care PlanOB RemindersNoOpen Scheduling, Backgrounddocumented as of this encounter Procedures Procedure NamePriorityDate/TimeAssociated DiagnosisCommentsUS OB BPP W NON-MFOZVR0805/21/2025 8:39 PM EST documented in this encounter Results * US OB BPP W NON-STRESS (05/21/2025 8:39 PM EST)Anatomical Region LateralityModalityOtherSpecimen (Source)Anatomical Location / Laterality Collection Method / VolumeCollection TimeReceived Time05/21/2025 8:39 PM EST Narrative 05/21/2025 8:43 PM EST [facility] ?[address] ? [place] [address] ? Ultrasound Report ? Signed ? Patient: KAELYN SHAW ?MR#: [id number] ?? : 2000 ?Acct:[id number] ?? Age/Sex: 25 / F ?ADM Date: 05/21/25 ?? Loc: US ? Attending Dr: Bryant Cao D.O. ? Ordering Physician: Bryant Cao D.O. ?? Date of Service: 05/21/25 ?? Procedure(s): US OB BPP w non-stress ?? Accession Number(s): [id number] ? cc: Bryant Cao D.O.; JOAQUÍN RODRIGUEZ ? [facility] ? [facility] [address] ? [place] [address] ? Patient Name: ?? KAELYN SHAW ? MRN: [facility]:[id number] ? date: 2000 ?Sex: F ?? Assigned Patient Location: ?? Current Patient Location: ? Accession/Order Number: [id number] ?? Exam Date: 05/21/2025 ??19:56 ?Report Date: [...] Dictation Location: RADIO-PC-29 ? Electronically authenticated by: [id number] ??Y ?? Date: 05/21/2025 ??20:39 ? Dictated By: ?Kvaeh Romeo M.D. ? Signed By: ?05/21/252042 ? DD/ 38 ? TD/TT: ? Brand Attendant: Procedure Note Radiology, Radiologist, MD - 05/21/2025 [place] [address] Ultrasound Report Signed Patient: KAELYN SHAW MMR#: [id number] : 2000Acct:[id number] Age/Sex: 25 / FADM Date: 05/21/25 Loc: US Attending Dr: Bryant Coa D.O. Ordering Physician: Bryant Cao D.O. Date of Service: 05/21/25 Procedure(s): US OB BPP w non-stress Accession Number(s): [id number] cc: Bryant Cao D.O.; JOAQUÍN RODRIGUEZ The [place] [id number] Patient Name: KAELYN SHAW MRN: [id number] date: 2000 Sex: F Assigned Patient Location: US Current Patient Location: Accession/Order Number: [id number] Exam Date: 05/21/2025 19:56 Report Date: 05/21/2025 20:39 At the request of: BRYANT CAO DO Procedure: US OB BPP w non-stress Ultrasound biophysical profile INDICATION: Type 1 diabetes during COMPARISON: 05/14/2025 FINDINGS IMPRESSION: SINGLE LIVE INTRAUTERINE IN CEPHALICPOSITION. HEART RATE 138 BPM. AMNIOTIC FLUID INDEX 12.9 CM. BIOPHYSICALPROFILE SCORE 8/8 Impression dictated by: Kaveh Romeo M.D. 05/21/2025 8:39 PM Dictation Location: [place] [address] Electronically authenticated by: [id number] Y Date: 520:39 Dictated By: Kaveh Romeo M.D. Signed By:05/21/252042 DD/ 38 TD/TT: Brand Attendant: Authorizing ProviderResult TypeResult StatusCorey Kiley DOCLINISYNC IMAGINGFinal Result documented in this encounter Visit Diagnoses Not on filedocumented in this encounter Additional Health Concerns Active ProblemsNoted DateDiagnosed DateOB Dlnhqxnof90/24/2025 documented as of this encounter Care Teams Team MemberRelationshipSpecialtyStart DateEnd Date Joaquín Rodriguez DO [address] [place] [address] [facility] - [facility]10/22/22 Joaquín Rodriguez DO [address] [place] [address] PCP - Medical [place] Jnoswcaawu79/1/2312documented as of this encounter
--- OUTSIDE RECORDS SUMMARY | 2025-06-01 18:58 | XMS_ITS | Encounter Summary ---
Author Organization [facility] Address [address] [place] [address] Care Team Providers Care Pipe Out Worker Name Role Phone Dru Rodriguez DO Primary Care Provider [phone] Dru Rodriguez DO Unavailable Encounter Details DateTypeDepartmentCare Team (Latest Contact Info)Nekwlckvbry83/19/2025External Result Encounter [facility] External Department Unsolicited Kolton Cao DO [address] [place] [address] Social History Tobacco UseTypesPacks/DayYears UsedDateSmoking Tobacco: NeverSmokeless [...] relatives?Twice a week03/11/2023How often do you attend lutheran or lutheran services?1 to 4 times per year03/11/2023o you belong to any clubs or organizations such as lutheran groups, unions, fraternal or athletic laura ups, or school groups?No03/11/2023How often do you attend meetings of the clubs or organizations you belong to?Never03/11/2023re you , , , , never , or living with a partner?Mrpttoz6203/11/2023 AUDIT-CAnswerDate RecordedQ1: How often do you have a drink containing alcohol? Monthly or less03/11/2023Q2: How many drinks containing alcohol do you have on a typical day when you are drinking?3 or Q3: How often do you have six or more drinks on one occasion?Less than wowesyo7203/11/2023Overall Financial Resource Strain (CARDIA)AnswerDate RecordedHow hard is it for you to pay for the very basics like food, housing, medical care, and heating?Somewhat hard 03/11/2023HQ-2AnswerDate RecordedPatient Health Questionnaire-2 Score0 03/25/2025[facility] [place] of Occupational Health - Occupational Stress QuestionnaireAnswerDate [...] slept in ashelter (including now)?No03/11/2023Estimated Date of WfhhcsbhNjczurdlQdv45/27/2026ased on last menstrual period of 10/30/2024Sex and Gender InformationValueDate RecordedSex Assigned at TyfnhUyiyge11/01/2023 1:10 PM EDTLegal TvmJtlooi85/15/2023 6:51 PM EDTGender LybmsrvtPwfvbm23/01/2023 1:10 PM EDTSexual MavdnhcufclNpdkkyvk77/01/2023 1:10 PM EDTdocumented as of this encounter Plan of Treatment DateTypeDepartmentCare Team (Latest Contact Info)Ymhkbcdspsq04/07/2026 4:00 PM ESTRoutine [facility] PORTILLO [address] [place] [address] Dixie Gan, GARNETT MECHANIC [address] [place] [address] 06/30/2025 3:50 PM ESTRoutine NOMAislinn PORTILLO [address] [place] [address] Kolton Cao DO [address] [place] [address] documented as of this encounter Goals GoalPatient Goal TypeAssociated ProblemsRecent ProgressPatient-Stated?Author Reminders Care PlanOB RemindersNoOpen Scheduling, Backgrounddocumented as of this encounter Procedures Procedure NamePriorityDate/TimeAssociated DiagnosisCommentsCULTURE, URINE, QABRQERDmhkixb42/19/2025 12:44 PM EST documented in this encounter Results * Urine culture (05/28/2025 12:44 PM EST)ComponentValueRef RangeTest Method Analysis TimePerformed AtPathologist SignatureFRMC NOTE?15,000 colonies/ml mixed ?bacterial skin contaminants ?2 Days 05/31/2025 11:21 AM [facility] CtrSpecimen (Source)Anatomical Location / LateralityCollection Method / VolumeCollection TimeReceived Time Clean-Voided Midstream (Clean Void Midstream)05/28/2025 12:44 PM EST05/28/2025 1:02 PM EST [facility] 05/31/2025 11:21 AM EST Diagnosis: RH NEG Comment: Authorizing ProviderResult TypeResult StatusCorey Kiley DOLAB MICROBIOLOGY - GENERAL ORDERABLESFinal ResultPerforming OrganizationAddressCity/State/ZIP Code Phone Number [facility] [address] [place] [address], [facility] [address] [place] [address] documented in this encounter Visit Diagnoses Not on filedocumented in this encounter Additional Health Concerns Active ProblemsNoted DateDiagnosed DateOB Rlqriidhs00/24/2025 documented as of this encounter Care Teams Team MemberRelationshipSpecialtyStart DateEnd Date Dru Rodriguez DO [address] [place] [address] PCP - GeneralFamily Medicine10/22/22 Dru Rodriguez DO [address] [place] [phone] PCP - Medical [place] Sqvyxftjte94/1/2312documented as of this encounter
--- OUTSIDE RECORDS SUMMARY | 2025-06-01 18:58 | XMS_ITS | Clinical Summary ---
Author Organization [facility] [facility] tem Address [facility] [address] [place] [address] Care Team Providers Care Drip Molder Name Role Phone JenniferDru April MUNGUIA Primary Care Provider [phone]- [phone] Allergies Active AllergyReactionsCriticalityNoted MpauLzjmhuklPucpyipmbwf89/14/2016 Has since taken without reaction Medications * [...] with hyperglycemia, with long-term current use of pztzvaz3002/17/2025Type 1 diabetes mellitus during in third wyhnuncui94/11/2025DKA, type 1, not at goal 07/30/2018Diabetic ketoacidosis associated with type 1 diabetes mellitus 02/22/2017Acute renal mruwwhrgehcmw39/11/2017Mechanical breakdown of insulin pump02/18/2017Generalized anxiety moktxpym54/25/2017Panic disorder without xkwffqeayhq87/25/2017DKA, type Mild intermittent sncfqq9605/23/2016 Estimated Date of WislvkwtDnvxfbfrOhf15/27/2026ased on last menstrual period of 10/30/2024 Resolved Problems ProblemNoted DateDiagnosed DateResolved DateCeliac disease in pediatric patient Encounters DateTypeDepartmentCare IfocZaxjptyjrbo29/23/2025Orders Only Maternal- Medicine at [facility] [address] [place] [address] Odilia Dumas RN 06/01/2025Telephone Maternal- Medicine at [facility] [address] [place] [address] Odilia Dumas RN 06/01/2025Orders Only Maternal- Medicine at [facility] [address] [place] [address] Ivory Quinones MD 05/31/2025Orders Only Maternal- Medicine at [facility] [address] [place] [address] Clarita Mchugh CMA 05/28/2025Telephone Maternal- Medicine at [facility] [address] [place] [address] Odilia Dumas RN 05/28/2025Orders Only Maternal- Medicine at [facility] [address] [place] [address] Odilia Dumas RN 05/26/2025Telephone Maternal- Medicine at [facility] [address] [place] [address] Yue Bullock RN 05/17/2025 1:00 PM ESTTelemedicine Maternal- Medicine at [facility] [address] [place] [address] Rosy Arredondo, ANDRE Type 1 diabetes mellitus during in third trimester (Primary Dx) 05/17/2025Telephone Maternal- Medicine at [facility] [address] [place] [address] Debby Garcia, BRANDT 05/17/20259897Brwgsz47/05/2025Telephone Maternal- Medicine at [facility] [address] [facility] [place] [address] Katie Orozco LD 05/13/2025 8:33 AM EST - 05/13/2025 11:59 PM ESTHospital Encounter [facility] US Imaging [address] [place] [address] Type 1 diabetes mellitus during in second trimester Discharge Disposition: Home05/13/2025Orders Only Maternal- Medicine at [facility] [address] [place] [address] Becca Natarajan, BRANDT Type 1 diabetes mellitus during in second trimester (Primary Dx) 05/13/20255903Wuctid60/02/2025Orders Only Maternal- Medicine at [facility] [address] [place] [address] Ivory Quinones MD 05/10/2025Orders Only Maternal- Medicine at [facility] [address] [facility] [place] [address] Clarita Mchugh, MATERIALS MANAGEMENT SUPERVISOR 05/07/2025Telephone Maternal- Medicine at [facility] [address] [facility] [place] [address] Clarita Mchugh, MATERIALS MANAGEMENT SUPERVISOR 05/05/2025Telephone Maternal- Medicine at [facility] [address] [place] [address] Yue Bullock, BRANDT 05/04/2025Telephone Maternal- Medicine at [facility] [address] [place] [address] Daniel Walker 05/04/2025Orders Only Maternal- Medicine at [facility] [address] [place] [address] Rosy Arredondo PA-C 05/04/2025Orders Only [facility] - Labor [address] [place] [address] Rosy Arredondo PA-C 05/03/2025Orders Only Maternal- Medicine at [facility] [address] [facility] [facility] [place] [address] Debby Garcia RN 04/27/2025Documentation Maternal- Medicine at [facility] [address] [facility] [place] [address] Yue Bullock, BRANDT 04/26/2025Telephone Maternal- Medicine at [facility] [address] [facility] [place] [address] Yue Bullock, BRANDT 04/26/2025Remote Patient Monitoring Maternal- Medicine at [facility] [address] [facility] [place] [address] Ivory Quinones MD Type 1 diabetes mellitus during in second trimester [O24.012] (Primary Dx)04/20/2025 12:29 PM EST - 04/22/2025 2:20 PM ESTHospital Encounter [facility] - GEN 3 Antepartum [address] [facility] [place] [facility] [place] [address] Criselda Green, Uncontrolled type 1 diabetes mellitus with hyperglycemia, with long-term current use of insulin ([facility]) Discharge Disposition: Left Against Medical Advice or Discontinued Care 04/20/2025 10:30 AM ESTTelemedicine Maternal- Medicine at [facility] [address] [place] [address] Rosy Arredondo, PASocoC Type 1 diabetes mellitus during in second trimester (Primary Dx) 04/20/2025Orders Only Maternal- Medicine at [facility] [address] [place] [address] Clarita Mchugh, [facility] 04/20/20259278Tjfgzc06/07/2025 1:53 PM EST - 04/16/2025 11:59 PM ESTHospital Encounter [facility] - Cardiovascular [address] [place] [address] Type 1 diabetes mellitus complicating in second trimester, antepartum Discharge Disposition: Home04/16/2025Results Follow-Up Maternal- Medicine at [facility] [address] [facility] [place] [address] Georgiana Esteban MD Echo complete W/O ubslvfyn84/06/0242Neuyuh94/06/2025Orders Only Maternal- Medicine at [facility] [address] [facility] [place] [address] Katharine Howard LPN Type 1 diabetes mellitus during in second trimester (Primary Dx) 04/14/2025 8:00 AM EST - 04/14/2025 11:59 PM ESTHospital Encounter [facility] - MFM US Imaging [address] [place] [address] Encounter for other screening follow-up Discharge Disposition: Home04/12/2025 10:00 AM ESTTelemedicine Maternal- Medicine at [facility] [address] [place] [address] Poncho Jeffrey MD Type 1 diabetes mellitus during in second trimester (Primary Dx); Type 1 diabetes mellitus during in first yykoitcnn83/03/2025Travel 04/08/2025 1:00 PM EDTTelemedicine Maternal- Medicine at [facility] [address] [place] [address] Georgiana Esteban MD 22 weeks gestation of (Primary Dx); Type 1 diabetes mellitus complicating in second trimester, antepartum; Asthma complicating in second aopeoogpe49/30/1290Wmqddj83/29/2025 Telephone Maternal- Medicine at [facility] [address] [facility] [place] [address] Carolann Urbina, BRANDT 04/06/2025Telephone Maternal- Medicine at [facility] [address] [facility] [place] [address] Carolann Urbina, BRANDT 04/05/2025Orders Only Maternal- Medicine at [facility] [address] [facility] [place] [address] Clarita Mchugh CMA 03/29/2025 10:30 AM EDTTelemedicine Maternal- Medicine at [facility] [address] [place] [address] Rosy Arredondo, PA-C Type 1 diabetes mellitus during in second trimester (Primary Dx) 03/29/20256563Sbxxgq45/20/2025Orders Only Maternal- Medicine at [facility] [address] [facility] [place] [address] Lula Fernandez, RN 03/29/2025Orders Only Maternal- Medicine at [facility] [address] [place] [address] Debby Garcia, BRANDT 03/24/2025Telephone Maternal- Medicine at [facility] [address] [facility] [place] [address] Maritza Milian 03/17/2025Telephone Maternal- Medicine at [place] [address] [place] [address] Maritza Milian 03/16/2025 7:57 AM EDT - 03/16/2025 11:59 PM EDTHospital Encounter [facility] - Ultrasound [address] [place] [address] Type 1 diabetes mellitus during in first trimester Discharge Disposition: Home03/15/2025 3:30 PM EDTTelemedicine Maternal- Medicine at [place] [address] [place] [address] Rosy Arredondo PA-C Type 1 diabetes mellitus during in second trimester (Primary Dx) 03/15/2025Telephone Maternal- Medicine at [address] [address] Debby Garcia RN 03/15/20259149Ynyvey85/06/2025Orders Only Maternal- Medicine at [address] [address] Debby Garcia RN 03/09/2025Orders Only Maternal- Medicine at [address] [address] Yaharia Miller MD 03/09/2025Orders Only Maternal- Medicine at [address] [address] Yue Bullock RN 03/09/2025Remote Patient Monitoring Maternal- Medicine at [address] [address] Yahaira Miller MD Pre-existing type 1 diabetes mellitus with hyperglycemia during in second trimester ([facility]) (Primary Dx)03/08/2025Orders Only Maternal- Medicine at [facility] [address] [place] [address] Clarita Mchugh CMA 03/03/2025 10:30 AM EDTTelemedicine Maternal- Medicine at [facility] [address] [place] [address] Carin Mathur, ANTHONY-ACCOUNT TECHNICIAN Uncontrolled type 1 diabetes mellitus with hyperglycemia, with long-term current use of insulin ([facility]) (Primary Dx)03/03/2025Telephone Maternal- Medicine at [facility] [address] [place] [address] Lula Fernandez, BRANDT 03/03/20256529Ubpyjy72/24/2025Orders Only Maternal- Medicine at [facility] [address] [place] [address] Lula Fernandez, RN from Last 3 Months Immunizations ImmunizationAdministration [...] (1 standard drink = 0.6 oz pure alcohol)socialAHC UtilitiesAnswerDate RecordedIn the past 12 months has the [employer], gas, oil, or water [employer] threatened to shut off services in your home?No09/10/2025AUDIT-CAnswerDate RecordedQ1: How often do you have a [...] care, and heating?Not hard at all02/17/2025PHQ-2AnswerDate RecordedTotal Srvbd62706/12/2023[facility] [place] [facility] Occup[facility] - Occupational Stress QuestionnaireAnswerDate [...] and direction in my life.Agree02/17/2025Estimated Date of ZevvjlawPbctlgxoEcj71/27/2026ased on last menstrual period of 10/30/2024Sex and Gender InformationValueDate RecordedSex Assigned at WiwqmDjtuiy55/22/2025 1:51 AM EDTLegal SexFemale 01/13/2015 11:58 AM EDTGender PktpmcriWniglf00/22/2025 1:51 AM EDTSexual OrientationNot on file Last Filed Vital Signs Vital SignReadingTime TakenCommentsBlood Eletexxp773/6004/22/2025 8:44 AM EST Eoyvt684304/22/2025 8:44 AM GVDVwceuyauoln53.7 ??C (98.1 ??F)04/22/2025 8:44 AM ESTRespiratory Jqgj310106/22/2024 8:44 AM ESTOxygen Hqbfbxlfsn54%04/21/2025 7:24 PM ESTInhaled Oxygen Concentration--Rokbuh05.1 kg (161 lb 2.5 oz)04/20/2025 12:30 PM LNCKwvwse037.3 cm (4' 9.99 )02/17/2025 6:00 PM EDTBody Mass Index33.69 02/17/2025 6:00 PM EDT Plan of Treatment DateTypeDepartmentCare Team (Latest Contact Info)Keopmfgkewm27/02/2026 3:30 PM ESTAppointment [facility] Imaging [address] [place] [address] Health MaintenanceDue DateLast DoneCommentsDiabetic Ophthalmology Exam2001 Diabetic Foot Exam2019Chlamydia Mijkuwqit572Adult BMI Follow Up Plan501/epression Woraxktlb594COVID- 19 Vaccine ( season)/11/2021, 03/21/2021, 1RSV ( or age 60+ yrs) (1 - Risk 1-dose series)6Adult BMI Fqteoxmow95Tobacco Bsccysium03/17/72695606/26/2024Pap Smear 8002/16/2025, 2DTaP,Tdap and Td Vaccines (8 - Td or Tdap) , 03/02/2013, 03/18/2008, Additional history existsInfluenza YqbyvqnZmxuxqwkp81/08/2025, 03/18/2024, 06/12/2023, Additional history exists Medical Devices ImplantedTypeAreaManufacturerDevice IdentifierShelf Expiration DateModel / Serial / LotNexplanonDescription: control implant in right upper arm Procedures Procedure NamePriorityDate/TimeAssociated DiagnosisCommentsUS MFM OB FOLLOW-UP, 1 EENGORyzwvqy69/04/2025 9:12 AM EST Type 1 diabetes mellitus during in second trimester EXTRA TUBES SST NXYUjetyen59/13/2025 9:13 AM EST EXTRA TUBES LAVENDER YHCLzmkhzk40/13/2025 9:13 AM EST EXTRA TUBES PST LECPshqcdj23/13/2025 9:13 AM EST EXTRA KRAKWJozbovp02/13/2025 9:13 AM EST BEDSIDE HDLLZKFCcuvapx10/12/2025 7:17 PM EST BEDSIDE IUGTTDYWvkgwiz41/12/2025 3:56 PM EST BEDSIDE JKYFIYJXhuzleu44/12/2025 3:41 PM EST BEDSIDE OQFWDHYUuagozx01/12/2025 6:13 AM EST BEDSIDE JYVLSYIGixoqet32/11/2025 7:37 PM EST BEDSIDE MZCACOODyrvvac81/11/2025 7:18 PM EST REPEATED WYNQLCdrvpko20/11/2025 1:14 PM EST T4, FREEAdd-On04/20/2025 1:14 PM EST TSHAdd-On04/20/2025 1:14 PM EST ACETONE,(BETAHYDROXYBUTYRATE, KETONE) QUANTITATIVE SFAAMIbehgfg57/11/2025 1:14 PM EST CBC WITH AUTO DGNDTDYJDNDCCjdfipf49/11/2025 1:14 PM EST COMPREHENSIVE METABOLIC DQDJVRzpnxyw97/11/2025 1:14 PM EST ECHO COMPLETE WO ERBKTRWCKhpmyfo50/07/2025 2:29 PM EST Type 1 diabetes mellitus complicating in second trimester, antepartum US M OB FOLLOW-UP, 1 JJBWAUypfwqd54/05/2025 9:34 AM EST Encounter for other screening follow-up ALPHA QXQHIDAFJZRPbwslcm02/30/2025 10:01 AM EDT Encounter for supervision of normal , unspecified, second trimester B-TYPE NATRIURETIC YMIYRKUUqpcheg67/30/2025 10:01 AM EDT Type 1 diabetes mellitus during in second trimester EXTRA TUBES LAVENDER AIHZvepoia35/30/2025 9:56 AM EDT Encounter for supervision of normal , unspecified, second trimester Uncontrolled type 1 diabetes mellitus with hyperglycemia, with long-term current use of insulin ([facility]) Type 1 diabetes mellitus during in second trimester EXTRA SZIOTSkpxvdb03/30/2025 9:56 AM EDT Encounter for supervision of normal , unspecified, second trimester Uncontrolled type 1 diabetes mellitus with hyperglycemia, with long-term current use of insulin ([facility]) Type 1 diabetes mellitus during in second trimester HEMOGLOBIN E9XKbgagwr95/30/2025 9:56 AM EDT Uncontrolled type 1 diabetes mellitus with hyperglycemia, with long-term current use of insulin ([facility]) US MFM COMPREHENSIVE ANATOMIC LBLGVBJunttst10/07/2025 9:52 AM EDT Type 1 diabetes mellitus during in first trimester PAP DTQNINseicie25/24/2022 10:35 AM EDT Cervical smear, as part of routine gynecological examination CHLAMYDIA/GC BY PCR OMAIRA ATFNWkjsinj62/11/2022 6:33 PM EDT Menorrhagia with irregular cycle [...] ART : 2000 SEX: F Accession Number: [id number] ORDERING PHYSICIAN: IVORY QUINONES REFERRING PHYSICIAN: BRYANT PULLIAM Coding Procedures ? 84196: Ultrasound, uterus, real time with image documentation, [...] (oz) ? 10 oz EFW by: ?Hadlock (BZQ-VX-CK-FL) Extended Tibia ??45.1 mm 27w 4d 40% Randolph Program Officer ? 2.4 mm CM ? 6.4 mm [...] MVP measures 4.6 cm. Recommendations Please see [facility] recommendations from prior clinical and/or ultrasound [...] ART : 2000 SEX: F Accession Number: [id number] ORDERING PHYSICIAN: IVORY QUINONES REFERRING PHYSICIAN: BRYANT PULLIAM Coding Procedures 46773: Ultrasound, uterus, real time with image documentation, [...] EFW (oz) 10 oz EFW by: Hadlock (GKA-GC-EI-FL) Extended Tibia 45.1 mm 27w 4d 40% Randolph Program Officer 2.4 mm CM 6.4 mm 42% Nicolaides [...] MVP measures 4.6 cm. Recommendations Please see [facility] recommendations from prior clinical and/or ultrasoundreport documentation. The patient is scheduled in four weeks for follow up growth ultrasound. Subsequent follow up or other follow up as clinically determined byprimary OB provider unless otherwise specified by [facility]. Results forwarded to ordering provider so they can follow up with thepatient as necessary. Authorizing ProviderResult TypeResult StatusNikolina P Docheva MDIMG US ORDERABLESFinal Result * SST TOP (04/22/2025 9:13 AM EST)ComponentValueRef RangeTest MethodAnalysis TimePerformed AtPathologist SignatureExtra TubeAuto Exwlvgro86/13/2025 11:01 AM [facility] LABORATORYSpecimen (Source)Anatomical Location / LateralityCollection Method / VolumeCollection TimeReceived TimeBloodVenous blood / Ulhrgei9204/22/2025 9:13 AM EST04/22/2025 10:09 AM EST Narrative Authorizing ProviderResult TypeResult StatusJejac Green DOLAB BLOOD ORDERABLESFinal ResultPerforming OrganizationAddressCity/State/ZIP CodePhone Number [facility] [address] [place] [address], * Lavender Top (04/22/2025 9:13 AM EST) Only the most recent of2 resultswithin the time period is included. ComponentValueRef RangeTest MethodAnalysis TimePerformed AtPathologist Signature Extra TubeAuto Feydnfuh53/13/2025 11:01 AM [facility] LABORATORYSpecimen (Source)Anatomical Location / LateralityCollection Method / VolumeCollection TimeReceived TimeBloodVenous blood / Qwkqgio9404/22/2025 9:13 AM EST04/22/2025 10:09 AM EST Narrative Authorizing ProviderResult TypeResult StatusCriselda Jeison Noamjay DOLAB BLOOD ORDERABLESFinal ResultPerforming OrganizationAddressCity/State/ZIP CodePhone Number [facility] [address] [place] [address], * PST TOP (04/22/2025 9:13 AM EST)ComponentValueRef RangeTest MethodAnalysis TimePerformed AtPathologist SignatureExtra TubeAuto Pnvbbfdd32/13/2025 11:01 AM [facility] LABORATORYSpecimen (Source)Anatomical Location / LateralityCollection Method / VolumeCollection TimeReceived TimeBloodVenous blood / Hpvtvku1904/22/2025 9:13 AM EST04/22/2025 10:09 AM EST Narrative Authorizing ProviderResult TypeResult StatusJessnatalee Jeison Freddiehailejay DOLAB BLOOD ORDERABLESFinal ResultPerforming OrganizationAddressCity/State/ZIP CodePhone Number [facility] [address] [place] [address], [place] [phone] * (ABNORMAL) Bedside Glucose *Place/Obtain serum glucose if >500 per glucometer. (04/21/2025 7:17 PM EST) Only the most recent of6 resultswithin the time period is included. ComponentValueRef RangeTest MethodAnalysis TimePerformed AtPathologist Signature Bedside Glucose (POC)152(H)65 - 99 mg/dL04/21/2025 7:22 PM [facility] LABORATORYSpecimen (Source)Anatomical Location / LateralityCollection Method / VolumeCollection TimeReceived Timearterial/ptetqsoce44/12/2025 7:17 PM EST 04/21/2025 7:22 PM EST Narrative Authorizing ProviderResult TypeResult StatusTimothyjac Frazierteena DOPOINT OF CARE TEST ORDERABLESFinal ResultPerforming OrganizationAddressCity/State/ZIP CodePhone Number [facility] [address] [place] [address], [place] * ABO Rh Repeat (04/20/2025 1:14 PM EST)ComponentValueRef RangeTest Method Analysis TimePerformed AtPathologist WyibenowmRDNC07/13/2025 10:32 AM ESTTTH BB - DTPZDMJWVTnthsoxt29/13/2025 10:32 AM ESTTTH BB - GOPALKYSpecimen (Source) Anatomical Location / LateralityCollection Method / VolumeCollection Time Received TimeBloodVenous blood / UnknownVenipuncture / Jzyngqi9704/20/2025 1:14 PM EST04/20/2025 1:33 PM EST Narrative Authorizing ProviderResult TypeResult StatusIsaac Sapphire MDBLOOD BANK TEST ORDERABLESFinal ResultPerforming OrganizationAddressty/State/ZIP CodePhone Number [facility] [address] [place] [address], [place] * (ABNORMAL) CBC auto differential (04/20/2025 1:14 PM EST)ComponentValueRef RangeTest MethodAnalysis TimePerformed AtPathologist PfpobqxoxWFH45.7(H)4 - 11 X10^9/L106/20/2024 1:50 PM [facility] LABORATORYRBC Count3.72 (L)3.8 - 5.2 X10^12/L106/20/2024 1:50 PM [facility] Khzgqnntje30.3(L)11.7 - 15.5 g/dL04/20/2025 1:50 PM [facility] ZIBLMLFLEDAvjubkontf11.7(L)35 - 47 %04/20/2025 1:50 PM [facility] FYANDLGRGKSAQ1531 - 100 fL04/20/2025 1:50 PM [facility] RAFNFXCUNBBHS34.327 - 34 pg04/20/2025 1:50 PM [facility] DQCTAFEFVOPKBS06.532 - 36 g/dL04/20/2025 1:50 PM [facility] URKDYWELUNCKJ88.511.5 - 15 %04/20/2025 1:50 PM [facility] LABORATORYPlatelet Delgu385797 - 450 X10^9/L106/20/2024 1:50 PM [facility] LABORATORYMPV8.97 - 12 fL04/20/2025 1:50 PM [facility] LABORATORYNeutrophils %80.6%04/20/2025 1:50 PM [facility] LABORATORYLymphocytes %12.7%04/20/2025 1:50 PM [facility] LABORATORYMonocytes %5.6%04/20/2025 1:50 PM [facility] LABORATORYEosinophils %0.7%04/20/2025 1:50 PM [facility] LABORATORYBasophils %0.4%04/20/2025 1:50 PM [facility] LABORATORYNeutrophils Absolute (A)10.2(H)1.5 - 6.6 X10^9/L 04/20/2025 1:50 PM [facility] LABORATORYLymphocytes Absolute 1.61.0 - 3.5 X10^9/L106/20/2024 1:50 PM [facility] Monocytes Absolute0.70.0 - 0.9 X10^9/L106/20/2024 1:50 PM [facility] LABORATORYEosinophils Absolute0.10.0 - 0.4 X10^9/L106/20/2024 1:50 PM [facility] LABORATORYBasophils Absolute0.10.0 - 0.2 X10^9/L 04/20/2025 1:50 PM [facility] LABORATORYDifferential Type AUTOMATED JOBHUJNCVNPE64/11/2025 1:50 PM [facility] LABORATORYSpecimen (Source)Anatomical Location / LateralityCollection Method / VolumeCollection TimeReceived TimeBloodVenous blood / UnknownVenipuncture / Izdqvfd4904/20/2025 1:14 PM EST04/20/2025 1:33 PM EST Narrative Authorizing ProviderResult TypeResult StatusCristofer PAIGE BLOOD ORDERABLESFinal ResultPerforming OrganizationAddressCity/State/ZIP CodePhone Number [facility] [address] [place] [address], * Acetone, (BetaHydroxybutyrate, Ketone) quantitative, serum (04/20/2025 1:14 PM EST)ComponentValueRef RangeTest MethodAnalysis TimePerformed AtPathologist SignatureBETAHYDROXYBUTYRATE0.100.02 - 0.27 mmol/L106/20/2024 2:15 PM [facility] LABORATORYSpecimen (Source)Anatomical Location / Laterality Collection Method / VolumeCollection TimeReceived TimeBloodVenous blood / UnknownVenipuncture / Elfmcpn3204/20/2025 1:14 PM EST04/20/2025 1:32 PM EST Narrative Authorizing ProviderResult TypeResult StatusCristofer PAIGE BLOOD ORDERABLESFinal ResultPerforming OrganizationAddressCity/State/ZIP CodePhone Number [facility] [address] [place] [address], * TSH (04/20/2025 1:14 PM EST)ComponentValueRef RangeTest MethodAnalysis Time Performed AtPathologist SignatureTSH0.750.49 - 4.67 uIU/mL04/21/2025 9:43 AM [facility] LABORATORYSpecimen (Source)Anatomical Location / LateralityCollection Method / VolumeCollection TimeReceived TimeBloodVenous blood / UnknownVenipuncture / Ujcnwah4604/20/2025 1:14 PM EST04/20/2025 1:32 PM EST Narrative Authorizing ProviderResult TypeResult StatusCristofer PAIGE BLOOD ORDERABLESFinal ResultPerforming OrganizationAddressCity/State/ZIP CodePhone Number [facility] [address] [place] [address], * T4, free (04/20/2025 1:14 PM EST)ComponentValueRef RangeTest MethodAnalysis TimePerformed AtPathologist SignatureFREE T40.640.61 - 1.60 ng/dL04/21/2025 9:48 AM [facility] LABORATORYSpecimen (Source)Anatomical Location / LateralityCollection Method / VolumeCollection TimeReceived Time BloodVenous blood / UnknownVenipuncture / Zlgyocw8104/20/2025 1:14 PM EST 04/20/2025 1:32 PM EST Narrative Authorizing ProviderResult TypeResult Jesus PAIGE BLOOD ORDERABLESFinal ResultPerforming OrganizationAddressCity/State/ZIP CodePhone Number [facility] [address] [place] [address], * (ABNORMAL) Comprehensive metabolic panel (04/20/2025 1:14 PM EST)Component ValueRef RangeTest MethodAnalysis TimePerformed AtPathologist SignatureSODIUM 499839 - 146 mmol/L106/20/2024 2:15 PM [facility] POTASSIUM3.93.5 - 5.0 mmol/L106/20/2024 2:15 PM [facility] JIXINDJVRIETYTSGTA54408 - 109 mmol/L106/20/2024 2:15 PM [facility] LABORATORYCARBON HHOPXTC2209 - 32 mmol/L106/20/2024 2:15 PM [facility] LABORATORYANION GAP75 - 15 mmol/L106/20/2024 2:15 PM [facility] LABORATORYBLOOD UREA CSATUDBW00 - 23 mg/dL04/20/2025 2:15 PM [facility] LABORATORYCREATININE0.620.40 - 1.00 mg/dL 04/20/2025 2:15 PM [facility] LABORATORYComment:METHOD TRACEABLE TO IDND XLBVSDRPURJJAOV450(H)65 - 99 mg/dL04/20/2025 2:15 PM [facility] LABORATORYCALCIUM8.58.5 - 10.5 mg/dL04/20/2025 2:15 PM [facility] LABORATORYTOTAL PROTEIN6.16.0 - 8.0 g/dL 04/20/2025 2:15 PM [facility] LABORATORYALBUMIN3.1(L)3.2 - 5.3 g/dL04/20/2025 2:15 PM [facility] LABORATORYALKALINE RCZOOGQYSPM8173 - 130 U/L106/20/2024 2:15 PM [facility] CHTSCPVDYFADX46<=41 U/L106/20/2024 2:15 PM [facility] UIJAWJNUJGICI08(H)<=31 U/L106/20/2024 2:15 PM [facility] LABORATORYBILIRUBIN,TOTAL0.2(L)0.3 - 1.2 mg/dL04/20/2025 2:15 PM [facility] LABORATORYEGFR Non-Race Dependent>90>=60 ml/min/1.73sq.m 04/20/2025 2:15 PM [facility] LABORATORYComment: Reported eGFR is based on the CKD-EPI 2020 equation that does not use a race coefficient. Specimen (Source)Anatomical Location / LateralityCollection Method / Volume Collection TimeReceived TimeBloodVenous blood / UnknownVenipuncture / Unknown 04/20/2025 1:14 PM EST04/20/2025 1:32 PM EST Narrative Authorizing ProviderResult TypeResult StatusIsaac Sapphire PAIGE BLOOD ORDERABLESFinal ResultPerforming OrganizationAddressCity/State/ZIP CodePhone Number [facility] [address] [place] [address], * Echo complete W/O contrast (04/16/2025 2:29 PM EST)ComponentValueRef RangeTest MethodAnalysis TimePerformed AtPathologist SignatureLVOT stroke oupxej07.88ml EIYCKLLVU9012 - 44 %XCELERALVIDd4.45mmSDKKXRSCNCWs1.82sqJEONPIFTDS7.900.6 - 1.1 cmXCELERAPW0.900.6 - 1.1 cmXCELERALVOT diameter1.53lzIDUINLEMNJ89.20cm/s XCELERAMV TDI E' (medial)8.27cm/sXCELERALA Volume Index13.7mL/g2EKTQITDP/A ratio1.32XCELERAE wave deceleration wtrq823.00msecXCELERAMV Peak E Fmr130.00 cm/sXCELERAMV Peak A Vel78.60cm/sXCELERALA size3.20cmXCELERAAortic root2.50cm XCELERALA gtoolu06.76jk3IFWKNGLIK diastolic dimension (basal)27.0mmXCELERARVID d2.1yaBNKHEKHZHWJU8.38cmXCELERAAV peak cgw361.00cm/sXCELERALVOT peak vel1.16 m/sXCELERAAV VTI39.00cmXCELERALVOT peak VTI26.30cmXCELERAAV mean gradient8.00 mmHgXCELERAAV peak yxfaqprz15.75mmHgXCELERAAV valve area1.36XCELERAValve area - Index0.8XCELERAMV pressure 1/2 time53.00msXCELERAMV valve area p 1/2 method 4.71uq4ANBJJJJVA mean gradient3.00mmHgXCELERAPV peak gradient4.84mmHgXCELERALV ESV A2C20.70mLXCELERALV ESV A4C22.20mLXCELERALV RWT 2D45.00XCELERAAV Velocity Ratio0.67XCELERALeft Ventricle Xgcj084.200117920336446uWXZIOQT Interventricular Septum Diastolic Thickness by 6J5bqBVYYURMEik. RA pressure3 mmHgXCELERARA area9.4lg8ZQMMQIBLyzjutzwgh RegionLateralityModalityChestN/A UltrasoundSpecimen (Source)Anatomical Location / LateralityCollection Method [...] wall motion is normal. Authorizing ProviderResult TypeResult StatusJamrosanna Esteban MDCV ECHO ORDERABLESFinal Result * (ABNORMAL) Alpha fetoprotein (04/08/2025 10:01 AM EDT)ComponentValueRef Range Test MethodAnalysis TimePerformed AtPathologist SignatureALPHA NGRNUHGNCSE75.3 (H)<=9.9 ng/mL04/08/2025 1:25 PM [facility] Specimen (Source)Anatomical Location / LateralityCollection Method / Volume Collection TimeReceived TimeBloodVenous blood / UnknownVenipuncture / Unknown 04/08/2025 10:01 AM EDT1 10:01 AM EDT Narrative Authorizing ProviderResult TypeResult StatusAmy Travis JERNIGAN BLOOD ORDERABLES Final ResultPerforming OrganizationAddressCity/State/ZIP CodePhone Number [facility] [address] [place] [address], [place] [phone] * B-type natriuretic peptide (04/08/2025 10:01 AM EDT)ComponentValueRef Range Test MethodAnalysis TimePerformed AtPathologist HrwisgpklNCV81<=100 pg/mL 04/08/2025 11:[address] JOHN MEDICAL CENTERpecimen (Source) Anatomical Location / LateralityCollection Method / VolumeCollection Time Received TimeBloodVenous blood / UnknownVenipuncture / Ircgwoe2404/08/2025 10:01 AM EDT1 10:01 AM EDT Narrative Authorizing ProviderResult TypeResult StatusColleen E Arnulfo PA-CLAB BLOOD ORDERABLESFinal ResultPerforming OrganizationAddressCity/State/ZIP CodePhone Number [facility] [address] [place] [address], [place] * Hemoglobin A1c (04/08/2025 9:56 AM EDT)ComponentValueRef RangeTest Method Analysis TimePerformed AtPathologist SignatureHEMOGLOBIN A1C5.14.4 - 5.6 % 04/08/2025 1:25 PM [facility] LABORATORYComment: ?ADA Guidelines ?Result ?HgbA1c ? Normal : ? less than 5.7 % ? Prediabetes : ?5.7 % ??to 6.4 % Diabetes : > 6.4 % ?Use with caution in patients with abnormal hemoglobin variants as ??the half-life of red blood cells and in vivo glycation rates are ??affected. EST. AVERAGE GHANPIZ948kv/dL04/08/2025 1:25 PM [facility] LABORATORYSpecimen (Source)Anatomical Location / LateralityCollection Method / VolumeCollection TimeReceived TimeBloodVenous blood / Fovtwwn8804/08/2025 9:56 AM EDT1 10:14 AM EDT Narrative Authorizing ProviderResult TypeResult StatusCarin Mathur KNITTER MECHANIC-CNPLAB BLOOD ORDERABLESFinal ResultPerforming OrganizationAddressCity/State/ZIP CodePhone Number [facility] [address] [place] [address], * Pap Smear (04/02/2022 10:35 AM EDT)Specimen (Source)Anatomical Location / LateralityCollection Method / VolumeCollection TimeReceived Time04/02/2022 10:35 AM EDT1 10:37 AM EDT Narrative COPATH - 04/12/2022 12:17 PM EDT [facility] ? [address] ? [place], [place] [address] ? Gynecologic Cytology Consultation ? Patient Name:DALIA BANKS:2000 (Age: 22)Gender:FTaken:2Reported:04/12/2022hysician(s):Cayla Granados APRNSAINT MARGARET'S H[facility] FOR [facility] ([phone])Copy To: Rec. #:[id number]: #[id number] Final Cytologic Interpretation ThinPrep Pap Test (Cervical): Satisfactory for evaluation. A transformation zone component is present. NEGATIVE FOR INTRAEPITHELIAL LESION OR MALIGNANCY. ?? jja/04/12/2022 Interpretation performed at [email or web address], [address] [place] [address], License number: [id number]. Electronically Signed Out By ?JORGE Olson(ASCP) Date of Last Menstrual Period: ? 02/28/22 Other Clinical Conditions: Z01.419 Principal Developer exam wo/abn findings Source of Specimen ??ThinPrep Pap Test (Cervical) ? Thin Prep Pap (SURVEY DATA TECHNICIAN) Fee Code(s): ?? G0145 Authorizing ProviderResult TypeResult StatusCayla Olivas [facility] PATHOLOGY/CYTOLOGY ORDERABLESFinal ResultPerforming OrganizationAddress City/State/ZIP CodePhone Number [facility] * Chlamydia/GC by PCR Omaira Swab (03/20/2022 6:33 PM EDT)ComponentValueRef Range Test MethodAnalysis TimePerformed AtPathologist SignatureSpecimen sourceCERVIX 03/20/2022 9:54 PM [facility] LABComment:Corrected on 03/20 AT 2154: Previously reported as SWABChlamydia DNA PCRNegativeNegative^Negative 03/21/2022 12:54 PM [facility] LABComment: ? Chlamydia trachomatis not detected by nucleic acid amplification. This does not exclude the possibility of infection because results are dependent on adequate specimen collection. ? Gonorrhea DNA PCRNegativeNegative^Jwojrsbv64/12/2022 12:54 PM [facility] LABComment: ? Neisseria gonorrhoeae not detected by nucleic acid amplification. This does not exclude the possibility of infection because results are dependent on adequate specimen collection. ? Specimen (Source)Anatomical Location / LateralityCollection Method / Volume Collection TimeReceived MpzbKDLW45/11/2022 6:33 PM EDT1 9:50 PM EDT Narrative Authorizing ProviderResult TypeResult StatusCorie Travis Seaman MDMICROBIOLOGY - GENERAL ORDERABLESEdited Result - FinalPerforming OrganizationAddress City/State/ZIP CodePhone Number [facility] [address] [place] [address] from Last 3 Months or Most Recently Relevant to Health Maintenance Insurance Advance Directives * Full Code (Latest Code Status on File) Date ActivatedDate InactivatedComments02/17/2025 6:35 PM02/22/2025 6:48 PM * Full Code Date ActivatedDate NmfyvcqbpvnZzbsyxbb89/27/2021 4:55 PM06/08/2021 4:33 PM * Full Code Date ActivatedDate InactivatedComments01/07/2018 6:44 AM01/07/2018 2:17 PM * Full Code Date ActivatedDate InactivatedComments10/23/2016 11:27 AM10/24/2016 12:42 PM * Full Code Date ActivatedDate InactivatedComments08/01/2016 12:52 AM08/01/2016 4:47 PM Care Teams Team MemberRelationshipSpecialtyStart DateEnd Date Dru Rodriguez DO [address] [place] [address] [facility]01/01/17
--- OUTSIDE RECORDS SUMMARY | 2025-06-01 18:58 | XMS_ITS | Encounter Summary ---
Author Organization [facility] tem Address [id number] [address] [place] [address] Care Team Providers Care Public Address Technician Name Role Phone JenniferDru April MUNGUIA Primary Care Provider [phone]- [phone] Encounter Details DateTypeDepartmentCare Team (Latest Contact Info)Skntxhmhhmh45/23/2025Orders Only Maternal- Medicine at [facility] [address] [place] [phone] Odilia Dumas RN [address] [address] Social History Tobacco UseTypesPacks/DayYears UsedDateSmoking Tobacco: NeverSmokeless Tobacco: NeverAlcohol UseStandard Drinks/WeekCommentsYes0 (1 standard drink = 0.6 oz pure alcohol)Critical access hospital UtilitiesAnswerDate RecordedIn the past 12 months [...] care, and heating?Not hard at all02/17/2025PHQ-2AnswerDate RecordedTotal Kgbec09206/12/2023Fin[facility] [place] of Occupational Health - Occupational Stress QuestionnaireAnswerDate [...] a household?No02/17/2025hildcareAnswerDate RecordedDo problems getting child and youth program assistant make it difficult for you to [...] and direction in my life.Agree02/17/2025Estimated Date of WhxjjavvKaodxamsDoq40/27/2026Based on last menstrual period of 10/30/2024Sex and Gender InformationValueDate RecordedSex Assigned at UcopmZfsrlq19/22/2025 1:51 AM EDTLegal SexFemale 01/13/2015 11:58 AM EDTGender VpbayitcWmgmqu38/22/2025 1:51 AM EDTSexual OrientationNot on filedocumented as of this encounter Plan of Treatment DateTypeDepartmentCare Team (Latest Contact Info)Hazsevjnxbe57/02/2026 3:30 PM ESTAppointment [facility] [address] [place] [phone] documented as of this encounter Visit Diagnoses Not on filedocumented in this encounter Additional Health Concerns AssessmentNoted TimePHQ-9 Depression Total Score: 8:31 AM ESTA Body Mass Index follow-up plan has been documented for the gycqqdn7706/12/2023 4:35 PM ESTdocumented as of this encounter Care Teams Team MemberRelationshipSpecialtyStart DateEnd Date Dru Rodriguez DO [address] [place] [address] PCP - General01/01/17documented as of this encounter
--- OUTSIDE RECORDS SUMMARY | 2025-06-01 18:58 | XMS_ITS | Encounter Summary ---
Author Organization [facility] Address [address] [place] [address] Care Team Providers Care Supervisor Motor Vehicle Assembly Name Role Phone Dru Rodriguez DO Primary Care Provider [phone]- [phone] Dru Rodriguez DO Unavailable [phone] Encounter Details DateTypeDepartmentCare Team (Latest Contact Info)Pufzzwbknks66/21/2025Clinisync Result Encounter [facility] External Department Unsolicited Kolton Cao DO [address] [place] [address] Social History Tobacco UseTypesPacks/DayYears UsedDateSmoking Tobacco: NeverSmokeless [...] relatives?Twice a week03/11/2023How often do you attend baptist or mandaen services?1 to 4 times per year03/11/2023o you belong to any clubs or organizations such as baptist groups, unions, fraternal or athletic laura ups, or school groups?No03/11/2023How often do you attend meetings of the clubs or organizations you belong to?Never03/11/2023re you , , , , never , or living with a partner?Mptgwvd6903/11/2023 AUDIT-CAnswerDate RecordedQ1: How often do you have a drink containing alcohol? Monthly or less03/11/2023Q2: How many drinks containing alcohol do you have on a typical day when you are drinking?3 or Q3: How often do you have six or more drinks on one occasion?Less than oitmvam3003/11/2023Overall Financial Resource Strain (CARDIA)AnswerDate RecordedHow hard is it for you to pay for the very basics like food, housing, medical care, and heating?Somewhat hard 03/11/2023HQ-2AnswerDate RecordedPatient Health Questionnaire-2 Score0 03/25/2025Fin[facility] [place] of Occupational Health - Occupational Stress QuestionnaireAnswerDate [...] slept in ashelter (including now)?No03/11/2023Estimated Date of DtzeupqqIrfiynezMmn97/27/2026ased on last menstrual period of 10/30/2024Sex and Gender InformationValueDate RecordedSex Assigned at AtlmsHfrbrt91/01/2023 1:10 PM EDTLegal TrlVerhpt61/15/2023 6:51 PM EDTGender OnednwvzNkfgle87/01/2023 1:10 PM EDTSexual VjgynfqajedEbcoyjxf17/01/2023 1:10 PM EDTdocumented as of this encounter Plan of Treatment DateTypeDepartmentCare Team (Latest Contact Info)Tgfsmdhjmvy89/07/2026 4:00 PM ESTRoutine [facility] Issac PORTILLO [address] [place] [address] Dixie Gan, [employer] [address] [place] [address] 06/30/2025 3:50 PM ESTRoutine NOMAislinn PORTILLO [address] [place] [address] Kolton Cao DO [address] [place] [address] documented as of this encounter Goals GoalPatient Goal TypeAssociated ProblemsRecent ProgressPatient-Stated?Author Reminders Care PlanOB RemindersNoOpen Scheduling, Backgrounddocumented as of this encounter Procedures Procedure NamePriorityDate/TimeAssociated DiagnosisCommentsAMNISURERoutine 05/30/2025 10:55 PM EST [facility] UA (CLEAN/CATCH) PERSONNEL INTERVIEWER/MICRO IF IND.Eczkeiq9705/30/2025 10:45 PM EST documented in this encounter Results * AMNISURE (05/30/2025 10:55 PM EST)ComponentValueRef RangeTest MethodAnalysis TimePerformed AtPathologist SignatureTBH AMNISURENEGATIVENEGATIVETBHSpecimen (Source)Anatomical Location / LateralityCollection Method / VolumeCollection TimeReceived Time05/30/2025 10:55 PM EST05/30/2025 11:09 PM EST Narrative CLINISYNC - 05/30/2025 11:21 PM EST Authorizing ProviderResult TypeResult StatusCorey Kiley DOLAB BLOOD ORDERABLES Final ResultPerforming OrganizationAddressCity/State/ZIP CodePhone Number CLINISYNC [facility] * (ABNORMAL) [facility] UA (CLEAN/CATCH) PERSONNEL INTERVIEWER/MICRO IF IND. (05/30/2025 10:45 PM EST) ComponentValueRef RangeTest MethodAnalysis TimePerformed AtPathologist SignatureCOLOR URINELT. YELLOWYELLOWTBHCLARITY URINECLEARCLEARTBHSPECIFIC GRAVITY URINE>=1.030(A)1.005 - 1.025TBHPH URINE6.05.0 - 9.0TBHPROTEIN FLJYG174 (A)NEG/TRACE mg/dLTBHGLUCOSE URINE UA250(A)NEGATIVE mg/dLTBHBILIRUBIN URINE NEGATIVENEGATIVETBHKETONES URINETRACE(A)NEGATIVE mg/dLTBHBLOOD URINENEGATIVE NEGATIVETBHNITRITE URINENEGATIVENEGATIVETBHUROBILINOGEN URINE0.20.2 - 1.0 EU/dLTBHLEUKOCYTE ESTERASE URINETRACE(A)NEGATIVETBHURINE MICROSCOPIC INDICATED YESTBHSpecimen (Source)Anatomical Location / LateralityCollection Method / VolumeCollection TimeReceived Time05/30/2025 10:45 PM EST05/30/2025 11:09 PM EST Narrative CLINISYNC - 05/30/2025 11:15 PM EST Authorizing ProviderResult TypeResult StatusCorey Kiley DOCLINISYNCFinal Result Performing OrganizationAddressCity/State/ZIP CodePhone Number CLINFILIBERTO [facility] documented in this encounter Visit Diagnoses Not on filedocumented in this encounter Additional Health Concerns Active ProblemsNoted DateDiagnosed DateOB Eguirtchg55/24/2025 documented as of this encounter Care Teams Team MemberRelationshipSpecialtyStart DateEnd Date Dru Rodriguez, DO [address] [place] [address] PCP - GeneralFamily Medicine10/22/22 Dru Rodriguez DO [address] [place] [address] PCP - Medical [place] Vckdsvjhwi34/1/2312documented as of this encounter
--- OUTSIDE RECORDS SUMMARY | 2025-06-01 18:58 | XMS_ITS | Encounter Summary ---
Author Organization [facility] tem Address [id number] [address] [place] [address] Care Team Providers Care Credit Support Specialist Name Role Phone JenniferDru April MUNGUIA Primary Care Provider [phone]- [phone] Encounter Details DateTypeDepartmentCare Team (Latest Contact Info)Fnrhlqctqmt91/25/2025Orders Only Maternal- Medicine at [facility] [address] [place] [phone] Rosy Arredondo PA-C [address] [address] Social History Tobacco UseTypesPacks/DayYears UsedDateSmoking Tobacco: NeverSmokeless [...] care, and heating?Not hard at all02/17/2025PHQ-2AnswerDate RecordedTotal Cyvqc055Finprimary children's hospital [place] of Occupational Health - Occupational Stress QuestionnaireAnswerDate [...] and direction in my life.Agree02/17/2025Estimated Date of MqvqkwvwTsgogxfpOkk24/27/2026ased on last menstrual period of 10/30/2024Sex and Gender InformationValueDate RecordedSex Assigned at RpoppRymvmg80/22/2025 1:51 AM EDTLegal SexFemale 01/13/2015 11:58 AM EDTGender YapewskbCqlyzz61/22/2025 1:51 AM EDTSexual OrientationNot on filedocumented as [...] Plan of Treatment DateTypeDepartmentCare Team (Latest Contact Info)Xynwfobgemi16/02/2026 3:30 PM ESTAppointment [facility] [address] [place] [address] documented as of this encounter Visit Diagnoses Not on filedocumented in this encounter Additional Health Concerns AssessmentNoted TimePHQ-9 Depression Total Score: 8:31 AM ESTA Body Mass Index follow-up plan has been documented for the fwqrczc2606/12/2023 4:35 PM ESTdocumented as of this encounter Care Teams Team MemberRelationshipSpecialtyStart DateEnd Date Dru Rodriguez DO [address] [place] [address] PCP - General01/01/17documented as of this encounter
--- OUTSIDE RECORDS SUMMARY | 2025-06-01 18:58 | XMS_ITS | Encounter Summary ---
Author Organization [facility] Address [address] [place] [address] Care Team Providers Care Stopper Grinder Name Role Phone Dru Rodriguez DO Primary Care Provider [phone]- [phone] Dru Rodriguez DO Unavailable [phone] Encounter Details DateTypeDepartmentCare Team (Latest Contact Info)Znkjjtxvyuh07/21/2025External Result Encounter [facility] External Department Unsolicited Kolton Cao DO [address] [place] [address] Social History Tobacco UseTypesPacks/DayYears UsedDateSmoking Tobacco: NeverSmokeless [...] relatives?Twice a week03/11/2023How often do you attend jain or restorationist services?1 to 4 times per year03/11/2023o you belong to any clubs or organizations such as jain groups, unions, fraternal or athletic laura ups, or school groups?No03/11/2023How often do you attend meetings of the clubs or organizations you belong to?Never03/11/2023re you , , , , never , or living with a partner?Yrxmdae6203/11/2023 AUDIT-CAnswerDate RecordedQ1: How often do you have a drink containing alcohol? Monthly or less03/11/2023Q2: How many drinks containing alcohol do you have on a typical day when you are drinking?3 or Q3: How often do you have six or more drinks on one occasion?Less than zofxzgy6803/11/2023Overall Financial Resource Strain (CARDIA)AnswerDate RecordedHow hard is it for you to pay for the very basics like food, housing, medical care, and heating?Somewhat hard 03/11/2023HQ-2AnswerDate RecordedPatient Health Questionnaire-2 Score0 03/25/2025[facility] [place] of Occupational Health - Occupational Stress QuestionnaireAnswerDate [...] slept in ashelter (including now)?No03/11/2023Estimated Date of SlayxcfhIxmyqflsTnu61/27/2026ased on last menstrual period of 10/30/2024Sex and Gender InformationValueDate RecordedSex Assigned at FrdkqFnoorf01/01/2023 1:10 PM EDTLegal ZeeJoselm34/15/2023 6:51 PM EDTGender LvszlgwcImkdvi83/01/2023 1:10 PM EDTSexual TambofqumjpJvjpnfrh29/01/2023 1:10 PM EDTdocumented as of this encounter Plan of Treatment DateTypeDepartmentCare Team (Latest Contact Info)Twdpfogstok00/07/2026 4:00 PM ESTRoutine [facility] Issac PORTILLO [address] [place] [address] Dixie Gan, STOPPER GRINDER [address] [place] [address] 06/30/2025 3:50 PM ESTRoutine NOMAislinn PORTILLO [address] [place] [address] Kolton Cao DO [address] [place] [address] NameTypePriorityAssociated DiagnosesDate/TimeUrine cultureMicrobiologyRoutine 05/30/2025 10:45 PM ESTdocumented as of this encounter Goals GoalPatient Goal TypeAssociated ProblemsRecent ProgressPatient-Stated?Author Reminders Care PlanOB RemindersNoOpen Scheduling, Backgrounddocumented as of this encounter Procedures Procedure NamePriorityDate/TimeAssociated DiagnosisCommentsCULTURE, URINE, AKXJJIFJnmutgs15/21/2025 10:45 PM ESTdocumented in this encounter Visit Diagnoses Not on filedocumented in this encounter Additional Health Concerns Active ProblemsNoted DateDiagnosed DateOB Wpuimuqmw47/24/2025 documented as of this encounter Care Teams Team MemberRelationshipSpecialtyStart DateEnd Date Dru Rodriguez DO [address] [place] [address] PCP - GeneralFamily Medicine10/22/22 Dru Rodriguez DO [address] [place] [address] PCP - Medical [place] Nkjqvfceqx28/1/2312documented as of this encounter
--- OUTSIDE RECORDS SUMMARY | 2025-06-01 18:58 | XMS_ITS | Encounter Summary ---
Author Organization [place] tem Address [facility]-[id number] [address] [place] [address] Care Team Providers Care Special Equipment Technician Name Role Phone Dru Rodriguez Primary Care Provider +1- [phone] Encounter Details DateTypeDepartmentCare Team (Latest Contact Info)Tiaajmdbfvs91/22/2025Orders Only Maternal- Medicine at [facility] [address] [facility] [place] [place] [phone] Clarita Mchugh, [facility] Social History Tobacco UseTypesPacks/DayYears UsedDateSmoking Tobacco: NeverSmokeless Tobacco: NeverAlcohol UseStandard Drinks/WeekCommentsYes0 (1 standard drink = 0.6 oz pure alcohol)[facility] UtilitiesAnswerDate RecordedIn the past 12 months has the [employer], gas, oil, or water [employer] [place] threatened to shut off services in your [...] care, and heating?Not hard at all02/17/2025PHQ-2AnswerDate RecordedTotal Xmrxc35506/12/2023[facility] [place] of Occupational Health - Occupational Stress QuestionnaireAnswerDate [...] and direction in my life.Agree02/17/2025Estimated Date of PshtoafgWcgmjcguCdc08/27/2026Based on last menstrual period of 10/30/2024Sex and Gender InformationValueDate RecordedSex Assigned at QartjNpwumu51/22/2025 1:51 AM EDTLegal SexFemale 01/13/2015 11:58 AM EDTGender LfghoeqvMnwycb93/22/2025 1:51 AM EDTSexual OrientationNot on filedocumented as of this encounter Plan of Treatment DateTypeDepartmentCare Team (Latest Contact Info)Gcsepufxybs06/02/2026 3:30 PM ESTAppointment [facility] [address] [place] [address] documented as of this encounter Visit Diagnoses Not on filedocumented in this encounter Additional Health Concerns AssessmentNoted TimePHQ-9 Depression Total Score: 8:31 AM ESTA Body Mass Index follow-up plan has been documented for the auyzzrd8506/12/2023 4:35 PM ESTdocumented as of this encounter Care Teams Team MemberRelationshipSpecialtyStart DateEnd Date Dru Rodriguez DO [address] [place] [address] PCP - General01/01/17documented as of this encounter
--- OUTSIDE RECORDS SUMMARY | 2025-06-01 18:58 | XMS_ITS | Encounter Summary ---
Author Organization [facility] Address [address] [place] [address] Care Team Providers Care Retail Merchandising Manager Name Role Phone Dru Rodriguez DO Primary Care Provider +1- [phone] Dru Rodriguez DO Unavailable Encounter Details DateTypeDepartmentCare Team (Latest Contact Info)Kcxskmkzjpc97/22/2025Abstract [facility] [address] [place] [phone] Dru Rodriguez, DO [address] [place] [address] Social History Tobacco UseTypesPacks/DayYears UsedDateSmoking Tobacco: NeverSmokeless [...] relatives?Twice a week03/11/2023How often do you attend roman catholic or anabaptist services?1 to 4 times per year03/11/2023o you belong to any clubs or organizations such as roman catholic groups, unions, fraternal or athletic laura ups, or school groups?No03/11/2023How often do you attend meetings of the clubs or organizations you belong to?Never03/11/2023re you , , , , never , or living with a partner?Cuhsldv8203/11/2023 AUDIT-CAnswerDate RecordedQ1: How often do you have a drink containing alcohol? Monthly or less03/11/2023Q2: How many drinks containing alcohol do you have on a typical day when you are drinking?3 or Q3: How often do you have six or more drinks on one occasion?Less than wnykjrg8203/11/2023Overall Financial Resource Strain (CARDIA)AnswerDate RecordedHow hard is it for you to pay for the very basics like food, housing, medical care, and heating?Somewhat hard 03/11/2023HQ-2AnswerDate RecordedPatient Health Questionnaire-2 Score0 03/25/2025[facility] [place] of Occupational Health - Occupational Stress [...] before you got the money to buymore.Sometimes true10/02/2023Within the past 12 months, the food you [...] slept in ashelter (including now)?No03/11/2023Estimated Date of HowwwykcEjvlkvsyVzw33/27/2026Based on last menstrual period of 10/30/2024Sex and Gender InformationValueDate RecordedSex Assigned at XbwxtJxqiuk26/01/2023 1:10 PM EDTLegal KamSvvgdx93/15/2023 6:51 PM EDTGender EjavnxuqTtdlqo70/01/2023 1:10 PM EDTSexual EirnwluomkqJcgmbxir20/01/2023 1:10 PM EDTdocumented as of this encounter Plan of Treatment DateTypeDepartmentCare Team (Latest Contact Info)Rbibjznikgu69/07/2026 4:00 PM ESTRoutine [facility] Issac PORTILLO [address] [place] [address] Dixie Gan, SHAWN [address] [place] [address] 06/30/2025 3:50 PM ESTRoutine NOMAislinn PORTILLO [address] [place] [address] Kolton Cao, [address] [place] [address] documented as of this encounter Goals GoalPatient Goal TypeAssociated ProblemsRecent ProgressPatient-Stated?Author Reminders Care PlanOB RemindersNoOpen Scheduling, Backgrounddocumented as of this encounter Visit Diagnoses Not on filedocumented in this encounter Additional Health Concerns Active ProblemsNoted DateDiagnosed DateOB Gvbbydxgr08/24/2025 documented as of this encounter Care Teams Team MemberRelationshipSpecialtyStart DateEnd Date Dru Rodriguez DO [address] [place] [address] PCP - GeneralFamily Medicine10/22/22 Dru Rodriguez DO [address] [place] [address] PCP - Medical [place] Ttblezicfs44/1/2312documented as of this encounter
--- OUTSIDE RECORDS SUMMARY | 2025-06-01 18:58 | XMS_ITS | Encounter Summary ---
Author Organization [facility] tem Address [facility]-[id number] [address] [place] [address] Care Team Providers Care Field Artillery Cannoneer Name Role Phone JenniferDru April MUNGUIA Primary Care Provider +1- [phone] Encounter Details DateTypeDepartmentCare Team (Latest Contact Info)Aihyklpbbxv21/23/2025Orders Only Maternal- Medicine at [facility] [address] [place] [phone] Bhumi Duval MD [address] [facility], [address] [place] [address] Social History Tobacco UseTypesPacks/DayYears UsedDateSmoking Tobacco: NeverSmokeless Tobacco: NeverAlcohol UseStandard Drinks/WeekCommentsYes0 (1 standard drink = 0.6 oz pure alcohol)[facility] UtilitiesAnswerDate RecordedIn the past 12 months [...] care, and heating?Not hard at all02/17/2025PHQ-2AnswerDate RecordedTotal Gyqpq611[facility] [place] of Occupational Health - Occupational Stress QuestionnaireAnswerDate [...] and direction in my life.Agree02/17/2025Estimated Date of QyssddnpEymntpvpDzw37/27/2026ased on last menstrual period of 10/30/2024Sex and Gender InformationValueDate RecordedSex Assigned at FxnqkAotnaf75/22/2025 1:51 AM EDTLegal SexFemale 01/13/2015 11:58 AM EDTGender RrtbalgyPcbqmw05/22/2025 1:51 AM EDTSexual OrientationNot on filedocumented as of this encounter Plan of Treatment DateTypeDepartmentCare Team (Latest Contact Info)Zoxrsmjleeg77/02/2026 3:30 PM ESTAppointment [facility] [address] [place] [address] documented as of this encounter Visit Diagnoses Not on filedocumented in this encounter Additional Health Concerns AssessmentNoted TimePHQ-9 Depression Total Score: 8:31 AM ESTA Body Mass Index follow-up plan has been documented for the tkhuixc9206/12/2023 4:35 PM ESTdocumented as of this encounter Care Teams Team MemberRelationshipSpecialtyStart DateEnd Date Dru Rodriguez DO [address] [place] [address] PCP - General01/01/17documented as of this encounter
--- OUTSIDE RECORDS SUMMARY | 2025-06-01 18:58 | XMS_ITS | Encounter Summary ---
Author Organization [facility] Address [address] [place] [address] Care Team Providers Care Pad Extractor Tender Name Role Phone Joaquín Rodriguez DO Primary Care Provider +1- [phone] Joaquín Rodriguez DO Unavailable [phone] Encounter Details DateTypeDepartmentCare Team (Latest Contact Info)Qpmjrrryumf56/19/2025Clinisync Result Encounter [facility] External Department Unsolicited Bryant Cao DO [address] [place] [address] Social History Tobacco UseTypesPacks/DayYears UsedDateSmoking Tobacco: NeverSmokeless [...] week03/11/2023How often do you attend jewish or quaker services?1 to 4 times per year03/11/2023o you belong to any clubs or organizations such as jewish groups, unions, fraternal or athletic laura ups, or school groups?No03/11/2023How often do you attend meetings of the clubs or organizations you belong to?Never03/11/2023re you , , , , never , or living with a partner?Htbquuh6303/11/2023 AUDIT-CAnswerDate RecordedQ1: How often do you have a drink containing alcohol? Monthly or less03/11/2023Q2: How many drinks containing alcohol do you have on a typical day when you are drinking?3 or Q3: How often do you have six or more drinks on one occasion?Less than xgruwnx7803/11/2023Overall Financial Resource Strain (CARDIA)AnswerDate RecordedHow hard is it for you to pay for the very basics like food, housing, medical care, and heating?Somewhat hard 03/11/2023HQ-2AnswerDate RecordedPatient Health Questionnaire-2 Score0 03/25/2025[facility] [place] of Occupational Health - Occupational Stress QuestionnaireAnswerDate [...] slept in ashelter (including now)?No03/11/2023Estimated Date of NcfqtydqDwudmjclIyk36/27/2026ased on last menstrual period of 10/30/2024Sex and Gender InformationValueDate RecordedSex Assigned at ZfkrzLnqqdh32/01/2023 1:10 PM EDTLegal HoxHhdira88/15/2023 6:51 PM EDTGender EmrgfcsnWzndow15/01/2023 1:10 PM EDTSexual VkjezoxjdllShjakitq19/01/2023 1:10 PM EDTdocumented as of this encounter Plan of Treatment DateTypeDepartmentCare Team (Latest Contact Info)Cdzhvixgxpl82/07/2026 4:00 PM ESTRoutine [facility] Issac PORTILLO [address] [place] [place] [address] Dixie Gan, CARE TRANSITIONS MANAGER [address] [facility] [place] [address] 06/30/2025 3:50 PM ESTRoutine NOMAislinn PORTILLO [address] [address] [place] [address] Bryant Cao DO [address] [facility] [place] [address] documented as of this encounter Goals GoalPatient Goal TypeAssociated ProblemsRecent ProgressPatient-Stated?Author Reminders Care PlanOB RemindersNoOpen Scheduling, Backgrounddocumented as of this encounter Procedures Procedure NamePriorityDate/TimeAssociated DiagnosisCommentsUS OB BPP W NON-PROAQY9105/28/2025 11:24 PM EST URINE CULTURE - GXTXTvhznkp94/19/2025 12:44 PM EST documented in this encounter Results * US OB BPP W NON-STRESS (05/28/2025 11:24 PM EST)Anatomical Region LateralityModalityOtherSpecimen (Source)Anatomical Location / Laterality Collection Method / VolumeCollection TimeReceived Time05/28/2025 11:24 PM EST Narrative 05/28/2025 11:27 PM EST [facility] ?[address] ? [place] [address] ? Ultrasound Report ? Signed ? Patient: KAELYN SHAW ?MR#: [id number] ?? : 2000 ?Acct:[id number] ?? Age/Sex: 25 / F ?ADM Date: 05/28/25 ?? Loc: US ? Attending Dr: Bryant Cao D.O. ? Ordering Physician: Bryant Cao D.O. ?? Date of Service: 05/28/25 ?? Procedure(s): US OB BPP w non-stress ?? Accession Number(s): [id number] ? cc: Bryant Cao D.O.; JOAQUÍN RODRIGUEZ ? [facility] ? [address] ? [place] [address] ? Patient Name: ?? KAELYN SHAW ? MRN: [facility]:[id number] ? date: 2000 ?Sex: F ?? Assigned Patient Location: ?? Current Patient Location: US ?? Accession/Order Number: [id number] ?? Exam Date: 05/28/2025 ??16:19 ?Report Date: [...] Dictation Location: RADIO-PC-17 ? Electronically authenticated by: [id number] ??Y ?? Date: 05/28/2025 ??23:24 ? Dictated By: ?Prashanth Orta M.D. ? Signed By: ?12/19/25 2327 ? DD/ ? TD/TT: ? Solar Photovoltaic Designer: Procedure Note Radiology, Radiologist, - 05/28/2025 [place] [address] Ultrasound Report Signed Patient: KAELYN SHAW MMR#: [id number] : 2000Acct:[id number] Age/Sex: 25 / FADM Date: 05/28/25 Loc: US Attending Dr: Bryant Cao D.O. Ordering Physician: Bryant Cao D.O. Date of Service: 05/28/25 Procedure(s): US OB BPP w non-stress Accession Number(s): [id number] cc: Bryant Cao D.O.; JOAQUÍN RODRIGUEZ The [address] [address] Patient Name: KAELYN SHAW MRN: [id number] date: 2000 Sex: F Assigned Patient Location: Current Patient Location: Accession/Order Number: [id number] Exam Date: 05/28/2025 16:19 Report Date: 05/28/2025 [...] Orta M.D. 05/28/2025 11:24 PM Dictation Location: [place] [address] Electronically authenticated by: [id number] Y Date: 3:24 Dictated By: Prashanth Orta M.D. Signed By:05/28/252326 DD/ 23 TD/TT: Solar Photovoltaic Designer: Authorizing ProviderResult TypeResult StatusCorey Kiley DOCLINISYNC IMAGINGFinal Result * URINE CULTURE - [facility] (05/28/2025 12:44 PM EST)ComponentValueRef RangeTest MethodAnalysis TimePerformed AtPathologist SignatureURINE CULTURE - [facility] ??Urine Culture - [facility] SEE[facility] RESULT^[facility] RESULT TBHURINE CULTURE - FRMCSEEN SEE SCANNED REPORT, NORMAL^SEE SCANNED REPORT, NORMALTBHSpecimen (Source)Anatomical Location / LateralityCollection Method / VolumeCollection TimeReceived Time05/28/2025 12:44 PM EST05/28/2025 12:47 PM EST Narrative CLINISYNC - 05/31/2025 3:31 PM EST Authorizing ProviderResult TypeResult StatusCorey Kiley DOLAB BLOOD ORDERABLES Final ResultPerforming OrganizationAddressCity/State/ZIP CodePhone Number CLINISYNC [facility] documented in this encounter Visit Diagnoses Not on filedocumented in this encounter Additional Health Concerns Active ProblemsNoted DateDiagnosed DateOB Uihjinqgk20/24/2025 documented as of this encounter Care Teams Team MemberRelationshipSpecialtyStart DateEnd Date Joaquín Rodriguez DO [address] [place] [address] PCP - GeneralFamily Medicine10/22/22 Joaquín Rodriguez DO [address] [place] [address] PCP - Medical [place] Pgshygvkmd16/1/2312documented as of this encounter
--- OUTSIDE RECORDS SUMMARY | 2025-06-01 18:58 | XMS_ITS | Encounter Summary ---
Author Organization [facility] tem Address [id number] [address] [place] [address] Care Team Providers Care Processing Operator Name Role Phone JenniferDru April MUNGUIA Primary Care Provider [phone]- [phone] Encounter Details DateTypeDepartmentCare Team (Latest Contact Info)Ycyxqekmqni67/17/2025Telephone Maternal- Medicine at [facility] [address] [facility] [place] [phone] Yue Bullock RN Social History Tobacco UseTypesPacks/DayYears UsedDateSmoking Tobacco: NeverSmokeless Tobacco: NeverAlcohol UseStandard Drinks/WeekCommentsYes0 (1 standard drink = 0.6 oz pure alcohol)[facility] UtilitiesAnswerDate RecordedIn the past 12 months has the [employer], gas, oil, or water [employer] threatened to shut off services in your [...] care, and heating?Not hard at all02/17/2025PHQ-2AnswerDate RecordedTotal Zoqji337Fincache [facility] hospital [place] of Occupational Health - Occupational Stress QuestionnaireAnswerDate [...] and direction in my life.Agree02/17/2025Estimated Date of TtbmfqrjEgptggplQqx26/27/2026Based on last menstrual period of 10/30/2024Sex and Gender InformationValueDate RecordedSex Assigned at MseipTxfxxi92/22/2025 1:51 AM EDTLegal SexFemale 01/13/2015 11:58 AM EDTGender QrcbzbjlUsvmjn08/22/2025 1:51 AM EDTSexual OrientationNot on filedocumented as [...] Plan of Treatment DateTypeDepartmentCare Team (Latest Contact Info)Sndxefbfuws49/02/2026 3:30 PM ESTAppointment [facility] [address] [place] [address] documented as of this encounter Visit Diagnoses Diagnosis Uncontrolled type 1 diabetes mellitus with hyperglycemia, with long-term current use of insulin ([facility]) documented in this encounter Additional Health Concerns AssessmentNoted TimePHQ-9 Depression Total Score: 8:31 AM ESTA Body Mass Index follow-up plan has been documented for the nlhvjtd2806/12/2023 4:35 PM ESTdocumented as of this encounter Care Teams Team MemberRelationshipSpecialtyStart DateEnd Date Dru Rodriguez DO [address] [place] [address] PCP - General01/01/17documented as of this encounter
--- OUTSIDE RECORDS SUMMARY | 2025-06-01 18:58 | XMS_ITS | Encounter Summary ---
Author Organization [facility] tem Address [facility]-[id number] [address] [place] [address] Care Team Providers Care Service Writer Name Role Phone JenniferDru April MUNGUIA Primary Care Provider [phone]- [phone] Encounter Details DateTypeDepartmentCare Team (Latest Contact Info)Csrkvkgvauk18/19/2025Orders Only Maternal- Medicine at [facility] [address] [place] [address] Odilia Dumas RN [address] [address] Social History Tobacco UseTypesPacks/DayYears UsedDateSmoking Tobacco: NeverSmokeless Tobacco: NeverAlcohol UseStandard Drinks/WeekCommentsYes0 (1 standard drink = 0.6 oz pure alcohol)[facility] UtilitiesAnswerDate RecordedIn the past 12 months has [...] care, and heating?Not hard at all02/17/2025PHQ-2AnswerDate RecordedTotal Qepkp27906/12/2023Finuint[facility] [place] of Occupational Health - Occupational Stress QuestionnaireAnswerDate [...] part of a household?No02/17/2025hildcareAnswerDate RecordedDo problems getting salesperson children's shoes make it difficult for you to work [...] and direction in my life.Agree02/17/2025Estimated Date of MxicvfxmUmtuiwlhEhh32/27/2026Based on last menstrual period of 10/30/2024Sex and Gender InformationValueDate RecordedSex Assigned at UdvmjEsgxsp24/22/2025 1:51 AM EDTLegal SexFemale 01/13/2015 11:58 AM EDTGender SdxjnuwoLekiyr56/22/2025 1:51 AM EDTSexual OrientationNot on filedocumented as of this encounter Plan of Treatment DateTypeDepartmentCare Team (Latest Contact Info)Tjoellitlfl83/02/2026 3:30 PM ESTAppointment [facility] Imaging [address] [place] [address] documented as of this encounter Visit Diagnoses Not on filedocumented in this encounter Additional Health Concerns AssessmentNoted TimePHQ-9 Depression Total Score: 8:31 AM ESTA Body Mass Index follow-up plan has been documented for the ufbxafp9206/12/2023 4:35 PM ESTdocumented as of this encounter Care Teams Team MemberRelationshipSpecialtyStart DateEnd Date Dru Rodriguez DO [address] [place] [address] PCP - General01/01/17documented as of this encounter
--- OUTSIDE RECORDS SUMMARY | 2025-06-01 18:58 | XMS_ITS | Encounter Summary ---
Author Organization [facility] Address [address] [place] [address] Care Team Providers Care Manager Nursing Home Name Role Phone LizzDru lam DO Primary Care Provider [phone]- [phone] RonySimon lozadaew April DO Unavailable [phone] Encounter Details DateTypeDepartmentCare Team (Latest Contact Info)Ltxoqdbctbg18/09/2025amboo flowsheet LALITA [place] OBGYLarisa [address] [place] [address] Katharine Cummins PA [address] [place], [facility] Social History Tobacco UseTypesPacks/DayYears UsedDateSmoking Tobacco: [...] relatives?Twice a week03/11/2023How often do you attend hinduism or jew services?1 to 4 times per year03/11/2023o you belong to any clubs or organizations such as hinduism groups, unions, fraternal or athletic laura ups, or school groups?No03/11/2023How often do you attend meetings of the clubs or organizations you belong to?Never03/11/2023re you , , , , never , or living with a partner?Tgaeejv2403/11/2023 AUDIT-CAnswerDate RecordedQ1: How often do you have a drink containing alcohol? Monthly or less03/11/2023Q2: How many drinks containing alcohol do you have on a typical day when you are drinking?3 or Q3: How often do you have six or more drinks on one occasion?Less than dhcezso6503/11/2023Overall Financial Resource Strain (CARDIA)AnswerDate RecordedHow hard is it for you to pay for the very basics like food, housing, medical care, and heating?Somewhat hard 03/11/2023HQ-2AnswerDate RecordedPatient Health Questionnaire-2 Score0 03/25/2025Fincentral [facility] [place] of Occupational Health - [...] slept in ashelter (including now)?No03/11/2023Estimated Date of AcclzppnXdadqhjzPjc17/27/2026ased on last menstrual period of 10/30/2024Sex and Gender InformationValueDate RecordedSex Assigned at MmeuySjtqqq03/01/2023 1:10 PM EDTLegal SftJvrtov62/15/2023 6:51 PM EDTGender CegdiqscDscvuf28/01/2023 1:10 PM EDTSexual PofpovdrfufJavmhkpc88/01/2023 1:10 PM EDTdocumented as of this encounter Plan of Treatment DateTypeDepartmentCare Team (Latest Contact Info)Mqlntodrgae45/07/2026 4:00 PM ESTRoutine [facility] Issac PORTILLO [address] [place] [address] Dixie Gan, SHAWN [address] [place] [address] 06/30/2025 3:50 PM ESTRoutine NOMAislinn PORTILLO [address] [place] [address] Kolton Cao, [address] [place] [address] documented as of this encounter Goals GoalPatient Goal TypeAssociated ProblemsRecent ProgressPatient-Stated?Author Reminders Care PlanOB RemindersNoOpen Scheduling, Backgrounddocumented as of this encounter Visit Diagnoses Not on filedocumented in this encounter Additional Health Concerns Active ProblemsNoted DateDiagnosed DateOB Gewsryicu36/24/2025 documented as of this encounter Care Teams Team MemberRelationshipSpecialtyStart DateEnd Date Dru Rodriguez DO [address] [place] [address] PCP - GeneralFamily Medicine10/22/22 Dru Rodriguez DO [address] [place] [address] PCP - Medical [place] Moaktzqhnh55/1/2312documented as of this encounter
--- OUTSIDE RECORDS SUMMARY | 2025-06-01 18:58 | XMS_ITS | Clinical Summary ---
Author Organization [facility] Healthcare Address [address] [place] [address] Care Team Providers Care Legal Office Administrator Name Role Phone Joaquín Dillon DO Primary Care Provider [phone] Joaquín Dillon DO Unavailable [phone] Allergies Active AllergyReactionsCriticalityNoted DateCommentsAmoxicillinAnaphylaxisHigh 05/23/2016 Mouth irritation JbndmemvzkpEfqtcbizwfpTayb11/14/2016 Has since taken without reaction Medications MedicationSigDispense [...] mL 4Active Insulin Disposable Pump (Omnipod 5 EhbQ3Q6 Pods Gen 5) misc Indications:Type 1 diabetes mellitus without complication (HCC)Inject 1 each under the skin every 3 (three) days CHANGE POD EVERY 3 DAYS DIRECTED 30 each 5Active HumaLOG 100 UNIT/ML solution Indications:Type 1 diabetes mellitus without complication (HCC)USE PER INSULIN PUMP INSTRUCTION MAX OF 80 UNITS DAILY 30 mL 5Active Vit w/Lk-Cjlgbanbv-NH (PNV PO) Take by mouthActive Acetone, Urine, Test (Ketone Test) strip check urine FOR ketones with blood glucose greater THAN 250 mg/dLActive aspirin 81 MG EC tablet Take 81 mg by mouth in the morning.5Active cholecalciferol (Vitamin D-3) 1.25 MG (13660 UT) capsule every week5Active Continuous Glucose Sensor (Dexcom G7 Sensor) misc USE WITH OMNIPOD 5 TO MANAGE BLOOD SUGARS AND CHANGE EVERY 10 DAYS01/21/2025 Active doxylamine (Unisom) 25 MG tablet Take 25 mg by mouth 4 (four) times a day as gmvffh2901/08/2025tive Baqsimi One Pack 3 MG/DOSE nasal powder Use to treat unresponsive buvpqzclfzkn15/11/2025tive OneTouch Ultra Test test strip USE 1 STRIP TO CHECK GLUCOSE 4 TIMES DAILY10/14/2024tive ondansetron ODT (Zofran-ODT) 4 MG disintegrating tablet DISSOLVE 1 TABLET UNDER THE TONGUE EVERY 8 HOURS NEEDED FOR NAUSEA for up to 10 doses01/08/2025tive promethazine (Phenergan) 25 MG tablet Take 25 mg by mouth every 6 (six) hours if vifxkq3601/08/2025tive pyridoxine (Vitamin B-6) 100 MG tablet Take 100 mg by mouth in the morning.Active Active Problems ProblemNoted DateDiagnosed DateHypoglycemia associated with zfunvdar55/30/2025 Mixed obsessional thoughts and acts4PTSD (post-traumatic stress disorder)09/06/2023Type 1 diabetes mellitus without horpzbcshivdl37/28/2023 Assessment & Plan (03/11/2024 7:46 PM EDT): [...] with hypoglycemia and without coma02/04/2023ulging lumbar disc11/08/2022hronic ydekjec1311/08/2022Lumbago with sciatica, left side 11/08/20228480Aeskxpao28/01/2023iliary ijxperqlvg95/01/2023eneralized anxiety rpfnoase27/25/2017Panic disorder without atdfgfqbtnk97/25/2017Celiac disease in pediatric eyfdinx5305/23/2016Mild intermittent wnqaau9905/23/2016Diabetes type 1, wgiktzjgsr03/18/2011Estimated Date of OlbqwfouWafnkmwvXhc21/27/2026ased on last menstrual period of 10/30/2024 Resolved Problems ProblemNoted DateDiagnosed DateResolved DateChronic lleggmmcqeafa28/22/2023 08/05/2023lood vhelqgb64Hypoglycemia due to type 1 diabetes kmzaxsho07Other chronic painRight upper quadrant painiabetic ketoacidosis associated with type 1 diabetes rjvqltqj58cute renal uwxfczhfycyrl42/11/2017 08/05/2023Mechanical breakdown of insulin pumpType 1 diabetes mellitus with ketoacidosis without coma Encounters DateTypeDepartmentCare FevhPulmtuqjqqx98/22/2025 3:30 PM ESTRoutine [facility] [address] [phone] Bryant Cao, DO Third trimester ([facility]); 30 weeks gestation of ([facility])05/31/2025bstract [facility] [address] [place] [address] Joaquín Dillon, DO 05/30/2025External Result Encounter NOMS External Department Unsolicited Kiley, Bryant, DO 5Clinisync Result Encounter NOMS External Department Unsolicited Kiley, Bryant, DO 05/28/2025External Result Encounter NOMS External Department Unsolicited KileyBryant, DO 05/28/2025linisync Result Encounter NOMS External Department Unsolicited KileyJoseyy, DO 05/28/2025Telephone [facility] [address] [phone] Bryant Cao, DO 05/21/2025linisync Result Encounter NOMS External Department Unsolicited KileyBryant, DO 05/18/2025 2:40 PM ESTRoutine [facility] [address] [phone] Katharine Cummins PA 28 weeks gestation of ([facility]); Type 1 diabetes mellitus during , antepartum ([facility]); Third trimester ([facility])05/18/2025amboo flowsheet [facility] [address] [phone] Katharine Cummins PA 05/14/2025linisync Result Encounter NOMS External Department Unsolicited Bryant Cao, DO 05/12/2025Telephone [facility] [address] [place] [phone] Nicolasa Bailey MA 04/27/2025 9:40 AM ESTRoutine [facility] [address] [place] [address] Bryant Cao, DO Hospital discharge follow-up; Second trimester ([facility]); 25 weeks gestation of ([facility]); UTI ziklkmhd87/18/2025amboo flowsheet [facility] [address] [address] Bryant Cao, 04/26/2025Patient Outreach N[facility] [address] [place] [address] Patria Woods LPN 04/26/2025Telephone [facility] [address] [address] Stella Webb MA 04/23/2025Telephone [facility] [address] [place] [address] Cindi Jacinto, [facility] 5Clinisync Result Encounter NOMS External Department Unsolicited Bryant Cao, 5Abstract [facility] [address] [address] Bryant Cao, 04/08/2025 1:50 PM EDTRoutine [facility] [address] [place] [address] Katharine Cummins PA Second trimester ([facility]); 22 weeks gestation of ([facility]); Yeast uvchmesek97/30/2025Patient Outreach N[facility] [address] [place] [address] Aline Dudley, BRANDT 03/30/2025Orders Only [facility] [address] [place] [address] Kristopher Calvo, OD 03/25/2025 8:45 AM EDTOffice Visit [facility] [address] [place] [address] Joaquín Dillon, DO Routine general medical examination at a health care facility (Primary Dx); Generalized anxiety disorder; Celiac disease in pediatric patient (HCC); Mild intermittent asthma, unspecified whether complicated ([facility])03/25/2025Orders [facility] [address] [place] [address] Joaquín Dillon, DO 03/25/2025Telephone [facility] [address] [place] [phone] Lesa Boss LPN 03/25/2025amboo flowsheet [facility] [address] [place] [phone] Joaquín Dillon, DO 03/25/20259564Vpjtbu12/14/2025 8:50 AM EDTRoutine N[facility] [place] [address] Bryant Cao, DO Second trimester ([facility]); 20 weeks gestation of ([facility]); Type 1 diabetes mellitus during , antepartum ([facility])03/23/2025 Abstract [facility] [place] [address] Bryant Cao, DO 5Bamboo flowsheet [facility] [place] [address] Bryant Cao, DO 5Clinisync Result Encounter NOMS External Department Unsolicited Bryant Cao, DO 03/08/2025Patient Outreach NOM[facility] [address] [place] [phone] Aline DudleyBRANDT from Last 3 Months Immunizations ImmunizationAdministration DatesNext TfsADY360159SMqB38/23/2004DTaP, Ddoaxifexgx49/13/2006,11/24/2002,2001,2001HPV, Quadrivalent 08/27/2013,08/21/2013,04/06/2013,03/02/2013Hep B, Adolescent or Pediatric 11/24/2002,2001,2001HiB, yawzhkonjbh19/17/2003,2001,2001 Hib (PRP-T)03/02/2004IPV1,12/20/2005,2001Influenza, injectable, bufjryudjpaf32/26/2021Influenza, injectable, quadrivalent, preservative free 06/12/2023,05/11/2022Influenza, seasonal, injectable, preservative free 03/17/2025,03/18/2024MMR1,12/20/2005,11/24/2002Meningococcal MCV4P 01/22/2018,03/02/2013PPD Test06/12/2023,06/05/2023,05/18/2022,05/11/2022 Pneumococcal Conjugate PCV 7008/05/2001Polio, Qgughhqbbjc39/17/2003,2001 Tdap107/31/2022,03/02/20133534Ctoygcpfq65/21/2023,03/02/2013,03/18/2008,12/20/2005 Family History Medical HistoryRelationNameCommentsArthritisFatherJohn SeamonAsthmaFatherJohn SeamonStrokeMaternal GrandmotherCynthia HicksDrug abuseMotherKristy SeamonCancer OtherStrokeOtherStrokePaternal GrandfatherDiabetesSister 2Jozlytimur MelendezRelation ZipwVesdkeCbeicvagUluiosaw7EtmzgoRaog SeamonAliveMaternal GrandmotherCynthia HicksMotherKristy SeamonDeceasedOtherHalf BrotherPaternal GrandfatherSister 1x2 [...] week03/11/2023How often do you attend advent or mandaeism services?1 to 4 times per year03/11/2023o you belong to any clubs or organizations such as advent groups, unions, fraternal or athletic laura ups, or school groups?No03/11/2023How often do you attend meetings of the clubs or organizations you belong to?Never03/11/2023re you , , , , never , or living with a partner?Tfgpoey1703/11/2023 AUDIT-CAnswerDate RecordedQ1: How often do you have a drink containing alcohol? Monthly or less03/11/2023Q2: How many drinks containing alcohol do you have on a typical day when you are drinking?3 or Q3: How often do you have six or more drinks on one occasion?Less than wpzehrx7903/11/2023Overall Financial Resource Strain (CARDIA)AnswerDate RecordedHow hard is it for you to pay for the very basics like food, housing, medical care, and heating?Somewhat hard 03/11/2023HQ-2AnswerDate RecordedPatient Health Questionnaire-2 Score0 03/25/2025[facility] [place] [facility] Occupational Health - Occupational Stress QuestionnaireAnswerDate [...] steady place to sleep or slept in [place] fall[place] (including now)?No03/11/2023Estimated Date of KnjtpodyDkyoxgqiEnk83/27/2026ased on last menstrual period of 10/30/2024Sex and Gender InformationValueDate RecordedSex Assigned at UfmviIwflhc04/01/2023 1:10 PM EDTLegal FcgHdjcja20/15/2023 6:51 PM EDTGender LnicloipOatrmo54/01/2023 1:10 PM EDTSexual FufqfhhqpbtHspyzxeh23/01/2023 1:10 PM EDT Last Filed Vital Signs Vital SignReadingTime TakenCommentsBlood Uufefoxn742/7405/31/2025 3:50 PM EST Afesj474303/25/2025 8:46 AM HCZNkfgydaxxxz11 ??C (96.8 ??F)03/25/2025 8:46 AM EDT Respiratory Rate--Oxygen Getfmnubcq88%03/25/2025 8:46 AM EDTInhaled Oxygen Concentration--Uaiklj45.2 kg (172 lb 6.4 oz)05/31/2025 3:50 PM TJUQpphcb829.3 cm (4' 10 )03/25/2025 8:46 AM EDTBody Mass Index36.031 8:46 AM EDT Plan of Treatment DateTypeDepartmentCare Team (Latest Contact Info)Eqsqggyqplz84/07/2026 4:00 PM ESTRoutine [facility] [address] [phone] Dixie Gan, MEMBERSHIP ASSISTANT [address] [place] [phone] 06/30/2025 3:50 PM ESTRoutine [facility] [address] [place] [phone] Bryant Cao DO [address] [place], [place] [phone] Health MaintenanceDue DateLast DoneCommentsPneumococcal Vaccine: Pediatrics (0 to 5 Years) and At-Risk Patients (6 to 64 Years) (1 of 2 - PCV)02/12/2020 2001Diabetes: Hemoglobin A1C, 12/15/2024, 12/15/2024, Additional history existsDiabetes: Urine Protein Rzkmbhcwa65, 11/11/2023, 11/11/2023, Additional history existsDiabetes: Retinopathy Screening , 06/30/2019Influenza GmrkkxoCmpscqtsr27/08/2025, 03/18/2024, 06/12/2023, Additional history exists Goals GoalPatient Goal TypeAssociated ProblemsRecent ProgressPatient-Stated?Author Reminders Care PlanOB RemindersNoOpen Scheduling, Background Procedures Procedure NamePriorityDate/TimeAssociated DiagnosisCommentsPOCT URINALYSIS CTFUEUDTAbltkon45/22/2025 4:00 PM EST Third trimester ([facility]) 30 weeks gestation of ([facility]) GQXSWIQLKlahqlr29/21/2025 10:55 PM EST [facility] UA (CLEAN/CATCH) MORTGAGE FIELD INSPECTOR/MICRO IF IND.Zefrmjn1205/30/2025 10:45 PM EST CULTURE, URINE, KPQULZGSxguzwp91/21/2025 10:45 PM ESTUS OB BPP W NON-KRXPTD0205/28/2025 11:24 PM EST URINE CULTURE - FEDHYrasnfe39/19/2025 12:44 PM EST CULTURE, URINE, NOLLTUAWaazomb73/19/2025 12:44 PM EST US OB BPP W NON-JJNNCE8105/21/2025 8:39 PM EST POCT URINALYSIS GNBKDKWFZxbmsgx79/09/2025 2:51 PM EST 28 weeks gestation of ([facility]) Third trimester ([facility]) US OB BPP W NON-HVAXTV0305/14/2025 7:38 PM EST URINARY TRACT INFECTION (HTRX)Vksoasf5504/27/2025 12:15 PM EST POCT URINALYSIS QDDZSYZQOwmwrov17/18/2025 9:55 AM EST 25 weeks gestation of ([facility]) US OB DLPTEZIK92/06/2025 8:24 AM EST POCT URINALYSIS PMFEQOFJWyudtnq72/30/2025 2:07 PM EDT Second trimester ([facility]) ALPHA FETOPROTEIN, TUMOR DGZCJMQdvkoho65/30/2025 10:01 AM EDT DIABETIC RETINOPATHY SCREENING - OU - BOTH WJMUIqsyfzq11/21/2025 12:15 PM EDT CULTURE, URINE, BFGHLSJJdcdqmh30/15/2025 8:04 AM EDT Missed menses POCT URINALYSIS UGCMPGYGDczfylc35/14/2025 9:03 AM EDT 20 weeks gestation of ([facility]) URINE CULTURE, AYZNVFXEnivnua32/11/2025 7:28 AM EDT [facility] URINE MICROSCOPIC NJSSWtbvmph54/11/2025 7:28 AM EDT WXRBOSPKUyytxgs32/11/2025 7:28 AM EDT [facility] UA (CLEAN/CATCH) MORTGAGE FIELD INSPECTOR/MICRO IF IND.Ezqphoa1903/20/2025 7:28 AM EDT HEMOGLOBIN U8FLfrgrdl62/08/2025 10:24 AM EDTMICROALBUMIN / CREATININE URINE SHZQINrdqjby96/20/2025 from Last 3 Months or Most Recently Relevant to Health Maintenance Results * (ABNORMAL) POCT urinalysis dipstick manually resulted (05/31/2025 4:00 PM EST) Only the most recent of5 resultswithin the time period is included. ComponentValueRef RangeTest MethodAnalysis TimePerformed AtPathologist Signature Color, UAYellowClarity, UAClearGlucose, UANegativeNegative - 2000(110) ++++ mg/dLBilirubin, UANegativeNegative - 4(70) +++ mg/dLKetones, UAPositiveNegative - 160(16) ++++ mg/dLSpec Grav, UA1.0251 - 1.03Blood, UAPositiveNegative - 50 Guy/mcLpH, UA6.05 - 9Protein, UAPositiveNegative - 2000(20) ++++ mg/dL Urobilinogen, UA1.00.2 - 12 mg/dLLeukocytes, UAPositiveNegative - 500+++ Danny/mcL Nitrite, UANegativeNegative - PositiveSpecimen (Source)Anatomical Location / LateralityCollection Method / VolumeCollection TimeReceived NstfXuzfk22/22/2025 4:00 PM EST Narrative Authorizing ProviderResult TypeResult StatusCorey Kiley DOPOINT OF CARE TEST ENTER/EDIT ORDERABLESFinal Result * AMNISURE (05/30/2025 10:55 PM EST) Only the most recent of2 resultswithin the time period is included. ComponentValueRef RangeTest MethodAnalysis TimePerformed AtPathologist Signature [facility] AMNISURENEGATIVENEGATIVETBHSpecimen (Source)Anatomical Location / Laterality Collection Method / VolumeCollection TimeReceived Time05/30/2025 10:55 PM EST 05/30/2025 11:09 PM EST Narrative [facility] - 05/30/2025 11:21 PM EST Authorizing ProviderResult TypeResult StatusCorey Kiley DOLAB BLOOD ORDERABLES Final ResultPerforming OrganizationAddressCity/State/ZIP CodePhone Number CLINISYNC [facility] * (ABNORMAL) [facility] UA (CLEAN/CATCH) MORTGAGE FIELD INSPECTOR/MICRO IF IND. (05/30/2025 10:45 PM EST) Only the most recent of2 resultswithin the time period is included. ComponentValueRef RangeTest MethodAnalysis TimePerformed AtPathologist Signature COLOR URINELT. YELLOWYELLOWTBHCLARITY URINECLEARCLEARTBHSPECIFIC GRAVITY URINE >=1.030(A)1.005 - 1.025TBHPH URINE6.05.0 - 9.0TBHPROTEIN KGTAG641(A)NEG/TRACE mg/dLTBHGLUCOSE URINE UA250(A)NEGATIVE mg/dLTBHBILIRUBIN URINENEGATIVENEGATIVE TBHKETONES URINETRACE(A)NEGATIVE mg/dLTBHBLOOD URINENEGATIVENEGATIVETBHNITRITE URINENEGATIVENEGATIVETBHUROBILINOGEN URINE0.20.2 - 1.0 EU/dLTBHLEUKOCYTE ESTERASE URINETRACE(A)NEGATIVETBHURINE MICROSCOPIC INDICATEDYESTBHSpecimen (Source)Anatomical Location / LateralityCollection Method / VolumeCollection TimeReceived Time05/30/2025 10:45 PM EST05/30/2025 11:09 PM EST Narrative [facility] - 05/30/2025 11:15 PM EST Authorizing ProviderResult TypeResult StatusCorey Kiley DOCLINISYNCFinal Result Performing OrganizationAddressCity/State/ZIP CodePhone Number CLINIS[facility]NC [facility] * US OB BPP W NON-STRESS (05/28/2025 11:24 PM EST) Only the most recent of3 resultswithin the time period is included. Anatomical RegionLateralityModalityOtherSpecimen (Source)Anatomical Location / LateralityCollection Method / VolumeCollection TimeReceived Time05/28/2025 11:24 PM EST Narrative 05/28/2025 11:27 PM EST [facility] ?[address] ? [place] [address] ? Ultrasound Report ? Signed ? Patient: KAELYN BANKS M ?MR#: [id number] ?? : 2000 ?Acct:[id number] ?? Age/Sex: 25 / F ?ADM Date: 05/28/25 ?? Loc: US ? Attending Dr: Bryant Cao D.O. ? Ordering Physician: Bryant Cao D.O. ?? Date of Service: 05/28/25 ?? Procedure(s): US OB BPP w non-stress ?? Accession Number(s): [id number] ? cc: Bryant Cao D.O.; JOAQUÍN DILLON ? [facility] ? [address] ? [place] [address] ? Patient Name: ?? KAELYN BANKS ? MRN: [id number] ? date: 2000 ?Sex: F ?? Assigned Patient Location: ?? Current Patient Location: [place] ?? Accession/Order Number: [id number] ?? Exam Date: 05/28/2025 ??16:19 ?Report Date: [...] M.D. ??05/28/2025 11:24 PM ? Dictation Location: [facility] ? Electronically authenticated by: [id number] ??Y ?? Date: 05/28/2025 ??23:24 ? Dictated By: ?Prashanth Orta M.D. ? Signed By: ?05/28/257 ? DD/ ? TD/TT: ? Land Measurer: Procedure Note Radiology, Radiologist, MD - 05/28/2025 [place] [address] Ultrasound Report Signed Patient: KAELYN BANKS MMR#: [id number] : 2000Acct:[id number] Age/Sex: 25 / FADM Date: 05/28/25 Loc: US Attending Dr: Bryant Cao D.O. Ordering Physician: Bryant Cao D.O. Date of Service: 05/28/25 Procedure(s): US OB BPP w non-stress Accession Number(s): [id number] cc: Bryant Cao D.O.; JOAQUÍN DILLON [place] [id number] Patient Name: KAELYN BANKS MRN: [id number] date: 2000 Sex: F Assigned Patient Location: US Current Patient Location: [place] Accession/Order Number: [id number] Exam Date: 05/28/2025 16:19 Report Date: 05/28/2025 [...] Orta M.D. 05/28/2025 11:24 PM Dictation Location: [place] [address] Electronically authenticated by: [id number] Y Date: 3:24 Dictated By: Prashanth Orta M.D. Signed By:05/28/257 DD/ 23 TD/TT: Land Measurer: Authorizing ProviderResult TypeResult StatusCorey Kiley DOCLINISYNC IMAGINGFinal Result * URINE CULTURE - [facility] (05/28/2025 12:44 PM EST)ComponentValueRef RangeTest MethodAnalysis TimePerformed AtPathologist SignatureURINE CULTURE - [facility] ??Urine Culture - [facility] RESULT^[facility] RESULT TBHURINE CULTURE - FRMCSEEN SEE SCANNED REPORT, NORMAL^SEE SCANNED REPORT, NORMALTBHSpecimen (Source)Anatomical Location / LateralityCollection Method / VolumeCollection TimeReceived Time12/ 12:44 PM EST05/28/2025 12:47 PM EST Narrative [place] - 05/31/2025 3:31 PM EST Authorizing ProviderResult TypeResult StatusCorey Kiley DOLAB BLOOD ORDERABLES Final ResultPerforming OrganizationAddressCity/State/ZIP CodePhone Number [facility] * Urine culture (05/28/2025 12:44 PM EST) Only the most recent of2 resultswithin the time period is included. ComponentValueRef RangeTest MethodAnalysis TimePerformed AtPathologist Signature [facility] NOTE?15,000 colonies/ml mixed ?bacterial skin contaminants ?2 Days 05/31/2025 11:21 AM [place] CtrSpecimen (Source)Anatomical Location / LateralityCollection Method / VolumeCollection TimeReceived Time Clean-Voided Midstream (Clean Void Midstream)05/28/2025 12:44 PM EST05/28/2025 1:02 PM EST Narrative [facility] - 05/31/2025 11:21 AM EST Diagnosis: RH NEG Comment: Authorizing ProviderResult TypeResult StatusCorey Kiley DOLAB MICROBIOLOGY - GENERAL ORDERABLESFinal ResultPerforming OrganizationAddressCity/State/ZIP Code Phone Number [facility] [address] [place] [address], [facility] [address] [place] [address] * URINARY TRACT INFECTION (HTRX) (04/27/2025 12:15 PM EST)ComponentValueRef RangeTest MethodAnalysis TimePerformed AtPathologist SignatureACINETOBACTER YYFGEEWA923.961 - 24.689 ppm04/28/2025 6:33 AM ESTHealthTrackRx at [facility] ACINETOBACTER BAUMANIINot Pcpfzohy86.961 - 24.689 ppm04/28/2025 6:33 AM EST [facility] at LabPortCITROBACTER RRQDFLQG113.000 - 32.015 ppm11/ 6:33 AM ESTHealthTrackRx at LabPortCITROBACTER FREUNDIINot Hjiksieg56.000 - 32.015 ppm04/28/2025 6:33 AM ESTHealthTrackRx at LabPortENTEROBACTER AEROGENES, MQFJXCG868.000 - 32.290 ppm04/28/2025 6:33 AM ESTHealthTrackRx at LabPortENTEROBACTER AEROGENES, CLOACAENot Vqofyvbq22.000 - 32.290 ppm 04/28/2025 6:33 AM ESTHealthTrackRx at LabPortENTEROCOCCUS FAECALIS, FAECIUM0 26.000 - 33.043 ppm04/28/2025 6:33 AM ESTHealthTrackRx at LabPortENTEROCOCCUS FAECALIS, FAECIUMNot Gxrwkmos05.000 - 33.043 ppm04/28/2025 6:33 AM EST [facility] at LabPortESCHERICHIA XETZ001.000 - 28.500 ppm04/28/2025 6:33 AM ESTHealthTrackRx at LabPortESCHERICHIA COLINot Hkbnjeqf37.000 - 28.500 ppm 04/28/2025 6:33 AM ESTHealthTrackRx at LabPortKLEBSIELLA PNEUMONIAE, OXYTOCA0 23.000 - 31.865 ppm04/28/2025 6:33 AM ESTHealthTrackRx at LabPortKLEBSIELLA PNEUMONIAE, OXYTOCANot Fzanlxyy94.000 - 31.865 ppm04/28/2025 6:33 AM EST [facility] at LabPortMORGANELLA CAGMJXVS549.961 - 24.689 ppm04/28/2025 6:33 AM ESTHealthTrackRx at LabPortMORGANELLA MORGANIINot Noojgkjj32.961 - 24.689 ppm04/28/2025 6:33 AM ESTHealthTrackRx at LabPortPROTEUS MIRABILIS, VULGARIS0 23.000 - 28.500 ppm04/28/2025 6:33 AM ESTHealthTrackRx at LabPortPROTEUS MIRABILIS, VULGARISNot Ybmrmykv60.000 - 28.500 ppm04/28/2025 6:33 AM EST [facility] at LabPortPSEUDOMONAS PZRQVKRDSQ423.000 - 31.801 ppm04/28/2025 6:33 AM ESTHealthTrackRx at LabPortPSEUDOMONAS AERUGINOSANot Xsrgiyrw08.000 - 31.801 ppm04/28/2025 6:33 AM ESTHealthTrackRx at LabPortSTAPHYLOCOCCUS AUREUS0 26.000 - 31.595 ppm04/28/2025 6:33 AM ESTHealth[facility]Rx at [facility] STAPHYLOCOCCUS AUREUSNot Oehxdqqv07.000 - 31.595 ppm04/28/2025 6:33 AM EST [facility] at LabPortSTREPTOCOCCUS AGALACTIAE (GROUP B STREP)026.000 - 32.435 ppm04/28/2025 6:33 AM ESTHealthTrackRx at LabPortSTREPTOCOCCUS AGALACTIAE (GROUP B STREP)Not Wxdtitvr77.000 - 32.435 ppm04/28/2025 6:33 AM ESTHealthTrackRx at LabPortCANDIDA ALBICANS, PARAPSILOSIS, HKPGKNKDAR454.000 - 30.347 ppm04/28/2025 6:33 AM ESTHealthTrackRx at LabPortCANDIDA ALBICANS, PARAPSILOSIS, TROPICALISNot Tkmuutue95.000 - 30.347 ppm04/28/2025 6:33 AM EST [facility] LabPortCANDIDA DGHCIEQZ762.000 - 31.618 ppm04/28/2025 6:33 AM ESTHealthTrackRx at LabPortCANDIDA GLABRATANot Vcwriujg02.000 - 31.618 ppm 04/28/2025 6:33 AM ESTHealthTrackRx at LabPortCANDIDA ENPGVN865.000 - 30.873 ppm04/28/2025 6:33 AM ESTHealthTrackRx at LabPortCANDIDA KRUSEINot Detected 23.000 - 30.873 ppm04/28/2025 6:33 AM [facility]AT[facility] OKEWUICWPP921.000 - 31.581 ppm04/28/2025 6:33 AM [facility] S[facility]ATIA MARCESCENSNot Gomfdnvr03.000 - 31.581 ppm04/28/2025 6:33 AM EST [facility] LabPortSTREPTOCOCCUS PYOGENES (GROUP A STREP)019.961 - 24.689 ppm04/28/2025 6:33 AM [facility] (GROUP A STREP)Not Cewgwbdn46.961 - 24.689 ppm04/28/2025 6:33 [facility]HYLOCOCCUS EPIDERMIDIS, HAEMOLYTICUS, LUGDUNENSIS, SAPROPHYTICUS (PTMXB156.961 - 24.689 ppm04/28/2025 6:33 AM [facility] STAPHYLOCOCCUS EPIDERMIDIS, HAEMOLYTICUS, LUGDUNENSIS, SAPROPHYTICUS (URINANot Htnhivvy13.961 - 24.689 ppm04/28/2025 6:33 AM [facility] STAPHYLOCOCCUS EPIDERMIDIS, HAEMOLYTICUS, LUGDUNENSIS, SAPROPHYTICUS (URINA0 19.961 - 24.689 ppm04/28/2025 6:33 AM [facility] STAPHYLOCOCCUS EPIDERMIDIS, HAEMOLYTICUS, LUGDUNENSIS, SAPROPHYTICUS (URINANot Kfonmodh80.961 - 24.689 ppm04/28/2025 6:33 AM ESTHealthTrackRx at [facility] Specimen (Source)Anatomical Location / LateralityCollection Method / Volume Collection TimeReceived TgakEanwq03/18/2025 12:15 PM EST04/28/2025 1:31 AM EST Narrative Authorizing ProviderResult TypeResult StatusCorey Kiley DOLAB BLOOD ORDERABLES Final ResultPerforming OrganizationAddressCity/State/ZIP CodePhone Number [facility]ALTHTRACKRX [facility] at [facility] [address] [place] [address] * US OB PLACENTA (04/15/2025 8:24 AM EST)Anatomical RegionLateralityModality OtherSpecimen (Source)Anatomical Location / LateralityCollection Method / VolumeCollection TimeReceived Time04/15/2025 8:24 AM EST Narrative 04/15/2025 8:27 AM EST [facility] ?[address] ? [place] [address] ? Ultrasound Report ? Signed ? Patient: DARREN,MALIKTAN P M ?MR#: [id number] ?? : 2000 ?Acct:[id number] ?? Age/Sex: 25 / F ?ADM Date: ?? Loc: [facility] ??250-1 ? Attending : Bryant Cao D.O. ? Ordering Physician: Bryant Cao D.O. ?? Date of Service: 04/14/25 ?? Procedure(s): US OB placenta ?? Accession Number(s): [id number] ? cc: Bryant Cao D.O.; WILMAJOAQUÍN ? The [facility] ? [address] ? [place] [address] ? Patient Name: ?? KAELYN BANKS ? MRN: [facility]:[id number] ? date: 2000 ?Sex: F ?? Assigned Patient Location: [facility] ?? Current Patient Location: ? Accession/Order Number: [id number] ?? Exam Date: 04/14/2025 ??13:27 ?Report Date: 04/15/2025 ??08:24 ? At the request of: ?? BRYANT ??IKLEY ??DO ? Procedure: ??US OB placenta ? ULTRASOUND OB PLACENTA ? CLINICAL DATA: patient in [facility] ? COMPARISON: None ? There is [...] Dictation Location: RADIO-PC-02 ? Electronically authenticated by: [id number] ??Y ?? Date: 04/15/2025 ??08:24 ? Dictated By: ?Angela Lo M.D. ? Signed By: ?04/15/25 08 ? DD/ 0824 ? TD/TT: ? Land Measurer: Procedure Note Radiology, Radiologist, MD - 04/15/[address] [address] Ultrasound Report Signed Patient: KAELYN BANKS MMR#: [id number] : 2000Acct:[id number] Age/Sex: 25 / FADM Date: Loc: [facility] 250-[address]: Bryant Cao D.O. Ordering Physician: Bryant Cao D.O. Date of Service: 04/14/25 Procedure(s): US OB placenta Accession Number(s): [id number] cc: Bryant Cao D.O.; JOAQUÍN DILLON [place] [address] Patient Name: KAELYN BANKS MRN: [id number] date: 2000 Sex: F Assigned Patient Location: [facility] Current Patient Location: Accession/Order Number: [id number] Exam Date: 04/14/2025 13:27 Report Date: 04/15/2025 [...] Lo M.D. 04/15/2025 8:24 AM Dictation Location: [place] [address] Electronically authenticated by: [id number] Y Date: 508:24 Dictated By: Angela Lo M.D. Signed By:04/15/25826 DD/ 3 TD/TT: Land Measurer: Authorizing ProviderResult TypeResult StatusCorey Kiley DOCLINISYNC IMAGINGFinal Result * (ABNORMAL) AFP tumor marker (04/08/2025 10:01 AM EDT)ComponentValueRef Range Test MethodAnalysis TimePerformed AtPathologist SignatureALPHA NSTCBSJIEGK61.3 (H)<=9.9 ng/mLPROMEDICAComment: ?? PERFORMED AT [facility] [address],[place] [address] Specimen (Source)Anatomical Location / LateralityCollection Method / Volume Collection TimeReceived Time04/08/2025 10:01 AM EDT1 12:35 PM EDT Narrative Authorizing ProviderResult TypeResult StatusAmy Repton PALAB BLOOD ORDERABLES Final ResultPerforming OrganizationAddressCity/State/ZIP CodePhone Number [place] * (ABNORMAL) Diabetic Retinopathy Screening - OU - Both Eyes (03/30/2025 12:15 PM EDT)Anatomical RegionLateralityModalityHeadOther Narrative Authorizing ProviderResult TypeResult StatusThomas W Umesh ODOPHTH PHOTOGRAPHY Final Result * URINE CULTURE, ROUTINE (03/20/2025 7:28 AM EDT)ComponentValueRef RangeTest MethodAnalysis TimePerformed AtPathologist SignatureURINE CULTURE, ROUTINE ??Urine Culture, Routine TBHURINE CULTURE, ROUTINEMixed urogenital floraTBHURINE CULTURE, ROUTINELess than 10,000 colonies/mLTBHURINE CULTURE, ROUTINEPerformed at: [facility] LabCaro CenterTBHURINE CULTURE, [id number] [place], [place] [id number] CULTURE, ROUTINELab Director: Chaka Almanzar PhD, Phone: [phone] Specimen (Source)Anatomical Location / LateralityCollection Method / [...] DOCLINISYNCFinal Result Performing OrganizationAddressCity/State/ZIP CodePhone Number [facility] * Microalbumin / creatinine urine ratio (10/27/2024)ComponentValueRef RangeTest MethodAnalysis TimePerformed AtPathologist SignatureMICROALBUMIN, URINE10.2 Specimen (Source)Anatomical Location / LateralityCollection Method / Volume Collection TimeReceived TimeUrineUrine specimen obtained by clean catch procedure / Cfxymoe4610/27/2024 Narrative Authorizing ProviderResult TypeResult StatusFirelands Physician GroupLAB URINE ORDERABLESFinal Result from Last 3 Months or Most Recently Relevant to Health Maintenance Additional Health Concerns Active ProblemsNoted DateDiagnosed DateOB Gworwpzpg77/24/2025 Insurance Care Teams Team MemberRelationshipSpecialtyStart DateEnd Date Joaquín Dillon DO [address] [place] [address] [facility] - [facility]22 Joaquín Dillon DO [address] [place] [address] PCP - Medical [facility]03/10/2312
--- OUTSIDE RECORDS SUMMARY | 2025-06-01 18:58 | XMS_ITS | Encounter Summary ---
Author Organization [facility] tem Address [id number] [place] [address] Care Team Providers Care Casing Cleaner Name Role Phone JenniferDru April MUNGUIA Primary Care Provider [phone] Encounter Details DateTypeDepartmentCare Team (Latest Contact Info)Qjaeqayfvdx25/19/2025Telephone Maternal- Medicine at [facility] [address] [place] [phone] Odilia Dumas RN [address] [address] Social History Tobacco UseTypesPacks/DayYears UsedDateSmoking Tobacco: NeverSmokeless Tobacco: NeverAlcohol UseStandard Drinks/WeekCommentsYes0 (1 standard drink = 0.6 oz pure alcohol)[facility] UtilitiesAnswerDate RecordedIn the past 12 months [...] care, and heating?Not hard at all02/17/2025PHQ-2AnswerDate RecordedTotal Vzcmg587Findavis [facility] [place] [facility] [employer]ational [facility] - Occupational Stress [...] a household?No02/17/2025hildcareAnswerDate RecordedDo problems getting 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 No answer. [...] Plan of Treatment DateTypeDepartmentCare Team (Latest Contact Info)Henaayblkyx00/02/2026 3:30 PM ESTAppointment [facility] [address] [place] [phone] documented as of this encounter Visit Diagnoses Diagnosis Uncontrolled type 1 diabetes mellitus with hyperglycemia, with long-term current use of insulin ([facility]) documented in this encounter Additional Health Concerns AssessmentNoted TimePHQ-9 Depression Total Score: 8:31 AM ESTA Body Mass Index follow-up plan has been documented for the nrqpghv2206/12/2023 4:35 PM ESTdocumented as of this encounter Care Teams Team MemberRelationshipSpecialtyStart DateEnd Date Dru Rodriguez DO [address] [place] [address] PCP - General01/01/17documented as of this encounter
[2025-06-01 19:08] VITALS: BP 123/78; PULSE 91
== END 2025-06-01 19:35 | disposition home or self-care (01) ==
LOC: FBCO 18:54 → FBC 18:56
PROVIDERS: PCP Family Medicine; Visit Provider Obstetrics & Gynecology
DX: O24.419 Gestational diabetes mellitus in pregnancy, unspecified control (principal); Z3A.30 30 weeks gestation of pregnancy
CPT/HCPCS: 59025

== ENCOUNTER 2025-06-04 18:47 | Outpatient (OUT) | payer OTHER, BC, SELFPAY ==
--- OUTSIDE RECORDS SUMMARY | 2023-12-31 09:00 | XMS_ITS | Continuity of Care Document ---
Author Organization [facility] Address [address] [place] [address] Phone Care Team Providers Care Lens Engraver Name Role Phone Edna Rodriguez Unavailable Unavailable Allergies, Adverse Reactions, Alerts Substance Reaction Status Criticality Penicillins Active No Information Medications Medication Instructions Dosage Effective Dates (start - stop) Status Comments Vraylar 1.5 mg capsule take 1 capsule by oral route every day 1.5 MG - Active sertraline 50 mg tablet take 1.5 tablet by oral route every day 75 MG - Active Vitamin D3 125 mcg (5,000 unit) tablet Take 1 tablet once a day - Active Humalog KwikPen (U-100) Insulin 100 unit/mL subcutaneous inject by subcutaneous route per prescriber's instructions. Insulin dosing requires individualization. 0.00 - Active Procedures Procedure Date PSYTX PT&/FAMILY 60 MINUTES OFFICE/OUTPATIENT VISIT, EST HG A1C LEVEL < 7.0% TOBACCO NON-USER Nutrit Couns For Control Of [place] Dis Dec Resin Composite 1s; Posterior Prophylaxis Adult Moderate Risk Nutrit Couns For Control Of [place] Dis Dec Oral Hygiene Instruction PSYTX PT&/FAMILY 60 MINUTES PSYTX PT&/FAMILY 60 MINUTES OFFICE/OUTPATIENT VISIT, EST HG A1C LEVEL < 7.0% TOBACCO NON-USER PSYTX PT&/FAMILY 60 MINUTES OFFICE/OUTPATIENT VISIT, EST MED LIST [facility] RVW MEDS BY RX/DR [facility] TOBACCO NON-USER PSYTX PT&/FAMILY 60 MINUTES Intraoral-complete Series (bw) Comp Oral Eval New/estab Patient 2023 Oral Hygiene Instruction PSYTX PT&/FAMILY 60 MINUTES OFFICE/OUTPATIENT VISIT, EST DIAST BP 80-89 MM HG SYST BP < 130 MM HG MED LIST [facility] RVW MEDS BY RX/DR [facility] TOBACCO NON-USER PSYTX PT&/FAMILY 60 MINUTES PSYTX PT&/FAMILY 60 MINUTES Advance Directives Directive Yes / No Effective Date File Name No Information Encounters Encounter Description Practice Location Reason(s) For Visit Diagnoses Date Provider Providers Copied on Encounter PSYTX PT&/FAMILY 60 MINUTES [facility], [address] [place] [address], [id number] , [place] tel: [phone] [facility] Psychosis, unspecified psychosis typePTSD (post-traumatic stress disorder)Body mass index [BMI] 27.0-27.9, adultVitamin D deficiency, unspecified 4 Olman Bishop. [address] [place] [address], [id number], [place]. tel:[phone] OFFICE/OUTPA TIENT VISIT, [facility], [address] [place] [address], [id number] , [place] tel:[phone] [facility] Telehealth (chief complaint) Psychosis, unspecified psychosis typePTSD (post-traumatic stress disorder)Body mass index [BMI] 27.0-27.9, adultVitamin D deficiency, unspecified 4 Ray Hurley. [address] [place], [address], [place]. tel: [phone] [facility], [address] [place] [address], [id number] , [place] tel: [phone] Dental Clinic fill (chief complaint) Encounter for screening for dental disorders 4 Jonh aPrr. [address] [place], [place], [id number] , [place]. tel: [phone] [facility], [address] [place] [address], [id number] , [place] tel: [phone] [facility] Dental Clinic [place] (chief complaint) Encounter for screening for dental disorders 4 Jonh Parr. [address] [place], [place], [id number] , [place]. tel: [phone] PSYTX PT&/FAMILY 60 MINUTES [facility], [address] [place] [address], [id number] , [place] tel: [phone] [facility] Psychosis, unspecified psychosis typePTSD (post-traumatic stress disorder)Body mass index [BMI] 27.0-27.9, adultVitamin D deficiency, unspecified 4 Olman Bishop. [address] [place], [address], [place]. tel: [phone] PSYTX PT&/FAMILY 60 MINUTES [facility], [address] [place] [address], [id number] , [place] tel: [phone] [facility] Psychosis, unspecified psychosis typePTSD (post-traumatic stress disorder)Body mass index [BMI] 27.0-27.9, adultVitamin D deficiency, unspecified 4 Olman Bishop. [address] [place] [address], [address], [place]. tel: [phone] OFFICE/OUTPA TIENT VISIT, EST [facility], [address] [place] [address], [id number] , [place] tel: [phone] [facility] Tele[facility] (chief complaint) Psychosis, unspecified psychosis typePTSD (post-traumatic stress disorder)Body mass index [BMI] 27.0-27.9, adultVitamin D deficiency, unspecified 4 [facility]. [address] [place] [address], [id number], . tel: [phone] PSYTX PT&/FAMILY 60 MINUTES [facility], [address] [place] [address], [id number] , [place] tel: [phone] [facility] Psychosis, unspecified psychosis typePTSD (post-traumatic stress disorder)Body mass index [BMI] 27.0-27.9, adult 4 Olman Snydercy. [address] [place] [address], [address], [place]. tel: [phone] OFFICE/OUTPA TIENT VISIT, [facility], [address] [place] [address], [id number] , [place] tel: [phone] [facility] (chief complaint) Psychosis, unspecified psychosis typePTSD (post-traumatic stress disorder)Body mass index [BMI] 27.0-27.9, adult 4 [facility]. [address] [place] [address], [address], [place]. tel: [phone] PSYTX PT&/FAMILY 60 MINUTES [facility], [address] [place] [address], [id number] , [place] tel: [phone] [facility] Psychosis, unspecified psychosis typePTSD (post-traumatic stress disorder)Need for hepatitis C screening testScreening for diabetes mellitusScreening for endocrine disorderScreening for lipid disordersScreening for HIV (human immunodeficiency virus)Body mass index [BMI] 26.0-26.9, adultBody mass index [BMI] 27.0-27.9, adult 4 Olman Bishop. [address] [place] [address], [address], [place]. tel: [phone] [facility], [address] [place] [address], [id number] , [place] tel: [phone] Dental Clinic DN (chief complaint) Body mass index [BMI] 27.0-27.9, adultEncounter for screening for dental disorders 4 Jonh Baumannal. [address] [place], [place], [id number] , [place]. tel: [phone] [facility], [address] [place] [address], [id number] , [place] tel: [phone] [facility] Encounter for routine general gynecological examination without abnormal findingEncounter for gynecological examination (general) (routine) without abnormal findings 4 Ray Hurley. [address] [place] [address], [address], [place]. tel: [phone] PSYTX PT&/FAMILY 60 MINUTES [facility], [address] [place] [address], [id number] , [place] tel: [phone] [facility] Psychosis, unspecified psychosis typePTSD (post-traumatic stress disorder)Need for hepatitis C screening testScreening for diabetes mellitusScreening for endocrine disorderScreening for lipid disordersScreening for HIV (human immunodeficiency virus)Body mass index [BMI] 26.0-26.9, adultBody mass index [BMI] 27.0-27.9, adult 4 Olman Bishop. [address] [place] [address], [address], [place]. tel: [phone] OFFICE/OUTPA TIENT VISIT, EST [facility], [address] [place] [address], [id number] , [place] tel: [phone] [facility] Behavioral health (chief complaint) Need for hepatitis C screening testScreening for diabetes mellitusScreening for endocrine disorderScreening for lipid disordersScreening for HIV (human immunodeficiency virus)Body mass index [BMI] 26.0-26.9, adultPsychosis, unspecified psychosis typePTSD (post-traumatic stress disorder)Body mass index [BMI] 27.0-27.9, adult 4 Ray Hurley. [address] [place] [address], [address], [place]. tel: [phone] PSYTX PT&/FAMILY 60 MINUTES [facility], [address] [place], [place], [id number] , [place] tel: [phone] [facility] Schizophrenia, unspecified 4 Olman Bishop. [address] [place], [address], [place]. tel: [phone] PSYTX PT&/FAMILY 60 MINUTES [facility], [address] [place], [place], [id number] , [place] tel: [phone] [facility] Schizophrenia, unspecified 4 Olman Bishop. [address] [place], [address], [place]. tel: [phone] Family History Family Member Type Diagnosis Age At Onset No Information Payers Payer name Insurance type Covered libertarian ID Authoriza tion(s) No Information Social History Type Description Quantity Date Captured Comments Alcohol Use Details Unknown Caffeine Use Details Unknown Tobacco Use Status No Information Smoking Status No Information Sex Female Sexual Orientation Straight or heterosexual Sep Gender Identity Female Chief Complaint And Reason For Visit No Information Reason For Referral Reason For Referral No Information Plan Of Treatment Date Type Action Status Goal PAP. Due on due Goal Unhealthy drug u se screening. Due on due Goal Tdap Vaccine. Due on 2023 due Goal RLP. Due on due Goal Hepatitis C scre ening. Due on due Goal Hep A. Due on du e Goal PRAPARE ASSESSMENT. Due on due Goal Influenza vaccine. Due on due Goal Depression scree seth. Due on due Goal Lipid panel. Due on due Goal Tdap. Due on due Goal RLP. Due on due Goal Depression scree seth. Due on due Goal Tdap. Due on due Goal PRAPARE ASSESSMENT. Due on due Goal PAP. Due on due Goal Unhealthy drug u se screening. Due on due Goal Influenza vaccine. Due on due Goal Hepatitis C scre ening. Due on due Goal Lipid panel. Due on due Goal Tdap Vaccine. Due on 2023 due Goal Hep A. Due on du e Goal Dietary manageme nt education, guidance, and counseling completed Goal Hep A. Due on du e Goal Hepatitis C scre ening. Due on due Goal Depression scree seth. Due on due Goal RLP. Due on due Goal PAP. Due on due Goal Tdap. Due on due Goal Unhealthy drug u se screening. Due on due Goal PRAPARE ASSESSMENT. Due on due Goal Tdap Vaccine. Due on 2023 due Goal Lipid panel. Due on due Goal Influenza vaccine. Due on due Goal Influenza vaccine. Due on due Goal Tdap Vaccine. Due on 2023 due Goal RLP. Due on due Goal Unhealthy drug u se screening. Due on due Goal Depression scree seth. Due on due Goal PAP. Due on due Goal Hepatitis C scre ening. Due on due Goal PRAPARE ASSESSMENT. Due on due Goal Tdap. Due on due Goal Lipid panel. Due on due Goal Depression scree seth. Due on due Goal Hep A. Due on du e Goal Tdap Vaccine. Due on 2023 due Goal PRAPARE ASSESSMENT. Due on due Goal Tdap. Due on due Goal RLP. Due on due Goal Influenza vaccine. Due on due Goal Hepatitis C scre ening. Due on due Goal PAP. Due on due Goal Lipid panel. Due on due Goal Unhealthy drug u se screening. Due on due Goal RLP. Due on due Goal Hep A. Due on du e Goal Lipid panel. Due on due Goal PAP. Due on due Goal PRAPARE ASSESSMENT. Due on due Goal Hepatitis C scre ening. Due on due Goal Unhealthy drug u se screening. Due on due Goal Depression scree seth. Due on due Goal Tdap Vaccine. Due on 2023 due Goal Influenza vaccine. Due on due Goal Tdap. Due on due Goal Hep A. Due on du e Goal PAP. Due on due Goal Lipid panel. Due on due Goal Unhealthy drug u se screening. Due on due Goal PRAPARE ASSESSMENT. Due on due Goal Hepatitis C scre ening. Due on due Goal RLP. Due on due Goal Tdap. Due on due Goal Tdap Vaccine. Due on 2023 due Goal Depression scree seth. Due on due Goal Influenza vaccine. Due on due Goal Dietary manageme nt education, guidance, and counseling completed Goal Tdap Vaccine. Due on 2023 due Goal PRAPARE ASSESSMENT. Due on due Goal Influenza vaccine. Due on due Goal Tdap. Due on due Goal PAP. Due on due Goal Lipid panel. Due on due Goal Depression scree seth. Due on due Goal Unhealthy drug u se screening. Due on due Goal Hepatitis C scre ening. Due on due Goal RLP. Due on due Goal Unhealthy drug u se screening. Due on due Goal Tdap Vaccine. Due on 2023 due Goal Hepatitis C scre ening. Due on due Goal PRAPARE ASSESSMENT. Due on due Goal Depression scree seth. Due on due Goal PAP. Due on due Goal Influenza vaccine. Due on due Goal Lipid panel. Due on due Goal Tdap. Due on due Goal RLP. Due on due Goal Hep A. Due on du e Goal PAP. Due on due Goal Tdap Vaccine. Due on 2023 due Goal Depression scree seth. Due on due Goal Unhealthy drug u se screening. Due on due Goal Lipid panel. Due on due Goal Influenza vaccine. Due on due Goal PRAPARE ASSESSMENT. Due on due Goal RLP. Due on due Goal Hepatitis C scre ening. Due on due Goal Tdap. Due on due Goal Dietary manageme nt education, guidance, and counseling completed Goal PRAPARE ASSESSMENT. Due on due Goal Hep A. Due on du e Goal RLP. Due on due Goal Hepatitis C scre ening. Due on due Goal Tdap. Due on due Goal Unhealthy drug u se screening. Due on due Goal PAP. Due on due Goal Influenza vaccine. Due on due Goal Depression scree seth. Due on due Goal Tdap Vaccine. Due on 2023 due Goal Dietary manageme nt education, guidance, and counseling completed Goal Hep A. Due on du e Goal Tdap. Due on due Goal Tdap Vaccine. Due on 2023 due Goal PAP. Due on due Goal Hepatitis C scre ening. Due on due Goal RLP. Due on due Goal PRAPARE ASSESSMENT. Due on due Goal Influenza vaccine. Due on due Goal Depression scree seth. Due on due Goal Unhealthy drug u se screening. Due on due Goal Depression scree seth. Due on due Goal PAP. Due on due Goal RLP. Due on due Goal Influenza vaccine. Due on due Goal Tdap. Due on due Goal Unhealthy drug u se screening. Due on due Goal Tdap Vaccine. Due on 2023 due Goal Hepatitis C scre ening. Due on due Goal PRAPARE ASSESSMENT. Due on due Goal Tdap. Due on due Goal PAP. Due on due Goal PRAPARE ASSESSMENT. Due on due Goal Hepatitis C scre ening. Due on due Goal Tdap Vaccine. Due on 2023 due Goal Unhealthy drug u se screening. Due on due Goal Lipid panel. Due on 041 due Goal Influenza vaccine. Due on due Goal RLP. Due on due Goal Depression scree seth. Due on due Goal Lifestyle education regardin g diet completed Goal Tdap. Due on due Goal Tdap Vaccine. Due on 2023 due Goal Influenza vaccine. Due on due Goal PRAPARE ASSESSMENT. Due on due Goal PAP. Due on due Goal Unhealthy drug u se screening. Due on due Goal Depression scree seth. Due on due Goal Hepatitis C scre ening. Due on due Goal RLP. Due on due Goal Depression scree seth. Due on due Goal Tdap Vaccine. Due on 2023 due Goal PRAPARE ASSESSMENT. Due on M ay due Goal Hepatitis C scre ening. Due on due Goal Influenza vaccine. Due on Ma due Goal Unhealthy drug u se screening. Due on due Goal PAP. Due on due Goal Tdap. Due on due Goal RLP. Due on due Future Order: Lab Order HIV 1/0/ 2 Ag/Ab with Reflex ([id number]), Ordered on: Ordered Future Order: Lab Order Hemoglob in A1c ([id number]), Ordered on: Ordered Future Order: Lab Order Lipid Pa jose alejandro ([id number]), Ordered on: Ordered Future Order: Lab Order TSH Rfx on Abnormal to Free T4 ([id number]), Ordered on: Ordered Future Order: Lab Order Vitamin D, 25-Hydroxy ([id number]), Ordered on: Ordered Future Order: Lab Order Vitamin B12 and Folate ([id number]), Ordered on: Ordered Future Order: Lab Order Ammonia, Plasma ([id number]), Ordered on: Ordered Future Order: Lab Order CBC With Differential/Platelet ([id number]), Ordered on: Ordered Future Order: Lab Order Comp. Me tabolic Panel (14) ([id number]), Ordered on: Ordered Future Order: Lab Order Abram gleason Drug Analysis, Ur ([id number]), Ordered on: Ordered Future Order: Lab Order HCV Anti body W/ Reflex To Quantitative Real Time Pcr ([id number]), Ordered on: Ordered History Of Present Illness Encounter Date Complaint History Of Prese nt Illness Telehealth Location of prabha ent: HomeLocation of provider: OfficePatient seen via: [facility] TelehealthReason for televisit: Transportation issuesTotal time spent with patient: 31 minutesPatient gave verbal consent to today's visit: Yes fill [facility] Telehealth Location of prabha ent: HomeLocation of provider: OfficePatient seen via: [facility] TelehealthReason for televisit: Transportation issuesTotal time spent with patient: 19 minutesPatient gave verbal consent to today's visit: Yes Telehealth Location of prabha ent: HomeLocation of provider: OfficePatient seen via: [facility] TelehealthReason for televisit: Transportation issuesTotal time spent with patient: 23 minutesPatient gave verbal consent to today's visit: Yes DN DN Behavioral health Pt is here to establish for behavioral health. Pt referred by Edna Thurman. Pt sees Dr. Rodriguez at [facility] for PCP. Pt is UTD on Pap. Goes through [facility] in [place]. Pt denies homicidal thoughts. Admits to occasional suicidal thoughts but denies a plan. Pt has not taken any medications in the past for mental health. BRANDT Agrawal Functional Status Date Functional Assessmen t No Information Instructions Date Instruction Additional Infor wili Giving encouragement to exercise Related to Body mass index [BMI] 27.0-27.9, adult Dietary management e ducation, guidance, and counseling Related to Body mass index [BMI] 27.0-27.9, adult Giving encouragement to exercise Related to Body mass index [BMI] 27.0-27.9, adult Dietary management e ducation, guidance, and counseling Related to Body mass index [BMI] 27.0-27.9, adult Giving encouragement to exercise Related to Body mass index [BMI] 27.0-27.9, adult Dietary management e ducation, guidance, and counseling Related to Body mass index [BMI] 27.0-27.9, adult Giving encouragement to exercise Related to Body mass index [BMI] 27.0-27.9, adult Dietary management e ducation, guidance, and counseling Related to Body mass index [BMI] 27.0-27.9, adult Lifestyle education regarding di et Related to Body mass index [BMI] 26.0-26.9, adult Giving encouragement to exercise Related to Body mass index [BMI] 26.0-26.9, adult Assessments Type Assessment Date assessment Psychosis, unspecified psychosis type impression Has been on Abilify for over a month. Reports improvement in AH and no longer having VH. She reports increased impulsivity, problems with sleep, and mood changes. This is concerning and is more supportive of bipolar diagnosis. She had side effects on 5 mg dose of Abilify and does not want to increase medication because of this reaction. Discussed options of trialing a different medication such as Vraylar to help with depression and concerns for bipolar disorder. Patient agreeable to this. No safety concerns identified today. Discussed risks/benefits and to call office immediately if she experiences any worsening VH or AH, or if she cannot afford medication. Patient verbalized understanding. assessment PTSD (post-traumatic stress diso rder) impression As evidenced by expo sure to: direct experience, witnessing, or learning of of traumatic event(s); Presence of recurrent, involuntary, intrusive distressing memories of traumatic event(s); recurrent distressing dreams of traumatic event(s); dissociative reactions about traumatic event(s); intense or prolonged psychological distress to cues that resemble traumatic event(s). Persistent avoidance of stimuli associated with traumatic event(s) to avoid distressing memories, thoughts or feelings, or reminders of event. Negative alterations in mood and cognitions including: persistent negative emotional state, feelings of detachment from others, persistent and exaggerated negative beliefs or expectations of oneself, others or the world, persistent inability to experience positive emotions. Patient reports irritable behavior, angry outbursts, exaggerated startle response, problems with concentration, and sleep disturbance. Duration of disturbance has occurred longer than one month assessment Body mass index [BMI] 27.0-27.9, adult assessment Vitamin D deficiency, unspecifie d impression 11/11/23 Vitamin D lev el of 15. Reports taking Vitamin D supplement as prescribed. Will recheck levels in February. Goals Health Concern Goal Type Priority Status Date Anxiety/Depression Patient will incorpo rate self-care/management techniques Patient Goal New Patient Care Teams Name Effective Dates (start - stop) Status Members No Information
--- OUTSIDE RECORDS SUMMARY | 2025-05-31 15:30 | XMS_ITS | Encounter Summary ---
Author Organization [facility] Address [address] [place] [address] Care Team Providers Care Pharmacy Billing Adjudicator Name Role Phone Dru Rodriguez DO Primary Care Provider [phone] Dru Rodriguez DO Unavailable [phone] Reason for Visit * ReasonCommentsRoutine Visit Encounter Details DateTypeDepartmentCare Team (Latest Contact Info)Hiinextnurz47/22/2025 3:30 PM ESTRoutine [facility] [address] [place] [phone] Kolton Cao DO [address] [place], [facility] Third trimester ([facility]); 30 weeks gestation of ([facility]) Social History Tobacco UseTypesPacks/DayYears UsedDateSmoking [...] relatives?Twice a week03/11/2023How often do you attend zoroastrianism or temple services?1 to 4 times per year03/11/2023o you belong to any clubs or organizations such as zoroastrianism groups, unions, fraPrimedic or athletic laura ups, or school groups?No03/11/2023How often do you attend meetings of the clubs or organizations you belong to?Never03/11/2023re you , , , , never , or living with a partner?Sdzavvo4603/11/2023 AUDIT-CAnswerDate RecordedQ1: How often do you have a drink containing alcohol? Monthly or less03/11/2023Q2: How many drinks containing alcohol do you have on a typical day when you are drinking?3 or Q3: How often do you have six or more drinks on one occasion?Less than uufuxro0603/11/2023Overall Financial Resource Strain (CARDIA)AnswerDate RecordedHow hard is it for you to pay for the very basics like food, housing, medical care, and heating?Somewhat hard 03/11/2023HQ-2AnswerDate RecordedPatient Health Questionnaire-2 Score0 03/25/2025[facility] [place] of Occupational Health - Occupational Stress QuestionnaireAnswerDate [...] place to sleep or slept in [facility] (including now)?No03/11/2023Estimated Date of KlfeltavRcypvwajPow87/27/2026Based on last menstrual period of 10/30/2024Sex and Gender InformationValueDate RecordedSex Assigned at BetnhZtpzec03/01/2023 1:10 PM EDTLegal KxuObfweq19/15/2023 6:51 PM EDTGender XsyqpvtzQhcmqg10/01/2023 1:10 PM EDTSexual QzbbzeorlezNwhumnor94/01/2023 1:10 PM EDTdocumented as of this encounter Last Filed Vital Signs Vital SignReadingTime TakenCommentsBlood Ijxmwkpw952/7405/31/2025 3:50 PM EST Pulse--Temperature--Respiratory Rate--Oxygen Saturation--Inhaled Oxygen Concentration--Rzvjnc90.2 kg (172 lb 6.4 oz)05/31/2025 3:50 PM [...] dexcom g7 sensor, doxylamine, humalog, omnipod 5 cfcl4e4 pods gen 5, lantus solostar, ondansetron odt, onetouch ultra test, vit w/gd-qdwvwzite-no, promethazine, and pyridoxine. Medical History: Active Ambulatory [...] [facility]) 01/25/2011 Hypoglycemia associated with diabetes ([facility]) 03/09/2025 Resolved Ambulatory Problems Diagnosis Date Noted Blood blister 11/08/2022 Diabetic ketoacidosis associated with type 1 diabetes mellitus ([facility]) 02/22/2017 Hypoglycemia due to type 1 diabetes mellitus (HCC) 11/08/2022 Other chronic pain 11/08/2022 Type 1 diabetes mellitus with ketoacidosis without coma ([facility]) 08/01/2016 Acute renal insufficiency 02/18/2017 Mechanical breakdown of insulin pump 02/18/2017 Right upper quadrant pain 11/08/2022 Chronic cholecystitis 11/29/2022 Past Medical History: Diagnosis Date Awareness under anesthesia 2014 covid and DKA 05/2021 Exercise-induced asthma (HCC) Lactose intolerance Postoperative wound infection Type 1 diabetes mellitus without complication ([facility]) Family History[1] Social History Tobacco Use Smoking [...] nursing note reviewed. Exam conducted with a mock up builder present. Vitals: Estimated body mass index is 36.03 kg/m?? as calculated from the following: Height as of 03/25/25: 4' 10 . Weight as of this encounter: 172 lb 6.4 oz. BP: 124/74 Patient's last menstrual period was 10/30/2024. Assessment/Plan Encounter Diagnosis: ICD-10-CM 1. Third trimester ([facility]) Z34.93 POCT urinalysis dipstick manually resulted 2. 30 weeks gestation of ([facility]) Z3A.30 POCT urinalysis dipstick manually resulted Return [...] Plan of Treatment DateTypeDepartmentCare Team (Latest Contact Info)Hsjcbxkcifp99/07/2026 4:00 PM ESTRoutine [facility] [address] [place] [phone] Dixie Gan, MINES INSPECTOR [address] [place] [phone] 06/30/2025 3:50 PM ESTRoutine [facility] [address] [place] [phone] Kolton Cao DO [address] [place] [place], [place] [phone] documented as of this encounter Goals GoalPatient Goal TypeAssociated ProblemsRecent ProgressPatient-Stated?Author Reminders Care PlanOB RemindersNoOpen Scheduling, Backgrounddocumented as of this encounter Procedures Procedure NamePriorityDate/TimeAssociated DiagnosisCommentsPOCT URINALYSIS NTMJGUSWUnvrdfy04/22/2025 4:00 PM EST Third trimester ([facility]) 30 weeks gestation of ([facility]) documented in this encounter Results * [...] Location / LateralityCollection Method / VolumeCollection TimeReceived XtxwPtuai03/22/2025 4:00 PM EST Narrative Authorizing ProviderResult TypeResult StatusCorey Kiley DOPOINT OF CARE TEST ENTER/EDIT ORDERABLESFinal Result documented in this encounter Visit Diagnoses Diagnosis Third trimester ([facility]) state, incidental 30 weeks gestation of ([facility]) documented in this encounter Additional Health Concerns Active ProblemsNoted DateDiagnosed DateOB Gofuclzod52/24/2025 documented as of this encounter Care Teams Team MemberRelationshipSpecialtyStart DateEnd Date Dru Rodriguez DO [address] [place] [address] PCP - GeneralFamily Medicine10/22/22 Dru Rodriguez DO [address] [place] [address] PCP - Medical [place] Xzenwzznog79/1/2312documented as of this encounter
--- NOTE | 2025-06-04 | US_ITS ---
[place] [id number] Patient Name: KAELYN BANKS MRN: [id number] date: 2000 Sex: F Assigned Patient Location: [facility] Current Patient Location: Accession/Order Number: [id number] Exam Date: 06/04/2025 19:00 Report Date: 06/04/2025 21:11 At the request of: BRYANT PULLIAM DO Procedure: US OB BPP w non-stress Ultrasound biophysical profile HISTORY: Gestational diabetes Adequate breathing movement, gross body movement, tone and amniotic fluid volume for total score of 8 out of 8. The amniotic fluid index is 13.9cm within normal limits. The heart rate 136 bpm. US/US OB BPP w non-stress IMPRESSION: Adequate ultrasound biophysical profile Impression dictated by: Robert Jesus M.D. 06/04/2025 9:11 PM Dictation Location: [facility] Electronically authenticated by: [id number] Y Date: 06/04/2025 21:11
--- OUTSIDE RECORDS SUMMARY | 2025-06-04 18:51 | XMS_ITS | Clinical Summary ---
Author Organization [employer] [facility] tem Address [facility] [id number] [address] [place] [address] Care Team Providers Care Siebel Administrator Name Role Phone JenniferDru April MUNGUIA Primary Care Provider [phone] Allergies Active AllergyReactionsCriticalityNoted GriqYybgvidzEahfyulslfo56/14/2016 Has since taken without reaction Medications * [...] with hyperglycemia, with long-term current use of ycplvdp5002/17/2025Type 1 diabetes mellitus during in third qvurtwwvz83/11/2025DKA, type 1, not at goal 07/30/2018Diabetic ketoacidosis associated with type 1 diabetes mellitus 02/22/2017Acute renal vyfwejawkjszn70/11/2017Mechanical breakdown of insulin pump02/18/2017Generalized anxiety mufclekk67/25/2017Panic disorder without aryipvzdavu16/25/2017DKA, type Mild intermittent fkzjcg4505/23/2016 Estimated Date of YbyfralxYzhlvqepXkr25/27/2026ased on last menstrual period of 10/30/2024 Resolved Problems ProblemNoted DateDiagnosed DateResolved DateCeliac disease in pediatric patient Encounters DateTypeDepartmentCare OonjVhzgvfiwdin45/23/2025Orders Only Maternal- Medicine at [facility] [address] [place] [address] Odilia Dumas RN 06/01/2025Telephone Maternal- Medicine at [facility] [address] [place] [address] Odilia Dumas RN 06/01/2025Orders Only Maternal- Medicine at [facility] [address] [place] [address] Ivory Quinones MD 05/31/2025Orders Only Maternal- Medicine at [facility] [address] [place] [address] Clarita Mchugh CMA 05/28/2025Telephone Maternal- Medicine at [facility] [address] [place] [address] Odilia Dumas RN 05/28/2025Orders Only Maternal- Medicine at [facility] [address] [place] [address] Odilia Dumas RN 05/26/2025Telephone Maternal- Medicine at [facility] [address] [place] [address] Yue Bullock RN 05/17/2025 1:00 PM ESTTelemedicine Maternal- Medicine at [facility] [address] [place] [address] Rosy Arredondo, ANDRE Type 1 diabetes mellitus during in third trimester (Primary Dx) 05/17/2025Telephone Maternal- Medicine at [facility] [address] [place] [address] Debby Garcia, BRANDT 05/17/20256437Fgvtcx80/05/2025Telephone Maternal- Medicine at [facility] [address] [facility] [place] [address] Katie Orozco LD 05/13/2025 8:33 AM EST - 05/13/2025 11:59 PM ESTHospital Encounter [facility] - [facility] US Imaging [address] [place] [address] Type 1 diabetes mellitus during in second trimester Discharge Disposition: Home05/13/2025Orders Only Maternal- Medicine at [facility] [address] [place] [address] Becca Natarajan, BRANDT Type 1 diabetes mellitus during in second trimester (Primary Dx) 05/13/20257318Moddhc39/02/2025Orders Only Maternal- Medicine at [facility] [address] [place] [address] Ivory Quinones MD 05/10/2025Orders Only Maternal- Medicine at [facility] [address] [facility] [place] [address] Clarita Mchugh, GINGER FARMER 05/07/2025Telephone Maternal- Medicine at [facility] [address] [facility] [place] [address] Clarita Mchugh, GINGER FARMER 05/05/2025Telephone Maternal- Medicine at [facility] [address] [place] [address] Yue Bullock, BRANDT 05/04/2025Telephone Maternal- Medicine at [facility] [address] [place] [address] Daniel Walker 05/04/2025Orders Only Maternal- Medicine at [facility] [address] [place] [address] Rosy Arredondo PA-C 05/04/2025Orders Only [facility] - Labor [address] [place] [address] Rosy Arredondo PA-C 05/03/2025Orders Only Maternal- Medicine at [facility] [address] [facility] [place] [address] Debby Garcia RN 04/27/2025Documentation Maternal- Medicine at [facility] [address] [facility] [place] [address] Yue Bullock, BRANDT 04/26/2025Telephone Maternal- Medicine at [facility] [address] [facility] [place] [address] Yue Bullock, BRANDT 04/26/2025Remote Patient Monitoring Maternal- Medicine at [facility] [address] [facility] [place] [address] Ivory Quinones MD Type 1 diabetes mellitus during in second trimester [O24.012] (Primary Dx)04/20/2025 12:29 PM EST - 04/22/2025 2:20 PM ESTHospital Encounter [facility] - GEN 3 Antepartum [address] [facility] [place] [address] Criselda Green, Uncontrolled type 1 diabetes mellitus with hyperglycemia, with long-term current use of insulin ([facility]) Discharge Disposition: Left Against Medical Advice or Discontinued Care 04/20/2025 10:30 AM ESTTelemedicine Maternal- Medicine at [facility] [address] [place] [address] Rosy Arredondo, PASocoC Type 1 diabetes mellitus during in second trimester (Primary Dx) 04/20/2025Orders Only Maternal- Medicine at [facility] [address] [place] [address] Clarita Mchugh, [facility] 04/20/20255362Bqlpwm62/07/2025 1:53 PM EST - 04/16/2025 11:59 PM ESTHospital Encounter [facility] - Cardiovascular [address] [place] [address] Type 1 diabetes mellitus complicating in second trimester, antepartum Discharge Disposition: Home04/16/2025Results Follow-Up Maternal- Medicine at [facility] [address] [facility] [place] [address] Georgiana Esteban MD Echo complete W/O xadmfles20/06/4659Crpvjw59/06/2025Orders Only Maternal- Medicine at [facility] [address] [facility] [place] [address] Katharine Howard LPN Type 1 diabetes mellitus during in second trimester (Primary Dx) 04/14/2025 8:00 AM EST - 04/14/2025 11:59 PM ESTHospital Encounter [facility] - MFM US Imaging [address] [place] [address] Encounter for other screening follow-up Discharge Disposition: Home04/12/2025 10:00 AM ESTTelemedicine Maternal- Medicine at [facility] [address] [place] [address] Poncho Jeffrey MD Type 1 diabetes mellitus during in second trimester (Primary Dx); Type 1 diabetes mellitus during in first yyxaczuby54/03/2025Travel 04/08/2025 1:00 PM EDTTelemedicine Maternal- Medicine at [facility] [address] [place] [address] Georgiana Esteban MD 22 weeks gestation of (Primary Dx); Type 1 diabetes mellitus complicating in second trimester, antepartum; Asthma complicating in second srpsijixf38/30/0790Qrfynm84/29/2025 Telephone Maternal- Medicine at [facility] [address] [facility] [address] Carolann Urbina, BRANDT 04/06/2025Telephone Maternal- Medicine at [facility] [address] [facility] [place] [address] Carolann Urbina, BRANDT 04/05/2025Orders Only Maternal- Medicine at [facility] [address] [facility] [place] [address] Clarita Mchugh CMA 03/29/2025 10:30 AM EDTTelemedicine Maternal- Medicine at [facility] [address] [place] [address] Rosy Arredondo, PA-C Type 1 diabetes mellitus during in second trimester (Primary Dx) 03/29/20253543Rvrfrs83/20/2025Orders Only Maternal- Medicine at [facility] [address] [facility] [address] Lula Fernandez, RN 03/29/2025Orders Only Maternal- Medicine at [facility] [address] [place] [address] Debby Garcia, BRANDT 03/24/2025Telephone Maternal- Medicine at [facility] [address] [facility] [address] Maritza Milian 03/17/2025Telephone Maternal- Medicine at [place] [address] [place] [address] Maritza Milian 03/16/2025 7:57 AM EDT - 03/16/2025 11:59 PM EDTHospital Encounter [facility] - Ultrasound [address] [place] [address] Type 1 diabetes mellitus during in first trimester Discharge Disposition: Home03/15/2025 3:30 PM EDTTelemedicine Maternal- Medicine at [place] [address] [place] [address] Rosy Arredondo PA-C Type 1 diabetes mellitus during in second trimester (Primary Dx) 03/15/2025Telephone Maternal- Medicine at [address] [address] Debby Garcia RN 03/15/20254867Zwykwe53/06/2025Orders Only Maternal- Medicine at [address] [address] Debby Garcia RN 03/09/2025Orders Only Maternal- Medicine at [address] [address] Yahaira Miller MD 03/09/2025Orders Only Maternal- Medicine at [address] [address] Yue Bullock RN 03/09/2025Remote Patient Monitoring Maternal- Medicine at [address] [address] Yahaira Miller MD Pre-existing type 1 diabetes mellitus with hyperglycemia during in second trimester ([facility]) (Primary Dx)03/08/2025Orders Only Maternal- Medicine at [facility] [address] [place] [address] Clarita Mchugh, GINGER FARMER from Last 3 Months Immunizations ImmunizationAdministration DatesNext [...] (1 standard drink = 0.6 oz pure alcohol)LikeIt.comFestEvo UtilitiesAnswerDate RecordedIn the past 12 months has the [employer], gas, oil, or water [employer] threatened to shut off services in your [...] care, and heating?Not hard at all02/17/2025PHQ-2AnswerDate RecordedTotal Ftwem73206/12/2023[facility] [place] of Occupational Health - Occupational Stress QuestionnaireAnswerDate [...] a household?No02/17/2025hildcareAnswerDate RecordedDo problems getting child welfare specialist make it difficult for you to [...] and direction in my life.Agree02/17/2025Estimated Date of JqukiumsSzkpdotwEwd55/27/2026ased on last menstrual period of 10/30/2024Sex and Gender InformationValueDate RecordedSex Assigned at HzkruOukcrk33/22/2025 1:51 AM EDTLegal SexFemale 01/13/2015 11:58 AM EDTGender LdiljhocLwcrkg36/22/2025 1:51 AM EDTSexual OrientationNot on file Last Filed Vital Signs Vital SignReadingTime TakenCommentsBlood Nmylrfoh055/6004/22/2025 8:44 AM EST Kodfk939704/22/2025 8:44 AM MENUlblmcbyayu12.7 ??C (98.1 ??F)04/22/2025 8:44 AM ESTRespiratory Xmtj387306/22/2024 8:44 AM ESTOxygen Epmlxolefj58%04/21/2025 7:24 PM ESTInhaled Oxygen Concentration--Cvqwyn63.1 kg (161 lb 2.5 oz)04/20/2025 12:30 PM BTWFvtekr640.3 cm (4' 9.99 )02/17/2025 6:00 PM EDTBody Mass Index33.69 02/17/2025 6:00 PM EDT Plan of Treatment DateTypeDepartmentCare Team (Latest Contact Info)Smputnpdfit65/02/2026 3:30 PM ESTAppointment [facility] US Imaging [address] [place] [address] Health MaintenanceDue DateLast DoneCommentsDiabetic Ophthalmology Exam2001 Diabetic Foot Exam2019Chlamydia Obpwjhhol022Adult BMI Follow Up Plan/epression Ekmonomom684COVID- 19 Vaccine ( season)/11/2021, 03/21/2021, 1RSV ( or age 60+ yrs) (1 - Risk 1-dose series)6Adult BMI Vpktaubtq86/04/2025Tobacco Itimcmlwi36/Pap Smear 809/02/2025, 2DTaP,Tdap and Td Vaccines (8 - Td or Tdap) /, 03/02/2013, 03/18/2008, Additional history existsInfluenza EfpwxttRfbqkorab19/08/2025, 03/18/2024, 06/12/2023, Additional history exists Medical Devices ImplantedTypeAreaManufacturerDevice IdentifierShelf Expiration DateModel / Serial / LotNexplanonDescription: control implant in right upper arm Procedures Procedure NamePriorityDate/TimeAssociated DiagnosisCommentsUS [facility] FOLLOW[facility], 1 NHSLKEdconqd98/04/2025 9:12 AM EST Type 1 diabetes mellitus during in second trimester EXTRA TUBES SST HDMQoiovxq15/13/2025 9:13 AM EST EXTRA TUBES LAVENDER BCNKqrfigh29/13/2025 9:13 AM EST EXTRA TUBES PST ESDOziykfv76/13/2025 9:13 AM EST EXTRA PETJZEbkbbrf65/13/2025 9:13 AM EST BEDSIDE NFPOIGYPegphsa53/12/2025 7:17 PM EST BEDSIDE TKGVCXBIiegiym21/12/2025 3:56 PM EST BEDSIDE PXZSCNSJaenbbw11/12/2025 3:41 PM EST BEDSIDE OILQBWAAsopzfq04/12/2025 6:13 AM EST BEDSIDE UZTYOIXQsssznq31/11/2025 7:37 PM EST BEDSIDE VXCUDYPStlxgpr62/11/2025 7:18 PM EST REPEATED CNRQKLowmzmv50/11/2025 1:14 PM EST T4, FREEAdd-On04/20/2025 1:14 PM EST TSHAdd-On04/20/2025 1:14 PM EST ACETONE,(BETAHYDROXYBUTYRATE, KETONE) QUANTITATIVE ANZGJRxnrtfk13/11/2025 1:14 PM EST CBC WITH AUTO BLUQVKXRYSNEToaofpk38/11/2025 1:14 PM EST COMPREHENSIVE METABOLIC IAYZXNaveskg75/11/2025 1:14 PM EST ECHO COMPLETE WO ZUINXDRUGsqlnfm77/07/2025 2:29 PM EST Type 1 diabetes mellitus complicating in second trimester, antepartum [facility] OB FOLLOW-UP, 1 YUTJLNiydcts22/05/2025 9:34 AM EST Encounter for other screening follow-up ALPHA MHJNRIELZNRBjzpdeb38/30/2025 10:01 AM EDT Encounter for supervision of normal , unspecified, second trimester B-TYPE NATRIURETIC FNOAYISNsuwody62/30/2025 10:01 AM EDT Type 1 diabetes mellitus during in second trimester EXTRA TUBES LAVENDER GBUHsjvdlz46/30/2025 9:56 AM EDT Encounter for supervision of normal , unspecified, second trimester Uncontrolled type 1 diabetes mellitus with hyperglycemia, with long-term current use of insulin [place] Type 1 diabetes mellitus during in second trimester EXTRA SFTRDQmninuz42/30/2025 9:56 AM EDT Encounter for supervision of normal , unspecified, second trimester Uncontrolled type 1 diabetes mellitus with hyperglycemia, with long-term current use of insulin [place] Type 1 diabetes mellitus during in second trimester HEMOGLOBIN T6HDzuwfns22/30/2025 9:56 AM EDT Uncontrolled type 1 diabetes mellitus with hyperglycemia, with long-term current use of insulin ([facility] [facility] COMPREHENSIVE ANATOMIC IWLONUAadymlz84/07/2025 9:52 AM EDT Type 1 diabetes mellitus during in first trimester PAP KUKLCNxnqjzb63/24/2022 10:35 AM EDT Cervical smear, as part of routine gynecological examination CHLAMYDIA/GC BY PCR OMAIRA XUGLUpqdtua57/11/2022 6:33 PM EDT Menorrhagia with irregular cycle Metrorrhagia DUB (dysfunctional uterine bleeding) from Last 3 Months or Most Recently Relevant to Health Maintenance Results * US [facility] OB FOLLOW-UP, 1 FETUS (05/13/2025 9:12 AM EST) Only the most recent of3 resultswithin the time period is included. Anatomical RegionLateralityModalityOB-GYNUltrasoundSpecimen (Source)Anatomical Location / LateralityCollection Method / VolumeCollection TimeReceived Time 05/13/2025 8:44 AM EST Narrative 05/13/2025 10:52 AM EST NAME: ??DARREN ART : 2000 SEX: F Accession Number: [id number] ORDERING PHYSICIAN: IVORY QUINONES REFERRING PHYSICIAN: BRYANT PULLIAM Coding Procedures ? 30726: Ultrasound, uterus, real time with image documentation, [...] (oz) ? 10 oz EFW by: ?Hadlock (PUL-XY-JI-FL) Extended Tibia ??45.1 mm 27w 4d 40% Randolph Bus Cleaner ? 2.4 mm CM ? 6.4 mm [...] MVP measures 4.6 cm. Recommendations Please see [facility] recommendations from prior clinical and/or ultrasound [...] ART : 2000 SEX: F Accession Number: [id number] ORDERING PHYSICIAN: IVORY QUINONES REFERRING PHYSICIAN: BRYANT PULLIAM Coding Procedures 26124: Ultrasound, uterus, real time with image documentation, [...] EFW (oz) 10 oz EFW by: Hadlock (BPH-SU-ZR-FL) Extended Tibia 45.1 mm 27w 4d 40% Randolph Bus Cleaner 2.4 mm CM 6.4 mm 42% Nicolaides [...] MVP measures 4.6 cm. Recommendations Please see [facility] recommendations from prior clinical and/or ultrasoundreport documentation. The patient is scheduled in four weeks for follow up growth ultrasound. Subsequent follow up or other follow up as clinically determined byprimary OB provider unless otherwise specified by [facility]. Results forwarded to ordering provider so they can follow up with thepatient as necessary. Authorizing ProviderResult TypeResult StatusIvory AMES ORDERABLESFinal Result * SST TOP (04/22/2025 9:13 AM EST)ComponentValueRef RangeTest MethodAnalysis TimePerformed AtPathologist SignatureExtra TubeAuto Zgefevac19/13/2025 11:01 AM ESTOHIO[facility] LABORATORYSpecimen (Source)Anatomical Location / LateralityCollection Method / VolumeCollection TimeReceived TimeBloodVenous blood / Repzemb3904/22/2025 9:13 AM EST04/22/2025 10:09 AM EST Narrative Authorizing ProviderResult TypeResult StatusCriselda Green DOLAB BLOOD ORDERABLESFinal ResultPerforming OrganizationAddressCity/State/ZIP CodePhone Number [facility] [address] [place] [address], [place] [phone] * Lavender Top (04/22/2025 9:13 AM EST) Only the most recent of2 resultswithin the time period is included. ComponentValueRef RangeTest MethodAnalysis TimePerformed AtPathologist Signature Extra TubeAuto Tbljstza75/13/2025 11:01 AM [facility] LABORATORYSpecimen (Source)Anatomical Location / LateralityCollection Method / VolumeCollection TimeReceived TimeBloodVenous blood / Hsgiphj6504/22/2025 9:13 AM EST04/22/2025 10:09 AM EST Narrative Authorizing ProviderResult TypeResult StatusProv[facility] BLOOD ORDERABLESFinal ResultPerforming OrganizationAddressCity/State/ZIP CodePhone Number [facility] [address] [place] [address], * PST TOP (04/22/2025 9:13 AM EST)ComponentValueRef RangeTest MethodAnalysis TimePerformed AtPathologist SignatureExtra TubeAut Eoalydcb05/13/2025 11:01 AM [facility] LABORATORYSpecimen (Source)Anatomical Location / LateralityCollection Method / VolumeCollection TimeReceived TimeBloodVenous blood / Tgheilx7704/22/2025 9:13 AM EST04/22/2025 10:09 AM EST Narrative Authorizing ProviderResult TypeResult StatusProvidence [facility] BLOOD ORDERABLESFinal ResultPerforming OrganizationAddressCity/State/ZIP CodePhone Number [facility] [address] [place] [address], * (ABNORMAL) Bedside Glucose *Place/Obtain serum glucose if >500 per glucometer. (04/21/2025 7:17 PM EST) Only the most recent of6 resultswithin the time period is included. ComponentValueRef RangeTest MethodAnalysis TimePerformed AtPathologist Signature Bedside Glucose (POC)152(H)65 - 99 mg/dL04/21/2025 7:[address] [facility] LABORATORYSpecimen (Source)Anatomical Location / LateralityCollection Method / VolumeCollection TimeReceived Timearterial/sgygcbvxf43/12/2025 7:17 PM EST 04/21/2025 7:22 PM EST Narrative Authorizing ProviderResult TypeResult StatusCriselda Green DOPOINT OF CARE TEST ORDERABLESFinal ResultPerforming OrganizationAddressty/State/ZIP CodePhone Number [facility] [address] [place] [address], [place] * ABO Rh Repeat (04/20/2025 1:14 PM EST)ComponentValueRef RangeTest Method Analysis TimePerformed AtPathologist LwfbcwtikXDQI55/13/2025 10:32 AM ESTTTH BB - GIBYXWAXYQjtsmywb70/13/2025 10:32 AM ESTTTH BB - WELLSKYSpecimen (Source) Anatomical Location / LateralityCollection Method / VolumeCollection Time Received TimeBloodVenous blood / UnknownVenipuncture / Rvznldp1504/20/2025 1:14 PM EST04/20/2025 1:33 PM EST Narrative Authorizing ProviderResult TypeResult StatusIsajulian Leary MDBLOOD BANK TEST ORDERABLESFinal ResultPerforming OrganizationAddressty/State/[facility] CodePhone Number [facility] [address] [place] [address], [place] * (ABNORMAL) CBC auto differential (04/20/2025 1:14 PM EST)ComponentValueRef RangeTest MethodAnalysis TimePerformed AtPathologist WeewhedfeDJW16.7(H)4 - 11 X10^9/L106/20/2024 1:50 PM [facility] LABORATORYRBC Count3.72 (L)3.8 - 5.2 X10^12/L106/20/2024 1:50 PM [facility] Szhqzcyvko39.3(L)11.7 - 15.5 g/dL04/20/2025 1:50 PM [facility] ATJGPOSYTQQeukmjqijh38.7(L)35 - 47 %04/20/2025 1:50 PM [facility] TFVCOHJZSJAGU0775 - 100 fL04/20/2025 1:50 PM [facility] GKRUONTKPVLHF10.327 - 34 pg04/20/2025 1:50 PM [facility] ZADVKNOYQHWQFS09.532 - 36 g/dL04/20/2025 1:50 PM [facility] MWJWXJBNYZTFP02.511.5 - 15 %04/20/2025 1:50 PM [facility] LABORATORYPlatelet Adcjg687067 - 450 X10^9/L106/20/2024 1:50 PM [facility] LABORATORYMPV8.97 - 12 fL04/20/2025 1:50 PM [facility] LABOR[facility]ORYNeutrophils %80.6%04/20/2025 1:50 PM [facility] LABORATORYLymphocytes %12.7%04/20/2025 1:50 PM [facility] LABOR[facility]ORYMonocytes %5.6%04/20/2025 1:50 PM [facility] LABORATORYEosinophils %0.7%04/20/2025 1:50 PM [facility] LABORATORYBasophils %0.4%04/20/2025 1:50 PM [facility] LABORATORYNeutrophils Absolute (A)10.2(H)1.5 - 6.6 X10^9/L 04/20/2025 1:50 PM [facility] LABORATORYLymphocytes Absolute 1.61.0 - 3.5 X10^9/L106/20/2024 1:50 PM [facility] Monocytes Absolute0.70.0 - 0.9 X10^9/L106/20/2024 1:50 PM [facility] LABORATORYEosinophils Absolute0.10.0 - 0.4 X10^9/L106/20/2024 1:50 PM [facility] LABORATORYBasophils Absolute0.10.0 - 0.2 X10^9/L 04/20/2025 1:50 PM [facility] LABORATORYDifferential Type AUTOMATED ZDGCVPVZUHLV83/11/2025 1:50 PM [facility] LABORATORYSpecimen (Source)Anatomical Location / LateralityCollection Method / VolumeCollection TimeReceived TimeBloodVenous blood / UnknownVenipuncture / Dndupst5104/20/2025 1:14 PM EST04/20/2025 1:33 PM EST Narrative Authorizing ProviderResult TypeResult StatusCristofer PAIGE BLOOD ORDERABLESFinal ResultPerforming OrganizationAddressCity/State/ZIP CodePhone Number [facility] [address] [place] [address], * Acetone, (BetaHydroxybutyrate, Ketone) quantitative, serum (04/20/2025 1:14 PM EST)ComponentValueRef RangeTest MethodAnalysis TimePerformed AtPathologist SignatureBETAHYDROXYBUTYRATE0.100.02 - 0.27 mmol/L106/20/2024 2:15 PM [facility] LABORATORYSpecimen (Source)Anatomical Location / Laterality Collection Method / VolumeCollection TimeReceived TimeBloodVenous blood / UnknownVenipuncture / Dwvolhp6804/20/2025 1:14 PM EST04/20/2025 1:32 PM EST Narrative Authorizing ProviderResult TypeResult StatusCristofer Leary MDLAB BLOOD ORDERABLESFinal ResultPerforming OrganizationAddressCity/State/ZIP CodePhone Number [facility] [address] [place] [address], [place] [phone] * TSH (04/20/2025 1:14 PM EST)ComponentValueRef RangeTest MethodAnalysis Time Performed AtPathologist SignatureTSH0.750.49 - 4.67 uIU/mL04/21/2025 9:43 AM [facility] LABORATORYSpecimen (Source)Anatomical Location / LateralityCollection Method / VolumeCollection TimeReceived TimeBloodVenous blood / UnknownVenipuncture / Raylpmi8004/20/2025 1:14 PM EST04/20/2025 1:32 PM EST Narrative Authorizing ProviderResult TypeResult StatusrCistofer PAIGE BLOOD ORDERABLESFinal ResultPerforming OrganizationAddressCity/State/ZIP CodePhone Number [facility] [address] [place] [address], [place] [phone] * T4, free (04/20/2025 1:14 PM EST)ComponentValueRef RangeTest MethodAnalysis TimePerformed AtPathologist SignatureFREE T40.640.61 - 1.60 ng/dL04/21/2025 9:48 AM [facility] LABORATORYSpecimen (Source)Anatomical Location / LateralityCollection Method / VolumeCollection TimeReceived Time BloodVenous blood / UnknownVenipuncture / Ikwanjk3204/20/2025 1:14 PM EST 04/20/2025 1:32 PM EST Narrative Authorizing ProviderResult TypeResult StatusIsaac Sapphire PAIGE BLOOD ORDERABLESFinal ResultPerforming OrganizationAddressCity/State/ZIP CodePhone Number [facility] [address] [place] [phone], * (ABNORMAL) Comprehensive metabolic panel (04/20/2025 1:14 PM EST)Component ValueRef RangeTest MethodAnalysis TimePerformed AtPathologist SignatureSODIUM 944425 - 146 mmol/L106/20/2024 2:15 PM [facility] POTASSIUM3.93.5 - 5.0 mmol/L106/20/2024 2:15 PM [facility] TBHWRVJSQKBFQOKXSF39542 - 109 mmol/L106/20/2024 2:15 PM [facility] LABORATORYCARBON BAEFVVL8334 - 32 mmol/L106/20/2024 2:15 PM [facility] LABORATORYANION GAP75 - 15 mmol/L106/20/2024 2:15 PM [facility]ORYBLOOD UREA BOKLGZPK28 - 23 mg/dL04/20/2025 2:15 PM [facility] LABORATORYCREATININE0.620.40 - 1.00 mg/dL 04/20/2025 2:15 PM [facility]ORATORYComment:METHOD TRACEABLE TO IDMS NBGCUEPHBNKNWWW215(H)65 - 99 mg/dL04/20/2025 2:15 PM [facility]ATORYCALCIUM8.58.5 - 10.5 mg/dL04/20/2025 2:15 PM [facility]ORATORYTOTAL PROTEIN6.16.0 - 8.0 g/dL 04/20/2025 2:15 PM [facility] LABORATORYALBUMIN3.1(L)3.2 - 5.3 g/dL04/20/2025 2:15 PM [facility] LABORATORYALKALINE NKNUBSUQVTU7779 - 130 U/L106/20/2024 2:15 PM [facility] DFBFJQAKFERCO08<=41 U/L106/20/2024 2:15 PM [facility] XTYQQRNOZIQKV85(H)<=31 U/L106/20/2024 2:15 PM [facility] LABORATORYBILIRUBIN,TOTAL0.2(L)0.3 - 1.2 mg/dL04/20/2025 2:15 PM [facility]ORYEGFR Non-Race Dependent>90>=60 ml/min/1.73sq.m 04/20/2025 2:15 PM [facility]ORATORYComment: Reported eGFR is based on the CKD-EPI 2020 equation that does not use a race coefficient. Specimen (Source)Anatomical Location / LateralityCollection Method / Volume Collection TimeReceived TimeBloodVenous blood / UnknownVenipuncture / Unknown 04/20/2025 1:14 PM EST04/20/2025 1:32 PM EST Narrative Authorizing ProviderResult TypeResult StatusIsaac Sapphire PAIGE BLOOD ORDERABLESFinal ResultPerforming OrganizationAddressCity/State/ZIP CodePhone Number [facility] [address] [place] [address], * Echo complete W/O contrast (04/16/2025 2:29 PM EST)ComponentValueRef RangeTest MethodAnalysis TimePerformed AtPathologist SignatureLVOT stroke hybhpf52.88ml LLYDYJSFQ2198 - 44 %XCELERALVIDd4.64vnGWOZHJJKNNPy7.96moGKTPQVCGFS1.900.6 - 1.1 cmXCELERAPW0.900.6 - 1.1 cmXCELERALVOT diameter1.69efSNNNUEOGQP53.20cm/s XCELERAMV TDI E' (medial)8.27cm/sXCELERALA Volume Index13.7mL/n8QKCSQPBZ/A ratio1.32XCELERAE wave deceleration hvos590.00msecXCELERAMV Peak E Yqb439.00 cm/sXCELERAMV Peak A Vel78.60cm/sXCELERALA size3.20cmXCELERAAortic root2.50cm XCELERALA ambwcr30.78hh7YQKDSKXXV diastolic dimension (basal)27.0mmXCELERARVID d2.4msXLFEEDGULGVQ9.38cmXCELERAAV peak kan337.00cm/sXCELERALVOT peak vel1.16 m/sXCELERAAV VTI39.00cmXCELERALVOT peak VTI26.30cmXCELERAAV mean gradient8.00 mmHgXCELERAAV peak yxjmbwdt95.75mmHgXCELERAAV valve area1.36XCELERAValve area - Index0.8XCELERAMV pressure 1/2 time53.00msXCELERAMV valve area p 1/2 method 4.66ni4RXOSCIVSV mean gradient3.00mmHgXCELERAPV peak gradient4.84mmHgXCELERALV ESV A2C20.70mLXCELERALV ESV A4C22.20mLXCELERALV RWT 2D45.00XCELERAAV Velocity Ratio0.67XCELERALeft Ventricle Efmp498.617357095718309tDQVDQRM Interventricular Septum Diastolic Thickness by 2C7yuXQBWHISNce. RA pressure3 mmHgXCELERARA area9.2vj1UEIZYYLJlqtwgefrj RegionLateralityModalityChestN/A UltrasoundSpecimen (Source)Anatomical Location / LateralityCollection Method [...] normal. Authorizing ProviderResult TypeResult StatusOxanrosanna Esteban [facility] ECHO ORDERABLESFinal Result * (ABNORMAL) Alpha fetoprotein (04/08/2025 10:01 AM EDT)ComponentValueRef Range Test MethodAnalysis TimePerformed AtPathologist SignatureALPHA BSDZIJPPKBC54.3 (H)<=9.9 ng/mL04/08/2025 1:25 PM [facility] Specimen (Source)Anatomical Location / LateralityCollection Method / Volume Collection TimeReceived TimeBloodVenous blood / UnknownVenipuncture / Unknown 04/08/2025 10:01 AM EDT1 10:01 AM EDT Narrative Authorizing ProviderResult TypeResult StatusAmy L Maria G PALAB BLOOD ORDERABLES Final ResultPerforming OrganizationAddressCity/State/ZIP CodePhone Number [facility] [address] [place] [address], * B-type natriuretic peptide (04/08/2025 10:01 AM EDT)ComponentValueRef Range Test MethodAnalysis TimePerformed AtPathologist WdwiyyqgfZYM81<=100 pg/mL 04/08/2025 11:24 AM [facility]TPREG[facility] EASTpecimen (Source) Anatomical Location / LateralityCollection Method / VolumeCollection Time Received TimeBloodVenous blood / UnknownVenipuncture / Eiuymsy1004/08/2025 10:01 AM EDT1 10:01 AM EDT Narrative Authorizing ProviderResult TypeResult StatusColleen E Arnulfo PA-CLAB BLOOD ORDERABLESFinal ResultPerforming OrganizationAddressCity/State/ZIP CodePhone Number [facility] [address] [place] [address], * Hemoglobin A1c (04/08/2025 9:56 AM EDT)ComponentValueRef RangeTest Method Analysis TimePerformed AtPathologist SignatureHEMOGLOBIN A1C5.14.4 - 5.6 % 04/08/2025 1:25 PM [facility]ORATORYComment: ?ADA Guidelines ?Result ?HgbA1c ? Normal : ? less than 5.7 % ? Prediabetes : ?5.7 % ??to 6.4 % Diabetes : > 6.4 % ?Use with caution in patients with abnormal hemoglobin variants as ??the half-life of red blood cells and in vivo glycation rates are ??affected. EST. AVERAGE TAKBBCC517vk/dL04/08/2025 1:25 PM [facility] LABORATORYSpecimen (Source)Anatomical Location / LateralityCollection Method / VolumeCollection TimeReceived TimeBloodVenous blood / Tglqbgc5904/08/2025 9:56 AM EDT1 10:14 AM EDT Narrative Authorizing ProviderResult TypeResult StatusCarin Mathur PHILLIPLAB BLOOD ORDERABLESFinal ResultPerforming OrganizationAddressCity/State/ZIP CodePhone Number [facility] [address] [place] [address], * Pap Smear (04/02/2022 10:35 AM EDT)Specimen (Source)Anatomical Location / LateralityCollection Method / VolumeCollection TimeReceived Time04/02/2022 10:35 AM EDT1 10:37 AM EDT Narrative COPATH - 04/12/2022 12:17 PM EDT [facility] ? [address] [place] [address] ? [place], [place] [address] ? Gynecologic Cytology Consultation ? Patient Name:DALIA BANKS:2000 (Age: 22)Gender:FTaken:04/02/2022eported:04/12/2022hysician(s):PHILLIP Pink ([phone])Copy To: Rec. #:[id number]: #[id number] Final Cytologic Interpretation ThinPrep Pap Test (Cervical): Satisfactory for evaluation. A transformation zone component is present. NEGATIVE FOR INTRAEPITHELIAL LESION OR MALIGNANCY. ?? jja/04/12/2022 Interpretation performed at [email or web address], [address] [place] [address], License number: [id number]. Electronically Signed Out By ?JORGE Olson(ASCP) Date of Last Menstrual Period: ? 02/28/22 Other Clinical Conditions: Z01.419 Senior Oracle Database Developer exam wo/abn findings Source of Specimen ??ThinPrep Pap Test (Cervical) ? Thin Prep Pap ([employer]) Fee Code(s): ?? G0145 Authorizing ProviderResult TypeResult StatusCayla Olivas MEDICAL BILLER CODER-CONFIGURATION MANAGER PATHOLOGY/CYTOLOGY ORDERABLESFinal ResultPerforming OrganizationAddress City/State/ZIP CodePhone Number [facility] * Chlamydia/GC by PCR Omaira Swab (03/20/2022 6:33 PM EDT)ComponentValueRef Range Test MethodAnalysis TimePerformed AtPathologist SignatureSpecimen sourceCERVIX 03/20/2022 9:54 PM [facility] LABComment:Corrected on 03/20 AT 2154: Previously reported as SWABChlamydia DNA PCRNegativeNegative^Negative 03/21/2022 12:54 PM [facility] LABComment: ? Chlamydia trachomatis not detected by nucleic acid amplification. This does not exclude the possibility of infection because results are dependent on adequate specimen collection. ? Gonorrhea DNA PCRNegativeNegative^Dkrftyym56/12/2022 12:54 PM [facility] LABComment: ? Neisseria gonorrhoeae not detected by nucleic acid amplification. This does not exclude the possibility of infection because results are dependent on adequate specimen collection. ? Specimen (Source)Anatomical Location / LateralityCollection Method / Volume Collection TimeReceived OxveCPVY75/11/2022 6:33 PM EDT1 9:50 PM EDT Narrative Authorizing ProviderResult TypeResult StatusComelissa Seaman MDMICROBIOLOGY - GENERAL ORDERABLESEdited Result - FinalPerforming OrganizationAddress City/State/ZIP CodePhone Number [facility] [address] [place] [address] from Last 3 Months or Most Recently Relevant to Health Maintenance Insurance Advance Directives * Full Code (Latest Code Status on File) Date ActivatedDate InactivatedComments02/17/2025 6:35 PM02/22/2025 6:48 PM * Full Code Date ActivatedDate XrgcrakptlmZrhvdpfe07/27/2021 4:55 PM06/08/2021 4:33 PM * Full Code Date ActivatedDate InactivatedComments01/07/2018 6:44 AM01/07/2018 2:17 PM * Full Code Date ActivatedDate InactivatedComments10/23/2016 11:27 AM10/24/2016 12:42 PM * Full Code Date ActivatedDate InactivatedComments08/01/2016 12:52 AM08/01/2016 4:47 PM Care Teams Team MemberRelationshipSpecialtyStart DateEnd Date Dru Rodriguez DO [address] [place] [address] [facility]01/01/17
--- OUTSIDE RECORDS SUMMARY | 2025-06-04 18:51 | XMS_ITS | Encounter Summary ---
Author Organization [facility] tem Address [facility] [address] [place] [address] Care Team Providers Care Service Station Cashier Name Role Phone JenniferDru April MUNGUIA Primary Care Provider [phone]- [phone] Encounter Details DateTypeDepartmentCare Team (Latest Contact Info)Yyreatcnswy32/23/2025Telephone Maternal- Medicine at [facility] [address] [place] [phone] Odilia Dumas RN [address] [address] Social History Tobacco UseTypesPacks/DayYears UsedDateSmoking Tobacco: NeverSmokeless Tobacco: NeverAlcohol UseStandard Drinks/WeekCommentsYes0 (1 standard drink = 0.6 oz pure alcohol)[facility] UtilitiesAnswerDate RecordedIn the past 12 months [...] care, and heating?Not hard at all02/17/2025PHQ-2AnswerDate RecordedTotal Syzza191Finlifepoint hospitals [place] of Occupational Health - Occupational Stress QuestionnaireAnswerDate [...] and direction in my life.Agree02/17/2025Estimated Date of SgsbqxljSfqcinhzCcj90/27/2026ased on last menstrual period of 10/30/2024Sex and Gender InformationValueDate RecordedSex Assigned at FfazpOgyfky37/22/2025 1:51 AM EDTLegal SexFemale 01/13/2015 11:58 AM EDTGender BbartcooSagndz66/22/2025 1:51 AM EDTSexual OrientationNot on filedocumented as of this encounter Miscellaneous Notes * Telephone Encounter - Odilia Dumas RN - 06/01/2025 2:38 PM ESTSummary: [facility] [employer] Reports & [...] office to schedule an appointment with an [facility] provider. [email or web address] message also sent. documented in this encounter Plan of Treatment DateTypeDepartmentCare Team (Latest Contact Info)Vrxlpxghehq13/02/2026 3:30 PM ESTAppointment [facility] US Imaging [address] [place] [address] documented as of this encounter Visit Diagnoses Diagnosis Uncontrolled type 1 diabetes mellitus with hyperglycemia, with long-term current use of insulin ([facility]) documented in this encounter Additional Health Concerns AssessmentNoted TimePHQ-9 Depression Total Score: 8:31 AM ESTA Body Mass Index follow-up plan has been documented for the uzgpdoy5006/12/2023 4:35 PM ESTdocumented as of this encounter Care Teams Team MemberRelationshipSpecialtyStart DateEnd Date Dru Rodriguez DO [address] [place] [phone] PCP - General01/01/17documented as of this encounter
--- OUTSIDE RECORDS SUMMARY | 2025-06-04 18:51 | XMS_ITS | Encounter Summary ---
Author Organization [facility] Address [address] [place] [address] Care Team Providers Care Health Promotion Manager Name Role Phone Dru Rodriguez DO Primary Care Provider [phone]- [phone] Dru Rodriguez DO Unavailable [phone] Encounter Details DateTypeDepartmentCare Team (Latest Contact Info)Civsrukdejc90/22/2025Abstract [facility] [address] [place] [phone] Dru Rodriguez, DO [address] [place] [address] Social History Tobacco UseTypesPacks/DayYears UsedDateSmoking Tobacco: NeverSmokeless [...] relatives?Twice a week03/11/2023How often do you attend druze or sabianist services?1 to 4 times per year03/11/2023o you belong to any clubs or organizations such as druze groups, unions, fraternal or athletic laura ups, or school groups?No03/11/2023How often do you attend meetings of the clubs or organizations you belong to?Never03/11/2023re you , , , , never , or living with a partner?Bmpnuha9803/11/2023 AUDIT-CAnswerDate RecordedQ1: How often do you have a drink containing alcohol? Monthly or less03/11/2023Q2: How many drinks containing alcohol do you have on a typical day when you are drinking?3 or Q3: How often do you have six or more drinks on one occasion?Less than qdjphgo0103/11/2023Overall Financial Resource Strain (CARDIA)AnswerDate RecordedHow hard is it for you to pay for the very basics like food, housing, medical care, and heating?Somewhat hard 03/11/2023HQ-2AnswerDate RecordedPatient Health Questionnaire-2 Score0 03/25/2025Finlifepoint hospitals [place] of Occupational Health - Occupational Stress QuestionnaireAnswerDate [...] slept in ashelter (including now)?No03/11/2023Estimated Date of NwnfqredFvevwgwzYwa04/27/2026Based on last menstrual period of 10/30/2024Sex and Gender InformationValueDate RecordedSex Assigned at UxkujIhurun72/01/2023 1:10 PM EDTLegal UgzXqjjus80/15/2023 6:51 PM EDTGender SozlhhxhNytmug51/01/2023 1:10 PM EDTSexual CyjxjkusofsIlxukbju87/01/2023 1:10 PM EDTdocumented as of this encounter Plan of Treatment DateTypeDepartmentCare Team (Latest Contact Info)Afwkmezyazf64/07/2026 4:00 PM ESTRoutine [facility] Issac PORTILLO [address] [place] [address] Dixie Gan, SHAWN [address] [place] [address] 06/30/2025 3:50 PM ESTRoutine NOMAislinn PORTILLO [address] [place] [address] Kolton Cao, [address] [place] [address] documented as of this encounter Goals GoalPatient Goal TypeAssociated ProblemsRecent ProgressPatient-Stated?Author Reminders Care PlanOB RemindersNoOpen Scheduling, Backgrounddocumented as of this encounter Visit Diagnoses Not on filedocumented in this encounter Additional Health Concerns Active ProblemsNoted DateDiagnosed DateOB Bxguvnnqa81/24/2025 documented as of this encounter Care Teams Team MemberRelationshipSpecialtyStart DateEnd Date Dru Rodriguez DO [address] [place] [address] PCP - GeneralFamily Medicine10/22/22 Dru Rodriguez DO [address] [place] [address] PCP - Medical Mermentau Doyqkdtjre52/1/2312documented as of this encounter
--- OUTSIDE RECORDS SUMMARY | 2025-06-04 18:51 | XMS_ITS | Encounter Summary ---
Author Organization [facility] tem Address [facility] [address] [place] [address] Care Team Providers Care Monogram Machine Operator Name Role Phone JenniferDru April MUNGUIA Primary Care Provider [phone]- [phone] Encounter Details DateTypeDepartmentCare Team (Latest Contact Info)Dzqjihyknrd80/17/2025Telephone Maternal- Medicine at [facility] [address] [facility] [place] [phone] Yue Bullock RN Social History Tobacco UseTypesPacks/DayYears UsedDateSmoking Tobacco: NeverSmokeless Tobacco: NeverAlcohol UseStandard Drinks/WeekCommentsYes0 (1 standard drink = 0.6 oz pure alcohol)[facility] UtilitiesAnswerDate RecordedIn the past 12 months has the [employer], gas, oil, or water [employer] threatened to shut off services in your [...] care, and heating?Not hard at all02/17/2025PHQ-2AnswerDate RecordedTotal Qgmuf431Finlone [facility] [place] of Occupational Health - Occupational Stress [...] and direction in my life.Agree02/17/2025Estimated Date of FmgyvfcuOofjxnigUab03/27/2026Based on last menstrual period of 10/30/2024Sex and Gender InformationValueDate RecordedSex Assigned at HrtszSbaorz68/22/2025 1:51 AM EDTLegal SexFemale 01/13/2015 11:58 AM EDTGender SkrhiuifQujlrf22/22/2025 1:51 AM EDTSexual OrientationNot on filedocumented as [...] Plan of Treatment DateTypeDepartmentCare Team (Latest Contact Info)Iofisshjbys00/02/2026 3:30 PM ESTAppointment [facility] US Imaging [address] [place] [address] documented as of this encounter Visit Diagnoses Diagnosis Uncontrolled type 1 diabetes mellitus with hyperglycemia, with long-term current use of insulin ([facility]) documented in this encounter Additional Health Concerns AssessmentNoted TimePHQ-9 Depression Total Score: 8:31 AM ESTA Body Mass Index follow-up plan has been documented for the fkqlkvp4006/12/2023 4:35 PM ESTdocumented as of this encounter Care Teams Team MemberRelationshipSpecialtyStart DateEnd Date Dru Rodriguez DO [address] [place] [address] PCP - General01/01/17documented as of this encounter
--- OUTSIDE RECORDS SUMMARY | 2025-06-04 18:51 | XMS_ITS | Encounter Summary ---
Author Organization [facility] tem Address [facility] [address] [place] [address] Care Team Providers Care Reception Agent Name Role Phone JenniferDru April MUNGUIA Primary Care Provider [phone]- [phone] Encounter Details DateTypeDepartmentCare Team (Latest Contact Info)Tppgnpdyupg04/19/2025Orders Only Maternal- Medicine at [facility] [address] [place] [phone] Odilia Dumas RN [address] [address] Social History Tobacco UseTypesPacks/DayYears UsedDateSmoking Tobacco: NeverSmokeless [...] care, and heating?Not hard at all02/17/2025PHQ-2AnswerDate RecordedTotal Fdzzh03506/12/2023[facility] [place] of Occupational Health - Occupational Stress QuestionnaireAnswerDate [...] of a household?No02/17/2025hildcareAnswerDate RecordedDo problems getting children's book author make it difficult for you to work [...] and direction in my life.Agree02/17/2025Estimated Date of BmijbqtgXokqwoavIch08/27/2026Based on last menstrual period of 10/30/2024Sex and Gender InformationValueDate RecordedSex Assigned at RiodhUkeqer69/22/2025 1:51 AM EDTLegal SexFemale 01/13/2015 11:58 AM EDTGender YfkmhcsaGufmtj02/22/2025 1:51 AM EDTSexual OrientationNot on filedocumented as of this encounter Plan of Treatment DateTypeDepartmentCare Team (Latest Contact Info)Gyjeqfpffvc36/02/2026 3:30 PM ESTAppointment [facility] US Imaging [address] [place] [address] documented as of this encounter Visit Diagnoses Not on filedocumented in this encounter Additional Health Concerns AssessmentNoted TimePHQ-9 Depression Total Score: 8:31 AM ESTA Body Mass Index follow-up plan has been documented for the ysaeayh0606/12/2023 4:35 PM ESTdocumented as of this encounter Care Teams Team MemberRelationshipSpecialtyStart DateEnd Date Dru Rodriguez DO [address] [place] [address] PCP - General01/01/17documented as of this encounter
--- OUTSIDE RECORDS SUMMARY | 2025-06-04 18:51 | XMS_ITS | Encounter Summary ---
Author Organization [facility] tem Address [facility] [address] [place] [address] Care Team Providers Care Industrial Gas Servicer Name Role Phone JenniferDru April MUNGUIA Primary Care Provider +1- [phone] Encounter Details DateTypeDepartmentCare Team (Latest Contact Info)Zokdxtlbdem12/19/2025Telephone Maternal- Medicine at [facility] [address] [place] [phone] Odilia Dumas RN [address] [address] Social History Tobacco UseTypesPacks/DayYears UsedDateSmoking Tobacco: NeverSmokeless [...] care, and heating?Not hard at all02/17/2025PHQ-2AnswerDate RecordedTotal Vnzdy809Fingarfield memorial hospital [employer] of Occupational Health - Occupational Stress QuestionnaireAnswerDate [...] a household?No02/17/2025hildcareAnswerDate RecordedDo problems getting child care group leader make it difficult for you to [...] and direction in my life.Agree02/17/2025Estimated Date of KdyvnykxWibgabhwVgo79/27/2026ased on last menstrual period of 10/30/2024Sex and Gender InformationValueDate RecordedSex Assigned at EqiyyGunzji09/22/2025 1:51 AM EDTLegal SexFemale 01/13/2015 11:58 AM EDTGender HvnolrhhTyxbnb04/22/2025 1:51 AM EDTSexual OrientationNot on filedocumented as of this encounter Miscellaneous Notes * Telephone Encounter - Odilia Dumas RN - 05/28/2025 10:34 AM ESTSummary: [facility] [employer] Called. No [...] Plan of Treatment DateTypeDepartmentCare Team (Latest Contact Info)Kyekwlyknut40/02/2026 3:30 PM ESTAppointment [facility] US Imaging [address] [place] [phone] documented as of this encounter Visit Diagnoses Diagnosis Uncontrolled type 1 diabetes mellitus with hyperglycemia, with long-term current use of insulin ([facility]) documented in this encounter Additional Health Concerns AssessmentNoted TimePHQ-9 Depression Total Score: 8:31 AM ESTA Body Mass Index follow-up plan has been documented for the wchqbvn9706/12/2023 4:35 PM ESTdocumented as of this encounter Care Teams Team MemberRelationshipSpecialtyStart DateEnd Date Dru Rodriguez DO [address] [place] [address] PCP - General01/01/17documented as of this encounter
--- OUTSIDE RECORDS SUMMARY | 2025-06-04 18:51 | XMS_ITS | Encounter Summary ---
Author Organization [facility] Address [address] [place] [address] Care Team Providers Care Twister Doffer Name Role Phone Dru Rodriguez DO Primary Care Provider [phone] Dru Rodriguez DO Unavailable [phone] Encounter Details DateTypeDepartmentCare Team (Latest Contact Info)Zrvlnnnreyn63/21/2025External Result Encounter [facility] External Department Unsolicited Kolton Cao DO [address] [place] [address] Social History Tobacco UseTypesPacks/DayYears UsedDateSmoking Tobacco: NeverSmokeless [...] week03/11/2023How often do you attend rastafari or latter day services?1 to 4 times per year03/11/2023o you belong to any clubs or organizations such as rastafari groups, unions, fraternal or athletic laura ups, or school groups?No03/11/2023How often do you attend meetings of the clubs or organizations you belong to?Never03/11/2023re you , , , , never , or living with a partner?Rqbqdcr2803/11/2023 AUDIT-CAnswerDate RecordedQ1: How often do you have a drink containing alcohol? Monthly or less03/11/2023Q2: How many drinks containing alcohol do you have on a typical day when you are drinking?3 or Q3: How often do you have six or more drinks on one occasion?Less than ewhdabq9203/11/2023Overall Financial Resource Strain (CARDIA)AnswerDate RecordedHow hard is it for you to pay for the very basics like food, housing, medical care, and heating?Somewhat hard 03/11/2023HQ-2AnswerDate RecordedPatient Health Questionnaire-2 Score0 03/25/2025[place] [facility] [place] of Occupational Health - Occupational Stress QuestionnaireAnswerDate [...] slept in ashelter (including now)?No03/11/2023Estimated Date of IcbpbddsYufkdccbKie61/27/2026ased on last menstrual period of 10/30/2024Sex and Gender InformationValueDate RecordedSex Assigned at CaqrfBqmmol11/01/2023 1:10 PM EDTLegal VnkHhxugo20/15/2023 6:51 PM EDTGender ItvvvplmSpwuyi12/01/2023 1:10 PM EDTSexual IxbtxrgepwnUcoowbnv94/01/2023 1:10 PM EDTdocumented as of this encounter Plan of Treatment DateTypeDepartmentCare Team (Latest Contact Info)Pmoixenjgrz97/07/2026 4:00 PM ESTRoutine [facility] Issac PORTILLO [address] [address] Dixie Gan, INSOLE AND OUTSOLE PREPARER [address] [place] [address] 06/30/2025 3:50 PM ESTRoutine NOMAislinn PORTILLO [address] [place] [address] Kolton Cao DO [address] [place] [address] documented as of this encounter Goals GoalPatient Goal TypeAssociated ProblemsRecent ProgressPatient-Stated?Author Reminders Care PlanOB RemindersNoOpen Scheduling, Backgrounddocumented as of this encounter Procedures Procedure NamePriorityDate/TimeAssociated DiagnosisCommentsCULTURE, URINE, EGTRYWZJguzmto35/21/2025 10:45 PM EST documented in this encounter Results * Urine culture (05/30/2025 10:45 PM EST)ComponentValueRef RangeTest Method Analysis TimePerformed AtPathologist SignatureFRMC NOTE <9,000 colonies/ml mixed ?bacterial skin contaminants ?2 Days 06/02/2025 11:14 AM [facility] CtrSpecimen (Source)Anatomical Location / LateralityCollection Method / VolumeCollection TimeReceived Time Clean-Voided Midstream (Clean Void Midstream)05/30/2025 10:45 PM EST05/31/2025 12:59 PM EST [facility] - 06/02/2025 11:14 AM EST Diagnosis: leaking fluid Comment: Authorizing ProviderResult TypeResult StatusCorey Kiley DOLAB MICROBIOLOGY - GENERAL ORDERABLESFinal ResultPerforming OrganizationAddressCity/State/ZIP Code Phone Number [facility] [address] [place] [address], [facility] [address] [place] [address] documented in this encounter Visit Diagnoses Not on filedocumented in this encounter Additional Health Concerns Active ProblemsNoted DateDiagnosed DateOB Csutvdiei08/24/2025 documented as of this encounter Care Teams Team MemberRelationshipSpecialtyStart DateEnd Date Dru Rodriguez, DO [address] [place] [address] PCP - GeneralFamily Medicine10/22/22 Dru Rodriguez, DO [address] [place] [address] PCP - Medical [place] Iylafghzsj49/1/2312documented as of this encounter
--- OUTSIDE RECORDS SUMMARY | 2025-06-04 18:51 | XMS_ITS | Encounter Summary ---
Author Organization [facility] Address [address] [place] [address] Care Team Providers Care Leasing Agent Name Role Phone Dru Rodriguez DO Primary Care Provider [phone] Dru Rodriguez DO Unavailable [phone] Encounter Details DateTypeDepartmentCare Team (Latest Contact Info)Rphquylnfvd01/21/2025Clinisync Result Encounter [facility] External Department Unsolicited Kolton Cao DO [address] [place] [address] Social History Tobacco UseTypesPacks/DayYears UsedDateSmoking Tobacco: NeverSmokeless [...] week03/11/2023How often do you attend methodist or roman catholic services?1 to 4 times per year03/11/2023o you belong to any clubs or organizations such as methodist groups, unions, fraternal or athletic laura ups, or school groups?No03/11/2023How often do you attend meetings of the clubs or organizations you belong to?Never03/11/2023re you , , , , never , or living with a partner?Tragsus8003/11/2023 AUDIT-CAnswerDate RecordedQ1: How often do you have a drink containing alcohol? Monthly or less03/11/2023Q2: How many drinks containing alcohol do you have on a typical day when you are drinking?3 or Q3: How often do you have six or more drinks on one occasion?Less than smawljq6103/11/2023Overall Financial Resource Strain (CARDIA)AnswerDate RecordedHow hard is it for you to pay for the very basics like food, housing, medical care, and heating?Somewhat hard 03/11/2023HQ-2AnswerDate RecordedPatient Health Questionnaire-2 Score0 03/25/2025[facility] [place] of Occupational Health - Occupational Stress QuestionnaireAnswerDate [...] slept in ashelter (including now)?No03/11/2023Estimated Date of YqpyobzgGerbeyylZnl24/27/2026ased on last menstrual period of 10/30/2024Sex and Gender InformationValueDate RecordedSex Assigned at UqcxuDiblgi41/01/2023 1:10 PM EDTLegal HzrHmmjtd12/15/2023 6:51 PM EDTGender FrzhpgzoXzbnuj66/01/2023 1:10 PM EDTSexual SepilimbomxTohagpaz45/01/2023 1:10 PM EDTdocumented as of this encounter Plan of Treatment DateTypeDepartmentCare Team (Latest Contact Info)Qtttuyzefoz76/07/2026 4:00 PM ESTRoutine [facility] Issac PORTILLO [address] [place] [place] [address] Dixie Gan, ELECTRIC LINEMAN [address] [place] [address] 06/30/2025 3:50 PM ESTRoutine NOMAislinn PORTILLO [address] [place] [place] [address] Kolton Cao DO [address] [facility] [place] [address] documented as of this encounter Goals GoalPatient Goal TypeAssociated ProblemsRecent ProgressPatient-Stated?Author Reminders Care PlanOB RemindersNoOpen Scheduling, Backgrounddocumented as of this encounter Procedures Procedure NamePriorityDate/TimeAssociated DiagnosisCommentsAMNISURERoutine 05/30/2025 10:55 PM EST URINE CULTURE - STLHAhiityr00/21/2025 10:45 PM EST [facility] UA (CLEAN/CATCH) GAS BRAZER/MICRO IF IND.Snilgeu6805/30/2025 10:45 PM EST documented in this encounter Results * AMNISURE (05/30/2025 10:55 PM EST)ComponentValueRef RangeTest MethodAnalysis TimePerformed AtPathologist SignatureTBH AMNISURENEGATIVENEGATIVETBHSpecimen (Source)Anatomical Location / LateralityCollection Method / VolumeCollection TimeReceived Time05/30/2025 10:55 PM EST05/30/2025 11:09 PM EST Narrative [facility] - 05/30/2025 11:21 PM EST Authorizing ProviderResult TypeResult StatusCorey Kiley DOLAB BLOOD ORDERABLES Final ResultPerforming OrganizationAddressCity/State/ZIP CodePhone Number [facility] * URINE CULTURE - [facility] (05/30/2025 10:45 PM EST)ComponentValueRef RangeTest MethodAnalysis TimePerformed AtPathologist SignatureURINE CULTURE - [facility] ??Urine Culture - [facility] SEEFRMC [facility] RESULT^[facility] RESULT TBHURINE CULTURE - FRMCSEEN SEE SCANNED REPORT, NORMAL^SEE SCANNED REPORT, NORMALTBHSpecimen (Source)Anatomical Location / LateralityCollection Method / VolumeCollection TimeReceived Time05/30/2025 10:45 PM EST05/30/2025 11:09 PM EST Narrative [facility] - 06/02/2025 12:29 PM EST Authorizing ProviderResult TypeResult StatusCorey Kiley DOLAB BLOOD ORDERABLES Final ResultPerforming OrganizationAddressCity/State/ZIP CodePhone Number [facility] * (ABNORMAL) [facility] UA (CLEAN/CATCH) GAS BRAZER/MICRO IF IND. (05/30/2025 10:45 PM EST) ComponentValueRef RangeTest MethodAnalysis TimePerformed AtPathologist SignatureCOLOR URINELT. YELLOWYELLOWTBHCLARITY URINECLEARCLEARTBHSPECIFIC GRAVITY URINE>=1.030(A)1.005 - 1.025TBHPH URINE6.05.0 - 9.0TBHPROTEIN PJJXN179 (A)NEG/TRACE mg/dLTBHGLUCOSE URINE UA250(A)NEGATIVE mg/dLTBHBILIRUBIN URINE NEGATIVENEGATIVETBHKETONES URINETRACE(A)NEGATIVE mg/dLTBHBLOOD URINENEGATIVE NEGATIVETBHNITRITE URINENEGATIVENEGATIVETBHUROBILINOGEN URINE0.20.2 - 1.0 EU/dLTBHLEUKOCYTE ESTERASE URINETRACE(A)NEGATIVETBHURINE MICROSCOPIC INDICATED YESTBHSpecimen (Source)Anatomical Location / LateralityCollection Method / VolumeCollection TimeReceived Time05/30/2025 10:45 PM EST05/30/2025 11:09 PM EST Narrative [facility] - 05/30/2025 11:15 PM EST Authorizing ProviderResult TypeResult StatusCorey Kiley DOCLINISYNCFinal Result Performing OrganizationAddressCity/State/ZIP CodePhone Number [facility] documented in this encounter Visit Diagnoses Not on filedocumented in this encounter Additional Health Concerns Active ProblemsNoted DateDiagnosed DateOB Pxpgjvfkv70/24/2025 documented as of this encounter Care Teams Team MemberRelationshipSpecialtyStart DateEnd Date Dru Rodriguez DO [address] [place] [address] PCP - GeneralFamily Medicine10/22/22 Dru Rodriguez DO [address] [place] [address] PCP - Medical [place] Bxxskwjpmv29/1/2312documented as of this encounter
--- OUTSIDE RECORDS SUMMARY | 2025-06-04 18:51 | XMS_ITS | Encounter Summary ---
Author Organization [facility] tem Address [facility] [address] [place] [address] Care Team Providers Care Metal Fabricator Welder Name Role Phone Dru Rodriguez Primary Care Provider [phone] Encounter Details DateTypeDepartmentCare Team (Latest Contact Info)Ueccyedfajq11/22/2025Orders Only Maternal- Medicine at [facility] [address] [facility] [place] [phone] Clarita Mchugh, [facility] Social History Tobacco UseTypesPacks/DayYears UsedDateSmoking Tobacco: NeverSmokeless Tobacco: NeverAlcohol UseStandard Drinks/WeekCommentsYes0 (1 standard drink = 0.6 oz pure alcohol)[facility] UtilitiesAnswerDate RecordedIn the past 12 months has the [employer], gas, oil, or water [employer] threatened to shut off services in your [...] care, and heating?Not hard at all02/17/2025PHQ-2AnswerDate RecordedTotal Nuflo64506/12/2023[facility] [place] of Occupational Health - Occupational Stress QuestionnaireAnswerDate [...] and direction in my life.Agree02/17/2025Estimated Date of UgtbkdiuOxsxmfmfCqm65/27/2026Based on last menstrual period of 10/30/2024Sex and Gender InformationValueDate RecordedSex Assigned at EduacXvdqsw17/22/2025 1:51 AM EDTLegal SexFemale 01/13/2015 11:58 AM EDTGender VlbfvvcbVbhhsz01/22/2025 1:51 AM EDTSexual OrientationNot on filedocumented as of this encounter Plan of Treatment DateTypeDepartmentCare Team (Latest Contact Info)Klelejldkov25/02/2026 3:30 PM ESTAppointment [facility] [address] [place] [phone] documented as of this encounter Visit Diagnoses Not on filedocumented in this encounter Additional Health Concerns AssessmentNoted TimePHQ-9 Depression Total Score: 8:31 AM ESTA Body Mass Index follow-up plan has been documented for the xnxhpqu0306/12/2023 4:35 PM ESTdocumented as of this encounter Care Teams Team MemberRelationshipSpecialtyStart DateEnd Date Dru Rodriguez DO [address] [place] [address] PCP - General01/01/17documented as of this encounter
--- OUTSIDE RECORDS SUMMARY | 2025-06-04 18:51 | XMS_ITS | Encounter Summary ---
Author Organization [facility] Address [address] [place] [address] Care Team Providers Care Mixing And Molding Machine Operator Name Role Phone Joaquín Rodriguez DO Primary Care Provider [phone]- [phone] Joaquín Rodriguez DO Unavailable [phone] Encounter Details DateTypeDepartmentCare Team (Latest Contact Info)Ebghqvwdjaj48/12/2025Clinisync Result Encounter [facility] External Department Unsolicited Bryant Cao DO [address] [place] [address] Social History Tobacco UseTypesPacks/DayYears UsedDateSmoking Tobacco: NeverSmokeless [...] relatives?Twice a week03/11/2023How often do you attend hoahaoism or gnosticist services?1 to 4 times per year03/11/2023o you belong to any clubs or organizations such as hoahaoism groups, unions, fraternal or athletic laura ups, or school groups?No03/11/2023How often do you attend meetings of the clubs or organizations you belong to?Never03/11/2023re you , , , , never , or living with a partner?Bqhpfkg2203/11/2023 AUDIT-CAnswerDate RecordedQ1: How often do you have a drink containing alcohol? Monthly or less03/11/2023Q2: How many drinks containing alcohol do you have on a typical day when you are drinking?3 or Q3: How often do you have six or more drinks on one occasion?Less than jeqopzt1703/11/2023Overall Financial Resource Strain (CARDIA)AnswerDate RecordedHow hard is it for you to pay for the very basics like food, housing, medical care, and heating?Somewhat hard 03/11/2023HQ-2AnswerDate RecordedPatient Health Questionnaire-2 Score0 03/25/2025[facility] [place] of Occupational Health - Occupational Stress QuestionnaireAnswerDate [...] slept in ashelter (including now)?No03/11/2023Estimated Date of TerahiibWlhoqyojRjo99/27/2026ased on last menstrual period of 10/30/2024Sex and Gender InformationValueDate RecordedSex Assigned at LfnmsQpasck40/01/2023 1:10 PM EDTLegal UneMkynbw40/15/2023 6:51 PM EDTGender YbthfeetZqeoql17/01/2023 1:10 PM EDTSexual KfyztvmjuyeTesdkarf66/01/2023 1:10 PM EDTdocumented as of this encounter Plan of Treatment DateTypeDepartmentCare Team (Latest Contact Info)Ahdjzndcdyd30/07/2026 4:00 PM ESTRoutine [facility] Issac PORTILLO [address] [place] [address] Dixie Gan, ROAD FREIGHT CONDUCTOR [address] [place] [address] 06/30/2025 3:50 PM ESTRoutine NOMAislinn PORTILLO [address] [place] [address] Bryant Cao DO [address] [place] [address] documented as of this encounter Goals GoalPatient Goal TypeAssociated ProblemsRecent ProgressPatient-Stated?Author Reminders Care PlanOB RemindersNoOpen Scheduling, Backgrounddocumented as of this encounter Procedures Procedure NamePriorityDate/TimeAssociated DiagnosisCommentsUS OB BPP W NON-SYQGLR7705/21/2025 8:39 PM EST documented in this encounter Results * US OB BPP W NON-STRESS (05/21/2025 8:39 PM EST)Anatomical Region LateralityModalityOtherSpecimen (Source)Anatomical Location / Laterality Collection Method / VolumeCollection TimeReceived Time05/21/2025 8:39 PM EST Narrative 05/21/2025 8:43 PM EST [facility] ?[address] ? [place] [address] ? Ultrasound Report ? Signed ? Patient: KAELYN SHAW ?MR#: [id number] ?? : 2000 ?Acct:[id number] ?? Age/Sex: 25 / F ?ADM Date: 05/21/25 ?? Loc: US ? Attending Dr: Bryant Cao D.O. ? Ordering Physician: Bryant Cao D.O. ?? Date of Service: 05/21/25 ?? Procedure(s): US OB BPP w non-stress ?? Accession Number(s): [id number] ? cc: Bryatn Cao D.O.; JOAQUÍN RODRIGUEZ ? [facility] ? [facility] [address] ? [place] [address] ? Patient Name: ?? KAELYN SHAW ? MRN: [facility]:[id number] ? date: 2000 ?Sex: F ?? Assigned Patient Location: ?? Current Patient Location: ? Accession/Order Number: [id number] ?? Exam Date: 05/21/2025 ??19:56 ?Report Date: [...] Dictation Location: RADIO-PC-29 ? Electronically authenticated by: [id number] ??Y ?? Date: 05/21/2025 ??20:39 ? Dictated By: ?Kaveh Romeo M.D. ? Signed By: ?05/21/252042 ? DD/ 38 ? TD/TT: ? Portal Administrator: Procedure Note Radiology, Radiologist, MD - 05/21/2025 [place] [address] Ultrasound Report Signed Patient: KAELYN SHAW MMR#: [id number] : 2000Acct:[id number] Age/Sex: 25 / FADM Date: 05/21/25 Loc: US Attending Dr: Bryant Cao D.O. Ordering Physician: Bryant Cao D.O. Date of Service: 05/21/25 Procedure(s): US OB BPP w non-stress Accession Number(s): [id number] cc: Bryant Cao D.O.; JOAQUÍN RODRIGUEZ [facility] [place] [id number] Patient Name: KAELYN SHAW MRN: [facility]:[id number] date: 2000 Sex: F Assigned Patient Location: US Current Patient Location: Accession/Order Number: [id number] Exam Date: 05/21/2025 19:56 Report Date: 05/21/2025 20:39 At the request of: BRYANT CAO DO Procedure: US OB BPP w non-stress Ultrasound biophysical profile INDICATION: Type 1 diabetes during COMPARISON: 05/14/2025 FINDINGS IMPRESSION: SINGLE LIVE INTRAUTERINE IN CEPHALICPOSITION. HEART RATE 138 BPM. AMNIOTIC FLUID INDEX 12.9 CM. BIOPHYSICALPROFILE SCORE 8/8 Impression dictated by: Kaveh Romeo M.D. 05/21/2025 8:39 PM Dictation Location: [place] [address] Electronically authenticated by: [id number] Y Date: 520:39 Dictated By: Kaveh Romeo M.D. Signed By:05/21/252042 DD/ 38 TD/TT: Portal Administrator: Authorizing ProviderResult TypeResult StatusCorey Kiley DOCLINISYNC IMAGINGFinal Result documented in this encounter Visit Diagnoses Not on filedocumented in this encounter Additional Health Concerns Active ProblemsNoted DateDiagnosed DateOB Yemgqgkln27/24/2025 documented as of this encounter Care Teams Team MemberRelationshipSpecialtyStart DateEnd Date Joaquín Rodriguez DO [address] [place] [address] [facility] - [facility]/22/22 Joaquín Rodriguez DO [address] [place] [address] PCP - Medical [place] Osjwovajfg52/1/2312documented as of this encounter
--- OUTSIDE RECORDS SUMMARY | 2025-06-04 18:51 | XMS_ITS | Encounter Summary ---
Author Organization [facility] tem Address [id number] [address] [place] [address] Care Team Providers Care Tech Writer Name Role Phone JenniferDru April MUNGUIA Primary Care Provider [phone] Encounter Details DateTypeDepartmentCare Team (Latest Contact Info)Uxlbsehxfhm90/23/2025Orders Only Maternal- Medicine at [facility] [address] [place] [phone] Odilia Dumas RN [address] [address] Social History Tobacco UseTypesPacks/DayYears UsedDateSmoking Tobacco: NeverSmokeless [...] care, and heating?Not hard at all02/17/2025PHQ-2AnswerDate RecordedTotal Gzeyz58906/12/2023[facility] [place] of Occupational Health - Occupational Stress QuestionnaireAnswerDate [...] of a household?No02/17/2025hildcareAnswerDate RecordedDo problems getting child & adolescent psychiatrist make it difficult for you [...] and direction in my life.Agree02/17/2025Estimated Date of WlugbobwIstgwvyaIod49/27/2026Based on last menstrual period of 10/30/2024Sex and Gender InformationValueDate RecordedSex Assigned at RsnprJmugla23/22/2025 1:51 AM EDTLegal SexFemale 01/13/2015 11:58 AM EDTGender OajitzgmOzzjlp94/22/2025 1:51 AM EDTSexual OrientationNot on filedocumented as of this encounter Plan of Treatment DateTypeDepartmentCare Team (Latest Contact Info)Zlqzjsolvsb54/02/2026 3:30 PM ESTAppointment [facility] [address] [place] [address] documented as of this encounter Visit Diagnoses Not on filedocumented in this encounter Additional Health Concerns AssessmentNoted TimePHQ-9 Depression Total Score: 8:31 AM ESTA Body Mass Index follow-up plan has been documented for the fuogyiy5206/12/2023 4:35 PM ESTdocumented as of this encounter Care Teams Team MemberRelationshipSpecialtyStart DateEnd Date Dru Rodriguez DO [address] [place] [address] PCP - General01/01/17documented as of this encounter
--- OUTSIDE RECORDS SUMMARY | 2025-06-04 18:51 | XMS_ITS | Encounter Summary ---
Author Organization [facility] Address [address] [place] [address] Care Team Providers Care Human Resources Associate Name Role Phone Dru Rodriguez DO Primary Care Provider [phone] Dru Rodriguez DO Unavailable [phone] Encounter Details DateTypeDepartmentCare Team (Latest Contact Info)Wcvmquwsfau04/19/2025Telephone [facility] [place] [facility] [address] [place] [phone] Kolton Cao DO [address] [place] [phone] Social History Tobacco UseTypesPacks/DayYears UsedDateSmoking Tobacco: NeverSmokeless [...] week03/11/2023How often do you attend orthodoxy or zoroastrian services?1 to 4 times per year03/11/2023o you belong to any clubs or organizations such as orthodoxy groups, unions, fraternal or athletic laura ups, or school groups?No03/11/2023How often do you attend meetings of the clubs or organizations you belong to?Never03/11/2023re you , , , , never , or living with a partner?Qdjiahy4303/11/2023 AUDIT-CAnswerDate RecordedQ1: How often do you have a drink containing alcohol? Monthly or less03/11/2023Q2: How many drinks containing alcohol do you have on a typical day when you are drinking?3 or Q3: How often do you have six or more drinks on one occasion?Less than qnpwgep3303/11/2023Overall Financial Resource Strain (CARDIA)AnswerDate RecordedHow hard is it for you to pay for the very basics like food, housing, medical care, and heating?Somewhat hard 03/11/2023HQ-2AnswerDate RecordedPatient Health Questionnaire-2 Score0 03/25/2025[facility] [place] of Occupational Health - Occupational Stress QuestionnaireAnswerDate [...] slept in ashelter (including now)?No03/11/2023Estimated Date of MbkqvkzrTltxlnhfMfj20/27/2026ased on last menstrual period of 10/30/2024Sex and Gender InformationValueDate RecordedSex Assigned at LogvjMdsecs50/01/2023 1:10 PM EDTLegal TajKdveyh43/15/2023 6:51 PM EDTGender WyimuvcjTvqbxo28/01/2023 1:10 PM EDTSexual NarfjaozfgeKfalpdkq49/01/2023 1:10 PM EDTdocumented as of this encounter Miscellaneous Notes * Telephone Encounter - Aline Fernández LPN - 05/28/2025 9:23 AM EST The reason I am calling is because I am getting my Rhogam shot today over at the [facility] and have to get blood work done [...] it. You can call me back at [phone]. Thank you. Patient call was returned and advised we will send orders over for Urine Culture for her to have completed. PVU orders sent at this time. documented in this encounter Plan of Treatment DateTypeDepartmentCare Team (Latest Contact Info)Pncskaebrcp18/07/2026 4:00 PM ESTRoutine [facility] Iss[facility] PORTILLO [address] [place] [phone] Dixie Gan, SENIOR RECRUITMENT CONSULTANT [address] [place] [phone] 06/30/2025 3:50 PM ESTRoutine [facility] [address] [facility] [place] [phone] Kolton Cao, DO [address] [place], [place] [phone] NameTypePriorityAssociated DiagnosesOrder ScheduleUrine cultureMicrobiology Routine Kidney pain Expected: 05/28/2025 (Approximate), Expires: 05/28/2026documented as of this encounter Goals GoalPatient Goal TypeAssociated ProblemsRecent ProgressPatient-Stated?Author Reminders Care PlanOB RemindersNoOpen Scheduling, Backgrounddocumented as of this encounter Visit Diagnoses Diagnosis Kidney pain Renal colic documented in this encounter Additional Health Concerns Active ProblemsNoted DateDiagnosed DateOB Ecfkyipke37/24/2025 documented as of this encounter Care Teams Team MemberRelationshipSpecialtyStart DateEnd Date Dru Rodriguez DO [address] [place] [address] PCP - GeneralFamily Medicine10/22/22 Dru Rodriguez DO [address] [place] [address] PCP - Medical [facility]03/10/2312documented as of this encounter
--- OUTSIDE RECORDS SUMMARY | 2025-06-04 18:51 | XMS_ITS | Encounter Summary ---
Author Organization [facility] tem Address [id number] [address] [place] [address] Care Team Providers Care Metal Mold Dresser Name Role Phone JenniferDru April MUNGUIA Primary Care Provider [phone] Encounter Details DateTypeDepartmentCare Team (Latest Contact Info)Nfamathefnc75/23/2025Orders Only Maternal- Medicine at [facility] [address] [place] [phone] Bhumi Duval MD [address] [facility], [address] [place] [address] Social History Tobacco UseTypesPacks/DayYears UsedDateSmoking Tobacco: NeverSmokeless Tobacco: NeverAlcohol UseStandard Drinks/WeekCommentsYes0 (1 standard drink = 0.6 oz pure alcohol)[facility] UtilitiesAnswerDate RecordedIn the past 12 months [...] care, and heating?Not hard at all02/17/2025PHQ-2AnswerDate RecordedTotal Vckdy673Finmck[facility] [place] of Occupational Health - Occupational Stress [...] a household?No02/17/2025hildcareAnswerDate RecordedDo problems getting child care counselor make it difficult for [...] and direction in my life.Agree02/17/2025Estimated Date of GooklhdbRnddqupiNkv14/27/2026ased on last menstrual period of 10/30/2024Sex and Gender InformationValueDate RecordedSex Assigned at ZcdnzSkluep60/22/2025 1:51 AM EDTLegal SexFemale 01/13/2015 11:58 AM EDTGender VziwgfidOdlgox99/22/2025 1:51 AM EDTSexual OrientationNot on filedocumented as of this encounter Plan of Treatment DateTypeDepartmentCare Team (Latest Contact Info)Zzheajdpmbv81/02/2026 3:30 PM ESTAppointment [facility] [address] [place] [phone] documented as of this encounter Visit Diagnoses Not on filedocumented in this encounter Additional Health Concerns AssessmentNoted TimePHQ-9 Depression Total Score: 8:31 AM ESTA Body Mass Index follow-up plan has been documented for the ceuqmle3906/12/2023 4:35 PM ESTdocumented as of this encounter Care Teams Team MemberRelationshipSpecialtyStart DateEnd Date Dru Rodriguez DO [address] [place] [address] PCP - General01/01/17documented as of this encounter
--- OUTSIDE RECORDS SUMMARY | 2025-06-04 18:52 | XMS_ITS | Encounter Summary ---
Author Organization [facility] Address [address] [place] [address] Care Team Providers Care Screen Making Technician Name Role Phone Dru Rodriguez DO Primary Care Provider [phone] Dru Rodriguez DO Unavailable [phone] Encounter Details DateTypeDepartmentCare Team (Latest Contact Info)Mdbzvuqpnlr19/19/2025External Result Encounter [facility] External Department Unsolicited Kolton Cao DO [address] [facility] [address] [place] [address] Social History Tobacco UseTypesPacks/DayYears UsedDateSmoking Tobacco: NeverSmokeless [...] relatives?Twice a week03/11/2023How often do you attend religious or amish services?1 to 4 times per year03/11/2023o you belong to any clubs or organizations such as religious groups, unions, fraternal or athletic laura ups, or school groups?No03/11/2023How often do you attend meetings of the clubs or organizations you belong to?Never03/11/2023re you , , , , never , or living with a partner?Gqkphcu1303/11/2023 AUDIT-CAnswerDate RecordedQ1: How often do you have a drink containing alcohol? Monthly or less03/11/2023Q2: How many drinks containing alcohol do you have on a typical day when you are drinking?3 or Q3: How often do you have six or more drinks on one occasion?Less than ngczszn7703/11/2023Overall Financial Resource Strain (CARDIA)AnswerDate RecordedHow hard is it for you to pay for the very basics like food, housing, medical care, and heating?Somewhat hard 03/11/2023HQ-2AnswerDate RecordedPatient Health Questionnaire-2 Score0 03/25/2025[facility] [place] of Occupational Health - Occupational Stress QuestionnaireAnswerDate [...] slept in ashelter (including now)?No03/11/2023Estimated Date of FuoaoussLoctuggaSjh97/27/2026ased on last menstrual period of 10/30/2024Sex and Gender InformationValueDate RecordedSex Assigned at FettmBmmjlw81/01/2023 1:10 PM EDTLegal XuaBkqwfe68/15/2023 6:51 PM EDTGender JxkjlntnIziyge52/01/2023 1:10 PM EDTSexual ZhxizbwppthWfdacyqp11/01/2023 1:10 PM EDTdocumented as of this encounter Plan of Treatment DateTypeDepartmentCare Team (Latest Contact Info)Ditbzlzidtd26/07/2026 4:00 PM ESTRoutine [facility] PORTILLO [address] [place] [address] Dixie Gan, AGILE COACH [address] [place] [address] 06/30/2025 3:50 PM ESTRoutine NOMAislinn PORTILLO [address] [place] [address] Kolton Cao DO [address] [place] [address] documented as of this encounter Goals GoalPatient Goal TypeAssociated ProblemsRecent ProgressPatient-Stated?Author Reminders Care PlanOB RemindersNoOpen Scheduling, Backgrounddocumented as of this encounter Procedures Procedure NamePriorityDate/TimeAssociated DiagnosisCommentsCULTURE, URINE, LMPBDAUAvcajkn74/19/2025 12:44 PM EST documented in this encounter Results * Urine culture (05/28/2025 12:44 PM EST)ComponentValueRef RangeTest Method Analysis TimePerformed AtPathologist SignatureFRMC NOTE?15,000 colonies/ml mixed ?bacterial skin contaminants ?2 Days 05/31/2025 11:21 AM [facility]tr[facility] (Source)Anatomical Location / LateralityCollection Method / VolumeCollection TimeReceived Time Clean-Voided Midstream (Clean Void Midstream)05/28/2025 12:44 PM EST05/28/2025 1:02 PM EST [facility] 05/31/2025 11:21 AM EST Diagnosis: RH NEG Comment: Authorizing ProviderResult TypeResult StatusCorey Kilye DOLAB MICROBIOLOGY - GENERAL ORDERABLESFinal ResultPerforming OrganizationAddressCity/State/ZIP Code Phone Number [facility] [address] [place] [address], [facility] [address] [place] [address] documented in this encounter Visit Diagnoses Not on filedocumented in this encounter Additional Health Concerns Active ProblemsNoted DateDiagnosed DateOB Leahghrqy93/24/2025 documented as of this encounter Care Teams Team MemberRelationshipSpecialtyStart DateEnd Date Dru Rodriguez DO [address] [place] [address] PCP - GeneralFamily Medicine10/22/22 Dru Rodriguez DO [address] [place] [phone] PCP - Medical [place] Jhsxuptdri77/1/2312documented as of this encounter
--- OUTSIDE RECORDS SUMMARY | 2025-06-04 18:52 | XMS_ITS | Encounter Summary ---
Author Organization [facility] Address [address] [place] [address] Care Team Providers Care Dispersion Mixer Name Role Phone Joaquín Rodriguez DO Primary Care Provider [phone] oJaquín Rodriguez DO Unavailable [phone] Encounter Details DateTypeDepartmentCare Team (Latest Contact Info)Efpeoppincb60/19/2025Clinisync Result Encounter [facility] External Department Unsolicited Bryant Cao DO [address] [address] Social History Tobacco UseTypesPacks/DayYears UsedDateSmoking Tobacco: NeverSmokeless [...] week03/11/2023How often do you attend baptism or congregation services?1 to 4 times per year03/11/2023o you belong to any clubs or organizations such as baptism groups, unions, fraternal or athletic laura ups, or school groups?No03/11/2023How often do you attend meetings of the clubs or organizations you belong to?Never03/11/2023re you , , , , never , or living with a partner?Icwimgf0303/11/2023 AUDIT-CAnswerDate RecordedQ1: How often do you have a drink containing alcohol? Monthly or less03/11/2023Q2: How many drinks containing alcohol do you have on a typical day when you are drinking?3 or Q3: How often do you have six or more drinks on one occasion?Less than smexlgn3803/11/2023Overall Financial Resource Strain (CARDIA)AnswerDate RecordedHow hard is it for you to pay for the very basics like food, housing, medical care, and heating?Somewhat hard 03/11/2023HQ-2AnswerDate RecordedPatient Health Questionnaire-2 Score0 03/25/2025[facility] [place] of Occupational Health - Occupational Stress QuestionnaireAnswerDate [...] slept in ashelter (including now)?No03/11/2023Estimated Date of EknmuagtZixnglieMej41/27/2026ased on last menstrual period of 10/30/2024Sex and Gender InformationValueDate RecordedSex Assigned at DinowVbueeq81/01/2023 1:10 PM EDTLegal XnxZauwbn60/15/2023 6:51 PM EDTGender RllcoejlXmtdqx14/01/2023 1:10 PM EDTSexual HjfzdlmijrhRujxriuo52/01/2023 1:10 PM EDTdocumented as of this encounter Plan of Treatment DateTypeDepartmentCare Team (Latest Contact Info)Sappvsliqgq94/07/2026 4:00 PM ESTRoutine [facility] PORTILLO [address] [place] [address] Dixie Gan, STAPLE CUTTER [address] [facility] [place] [address] 06/30/2025 3:50 PM ESTRoutine NOMAislinn PORTILLO [address] [place] [address] Bryant Cao DO [address] [place] [address] documented as of this encounter Goals GoalPatient Goal TypeAssociated ProblemsRecent ProgressPatient-Stated?Author Reminders Care PlanOB RemindersNoOpen Scheduling, Backgrounddocumented as of this encounter Procedures Procedure NamePriorityDate/TimeAssociated DiagnosisCommentsUS OB BPP W NON-LUIYAX8605/28/2025 11:24 PM EST URINE CULTURE - QATWKdlzrzv16/19/2025 12:44 PM EST documented in this encounter Results * US OB BPP W NON-STRESS (05/28/2025 11:24 PM EST)Anatomical Region LateralityModalityOtherSpecimen (Source)Anatomical Location / Laterality Collection Method / VolumeCollection TimeReceived Time05/28/2025 11:24 PM EST Narrative 05/28/2025 11:27 PM EST [facility] ?[address] ? [place] [address] ? Ultrasound Report ? Signed ? Patient: KAELYN SHAW ?MR#: [id number] ?? : 2000 ?Acct:[id number] ?? Age/Sex: 25 / F ?ADM Date: 05/28/25 ?? Loc: US ? Attending Dr: Bryant Cao D.O. ? Ordering Physician: Bryant Cao D.O. ?? Date of Service: 05/28/25 ?? Procedure(s): US OB BPP w non-stress ?? Accession Number(s): [id number] ? cc: Bryant Cao D.O.; JOAQUÍN RODRIGUEZ ? [facility] ? [address] ? [place] [address] ? Patient Name: ?? KAEYLN SHAW ? MRN: [facility]:[id number] ? date: 2000 ?Sex: F ?? Assigned Patient Location: ?? Current Patient Location: US ?? Accession/Order Number: [id number] ?? Exam Date: 05/28/2025 ??16:19 ?Report Date: [...] Dictation Location: RADIO-PC-17 ? Electronically authenticated by: [id number] ??Y ?? Date: 05/28/2025 ??23:24 ? Dictated By: ?Prashanth Orta M.D. ? Signed By: ?12/19/25 2327 ? DD/ ? TD/TT: ? Pole Inspector: Procedure Note Radiology, Radiologist, - 05/28/2025 [place] [address] Ultrasound Report Signed Patient: KAELYN SHAW MMR#: [id number] : 2000Acct:[id number] Age/Sex: 25 / FADM Date: 05/28/25 Loc: US Attending Dr: Bryant Cao D.O. Ordering Physician: Bryant Cao D.O. Date of Service: 05/28/25 Procedure(s): US OB BPP w non-stress Accession Number(s): [id number] cc: Bryant Cao D.O.; JOAQUÍN RODRIGUEZ The [address] [address] Patient Name: KAELYN SHAW MRN: [id number] date: 2000 Sex: F Assigned Patient Location: Current Patient Location: Accession/Order Number: [id number] Exam Date: 05/28/2025 16:19 Report Date: 05/28/2025 [...] Orta M.D. 05/28/2025 11:24 PM Dictation Location: [place] [address] Electronically authenticated by: [id number] Y Date: 3:24 Dictated By: Prashanth Orta M.D. Signed By:05/28/252326 DD/ 23 TD/TT: Pole Inspector: Authorizing ProviderResult TypeResult StatusCorey Kiley DOCLINISYNC IMAGINGFinal [...] ORDERABLES Final ResultPerforming OrganizationAddressCity/State/ZIP CodePhone Number [facility] documented in this encounter Visit Diagnoses Not on filedocumented in this encounter Additional Health Concerns Active ProblemsNoted DateDiagnosed DateOB Lndjmvluv97/24/2025 documented as of this encounter Care Teams Team MemberRelationshipSpecialtyStart DateEnd Date Joaquín Rodriguez DO [address] [place] [address] PCP - GeneralFamily Medicine10/22/22 Joaquín Rodriguez DO [address] [place] [address] PCP - Medical [place] Vqityizlwy97/1/2312documented as of this encounter
--- OUTSIDE RECORDS SUMMARY | 2025-06-04 18:52 | XMS_ITS | Clinical Summary ---
Author Organization [facility] Address [address] [place] [address] Care Team Providers Care Syruper Name Role Phone Joaquín Dillon DO Primary Care Provider [phone] Joaquín Dillon DO Unavailable [phone] Allergies Active AllergyReactionsCriticalityNoted DateCommentsAmoxicillinAnaphylaxisHigh 05/23/2016 Mouth irritation UzlfdsdcnaqKsubegcjrdnCwbu40/14/2016 Has since taken without reaction Medications MedicationSigDispense QuantityRefillsLast FilledStart DateEnd DateStatus Continuous Blood Gluc Transmit (Dexcom G6 transmitter) [facility] Indications:Type 1 diabetes mellitus without complication (HCC)Inject 1 each under the skin every 3 (three) months. Use as instructed 1 each 3Active insulin glargine (Lantus SoloStar) 100 UNIT/ML pen Indications:Type 1 diabetes mellitus without complication (HCC)inject 22 units subcutaneously once daily 3 mL 4Active Insulin Disposable Pump (Omnipod 5 DysG5W0 Pods Gen 5) misc Indications:Type 1 diabetes mellitus without complication (HCC)Inject 1 each under the skin every 3 (three) days CHANGE POD EVERY 3 DAYS DIRECTED 30 each 5Active HumaLOG 100 UNIT/ML solution Indications:Type 1 diabetes mellitus without complication (HCC)USE PER INSULIN PUMP INSTRUCTION MAX OF 80 UNITS DAILY 30 mL 5Active Vit w/Rl-Lbmyciict-FN (PNV PO) Take by mouthActive Acetone, Urine, Test (Ketone Test) strip check urine FOR ketones with blood glucose greater THAN 250 mg/dLActive aspirin 81 MG EC tablet Take 81 mg by mouth in the morning.5Active cholecalciferol (Vitamin D-3) 1.25 MG (62837 UT) capsule every week5Active Continuous Glucose Sensor (Dexcom G7 Sensor) misc USE WITH OMNIPOD 5 TO MANAGE BLOOD SUGARS AND CHANGE EVERY 10 DAYS01/21/2025 Active doxylamine (Unisom) 25 MG tablet Take 25 mg by mouth 4 (four) times a day as znkrda4401/08/2025tive Baqsimi One Pack 3 MG/DOSE nasal powder Use to treat unresponsive rzduorcuzane65/11/2025tive OneTouch Ultra Test test strip USE 1 STRIP TO CHECK GLUCOSE 4 TIMES DAILY10/14/2024tive ondansetron ODT (Zofran-ODT) 4 MG disintegrating tablet DISSOLVE 1 TABLET UNDER THE TONGUE EVERY 8 HOURS NEEDED FOR NAUSEA for up to 10 doses01/08/2025tive promethazine (Phenergan) 25 MG tablet Take 25 mg by mouth every 6 (six) hours if mpmnhu9601/08/2025tive pyridoxine (Vitamin B-6) 100 MG tablet Take 100 mg by mouth in the morning.Active Active Problems ProblemNoted DateDiagnosed DateHypoglycemia associated with shpaewxe54/30/2025 Mixed obsessional thoughts and acts4PTSD (post-traumatic stress disorder)09/06/2023Type 1 diabetes mellitus without bdbavirbrgovs18/28/2023 Assessment & Plan (03/11/2024 7:46 PM EDT): [...] with hypoglycemia and without coma02/04/2023ulging lumbar disc11/08/2022hronic mbfrjie2311/08/2022Lumbago with sciatica, left side 11/08/20225355Jdiszeac27/01/2023iliary mieihftztc09/01/2023eneralized anxiety yntddhxg62/25/2017Panic disorder without exbogcwukgc69/25/2017Celiac disease in pediatric yzomupy0405/23/2016Mild intermittent slgzzh1105/23/2016Diabetes type 1, /18/2011Estimated Date of FesjtyfyFryxwhebPxz65/27/2026ased on last menstrual period of 10/30/2024 Resolved Problems ProblemNoted DateDiagnosed DateResolved DateChronic jnmpyoiegqclv96/22/2023 08/05/2023lood msmqezz35Hypoglycemia due to type 1 diabetes aqdljdzv57Other chronic painRight upper quadrant painiabetic ketoacidosis associated with type 1 diabetes fdsnmyfh10cute renal sueqsromdjkxf09/11/2017 08/05/2023Mechanical breakdown of insulin pumpType 1 diabetes mellitus with ketoacidosis without coma Encounters DateTypeDepartmentCare ShtiZbcazuqwdim54/22/2025 3:30 PM ESTRoutine [facility] [address] [place] [phone] Bryant Cao, DO Third trimester ([facility]); 30 weeks gestation of ([facility])05/31/2025bstract [facility] [address] [place] [address] Joaquín Dillon, DO 05/30/2025External Result Encounter NOMS External Department Unsolicited Kiley, Bryant, DO 5Clinisync Result Encounter NOMS External Department Unsolicited Kiley, Bryant, DO 05/28/2025External Result Encounter NOMS External Department Unsolicited KileyBryant, DO 05/28/2025linisync Result Encounter NOMS External Department Unsolicited KileyJoseyy, DO 05/28/2025Telephone [facility] [address] [facility] [address] [place] [phone] Bryant Cao, DO 05/21/2025linisync Result Encounter NOMS External Department Unsolicited KileyBryant, DO 05/18/2025 2:40 PM ESTRoutine [facility] [address] [facility] [address] [place] [phone] Katharine Cummins PA 28 weeks gestation of ([facility]); Type 1 diabetes mellitus during , antepartum ([facility]); Third trimester ([facility])05/18/2025amboo flowsheet [facility] [address] [facility] [address] [place] [phone] Katharine Cummins PA 05/14/2025linisync Result Encounter NOMS External Department Unsolicited Bryant Cao, DO 05/12/2025Telephone [facility] [address] [facility] [address] [place] [phone] Nicolasa Bailey MA 04/27/2025 9:40 AM ESTRoutine [facility] [address] [facility] [facility] [place] [address] Bryant Cao, DO Hospital discharge follow-up; Second trimester ([facility]); 25 weeks gestation of ([facility]); UTI xbdqudkw53/18/2025amboo flowsheet [facility] [address] [facility] [address] [place] [address] Bryant Cao, 04/26/2025Patient Outreach [facility] [address] [place] [address] Patria Woods LPN 04/26/2025Telephone [facility] [address] [facility] [address] [place] [address] Stella Webb MA 04/23/2025Telephone [facility] [address] [facility] [address] [place] [address] Cindi Jacinto, [facility] 5Clinisync Result Encounter NOMS External Department Unsolicited Bryant Cao, 5Abstract [facility] [address] [facility] [place] [address] Bryant Cao, 04/08/2025 1:50 PM EDTRoutine [facility] [address] [place] [address] Katharine Cummins PA Second trimester ([facility]); 22 weeks gestation of ([facility]); Yeast /30/2025Patient Outreach [facility] [address] [place] [address] Aline Dudley, BRANDT 03/30/2025Orders Only [facility] [address] [place] [address] Kristopher Calvo, OD 03/25/2025 8:45 AM EDTOffice Visit [facility] [address] [place] [address] Joaquín Dillon, DO Routine general medical examination at a health care facility (Primary Dx); Generalized anxiety disorder; Celiac disease in pediatric patient (HCC); Mild intermittent asthma, unspecified whether complicated ([facility])03/25/2025Orders Only [facility] [address] [place] [address] Joaquín Dillon, DO 03/25/2025Telephone [facility] [address] [place] [phone] Lesa Boss LPN 03/25/2025amboo flowsheet [facility] [address] [place] [phone] Joaquín Dillon, DO 03/25/20251636Kwaqoe02/14/2025 8:50 AM EDTRoutine [facility] [place] [address] Bryant Cao, DO Second trimester ([facility]); 20 weeks gestation of ([facility]); Type 1 diabetes mellitus during , antepartum ([facility])03/23/2025 Abstract [facility] [place] [address] Bryant Cao, DO 5Bamboo flowsheet [facility] [facility] [place] [address] Bryant Cao, DO 5Clinisync Result Encounter NOMS External Department Unsolicited Bryant Cao, DO 03/08/2025Patient Outreach N[facility] [address] [place] [phone] Aline DudleyBRANDT from Last 3 Months Immunizations ImmunizationAdministration DatesNext TztART612229LQtN56/23/2004DTaP, Ofmbphctiqw66/13/2006,11/24/2002,2001,2001HPV, Quadrivalent 08/27/2013,08/21/2013,04/06/2013,03/02/2013Hep B, Adolescent or Pediatric 11/24/2002,2001,2001HiB, mrhflonaovf95/17/2003,2001,2001 Hib (PRP-T)03/02/2004IPV1,12/20/2005,2001Influenza, injectable, isxrxwpjqjqq53/26/2021Influenza, injectable, quadrivalent, preservative free 06/12/2023,05/11/2022Influenza, seasonal, injectable, preservative free 03/17/2025,03/18/2024MMR1,12/20/2005,11/24/2002Meningococcal MCV4P 01/22/2018,03/02/2013PPD Test06/12/2023,06/05/2023,05/18/2022,05/11/2022 Pneumococcal Conjugate PCV 7008/05/2001Polio, Hqvmuomodsu98/17/2003,2001 Tdap107/31/2022,03/02/20132277Pnpocdowk25/21/2023,03/02/2013,03/18/2008,12/20/2005 Family History Medical HistoryRelationNameCommentsArthritisFatherJohn SeamonAsthmaFatherJohn SeamonStrokeMaternal GrandmotherCynthia HicksDrug abuseMotherKristy SeamonCancer OtherStrokeOtherStrokePaternal GrandfatherDiabetesSister 2Jozlytimur MelendezRelation DxtzMpiluuBsajknnwJbpjdrih1AvqrxeCmmy SeamonAliveMaternal GrandmotherCynthia HicksMotherKristy SeamonDeceasedOtherHalf BrotherPaternal GrandfatherSister 1x2 [...] relatives?Twice a week03/11/2023How often do you attend hindu or episcopalian services?1 to 4 times per year03/11/2023o you belong to any clubs or organizations such as hindu groups, unions, fraternal or athletic laura ups, or school groups?No03/11/2023How often do you attend meetings of the clubs or organizations you belong to?Never03/11/2023re you , , , , never , or living with a partner?Xwcznud3603/11/2023 AUDIT-CAnswerDate RecordedQ1: How often do you have a drink containing alcohol? Monthly or less03/11/2023Q2: How many drinks containing alcohol do you have on a typical day when you are drinking?3 or Q3: How often do you have six or more drinks on one occasion?Less than alnttoy8803/11/2023Overall Financial Resource Strain (CARDIA)AnswerDate RecordedHow hard is it for you to pay for the very basics like food, housing, medical care, and heating?Somewhat hard 03/11/2023HQ-2AnswerDate RecordedPatient Health Questionnaire-2 Score0 03/25/2025[facility] - Occupational Stress QuestionnaireAnswerDate [...] steady place to sleep or slept in red riverelter (including now)?No03/11/2023Estimated Date of FtrvolfsGvytscgpAra53/27/2026ased on last menstrual period of 10/30/2024Sex and Gender InformationValueDate RecordedSex Assigned at UliyfLbjupf21/01/2023 1:10 PM EDTLegal PehVnysuw02/15/2023 6:51 PM EDTGender CuwsmccvQsjvwr74/01/2023 1:10 PM EDTSexual LyfdyiocjofInvpfhbw20/01/2023 1:10 PM EDT Last Filed Vital Signs Vital SignReadingTime TakenCommentsBlood Qequfixv200/7405/31/2025 3:50 PM EST Unlnm927503/25/2025 8:46 AM KJIEnxtnvhjhqg72 ??C (96.8 ??F)03/25/2025 8:46 AM EDT Respiratory Rate--Oxygen Wdiuwqhsgf39%03/25/2025 8:46 AM EDTInhaled Oxygen Concentration--Kxdfpo38.2 kg (172 lb 6.4 oz)05/31/2025 3:50 PM TLUJncywg836.3 cm (4' 10 )03/25/2025 8:46 AM EDTBody Mass Index36.031 8:46 AM EDT Plan of Treatment DateTypeDepartmentCare Team (Latest Contact Info)Vwttjvlvrej12/07/2026 4:00 PM ESTRoutine [facility] [address] [facility] [address] [place] [phone] Dixie Gan, [employer] [address] [place] [phone] 06/30/2025 3:50 PM ESTRoutine [facility] [address] [facility] [facility] [place] [phone] Bryant Cao DO [address] [place], [place] [phone] Health MaintenanceDue DateLast DoneCommentsPneumococcal Vaccine: Pediatrics (0 to 5 Years) and At-Risk Patients (6 to 64 Years) (1 of 2 - PCV)02/12/2020 2001Diabetes: Hemoglobin A1C, 12/15/2024, 12/15/2024, Additional history existsDiabetes: Urine Protein Vljtoaxhx78, 11/11/2023, 11/11/2023, Additional history existsDiabetes: Retinopathy Screening , 06/30/2019Influenza OkgngpmEncelupni85/08/2025, 03/18/2024, 06/12/2023, Additional history exists Goals GoalPatient Goal TypeAssociated ProblemsRecent ProgressPatient-Stated?Author Reminders Care PlanOB RemindersNoOpen Scheduling, Background Procedures Procedure NamePriorityDate/TimeAssociated DiagnosisCommentsPOCT URINALYSIS FMYCDYDTZdlszyy15/22/2025 4:00 PM EST Third trimester ([facility]) 30 weeks gestation of ([facility]) MYJOMTHLTayegic63/21/2025 10:55 PM EST URINE CULTURE - RACWOwjvcqy06/21/2025 10:45 PM EST [facility]A (CLEAN/CATCH) [facility]/MICRO IF IND.Sqgifof5305/30/2025 10:45 PM EST CULTURE, URINE, PVTROAPKiabtbx97/21/2025 10:45 PM EST US OB BPP W NON-SUXTND4505/28/2025 11:24 PM EST URINE CULTURE - ZXNGVerbgka72/19/2025 12:44 PM EST CULTURE, URINE, LYZKWUZYfvvrrt14/19/2025 12:44 PM EST US OB BPP W NON-GAPNAF7905/21/2025 8:39 PM EST POCT URINALYSIS DQHMXXRTSbqhdbk38/09/2025 2:51 PM EST 28 weeks gestation of ([facility]) Third trimester ([facility]) US OB BPP W NON-CKJGKF8705/14/2025 7:38 PM EST URINARY TRACT INFECTION (HTRX)Ldbzgte3704/27/2025 12:15 PM EST POCT URINALYSIS CKEMXMBKZeyfnfu61/18/2025 9:55 AM EST 25 weeks gestation of ([facility]) US OB IXTCUQCO79/06/2025 8:24 AM EST POCT URINALYSIS PYPUAGBMIrxnrjq02/30/2025 2:07 PM EDT Second trimester ([facility]) ALPHA FETOPROTEIN, TUMOR TQODMTRqtgmun06/30/2025 10:01 AM EDT DIABETIC RETINOPATHY SCREENING - OU - BOTH HCAKAemwdqe66/21/2025 12:15 PM EDT CULTURE, URINE, LNIAMJGMfidxnu79/15/2025 8:04 AM EDT Missed menses POCT URINALYSIS RBUDRXVHTsulvtr77/14/2025 9:03 AM EDT 20 weeks gestation of ([facility]) URINE CULTURE, AKPZKRWSlruasb47/11/2025 7:28 AM EDT [facility] URINE MICROSCOPIC XJYJPjmtmoy22/11/2025 7:28 AM EDT MXAMUARPHtvzcqt41/11/2025 7:28 AM EDT [facility] UA (CLEAN/CATCH) [facility]/MICRO IF IND.Tvflaop5703/20/2025 7:28 AM EDT HEMOGLOBIN S0IPltqkvh26/08/2025 10:24 AM EDTMICROALBUMIN / CREATININE URINE DLFQVFahlbmo85/20/2025 from Last 3 Months or Most Recently [...] Location / LateralityCollection Method / VolumeCollection TimeReceived NbonTdram53/22/2025 4:00 PM EST Narrative Authorizing ProviderResult TypeResult StatusCorey Kiley DOPOINT OF CARE TEST ENTER/EDIT ORDERABLESFinal Result * AMNISURE (05/30/2025 10:55 PM EST) Only the most recent of2 resultswithin the time period is included. ComponentValueRef RangeTest MethodAnalysis TimePerformed AtPathologist Signature [facility] AMNISURENEGATIVENEGATIVETBHSpecimen (Source)Anatomical Location / Laterality Collection Method / VolumeCollection TimeReceived Time05/30/2025 10:55 PM EST 05/30/2025 11:09 PM EST Narrative [facility] - 05/30/2025 11:21 PM EST Authorizing ProviderResult TypeResult StatusCorey Kiley DOLAB BLOOD ORDERABLES Final ResultPerforming OrganizationAddressCity/State/ZIP CodePhone Number [facility] * URINE CULTURE - [facility] (05/30/2025 10:45 PM EST) Only the most recent of2 resultswithin the time period is included. ComponentValueRef RangeTest MethodAnalysis TimePerformed AtPathologist Signature URINE CULTURE - FR ??Urine Culture - [facility] RESULT^[facility] RESULT TBHURINE CULTURE - FRMCSEEN SEE SCANNED REPORT, NORMAL^SEE SCANNED REPORT, NORMALTBHSpecimen (Source)Anatomical Location / LateralityCollection Method / VolumeCollection TimeReceived Time05/30/2025 10:45 PM EST05/30/2025 11:09 PM EST Narrative [facility] - 06/02/2025 12:29 PM EST Authorizing ProviderResult TypeResult StatusCorey Kiley DOLAB BLOOD ORDERABLES Final ResultPerforming OrganizationAddressCity/State/ZIP CodePhone Number [facility] * (ABNORMAL) [facility] UA (CLEAN/CATCH) [facility]/MICRO IF IND. (05/30/2025 10:45 PM EST) Only the most recent of2 resultswithin the time period is included. ComponentValueRef RangeTest MethodAnalysis TimePerformed AtPathologist Signature COLOR URINELT. YELLOWYELLOWTBHCLARITY URINECLEARCLEARTBHSPECIFIC GRAVITY URINE >=1.030(A)1.005 - 1.025TBHPH URINE6.05.0 - 9.0TBHPROTEIN TAZXC544(A)NEG/TRACE mg/dLTBHGLUCOSE URINE UA250(A)NEGATIVE mg/dLTBHBILIRUBIN URINENEGATIVENEGATIVE TBHKETONES URINETRACE(A)NEGATIVE mg/dLTBHBLOOD URINENEGATIVENEGATIVETBHNITRITE URINENEGATIVENEGATIVETBHUROBILINOGEN URINE0.20.2 - 1.0 EU/dLTBHLEUKOCYTE ESTERASE URINETRACE(A)NEGATIVETBHURINE MICROSCOPIC INDICATEDYESTBHSpecimen (Source)Anatomical Location / LateralityCollection Method / VolumeCollection TimeReceived Time05/30/2025 10:45 PM EST05/30/2025 11:09 PM EST Narrative [facility] - 05/30/2025 11:15 PM EST Authorizing ProviderResult TypeResult StatusCorey Kiley DOCLINISYNCFinal Result Performing OrganizationAddressCity/State/ZIP CodePhone Number [facility] * Urine culture (05/30/2025 10:45 PM EST) Only the most recent of3 resultswithin the time period is included. ComponentValueRef RangeTest MethodAnalysis TimePerformed AtPathologist Signature [facility] NOTE <9,000 colonies/ml mixed ?bacterial skin contaminants ?2 Days 06/02/2025 11:14 AM ESTBucy[facility] CtrSpecimen (Source)Anatomical Location / LateralityCollection Method / VolumeCollection TimeReceived Time Clean-Voided Midstream (Clean Void Midstream)05/30/2025 10:45 PM EST05/31/2025 12:59 PM EST Narrative [facility] - 06/02/2025 11:14 AM EST Diagnosis: leaking fluid Comment: Authorizing ProviderResult TypeResult StatusCorey Kiley DOLAB MICROBIOLOGY - GENERAL ORDERABLESFinal ResultPerforming OrganizationAddressCity/State/ZIP Code Phone Number [facility] [address] [place] [address], [facility] [address] [place] [address] * OB BPP W NON-STRESS (05/28/2025 11:24 PM EST) Only the most recent of3 resultswithin the time period is included. Anatomical RegionLateralityModalityOtherSpecimen (Source)Anatomical Location / LateralityCollection Method / VolumeCollection TimeReceived Time05/28/2025 11:24 PM EST Narrative 05/28/2025 11:27 PM EST [facility] ?[address] ? [place] [address] ? Ultrasound Report ? Signed ? Patient: KAELYN BANKS ?MR#: [id number] ?? : 2000 ?Acct:[id number] ?? Age/Sex: 25 / F ?ADM Date: 05/28/25 ?? Loc: US ? Attending Dr: Bryant Cao D.O. ? Ordering Physician: Bryant Cao D.O. ?? Date of Service: 05/28/25 ?? Procedure(s): US OB BPP w non-stress ?? Accession Number(s): [id number] ? cc: Bryant Cao D.O.; JOAQUÍN DILLON ? [facility] ? [address] ? [place] [address] ? Patient Name: ?? KAELYN BANKS ? MRN: [id number] ? date: 2000 ?Sex: F ?? Assigned Patient Location: ?? Current Patient Location: US ?? Accession/Order Number: [id number] ?? Exam Date: 05/28/2025 ??16:19 ?Report Date: [...] M.D. ??05/28/2025 11:24 PM ? Dictation Location: [facility] ? Electronically authenticated by: [id number] ??Y ?? Date: 05/28/2025 ??23:24 ? Dictated By: ?Prashanth Orta M.D. ? Signed By: ?05/28/25 2327 ? DD/ 2324 ? TD/TT: ? Thread Weaver: Procedure Note Radiology, Radiologist, MD - 05/28/2025 [place] [address] Ultrasound Report Signed Patient: KAELYN BANKS MMR#: [id number] : 2000Acct:[id number] Age/Sex: 25 / FADM Date: 05/28/25 Loc: US Attending Dr: Bryant Cao D.O. Ordering Physician: Bryant Cao D.O. Date of Service: 05/28/25 Procedure(s): US OB BPP w non-stress Accession Number(s): [id number] cc: Bryant Cao D.O.; JOAQUÍN DILLON [place] [address] Patient Name: KAELYN BANKS MRN: [id number] date: 2000 Sex: F Assigned Patient Location: Current Patient Location: [place] Accession/Order Number: [id number] Exam Date: 05/28/2025 16:19 Report Date: 05/28/2025 [...] Orta M.D. 05/28/2025 11:24 PM Dictation Location: [place] [address] Electronically authenticated by: [id number] Y Date: 3:24 Dictated By: Prashanth Orta M.D. Signed By:05/28/252326 DD/ 23 TD/TT: Thread Weaver: Authorizing ProviderResult TypeResult StatusCorey Kiley DOCLINISYNC IMAGINGFinal Result * URINARY TRACT INFECTION (HTRX) (04/27/2025 12:15 PM EST)ComponentValueRef RangeTest MethodAnalysis TimePerformed AtPathologist SignatureACINETOBACTFRANSISCA AGUILAENFIVWFO071.961 - 24.689 ppm04/28/2025 6:33 AM ESTHealthTrackRx at [facility] ACINETOBACTER EDMUNDONot Qfabndrr75.961 - 24.689 ppm04/28/2025 6:33 AM EST [facility] at LabPortCITROBACTER PWSUHHRS014.000 - 32.015 ppm04/28/2025 6:33 AM ESTHealthTrackRx at LabPortCITROBACTER FREUNDIINot Keqbvtoy86.000 - 32.015 ppm04/28/2025 6:33 AM ESTHealthTrackRx at LabPortENTEROBACTER AEROGENES, CCUGFPC747.000 - 32.290 ppm04/28/2025 6:33 AM ESTHealthTrackRx at LabPortENTEROBACTER AEROGENES, CLOACAENot Pgzwxdhr50.000 - 32.290 ppm 04/28/2025 6:33 AM ESTHealthTrackRx at LabPortENTEROCOCCUS FAECALIS, FAECIUM0 26.000 - 33.043 ppm04/28/2025 6:33 AM ESTHealthTrackRx at LabPortENTEROCOCCUS FAECALIS, FAECIUMNot Zqlwcdpa84.000 - 33.043 ppm04/28/2025 6:33 AM EST [facility] at LabPortESCHERICHIA YLJD538.000 - 28.500 ppm04/28/2025 6:33 AM ESTHealthTrackRx at LabPortESCHERICHIA COLINot Hxjbhsog18.000 - 28.500 ppm 04/28/2025 6:33 AM ESTHealthTrackRx at LabPortKLEBSIELLA PNEUMONIAE, OXYTOCA0 23.000 - 31.865 ppm04/28/2025 6:33 AM ESTHealthTrackRx at LabPortKLEBSIELLA PNEUMONIAE, OXYTOCANot Qwcrjdts35.000 - 31.865 ppm04/28/2025 6:33 AM EST [facility] at LabPortMORGANELLA VPPPAIET396.961 - 24.689 ppm04/28/2025 6:33 AM ESTHealthTrackRx at LabPortMORGANELLA MORGANIINot Oboxwkyt79.961 - 24.689 ppm04/28/2025 6:33 AM ESTHealthTrackRx at LabPortPROTEUS MIRABILIS, VULGARIS0 23.000 - 28.500 ppm04/28/2025 6:33 AM ESTHealthTrackRx at LabPortPROTEUS MIRABILIS, VULGARISNot Ukxdxwch16.000 - 28.500 ppm04/28/2025 6:33 AM EST [facility] at LabPortPSEUDOMONAS PTVACZEQDV562.000 - 31.801 ppm04/28/2025 6:33 AM ESTHealthTrackRx at LabPortPSEUDOMONAS AERUGINOSANot Lpzboovb87.000 - 31.801 ppm04/28/2025 6:33 AM ESTHealthTrackRx at LabPortSTAPHYLOCOCCUS AUREUS0 26.000 - 31.595 ppm04/28/2025 6:33 AM ESTHealthTrackRx at [facility] STAPHYLOCOCCUS AUREUSNot Azinnvkd01.000 - 31.595 ppm04/28/2025 6:33 AM EST [facility] at LabPortSTREPTOCOCCUS AGALACTIAE (GROUP B STREP)026.000 - 32.435 ppm04/28/2025 6:33 AM ESTHealthTrackRx at LabPortSTREPTOCOCCUS AGALACTIAE (GROUP B STREP)Not Xuyehrfa15.000 - 32.435 ppm04/28/2025 6:33 AM ESTHealthTrackRx at LabPortCANDIDA ALBICANS, PARAPSILOSIS, SCCBKRJHSD779.000 - 30.347 ppm04/28/2025 6:33 AM ESTHealthTrackRx at LabPortCANDIDA ALBICANS, PARAPSILOSIS, TROPICALISNot Funxnejp96.000 - 30.347 ppm04/28/2025 6:33 AM EST [facility]PortCANDIDA YRHWEFML154.000 - 31.618 ppm04/28/2025 6:33 AM ESTHealthTrackRx at LabPortCANDIDA GLABRATANot Frnretpe03.000 - 31.618 ppm 04/28/2025 6:33 AM ESTHealthTrackRx at LabPortCANDIDA JSEGTS773.000 - 30.873 ppm04/28/2025 6:33 AM ESTHealthTrackRx at LabPortCANDIDA KRUSEINot Detected 23.000 - 30.873 ppm04/28/2025 6:33 AM ESTHealthTrackRx at LabPortSERRATIA BNJAXOTFBM175.000 - 31.581 ppm04/28/2025 6:33 AM ESTHealth[facility]Rx at [facility] SERRATIA MARCESCENSNot Pjokoqkf93.000 - 31.581 ppm04/28/2025 6:33 AM EST [facility] at LabPortSTREPTOCOCCUS PYOGENES (GROUP A STREP)019.961 - 24.689 ppm04/28/2025 6:33 AM ESTHealth[facility]Rx at LabPortSTREPTOCOCCUS PYOGENES (GROUP A STREP)Not Qovuhzev70.961 - 24.689 ppm04/28/2025 6:33 AM [facility]Community [facility] HealthSTAPHYLOCOCCUS EPIDERMIDIS, HAEMOLYTICUS, LUGDUNENSIS, SAPROPHYTICUS (LAFCO509.961 - 24.689 ppm04/28/2025 6:33 AM [facility] STAPHYLOCOCCUS EPIDERMIDIS, HAEMOLYTICUS, LUGDUNENSIS, SAPROPHYTICUS (URINANot Jhajmhvd38.961 - 24.689 ppm04/28/2025 6:33 AM [facility] STAPHYLOCOCCUS EPIDERMIDIS, HAEMOLYTICUS, LUGDUNENSIS, SAPROPHYTICUS (URINA0 19.961 - 24.689 ppm04/28/2025 6:33 AM [facility] STAPHYLOCOCCUS EPIDERMIDIS, HAEMOLYTICUS, LUGDUNENSIS, SAPROPHYTICUS (URINANot Dosdizni69.961 - 24.689 ppm04/28/2025 6:33 AM [facility] Specimen (Source)Anatomical Location / LateralityCollection Method / Volume Collection TimeReceived VaqwZeqav71/18/2025 12:15 PM EST04/28/2025 1:31 AM EST Narrative Authorizing ProviderResult TypeResult StatusCorey Kiley DOLAB BLOOD ORDERABLES Final ResultPerforming OrganizationAddressCity/State/ZIP CodePhone Number [facility] [address] [place] [address] * US OB PLACENTA (04/15/2025 8:24 AM EST)Anatomical RegionLateralityModality OtherSpecimen (Source)Anatomical Location / LateralityCollection Method / VolumeCollection TimeReceived Time04/15/2025 8:24 AM EST Narrative 04/15/2025 8:27 AM EST [facility] ?[address] ? [place] [address] ? Ultrasound Report ? Signed ? Patient: DARREN,KIERSTAN P M ?MR#: [id number] ?? : 2000 ?Acct:[id number] ?? Age/Sex: 25 / F ?ADM Date: ?? Loc: [facility] ??250-1 ? Attending Dr: Bryant Cao D.O. ? Ordering Physician: Bryant Cao D.O. ?? Date of Service: 04/14/25 ?? Procedure(s): US OB placenta ?? Accession Number(s): [id number] ? cc: Bryant Cao D.O.; JOAQUÍN DILLON ? [facility] ? [address] ? [place] [address] ? Patient Name: ?? KAELYN BANKS ? MRN: [facility]:[id number] ? date: 2000 ?Sex: F ?? Assigned Patient Location: [facility] ?? Current Patient Location: ? Accession/Order Number: [id number] ?? Exam Date: 04/14/2025 ??13:27 ?Report Date: 04/15/2025 ??08:24 ? At the request of: ?? BRYANT ??KILEY ??DO ? Procedure: ??US OB placenta ? ULTRASOUND OB PLACENTA ? CLINICAL DATA: patient in [facility] ? COMPARISON: None ? There [...] M.D. ??04/15/2025 8:24 AM ? Dictation Location: [facility]--02 ? Electronically authenticated by: [id number] ??Y ?? Date: 04/15/2025 ??08:24 ? Dictated By: ?Angela Lo M.D. ? Signed By: ?04/15/25 08 ? DD/ 0824 ? TD/TT: ? Thread Weaver: Procedure Note Radiology, Radiologist, MD - 04/15/2025 [place] [address] Ultrasound Report Signed Patient: KAELYN BANKS MMR#: [id number] : 2000Acct:[id number] Age/Sex: 25 / FADM Date: Loc: [facility] 250-[address]: Bryant Cao D.O. Ordering Physician: Bryant Cao D.O. Date of Service: 04/14/25 Procedure(s): US OB placenta Accession Number(s): [id number] cc: Bryant Cao D.O.; JOAQUÍN DILLON The [place] [address] Patient Name: KAELYN BANKS MRN: [id number] date: 2000 Sex: F Assigned Patient Location: [facility] Current Patient Location: Accession/Order Number: [id number] Exam Date: 04/14/2025 13:27 Report Date: 04/15/2025 [...] Lo M.D. 04/15/2025 8:24 AM Dictation Location: [place] [address] Electronically authenticated by: [id number] Y Date: 508:24 Dictated By: Angela Lo M.D. Signed By:04/15/25826 DD/ 3 TD/TT: Thread Weaver: Authorizing ProviderResult TypeResult StatusCorey Kiley DOCLINISYNC IMAGINGFinal Result * (ABNORMAL) AFP tumor marker (04/08/2025 10:01 AM EDT)ComponentValueRef Range Test MethodAnalysis TimePerformed AtPathologist SignatureALPHA JRTNXCNUQHV91.3 (H)<=9.9 ng/mLPROMEDICAComment: ?? PERFORMED AT [facility] [address],[place] [address] Specimen (Source)Anatomical Location / LateralityCollection Method / [...] ROUTINELess than 10,000 colonies/mLTBHURINE CULTURE, ROUTINEPerformed at: [facility]3]TBHURINE CULTURE, [id number] [place], [place] [id number] CULTURE, ROUTINELab Director: Chaka Almanzar PhD, Phone: [phone] Specimen (Source)Anatomical Location / LateralityCollection Method / Volume Collection TimeReceived Time03/20/2025 7:28 AM EDT1 7:35 AM EDT Narrative [facility] - 03/22/2025 12:10 AM EDT Authorizing ProviderResult TypeResult StatusCorey Kiley DOL BLOOD ORDERABLES Final ResultPerforming OrganizationAddressCity/State/ZIP CodePhone Number [...] DOCLINISYNCFinal Result Performing OrganizationAddressCity/State/ZIP CodePhone Number [facility] * Microalbumin / creatinine urine ratio (10/27/2024)ComponentValueRef RangeTest MethodAnalysis TimePerformed AtPathologist SignatureMICROALBUMIN, URINE10.2 Specimen (Source)Anatomical Location / LateralityCollection Method / Volume Collection TimeReceived TimeUrineUrine specimen obtained by clean catch procedure / Vetqasj8510/27/2024 Narrative Authorizing ProviderResult TypeResult StatusFirelands Physician GroupLAB URINE ORDERABLESFinal Result from Last 3 Months or Most Recently Relevant to Health Maintenance Additional Health Concerns Active ProblemsNoted DateDiagnosed DateOB Wsdqrmnai98/24/2025 Insurance Care Teams Team MemberRelationshipSpecialtyStart DateEnd Date Joaquín Dillon DO [address] [address] PCP - GeneralFamily Medicine10/22/22 Joaquín Dillon DO [address] [address] PCP - Medical [place] Egtdlutovp45/1/
== END 2025-06-04 20:03 | disposition home or self-care (01) ==
LOC: US 18:47 → FBC 18:50
PROVIDERS: PCP Family Medicine; Visit Provider Obstetrics & Gynecology
DX: O24.419 Gestational diabetes mellitus in pregnancy, unspecified control (principal); Z3A.31 31 weeks gestation of pregnancy
CPT/HCPCS: 59025; 76818

== ENCOUNTER 2025-06-08 18:43 | Outpatient (OUT) | payer OTHER, BC, SELFPAY ==
--- OUTSIDE RECORDS SUMMARY | 2025-05-31 15:30 | XMS_ITS | Encounter Summary ---
Author Organization [facility] Address [address] [place] [address] Care Team Providers Care Telegraph Repeater Installer Name Role Phone Dru Rodriguez DO Primary Care Provider [phone] Dru Rodriguez DO Unavailable [phone] Reason for Visit * ReasonCommentsRoutine Visit Encounter Details DateTypeDepartmentCare Team (Latest Contact Info)Yfzcuxjggiw59/22/2025 3:30 PM ESTRoutine [facility] [address] [place] [phone] Kolton Cao DO [address] [place], [facility] Third trimester ([facility]); 30 weeks gestation of ([facility]) Social History Tobacco UseTypesPacks/DayYears UsedDateSmoking Tobacco: NeverSmokeless [...] relatives?Twice a week03/11/2023How often do you attend baptism or gnosticism services?1 to 4 times per year03/11/2023o you belong to any clubs or organizations such as baptism groups, unions, fraRenew Fibre or athletic laura ups, or school groups?No03/11/2023How often do you attend meetings of the clubs or organizations you belong to?Never03/11/2023re you , , , , never , or living with a partner?Tyfgnkc8503/11/2023 AUDIT-CAnswerDate RecordedQ1: How often do you have a drink containing alcohol? Monthly or less03/11/2023Q2: How many drinks containing alcohol do you have on a typical day when you are drinking?3 or Q3: How often do you have six or more drinks on one occasion?Less than pcspdcx9003/11/2023Overall Financial Resource Strain (CARDIA)AnswerDate RecordedHow hard is it for you to pay for the very basics like food, housing, medical care, and heating?Somewhat hard 03/11/2023HQ-2AnswerDate RecordedPatient Health Questionnaire-2 Score0 03/25/2025Finriverton hospital [place] of Occupational Health - Occupational Stress QuestionnaireAnswerDate [...] place to sleep or slept in [facility] (including now)?No03/11/2023Estimated Date of AigawhlpAfxkhxeoJok13/27/2026Based on last menstrual period of 10/30/2024Sex and Gender InformationValueDate RecordedSex Assigned at LeisbXcpnbw37/01/2023 1:10 PM EDTLegal HvhUehibk36/15/2023 6:51 PM EDTGender OoejixomSumvro25/01/2023 1:10 PM EDTSexual QgkxjygwnkfBtqmfipg93/01/2023 1:10 PM EDTdocumented as of this encounter Last Filed Vital Signs Vital SignReadingTime TakenCommentsBlood Kebgqxrq342/7405/31/2025 3:50 PM EST Pulse--Temperature--Respiratory Rate--Oxygen Saturation--Inhaled Oxygen Concentration--Mivjyh88.2 kg (172 lb 6.4 oz)05/31/2025 3:50 PM ESTHeight--Body Mass Index36.031 8:46 AM EDTdocumented in this encounter Progress Notes * Kolton Cao DO - 05/31/2025 3:30 PM EST Reason for Appointment: Patient ID: Dalia Shaw is a 25 y.o. female who presents for Routine Visit Patient presents today for Return OB appointment. Current Medications: has a current medication list which includes the following prescription(s): ketone test, aspirin, baqsimi one pack, cholecalciferol, dexcom g6 transmitter, dexcom g7 sensor, doxylamine, humalog, omnipod 5 cduo6j3 pods gen 5, lantus solostar, ondansetron odt, onetouch ultra test, vit w/rn-qyknobpne-kt, promethazine, and pyridoxine. Medical History: Active Ambulatory Problems Diagnosis Date Noted Bulging lumbar disc 11/08/2022 Chronic fatigue 11/08/2022 Lumbago with sciatica, left side 11/08/2022 Sciatica 11/08/2022 Celiac disease in pediatric patient (HCC) 05/23/2016 Generalized anxiety disorder 01/01/2017 Mild intermittent asthma ([facility]) 05/23/2016 Panic disorder without agoraphobia 01/01/2017 Biliary dyskinesia 11/08/2022 Type 1 diabetes mellitus without complications ([facility]) 02/04/2023 Type 1 diabetes mellitus with hypoglycemia and without coma ([facility]) 02/04/2023 PTSD (post-traumatic stress disorder) 09/06/2023 Mixed obsessional thoughts and acts 09/13/2023 Diabetes type 1, controlled ([facility]) 01/25/2011 Hypoglycemia associated with diabetes ([facility]) 03/09/2025 Resolved Ambulatory Problems Diagnosis Date Noted Blood blister 11/08/2022 Diabetic ketoacidosis associated with type 1 diabetes mellitus ([facility]) 02/22/2017 Hypoglycemia due to type 1 diabetes mellitus (HCC) 11/08/2022 Other chronic pain 11/08/2022 Type 1 diabetes mellitus with ketoacidosis without coma ([facility]) 08/01/2016 Acute renal insufficiency 02/18/2017 Mechanical breakdown of insulin pump 02/18/2017 Right upper quadrant pain 11/08/2022 Chronic cholecystitis 11/29/2022 Past Medical History: Diagnosis Date Awareness under anesthesia 2014 covid and DKA 05/2021 Exercise-induced asthma (HCC) Lactose intolerance Postoperative wound infection Type 1 diabetes mellitus without complication ([facility]) Family History[1] Social History Tobacco Use Smoking status: Never Smokeless tobacco: Never Vaping Use Vaping status: Never Used Substance Use Topics Alcohol use: Not Currently Comment: Socially Drug use: Yes Frequency: 2.0 times per week Types: Marijuana Comment: Has not used any drugs other than those for medical reasons for the past 12 months Surgical History[2] Allergies[3] Review of Systems: Review of Systems Constitutional: Negative. HENT: Negative. Eyes: Negative. Respiratory: Negative. Cardiovascular: Negative. Gastrointestinal: Negative. Genitourinary: Negative. Musculoskeletal: Negative. Skin: Negative. Neurological: Negative. All other systems reviewed and are negative. Hematological: Negative. Endocrine: Negative. Allergic/Immunologic: Negative. Objective Physical Exam Constitutional: Appearance: Normal appearance. She [...] nursing note reviewed. Exam conducted with a national sales manager present. Vitals: Estimated body mass index is 36.03 kg/m?? as calculated from the following: Height as of 03/25/25: 4' 10 . Weight as of this encounter: 172 lb 6.4 oz. BP: 124/74 Patient's last menstrual period was 10/30/2024. Assessment/Plan Encounter Diagnosis: ICD-10-CM 1. Third trimester ([facility]) Z34.93 POCT urinalysis dipstick manually resulted 2. 30 weeks gestation of ([facility]) Z3A.30 POCT urinalysis dipstick manually resulted Return OB: Patient presents today for a routine obstetrics appointment. Patient is currently 30w4d . Patient states she is doing well but has complaints of being tired due to current . Patient has verbalizes frequent movement. labor precautions was discussed/given and patient was instructed to perform kick counts three times a day. Orders Placed This Encounter Procedures POCT urinalysis dipstick manually resulted Follow Up: Patient is to return to office in 2 week for routine OB appointment. Documented by Kolton Cao DO on behalf of: Kolton Cao DO [1] Family History Problem Relation Name Age of Onset Drug abuse Mother Mary Melendez Asthma Father Bryan Melendez Arthritis Father Bryan Melendez Stroke Paternal Grandfather Cancer Other Stroke Other Stroke Maternal Grandmother Jackie Ramirez Diabetes Sister Pj Melendez [2] Past Surgical History: Procedure Laterality Date CHOLECYSTECTOMY 11/2022 COLONOSCOPY 2016 normal EGD 2013 normal [3] Allergies Allergen Reactions Amoxicillin Anaphylaxis Mouth irritation Penicillins Anaphylaxis Has since taken without reaction documented in this encounter Plan of Treatment DateTypeDepartmentCare Team (Latest Contact Info)Mneorrrfvxg78/07/2026 4:00 PM ESTRoutine [facility] [address] [place] [phone] Dixie Gan, MOLECULAR BIOLOGIST [address] [place] [phone] 06/30/2025 3:50 PM ESTRoutine [facility] [address] [place] [phone] Kolton Cao DO [address] [place], [place] [phone] documented as of this encounter Goals GoalPatient Goal TypeAssociated ProblemsRecent ProgressPatient-Stated?Author Reminders Care PlanOB RemindersNoOpen Scheduling, Backgrounddocumented as of this encounter Procedures Procedure NamePriorityDate/TimeAssociated DiagnosisCommentsPOCT URINALYSIS NYDRFIIZMtitagk32/22/2025 4:00 PM EST Third trimester ([facility]) 30 weeks gestation of ([facility]) documented in this encounter Results * (ABNORMAL) POCT urinalysis dipstick manually resulted (05/31/2025 4:00 PM EST) ComponentValueRef RangeTest MethodAnalysis TimePerformed AtPathologist SignatureColor, UAYellowClarity, UAClearGlucose, UANegativeNegative - 1999(110) ++++ mg/dLBilirubin, UANegativeNegative - 4(70) +++ mg/dLKetones, UA PositiveNegative - 160(16) ++++ mg/dLSpec Grav, UA1.0251 - 1.03Blood, UA PositiveNegative - 50 Guy/mcLpH, UA6.05 - 9Protein, UAPositiveNegative - 2000(20) ++++ mg/dLUrobilinogen, UA1.00.2 - 12 mg/dLLeukocytes, UAPositive Negative - 500+++ Danny/mcLNitrite, UANegativeNegative - PositiveSpecimen (Source)Anatomical Location / LateralityCollection Method / VolumeCollection TimeReceived VjjrCnfjx45/22/2025 4:00 PM EST Narrative Authorizing ProviderResult TypeResult StatusCorey Kiley DOPOINT OF CARE TEST ENTER/EDIT ORDERABLESFinal Result documented in this encounter Visit Diagnoses Diagnosis Third trimester ([facility]) state, incidental 30 weeks gestation of ([facility]) documented in this encounter Additional Health Concerns Active ProblemsNoted DateDiagnosed DateOB Jcdcdkhft36/24/2025 documented as of this encounter Care Teams Team MemberRelationshipSpecialtyStart DateEnd Date Dru Rodriguez DO [address] [place] [address] PCP - GeneralFamily Medicine10/22/22 Dru Rodriguez DO [address] [place] [address] PCP - Medical [place] Drkogwpgui46/1/2312documented as of this encounter
--- OUTSIDE RECORDS SUMMARY | 2025-06-08 18:46 | XMS_ITS | Clinical Summary ---
Author Organization [facility] Healthcare Address [address] [place] [address] Care Team Providers Care Lab[address] Name Role Phone Joaquín Dillon DO Primary Care Provider [phone] Joaquín Dillon DO Unavailable Allergies Active AllergyReactionsCriticalityNoted DateCommentsAmoxicillinAnaphylaxisHigh 05/23/2016 Mouth irritation UmzdpiwfvcsHfpihonavwpRuqo20/14/2016 Has since taken without reaction Medications MedicationSigDispense QuantityRefillsLast FilledStart DateEnd DateStatus Continuous Blood Gluc Transmit (Dexcom G6 transmitter) [facility] Indications:Type 1 diabetes mellitus without complication (HCC)Inject 1 each under the skin every 3 (three) months. Use as instructed 1 each 3Active insulin glargine (Lantus SoloStar) 100 UNIT/ML pen Indications:Type 1 diabetes mellitus without complication (HCC)inject 22 units subcutaneously once daily 3 mL 4Active Insulin Disposable Pump (Omnipod 5 LezQ3V7 Pods Gen 5) misc Indications:Type 1 diabetes mellitus without complication (HCC)Inject 1 each under the skin every 3 (three) days CHANGE POD EVERY 3 DAYS DIRECTED 30 each 5Active HumaLOG 100 UNIT/ML solution Indications:Type 1 diabetes mellitus without complication (HCC)USE PER INSULIN PUMP INSTRUCTION MAX OF 80 UNITS DAILY 30 mL 5Active Vit w/Xm-Ihoxeznbo-ER (PNV PO) Take by mouthActive Acetone, Urine, Test (Ketone Test) strip check urine FOR ketones with blood glucose greater THAN 250 mg/dLActive aspirin 81 MG EC tablet Take 81 mg by mouth in the morning.5Active cholecalciferol (Vitamin D-3) 1.25 MG (69605 UT) capsule every week5Active Continuous Glucose Sensor (Dexcom G7 Sensor) misc USE WITH OMNIPOD 5 TO MANAGE BLOOD SUGARS AND CHANGE EVERY 10 DAYS01/21/2025 Active doxylamine (Unisom) 25 MG tablet Take 25 mg by mouth 4 (four) times a day as houkty9901/08/2025tive Baqsimi One Pack 3 MG/DOSE nasal powder Use to treat unresponsive qwakchfwnvvo13/11/2025tive OneTouch Ultra Test test strip USE 1 STRIP TO CHECK GLUCOSE 4 TIMES DAILY10/14/2024tive ondansetron ODT (Zofran-ODT) 4 MG disintegrating tablet DISSOLVE 1 TABLET UNDER THE TONGUE EVERY 8 HOURS NEEDED FOR NAUSEA for up to 10 doses01/08/2025tive promethazine (Phenergan) 25 MG tablet Take 25 mg by mouth every 6 (six) hours if ytcbwo7601/08/2025tive pyridoxine (Vitamin B-6) 100 MG tablet Take 100 mg by mouth in the morning.Active Active Problems ProblemNoted DateDiagnosed DateHypoglycemia associated with pbuqbsps11/30/2025 Mixed obsessional thoughts and acts4PTSD (post-traumatic stress disorder)09/06/2023Type 1 diabetes mellitus without lwlwxbiumiuze40/28/2023 Assessment & Plan (03/11/2024 7:46 PM EDT): [...] with hypoglycemia and without coma02/04/2023ulging lumbar disc11/08/2022hronic xzawbwd9911/08/2022Lumbago with sciatica, left side 11/08/20223504Iqshneja77/01/2023iliary herzzidnwq30/01/2023eneralized anxiety dpohpnpm02/25/2017Panic disorder without /25/2017Celiac disease in pediatric nswingn5205/23/2016Mild intermittent tzhabh5205/23/2016Diabetes type 1, bryfhvdbdr64/18/2011Estimated Date of AvnjqyotYemukdekBjc65/27/2026ased on last menstrual period of 10/30/2024 Resolved Problems ProblemNoted DateDiagnosed DateResolved DateChronic lgtygurcmvsos60/22/2023 08/05/2023lood pwjjapv08Hypoglycemia due to type 1 diabetes aucoggub53Other chronic painRight upper quadrant painiabetic ketoacidosis associated with type 1 diabetes piwauhzn54cute renal zcwrzyuoxanmb89/11/2017 08/05/2023Mechanical breakdown of insulin pumpType 1 diabetes mellitus with ketoacidosis without coma Encounters DateTypeDepartmentCare HilsLeumydnqifz95/29/2025Telephone [facility] [address] [place] [address] Katja Swanson LPN 06/07/2025bstract [facility] [address] [place] [address] Bryant Cao, DO 06/06/2025bstract [facility] [address] [place] [phone] Joaquín Dillon, DO 06/04/2025linisync Result Encounter [facility] External Department Unsolicited Bryant Cao, DO 05/31/2025 3:30 PM ESTRoutine [facility] [address] [place] [address] Bryant Cao, DO Third trimester ([facility]); 30 weeks gestation of ([facility])05/31/2025bstract [facility] [address] [place] [phone] Joaquín Dillon, DO 05/30/2025External Result Encounter [facility] External Department Unsolicited Bryant Cao, DO 05/30/2025linisync Result Encounter [facility]OM[facility] External Department Unsolicited Bryant Cao, DO 05/28/2025External Result Encounter [facility] External Department Unsolicited Bryant Cao, DO 5Clinisync Result Encounter [facility]OM[facility] External Department Unsolicited KileyBryant, DO 05/28/2025Telephone [facility] [address] [place] [address] Bryant Cao, DO 05/21/2025linisync Result Encounter [facility] External Department Unsolicited Bryant Cao, DO 05/18/2025 2:40 PM ESTRoutine [facility] [address] [place] [address] Katharine Cummins PA 28 weeks gestation of ([facility]); Type 1 diabetes mellitus during , antepartum ([facility]); Third trimester ([facility])5Bamboo flowsheet [facility] [address] [place] [address] Katharine Cummins PA 05/14/2025linisync Result Encounter [facility] External Department Unsolicited Bryant Cao, DO 05/12/2025Telephone [facility] [address] [place] [address] Nicolasa Bailey MA 04/27/2025 9:40 AM ESTRoutine [facility] [address] [place] [address] Bryant Cao DO Hospital discharge follow-up; Second trimester ([facility]); 25 weeks gestation of ([facility]); UTI uhguwatu67/18/2025amboo flowsheet [facility] [address] [place] [address] Bryant Cao DO 04/26/2025Patient Outreach [facility] [address] [place] [address] Patria Woods LPN 04/26/2025Telephone [facility] [address] [place] [address] Stella Webb MA 04/23/2025Telephone [facility] [address] [place] [address] Cindi Jacinto LPN 04/15/2025linisync Result Encounter NOMS External Department Unsolicited Bryant Cao, DO 04/14/2025bstract [facility] [address] [place] [address] Bryant Cao, 04/08/2025 1:50 PM EDTRoutine [facility] [address] [place] [address] Katharine Cummins PA Second trimester ([facility]); 22 weeks gestation of ([facility]); Yeast riyyzpwzs43/30/2025Patient Outreach [facility] [address] [place] [phone] Aline Dudley, BRANDT 03/30/2025Orders Only [facility] [address] [place] [phone] Kristopher Calvo, OD 03/25/2025 8:45 AM EDTOffice Visit [facility] [address] [place] [address] Joaquín Dillon, DO Routine general medical examination at a health care facility (Primary Dx); Generalized anxiety disorder; Celiac disease in pediatric patient ([facility]); Mild intermittent asthma, unspecified whether complicated ([facility])03/25/2025Orders Only [facility] [address] [place] [address] Joaquín Dillon, DO 03/25/2025Telephone [facility] [address] [place] [address] Lesa Boss LPN 03/25/2025amboo flowsheet [facility] [address] [place] [address] Joaquín Dillon, DO 03/25/20257030Iotnfe26/14/2025 8:50 AM EDTRoutine [facility] [address] [place] [address] Bryant Cao, DO Second trimester ([facility]); 20 weeks gestation of ([facility]); Type 1 diabetes mellitus during , antepartum ([facility])03/23/2025 Abstract [facility] [address] [place] [address] Bryant Cao, 5Bamboo flowsheet [facility] [address] [facility] [place] [address] Bryant Cao, 5Clinisync Result Encounter [facility] External Department Unsolicited Bryant Cao, from Last 3 Months Immunizations ImmunizationAdministration DatesNext UngQAJ790375JJyN85/23/2004DTaP, Txoncnnarbt12/13/2006,11/24/2002,2001,2001HPV, Quadrivalent 08/27/2013,08/21/2013,04/06/2013,03/02/2013Hep B, Adolescent or Pediatric 11/24/2002,2001,2001HiB, gaoaqwoiink26/17/2003,2001,2001 Hib (PRP-T)03/02/2004IPV1,12/20/2005,2001Influenza, injectable, iunrpehzimdk95/26/2021Influenza, injectable, quadrivalent, preservative free 06/12/2023,05/11/2022Influenza, seasonal, injectable, preservative free 03/17/2025,03/18/2024MMR1,12/20/2005,11/24/2002Meningococcal MCV4P 01/22/2018,03/02/2013PPD Test06/12/2023,06/05/2023,05/18/2022,05/11/2022 Pneumococcal Conjugate PCV 7008/05/2001Polio, Luxjxstufdu21/17/2003,2001 Tdap107/31/2022,03/02/20131834Tfxkkhclh05/21/2023,03/02/2013,03/18/2008,12/20/2005 Family History Medical HistoryRelationNameCommentsArthritisFatherJohn SeamonAsthmaFatherJohn SeamonStrokeMaternal GrandmotherCynthia HicksDrug abuseMotherKristy SeamonCancer OtherStrokeOtherStrokePaternal GrandfatherDiabetesSister 2Jozlytimur SeamonRelation AwfrCpjomwKcecyeawMasnhzak5QfwuwjOdnl SeamonAliveMaternal GrandmotherCynthia HicksMotherKristy SeamonDeceasedOtherHalf BrotherPaternal GrandfatherSister 1x2 [...] often do you attend roman catholic or temple services?1 to 4 times per year03/11/2023o you belong to any clubs or organizations such as roman catholic groups, unions, fraternal or athletic laura ups, or school groups?No03/11/2023How often do you attend meetings of the clubs or organizations you belong to?Never03/11/2023re you , , , , never , or living with a partner?Thjhglw0203/11/2023 AUDIT-CAnswerDate RecordedQ1: How often do you have a drink containing alcohol? Monthly or less03/11/2023Q2: How many drinks containing alcohol do you have on a typical day when you are drinking?3 or Q3: How often do you have six or more drinks on one occasion?Less than forezjs9303/11/2023Overall Financial Resource Strain (CARDIA)AnswerDate RecordedHow hard is it for you to pay for the very basics like food, housing, medical care, and heating?Somewhat hard 03/11/2023HQ-2AnswerDate RecordedPatient Health Questionnaire-2 Score0 03/25/2025Finblue mountain hospital, inc. [place] of Occupational [facility] - Occupational Stress QuestionnaireAnswerDate [...] steady place to sleep or slept in [facility] (including now)?No3Estimated Date of TaplhwukXqyjzuxxPjk98/27/2026ased on last menstrual period of 10/30/2024Sex and Gender InformationValueDate RecordedSex Assigned at XynndTijdtx89/01/2023 1:10 PM EDTLegal WryZvfayn02/15/2023 6:51 PM EDTGender FgkvsfflQvwvfu76/01/2023 1:10 PM EDTSexual MqnwiqizzhbWyznhine86/01/2023 1:10 PM EDT Last Filed Vital Signs Vital SignReadingTime TakenCommentsBlood Qlxdkvqy247/7405/31/2025 3:50 PM EST Rplqo933603/25/2025 8:46 AM ZDGCuttrogbasy16 ??C (96.8 ??F)03/25/2025 8:46 AM EDT Respiratory Rate--Oxygen Sjoweyiesq57%03/25/2025 8:46 AM EDTInhaled Oxygen Concentration--Wlnfmv88.2 kg (172 lb 6.4 oz)05/31/2025 3:50 PM NYAHivagt539.3 cm (4' 10 )03/25/2025 8:46 AM EDTBody Mass Index36.031 8:46 AM EDT Plan of Treatment DateTypeDepartmentCare Team (Latest Contact Info)Jsoyjghwozn04/07/2026 4:00 PM ESTRoutine [facility] [address] [place] [address] Dixie Gan, OFFICE SUPPORT ASSISTANT [address] [place] [address] 06/30/2025 3:50 PM ESTRoutine [facility] [address] [place] [address] Bryant Cao DO [address] [place] [address] Health MaintenanceDue DateLast DoneCommentsPneumococcal Vaccine: Pediatrics (0 to 5 Years) and At-Risk Patients (6 to 64 Years) (1 of 2 - PCV)02/12/2020 2001Diabetes: Hemoglobin A1C61, 12/15/2024, 12/15/2024, Additional history existsDiabetes: Urine Protein Fjcckdqhe71, 11/11/2023, 11/11/2023, Additional history existsDiabetes: Retinopathy Screening , 06/30/2019Influenza SeccyltHvwqdbkwy75/08/2025, 03/18/2024, 06/12/2023, Additional history exists Goals GoalPatient Goal TypeAssociated ProblemsRecent ProgressPatient-Stated?Author Reminders Care PlanOB RemindersNoOpen Scheduling, Background Procedures Procedure NamePriorityDate/TimeAssociated DiagnosisCommentsUS OB BPP W NON-FQUGDJ8306/04/2025 9:11 PM EST POCT URINALYSIS FNORQALIBakjpoa69/22/2025 4:00 PM EST Third trimester ([facility]) 30 weeks gestation of ([facility]) DTRDJDGRRauybil67/21/2025 10:55 PM EST URINE CULTURE - CLLPKdorcxv31/21/2025 10:45 PM EST [facility] UA (CLEAN/CATCH) DIRECTOR TECHNICAL/MICRO IF IND.Nqcqyau5305/30/2025 10:45 PM EST CULTURE, URINE, LJXVKICRkoqwpf77/21/2025 10:45 PM EST US OB BPP W NON-WKGEKF4805/28/2025 11:24 PM EST URINE CULTURE - YEWDOvgbngj70/19/2025 12:44 PM EST CULTURE, URINE, ZKYYOLYZywqggd03/19/2025 12:44 PM EST US OB BPP W NON-QXSWKO4805/21/2025 8:39 PM EST POCT URINALYSIS VZURSSFNAhbsfbo93/09/2025 2:51 PM EST 28 weeks gestation of ([facility]) Third trimester ([facility]) US OB BPP W NON-PEBZQM4605/14/2025 7:38 PM EST URINARY TRACT INFECTION (HTRX)Qnrcoak7604/27/2025 12:15 PM EST POCT URINALYSIS JOHNJZLQJlwsfmf24/18/2025 9:55 AM EST 25 weeks gestation of ([facility]) US OB ZMIGCVRE07/06/2025 8:24 AM EST POCT URINALYSIS HEAODKGMUteujab66/30/2025 2:07 PM EDT Second trimester ([facility]) ALPHA FETOPROTEIN, TUMOR WYEKKCVvurlfk90/30/2025 10:01 AM EDT DIABETIC RETINOPATHY SCREENING - OU - BOTH PVEAXpjubgp97/21/2025 12:15 PM EDT CULTURE, URINE, FGTLPHCTezfkbx23/15/2025 8:04 AM EDT Missed menses POCT URINALYSIS ETYKMRKAMocztco03/14/2025 9:03 AM EDT 20 weeks gestation of ([facility]) URINE CULTURE, SASRCBAOdlzdoh76/11/2025 7:28 AM EDT [facility] URINE MICROSCOPIC VYUJFxyfmaq47/11/2025 7:28 AM EDT YPNJJONZQwaavdn21/11/2025 7:28 AM EDT [facility] UA (CLEAN/CATCH) DIRECTOR TECHNICAL/MICRO IF IND.Twgckht1003/20/2025 7:28 AM EDT HEMOGLOBIN C1KIshiaws29/08/2025 10:24 AM EDTMICROALBUMIN / CREATININE URINE HHXJLCeobtpo55/20/2025 from Last 3 Months or Most Recently Relevant to Health Maintenance Results * US OB BPP W NON-STRESS (06/04/2025 9:11 PM EST) Only the most recent of4 resultswithin the time period is included. Anatomical RegionLateralityModalityOtherSpecimen (Source)Anatomical Location / LateralityCollection Method / VolumeCollection TimeReceived Time06/04/2025 9:11 PM EST Narrative 06/04/2025 9:14 PM EST [facility] ?[address] ? [place] [address] ? Ultrasound Report ? Signed ? Patient: KAELYN BANKS ?MR#: [id number] ?? : 2000 ?Acct:[id number] ?? Age/Sex: 25 / F ?ADM Date: 06/04/25 ?? Loc: US ? Attending Dr: Bryant Cao D.O. ? Ordering Physician: Bryant Cao D.O. ?? Date of Service: 06/04/25 ?? Procedure(s): US OB BPP w non-stress ?? Accession Number(s): [id number] ? cc: Bryant Cao D.O.; JOAQUÍN DILLON ? [facility] ? [address] ? [place] [address] ? Patient Name: ?? KAELYN Singh DARREN ? MRN: [facility]:[id number] ? date: 2000 ?Sex: F ?? Assigned Patient Location: [facility] ?? Current Patient Location: ? Accession/Order Number: [id number] ?? Exam Date: 06/04/2025 ??19:00 ?Report Date: 06/04/2025 ??21:11 ? At the request of: ?? BRYANT ??KILEY ??DO ? Procedure: ??US OB BPP w non-stress ? Ultrasound biophysical profile ? HISTORY: Gestational diabetes ? Adequate breathing movement, gross body movement, tone and ?? amniotic fluid volume for total score of 8 out of 8. ??The amniotic fluid index ?? is 13.9cm within normal limits. ??The heart rate 136 bpm. ? US/US OB BPP w non-stress ?? IMPRESSION: Adequate ultrasound biophysical profile ? Impression dictated by: Robert Jesus M.D. ??06/04/2025 9:11 PM ? Dictation Location: RADIO-PC-20 ? Electronically authenticated by: [id number] ??Y ?? Date: 06/04/2025 ??21:11 ? Dictated By: ?Robert Jesus D.O. ? Signed By: ?06/04/4 ? DD/ 2111 ? TD/TT: ? Regulatory Internship: Procedure Note Radiology, Radiologist, MD - 06/04/2025 [place] [address] Ultrasound Report Signed Patient: KAELYN BANKS MMR#: [id number] : 2000Acct:[id number] Age/Sex: 25 / FADM Date: 06/04/25 Loc: US Attending Dr: Bryant Cao D.O. Ordering Physician: Bryant Cao D.O. Date of Service: 06/04/25 Procedure(s): US OB BPP w non-stress Accession Number(s): [id number] cc: Bryant Cao D.O.; JOAQUÍN DILLON The [place] [id number] Patient Name: KAELYN BANKS MRN: [facility]:[id number] date: 2000 Sex: F Assigned Patient Location: [facility] Current Patient Location: Accession/Order Number: [id number] Exam Date: 06/04/2025 19:00 Report Date: 06/04/2025 21:11 At the request of: BRYANT CAO DO Procedure: US OB BPP w non-stress Ultrasound biophysical profile HISTORY: Gestational diabetes Adequate breathing movement, gross body movement, tone and amniotic fluid volume for total score of 8 out of 8. The amniotic fluidindex is 13.9cm within normal limits. The heart rate 136 bpm. US/US OB BPP w non-stress IMPRESSION: Adequate ultrasound biophysical profile Impression dictated by: Robert Jesus M.D. 06/04/2025 9:11 PM Dictation Location: [place] [address] Electronically authenticated by: [id number] Y Date: 1:11 Dictated By: Robert Jesus D.O. Signed By:06/04/252113 DD/ 10 TD/TT: Regulatory Internship: Authorizing ProviderResult TypeResult StatusCorey Kiley DOCLINISYNC IMAGINGFinal [...] Location / LateralityCollection Method / VolumeCollection TimeReceived LtqxSinaj19/22/2025 4:00 PM EST Narrative Authorizing ProviderResult TypeResult [...] ResultPerforming OrganizationAddressCity/State/ZIP CodePhone Number [facility] * URINE CULTURE - [facility] (05/30/2025 10:45 PM EST) Only the most recent of2 resultswithin the time period is included. ComponentValueRef RangeTest MethodAnalysis TimePerformed AtPathologist Signature URINE CULTURE - [facility] ??Urine Culture - [facility] [...] [facility] * (ABNORMAL) [facility] UA (CLEAN/CATCH) DIRECTOR TECHNICAL/MICRO IF IND. (05/30/2025 10:45 PM EST) Only the most recent of2 resultswithin the time period is included. ComponentValueRef RangeTest MethodAnalysis TimePerformed AtPathologist Signature COLOR URINELT. YELLOWYELLOWTBHCLARITY URINECLEARCLEARTBHSPECIFIC GRAVITY URINE >=1.030(A)1.005 - 1.025TBHPH URINE6.05.0 - 9.0TBHPROTEIN KYAEG585(A)NEG/TRACE mg/dLTBHGLUCOSE URINE UA250(A)NEGATIVE mg/dLTBHBILIRUBIN URINENEGATIVENEGATIVE TBHKETONES URINETRACE(A)NEGATIVE mg/dLTBHBLOOD URINENEGATIVENEGATIVETBHNITRITE URINENEGATIVENEGATIVETBHUROBILINOGEN URINE0.20.2 - 1.0 EU/dLTBHLEUKOCYTE ESTERASE URINETRACE(A)NEGATIVETBHURINE MICROSCOPIC INDICATEDYESTBHSpecimen (Source)Anatomical Location / LateralityCollection Method / VolumeCollection TimeReceived Time05/30/2025 10:45 PM EST05/30/2025 11:09 PM EST Narrative [facility] - 05/30/2025 11:15 PM EST Authorizing ProviderResult TypeResult StatusCorey Kiley DOCLINISYNCFinal Result Performing OrganizationAddressCity/State/ZIP CodePhone Number [facility] * Urine culture (05/30/2025 10:45 PM EST) Only the most recent of3 resultswithin the time period is included. ComponentValueRef RangeTest MethodAnalysis TimePerformed AtPathologist Signature [facility] NOTE <9,000 colonies/ml mixed ?bacterial skin contaminants ?2 Days 06/02/2025 11:14 AM [facility]tr[facility] (Source)Anatomical Location / LateralityCollection Method / VolumeCollection TimeReceived Time Clean-Voided Midstream (Clean Void Midstream)05/30/2025 10:45 PM EST05/31/2025 12:59 PM EST Narrative [facility] - 06/02/2025 11:14 AM EST Diagnosis: leaking fluid Comment: Authorizing ProviderResult TypeResult StatusCorey Kiley DOLAB MICROBIOLOGY - GENERAL ORDERABLESFinal ResultPerforming OrganizationAddressty/State/ZIP Code Phone Number [facility] [address] [place] [address], [facility] [address] [place] [address] * URINARY TRACT INFECTION (HTRX) (04/27/2025 12:15 PM EST)ComponentValueRef RangeTest MethodAnalysis TimePerformed AtPathologist SignatureACINETOBACTER UNEPRWES100.961 - 24.689 ppm04/28/2025 6:33 AM ESTHealthTrackRx at [facility]Port ACINETOBACTER BAUMANIINot Huvhhdsw14.961 - 24.689 ppm04/28/2025 6:33 AM EST [facility] at LabPortCITROBACTER ITGFPEOK686.000 - 32.015 ppm04/28/2025 6:33 AM ESTHealthTrackRx at LabPortCITROBACTER FREUNDIINot Xwcdweid57.000 - 32.015 ppm04/28/2025 6:33 AM ESTHealthTrackRx at LabPortENTEROBACTER AEROGENES, EQEKWWP115.000 - 32.290 ppm04/28/2025 6:33 AM ESTHealthTrackRx at LabPortENTEROBACTER AEROGENES, CLOACAENot Rdsjvihg31.000 - 32.290 ppm 04/28/2025 6:33 AM ESTHealthTrackRx at LabPortENTEROCOCCUS FAECALIS, FAECIUM0 26.000 - 33.043 ppm04/28/2025 6:33 AM ESTHealthTrackRx at LabPortENTEROCOCCUS FAECALIS, FAECIUMNot Fvsdzkxv27.000 - 33.043 ppm04/28/2025 6:33 AM EST [facility] at LabPortESCHERICHIA DRLA883.000 - 28.500 ppm04/28/2025 6:33 AM ESTHealthTrackRx at LabPortESCHERICHIA COLINot Iclezcqx99.000 - 28.500 ppm 04/28/2025 6:33 AM ESTHealthTrackRx at LabPortKLEBSIELLA PNEUMONIAE, OXYTOCA0 23.000 - 31.865 ppm04/28/2025 6:33 AM ESTHealthTrackRx at LabPortKLEBSIELLA PNEUMONIAE, OXYTOCANot Oaaxmkvh16.000 - 31.865 ppm04/28/2025 6:33 AM EST [facility] at LabPortMORGANELLA UJLRQEEO519.961 - 24.689 ppm04/28/2025 6:33 AM ESTHealthTrackRx at LabPortMORGANELLA MORGANIINot Maqzetei77.961 - 24.689 ppm04/28/2025 6:33 AM ESTHealthTrackRx at LabPortPROTEUS MIRABILIS, VULGARIS0 23.000 - 28.500 ppm04/28/2025 6:33 AM ESTHealthTrackRx at LabPortPROTEUS MIRABILIS, VULGARISNot Yycezcdj26.000 - 28.500 ppm04/28/2025 6:33 AM EST [facility] at LabPortPSEUDOMONAS ODEKILXSCG654.000 - 31.801 ppm04/28/2025 6:33 AM ESTHealthTrackRx at LabPortPSEUDOMONAS AERUGINOSANot Cdzdhqpk04.000 - 31.801 ppm04/28/2025 6:33 AM ESTHealthTrackRx at LabPortSTAPHYLOCOCCUS AUREUS0 26.000 - 31.595 ppm04/28/2025 6:33 AM ESTHealth[facility]Rx at [facility] STAPHYLOCOCCUS AUREUSNot Dovaxscy12.000 - 31.595 ppm04/28/2025 6:33 AM EST [facility] at LabPortSTREPTOCOCCUS AGALACTIAE (GROUP B STREP)026.000 - 32.435 ppm04/28/2025 6:33 AM ESTHealthTrackRx at LabPortSTREPTOCOCCUS AGALACTIAE (GROUP B STREP)Not Kkdbxfaj72.000 - 32.435 ppm04/28/2025 6:33 AM ESTHealthTrackRx at LabPortCANDIDA ALBICANS, PARAPSILOSIS, JQRZKNZHCW872.000 - 30.347 ppm04/28/2025 6:33 AM ESTHealthTrackRx at LabPortCANDIDA ALBICANS, PARAPSILOSIS, TROPICALISNot Etpugaqb98.000 - 30.347 ppm04/28/2025 6:33 AM EST [facility] LabPortCANDIDA GCRRGUNI144.000 - 31.618 ppm04/28/2025 6:33 AM ESTHealthTrackRx at LabPortCANDIDA GLABRATANot Aqljwdtr99.000 - 31.618 ppm 04/28/2025 6:33 AM ESTHealthTrackRx at LabPortCANDIDA UUPMLV500.000 - 30.873 ppm04/28/2025 6:33 AM ESTHealthTrackRx at LabPortCANDIDA KRUSEINot Detected 23.000 - 30.873 ppm04/28/2025 6:33 AM ESTHealthTrackRx at LabPortSERRATIA EGRXMXQQYF704.000 - 31.581 ppm04/28/2025 6:33 AM EST[facility] SERRATIA MARCESCENSNot Wvgypkjh44.000 - 31.581 ppm04/28/2025 6:33 AM EST [facility] at LabPortSTREPTOCOCCUS PYOGENES (GROUP A STREP)019.961 - 24.689 ppm04/28/2025 6:33 AM [facility]PT[facility]ENES (GROUP A STREP)Not Ejezihtx12.961 - 24.689 ppm04/28/2025 6:33 AM EST[facility] HospitalSTAPHYLOCOCCUS EPIDERMIDIS, HAEMOLYTICUS, LUGDUNENSIS, SAPROPHYTICUS (VEBQR802.961 - 24.689 ppm04/28/2025 6:33 AM [facility] STAPHYLOCOCCUS EPIDERMIDIS, HAEMOLYTICUS, LUGDUNENSIS, SAPROPHYTICUS (URINANot Qjvnzxqu95.961 - 24.689 ppm04/28/2025 6:33 AM [facility] STAPHYLOCOCCUS EPIDERMIDIS, HAEMOLYTICUS, LUGDUNENSIS, SAPROPHYTICUS (URINA0 19.961 - 24.689 ppm04/28/2025 6:33 AM ESTHealthTrackRx at [facility] STAPHYLOCOCCUS EPIDERMIDIS, HAEMOLYTICUS, LUGDUNENSIS, SAPROPHYTICUS (URINANot Hmtwwbgo39.961 - 24.689 ppm04/28/2025 6:33 AM ESTHealthTrackRx at [facility] Specimen (Source)Anatomical Location / LateralityCollection Method / Volume Collection TimeReceived LcshGleip93/18/2025 12:15 PM EST04/28/2025 1:31 AM EST Narrative Authorizing ProviderResult TypeResult StatusCorey Kiley DOLAB BLOOD ORDERABLES Final ResultPerforming OrganizationAddressCity/State/ZIP CodePhone Number [facility]ALTHTRACKRX [facility] [address] [place] [address] * US OB PLACENTA (04/15/2025 8:24 AM EST)Anatomical RegionLateralityModality OtherSpecimen (Source)Anatomical Location / LateralityCollection Method / VolumeCollection TimeReceived Time04/15/2025 8:24 AM EST Narrative 04/15/2025 8:27 AM EST [facility] ?[address] ? [place] [address] ? Ultrasound Report ? Signed ? Patient: DARREN,KAELYN P M ?MR#: [id number] ?? : 2000 ?Acct:[id number] ?? Age/Sex: 25 / F ?ADM Date: ?? Loc: [facility]BC ??250-1 ? Attending Quyen Cao D.O. ? Ordering Physician: Bryant Cao D.O. ?? Date of Service: 04/14/25 ?? Procedure(s): US OB placenta ?? Accession Number(s): [id number] ? cc: Bryant Cao D.O.; JOAQUÍN DILLON ? [facility] ? [address] ? [place] [address] ? Patient Name: ?? KAELYN BANKS ? MRN: [facility]:[id number] ? date: 2000 ?Sex: F ?? Assigned Patient Location: [facility] ?? Current Patient Location: ? Accession/Order Number: [id number] ?? Exam Date: 04/14/2025 ??13:27 ?Report Date: 04/15/2025 ??08:24 ? At the request of: ?? BRYANT ??KILEY ??DO ? Procedure: ??US OB placenta ? ULTRASOUND OB PLACENTA ? CLINICAL DATA: patient in [facility] ? COMPARISON: None ? There is [...] Dictation Location: RADIO-PC-02 ? Electronically authenticated by: [id number] ??Y ?? Date: 04/15/2025 ??08:24 ? Dictated By: ?Angela Lo M.D. ? Signed By: ?04/15/25826 ? DD/ 0824 ? TD/TT: ? Regulatory Internship: Procedure Note Radiology, Radiologist, MD - 04/15/[address] [address] Ultrasound Report Signed Patient: KAELYN BANKS MMR#: [id number] : 2000Acct:[id number] Age/Sex: 25 / FADM Date: Loc: [facility] 250-[address]: Bryant Cao D.O. Ordering Physician: Bryant Cao D.O. Date of Service: 04/14/25 Procedure(s): US OB placenta Accession Number(s): [id number] cc: Bryant Cao D.O.; JOAQUÍN DILLON [place] [address] Patient Name: KAELYN BANKS MRN: [id number] date: 2000 Sex: F Assigned Patient Location: [facility] Current Patient Location: Accession/Order Number: [id number] Exam Date: 04/14/2025 13:27 Report Date: 04/15/2025 [...] Lo M.D. 04/15/2025 8:24 AM Dictation Location: [place] [address] Electronically authenticated by: [id number] Y Date: 508:24 Dictated By: Angela Lo M.D. Signed By:04/15/25826 DD/ 3 TD/TT: Regulatory Internship: Authorizing ProviderResult TypeResult StatusCorey Kiley DOCLINISYNC IMAGINGFinal Result * (ABNORMAL) AFP tumor marker (04/08/2025 10:01 AM EDT)ComponentValueRef Range Test MethodAnalysis TimePerformed AtPathologist SignatureALPHA YDGERNCQUEX30.3 (H)<=9.9 ng/mLPROMEDICAComment: ?? PERFORMED AT [facility] [address],[place] [address] Specimen (Source)Anatomical Location / LateralityCollection Method / Volume Collection TimeReceived Time04/08/2025 10:01 AM EDT1 12:35 PM EDT Narrative Authorizing ProviderResult TypeResult StatusAmy [place] PALAB BLOOD ORDERABLES Final ResultPerforming OrganizationAddressCity/State/ZIP CodePhone Number [place] * (ABNORMAL) Diabetic Retinopathy Screening - OU - Both Eyes (03/30/2025 12:15 PM EDT)Anatomical RegionLateralityModalityHeadOther Narrative Authorizing ProviderResult TypeResult StatusThomas W Kern ODOPHTH PHOTOGRAPHY Final Result * URINE CULTURE, ROUTINE (03/20/2025 7:28 AM EDT)ComponentValueRef RangeTest MethodAnalysis TimePerformed AtPathologist SignatureURINE CULTURE, ROUTINE ??Urine Culture, Routine TBHURINE CULTURE, ROUTINEMixed urogenital floraTBHURINE CULTURE, ROUTINELess than 10,000 colonies/mLTBHURINE CULTURE, ROUTINEPerformed at: [facility] LabBeaumont HospitalTBHURINE CULTURE, [id number] [place], [place] [id number] CULTURE, ROUTINELab Director: Chaka Almanzar PhD, Phone: [phone] Specimen (Source)Anatomical Location / LateralityCollection Method / [...] specimen obtained by clean catch procedure / Pzajewe9810/27/2024 Narrative Authorizing ProviderResult TypeResult StatusFirelands Physician GroupLAB URINE ORDERABLESFinal Result from Last 3 Months or Most Recently Relevant to Health Maintenance Additional Health Concerns Active ProblemsNoted DateDiagnosed DateOB Gxxytshix70/24/2025 Insurance Care Teams Team MemberRelationshipSpecialtyStart DateEnd Date Joaquín Dillon DO [address] [place] [address] [facility] - [facility]10/22/22 Joaquín Dillon DO [address] [place] [address] PCP - Medical [facility]03/10/2312
--- OUTSIDE RECORDS SUMMARY | 2025-06-08 18:46 | XMS_ITS | Encounter Summary ---
Author Organization [facility] Address [address] [place] [address] Care Team Providers Care Maintenance Instructor Name Role Phone Dru Rodriguez DO Primary Care Provider [phone] Dru Rdoriguez DO Unavailable [phone] Encounter Details DateTypeDepartmentCare Team (Latest Contact Info)Fsqvhgerrhr49/21/2025Clinisync Result Encounter [facility] External Department Unsolicited Kolton Cao DO [address] [place] [address] Social History Tobacco UseTypesPacks/DayYears UsedDateSmoking Tobacco: NeverSmokeless [...] relatives?Twice a week03/11/2023How often do you attend faith or hinduism services?1 to 4 times per year03/11/2023o you belong to any clubs or organizations such as faith groups, unions, fraternal or athletic laura ups, or school groups?No03/11/2023How often do you attend meetings of the clubs or organizations you belong to?Never03/11/2023re you , , , , never , or living with a partner?Bzeldku6303/11/2023 AUDIT-CAnswerDate RecordedQ1: How often do you have a drink containing alcohol? Monthly or less03/11/2023Q2: How many drinks containing alcohol do you have on a typical day when you are drinking?3 or Q3: How often do you have six or more drinks on one occasion?Less than nneovnu0803/11/2023Overall Financial Resource Strain (CARDIA)AnswerDate RecordedHow hard is it for you to pay for the very basics like food, housing, medical care, and heating?Somewhat hard 03/11/2023HQ-2AnswerDate RecordedPatient Health Questionnaire-2 Score0 03/25/2025Finmountainstar healthcare [place] of Occupational Health - Occupational Stress QuestionnaireAnswerDate [...] slept in ashelter (including now)?No03/11/2023Estimated Date of CudiovrmDtzqycuhJuh55/27/2026ased on last menstrual period of 10/30/2024Sex and Gender InformationValueDate RecordedSex Assigned at XgzcuWbnegi72/01/2023 1:10 PM EDTLegal JuyOysyoq07/15/2023 6:51 PM EDTGender CjorhnqsPcmnyy86/01/2023 1:10 PM EDTSexual OtzfmzghzdvAqgdtbwk03/01/2023 1:10 PM EDTdocumented as of this encounter Plan of Treatment DateTypeDepartmentCare Team (Latest Contact Info)Mminkhfxdmk22/07/2026 4:00 PM ESTRoutine [facility] Issac PORTILLO [address] [place] [address] Dixie Gan, ANALYTICS ASSOCIATE [address] [place] [address] 06/30/2025 3:50 PM ESTRoutine NOMAislinn PORTILLO [address] [place] [address] Kolton Cao DO [address] [place] [address] documented as of this encounter Goals GoalPatient Goal TypeAssociated ProblemsRecent ProgressPatient-Stated?Author Reminders Care PlanOB RemindersNoOpen Scheduling, Backgrounddocumented as of this encounter Procedures Procedure NamePriorityDate/TimeAssociated DiagnosisCommentsAMNISURERoutine 05/30/2025 10:55 PM EST URINE CULTURE - EDVCXxdmurh38/21/2025 10:45 PM EST [facility] UA (CLEAN/CATCH) SCREEN MAKING TECHNICIAN/MICRO IF IND.Emqrria1105/30/2025 10:45 PM EST documented in this encounter Results * AMNISURE (05/30/2025 10:55 PM EST)ComponentValueRef RangeTest MethodAnalysis TimePerformed AtPathologist SignatureTBH AMNISURENEGATIVENEGATIVETBHSpecimen (Source)Anatomical Location / LateralityCollection Method / VolumeCollection TimeReceived Time05/30/2025 10:55 PM EST05/30/2025 11:09 PM EST Narrative CLINISYNC - 05/30/2025 11:21 PM EST Authorizing ProviderResult TypeResult StatusCorey Kiley DOLAB BLOOD ORDERABLES Final ResultPerforming OrganizationAddressCity/State/ZIP CodePhone Number CLINIS[facility]NC [facility] * URINE CULTURE - [facility] (05/30/2025 10:45 [...] CLINISYNC [facility] * (ABNORMAL) [facility] UA (CLEAN/CATCH) SCREEN MAKING TECHNICIAN/MICRO IF IND. (05/30/2025 10:45 PM EST) ComponentValueRef RangeTest MethodAnalysis TimePerformed AtPathologist SignatureCOLOR URINELT. YELLOWYELLOWTBHCLARITY URINECLEARCLEARTBHSPECIFIC GRAVITY URINE>=1.030(A)1.005 - 1.025TBHPH URINE6.05.0 - 9.0TBHPROTEIN FGVOT877 (A)NEG/TRACE mg/dLTBHGLUCOSE URINE UA250(A)NEGATIVE mg/dLTBHBILIRUBIN URINE NEGATIVENEGATIVETBHKETONES URINETRACE(A)NEGATIVE mg/dLTBHBLOOD URINENEGATIVE NEGATIVETBHNITRITE URINENEGATIVENEGATIVETBHUROBILINOGEN URINE0.20.2 - 1.0 EU/dLTBHLEUKOCYTE ESTERASE URINETRACE(A)NEGATIVETBHURINE MICROSCOPIC INDICATED YESTBHSpecimen (Source)Anatomical Location / LateralityCollection Method / VolumeCollection TimeReceived Time05/30/2025 10:45 PM EST05/30/2025 11:09 PM EST Narrative CLINISYNC - 05/30/2025 11:15 PM EST Authorizing ProviderResult TypeResult StatusCorey Kiley DOCLINISYNCFinal Result Performing OrganizationAddressCity/State/ZIP CodePhone Number [facility] documented in this encounter Visit Diagnoses Not on filedocumented in this encounter Additional Health Concerns Active ProblemsNoted DateDiagnosed DateOB Bwtomdphv51/24/2025 documented as of this encounter Care Teams Team MemberRelationshipSpecialtyStart DateEnd Date Dru Rodriguez DO [address] [place] [address] PCP - GeneralFamily Medicine10/22/22 Dru Rodriguez DO [address] [place] [address] PCP - Medical [place] Elclnfebvr09/1/2312documented as of this encounter
--- OUTSIDE RECORDS SUMMARY | 2025-06-08 18:46 | XMS_ITS | Encounter Summary ---
Author Organization [facility] tem Address [id number] [address] [place] [address] Care Team Providers Care Refrigerator Car Icer Name Role Phone JenniferDru April MUNGUIA Primary Care Provider [phone] Encounter Details DateTypeDepartmentCare Team (Latest Contact Info)Avxvkusxfin09/17/2025Telephone Maternal- Medicine at [facility] [address] [place] [phone] Yue Bullock RN Social History Tobacco UseTypesPacks/DayYears UsedDateSmoking Tobacco: NeverSmokeless Tobacco: NeverAlcohol UseStandard Drinks/WeekCommentsYes0 (1 standard drink = 0.6 oz pure alcohol)[facility] UtilitiesAnswerDate RecordedIn the past 12 months has the Organizer, gas, oil, or water [employer] threatened to shut off services in your [...] care, and heating?Not hard at all02/17/2025PHQ-2AnswerDate RecordedTotal Etcws007Finlayton hospital [place] of Occupational Health - Occupational Stress QuestionnaireAnswerDate [...] and direction in my life.Agree02/17/2025Estimated Date of XhqwqhdbMzvjqrfuMlz26/27/2026Based on last menstrual period of 10/30/2024Sex and Gender InformationValueDate RecordedSex Assigned at TkshnPskyvh55/22/2025 1:51 AM EDTLegal SexFemale 01/13/2015 11:58 AM EDTGender AeubchioPqjlwz35/22/2025 1:51 AM EDTSexual OrientationNot on filedocumented as [...] Plan of Treatment DateTypeDepartmentCare Team (Latest Contact Info)Sbkoitsmujm06/02/2026 3:30 PM ESTHospital Encounter [facility] [address] [place] [address] documented as of this encounter Visit Diagnoses Diagnosis Uncontrolled type 1 diabetes mellitus with hyperglycemia, with long-term current use of insulin ([facility]) documented in this encounter Additional Health Concerns AssessmentNoted TimePHQ-9 Depression Total Score: 8:31 AM ESTA Body Mass Index follow-up plan has been documented for the gosraxb5706/12/2023 4:35 PM ESTdocumented as of this encounter Care Teams Team MemberRelationshipSpecialtyStart DateEnd Date Dru Rodriguez DO [address] [place] [address] PCP - General01/01/17documented as of this encounter
--- OUTSIDE RECORDS SUMMARY | 2025-06-08 18:46 | XMS_ITS | Encounter Summary ---
Author Organization [facility] tem Address [id number] [address] [place] [address] Care Team Providers Care Timber Hewer Name Role Phone JenniferDru April MUNGUIA Primary Care Provider [phone] Encounter Details DateTypeDepartmentCare Team (Latest Contact Info)Bdfrvindglu51/23/2025Orders Only Maternal- Medicine at [facility] [address] [place] [phone] Odilia Dumas RN [address] [address] Social History Tobacco UseTypesPacks/DayYears UsedDateSmoking Tobacco: NeverSmokeless Tobacco: NeverAlcohol UseStandard Drinks/WeekCommentsYes0 (1 standard drink = 0.6 oz pure alcohol)formerly [facility] UtilitiesAnswerDate RecordedIn the past 12 [...] care, and heating?Not hard at all02/17/2025PHQ-2AnswerDate RecordedTotal Ixxve50906/12/2023Finshriners hospitals for children [place] of Occupational Health - Occupational Stress QuestionnaireAnswerDate [...] of a household?No02/17/2025hildcareAnswerDate RecordedDo problems getting child center assistant make it difficult for you to [...] and direction in my life.Agree02/17/2025Estimated Date of YnesiimlYbqambxoYbg86/27/2026Based on last menstrual period of 10/30/2024Sex and Gender InformationValueDate RecordedSex Assigned at HpowiVgutey13/22/2025 1:51 AM EDTLegal SexFemale 01/13/2015 11:58 AM EDTGender NifmkumdRocuej15/22/2025 1:51 AM EDTSexual OrientationNot on filedocumented as of this encounter Plan of Treatment DateTypeDepartmentCare Team (Latest Contact Info)Niwmxyabjwg64/02/[address] [facility] [address] [place] [phone] documented as of this encounter Visit Diagnoses Not on filedocumented in this encounter Additional Health Concerns AssessmentNoted TimePHQ-9 Depression Total Score: 8:31 AM ESTA Body Mass Index follow-up plan has been documented for the hhwubln3406/12/2023 4:35 PM ESTdocumented as of this encounter Care Teams Team MemberRelationshipSpecialtyStart DateEnd Date Dru Rodriguez DO [address] [place] [address] PCP - General01/01/17documented as of this encounter
--- OUTSIDE RECORDS SUMMARY | 2025-06-08 18:46 | XMS_ITS | Encounter Summary ---
Author Organization [facility] Address [address] [place] [address] Care Team Providers Care Strategy Execution Consultant Name Role Phone Dru Rodriguez DO Primary Care Provider [phone]- [phone] Dru Rodriguez DO Unavailable [phone] Encounter Details DateTypeDepartmentCare Team (Latest Contact Info)Hwllbxjuiey18/22/2025Abstract [facility] [address] [place] [address] Dru Rodriguez, DO [address] [place] [address] Social History Tobacco UseTypesPacks/DayYears UsedDateSmoking Tobacco: NeverSmokeless [...] relatives?Twice a week03/11/2023How often do you attend christianity or scientology services?1 to 4 times per year03/11/2023o you belong to any clubs or organizations such as christianity groups, unions, fraternal or athletic laura ups, or school groups?No03/11/2023How often do you attend meetings of the clubs or organizations you belong to?Never03/11/2023re you , , , , never , or living with a partner?Lhfvcwd8703/11/2023 AUDIT-CAnswerDate RecordedQ1: How often do you have a drink containing alcohol? Monthly or less03/11/2023Q2: How many drinks containing alcohol do you have on a typical day when you are drinking?3 or Q3: How often do you have six or more drinks on one occasion?Less than vaeeopa2503/11/2023Overall Financial Resource Strain (CARDIA)AnswerDate RecordedHow hard is it for you to pay for the very basics like food, housing, medical care, and heating?Somewhat hard 03/11/2023HQ-2AnswerDate RecordedPatient Health Questionnaire-2 Score0 03/25/2025Finalta [facility] hospital [place] of Occupational Health - Occupational Stress QuestionnaireAnswerDate [...] slept in ashelter (including now)?No03/11/2023Estimated Date of ItsyypmaUtcsbewgMsb67/27/2026Based on last menstrual period of 10/30/2024Sex and Gender InformationValueDate RecordedSex Assigned at NsskqZjzvml39/01/2023 1:10 PM EDTLegal NwvPykrgo60/15/2023 6:51 PM EDTGender TmfabidaOsxbrs01/01/2023 1:10 PM EDTSexual MldwqzebsaiXhzsidyt18/01/2023 1:10 PM EDTdocumented as of this encounter Plan of Treatment DateTypeDepartmentCare Team (Latest Contact Info)Qvyxcnjyrro82/07/2026 4:00 PM ESTRoutine [facility] Issac PORTILLO [address] [place] [address] Dixie Gan, SHAWN [address] [place] [address] 06/30/2025 3:50 PM ESTRoutine NOMAislinn PORTILLO [address] [place] [address] Kolton Cao, [address] [place] [address] documented as of this encounter Goals GoalPatient Goal TypeAssociated ProblemsRecent ProgressPatient-Stated?Author Reminders Care PlanOB RemindersNoOpen Scheduling, Backgrounddocumented as of this encounter Visit Diagnoses Not on filedocumented in this encounter Additional Health Concerns Active ProblemsNoted DateDiagnosed DateOB Emzabbzmx78/24/2025 documented as of this encounter Care Teams Team MemberRelationshipSpecialtyStart DateEnd Date Dru Rodriguez DO [address] [place] [address] PCP - GeneralFamily Medicine10/22/22 Dru Rodriguez DO [address] [place] [address] PCP - Medical [place] Kmotigsgxd15/1/2312documented as of this encounter
--- OUTSIDE RECORDS SUMMARY | 2025-06-08 18:46 | XMS_ITS | Encounter Summary ---
Author Organization [facility] Address [address] [place] [address] Care Team Providers Care Roll Slicing Machine Tender Name Role Phone Dru Rodriguez DO Primary Care Provider [phone] Dru Rodriguez DO Unavailable Encounter Details DateTypeDepartmentCare Team (Latest Contact Info)Kqhzkhfdlkc36/19/2025Telephone [facility] [place] [facility] [address] [place] [phone] Kolton Cao DO [address] [place] [phone] Social History Tobacco UseTypesPacks/DayYears UsedDateSmoking Tobacco: NeverSmokeless [...] week03/11/2023How often do you attend holiness or yazidi services?1 to 4 times per year03/11/2023o you belong to any clubs or organizations such as holiness groups, unions, fraternal or athletic laura ups, or school groups?No03/11/2023How often do you attend meetings of the clubs or organizations you belong to?Never03/11/2023re you , , , , never , or living with a partner?Pqymrwp5603/11/2023 AUDIT-CAnswerDate RecordedQ1: How often do you have a drink containing alcohol? Monthly or less03/11/2023Q2: How many drinks containing alcohol do you have on a typical day when you are drinking?3 or Q3: How often do you have six or more drinks on one occasion?Less than jqapuxe2703/11/2023Overall Financial Resource Strain (CARDIA)AnswerDate RecordedHow hard is it for you to pay for the very basics like food, housing, medical care, and heating?Somewhat hard 03/11/2023HQ-2AnswerDate RecordedPatient Health Questionnaire-2 Score0 03/25/2025Finjordan valley medical center [place] of Occupational Health - Occupational Stress QuestionnaireAnswerDate [...] slept in ashelter (including now)?No03/11/2023Estimated Date of YgidkssuIdswcusfFko57/27/2026ased on last menstrual period of 10/30/2024Sex and Gender InformationValueDate RecordedSex Assigned at MyrluJfqpys24/01/2023 1:10 PM EDTLegal BvqIwfoto18/15/2023 6:51 PM EDTGender TknscvylInsasb56/01/2023 1:10 PM EDTSexual XrxnekafzacMdekzezz21/01/2023 1:10 PM EDTdocumented as of this encounter Miscellaneous Notes * Telephone Encounter - Aline Fernández LPN - 05/28/2025 9:23 AM EST The reason I am calling is because I am getting my Rhogam shot today over at the [facility] and have to get blood work done [...] it. You can call me back at [phone]. Thank you. Patient call was returned and advised we will send orders over for Urine Culture for her to have completed. PVU orders sent at this time. documented in this encounter Plan of Treatment DateTypeDepartmentCare Team (Latest Contact Info)Sgapcsmymyp52/07/2026 4:00 PM ESTRoutine [facility] Issac PORTILLO [address] [place] [phone] Dixie Gan, AQUACULTURE FARM MANAGER [address] [place] [phone] 06/30/2025 3:50 PM ESTRoutine [facility] Issac OBG[facility] [address] [place] [phone] Kolton Cao, DO [address] [place], [place] [phone] NameTypePriorityAssociated DiagnosesOrder ScheduleUrine cultureMicrobiology Routine Kidney pain Expected: 05/28/2025 (Approximate), Expires: 05/28/2026documented as of this encounter Goals GoalPatient Goal TypeAssociated ProblemsRecent ProgressPatient-Stated?Author Reminders Care PlanOB RemindersNoOpen Scheduling, Backgrounddocumented as of this encounter Visit Diagnoses Diagnosis Kidney pain Renal colic documented in this encounter Additional Health Concerns Active ProblemsNoted DateDiagnosed DateOB Cooivxhsj57/24/2025 documented as of this encounter Care Teams Team MemberRelationshipSpecialtyStart DateEnd Date Dru Rodriguez DO [address] [place] [address] PCP - GeneralFamily Medicine10/22/22 Dru Rodriguez DO [address] [facility] [address] PCP - Medical [facility]03/10/2312documented as of this encounter
--- OUTSIDE RECORDS SUMMARY | 2025-06-08 18:46 | XMS_ITS | Encounter Summary ---
Author Organization [facility] Address [address] [place] [address] Care Team Providers Care Delivery Crew Worker Name Role Phone Dru Rodriguez DO Primary Care Provider [phone] Dru Rodriguez DO Unavailable [phone] Encounter Details DateTypeDepartmentCare Team (Latest Contact Info)Hkshjvvwxjl38/19/2025External Result Encounter [facility] Unsolicited Kolton Cao DO [address] [place] [address] Social History Tobacco UseTypesPacks/DayYears UsedDateSmoking Tobacco: NeverSmokeless [...] relatives?Twice a week03/11/2023How often do you attend orthodox or nondenominational services?1 to 4 times per year03/11/2023o you belong to any clubs or organizations such as orthodox groups, unions, fraternal or athletic laura ups, or school groups?No03/11/2023How often do you attend meetings of the clubs or organizations you belong to?Never03/11/2023re you , , , , never , or living with a partner?Xtdojbq9503/11/2023 AUDIT-CAnswerDate RecordedQ1: How often do you have a drink containing alcohol? Monthly or less03/11/2023Q2: How many drinks containing alcohol do you have on a typical day when you are drinking?3 or Q3: How often do you have six or more drinks on one occasion?Less than quvnvgc0903/11/2023Overall Financial Resource Strain (CARDIA)AnswerDate RecordedHow hard is it for you to pay for the very basics like food, housing, medical care, and heating?Somewhat hard 03/11/2023HQ-2AnswerDate RecordedPatient Health Questionnaire-2 Score0 03/25/2025[facility] [place] [facility] - Occupational Stress QuestionnaireAnswerDate [...] slept in ashelter (including now)?No03/11/2023Estimated Date of RbvwyzhjEfiyitgcChn05/27/2026ased on last menstrual period of 10/30/2024Sex and Gender InformationValueDate RecordedSex Assigned at JyqoxFunbzz62/01/2023 1:10 PM EDTLegal MvvAcaalc53/15/2023 6:51 PM EDTGender AnidzsizDcbvod81/01/2023 1:10 PM EDTSexual WpzxiqyxcfoKwsvhoen70/01/2023 1:10 PM EDTdocumented as of this encounter Plan of Treatment DateTypeDepartmentCare Team (Latest Contact Info)Icqetizpnqf74/07/2026 4:00 PM ESTRoutine [facility]ac PORTILLO [address] [place] [address] Dixie Gan, [place] W[place]ER [address] [place] [address] 06/30/2025 3:50 PM ESTRoutine NOMAislinn PORTILLO [address] [place] [address] Kolton Cao DO [address] [place] [address] documented as of this encounter Goals GoalPatient Goal TypeAssociated ProblemsRecent ProgressPatient-Stated?Author Reminders Care PlanOB RemindersNoOpen Scheduling, Backgrounddocumented as of this encounter Procedures Procedure NamePriorityDate/TimeAssociated DiagnosisCommentsCULTURE, URINE, JRVWQUVWfosajl30/19/2025 12:44 PM EST documented in this encounter Results * Urine culture (05/28/2025 12:44 PM EST)ComponentValueRef RangeTest Method Analysis TimePerformed AtPathologist SignatureFRMC NOTE?15,000 colonies/ml mixed ?bacterial skin contaminants ?2 Days 05/31/2025 11:21 AM [facility]trSpec[facility] (Source)Anatomical Location / LateralityCollection Method / VolumeCollection TimeReceived Time Clean-Voided Midstream (Clean Void Midstream)05/28/2025 12:44 PM EST05/28/2025 1:02 PM EST [facility] 05/31/2025 11:21 AM EST Diagnosis: RH NEG Comment: Authorizing ProviderResult TypeResult StatusCorey Kiley [facility]OL[facility] MICROBIOLOGY - GENERAL ORDERABLESFinal ResultPerforming OrganizationAddressCity/State/ZIP Code Phone Number [facility] [address] [place] [address], [facility] [address] [place] [address] documented in this encounter Visit Diagnoses Not on filedocumented in this encounter Additional Health Concerns Active ProblemsNoted DateDiagnosed DateOB Aotfcbcsm95/24/2025 documented as of this encounter Care Teams Team MemberRelationshipSpecialtyStart DateEnd Date Dru Rodriguez DO [address] [place] [address] PCP - GeneralFamily Medicine10/22/22 Dru Rodriguez DO [address] [place] [id number] PCP - Medical [place] Awxhhotqxf22/1/2312documented as of this encounter
--- OUTSIDE RECORDS SUMMARY | 2025-06-08 18:46 | XMS_ITS | Clinical Summary ---
Author Organization zePASS [facility] tem Address [id number] [address] 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 Name Role Phone JenniferDru April MUNGUIA Primary Care Provider [phone] Allergies Active AllergyReactionsCriticalityNoted FfvyLxjjhhodGbsoevhdbuk35/14/2016 Has since taken without reaction Medications * [...] with hyperglycemia, with long-term current use of pqspptc5002/17/2025Type 1 diabetes mellitus during in third dlryyyfzr97/11/2025DKA, type 1, not at goal 07/30/2018Diabetic ketoacidosis associated with type 1 diabetes mellitus 02/22/2017Acute renal byfoxjqkzkzfr39/11/2017Mechanical breakdown of insulin pump02/18/2017Generalized anxiety /25/2017Panic disorder without wsofipbbuot76/25/2017DKA, type Mild intermittent hlimyz4805/23/2016 Estimated Date of GenibsuiTzrhskhcRkf16/27/2026ased on last menstrual period of 10/30/2024 Resolved Problems ProblemNoted DateDiagnosed DateResolved DateCeliac disease in pediatric patient Encounters DateTypeDepartmentCare UafxPfhyhwyzgjs46/30/2025Orders Only [facility] - Labor [address] [place] [address] Ivory Quinones MD 06/07/2025Orders Only Maternal- Medicine at [facility] [address] [place] [address] Clarita Mchugh, [facility] 06/01/2025Orders Only Maternal- Medicine at [facility] [address] [place] [address] Odilia Dumas RN 06/01/2025Telephone Maternal- Medicine at [facility] [address] [place] [address] Odilia Dumas RN 06/01/2025Orders Only Maternal- Medicine at [facility] [address] [place] [address] Ivory Quinones MD 05/31/2025Orders Only Maternal- Medicine at [facility] [address] [place] [address] Clarita Mchugh, [facility] 05/28/2025Telephone Maternal- Medicine at [facility] [address] [place] [address] Odilia Dumas RN 05/28/2025Orders Only Maternal- Medicine at [facility] [address] [facility] [place] [address] Odilia Dumas, RN 05/26/2025Telephone Maternal- Medicine at [facility] [address] [facility] [place] [address] Yue Bullock RN 05/17/2025 1:00 PM ESTTelemedicine Maternal- Medicine at [facility] [address] [facility] [place] [address] Rosy Arredondo, ANDRE Type 1 diabetes mellitus during in third trimester (Primary Dx) 05/17/2025Telephone Maternal- Medicine at [facility] [address] [facility] [place] [address] Debby Garcia RN 05/17/20259212Pzrqag88/05/2025Telephone Maternal- Medicine at [facility] [address] [facility] [place] [address] Katie Orozco LD 05/13/2025 8:33 AM EST - 05/13/2025 11:59 PM ESTHospital Encounter [facility] US Imaging [address] [facility] [address] Type 1 diabetes mellitus during in second trimester Discharge Disposition: Home05/13/2025Orders Only Maternal- Medicine at [facility] [address] [facility] [place] [address] Becca Natarajan, BRANDT Type 1 diabetes mellitus during in second trimester (Primary Dx) 05/13/20254177Rppybc45/02/2025Orders Only Maternal- Medicine at [facility] [address] [facility] [place] [address] Ivory Quinones MD 05/10/2025Orders Only Maternal- Medicine at [facility] [address] [place] [address] Clarita Mchugh, [employer] 05/07/2025Telephone Maternal- Medicine at [facility] [address] [place] [address] Clarita Mchugh, [employer] DEBRI[employer] 05/05/2025Telephone Maternal- Medicine at [facility] [address] [place] [address] Yue Bullock, BRANDT 05/04/2025Telephone Maternal- Medicine at [facility] [address] [facility] [place] [address] Daniel Walker 05/04/2025Orders Only Maternal- Medicine at [facility] [address] [facility] [place] [address] Rosy Arredondo PA-C 05/04/2025Orders Only [facility] - Labor [address] [facility] [address] Rosy Arredondo PA-C 05/03/2025Orders Only Maternal- Medicine at [facility] [address] [facility] [place] [address] Debby Garcia RN 04/27/2025Documentation Maternal- Medicine at [facility] [address] [place] [address] Yue Bullock, BRANDT 04/26/2025Telephone Maternal- Medicine at [facility] [address] [place] [address] Yue Bullock, BRANDT 04/26/2025Remote Patient Monitoring Maternal- Medicine at [facility] [address] [facility] [place] [address] Ivory Quinones MD Type 1 diabetes mellitus during in second trimester [O24.012] (Primary Dx)04/20/2025 12:29 PM EST - 04/22/2025 2:20 PM ESTHospital Encounter [facility] - GEN 3 Antepartum [address] [place] [address] Criselda Green DO Uncontrolled type 1 diabetes mellitus with hyperglycemia, with long-term current use of insulin ([facility] Discharge Disposition: Left Against Medical Advice or Discontinued Care 04/20/2025 10:30 AM ESTTelemedicine Maternal- Medicine at [facility] [address] [place] [address] Rosy Arredondo, LUIS ALFREDOC Type 1 diabetes mellitus during in second trimester (Primary Dx) 04/20/2025Orders Only Maternal- Medicine at [facility] [address] [place] [address] Clarita Mchugh [facility] 04/20/20253395Ogqdpq03/07/2025 1:53 PM EST - 04/16/2025 11:59 PM ESTHospital Encounter [facility] - Cardiovascular [address] [place] [address] Type 1 diabetes mellitus complicating in second trimester, antepartum Discharge Disposition: Home04/16/2025Results Follow-Up Maternal- Medicine at [facility] [address] [place] [address] Georgiana Esteban MD Echo complete W/O fgkaboci92/06/8023Aaottl49/06/2025Orders Only Maternal- Medicine at [facility] [address] [place] [address] Katharine Howard LPN Type 1 diabetes mellitus during in second trimester (Primary Dx) 04/14/2025 8:00 AM EST - 04/14/2025 11:59 PM ESTHospital Encounter [facility] - MFM US Imaging [address] [place] [address] Encounter for other screening follow-up Discharge Disposition: Home04/12/2025 10:00 AM ESTTelemedicine Maternal- Medicine at [facility] [address] [place] [address] Poncho Jeffrey MD Type 1 diabetes mellitus during in second trimester (Primary Dx); Type 1 diabetes mellitus during in first rqnbyigtt29/03/2025Travel 04/08/2025 1:00 PM EDTTelemedicine Maternal- Medicine at [facility] [address] [place] [address] Georgiana Esteban MD 22 weeks gestation of (Primary Dx); Type 1 diabetes mellitus complicating in second trimester, antepartum; Asthma complicating in second abtrmictv79/30/8022Gvmevc51/29/2025 Telephone Maternal- Medicine at [facility] [address] [facility] [place] [address] Carolann Urbina, BRANDT 04/06/2025Telephone Maternal- Medicine at [facility] [address] [facility] [place] [address] Carolann Urbina, BRANDT 04/05/2025Orders Only Maternal- Medicine at [facility] [address] [facility] [address] Clarita Mchugh CMA 03/29/2025 10:30 AM EDTTelemedicine Maternal- Medicine at [facility] [address] [facility] [place] [address] Rosy Arredondo, ANDRE Type 1 diabetes mellitus during in second trimester (Primary Dx) 03/29/20259812Ucrdcn94/20/2025Orders Only Maternal- Medicine at [facility] [address] [facility] [address] Lula Fernandez, BRANDT 03/29/2025Orders Only Maternal- Medicine at [facility] [address] [place] [address] Debby Garcia, BRANDT 03/24/2025Telephone Maternal- Medicine at [facility] [address] [place] [address] Maritza Milian 03/17/2025Telephone Maternal- Medicine at [facility] [address] [facility] [place] [address] Maritza Milian 03/16/2025 7:57 AM EDT - 03/16/2025 11:59 PM EDTHospital Encounter [facility] - Ultrasound [address] [place] [address] Type 1 diabetes mellitus during in first trimester Discharge Disposition: Home03/15/2025 3:30 PM EDTTelemedicine Maternal- Medicine at [facility] [address] [facility] [place] [address] Rosy Arredondo, ANDRE Type 1 diabetes mellitus during in second trimester (Primary Dx) 03/15/2025Telephone Maternal- Medicine at [facility] [address] [place] [address] Debby Garcia, BRANDT 03/15/20258649Jmgasl10/06/2025Orders Only Maternal- Medicine at [facility] [address] [facility] [place] [address] Debby Garcia, BRANDT 03/09/2025Orders Only Maternal- Medicine at [place] [address] [place] [address] Yahaira Miller MD 03/09/2025Orders Only Maternal- Medicine at [place] [address] [place] [address] Yue Bullock RN 03/09/2025Remote Patient Monitoring Maternal- Medicine at [address] [address] Yahaira Miller MD Pre-existing type 1 diabetes mellitus with hyperglycemia during in second trimester ([facility]) (Primary Dx)from Last 3 Months Immunizations ImmunizationAdministration DatesNext DueCOVID-19, mRNA, LNP-S, PF, 30mcg/0.3mL Dose03/21/2021,02/28/2021 Family History Medical HistoryRelationNameCommentsAsthmaFatherDiabetesMaternal GrandmotherDrug abuseMotherColon cancerPaternal GrandfatherDiabetesSisterHeart murmurSister Breast cancerNeg HxCancerNeg HxHypertensionNeg HxOvarian cancerNeg HxPancreatic cancerNeg HxProstate cancerNeg HxStrokeNeg HxUterine cancerNeg HxRelationName StatusCommentsFatherAliveMaternal GrandmotherMotherDeceasedPaternal Grandfather DeceasedSister Social History Tobacco UseTypesPacks/DayYears UsedDateSmoking Tobacco: NeverSmokeless Tobacco: Never Tobacco Cessation:Counseling Given: Not Answered Alcohol UseStandard Drinks/WeekCommentsYes0 (1 standard drink = 0.6 oz pure alcohol)socialiCracked UtilitiesAnswerDate RecordedIn the past 12 months has the [employer], [employer], oil, or water [employer] threatened to shut off services in your [...] care, and heating?Not hard at all02/17/2025PHQ-2AnswerDate RecordedTotal Ujear143/03/2024[facility] [place] of Occupational Health - Occupational Stress QuestionnaireAnswerDate [...] and direction in my life.Agree02/17/2025Estimated Date of IuajdvzsNfvbloakFct07/27/2026Based on last menstrual period of 10/30/2024Sex and Gender InformationValueDate RecordedSex Assigned at LqejjLllrqu93/22/2025 1:51 AM EDTLegal SexFemale 01/13/2015 11:58 [address]TG[address]sexursPuvvux20/22/2025 1:51 AM EDTSexual OrientationNot on file Last Filed Vital Signs Vital SignReadingTime TakenCommentsBlood Szwamntu685/6011 8:44 AM EST Dedzb1912 8:44 AM ZRVGtmllrmcxxt74.7 ??C (98.1 ??F)04/22/2025 8:44 AM ESTRespiratory Wcph788206/22/2024 8:44 AM ESTOxygen Dpozxoqzju41%04/21/2025 7:24 PM ESTInhaled Oxygen Concentration--Wamgss97.1 kg (161 lb 2.5 oz)04/20/2025 12:30 PM OFAMnqigy317.3 cm (4' 9.99 )02/17/2025 6:00 PM EDTBody Mass Index33.69 02/17/2025 6:00 PM EDT Plan of Treatment DateTypeDepartmentCare Team (Latest Contact Info)Uxsfzjjpedb05/02/2026 3:30 PM ESTHospital Encounter [facility] US Imaging [address] [place] [address] Health MaintenanceDue DateLast DoneCommentsDiabetic Ophthalmology Exam2001 Diabetic Foot Exam2019Chlamydia Fzpiadiel392Adult BMI Follow Up Plan/4Depression Eiaojsslg01/4COVID- 19 Vaccine ( season)/11/2021, 03/21/2021, 1RSV ( or age 60+ yrs) (1 - Risk 1-dose series)6Adult BMI Uprnlwqjz51/04/2025Tobacco Fhpmxugln50/Pap Smear 809/02/2025, 2DTaP,Tdap and Td Vaccines (8 - Td or Tdap) /, 03/02/2013, 03/18/2008, Additional history existsInfluenza WwbsfxsZjkmchgfx32/08/2025, 03/18/2024, 06/12/2023, Additional history exists Medical Devices ImplantedTypeAreaManufacturerDevice IdentifierShelf Expiration DateModel / Serial / LotNexplanonDescription: control implant in right upper arm Procedures Procedure NamePriorityDate/TimeAssociated DiagnosisCommentsUS MFM OB FOLLOW-UP, 1 YNMPLKnejgnd11/04/2025 9:12 AM EST Type 1 diabetes mellitus during in second trimester EXTRA TUBES SST DWZGzggouj47/13/2025 9:13 AM EST EXTRA TUBES LAVENDER VMLWokvskv47/13/2025 9:13 AM EST EXTRA TUBES PST TLKRjktxlf91/13/2025 9:13 AM EST EXTRA UCHILIdfvrqe41/13/2025 9:13 AM EST BEDSIDE KBRVOCIVuigdip97/12/2025 7:17 PM EST BEDSIDE EBZFGSEYnugtkg70/12/2025 3:56 PM EST BEDSIDE OFZLTPDLslakiq28/12/2025 3:41 PM EST BEDSIDE ZCCUDUXHnsijnd19/12/2025 6:13 AM EST BEDSIDE CREUJHCRenxwmk50/11/2025 7:37 PM EST BEDSIDE AUQZBPBNfwsvgn30/11/2025 7:18 PM EST REPEATED ZIGZEOajkgrk89/11/2025 1:14 PM EST T4, FREEAdd-On04/20/2025 1:14 PM EST TSHAdd-On04/20/2025 1:14 PM EST ACETONE,(BETAHYDROXYBUTYRATE, KETONE) QUANTITATIVE ZRCNKZoiifiz90/11/2025 1:14 PM EST CBC WITH AUTO KQFETDJZAAORPrvpukp13/11/2025 1:14 PM EST COMPREHENSIVE METABOLIC QNYEBYvqrnsz90/11/2025 1:14 PM EST ECHO COMPLETE WO XPTGKTWPIgamlnm16/07/2025 2:29 PM EST Type 1 diabetes mellitus complicating in second trimester, antepartum US [facility] OB FOLLOW-UP, 1 PBMVOYtljaqo75/05/2025 9:34 AM EST Encounter for other screening follow-up ALPHA HMDLUMNHKYPDqhyuzh55/30/2025 10:01 AM EDT Encounter for supervision of normal , unspecified, second trimester B-TYPE NATRIURETIC XTAXFNIYjrwifh33/30/2025 10:01 AM EDT Type 1 diabetes mellitus during in second trimester EXTRA TUBES LAVENDER IQBGeyodtu05/30/2025 9:56 AM EDT Encounter for supervision of normal , unspecified, second trimester Uncontrolled type 1 diabetes mellitus with hyperglycemia, with long-term current use of insulin ([facility]) Type 1 diabetes mellitus during in second trimester EXTRA HKIVSRwurwod40/30/2025 9:56 AM EDT Encounter for supervision of normal , unspecified, second trimester Uncontrolled type 1 diabetes mellitus with hyperglycemia, with long-term current use of insulin ([facility]) Type 1 diabetes mellitus during in second trimester HEMOGLOBIN H4RQudkuah52/30/2025 9:56 AM EDT Uncontrolled type 1 diabetes mellitus with hyperglycemia, with long-term current use of insulin ([facility]) US [facility] COMPREHENSIVE ANATOMIC WMLEZMMpailqk66/07/2025 9:52 AM EDT Type 1 diabetes mellitus during in first trimester PAP YSWJXBctfhsp91/24/2022 10:35 AM EDT Cervical smear, as part of routine gynecological examination CHLAMYDIA/GC BY PCR OMAIRA LXZJYhnbikp77/11/2022 6:33 PM EDT Menorrhagia with irregular cycle Metrorrhagia DUB (dysfunctional uterine bleeding) from Last 3 Months or Most Recently Relevant to Health Maintenance Results * [facility] OB FOLLOW-UP, 1 FETUS (05/13/2025 9:12 AM EST) Only the most recent of3 resultswithin the time period is included. Anatomical RegionLateralityModalityOB-GYNUltrasoundSpecimen (Source)Anatomical Location / LateralityCollection Method / VolumeCollection TimeReceived Time 05/13/2025 8:44 AM EST Narrative 05/13/2025 10:52 AM EST NAME: ??DARREN ART : 2000 SEX: F Accession Number: [id number] ORDERING PHYSICIAN: IVORY QUINONES REFERRING PHYSICIAN: BRYANT PULLIAM Coding Procedures ? 69816: Ultrasound, uterus, real time with image documentation, [...] (oz) ? 10 oz EFW by: ?Hadlock (MUH-ZT-ZO-FL) Extended Tibia ??45.1 mm 27w 4d 40% [facility] Transcriptionist ? 2.4 mm CM ? 6.4 mm [...] MVP measures 4.6 cm. Recommendations Please see [facility] recommendations from prior clinical and/or ultrasound report documentation. The patient is scheduled in four weeks for follow up growth ultrasound. Subsequent follow up or other follow up as clinically determined by primary OB provider unless otherwise specified by [facility]. Results forwarded to ordering provider so they can follow up with the patient as necessary. Procedure Note Yahaira Miller MD - 05/13/2025 NAME: DARREN ART : 2000 SEX: F Accession Number: [id number] ORDERING PHYSICIAN: IVORY QUINONES REFERRING PHYSICIAN: BRYANT PULLIAM Coding Procedures 19442: Ultrasound, uterus, real time with image documentation, [...] EFW (oz) 10 oz EFW by: Hadlock (VZE-GI-RT-FL) Extended Tibia 45.1 mm 27w 4d 40% [facility] Transcriptionist 2.4 mm CM 6.4 mm 42% Nicolaides [...] MVP measures 4.6 cm. Recommendations Please see [facility] recommendations from prior clinical and/or ultrasoundreport [...] EST)ComponentValueRef RangeTest MethodAnalysis TimePerformed AtPathologist SignatureExtra TubeAuto Plsvafme56/13/2025 11:01 AM [facility] LABORATORYSpecimen (Source)Anatomical Location / LateralityCollection Method / VolumeCollection TimeReceived TimeBloodVenous blood / Swiitoa6704/22/2025 9:13 AM EST04/22/2025 10:09 AM EST Narrative Authorizing ProviderResult TypeResult StatusCriselda Green [facility] BLOOD ORDERABLESFinal ResultPerforming OrganizationAddressCity/State/ZIP CodePhone Number [facility] [address] [place] [address], * Lavender Top (04/22/2025 9:13 AM EST) Only the most recent of2 resultswithin the time period is included. ComponentValueRef RangeTest MethodAnalysis TimePerformed AtPathologist Signature Extra TubeAuto Fqdjpfku47/13/2025 11:01 AM [facility] LABORATORYSpecimen (Source)Anatomical Location / LateralityCollection Method / VolumeCollection TimeReceived TimeBloodVenous blood / Bpumltl0704/22/2025 9:13 AM EST04/22/2025 10:09 AM EST Narrative Authorizing ProviderResult TypeResult StatusJejac Green DOLAB BLOOD ORDERABLESFinal ResultPerforming OrganizationAddressCity/State/ZIP CodePhone Number [facility] [address] [place] [address], * PST TOP (04/22/2025 9:13 AM EST)ComponentValueRef RangeTest MethodAnalysis TimePerformed AtPathologist SignatureExtra TubeAuto Zsiznzdk87/13/2025 11:01 AM [facility] LABORATORYSpecimen (Source)Anatomical Location / LateralityCollection Method / VolumeCollection TimeReceived TimeBloodVenous blood / Sqdzmny4604/22/2025 9:13 AM EST04/22/2025 10:09 AM EST Narrative Authorizing ProviderResult TypeResult StatusJejac Green DOLAB BLOOD ORDERABLESFinal ResultPerforming OrganizationAddressty/State/ZIP CodePhone Number [facility] [address] [place] [address], * (ABNORMAL) Bedside Glucose *Place/Obtain serum glucose if >500 per glucometer. (04/21/2025 7:17 PM EST) Only the most recent of6 resultswithin the time period is included. ComponentValueRef RangeTest MethodAnalysis TimePerformed AtPathologist Signature Bedside Glucose (POC)152(H)65 - 99 mg/dL04/21/2025 7:22 PM [facility] LABORATORYSpecimen (Source)Anatomical Location / LateralityCollection Method / VolumeCollection TimeReceived Timearterial/tfpezahhy77/12/2025 7:17 PM EST 04/21/2025 7:22 PM EST Narrative Authorizing ProviderResult TypeResult StatusCriselda Green DOPOINT OF CARE TEST ORDERABLESFinal ResultPerforming OrganizationAddressCity/State/ZIP CodePhone Number [facility] [address] [place] [address], [place] * ABO Rh Repeat (04/20/2025 1:14 PM EST)ComponentValueRef RangeTest Method Analysis TimePerformed AtPathologist YbiezsmxlLKDZ54/13/2025 10:32 AM ESTTTH JENNY DÍAZLQINVHXTWGkovlgor07/13/2025 10:32 AM ESTTT JENNY BRESpecimen (Source) Anatomical Location / LateralityCollection Method / VolumeCollection Time Received TimeBloodVenous blood / UnknownVenipuncture / Iwddgzj6204/20/2025 1:14 PM EST04/20/2025 1:33 PM EST Narrative Authorizing ProviderResult TypeResult StatusCristofer Leary MDBLOOD BANK TEST ORDERABLESFinal ResultPerforming OrganizationAddressty/State/ZIP CodePhone Number [facility] JENNY [address] [place] [address], [place] * (ABNORMAL) CBC auto differential (04/20/2025 1:14 PM EST)ComponentValueRef RangeTest MethodAnalysis TimePerformed AtPathologist DcjttcuipUHG68.7(H)4 - 11 X10^9/L106/20/2024 1:50 PM [facility] LABORATORYRBC Count3.72 (L)3.8 - 5.2 X10^12/L106/20/2024 1:50 PM [facility] Bsohbvzqei17.3(L)11.7 - 15.5 g/dL04/20/2025 1:50 PM [facility] WTJDQLLRPCGkngbkzsyw42.7(L)35 - 47 %04/20/2025 1:50 PM [facility] QVQBTTOWSELSD9014 - 100 fL04/20/2025 1:50 PM [facility] QUIFJEPDNRVYT48.327 - 34 pg04/20/2025 1:50 PM [facility] VIWPYXSDQSSHNC96.532 - 36 g/dL04/20/2025 1:50 PM [facility] IAHHYWQGFRFMI80.511.5 - 15 %04/20/2025 1:50 PM [facility] LABORATORYPlatelet Ipxfs147618 - 450 X10^9/L106/20/2024 1:50 PM [facility] LABORATORYMPV8.97 - 12 fL04/20/2025 1:50 PM [facility] LABORATORYNeutrophils %80.6%04/20/2025 1:50 PM [facility] LABORATORYLymphocytes %12.7%04/20/2025 1:50 PM [facility] LABORATORYMonocytes %5.6%04/20/2025 1:50 PM [facility] LABORATORYEosinophils %0.7%04/20/2025 1:50 PM [facility] LABORATORYBasophils %0.4%04/20/2025 1:50 PM [facility] LABORATORYNeutrophils Absolute (A)10.2(H)1.5 - 6.6 X10^9/L 04/20/2025 1:50 PM [facility] LABORATORYLymphocytes Absolute 1.61.0 - 3.5 X10^9/L106/20/2024 1:50 PM [facility] Monocytes Absolute0.70.0 - 0.9 X10^9/L106/20/2024 1:50 PM [facility] LABORATORYEosinophils Absolute0.10.0 - 0.4 X10^9/L106/20/2024 1:50 PM [facility] LABORATORYBasophils Absolute0.10.0 - 0.2 X10^9/L 04/20/2025 1:50 PM [facility] LABORATORYDifferential Type AUTOMATED NPCFFAXNDRDV33/11/2025 1:50 PM [facility] LABORATORYSpecimen (Source)Anatomical Location / LateralityCollection Method / VolumeCollection TimeReceived TimeBloodVenous blood / UnknownVenipuncture / Spvmrvy0804/20/2025 1:14 PM EST04/20/2025 1:33 PM EST Narrative Authorizing ProviderResult TypeResult StatusCristofer PAIGE BLOOD ORDERABLESFinal ResultPerforming OrganizationAddressCity/State/ZIP CodePhone Number [facility] [address] [place] [address], * Acetone, (BetaHydroxybutyrate, Ketone) quantitative, serum (04/20/2025 1:14 PM EST)ComponentValueRef RangeTest MethodAnalysis TimePerformed AtPathologist SignatureBETAHYDROXYBUTYRATE0.100.02 - 0.27 mmol/L106/20/2024 2:15 PM [facility] LABORATORYSpecimen (Source)Anatomical Location / Laterality Collection Method / VolumeCollection TimeReceived TimeBloodVenous blood / UnknownVenipuncture / Qmzlwjp8004/20/2025 1:14 PM EST04/20/2025 1:32 PM EST Narrative Authorizing ProviderResult TypeResult StatusCristofer PAIGE BLOOD ORDERABLESFinal ResultPerforming OrganizationAddressty/State/ZIP CodePhone Number [facility] [address] [place] [address], [place] [phone] * TSH (04/20/2025 1:14 PM EST)ComponentValueRef RangeTest MethodAnalysis Time Performed AtPathologist SignatureTSH0.750.49 - 4.67 uIU/mL04/21/2025 9:43 AM [facility] LABORATORYSpecimen (Source)Anatomical Location / LateralityCollection Method / VolumeCollection TimeReceived TimeBloodVenous blood / UnknownVenipuncture / Oqjrler2304/20/2025 1:14 PM EST04/20/2025 1:32 PM EST Narrative Authorizing ProviderResult TypeResult StatusCristofer PAIGE BLOOD ORDERABLESFinal ResultPerforming OrganizationAddressCity/State/ZIP CodePhone Number [facility] [address] [place] [address], [place] [phone] * T4, free (04/20/2025 1:14 PM EST)ComponentValueRef RangeTest MethodAnalysis TimePerformed AtPathologist SignatureFREE T40.640.61 - 1.60 ng/dL04/21/2025 9:48 AM [facility] LABORATORYSpecimen (Source)Anatomical Location / LateralityCollection Method / VolumeCollection TimeReceived Time BloodVenous blood / UnknownVenipuncture / Qmyvgfy2704/20/2025 1:14 PM EST 04/20/2025 1:32 PM EST Narrative Authorizing ProviderResult TypeResult StatusIsaac Sapphire PAIGE BLOOD ORDERABLESFinal ResultPerforming OrganizationAddressCity/State/ZIP CodePhone Number [facility] [address] [place] [address], * (ABNORMAL) Comprehensive metabolic panel (04/20/2025 1:14 PM EST)Component ValueRef RangeTest MethodAnalysis TimePerformed AtPathologist SignatureSODIUM 600781 - 146 mmol/L106/20/2024 2:15 PM [facility] POTASSIUM3.93.5 - 5.0 mmol/L106/20/2024 2:15 PM [facility] AQKGXYEQCHWCGEHGLC63099 - 109 mmol/L106/20/2024 2:15 PM [facility] LABORATORYCARBON DNECDND0235 - 32 mmol/L106/20/2024 2:15 PM [facility] LABORATORYANION GAP75 - 15 mmol/L106/20/2024 2:15 PM EST [facility]ORATORYBLOOD UREA HBZAHORC96 - 23 mg/dL04/20/2025 2:15 PM [facility] LABORATORYCREATININE0.620.40 - 1.00 mg/dL 04/20/2025 2:15 PM [facility] LABORATORYComment:METHOD TRACEABLE TO IDMS UKDJFFJFOTEGIIY669(H)65 - 99 mg/dL04/20/2025 2:15 PM EST [facility]ORATORYCALCIUM8.58.5 - 10.5 mg/dL04/20/2025 2:15 PM [facility] LABORATORYTOTAL PROTEIN6.16.0 - 8.0 g/dL 04/20/2025 2:15 PM [facility] LABORATORYALBUMIN3.1(L)3.2 - 5.3 g/dL04/20/2025 2:15 PM [facility] LABORATORYALKALINE FHOKAEGFBJY7102 - 130 U/L106/20/2024 2:15 PM [facility] VKLSJMRTRLIZY11<=41 U/L106/20/2024 2:15 PM [facility] APSSWRFHPZEAK16(H)<=31 U/L106/20/2024 2:15 PM [facility] LABORATORYBILIRUBIN,TOTAL0.2(L)0.3 - 1.2 mg/dL04/20/2025 2:15 PM [facility] LABOR[facility]ORYEGFR Non-Race Dependent>90>=60 ml/min/1.73sq.m 04/20/2025 2:15 PM [facility] LABORATORYComment: Reported eGFR is based on the CKD-EPI 2020 equation that does not use a race coefficient. Specimen (Source)Anatomical Location / LateralityCollection Method / Volume Collection TimeReceived TimeBloodVenous blood / UnknownVenipuncture / Unknown 04/20/2025 1:14 PM EST04/20/2025 1:32 PM EST Narrative Authorizing ProviderResult TypeResult StatusIsaac Sapphire PAIGE BLOOD ORDERABLESFinal ResultPerforming OrganizationAddressCity/State/ZIP CodePhone Number [facility] [address] [place] [address], * Echo complete W/O contrast (04/16/2025 2:29 PM EST)ComponentValueRef RangeTest MethodAnalysis TimePerformed AtPathologist SignatureLVOT stroke xazzox80.88ml CCNAHIGRE7228 - 44 %XCELERALVIDd4.84tnSIBIEZIGXSEn1.30ieBRVYTAKPLV4.900.6 - 1.1 cmXCELERAPW0.900.6 - 1.1 cmXCELERALVOT diameter1.00taESVKAJQEWI78.20cm/s XCELERAMV TDI E' (medial)8.27cm/sXCELERALA Volume Index13.7mL/n0GFGORXLV/A ratio1.32XCELERAE wave deceleration pbkq917.00msecXCELERAMV Peak E Gxq150.00 cm/sXCELERAMV Peak A Vel78.60cm/sXCELERALA size3.20cmXCELERAAortic root2.50cm XCELERALA xyvktw06.42pr9UNJXZHBRE diastolic dimension (basal)27.0mmXCELERARVID d2.8zgQWVXZQHYXAFK1.38cmXCELERAAV peak xqs398.00cm/sXCELERALVOT peak vel1.16 m/sXCELERAAV VTI39.00cmXCELERALVOT peak VTI26.30cmXCELERAAV mean gradient8.00 mmHgXCELERAAV peak .75mmHgXCELERAAV valve area1.36XCELERAValve area - Index0.8XCELERAMV pressure 1/2 time53.00msXCELERAMV valve area p 1/2 method 4.81vc2TJPPEEYOI mean gradient3.00mmHgXCELERAPV peak gradient4.84mmHgXCELERALV ESV A2C20.70mLXCELERALV ESV A4C22.20mLXCELERALV RWT 2D45.00XCELERAAV Velocity Ratio0.67XCELERALeft Ventricle Cjgd210.758953566543390cHUCWLEW Interventricular Septum Diastolic Thickness by 3J0mfTGOUUWXCsf. RA pressure3 mmHgXCELERARA area9.1xf7LNLPRPQYtxkhdnmfz RegionLateralityModalityChestN/A UltrasoundSpecimen (Source)Anatomical Location / LateralityCollection Method [...] is normal. Authorizing ProviderResult TypeResult StatusGeorgiana Esteban [facility] ECHO ORDERABLESFinal Result * (ABNORMAL) Alpha fetoprotein (04/08/2025 10:01 AM EDT)ComponentValueRef Range Test MethodAnalysis TimePerformed AtPathologist SignatureALPHA QOBRUVKATDV83.3 (H)<=9.9 ng/mL04/08/2025 1:[address] [facility] Specimen (Source)Anatomical Location / LateralityCollection Method / Volume Collection TimeReceived TimeBloodVenous blood / UnknownVenipuncture / Unknown 04/08/2025 10:01 AM EDT1 10:01 AM EDT Narrative Authorizing ProviderResult TypeResult StatusAmy L Maria G PALAB BLOOD ORDERABLES Final ResultPerforming OrganizationAddressCity/State/ZIP CodePhone Number [facility] [address] [place] [address], * B-type natriuretic peptide (04/08/2025 10:01 AM EDT)ComponentValueRef Range Test MethodAnalysis TimePerformed AtPathologist JoggggpmnMKB00<=100 pg/mL 04/08/2025 11:24 AM EDTPROMEDPARADISE VALLEY HOSPITALpecimen (Source) Anatomical Location / LateralityCollection Method / VolumeCollection Time Received TimeBloodVenous blood / UnknownVenipuncture / Eprhxcs3704/08/2025 10:01 AM EDT1 10:01 AM EDT Narrative Authorizing ProviderResult TypeResult StatusColleen E Lavoy PA-CLAB BLOOD ORDERABLESFinal ResultPerforming OrganizationAddressCity/State/ZIP CodePhone Number [facility] [address] [place] [address], * Hemoglobin A1c (04/08/2025 9:56 AM EDT)ComponentValueRef RangeTest Method Analysis TimePerformed AtPathologist SignatureHEMOGLOBIN A1C5.14.4 - 5.6 % 04/08/2025 1:[address] [facility] LABORATORYComment: ?ADA Guidelines ?Result ?HgbA1c ? Normal : ? less than 5.7 % ? Prediabetes : ?5.7 % ??to 6.4 % Diabetes : > 6.4 % ?Use with caution in patients with abnormal hemoglobin variants as ??the half-life of red blood cells and in vivo glycation rates are ??affected. EST. AVERAGE WPMWPZC497um/dL04/08/2025 1:[address] [facility] LABORATORYSpecimen (Source)Anatomical Location / LateralityCollection Method / VolumeCollection TimeReceived TimeBloodVenous blood / Biacsnc8704/08/2025 9:56 AM EDT1 10:14 AM EDT Narrative Authorizing ProviderResult TypeResult StatusFranciscotiffany Kareen FISHERLAB BLOOD ORDERABLESFinal ResultPerforming OrganizationAddressCity/State/ZIP CodePhone Number [facility] [address] [place] [id number], * Pap Smear (04/02/2022 10:35 AM EDT)Specimen (Source)Anatomical Location / LateralityCollection Method / VolumeCollection TimeReceived Time04/02/2022 10:35 AM EDT1 10:37 AM EDT Narrative COPATH - 04/12/2022 12:17 PM EDT [facility] ? [address] ? [place], [place] [address] ? Gynecologic Cytology Consultation ? Patient Name:DALIA BANKS:2000 (Age: 22)Gender:FTaken:2Reported:2Physician(s):PHILLIP Pink ([phone])Copy To: Rec. #:[id number]: #[id number] Final Cytologic Interpretation ThinPrep Pap Test (Cervical): Satisfactory for evaluation. A transformation zone component is present. NEGATIVE FOR INTRAEPITHELIAL LESION OR MALIGNANCY. ?? jja/04/12/2022 Interpretation performed at [facility], [address] [place] [address], License number: [id number]. Electronically Signed Out By ?JOREG Olson(ASCP) Date of Last Menstrual Period: ? 02/28/22 Other Clinical Conditions: Z01.419 Wool Shearer exam wo/abn findings Source of Specimen ??ThinPrep Pap Test (Cervical) ? Thin Prep Pap (LABOR CONCILIATOR) Fee Code(s): ?? G0145 Authorizing ProviderResult TypeResult StatusCayla Olivas ASSISTANCE REPRESENTATIVE-FORESTER SILVICULTURE PATHOLOGY/CYTOLOGY ORDERABLESFinal ResultPerforming OrganizationAddress City/State/ZIP CodePhone Number [facility] * Chlamydia/GC by PCR Omaira Swab (03/20/2022 6:33 PM EDT)ComponentValueRef Range Test MethodAnalysis TimePerformed AtPathologist SignatureSpecimen sourceCERVIX 03/20/2022 9:[address] [facility] LABComment:Corrected on 03/20 AT 2154: Previously reported as SWABChlamydia DNA PCRNegativeNegative^Negative 03/21/2022 12:[address] [facility] LABComment: ? Chlamydia trachomatis not detected by nucleic acid amplification. This does not exclude the possibility of infection because results are dependent on adequate specimen collection. ? Gonorrhea DNA PCRNegativeNegative^Dweffuzf95/12/2022 12:[address] [facility] LABComment: ? Neisseria gonorrhoeae not detected by nucleic acid amplification. This does not exclude the possibility of infection because results are dependent on adequate specimen collection. ? Specimen (Source)Anatomical Location / LateralityCollection Method / Volume Collection TimeReceived KkunAHXN38/11/2022 6:33 PM EDT1 9:50 PM EDT Narrative Authorizing ProviderResult TypeResult StatusComelissa Seaman MDMICROBIOLOGY - GENERAL ORDERABLESEdited Result - FinalPerforming OrganizationAddress City/State/ZIP CodePhone Number [facility] [address] [place] [address] from Last 3 Months or Most Recently Relevant to Health Maintenance Insurance Advance Directives * Full Code (Latest Code Status on File) Date ActivatedDate InactivatedComments02/17/2025 6:35 PM02/22/2025 6:48 PM * Full Code Date ActivatedDate RcphvhnviojHxbeculk83/27/2021 4:55 PM06/08/2021 4:33 PM * Full Code Date ActivatedDate InactivatedComments01/07/2018 6:44 AM01/07/2018 2:17 PM * Full Code Date ActivatedDate InactivatedComments10/23/2016 11:27 AM10/24/2016 12:42 PM * Full Code Date ActivatedDate InactivatedComments08/01/2016 12:52 AM08/01/2016 4:47 PM Care Teams Team MemberRelationshipSpecialtyStart DateEnd Date Dru Rodriguez DO [address] [place] [address] [facility]01/01/17
--- OUTSIDE RECORDS SUMMARY | 2025-06-08 18:46 | XMS_ITS | Encounter Summary ---
Author Organization [facility] tem Address [id number] [address] [place] [address] Care Team Providers Care Health Social Work Professor Name Role Phone Dru Rodriguez Primary Care Provider [phone]- [phone] Encounter Details DateTypeDepartmentCare Team (Latest Contact Info)Hdwfyerhaal72/29/2025Orders Only Maternal- Medicine at [facility] [address] [facility] [place] [phone] Clarita Mchugh, [facility] Social History Tobacco UseTypesPacks/DayYears UsedDateSmoking Tobacco: NeverSmokeless Tobacco: NeverAlcohol UseStandard Drinks/WeekCommentsYes0 (1 standard drink = 0.6 oz pure alcohol)[facility] UtilitiesAnswerDate RecordedIn the past 12 months has the [place], gas, oil, or water [employer] threatened to shut off services in your [...] care, and heating?Not hard at all02/17/2025PHQ-2AnswerDate RecordedTotal Qpcrf56006/12/2023Finhighland [facility] hospital [place] of Occupational Health - Occupational Stress QuestionnaireAnswerDate [...] and direction in my life.Agree02/17/2025Estimated Date of PsqgbxcoCvfuqbowNnt59/27/2026Based on last menstrual period of 10/30/2024Sex and Gender InformationValueDate RecordedSex Assigned at LilpvLqjlqk80/22/2025 1:51 AM EDTLegal SexFemale 01/13/2015 11:58 AM EDTGender JisvpkycDopnda60/22/2025 1:51 AM EDTSexual OrientationNot on filedocumented as of this encounter Plan of Treatment DateTypeDepartmentCare Team (Latest Contact Info)Qjchwcdxsni45/02/2026 3:30 PM ESTHospital Encounter [facility] US Imaging [address] [place] [phone] documented as of this encounter Visit Diagnoses Not on filedocumented in this encounter Additional Health Concerns AssessmentNoted TimePHQ-9 Depression Total Score: 8:31 AM ESTA Body Mass Index follow-up plan has been documented for the svxjyot5006/12/2023 4:35 PM ESTdocumented as of this encounter Care Teams Team MemberRelationshipSpecialtyStart DateEnd Date Dru Rodriguez DO [address] [place] [address] PCP - General01/01/17documented as of this encounter
--- OUTSIDE RECORDS SUMMARY | 2025-06-08 18:46 | XMS_ITS | Encounter Summary ---
Author Organization [facility] tem Address [id number] [address] [place] [address] Care Team Providers Care Water Well Driller Name Role Phone Dru Rodriguez Primary Care Provider [phone]- [phone] Encounter Details DateTypeDepartmentCare Team (Latest Contact Info)Nzqrqxqnaav36/30/2025Orders Only [facility] - Labor [address] [place] [phone] Bhumi Duval MD [address] [address] Social History Tobacco UseTypesPacks/DayYears UsedDateSmoking Tobacco: NeverSmokeless Tobacco: NeverAlcohol UseStandard Drinks/WeekCommentsYes0 (1 standard drink = 0.6 oz pure alcohol)[facility] UtilitiesAnswerDate RecordedIn the past 12 [...] care, and heating?Not hard at all02/17/2025PHQ-2AnswerDate RecordedTotal Yvzfg671Finamerican fork hospital [place] of Occupational Health - Occupational Stress QuestionnaireAnswerDate [...] and direction in my life.Agree02/17/2025Estimated Date of RejdshjzQmrsiellLco24/27/2026Based on last menstrual period of 10/30/2024Sex and Gender InformationValueDate RecordedSex Assigned at DboscMszoes35/22/2025 1:51 AM EDTLegal SexFemale 01/13/2015 11:58 AM EDTGender LmrexgxiBhnyda44/ 1:51 AM EDTSexual OrientationNot on filedocumented as of this encounter Plan of Treatment DateTypeDepartmentCare Team (Latest Contact Info)Aepngijkyyt08/02/2026 3:30 PM ESTHospital Encounter [facility] US Imaging [address] [place] [phone] documented as of this encounter Visit Diagnoses Not on filedocumented in this encounter Additional Health Concerns AssessmentNoted TimePHQ-9 Depression Total Score: 8:31 AM ESTA Body Mass Index follow-up plan has been documented for the sqqwhwv3206/12/2023 4:35 PM ESTdocumented as of this encounter Care Teams Team MemberRelationshipSpecialtyStart DateEnd Date Dru Rodriguez DO [address] [place] [address] PCP - General01/01/17documented as of this encounter
--- OUTSIDE RECORDS SUMMARY | 2025-06-08 18:46 | XMS_ITS | Encounter Summary ---
Author Organization [facility] Address [address] [facility] [place] [address] Care Team Providers Care Rn Pacu Name Role Phone Dru Rodriguez DO Primary Care Provider +1- [phone] Dru Rodriguez DO Unavailable [phone] Encounter Details DateTypeDepartmentCare Team (Latest Contact Info)Aasplxrufzb30/28/2025Abstract [facility] [address] [place] [phone] Dru Rodriguez, DO [address] [place] [address] Social History Tobacco UseTypesPacks/DayYears UsedDateSmoking Tobacco: NeverSmokeless [...] week03/11/2023How often do you attend orthodoxy or nondenominational services?1 to 4 times per year03/11/2023o you belong to any clubs or organizations such as orthodoxy groups, unions, fraternal or athletic laura ups, or school groups?No03/11/2023How often do you attend meetings of the clubs or organizations you belong to?Never03/11/2023re you , , , , never , or living with a partner?Ntembbu0403/11/2023 AUDIT-CAnswerDate RecordedQ1: How often do you have a drink containing alcohol? Monthly or less03/11/2023Q2: How many drinks containing alcohol do you have on a typical day when you are drinking?3 or Q3: How often do you have six or more drinks on one occasion?Less than usrjjom2303/11/2023Overall Financial Resource Strain (CARDIA)AnswerDate RecordedHow hard is it for you to pay for the very basics like food, housing, medical care, and heating?Somewhat hard 03/11/2023HQ-2AnswerDate RecordedPatient Health Questionnaire-2 Score0 03/25/2025Finshriners hospitals for [facility] [place] of Occupational Health - Occupational Stress QuestionnaireAnswerDate [...] slept in ashelter (including now)?No03/11/2023Estimated Date of KevmngppYsxizkdfWex78/27/2026Based on last menstrual period of 10/30/2024Sex and Gender InformationValueDate RecordedSex Assigned at SkncqYrtyso42/01/2023 1:10 PM EDTLegal TxjJtuwvy59/15/2023 6:51 PM EDTGender CifstoigBepesp59/01/2023 1:10 PM EDTSexual QjkwkgvaqqiEwqzzaxq60/01/2023 1:10 PM EDTdocumented as of this encounter Plan of Treatment DateTypeDepartmentCare Team (Latest Contact Info)Qkqkywwrsgi91/07/2026 4:00 PM ESTRoutine [facility] Issac [place] [address] [place] [address] Dixie Gan, SHWAN [address] [place] [address] 06/30/2025 3:50 PM ESTRoutine NOMAislinn [place]ILLO [address] [place] [address] Kolton Cao, [address] [place] [address] documented as of this encounter Goals GoalPatient Goal TypeAssociated ProblemsRecent ProgressPatient-Stated?Author Reminders Care PlanOB RemindersNoOpen Scheduling, Backgrounddocumented as of this encounter Visit Diagnoses Not on filedocumented in this encounter Additional Health Concerns Active ProblemsNoted DateDiagnosed DateOB Ljhcuxlwz25/24/2025 documented as of this encounter Care Teams Team MemberRelationshipSpecialtyStart DateEnd Date Dru Rodriguez DO [address] [place] [address] PCP - GeneralFamily Medicine10/22/22 Dru Rodriguez DO [address] [place] [address] PCP - Medical [place] Tbomxhhjcf36/1/2312documented as of this encounter
--- OUTSIDE RECORDS SUMMARY | 2025-06-08 18:46 | XMS_ITS | Encounter Summary ---
Author Organization [facility] tem Address [id number] [address] [place] [address] Care Team Providers Care Dry Mixer Name Role Phone JenniferDru April MUNGUIA Primary Care Provider [phone]- [phone] Encounter Details DateTypeDepartmentCare Team (Latest Contact Info)Iitqyqswowl38/19/2025Telephone Maternal- Medicine at [facility] [address] [place] [phone] Odilia Dumas RN [address] [address] Social History Tobacco UseTypesPacks/DayYears UsedDateSmoking Tobacco: NeverSmokeless Tobacco: NeverAlcohol UseStandard Drinks/WeekCommentsYes0 (1 standard drink = 0.6 oz pure alcohol)[facility] UtilitiesAnswerDate RecordedIn the past 12 [...] care, and heating?Not hard at all02/17/2025PHQ-2AnswerDate RecordedTotal Afukw310Finlakeview hospital [place] of Occupational Health - Occupational Stress QuestionnaireAnswerDate [...] a household?No02/17/2025hildcareAnswerDate RecordedDo problems getting early childhood associate make it difficult for you to [...] and direction in my life.Agree02/17/2025Estimated Date of RdydhoraShqpdfakXrl90/27/2026ased on last menstrual period of 10/30/2024Sex and Gender InformationValueDate RecordedSex Assigned at EqcycGmmoll65/22/2025 1:51 AM EDTLegal SexFemale 01/13/2015 11:58 AM EDTGender FazclnqpOoykwk57/22/2025 1:51 AM EDTSexual OrientationNot on filedocumented as of this encounter Miscellaneous Notes * Telephone Encounter - Odilia Dumas RN - 05/28/2025 10:34 AM ESTSummary: [facility] [employer] Called. No answer. [...] Plan of Treatment DateTypeDepartmentCare Team (Latest Contact Info)Dmhdiynlhuy36/02/2026 3:30 PM ESTHospital Encounter [facility] US Imaging [address] [place] [phone] documented as of this encounter Visit Diagnoses Diagnosis Uncontrolled type 1 diabetes mellitus with hyperglycemia, with long-term current use of insulin ([facility]) documented in this encounter Additional Health Concerns AssessmentNoted TimePHQ-9 Depression Total Score: 8:31 AM ESTA Body Mass Index follow-up plan has been documented for the qtdjkig2406/12/2023 4:35 PM ESTdocumented as of this encounter Care Teams Team MemberRelationshipSpecialtyStart DateEnd Date Dru Rodriguez DO [address] [place] [address] PCP - General01/01/17documented as of this encounter
--- OUTSIDE RECORDS SUMMARY | 2025-06-08 18:46 | XMS_ITS | Encounter Summary ---
Author Organization [facility] tem Address [id number] [address] [place] [address] Care Team Providers Care Application Software Engineer Name Role Phone JenniferDur April MUNGUIA Primary Care Provider [phone]- [phone] Encounter Details DateTypeDepartmentCare Team (Latest Contact Info)Mtkcbstfnjk09/23/2025Telephone Maternal- Medicine at [facility] [address] [place] [phone] Odilia Dumas RN [address] [address] Social History Tobacco UseTypesPacks/DayYears UsedDateSmoking Tobacco: NeverSmokeless [...] care, and heating?Not hard at all02/17/2025PHQ-2AnswerDate RecordedTotal Azvcs811Finamerican fork hospital [place] of Occupational Health - Occupational Stress QuestionnaireAnswerDate [...] and direction in my life.Agree02/17/2025Estimated Date of RnsypbymTdstinmaYak11/27/2026ased on last menstrual period of 10/30/2024Sex and Gender InformationValueDate RecordedSex Assigned at OwpkkQzcsbp11/22/2025 1:51 AM EDTLegal SexFemale 01/13/2015 11:58 AM EDTGender VgoofyflFlleyk62/22/2025 1:51 AM EDTSexual OrientationNot on filedocumented as of this encounter Miscellaneous Notes * Telephone Encounter - Odilia Dumas RN - 06/01/2025 2:38 PM ESTSummary: [facility] [employer] Reports & [...] office to schedule an appointment with an [facility] provider. everbill message also sent. documented in this encounter Plan of Treatment DateTypeDepartmentCare Team (Latest Contact Info)Sasdlhtwzsv53/02/2026 3:30 PM ESTHospital Encounter [facility] - [facility] US Imaging [address] [place] [address] documented as of this encounter Visit Diagnoses Diagnosis Uncontrolled type 1 diabetes mellitus with hyperglycemia, with long-term current use of insulin ([facility] documented in this encounter Additional Health Concerns AssessmentNoted TimePHQ-9 Depression Total Score: 8:31 AM ESTA Body Mass Index follow-up plan has been documented for the fiqofjq8006/12/2023 4:35 PM ESTdocumented as of this encounter Care Teams Team MemberRelationshipSpecialtyStart DateEnd Date Dru Rodriguez DO [address] [place] [address] PCP - General01/01/17documented as of this encounter
--- OUTSIDE RECORDS SUMMARY | 2025-06-08 18:46 | XMS_ITS | Encounter Summary ---
Author Organization [facility] Address [address] [place] [address] Care Team Providers Care Shear Scrapman Name Role Phone Joqauín Rodriguez DO Primary Care Provider [phone]- [phone] Joaquín Rodriguez DO Unavailable [phone] Encounter Details DateTypeDepartmentCare Team (Latest Contact Info)Tohcjbkabyq12/26/2025Clinisync Result Encounter [facility] External Department Unsolicited Bryant Cao DO [address] [place] [address] Social History Tobacco UseTypesPacks/DayYears UsedDateSmoking Tobacco: NeverSmokeless [...] week03/11/2023How often do you attend denominational or advent services?1 to 4 times per year03/11/2023o you belong to any clubs or organizations such as denominational groups, unions, fraternal or athletic laura ups, or school groups?No03/11/2023How often do you attend meetings of the clubs or organizations you belong to?Never03/11/2023re you , , , , never , or living with a partner?Ueibxdj8103/11/2023 AUDIT-CAnswerDate RecordedQ1: How often do you have a drink containing alcohol? Monthly or less03/11/2023Q2: How many drinks containing alcohol do you have on a typical day when you are drinking?3 or Q3: How often do you have six or more drinks on one occasion?Less than lqadwbu7803/11/2023Overall Financial Resource Strain (CARDIA)AnswerDate RecordedHow hard is it for you to pay for the very basics like food, housing, medical care, and heating?Somewhat hard 03/11/2023HQ-2AnswerDate RecordedPatient Health Questionnaire-2 Score0 03/25/2025[facility] - Occupational Stress QuestionnaireAnswerDate [...] slept in ashelter (including now)?No03/11/2023Estimated Date of QckonowmRfaqenpoYxh43/27/2026ased on last menstrual period of 10/30/2024Sex and Gender InformationValueDate RecordedSex Assigned at HvlllOmayhy09/01/2023 1:10 PM EDTLegal BhdDzbbqz54/15/2023 6:51 PM EDTGender LibgwzqzQpnfvq86/01/2023 1:10 PM EDTSexual BhytrhtmblcPkxpacuc96/01/2023 1:10 PM EDTdocumented as of this encounter Plan of Treatment DateTypeDepartmentCare Team (Latest Contact Info)Ztgmamelewa54/07/2026 4:00 PM ESTRoutine [facility] PORTILLO [address] [place] [address] Dixie Gan, COMPLIANCE TESTER [address] [place] [address] 06/30/2025 3:50 PM ESTRoutine NOMAislinn PORTILLO [address] [place] [address] Bryant Cao DO [address] [place] [address] documented as of this encounter Goals GoalPatient Goal TypeAssociated ProblemsRecent ProgressPatient-Stated?Author Reminders Care PlanOB RemindersNoOpen Scheduling, Backgrounddocumented as of this encounter Procedures Procedure NamePriorityDate/TimeAssociated DiagnosisCommentsUS OB BPP W NON-XUVOHL8306/04/2025 9:11 PM EST documented in this encounter Results * US OB BPP W NON-STRESS (06/04/2025 9:11 PM EST)Anatomical Region LateralityModalityOtherSpecimen (Source)Anatomical Location / Laterality Collection Method / VolumeCollection TimeReceived Time06/04/2025 9:11 PM EST Narrative 06/04/2025 9:14 PM EST [facility] ?[address] ? [place] [address] ? Ultrasound Report ? Signed ? Patient: KAELYN SHAW ?MR#: [id number] ?? : 2000 ?Acct:[id number] ?? Age/Sex: 25 / F ?ADM Date: 06/04/25 ?? Loc: US ? Attending Dr: Bryant Cao D.O. ? Ordering Physician: Bryant Cao D.O. ?? Date of Service: 06/04/25 ?? Procedure(s): US OB BPP w non-stress ?? Accession Number(s): [id number] ? cc: Bryant Cao D.O.; JOAQUÍN RODRIGUEZ ? [facility] ? [facility] [address] ? [place] [address] ? Patient Name: ?? KAELYN SHAW ? MRN: [facility]:[id number] ? date: 2000 ?Sex: F ?? Assigned Patient Location: [facility] ?? Current Patient Location: ? Accession/Order Number: [id number] ?? Exam Date: 06/04/2025 ??19:00 ?Report Date: [...] M.D. ??06/04/2025 9:11 PM ? Dictation Location: [facility] ? Electronically authenticated by: [id number] ??Y ?? Date: 06/04/2025 ??21:11 ? Dictated By: ?Robert Jesus D.O. ? Signed By: ?06/04/252113 ? DD/ 2111 ? TD/TT: ? Edger Liner: Procedure Note Radiology, Radiologist, MD - 06/04/2025 [place] [address] Ultrasound Report Signed Patient: KAELYN SHAW MMR#: [id number] : 2000Acct:[id number] Age/Sex: 25 / FADM Date: 06/04/25 Loc: US Attending Dr: Bryant Cao D.O. Ordering Physician: Bryant Cao D.O. Date of Service: 06/04/25 Procedure(s): US OB BPP w non-stress Accession Number(s): [id number] cc: Bryant Cao D.O.; JOAQUÍN RODRIGUEZ The [place] [id number] Patient Name: KAELYN SHAW MRN: [id number] date: 2000 Sex: F Assigned Patient Location: [facility] Current Patient Location: Accession/Order Number: [id number] Exam Date: 06/04/2025 19:00 Report Date: 06/04/2025 [...] Jesus M.D. 06/04/2025 9:11 PM Dictation Location: [place] [address] Electronically authenticated by: [id number] Y Date: 1:11 Dictated By: Robert Jesus D.O. Signed By:06/04/252113 DD/ 10 TD/TT: Edger Liner: Authorizing ProviderResult TypeResult StatusCorey Kiley DOCLINISYNC IMAGINGFinal Result documented in this encounter Visit Diagnoses Not on filedocumented in this encounter Additional Health Concerns Active ProblemsNoted DateDiagnosed DateOB Wqzmkvmvk57/24/2025 documented as of this encounter Care Teams Team MemberRelationshipSpecialtyStart DateEnd Date Joaquín Rodriguez DO [address] [place] [address] [facility] - [facility] Medicine10/22/22 Joaquín Rodriguez DO [address] [place] [address] PCP - Medical [place] Gdmhmstrpi95/1/2312documented as of this encounter
--- OUTSIDE RECORDS SUMMARY | 2025-06-08 18:46 | XMS_ITS | Encounter Summary ---
Author Organization [facility] tem Address [id number] [address] [place] [address] Care Team Providers Care Kettle Chipper Name Role Phone JenniferDru April MUNGUIA Primary Care Provider [phone]- [phone] Encounter Details DateTypeDepartmentCare Team (Latest Contact Info)Vvtrdkbseun75/19/2025Orders Only Maternal- Medicine at [facility] [address] [place] [phone] Odilia Dumas RN [address] [address] Social History Tobacco UseTypesPacks/DayYears UsedDateSmoking Tobacco: NeverSmokeless [...] care, and heating?Not hard at all02/17/2025PHQ-2AnswerDate RecordedTotal Znnxr05106/12/2023[facility] [employer] of Occupational Health - Occupational Stress QuestionnaireAnswerDate [...] household?No02/17/2025hildcareAnswerDate RecordedDo problems getting early childhood education specialist make it difficult for you to [...] and direction in my life.Agree02/17/2025Estimated Date of WuhtzdimCcrubgqlVms23/27/2026Based on last menstrual period of 10/30/2024Sex and Gender InformationValueDate RecordedSex Assigned at MhipgAyknmj72/22/2025 1:51 AM EDTLegal SexFemale 01/13/2015 11:58 AM EDTGender CfwnjianTrrxlh47/22/2025 1:51 AM EDTSexual OrientationNot on filedocumented as of this encounter Plan of Treatment DateTypeDepartmentCare Team (Latest Contact Info)Dgcmdrxjcgz00/02/2026 3:30 PM ESTHospital Encounter [facility] Imaging [address] [place] [address] documented as of this encounter Visit Diagnoses Not on filedocumented in this encounter Additional Health Concerns AssessmentNoted TimePHQ-9 Depression Total Score: 8:31 AM ESTA Body Mass Index follow-up plan has been documented for the sklcedx8806/12/2023 4:35 PM ESTdocumented as of this encounter Care Teams Team MemberRelationshipSpecialtyStart DateEnd Date Dru Rodriguez DO [address] [place] [address] PCP - General01/01/17documented as of this encounter
--- OUTSIDE RECORDS SUMMARY | 2025-06-08 18:46 | XMS_ITS | Encounter Summary ---
Author Organization [facility] tem Address [id number] [address] [place] [address] Care Team Providers Care Director Sales And Trade Marketing Name Role Phone JenniferDru April MUNGUIA Primary Care Provider [phone]- [phone] Encounter Details DateTypeDepartmentCare Team (Latest Contact Info)Rskxhrtyiyy55/23/2025Orders Only Maternal- Medicine at [facility] [address] [place] [phone] Bhumi Duval MD [address] [facility], [address] [place] [address] Social History Tobacco UseTypesPacks/DayYears UsedDateSmoking Tobacco: NeverSmokeless Tobacco: NeverAlcohol UseStandard Drinks/WeekCommentsYes0 (1 standard drink = 0.6 oz pure alcohol)[facility] UtilitiesAnswerDate RecordedIn the past 12 months has [...] care, and heating?Not hard at all02/17/2025PHQ-2AnswerDate RecordedTotal Jnxhu760Finintermountain medical center [place] of Occupational Health - Occupational Stress QuestionnaireAnswerDate [...] part of a household?No02/17/2025hildcareAnswerDate RecordedDo problems getting childhood development teacher make it difficult for you [...] and direction in my life.Agree02/17/2025Estimated Date of EpbaddxhWvibtkpiMlj47/27/2026ased on last menstrual period of 10/30/2024Sex and Gender InformationValueDate RecordedSex Assigned at GbpjnXrcwez71/22/2025 1:51 AM EDTLegal SexFemale 01/13/2015 11:58 AM EDTGender HeqhdgtpGynijm39/22/2025 1:51 AM EDTSexual OrientationNot on filedocumented as of this encounter Plan of Treatment DateTypeDepartmentCare Team (Latest Contact Info)Hywqkwapcgm30/02/2026 3:30 PM ESTHospital Encounter [facility] Imaging [address] [place] [phone] documented as of this encounter Visit Diagnoses Not on filedocumented in this encounter Additional Health Concerns AssessmentNoted TimePHQ-9 Depression Total Score: 8:31 AM ESTA Body Mass Index follow-up plan has been documented for the eadjglp9006/12/2023 4:35 PM ESTdocumented as of this encounter Care Teams Team MemberRelationshipSpecialtyStart DateEnd Date Dru Rodriguez DO [address] [place] [address] PCP - General01/01/17documented as of this encounter
--- OUTSIDE RECORDS SUMMARY | 2025-06-08 18:46 | XMS_ITS | Encounter Summary ---
Author Organization [facility] Address [address] [place] [address] Care Team Providers Care Operator Assistant I Cementing Name Role Phone Dru Rodriguez DO Primary Care Provider [phone]- [phone] Dru Rodriguez DO Unavailable [phone] Encounter Details DateTypeDepartmentCare Team (Latest Contact Info)Aoykejsakfa71/29/2025Telephone [facility] [address] [place] [phone] Katja Swanson LPN [address] [place] [address] Social History Tobacco UseTypesPacks/DayYears UsedDateSmoking Tobacco: NeverSmokeless [...] relatives?Twice a week03/11/2023How often do you attend synagogue or sikh services?1 to 4 times per year03/11/2023o you belong to any clubs or organizations such as synagogue groups, unions, fraternal or athletic laura ups, or school groups?No03/11/2023How often do you attend meetings of the clubs or organizations you belong to?Never03/11/2023re you , , , , never , or living with a partner?Zkslwzy3803/11/2023 AUDIT-CAnswerDate RecordedQ1: How often do you have a drink containing alcohol? Monthly or less03/11/2023Q2: How many drinks containing alcohol do you have on a typical day when you are drinking?3 or Q3: How often do you have six or more drinks on one occasion?Less than dtlyybc0503/11/2023Overall Financial Resource Strain (CARDIA)AnswerDate RecordedHow hard is it for you to pay for the very basics like food, housing, medical care, and heating?Somewhat hard 03/11/2023HQ-2AnswerDate RecordedPatient Health Questionnaire-2 Score0 03/25/2025[facility] [place] of Occupational Health - Occupational Stress QuestionnaireAnswerDate [...] slept in ashelter (including now)?No03/11/2023Estimated Date of HdohlvdsVzxvxytqWsy48/27/2026ased on last menstrual period of 10/30/2024Sex and Gender InformationValueDate RecordedSex Assigned at VfndxJxcsoq71/01/2023 1:10 PM EDTLegal HboZyztra66/15/2023 6:51 PM EDTGender MfwkwisjGniwst12/01/2023 1:10 PM EDTSexual XhnhsgxapqyHtivcldr34/01/2023 1:10 PM EDTdocumented as of this encounter Miscellaneous Notes * Telephone Encounter - Katja Swanson, CHIEF QUALITY OFFICER - 06/07/2025 2:57 PM EST Hi, this is Esther Shaw. I am just calling to see kind of what DR Cao's input is. I have not had anything crazy up until I would say like 28 weeks I started with just like swelling in my feet. I have been having higher blood pressures like 140 to 150 systolic and like 70 to 115 diastolic. I do get headaches sometimes. I do not know if it is typically out of the normal for me. I guess where my concern is for like the pre eclampsia I have been like spilling in my recent labs like protein and blood kind of in the urine, so I just want to make sure nothing is affecting my kidneys. I am having some concentrated urine even when I am hydrating. And I noticed when I got up the last timefrom going to the bathroom like a little dribble, got on to the seat and it was like paint tinge, so I just want to make sure that it is not affecting my kidneys and then every time I go into labor and delivery, my blood pressure is fine, but they always use like, the larger cuff every time and I do not feel like it is giving accurate readings because when I am checking at home and it is never under like 130 It is mostly reading 140 s, 150 s. I know he is trying to, like, watch that closely with my chances of getting free clan. So I just did not know if he wanted me to be seen. And so I just wanted to let him know ahead of time. So he kind of prepared for me to Go in there and see what he wants to monitor. He can give me a call back. My phone number is [phone]. And then I am sorry ifyou need my date of . It is february 11. Again, just give me a call back and just letme know. What I should do. Thank you. After talking Katharine Cummins PA-C, I called to let her know that we want to be seen tomorrow and would like for her to get some lab work done. Pt did not answer phone but labs were sent and detailed voicemail left. documented in this encounter Plan of Treatment DateTypeDepartmentCare Team (Latest Contact Info)Ydecasevglz29/07/2026 4:00 PM ESTRoutine [facility] Issac PORTILLO [address] [place] [address] Dixie Gan NP [address] [place] [address] 06/30/2025 3:50 PM ESTRoutine [facility] Issac PORTILLO [address] [place] [address] Kolton Cao, [address] [place] [id number] NameTypePriorityAssociated DiagnosesOrder ScheduleCreatinineLabRoutine induced hypertension, antepartum (HHS-HCC) Expected: 06/07/2025 (Approximate), Expires: 06/07/2026Protein, urine, 24 hour LabRoutine induced hypertension, antepartum (HHS-HCC) Expected: 06/07/2025 (Approximate), Expires: 06/07/2026Pt and pttLabRoutine induced hypertension, antepartum (HHS-HCC) Expected: 06/07/2025, Expires: 06/07/2026BC and differentialLabRoutine induced hypertension, antepartum (HHS-HCC) Expected: 06/07/2025 (Approximate), Expires: 06/07/2026Uric acidLabRoutine induced hypertension, antepartum (HHS-HCC) Expected: 06/07/2025 (Approximate), Expires: 06/07/2026Lactate dehydrogenaseLab Routine induced hypertension, antepartum (HHS-HCC) Expected: 06/07/2025, Expires: 06/07/2026LTLabRoutine induced hypertension, antepartum (HHS-HCC) Expected: 06/07/2025 (Approximate), Expires: 06/07/2026STLabRoutine induced hypertension, antepartum (HHS-HCC) Expected: 06/07/2025 (Approximate), Expires: 06/07/2026UNLabRoutine induced hypertension, antepartum (HHS-HCC) Expected: 06/07/2025, Expires: 06/07/2026Protein / creatinine ratio, urineLab Routine induced hypertension, antepartum (HHS-HCC) Expected: 06/07/2025 (Approximate), Expires: 06/07/2026documented as of this encounter Goals GoalPatient Goal TypeAssociated ProblemsRecent ProgressPatient-Stated?Author Reminders Care PlanOB RemindersNoOpen Scheduling, Backgrounddocumented as of this encounter Visit Diagnoses Diagnosis induced hypertension, antepartum (HHS-HCC) Transient hypertension of , antepartum documented in this encounter Additional Health Concerns Active ProblemsNoted DateDiagnosed DateOB Vaslfgriy92/ documented as of this encounter Care Teams Team MemberRelationshipSpecialtyStart DateEnd Date Dru Rodriguez DO [address] [place] [address] PCP - GeneralFamily Medicine10/22/22 Dru Rodriguez DO [address] [place] [address] PCP - Medical [place] Gggnvvrabf44/1/2312documented as of this encounter
--- OUTSIDE RECORDS SUMMARY | 2025-06-08 18:46 | XMS_ITS | Encounter Summary ---
Author Organization [facility] Address [address] [place] [address] Care Team Providers Care Academic Intern Name Role Phone Dru Rodriguez DO Primary Care Provider [phone]- [phone] Dru Rodriguez DO Unavailable [phone] Encounter Details DateTypeDepartmentCare Team (Latest Contact Info)Xxzszkgixpc29/21/2025External Result Encounter [facility] External Department Unsolicited Kolton Cao DO [address] [place] [address] Social History Tobacco UseTypesPacks/DayYears UsedDateSmoking Tobacco: NeverSmokeless [...] week03/11/2023How often do you attend hinduism or synagogue services?1 to 4 times per year03/11/2023o you belong to any clubs or organizations such as hinduism groups, unions, fraternal or athletic laura ups, or school groups?No03/11/2023How often do you attend meetings of the clubs or organizations you belong to?Never03/11/2023re you , , , , never , or living with a partner?Dfcdmem1803/11/2023 AUDIT-CAnswerDate RecordedQ1: How often do you have a drink containing alcohol? Monthly or less03/11/2023Q2: How many drinks containing alcohol do you have on a typical day when you are drinking?3 or Q3: How often do you have six or more drinks on one occasion?Less than tahslob8503/11/2023Overall Financial Resource Strain (CARDIA)AnswerDate RecordedHow hard is it for you to pay for the very basics like food, housing, medical care, and heating?Somewhat hard 03/11/2023HQ-2AnswerDate RecordedPatient Health Questionnaire-2 Score0 03/25/2025[facility] [place] of Occupational Health - Occupational Stress QuestionnaireAnswerDate [...] slept in ashelter (including now)?No03/11/2023Estimated Date of ZdknqgddPhajctxrKue05/27/2026ased on last menstrual period of 10/30/2024Sex and Gender InformationValueDate RecordedSex Assigned at RwhhjBlccgm38/01/2023 1:10 PM EDTLegal JsfJkcuci39/15/2023 6:51 PM EDTGender EmavdvvoBglfjq22/01/2023 1:10 PM EDTSexual SgzugktkgylNazkdtgb50/01/2023 1:10 PM EDTdocumented as of this encounter Plan of Treatment DateTypeDepartmentCare Team (Latest Contact Info)Xjzmrknxdnl41/07/2026 4:00 PM ESTRoutine [facility] Issac PORTILLO [address] [place] [address] Dixie Gan, ALL SOURCE ANALYST [address] [place] [address] 06/30/2025 3:50 PM ESTRoutine NOMAislinn PORTILLO [address] [place] [address] Kolton Cao DO [address] [place] [address] documented as of this encounter Goals GoalPatient Goal TypeAssociated ProblemsRecent ProgressPatient-Stated?Author Reminders Care PlanOB RemindersNoOpen Scheduling, Backgrounddocumented as of this encounter Procedures Procedure NamePriorityDate/TimeAssociated DiagnosisCommentsCULTURE, URINE, SFYFBOLBbdnfjt62/21/2025 10:45 PM EST documented in this encounter Results * Urine culture (05/30/2025 10:45 PM EST)ComponentValueRef RangeTest Method Analysis TimePerformed AtPathologist SignatureFRMC NOTE <9,000 colonies/ml mixed ?bacterial skin contaminants ?2 Days 06/02/2025 11:14 AM [facility] CtrSpecimen (Source)Anatomical Location / LateralityCollection Method / VolumeCollection TimeReceived Time Clean-Voided Midstream (Clean Void Midstream)05/30/2025 10:45 PM EST05/31/2025 12:[address] [facility] - 06/02/2025 11:14 AM EST Diagnosis: leaking fluid Comment: Authorizing ProviderResult TypeResult StatusCorey Kiley DOLAB MICROBIOLOGY - GENERAL ORDERABLESFinal ResultPerforming OrganizationAddressCity/State/ZIP Code Phone Number [facility] [address] [place] [address], [facility] [address] [place] [address] documented in this encounter Visit Diagnoses Not on filedocumented in this encounter Additional Health Concerns Active ProblemsNoted DateDiagnosed DateOB Jgvocwswy66/24/2025 documented as of this encounter Care Teams Team MemberRelationshipSpecialtyStart DateEnd Date Dru Rodriguez, DO [address] [place] [address] PCP - GeneralFamily Medicine10/22/22 Dru Rodriguez, DO [address] [place] [address] PCP - Medical [place] Nekljfxdre83/1/2312documented as of this encounter
--- OUTSIDE RECORDS SUMMARY | 2025-06-08 18:46 | XMS_ITS | Encounter Summary ---
Author Organization [facility] tem Address [id number] [address] [place] [address] Care Team Providers Care Brush Filler Hand Name Role Phone Dru Rodriguez Primary Care Provider [phone] Encounter Details DateTypeDepartmentCare Team (Latest Contact Info)Qlgcwvpgkon85/22/2025Orders Only Maternal- Medicine at [facility] [address] [facility] [place] [phone] Clarita Mchugh, [facility] Social History Tobacco UseTypesPacks/DayYears UsedDateSmoking Tobacco: NeverSmokeless Tobacco: NeverAlcohol UseStandard Drinks/WeekCommentsYes0 (1 standard drink = 0.6 oz pure alcohol)[facility] UtilitiesAnswerDate RecordedIn the past 12 months has the RECCY, gas, oil, or water Evino threatened to shut off services in your [...] care, and heating?Not hard at all02/17/2025PHQ-2AnswerDate RecordedTotal Yembo58906/12/2023[facility] [place] of Occupational Health - Occupational Stress QuestionnaireAnswerDate [...] a household?No02/17/2025hildcareAnswerDate RecordedDo problems getting child care attendant school make it difficult for you to work [...] and direction in my life.Agree02/17/2025Estimated Date of FessqoioLwvwbwqqNbg43/27/2026Based on last menstrual period of 10/30/2024Sex and Gender InformationValueDate RecordedSex Assigned at CrcrrCttjaa60/22/2025 1:51 AM EDTLegal SexFemale 01/13/2015 11:58 AM EDTGender BdsztlwqQydpik50/22/2025 1:51 AM EDTSexual OrientationNot on filedocumented as of this encounter Plan of Treatment DateTypeDepartmentCare Team (Latest Contact Info)Zmzxxzjwspz02/02/2026 3:30 PM ESTHospital Encounter [facility] Imaging [address] [place] [phone] documented as of this encounter Visit Diagnoses Not on filedocumented in this encounter Additional Health Concerns AssessmentNoted TimePHQ-9 Depression Total Score: 8:31 AM ESTA Body Mass Index follow-up plan has been documented for the fwikzgo0906/12/2023 4:35 PM ESTdocumented as of this encounter Care Teams Team MemberRelationshipSpecialtyStart DateEnd Date Dru Rodriguez DO [address] [place] [address] PCP - General01/01/17documented as of this encounter
--- OUTSIDE RECORDS SUMMARY | 2025-06-08 18:46 | XMS_ITS | Encounter Summary ---
Author Organization [facility] Address [address] [place] [address] Care Team Providers Care Curtain Hemmer Automatic Name Role Phone Joaquín Rodriguez DO Primary Care Provider [phone] Joaquín Rodriguez DO Unavailable [phone] Encounter Details DateTypeDepartmentCare Team (Latest Contact Info)Tbvankzouwe86/19/2025Clinisync Result Encounter [facility] External Department Unsolicited Bryant Cao DO [address] [place] [place] [address] Social History Tobacco UseTypesPacks/DayYears UsedDateSmoking Tobacco: NeverSmokeless [...] week03/11/2023How often do you attend jain or yarsanism services?1 to 4 times per year03/11/2023o you belong to any clubs or organizations such as jain groups, unions, fraternal or athletic laura ups, or school groups?No03/11/2023How often do you attend meetings of the clubs or organizations you belong to?Never03/11/2023re you , , , , never , or living with a partner?Zylvebz1303/11/2023 AUDIT-CAnswerDate RecordedQ1: How often do you have a drink containing alcohol? Monthly or less03/11/2023Q2: How many drinks containing alcohol do you have on a typical day when you are drinking?3 or Q3: How often do you have six or more drinks on one occasion?Less than makeldk7803/11/2023Overall Financial Resource Strain (CARDIA)AnswerDate RecordedHow hard is it for you to pay for the very basics like food, housing, medical care, and heating?Somewhat hard 03/11/2023HQ-2AnswerDate RecordedPatient Health Questionnaire-2 Score0 03/25/2025[facility] [place] of Occupational Health - Occupational Stress QuestionnaireAnswerDate [...] slept in ashelter (including now)?No03/11/2023Estimated Date of PdmqvpzgGabjrxkcLss97/27/2026ased on last menstrual period of 10/30/2024Sex and Gender InformationValueDate RecordedSex Assigned at HqodsKurgtw11/01/2023 1:10 PM EDTLegal EjxOlvpwf35/15/2023 6:51 PM EDTGender GuhdtxlhIzjyjv26/01/2023 1:10 PM EDTSexual EprhbkvzsysNyfbgvdu64/01/2023 1:10 PM EDTdocumented as of this encounter Plan of Treatment DateTypeDepartmentCare Team (Latest Contact Info)Tjlicnednam33/07/2026 4:00 PM ESTRoutine [facility] Issac PORTILLO [address] [place] [address] Dixie Gan, LINEMAN APPRENTICE [address] [facility] [address] [place] [address] 06/30/2025 3:50 PM ESTRoutine NOMAislinn PORTILLO [address] [address] Bryant Cao DO [address] [facility] [address] [facility] [address] [place] [address] documented as of this encounter Goals GoalPatient Goal TypeAssociated ProblemsRecent ProgressPatient-Stated?Author Reminders Care PlanOB RemindersNoOpen Scheduling, Backgrounddocumented as of this encounter Procedures Procedure NamePriorityDate/TimeAssociated DiagnosisCommentsUS OB BPP W NON-XSXXQT5805/28/2025 11:24 PM EST URINE CULTURE - UJEYFebyozj24/19/2025 12:44 PM EST documented in this encounter Results * US OB BPP W NON-STRESS (05/28/2025 11:24 PM EST)Anatomical Region LateralityModalityOtherSpecimen (Source)Anatomical Location / Laterality Collection Method / VolumeCollection TimeReceived Time05/28/2025 11:24 PM EST Narrative 05/28/2025 11:27 PM EST [facility] ?[address] ? [place] [address] ? Ultrasound Report ? Signed ? Patient: KAELYN SHAW ?MR#: [id number] ?? : 2000 ?Acct:[id number] ?? Age/Sex: 25 / F ?ADM Date: 05/28/25 ?? Loc: US ? Attending Dr: Bryant Cao D.O. ? Ordering Physician: Bryant Cao D.O. ?? Date of Service: 05/28/25 ?? Procedure(s): US OB BPP w non-stress ?? Accession Number(s): [id number] ? cc: Bryant Cao D.O.; JOAQUÍN RODRIGUEZ ? [facility] ? [address] ? [place] [address] ? Patient Name: ?? KAELYN SHAW ? MRN: [facility]:[id number] ? date: 2000 ?Sex: F ?? Assigned Patient Location: ?? Current Patient Location: [place] ?? Accession/Order Number: [id number] ?? Exam Date: 05/28/2025 ??16:19 ?Report Date: [...] Dictation Location: RADIO-PC-17 ? Electronically authenticated by: [id number] ??Y ?? Date: 05/28/2025 ??23:24 ? Dictated By: ?Prashanth Orta M.D. ? Signed By: ?12/19/25 2327 ? DD/ ? TD/TT: ? Physician Relations Manager: Procedure Note Radiology, Radiologist, - 05/28/2025 [place] [address] Ultrasound Report Signed Patient: KAELYN SHAW MMR#: [id number] : 2000Acct:[id number] Age/Sex: 25 / FADM Date: 05/28/25 Loc: US Attending Dr: Bryant Cao D.O. Ordering Physician: Bryant Cao D.O. Date of Service: 05/28/25 Procedure(s): US OB BPP w non-stress Accession Number(s): [id number] cc: Bryant Cao D.O.; JOAQUÍN RODRIGUEZ The [address] [address] Patient Name: KAELYN SHAW MRN: [id number] date: 2000 Sex: F Assigned Patient Location: Current Patient Location: Accession/Order Number: [id number] Exam Date: 05/28/2025 16:19 Report Date: 05/28/2025 [...] Orta M.D. 05/28/2025 11:24 PM Dictation Location: [place] [address] Electronically authenticated by: [id number] Y Date: 3:24 Dictated By: Prashanth Orta M.D. Signed By:05/28/252326 DD/ 23 TD/TT: Physician Relations Manager: Authorizing ProviderResult TypeResult StatusCorey Kiley DOCLINISYNC IMAGINGFinal [...] ORDERABLES Final ResultPerforming OrganizationAddressCity/State/ZIP CodePhone Number [facility] documented in this encounter Visit Diagnoses Not on filedocumented in this encounter Additional Health Concerns Active ProblemsNoted DateDiagnosed DateOB Emzdnjhgh70/24/2025 documented as of this encounter Care Teams Team MemberRelationshipSpecialtyStart DateEnd Date Joaquín Rodriguez DO [address] [place] [address] PCP - GeneralFamily Medicine10/22/22 Joaquín Rodriguez DO [address] [place] [address] PCP - Medical Bloomer Wfrhacause98/1/2312documented as of this encounter
--- OUTSIDE RECORDS SUMMARY | 2025-06-08 18:46 | XMS_ITS | Encounter Summary ---
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 Name Role Phone Dru Rodriguez DO Primary Care Provider [phone] Dru Rodriguez DO Unavailable [phone] Encounter Details DateTypeDepartmentCare Team (Latest Contact Info)Fhjchhajyhz10/29/2025Abstract [facility] [place] [facility] [address] [place] [phone] Kolton Cao DO [address] [facility] [address] [place] [id number] Social History Tobacco UseTypesPacks/DayYears UsedDateSmoking Tobacco: NeverSmokeless [...] often do you attend roman catholic or hoahaoism services?1 to 4 times per year03/11/2023o you belong to any clubs or organizations such as roman catholic groups, unions, fraternal or athletic laura ups, or school groups?No03/11/2023How often do you attend meetings of the clubs or organizations you belong to?Never03/11/2023re you , , , , never , or living with a partner?Isbpijr5303/11/2023 AUDIT-CAnswerDate RecordedQ1: How often do you have a drink containing alcohol? Monthly or less03/11/2023Q2: How many drinks containing alcohol do you have on a typical day when you are drinking?3 or Q3: How often do you have six or more drinks on one occasion?Less than dwzwfoe1903/11/2023Overall Financial Resource Strain (CARDIA)AnswerDate RecordedHow hard is it for you to pay for the very basics like food, housing, medical care, and heating?Somewhat hard 03/11/2023HQ-2AnswerDate RecordedPatient Health Questionnaire-2 Score0 03/25/2025[facility] [place] of Occupational Health - Occupational Stress QuestionnaireAnswerDate [...] slept in ashelter (including now)?No03/11/2023Estimated Date of SbvhngfePjconwesCff70/27/2026ased on last menstrual period of 10/30/2024Sex and Gender InformationValueDate RecordedSex Assigned at LjegwVuchmn29/01/2023 1:10 PM EDTLegal DapItqycc35/15/2023 6:51 PM EDTGender HpoourxeYpirkg00/01/2023 1:10 PM EDTSexual MnyjrcbdqsqZmrruzha84/01/2023 1:10 PM EDTdocumented as of this encounter Plan of Treatment DateTypeDepartmentCare Team (Latest Contact Info)Iodbwqkschb70/07/2026 4:00 PM ESTRoutine [facility] PORTILLO [address] [place] [address] Dixie Gan, SHAWN [address] [facility] [place] [address] 06/30/2025 3:50 PM ESTRoutine NOMAislinn PORTILLO [address] [place] [address] Kolton Coa, [address] [facility] [place] [address] documented as of this encounter Goals GoalPatient Goal TypeAssociated ProblemsRecent ProgressPatient-Stated?Author Reminders Care PlanOB RemindersNoOpen Scheduling, Backgrounddocumented as of this encounter Visit Diagnoses Not on filedocumented in this encounter Additional Health Concerns Active ProblemsNoted DateDiagnosed DateOB Etpithhwd06/24/2025 documented as of this encounter Care Teams Team MemberRelationshipSpecialtyStart DateEnd Date Dru Rodriguez DO [address] [place] [address] PCP - GeneralFamily Medicine10/22/22 Dru Rodriguez DO [address] [place] [address] PCP - Medical Mulvane Hsdeczqnhr08/1/2312documented as of this encounter
[2025-06-08 18:48] VITALS: BP 114/81; PULSE 93
== END 2025-06-08 19:14 | disposition home or self-care (01) ==
LOC: FBCO 18:43 → FBC 18:45
PROVIDERS: PCP Family Medicine; Visit Provider Obstetrics & Gynecology
DX: O24.313 Unspecified pre-existing diabetes mellitus in pregnancy, third trimester (principal); Z3A.31 31 weeks gestation of pregnancy
CPT/HCPCS: 59025